=== PATIENT | male | born 1955 | race Caucasian/White ===

== ENCOUNTER 2019-01-04 20:34 | Inpatient (IN) ==
[2019-01-04] MEDS ORDERED: ALBUT/IPRATROP 3MG/0.5MG NEB 3 ML VIAL NEB STA (21:19)
[2019-01-04 21:23] LABS: Basophils # (auto) 0.04 K/uL (0-0.2); Basophils % (auto) 0.3 %; Eosinophils # (auto) 0.26 K/uL (0-0.5); Eosinophils % (auto) 1.9 %; Hematocrit (blood only) 29.7 % (42-52); Hemoglobin 9.8 g/dL (14.0-18.0); Immature Granulocytes # (auto) 0.05 K/uL (0.00-0.02); Immature Granulocytes % (auto) 0.4 %; Lymphocytes # (auto) 1.17 K/uL (1.2-3.4); Lymphocytes % (auto) 8.5 %; Mean Corpuscular Volume 93.1 fL (80-100); Mean Platelet Volume 9.9 fL (7.4-10.4); Monocytes # (auto) 1.04 K/uL (0.11-0.59); Monocytes % (auto) 7.5 %; Neutrophils # (auto) 11.25 K/uL (1.4-6.5); Neutrophils % (auto) 81.4 %; Platelet Count 245 K/uL (130-400); RDW Coefficient of Variation 14.4 % (11.5-14.5); RDW Standard Deviation 49.1 fL (36.4-46.3); Red Blood Count 3.19 M/uL (4.7-6.1); White Blood Count 13.81 K/uL (4.8-10.8)
--- NOTE | 2019-01-04 21:30 | XRay Report ---
SINGLE VIEW CHEST CLINICAL HISTORY: Dyspnea. Wheezing. Lower extremity edema FINDINGS: An AP, portable, upright chest radiograph is compared to study dated 12/22/2018. The examina tion is degraded by portable technique, apical lordotic positioning, and patient rotation. The hear t is enlarged. There is pulmonary vascular congestion. Bibasilar atelectasis is observed. No large pl eural effusion is identified. No pneumothorax is seen. The skeletal structures appear osteopenic. The bony thorax is grossly intact. IMPRESSION: Cardiomegaly with evidence of mild congestive failure. Electronically signed by: Theron Veronica M.D. 01/04/2019 9:29 PM
[2019-01-04 21:37] LABS: INR 1.1 (0.9-1.1); Prothrombin Time 11.4 Seconds (9.0-12.0)
[2019-01-04 21:39] LABS: BUN Creatinine Ratio 16.4 (10-20); Blood Urea Nitrogen 25 mg/dl (7-18); Calcium 9.6 mg/dl (8.5-10.1); Carbon Dioxide 27 mmol/L (21-32); Chloride 107 mmol/L (98-107); Creatinine Clr Calc Pharmacy 89.2 ml/min; Est GFR (African American) 55.6; Glucose 95 mg/dl (70-99); NT Pro B Type Natriuretic Pept 713 pg/ml (0-900); Sodium 143 mmol/L (136-145); Troponin I < 0.015 ng/ml (0-0.045)
[2019-01-04 21:46] LABS: Magnesium 1.5 mg/dl (1.8-2.4)
[2019-01-04] MEDS ORDERED: VANCOMYCIN CONSULT ACTIVE PRN (22:27)
[2019-01-04] MEDS ORDERED: VANCOMYCIN HCL 2,750 MG in SODIUM CHLORIDE 0.9% 500 ML IV ONE (22:27)
--- NOTE | 2019-01-04 22:27 | Ultrasound Report ---
ULTRASOUND BILATERAL LOWER EXTREMITY VENOUS CLINICAL HISTORY: Lower extremity edema. COMPARISON STUDY: No priors. TECHNIQUE: Real-time, grayscale, and color Doppler sonography of the deep veins of the right and left lower extremity was performed from the inguinal crease to the calf. Compression and augmentation wer e utilized. FINDINGS: There is no sonographic evidence of deep venous thrombosis identified in the right or left lower extremity. The common femoral, superficial femoral, and popliteal veins are patent and normally compressible bilaterally. The greater saphenous vein and the profunda femoris vein at the junction w ith the common femoral vein are clear in both legs. The visualized calf veins are patent bilaterally. Soft tissue edema is seen in the calves. IMPRESSION: There is no sonographic evidence of deep venous thrombosis identified in the right or lef t lower extremity. Electronically signed by: Theron Veronica M.D. 01/04/2019 10:26 PM
[2019-01-04] MEDS ORDERED: MAGNESIUM SULFATE / D5W 1 GM/100 ML BAG IV ONE (22:29)
--- NOTE | 2019-01-04 22:58 | Emergency Department Note ---
Entered by Haim Bourgeois acting as a scribe for History of Present Illness General Chief complaint: Edema To Extremity Stated complaint: EDEMA TO LOWER LEGS & FEET Time Seen by Provider: 01/04/19 21:11 Source: patient History of Present Illness Provider complaint: Lower extremity edema Onset (ago): month(s) 1 Location: lower extremity, left and right Pain Consistency: + constant Maximum Pain Intensity: 7 Current Pain Intensity: 7 Relieved By: + none Exacerbated By: + none Associated symptoms: + shortness of breath; no fever/chills The patient is a 63 year old male who presents to the Emergency Room with complaints of constant bilateral lower extremity swelling that started about a month ago. The patient states he also has pain in the area that he rates a 7/10. With his lower extremity symptoms he also has been somewhat short of breath. The patient notes he was seen here in the ED a couple weeks ago where he received antibiotics. He states he has been using them but he has not noticed any improvement of his symptoms. The patient denies any fevers as well as any use of blood thinners. Home Medications Home Medications Medication Instructions Recorded Confirmed Type albuterol sulfate 2 puff INHALATION QID PRN 12/22/18 01/04/19 History allopurinol 300 mg PO DAILY 12/22/18 01/04/19 History atorvastatin 40 mg PO DAILY 12/22/18 01/04/19 History bumetanide See Rx Instructions .ROUTE .COMPLEX 12/22/18 01/04/19 History calcitriol [Rocaltrol] 0.5 mcg PO DAILY 12/22/18 01/04/19 History carvedilol [Coreg] 50 mg PO BID 12/22/18 01/04/19 History cholecalciferol (vitamin D3) 4,000 unit PO DAILY 12/22/18 01/04/19 History [Vitamin D3] clonidine [Ptnodvtx-PHQ-2] 1 patch TOPICAL WK 12/22/18 01/04/19 History duloxetine [Cymbalta] 30 mg PO DAILY 12/22/18 01/04/19 History ferrous sulfate [Iron (ferrous 325 mg PO BID 12/22/18 01/04/19 History sulfate)] glipizide [Glucotrol XL] 2.5 mg PO DAILY 12/22/18 01/04/19 History hydralazine 50 mg PO TID 12/22/18 01/04/19 History minoxidil 2.5 mg PO BID 12/22/18 01/04/19 History montelukast [Singulair] 10 mg PO QPM 12/22/18 01/04/19 History potassium chloride [Klor-Con M20] 20 meq PO BID 12/22/18 01/04/19 History sertraline 100 mg PO DAILY 12/22/18 01/04/19 History tiotropium bromide [Spiriva 2 puff INHALATION DAILY 12/22/18 01/04/19 History Respimat] amoxicillin-pot clavulanate 1 tab PO Q12H 01/04/19 01/04/19 History [Augmentin] Allergies Allergy/AdvReac Type Severity Reaction Status Date / Time No Known Allergies Allergy Verified 01/04/19 21:36 Past Med/Surg History Medical History CHF (congestive heart failure) (Chronic) Diabetes (Chronic) Hyperlipidemia (Chronic) Hypertension (Chronic) Family History Other No pertinent family history in first degree relatives Social History Feels Safe at Home: Yes Smoking Status: Never smoker Review of Systems See HPI for pertinent positives & negatives. and A total of 10 systems reviewed and were otherwise negative Physical Exam Vital Signs Vital Signs - 24 hr 01/04/19 20:39 01/04/19 20:48 01/04/19 20:57 Temperature 36.6 C Temperature Source Oral Sepsis Recent Fever Within 48 Hours No Sepsis Action Taken by Nursing No Action Required Pulse Rate 79 78 83 Pulse Rate [Finger] Pulse Rate from SpO2 Sensor 78 79 Pulse Rhythm Regular Pulse Strength Normal Respiratory Rate 19 22 12 Respiratory Effort / Characteristics Non-Labored Respiratory Depth Normal Blood Pressure 171/69 H 171/69 H Blood Pressure Mean 103 103 Blood Pressure Position Lying Pulse Oximetry 97 97 95 Oxygen Delivery Method Room Air 01/04/19 21:00 01/04/19 21:28 01/04/19 21:30 Temperature Temperature Source Sepsis Recent Fever Within 48 Hours Sepsis Action Taken by Nursing Pulse Rate 81 79 Pulse Rate [Finger] 81 Pulse Rate from SpO2 Sensor 81 79 Pulse Rhythm Pulse Strength Respiratory Rate 16 20 15 Respiratory Effort / Characteristics Non-Labored Spontaneous Respiratory Depth Blood Pressure 155/63 H 163/68 H Blood Pressure Mean 93 99 Blood Pressure Position Pulse Oximetry 97 94 100 Oxygen Delivery Method Room Air 01/04/19 22:32 Temperature Temperature Source Sepsis Recent Fever Within 48 Hours Sepsis Action Taken by Nursing Pulse Rate 79 Pulse Rate [Finger] Pulse Rate from SpO2 Sensor Pulse Rhythm Pulse Strength Respiratory Rate 17 Respiratory Effort / Characteristics Respiratory Depth Blood Pressure 159/86 H Blood Pressure Mean 110 Blood Pressure Position Pulse Oximetry Oxygen Delivery Method HENT: Exam performed. - Head: Normocephalic and atraumatic. - Right Ear: External ear normal. No mastoid tenderness. - Left Ear: External ear normal. No mastoid tenderness. - Mouth/Throat: The oropharynx is clear and moist. No trismus in the jaw. No dental abscesses or uvula swelling. No oropharyngeal exudate or tonsillar abscesses. EYES: Conjunctivae and EOM are normal. Pupils are equal, round, and reactive to light. Right eye exhibits no discharge. Left eye exhibits no discharge. No scleral icterus. NECK: Normal range of motion. Neck supple. No JVD present. No spinous process tenderness present. No carotid bruit present. No rigidity. No tracheal deviation and normal range of motion present. No Brudzinski's sign and no Kernig's sign noted. CV: Normal rate, regular rhythm, normal heart sounds and intact distal pulses. There is no peripheral edema. Palpable radial pulses bue. PULM/CHEST: Effort normal and breath sounds normal. No respiratory distress. No stridor. Bilateral expiratory wheezes. He has no rales. - Chest Wall: He exhibits no tenderness. ABD: Abdomen is obese. The abdomen is soft. Bowel sounds are normal. He has no distension. No mass is present. There is no tenderness. There is no rebound, no guarding, no Horton's sign and no tenderness at McBurney's point. Rovsig negative. MUSC/SKEL: 3+ pitting edema of the bilateral lower extremities with erythema streaking up his RLE. Several scattered bullae that are actively draining on bilateral lower extremities. LYMPH: No cervical adenopathy. NEURO: He is alert and oriented to person, place, and time. He has normal strength. No cranial nerve deficit or sensory deficit. Coordination and gait normal. GCS eye subscore is 4. GCS verbal subscore is 5. GCS motor subscore is 6. Cerebellar tests wnl. PSYCH: He has a normal mood and affect. Behavior is normal. Judgment and thought content normal. Course 2110: Past medical records reviewed. The patient was evaluated in room C06, and a complete history and physical examination were performed.The patient's EMR was review which showed the patient was seen in the ED on December 22 for worsening bilateral lower extremity swelling. His potassium at this time was 2.9. His white count and lactic acid was WNL. The chest x-ray showed patchy air space consolidation at both lung bases. The patient was given a dose of Vancomycin and discharged with Doxycycline. 2231: Vital signs are stable. The patient's labs show a leukocytosis of 13.8, which is up from 10.02 during his last ED visit on December 22. The patient lactic acid is 1.3 and his magnesium is 1.5. The patient's cellulitis appears to be worsening so he will be given a dose of Vancomycin before being accepted by Dr. Chavez for further treatment. His magnesium will also be replaced. I spoke to Dr. Scott Mcelroy Hospitalist about the patient's case and he will be accepting him for further evaluation. Consultations Consultation #1: I spoke to Dr. Scott Kraus about the patient's case and he will be accepting him for further evaluation. Time: 22:26 Administered Medications Discontinued Medications Albuterol (Duoneb) 3 ml NEB NOW STA Stop: 01/04/19 21:20 Last Admin: 01/04/19 21:26 Dose: 3 ml Documented by: [id number] Medical Decision Making Medical Records Attestation: I reviewed the patient's medical records. Home Medications Current Medication List: was personally reviewed by me Laboratory Data Attestation: I reviewed the patient's lab results. Result diagrams: 01/04/19 20:53 01/04/19 20:53 Lab Results 01/04/19 01/04/19 01/04/19 Range/Units 20:53 20:53 20:53 WBC 13.81 H (4.8-10.8) K/uL RBC 3.19 L (4.7-6.1) M/uL Hgb 9.8 L (14.0-18.0) g/dL Hct 29.7 L (42-52) % MCV 93.1 (80-100) fL MCH 30.7 (25-34) pg MCHC 33.0 (32-36) g/dL RDW Std Deviation 49.1 H (36.4-46.3) fL RDW Coeff of Xin 14.4 (11.5-14.5) % Plt Count 245 (130-400) K/uL MPV 9.9 (7.4-10.4) fL Immature Gran % (Auto) 0.4 % Neut % (Auto) 81.4 % Lymph % (Auto) 8.5 % Hughes % (Auto) 7.5 % Eos % (Auto) 1.9 % Baso % (Auto) 0.3 % Immature Gran # (Auto) 0.05 H (0.00-0.02) K/uL Neut # (Auto) 11.25 H (1.4-6.5) K/uL Lymph # (Auto) 1.17 L (1.2-3.4) K/uL Hughes # (Auto) 1.04 H (0.11-0.59) K/uL Eos # (Auto) 0.26 (0-0.5) K/uL Baso # (Auto) 0.04 (0-0.2) K/uL PT (9.0-12.0) Seconds INR (0.9-1.1) APTT (21.0-31.0) Seconds PTT Ratio Sodium 143 (136-145) mmol/L Potassium 4.0 (3.5-5.1) mmol/L Chloride 107 (98-107) mmol/L Carbon Dioxide 27 (21-32) mmol/L Anion Gap 10.0 (3-11) BUN 25 H (7-18) mg/dl Creatinine 1.54 H (0.6-1.4) mg/dl Est Cr Clr Drug Dosing 89.2 ml/min Est GFR ( Amer) 55.6 Est GFR (Non-Af Amer) 48.0 BUN/Creatinine Ratio 16.4 (10-20) Glucose 95 (70-99) mg/dl Lactate 1.3 (0.4-2.0) mmol/L Calcium 9.6 (8.5-10.1) mg/dl Magnesium 1.5 L (1.8-2.4) mg/dl Troponin I < 0.015 (0-0.045) ng/ml NT-Pro-B Natriuret Pep 713 (0-900) pg/ml 01/04/19 01/04/19 Range/Units 20:53 20:53 WBC (4.8-10.8) K/uL RBC (4.7-6.1) M/uL Hgb (14.0-18.0) g/dL Hct (42-52) % MCV (80-100) fL MCH (25-34) pg MCHC (32-36) g/dL RDW Std Deviation (36.4-46.3) fL RDW Coeff of Xin (11.5-14.5) % Plt Count (130-400) K/uL MPV (7.4-10.4) fL Immature Gran % (Auto) % Neut % (Auto) % Lymph % (Auto) % Hughes % (Auto) % Eos % (Auto) % Baso % (Auto) % Immature Gran # (Auto) (0.00-0.02) K/uL Neut # (Auto) (1.4-6.5) K/uL Lymph # (Auto) (1.2-3.4) K/uL Hughes # (Auto) (0.11-0.59) K/uL Eos # (Auto) (0-0.5) K/uL Baso # (Auto) (0-0.2) K/uL PT 11.4 (9.0-12.0) Seconds INR 1.1 (0.9-1.1) APTT 27.0 (21.0-31.0) Seconds PTT Ratio 1.0 Sodium (136-145) mmol/L Potassium (3.5-5.1) mmol/L Chloride (98-107) mmol/L Carbon Dioxide (21-32) mmol/L Anion Gap (3-11) BUN (7-18) mg/dl Creatinine (0.6-1.4) mg/dl Est Cr Clr Drug Dosing ml/min Est GFR ( Amer) Est GFR (Non-Af Amer) BUN/Creatinine Ratio (10-20) Glucose (70-99) mg/dl Lactate (0.4-2.0) mmol/L Calcium (8.5-10.1) mg/dl Magnesium (1.8-2.4) mg/dl Troponin I Cancelled (0-0.045) ng/ml NT-Pro-B Natriuret Pep Cancelled (0-900) pg/ml Imaging Data Radiologist's Impression: Radiology results as stated below per my review and the radiologist's interpretation: SINGLE VIEW CHEST CLINICAL HISTORY: Dyspnea. Wheezing. Lower extremity edema FINDINGS: An AP, portable, upright chest radiograph is compared to study dated 12/22/2018. The examination is degraded by portable technique, apical lordotic positioning, and patient rotation. The heart is enlarged. There is pulmonary vascular congestion. Bibasilar atelectasis is observed. No large pleural effusion is identified. No pneumothorax is seen. The skeletal structures appear osteopenic. The bony thorax is grossly intact. IMPRESSION: Cardiomegaly with evidence of mild congestive failure. Electronically signed by: Theron Veronica M.D. 01/04/2019 9:29 PM ULTRASOUND BILATERAL LOWER EXTREMITY VENOUS CLINICAL HISTORY: Lower extremity edema. COMPARISON STUDY: No priors. TECHNIQUE: Real-time, grayscale, and color Doppler sonography of the deep veins of the right and left lower extremity was performed from the inguinal crease to the calf. Compression and augmentation were utilized. FINDINGS: There is no sonographic evidence of deep venous thrombosis identified in the right or left lower extremity. The common femoral, superficial femoral, and popliteal veins are patent and normally compressible bilaterally. The greater saphenous vein and the profunda femoris vein at the junction with the common femoral vein are clear in both legs. The visualized calf veins are patent bilaterally. Soft tissue edema is seen in the calves. IMPRESSION: There is no sonographic evidence of deep venous thrombosis identified in the right or left lower extremity. Electronically signed by: Theron Veronica M.D. 01/04/2019 10:26 PM ECG Data Attestation: I personally reviewed and interpreted this ECG as follows: Indication: SOB/dyspnea Rate (beats per minute): 79 Rhythm: normal sinus Findings: + other ([place] of 178, QRS of 140, QTC of 488, Bifascicular block present); no ST depression and no ST elevation Blood Pressure Blood Pressure Findings: Elevated blood pressure Blood Pressure Disposition: further management by hospitalist [place] Narrative 2110: Past medical records reviewed. The patient was evaluated in room C06, and a complete history and physical examination were performed.The patient's EMR was review which showed the patient was seen in the ED on December 22 for worsening bilateral lower extremity swelling. His potassium at this time was 2.9. His white count and lactic acid was WNL. The chest x-ray showed patchy air space consolidation at both lung bases. The patient was given a dose of Vancomycin and discharged with Doxycycline. 2232: Vital signs are stable. The patient's labs show a leukocytosis of 13.8, which is up from 10.02 during his last ED visit on December 22. The patient lactic acid is 1.3 and his magnesium is 1.5. The patient's cellulitis appears to be worsening so he will be given a dose of Vancomycin before being accepted by Dr. Chavez for further treatment. His magnesium will also be replaced. I spoke to Dr. Chavez - [facility] Hospitalist about the patient's case and he will be accepting him for further evaluation. Impression & Plan Bilateral cellulitis of lower leg, Failure of outpatient treatment Discharge Plan Visit Data Chief Complaint: Edema To Extremity Stated Complaint: EDEMA TO LOWER LEGS & FEET ED Provider: Severiano Bhakta Discharge Problem: Bilateral cellulitis of lower leg, Failure of outpatient treatment Patient Disposition: Being Evaluated by Hospitalist Forms Stand Alone Forms: My [facility] Prescriptions Prescriptions: No Action atorvastatin 40 mg Tablet 40 mg PO DAILY RF: 0 carvedilol [Coreg] 25 mg tablet 50 mg PO BID RF: 0 sertraline 100 mg Tablet 100 mg PO DAILY RF: 0 hydralazine 25 mg Tablet 50 mg PO TID RF: 0 minoxidil 2.5 mg tablet 2.5 mg PO BID RF: 0 potassium chloride [Klor-Con M20] 20 mEq tablet,ER particles/crystals 20 meq PO BID RF: 0 glipizide [Glucotrol XL] 2.5 mg tablet extended release 24hr 2.5 mg PO DAILY RF: 0 ferrous sulfate [Iron (ferrous sulfate)] 325 mg (65 mg iron) tablet 325 mg PO BID RF: 0 bumetanide 1 mg tablet See Rx Instructions .ROUTE .COMPLEX RF: 0 montelukast [Singulair] 10 mg tablet 10 mg PO QPM RF: 0 allopurinol 300 mg Tablet 300 mg PO DAILY RF: 0 clonidine [Nppsaifv-JEV-7] 0.3 mg/24 hr patch weekly 1 patch topical WK RF: 0 albuterol sulfate 90 mcg/actuation Hfa Aerosol Inhaler 2 puff INHALATION QID PRN (Reason: Shortness Of Breath Or Wheezing) RF: 0 calcitriol [Rocaltrol] 0.25 mcg capsule 0.5 mcg PO DAILY RF: 0 duloxetine [Cymbalta] 30 mg capsule,delayed release(DR/EC) 30 mg PO DAILY RF: 0 cholecalciferol (vitamin D3) [Vitamin D3] 1,000 unit Tablet 4,000 unit PO DAILY RF: 0 Spiriva Respimat 1.25 mcg/actuation mist 2 puff inhalation DAILY RF: 0 amoxicillin-pot clavulanate [Augmentin] 875-125 mg Tablet 1 tab PO Q12H RF: 0 Referrals Referrals: Comfort Almanzar PA-C [Primary Care Provider] - The scribe's documentation has been prepared under my direction and personally reviewed by me in its entirety. I confirm that the note above accurately reflects all work, treatment, procedures, and medical decision making performed by me.
[2019-01-05] MEDS ORDERED: PIPERACILLIN/TAZOBACTAM 4.5 GM in DEXTROSE 5% 100 ML IV ONE (00:42)
[2019-01-05] MEDS ORDERED: ACETAMINOPHEN 325 MG TAB PO PRN (00:42)
[2019-01-05] MEDS ORDERED: VANCOMYCIN CONSULT ACTIVE PRN (00:42)
[2019-01-05] MEDS ORDERED: ALBUTEROL HFA 8 GM INHALER INH PRN (00:42)
[2019-01-05] MEDS ORDERED: VANCOMYCIN HCL 1,000 MG in SODIUM CHLORIDE 0.9% 250 ML IV SCH (00:42)
[2019-01-05] MEDS ORDERED: PIPERACILL/TAZOBAC CONSULT ACTIVE PRN (00:42)
[2019-01-05] MEDS ORDERED: ONDANSETRON INJ 2 MG/ML 2 ML VIAL IV PRN (00:42)
[2019-01-05] MEDS ORDERED: POLYETHYLENE (MIRALAX) 17 GM PACK PO PRN (00:42)
[2019-01-05] MEDS: CHECK CLONIDINE PATCH PLACEMENT SCH ×3 (01:30→16:07)
--- NOTE | 2019-01-05 02:04 | History and Physical Report ---
DATE OF ADMISSION: 01/04/2019 CHIEF COMPLAINT: Lower extremity edema and pain in the heels. HISTORY OF PRESENT ILLNESS: This is a 63-year-old male with past medical history significant for morbid obesity, obstructive sleep apnea, but noncompliant with CPAP, diabetes, hypertension, nonobstructive coronary artery disease, hyperlipidemia, depression, who comes because of ongoing edema and erythema on the lower extremity. The patient says he has always had lower extremity edema, but since last 1 month blisters are forming and they are bursting and getting a lot of pain and also he walks with the help of cane at home, he lives alone, his heels are hurting. He was seen in the ER on 12/22/2018 and he was given a dose of vancomycin and discharged on doxycycline and advised to follow with wound care. He is from [facility]. He says he follows with wound care there, but is not getting better. He came back to the ER today in ER white count is 13,000. His hemodynamics are stable. The patient denies any headache, no blurred vision, no earache, no runny nose, no sore throat, no difficulty swallowing. Appetite is okay. Sleeps in a chair. He says using CPAP causes congestion and not using it. Denies shortness of breath. No cough, no fever, no chills, no nausea, no abdominal pain. Normal bowel and bladder movements. No blood in the stools, no black stools, no hematuria, no burning micturitions. Patient lives alone, but he has nurses who come and help him. ALLERGIES: No known drug allergies. PAST MEDICAL HISTORY: As mentioned above. PAST SURGICAL HISTORY: The patient had arthroscopy of the left knee. MEDICATIONS: The patient is on albuterol 2 puffs inhalation q.i.d. p.r.n., allopurinol 300 mg p.o. daily, Augmentin 1 tablet b.i.d., atorvastatin 40 mg p.o. daily, Bumex as directed, calcitriol 0.5 mcg p.o. daily, Coreg 50 mg p.o. b.i.d., vitamin D 4000 units p.o. daily, clonidine patch topically weekly, Cymbalta 30 mg p.o. daily, ferrous sulfate 325 mg p.o. b.i.d., glipizide 2.5 mg p.o. daily, hydralazine 50 mg p.o. t.i.d., minoxidil 2.5 mg p.o. b.i.d., Singulair 10 mg p.o. daily, potassium chloride 20 mEq p.o. b.i.d., sertraline 100 mg p.o. daily, Spiriva 2 puffs inhalation daily. FAMILY HISTORY: Significant for father of throat cancer, mother had cancer. SOCIAL HISTORY: Denies smoking. Alcohol occasional. Lives alone. REVIEW OF SYMPTOMS: As per HPI. Rest of review of symptoms negative. PHYSICAL EXAMINATION: GENERAL: The patient is morbidly obese, not in acute distress. VITAL SIGNS: Temperature 36.6, pulse 80, respiratory rate 21, blood pressure 140/59, oxygen 100% on room air. HEENT: No pallor, no icterus. Pupils equal, round, reactive to light. NECK: No JVD, no neck masses, no carotid bruits. CARDIOVASCULAR: S1, S2 heard, regular rate and rhythm, no murmur, no gallop. RESPIRATORY SYSTEM: Normal AP diameter. No accessory muscle use. Bilateral occasional wheezing, no crackles. ABDOMEN: Soft, bowel sounds present, nontender. No distention. CENTRAL NERVOUS SYSTEM: Cranial nerves II-XII grossly intact, nonfocal. EXTREMITIES: Bilateral lower extremity edema and erythema seen with blisters and gross edema and some fluid collection in his bilateral heels. LABORATORY DATA: WBC 13.8, hemoglobin 10.8, hematocrit 29.7, platelets 245. PT 11.4, INR 1.1, APTT 27. Sodium 143, potassium 4, chloride 107, carbon dioxide 27, BUN 25, creatinine 1.5, serum glucose 95, lactate 1.3, calcium 9.6, magnesium 1.5. Troponin I less than 0.015. BNP is 713. IMAGING DATA: Venous Doppler, no DVT. Chest x-ray, cardiomegaly with evidence of mild congestive failure. ASSESSMENT AND PLAN: This is a 63-year-old male who presents with lower extremity edema and cellulitis. 1. Bilateral lower extremity cellulitis. The patient has history of diabetes, possible congestive heart failure. Has some blisters and also some fluid collections in bilateral heels. Failed outpatient treatment with doxycycline. We will place him on IV vancomycin, IV Zosyn. Follow the cultures. We will also consult surgery for possible drainage of his fluid collection in the bilateral heels and ID for help with antibiotics and follow the response. Will also consult wound care. The patient may need to go to a custodial or home health on discharge. Social service to help with discharge planning. 2. Morbid obesity, obstructive sleep apnea, noncompliant with CPAP. We will monitor in the hospital, needs counseling. 3. Diabetes. Hold his home p.o. medication. Placed him on sliding scale insulin and Lantus and follow the blood sugars. The patient is currently n.p.o. for possible procedures. 4. History of nonobstructive coronary artery disease. The patient is on statin and Coreg. 5. History of hypertension. Continue his clonidine patch, Coreg, diuretics, hydralazine, and minoxidil. Monitor the blood pressure. 6. Possible history of congestive heart failure. The patient is on Bumex and Coreg. The patient might have right-sided heart failure from his obstructive sleep apnea. We will follow the echocardiogram. I's and O's. 7. Acute kidney injury on chronic kidney stage III. Last in the ER creatinine was 1.3, presently creatinine is 1.5. He is on high dose of Bumex. We will monitor the labs in a.m. and adjust the Bumex. 8. Deep venous thrombosis prophylaxis. Heparin subQ for now. 9. Disposition: Admit to medical floor. Level 1 full code. PT and OT prior to discharge. Social Service to help with discharge planning. HOMERO
[2019-01-05 06:11] LABS: Basophils # (auto) 0.01 K/uL (0-0.2); Basophils % (auto) 0.1 %; Eosinophils # (auto) 0.15 K/uL (0-0.5); Eosinophils % (auto) 1.4 %; Hematocrit (blood only) 29.2 % (42-52); Hemoglobin 9.4 g/dL (14.0-18.0); Immature Granulocytes # (auto) 0.04 K/uL (0.00-0.02); Immature Granulocytes % (auto) 0.4 %; Lymphocytes # (auto) 0.89 K/uL (1.2-3.4); Lymphocytes % (auto) 8.6 %; Mean Corpuscular Hgb Conc 32.2 g/dL (32-36); Mean Platelet Volume 9.6 fL (7.4-10.4); Monocytes # (auto) 0.74 K/uL (0.11-0.59); Monocytes % (auto) 7.1 %; Neutrophils # (auto) 8.55 K/uL (1.4-6.5); Neutrophils % (auto) 82.4 %; Platelet Count 187 K/uL (130-400); RDW Coefficient of Variation 14.6 % (11.5-14.5); RDW Standard Deviation 49.6 fL (36.4-46.3); Red Blood Count 3.14 M/uL (4.7-6.1); White Blood Count 10.38 K/uL (4.8-10.8)
[2019-01-05] MEDS: HEPARIN SOD 5,000 UNIT/0.5 ML VIAL SQ SCH ×3 (06:11→20:52)
[2019-01-05] MEDS: PIPERACILLIN/TAZOBACTAM 4.5 GM in DEXTROSE 5% 100 ML IV SCH ×3 (06:12→22:23)
[2019-01-05 06:51] LABS: BUN Creatinine Ratio 16.5 (10-20); Calcium 8.9 mg/dl (8.5-10.1); Creatinine Clr Calc Pharmacy 100.4 ml/min; Est GFR (African American) 63.5; Est GFR (Non-African American) 54.8; Estimated Average Glucose 146 mg/dl; Hemoglobin A1C 6.7 % (4.5-5.6); Magnesium 1.7 mg/dl (1.8-2.4); Potassium 3.5 mmol/L (3.5-5.1)
[2019-01-05] MEDS ORDERED: MAGNESIUM SULFATE / D5W 1 GM/100 ML BAG IV ONE (07:01)
[2019-01-05] MEDS ORDERED: ALBUTEROL 0.5% NEB SOLN 2.5 MG/0.5 ML VIAL NEB STA (08:00)
--- NOTE | 2019-01-05 08:07 | Surgery Consultation ---
Date of Consultation January 05, 2019 Assessment & Plan (1) Bilateral cellulitis of lower le year-old morbid obese male who presented to emergency department with increasing swelling and pain of bilateral lower extremities for 1 month. Presented to emergency department on December 22 with same symptoms and given prescription for doxycycline at the time. States pain and swelling has been increasing, unable to walk given pain. Multiple blisters that drain. Occasional shortness of breath with activity. CXR showing cardiomegaly with mild congestive failure. On diuretic therapy. Examination today shows extensive bilateral lower extremity swelling, induration, and erythema consistent with cellulitis. Multiple fluid filled blisters and a open blisters with serous drainage. Fluid collections of bilateral ankles and heels likely due to edema. No fluctuance to suggest abscess. Plan: No surgical indication for I&D of bilateral ankles/heels. Fluid likely secondary to edema and cellulitis. Unlikely of abscess. Recommend continue IV antibiotics for cellulitis Management of CHF and fluid balance to help with lower extremity edema Recommend elevating legs if patient can tolerate since unable to apply compression stockings due to pain and blisters Wound care/wound nurse consult Dr. Ivory has seen and examined patient, agrees with above. Supervising Physician Co-Signing Physician Notes I have interviewed this patient and examined him and I agree with the above note. The patient has blisters but they do not appear to have purulent drainage. I do not feel there is any need for surgical intervention at this time and agree with conservative management including intravenous antibiotics. History of Present Illness Reason for Consultation: Bilateral lower extremity edema, cellulitis, fluid collections of bilateral heels Requesting Physician: Dr. Chavez Attending Physician: Ori Zhao MD History of Present Illness Haim is a 63 year-old obese male who presented to emergency department with increasing bilateral lower extremity swelling and pain. Haim states the swelling started to increase and blisters started forming about 1 month ago. States he has had swelling of his legs prior but not this bad. States it was causing burning sensation down his legs into his feet and caused difficulty walking. States he takes Bumex twice a day. Also states he has noticed shortness of breath along with the swelling, more so on activity. Not at rest. Has history of obstructive sleep apnea, but noncompliant with CPAP, diabetes, hypertension, nonobstructive coronary artery disease, hyperlipidemia, depression. Chest xray showing cardiomegaly and mild congestive failure. He was seen in emergency department on December 22 for increasing bilateral lower ext remity pain and swelling. Was placed on doxycycline and sent home. States the pain has not been getting better. Allergies Allergy/AdvReac Type Severity Reaction Status Date / Time No Known Allergies Allergy Verified 01/04/19 21:36 Home Medications Home Medications Medication Instructions Recorded Confirmed Type albuterol sulfate 2 puff INHALATION QID PRN 12/22/18 01/04/19 History allopurinol 300 mg PO DAILY 12/22/18 01/04/19 History atorvastatin 40 mg PO DAILY 12/22/18 01/04/19 History bumetanide See Rx Instructions .ROUTE .COMPLEX 12/22/18 01/04/19 History calcitriol [Rocaltrol] 0.5 mcg PO DAILY 12/22/18 01/04/19 History carvedilol [Coreg] 50 mg PO BID 12/22/18 01/04/19 History cholecalciferol (vitamin D3) 4,000 unit PO DAILY 12/22/18 01/04/19 History [Vitamin D3] clonidine [Cfrmligq-KUR-8] 1 patch TOPICAL WK 12/22/18 01/04/19 History duloxetine [Cymbalta] 30 mg PO DAILY 12/22/18 01/04/19 History ferrous sulfate [Iron (ferrous 325 mg PO BID 12/22/18 01/04/19 History sulfate)] glipizide [Glucotrol XL] 2.5 mg PO DAILY 12/22/18 01/04/19 History hydralazine 50 mg PO TID 12/22/18 01/04/19 History minoxidil 2.5 mg PO BID 12/22/18 01/04/19 History montelukast [Singulair] 10 mg PO QPM 12/22/18 01/04/19 History potassium chloride [Klor-Con M20] 20 meq PO BID 12/22/18 01/04/19 History sertraline 100 mg PO DAILY 12/22/18 01/04/19 History tiotropium bromide [Spiriva 2 puff INHALATION DAILY 12/22/18 01/04/19 History Respimat] amoxicillin-pot clavulanate 1 tab PO Q12H 01/04/19 01/04/19 History [Augmentin] Patient History Medical History Coronary artery disease (Chronic) Depression (Chronic) Morbid obesity (Chronic) Sleep apnea (Chronic) CHF (congestive heart failure) (Chronic) Diabetes (Chronic) Hyperlipidemia (Chronic) Hypertension (Chronic) Family History Other No pertinent family history in first degree relatives Social History Preferred Language: Indonesian Communication Ability: Effective 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 Beliefs That Will Affect Care: None marital status: Single Current Living Situation: Alone Feels Safe at Home: Yes Safety Concerns: Feels Safe At This Time Smoking Status: Never smoker Review of Systems Review of Systems: All systems reviewed & are unremarkable except as noted in HPI & below Physical Exam Constitutional: WD/WN, vitals as above + morbidly obese sleeping upon entering room Respiratory: normal respiratory effort, lungs clear to auscultation no labored breathing, no retractions and does not use accessory muscles Cardiovascular: RRR, no murmur, no edema Musculoskeletal: Bilateral lower extremities: + 2 pitting edema of bilateral extremities with cellulitis up to mid culver and multiple fluid filled blisters. There is induration present. Fluid collections of the bilateral ankles/into heels with induration however no fluctuance. Skin: per musculoskeletal section of the lower extremities Psychiatric: Orientation: alert and oriented x 3 Affect: + flat affect Results & Data Vital Signs (Past 12 Hours) Vital Signs Temp Pulse Pulse Resp BP BP Pulse Ox 01/05/19 07:20 36.8 C 76 20 176/66 H 98 01/05/19 00:31 36.6 C 81 16 151/68 H 98 01/05/19 00:30 36.6 C 81 16 151/68 H 98 01/05/19 00:12 78 19 98 01/04/19 23:00 80 21 140/59 L 01/04/19 22:32 79 17 159/86 H 01/04/19 21:30 79 15 163/68 H 100 01/04/19 21:28 81 20 94 01/04/19 21:00 81 16 155/63 H 97 01/04/19 20:57 36.6 C 83 12 171/69 H 95 01/04/19 20:48 78 22 97 01/04/19 20:39 79 19 171/69 H 97 Laboratory Results 01/05/19 01/05/19 01/05/19 Range/Units 07:52 05:26 05:26 WBC (4.8-10.8) K/uL RBC (4.7-6.1) M/uL Hgb (14.0-18.0) g/dL Hct (42-52) % MCV (80-100) fL MCH (25-34) pg MCHC (32-36) g/dL RDW Std Deviation (36.4-46.3) fL RDW Coeff of Xin (11.5-14.5) % Plt Count (130-400) K/uL MPV (7.4-10.4) fL Immature Gran % (Auto) % Neut % (Auto) % Lymph % (Auto) % Gregory % (Auto) % Eos % (Auto) % Baso % (Auto) % Immature Gran # (Auto) (0.00-0.02) K/uL Neut # (Auto) (1.4-6.5) K/uL Lymph # (Auto) (1.2-3.4) K/uL Gregory # (Auto) (0.11-0.59) K/uL Eos # (Auto) (0-0.5) K/uL Baso # (Auto) (0-0.2) K/uL PT (9.0-12.0) Seconds INR (0.9-1.1) APTT (21.0-31.0) Seconds PTT Ratio Sodium 142 (136-145) mmol/L Potassium 3.5 (3.5-5.1) mmol/L Chloride 106 (98-107) mmol/L Carbon Dioxide 29 (21-32) mmol/L Anion Gap 7.0 (3-11) BUN 23 H (7-18) mg/dl Creatinine 1.38 (0.6-1.4) mg/dl Est Cr Clr Drug Dosing 100.4 ml/min Est GFR ( Amer) 63.5 Est GFR (Non-Af Amer) 54.8 BUN/Creatinine Ratio 16.5 (10-20) Glucose 112 H (70-99) mg/dl POC Glucose 135 H (70-99) Estimat Average Glucose 146 mg/dl Hemoglobin A1c 6.7 H (4.5-5.6) % Lactate (0.4-2.0) mmol/L Calcium 8.9 (8.5-10.1) mg/dl Magnesium 1.7 L (1.8-2.4) mg/dl Troponin I (0-0.045) ng/ml NT-Pro-B Natriuret Pep (0-900) pg/ml 01/05/19 01/04/19 01/04/19 Range/Units 05:26 20:53 20:53 WBC 10.38 (4.8-10.8) K/uL RBC 3.14 L (4.7-6.1) M/uL Hgb 9.4 L (14.0-18.0) g/dL Hct 29.2 L (42-52) % MCV 93.0 (80-100) fL MCH 29.9 (25-34) pg MCHC 32.2 (32-36) g/dL RDW Std Deviation 49.6 H (36.4-46.3) fL RDW Coeff of Xin 14.6 H (11.5-14.5) % Plt Count 187 (130-400) K/uL MPV 9.6 (7.4-10.4) fL Immature Gran % (Auto) 0.4 % Neut % (Auto) 82.4 % Lymph % (Auto) 8.6 % Gregory % (Auto) 7.1 % Eos % (Auto) 1.4 % Baso % (Auto) 0.1 % Immature Gran # (Auto) 0.04 H (0.00-0.02) K/uL Neut # (Auto) 8.55 H (1.4-6.5) K/uL Lymph # (Auto) 0.89 L (1.2-3.4) K/uL Gregory # (Auto) 0.74 H (0.11-0.59) K/uL Eos # (Auto) 0.15 (0-0.5) K/uL Baso # (Auto) 0.01 (0-0.2) K/uL PT 11.4 (9.0-12.0) Seconds INR 1.1 (0.9-1.1) APTT 27.0 (21.0-31.0) Seconds PTT Ratio 1.0 Sodium (136-145) mmol/L Potassium (3.5-5.1) mmol/L Chloride (98-107) mmol/L Carbon Dioxide (21-32) mmol/L Anion Gap (3-11) BUN (7-18) mg/dl Creatinine (0.6-1.4) mg/dl Est Cr Clr Drug Dosing ml/min Est GFR ( Amer) Est GFR (Non-Af Amer) BUN/Creatinine Ratio (10-20) Glucose (70-99) mg/dl POC Glucose (70-99) Estimat Average Glucose mg/dl Hemoglobin A1c (4.5-5.6) % Lactate (0.4-2.0) mmol/L Calcium (8.5-10.1) mg/dl Magnesium (1.8-2.4) mg/dl Troponin I Cancelled (0-0.045) ng/ml NT-Pro-B Natriuret Pep Cancelled (0-900) pg/ml 01/04/19 01/04/19 01/04/19 Range/Units 20:53 20:53 20:53 WBC 13.81 H (4.8-10.8) K/uL RBC 3.19 L (4.7-6.1) M/uL Hgb 9.8 L (14.0-18.0) g/dL Hct 29.7 L (42-52) % MCV 93.1 (80-100) fL MCH 30.7 (25-34) pg MCHC 33.0 (32-36) g/dL RDW Std Deviation 49.1 H (36.4-46.3) fL RDW Coeff of Xin 14.4 (11.5-14.5) % Plt Count 245 (130-400) K/uL MPV 9.9 (7.4-10.4) fL Immature Gran % (Auto) 0.4 % Neut % (Auto) 81.4 % Lymph % (Auto) 8.5 % Gregory % (Auto) 7.5 % Eos % (Auto) 1.9 % Baso % (Auto) 0.3 % Immature Gran # (Auto) 0.05 H (0.00-0.02) K/uL Neut # (Auto) 11.25 H (1.4-6.5) K/uL Lymph # (Auto) 1.17 L (1.2-3.4) K/uL Gregory # (Auto) 1.04 H (0.11-0.59) K/uL Eos # (Auto) 0.26 (0-0.5) K/uL Baso # (Auto) 0.04 (0-0.2) K/uL PT (9.0-12.0) Seconds INR (0.9-1.1) APTT (21.0-31.0) Seconds PTT Ratio Sodium 143 (136-145) mmol/L Potassium 4.0 (3.5-5.1) mmol/L Chloride 107 (98-107) mmol/L Carbon Dioxide 27 (21-32) mmol/L Anion Gap 10.0 (3-11) BUN 25 H (7-18) mg/dl Creatinine 1.54 H (0.6-1.4) mg/dl Est Cr Clr Drug Dosing 89.2 ml/min Est GFR ( Amer) 55.6 Est GFR (Non-Af Amer) 48.0 BUN/Creatinine Ratio 16.4 (10-20) Glucose 95 (70-99) mg/dl POC Glucose (70-99) Estimat Average Glucose mg/dl Hemoglobin A1c (4.5-5.6) % Lactate 1.3 (0.4-2.0) mmol/L Calcium 9.6 (8.5-10.1) mg/dl Magnesium 1.5 L (1.8-2.4) mg/dl Troponin I < 0.015 (0-0.045) ng/ml NT-Pro-B Natriuret Pep 713 (0-900) pg/ml Diagnostic Findings SINGLE VIEW CHEST CLINICAL HISTORY: Dyspnea. Wheezing. Lower extremity edema FINDINGS: An AP, portable, upright chest radiograph is compared to study dated 12/22/2018. The examination is degraded by portable technique, apical lordotic positioning, and patient rotation. The heart is enlarged. There is pulmonary vascular congestion. Bibasilar atelectasis is observed. No large pleural effusion is identified. No pneumothorax is seen. The skeletal structures appear osteopenic. The bony thorax is grossly intact. IMPRESSION: Cardiomegaly with evidence of mild congestive failure.
[2019-01-05] MEDS ORDERED: FUROSEMIDE 40 MG/4 ML VIAL IV STA (08:20)
[2019-01-05] MEDS: FERROUS SULFATE 325 MG TAB PO SCH ×2 (08:24→20:53)
[2019-01-05] MEDS: CHOLECALCIFEROL 1,000 UNITS TAB PO SCH (08:24)
[2019-01-05] MEDS: MAGNESIUM OXIDE 400 MG TAB PO SCH (08:24)
[2019-01-05] MEDS: CARVEDILOL 25 MG TAB PO SCH ×2 (08:25→20:55)
[2019-01-05] MEDS: ATORVASTATIN 40 MG TAB PO SCH (08:25)
[2019-01-05] MEDS: POTASSIUM CHLORIDE 20 MEQ TABCR PO SCH ×2 (08:25→20:53)
[2019-01-05] MEDS: ALLOPURINOL 300 MG TAB PO SCH (08:25)
[2019-01-05] MEDS: CALCITRIOL 0.25 MCG CAPSULE PO SCH (08:25)
[2019-01-05] MEDS: DULOXETINE HCL 30 MG CAP PO SCH (08:26)
[2019-01-05] MEDS: MINOXIDIL 2.5 MG TAB PO SCH ×2 (08:26→20:52)
[2019-01-05] MEDS: SERTRALINE HCL 100 MG TABLET PO SCH (08:26)
[2019-01-05] MEDS: TIOTROPIUM BROMIDE 5 PUFF/90 MCG INH INH SCH (08:27)
[2019-01-05] MEDS ORDERED: FUROSEMIDE 40 MG in SYRINGE 0 ML IV ONE (08:30)
[2019-01-05] MEDS: INSULIN ASPART 100 UNITS/ML 3 ML PEN SC SCH ×4 (08:30→21:00)
--- NOTE | 2019-01-05 08:32 | Pharmacy Report ---
Pharmacy Abx Initial Consult - Date of Service January 05, 2019 - Pharmacy Dosing Scope Date of Consult: 01/05/19 Consultation requested by: Dr. Chavez Pharmacy is consulted to initiate vancomycin and Zosyn IV dosing therapy, order appropriate labs and adjust drug dose/frequency. - Subjective The patient is a 63 year old M admitted on 01/04/19 23:05 with lower extremity cellulitis. - Objective Height: 6 ft 1 in Weight: 195.8 kg Vital Signs (Past 12hrs): Vital Signs Temp Pulse Pulse Resp BP BP Pulse Ox 01/05/19 07:20 36.8 C 76 20 176/66 H 98 01/05/19 00:31 36.6 C 81 16 151/68 H 98 01/05/19 00:30 36.6 C 81 16 151/68 H 98 01/05/19 00:12 78 19 98 01/04/19 23:00 80 21 140/59 L 01/04/19 22:32 79 17 159/86 H 01/04/19 21:30 79 15 163/68 H 100 01/04/19 21:28 81 20 94 01/04/19 21:00 81 16 155/63 H 97 01/04/19 20:57 36.6 C 83 12 171/69 H 95 01/04/19 20:48 78 22 97 01/04/19 20:39 79 19 171/69 H 97 Lab Results (24hrs): Laboratory Tests (24 Hours) 01/05/19 01/05/19 01/04/19 05:26 05:26 20:53 WBC 10.38 Neut # (Auto) 8.55 H Creatinine 1.38 1.54 H Est Cr Clr Drug Dosing 100.4 89.2 01/04/19 20:53 WBC 13.81 H Neut # (Auto) 11.25 H Creatinine Est Cr Clr Drug Dosing Micro Results: 01/04/19 20:53 Aerobic Blood Culture - Pending Blood Anaerobic Blood Culture - Pending 01/04/19 22:59 Aerobic Blood Culture - Pending Blood Anaerobic Blood Culture - Pending - Risk Factors for Resistance * Antimicrobial use within the last 90 days (doxycycline) * follows with wound clinic for legs - Assessment & Plan Assessment 63 year old M admitted with worsening cellulitis. Seen in ED on 12/22/18 with cellulitis and discharged on doxycycline. Plan vancomycin/Zosyn for treatment of outpatient-failed cellulitis Vancomycin IV * Estimated PK Parameters: Vd 0.54 L/kg, Malvin 0.087 hr-1, t1/2 7.9 hr * Loading dose: 2750 mg (14.2 mg/kg) * Maintenance dose: 2500 mg IV (13.5 mg/kg) every 12 hours - will start 9 hours after load since low loading dose given. Patient started on Lasix 40 mg IV q8 hours this morning so concerned for recurrent kidney injury. Utilize wider dosing interval for now. * Goal trough level for cellulitis, failed outpatient therapy : 15 to 20 mcg/mL * Trough ordered for 01/06/19 * A less than traditional dose has been selected due to likelihood of drug accumulation in obese patient. Piperacillin/tazobactam * 4.5 g bolus administered over 30 minutes, then 4.5 g IV extended infusion ever y 8 hours for CrCl greater than 20 mL/min * Aggressive dosing selected due to BMI 35 or more. Verified weight with nursing as patient is up 10 kg since ER visit 2 weeks prior. Pharmacy will continue to follow and will adjust dose/frequency as necessary. Thank you.
[2019-01-05] MEDS ORDERED: INSULIN GLARGINE SOLOSTAR 100 UNITS/ML 3 ML PEN SC SCH (09:00)
[2019-01-05] MEDS ORDERED: TIOTROPIUM BROMIDE 5 PUFF/90 MCG INH INH SCH (09:00)
[2019-01-05] MEDS ORDERED: BUMETANIDE 1 MG TAB PO SCH ×2 (09:00→14:00)
--- NOTE | 2019-01-05 09:24 | Hospitalist Progress Note ---
Date of Service January 05, 2019 Assessment & Plan (1) Bilateral cellulitis of lower leg: -patient with bilateral lower extremity and blisters of the legs with clear fluid drainage -had reportedly failed outpatient treatment of the legs cellulitis with doxycycline -and empirically placed on Vancomycin and Zosyn for empiric coverage of possible underlying infection of the legs, will continue these antibiotics at this time and await blood cultures -however a significant part of symptoms such as the swelling relates to patient's obesity and likely venous insufficiency, Echocardiogram with normal systolic function with right ventricular systolic blood pressure elevated to 40 to 50 mmHg -patient takes bumex at home, will switch to Lasix 40 mg IV q8 hours while inpatient -wound care -There is no sonographic evidence of deep venous thrombosis identified in the right or left lower extremity. -general surgery evaluation requested but at this time, treatment likely non- operative Acute kidney injury on chronic kidney stage III -will expect creatinine to rise as diuretics being increased Morbid Obesity with BMI 57 -low fat, diabetes diet -PT/OT evaluations Obstructive sleep apnea -noncompliant with CPAP reported -will try CPAP at night in the hospital if patient agrees History of nonobstructive coronary artery disease Echocardiogram with normal systolic function elevated right ventricular systolic blood pressure -with right ventricular systolic blood pressure elevated to 40 to 50 mmHg -on statin and Coreg Hypertension -clonidine patch, Coreg, diuretics, hydralazine, and minoxidil Diabetes mellitus controlled without 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 Deep venous thrombosis prophylaxis. Heparin subc Full Code Subjective Obese male patient laying on bed. Has expiratory wheezes which patient reports is rather chronic. reports albuterol use at home for asthma. no acute distress. no chest pain. no palpitations, no abdomen pain. bilateral lower extremity swelling with blistering of the skin and seepage of clear fluids from the legs Physical Exam Constitutional: + obese Eyes: PERRL, conjunctivae normal, anicteric sclerae EOM intact bilaterally ENMT: external ear and nose normal, oropharynx normal Neck: trachea midline, no thyromegaly Respiratory: normal respiratory effort Auscultation: + wheezes Cardiovascular: Rate/Rhythm: regular rate and regular rhythm Extremities: + edema Gastrointestinal (Abdomen): normal bowel sounds, soft, nontender, no hepatosplenomegaly Musculoskeletal: Head/Neck/Chest: normocephalic and head atraumatic Skin: bilateral lower extremity swelling with blistering of the skin and seepage of clear fluids from the legs Neurologic: PERRL, EOMI, accommodation nl, no face palsy, no dysarthria CN's II-XI intact bilaterally Psychiatric: A+Ox3, euthymic affect Results & Data Vital Signs (Past 12 Hours) Vital Signs Temp Pulse Pulse Resp BP BP Pulse Ox 01/05/19 09:12 84 18 93 01/05/19 07:20 36.8 C 76 20 176/66 H 98 01/05/19 00:31 36.6 C 81 16 151/68 H 98 01/05/19 00:30 36.6 C 81 16 151/68 H 98 01/05/19 00:12 78 19 98 01/04/19 23:00 80 21 140/59 L 01/04/19 22:32 79 17 159/86 H 01/04/19 21:30 79 15 163/68 H 100 01/04/19 21:28 81 20 94
[2019-01-05] MEDS: VANCOMYCIN HCL 2,500 MG in SODIUM CHLORIDE 0.9% 500 ML IV SCH ×2 (09:44→20:49)
--- NOTE | 2019-01-05 10:40 | Infectious Disease Consult ---
Date of Consultation January 05, 2019 Assessment & Plan (1) Bilateral cellulitis of lower leg: continue IV abx, follow blood cultures. suggest wound culture. await wound care eval, would benefit from fluid management. will follow. History of Present Illness Attending Physician: Ori Zhao MD pt admitted with worsening swelling, weeping, erythema of b/l le. He recently presented to ER on 12/22 with same and was given a dose of IV vanco and was d/c on po doxy with referral to wound center for ongoing care. He did not follow with wound center. He does not feel that doxy helped. He now complains of increased pain, swellling, drainage from b/l legs. dopplers negative. afebrile since admission. Started on vanco and zosyn in ER, tolerating well. wbc 13 initially, 10 today. creat 1.3 CXR negative, Blood cultures obtained in ER, pending, previous blood cultures from ER visit on 12/22 negative and final. On my exam he states he continues to have pain and swelling, not any significant change since admission, admits to clear weeping at home. wound care eval pending. denies cp, sob, young, no n/v/d/abd pain. Allergies Allergy/AdvReac Type Severity Reaction Status Date / Time No Known Allergies Allergy Verified 01/04/19 21:36 Home Medications Home Medications Medication Instructions Recorded Confirmed Type albuterol sulfate 2 puff INHALATION QID PRN 12/22/18 01/04/19 History allopurinol 300 mg PO DAILY 12/22/18 01/04/19 History atorvastatin 40 mg PO DAILY 12/22/18 01/04/19 History bumetanide See Rx Instructions .ROUTE .COMPLEX 12/22/18 01/04/19 History calcitriol [Rocaltrol] 0.5 mcg PO DAILY 12/22/18 01/04/19 History carvedilol [Coreg] 50 mg PO BID 12/22/18 01/04/19 History cholecalciferol (vitamin D3) 4,000 unit PO DAILY 12/22/18 01/04/19 History [Vitamin D3] clonidine [Lpkdnhsq-LLE-4] 1 patch TOPICAL WK 12/22/18 01/04/19 History duloxetine [Cymbalta] 30 mg PO DAILY 12/22/18 01/04/19 History ferrous sulfate [Iron (ferrous 325 mg PO BID 12/22/18 01/04/19 History sulfate)] glipizide [Glucotrol XL] 2.5 mg PO DAILY 12/22/18 01/04/19 History hydralazine 50 mg PO TID 12/22/18 01/04/19 History minoxidil 2.5 mg PO BID 12/22/18 01/04/19 History montelukast [Singulair] 10 mg PO QPM 12/22/18 01/04/19 History potassium chloride [Klor-Con M20] 20 meq PO BID 12/22/18 01/04/19 History sertraline 100 mg PO DAILY 12/22/18 01/04/19 History tiotropium bromide [Spiriva 2 puff INHALATION DAILY 12/22/18 01/04/19 History Respimat] amoxicillin-pot clavulanate 1 tab PO Q12H 01/04/19 01/04/19 History [Augmentin] Patient History Medical History Coronary artery disease (Chronic) Depression (Chronic) Morbid obesity (Chronic) Sleep apnea (Chronic) CHF (congestive heart failure) (Chronic) Diabetes (Chronic) Hyperlipidemia (Chronic) Hypertension (Chronic) Family History Other No pertinent family history in first degree relatives Social History Preferred Language: Slovenian Communication Ability: Effective Extrusion Manager Required: No Beliefs That Will Affect Care: None Current Living Situation: Alone Feels Safe at Home: Yes Safety Concerns: Feels Safe At This Time Smoking Status: Never smoker Review of Systems Review of Systems: All systems reviewed & are unremarkable except as noted in HPI & below Physical Exam Constitutional: WD/WN, vitals as above Eyes: PERRL, conjunctivae normal, anicteric sclerae ENMT: external ear and nose normal, oropharynx normal Neck: normal visual inspection Respiratory: normal respiratory effort, lungs clear to auscultation Gastrointestinal (Abdomen): normal bowel sounds, soft, nontender, no hepatosplenomegaly Musculoskeletal: no cyanosis or clubbing, extremities motor strength 5/5 Skin: + ulcer and + wound b/l legs with warmth, significant edema, multiple blisters with clear weeping r>l, tender to light palpation, erythema superimposed on chronic skin discoloration Psychiatric: A+Ox3, euthymic affect Results & Data Vital Signs (Past 12 Hours) Vital Signs Temp Pulse Pulse Resp BP BP Pulse Ox 01/05/19 09:12 84 18 93 01/05/19 07:20 36.8 C 76 20 176/66 H 98 01/05/19 00:31 36.6 C 81 16 151/68 H 98 01/05/19 00:30 36.6 C 81 16 151/68 H 98 01/05/19 00:12 78 19 98 01/04/19 23:00 80 21 140/59 L
[2019-01-05] MEDS ORDERED: VANCOMYCIN HCL 2,500 MG in SODIUM CHLORIDE 0.9% 500 ML IV SCH (12:00)
[2019-01-05] MEDS ORDERED: VANCOMYCIN HCL 2,000 MG in SODIUM CHLORIDE 0.9% 500 ML IV SCH (14:00)
[2019-01-05] MEDS: FUROSEMIDE 40 MG in SYRINGE 0 ML IV SCH ×2 (14:31→22:23)
[2019-01-05] MEDS ORDERED: KETOROLAC TROMETHAMINE 15 MG/ML VIAL IV ONE (15:53)
[2019-01-05] MEDS ORDERED: OXYCODONE HCL IR 5 MG TAB (IMMEDIATE RELEASE) PO STA (15:53)
[2019-01-05] MEDS ORDERED: GABAPENTIN 100 MG CAP PO SCH (16:00)
[2019-01-05] MEDS ORDERED: GABAPENTIN 100 MG CAP PO STA (16:07)
[2019-01-05] MEDS: GABAPENTIN 100 MG CAP PO SCH (20:52)
[2019-01-05] MEDS: MONTELUKAST SODIUM 10 MG TABLET PO SCH (20:52)
[2019-01-06] MEDS: CHECK CLONIDINE PATCH PLACEMENT SCH ×3 (00:33→15:45)
[2019-01-06] MEDS: FUROSEMIDE 40 MG in SYRINGE 0 ML IV SCH (05:40)
[2019-01-06] MEDS: HEPARIN SOD 5,000 UNIT/0.5 ML VIAL SQ SCH ×3 (05:40→21:35)
[2019-01-06] MEDS: PIPERACILLIN/TAZOBACTAM 4.5 GM in DEXTROSE 5% 100 ML IV SCH ×3 (05:40→21:54)
[2019-01-06] MEDS: OXYCODONE HCL IR 5 MG TAB (IMMEDIATE RELEASE) PO PRN ×2 (05:45→15:42)
[2019-01-06] MEDS ORDERED: VANCOMYCIN TROUGH ONE ×2 (07:30→11:30)
[2019-01-06 07:38] LABS: Basophils # (auto) 0.02 K/uL (0-0.2); Basophils % (auto) 0.3 %; Eosinophils # (auto) 0.25 K/uL (0-0.5); Eosinophils % (auto) 3.1 %; Hematocrit (blood only) 26.2 % (42-52); Hemoglobin 8.6 g/dL (14.0-18.0); Immature Granulocytes # (auto) 0.03 K/uL (0.00-0.02); Immature Granulocytes % (auto) 0.4 %; Lymphocytes # (auto) 0.98 K/uL (1.2-3.4); Lymphocytes % (auto) 12.3 %; Mean Corpuscular Hgb Conc 32.8 g/dL (32-36); Mean Corpuscular Volume 93.2 fL (80-100); Monocytes # (auto) 0.57 K/uL (0.11-0.59); Monocytes % (auto) 7.1 %; Neutrophils # (auto) 6.15 K/uL (1.4-6.5); Neutrophils % (auto) 76.8 %; Platelet Count 154 K/uL (130-400); RDW Coefficient of Variation 14.7 % (11.5-14.5); RDW Standard Deviation 49.6 fL (36.4-46.3); Red Blood Count 2.81 M/uL (4.7-6.1)
[2019-01-06 08:09] LABS: Albumin Level 2.4 gm/dl (3.4-5.0); BUN Creatinine Ratio 14.1 (10-20); Calcium 8.9 mg/dl (8.5-10.1); Creatinine Clr Calc Pharmacy 95.3 ml/min; Est GFR (African American) 60.8; Est GFR (Non-African American) 52.5; Potassium 3.4 mmol/L (3.5-5.1)
[2019-01-06 08:12] LABS: Albumin Globulin Ratio 0.7 (0.9-2); Bilirubin,Total 0.5 mg/dl (0.2-1); Globulin 3.3 gm/dl (2.5-4.0); Total Protein 5.7 gm/dl (6.4-8.2)
--- NOTE | 2019-01-06 08:37 | Hospitalist Progress Note ---
Date of Service January 06, 2019 Assessment & Plan (1) Bilateral cellulitis of lower leg: Bilateral cellulitis of lower extremities and bilateral lower extremity edema -patient with bilateral lower extremity and blisters of the legs with clear fluid drainage -had reportedly failed outpatient treatment of the legs cellulitis with doxycycline -and empirically placed on Vancomycin and Zosyn for empiric coverage of possible underlying infection of the legs -however a significant part of symptoms such as the swelling relates to patient's obesity and likely venous insufficiency, Echocardiogram with normal systolic function with right ventricular systolic blood pressure elevated to 40 to 50 mmHg -patient takes bumex oral as 2 mg in morning and 1 mg in afternoon and 2 mg at night at home, was switched to Lasix 40 mg IV q8 hours as inpatient on 01/05/19, increase to 60 mg IV q8 hour Lasix starting 01/06/19 -wound care -There is no sonographic evidence of deep venous thrombosis identified in the right or left lower extremity. -general surgery evaluation evaluated but treatment as non-operative -as of 01/06/19 admission blood cultures are no growth to date, will send swab of serosanguinous fluid from leg and likely will have Staph skin speedy, stop vancomycin at this time unless skin culture is MRSA positive in order to preserve kidney function and because patient on IV diuretic, will continue Zosyn for now while waiting blood cultures to finalize results Acute kidney injury on chronic kidney stage III -estimated that creatinine at baseline is 1.3 based on previous December ER visit -will expect creatinine to rise as diuretics being increased Morbid Obesity with BMI 57 -low fat, diabetes diet -discussed with patient that given large body habitus and generally inability to ambulate that he may need placement after the end of hospital stay. -PT/OT evaluations Obstructive sleep apnea -noncompliant with CPAP reported -try CPAP at night in the hospital History of nonobstructive coronary artery disease Echocardiogram with normal systolic function elevated right ventricular systolic blood pressure -with right ventricular systolic blood pressure elevated to 40 to 50 mmHg -on statin and Coreg Hypertension -clonidine patch, Coreg, diuretics, hydralazine, and minoxidil Diabetes mellitus controlled without skilled nursing current use of insulin -hbA1c is 6.7 -hold home dose glipizide -while inpatient on sliding scale insulin, follow the blood sugars. Deep venous thrombosis prophylaxis. Heparin subc Full Code Subjective increase to 60 mg IV q8 hour Lasix starting 01/06/19; as of 01/06/19 admission blood cultures are no growth to date, will send swab of serosanguinous fluid from leg and likely will have Staph skin speedy, stop vancomycin at this time unless skin culture is MRSA positive in order to preserve kidney function and because patient on IV diuretic, will continue Zosyn for now while waiting blood cultures to finalize results discussed with patient that given large body habitus and generally inability to ambulate that he may need placement after the end of hospital stay. patient reports that leg pain is better today. denies chest pain. no shortness of breath. bretahing on room air. no nausea. no vomiting. no abdominal pain. no lightheadedness. no dizziness Physical Exam Constitutional: + obese Eyes: PERRL, conjunctivae normal, anicteric sclerae EOM intact bilaterally ENMT: external ear and nose normal, oropharynx normal Neck: trachea midline, no thyromegaly Respiratory: normal respiratory effort Cardiovascular: Rate/Rhythm: regular rate and regular rhythm Extremities: + edema Gastrointestinal (Abdomen): normal bowel sounds, soft, nontender, no hepatosplenomegaly Musculoskeletal: Head/Neck/Chest: normocephalic and head atraumatic Neurologic: PERRL, EOMI, accommodation nl, no face palsy, no dysarthria CN's II-XI intact bilaterally Psychiatric: A+Ox3, euthymic affect Results & Data Vital Signs (Past 12 Hours) Vital Signs Temp Pulse Resp BP Pulse Ox 01/06/19 07:16 36.4 C L 63 18 127/72 94 01/05/19 23:22 36.8 C 68 20 125/66 93 01/05/19 20:58 67 142/64 H
[2019-01-06] MEDS: DULOXETINE HCL 30 MG CAP PO SCH (08:39)
[2019-01-06] MEDS: ALLOPURINOL 300 MG TAB PO SCH (08:39)
[2019-01-06] MEDS: CARVEDILOL 25 MG TAB PO SCH ×2 (08:39→21:33)
[2019-01-06] MEDS: ATORVASTATIN 40 MG TAB PO SCH (08:39)
[2019-01-06] MEDS: FERROUS SULFATE 325 MG TAB PO SCH ×2 (08:39→21:33)
[2019-01-06] MEDS: MAGNESIUM OXIDE 400 MG TAB PO SCH ×2 (08:40→08:53)
[2019-01-06] MEDS: CALCITRIOL 0.25 MCG CAPSULE PO SCH (08:40)
[2019-01-06] MEDS: CHOLECALCIFEROL 1,000 UNITS TAB PO SCH (08:40)
[2019-01-06] MEDS: GABAPENTIN 100 MG CAP PO SCH ×3 (08:40→21:34)
[2019-01-06] MEDS: POTASSIUM CHLORIDE 20 MEQ TABCR PO SCH ×2 (08:41→21:34)
[2019-01-06] MEDS: SERTRALINE HCL 100 MG TABLET PO SCH (08:42)
[2019-01-06] MEDS: MINOXIDIL 2.5 MG TAB PO SCH ×2 (08:42→21:33)
[2019-01-06] MEDS: TIOTROPIUM BROMIDE 5 PUFF/90 MCG INH INH SCH (08:42)
[2019-01-06] MEDS: INSULIN ASPART 100 UNITS/ML 3 ML PEN SC SCH ×4 (08:44→21:36)
[2019-01-06] MEDS: POTASSIUM CHLORIDE 10 MEQ TABCR PO SCH ×2 (08:54→21:34)
[2019-01-06] MEDS ORDERED: POTASSIUM CHLORIDE 20 MEQ TABCR PO ONE (09:00)
--- NOTE | 2019-01-06 13:28 | Infectious Disease Progress Nt ---
Date of Service January 06, 2019 Assessment & Plan (1) Bilateral cellulitis of lower leg: continue IV abx if wound culture negative would suggest resume po doxy as previously rx. Suspect most symptoms related to fluid overload. follow blood cultures, negative to date. await wound care eval, would benefit from fluid management. Discussed with patient that he would benefit from wound care post d/c. he states he would prefer to follow in [place] as this is closer to home. will follow. Subjective pt seen in followup, states legs sore, somewhat better. less weeping noted, still with edema. on fluid restriction. afebrile. blood culture negative, wound culture pending, gram stain no organisms. remains on zoysn, vanco stopped, level 32. wbc 8. no abd pain, no cp, sob, n/v/d. no f/c. Review of Systems Review of Systems: All systems reviewed & are unremarkable except as noted in HPI & below Physical Exam Constitutional: WD/WN, vitals as above Eyes: PERRL, conjunctivae normal, anicteric sclerae ENMT: external ear and nose normal, oropharynx normal Neck: normal visual inspection Respiratory: normal respiratory effort, lungs clear to auscultation Gastrointestinal (Abdomen): normal bowel sounds, soft, nontender, no hepatosplenomegaly Musculoskeletal: no cyanosis or clubbing, extremities motor strength 5/5 Skin: + ulcer and + wound legs dry, no weeping noted, chronic changes and edema noted Psychiatric: A+Ox3, euthymic affect Results & Data Vital Signs (Past 12 Hours) Vital Signs Temp Pulse Resp BP BP Pulse Ox 01/06/19 10:30 36.5 C 58 L 18 152/68 H 95 01/06/19 07:16 36.4 C L 63 18 127/72 94 Laboratory Results Microbiology 01/06/19 08:10 Leg Gram Stain - Final 01/04/19 22:59 Blood Aerobic Blood Culture - Preliminary No growth in Aerobic bottle after 24 hours. 01/04/19 22:59 Blood Anaerobic Blood Culture - Preliminary No growth in Anaerobic bottle after 24 hours. 01/04/19 20:53 Blood Aerobic Blood Culture - Preliminary No growth in Aerobic bottle after 24 hours. 01/04/19 20:53 Blood Anaerobic Blood Culture - Preliminary No growth in Anaerobic bottle after 24 hours.
[2019-01-06] MEDS: FUROSEMIDE 60 MG in SYRINGE 0 ML IV SCH ×2 (15:33→21:35)
[2019-01-06] MEDS: MONTELUKAST SODIUM 10 MG TABLET PO SCH (21:33)
[2019-01-07] MEDS: OXYCODONE HCL IR 5 MG TAB (IMMEDIATE RELEASE) PO PRN ×3 (01:04→17:46)
[2019-01-07] MEDS: CHECK CLONIDINE PATCH PLACEMENT SCH ×3 (01:05→17:25)
[2019-01-07 05:48] LABS: Basophils # (auto) 0.02 K/uL (0-0.2); Basophils % (auto) 0.2 %; Eosinophils # (auto) 0.25 K/uL (0-0.5); Eosinophils % (auto) 3.1 %; Hemoglobin 8.9 g/dL (14.0-18.0); Immature Granulocytes # (auto) 0.02 K/uL (0.00-0.02); Immature Granulocytes % (auto) 0.2 %; Lymphocytes # (auto) 1.11 K/uL (1.2-3.4); Lymphocytes % (auto) 13.7 %; Mean Corpuscular Volume 91.5 fL (80-100); Mean Platelet Volume 9.3 fL (7.4-10.4); Monocytes # (auto) 0.53 K/uL (0.11-0.59); Monocytes % (auto) 6.5 %; Neutrophils % (auto) 76.3 %; Platelet Count 176 K/uL (130-400); RDW Coefficient of Variation 14.6 % (11.5-14.5); Red Blood Count 2.95 M/uL (4.7-6.1); White Blood Count 8.13 K/uL (4.8-10.8)
[2019-01-07 06:18] LABS: Albumin Level 2.3 gm/dl (3.4-5.0); BUN Creatinine Ratio 12.6 (10-20); Calcium 8.7 mg/dl (8.5-10.1); Creatinine Clr Calc Pharmacy 84.6 ml/min; Est GFR (African American) 52.3; Est GFR (Non-African American) 45.1; Magnesium 2.1 mg/dl (1.8-2.4); Potassium 3.5 mmol/L (3.5-5.1)
[2019-01-07 06:20] LABS: Albumin Globulin Ratio 0.7 (0.9-2); Bilirubin,Total 0.4 mg/dl (0.2-1); Globulin 3.5 gm/dl (2.5-4.0); Total Protein 5.8 gm/dl (6.4-8.2)
[2019-01-07] MEDS: HEPARIN SOD 5,000 UNIT/0.5 ML VIAL SQ SCH ×3 (06:22→21:52)
[2019-01-07] MEDS: FUROSEMIDE 60 MG in SYRINGE 0 ML IV SCH ×3 (06:23→21:52)
[2019-01-07] MEDS: PIPERACILLIN/TAZOBACTAM 4.5 GM in DEXTROSE 5% 100 ML IV SCH ×3 (06:23→21:56)
[2019-01-07] MEDS: CARVEDILOL 25 MG TAB PO SCH ×2 (08:42→21:49)
[2019-01-07] MEDS: FERROUS SULFATE 325 MG TAB PO SCH ×2 (08:46→21:49)
[2019-01-07] MEDS: DULOXETINE HCL 30 MG CAP PO SCH (08:46)
[2019-01-07] MEDS: POTASSIUM CHLORIDE 10 MEQ TABCR PO SCH ×2 (08:48→21:48)
[2019-01-07] MEDS: POTASSIUM CHLORIDE 20 MEQ TABCR PO SCH ×2 (08:48→21:49)
[2019-01-07] MEDS: MINOXIDIL 2.5 MG TAB PO SCH ×2 (08:49→21:50)
[2019-01-07] MEDS: ATORVASTATIN 40 MG TAB PO SCH (08:49)
[2019-01-07] MEDS: GABAPENTIN 100 MG CAP PO SCH ×3 (08:52→21:48)
[2019-01-07] MEDS: MAGNESIUM OXIDE 400 MG TAB PO SCH ×2 (08:52→09:15)
[2019-01-07] MEDS: CALCITRIOL 0.25 MCG CAPSULE PO SCH (08:53)
[2019-01-07] MEDS: TIOTROPIUM BROMIDE 5 PUFF/90 MCG INH INH SCH (08:53)
[2019-01-07] MEDS: SERTRALINE HCL 100 MG TABLET PO SCH (08:54)
[2019-01-07] MEDS: CHOLECALCIFEROL 1,000 UNITS TAB PO SCH (08:54)
[2019-01-07] MEDS: ALLOPURINOL 300 MG TAB PO SCH (08:55)
[2019-01-07] MEDS: INSULIN ASPART 100 UNITS/ML 3 ML PEN SC SCH ×4 (09:04→21:54)
[2019-01-07] MEDS ORDERED: OXYCODONE HCL IR 5 MG TAB (IMMEDIATE RELEASE) PO ONE (12:47)
--- NOTE | 2019-01-07 14:17 | Infectious Disease Progress Nt ---
Date of Service January 07, 2019 Assessment & Plan (1) Bilateral cellulitis of lower leg: continue IV abx for now. wound culture now with rare gpc, last vanco level yesterday was 32, suspect he is still theraputic. will hold additional vanco at this time and await final, may represent skin speedy. Suspect most symptoms related to fluid overload. follow blood cultures, negative to date. would benefit from fluid management. Discussed with patient that he would benefit from wound care post d/c. he states he would prefer to follow in [place] as this is closer to home. will follow. Hopefully can change to po abx in am pending final wound culture. Subjective pt seen in followup, states legs sore, somewhat better. less weeping noted, still with edema. on fluid restriction. afebrile. blood culture negative, wound culture pending, gram stain no organisms. remains on zoysn, vanco stopped, level 32. wbc 8. no abd pain, no cp, sob, n/v/d. no f/c. Review of Systems Review of Systems: All systems reviewed & are unremarkable except as noted in HPI & below Physical Exam Constitutional: WD/WN, vitals as above Eyes: PERRL, conjunctivae normal, anicteric sclerae ENMT: external ear and nose normal, oropharynx normal Neck: normal visual inspection Respiratory: normal respiratory effort, lungs clear to auscultation Gastrointestinal (Abdomen): normal bowel sounds, soft, nontender, no hepatosplenomegaly Musculoskeletal: no cyanosis or clubbing, extremities motor strength 5/5 Skin: + ulcer and + wound wounds dry, no weeping, significantly improved edema, less erythema. Psychiatric: A+Ox3, euthymic affect Results & Data Vital Signs (Past 12 Hours) Vital Signs Temp Pulse Resp BP Pulse Ox 01/07/19 13:42 136/65 01/07/19 07:45 37.0 C 64 17 159/69 H 93 Laboratory Results Microbiology 01/06/19 08:10 Leg Gram Stain - Final 01/06/19 08:10 Leg Wound Culture - Preliminary Gram positive cocci 01/04/19 22:59 Blood Aerobic Blood Culture - Preliminary No growth in Aerobic bottle after 48 hours. 01/04/19 22:59 Blood Anaerobic Blood Culture - Preliminary No growth in Anaerobic bottle after 48 hours. 01/04/19 20:53 Blood Aerobic Blood Culture - Preliminary No growth in Aerobic bottle after 48 hours. 01/04/19 20:53 Blood Anaerobic Blood Culture - Preliminary No growth in Anaerobic bottle after 48 hours.
--- NOTE | 2019-01-07 19:23 | Hospitalist Progress Note ---
Date of Service January 07, 2019 Assessment & Plan (1) Bilateral cellulitis of lower leg: Chronic lower extremity edema probably due to underlying sleep apnea, obesity hypoventilation syndrome, venous insufficiency. Presented with worsening erythema and pain. WBC was 13,000 day of admission. Receiving IV piperacillin / tazobactam. WBC improved. Afebrile. Can be difficulty to differentiate between chronic venous stasis dermatitis and cellulitis. May seen ongoing erythema. Consider transition to PO therapy. Continue IV diuretics for edema. (2) Coronary artery disease: Nonobstructive CAD. Continue carvedilol, statin. (3) Hypertension: Continue carvedilol, clonidine, hydralazine, minoxidil. (4) Sleep apnea: Intolerant of CPAP. May benefit from O2 HS. Check nocturnal pulse oximetry. (5) Diabetes mellitus type 2 with complications: Usually managed with glipizide. Hgb A1C 6.7. FBS = 135. Insulin coverage as needed. (6) Morbid obesity with BMI of 50.0-59.9, adult: Contributing to multiple medical problems (sleep apnea, pulmonary hypertension, hypertension, DM). Heart healthy diet. (7) DVT prophylaxis: SQ heparin. Ambulate. (8) Discharge planning issues: Anticipated discharge to home. Primary Care follow-up with Comfort Almanzar PA-C ([facility]). Subjective Recheck for multiple problems. Patient seen in their room around 19:20. Persistent discomfort bilat legs and feet. No fever. Review of Systems: Constitutional-as noted above. Cardiac- no chest pain. Pulmonary- no cough or SOB. GI- no nausea, vomiting, diarrhea, melena, hematochezia. - no urinary symptoms. Otherwise, as noted above. Physical Exam Constitutional: no acute distress Respiratory: no respiratory distress Auscultation: lungs clear to auscultation bilaterally Cardiovascular: Rate/Rhythm: regular rate and regular rhythm Heart Sounds: no gallop Extremities: + edema (3+ pretibial and pedal); no calf tenderness Gastrointestinal (Abdomen): normal bowel sounds, soft, nontender, no hepatosplenomegaly Skin: + erythema (bilat lower extremities below knee) Psychiatric: Orientation: alert and oriented x 3 Results & Data Vital Signs (Past 12 Hours) Vital Signs Temp Pulse Resp BP Pulse Ox 01/07/19 14:56 36.6 C 65 18 148/70 H 93 01/07/19 13:42 136/65 01/07/19 07:45 37.0 C 64 17 159/69 H 93 Laboratory Results Laboratory Results - last 24 hr 01/07/19 01/07/19 01/07/19 05:29 05:29 08:24 WBC 8.13 RBC 2.95 L Hgb 8.9 L Hct 27.0 L MCV 91.5 MCH 30.2 MCHC 33.0 RDW Std Deviation 48.0 H RDW Coeff of Xin 14.6 H Plt Count 176 MPV 9.3 Immature Gran % (Auto) 0.2 Neut % (Auto) 76.3 Lymph % (Auto) 13.7 [place] % (Auto) 6.5 Eos % (Auto) 3.1 Baso % (Auto) 0.2 Immature Gran # (Auto) 0.02 Neut # (Auto) 6.20 Lymph # (Auto) 1.11 L [place] # (Auto) 0.53 Eos # (Auto) 0.25 Baso # (Auto) 0.02 Sodium 143 Potassium 3.5 Chloride 105 Carbon Dioxide 30 Anion Gap 8.0 BUN 20 H Creatinine 1.62 H Est Cr Clr Drug Dosing 84.6 Est GFR ( Amer) 52.3 Est GFR (Non-Af Amer) 45.1 BUN/Creatinine Ratio 12.6 Glucose 117 H POC Glucose 135 H Calcium 8.7 Magnesium 2.1 Total Bilirubin 0.4 AST 11 L ALT 16 Alkaline Phosphatase 101 Total Protein 5.8 L Albumin 2.3 L Globulin 3.5 Albumin/Globulin Ratio 0.7 L 01/07/19 01/07/19 01/07/19 12:07 17:09 20:13 WBC RBC Hgb Hct MCV MCH MCHC RDW Std Deviation RDW Coeff of Xin Plt Count MPV Immature Gran % (Auto) Neut % (Auto) Lymph % (Auto) [place] % (Auto) Eos % (Auto) Baso % (Auto) Immature Gran # (Auto) Neut # (Auto) Lymph # (Auto) [place] # (Auto) Eos # (Auto) Baso # (Auto) Sodium Potassium Chloride Carbon Dioxide Anion Gap BUN Creatinine Est Cr Clr Drug Dosing Est GFR ( Amer) Est GFR (Non-Af Amer) BUN/Creatinine Ratio Glucose POC Glucose 168 H 143 H 160 H Calcium Magnesium Total Bilirubin AST ALT Alkaline Phosphatase Total Protein Albumin Globulin Albumin/Globulin Ratio
[2019-01-07] MEDS: MONTELUKAST SODIUM 10 MG TABLET PO SCH (21:50)
[2019-01-08] MEDS: CHECK CLONIDINE PATCH PLACEMENT SCH ×3 (00:35→17:04)
[2019-01-08] MEDS: OXYCODONE HCL IR 5 MG TAB (IMMEDIATE RELEASE) PO PRN (04:45)
[2019-01-08] MEDS: PIPERACILLIN/TAZOBACTAM 4.5 GM in DEXTROSE 5% 100 ML IV SCH ×2 (05:32→13:37)
[2019-01-08] MEDS: FUROSEMIDE 60 MG in SYRINGE 0 ML IV SCH ×3 (05:33→22:05)
[2019-01-08] MEDS: HEPARIN SOD 5,000 UNIT/0.5 ML VIAL SQ SCH ×3 (05:33→22:05)
[2019-01-08 07:21] LABS: BUN Creatinine Ratio 12.7 (10-20); Calcium 9.6 mg/dl (8.5-10.1); Creatinine Clr Calc Pharmacy 88.3 ml/min; Est GFR (African American) 55.2; Est GFR (Non-African American) 47.6; Potassium 3.4 mmol/L (3.5-5.1)
[2019-01-08] MEDS: ATORVASTATIN 40 MG TAB PO SCH (07:46)
[2019-01-08] MEDS: ALLOPURINOL 300 MG TAB PO SCH (07:46)
[2019-01-08] MEDS: DULOXETINE HCL 30 MG CAP PO SCH (07:46)
[2019-01-08] MEDS: CHOLECALCIFEROL 1,000 UNITS TAB PO SCH (07:46)
[2019-01-08] MEDS: GABAPENTIN 100 MG CAP PO SCH ×3 (07:47→20:46)
[2019-01-08] MEDS: CARVEDILOL 25 MG TAB PO SCH ×2 (07:47→20:50)
[2019-01-08] MEDS: SERTRALINE HCL 100 MG TABLET PO SCH (07:47)
[2019-01-08] MEDS: FERROUS SULFATE 325 MG TAB PO SCH ×2 (07:47→18:07)
[2019-01-08] MEDS: POTASSIUM CHLORIDE 20 MEQ TABCR PO SCH ×2 (07:47→20:45)
[2019-01-08] MEDS: MINOXIDIL 2.5 MG TAB PO SCH ×2 (07:47→20:47)
[2019-01-08] MEDS: POTASSIUM CHLORIDE 10 MEQ TABCR PO SCH ×2 (07:48→20:55)
[2019-01-08] MEDS: MAGNESIUM OXIDE 400 MG TAB PO SCH (07:48)
[2019-01-08] MEDS: CALCITRIOL 0.25 MCG CAPSULE PO SCH (07:48)
[2019-01-08] MEDS: TIOTROPIUM BROMIDE 5 PUFF/90 MCG INH INH SCH (07:49)
[2019-01-08] MEDS: INSULIN ASPART 100 UNITS/ML 3 ML PEN SC SCH ×4 (08:55→20:58)
--- NOTE | 2019-01-08 14:14 | Infectious Disease Progress Nt ---
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 will stop zosyn, no additional vanco needed. 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 would give 10 more days total. Suspect most symptoms related to fluid overload. follow blood cultures, negative to date. would benefit from fluid management. Discussed with patient that he would benefit from wound care post d/c. he states he would prefer to follow in [place] as this is closer to home. ok for d/c from ID standpoint. Subjective wound culture growing rare solar energy specialist, likely skin speedy. afebrile. wbc normal. afebrile. blood cultures negative. remains on zosyn. tolerating well. Results & Data Vital Signs (Past 12 Hours) Vital Signs Temp Pulse Resp BP BP Pulse Ox 01/08/19 13:15 61 155/73 H 96 01/08/19 07:30 36.6 C 63 18 168/71 H 94 Laboratory Results Microbiology 01/06/19 08:10 Leg Gram Stain - Final 01/06/19 08:10 Leg Wound Culture - Preliminary Coag negative Staphylococcus 01/04/19 22:59 Blood Aerobic Blood Culture - Preliminary No growth in Aerobic bottle after 48 hours. 01/04/19 22:59 Blood Anaerobic Blood Culture - Preliminary No growth in Anaerobic bottle after 48 hours. 01/04/19 20:53 Blood Aerobic Blood Culture - Preliminary No growth in Aerobic bottle after 48 hours. 01/04/19 20:53 Blood Anaerobic Blood Culture - Preliminary No growth in Anaerobic bottle after 48 hours. PG Care Time/CCT Total # of Minutes Spent Total Time Spent with Patient: Total time spent is greater than 50% in coordination of care (as documented) at patient's floor/unit and/or counseling patient:
[2019-01-08] MEDS: DOXYCYCLINE HYCLATE 100 MG CAP PO SCH (20:46)
[2019-01-08] MEDS: MONTELUKAST SODIUM 10 MG TABLET PO SCH (20:47)
--- NOTE | 2019-01-08 23:05 | Hospitalist Progress Note ---
Date of Service January 08, 2019 Assessment & Plan (1) Bilateral cellulitis of lower leg: Chronic lower extremity edema probably due to underlying sleep apnea, obesity hypoventilation syndrome, venous insufficiency. Presented with worsening erythema and pain. WBC was 13,000 day of admission. Receiving IV piperacillin / tazobactam. WBC improved. Afebrile. Can be difficulty to differentiate between chronic venous stasis dermatitis and cellulitis. May seen ongoing erythema. Transition to PO therapy with doxycycline. Continue IV diuretics for edema. (2) Lower extremity edema: Probably secondary to sleep apnea with pulmonary hypertension +/- venous insufficiency. Continue IV diuretics as tolerated. Elevate legs as able. (3) Coronary artery disease: Nonobstructive CAD. Continue carvedilol, statin. (4) Hypertension: Continue carvedilol, clonidine, hydralazine, minoxidil. (5) Sleep apnea: Sleep apnea with associated pulmonary hypertension / edema. Intolerant of CPAP. Nocturnal pulse oximetry demonstrated O2 sats as low as 82%. O2 HS 2 LPM. (6) Diabetes mellitus type 2 with complications: Usually managed with glipizide. Hgb A1C 6.7. FBS = 155. Insulin coverage as needed. (7) Morbid obesity with BMI of 50.0-59.9, adult: Contributing to multiple medical problems (sleep apnea, pulmonary hypertension, hypertension, DM). Heart healthy diet. (8) DVT prophylaxis: SQ heparin. Ambulate. (9) Discharge planning issues: Anticipated discharge to home. Primary Care follow-up with Comfort Almanzar PA-C ([facility]). Subjective Recheck for multiple problems. Patient seen in their room around 12:30. Very thirsty. Persistent discomfort bilat legs and feet. No fever. Review of Systems: Constitutional-as noted above. Cardiac- no chest pain. Pulmonary- occasional mild nonproductive cough or SOB. GI- no nausea, vomiting, diarrhea, melena, hematochezia. - voiding without difficulty. Otherwise, as noted above. Physical Exam Constitutional: no acute distress Respiratory: no respiratory distress Auscultation: lungs clear to auscultation bilaterally Cardiovascular: Rate/Rhythm: regular rate and regular rhythm Heart Sounds: no gallop Extremities: + edema (3+ pretibial and pedal); no calf tenderness Gastrointestinal (Abdomen): normal bowel sounds, soft, nontender, no hepatosplenomegaly Skin: + erythema (bilat lower extremities below knee) Psychiatric: Orientation: alert and oriented x 3 Results & Data Vital Signs (Past 12 Hours) Vital Signs Temp Pulse Resp BP BP Pulse Ox 01/08/19 14:56 36.3 C L 58 L 18 182/80 H 96 01/08/19 13:15 61 155/73 H 96 Laboratory Results Laboratory Results - last 24 hr 01/08/19 01/08/19 01/08/19 06:31 08:18 12:09 Sodium 143 Potassium 3.4 L Chloride 102 Carbon Dioxide 34 H Anion Gap 7.0 BUN 20 H Creatinine 1.55 H Est Cr Clr Drug Dosing 88.3 Est GFR ( Amer) 55.2 Est GFR (Non-Af Amer) 47.6 BUN/Creatinine Ratio 12.7 Glucose 121 H POC Glucose 137 H 173 H Calcium 9.6 01/08/19 01/08/19 17:03 20:36 Sodium Potassium Chloride Carbon Dioxide Anion Gap BUN Creatinine Est Cr Clr Drug Dosing Est GFR ( Amer) Est GFR (Non-Af Amer) BUN/Creatinine Ratio Glucose POC Glucose 135 H 165 H Calcium
[2019-01-09] MEDS: FUROSEMIDE 60 MG in SYRINGE 0 ML IV SCH ×3 (06:03→21:36)
[2019-01-09] MEDS: MAGNESIUM OXIDE 400 MG TAB PO SCH (06:05)
[2019-01-09] MEDS: FERROUS SULFATE 325 MG TAB PO SCH ×2 (06:06→18:33)
[2019-01-09] MEDS: HEPARIN SOD 5,000 UNIT/0.5 ML VIAL SQ SCH ×3 (06:07→21:36)
[2019-01-09 07:01] LABS: Hematocrit (blood only) 30.1 % (42-52); Hemoglobin 9.8 g/dL (14.0-18.0); Mean Corpuscular Hgb Conc 32.6 g/dL (32-36); Mean Corpuscular Volume 90.7 fL (80-100); Mean Platelet Volume 9.3 fL (7.4-10.4); Platelet Count 209 K/uL (130-400); RDW Coefficient of Variation 14.3 % (11.5-14.5); RDW Standard Deviation 47.3 fL (36.4-46.3); Red Blood Count 3.32 M/uL (4.7-6.1); White Blood Count 8.25 K/uL (4.8-10.8)
[2019-01-09 07:39] LABS: BUN Creatinine Ratio 14.3 (10-20); Calcium 9.9 mg/dl (8.5-10.1); Creatinine Clr Calc Pharmacy 88.3 ml/min; Est GFR (African American) 55.2; Est GFR (Non-African American) 47.6; Potassium 3.4 mmol/L (3.5-5.1)
[2019-01-09 07:45] LABS: Folate (Folic Acid) 7.54 ng/ml (>5.38)
[2019-01-09] MEDS: CHECK CLONIDINE PATCH PLACEMENT SCH ×3 (08:22→18:27)
[2019-01-09] MEDS: CARVEDILOL 25 MG TAB PO SCH ×2 (08:36→20:21)
[2019-01-09] MEDS: MINOXIDIL 2.5 MG TAB PO SCH ×2 (08:37→20:20)
[2019-01-09] MEDS: DULOXETINE HCL 30 MG CAP PO SCH (08:37)
[2019-01-09] MEDS: ATORVASTATIN 40 MG TAB PO SCH (08:37)
[2019-01-09] MEDS: GABAPENTIN 100 MG CAP PO SCH ×3 (08:38→20:21)
[2019-01-09] MEDS: CALCITRIOL 0.25 MCG CAPSULE PO SCH (08:38)
[2019-01-09] MEDS: TIOTROPIUM BROMIDE 5 PUFF/90 MCG INH INH SCH (08:39)
[2019-01-09] MEDS: DOXYCYCLINE HYCLATE 100 MG CAP PO SCH ×2 (08:40→21:36)
[2019-01-09] MEDS: CHOLECALCIFEROL 1,000 UNITS TAB PO SCH (08:40)
[2019-01-09] MEDS: SERTRALINE HCL 100 MG TABLET PO SCH (08:41)
[2019-01-09] MEDS: ALLOPURINOL 300 MG TAB PO SCH (08:41)
[2019-01-09] MEDS: INSULIN ASPART 100 UNITS/ML 3 ML PEN SC SCH ×4 (08:55→21:36)
[2019-01-09] MEDS: POTASSIUM CHLORIDE 20 MEQ TABCR PO SCH ×2 (09:07→20:20)
[2019-01-09] MEDS: OXYCODONE HCL IR 5 MG TAB (IMMEDIATE RELEASE) PO PRN (13:49)
--- NOTE | 2019-01-09 18:56 | Hospitalist Progress Note ---
Date of Service January 09, 2019 Assessment & Plan (1) Bilateral cellulitis of lower leg: Chronic lower extremity edema probably due to underlying sleep apnea, obesity hypoventilation syndrome, venous insufficiency. Presented with worsening erythema and pain. WBC was 13,000 day of admission. Received IV piperacillin / tazobactam. WBC improved. Afebrile. Can be difficulty to differentiate between chronic venous stasis dermatitis and cellulitis. May see ongoing erythema. Transitioned to PO therapy with doxycycline. Continue IV diuretics for edema. (2) Lower extremity edema: Probably secondary to sleep apnea with pulmonary hypertension +/- venous insufficiency. Continue IV diuretics as tolerated. Elevate legs as able. (3) Coronary artery disease: Nonobstructive CAD. Continue carvedilol, statin. (4) Hypertension: Continue carvedilol, clonidine, hydralazine, minoxidil. (5) Sleep apnea: Sleep apnea with associated pulmonary hypertension / edema. Intolerant of CPAP. Nocturnal pulse oximetry 01/07 demonstrated O2 sats as low as 82%. O2 HS 2 LPM. (6) Diabetes mellitus type 2 with complications: Usually managed with glipizide. Hgb A1C 6.7. FBS = 134. Insulin coverage as needed. (7) Morbid obesity with BMI of 50.0-59.9, adult: Contributing to multiple medical problems (sleep apnea, pulmonary hypertension, hypertension, DM). Heart healthy diet. (8) Anemia: Hgb 10.0 day of admission, MCV 89. Fe 53, transferrin 155, % sat 24, B12 256, folate 7.5. Stool heme neg. Follow. (9) Hypokalemia: K 3.4. Receiving IV furosemide. Adjust KCl replacement. Follow. (10) DVT prophylaxis: SQ heparin. Ambulate. (11) Discharge planning issues: Anticipated discharge to home. Primary Care follow-up with Comfort Almanzar PA-C ([facility]). Subjective Recheck for multiple problems. Patient seen in their room around 10:20. Persistent discomfort bilat legs and feet. No fever. Review of Systems: Constitutional-as noted above. Cardiac- no chest pain. Pulmonary- occasional mild nonproductive cough or SOB. GI- no nausea, vomiting, diarrhea, melena, hematochezia. - voiding without difficulty. Otherwise, as noted above. Physical Exam Constitutional: no acute distress Respiratory: no respiratory distress Auscultation: lungs clear to auscultation bilaterally Cardiovascular: Rate/Rhythm: regular rate and regular rhythm Heart Sounds: no gallop Extremities: + edema (3+ pretibial and pedal); no calf tenderness Gastrointestinal (Abdomen): normal bowel sounds, soft, nontender, no hepatosplenomegaly Skin: + ulcer (superficial ulceration right anterior leg) and + erythema (bilat lower extremities below knee) Psychiatric: Orientation: alert and oriented x 3 Results & Data Vital Signs (Past 12 Hours) Vital Signs Temp Pulse Pulse Resp BP Pulse Ox 01/09/19 15:27 63 150/73 H 01/09/19 15:20 36.6 C 58 L 22 190/72 H 94 01/09/19 12:03 130/67 01/09/19 07:31 36.5 C 60 17 163/73 H 92 Laboratory Results Laboratory Results - last 24 hr 01/08/19 01/09/19 01/09/19 20:36 06:46 06:46 WBC 8.25 RBC 3.32 L Hgb 9.8 L Hct 30.1 L MCV 90.7 MCH 29.5 MCHC 32.6 RDW Std Deviation 47.3 H RDW Coeff of Xin 14.3 Plt Count 209 MPV 9.3 Sodium 142 Potassium 3.4 L Chloride 100 Carbon Dioxide 35 H Anion Gap 7.0 BUN 22 H Creatinine 1.55 H Est Cr Clr Drug Dosing 88.3 Est GFR ( Amer) 55.2 Est GFR (Non-Af Amer) 47.6 BUN/Creatinine Ratio 14.3 Glucose 115 H POC Glucose 165 H Calcium 9.9 Iron 53 Transferrin 155 L Transferrin % Sat 24 Vitamin B12 Folate Stool Occult Bld Scrn 01/09/19 01/09/19 01/09/19 06:46 08:22 12:04 WBC RBC Hgb Hct MCV MCH MCHC RDW Std Deviation RDW Coeff of Xin Plt Count MPV Sodium Potassium Chloride Carbon Dioxide Anion Gap BUN Creatinine Est Cr Clr Drug Dosing Est GFR ( Amer) Est GFR (Non-Af Amer) BUN/Creatinine Ratio Glucose POC Glucose 134 H 165 H Calcium Iron Transferrin Transferrin % Sat Vitamin B12 256 Folate 7.54 Stool Occult Bld Scrn 01/09/19 01/09/19 17:04 18:06 WBC RBC Hgb Hct MCV MCH MCHC RDW Std Deviation RDW Coeff of Xin Plt Count MPV Sodium Potassium Chloride Carbon Dioxide Anion Gap BUN Creatinine Est Cr Clr Drug Dosing Est GFR ( Amer) Est GFR (Non-Af Amer) BUN/Creatinine Ratio Glucose POC Glucose 169 H Calcium Iron Transferrin Transferrin % Sat Vitamin B12 Folate Stool Occult Bld Scrn Negative
[2019-01-09] MEDS: MONTELUKAST SODIUM 10 MG TABLET PO SCH (20:20)
[2019-01-10] MEDS: CHECK CLONIDINE PATCH PLACEMENT SCH ×3 (00:03→15:43)
[2019-01-10] MEDS: MAGNESIUM OXIDE 400 MG TAB PO SCH (05:43)
[2019-01-10] MEDS: FERROUS SULFATE 325 MG TAB PO SCH ×2 (05:44→18:23)
[2019-01-10] MEDS: HEPARIN SOD 5,000 UNIT/0.5 ML VIAL SQ SCH ×3 (05:45→21:37)
[2019-01-10] MEDS: FUROSEMIDE 60 MG in SYRINGE 0 ML IV SCH ×3 (05:49→21:37)
[2019-01-10 07:46] LABS: BUN Creatinine Ratio 15.2 (10-20); Calcium 9.8 mg/dl (8.5-10.1); Est GFR (African American) 51.9; Est GFR (Non-African American) 44.8; Potassium 3.4 mmol/L (3.5-5.1)
[2019-01-10] MEDS: SERTRALINE HCL 100 MG TABLET PO SCH (08:32)
[2019-01-10] MEDS: CARVEDILOL 25 MG TAB PO SCH ×2 (08:32→20:07)
[2019-01-10] MEDS: ALLOPURINOL 300 MG TAB PO SCH (08:32)
[2019-01-10] MEDS: GABAPENTIN 100 MG CAP PO SCH ×2 (08:33→12:51)
[2019-01-10] MEDS: MINOXIDIL 2.5 MG TAB PO SCH ×2 (08:33→20:05)
[2019-01-10] MEDS: CHOLECALCIFEROL 1,000 UNITS TAB PO SCH (08:33)
[2019-01-10] MEDS: DOXYCYCLINE HYCLATE 100 MG CAP PO SCH ×2 (08:33→20:06)
[2019-01-10] MEDS: ATORVASTATIN 40 MG TAB PO SCH (08:34)
[2019-01-10] MEDS: CALCITRIOL 0.25 MCG CAPSULE PO SCH (08:34)
[2019-01-10] MEDS: POTASSIUM CHLORIDE 20 MEQ TABCR PO SCH ×2 (08:34→20:06)
[2019-01-10] MEDS: DULOXETINE HCL 30 MG CAP PO SCH (08:35)
[2019-01-10] MEDS: INSULIN ASPART 100 UNITS/ML 3 ML PEN SC SCH ×4 (08:40→21:38)
[2019-01-10] MEDS: TIOTROPIUM BROMIDE 5 PUFF/90 MCG INH INH SCH (08:51)
--- NOTE | 2019-01-10 14:53 | Hospitalist Progress Note ---
Date of Service January 10, 2019 Assessment & Plan (1) Bilateral cellulitis of lower leg: Chronic lower extremity edema probably due to underlying sleep apnea, obesity hypoventilation syndrome, venous insufficiency. Presented with worsening erythema and pain. WBC was 13,000 day of admission. Received IV piperacillin / tazobactam. WBC improved. Afebrile. Can be difficulty to differentiate between chronic venous stasis dermatitis and cellulitis. May see ongoing erythema. Transitioned to PO therapy with doxycycline. Continue IV diuretics for edema. (2) Lower extremity edema: Probably secondary to sleep apnea with pulmonary hypertension +/- venous insufficiency. Continue IV diuretics as tolerated. Elevate legs as able. (3) Coronary artery disease: Nonobstructive CAD. Continue carvedilol, statin. (4) Hypertension: Continue carvedilol, clonidine, hydralazine, minoxidil. (5) Sleep apnea: Sleep apnea with associated pulmonary hypertension / edema. Intolerant of CPAP. Nocturnal pulse oximetry 01/07 demonstrated O2 sats as low as 82%. O2 HS 2 LPM. (6) Diabetes mellitus type 2 with complications: Usually managed with glipizide. Hgb A1C 6.7. FBS = 129. Insulin coverage as needed. (7) Morbid obesity with BMI of 50.0-59.9, adult: Contributing to multiple medical problems (sleep apnea, pulmonary hypertension, hypertension, DM). Heart healthy diet. (8) Anemia: Hgb 10.0 day of admission, MCV 89. Fe 53, transferrin 155, % sat 24, B12 256, folate 7.5. Stool heme neg. Follow. (9) Hypokalemia: K 3.4. Receiving IV furosemide. Adjusted KCl replacement. Follow. (10) DVT prophylaxis: SQ heparin. Ambulate. (11) Discharge planning issues: Anticipated discharge to home. Primary Care follow-up with Comfort Almanzar PA-C ([facility]). Subjective Recheck for multiple problems. Patient seen in their room around 10:10. Persistent discomfort bilateral legs and feet. No fever. Review of Systems: Constitutional-as noted above. Cardiac- no chest pain. Pulmonary- mild wheezing, occasional cough, no SOB. GI- no nausea, vomiting, diarrhea, melena, hematochezia. - voiding without difficulty. Otherwise, as noted above. Physical Exam Constitutional: no acute distress Respiratory: no respiratory distress Auscultation: + wheezes Cardiovascular: Rate/Rhythm: regular rate and regular rhythm Heart Sounds: no gallop Extremities: + edema (3+ pretibial and pedal); no calf tenderness Gastrointestinal (Abdomen): normal bowel sounds, soft, nontender, no hepatosplenomegaly Skin: + ulcer (superficial ulceration right anterior leg) and + erythema (bilat lower extremities below knee) Psychiatric: Orientation: alert and oriented x 3 Results & Data Vital Signs (Past 12 Hours) Vital Signs Temp Pulse Resp BP Pulse Ox 01/10/19 07:10 36.7 C 69 16 146/69 H 94 Laboratory Results Laboratory Results - last 24 hr 01/09/19 01/09/19 01/09/19 17:04 18:06 20:39 Sodium Potassium Chloride Carbon Dioxide Anion Gap BUN Creatinine Est Cr Clr Drug Dosing Est GFR ( Amer) Est GFR (Non-Af Amer) BUN/Creatinine Ratio Glucose POC Glucose 169 H 152 H Calcium Stool Occult Bld Scrn Negative 01/10/19 01/10/19 01/10/19 06:48 08:19 11:53 Sodium 142 Potassium 3.4 L Chloride 100 Carbon Dioxide 35 H Anion Gap 7.0 BUN 25 H Creatinine 1.63 H Est Cr Clr Drug Dosing 84.0 Est GFR ( Amer) 51.9 Est GFR (Non-Af Amer) 44.8 BUN/Creatinine Ratio 15.2 Glucose 119 H POC Glucose 129 H 149 H Calcium 9.8 Stool Occult Bld Scrn
[2019-01-10] MEDS ORDERED: POTASSIUM CHLORIDE 20 MEQ TABCR PO ONE (14:57)
--- NOTE | 2019-01-10 18:59 | XRay Report ---
XR chest 1V portable HISTORY: 63 years-old Male wheezing, cough acute cough with wheezing COMPARISON: Chest radiograph 01/04/2019 TECHNIQUE: Portable AP view of the chest FINDINGS: Cardiac silhouette is enlarged. Interval development of pulmonary vascular congestion with right grea ter than left interstitial opacities, small pleural effusions with bibasilar densities. No pneumothor ax. Degenerative changes of the shoulders and spine. IMPRESSION: 1. Cardiomegaly with interval development of pulmonary vascular congestion and right greater than lef t interstitial opacities suspicious for asymmetric pulmonary edema or nonspecific pneumonitis. 2. Small pleural effusions with new bibasilar opacities. The above report was generated using voice recognition software. It may contain grammatical, syntax o r spelling errors. Electronically signed by: Maikol Oswald M.D. 01/10/2019 6:58 PM
[2019-01-10] MEDS: MONTELUKAST SODIUM 10 MG TABLET PO SCH (20:06)
[2019-01-11] MEDS: CHECK CLONIDINE PATCH PLACEMENT SCH ×3 (01:18→16:41)
[2019-01-11] MEDS: FUROSEMIDE 60 MG in SYRINGE 0 ML IV SCH (05:18)
[2019-01-11] MEDS: FERROUS SULFATE 325 MG TAB PO SCH ×2 (05:19→18:44)
[2019-01-11] MEDS: HEPARIN SOD 5,000 UNIT/0.5 ML VIAL SQ SCH ×3 (05:19→21:05)
[2019-01-11] MEDS: MAGNESIUM OXIDE 400 MG TAB PO SCH (05:20)
[2019-01-11] MEDS: OXYCODONE HCL IR 5 MG TAB (IMMEDIATE RELEASE) PO PRN (05:28)
[2019-01-11 06:42] LABS: BUN Creatinine Ratio 15.8 (10-20); Calcium 9.9 mg/dl (8.5-10.1); Creatinine Clr Calc Pharmacy 71.9 ml/min; Est GFR (African American) 45.7; Est GFR (Non-African American) 39.5; Potassium 3.8 mmol/L (3.5-5.1)
[2019-01-11] MEDS ORDERED: cloNIDine HCL 0.3 MG/24 HR TRANSDERM SYS TD SCH (09:00)
[2019-01-11] MEDS: ALLOPURINOL 300 MG TAB PO SCH (09:25)
[2019-01-11] MEDS: CARVEDILOL 25 MG TAB PO SCH ×2 (09:25→20:30)
[2019-01-11] MEDS: DOXYCYCLINE HYCLATE 100 MG CAP PO SCH ×2 (09:25→20:30)
[2019-01-11] MEDS: TIOTROPIUM BROMIDE 5 PUFF/90 MCG INH INH SCH (09:25)
[2019-01-11] MEDS: SERTRALINE HCL 100 MG TABLET PO SCH (09:25)
[2019-01-11] MEDS: CALCITRIOL 0.25 MCG CAPSULE PO SCH (09:26)
[2019-01-11] MEDS: CHOLECALCIFEROL 1,000 UNITS TAB PO SCH (09:26)
[2019-01-11] MEDS: ATORVASTATIN 40 MG TAB PO SCH (09:27)
[2019-01-11] MEDS: DULOXETINE HCL 30 MG CAP PO SCH (09:27)
[2019-01-11] MEDS: MINOXIDIL 2.5 MG TAB PO SCH ×2 (09:27→20:30)
[2019-01-11] MEDS: INSULIN ASPART 100 UNITS/ML 3 ML PEN SC SCH ×4 (09:28→21:04)
--- NOTE | 2019-01-11 18:27 | Hospitalist Progress Note ---
Date of Service January 11, 2019 Assessment & Plan (1) Bilateral cellulitis of lower leg: Chronic lower extremity edema probably due to underlying sleep apnea, obesity hypoventilation syndrome, venous insufficiency. Presented with worsening erythema and pain. WBC was 13,000 day of admission. Received IV piperacillin / tazobactam. WBC improved. Afebrile. Can be difficulty to differentiate between chronic venous stasis dermatitis and cellulitis. May see ongoing erythema. Transitioned to PO therapy with doxycycline (10 days starting 01/08). Titrate diuretics for edema. Skin / wound care per Wound Care Nursing. Titrate analgesics- try to transition from oxycodone to tramadol. (2) Lower extremity edema: Probably secondary to sleep apnea with pulmonary hypertension +/- venous insufficiency. Received IV diuretics with improvement, but now with rising creatinine (1.34 --> --> 1.81). Hold diuretics, resume when creatinine improved. Elevate legs as able. (3) Coronary artery disease: Nonobstructive CAD. Continue carvedilol, statin. (4) Hypertension: Continue carvedilol, clonidine, hydralazine, minoxidil. (5) Sleep apnea: Sleep apnea with associated pulmonary hypertension / edema. Intolerant of CPAP. Nocturnal pulse oximetry 01/07 demonstrated O2 sats as low as 82%. O2 HS 2 LPM. (6) Diabetes mellitus type 2 with complications: Usually managed with glipizide. Hgb A1C 6.7. FBS = 144. Insulin coverage as needed. (7) Morbid obesity with BMI of 50.0-59.9, adult: Contributing to multiple medical problems (sleep apnea, pulmonary hypertension, hypertension, DM). Heart healthy diet. (8) Anemia: Hgb 10.0 day of admission, MCV 89. Fe 53, transferrin 155, % sat 24, B12 256, folate 7.5. Stool heme neg. Follow. (9) Hypokalemia: K as low as 3.4. Was receiving IV furosemide. Received potassium replacement. K today = 3.8. Follow. (10) DVT prophylaxis: SQ heparin. Ambulate. (11) Discharge planning issues: Anticipated discharge to home. Primary Care follow-up with Comfort Almanzar PA-C ([facility]). Subjective Recheck for multiple problems. Patient seen in their room around 09:20. No fever. Persistent pain bilateral legs and feet, sometimes severe. Oxycodone helps. Wearing O2 at night for sleep apnea / nocturnal hypoxia. Review of Systems: Constitutional-as noted above. Cardiac- no chest pain. Pulmonary- no chest pain, cough, no SOB. GI- no nausea, vomiting, diarrhea, melena, hematochezia. - voiding without difficulty. Otherwise, as noted above. Physical Exam Constitutional: no acute distress Respiratory: no respiratory distress Auscultation: + wheezes (diffuse, minimal) Cardiovascular: Rate/Rhythm: regular rate and regular rhythm Heart Sounds: no gallop Extremities: + edema (3+ pretibial and pedal); no calf tenderness Gastrointestinal (Abdomen): normal bowel sounds, soft, nontender, no hepatosplenomegaly Skin: + ulcer (superficial ulceration right anterior leg) and + erythema (bilat lower extremities below knee) Psychiatric: Orientation: alert and oriented x 3 Results & Data Vital Signs (Past 12 Hours) Vital Signs Temp Pulse Resp BP Pulse Ox 01/11/19 15:31 36.4 C L 62 16 126/64 92 01/11/19 07:12 36.2 C L 63 16 143/70 H 90 Laboratory Results Laboratory Results - last 24 hr 01/10/19 01/10/19 01/11/19 18:03 20:50 05:52 Sodium 139 Potassium 3.8 Chloride 99 Carbon Dioxide 33 H Anion Gap 7.0 BUN 29 H Creatinine 1.81 H Est Cr Clr Drug Dosing 71.9 Est GFR ( Amer) 45.7 Est GFR (Non-Af Amer) 39.5 BUN/Creatinine Ratio 15.8 Glucose 138 H POC Glucose 155 H 167 H Calcium 9.9 01/11/19 01/11/19 01/11/19 08:18 12:19 17:23 Sodium Potassium Chloride Carbon Dioxide Anion Gap BUN Creatinine Est Cr Clr Drug Dosing Est GFR ( Amer) Est GFR (Non-Af Amer) BUN/Creatinine Ratio Glucose POC Glucose 144 H 150 H 123 H Calcium
[2019-01-11] MEDS: TRAMADOL HCL 50 MG TABLET PO PRN (19:45)
[2019-01-11] MEDS: MONTELUKAST SODIUM 10 MG TABLET PO SCH (20:30)
[2019-01-12] MEDS: CHECK CLONIDINE PATCH PLACEMENT SCH ×4 (00:43→23:34)
[2019-01-12] MEDS: MAGNESIUM OXIDE 400 MG TAB PO SCH (05:57)
[2019-01-12] MEDS: HEPARIN SOD 5,000 UNIT/0.5 ML VIAL SQ SCH ×3 (05:58→21:10)
[2019-01-12] MEDS: FERROUS SULFATE 325 MG TAB PO SCH ×2 (05:58→17:38)
[2019-01-12 06:34] LABS: BUN Creatinine Ratio 16.8 (10-20); Calcium 10.3 mg/dl (8.5-10.1); Creatinine Clr Calc Pharmacy 71.9 ml/min; Est GFR (African American) 45.7; Est GFR (Non-African American) 39.5; Potassium 3.5 mmol/L (3.5-5.1)
--- NOTE | 2019-01-12 07:41 | XRay Report ---
SINGLE VIEW CHEST CLINICAL HISTORY: Congestive heart failure. FINDINGS: An AP, portable, upright chest radiograph is compared to study dated 01/10/2019. The examinat ion is degraded by portable technique and apical lordotic positioning. The heart is enlarged. There i s pulmonary vascular congestion. Bibasilar atelectasis is observed. Trace pleural effusions are suspe cted. No pneumothorax is seen. The skeletal structures appear osteopenic. The bony thorax is grossly intact. IMPRESSION: Cardiomegaly with evidence of mild congestive failure. This is similar to the 01/10/2019 ex amination. Electronically signed by: Theron Veronica M.D. 01/12/2019 7:40 AM
[2019-01-12] MEDS: CARVEDILOL 25 MG TAB PO SCH ×2 (08:26→21:12)
[2019-01-12] MEDS: DULOXETINE HCL 30 MG CAP PO SCH (08:28)
[2019-01-12] MEDS: ATORVASTATIN 40 MG TAB PO SCH (08:28)
[2019-01-12] MEDS: CALCITRIOL 0.25 MCG CAPSULE PO SCH (08:31)
[2019-01-12] MEDS: TIOTROPIUM BROMIDE 5 PUFF/90 MCG INH INH SCH (08:32)
[2019-01-12] MEDS: DOXYCYCLINE HYCLATE 100 MG CAP PO SCH ×2 (08:33→21:12)
[2019-01-12] MEDS: CHOLECALCIFEROL 1,000 UNITS TAB PO SCH (08:34)
[2019-01-12] MEDS: SERTRALINE HCL 100 MG TABLET PO SCH (08:35)
[2019-01-12] MEDS: ALLOPURINOL 300 MG TAB PO SCH (08:36)
[2019-01-12] MEDS: INSULIN ASPART 100 UNITS/ML 3 ML PEN SC SCH ×4 (08:46→21:10)
[2019-01-12] MEDS: TRAMADOL HCL 50 MG TABLET PO PRN (09:05)
[2019-01-12] MEDS: MINOXIDIL 2.5 MG TAB PO SCH ×2 (10:26→21:12)
--- NOTE | 2019-01-12 10:57 | Hospitalist Progress Note ---
Date of Service January 12, 2019 Assessment & Plan (1) Bilateral cellulitis of lower leg: Bilateral lower extremity cellulitis - Improving Chronic lower extremity edema in setting of Obesity hypoventilation syndrome/ Venous insufficiency. Presented with worsening erythema and pain. -Afebrile, Leucocytosis improved -S/P IV Zosyn --> Transitioned to PO Doxycycline (Day 10/17) -IV lasix on hold -Wound care -Pain mx - Tylenol PRN, Oxycodone 5 mg q 8 hours prn, Tramadol 100 mg q 8 hour PRN Chronic lower extremity edema Probably in setting of venous insufficiency, obesity Received IV diuretics with improvement, but now with rising creatinine, held diuretics. -Continue to hold lasix -CXR- Mild pulmonary congestion similar to prior CXR, Monitor JARROD on CKD III Unclear baseline- Was 1.34 on 12/22 -Now up to 1.81 -Monitor while diuretics are on hold Hypokalemia -Resolved -Monitor Coronary artery disease Nonobstructive CAD Continue with carvedilol, statin Hypertension Stable Continue with carvedilol, clonidine, hydralazine, minoxidil Obstructive sleep apnea Sleep apnea with associated pulmonary hypertension/edema Intolerant of CPAP On oxygen 2 L at nighttime Diabetes mellitus type 2 with complications At home on glipizide Hemoglobin A1c 6.7 Insulin sliding scale, Accu-Cheks Morbid obesity with BMI 5050 9.9 Contributing to multiple problemssleep apnea, pulmonary hypertension, diabetes, hypertension Counseling done about weight loss Anemia Likely anemia of chronic disease Iron testsnegative, folatenegative, FOBTnegative DVT prophylaxis SQ heparin Ambulate DISPOSITION Medical mx in progress Anticipated discharged home. Likely in 1-2 days Primary Care follow-up with Comfort Almanzar PA-C ([facility]). Subjective Patient is feeling better. Complaining of being thirsty and not being given enough to drink. Denies any pain in lower extremities. Swelling has improved. No fever, chills. Next para Physical Exam Physical Exam: GENERAL- AAOX3, No acute distress, Morbidly Obese + LUNGS- Air entry bilaterally equal. No rales, rhonchi, crackles, wheezes heard. HEART- Regular rate and rhythm. No murmurs ABDOMEN- Soft, non tender, non distended, Bowel sounds heard. EXTREMITIES- B/L LE- Chronic lower extremity swelling, Erythema - improved superficial ulceration on right anterior leg NEUROMUSCULAR- AAOX3, Grossly no focal deficits Results & Data Vital Signs (Past 12 Hours) Vital Signs Temp Pulse Pulse Resp BP Pulse Ox 01/12/19 07:45 36.5 C 54 L 16 119/63 93 01/11/19 23:02 36.7 C 56 L 16 121/65 93
[2019-01-12] MEDS: MONTELUKAST SODIUM 10 MG TABLET PO SCH (21:12)
[2019-01-13] MEDS: TRAMADOL HCL 50 MG TABLET PO PRN (01:28)
[2019-01-13] MEDS: MAGNESIUM OXIDE 400 MG TAB PO SCH (06:19)
[2019-01-13] MEDS: FERROUS SULFATE 325 MG TAB PO SCH ×2 (06:19→17:48)
[2019-01-13] MEDS: HEPARIN SOD 5,000 UNIT/0.5 ML VIAL SQ SCH ×3 (06:19→20:58)
[2019-01-13 08:18] LABS: Est GFR (African American) 51.5; Est GFR (Non-African American) 44.5; Potassium 3.5 mmol/L (3.5-5.1)
[2019-01-13] MEDS: ALLOPURINOL 300 MG TAB PO SCH (09:31)
[2019-01-13] MEDS: CHOLECALCIFEROL 1,000 UNITS TAB PO SCH (09:31)
[2019-01-13] MEDS: ATORVASTATIN 40 MG TAB PO SCH (09:31)
[2019-01-13] MEDS: CALCITRIOL 0.25 MCG CAPSULE PO SCH (09:32)
[2019-01-13] MEDS: DULOXETINE HCL 30 MG CAP PO SCH (09:32)
[2019-01-13] MEDS: DOXYCYCLINE HYCLATE 100 MG CAP PO SCH ×2 (09:32→20:59)
[2019-01-13] MEDS: CARVEDILOL 25 MG TAB PO SCH ×2 (09:32→21:03)
[2019-01-13] MEDS: MINOXIDIL 2.5 MG TAB PO SCH ×2 (09:32→20:59)
[2019-01-13] MEDS: SERTRALINE HCL 100 MG TABLET PO SCH (09:32)
[2019-01-13] MEDS: TIOTROPIUM BROMIDE 5 PUFF/90 MCG INH INH SCH (09:33)
[2019-01-13] MEDS: CHECK CLONIDINE PATCH PLACEMENT SCH ×3 (09:34→23:25)
[2019-01-13] MEDS: INSULIN ASPART 100 UNITS/ML 3 ML PEN SC SCH ×4 (09:35→20:57)
[2019-01-13] MEDS ORDERED: BUMETANIDE 1 MG TAB PO STA (13:25)
--- NOTE | 2019-01-13 14:24 | Hospitalist Progress Note ---
Date of Service January 13, 2019 Assessment & Plan (1) Bilateral cellulitis of lower leg: Bilateral lower extremity cellulitis - Clinically Improving Chronic lower extremity edema in setting of Obesity hypoventilation syndrome/ Venous insufficiency. Presented with worsening erythema and pain. -Afebrile, Leucocytosis resolved -S/P IV Zosyn --> Transitioned to PO Doxycycline (Day 11/17) -IV lasix on hold--> Restarted on home bumex -Wound care on board -Pain mx - Tylenol PRN, Oxycodone 5 mg q 8 hours PRN, Tramadol 100 mg q 8 hour PRN Chronic lower extremity edema - Improved Probably in setting of venous insufficiency, obesity Received IV diuretics with improvement, but with rising creatinine, held diuretics. -Restart Home dose of Bumex today 2 mg - 1 mg - 2 mg -CXR on 01/12/19 - Mild pulmonary congestion similar to prior CXR, Monitor JARROD on CKD III Unclear baseline- Was 1.34 on 12/22 -Bumped up to 1.81, now trending down to 1.64 -Restarted Home dose of Bumex - 2 mg - 1 mg - 2 mg -Monitor while on diuretics Hypokalemia -Resolved -Monitor Coronary artery disease Nonobstructive CAD Continue with carvedilol, statin Hypertension Stable Continue with carvedilol, clonidine, hydralazine, minoxidil Anemia Likely anemia of chronic disease Iron testsnegative, folatenegative, FOBTnegative Obstructive sleep apnea Sleep apnea with associated pulmonary hypertension/edema -Intolerant of CPAP -On oxygen 2 L at nighttime Diabetes mellitus type 2 with complications At home on glipizide Hemoglobin A1c 6.7 Insulin sliding scale, Accu-Cheks Morbid obesity with BMI 5050 9.9 Contributing to multiple problemssleep apnea, pulmonary hypertension, diabetes, hypertension Counseling done about weight loss DVT prophylaxis SQ heparin Ambulate DISPOSITION Medical mx in progress Anticipated discharged home. Likely in 1-2 days Primary Care follow-up with Comfort Almanzar PA-C ([facility]). Subjective Patient is feeling better. Out of bed to chair. Denies any worsening of SOB. No chest pain,fever, chills, cough. B/L lower extremity edema has improved. No redness or pain. Physical Exam Physical Exam: GENERAL- AAOX3, No acute distress, Morbidly Obese + LUNGS- Air entry bilaterally equal. No rales, rhonchi, crackles, wheezes heard. HEART- Regular rate and rhythm. No murmurs ABDOMEN- Soft, non tender, non distended, Bowel sounds heard. EXTREMITIES- B/L LE- Chronic lower extremity swelling, Erythema - improved superficial ulceration on right anterior leg NEUROMUSCULAR- AAOX3, Grossly no focal deficits Results & Data Vital Signs (Past 12 Hours) Vital Signs Temp Pulse Pulse Resp BP Pulse Ox 01/13/19 09:29 60 121/60 01/13/19 07:10 36.5 C 51 L 18 126/68 94
[2019-01-13] MEDS: BUMETANIDE 1 MG TAB PO SCH ×2 (15:22→21:00)
[2019-01-13] MEDS: MONTELUKAST SODIUM 10 MG TABLET PO SCH (21:00)
[2019-01-14] MEDS: FERROUS SULFATE 325 MG TAB PO SCH ×2 (06:21→18:06)
[2019-01-14] MEDS: HEPARIN SOD 5,000 UNIT/0.5 ML VIAL SQ SCH ×2 (06:21→13:15)
[2019-01-14] MEDS: MAGNESIUM OXIDE 400 MG TAB PO SCH (06:24)
[2019-01-14 06:44] LABS: Hematocrit (blood only) 29.9 % (42-52); Hemoglobin 9.9 g/dL (14.0-18.0); Mean Corpuscular Hgb Conc 33.1 g/dL (32-36); Mean Corpuscular Volume 92.6 fL (80-100); Mean Platelet Volume 9.7 fL (7.4-10.4); Platelet Count 222 K/uL (130-400); RDW Coefficient of Variation 14.4 % (11.5-14.5); RDW Standard Deviation 48.6 fL (36.4-46.3); Red Blood Count 3.23 M/uL (4.7-6.1); White Blood Count 10.67 K/uL (4.8-10.8)
[2019-01-14 07:22] LABS: BUN Creatinine Ratio 16.8 (10-20); Calcium 9.9 mg/dl (8.5-10.1); Creatinine Clr Calc Pharmacy 80.5 ml/min; Est GFR (African American) 51.2; Est GFR (Non-African American) 44.1; Potassium 3.3 mmol/L (3.5-5.1)
[2019-01-14] MEDS: CHECK CLONIDINE PATCH PLACEMENT SCH ×2 (08:12→16:13)
[2019-01-14] MEDS: BUMETANIDE 1 MG TAB PO SCH ×2 (08:23→13:05)
[2019-01-14] MEDS: CARVEDILOL 25 MG TAB PO SCH (08:24)
[2019-01-14] MEDS: DULOXETINE HCL 30 MG CAP PO SCH (08:25)
[2019-01-14] MEDS: ATORVASTATIN 40 MG TAB PO SCH (08:26)
[2019-01-14] MEDS: MINOXIDIL 2.5 MG TAB PO SCH (08:27)
[2019-01-14] MEDS: CALCITRIOL 0.25 MCG CAPSULE PO SCH (08:27)
[2019-01-14] MEDS: DOXYCYCLINE HYCLATE 100 MG CAP PO SCH (08:29)
[2019-01-14] MEDS: CHOLECALCIFEROL 1,000 UNITS TAB PO SCH (08:30)
[2019-01-14] MEDS: SERTRALINE HCL 100 MG TABLET PO SCH (08:31)
[2019-01-14] MEDS: ALLOPURINOL 300 MG TAB PO SCH (08:32)
[2019-01-14] MEDS: INSULIN ASPART 100 UNITS/ML 3 ML PEN SC SCH ×3 (08:50→18:06)
[2019-01-14] MEDS: TIOTROPIUM BROMIDE 5 PUFF/90 MCG INH INH SCH (09:06)
[2019-01-14] MEDS ORDERED: POTASSIUM CHLORIDE 10 MEQ TABCR PO ONE (09:15)
[2019-01-14] MEDS: TRAMADOL HCL 50 MG TABLET PO PRN (11:22)
[2019-01-14] MEDS: OXYCODONE HCL IR 5 MG TAB (IMMEDIATE RELEASE) PO PRN (12:58)
--- NOTE | 2019-01-14 15:12 | Hospitalist Progress Note ---
Date of Service January 14, 2019 Assessment & Plan (1) Bilateral cellulitis of lower leg: Bilateral lower extremity cellulitis - Resolved Chronic lower extremity edema in setting of Obesity hypoventilation syndrome/ Venous insufficiency. Presented with worsening erythema and pain. -Afebrile, Leucocytosis resolved -S/P IV Zosyn --> Transitioned to PO Doxycycline (Day 12/17) -IV lasix was on hold x 2 days --> Restarted on home bumex on 01/13/19 -Wound care on board -Pain mx - Tylenol PRN, Oxycodone 5 mg q 8 hours PRN, Tramadol 100 mg q 8 hour PRN Chronic lower extremity edema - Improved Probably in setting of venous insufficiency, obesity Received IV diuretics with improvement, but with rising creatinine, held diuretics. -Restarted Home dose of Bumex today 2 mg - 1 mg - 2 mg from 01/13/19 -CXR on 01/12/19 - Mild pulmonary congestion similar to prior CXR, JARROD on CKD III Unclear baseline - Was 1.34 on 12/22 -Bumped up to 1.81, now trending down to 1.64 -Restarted Home dose of Bumex - 2 mg - 1 mg - 2 mg on 01/13/19 after holding IV lasix for 2 days -Monitor while on diuretics Hypokalemia -Resolved Coronary artery disease Nonobstructive CAD Continue with carvedilol, statin Hypertension Stable Continue with carvedilol, clonidine, hydralazine, minoxidil Anemia Likely anemia of chronic disease Iron testsnegative, folatenegative, FOBTnegative Obstructive sleep apnea Sleep apnea with associated pulmonary hypertension/edema -Intolerant of CPAP -On oxygen 2 L at nighttime Diabetes mellitus type 2 with complications At home on glipizide Hemoglobin A1c 6.7 Insulin sliding scale, Accu-Cheks Morbid obesity with BMI 5050 9.9 Contributing to multiple problemssleep apnea, pulmonary hypertension, diabetes, hypertension Counseling done about weight loss DVT prophylaxis SQ heparin Ambulate DISPOSITION Eager to be discharged home PT/OT recommends SNF- refused. Anticipated discharged home. Ok to go home today Primary Care follow-up with Comfort Almanzar PA-C ([facility]). Subjective Patient is feeling better. Out of bed to chair. Denies any worsening of SOB. No chest pain,fever, chills, cough. B/L lower extremity edema has improved. No redness or pain. Physical Exam Physical Exam: GENERAL- AAOX3, No acute distress, Morbidly Obese + LUNGS- Air entry bilaterally equal. No rales, rhonchi, crackles, wheezes heard. HEART- Regular rate and rhythm. No murmurs ABDOMEN- Soft, non tender, non distended, Bowel sounds heard. EXTREMITIES- B/L LE- Chronic lower extremity swelling, Erythema - improved superficial ulceration on right anterior leg NEUROMUSCULAR- AAOX3, Grossly no focal deficits Results & Data Vital Signs (Past 12 Hours) Vital Signs Temp Pulse Pulse Resp BP Pulse Ox 01/14/19 13:03 52 L 119/58 L 01/14/19 07:35 36.4 C L 62 17 130/70 90
--- NOTE | 2019-01-14 15:18 | Discharge Summary ---
Date of Service January 14, 2019 Admission HPI Per Admitting Provider HISTORY OF PRESENT ILLNESS: This is a 63-year-old male with past medical history significant for morbid obesity, obstructive sleep apnea, but noncompliant with CPAP, diabetes, hypertension, nonobstructive coronary artery disease, hyperlipidemia, depression, who comes because of ongoing edema and erythema on the lower extremity. The patient says he has always had lower extremity edema, but since last 1 month blisters are forming and they are bursting and getting a lot of pain and also he walks with the help of cane at home, he lives alone, his heels are hurting. He was seen in the ER on 12/22/2018 and he was given a dose of vancomycin and discharged on doxycycline and advised to follow with wound care. He is from [facility]. He says he follows with wound care there, but is not getting better. He came back to the ER today in ER white count is 13,000. His hemodynamics are stable. The patient denies any headache, no blurred vision, no earache, no runny nose, no sore throat, no difficulty swallowing. Appetite is okay. Sleeps in a chair. He says using CPAP causes congestion and not using it. Denies shortness of breath. No cough, no fever, no chills, no nausea, no abdominal pain. Normal bowel and bladder movements. No blood in the stools, no black stools, no hematuria, no burning micturitions. Patient lives alone, but he has nurses who come and help him. Principal Diagnosis 1. Bilateral lower extremity cellulitis 2. Acute kidney injury on chronic kidney disease stage III 3. Hypokalemia Secondary diagnoses on discharge 1. Chronic lower extremity edema 2. Coronary artery disease 3. Hypertension 4. Anemia 5. Diabetes mellitus type 2 with complications 6. Obstructive sleep apnea 7. Morbid obesity Discharge Exam GENERAL- AAOX3, No acute distress, Morbidly Obese + LUNGS- Air entry bilaterally equal. No rales, rhonchi, crackles, wheezes heard. HEART- Regular rate and rhythm. No murmurs ABDOMEN- Soft, non tender, non distended, Bowel sounds heard. EXTREMITIES- B/L LE- Dry skin, Chronic lower extremity swelling, Erythema - improved superficial ulceration on right anterior leg NEUROMUSCULAR- AAOX3, Grossly no focal deficits Discharge Data Allergies Allergy/AdvReac Type Severity Reaction Status Date / Time No Known Allergies Allergy Verified 01/04/19 21:36 Consultations 01/04/19 22:53 ED Decision to Admit Stat 01/05/19 00:42 Consult Case Management - Discharge Planning Routine 01/05/19 08:00 Consult General Surgery Routine Consult Infectious Diseases Routine 01/05/19 09:49 Consult Case Management - Discharge Planning Routine Ordered Studies 01/04/19 21:14 US venous doppler LE Stat Hospital Course (1) Bilateral cellulitis of lower leg: Bilateral lower extremity cellulitis - Resolved Chronic lower extremity edema in setting of Obesity hypoventilation syndrome/ Venous insufficiency. Presented with worsening erythema and pain. -Afebrile, Leucocytosis resolved -S/P IV Zosyn --> Transitioned to PO Doxycycline (Day 12/17) -IV lasix was on hold x 2 days --> Restarted on home bumex on 01/13/19 -Wound care on board -Pain mx - Tylenol PRN, Oxycodone 5 mg q 8 hours PRN, Tramadol 100 mg q 8 hour PRN Chronic lower extremity edema - Improved Probably in setting of venous insufficiency, obesity Weight is down Received IV diuretics with improvement, but with rising creatinine, held diuretics. -Restarted Home dose of Bumex today 2 mg - 1 mg - 2 mg from 01/13/19 -CXR on 01/12/19 - Mild pulmonary congestion similar to prior CXR, JARROD on CKD III Unclear baseline - Was 1.34 on 12/22 -Bumped up to 1.81, now trending down to 1.64 -Restarted Home dose of Bumex - 2 mg - 1 mg - 2 mg on 01/13/19 after holding IV lasix for 2 days -Repeat BMP for K, Creatinine level during next office appt Hypokalemia -Resolved Coronary artery disease Nonobstructive CAD Continue with carvedilol, statin Hypertension Stable Continue with carvedilol, clonidine, hydralazine, minoxidil Anemia Likely anemia of chronic disease Iron testsnegative, folatenegative, FOBTnegative Obstructive sleep apnea Sleep apnea with associated pulmonary hypertension/edema -Intolerant of CPAP -On oxygen 2 L at nighttime Diabetes mellitus type 2 with complications At home on glipizide Hemoglobin A1c 6.7 Insulin sliding scale, Accu-Cheks Morbid obesity with BMI 5050 9.9 Contributing to multiple problemssleep apnea, pulmonary hypertension, diabetes, hypertension Counseling done about weight loss DVT prophylaxis SQ heparin Ambulate DISPOSITION Eager to be discharged home PT/OT recommends SNF- refused. Anticipated discharged home. Ok to go home today Primary Care follow-up with Comfort Almanzar PA-C ([facility]). Total Time Total Time Spent Total Time Spent (In Minutes): 40 minutes Discharge Plan Discharge Items Patient Disposition: Home - Home Health Services Reason For Visit: CELLULITIS Discharge Diagnosis: 1. Bilateral lower extremity cellulitis 2. Acute kidney injury on chronic kidney disease Discharge Goals: Decrease discomfort and Improve disease control Activity: Resume your previous activity Non-emergency contact: Primary Care Provider Call non-emergency contact if: your symptoms worsen Follow-up/Referrals: Comfort Almanzar PA-C [Primary Care Provider] - (Please call for follow up appt within 7 days) Diet: Carb Consistent or DM2 and Low Sodium (2gm) Addtl Provider Instructions: You were admitted to the hospital for bilateral lower extremity cellulitis. You were treated with IV antibiotics. You were also given IV Lasix. Medication changes 1. [id number] mg p.o. twice a day for 4 more days to complete course of 10 days of antibiotics Monitor Need repeat creatinine/BMP levels during next office appointment Prescriptions: New doxycycline hyclate 100 mg Capsule 100 mg PO BID 4 Days Qty: 8 RF: 0 Continued atorvastatin 40 mg Tablet 40 mg PO DAILY RF: 0 carvedilol [Coreg] 25 mg tablet 50 mg PO BID RF: 0 sertraline 100 mg Tablet 100 mg PO DAILY RF: 0 hydralazine 25 mg Tablet 50 mg PO TID RF: 0 minoxidil 2.5 mg tablet 2.5 mg PO BID RF: 0 potassium chloride [Klor-Con M20] 20 mEq tablet,ER particles/crystals 20 meq PO BID RF: 0 glipizide [Glucotrol XL] 2.5 mg tablet extended release 24hr 2.5 mg PO DAILY RF: 0 ferrous sulfate [Iron (ferrous sulfate)] 325 mg (65 mg iron) tablet 325 mg PO BID RF: 0 bumetanide 1 mg tablet See Rx Instructions .ROUTE .COMPLEX RF: 0 montelukast [Singulair] 10 mg tablet 10 mg PO QPM RF: 0 allopurinol 300 mg Tablet 300 mg PO DAILY RF: 0 clonidine [Fpddrkgi-QQY-2] 0.3 mg/24 hr patch weekly 1 patch topical WK RF: 0 albuterol sulfate 90 mcg/actuation Hfa Aerosol Inhaler 2 puff INHALATION QID PRN (Reason: Shortness Of Breath Or Wheezing) RF: 0 calcitriol [Rocaltrol] 0.25 mcg capsule 0.5 mcg PO DAILY RF: 0 duloxetine [Cymbalta] 30 mg capsule,delayed release(DR/EC) 30 mg PO DAILY RF: 0 cholecalciferol (vitamin D3) [Vitamin D3] 1,000 unit Tablet 4,000 unit PO DAILY RF: 0 Spiriva Respimat 1.25 mcg/actuation mist 2 puff inhalation DAILY RF: 0 Discontinued amoxicillin-pot clavulanate [Augmentin] 875-125 mg Tablet 1 tab PO Q12H RF: 0 Stand-Alone Forms: [facility]/Other Patient Handouts: Hyperglycemia, Diabetes Type 2 Coping, Diabetes Meal Planning Discharge Orders: Discharge Order (Routine); Ordered 01/14/19 Ordered By: Brenda Porter Admission Data Admit Date/Time: 01/04/19 23:05 Attending Provider: Brenda Porter Admit Provider: Marcos Chavez Primary Care Provider: Comfort Almanzar Other Providers: Marcos Chavez ; Michael Ivory ; Jenni Alberto ; Valeriano Gutierrez ; Ernestine Rojo ; Shantanu Kaminski ; Javan Jones ; Yris Post ; Humberto Galicia ; Luiza Loyola ; Haim Garcia Jr ; Frederick Tamayo ; Sanam Vegas ; Shantanu Contreras ; Ori Zhao Service: Medical
== END 2019-01-14 18:32 | disposition home health service (06) | DRG 603 ==
LOC: ED 20:34 → SUATTDRO 23:05 → 4W 23:05 → 3N 01-06 10:32

== ENCOUNTER 2019-01-19 10:18 | Inpatient (IN) ==
[2019-01-19] MEDS ORDERED: MoRPHine SULFATE 4 MG/ML 1 ML CARP\\VIAL IV PRN (10:54)
[2019-01-19] MEDS ORDERED: ALBUT/IPRATROP 3MG/0.5MG NEB 3 ML VIAL NEB STA (10:54)
[2019-01-19] MEDS ORDERED: PIPERACILLIN/TAZOBACTAM 4.5 GM/120 ML BAG IV STA (10:54)
[2019-01-19 11:36] LABS: Basophils # (auto) 0.04 K/uL (0-0.2); Basophils % (auto) 0.4 %; Eosinophils % (auto) 3.1 %; Hemoglobin 10.3 g/dL (14.0-18.0); Immature Granulocytes # (auto) 0.03 K/uL (0.00-0.02); Immature Granulocytes % (auto) 0.3 %; Lymphocytes # (auto) 1.23 K/uL (1.2-3.4); Lymphocytes % (auto) 12.6 %; Mean Corpuscular Hgb Conc 33.2 g/dL (32-36); Mean Corpuscular Volume 91.7 fL (80-100); Mean Platelet Volume 9.4 fL (7.4-10.4); Monocytes # (auto) 0.77 K/uL (0.11-0.59); Monocytes % (auto) 7.9 %; Neutrophils # (auto) 7.42 K/uL (1.4-6.5); Neutrophils % (auto) 75.7 %; Platelet Count 229 K/uL (130-400); RDW Coefficient of Variation 14.9 % (11.5-14.5); RDW Standard Deviation 49.7 fL (36.4-46.3); Red Blood Count 3.38 M/uL (4.7-6.1); White Blood Count 9.79 K/uL (4.8-10.8)
--- NOTE | 2019-01-19 11:37 | XRay Report ---
XR chest 1V portable CLINICAL HISTORY: Shortness of breath COMPARISON STUDY: 01/12/2019 FINDINGS: The heart is enlarged. There is no focal pulmonary consolidation. There are no pleural effu sions. Slight interstitial prominence, likely relates to the patient's body habitus.[There is minor l inear left basilar subsegmental atelectatic change. IMPRESSION: Cardiomegaly. No acute findings. Electronically signed by: Kb Lee M.D. 01/19/2019 11:36 AM
[2019-01-19 11:49] LABS: Alanine Aminotransferase 29 U/L (12-78); Aspartate Aminotransferase 13 U/L (15-37); BUN Creatinine Ratio 14.3 (10-20); Blood Urea Nitrogen 25 mg/dl (7-18); Calcium 9.8 mg/dl (8.5-10.1); Carbon Dioxide 29 mmol/L (21-32); Chloride 103 mmol/L (98-107); Est GFR (African American) 47.7; Est GFR (Non-African American) 41.1; Glucose 137 mg/dl (70-99); INR 1.1 (0.9-1.1); Magnesium 2.4 mg/dl (1.8-2.4); Partial Thromboplastin Time 28.1 Seconds (21.0-31.0); Potassium 3.7 mmol/L (3.5-5.1); Prothrombin Time 11.2 Seconds (9.0-12.0); Sodium 141 mmol/L (136-145)
[2019-01-19 11:56] LABS: Albumin Globulin Ratio 0.8 (0.9-2); Alkaline Phosphatase 148 U/L (45-117); Bilirubin,Total 0.5 mg/dl (0.2-1); Globulin 3.9 gm/dl (2.5-4.0); NT Pro B Type Natriuretic Pept 1822 pg/ml (0-900); Total Protein 6.9 gm/dl (6.4-8.2); Troponin I < 0.015 ng/ml (0-0.045)
[2019-01-19] MEDS ORDERED: FUROSEMIDE 60 MG in SYRINGE 0 ML IV STA (11:59)
[2019-01-19] MEDS ORDERED: FUROSEMIDE 40 MG/4 ML VIAL IV ONE (12:54)
--- NOTE | 2019-01-19 13:55 | History & Physical Report ---
Date of Service January 19, 2019 Assessment & Plan (1) Bilateral cellulitis of lower leg: (2) Venous insufficiency: This is a 63-year-old male with a PMH of venous insufficiency, DM II, CKD III, CAD, HLD, FRANCIS intolerant to CPAP, morbid obesity and other medical problems listed below who presents with bilateral lower extremity wounds and swelling and was found to have bilateral lower extremity cellulitis in the setting of chronic venous insufficiency. -Third admission with wounds since December 2018 in setting of venous insufficiency, chronic BLE edema, morbid obesity -Wound culture from 01/06 grew skin speedy only. Discharged home on doxycycline (completed 10-day course this morning) -Afebrile and hemodynamically stable in the ED. Has bilateral BLE leg pain, edema and blistering wounds -Blood and wound cultures collected today. Started on empiric Zosyn and IV Lasix 60mg in ED -Continue Zosyn, follow blood cultures -Reassess volume status and continue IV diuresis with strict I&Os, daily weights, low sodium diet -Wound care consult placed -Pain control -Morphine PRN for now, plan to transition to PO agent tomorrow (3) Lower extremity edema: In setting of pulmonary hypertension, venous insufficiency. -Echo 01/05/19 with moderate concentric LVH, EF 60-65%, systolic pressure elevated at 40-50 mmhg -Given 60mg IV Lasix. Continue diuresis (4) Diabetes mellitus type 2 with complications: A1c 6.7 in December 2018 -Hold home agents -SSI while in-patient -BSG AC HS (5) Coronary artery disease: Nonobstructive CAD Continue carvedilol, statin (6) Hypertension: Continue carvedilol, clonidine, hydralazine, minoxidil (7) Sleep apnea: Intolerant to CPAP -2 L NC O2 at bedtime (8) Hyperlipidemia: Continue statin (9) Depression: Continue SSRI DVT Ppx: SQ heparin Code status: FULL PCP: LYNSEY Almanzar ([facility]) Dispo: Observation med tele. Discharge planning ordered. Patient seen in collaboration with Dr. Irwin. Please see addendum. History of Present Illness Chief Complaint: Lower extremity wounds Primary Care Provider: Comfort Almanzar This is a 63-year-old male with a PMH of venous insufficiency, DM II, CKD III, CAD, HLD, FRANCIS intolerant to CPAP, morbid obesity and other medical problems listed below who presents with bilateral lower extremity wounds and swelling. This is patient's third admission with wounds since December 2018. Was previously admitted from 01/05-01/14 with bilateral lower extremity cellulitis in the setting of chronic venous stasis and pulmonary hypertension. Underwent IV diuresis and antibiotic treatment with Zosyn. Wound culture from 01/06 grew probable skin speedy. Blood culture negative. Per ID, Vanco and Zosyn were discontinued and patient started on 10-day course of doxycycline, which he was discharged home with on 01/14 and completed this morning. Wounds had significantly improved prior to discharge, per patient, but he noticed new blisters on bilateral lower legs 3 days later similar to previous times. Endorses intermittent aching pain. Also with "shock-like" pain in bilateral feet that is chronic, due to patient's diabetic neuropathy. Was evaluated by home health today and sent in for further evaluation of lower extremity edema and cellulitis. Currently endorsing BLE aching and chronic pain in feet. Has had chills for the past 2 days. Denies fever, headache, lightheadedness, visual changes, cough, chest pain, shortness of breath, abdominal pain, nausea, vomiting, dysuria, constipation or diarrhea. Allergies Allergy/AdvReac Type Severity Reaction Status Date / Time No Known Allergies Allergy Verified 01/04/19 21:36 Home Medications Home Medications Medication Instructions Recorded Confirmed Type Spiriva Respimat 2 puff INHALATION DAILY 12/22/18 01/19/19 History albuterol sulfate 2 puff INHALATION QID PRN 12/22/18 01/19/19 History allopurinol 300 mg PO DAILY 12/22/18 01/19/19 History atorvastatin 40 mg PO DAILY 12/22/18 01/19/19 History bumetanide See Rx Instructions .ROUTE .COMPLEX 12/22/18 01/19/19 History calcitriol [Rocaltrol] 0.5 mcg PO DAILY 12/22/18 01/19/19 History carvedilol [Coreg] 50 mg PO BID 12/22/18 01/19/19 History cholecalciferol (vitamin D3) 4,000 unit PO DAILY 12/22/18 01/19/19 History [Vitamin D3] clonidine [Banatnxl-CPQ-7] 1 patch TOPICAL WK 12/22/18 01/19/19 History duloxetine [Cymbalta] 30 mg PO DAILY 12/22/18 01/19/19 History ferrous sulfate [Iron (ferrous 325 mg PO BID 12/22/18 01/19/19 History sulfate)] glipizide [Glucotrol XL] 2.5 mg PO DAILY 12/22/18 01/19/19 History hydralazine 50 mg PO TID 12/22/18 01/19/19 History minoxidil 2.5 mg PO BID 12/22/18 01/19/19 History montelukast [Singulair] 10 mg PO QPM 12/22/18 01/19/19 History potassium chloride [Klor-Con M20] 20 meq PO BID 12/22/18 01/19/19 History sertraline 100 mg PO DAILY 12/22/18 01/19/19 History doxycycline hyclate 100 mg PO DIRECTED 01/19/19 01/19/19 History Past Med/Surg History Medical History Venous insufficiency (Chronic) Diabetes mellitus, type II (Chronic) CHF (congestive heart failure) (Chronic) Hypertension (Chronic) Hyperlipidemia (Chronic) Morbid obesity (Chronic) Depression (Chronic) Coronary artery disease (Chronic) Surgical History H/O knee surgery (Chronic) Family History Other Throat cancer Social History Preferred Language: Gabonese Communication Ability: Effective Air Filler Required: No Beliefs That Will Affect Care: None marital status: Single Current Living Situation: Alone Feels Safe at Home: Yes Smoking Status: Never smoker Hx Alcohol Use: Yes Alcohol Intake Frequency: Rarely Hx Substance Use: No Review of Systems Review of Systems: At least ten systems reviewed and negative except as noted in the HPI. Physical Exam Physical Exam: General Appearance: WD/WN, in some distress 2/2 leg pain, morbidly obese Head: normocephalic, atraumatic Eyes: normal inspection, PERRL, EOMI ENT: hearing grossly normal, pharynx normal (moist mucous membranes) Neck: supple, no JVD, no adenopathy Respiratory/Chest: Bilateral expiratory wheezes. No rales or rhonci noted. No respiratory distress or accessory muscle use Cardiovascular: regular rate, rhythm, no murmur, normal peripheral pulses, 2+ BLE pitting edema Abdomen/GI: normal bowel sounds, soft, non-tender to palpation Extremities/Musculoskelatal: normal inspection, no calf tenderness, normal capillary refill Neurologic/Psych: alert, normal mood/affect, oriented x 3 Skin: normal color, warm/dry. BLE with hyperpigmentation 2/2 venous stasis with overlying erythema and warmth. Multiple blisters, some ulcerated with weeping, serous drainage. Results & Data Vital Signs (Past 12 Hours) Vital Signs Temp Pulse Pulse Resp BP BP Pulse Ox 01/19/19 12:56 54 L 18 121/42 L 96 01/19/19 11:47 90 20 121/42 L 96 01/19/19 11:24 60 16 93 01/19/19 10:20 36.6 C 61 18 129/60 95 Laboratory Results Short CBC 01/19/19 Range/Units 11:20 WBC 9.79 (4.8-10.8) K/uL Hgb 10.3 L (14.0-18.0) g/dL Hct 31.0 L (42-52) % Plt Count 229 (130-400) K/uL BMP 01/19/19 11:20 Sodium 141 Potassium 3.7 Chloride 103 Carbon Dioxide 29 BUN 25 H Creatinine 1.75 H Glucose 137 H Calcium 9.8 Cardiac Enzymes 01/19/19 Range/Units 11:20 Troponin I < 0.015 (0-0.045) ng/ml Liver Function 01/19/19 Range/Units 11:20 Total Bilirubin 0.5 (0.2-1) mg/dl AST 13 L (15-37) U/L ALT 29 (12-78) U/L Alkaline Phosphatase 148 H (45-117) U/L Albumin 3.0 L (3.4-5.0) gm/dl Diagnostic Findings CXR: IMPRESSION: Cardiomegaly. No acute findings. Supervising Physician Co-Signing Physician Notes Pt was seen and examined and examined. Agreed with Hannah MENON exam, assessment and plan. 63-year-old male with a PMH of venous insufficiency with multiple admission for Lower extremity wound, DM II, CKD III, CAD, HLD, FRANCIS intolerant to CPAP, morbid obesity present to the ER with bilateral lower extremity wounds and swelling. Pt said that he was discharged on doxycycline and completed the course today. In the ER IV zosyn and lasix given. Blood cx and wound cx collected. Will continue IV Zosyn for now. Will monitor BMP closely since received IV lasix. Will re-evaluate tomorrow for additional lasix. Continue daily wound care. Wound care nurse consulted. MD Dc
--- NOTE | 2019-01-19 14:33 | Emergency Department Note ---
Entered by Sonal Rosas acting as a scribe for History of Present Illness General Chief complaint: Swelling/Edema to Extremity Stated complaint: foot pain Time Seen by Provider: 01/19/19 10:49 Source: patient Mode of arrival: EMS Limitations: no limitations History of Present Illness Onset (ago): day(s) 5 Location: lower extremity (bilateral feet) Radiation: extremity Pain Consistency: + constant Maximum Pain Intensity: 10 Current Pain Intensity: 10 Relieved By: + none Exacerbated By: + movement Associated symptoms: no shortness of breath Treatments prior to arrival: none The patient is a 63 year old male who presents to the ED with complaints of worsening bilateral LE pain and swelling. He was brought to the ED via EMS. He was discharged on 01/14/19 from here at [facility] where he was diagnosed with LE cellulitis and JARROD. He was discharged on oral doxycycline. He states his pain has worsened, so he called EMS. He lives alone but states he has home health nurses from [facility] who come in to help. He rates his discomfort as a 10/10 in severity. Any movement worsens his pain. He states he does not have pain medication to take at home. He is able to ambulate with a walker but states ambulation is painful. He does still make urine and is taking a daily diuretic. The patient denies any shortness of breath or worsening breathing issues. Home Medications Home Medications Medication Instructions Recorded Confirmed Type Spiriva Respimat 2 puff INHALATION DAILY 12/22/18 01/19/19 History albuterol sulfate 2 puff INHALATION QID PRN 12/22/18 01/19/19 History allopurinol 300 mg PO DAILY 12/22/18 01/19/19 History atorvastatin 40 mg PO DAILY 12/22/18 01/19/19 History bumetanide See Rx Instructions .ROUTE .COMPLEX 12/22/18 01/19/19 History calcitriol [Rocaltrol] 0.5 mcg PO DAILY 12/22/18 01/19/19 History carvedilol [Coreg] 50 mg PO BID 12/22/18 01/19/19 History cholecalciferol (vitamin D3) 4,000 unit PO DAILY 12/22/18 01/19/19 History [Vitamin D3] clonidine [[id number]-9] 1 patch TOPICAL WK 12/22/18 01/19/19 History duloxetine [Cymbalta] 30 mg PO DAILY 12/22/18 01/19/19 History ferrous sulfate [Iron (ferrous 325 mg PO BID 12/22/18 01/19/19 History sulfate)] glipizide [Glucotrol XL] 2.5 mg PO DAILY 12/22/18 01/19/19 History hydralazine 50 mg PO TID 12/22/18 01/19/19 History minoxidil 2.5 mg PO BID 12/22/18 01/19/19 History montelukast [Singulair] 10 mg PO QPM 12/22/18 01/19/19 History potassium chloride [Klor-Con M20] 20 meq PO BID 12/22/18 01/19/19 History sertraline 100 mg PO DAILY 12/22/18 01/19/19 History doxycycline hyclate 100 mg PO DIRECTED 01/19/19 01/19/19 History Allergies Allergy/AdvReac Type Severity Reaction Status Date / Time No Known Allergies Allergy Verified 01/04/19 21:36 Past Med/Surg History Medical History Venous insufficiency (Chronic) Diabetes mellitus, type II (Chronic) CHF (congestive heart failure) (Chronic) Hypertension (Chronic) Hyperlipidemia (Chronic) Morbid obesity (Chronic) Depression (Chronic) Coronary artery disease (Chronic) Surgical History H/O knee surgery (Chronic) Family History Other Throat cancer Social History Preferred Language: Estonian Communication Ability: Effective Corporate Executive Required: No Beliefs That Will Affect Care: None marital status: Single Current Living Situation: Alone Feels Safe at Home: Yes Smoking Status: Never smoker Hx Alcohol Use: Yes Alcohol Intake Frequency: Rarely Hx Substance Use: No Review of Systems See HPI for pertinent positives & negatives. and A total of 10 systems reviewed and were otherwise negative Physical Exam Vital Signs Vital Signs - 24 hr 01/19/19 10:20 01/19/19 11:24 01/19/19 11:47 Temperature 36.6 C Temperature Source Oral Sepsis Recent Fever Within 48 Hours No Sepsis New/Unexplained Change in Mental Status No Sepsis Action Taken by Nursing No Action Required Pulse Rate 61 Pulse Rate [Apical] 60 90 Respiratory Rate 18 16 20 Respiratory Effort / Characteristics Non-Labored Non-Labored Spontaneous Non-Labored Respiratory Depth Normal Normal Blood Pressure 129/60 Blood Pressure [Right Arm] 121/42 L Blood Pressure Mean 83 Blood Pressure Mean [Right Arm] 68 Pulse Oximetry 95 93 96 Oxygen Delivery Method Room Air Room Air Room Air 01/19/19 12:56 Temperature Temperature Source Sepsis Recent Fever Within 48 Hours Sepsis New/Unexplained Change in Mental Status Sepsis Action Taken by Nursing Pulse Rate Pulse Rate [Apical] 54 L Respiratory Rate 18 Respiratory Effort / Characteristics Respiratory Depth Blood Pressure Blood Pressure [Right Arm] 121/42 L Blood Pressure Mean Blood Pressure Mean [Right Arm] 68 Pulse Oximetry 96 Oxygen Delivery Method GENERAL: Patient is in no acute distress. HEENT: No acute trauma, normocephalic atraumatic, mucous membranes moist, no nasal congestion, no scleral icterus. NECK: No stridor, no adenopathy, no meningismus, trachea is midline. LUNGS: Scattered wheezing, equal breath sounds, no respiratory distress. HEART: Without murmurs gallops or rubs, regular rate and rhythm. ABDOMEN: Soft, nontender, bowel sounds positive, no hernias, no peritonitis. EXTREMITIES: Significant bilateral pedal edema, erythema to both LE noted, increased warmth to LE noted, has blisters, some of which have opened, to both LE and feet, weeping clear fluid. NEUROLOGIC: Oriented x 3, no acute motor or sensory deficits, no focal weakness. SKIN: No rash, no jaundice, no diaphoresis. Course 1052: The patient was evaluated in room A9 and a complete history and physical were performed. 1202: I discussed the patients case with TOÑA Griffiths [facility] Hospitalist. The patient will be further evaluated. 1215: I reevaluated the patient. I discussed my recommendation he remain in the hospital for further evaluation and management and he verbalized complete understanding and agreement. Consultations Consultation #1: I discussed the patients case with TOÑA Griffiths [facility] Hospitalist. The patient will be further evaluated. Time: 12:02 Administered Medications Miscellaneous (Check Clonidine Patch) 1 ea N/A QS ZOHAIB Stop: 02/18/19 15:59 Last Admin: 01/19/19 15:28 Dose: 1 ea Documented by: [id number] Morphine Sulfate (Morphine Sulfate) 4 mg IV Q4H PRN PRN Reason: Pain Stop: 02/02/19 14:47 Last Admin: 01/19/19 15:25 Dose: 4 mg Documented by: [id number] Discontinued Medications Albuterol (Duoneb) 3 ml NEB NOW STA Stop: 01/19/19 10:55 Last Admin: 01/19/19 11:22 Dose: 3 ml Documented by: [id number] Furosemide (Lasix) Confirm Administered Dose 80 mg IV .STK-MED ONE Stop: 01/19/19 12:55 Last Admin: 01/19/19 12:56 Dose: 60 mg Documented by: [id number] Hydralazine HCl (Apresoline) 50 mg PO ONE ONE Stop: 01/19/19 15:01 Last Admin: 01/19/19 15:23 Dose: 50 mg Documented by: [id number] Piperacillin Sod/Tazobactam Sod (Zosyn) 4.5 gm in 120 mls @ 200 mls/hr IV NOW STA Stop: 01/19/19 11:29 Last Infusion: 01/19/19 12:23 Dose: 0 mls/hr Documented by: [id number] Admin: 01/19/19 11:47 Dose: 200 mls/hr Documented by: [id number] Furosemide 60 mg/ Syringe 6 mls @ 4 mls/min IV NOW STA Stop: 01/19/19 12:00 Last Admin: 01/19/19 12:56 Dose: Not Given Documented by: [id number] Morphine Sulfate (Morphine Sulfate) 4 mg IV Q30M PRN PRN Reason: Pain Stop: 02/02/19 10:53 Last Admin: 01/19/19 11:47 Dose: 4 mg Documented by: [id number] Medical Decision Making Differential Diagnosis The differential diagnoses considered include fluid overload, CHF, renal or liver failure, JARROD, cellulitis, medication noncompliance, venous stasis. Medical Records Attestation: I reviewed the patient's medical records. Home Medications Current Medication List: was personally reviewed by me Laboratory Data Attestation: I reviewed the patient's lab results. Result diagrams: 01/19/19 11:20 01/19/19 11:20 Lab Results 01/19/19 01/19/19 01/19/19 Range/Units 11:20 11:20 11:20 WBC (4.8-10.8) K/uL RBC (4.7-6.1) M/uL Hgb (14.0-18.0) g/dL Hct (42-52) % MCV (80-100) fL MCH (25-34) pg MCHC (32-36) g/dL RDW Std Deviation (36.4-46.3) fL RDW Coeff of Xin (11.5-14.5) % Plt Count (130-400) K/uL MPV (7.4-10.4) fL Immature Gran % (Auto) % Neut % (Auto) % Lymph % (Auto) % Wilkinson % (Auto) % Eos % (Auto) % Baso % (Auto) % Immature Gran # (Auto) (0.00-0.02) K/uL Neut # (Auto) (1.4-6.5) K/uL Lymph # (Auto) (1.2-3.4) K/uL Wilkinson # (Auto) (0.11-0.59) K/uL Eos # (Auto) (0-0.5) K/uL Baso # (Auto) (0-0.2) K/uL PT 11.2 (9.0-12.0) Seconds INR 1.1 (0.9-1.1) APTT 28.1 (21.0-31.0) Seconds PTT Ratio 1.0 Sodium 141 (136-145) mmol/L Potassium 3.7 (3.5-5.1) mmol/L Chloride 103 (98-107) mmol/L Carbon Dioxide 29 (21-32) mmol/L Anion Gap 9.0 (3-11) BUN 25 H (7-18) mg/dl Creatinine 1.75 H (0.6-1.4) mg/dl Est Cr Clr Drug Dosing 76.0 ml/min Est GFR ( Amer) 47.7 Est GFR (Non-Af Amer) 41.1 BUN/Creatinine Ratio 14.3 (10-20) Glucose 137 H (70-99) mg/dl Lactate 1.7 (0.4-2.0) mmol/L Calcium 9.8 (8.5-10.1) mg/dl Magnesium 2.4 (1.8-2.4) mg/dl Total Bilirubin 0.5 (0.2-1) mg/dl AST 13 L (15-37) U/L ALT 29 (12-78) U/L Alkaline Phosphatase 148 H (45-117) U/L Troponin I < 0.015 (0-0.045) ng/ml NT-Pro-B Natriuret Pep 1822 H (0-900) pg/ml Total Protein 6.9 (6.4-8.2) gm/dl Albumin 3.0 L (3.4-5.0) gm/dl Globulin 3.9 (2.5-4.0) gm/dl Albumin/Globulin Ratio 0.8 L (0.9-2) 01/19/19 Range/Units 11:20 WBC 9.79 (4.8-10.8) K/uL RBC 3.38 L (4.7-6.1) M/uL Hgb 10.3 L (14.0-18.0) g/dL Hct 31.0 L (42-52) % MCV 91.7 (80-100) fL MCH 30.5 (25-34) pg MCHC 33.2 (32-36) g/dL RDW Std Deviation 49.7 H (36.4-46.3) fL RDW Coeff of Xin 14.9 H (11.5-14.5) % Plt Count 229 (130-400) K/uL MPV 9.4 (7.4-10.4) fL Immature Gran % (Auto) 0.3 % Neut % (Auto) 75.7 % Lymph % (Auto) 12.6 % Wilkinson % (Auto) 7.9 % Eos % (Auto) 3.1 % Baso % (Auto) 0.4 % Immature Gran # (Auto) 0.03 H (0.00-0.02) K/uL Neut # (Auto) 7.42 H (1.4-6.5) K/uL Lymph # (Auto) 1.23 (1.2-3.4) K/uL Wilkinson # (Auto) 0.77 H (0.11-0.59) K/uL Eos # (Auto) 0.30 (0-0.5) K/uL Baso # (Auto) 0.04 (0-0.2) K/uL PT (9.0-12.0) Seconds INR (0.9-1.1) APTT (21.0-31.0) Seconds PTT Ratio Sodium (136-145) mmol/L Potassium (3.5-5.1) mmol/L Chloride (98-107) mmol/L Carbon Dioxide (21-32) mmol/L Anion Gap (3-11) BUN (7-18) mg/dl Creatinine (0.6-1.4) mg/dl Est Cr Clr Drug Dosing ml/min Est GFR ( Amer) Est GFR (Non-Af Amer) BUN/Creatinine Ratio (10-20) Glucose (70-99) mg/dl Lactate (0.4-2.0) mmol/L Calcium (8.5-10.1) mg/dl Magnesium (1.8-2.4) mg/dl Total Bilirubin (0.2-1) mg/dl AST (15-37) U/L ALT (12-78) U/L Alkaline Phosphatase (45-117) U/L Troponin I (0-0.045) ng/ml NT-Pro-B Natriuret Pep (0-900) pg/ml Total Protein (6.4-8.2) gm/dl Albumin (3.4-5.0) gm/dl Globulin (2.5-4.0) gm/dl Albumin/Globulin Ratio (0.9-2) Imaging Data Radiologist's Impression: Radiology results as stated below per my review and the radiologist's interpretation: XR chest 1V portable CLINICAL HISTORY: Shortness of breath COMPARISON STUDY: 01/12/2019 FINDINGS: The heart is enlarged. There is no focal pulmonary consolidation. There are no pleural effusions. Slight interstitial prominence, likely relates to the patient's body habitus.[There is minor linear left basilar subsegmental atelectatic change. IMPRESSION: Cardiomegaly. No acute findings. Electronically signed by: Kb Lee M.D. 01/19/2019 11:36 AM ECG Data Attestation: I personally reviewed and interpreted this ECG as follows: Indication: other (Swelling to bilateral LE) Rate (beats per minute): 57 Rhythm: sinus bradycardia Findings: + RBBB; no PVC and no ST elevation Blood Pressure Blood Pressure Findings: Normal blood pressure MDM Narrative There is no leukocytosis. The patient is anemic but this is baseline looking back at previous testing. No coagulopathy. Renal panel testing does show a sl ight creatinine elevation at 1.75, this is somewhat above his baseline value. Lactic acid level is not elevated making sepsis less likely. Alk phos was somewhat elevated at 148, the bilirubin was normal. BNP was quite elevated at 1822. Chest film shows some chronic parenchymal change, no pneumonia or true CHF. EKG shows sinus bradycardia, no acute ischemia. Cardiac enzyme testing x1 is not consistent with acute cardiac injury. On exam, the patient has significant bilateral pedal edema with blistering. There was erythema and warmth consistent with cellulitis. The patient received a DuoNeb. He was given IV Lasix, IV morphine and IV Zosyn. The patient presents to the ED with leg pain, swelling and redness. He had a similar presentation about a week ago. He is doing poorly at home and things have escalated to the point where his home nurse called the ambulance. Patient does require a hospital stay. He needs diuresis, he needs antibiotic therapy. The wounds/blisters on his legs I suspect will be very slow healing. I did speak with the patient, I talked with the trucking manager. The on-call hospitalist was consulted. Impression & Plan Fluid overload, Pedal edema, Cellulitis Discharge Plan Visit Data *Final* Discharge Date/Time: 01/19/19 14:10 Chief Complaint: Swelling/Edema to Extremity Stated Complaint: foot pain ED Provider: Theron Engel Discharge Problem: Fluid overload, Pedal edema, Cellulitis Patient Disposition: Admitted As Inpatient Discharge Instructions Interventions: ED Discharge Assessment Last Done: 01/19/19 14:10 The youngibsilvia's documentation has been prepared under my direction and personally reviewed by me in its entirety. I confirm that the note above accurately reflects all work, treatment, procedures, and medical decision making performed by me.
[2019-01-19] MEDS ORDERED: ACETAMINOPHEN 325 MG TAB PO PRN (14:48)
[2019-01-19] MEDS ORDERED: GLUCOSE 40% GEL 15 GM TUBE PO PRN (14:48)
[2019-01-19] MEDS ORDERED: ALBUTEROL HFA 8 GM INHALER INH PRN (14:48)
[2019-01-19] MEDS ORDERED: CARBOHYDRATES FOR HYPOGLYCEMIA PO PRN (14:48)
[2019-01-19] MEDS ORDERED: GLUCOSE 10 TABS/TUBE PO PRN (14:48)
[2019-01-19] MEDS ORDERED: GLUCAGON FOR INJ 1 MG VIAL SQ PRN (14:48)
[2019-01-19] MEDS ORDERED: DEXTROSE 50% 50 ML SYRINGE IV PRN (14:48)
[2019-01-19] MEDS ORDERED: PIPERACILL/TAZOBAC CONSULT ACTIVE PRN (14:57)
[2019-01-19] MEDS: MoRPHine SULFATE 4 MG/ML 1 ML CARP\\VIAL IV PRN ×2 (15:25→19:49)
[2019-01-19] MEDS: CHECK CLONIDINE PATCH PLACEMENT SCH (15:28)
[2019-01-19 16:27] LABS: Appearance Urine Clear (Clear); Bilirubin Urine Negative (Negative); Blood Urine Negative (Negative); Color Urine Yellow; Glucose Urine UA Negative (Negative); Ketones Urine Negative (Negative); Leukocyte Esterase Urine Negative (Negative); Nitrite Urine Negative (Negative); Protein Urine Negative (Negative); Specific Gravity Urine 1.013 (1.000-1.030); Urobilinogen Urine Negative (Negative); pH Urine 7.5 (4.5-7.5)
[2019-01-19] MEDS: PIPERACILLIN/TAZOBACTAM 4.5 GM in DEXTROSE 5% 100 ML IV SCH (18:24)
[2019-01-19] MEDS: INSULIN ASPART 100 UNITS/ML 3 ML PEN SC SCH ×2 (18:25→21:10)
[2019-01-19] MEDS: FERROUS SULFATE 325 MG TAB PO SCH (18:26)
[2019-01-19] MEDS: MONTELUKAST SODIUM 10 MG TABLET PO SCH (19:50)
[2019-01-19] MEDS: CARVEDILOL 25 MG TAB PO SCH (19:51)
[2019-01-19] MEDS: HydrALAZINE TAB 50 MG TAB PO SCH (19:51)
[2019-01-19] MEDS: POTASSIUM CHLORIDE 20 MEQ TABCR PO SCH (19:51)
[2019-01-19] MEDS: HEPARIN SOD 5,000 UNIT/0.5 ML VIAL SQ SCH (21:10)
[2019-01-20] MEDS: CHECK CLONIDINE PATCH PLACEMENT SCH ×4 (00:07→23:32)
[2019-01-20] MEDS: MoRPHine SULFATE 4 MG/ML 1 ML CARP\\VIAL IV PRN ×4 (00:07→18:45)
[2019-01-20] MEDS: PIPERACILLIN/TAZOBACTAM 4.5 GM in DEXTROSE 5% 100 ML IV SCH ×3 (02:08→18:42)
[2019-01-20] MEDS: HEPARIN SOD 5,000 UNIT/0.5 ML VIAL SQ SCH ×3 (05:52→21:35)
[2019-01-20 06:48] LABS: Hematocrit (blood only) 28.4 % (42-52); Hemoglobin 9.4 g/dL (14.0-18.0); Mean Corpuscular Hgb Conc 33.1 g/dL (32-36); Mean Corpuscular Volume 91.6 fL (80-100); Platelet Count 193 K/uL (130-400); RDW Coefficient of Variation 14.8 % (11.5-14.5); RDW Standard Deviation 49.7 fL (36.4-46.3); White Blood Count 9.27 K/uL (4.8-10.8)
[2019-01-20 07:16] LABS: BUN Creatinine Ratio 13.6 (10-20); Calcium 9.6 mg/dl (8.5-10.1); Creatinine Clr Calc Pharmacy 68.1 ml/min; Est GFR (African American) 42.8; Potassium 3.7 mmol/L (3.5-5.1)
[2019-01-20] MEDS: INSULIN ASPART 100 UNITS/ML 3 ML PEN SC SCH ×4 (08:32→21:35)
[2019-01-20] MEDS: ALLOPURINOL 300 MG TAB PO SCH (08:33)
[2019-01-20] MEDS: FERROUS SULFATE 325 MG TAB PO SCH ×2 (08:33→18:47)
[2019-01-20] MEDS: POTASSIUM CHLORIDE 20 MEQ TABCR PO SCH ×2 (08:33→21:33)
[2019-01-20] MEDS: HydrALAZINE TAB 50 MG TAB PO SCH ×3 (08:33→21:34)
[2019-01-20] MEDS: SERTRALINE HCL 100 MG TABLET PO SCH (08:34)
[2019-01-20] MEDS: DULOXETINE HCL 30 MG CAP PO SCH (08:34)
[2019-01-20] MEDS: CARVEDILOL 25 MG TAB PO SCH ×2 (08:34→21:34)
[2019-01-20] MEDS: CALCITRIOL 0.25 MCG CAPSULE PO SCH (08:34)
[2019-01-20] MEDS: CHOLECALCIFEROL 1,000 UNITS TAB PO SCH (08:38)
[2019-01-20] MEDS: ATORVASTATIN 40 MG TAB PO SCH (08:39)
[2019-01-20] MEDS: TIOTROPIUM BROMIDE 5 PUFF/90 MCG INH INH SCH (08:40)
[2019-01-20] MEDS ORDERED: cloNIDine HCL 0.3 MG/24 HR TRANSDERM SYS TD SCH (09:00)
--- NOTE | 2019-01-20 19:24 | Hospitalist Progress Note ---
Date of Service January 20, 2019 Assessment & Plan (1) Bilateral cellulitis of lower leg: (2) Venous insufficiency: Presents with bilateral lower extremity wounds and swelling Multiple hospital admission with wounds since December 2018 in setting of venous insufficiency, chronic BLE edema, morbid obesity Wound culture from 01/06 grew skin speedy only. Just completed course of doxycycline Wound cx positive for coag negative staph and gram negative bacilli Continue IV zosyn Continue daily wound care Wound care on board Will consult ID for abx on discharge (3) Lower extremity edema: In setting of pulmonary hypertension, venous insufficiency. Echo 01/05/19 with moderate concentric LVH, EF 60-65%, systolic pressure elevated at 40-50 mmhg Lasix 60mg IV given yesterday Will hold additional lasix today due to elevated creatinine (4) Acute kidney injury: Creatinine increased to 1.9 today Received Lasix 60mg IV on admission Hold any additional lasix for now Monitor BMP (5) Diabetes mellitus type 2 with complications: A1c 6.7 in December 2018 Continue to hold home agents SSI while in-patient BSG AC HS (6) Coronary artery disease: Nonobstructive CAD Continue carvedilol, statin (7) Hypertension: Continue carvedilol, clonidine, hydralazine, minoxidil (8) Sleep apnea: Intolerant to CPAP Continue 2 L NC O2 at bedtime (9) Hyperlipidemia: Continue statin (10) Depression: Continue SSRI DVT Ppx: SQ heparin Code status: FULL Subjective Pt was seen and examined Lying in bed with no distress Pt said that he is having a burning pain in the left LE Denies any chest pain, palpitation, dizziness and SOB Physical Exam Physical Exam: General- No acute distress Head- atraumatic Eyes- PERRL, EOMI, ENT- oropharynx clear Neck- supple, no JVD Lungs- +expiratory wheezing Heart- regular rhythm; no murmur Abdomen- normal bowel sounds, soft, nontender Extremities- + tenderness due to skin ulcers, +edema Neuro- alert, oriented x 3; PERRL, EOMI; no facial palsy; no dysarthria Skin- warm & dry, BLE with hyperpigmentation 2/2 venous stasis with overlying erythema and warmth. Multiple blisters, some ulcerated with weeping, serous drainage. Results & Data Vital Signs (Past 12 Hours) Vital Signs Temp Pulse Pulse Resp BP Pulse Ox 01/20/19 16:00 61 01/20/19 12:19 36.7 C 62 18 154/69 H 97 01/20/19 07:34 36.7 C 56 L 59 L 22 131/66 96
[2019-01-20] MEDS: MONTELUKAST SODIUM 10 MG TABLET PO SCH (21:35)
[2019-01-21] MEDS: PIPERACILLIN/TAZOBACTAM 4.5 GM in DEXTROSE 5% 100 ML IV SCH ×2 (01:27→13:01)
[2019-01-21] MEDS: MoRPHine SULFATE 4 MG/ML 1 ML CARP\\VIAL IV PRN ×4 (01:31→21:24)
[2019-01-21] MEDS: HEPARIN SOD 5,000 UNIT/0.5 ML VIAL SQ SCH ×3 (05:30→21:15)
[2019-01-21 07:52] LABS: Hematocrit (blood only) 27.5 % (42-52); Hemoglobin 8.8 g/dL (14.0-18.0); Mean Corpuscular Volume 92.6 fL (80-100); Mean Platelet Volume 9.7 fL (7.4-10.4); Platelet Count 206 K/uL (130-400); RDW Coefficient of Variation 14.7 % (11.5-14.5); Red Blood Count 2.97 M/uL (4.7-6.1); White Blood Count 8.46 K/uL (4.8-10.8)
[2019-01-21 08:23] LABS: BUN Creatinine Ratio 12.7 (10-20); Calcium 9.7 mg/dl (8.5-10.1); Creatinine Clr Calc Pharmacy 71.1 ml/min; Est GFR (African American) 44.8; Est GFR (Non-African American) 38.7; Potassium 3.8 mmol/L (3.5-5.1)
[2019-01-21] MEDS: ATORVASTATIN 40 MG TAB PO SCH (08:26)
[2019-01-21] MEDS: INSULIN ASPART 100 UNITS/ML 3 ML PEN SC SCH ×4 (08:26→21:14)
[2019-01-21] MEDS: ALLOPURINOL 300 MG TAB PO SCH (08:26)
[2019-01-21] MEDS: CHOLECALCIFEROL 1,000 UNITS TAB PO SCH (08:27)
[2019-01-21] MEDS: CARVEDILOL 25 MG TAB PO SCH ×2 (08:28→21:13)
[2019-01-21] MEDS: FERROUS SULFATE 325 MG TAB PO SCH ×2 (08:28→17:32)
[2019-01-21] MEDS: DULOXETINE HCL 30 MG CAP PO SCH (08:29)
[2019-01-21] MEDS: POTASSIUM CHLORIDE 20 MEQ TABCR PO SCH ×2 (08:29→21:13)
[2019-01-21] MEDS: HydrALAZINE TAB 50 MG TAB PO SCH ×3 (08:29→21:13)
[2019-01-21] MEDS: CALCITRIOL 0.25 MCG CAPSULE PO SCH (08:29)
[2019-01-21] MEDS: TIOTROPIUM BROMIDE 5 PUFF/90 MCG INH INH SCH (08:30)
[2019-01-21] MEDS: CHECK CLONIDINE PATCH PLACEMENT SCH ×3 (08:30→23:11)
[2019-01-21] MEDS: SERTRALINE HCL 100 MG TABLET PO SCH (08:31)
--- NOTE | 2019-01-21 10:53 | Infectious Disease Consult ---
Date of Consultation January 21, 2019 Assessment & Plan (1) Bilateral cellulitis of lower leg: will change zosyn to cipro based on culture results. would give 14 days, no additional doxy. fluid management, ongoing wound care joseph to wound healing. Strongly encourage regular followup with wound center vs lymphedema clinic upon d/c. (2) Venous insufficiency: History of Present Illness Attending Physician: Mikki Irwin MD pt admitted with increased b/l leg pain and swelling. was recently admitted for same and d/c 01/14 on po doxy. 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 afebrile. Re-admitted with ongoing pain and weeping from legs. wound culture obtained b/l legs, both again grew SWEET [employer] MACHINE OPERATOR, no sensitivity done, left leg also growing Enterobacter, sensitive to cipro and ertapenem, I to zosyn. He was placed on emperic zosyn on admission and remains on this, tolerating well. C/O pain, dressing intact with serous weeping, still with edema. no cp, sob, cough, no abd pain, no n/v/d. no gu symptoms. wbc 8.4 UA and CXR negative, creat 1.8. Allergies Allergy/AdvReac Type Severity Reaction Status Date / Time No Known Allergies Allergy Verified 01/04/19 21:36 Home Medications Home Medications Medication Instructions Recorded Confirmed Type Spiriva Respimat 2 puff INHALATION DAILY 12/22/18 01/19/19 History albuterol sulfate 2 puff INHALATION QID PRN 12/22/18 01/19/19 History allopurinol 300 mg PO DAILY 12/22/18 01/19/19 History atorvastatin 40 mg PO DAILY 12/22/18 01/19/19 History bumetanide See Rx Instructions .ROUTE .COMPLEX 12/22/18 01/19/19 History calcitriol [Rocaltrol] 0.5 mcg PO DAILY 12/22/18 01/19/19 History carvedilol [Coreg] 50 mg PO BID 12/22/18 01/19/19 History cholecalciferol (vitamin D3) 4,000 unit PO DAILY 12/22/18 01/19/19 History [Vitamin D3] clonidine [Uckigwme-HDS-1] 1 patch TOPICAL WK 12/22/18 01/19/19 History duloxetine [Cymbalta] 30 mg PO DAILY 12/22/18 01/19/19 History ferrous sulfate [Iron (ferrous 325 mg PO BID 12/22/18 01/19/19 History sulfate)] glipizide [Glucotrol XL] 2.5 mg PO DAILY 12/22/18 01/19/19 History hydralazine 50 mg PO TID 12/22/18 01/19/19 History minoxidil 2.5 mg PO BID 12/22/18 01/19/19 History montelukast [Singulair] 10 mg PO QPM 12/22/18 01/19/19 History potassium chloride [Klor-Con M20] 20 meq PO BID 12/22/18 01/19/19 History sertraline 100 mg PO DAILY 12/22/18 01/19/19 History doxycycline hyclate 100 mg PO DIRECTED 01/19/19 01/19/19 History Patient History Medical History Venous insufficiency (Chronic) Diabetes mellitus, type II (Chronic) CHF (congestive heart failure) (Chronic) Hypertension (Chronic) Hyperlipidemia (Chronic) Morbid obesity (Chronic) Depression (Chronic) Coronary artery disease (Chronic) Surgical History H/O knee surgery (Chronic) Family History Other Throat cancer Social History Preferred Language: Omani Communication Ability: Effective Cytology Manager Required: No Beliefs That Will Affect Care: None marital status: Single Current Living Situation: Alone Other Information That Helps Us Care for You: No Feels Safe at Home: Yes Safety Concerns: Feels Safe At This Time Smoking Status: Never smoker Hx Alcohol Use: Yes Alcohol Intake Frequency: Rarely Hx Substance Use: No Review of Systems Review of Systems: All systems reviewed & are unremarkable except as noted in HPI & below Physical Exam Constitutional: WD/WN, vitals as above Eyes: PERRL, conjunctivae normal, anicteric sclerae ENMT: external ear and nose normal, oropharynx normal Neck: normal visual inspection Respiratory: normal respiratory effort, lungs clear to auscultation Auscultation: + diminished lung sounds Cardiovascular: Rate/Rhythm: regular rate and regular rhythm Extremities: + calf tenderness, + pedal edema and + edema Gastrointestinal (Abdomen): normal bowel sounds, soft, nontender, no hepatosplenomegaly Musculoskeletal: no cyanosis or clubbing, extremities motor strength 5/5 Skin: + ulcer and + wound (b/l leg blistering with weeping of serous fluid, no purulent drainage) Psychiatric: A+Ox3, euthymic affect Results & Data Vital Signs (Past 12 Hours) Vital Signs Temp Pulse Pulse Resp BP Pulse Ox 01/21/19 08:10 36.9 C 56 L 18 159/71 H 93 01/21/19 07:48 54 L 01/21/19 03:17 36.8 C 60 20 130/70 95 01/21/19 00:00 65 01/20/19 23:31 36.8 C 62 20 132/69 94 Laboratory Results Microbiology 01/19/19 15:45 Leg,Right Gram Stain - Final 01/19/19 15:45 Leg,Right Wound Culture - Final Coag negative Staphylococcus 01/19/19 15:45 Leg,Left Gram Stain - Final 01/19/19 15:45 Leg,Left Wound Culture - Preliminary Enterobacter cloacae Coag negative Staphylococcus 01/19/19 11:05 Blood Aerobic Blood Culture - Preliminary No growth in Aerobic bottle after 24 hours. 01/19/19 11:05 Blood Anaerobic Blood Culture - Preliminary No growth in Anaerobic bottle after 24 hours. 01/19/19 11:20 Blood Aerobic Blood Culture - Preliminary No growth in Aerobic bottle after 24 hours. 01/19/19 11:20 Blood Anaerobic Blood Culture - Preliminary No growth in Anaerobic bottle after 24 hours. PG Care Time/CCT Total # of Minutes Spent Total Time Spent with Patient: Total time spent is greater than 50% in coordination of care (as documented) at patient's floor/unit and/or counseling patient:
[2019-01-21] MEDS: CIPROFLOXACIN 500 MG TAB PO SCH ×2 (12:37→21:14)
--- NOTE | 2019-01-21 14:52 | Wound Consultation ---
Date of Consultation January 21, 2019 Assessment & Plan (1) Bilateral cellulitis of lower leg: Patient on antibiotics per infectious disease. No debridement was required. We will Wound will be dressed with Aquacel Ag wrapped in Kerlix. Have been unable to obtain ABIs as inpatient due to pain and swelling. We will set patient up for arterial Doppler with [facility]. Patient encouraged to follow-up with us after discharge. Thank you for allowing to participate in the care of this patient. Please not hesitate to call with any questions. (2) Venous insufficiency: History of Present Illness Reason for Consultation: Bilateral lower extremity cellulitis Attending Physician: Mikki Irwin MD This is a 64-year-old male with a history of type 2 diabetes, hype rtension, dyslipidemia, morbid obesity, CAD and chronic venous insufficiency who was admitted with bilateral lower leg cellulitis. Per records this patient's third admission since December. Patient seen laying in bed receiving IV antibiotics. Allergies Allergy/AdvReac Type Severity Reaction Status Date / Time No Known Allergies Allergy Verified 01/04/19 21:36 Home Medications Home Medications Medication Instructions Recorded Confirmed Type Spiriva Respimat 2 puff INHALATION DAILY 12/22/18 01/19/19 History albuterol sulfate 2 puff INHALATION QID PRN 12/22/18 01/19/19 History allopurinol 300 mg PO DAILY 12/22/18 01/19/19 History atorvastatin 40 mg PO DAILY 12/22/18 01/19/19 History bumetanide See Rx Instructions .ROUTE .COMPLEX 12/22/18 01/19/19 History calcitriol [Rocaltrol] 0.5 mcg PO DAILY 12/22/18 01/19/19 History carvedilol [Coreg] 50 mg PO BID 12/22/18 01/19/19 History cholecalciferol (vitamin D3) 4,000 unit PO DAILY 12/22/18 01/19/19 History [Vitamin D3] clonidine [[id number]] 1 patch TOPICAL WK 12/22/18 01/19/19 History duloxetine [Cymbalta] 30 mg PO DAILY 12/22/18 01/19/19 History ferrous sulfate [Iron (ferrous 325 mg PO BID 12/22/18 01/19/19 History sulfate)] glipizide [Glucotrol XL] 2.5 mg PO DAILY 12/22/18 01/19/19 History hydralazine 50 mg PO TID 12/22/18 01/19/19 History minoxidil 2.5 mg PO BID 12/22/18 01/19/19 History montelukast [Singulair] 10 mg PO QPM 12/22/18 01/19/19 History potassium chloride [Klor-Con M20] 20 meq PO BID 12/22/18 01/19/19 History sertraline 100 mg PO DAILY 12/22/18 01/19/19 History doxycycline hyclate 100 mg PO DIRECTED 01/19/19 01/19/19 History Patient History Medical History Venous insufficiency (Chronic) Diabetes mellitus, type II (Chronic) CHF (congestive heart failure) (Chronic) Hypertension (Chronic) Hyperlipidemia (Chronic) Morbid obesity (Chronic) Depression (Chronic) Coronary artery disease (Chronic) Surgical History H/O knee surgery (Chronic) Family History Other Throat cancer Social History Preferred Language: [place] Communication Ability: Effective Marketing Admin Required: No Beliefs That Will Affect Care: None marital status: Single Current Living Situation: Alone Other Information That Helps Us Care for You: No Feels Safe at Home: Yes Safety Concerns: Feels Safe At This Time Smoking Status: Never smoker Hx Alcohol Use: Yes Alcohol Intake Frequency: Rarely Hx Substance Use: No Review of Systems Review of Systems: All systems reviewed & are unremarkable except as noted in HPI & below Physical Exam Skin: Wounds measuring as recorded in nursing documentation. Wounds are covered with fibrin and slough. Compared to pictures wounds appear less yellowish. There is still large amount of serosanguineous drainage. There is foul odor. Neurologic: awake; not confused Psychiatric: A+Ox3, euthymic affect Results & Data Vital Signs (Past 12 Hours) Vital Signs Temp Pulse Pulse Resp BP Pulse Ox 01/21/19 11:35 36.8 C 57 L 20 172/65 H 94 01/21/19 08:10 36.9 C 56 L 18 159/71 H 93 01/21/19 07:48 54 L 01/21/19 03:17 36.8 C 60 20 130/70 95
--- NOTE | 2019-01-21 15:32 | Ultrasound Report ---
US arterial duplex LE BI CLINICAL HISTORY: Bilateral nonhealing ulcers. Suspected peripheral vascular disease. COMPARISON STUDY: No previous studies for comparison. FINDINGS: The study was limited from a technical standpoint secondary to the patient's large body habitus, and due to open wounds and bandages which were not permitted to be removed. Ankle brachial indices could not BE obtained. On the right, there was triphasic flow within the common femoral artery. There is monophasic flow wit hin the right superficial femoral artery. There is monophasic flow within the right popliteal artery. There is monophasic flow within the proximal anterior tibial, posterior tibial and peroneal arteries . No high velocity jets were visualized. On the left, there is monophasic flow within the left common femoral artery. There is monophasic flow within the left superficial femoral artery popliteal artery, anterior tibial artery posterior tibial artery and peroneal arteries. No high velocity jets were visualized. No flow was visualized within the dorsalis pedis arteries bilaterally IMPRESSION: 1. Limited study from a technical standpoint. 2. No focal stenotic lesions were visualized. The mid and distal calf vessels could not be evaluated due to overlying bandages. 3. Possible small vessel disease as no flow was visualized within the dorsalis pedis arteries bilater ally Electronically signed by: Kb Lee M.D. 01/21/2019 3:31 PM
[2019-01-21] MEDS ORDERED: NYSTATIN POWDER 15GM BTL EXT PRN (15:51)
--- NOTE | 2019-01-21 18:44 | Hospitalist Progress Note ---
Date of Service January 21, 2019 Assessment & Plan (1) Bilateral cellulitis of lower leg: (2) Venous insufficiency: Presents with bilateral lower extremity wounds and swelling Multiple hospital admission with wounds since December 2018 in setting of venous insufficiency, chronic BLE edema, morbid obesity Wound culture from 01/06 grew skin speedy only. Just completed course of doxycycline Wound cx positive for coag negative staph and gram negative bacilli Continue daily wound care Wound care on board Wound provider on board, no debridement was required. ID on board changed IV Zosyn to oral cipro Arterial doppler LE showed possible small vessel disease as no flow was visualized within the dorsalis pedis arteries bilaterally (3) Lower extremity edema: In setting of pulmonary hypertension, venous insufficiency. Echo 01/05/19 with moderate concentric LVH, EF 60-65%, systolic pressure elevated at 40-50 mmhg Lasix 60mg IV given yesterday Continue holding lasix due to elevated creatinine Will resume lasix in am (4) Acute kidney injury: Creatinine improved to 1.8 today Received Lasix 60mg IV on admission Hold any additional lasix for now Monitor BMP (5) Diabetes mellitus type 2 with complications: A1c 6.7 in December 2018 Continue to hold home agents SSI while in-patient BSG AC HS (6) Coronary artery disease: Nonobstructive CAD Continue carvedilol, statin (7) Hypertension: Continue carvedilol, clonidine, hydralazine, minoxidil (8) Sleep apnea: Intolerant to CPAP Continue 2 L NC O2 at bedtime (9) Hyperlipidemia: Continue statin (10) Depression: Continue SSRI DVT Ppx: SQ heparin Code status: FULL Subjective Pt was seen and examined Lying in bed with no distress Denies any chest pain, palpitation, dizziness and SOB Physical Exam Physical Exam: General- No acute distress Head- atraumatic Eyes- PERRL, EOMI, ENT- oropharynx clear Neck- supple, no JVD Lungs- +expiratory wheezing Heart- regular rhythm; no murmur Abdomen- normal bowel sounds, soft, nontender Extremities- + tenderness due to skin ulcers, +edema Neuro- alert, oriented x 3; PERRL, EOMI; no facial palsy; no dysarthria Skin- warm & dry, BLE with hyperpigmentation 2/2 venous stasis with overlying erythema and warmth. Multiple blisters, some ulcerated with weeping, serous drainage. Results & Data Vital Signs (Past 12 Hours) Vital Signs Temp Pulse Pulse Resp BP Pulse Ox 01/21/19 16:21 36.6 C 61 18 147/66 H 90 01/21/19 15:50 57 L 01/21/19 11:35 36.8 C 57 L 20 172/65 H 94 01/21/19 08:10 36.9 C 56 L 18 159/71 H 93 01/21/19 07:48 54 L
[2019-01-21] MEDS: MONTELUKAST SODIUM 10 MG TABLET PO SCH (21:14)
[2019-01-22] MEDS: HEPARIN SOD 5,000 UNIT/0.5 ML VIAL SQ SCH ×3 (05:13→21:15)
[2019-01-22 07:53] LABS: BUN Creatinine Ratio 12.3 (10-20); Calcium 10.1 mg/dl (8.5-10.1); Creatinine Clr Calc Pharmacy 75.7 ml/min; Est GFR (African American) 48.3; Est GFR (Non-African American) 41.7; Potassium 4.1 mmol/L (3.5-5.1)
[2019-01-22] MEDS: TIOTROPIUM BROMIDE 5 PUFF/90 MCG INH INH SCH (08:08)
[2019-01-22] MEDS: CALCITRIOL 0.25 MCG CAPSULE PO SCH (08:09)
[2019-01-22] MEDS: FERROUS SULFATE 325 MG TAB PO SCH ×2 (08:09→18:33)
[2019-01-22] MEDS: HydrALAZINE TAB 50 MG TAB PO SCH ×3 (08:09→21:13)
[2019-01-22] MEDS: SERTRALINE HCL 100 MG TABLET PO SCH (08:10)
[2019-01-22] MEDS: CIPROFLOXACIN 500 MG TAB PO SCH ×2 (08:10→21:13)
[2019-01-22] MEDS: ATORVASTATIN 40 MG TAB PO SCH (08:10)
[2019-01-22] MEDS: ALLOPURINOL 300 MG TAB PO SCH (08:10)
[2019-01-22] MEDS: DULOXETINE HCL 30 MG CAP PO SCH (08:10)
[2019-01-22] MEDS: CHOLECALCIFEROL 1,000 UNITS TAB PO SCH (08:10)
[2019-01-22] MEDS: CHECK CLONIDINE PATCH PLACEMENT SCH ×2 (08:11→18:34)
[2019-01-22] MEDS: POTASSIUM CHLORIDE 20 MEQ TABCR PO SCH ×2 (08:11→21:14)
[2019-01-22] MEDS: CARVEDILOL 25 MG TAB PO SCH ×2 (08:11→21:13)
[2019-01-22] MEDS: INSULIN ASPART 100 UNITS/ML 3 ML PEN SC SCH ×4 (08:12→21:15)
[2019-01-22] MEDS ORDERED: FUROSEMIDE 40 MG/4 ML VIAL IV ONE (08:15)
[2019-01-22] MEDS ORDERED: FUROSEMIDE 40 MG in SYRINGE 0 ML IV ONE (08:15)
--- NOTE | 2019-01-22 19:51 | Hospitalist Progress Note ---
Date of Service January 22, 2019 Assessment & Plan (1) Bilateral cellulitis of lower leg: (2) Venous insufficiency: Presents with bilateral lower extremity wounds and swelling Multiple hospital admission with wounds since December 2018 in setting of venous insufficiency, chronic BLE edema, morbid obesity Wound culture from 01/06 grew skin speedy only. Just completed course of doxycycline Wound cx positive for coag negative staph and gram negative bacilli Continue daily wound care Wound care on board Wound provider on board, no debridement was required. ID on board changed IV Zosyn to oral cipro Arterial doppler LE showed possible small vessel disease as no flow was visualized within the dorsalis pedis arteries bilaterally (3) Lower extremity edema: In setting of pulmonary hypertension, venous insufficiency. Echo 01/05/19 with moderate concentric LVH, EF 60-65%, systolic pressure elevated at 40-50 mmhg Lasix 60mg IV given yesterday Continue holding lasix due to elevated creatinine Lasix given this morning (4) Acute kidney injury: Creatinine improved to 1.8 today Received Lasix 60mg IV on admission lasix 40mg IV given today Monitor BMP (5) Diabetes mellitus type 2 with complications: A1c 6.7 in December 2018 Continue to hold home agents SSI while in-patient BSG AC HS (6) Coronary artery disease: Nonobstructive CAD Continue carvedilol, statin (7) Hypertension: Continue carvedilol, clonidine, hydralazine, minoxidil (8) Sleep apnea: Intolerant to CPAP Continue 2 L NC O2 at bedtime (9) Hyperlipidemia: Continue statin (10) Depression: Continue SSRI DVT Ppx: SQ heparin Code status: FULL Subjective Pt was seen and examined Lying in bed with no distress Continue to have a sharp pain in the Left leg Pt has not been participate in the therapy he said that his left leg usually buckle up on him He said that he is afraid to fall Denies any chest pain, palpitation and SOB Physical Exam Physical Exam: eneral- No acute distress Head- atraumatic Eyes- PERRL, EOMI, ENT- oropharynx clear Neck- supple, no JVD Lungs- +expiratory wheezing Heart- regular rhythm; no murmur Abdomen- normal bowel sounds, soft, nontender Extremities- + tenderness due to skin ulcers, +edema Neuro- alert, oriented x 3; PERRL, EOMI; no facial palsy; no dysarthria Skin- warm & dry, BLE with hyperpigmentation 2/2 venous stasis with overlying erythema and warmth. Multiple blisters, some ulcerated with weeping, serous drainage. Results & Data Vital Signs (Past 12 Hours) Vital Signs Temp Pulse Pulse Resp BP BP Pulse Ox 01/22/19 19:10 36.8 C 67 20 155/71 H 92 01/22/19 16:00 36.5 C 59 L 18 139/61 98 01/22/19 11:33 36.7 C 55 L 22 189/73 H 92
[2019-01-22] MEDS: MONTELUKAST SODIUM 10 MG TABLET PO SCH (21:14)
[2019-01-23] MEDS: CHECK CLONIDINE PATCH PLACEMENT SCH ×3 (00:26→16:06)
[2019-01-23 03:32] LABS: Appearance Urine Clear (Clear); Bilirubin Urine Negative (Negative); Blood Urine Negative (Negative); Color Urine Yellow; Glucose Urine UA Negative (Negative); Ketones Urine Negative (Negative); Leukocyte Esterase Urine Negative (Negative); Nitrite Urine Negative (Negative); Protein Urine Negative (Negative); Specific Gravity Urine 1.017 (1.000-1.030); Urobilinogen Urine Negative (Negative); pH Urine 6.5 (4.5-7.5)
[2019-01-23] MEDS: HEPARIN SOD 5,000 UNIT/0.5 ML VIAL SQ SCH ×3 (05:39→21:33)
[2019-01-23] MEDS: TRAMADOL HCL 50 MG TABLET PO PRN (06:25)
[2019-01-23 07:23] LABS: Hematocrit (blood only) 27.4 % (42-52); Hemoglobin 8.8 g/dL (14.0-18.0); Mean Corpuscular Hgb Conc 32.1 g/dL (32-36); Mean Corpuscular Volume 91.6 fL (80-100); Mean Platelet Volume 9.3 fL (7.4-10.4); Platelet Count 182 K/uL (130-400); RDW Coefficient of Variation 14.7 % (11.5-14.5); RDW Standard Deviation 49.1 fL (36.4-46.3); Red Blood Count 2.99 M/uL (4.7-6.1); White Blood Count 7.72 K/uL (4.8-10.8)
[2019-01-23] MEDS: FERROUS SULFATE 325 MG TAB PO SCH ×2 (07:50→18:01)
[2019-01-23] MEDS: DULOXETINE HCL 30 MG CAP PO SCH (07:50)
[2019-01-23] MEDS: CALCITRIOL 0.25 MCG CAPSULE PO SCH (07:50)
[2019-01-23] MEDS: CIPROFLOXACIN 500 MG TAB PO SCH ×2 (07:50→21:33)
[2019-01-23] MEDS: HydrALAZINE TAB 50 MG TAB PO SCH ×3 (07:50→21:32)
[2019-01-23] MEDS: ATORVASTATIN 40 MG TAB PO SCH (07:51)
[2019-01-23] MEDS: CARVEDILOL 25 MG TAB PO SCH ×2 (07:51→21:33)
[2019-01-23] MEDS: ALLOPURINOL 300 MG TAB PO SCH (07:51)
[2019-01-23] MEDS: POTASSIUM CHLORIDE 20 MEQ TABCR PO SCH ×2 (07:51→21:33)
[2019-01-23] MEDS: SERTRALINE HCL 100 MG TABLET PO SCH (07:51)
[2019-01-23] MEDS: CHOLECALCIFEROL 1,000 UNITS TAB PO SCH (07:51)
[2019-01-23] MEDS: TIOTROPIUM BROMIDE 5 PUFF/90 MCG INH INH SCH (07:52)
[2019-01-23] MEDS: INSULIN ASPART 100 UNITS/ML 3 ML PEN SC SCH ×4 (07:55→21:31)
[2019-01-23 08:04] LABS: BUN Creatinine Ratio 14.1 (10-20); Calcium 9.6 mg/dl (8.5-10.1); Creatinine Clr Calc Pharmacy 83.5 ml/min; Est GFR (African American) 54.8; Est GFR (Non-African American) 47.3; Potassium 3.8 mmol/L (3.5-5.1)
[2019-01-23] MEDS ORDERED: FUROSEMIDE 40 MG in SYRINGE 0 ML IV ONE (09:15)
--- NOTE | 2019-01-23 17:49 | Hospitalist Progress Note ---
Date of Service January 23, 2019 Assessment & Plan (1) Bilateral cellulitis of lower leg: (2) Venous insufficiency: Presents with bilateral lower extremity wounds and swelling Multiple hospital admission with wounds since December 2018 in setting of venous insufficiency, chronic BLE edema, morbid obesity Wound culture from 01/06 grew skin speedy only. Just completed course of doxycycline Wound cx positive for coag negative staph and gram negative bacilli Continue daily wound care Wound care on board Wound provider on board, no debridement was required. ID on board changed IV Zosyn to oral cipro Arterial doppler LE showed possible small vessel disease as no flow was visualized within the dorsalis pedis arteries bilaterally Follow up with wound care clinic (3) Lower extremity edema: In setting of pulmonary hypertension, venous insufficiency. Echo 01/05/19 with moderate concentric LVH, EF 60-65%, systolic pressure elevated at 40-50 mmhg Lasix given this morning Will resume his bumex (4) Acute kidney injury: Creatinine improved to 1.5 today Received Lasix 60mg IV on admission lasix 40mg IV given today Monitor BMP (5) Diabetes mellitus type 2 with complications: A1c 6.7 in December 2018 Continue to hold home agents SSI while in-patient BSG AC HS (6) Coronary artery disease: Nonobstructive CAD Continue carvedilol, statin (7) Hypertension: Elevated BP Continue carvedilol, clonidine, hydralazine, minoxidil Will resume his bumex Continue monitor BP (8) Sleep apnea: Intolerant to CPAP Does not use his CPAP machine at home Need to follow with pulmonology to try to adjust his pressure Continue 2 L NC O2 at bedtime (9) Hyperlipidemia: Continue statin (10) Depression: Continue SSRI DVT Ppx: SQ heparin Code status: FULL Disposition Possible discharge tomorrow Subjective Pt was seen and examined Lying in bed with no distress Denies any new complaint Refused inpatient rehab He does not want to walk with therapist because he is afraid to fall Orthotic came today and got measurement for the Left knee brace His brace will be delivered on Saturday in the hospital, but if pt discharges over the weekend, he can contact the orthotic place and they will make appt for him as an outpatient to try to fit the brace Denies any chest pain, palpitation, dizziness and SOB Physical Exam Physical Exam: General- No acute distress Head- atraumatic Eyes- PERRL, EOMI, ENT- oropharynx clear Neck- supple, no JVD Lungs- +expiratory wheezing Heart- regular rhythm; no murmur Abdomen- normal bowel sounds, soft, nontender Extremities- + tenderness due to skin ulcers, +edema Neuro- alert, oriented x 3; PERRL, EOMI; no facial palsy; no dysarthria Skin- warm & dry, BLE with hyperpigmentation 2/2 venous stasis with overlying erythema and warmth. Multiple ulcerated patchy area with no drainage Results & Data Vital Signs (Past 12 Hours) Vital Signs Temp Pulse Pulse Resp BP BP Pulse Ox 01/23/19 16:07 16 97 01/23/19 15:00 36.5 C 50 L 20 182/80 H 171/74 H 96 01/23/19 12:00 36.4 C L 55 L 20 159/79 H 95 01/23/19 07:03 36.8 C 60 20 174/75 H 93
[2019-01-23] MEDS ORDERED: FUROSEMIDE 20 MG in SYRINGE 0 ML IV ONE (21:00)
[2019-01-23] MEDS: MONTELUKAST SODIUM 10 MG TABLET PO SCH (21:33)
[2019-01-24] MEDS: CHECK CLONIDINE PATCH PLACEMENT SCH ×3 (00:03→15:10)
[2019-01-24] MEDS: HEPARIN SOD 5,000 UNIT/0.5 ML VIAL SQ SCH ×3 (06:01→21:17)
[2019-01-24 06:47] LABS: Hematocrit (blood only) 30.9 % (42-52); Hemoglobin 10.2 g/dL (14.0-18.0); Mean Corpuscular Volume 90.1 fL (80-100); Mean Platelet Volume 9.2 fL (7.4-10.4); Platelet Count 209 K/uL (130-400); RDW Coefficient of Variation 14.6 % (11.5-14.5); RDW Standard Deviation 48.1 fL (36.4-46.3); Red Blood Count 3.43 M/uL (4.7-6.1); White Blood Count 7.99 K/uL (4.8-10.8)
[2019-01-24 07:17] LABS: BUN Creatinine Ratio 15.5 (10-20); Calcium 9.8 mg/dl (8.5-10.1); Creatinine Clr Calc Pharmacy 86.3 ml/min; Est GFR (Non-African American) 49.2; Potassium 3.7 mmol/L (3.5-5.1)
--- NOTE | 2019-01-24 08:16 | Hospitalist Progress Note ---
Date of Service January 24, 2019 Assessment & Plan (1) Bilateral cellulitis of lower leg: (2) Venous insufficiency: Presented with bilateral lower extremity wounds and swelling Multiple hospital admissions with wounds since December 2018 in setting of venous insufficiency, chronic BLE edema, morbid obesity. Was just discharged on 01/14/19 On doxycycline which he discharged. Patient's bilateral lower extremity cellulitis had significantly improved prior to discharge. Was sent by home health as developed few blisters -Wound cx -Right leg- Coag neg strep, Left leg- Coag neg strep, Enterobacter cloacae -IV Zosyn changed to Ciprofloxacin by ID on 01/23/19 -Wound care to be continued. Wound physician recommends no debridement -ID inputs appreciated -Arterial doppler LE showed possible small vessel disease as no flow was visualized within the dorsalis pedis arteries bilaterally -Follow up with wound care clinic (3) Lower extremity edema: In setting of pulmonary hypertension, venous insufficiency. -Echo 01/05/19 with moderate concentric LVH, EF 60-65%, systolic pressure elevated at 40-50 mm hg -Received IV Lasix, changed to bumex 2 mg BID (4) CKD (chronic kidney disease) stage 3, GFR 30-59 ml/min: Unclear baseline. Creatinine was in the range of 1.6-1.8 last admission. -Received Lasix 60 mg IV on admission; lasix 40 mg IV given. -Monitor BMP (5) Diabetes mellitus type 2 with complications: A1c 6.7 in December 2018 -Continue to hold home agents -SSI while in-patient -BSG AC HS (6) Coronary artery disease: -Nonobstructive CAD -Continue carvedilol, statin (7) Hypertension: -Continue carvedilol, clonidine, hydralazine, minoxidil -Resumed Bumex -Continue monitor BP (8) Sleep apnea: Intolerant to CPAP -Does not use his CPAP machine at home -Need to follow with pulmonology to try to adjust his pressure -Continue 2 L NC O2 at bedtime (9) Hyperlipidemia: -Continue statin (10) Depression: -Continue SSRI DVT Ppx: SQ heparin Code status: FULL Disposition Likely discharge tomorrow Subjective Pt denies any new complaints. Refused inpatient rehab. He does not want to walk with therapist because he is afraid to fall. Orthotic came and got measurement for the Left knee brace. His brace will be delivered on Saturday in the hospital. but if pt discharges over the weekend, he can contact the orthotic place and they will make appt for him as an outpatient to try to fit the brace Denies any chest pain, palpitation, dizziness and SOB. Physical Exam Physical Exam: General- No acute distress, Morbidly obese + Neck- supple, no JVD Lungs-AEBE, no wheezing Heart- regular rhythm; no murmur Abdomen- normal bowel sounds, soft, nontender Extremities- + tenderness due to skin ulcers, +edema Skin- Warm & dry, BLE with hyperpigmentation 2/2 venous stasis with overlying erythema and warmth. Results & Data Vital Signs (Past 12 Hours) Vital Signs Temp Pulse Resp BP BP Pulse Ox 01/24/19 07:57 36.6 C 55 L 20 139/78 92 01/23/19 23:00 36.5 C 51 L 18 151/75 H 94
[2019-01-24] MEDS: CHOLECALCIFEROL 1,000 UNITS TAB PO SCH (08:50)
[2019-01-24] MEDS: ALLOPURINOL 300 MG TAB PO SCH (08:50)
[2019-01-24] MEDS: ATORVASTATIN 40 MG TAB PO SCH (08:50)
[2019-01-24] MEDS: SERTRALINE HCL 100 MG TABLET PO SCH (08:51)
[2019-01-24] MEDS: DULOXETINE HCL 30 MG CAP PO SCH (08:51)
[2019-01-24] MEDS: CALCITRIOL 0.25 MCG CAPSULE PO SCH (08:51)
[2019-01-24] MEDS: FERROUS SULFATE 325 MG TAB PO SCH ×2 (08:52→17:31)
[2019-01-24] MEDS: CIPROFLOXACIN 500 MG TAB PO SCH ×2 (08:53→21:12)
[2019-01-24] MEDS: BUMETANIDE 1 MG TAB PO SCH ×2 (08:53→17:31)
[2019-01-24] MEDS: HydrALAZINE TAB 50 MG TAB PO SCH ×3 (08:53→21:12)
[2019-01-24] MEDS: POTASSIUM CHLORIDE 20 MEQ TABCR PO SCH ×2 (08:57→21:17)
[2019-01-24] MEDS: INSULIN ASPART 100 UNITS/ML 3 ML PEN SC SCH ×4 (09:25→21:17)
[2019-01-24] MEDS: CARVEDILOL 25 MG TAB PO SCH ×2 (10:09→21:13)
[2019-01-24] MEDS: TIOTROPIUM BROMIDE 5 PUFF/90 MCG INH INH SCH (10:09)
[2019-01-24] MEDS: TRAMADOL HCL 50 MG TABLET PO PRN (18:06)
[2019-01-24] MEDS: MONTELUKAST SODIUM 10 MG TABLET PO SCH (21:17)
[2019-01-25] MEDS: MINOXIDIL 2.5 MG TAB PO SCH ×2 (01:44→09:12)
[2019-01-25] MEDS: TRAMADOL HCL 50 MG TABLET PO PRN (01:44)
[2019-01-25] MEDS: CHECK CLONIDINE PATCH PLACEMENT SCH ×2 (01:45→09:14)
[2019-01-25] MEDS: HEPARIN SOD 5,000 UNIT/0.5 ML VIAL SQ SCH (05:35)
[2019-01-25] MEDS: INSULIN ASPART 100 UNITS/ML 3 ML PEN SC SCH (09:03)
[2019-01-25] MEDS: SERTRALINE HCL 100 MG TABLET PO SCH (09:12)
[2019-01-25] MEDS: CALCITRIOL 0.25 MCG CAPSULE PO SCH (09:12)
[2019-01-25] MEDS: ALLOPURINOL 300 MG TAB PO SCH (09:12)
[2019-01-25] MEDS: CHOLECALCIFEROL 1,000 UNITS TAB PO SCH (09:12)
[2019-01-25] MEDS: DULOXETINE HCL 30 MG CAP PO SCH (09:13)
[2019-01-25] MEDS: ATORVASTATIN 40 MG TAB PO SCH (09:13)
[2019-01-25] MEDS: POTASSIUM CHLORIDE 20 MEQ TABCR PO SCH (09:13)
[2019-01-25] MEDS: BUMETANIDE 1 MG TAB PO SCH (09:13)
[2019-01-25] MEDS: CARVEDILOL 25 MG TAB PO SCH (09:13)
[2019-01-25] MEDS: TIOTROPIUM BROMIDE 5 PUFF/90 MCG INH INH SCH (09:13)
[2019-01-25] MEDS: CIPROFLOXACIN 500 MG TAB PO SCH (09:13)
[2019-01-25] MEDS: FERROUS SULFATE 325 MG TAB PO SCH (09:13)
[2019-01-25] MEDS: HydrALAZINE TAB 50 MG TAB PO SCH ×2 (09:13→13:36)
--- NOTE | 2019-01-25 09:56 | Hospitalist Progress Note ---
Date of Service January 25, 2019 Assessment & Plan (1) Bilateral cellulitis of lower leg: (2) Venous insufficiency: Presented with bilateral lower extremity wounds and swelling Multiple hospital admissions with wounds since December 2018 in setting of venous insufficiency, chronic BLE edema, morbid obesity. Was just discharged on 01/14/19 On doxycycline which he discharged. Patient's bilateral lower extremity cellulitis had significantly improved prior to discharge. Was sent by home health as developed few blisters -Wound cx -Right leg- Coag neg strep, Left leg- Coag neg strep, Enterobacter cloacae -IV Zosyn changed to Ciprofloxacin by ID on 01/23/19 for 14 days. -Wound care to be continued. Wound physician recommends no debridement -Arterial doppler LE showed possible small vessel disease as no flow was visualized within the dorsalis pedis arteries bilaterally -Follow up with wound care clinic -ID inputs appreciated (3) Lower extremity edema: In setting of pulmonary hypertension, venous insufficiency. -Echo 01/05/19 with moderate concentric LVH, EF 60-65%, systolic pressure elevated at 40-50 mm hg -Received IV Lasix, changed to Bumex 2 mg BID (4) CKD (chronic kidney disease) stage 3, GFR 30-59 ml/min: Unclear baseline. Creatinine was in the range of 1.6-1.8 last admission. -Received Lasix 60 mg IV on admission; lasix 40 mg IV given -Now on bumex (5) Diabetes mellitus type 2 with complications: A1c 6.7 in December 2018 -Continue to hold home agents -SSI while in-patient -BSG AC HS (6) Coronary artery disease: -Nonobstructive CAD -Continue carvedilol, statin (7) Hypertension: -Continue carvedilol, clonidine, hydralazine, minoxidil -Resumed Bumex -Continue monitor BP (8) Sleep apnea: Intolerant to CPAP -Does not use his CPAP machine at home -Need to follow with pulmonology to try to adjust his pressure -Continue 2 L NC O2 at bedtime (9) Hyperlipidemia: -Continue statin (10) Depression: -Continue SSRI DVT Ppx: SQ heparin Code status: FULL Disposition Ok to discharge today PT/OT- recommended rehab, but patient refused as last time. Orthotics consulted for left knee brace . They were to deliver it on saturday, but no indication to stay in hospital tonight. Ok to discharge and patient can collect the orthotics from dept after discharge. Subjective Pt is feeling better today. Denies any new complaints. Does not want rehab. Denies any chest pain, palpitation, dizziness and SOB. No fever, chills Physical Exam Physical Exam: General- No acute distress, Morbidly obese + Neck- supple, no JVD Lungs-AEBE, no wheezing Heart- regular rhythm; no murmur Abdomen- normal bowel sounds, soft, nontender Extremities- + tenderness due to skin ulcers, +edema Skin- Warm & dry, BLE with hyperpigmentation 2/2 venous stasis with overlying erythema and warmth. Results & Data Vital Signs (Past 12 Hours) Vital Signs Temp Pulse Resp BP Pulse Ox 01/25/19 06:41 36.8 C 55 L 19 158/72 H 92 01/25/19 00:28 36.9 C 55 L 19 186/93 H 92
--- NOTE | 2019-01-25 10:15 | Discharge Summary ---
Date of Service January 25, 2019 Admission HPI Per Admitting Provider This is a 63-year-old male with a PMH of venous insufficiency, DM II, CKD III, CAD, HLD, FRANCIS intolerant to CPAP, morbid obesity and other medical problems listed below who presents with bilateral lower extremity wounds and swelling. This is patient's third admission with wounds since December 2018. Was previously admitted from 01/05-01/14 with bilateral lower extremity cellulitis in the setting of chronic venous stasis and pulmonary hypertension. Underwent IV diuresis and antibiotic treatment with Zosyn. Wound culture from 01/06 grew probable skin speedy. Blood culture negative. Per ID, Vanco and Zosyn were discontinued and patient started on 10-day course of doxycycline, which he was discharged home with on 01/14 and completed this morning. Wounds had significantly improved prior to discharge, per patient, but he noticed new blisters on bilateral lower legs 3 days later similar to previous times. Endorses intermittent aching pain. Also with "shock-like" pain in bilateral feet that is chronic, due to patient's diabetic neuropathy. Was evaluated by home health today and sent in for further evaluation of lower extremity edema and cellulitis. Currently endorsing BLE aching and chronic pain in feet. Has had chills for the past 2 days. Denies fever, headache, lightheadedness, visual changes, cough, chest pain, shortness of breath, abdominal pain, nausea, vomiting, dysuria, constipation or diarrhea. Principal Diagnosis 1. Bilateral lower extremity cellulitis 2. Chronic venous stasis Secondary diagnoses on discharge 1. CKD stage III 2. Diabetes mellitus type 2 3. CAD 4. Hypertension 5. Obstructive sleep apnea 6. Hyperlipidemia 7. Depression Discharge Exam General- No acute distress, Morbidly obese + Neck- supple, no JVD Lungs-AEBE, no wheezing Heart- regular rhythm; no murmur Abdomen- normal bowel sounds, soft, nontender Extremities- + tenderness due to skin ulcers, +edema Skin- Warm & dry, BLE with hyperpigmentation 2/2 venous stasis with overlying erythema and warmth. Discharge Data Allergies Allergy/AdvReac Type Severity Reaction Status Date / Time No Known Allergies Allergy Verified 01/04/19 21:36 Consultations 01/19/19 12:06 ED Decision to Admit Stat 01/19/19 14:48 Consult Case Management - Discharge Planning Routine 01/20/19 19:35 Consult Infectious Diseases Routine 01/21/19 08:25 Consult Wound Care Provider Routine Ordered Studies 01/21/19 12:39 US arterial duplex LE BI Routine Hospital Course (1) Bilateral cellulitis of lower leg: (2) Venous insufficiency: Presented with bilateral lower extremity wounds and swelling Multiple hospital admissions with wounds since December 2018 in setting of venous insufficiency, chronic BLE edema, morbid obesity. Was just discharged on 01/14/19 On doxycycline which he discharged. Patient's bilateral lower extremity cellu litis had significantly improved prior to discharge. Was sent by home health as developed few blisters -Wound cx -Right leg- Coag neg strep, Left leg- Coag neg strep, Enterobacter cloacae -IV Zosyn changed to Ciprofloxacin by ID on 01/23/19 for 13 more days to complete course of 14 days of antibiotics. (QTC : 518 ). D/w ID, if not for cipro, would have to do IV. So will continue with ciprofloxacin and monitor QTC outpatient -Wound care to be continued. Wound physician recommends no debridement -Arterial doppler LE showed possible small vessel disease as no flow was visu alized within the dorsalis pedis arteries bilaterally -Follow up with wound care clinic -ID inputs appreciated (3) Lower extremity edema: In setting of pulmonary hypertension, venous insufficiency. -Echo 01/05/19 with moderate concentric LVH, EF 60-65%, systolic pressure elevated at 40-50 mm hg -Received IV Lasix, changed to Bumex 2 mg BID (4) CKD (chronic kidney disease) stage 3, GFR 30-59 ml/min: Unclear baseline. Creatinine was in the range of 1.6-1.8 last admission. -Received Lasix 60 mg IV on admission; lasix 40 mg IV given -Now on bumex (5) Diabetes mellitus type 2 with complications: A1c 6.7 in December 2018 -Continue to hold home agents -SSI while in-patient -BSG AC HS (6) Coronary artery disease: -Nonobstructive CAD -Continue carvedilol, statin (7) Hypertension: -Continue carvedilol, clonidine, hydralazine, minoxidil -Resumed Bumex -Continue monitor BP (8) Sleep apnea: Intolerant to CPAP -Does not use his CPAP machine at home -Need to follow with pulmonology to try to adjust his pressure -Continue 2 L NC O2 at bedtime (9) Hyperlipidemia: -Continue statin (10) Depression: -Continue SSRI DVT Ppx: SQ heparin Code status: FULL Disposition Ok to discharge today PT/OT- recommended rehab, but patient refused as last time. Orthotics consulted for left knee brace . They were to deliver it on saturday, but no indication to stay in hospital tonight. Ok to discharge and patient can collect the orthotics from dept after discharge. Total Time Total Time Spent Total Time Spent (In Minutes): 40 minutes Discharge Plan Discharge Items Patient Disposition: Home - Home Health Services Reason For Visit: BLE WOUND,CELLUTIIS Discharge Diagnosis: 1. Bilateral lower extremity cellulitis 2. Chronic venous insufficiency Discharge Goals: Decrease discomfort Activity: Resume your previous activity Activity Comment: PT/OT recommended Non-emergency contact: Primary Care Provider Call non-emergency contact if: your symptoms worsen Follow-up/Referrals: Comfort Almanzar PA-C [Primary Care Provider] - (You will receive a call from us about appointment date and time for hospital follow-up within 7 days) Dhruv Arauz DO [Physician] - (Follow-up with wound care clinic. Please call for appointment upon discharge Phone number ) Diet: Low Fat and Low Sodium (2gm) Addtl Provider Instructions: You were admitted to the hospital for bilateral lower extremity cellulitis. Medication changes : 1. New medicationciprofloxacin 500 mg p.o. twice a day for 13 more days to complete course of 14 days of antibiotics Wound Care instructions : Apply Aquacel AG 4 x 4, Kerlix, Change every other day and as needed Need to follow up with wound clinic. Please call [phone] for follow up appt date and time PT/OT recommended For Left knee brace= Please call [phone] to collect it after discharge. Prescriptions: New ciprofloxacin HCl 500 mg Tablet 500 mg PO BID 13 Days Qty: 26 RF: 0 Continued atorvastatin 40 mg Tablet 40 mg PO DAILY RF: 0 carvedilol [Coreg] 25 mg tablet 50 mg PO BID RF: 0 sertraline 100 mg Tablet 100 mg PO DAILY RF: 0 hydralazine 25 mg Tablet 50 mg PO TID RF: 0 minoxidil 2.5 mg tablet 2.5 mg PO BID RF: 0 potassium chloride [Klor-Con M20] 20 mEq tablet,ER particles/crystals 20 meq PO BID RF: 0 glipizide [Glucotrol XL] 2.5 mg tablet extended release 24hr 2.5 mg PO DAILY RF: 0 ferrous sulfate [Iron (ferrous sulfate)] 325 mg (65 mg iron) tablet 325 mg PO BID RF: 0 bumetanide 1 mg tablet See Rx Instructions .ROUTE .COMPLEX RF: 0 montelukast [Singulair] 10 mg tablet 10 mg PO QPM RF: 0 allopurinol 300 mg Tablet 300 mg PO DAILY RF: 0 clonidine [Qgogahvy-WLS-3] 0.3 mg/24 hr patch weekly 1 patch topical WK RF: 0 albuterol sulfate 90 mcg/actuation Hfa Aerosol Inhaler 2 puff INHALATION QID PRN (Reason: Shortness Of Breath Or Wheezing) RF: 0 calcitriol [Rocaltrol] 0.25 mcg capsule 0.5 mcg PO DAILY RF: 0 duloxetine [Cymbalta] 30 mg capsule,delayed release(DR/EC) 30 mg PO DAILY RF: 0 cholecalciferol (vitamin D3) [Vitamin D3] 1,000 unit Tablet 4,000 unit PO DAILY RF: 0 Spiriva Respimat 1.25 mcg/actuation mist 2 puff inhalation DAILY RF: 0 Discontinued doxycycline hyclate 100 mg capsule 100 mg PO DIRECTED RF: 0 Stand-Alone Forms: [facility] Admission Data Admit Date/Time: 01/20/19 19:30 Attending Provider: Brenda Porter Admit Provider: Mikki Irwin Primary Care Provider: Comfort Almanzar Other Providers: Mikki Irwin ; Brenda Porter ; Shantanu Contreras ; Dhruv Arauz Service: Telemetry Medical
== END 2019-01-25 13:45 | disposition home health service (06) | DRG 603 ==
LOC: ED 10:18 → 2W 10:18 → SUATTDRO 13:37 → 2W 14:10 → SUATTDRO 01-20 19:30 → 2W 01-23 08:36
DX: Z68.43 Body mass index [BMI] 50.0-59.9, adult; I27.20 Pulmonary hypertension, unspecified; E11.22 Type 2 diabetes mellitus with diabetic chronic kidney disease; I25.10 Atherosclerotic heart disease of native coronary artery without angina pectoris; I87.2 Venous insufficiency (chronic) (peripheral); E78.5 Hyperlipidemia, unspecified; E66.01 Morbid (severe) obesity due to excess calories; B96.89 Other specified bacterial agents as the cause of diseases classified elsewhere; L03.116 Cellulitis of left lower limb; B95.8 Unspecified staphylococcus as the cause of diseases classified elsewhere; N18.3 Chronic kidney disease, stage 3 (moderate); Z79.84 Long term (current) use of oral hypoglycemic drugs; F32.9 Major depressive disorder, single episode, unspecified; Z79.899 Other long term (current) drug therapy; G47.33 Obstructive sleep apnea (adult) (pediatric); L03.115 Cellulitis of right lower limb; N17.9 Acute kidney failure, unspecified

== ENCOUNTER 2020-11-29 13:14 | Inpatient (IN) ==
--- NOTE | 2020-11-29 14:07 | Emergency Department Note ---
Impression & Plan Acute hypoxemic respiratory failure, CHF (congestive heart failure), Multifocal pneumonia ED Provider Note NAME: WILVER THAO AGE: 65 SEX: M : 1955 ARRIVES VIA: Ambulance INFORMANT: Patient, ED PROVIDER(S): Montrell Villegas MD Chief Complaint: Syncope HPI: Patient reportedly had an episode of unresponsiveness prior to arrival at the [facility] rehab. The patient was there after [place] Covid but it tested negative. The patient is only able to state that he feels short of breath. The patient denies any chest pains. The patient does not have any nausea vomiting headache. The patient does have a right upper extremity PICC line and catheter in place. The patient was started on 15 L nonrebreather which did improve his sats. I did review the patient's H&P from [facility] show that the patient did have a recent hospitalization for CHF was discharged home but he did not obtain his recommended medications. Patient had been treated with Bumex and Decadron with improved diuresis with Lasix. Patient apparently had quite positive stool and was post have a colonoscopy but refused to participate in prep. Patient did undergo an EGD. H&H apparently had been stable. Patient does have a note written by Dr. Elizalde so that is patient is status post EGD and colonoscopy x2 and had a polypectomy. Patient did have blood loss anemia. ROS: See HPI for pertinent positives and negatives. A total of 10 systems were reviewed and otherwise negative. Past medical history: See below Surgical history: See below Social history: See below Physical Exam: GENERAL: Ill in appearance, nonrebreather in place. EYE EXAM: Normal conjunctiva. PERRL, no anisocoria and EOM's grossly intact w/o pain. NECK: Supple, no nuchal rigidity, no adenopathy, non-tender. No signs of meningismus. LUNGS: Crackles throughout. HEART: NSR, no MRG. ABDOMEN: Abdomen soft, non-tender, normo-active bowel sounds, no masses, no rebound or guarding. BACK: No CVA TTP. SKIN: No rashes and no bruising. UPPER EXTREMITIES: Upper extremities are grossly normal. Right upper extremity PICC line in place. LOWER EXTREMITIES: Grossly normal, no edema. NEURO EXAM: A&O x3, cranial nerves II-XII grossly intact, normal speech, moves all 4 extremities on command w/o issue. Differential diagnoses: Vasovagal event, dehydration, infection, hypoglycemia, electrolyte abnormalities, cardiac sources, intracerebral event, pulmonary embolism, seizure, toxicologic, neurologic, as well as other pathologies. Course: Patient was seen and evaluated the bedside. Full history physical exam was performed. EKG interpreted by me Normal sinus rhythm, rate of 72, wide QRS, right bundle branch block pattern, left axis deviation. Grossly unchanged from a prior EKG completed January 25, 2018 Imaging Studies: See below Cardiac monitoring: An order was placed for continuous cardiac monitoring. The monitor shows a rate of 68 with sinus rhythm. MDM: Patient did present with concern for syncope and hypoxia. Patient reportedly does not use any CPAP even though he has a history of sleep apnea and obesity. Blood work is obtained along with an EKG troponin chest x-ray VBG CT head. Patient was placed on BiPAP which he tolerated well. Patient blood work showed a normal white count chronic and stable anemia. I was notified the patient did have some darker stools which were heme positive. The patient did have a recent polypectomy and has had colonoscopy and EGD. The EGD does not show gross hypercarbia as the patient's VBG pH 7.4. Patient was given a dose of Bumex. Urinalysis possibly contaminated the patient does have an indwelling Gamez. Patient is Covid positive. Chest x-ray did show multifocal pneumonia. Blood cultures were ordered along with broad-spectrum antibiotics. I did speak the on-call hospitalist Renetta Coleman PA-C and the patient was admitted by Dr. Sanchez with [facility] Critical Care: I have personally spent 125 minutes of critical care time in direct management of this patient. This includes bedside care, interpretation of diagnostic studies, and testing, discussion with consultants, patient, and family members, and other require inpatient management activities. This 125 minutes is in excess of all separately billable procedures. 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 Beliefs That Will Affect Care: None marital status: Single Current Living Situation: Rehab How many Children do You have: 0 Other Information That Helps Us Care for You: No Feels Safe at Home: Yes Safety Concerns: Feels Safe At This Time Assistive Devices: None Allergies Allergies Allergy/AdvReac Type Severity Reaction Status Date / Time No Known Allergies Allergy Verified 11/29/20 14:51 Home Meds Home Medications Medication Instructions Recorded Confirmed acetaminophen [Tylenol] 650 mg PO Q4 PRN 11/29/20 11/29/20 amlodipine 10 mg PO DAILY 11/29/20 11/29/20 atorvastatin 40 mg PO HS 11/29/20 11/29/20 bumetanide [Bumex] 2 mg PO DAILY 11/29/20 11/29/20 carvedilol 12.5 mg PO BIDM 11/29/20 11/29/20 cholecalciferol (vitamin D3) 50 mcg PO DAILY 11/29/20 11/29/20 [Vitamin D3] docusate sodium 100 mg PO BID PRN 11/29/20 11/29/20 duloxetine 60 mg PO DAILY 11/29/20 11/29/20 ferrous sulfate 325 mg PO BID 11/29/20 11/29/20 gabapentin 300 mg PO HS 11/29/20 11/29/20 insulin aspart U-100 [Novolog 5 unit SUBCUT TIDM 11/29/20 11/29/20 U-100 Insulin aspart] insulin glargine [Lantus U-100 20 unit SUBCUT BID 11/29/20 11/29/20 Insulin] ipratropium-albuterol 1 puff INHALATION QID 11/29/20 11/29/20 magnesium hydroxide [Milk of 30 ml PO DAILY PRN 11/29/20 11/29/20 Magnesia] montelukast [Singulair] 10 mg PO HS 11/29/20 11/29/20 pantoprazole [Protonix] 40 mg PO DAILY 11/29/20 11/29/20 polyethylene glycol 3350 [Miralax] 17 g PO DAILY PRN 11/29/20 11/29/20 potassium chloride 20 meq PO DAILY 11/29/20 11/29/20 prednisone 30 mg PO DAILY 11/29/20 11/29/20 sennosides-docusate sodium 1 tab-cap PO .QLUNCH PRN 11/29/20 11/29/20 [Senokot-S] sertraline 100 mg PO DAILY 11/29/20 11/29/20 tamsulosin 0.8 mg PO DAILY 11/29/20 11/29/20 umeclidinium-vilanterol [Anoro 1 inh INHALATION DAILY 11/29/20 11/29/20 Ellipta] Results & Data (ED) Vital Signs Vital Signs - 24 hr 11/29/20 13:51 11/29/20 14:00 11/29/20 14:04 Temperature 36.5 C Temperature Source Oral Pulse Rate 67 68 Pulse Rate from SpO2 Sensor 68 Pulse Rhythm Regular Pulse Strength Normal Respiratory Rate 21 16 Respiratory Effort / Characteristics Non-Labored Respiratory Depth Normal Respiratory Pattern Blood Pressure 151/85 H 150/73 H Blood Pressure Mean 107 98 Blood Pressure Position Sitting Pulse Oximetry 98 91 Oxygen Delivery Method Nasal Cannula Non-rebreather Oxygen Flow Rate 15 10 15 Fraction of Inspired Oxygen Sepsis Recent Fever Within 48 Hours No Sepsis New/Unexplained Change in Mental Status N/A Sepsis Action Taken by Nursing No Action Required 11/29/20 14:22 11/29/20 14:23 11/29/20 14:30 Temperature Temperature Source Pulse Rate 69 68 69 Pulse Rate from SpO2 Sensor 69 Pulse Rhythm Regular Pulse Strength Respiratory Rate 18 10 L 20 Respiratory Effort / Characteristics Non-Labored Spontaneous Respiratory Depth Normal Respiratory Pattern Regular Blood Pressure 143/70 H Blood Pressure Mean 94 Blood Pressure Position Pulse Oximetry 93 92 92 Oxygen Delivery Method Non-rebreather Non-rebreather Oxygen Flow Rate 15 10 Fraction of Inspired Oxygen 45 Sepsis Recent Fever Within 48 Hours Sepsis New/Unexplained Change in Mental Status Sepsis Action Taken by Nursing 11/29/20 15:27 11/29/20 15:30 11/29/20 16:00 Temperature Temperature Source Pulse Rate 68 69 69 Pulse Rate from SpO2 Sensor 68 68 70 Pulse Rhythm Pulse Strength Respiratory Rate 18 18 18 Respiratory Effort / Characteristics Respiratory Depth Respiratory Pattern Blood Pressure 154/82 H 165/77 H 157/83 H Blood Pressure Mean 106 106 107 Blood Pressure Position Pulse Oximetry 96 96 97 Oxygen Delivery Method BiPAP BiPAP BiPAP Oxygen Flow Rate Fraction of Inspired Oxygen 45 45 45 Sepsis Recent Fever Within 48 Hours Sepsis New/Unexplained Change in Mental Status Sepsis Action Taken by Nursing 11/29/20 16:30 11/29/20 17:00 Temperature Temperature Source Pulse Rate 70 70 Pulse Rate from SpO2 Sensor 70 70 Pulse Rhythm Pulse Strength Respiratory Rate 16 18 Respiratory Effort / Characteristics Respiratory Depth Respiratory Pattern Blood Pressure 164/83 H 129/77 Blood Pressure Mean 110 94 Blood Pressure Position Pulse Oximetry 98 100 Oxygen Delivery Method BiPAP BiPAP Oxygen Flow Rate Fraction of Inspired Oxygen 45 45 Sepsis Recent Fever Within 48 Hours Sepsis New/Unexplained Change in Mental Status Sepsis Action Taken by [facility] Medications Current Medication List: was personally reviewed by me Laboratory Data Attestation: I reviewed the patient's lab results. Result diagrams: 11/29/20 16:15 11/29/20 16:15 Lab Results 11/29/20 11/29/20 11/29/20 Range/Units 15:14 15:18 15:23 WBC (4.8-10.8) K/uL RBC (4.7-6.1) M/uL Hgb (14.0-18.0) g/dL Hct (42-52) % MCV (80-100) fL MCH (25-34) pg MCHC (32-36) g/dL RDW Std Deviation (36.4-46.3) fL RDW Coeff of Xin (11.5-14.5) % Plt Count (130-400) K/uL MPV (7.4-10.4) fL Immature Gran % (Auto) % Neut % (Auto) % Lymph % (Auto) % Catron % (Auto) % Eos % (Auto) % Baso % (Auto) % Neut # (Auto) (1.4-6.5) K/uL Lymph # (Auto) (1.2-3.4) K/uL Catron # (Auto) (0.11-0.59) K/uL Eos # (Auto) (0-0.5) K/uL Baso # (Auto) (0-0.2) K/uL Immature Gran # (Auto) (0.00-0.02) K/uL VBG pH 7.44 H (7.36-7.41) VBG pCO2 55 H (38-50) mmHg VBG pO2 32 mmHg VBG HCO3 36 mmol/L VBG O2 Saturation 62.6 % VBG Base Excess 9.7 mEq/L Barometric Pressure 729.0 mm/Hg Sodium (136-145) mmol/L Potassium (3.5-5.1) mmol/L Chloride (98-107) mmol/L Carbon Dioxide (21-32) mmol/L Anion Gap (3-11) BUN (7-18) mg/dl Creatinine (0.6-1.4) mg/dl Est Cr Clr Drug Dosing ml/min Est GFR ( Amer) ml/min Est GFR (Non-Af Amer) ml/min BUN/Creatinine Ratio (10-20) Glucose (70-99) mg/dl Calcium (8.5-10.1) mg/dl Magnesium (1.8-2.4) mg/dl Total Bilirubin (0.2-1) mg/dl AST (15-37) U/L ALT (12-78) U/L Alkaline Phosphatase (45-117) U/L Troponin I (0-0.045) ng/ml Total Protein (6.4-8.2) gm/dl Albumin (3.4-5.0) gm/dl Globulin (2.5-4.0) gm/dl Albumin/Globulin Ratio (0.9-2) TSH (0.300-4.500) uIu/ml Urine Color Yellow Urine Appearance Clear (Clear) Urine pH 5.5 (4.5-7.5) Ur Specific [place] 1.015 (1.000-1.030) Urine Protein 1+ H (Negative) Urine Glucose (UA) Negative (Negative) Urine Ketones Negative (Negative) Urine Blood 2+ H (Negative) Urine Nitrite Positive A (Negative) Urine Bilirubin Negative (Negative) Urine Urobilinogen Negative (Negative) Ur Leukocyte Esterase 1+ H (Negative) Urine RBC 5-10 H (0-4) /hpf Urine WBC >30 H (0-5) /hpf Ur Epithelial Cells >30 H (0-5) /lpf Amorphous Sediment Present A (None Prsent) Urine Bacteria 1+ H (Negative) POC Stool Occult Blood (Negative) COVID-19 Eval Order Covid19 at [facility] SARS-CoV-2 (PCR) (Negative) 11/29/20 11/29/20 11/29/20 Range/Units 15:23 16:00 16:15 WBC 9.50 (4.8-10.8) K/uL RBC 3.70 L (4.7-6.1) M/uL Hgb 10.6 L (14.0-18.0) g/dL Hct 33.2 L (42-52) % MCV 89.7 (80-100) fL MCH 28.6 (25-34) pg MCHC 31.9 L (32-36) g/dL RDW Std Deviation 49.3 H (36.4-46.3) fL RDW Coeff of Xin 15.3 H (11.5-14.5) % Plt Count 190 (130-400) K/uL MPV 8.9 (7.4-10.4) fL Immature Gran % (Auto) 0.8 % Neut % (Auto) 83.3 % Lymph % (Auto) 7.6 % Catron % (Auto) 8.0 % Eos % (Auto) 0.2 % Baso % (Auto) 0.1 % Neut # (Auto) 7.91 H (1.4-6.5) K/uL Lymph # (Auto) 0.72 L (1.2-3.4) K/uL Catron # (Auto) 0.76 H (0.11-0.59) K/uL Eos # (Auto) 0.02 (0-0.5) K/uL Baso # (Auto) 0.01 (0-0.2) K/uL Immature Gran # (Auto) 0.08 H (0.00-0.02) K/uL VBG pH (7.36-7.41) VBG pCO2 (38-50) mmHg VBG pO2 mmHg VBG HCO3 mmol/L VBG O2 Saturation % VBG Base Excess mEq/L Barometric Pressure mm/Hg Sodium (136-145) mmol/L Potassium (3.5-5.1) mmol/L Chloride (98-107) mmol/L Carbon Dioxide (21-32) mmol/L Anion Gap (3-11) BUN (7-18) mg/dl Creatinine (0.6-1.4) mg/dl Est Cr Clr Drug Dosing ml/min Est GFR ( Amer) ml/min Est GFR (Non-Af Amer) ml/min BUN/Creatinine Ratio (10-20) Glucose (70-99) mg/dl Calcium (8.5-10.1) mg/dl Magnesium (1.8-2.4) mg/dl Total Bilirubin (0.2-1) mg/dl AST (15-37) U/L ALT (12-78) U/L Alkaline Phosphatase (45-117) U/L Troponin I (0-0.045) ng/ml Total Protein (6.4-8.2) gm/dl Albumin (3.4-5.0) gm/dl Globulin (2.5-4.0) gm/dl Albumin/Globulin Ratio (0.9-2) TSH (0.300-4.500) uIu/ml Urine Color Urine Appearance (Clear) Urine pH (4.5-7.5) Ur Specific [place] (1.000-1.030) Urine Protein (Negative) Urine Glucose (UA) (Negative) Urine Ketones (Negative) Urine Blood (Negative) Urine Nitrite (Negative) Urine Bilirubin (Negative) Urine Urobilinogen (Negative) Ur Leukocyte Esterase (Negative) Urine RBC (0-4) /hpf Urine WBC (0-5) /hpf Ur Epithelial Cells (0-5) /lpf Amorphous Sediment (None Prsent) Urine Bacteria (Negative) POC Stool Occult Blood Positive A (Negative) COVID-19 Eval Order SARS-CoV-2 (PCR) POSITIVE A* (Negative) 11/29/20 Range/Units 16:15 WBC (4.8-10.8) K/uL RBC (4.7-6.1) M/uL Hgb (14.0-18.0) g/dL Hct (42-52) % MCV (80-100) fL MCH (25-34) pg MCHC (32-36) g/dL RDW Std Deviation (36.4-46.3) fL RDW Coeff of Xin (11.5-14.5) % Plt Count (130-400) K/uL MPV (7.4-10.4) fL Immature Gran % (Auto) % Neut % (Auto) % Lymph % (Auto) % Catron % (Auto) % Eos % (Auto) % Baso % (Auto) % Neut # (Auto) (1.4-6.5) K/uL Lymph # (Auto) (1.2-3.4) K/uL Catron # (Auto) (0.11-0.59) K/uL Eos # (Auto) (0-0.5) K/uL Baso # (Auto) (0-0.2) K/uL Immature Gran # (Auto) (0.00-0.02) K/uL VBG pH (7.36-7.41) VBG pCO2 (38-50) mmHg VBG pO2 mmHg VBG HCO3 mmol/L VBG O2 Saturation % VBG Base Excess mEq/L Barometric Pressure mm/Hg Sodium 138 (136-145) mmol/L Potassium 3.5 (3.5-5.1) mmol/L Chloride 99 (98-107) mmol/L Carbon Dioxide 35 H (21-32) mmol/L Anion Gap 4.0 (3-11) BUN 26 H (7-18) mg/dl Creatinine 1.01 (0.6-1.4) mg/dl Est Cr Clr Drug Dosing 114.7 ml/min Est GFR ( Amer) 91.3 ml/min Est GFR (Non-Af Amer) 78.8 ml/min BUN/Creatinine Ratio 25.5 H (10-20) Glucose 126 H (70-99) mg/dl Calcium 9.1 (8.5-10.1) mg/dl Magnesium 2.2 (1.8-2.4) mg/dl Total Bilirubin 0.6 (0.2-1) mg/dl AST 19 (15-37) U/L ALT 40 (12-78) U/L Alkaline Phosphatase 139 H (45-117) U/L Troponin I 0.021 (0-0.045) ng/ml Total Protein 6.1 L (6.4-8.2) gm/dl Albumin 3.0 L (3.4-5.0) gm/dl Globulin 3.1 (2.5-4.0) gm/dl Albumin/Globulin Ratio 1.0 (0.9-2) TSH 1.950 (0.300-4.500) uIu/ml Urine Color Urine Appearance (Clear) Urine pH (4.5-7.5) Ur Specific [place] (1.000-1.030) Urine Protein (Negative) Urine Glucose (UA) (Negative) Urine Ketones (Negative) Urine Blood (Negative) Urine Nitrite (Negative) Urine Bilirubin (Negative) Urine Urobilinogen (Negative) Ur Leukocyte Esterase (Negative) Urine RBC (0-4) /hpf Urine WBC (0-5) /hpf Ur Epithelial Cells (0-5) /lpf Amorphous Sediment (None Prsent) Urine Bacteria (Negative) POC Stool Occult Blood (Negative) COVID-19 Eval Order SARS-CoV-2 (PCR) (Negative) Administered Medications Discontinued Medications Dexamethasone Sodium Phosphate (DexamethasonePf 10 Mg/Ml Vial) 10 mg IV NOW ONE Stop: 11/29/20 16:36 Last Admin: 11/29/20 16:45 Dose: 10 mg Documented by: [id number] Bumetanide 1 mg/ Syringe 4 mls @ 4 mls/min IV ONE ONE Stop: 11/29/20 14:47 Last Admin: 11/29/20 15:16 Dose: 4 mls/min Documented by: [id number] Piperacillin Sod/Tazobactam Sod (Zosyn) 4.5 gm in 120 mls @ 240 mls/hr IV NOW ONE Stop: 11/29/20 17:16 Last Infusion: 11/29/20 18:33 Dose: 0 mls/hr Documented by: [id number] Admin: 11/29/20 17:43 Dose: 240 mls/hr Documented by: [id number] Vancomycin HCl 2,750 mg/ (Sodium Chloride) 555 mls @ 200 mls/hr IV NOW ONE Stop: 11/29/20 19:33 Last Admin: 11/29/20 18:33 Dose: 200 mls/hr Documented by: [id number] Imaging Data Radiologist's Impression: Chest X-Ray 11/29/20 14:18 XR chest 1V portable HISTORY: 65 years-old Male weakness acute weakness COMPARISON: Chest radiograph 01/19/2019 TECHNIQUE: Portable AP view the chest FINDINGS: Cardiac silhouette is enlarged. Patchy right greater than left mixed inter stitial and alveolar opacities. Pulmonary vascular congestion. Blunting of the lateral costophrenic angles. No pneumothorax or large pleural effusion. Right- sided PICC is noted with distal tip terminating in the expected location of the superior cavoatrial junction. The patient is mildly rotated. Degenerative changes of the shoulders and spine. IMPRESSION: 1. Right greater than left bilateral pulmonary opacities suggestive of multifocal pneumonia. 2. Cardiomegaly with pulmonary vascular congestion. 3. Right-sided PICC distal tip noted within the region of the superior cavoatrial junction. ACT 112: Negative or not required by law. The above report was generated using voice recognition software. It may contain grammatical, syntax or spelling errors. Electronically signed by: Jonathon Oswald M.D. 11/29/2020 2:[address] 11/29/20 14:18 CT head/brain wo con CLINICAL HISTORY: confusion COMPARISON STUDY: No previous studies for comparison. TECHNIQUE: Axial CT of the brain is performed from the vertex to the skull base. IV contrast was not administered for this examination. A dose lowering technique was utilized adhering to the principles of ALARA. CT DOSE: 743.26 mGy.cm FINDINGS: No intra or extra-axial mass lesions are visualized. There is no CT evidence of acute cortical infarction. There is no evidence of midline shift. There is no acute hemorrhage. No calvarial fractures are visualized. There are minor white matter hypodensities likely on a small vessel basis. There is no evidence of pathologic ventricular dilatation. There is no evidence of acute sinusitis IMPRESSION: No acute intracranial findings ACT 112: Negative or not required by law. Electronically signed by: Kb Lee M.D. 11/29/2020 3:05 PM Discharge Plan Visit Data Chief Complaint: Syncope Stated Complaint: SYNCOPE, ED Provider: Montrell Villegas Discharge Problem: Acute hypoxemic respiratory failure, CHF (congestive heart failure), Multifocal pneumonia Patient Disposition: Admitted As Inpatient Discharge Instructions Interventions: ED Discharge Assessment Last Done: 11/29/20 19:05 Discharge Problem: CHF (congestive heart failure) Qualifiers: Heart failure type: unspecified Heart failure chronicity: acute on chronic Qualified Code(s): I50.9 - Heart failure, unspecified
--- NOTE | 2020-11-29 14:33 | XRay Report ---
XR chest 1V portable HISTORY: 65 years-old Male weakness acute weakness COMPARISON: Chest radiograph 01/19/2019 TECHNIQUE: Portable AP view the chest FINDINGS: Cardiac silhouette is enlarged. Patchy right greater than left mixed interstitial and alveolar opacit ies. Pulmonary vascular congestion. Blunting of the lateral costophrenic angles. No pneumothorax or l arge pleural effusion. Right-sided PICC is noted with distal tip terminating in the expected location of the superior cavoatrial junction. The patient is mildly rotated. Degenerative changes of the shou lders and spine. IMPRESSION: 1. Right greater than left bilateral pulmonary opacities suggestive of multifocal pneumonia. 2. Cardiomegaly with pulmonary vascular congestion. 3. Right-sided PICC distal tip noted within the region of the superior cavoatrial junction. ACT 112: Negative or not required by law. The above report was generated using voice recognition software. It may contain grammatical, syntax o r spelling errors. Electronically signed by: Jonathon Oswald M.D. 11/29/2020 2:32 PM
[2020-11-29] MEDS ORDERED: BUMETANIDE 1 MG in SYRINGE 0 ML IV ONE (14:46)
--- NOTE | 2020-11-29 15:06 | CT Scan Report ---
CT head/brain wo con CLINICAL HISTORY: confusion COMPARISON STUDY: No previous studies for comparison. TECHNIQUE: Axial CT of the brain is performed from the vertex to the skull base. IV contrast was not administered for this examination. A dose lowering technique was utilized adhering to the principles of ALARA. CT DOSE: 743.26 mGy.cm FINDINGS: No intra or extra-axial mass lesions are visualized. There is no CT evidence of acute cortical infarc tion. There is no evidence of midline shift. There is no acute hemorrhage. No calvarial fractures ar e visualized. There are minor white matter hypodensities likely on a small vessel basis. There is no evidence of pathologic ventricular dilatation. There is no evidence of acute sinusitis IMPRESSION: No acute intracranial findings ACT 112: Negative or not required by law. Electronically signed by: Kb Lee M.D. 11/29/2020 3:05 PM
--- NOTE | 2020-11-29 15:31 | Electrocardiogram Report ---
Test Reason : Blood Pressure : / mmHG Vent. Rate : 072 BPM Atrial Rate : 072 BPM P-R Int : 156 ms QRS Dur : 148 ms QT Int : 440 ms P-R-T Axes : 012 -37 -18 degrees QTc Int : 481 ms Normal sinus rhythm Left axis deviation Right bundle branch block Moderate voltage criteria for LVH, may be normal variant Abnormal ECG When compared with ECG of 25-JAN-2019 12:17, T wave inversion now evident in Anterior leads Confirmed by Pastor Haddad ([id number]) on 11/29/2020 3:31:37 PM Referred By: [facility] Confirmed By:Pastor Haddad
[2020-11-29 15:41] LABS: Base Excess VBG 9.7 mEq/L; Oxygen Saturation VBG 62.6 %; pH VBG 7.44 (7.36-7.41)
[2020-11-29 15:44] LABS: Appearance Urine Clear (Clear); Bilirubin Urine Negative (Negative); Blood Urine 2+ (Negative); Color Urine Yellow; Glucose Urine UA Negative (Negative); Ketones Urine Negative (Negative); Leukocyte Esterase Urine 1+ (Negative); Nitrite Urine Positive (Negative); Protein Urine 1+ (Negative); Specific Gravity Urine 1.015 (1.000-1.030); Urobilinogen Urine Negative (Negative); pH Urine 5.5 (4.5-7.5)
[2020-11-29 16:26] LABS: Amorphous Sediment Urine Present (None Prsent); Bacteria Urine 1+ (Negative); Epithelial Cell Urine >30 /lpf (0-5); WBC Urine >30 /hpf (0-5)
[2020-11-29 16:26] LABS: Basophils # (auto) 0.01 K/uL (0-0.2); Basophils % (auto) 0.1 %; Eosinophils # (auto) 0.02 K/uL (0-0.5); Eosinophils % (auto) 0.2 %; Hematocrit (blood only) 33.2 % (42-52); Hemoglobin 10.6 g/dL (14.0-18.0); Immature Granulocytes # (auto) 0.08 K/uL (0.00-0.02); Immature Granulocytes % (auto) 0.8 %; Lymphocytes # (auto) 0.72 K/uL (1.2-3.4); Lymphocytes % (auto) 7.6 %; Mean Corpuscular Hemoglobin 28.6 pg (25-34); Mean Corpuscular Hgb Conc 31.9 g/dL (32-36); Mean Corpuscular Volume 89.7 fL (80-100); Mean Platelet Volume 8.9 fL (7.4-10.4); Monocytes # (auto) 0.76 K/uL (0.11-0.59); Neutrophils # (auto) 7.91 K/uL (1.4-6.5); Neutrophils % (auto) 83.3 %; Platelet Count 190 K/uL (130-400); RDW Coefficient of Variation 15.3 % (11.5-14.5); RDW Standard Deviation 49.3 fL (36.4-46.3)
[2020-11-29] MEDS ORDERED: dexAMETHasone**PF** 10 MG/ML VIAL IV ONE (16:35)
[2020-11-29] MEDS ORDERED: PIPERACILL/TAZOBAC CONSULT ACTIVE PRN (16:47)
[2020-11-29] MEDS ORDERED: VANCOMYCIN HCL 2,750 MG in SODIUM CHLORIDE 0.9% 500 ML IV ONE (16:47)
[2020-11-29] MEDS ORDERED: PIPERACILLIN/TAZOBACTAM 4.5 GM/120 ML BAG IV ONE (16:47)
[2020-11-29] MEDS ORDERED: VANCOMYCIN CONSULT ACTIVE PRN (16:47)
[2020-11-29 16:51] LABS: BUN Creatinine Ratio 25.5 (10-20); Bilirubin,Total 0.6 mg/dl (0.2-1); Calcium 9.1 mg/dl (8.5-10.1); Creatinine Clr Calc Pharmacy 114.7 ml/min; Est GFR (African American) 91.3 ml/min; Est GFR (Non-African American) 78.8 ml/min; Globulin 3.1 gm/dl (2.5-4.0); Magnesium 2.2 mg/dl (1.8-2.4); Potassium 3.5 mmol/L (3.5-5.1); Total Protein 6.1 gm/dl (6.4-8.2); Troponin I 0.021 ng/ml (0-0.045)
[2020-11-29 17:00] LABS: Thyroid Stimulating Hormone 1.95 uIu/ml (0.300-4.500)
--- NOTE | 2020-11-29 17:03 | History & Physical Report ---
Date of Service November 29, 2020 Assessment & Plan (1) Acute hypoxemic respiratory failure: - Admit to PCU - Continue on bipap currently on 15 L with sats in upper 90s - ABG pH 7.44, CO2 55, po2 32, HCO3 36 - Prednisone 40 mg daily was tapering down, currently on 30 mg daily has been ongoing since he arrived at [facility]. - Pt had COVID swab on October 20, and reswab upon admission to [facility] cannot be found at this time. Nursing to call our team back regarding if find results. - COVID positive on admission, continue isolation precautions (2) Multifocal pneumonia: - Afebrile currently, WBC 9.5 -CXR reviewed -1. Right greater than left bilateral pulmonary opacities suggestive of multifocal pneumonia. 2. Cardiomegaly with pulmonary vascular congestion. 3. Right-sided PICC distal tip noted within the region of the superior cavoatrial junction. - Continue on vanc and zosyn - Pt has a PICC line in place however has not recently been on antibiotic. Possibel that he required abx from October hospitalization until while he was in [facility]ACH. Was not on abx while in [facility]. - Follow blood cultures - Sputum culture is able to produce - Checking procalcition, ferritin, ESR, CRP, lactate now - Continue respiratory support as above (3) COVID-19: - Originally tested positive on October 20 at [place] - No record of testing negative in between these two hospitalizations, however the facility reports that they do not accept COVID + patients from outside facilities, but nursing is "unable to comment". (4) CHF (congestive heart failure): - Takes Bumex 2 mg daily, received dose of 1 mg IV in the ER - Chronic mccormack in place, follow strict I/Os, daily weights - EF preserved per last ECHO on outpatient note review, recheck 2D echo. - Cardiology consulted - Check BNP now, has been elevated at 34,000 during previous hospitalization with acute hypoxic respiratory failure. (5) Hypertension: - Continue antihypertensives, BP elevated at 162/86 (6) Hyperlipidemia: -Continue statin therapy (7) Morbid obesity: - morbidly obese with BMI of 43.9 (8) Depression: -Continue antidepressant medication (9) Coronary artery disease: -History of such, continue statin, ARB, beta-iglesia (10) Anemia: -Patient was previously scoped during his hospital stay at [facility] due to significant anemia with hemoglobin of 7.7, he required a transfusion at that point in time. His hemoglobin today is 10.6 on admission. Has been testing positive with occult blood at [facility] however no obvious bright red blood per rectum, hematemesis, black tarry stools. (11) CKD (chronic kidney disease) stage 3, GFR 30-59 ml/min: -History of such, creatinine baseline of 1. 2, currently 1.01 (12) Diabetes mellitus, type II: -Continue Lantus 20 units twice daily, NovoLog 5 units TID with meals. Will order sliding scale insulin. Lantus was recently increased because of his prednisone dosing at [facility]. -Glycemic pharmacy consulted for assistance Continue PPI for GI prophylaxis DVT ppx: - teds, scds CODE: Full code Dispo: From home, likely to remain in the hospital x 1-2 days History of Present Illness Primary Care Provider: [facility] Discussed with nursing at [facility] as pt was unable to give history while on Bipap. Please refer to attending documentation as I did not see the patient in person due to being COVID-19 positive on admission. This is a 65 yo M with PMHx of venous insufficiency, DM II, CKD III, CAD, HLD, COPD, FRANCIS intolerant to CPAP, morbid obesity with BMI of 43.9, CHF with preserve d EF who presents from [facility] for syncopal episode and hypoxia. Pt was getting up with Raudel lift from bed to participate with therapy, pt reported feeling like he needed to have a BM and was gotten on the bedside commode. He hand had a moment of syncope, galvan color, no response to sternal rub, but never lost a pulse. He did come back to verbal stimuli within a few minutes. Glucose was 143. VSS aside from O2 sats at 82% on 4L. Placed on nonrebreather and came up to 87%. Pt was clammy and was sent via EMS to [facility]. Recently, the patient has been hospitalized primarily at [facility] for acute respiratory failure due to COVID+ and CHF. Pt was admitted at [place] from 10/12 -10/19 for decompensated CHF. Discharged on Bumex. Pt returned to the [place] ER on 10/22 at [facility] and tested postive for COVID. BNP was 34,000 at that time. He was again treated with bumex. Pt was treated with remdesivir, decadron, actemara for COVID. R> L infiltrates, vapotherm and bipap HS. He also suffered acute renal failure. At that time he had upper GI/lower GI scopes due to significant anemia with hgb 7.7, baseline hgb of 9.6, and but scopes were negative. He required transfusion. Pt was stable and discharged to [facility] for placement. Pt was admitted to [facility] on 11/22 from [facility]. He was admitted there on on prednisone taper, currently on 30 mg daily. Per nursing, the facilty does not accept COVID positive patients, however they are unable to find formal documentation of negative status upon leaving [facility] and coming to their facility. They will look for this and call back our team if results are found. Pt has been placed on bipap in the ER at 15 L with sats of 98%. Allergies Allergy/AdvReac Type Severity Reaction Status Date / Time No Known Allergies Allergy Verified 11/29/20 14:51 Home Medications Medication Instructions Recorded Confirmed Type acetaminophen [Tylenol] 650 mg PO Q4 PRN 11/29/20 11/29/20 History amlodipine 10 mg PO DAILY 11/29/20 11/29/20 History atorvastatin 40 mg PO HS 11/29/20 11/29/20 History bumetanide [Bumex] 2 mg PO DAILY 11/29/20 11/29/20 History carvedilol 12.5 mg PO BIDM 11/29/20 11/29/20 History cholecalciferol (vitamin D3) 50 mcg PO DAILY 11/29/20 11/29/20 History [Vitamin D3] docusate sodium 100 mg PO BID PRN 11/29/20 11/29/20 History duloxetine 60 mg PO DAILY 11/29/20 11/29/20 History ferrous sulfate 325 mg PO BID 11/29/20 11/29/20 History gabapentin 300 mg PO HS 11/29/20 11/29/20 History insulin aspart U-100 [Novolog 5 unit SUBCUT TIDM 11/29/20 11/29/20 History U-100 Insulin aspart] insulin glargine [Lantus U-100 20 unit SUBCUT BID 11/29/20 11/29/20 History Insulin] ipratropium-albuterol 1 puff INHALATION QID 11/29/20 11/29/20 History magnesium hydroxide [Milk of 30 ml PO DAILY PRN 11/29/20 11/29/20 History Magnesia] montelukast [Singulair] 10 mg PO HS 11/29/20 11/29/20 History pantoprazole [Protonix] 40 mg PO DAILY 11/29/20 11/29/20 History polyethylene glycol 3350 [Miralax] 17 g PO DAILY PRN 11/29/20 11/29/20 History potassium chloride 20 meq PO DAILY 11/29/20 11/29/20 History prednisone 30 mg PO DAILY 11/29/20 11/29/20 History sennosides-docusate sodium 1 tab-cap PO .QLUNCH PRN 11/29/20 11/29/20 History [Senokot-S] sertraline 100 mg PO DAILY 11/29/20 11/29/20 History tamsulosin 0.8 mg PO DAILY 11/29/20 11/29/20 History umeclidinium-vilanterol [Anoro 1 inh INHALATION DAILY 11/29/20 11/29/20 History Ellipta] Past Med/Surg History Medical History (Updated 11/29/20 @ 17:40 by Jill Coleman PA-C) CHF (congestive heart failure) Coronary artery disease Depression Diabetes mellitus, type II Hyperlipidemia Hypertension Morbid obesity Venous insufficiency Surgical History H/O knee surgery Family History Other Throat cancer Social History Smoking Status: Never smoker Hx Alcohol Use: Yes Alcohol type: beer Hx Substance Use: No Preferred Language: Swiss Communication Ability: Effective Finnish Rubber Required: No Beliefs That Will Affect Care: None marital status: Single Current Living Situation: Rehab How many Children do You have: 0 Other Information That Helps Us Care for You: No Feels Safe at Home: Yes Safety Concerns: Feels Safe At This Time Assistive Devices: None Review of Systems Review of Systems: Please refer to attending addendum. Physical Exam Physical Exam: Please refer to attending addendum. Results & Data Results & Data ([facility]) Vital Signs (Past 12 Hours) Vital Signs Temp Pulse Resp BP Pulse Ox 11/29/20 14:23 68 10 L 92 11/29/20 14:22 69 18 93 11/29/20 13:51 36.5 C 67 21 151/85 H 98 Diagnostic Findings Chest X-Ray 11/29/20 14:18 XR chest 1V portable HISTORY: 65 years-old Male weakness acute weakness COMPARISON: Chest radiograph 01/19/2019 TECHNIQUE: Portable AP view the chest FINDINGS: Cardiac silhouette is enlarged. Patchy right greater than left mixed interstitial and alveolar opacities. Pulmonary vascular congestion. Blunting of the lateral costophrenic angles. No pneumothorax or large pleural effusion. Right-sided PICC is noted with distal tip terminating in the expected location of the superior cavoatrial junction. The patient is mildly rotated. Degenerative changes of the shoulders and spine. IMPRESSION: 1. Right greater than left bilateral pulmonary opacities suggestive of multifocal pneumonia. 2. Cardiomegaly with pulmonary vascular congestion. 3. Right-sided PICC distal tip noted within the region of the superior cavoatrial junction. ACT 112: Negative or not required by law. The above report was generated using voice recognition software. It may contain grammatical, syntax or spelling errors. Electronically signed by: Jonathon Oswald M.D. 11/29/2020 2:[address] 11/29/20 14:18 CT head/brain wo con CLINICAL HISTORY: confusion COMPARISON STUDY: No previous studies for comparison. TECHNIQUE: Axial CT of the brain is performed from the vertex to the skull base. IV contrast was not administered for this examination. A dose lowering technique was utilized adhering to the principles of ALARA. CT DOSE: 743.26 mGy.cm FINDINGS: No intra or extra-axial mass lesions are visualized. There is no CT evidence of acute cortical infarction. There is no evidence of midline shift. There is no acute hemorrhage. No calvarial fractures are visualized. There are minor white matter hypodensities likely on a small vessel basis. There is no evidence of pathologic ventricular dilatation. There is no evidence of acute sinusitis IMPRESSION: No acute intracranial findings ACT 112: Negative or not required by law. Electronically signed by: Kb Lee M.D. 11/29/2020 3:05 PM ECG Additional Comments: Test Reason : Blood Pressure : / mmHG Vent. Rate : 072 BPM Atrial Rate : 072 BPM P-R Int : 156 ms QRS Dur : 148 ms QT Int : 440 ms P-R-T Axes : 012 -37 -18 degrees QTc Int : 481 ms Normal sinus rhythm Left axis deviation Right bundle branch block Moderate voltage criteria for LVH, may be normal variant Abnormal ECG When compared with ECG of 25-JAN-2019 12:17, T wave inversion now evident in Anterior leads Confirmed by Pastor Haddad ([id number]) on 11/29/2020 3:31:37 PM Code Status & VTE Plan Code Status Full code Supervising Physician Co-Signing Physician Notes Patient was seen and examined. Agree with Jill history assessment and plan. History obtained from [facility] chart and staff, ER physician since patient is a poor historian. 65 yo M with PMHx of venous insufficiency, DM II, CKD III, CAD, HLD, COPD, FRANCIS intolerant to CPAP, morbid obesity with BMI of 43.9, CHF with preserved EF who presents from [facility] for syncopal episode and hypoxia. Patient was recently discharged from [facility] about 1 month ago for respiratory failure due to CHF exacerbation and Covid 19. Received remdesivir, decadron, actemara for COVID. R> L infiltrates, vapotherm and bipap HS. he was discharged to LTAC and from LTAC transferred to [facility]. Baseline seems to be on 4 to 5 L oxygen. This morning while patient was trying to get up from bed to participate to therapy, he had a syncopal episode and was found to be hypoxia with oxygen saturation 87%. Syncopal episode lasted for few minutes. Patient said his breathing worsening with exertion. currently in the ER patient is on BiPAP. Currently he denies any symptoms of shortness of breath, chest pain, palpitation and cough. On exam, Pt is obese with no acute distress, no wheezing but diminished breath sounds, regular heart rate, was able to follow commands. He had a PICC line on but no document of any IV antibiotic. chest x- ray on admission showed right greater than left bilateral pulmonary opacities suggestive of multifocal pneumonia and cardiomegaly with pulmonary vascular congestion. CT head showed no acute intracranial abnormality. Labs show elevated proBNP 2167, VBG with PCO2 55, lactic acid and procalcitonin within normal limits. UA positive for nitrite, bacteria and leukocytes. received Bumex IV in the ER. Acute respiratory failure mostly due to CHF exacerbation versus p neumonia. Not sure if chest x-ray finding might be related due to Covid 19 one months ago. Due to her recent hospitalization and LTAC will treat for healthcare associated pneumonia. Will start on Zosyn and Vanco for now. If MRSA swab negative, will DC Vanco. follow-up blood culture. Continue BiPAP at bedtime and will get an ABG in a.m. Consider pulmonary consult. He seems to be diuresis well after IV Bumex given in the ER. Will reassess in a.m. for additional IV diuresis. Will consult cardiology. Will monitor I/O. will try to get document about his last hospitalization in [place] tomorrow. Continue monitor closely telemetry. Please refer to [facility] documentation for other problems. MD Dc (1) CHF (congestive heart failure) Heart failure chronicity: acute on chronic Heart failure type: unspecified Qualified Code(s): I50.9 - Heart failure, unspecified
[2020-11-29 17:57] LABS: C Reactive Protein 0.3 mg/dl (0-0.29); Ferritin 72.2 ng/ml (8-388)
[2020-11-29] MEDS ORDERED: ACETAMINOPHEN 325 MG TAB PO PRN ×2 (18:20→19:02)
[2020-11-29] MEDS ORDERED: MAGNESIUM HYDROXIDE SUSP 30 ML UDC PO PRN (18:20)
[2020-11-29] MEDS ORDERED: DOCUSATE SODIUM 100 MG CAP PO PRN (18:20)
[2020-11-29] MEDS ORDERED: POLYETHYLENE (MIRALAX) 17 GM PACK PO PRN (18:20)
[2020-11-29] MEDS ORDERED: DEXTROSE 50% 50 ML SYRINGE IV PRN (19:02)
[2020-11-29] MEDS ORDERED: GLUCOSE 10 TABS/TUBE PO PRN (19:02)
[2020-11-29] MEDS ORDERED: GLUCOSE 40% GEL 15 GM TUBE PO PRN (19:02)
[2020-11-29] MEDS ORDERED: ONDANSETRON INJ 2 MG/ML 2 ML VIAL IV PRN (19:02)
[2020-11-29] MEDS ORDERED: CARBOHYDRATES FOR HYPOGLYCEMIA PO PRN (19:02)
[2020-11-29] MEDS ORDERED: GLUCAGON FOR INJ 1 MG VIAL SQ PRN (19:02)
[2020-11-29] MEDS ORDERED: PHARMACY GLYCEMIC MGMT CONSULT PRN (19:09)
[2020-11-29] MEDS: GABAPENTIN 300 MG CAP PO SCH (20:29)
[2020-11-29] MEDS: ATORVASTATIN 40 MG TAB PO SCH (20:29)
[2020-11-29] MEDS: FERROUS SULFATE 325 MG TAB PO SCH (20:29)
[2020-11-29] MEDS: MONTELUKAST SODIUM 10 MG TABLET PO SCH (20:30)
[2020-11-29] MEDS: INSULIN ASPART 100 UNITS/ML 3 ML PEN SC SCH (20:39)
[2020-11-29] MEDS ORDERED: INSULIN GLARGINE SOLOSTAR 100 UNITS/ML 3 ML PEN SC SCH (21:00)
[2020-11-29] MEDS ORDERED: IPRATROPIUM BROMIDE/ALBUTEROL respimat INH INH SCH (21:00)
[2020-11-29] MEDS: PIPERACILLIN/TAZOBACTAM 4.5 GM in DEXTROSE 5% 100 ML IV SCH (22:15)
[2020-11-30] MEDS: INSULIN ASPART 100 UNITS/ML 3 ML PEN SC SCH ×6 (00:10→20:28)
[2020-11-30] MEDS ORDERED: VANCOMYCIN HCL 1,750 MG in SODIUM CHLORIDE 0.9% 500 ML IV SCH (03:00)
[2020-11-30] MEDS: PIPERACILLIN/TAZOBACTAM 4.5 GM in DEXTROSE 5% 100 ML IV SCH ×3 (06:06→21:16)
[2020-11-30 07:48] LABS: Hematocrit (blood only) 30.6 % (42-52); Mean Corpuscular Hemoglobin 29.9 pg (25-34); Mean Corpuscular Hgb Conc 32.7 g/dL (32-36); Mean Corpuscular Volume 91.3 fL (80-100); Mean Platelet Volume 8.6 fL (7.4-10.4); Platelet Count 201 K/uL (130-400); RDW Coefficient of Variation 15.1 % (11.5-14.5); RDW Standard Deviation 49.5 fL (36.4-46.3); Red Blood Count 3.35 M/uL (4.7-6.1); White Blood Count 7.94 K/uL (4.8-10.8)
[2020-11-30 07:51] LABS: Base Excess ABG 7.8 mEq/L (-9-1.8); HCO3 ABG 32 mmol/L (19-24); Oxygen Saturation ABG 97.3 % (90-95); PCO2 ABG 45 mmHg (35-46); PO2 ABG 94 mmHg (80-95); pH ABG 7.47 (7.35-7.45)
[2020-11-30 07:52] LABS: Allen Test Pos (Pos)
[2020-11-30] MEDS ORDERED: INSULIN ASPART PER UNIT SQ SCH (08:00)
--- NOTE | 2020-11-30 08:05 | Pulmonary Consultation ---
Date of Consultation November 30, 2020 Assessment & Plan (1) Acute on chronic respiratory failure with hypoxemia: Chest x-ray 11/27/2020 personally reviewed: Portable film, poor inspiratory effort, diffuse alveolar opacities appreciated bilaterally, there is volume loss on the right side. AB.47/45/94 on 4 L --Acute on chronic hypoxic respiratory failure Multifactorial Patient has HFpEF with presentation being 2167 Patient recently had COVID-19 pneumonia and the chest x-ray shows multifocal opacities COVID-19 positive 10/22/20. Retested on admission and positive 11/29/20, CRP 0.3, procalcitonin less than 0.05 Nasal MRSA negative Patient had completed course of dexamethasone, remdesivir and he got tocilizumab approximately a month ago --COPD Continue with Anoro Duo nebs as needed shortness of breath --FRANCIS Recommend BiPAP nightly and as needed for shortness of breath Plan: Recommend continuing with diuretics to keep the patient negative balance Currently patient is on Bumex 2 mg on a daily basis. If the patient does not have good output from it would recommend changing to twice a day Continue with incentive spirometry and flutter valve along with mucolytic BiPAP nightly and as needed shortness of breath O2 supplementation to keep oxygen saturation between 88-92% Please note the above document was generated using voice recognition software. It may contain grammatical, syntax or spelling errors.Any formal questions or concerns about the content, text or information contained within the body of this dictation should be directly addressed to the provider for clarification. (2) Multifocal pneumonia: (3) FRANCIS (obstructive sleep apnea): (4) COVID-19: (5) COPD (chronic obstructive pulmonary disease): History of Present Illness Attending Physician: Ori Teague DO History of Present Illness 65-year-old male past medical history of CKD stage III, dyslipidemia, COPD, FRANCIS not using CPAP, HFpEF was admitted to the hospital because of syncopal episode and hypoxia. Patient was recently admitted to [facility] 10/22 for COVID-19 pneumonia. He was treated with remdesivir, dexamethasone as well as Tocilizumab. He was ultimately discharged to LTAC and then to . In the ED patient was found to be Covid 19 PCR positive. Pulmonary were consulted for his respiratory status. At the time of examination patient stated he is feeling much better compared to coming to the hospital. Patient is very difficult to get history from. He denies any chest pain right now Denies any shortness of breath. He does state that he has cough and he is able to bring up phlegm is usually green in color. Denies any nausea or vomiting. Denies any dizziness, no palpitation. Urinating well. Social history: Never smoked Pets: Denies Allergies: Denies Asthma: Denies Lung cancer: None Allergies Allergy/AdvReac Type Severity Reaction Status Date / Time No Known Allergies Allergy Verified 11/29/20 14:51 Home Medications Medication Instructions Recorded Confirmed Type acetaminophen [Tylenol] 650 mg PO Q4 PRN 11/29/20 11/29/20 History amlodipine 10 mg PO DAILY 11/29/20 11/29/20 History atorvastatin 40 mg PO HS 11/29/20 11/29/20 History bumetanide [Bumex] 2 mg PO DAILY 11/29/20 11/29/20 History carvedilol 12.5 mg PO BIDM 11/29/20 11/29/20 History cholecalciferol (vitamin D3) 50 mcg PO DAILY 11/29/20 11/29/20 History [Vitamin D3] docusate sodium 100 mg PO BID PRN 11/29/20 11/29/20 History duloxetine 60 mg PO DAILY 11/29/20 11/29/20 History ferrous sulfate 325 mg PO BID 11/29/20 11/29/20 History gabapentin 300 mg PO HS 11/29/20 11/29/20 History insulin aspart U-100 [Novolog 5 unit SUBCUT TIDM 11/29/20 11/29/20 History U-100 Insulin aspart] insulin glargine [Lantus U-100 20 unit SUBCUT BID 11/29/20 11/29/20 History Insulin] ipratropium-albuterol 1 puff INHALATION QID 11/29/20 11/29/20 History magnesium hydroxide [Milk of 30 ml PO DAILY PRN 11/29/20 11/29/20 History Magnesia] montelukast [Singulair] 10 mg PO HS 11/29/20 11/29/20 History pantoprazole [Protonix] 40 mg PO DAILY 11/29/20 11/29/20 History polyethylene glycol 3350 [Miralax] 17 g PO DAILY PRN 11/29/20 11/29/20 History potassium chloride 20 meq PO DAILY 11/29/20 11/29/20 History prednisone 30 mg PO DAILY 11/29/20 11/29/20 History sennosides-docusate sodium 1 tab-cap PO .QLUNCH PRN 11/29/20 11/29/20 History [Senokot-S] sertraline 100 mg PO DAILY 11/29/20 11/29/20 History tamsulosin 0.8 mg PO DAILY 11/29/20 11/29/20 History umeclidinium-vilanterol [Anoro 1 inh INHALATION DAILY 11/29/20 11/29/20 History Ellipta] Patient History Medical History CHF (congestive heart failure) Coronary artery disease Depression Diabetes mellitus, type II Hyperlipidemia Hypertension Morbid obesity FRANCIS (obstructive sleep apnea) Venous insufficiency Surgical History H/O knee surgery Family History Other Throat cancer Social History Smoking Status: Never smoker Hx Alcohol Use: Yes Alcohol type: beer Hx Substance Use: No Preferred Language: Croatian Communication Ability: Effective 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 Beliefs That Will Affect Care: None marital status: Single Current Living Situation: Rehab How many Children do You have: 0 Other Information That Helps Us Care for You: No Feels Safe at Home: Yes Safety Concerns: Feels Safe At This Time Assistive Devices: Oxygen - Continuous Review of Systems Review of Systems: All systems reviewed & are unremarkable except as noted in HPI & below Physical Exam Physical Exam: Constitutional: No acute distress HEENT: EOMI, PERRLA Respiratory system: Decreased air entry bilaterally, more decreased on the right side, no wheeze, no lower, positive crackles bilateral lower lobes CVS: S1-S2 positive, no murmurs or gallops, distant heart sounds Abdomen: Soft, nontender, nondistended, positive bowel sounds x4, obese Extremities: +2 pulses bilaterally radialis/ dorsalis pedis, no cyanosis, no edema, chronic stasis dermatitis appreciated bilaterally Neuro: Awake alert oriented x3 Psych: Normal mood and affect G/U: Positive Gamez Skin: no rashes, warm and dry Lymphatic: no cervical or axillary lymphadenopathy Results & Data Results & Data ([facility]) Vital Signs (Past 12 Hours) Vital Signs Temp Pulse Pulse Resp BP Pulse Ox 11/30/20 07:47 36.6 C 84 22 165/82 H 94 11/30/20 03:16 36.9 C 63 20 168/89 H 99 11/30/20 01:34 63 11/29/20 23:14 36.6 C 71 20 145/77 H 99 11/29/20 22:30 65 19 95 11/30/20 07:26 PG Care Time/CCT Total # of Minutes Spent Total Time Spent with Patient: Total time spent is greater than 50% in coordi nation of care (as documented) at patient's floor/unit and/or counseling patient: Coding Level of Care Code 46491 Inpt Consult Level 4 Diagnoses Acute on chronic respiratory failure with hypoxemia J96.21 Multifocal pneumonia J18.9 FRANCIS (obstructive sleep apnea) G47.33 COVID-19 U07.1 COPD (chronic obstructive pulmonary disease) J44.9
[2020-11-30 08:24] LABS: Albumin Level 2.7 gm/dl (3.4-5.0); BUN Creatinine Ratio 26.1 (10-20); Calcium 8.7 mg/dl (8.5-10.1); Creatinine Clr Calc Pharmacy 113.8 ml/min; Est GFR (African American) 91.3 ml/min; Est GFR (Non-African American) 78.8 ml/min; Magnesium 2.1 mg/dl (1.8-2.4); Potassium 3.4 mmol/L (3.5-5.1)
[2020-11-30 08:27] LABS: Albumin Globulin Ratio 0.8 (0.9-2); Bilirubin,Total 0.6 mg/dl (0.2-1); Globulin 3.2 gm/dl (2.5-4.0); Phosphorus 3.4 mg/dl (2.5-4.9); Total Protein 5.9 gm/dl (6.4-8.2)
[2020-11-30 08:59] LABS: Estimated Average Glucose 157 mg/dl; Hemoglobin A1C 7.1 % (4.5-5.6)
[2020-11-30] MEDS: POTASSIUM CHLORIDE CRTAB 20 MEQ TABCR PO SCH (09:05)
[2020-11-30] MEDS: UMECLIDINIUM/VILANTEROL 62.5/25MCG 7 PUFFS/INHALER INH SCH (09:05)
[2020-11-30] MEDS: SERTRALINE HCL 100 MG TABLET PO SCH (09:05)
[2020-11-30] MEDS: PANTOprazole 40 MG TAB PO SCH (09:06)
[2020-11-30] MEDS: FERROUS SULFATE 325 MG TAB PO SCH ×2 (09:06→20:28)
[2020-11-30] MEDS: amLODIPine BESYLATE 5 MG TAB PO SCH (09:06)
[2020-11-30] MEDS: CHOLECALCIFEROL 1,000 UNITS 25 MCG TAB PO SCH (09:06)
[2020-11-30] MEDS: DULoxetine HCL 60 MG CAP PO SCH (09:06)
[2020-11-30] MEDS: BUMETANIDE 1 MG TAB PO SCH (09:06)
[2020-11-30] MEDS: carvediloL 12.5 MG TAB PO SCH ×2 (09:06→17:07)
[2020-11-30] MEDS: TAMSULOSIN HCL 0.4 MG CAP PO SCH (09:07)
[2020-11-30] MEDS ORDERED: INSULIN GLARGINE SOLOSTAR 100 UNITS/ML 3 ML PEN SC SCH ×2 (09:15→21:00)
--- NOTE | 2020-11-30 09:58 | XRay Report ---
XR chest 1V portable CLINICAL HISTORY: Abnormal chest x-ray. Shortness of breath COMPARISON STUDY: 11/29/2000 FINDINGS: The heart remains enlarged. There are persistent asymmetric bilateral pulmonary airspace op acities consistent with a multifocal pneumonia. There is no change in position of a right-sided PICC catheter. No large pleural effusions are visualized.[ IMPRESSION: Persistent asymmetric bilateral pulmonary airspace opacities right greater than left cons istent with a multifocal pneumonia ACT 112: Negative or not required by law. Electronically signed by: Kb Lee M.D. 11/30/2020 9:56 AM
--- NOTE | 2020-11-30 10:28 | Cardiology Consultation ---
Date of Consultation November 30, 2020 Assessment & Plan (1) Acute on chronic respiratory failure with hypoxemia: Patient is a complex 65-year-old male with a history and medical issues as outlined. Recent hospitalization with multifocal pneumonia and diastolic heart failure Covid related. Echocardiogram today demonstrates preserved LV systolic function chest x-rays confirm multifocal pneumonia component of diastolic heart failure not completely excluded would keep I's and O's negative but overwhelming heart failure not present Predominant respiratory issues appear pulmonary in etiology We will continue to follow as clinical course progresses Would continue prehospital antihypertensives and cardiac medications. Cardiac catheterization done 2018 without obstructive disease, LV systolic function preserved on echocardiogram today (2) Multifocal pneumonia: (3) Chronic diastolic heart failure: (4) Morbid obesity: (5) COVID-19: History of Present Illness Reason for Consultation: Hypoxic respiratory failure Requesting Physician: Ori Teague DO Attending Physician: Ori Teague DO History of Present Illness Patient is a 65-year-old male with complex recent and past history. He is an extremely poor historian but records were reviewed from recent hospitalizations as well as prior outpatient records. His underlying medical history is notable for 1. Morbid obesity 2. Longstanding hypertension with associated chronic diastolic congestive heart failure with preserved ejection fraction 3. Obstructive sleep apnea/hypoventilation 4. Right bundle branch block 5. Cardiac catheterization October 2018 with mild coronary atherosclerosis, 3040 % mid LAD 6. Recent hospitalization with acute respiratory failure/Covid pneumonia [facility], diastolic heart failure 7. Anemia requiring transfusion Patient is referred due to complaints of respiratory failure. Chest x-ray on presentation demonstrated multifocal infiltrates right substantially greater than left, possible component of underlying vascular congestion Patient has responded to IV diuretics overnight oxygen demands have improved, patient no longer requiring BiPAP No chest pains or discomfort EKGs without acute change with underlying conduction abnormalities present Echocardiogram on preliminary review demonstrates normal to hyperdynamic LV systolic function and no gross valvular disease Allergies Allergy/AdvReac Type Severity Reaction Status Date / Time No Known Allergies Allergy Verified 11/29/20 14:51 Home Medications Medication Instructions Recorded Confirmed Type acetaminophen [Tylenol] 650 mg PO Q4 PRN 11/29/20 11/29/20 History amlodipine 10 mg PO DAILY 11/29/20 11/29/20 History atorvastatin 40 mg PO HS 11/29/20 11/29/20 History bumetanide [Bumex] 2 mg PO DAILY 11/29/20 11/29/20 History carvedilol 12.5 mg PO BIDM 11/29/20 11/29/20 History cholecalciferol (vitamin D3) 50 mcg PO DAILY 11/29/20 11/29/20 History [Vitamin D3] docusate sodium 100 mg PO BID PRN 11/29/20 11/29/20 History duloxetine 60 mg PO DAILY 11/29/20 11/29/20 History ferrous sulfate 325 mg PO BID 11/29/20 11/29/20 History gabapentin 300 mg PO HS 11/29/20 11/29/20 History insulin aspart U-100 [Novolog 5 unit SUBCUT TIDM 11/29/20 11/29/20 History U-100 Insulin aspart] insulin glargine [Lantus U-100 20 unit SUBCUT BID 11/29/20 11/29/20 History Insulin] ipratropium-albuterol 1 puff INHALATION QID 11/29/20 11/29/20 History magnesium hydroxide [Milk of 30 ml PO DAILY PRN 11/29/20 11/29/20 History Magnesia] montelukast [Singulair] 10 mg PO HS 11/29/20 11/29/20 History pantoprazole [Protonix] 40 mg PO DAILY 11/29/20 11/29/20 History polyethylene glycol 3350 [Miralax] 17 g PO DAILY PRN 11/29/20 11/29/20 History potassium chloride 20 meq PO DAILY 11/29/20 11/29/20 History prednisone 30 mg PO DAILY 11/29/20 11/29/20 History sennosides-docusate sodium 1 tab-cap PO .QLUNCH PRN 11/29/20 11/29/20 History [Senokot-S] sertraline 100 mg PO DAILY 11/29/20 11/29/20 History tamsulosin 0.8 mg PO DAILY 11/29/20 11/29/20 History umeclidinium-vilanterol [Anoro 1 inh INHALATION DAILY 11/29/20 11/29/20 History Ellipta] Patient History Medical History CHF (congestive heart failure) Coronary artery disease Depression Diabetes mellitus, type II Hyperlipidemia Hypertension Morbid obesity FRANCIS (obstructive sleep apnea) Venous insufficiency Surgical History H/O knee surgery Family History Other Throat cancer Social History Smoking Status: Never smoker Hx Alcohol Use: Yes Alcohol type: beer Hx Substance Use: No Preferred Language: [place] Communication Ability: Effective Cook Chill Technician Required: No Beliefs That Will Affect Care: None marital status: Single Current Living Situation: Rehab How many Children do You have: 0 Other Information That Helps Us Care for You: No Feels Safe at Home: Yes Safety Concerns: Feels Safe At This Time Assistive Devices: Oxygen - Continuous Review of Systems Review of Systems: Unobtainable due to cognitive status Physical Exam Constitutional: + morbidly obese Eyes: PERRL, conjunctivae normal, anicteric sclerae ENMT: external ear and nose normal, oropharynx normal Neck: + thick neck Respiratory: Auscultation: + rhonchi (Coarse rhonchi are present right greater than left with poor air movement a) and + wheezes Cardiovascular: Rate/Rhythm: regular rate and regular rhythm Heart Sounds: no murmur Extremities: + edema (1+) Gastrointestinal (Abdomen): Percussion/Palpation: abdomen soft; abdomen nontender Skin: Ruborous changes of both lower extremities consistent with chronic stasis edema Neurologic: PERRL, EOMI, accommodation nl, no face palsy, no dysarthria Psychiatric: Affect: + flat affect Results & Data ([facility]) Vital Signs (Past 12 Hours) Vital Signs Temp Pulse Pulse Resp BP Pulse Ox 11/30/20 07:47 36.6 C 84 22 165/82 H 94 11/30/20 03:16 36.9 C 63 20 168/89 H 99 11/30/20 01:34 63 11/29/20 23:14 36.6 C 71 20 145/77 H 99 11/29/20 22:30 65 19 95 Laboratory Results Laboratory Results - last 24 hr 11/29/20 11/29/20 11/29/20 15:14 15:18 15:23 WBC RBC Hgb Hct MCV MCH MCHC RDW Std Deviation RDW Coeff of Xin Plt Count MPV Immature Gran % (Auto) Neut % (Auto) Lymph % (Auto) [place] % (Auto) Eos % (Auto) Baso % (Auto) Neut # (Auto) Lymph # (Auto) [place] # (Auto) Eos # (Auto) Baso # (Auto) Immature Gran # (Auto) ABG pH ABG pCO2 ABG pO2 ABG HCO3 ABG O2 Saturation ABG Base Excess Mg Test VBG pH 7.44 H VBG pCO2 55 H VBG pO2 32 VBG HCO3 36 VBG O2 Saturation 62.6 VBG Base Excess 9.7 Barometric Pressure 729.0 Oxygen Given Sodium Potassium Chloride Carbon Dioxide Anion Gap BUN Creatinine Est Cr Clr Drug Dosing Est GFR ( Amer) Est GFR (Non-Af Amer) BUN/Creatinine Ratio Glucose POC Glucose Estimat Average Glucose Hemoglobin A1c Lactate Calcium Phosphorus Magnesium Ferritin Total Bilirubin AST ALT Alkaline Phosphatase Troponin I C-Reactive Protein NT-Pro-B Natriuret Pep Total Protein Albumin Globulin Albumin/Globulin Ratio Procalcitonin TSH Urine Color Yellow Urine Appearance Clear Urine pH 5.5 Ur Specific [place] 1.015 Urine Protein 1+ H Urine Glucose (UA) Negative Urine Ketones Negative Urine Blood 2+ H Urine Nitrite Positive A Urine Bilirubin Negative Urine Urobilinogen Negative Ur Leukocyte Esterase 1+ H Urine RBC 5-10 H Urine WBC >30 H Ur Epithelial Cells >30 H Amorphous Sediment Present A Urine Bacteria 1+ H Nasal Screen MRSA (PCR) POC Stool Occult Blood COVID-19 Eval Order Covid19 at [facility] SARS-CoV-2 (PCR) 11/29/20 11/29/20 11/29/20 15:23 16:00 16:15 WBC 9.50 RBC 3.70 L Hgb 10.6 L Hct 33.2 L MCV 89.7 MCH 28.6 MCHC 31.9 L RDW Std Deviation 49.3 H RDW Coeff of Xin 15.3 H Plt Count 190 MPV 8.9 Immature Gran % (Auto) 0.8 Neut % (Auto) 83.3 Lymph % (Auto) 7.6 [place] % (Auto) 8.0 Eos % (Auto) 0.2 Baso % (Auto) 0.1 Neut # (Auto) 7.91 H Lymph # (Auto) 0.72 L [place] # (Auto) 0.76 H Eos # (Auto) 0.02 Baso # (Auto) 0.01 Immature Gran # (Auto) 0.08 H ABG pH ABG pCO2 ABG pO2 ABG HCO3 ABG O2 Saturation ABG Base Excess Mg Test VBG pH VBG pCO2 VBG pO2 VBG HCO3 VBG O2 Saturation VBG Base Excess Barometric Pressure Oxygen Given Sodium Potassium Chloride Carbon Dioxide Anion Gap BUN Creatinine Est Cr Clr Drug Dosing Est GFR ( Amer) Est GFR (Non-Af Amer) BUN/Creatinine Ratio Glucose POC Glucose Estimat Average Glucose Hemoglobin A1c Lactate Calcium Phosphorus Magnesium Ferritin Total Bilirubin AST ALT Alkaline Phosphatase Troponin I C-Reactive Protein NT-Pro-B Natriuret Pep Total Protein Albumin Globulin Albumin/Globulin Ratio Procalcitonin TSH Urine Color Urine Appearance Urine pH Ur Specific [place] Urine Protein Urine Glucose (UA) Urine Ketones Urine Blood Urine Nitrite Urine Bilirubin Urine Urobilinogen Ur Leukocyte Esterase Urine RBC Urine WBC Ur Epithelial Cells Amorphous Sediment Urine Bacteria Nasal Screen MRSA (PCR) POC Stool Occult Blood Positive A COVID-19 Eval Order SARS-CoV-2 (PCR) POSITIVE A* 11/29/20 11/29/20 11/29/20 16:15 17:29 17:29 WBC RBC Hgb Hct MCV MCH MCHC RDW Std Deviation RDW Coeff of Xin Plt Count MPV Immature Gran % (Auto) Neut % (Auto) Lymph % (Auto) [place] % (Auto) Eos % (Auto) Baso % (Auto) Neut # (Auto) Lymph # (Auto) [place] # (Auto) Eos # (Auto) Baso # (Auto) Immature Gran # (Auto) ABG pH ABG pCO2 ABG pO2 ABG HCO3 ABG O2 Saturation ABG Base Excess Mg Test VBG pH VBG pCO2 VBG pO2 VBG HCO3 VBG O2 Saturation VBG Base Excess Barometric Pressure Oxygen Given Sodium 138 Potassium 3.5 Chloride 99 Carbon Dioxide 35 H Anion Gap 4.0 BUN 26 H Creatinine 1.01 Est Cr Clr Drug Dosing 114.7 Est GFR ( Amer) 91.3 Est GFR (Non-Af Amer) 78.8 BUN/Creatinine Ratio 25.5 H Glucose 126 H POC Glucose Estimat Average Glucose Hemoglobin A1c Lactate 1.0 Calcium 9.1 Phosphorus Magnesium 2.2 Ferritin 72.2 Total Bilirubin 0.6 AST 19 ALT 40 Alkaline Phosphatase 139 H Troponin I 0.021 C-Reactive Protein 0.30 H NT-Pro-B Natriuret Pep Total Protein 6.1 L Albumin 3.0 L Globulin 3.1 Albumin/Globulin Ratio 1.0 Procalcitonin TSH 1.950 Urine Color Urine Appearance Urine pH Ur Specific [place] Urine Protein Urine Glucose (UA) Urine Ketones Urine Blood Urine Nitrite Urine Bilirubin Urine Urobilinogen Ur Leukocyte Esterase Urine RBC Urine WBC Ur Epithelial Cells Amorphous Sediment Urine Bacteria Nasal Screen MRSA (PCR) POC Stool Occult Blood COVID-19 Eval Order SARS-CoV-2 (PCR) 11/29/20 11/29/20 11/29/20 17:29 17:29 19:25 WBC RBC Hgb Hct MCV MCH MCHC RDW Std Deviation RDW Coeff of Xin Plt Count MPV Immature Gran % (Auto) Neut % (Auto) Lymph % (Auto) [place] % (Auto) Eos % (Auto) Baso % (Auto) Neut # (Auto) Lymph # (Auto) [place] # (Auto) Eos # (Auto) Baso # (Auto) Immature Gran # (Auto) ABG pH ABG pCO2 ABG pO2 ABG HCO3 ABG O2 Saturation ABG Base Excess Mg Test VBG pH VBG pCO2 VBG pO2 VBG HCO3 VBG O2 Saturation VBG Base Excess Barometric Pressure Oxygen Given Sodium Potassium Chloride Carbon Dioxide Anion Gap BUN Creatinine Est Cr Clr Drug Dosing Est GFR ( Amer) Est GFR (Non-Af Amer) BUN/Creatinine Ratio Glucose POC Glucose Estimat Average Glucose Hemoglobin A1c Lactate Calcium Phosphorus Magnesium Ferritin Total Bilirubin AST ALT Alkaline Phosphatase Troponin I C-Reactive Protein NT-Pro-B Natriuret Pep 2167 H Total Protein Albumin Globulin Albumin/Globulin Ratio Procalcitonin < 0.05 TSH Urine Color Urine Appearance Urine pH Ur Specific [place] Urine Protein Urine Glucose (UA) Urine Ketones Urine Blood Urine Nitrite Urine Bilirubin Urine Urobilinogen Ur Leukocyte Esterase Urine RBC Urine WBC Ur Epithelial Cells Amorphous Sediment Urine Bacteria Nasal Screen MRSA (PCR) Negative POC Stool Occult Blood COVID-19 Eval Order SARS-CoV-2 (PCR) 11/29/20 11/30/20 11/30/20 20:24 00:09 03:18 WBC RBC Hgb Hct MCV MCH MCHC RDW Std Deviation RDW Coeff of Xin Plt Count MPV Immature Gran % (Auto) Neut % (Auto) Lymph % (Auto) [place] % (Auto) Eos % (Auto) Baso % (Auto) Neut # (Auto) Lymph # (Auto) [place] # (Auto) Eos # (Auto) Baso # (Auto) Immature Gran # (Auto) ABG pH ABG pCO2 ABG pO2 ABG HCO3 ABG O2 Saturation ABG Base Excess Mg Test VBG pH VBG pCO2 VBG pO2 VBG HCO3 VBG O2 Saturation VBG Base Excess Barometric Pressure Oxygen Given Sodium Potassium Chloride Carbon Dioxide Anion Gap BUN Creatinine Est Cr Clr Drug Dosing Est GFR ( Amer) Est GFR (Non-Af Amer) BUN/Creatinine Ratio Glucose POC Glucose 156 H 180 H 211 H Estimat Average Glucose Hemoglobin A1c Lactate Calcium Phosphorus Magnesium Ferritin Total Bilirubin AST ALT Alkaline Phosphatase Troponin I C-Reactive Protein NT-Pro-B Natriuret Pep Total Protein Albumin Globulin Albumin/Globulin Ratio Procalcitonin TSH Urine Color Urine Appearance Urine pH Ur Specific [place] Urine Protein Urine Glucose (UA) Urine Ketones Urine Blood Urine Nitrite Urine Bilirubin Urine Urobilinogen Ur Leukocyte Esterase Urine RBC Urine WBC Ur Epithelial Cells Amorphous Sediment Urine Bacteria Nasal Screen MRSA (PCR) POC Stool Occult Blood COVID-19 Eval Order SARS-CoV-2 (PCR) 11/30/20 11/30/20 11/30/20 07:26 07:26 07:26 WBC 7.94 RBC 3.35 L Hgb 10.0 L Hct 30.6 L MCV 91.3 MCH 29.9 MCHC 32.7 RDW Std Deviation 49.5 H RDW Coeff of Xin 15.1 H Plt Count 201 MPV 8.6 Immature Gran % (Auto) Neut % (Auto) Lymph % (Auto) [place] % (Auto) Eos % (Auto) Baso % (Auto) Neut # (Auto) Lymph # (Auto) [place] # (Auto) Eos # (Auto) Baso # (Auto) Immature Gran # (Auto) ABG pH ABG pCO2 ABG pO2 ABG HCO3 ABG O2 Saturation ABG Base Excess Mg Test VBG pH VBG pCO2 VBG pO2 VBG HCO3 VBG O2 Saturation VBG Base Excess Barometric Pressure Oxygen Given Sodium 138 Potassium 3.4 L Chloride 99 Carbon Dioxide 32 Anion Gap 6.0 BUN 26 H Creatinine 1.01 Est Cr Clr Drug Dosing 113.8 Est GFR ( Amer) 91.3 Est GFR (Non-Af Amer) 78.8 BUN/Creatinine Ratio 26.1 H Glucose 178 H POC Glucose Estimat Average Glucose 157 Hemoglobin A1c 7.1 H Lactate Calcium 8.7 Phosphorus 3.4 Magnesium 2.1 Ferritin Total Bilirubin 0.6 AST 12 L ALT 33 Alkaline Phosphatase 134 H Troponin I C-Reactive Protein NT-Pro-B Natriuret Pep Total Protein 5.9 L Albumin 2.7 L Globulin 3.2 Albumin/Globulin Ratio 0.8 L Procalcitonin TSH Urine Color Urine Appearance Urine pH Ur Specific [place] Urine Protein Urine Glucose (UA) Urine Ketones Urine Blood Urine Nitrite Urine Bilirubin Urine Urobilinogen Ur Leukocyte Esterase Urine RBC Urine WBC Ur Epithelial Cells Amorphous Sediment Urine Bacteria Nasal Screen MRSA (PCR) POC Stool Occult Blood COVID-19 Eval Order SARS-CoV-2 (PCR) 11/30/20 11/30/20 11/30/20 07:26 07:36 07:42 WBC RBC Hgb Hct MCV MCH MCHC RDW Std Deviation RDW Coeff of Xin Plt Count MPV Immature Gran % (Auto) Neut % (Auto) Lymph % (Auto) [place] % (Auto) Eos % (Auto) Baso % (Auto) Neut # (Auto) Lymph # (Auto) [place] # (Auto) Eos # (Auto) Baso # (Auto) Immature Gran # (Auto) ABG pH 7.47 H ABG pCO2 45 ABG pO2 94 ABG HCO3 32 H ABG O2 Saturation 97.3 H ABG Base Excess 7.8 H Mg Test Pos VBG pH VBG pCO2 VBG pO2 VBG HCO3 VBG O2 Saturation VBG Base Excess Barometric Pressure 737.0 Oxygen Given 4 L Sodium Potassium Chloride Carbon Dioxide Anion Gap BUN Creatinine Est Cr Clr Drug Dosing Est GFR ( Amer) Est GFR (Non-Af Amer) BUN/Creatinine Ratio Glucose POC Glucose 185 H Estimat Average Glucose Hemoglobin A1c Lactate Calcium Phosphorus Magnesium Ferritin Total Bilirubin AST ALT Alkaline Phosphatase Troponin I C-Reactive Protein NT-Pro-B Natriuret Pep Total Protein Albumin Globulin Albumin/Globulin Ratio Procalcitonin < 0.05 TSH Urine Color Urine Appearance Urine pH Ur Specific [place] Urine Protein Urine Glucose (UA) Urine Ketones Urine Blood Urine Nitrite Urine Bilirubin Urine Urobilinogen Ur Leukocyte Esterase Urine RBC Urine WBC Ur Epithelial Cells Amorphous Sediment Urine Bacteria Nasal Screen MRSA (PCR) POC Stool Occult Blood COVID-19 Eval Order SARS-CoV-2 (PCR) Medications Administered Current Medications Acetaminophen (Acetaminophen 325 Mg Tab) 650 mg PO Q4 PRN PRN Reason: PAIN , SCALE 1-3 Stop: 12/29/20 18:19 Albuterol (Albuterol Hfa 8 Gm Inhaler (Combivent Respimat P&T Subs)) 1 puffs INH QIDR [facility] Stop: 12/29/20 19:59 Last Admin: 11/30/20 10:49 Dose: Not Given Documented by: Amlodipine Besylate (Amlodipine Besylate 5 Mg Tab) 10 mg PO DAILY ZOHAIB Stop: 12/30/20 08:59 Last Admin: 11/30/20 09:06 Dose: 10 mg Documented by: Atorvastatin Calcium (Atorvastatin 40 Mg Tab) 40 mg PO HS [facility] Stop: 12/29/20 20:59 Last Admin: 11/29/20 20:29 Dose: 40 mg Documented by: Bumetanide (Bumetanide 1 Mg Tab) 2 mg PO DAILY [facility] Stop: 12/30/20 08:59 Last Admin: 11/30/20 09:06 Dose: 2 mg Documented by: Carvedilol (Carvedilol 12.5 Mg Tab) 12.5 mg PO BIDM [facility] Stop: 12/30/20 07:59 Last Admin: 11/30/20 09:06 Dose: 12.5 mg Documented by: Dextrose (Dextrose 50% 50 Ml Syringe) 25 - 50 ml IV UD PRN; Protocol PRN Reason: Hypoglycemia Protocol Stop: 12/29/20 19:01 Docusate Sodium (Docusate Sodium 100 Mg Cap) 100 mg PO BID PRN PRN Reason: Constipation Stop: 12/29/20 18:19 Duloxetine HCl (Duloxetine Hcl 60 Mg Cap) 60 mg PO DAILY ZOHAIB Stop: 12/30/20 08:59 Last Admin: 11/30/20 09:06 Dose: 60 mg Documented by: Ferrous Sulfate (Ferrous Sulfate 325 Mg Tab) 325 mg PO BID ZOHAIB Stop: 12/29/20 20:59 Last Admin: 11/30/20 09:06 Dose: 325 mg Documented by: Gabapentin (Gabapentin 300 Mg Cap) 300 mg PO HS [facility] Stop: 12/29/20 20:59 Last Admin: 11/29/20 20:29 Dose: 300 mg Documented by: Glucagon (Glucagon For Inj 1 Mg Vial) 1 mg SQ UD PRN; Protocol PRN Reason: Hypoglycemia Protocol Stop: 12/29/20 19:01 Glucose (Glucose 40% Gel 15 Gm Tube) 15 - 30 gm PO UD PRN; Protocol PRN Reason: Hypoglycemia Protocol Stop: 12/29/20 19:01 Glucose (Glucose 10 Tabs/Tube) 4 - 8 tabs PO UD PRN; Protocol PRN Reason: Hypoglycemia Protocol Stop: 12/29/20 19:01 Heparin Sodium (Beef Lung) (Heparin 10 Unit/Ml 5 Ml Flush) 5 ml FLUSH PRN PRN PRN Reason: Flush Stop: 12/30/20 00:52 Piperacillin Sod/Tazobactam (Sod 4.5 gm/ Dextrose) 120 mls @ 30 mls/hr IV Q8H ZOHAIB; Protocol Stop: 12/06/20 21:59 Last Infusion: 11/30/20 10:21 Dose: Infused Documented by: Insulin Aspart (Insulin Aspart 100 Units/Ml 3 Ml Pen) 0 units SC ACHS ZOHAIB Stop: 12/29/20 20:59 Last Admin: 11/30/20 09:18 Dose: 12 units Documented by: Insulin Glargine (Insulin Glargine Solostar 100 Units/Ml 3 Ml Pen) 25 units SC BID ZOHAIB Stop: 12/30/20 09:14 Last Admin: 11/30/20 09:18 Dose: 25 units Documented by: Ipratropium [place] (Ipratropium Hfa Inhaler (Combivent Respimat P&T Subs)) 1 puffs INH QIDR ZOHAIB Stop: 12/29/20 19:59 Last Admin: 11/30/20 10:49 Dose: Not Given Documented by: Magnesium Hydroxide (Magnesium Hydroxide Susp 30 Ml Udc) 30 ml PO DAILY PRN PRN Reason: Constipation Stop: 12/29/20 18:19 Miscellaneous (Carbohydrates For Hypoglycemia ) 15 - 30 gm PO UD PRN PRN Reason: Hypoglycemia Protocol Stop: 12/29/20 19:01 Miscellaneous Information (Piperacill/Tazobac Consult Active) 1 ea N/A UD PRN PRN Reason: Consult Stop: 12/29/20 16:46 Miscellaneous Information (Pharmacy Glycemic Mgmt Consult) 1 ea N/A UD PRN; Protocol PRN Reason: Consult Stop: 12/29/20 19:08 Montelukast Sodium (Montelukast Sodium 10 Mg Tablet) 10 mg PO HS ZOHAIB Stop: 12/29/20 20:59 Last Admin: 11/29/20 20:30 Dose: 10 mg Documented by: Ondansetron HCl (Ondansetron Inj 2 Mg/Ml 2 Ml Vial) 4 mg IV Q4H PRN PRN Reason: Nausea And Vomiting Stop: 12/29/20 19:01 Pantoprazole Sodium (Pantoprazole 40 Mg Tab) 40 mg PO DAILY ZOHAIB Stop: 12/30/20 08:59 Last Admin: 11/30/20 09:06 Dose: 40 mg Documented by: Polyethylene Glycol (Polyethylene (Miralax) 17 Gm Pack) 17 gm PO DAILY PRN PRN Reason: Constipation Stop: 12/29/20 18:19 Potassium Chloride (Potassium Chloride Crtab 20 Meq Tabcr) 20 meq PO DAILY ZOHAIB Stop: 12/30/20 08:59 Last Admin: 11/30/20 09:05 Dose: 20 meq Documented by: Senna/Docusate Sodium (Docusate Sodium/Senna 50/8.6mg Tab) 1 tab PO QDL PRN PRN Reason: CONSTIPATION Stop: 12/30/20 11:29 Sertraline HCl (Sertraline Hcl 100 Mg Tablet) 100 mg PO DAILY ZOHAIB Stop: 12/30/20 08:59 Last Admin: 11/30/20 09:05 Dose: 100 mg Documented by: Tamsulosin HCl (Tamsulosin Hcl 0.4 Mg Cap) 0.8 mg PO DAILY ZOHAIB Stop: 12/30/20 08:59 Last Admin: 11/30/20 09:07 Dose: 0.8 mg Documented by: Umeclidinium/Vilanterol (Umeclidinium/Vilanterol 62.5/25mcg 7 Puffs/Inhaler) 1 puffs INH DAILY ZOHAIB Stop: 12/30/20 08:59 Last Admin: 11/30/20 09:05 Dose: 1 puffs Documented by: Vitamin D (Cholecalciferol 1,000 Units 25 Mcg Tab) 2,000 units PO DAILY ZOHAIB Stop: 12/30/20 08:59 Last Admin: 11/30/20 09:06 Dose: 2,000 units Documented by:
[2020-11-30] MEDS: Ipratropium HFA Inhaler (Combivent Respimat P&T Subs) INH SCH ×5 (10:48→19:26)
[2020-11-30] MEDS: Albuterol HFA 8 GM Inhaler (Combivent Respimat P&T Subs) INH SCH ×5 (10:48→19:26)
[2020-11-30] MEDS ORDERED: DOCUSATE SODIUM/SENNA 50/8.6MG TAB PO PRN (11:30)
--- NOTE | 2020-11-30 12:26 | Pharmacy Report ---
Pharmacy Glycemic Short Note 2 - Date of Service November 30, 2020 - Glycemic Short BSG Results (Last 24 hours): 11/29/20 11/29/20 11/30/20 16:15 20:24 00:09 Glucose 126 H POC Glucose 156 H 180 H 11/30/20 11/30/20 11/30/20 03:18 07:26 07:42 Glucose 178 H POC Glucose 211 H 185 H 11/30/20 11:39 Glucose POC Glucose 182 H OUTPATIENT ANTIDIABETIC REGIMEN: * LANTUS 20 UNITS BID * NOVOLOG 5 UNITS TIDM * A1C: 7.1% 11/30/20 ASSESSMENT: * Patients' BSGs today thus far [phone] * He did receive one dose of dexamethasone 10mg IV last evening likely contributing to this. Patient appears to be heavily basally controlled at home. While he received a slightly higher Lantus dose last evening and this morning at 25 units, his novolog scale is much tighter than home regimen. Will continue through today, but this will likely need to be loosened tomorrow as steroid effects wear off. * Patient is tolerating a diet PLAN FOR INPATIENT GLYCEMIC CONTROL: * Hold outpatient oral diabetes medications * Basal insulin * Lantus 25 units SQ last night and this morning * 18 or 25 units BID per scale this evening (see MAR for details) * Bolus insulin * NovoLog per scale ACHS or Q6hrs while NPO * Goal Range: Low 110 mg/dL - High 140 mg/dL * Correction Factor: 15 mg/dL/unit * Nutritional / Prandial insulin per carb ratio of 1 unit per 5 grams CHO consumed
--- NOTE | 2020-11-30 12:45 | Hospitalist Progress Note ---
Date of Service November 30, 2020 Assessment & Plan (1) Acute hypoxemic respiratory failure: - Was on bipap currently on 4 L which is his baseline - ABG pH 7.44, CO2 55, po2 32, HCO3 36 - Prednisone 40 mg daily was tapering down, currently on 30 mg daily has been ongoing since he arrived at [facility]. - Pt had COVID swab on October 20, and reswab upon admission to [facility] cannot be found at this time. Nursing to call our team back regarding if find results. - COVID positive on admission, continue isolation precautions (2) Multifocal pneumonia: -Afebrile currently, WBC 9.5 -CXR reviewed 1. Right greater than left bilateral pulmonary opacities suggestive of multifocal pneumonia. 2. Cardiomegaly with pulmonary vascular congestion. 3. Right-sided PICC distal tip noted within the region of the superior cavoatrial junction. - Continue Zosyn, Off Vanco sec to neg MRSA swab - Pt has a PICC line in place however has not recently been on antibiotic. Possibility that he required abx from October hospitalization until while he was in [facility]. Was not on abx while in [facility]. - Continue respiratory support as above (3) COVID-19: - Originally tested positive on October 20 at [facility] - No record of testing negative in between these two hospitalizations, however the facility reports that they do not accept COVID + patients from outside facilities, but nursing is "unable to comment". (4) CHF (congestive heart failure): - Takes Bumex 2 mg daily, received dose of 1 mg IV in the ER - Chronic mccormack in place, follow strict I/Os, daily weights - EF preserved per last ECHO on outpatient note review, recheck 2D echo. - Cardiology on case (5) Hypertension: - Continue antihypertensives, BP elevated at 162/86 (6) Hyperlipidemia: -Continue statin therapy (7) Morbid obesity: - morbidly obese with BMI of 43.9 (8) Depression: -Continue antidepressant medication (9) Coronary artery disease: -History of such, continue statin, ARB, beta-iglesia (10) Anemia: -Patient was previously scoped during his hospital stay at [facility] due to significant anemia with hemoglobin of 7.7, he required a transfusion at that point in time. His hemoglobin today is 10.6 on admission. Has been testing positive with occult blood at [facility] however no obvious bright red blood per rectum, hematemesis, black tarry stools. (11) CKD (chronic kidney disease) stage 3, GFR 30-59 ml/min: -History of such, creatinine baseline of 1. 2, currently 1.01 (12) Diabetes mellitus, type II: -Continue Lantus 20 units twice daily, NovoLog 5 units TID with meals. Will order sliding scale insulin. Lantus was recently increased because of his prednisone dosing at [facility]. -Glycemic pharmacy consulted for assistance Continue PPI for GI prophylaxis DVT ppx: - teds, scds CODE: Full code Dispo: From home, likely to remain in the hospital x 1-2 days Labs Checked ROS-No Headache, No Visual Changes, No Nausea, No Vomiting, No Fever, No Chills, No Neck Pain or Stiffness, No Chest Pain, No Palpitations, + SOB, + BARR, No Cough, No Sputum, No Wheezing, No Abdominal Pain, No Diarrhea, No Hematemesis, No Hemoptysis, No Unexpected Weight Loss, No Flank pain, No Melena, No Hematochezia, No Frequency, No Urgency, No Burning, No Hematuria, No Rashes, No Diaphoresis. Appetite is Normal Physical Exam Gen-AAO x 3, NAD,, On 4 L O2 Afebrile, Obese Head-NCAT, EOMI, PERRLA, Anicteric Sclera, No Posterior Pharyngeal Erythema Neck-Supple, No JVD, No Thyromegaly, No Masses, No LAD, No Bruits Lungs-Clear to Auscultation Bilaterally, No Rales, No Rhonchi, No Wheezing, No Crepitus Chest-No S4, +S1, +S2, No S3, No Murmurs, No Rubs, No Gallops, No Ectopy Abdomen-Soft, Bowel Sounds Present, Non Tender, Non Distended, No Hepatomegaly, No Splenomegaly, No Palpable Masses, No Rebound, No Rigidity, No Guarding Musculoskeletal-Full Range of Motion Bilaterally, No CVAT Extremities-No Cyanosis, No Clubbing, No Edema Nuero-Cranial Nerves II-XII grossly intact, Motor WNL, DTRs WNL, Strength WNL, Non Focal Psych-Normal Mood Admission and Anticipated Discharge Date Admission Date: November 29, 2020 Results & Data Results & Data ([facility]) Vital Signs (Past 12 Hours) Vital Signs Temp Pulse Pulse Resp BP Pulse Ox 11/30/20 11:44 36.4 C L 84 22 159/81 H 93 11/30/20 10:52 74 22 92 11/30/20 08:00 61 11/30/20 07:47 36.6 C 84 22 165/82 H 94 11/30/20 03:16 36.9 C 63 20 168/89 H 99 11/30/20 01:34 63 (1) CHF (congestive heart failure) Heart failure chronicity: acute on chronic Heart failure type: unspecified Qualified Code(s): I50.9 - Heart failure, unspecified
[2020-11-30] MEDS ORDERED: VANCOMYCIN TROUGH ONE (18:30)
[2020-11-30] MEDS: ATORVASTATIN 40 MG TAB PO SCH (20:28)
[2020-11-30] MEDS: MONTELUKAST SODIUM 10 MG TABLET PO SCH (20:28)
[2020-11-30] MEDS: GABAPENTIN 300 MG CAP PO SCH (20:28)
--- NOTE | 2020-11-30 21:35 | CT Scan Report ---
CT chest diagnostic wo con CLINICAL HISTORY: abnormal CXR COMPARISON STUDY: No previous studies for comparison. CT DOSE: 1047.28 mGy.cm TECHNIQUE: CT of the thorax was performed from the thoracic inlet to the lung bases. Images are revi ewed in the axial, sagittal, and coronal planes. IV contrast was not administered for this examinatio n. A dose lowering technique was utilized adhering to the principles of ALARA. FINDINGS: Limited evaluation due to beam hardening artifact from patient's body habitus. There is no axillary, supra clavicle or internal mammary lymphadenopathy. Mediastinal lymph nodes are not enlarged. Thyroid: Imaged portions of the thyroid gland are normal in appearance. Small fat-containing hiatal h ernia is seen. Thoracic aorta: The thoracic aorta is normal in course and caliber, noting standard 3 vessel arch melvin chitra. Main pulmonary artery is slightly dilated which might be seen in pulmonary hypertension. Aortic wall calcifications are seen. Heart: Four-chamber cardiomegaly seen without evidence of the pericardial effusion. Moderate coronary calcifications are seen. Lungs and pleural spaces: Tracheobronchial tree is patent. Patchy areas of groundglass attenuation associated with septal thickening is seen bilaterally predomi nantly in peribronchovascular and peripheral distribution. Associated peribronchovascular consolidati on is seen throughout bilateral lungs, right lung affected more severely than left and associated wit h volume loss. Evaluation of pulmonary parenchyma is slightly limited due to motion artifact. Small p leural effusion is seen on the right. Upper abdomen: Limited evaluation of upper abdominal viscera shows no evidence of acute abnormalitie s. Skeletal structures: Multilevel degenerative changes of the spine. IMPRESSION: 1. Multifocal opacities involving bilateral lungs and associated with volume loss on the right might represent infectious/inflammatory process. Please correlate above-mentioned findings with clinical p resentation of pneumonia. Short-term follow-up in 4-6 weeks is recommended to document improvement/re solution. 2. Trace right pleural effusion. 3. Four-chamber cardiomegaly. Mildly dilated pulmonary artery which could be seen in pulmonary hyper tension. 4. Small fat-containing hiatal hernia. 5. Atherosclerosis. ACT 112: Positive. There are findings on this exam that require communication between the performing entity and the patient following Patient Test Result Information Act ([place] Act 112) guidelines. The above report was generated using voice recognition software. It may contain grammatical, syntax o r spelling errors. Electronically signed by: Siomara Ford DO 11/30/2020 9:34 PM
[2020-12-01] MEDS: PIPERACILLIN/TAZOBACTAM 4.5 GM in DEXTROSE 5% 100 ML IV SCH ×2 (05:39→14:33)
[2020-12-01 06:49] LABS: Hematocrit (blood only) 30.4 % (42-52); Hemoglobin 9.7 g/dL (14.0-18.0); Mean Corpuscular Hemoglobin 28.9 pg (25-34); Mean Corpuscular Hgb Conc 31.9 g/dL (32-36); Mean Corpuscular Volume 90.5 fL (80-100); Mean Platelet Volume 8.4 fL (7.4-10.4); Platelet Count 182 K/uL (130-400); RDW Coefficient of Variation 15.7 % (11.5-14.5); RDW Standard Deviation 51.1 fL (36.4-46.3); Red Blood Count 3.36 M/uL (4.7-6.1); White Blood Count 9.12 K/uL (4.8-10.8)
[2020-12-01 07:19] LABS: Albumin Level 2.6 gm/dl (3.4-5.0); BUN Creatinine Ratio 22.1 (10-20); Calcium 9.1 mg/dl (8.5-10.1); Creatinine Clr Calc Pharmacy 88.5 ml/min; Est GFR (African American) 67.3 ml/min; Est GFR (Non-African American) 58.1 ml/min
[2020-12-01 07:22] LABS: Albumin Globulin Ratio 0.9 (0.9-2); Bilirubin,Total 0.5 mg/dl (0.2-1); Globulin 2.8 gm/dl (2.5-4.0); Total Protein 5.4 gm/dl (6.4-8.2)
[2020-12-01] MEDS: Albuterol HFA 8 GM Inhaler (Combivent Respimat P&T Subs) INH SCH ×3 (07:41→15:10)
[2020-12-01] MEDS: Ipratropium HFA Inhaler (Combivent Respimat P&T Subs) INH SCH ×3 (07:42→15:11)
[2020-12-01] MEDS: POTASSIUM CHLORIDE CRTAB 20 MEQ TABCR PO SCH (08:01)
[2020-12-01] MEDS: PANTOprazole 40 MG TAB PO SCH (08:01)
[2020-12-01] MEDS: FERROUS SULFATE 325 MG TAB PO SCH (08:01)
[2020-12-01] MEDS: TAMSULOSIN HCL 0.4 MG CAP PO SCH (08:01)
[2020-12-01] MEDS: carvediloL 12.5 MG TAB PO SCH (08:01)
[2020-12-01] MEDS: amLODIPine BESYLATE 5 MG TAB PO SCH (08:01)
[2020-12-01] MEDS: SERTRALINE HCL 100 MG TABLET PO SCH (08:01)
[2020-12-01] MEDS: CHOLECALCIFEROL 1,000 UNITS 25 MCG TAB PO SCH (08:01)
[2020-12-01] MEDS: BUMETANIDE 1 MG TAB PO SCH (08:01)
[2020-12-01] MEDS: DULoxetine HCL 60 MG CAP PO SCH (08:01)
[2020-12-01] MEDS: UMECLIDINIUM/VILANTEROL 62.5/25MCG 7 PUFFS/INHALER INH SCH (08:02)
[2020-12-01] MEDS: INSULIN ASPART 100 UNITS/ML 3 ML PEN SC SCH ×2 (08:05→12:25)
[2020-12-01] MEDS ORDERED: INSULIN GLARGINE SOLOSTAR 100 UNITS/ML 3 ML PEN SC SCH (09:00)
--- NOTE | 2020-12-01 09:06 | Discharge Summary ---
Date of Service December 01, 2020 Admission HPI Per Admitting Provider Discussed with nursing at [facility] as pt was unable to give history while on Bipap. Please refer to attending documentation as I did not see the patient in person due to being COVID-19 positive on admission. This is a 65 yo M with PMHx of venous insufficiency, DM II, CKD III, CAD, HLD, COPD, FRANCIS intolerant to CPAP, morbid obesity with BMI of 43.9, CHF with preserved EF who presents from [facility] for syncopal episode and hypoxia. Pt was getting up with Raudel lift from bed to participate with therapy, pt reported feeling like he needed to have a BM and was gotten on the bedside commode. He hand had a moment of syncope, galvan color, no response to sternal rub, but never lost a pulse. He did come back to verbal stimuli within a few minutes. Glucose was 143. VSS aside from O2 sats at 82% on 4L. Placed on nonrebreather and came up to 87%. Pt was clammy and was sent via EMS to [facility]. Recently, the patient has been hospitalized primarily at [facility] for acute respiratory failure due to COVID+ and CHF. Pt was admitted at [place] from 10/12 -10/19 for decompensated CHF. Discharged on Bumex. Pt returned to the [place] ER on 10/22 at [facility] and tested postive for COVID. BNP was 34,000 at that time. He was again treated with bumex. Pt was treated with remdesivir, decadron, actemara for COVID. R> L infiltrates, vapotherm and bipap HS. He also suffered acute renal failure. At that time he had upper GI/lower GI scopes due to significant anemia with hgb 7.7, baseline hgb of 9.6, and but scopes were negative. He required transfusion. Pt was stable and discharged to [facility] for placement. Pt was admitted to [facility] on 11/22 from [facility]. He was admitted there on on prednisone taper, currently on 30 mg daily. Per nursing, the facilty does not accept COVID positive patients, however they are unable to find formal documentation of negative status upon leaving [facility] and coming to their facility. They will look for this and call back our team if results are found. Pt has been placed on bipap in the ER at 15 L with sats of 98%. Admission Exam Per Admitting Provider Physical Exam: GENERAL: Ill in appearance, nonrebreather in place. EYE EXAM: Normal conjunctiva. PERRL, no anisocoria and EOM's grossly intact w/o pain. NECK: Supple, no nuchal rigidity, no adenopathy, non-tender. No signs of meningismus. LUNGS: Crackles throughout. HEART: NSR, no MRG. ABDOMEN: Abdomen soft, non-tender, normo-active bowel sounds, no masses, no rebound or guarding. BACK: No CVA TTP. SKIN: No rashes and no bruising. UPPER EXTREMITIES: Upper extremities are grossly normal. Right upper extremity PICC line in place. LOWER EXTREMITIES: Grossly normal, no edema. NEURO EXAM: A&O x3, cranial nerves II-XII grossly intact, normal speech, moves all 4 extremities on command w/o issue. Principal Diagnosis (1) Acute hypoxemic respiratory failure: (2) Multifocal pneumonia: (3) COVID-19: (4) CHF (congestive heart failure): (5) Hypertension: (6) Hyperlipidemia: (7) Morbid obesity: (8) Depression: (9) Coronary artery disease: (10) Anemia: (11) CKD (chronic kidney disease) stage 3, GFR 30-59 ml/min: (12) Diabetes mellitus, type II: Discharge Data Allergies Allergy/AdvReac Type Severity Reaction Status Date / Time No Known Allergies Allergy Verified 11/29/20 14:51 Consultations 11/29/20 16:48 ED Decision to Admit Stat 11/29/20 19:02 Consult Cardiology Routine 11/30/20 03:01 Consult Pulmonology Routine Ordered Studies 11/29/20 14:18 CT head/brain wo con Stat 11/30/20 17:57 CT chest diagnostic wo con Routine Current Diagnoses Anemia, unspecified (11/29/20) Type 2 diabetes mellitus without complications (11/29/20) Morbid (severe) obesity due to excess calories (11/29/20) Hyperlipidemia, unspecified (11/29/20) Major depressive disorder, single episode, unspecified (11/29/20) Obstructive sleep apnea (adult) (pediatric) (11/29/20) Essential (primary) hypertension (11/29/20) Atherosclerotic heart disease of [place] coronary artery without angina pectoris (11/29/20) Chronic diastolic (congestive) heart failure (11/29/20) Heart failure, unspecified (11/29/20) Pneumonia, unspecified organism (11/29/20) Chronic obstructive pulmonary disease, unspecified (11/29/20) Acute respiratory failure with hypoxia (11/29/20) Acute and chronic respiratory failure with hypoxia (11/29/20) Chronic kidney disease, stage 3 (moderate) (11/29/20) COVID-19 (11/29/20) Allergies No Known Allergies Allergy (Verified 11/29/20 14:51) Height/Weight/Isolation Height 6 ft 1 in Weight 149 kg Chemistry 11/29/20 11/30/20 12/01/20 16:15 07:26 06:32 Sodium 138 138 140 Potassium 3.5 3.4 L 3.0 L Chloride 99 99 102 Carbon Dioxide 35 H 32 35 H Anion Gap 4.0 6.0 3.0 BUN 26 H 26 H 29 H Creatinine 1.01 1.01 1.30 Glucose 126 H 178 H 76 Urinalysis 11/29/20 15:14 Urine Color Yellow Urine Appearance Clear Urine pH 5.5 Ur Specific [place] 1.015 Urine Protein 1+ H Urine Glucose (UA) Negative Urine Ketones Negative Urine Blood 2+ H Urine Nitrite Positive A Urine Bilirubin Negative Microbiology 11/29/20 17:22 Blood Aerobic Blood Culture - Preliminary No growth in Aerobic bottle after 24 hours. 11/29/20 17:22 Blood Anaerobic Blood Culture - Final 11/29/20 17:21 Blood Aerobic Blood Culture - Preliminary No growth in Aerobic bottle after 24 hours. 11/29/20 17:21 Blood Anaerobic Blood Culture - Preliminary No growth in Anaerobic bottle after 24 hours. 11/29/20 15:14 Urine,Clean Catch Urine Culture - Preliminary Pin-point growth present, reincubating. Hospital Course (1) Acute hypoxemic respiratory failure: - Was on bipap currently on 4 L which is his baseline - ABG pH 7.44, CO2 55, po2 32, HCO3 36 - Prednisone 40 mg daily was tapering down, currently on 30 mg daily has been ongoing since he arrived at [facility]. - Pt had COVID swab on October 20, and reswab upon admission to [facility] cannot be found at this time. Nursing to call our team back regarding if find results. - COVID positive on admission, out of isolation precautions (2) Multifocal pneumonia: -Afebrile currently, WBC 9.5 -CXR reviewed 1. Right greater than left bilateral pulmonary opacities suggestive of multifocal pneumonia. 2. Cardiomegaly with pulmonary vascular congestion. 3. Right-sided PICC distal tip noted within the region of the superior cavoatrial junction. - DC Zosyn, Off Vanco sec to neg MRSA swab - Pt has a PICC line in place will dc Was not on abx while in [facility]. - Continue respiratory support as above (3) COVID-19: - Originally tested positive on October 20 at [facility] (4) CHF (congestive heart failure): - Takes Bumex 2 mg daily - Chronic mccormack in place, follow strict I/Os, daily weights - EF preserved per last ECHO on outpatient note review, recheck 2D echo. - Cardiology on case (5) Hypertension: - Continue antihypertensives, BP elevated at 162/86 (6) Hyperlipidemia: -Continue statin therapy (7) Morbid obesity: - morbidly obese with BMI of 43.9 (8) Depression: -Continue antidepressant medication (9) Coronary artery disease: -History of such, continue statin, ARB, beta-iglesia (10) Anemia: -Patient was previously scoped during his hospital stay at [facility] due to significant anemia with hemoglobin of 7.7, he required a transfusion at that point in time. His hemoglobin today is 10.6 on admission. Has been testing positive with occult blood at [facility] however no obvious bright red blood per rectum, hematemesis, black tarry stools. (11) CKD (chronic kidney disease) stage 3, GFR 30-59 ml/min: -History of such, creatinine baseline of 1. 2, currently 1.01 (12) Diabetes mellitus, type II: -Continue Lantus 20 units twice daily, NovoLog 5 units TID with meals. Will order sliding scale insulin. Lantus was recently increased because of his prednisone dosing at [facility]. -Glycemic pharmacy consulted for assistance Continue PPI for GI prophylaxis DVT ppx: - teds, scds CODE: Full code Dispo: Transfer to [facility] Labs Checked ROS-No Headache, No Visual Changes, No Nausea, No Vomiting, No Fever, No Chills, No Neck Pain or Stiffness, No Chest Pain, No Palpitations, No SOB, No BARR, No Cough, No Sputum, No Wheezing, No Abdominal Pain, No Diarrhea, No Hematemesis, No Hemoptysis, No Unexpected Weight Loss, No Flank pain, No Melena, No Hematochezia, No Frequency, No Urgency, No Burning, No Hematuria, No Rashes, No Diaphoresis. Appetite is Normal Physical Exam Gen-AAO x 3, NAD, On 4 L O2 Afebrile, Obese Head-NCAT, EOMI, PERRLA, Anicteric Sclera, No Posterior Pharyngeal Erythema Neck-Supple, No JVD, No Thyromegaly, No Masses, No LAD, No Bruits Lungs-Clear to Auscultation Bilaterally, No Rales, No Rhonchi, No Wheezing, No Crepitus Chest-No S4, +S1, +S2, No S3, No Murmurs, No Rubs, No Gallops, No Ectopy Abdomen-Soft, Bowel Sounds Present, Non Tender, Non Distended, No Hepatomegaly, No Splenomegaly, No Palpable Masses, No Rebound, No Rigidity, No Guarding Musculoskeletal-Full Range of Motion Bilaterally, No CVAT Extremities-No Cyanosis, No Clubbing, No Edema Nuero-Cranial Nerves II-XII grossly intact, Motor WNL, DTRs WNL, Strength WNL, Non Focal Psych-Normal Mood Total Time Total Time Spent Total Time Spent (In Minutes): 45 min Total Time Includes: Examination of the Patient, Discharge Planning, Medication Reconciliation and Communication With Other Providers Discharge Plan Discharge Items Patient Disposition: Transfer Inpatient Rehab Fac Reason For Visit: SYNCOPAL EPISODE, HYPOXIA, +COVID Discharge Diagnosis: (1) Acute hypoxemic respiratory failure: (2) Multifocal pneumonia: (3) COVID-19: (4) CHF (congestive heart failure): (5) Hypertension: (6) Hyperlipidemia: (7) Morbid obesity: (8) Depression: (9) Coronary artery disease: (10) Anemia: (11) CKD (chronic kidney disease) stage 3, GFR 30-59 ml/min: (12) Diabetes mellitus, type II: Condition on Discharge: Fair Activity: Resume your previous activity Lifting: Gradually increase as tolerated Bathing: No limitations Exercise/Sports: Gradually increase as tolerated Driving/Machine Use: No limitations Weightbearing: Full weightbearing Non-emergency contact: Primary Care Provider Call non-emergency contact if: you have any medication questions Follow-up/Referrals: [facility] [Primary Care Provider] - Diet: Carb Consistent or DM2 and Heart Healthy Fluids: 1500ml (6 cups) Addtl Attending Provider Instructions: None Pending Studies at Discharge: No Stand-Alone Forms: My [facility] Skilled Items Patient informed of condition?: Yes DNR: No Discharge Level of Care: Acute rehab Communicable Disease: No Discharge Prognosis: Improving Lines: None Urinary Catheter: No Medications and DC Order Prescriptions: Continued atorvastatin 40 mg Tablet 40 mg PO HS RF: 0 carvedilol 12.5 mg Tablet 12.5 mg PO BIDM RF: 0 sertraline 100 mg Tablet 100 mg PO DAILY RF: 0 tamsulosin 0.4 mg Capsule 0.8 mg PO DAILY RF: 0 pantoprazole [Protonix] 40 mg Tablet,Delayed Release (Dr/Ec) 40 mg PO DAILY RF: 0 ferrous sulfate 325 mg (65 mg iron) Tablet 325 mg PO BID RF: 0 montelukast [Singulair] 10 mg Tablet 10 mg PO HS RF: 0 duloxetine 30 mg Capsule,Delayed Release(Dr/Ec) 60 mg PO DAILY RF: 0 cholecalciferol (vitamin D3) [Vitamin D3] 50 mcg (2,000 unit) Capsule 50 mcg PO DAILY RF: 0 acetaminophen [Tylenol] 325 mg Tablet 650 mg PO Q4 PRN (Reason: PAIN , SCALE 1-3) RF: 0 polyethylene glycol 3350 [Miralax] 17 gram Powder In Packet 17 g PO DAILY PRN (Reason: Constipation) RF: 0 sennosides-docusate sodium [Senokot-S] 8.6-50 mg Tablet 1 tab-cap PO .QLUNCH PRN RF: 0 magnesium hydroxide [Milk of Magnesia] 400 mg/5 mL Suspension 30 ml PO DAILY PRN (Reason: Constipation) RF: 0 docusate sodium 100 mg Capsule 100 mg PO BID PRN (Reason: Constipation) RF: 0 ipratropium-albuterol 20-100 mcg/actuation Mist 1 puff INHALATION QID RF: 0 bumetanide [Bumex] 2 mg Tablet 2 mg PO DAILY RF: 0 insulin aspart U-100 [Novolog U-100 Insulin aspart] 100 unit/mL Solution 5 unit SUBCUT TIDM RF: 0 prednisone 10 mg Tablet 30 mg PO DAILY RF: 0 Lantus U-100 Insulin 100 unit/mL Cartridge 20 unit SUBCUT BID RF: 0 amlodipine 10 mg Tablet 10 mg PO DAILY RF: 0 potassium chloride 20 mEq Tablet Extended Release 20 meq PO DAILY RF: 0 gabapentin 300 mg Capsule 300 mg PO HS RF: 0 Anoro Ellipta 62.5-25 mcg/actuation Blister With Device 1 inh INHALATION DAILY RF: 0 Discharge Orders: Discharge Order (Routine); Ordered 12/01/20 Ordered By: Ori Jang/Other Patient Handouts: Managing Type 2 Diabetes, A1C Admission Data Admit Date/Time: 11/29/20 17:11 Attending Provider: Ori Teague Admit Provider: Jill Coleman Primary Care Provider: [facility] Other Providers: Mikki Irwin ; Anne Abraham ; Valeriano Adler
--- NOTE | 2020-12-01 10:28 | Cardiology Progress Note ---
Date of Service December 01, 2020 Assessment & Plan (1) Acute on chronic respiratory failure with hypoxemia: Patient is a complex 65-year-old male with a history and medical issues as outlined. Recent hospitalization with multifocal pneumonia and diastolic heart failure Covid related. 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 Patient high risk for further deterioration Encouraged aggressive pulmonary toilet Would recommend addition of spironolactone 12.5 mg p.o. daily to regimen. Low threshold for adding losartan for hypertension (2) Multifocal pneumonia: (3) Chronic diastolic heart failure: (4) Morbid obesity: (5) COVID-19: Admission and Anticipated Discharge Date Admission Date: November 29, 2020 Subjective Patient was seen and examined, chart, medications, telemetry reviewed. Slowly improving since admission. Less oxygen demands. No chest pains or discomfort still with loose rhonchorous cough. Physical Exam Constitutional: + morbidly obese Eyes: PERRL, conjunctivae normal, anicteric sclerae ENMT: external ear and nose normal, oropharynx normal Neck: + thick neck Respiratory: Auscultation: + rhonchi (Coarse rhonchi are present right greater than left with poor air movement a) and + wheezes Cardiovascular: Rate/Rhythm: regular rate and regular rhythm Heart Sounds: no murmur Extremities: + edema (1+) Gastrointestinal (Abdomen): Percussion/Palpation: abdomen soft; abdomen nontender Neurologic: PERRL, EOMI, accommodation nl, no face palsy, no dysarthria Psychiatric: Affect: + flat affect Results & Data ([facility]) Vital Signs (Past 12 Hours) Vital Signs Temp Pulse Pulse Resp BP Pulse Ox 12/01/20 07:43 36.4 C L 63 18 169/89 H 92 12/01/20 07:42 71 20 93 12/01/20 03:49 36.6 C 66 18 154/70 H 94 12/01/20 00:20 58 L 11/30/20 23:32 36.6 C 62 18 142/75 H 92 Laboratory Results Laboratory Results - last 24 hr 11/30/20 11/30/20 11/30/20 11:39 16:39 20:21 WBC RBC Hgb Hct MCV MCH MCHC RDW Std Deviation RDW Coeff of Xin Plt Count MPV Sodium Potassium Chloride Carbon Dioxide Anion Gap BUN Creatinine Est Cr Clr Drug Dosing Est GFR ( Amer) Est GFR (Non-Af Amer) BUN/Creatinine Ratio Glucose POC Glucose 182 H 82 81 Calcium Total Bilirubin AST ALT Alkaline Phosphatase Total Protein Albumin Globulin Albumin/Globulin Ratio 12/01/20 12/01/20 12/01/20 06:30 06:32 08:03 WBC 9.12 RBC 3.36 L Hgb 9.7 L Hct 30.4 L MCV 90.5 MCH 28.9 MCHC 31.9 L RDW Std Deviation 51.1 H RDW Coeff of Xin 15.7 H Plt Count 182 MPV 8.4 Sodium 140 Potassium 3.0 L Chloride 102 Carbon Dioxide 35 H Anion Gap 3.0 BUN 29 H Creatinine 1.30 Est Cr Clr Drug Dosing 88.5 Est GFR ( Amer) 67.3 Est GFR (Non-Af Amer) 58.1 BUN/Creatinine Ratio 22.1 H Glucose 76 POC Glucose 87 Calcium 9.1 Total Bilirubin 0.5 AST 10 L ALT 31 Alkaline Phosphatase 115 Total Protein 5.4 L Albumin 2.6 L Globulin 2.8 Albumin/Globulin Ratio 0.9
[2020-12-01] MEDS ORDERED: POTASSIUM CHLORIDE CRTAB 20 MEQ TABCR PO STA (10:43)
--- NOTE | 2020-12-01 13:17 | Pulmonology Progress Note ---
Date of Service December 01, 2020 Assessment & Plan (1) Acute on chronic respiratory failure with hypoxemia: CT chest 11/30/2020 personally reviewed: Volume loss on the right side. Diffuse infiltrate appreciated bilaterally. More consolidative/fibrotic changes on the right side. Groundglass opacities in the left upper lobe No mediastinal adenopathy Chest x-ray 11/27/2020 personally reviewed: Portable film, poor inspiratory effort, diffuse alveolar opacities appreciated bilaterally, there is volume loss on the right side. AB.47/45/94 on 4 L --Acute on chronic hypoxic respiratory failure Multifactorial Patient has HFpEF with presentation being 2167 Patient recently had COVID-19 pneumonia and the chest x-ray shows multifocal opacities COVID-19 positive 10/22/20. Retested on admission and positive 11/29/20, CRP 0.3, procalcitonin less than 0.05 Nasal MRSA negative Patient had completed course of dexamethasone, remdesivir and he got tocilizumab approximately a month ago --COPD Continue with Anoro Duo nebs as needed shortness of breath --FRANCIS Recommend BiPAP nightly and as needed for shortness of breath Plan: Patient will benefit from outpatient pulmonary consultation. Pulmonary rehab will also be beneficial Recommend repeating CT chest in approximately 3 months. Continue with aggressive incentive spirometry and flutter valve along with mucolytic BiPAP nightly and as needed shortness of breath O2 supplementation to keep oxygen saturation between 88-92% Patient was saturating 94-95% on 2 L nasal cannula. Recommend to go down in the lower 1 L as it is better for the patient to be around 88-92% The infiltrative changes on the CAT scan are likely respond to COVID-19 pneumonia. I doubt there is bacterial infection given the procalcitonin was negative. Can de-escalate antibiotic. No further recommendation from pulmonary perspective. Please call directly with any questions. Please note the above document was generated using voice recognition software. It may contain grammatical, syntax or spelling errors.Any formal questions or concerns about the content, text or information contained within the body of this dictation should be directly addressed to the provider for clarification. (2) Multifocal pneumonia: (3) FRANCIS (obstructive sleep apnea): (4) COVID-19: (5) COPD (chronic obstructive pulmonary disease): Admission and Anticipated Discharge Date Admission Date: November 29, 2020 Subjective Patient seen and examined at bedside. No acute distress, normal symptoms overnight. Patient said he is feeling better compared to the time of presentation. Denies any chest pain, no headache, no nausea, no vomiting. Fair appetite. Patient saturating 93-94% on 2 L nasal cannula. Review of Systems Review of Systems: All systems reviewed & are unremarkable except as noted in Subjective Physical Exam Physical Exam: Constitutional: No acute distress HEENT: EOMI, PERRLA Respiratory system: Decreased air entry bilaterally, more decreased on the right side, no wheeze, no lower, positive crackles bilateral lower lobes CVS: S1-S2 positive, no murmurs or gallops, distant heart sounds Abdomen: Soft, nontender, nondistended, positive bowel sounds x4, obese Extremities: +2 pulses bilaterally radialis/ dorsalis pedis, no cyanosis, no edema, chronic stasis dermatitis appreciated bilaterally Neuro: Awake alert oriented x3 Psych: Normal mood and affect G/U: Positive Gamez Skin: no rashes, warm and dry Lymphatic: no cervical or axillary lymphadenopathy Results & Data Results & Data ([facility]) Vital Signs (Past 12 Hours) Vital Signs Temp Pulse Resp BP Pulse Ox 12/01/20 11:33 36.5 C 62 20 123/67 96 12/01/20 11:22 62 18 96 12/01/20 07:43 36.4 C L 63 18 169/89 H 92 12/01/20 07:42 71 20 93 12/01/20 03:49 36.6 C 66 18 154/70 H 94 12/01/20 06:30 12/01/20 06:32 PG Care Time/CCT Total # of Minutes Spent Total Time Spent with Patient: Total time spent is greater than 50% in coordination of care (as documented) at patient's floor/unit and/or counseling patient: Coding Level of Care Code 31228 Subseq Hosp Care Lvl 3 Diagnoses Acute on chronic respiratory failure with hypoxemia J96.21 Multifocal pneumonia J18.9 FRANCIS (obstructive sleep apnea) G47.33 COVID-19 U07.1 COPD (chronic obstructive pulmonary disease) J44.9
--- NOTE | 2020-12-01 15:07 | Pharmacy Report ---
Pharmacy Glycemic Short Note 2 - Date of Service December 01, 2020 - Glycemic Short BSG Results (Last 24 hours): 11/30/20 11/30/20 12/01/20 16:39 20:21 06:32 Glucose 76 POC Glucose 82 81 12/01/20 12/01/20 08:03 11:07 Glucose POC Glucose 87 122 H OUTPATIENT ANTIDIABETIC REGIMEN: * LANTUS 20 UNITS BID * NOVOLOG 5 UNITS TIDM * A1C: 7.1% 11/30/20 ASSESSMENT: 12/01: * Patient received total of 69 units of insulin yesterday: 43 units of basal and 26 units bolus. * Fasting BSG today was 76 mg/dl. The Decadron IV dose from 2 days ago would have worn off by now, so basal insulin dose reduced today. * Post-prandial BSGs were in the 80s yesterday. Novolog parameters were loosened today. 11/30: * Patients' BSGs today thus far [phone] * He did receive one dose of dexamethasone 10mg IV last evening likely contributing to this. Patient appears to be heavily basally controlled at home. While he received a slightly higher Lantus dose last evening and this morning at 25 units, his novolog scale is much tighter than home regimen. Will continue through today, but this will likely need to be loosened tomorrow as steroid effects wear off. * Patient is tolerating a diet PLAN FOR INPATIENT GLYCEMIC CONTROL: * Basal insulin: decreased * Lantus 15 units BID * Bolus insulin: loosened CF/CR * NovoLog per scale ACHS or Q6hrs while NPO * Goal Range: Low 110 mg/dL - High 140 mg/dL * Correction Factor: 20 mg/dL/unit * Nutritional / Prandial insulin per carb ratio of 1 unit per 10 grams CHO consumed
== END 2020-12-01 17:40 | DRG 189 ==
LOC: ED 13:14 → SUATTDRO 17:11 → 2S 17:11

== ENCOUNTER 2020-12-08 11:11 | Inpatient (IN) ==
--- NOTE | 2020-12-08 12:04 | XRay Report ---
XR chest 1V portable CLINICAL HISTORY: Shortness of breath COMPARISON STUDY: 11/30/2020 FINDINGS: The heart remains enlarged. There is mild right lung volume loss. There are persistent bila teral pulmonary airspace opacities right greater than left. There is suspected mild improvement hussain red the prior study. There is no change in the position of the right-sided PICC catheter. There is mi ld blunting of the lateral costophrenic angles. No large effusions are visualized.[ IMPRESSION: Persistent bilateral pulmonary airspace opacities right greater than left with suspected mild improvement when compared the prior study ACT 112: Negative or not required by law. Electronically signed by: Kb Lee M.D. 12/08/2020 12:03 PM
[2020-12-08 12:05] LABS: Basophils # (auto) 0.01 K/uL (0-0.2); Basophils % (auto) 0.1 %; Eosinophils # (auto) 0.08 K/uL (0-0.5); Eosinophils % (auto) 1.1 %; Hemoglobin 8.8 g/dL (14.0-18.0); Immature Granulocytes # (auto) 0.02 K/uL (0.00-0.02); Immature Granulocytes % (auto) 0.3 %; Lymphocytes # (auto) 0.81 K/uL (1.2-3.4); Lymphocytes % (auto) 11.1 %; Mean Corpuscular Hemoglobin 29.3 pg (25-34); Mean Corpuscular Hgb Conc 32.6 g/dL (32-36); Mean Platelet Volume 9.7 fL (7.4-10.4); Monocytes # (auto) 0.77 K/uL (0.11-0.59); Monocytes % (auto) 10.5 %; Neutrophils # (auto) 5.64 K/uL (1.4-6.5); Neutrophils % (auto) 76.9 %; Platelet Count 146 K/uL (130-400); RDW Coefficient of Variation 15.5 % (11.5-14.5); RDW Standard Deviation 51.2 fL (36.4-46.3); White Blood Count 7.33 K/uL (4.8-10.8)
[2020-12-08 12:15] LABS: INR 1.1 (0.9-1.1); Partial Thromboplastin Ratio 1.1; Partial Thromboplastin Time 28.8 Seconds (21.0-31.0); Prothrombin Time 11.4 Seconds (9.0-12.0)
[2020-12-08 12:27] LABS: Appearance Urine Clear (Clear); Bacteria Urine Automated Negative (Negative); Bilirubin Urine Negative (Negative); Blood Urine Trace (Negative); Color Urine Yellow; Epithelial Cell Urine Auto 0-5 /lpf (0-5); Glucose Urine UA Negative (Negative); Ketones Urine Negative (Negative); Leukocyte Esterase Urine Negative (Negative); Nitrite Urine Negative (Negative); Protein Urine Negative (Negative); RBC Urine Automated 0-4 /hpf (0-4); Specific Gravity Urine 1.012 (1.000-1.030); Urobilinogen Urine Negative (Negative)
[2020-12-08 12:31] LABS: Albumin Level 2.2 gm/dl (3.4-5.0); BUN Creatinine Ratio 22.4 (10-20); Blood Urea Nitrogen 24 mg/dl (7-18); Calcium 9.4 mg/dl (8.5-10.1); Carbon Dioxide 31 mmol/L (21-32); Chloride 100 mmol/L (98-107); Creatinine Clr Calc Pharmacy 109.7 ml/min; Est GFR (African American) 85.2 ml/min; Est GFR (Non-African American) 73.5 ml/min; Glucose 169 mg/dl (70-99); Magnesium 1.6 mg/dl (1.8-2.4); Potassium 3.6 mmol/L (3.5-5.1); Sodium 137 mmol/L (136-145)
[2020-12-08 12:36] LABS: Alanine Aminotransferase 19 U/L (12-78); Albumin Globulin Ratio 0.6 (0.9-2); Alkaline Phosphatase 112 U/L (45-117); Aspartate Aminotransferase 14 U/L (15-37); Bilirubin,Total 0.4 mg/dl (0.2-1); Total Protein 6.2 gm/dl (6.4-8.2); Troponin I < 0.015 ng/ml (0-0.045)
--- NOTE | 2020-12-08 13:56 | Emergency Department Note ---
Impression & Plan Bilateral pneumonia, Obstructive sleep apnea, Hypomagnesemia, Anemia, COVID-19 virus infection ED Provider Note NAME: WILVER THAO AGE: 65 SEX: M : 1955 ARRIVES VIA: Ambulance INFORMANT: Patient, prehospital personnel and patient's prison documentation ED PROVIDER(S): Pastor Zimmer DO CHIEF COMPLAINT: Shortness of breath HPI: The patient is a 65-year-old male who presented to the emergency department with shortness of breath symptoms. The patient has a history of CHF as well as COPD. He does wear oxygen chronically. He had a CT of the chest without contrast at the end of November. This showed bilateral infiltrates. The patient is at [facility] for inpatient rehab. His symptoms were worsening and he was having worsening shortness of breath. He was sent back to the emergency department specifically for a CT of the chest to rule out pulmonary embolism as well as further evaluate his breathing issues. The patient himself states that he feels better when his oxygen is turned up. He states he has lower extremity swelling but this is not new for him. He does not complain of cough. He has had no repo rted fever. The patient denies having any abdominal pain or vomiting. He states his symptoms are moderate to severe. The patient was wearing his oxygen upon arrival. ROS: See above HPI for pertinent positives & negatives. A total of 10 systems reviewed and were otherwise negative. PAST MEDICAL HISTORY: See Below PAST SURGICAL HISTORY: See Below FAMILY HISTORY: See Below SOCIAL HISTORY: See Below HOME MEDICATIONS: See Below ALLERGIES: See Below VITALS: See Below PHYSICAL EXAMINATION: GENERAL: The patient is listless and slow to respond to questions. He does not appear to be uncomfortable. He answers questions appropriately. EYES: The conjunctivae are clear. The pupils are round and reactive. EARS, NOSE, MOUTH AND THROAT: The nose is without any evidence of any deformity. NECK: The neck is nontender and supple. RESPIRATORY: Shallow respirations were noted. Diminished breath sounds are noted throughout. There was no conversational dyspnea. CARDIOVASCULAR: Regular rate and rhythm noted there no murmurs rubs or gallops normal S1 normal S2. GASTROINTESTINAL: The abdomen is soft. Abdomen is nontender. MUSCULOSKELETAL/EXTREMITIES: There is no evidence of gross deformity full range of motion is noted in the hips and shoulders. SKIN: Skin is warm and dry. Pedal edema was noted bilaterally. NEUROLOGIC: Patient is oriented to person place and situation. Strength was symmetric. MEDICAL DECISION MAKING: The patient is a 65-year-old male who has a history of obstructive sleep apnea. He was recently discharged in our facility with COVID-19 infection. He had a significant oxygen requirement. [facility] He had a CTA of the chest prior to discharge. It showed bilateral infiltrate. The patient was [facility]. Apparently he was not doing well and was sent back to the emergency department for the possibility of pulmonary embolism. I discussed the patient's laboratory and radiographic studies with him. He was treated with IV antibiotics in the emergency department. He was also treated with IV magnesium. He was reevaluated multiple times. I did discuss his case with the on-call [facility]. They have agreed to evaluate the patient in the emergency department for further management and disposition. Patient was falling asleep easily in the emergency department. I do feel this could be consistent with his obstructive sleep apnea. He was not retaining CO2. The patient was resting comfortably on final reevaluation. Triage Nursing notes reviewed. Prior medical records reviewed Vital Signs: reviewed and remarkable for elevated blood pressure. Differential diagnosis: Reactive airway disease, pneumonia, pneumothorax, COPD, CHF, infections, cardiac ischemia, pulmonary embolism, musculoskeletal, gastrointestinal, as well as other pathologies. ER treatment provided: See below Diagnostics interpreted by me: ECG: EKG was obtained in the emergency department. My interpretation is normal sinus rhythm at 74 bpm. Right bundle branch block pattern was favored. Diffuse ST segment depressions were noted. This was compared to a tracing from November 29, 2020. No significant changes were noted. Cardiac Monitoring: An order was placed for continuous cardiac monitoring. The monitor shows a rate of 68 beats per minute with sinus rhythm. Laboratory studies: As stated above and show below. Imaging studies: See below Consultation(s): [id number]: I discussed this case with Dr. Mittal who is on-call for the [facility] group. Past Med/Surg History Medical History CHF (congestive heart failure) Coronary artery disease Depression Diabetes mellitus, type II Hyperlipidemia Hypertension Morbid obesity FRANCIS (obstructive sleep apnea) Venous insufficiency Surgical History H/O knee surgery Family History Other Throat cancer Social History Smoking Status: Never smoker Hx Alcohol Use: Yes Alcohol type: beer Hx Substance Use: No Preferred Language: Macedonian Communication Ability: Effective Physical Trainer Required: No Beliefs That Will Affect Care: None marital status: Single Current Living Situation: Rehab How many Children do You have: 0 Feels Safe at Home: Yes Assistive Devices: Oxygen - Continuous Allergies Allergies Allergy/AdvReac Type Severity Reaction Status Date / Time No Known Allergies Allergy Verified 12/08/20 11:29 Home Meds Home Medications Medication Instructions Recorded Confirmed Anoro Ellipta 1 inh INHALATION DAILY 11/29/20 12/08/20 acetaminophen [Tylenol] 650 mg PO Q4 PRN 11/29/20 12/08/20 amlodipine 10 mg PO DAILY 11/29/20 12/08/20 atorvastatin 40 mg PO HS 11/29/20 12/08/20 bumetanide 2 mg PO DAILY 11/29/20 12/08/20 carvedilol 12.5 mg PO BIDM 11/29/20 12/08/20 cholecalciferol (vitamin D3) 50 mcg PO DAILY 11/29/20 12/08/20 [Vitamin D3] docusate sodium 100 mg PO BID PRN 11/29/20 12/08/20 duloxetine 60 mg PO DAILY 11/29/20 12/08/20 ferrous sulfate 325 mg PO BID 11/29/20 12/08/20 gabapentin 300 mg PO HS 11/29/20 12/08/20 insulin aspart U-100 [Novolog 5 unit SUBCUT TIDM 11/29/20 12/08/20 U-100 Insulin aspart] insulin glargine 20 unit SUBCUT BID 11/29/20 12/08/20 ipratropium-albuterol 1 puff INHALATION QID 11/29/20 12/08/20 magnesium hydroxide [Milk of 30 ml PO DAILY PRN 11/29/20 12/08/20 Magnesia] montelukast [Singulair] 10 mg PO HS 11/29/20 12/08/20 pantoprazole [Protonix] 40 mg PO DAILY 11/29/20 12/08/20 polyethylene glycol 3350 [Miralax] 17 g PO DAILY PRN 11/29/20 12/08/20 potassium chloride 20 meq PO DAILY 11/29/20 12/08/20 prednisone 30 mg PO DAILY 11/29/20 12/08/20 sennosides-docusate sodium 1 tab-cap PO .QLUNCH PRN 11/29/20 12/08/20 [Senokot-S] sertraline 100 mg PO DAILY 11/29/20 12/08/20 tamsulosin 0.8 mg PO DAILY 11/29/20 12/08/20 Results & Data (ED) Vital Signs Vital Signs - 24 hr 12/08/20 11:18 12/08/20 11:30 12/08/20 11:57 Temperature 36.4 C L Temperature Source Oral Pulse Rate 72 73 Pulse Rate from SpO2 Sensor 73 Pulse Rhythm Regular Pulse Strength Normal Respiratory Rate 16 19 Respiratory Effort / Characteristics Non-Labored Spontaneous Spontaneous Respiratory Depth Normal Respiratory Pattern Regular Regular Blood Pressure 160/76 H 140/68 Blood Pressure Mean 104 92 Pulse Oximetry 100 100 Oxygen Delivery Method Nasal Cannula Nasal Cannula Oxygen Flow Rate 6 3 Sepsis Recent Fever Within 48 Hours No Sepsis New/Unexplained Change in Mental Status N/A Sepsis Action Taken by Nursing No Action Required 12/08/20 11:58 12/08/20 12:07 12/08/20 12:30 Temperature Temperature Source Pulse Rate 75 71 Pulse Rate from SpO2 Sensor 75 71 Pulse Rhythm Pulse Strength Respiratory Rate 18 19 Respiratory Effort / Characteristics Respiratory Depth Respiratory Pattern Blood Pressure 165/78 H 153/80 H Blood Pressure Mean 107 104 Pulse Oximetry 96 98 100 Oxygen Delivery Method Nasal Cannula Oxygen Flow Rate 3 Sepsis Recent Fever Within 48 Hours Sepsis New/Unexplained Change in Mental Status Sepsis Action Taken by Nursing 12/08/20 13:00 12/08/20 13:30 12/08/20 14:00 Temperature Temperature Source Pulse Rate 68 62 64 Pulse Rate from SpO2 Sensor 68 63 63 Pulse Rhythm Pulse Strength Respiratory Rate 17 17 20 Respiratory Effort / Characteristics Respiratory Depth Respiratory Pattern Blood Pressure 169/85 H 162/79 H 187/104 H Blood Pressure Mean 113 106 131 Pulse Oximetry 97 90 97 Oxygen Delivery Method Oxygen Flow Rate Sepsis Recent Fever Within 48 Hours Sepsis New/Unexplained Change in Mental Status Sepsis Action Taken by Nursing 12/08/20 14:30 12/08/20 15:00 12/08/20 15:01 Temperature Temperature Source Pulse Rate 61 63 64 Pulse Rate from SpO2 Sensor 61 63 63 Pulse Rhythm Pulse Strength Respiratory Rate 18 18 17 Respiratory Effort / Characteristics Respiratory Depth Respiratory Pattern Blood Pressure 124/83 146/85 H Blood Pressure Mean 96 105 Pulse Oximetry 98 98 99 Oxygen Delivery Method Oxygen Flow Rate Sepsis Recent Fever Within 48 Hours Sepsis New/Unexplained Change in Mental Status Sepsis Action Taken by Nursing 12/08/20 15:30 12/08/20 15:31 12/08/20 15:32 Temperature Temperature Source Pulse Rate 63 62 63 Pulse Rate from SpO2 Sensor 65 61 63 Pulse Rhythm Pulse Strength Respiratory Rate 21 16 16 Respiratory Effort / Characteristics Respiratory Depth Respiratory Pattern Blood Pressure 165/92 H Blood Pressure Mean 116 Pulse Oximetry 97 99 99 Oxygen Delivery Method Nasal Cannula Oxygen Flow Rate 2 Sepsis Recent Fever Within 48 Hours Sepsis New/Unexplained Change in Mental Status Sepsis Action Taken by Nursing 12/08/20 16:00 12/08/20 16:30 Temperature Temperature Source Pulse Rate 69 68 Pulse Rate from SpO2 Sensor 71 70 Pulse Rhythm Pulse Strength Respiratory Rate 12 13 Respiratory Effort / Characteristics Respiratory Depth Respiratory Pattern Blood Pressure 165/90 H Blood Pressure Mean 115 Pulse Oximetry 95 97 Oxygen Delivery Method Nasal Cannula Nasal Cannula Oxygen Flow Rate 2 2 Sepsis Recent Fever Within 48 Hours Sepsis New/Unexplained Change in Mental Status Sepsis Action Taken by Care Home Medications Current Medication List: was personally reviewed by me Laboratory Data Attestation: I reviewed the patient's lab results. Result diagrams: 12/08/20 11:52 12/08/20 11:52 Lab Results 12/08/20 12/08/20 12/08/20 Range/Units 11:52 11:52 11:52 WBC 7.33 (4.8-10.8) K/uL RBC 3.00 L (4.7-6.1) M/uL Hgb 8.8 L (14.0-18.0) g/dL Hct 27.0 L (42-52) % MCV 90.0 (80-100) fL MCH 29.3 (25-34) pg MCHC 32.6 (32-36) g/dL RDW Std Deviation 51.2 H (36.4-46.3) fL RDW Coeff of Xin 15.5 H (11.5-14.5) % Plt Count 146 (130-400) K/uL MPV 9.7 (7.4-10.4) fL Immature Gran % (Auto) 0.3 % Neut % (Auto) 76.9 % Lymph % (Auto) 11.1 % [place] % (Auto) 10.5 % Eos % (Auto) 1.1 % Baso % (Auto) 0.1 % Neut # (Auto) 5.64 (1.4-6.5) K/uL Lymph # (Auto) 0.81 L (1.2-3.4) K/uL [place] # (Auto) 0.77 H (0.11-0.59) K/uL Eos # (Auto) 0.08 (0-0.5) K/uL Baso # (Auto) 0.01 (0-0.2) K/uL Immature Gran # (Auto) 0.02 (0.00-0.02) K/uL PT 11.4 (9.0-12.0) Seconds INR 1.1 (0.9-1.1) APTT 28.8 (21.0-31.0) Seconds PTT Ratio 1.1 VBG pH (7.36-7.41) VBG pCO2 (38-50) mmHg VBG pO2 mmHg VBG HCO3 mmol/L VBG O2 Saturation % VBG Base Excess mEq/L Barometric Pressure mm/Hg Sodium 137 (136-145) mmol/L Potassium 3.6 (3.5-5.1) mmol/L Chloride 100 (98-107) mmol/L Carbon Dioxide 31 (21-32) mmol/L Anion Gap 6.0 (3-11) BUN 24 H (7-18) mg/dl Creatinine 1.07 (0.6-1.4) mg/dl Est Cr Clr Drug Dosing 109.7 ml/min Est GFR ( Amer) 85.2 ml/min Est GFR (Non-Af Amer) 73.5 ml/min BUN/Creatinine Ratio 22.4 H (10-20) Glucose 169 H (70-99) mg/dl Lactate (0.4-2.0) mmol/L Calcium 9.4 (8.5-10.1) mg/dl Magnesium 1.6 L (1.8-2.4) mg/dl Total Bilirubin 0.4 (0.2-1) mg/dl AST 14 L (15-37) U/L ALT 19 (12-78) U/L Alkaline Phosphatase 112 (45-117) U/L Troponin I < 0.015 (0-0.045) ng/ml NT-Pro-B Natriuret Pep (0-900) pg/ml Total Protein 6.2 L (6.4-8.2) gm/dl Albumin 2.2 L (3.4-5.0) gm/dl Globulin 4.0 (2.5-4.0) gm/dl Albumin/Globulin Ratio 0.6 L (0.9-2) Urine Color Urine Appearance (Clear) Urine pH (4.5-7.5) Ur Specific [place] (1.000-1.030) Urine Protein (Negative) Urine Glucose (UA) (Negative) Urine Ketones (Negative) Urine Blood (Negative) Urine Nitrite (Negative) Urine Bilirubin (Negative) Urine Urobilinogen (Negative) Ur Leukocyte Esterase (Negative) Urine WBC (Auto) (0-5) /hpf Urine RBC (Auto) (0-4) /hpf U Hyaline Cast (Auto) (0-5) /lpf U Epithel Cells (Auto) (0-5) /lpf Urine Bacteria (Auto) (Negative) COVID-19 Eval Order SARS-CoV-2 (PCR) (Negative) 12/08/20 12/08/20 12/08/20 Range/Units 11:52 12:05 13:53 WBC (4.8-10.8) K/uL RBC (4.7-6.1) M/uL Hgb (14.0-18.0) g/dL Hct (42-52) % MCV (80-100) fL MCH (25-34) pg MCHC (32-36) g/dL RDW Std Deviation (36.4-46.3) fL RDW Coeff of Xin (11.5-14.5) % Plt Count (130-400) K/uL MPV (7.4-10.4) fL Immature Gran % (Auto) % Neut % (Auto) % Lymph % (Auto) % [place] % (Auto) % Eos % (Auto) % Baso % (Auto) % Neut # (Auto) (1.4-6.5) K/uL Lymph # (Auto) (1.2-3.4) K/uL [place] # (Auto) (0.11-0.59) K/uL Eos # (Auto) (0-0.5) K/uL Baso # (Auto) (0-0.2) K/uL Immature Gran # (Auto) (0.00-0.02) K/uL PT (9.0-12.0) Seconds INR (0.9-1.1) APTT (21.0-31.0) Seconds PTT Ratio VBG pH (7.36-7.41) VBG pCO2 (38-50) mmHg VBG pO2 mmHg VBG HCO3 mmol/L VBG O2 Saturation % VBG Base Excess mEq/L Barometric Pressure mm/Hg Sodium (136-145) mmol/L Potassium (3.5-5.1) mmol/L Chloride (98-107) mmol/L Carbon Dioxide (21-32) mmol/L Anion Gap (3-11) BUN (7-18) mg/dl Creatinine (0.6-1.4) mg/dl Est Cr Clr Drug Dosing ml/min Est GFR ( Amer) ml/min Est GFR (Non-Af Amer) ml/min BUN/Creatinine Ratio (10-20) Glucose (70-99) mg/dl Lactate 1.3 (0.4-2.0) mmol/L Calcium (8.5-10.1) mg/dl Magnesium (1.8-2.4) mg/dl Total Bilirubin (0.2-1) mg/dl AST (15-37) U/L ALT (12-78) U/L Alkaline Phosphatase (45-117) U/L Troponin I (0-0.045) ng/ml NT-Pro-B Natriuret Pep 1266 H (0-900) pg/ml Total Protein (6.4-8.2) gm/dl Albumin (3.4-5.0) gm/dl Globulin (2.5-4.0) gm/dl Albumin/Globulin Ratio (0.9-2) Urine Color Yellow Urine Appearance Clear (Clear) Urine pH 5.0 (4.5-7.5) Ur Specific [place] 1.012 (1.000-1.030) Urine Protein Negative (Negative) Urine Glucose (UA) Negative (Negative) Urine Ketones Negative (Negative) Urine Blood Trace H (Negative) Urine Nitrite Negative (Negative) Urine Bilirubin Negative (Negative) Urine Urobilinogen Negative (Negative) Ur Leukocyte Esterase Negative (Negative) Urine WBC (Auto) 1-5 (0-5) /hpf Urine RBC (Auto) 0-4 (0-4) /hpf U Hyaline Cast (Auto) 1-5 (0-5) /lpf U Epithel Cells (Auto) 0-5 (0-5) /lpf Urine Bacteria (Auto) Negative (Negative) COVID-19 Eval Order SARS-CoV-2 (PCR) (Negative) 12/08/20 12/08/20 12/08/20 Range/Units 13:53 14:37 14:37 WBC (4.8-10.8) K/uL RBC (4.7-6.1) M/uL Hgb (14.0-18.0) g/dL Hct (42-52) % MCV (80-100) fL MCH (25-34) pg MCHC (32-36) g/dL RDW Std Deviation (36.4-46.3) fL RDW Coeff of Xin (11.5-14.5) % Plt Count (130-400) K/uL MPV (7.4-10.4) fL Immature Gran % (Auto) % Neut % (Auto) % Lymph % (Auto) % [place] % (Auto) % Eos % (Auto) % Baso % (Auto) % Neut # (Auto) (1.4-6.5) K/uL Lymph # (Auto) (1.2-3.4) K/uL [place] # (Auto) (0.11-0.59) K/uL Eos # (Auto) (0-0.5) K/uL Baso # (Auto) (0-0.2) K/uL Immature Gran # (Auto) (0.00-0.02) K/uL PT (9.0-12.0) Seconds INR (0.9-1.1) APTT (21.0-31.0) Seconds PTT Ratio VBG pH 7.43 H (7.36-7.41) VBG pCO2 49 (38-50) mmHg VBG pO2 34 mmHg VBG HCO3 31 mmol/L VBG O2 Saturation 66.0 % VBG Base Excess 6.3 mEq/L Barometric Pressure 729.2 mm/Hg Sodium (136-145) mmol/L Potassium (3.5-5.1) mmol/L Chloride (98-107) mmol/L Carbon Dioxide (21-32) mmol/L Anion Gap (3-11) BUN (7-18) mg/dl Creatinine (0.6-1.4) mg/dl Est Cr Clr Drug Dosing ml/min Est GFR ( Amer) ml/min Est GFR (Non-Af Amer) ml/min BUN/Creatinine Ratio (10-20) Glucose (70-99) mg/dl Lactate (0.4-2.0) mmol/L Calcium (8.5-10.1) mg/dl Magnesium (1.8-2.4) mg/dl Total Bilirubin (0.2-1) mg/dl AST (15-37) U/L ALT (12-78) U/L Alkaline Phosphatase (45-117) U/L Troponin I (0-0.045) ng/ml NT-Pro-B Natriuret Pep (0-900) pg/ml Total Protein (6.4-8.2) gm/dl Albumin (3.4-5.0) gm/dl Globulin (2.5-4.0) gm/dl Albumin/Globulin Ratio (0.9-2) Urine Color Urine Appearance (Clear) Urine pH (4.5-7.5) Ur Specific [place] (1.000-1.030) Urine Protein (Negative) Urine Glucose (UA) (Negative) Urine Ketones (Negative) Urine Blood (Negative) Urine Nitrite (Negative) Urine Bilirubin (Negative) Urine Urobilinogen (Negative) Ur Leukocyte Esterase (Negative) Urine WBC (Auto) (0-5) /hpf Urine RBC (Auto) (0-4) /hpf U Hyaline Cast (Auto) (0-5) /lpf U Epithel Cells (Auto) (0-5) /lpf Urine Bacteria (Auto) (Negative) COVID-19 Eval Order Covid19 at [facility] SARS-CoV-2 (PCR) POSITIVE A* (Negative) Administered Medications Discontinued Medications Cefepime HCl (Maxipime) 2,000 mg in 20 mls @ 5 mls/min IV NOW STA; Protocol Stop: 12/08/20 17:27 Last Admin: 12/08/20 17:39 Dose: 5 mls/min Documented by: [id number] Ioversol (Optiray 320 125ml) 118 ml IV ONCE ONE Stop: 12/08/20 17:06 Last Admin: 12/08/20 17:06 Dose: 118 ml Documented by: [id number] Imaging Data Radiologist's Impression: Chest X-Ray 12/08/20 11:27 XR chest 1V portable CLINICAL HISTORY: Shortness of breath COMPARISON STUDY: 11/30/2020 FINDINGS: The heart remains enlarged. There is mild right lung volume loss. There are persistent bilateral pulmonary airspace opacities right greater than left. There is suspected mild improvement compared the prior study. There is no change in the position of the right-sided PICC catheter. There is mild blunting of the lateral costophrenic angles. No large effusions are visualized.[ IMPRESSION: Persistent bilateral pulmonary airspace opacities right greater than left with suspected mild improvement when compared the prior study ACT 112: Negative or not required by law. Electronically signed by: Kb Lee M.D. 12/08/2020 12:03 PM Chest CTA 12/08/20 13:30 CT ANGIOGRAPHY OF THE CHEST, PULMONARY EMBOLUS PROTOCOL CLINICAL HISTORY: Shortness of breath, [facility] PE rule COMPARISON STUDY: Chest CT November 30, 2020. Chest radiograph performed earlier today. TECHNIQUE: Following IV administration of 118 mL of Optiray, helical axial images of the chest were obtained utilizing the pulmonary embolus protocol. Maximal intensity projections and sagittal and coronal reformats were viewed on an independent 3D workstation. IV contrast was administered without complication. Automated exposure control was utilized for the study. A dose lowering technique was utilized adhering to the principles of ALARA. CT DOSE: 667.91 mGycm FINDINGS: A right PICC is in place. No pulmonary emboli are identified although the segmental and subsegmental pulmonary arteries are suboptimally assessed due to respiratory motion. Moderate to marked cardiomegaly is again noted. There is no pericardial effusion. There is no pneumothorax. Trace bilateral pleural effusions are noted. No enlarged thoracic lymph nodes are present. Extensive bilateral airspace opacities have mildly progressed since CT of November 30, 2020. Mild splenomegaly is partially imaged on this exam. IMPRESSION: 1. No pulmonary emboli identified although segmental and subsegmental pulmonary arteries suboptimally assessed due to respiratory motion. 2. Extensive bilateral airspace opacities which have mildly progressed since chest CT of November 30, 2020. These favor multifocal pneumonia.. 3. Moderate to marked cardiomegaly. 4. Trace bilateral pleural effusions. ACT 112: Negative or not required by law. Electronically signed by: Norberto Oliver M.D. 12/08/2020 5:21 PM Discharge Plan Visit Data Chief Complaint: Shortness of Breath/Dyspnea Stated Complaint: SOB ED Provider: Pastor Zimmer Discharge Problem: Bilateral pneumonia, Obstructive sleep apnea, Hypomagnesemia, Anemia, COVID-19 virus infection Patient Disposition: Being Evaluated by Hospitalist Condition: Good Forms Stand Alone Forms: [facility] [employer] Prescriptions Prescriptions: No Action atorvastatin 40 mg Tablet 40 mg PO HS RF: 0 carvedilol 12.5 mg Tablet 12.5 mg PO BIDM RF: 0 sertraline 100 mg Tablet 100 mg PO DAILY RF: 0 tamsulosin 0.4 mg Capsule 0.8 mg PO DAILY RF: 0 pantoprazole [Protonix] 40 mg Tablet,Delayed Release (Dr/Ec) 40 mg PO DAILY RF: 0 ferrous sulfate 325 mg (65 mg iron) Tablet 325 mg PO BID RF: 0 montelukast [Singulair] 10 mg Tablet 10 mg PO HS RF: 0 duloxetine 30 mg Capsule,Delayed Release(Dr/Ec) 60 mg PO DAILY RF: 0 cholecalciferol (vitamin D3) [Vitamin D3] 50 mcg (2,000 unit) Capsule 50 mcg PO DAILY RF: 0 acetaminophen [Tylenol] 325 mg Tablet 650 mg PO Q4 PRN (Reason: PAIN , SCALE 1-3) RF: 0 polyethylene glycol 3350 [Miralax] 17 gram Powder In Packet 17 g PO DAILY PRN (Reason: Constipation) RF: 0 sennosides-docusate sodium [Senokot-S] 8.6-50 mg Tablet 1 tab-cap PO .QLUNCH PRN RF: 0 magnesium hydroxide [Milk of Magnesia] 400 mg/5 mL Suspension 30 ml PO DAILY PRN (Reason: Constipation) RF: 0 docusate sodium 100 mg Capsule 100 mg PO BID PRN (Reason: Constipation) RF: 0 ipratropium-albuterol 20-100 mcg/actuation Mist 1 puff INHALATION QID RF: 0 bumetanide 2 mg Tablet 2 mg PO DAILY RF: 0 insulin aspart U-100 [Novolog U-100 Insulin aspart] 100 unit/mL Solution 5 unit SUBCUT TIDM RF: 0 prednisone 10 mg Tablet 30 mg PO DAILY RF: 0 insulin glargine 100 unit/mL Cartridge 20 unit SUBCUT BID RF: 0 amlodipine 10 mg Tablet 10 mg PO DAILY RF: 0 potassium chloride 20 mEq Tablet Extended Release 20 meq PO DAILY RF: 0 gabapentin 300 mg Capsule 300 mg PO HS RF: 0 Anoro Ellipta 62.5-25 mcg/actuation Blister With Device 1 inh INHALATION DAILY RF: 0 Referrals Referrals: [facility] [Primary Care Provider] - Discharge Problem: Bilateral pneumonia Qualifiers: Pneumonia type: due to unspecified organism Lung location: lower lobe of lung Qualified Code(s): J18.9 - Pneumonia, unspecified organism Anemia Qualifiers: Anemia type: unspecified type Qualified Code(s): D64.9 - Anemia, unspecified
[2020-12-08 14:04] LABS: Base Excess VBG 6.3 mEq/L; pH VBG 7.43 (7.36-7.41)
--- NOTE | 2020-12-08 15:31 | Electrocardiogram Report ---
Test Reason : Blood Pressure : / mmHG Vent. Rate : 074 BPM Atrial Rate : 074 BPM P-R Int : 170 ms QRS Dur : 150 ms QT Int : 442 ms P-R-T Axes : 012 -43 -24 degrees QTc Int : 490 ms Normal sinus rhythm Left axis deviation Right bundle branch block Abnormal ECG When compared with ECG of 29-NOV-2020 13:25, No significant change was found Confirmed by Tio Chua ([id number]) on 12/08/2020 3:31:23 PM Referred By: Confirmed By:Tio Chua
[2020-12-08] MEDS ORDERED: OPTIRAY 320 125ml IV ONE (17:05)
--- NOTE | 2020-12-08 17:22 | CT Scan Report ---
CT ANGIOGRAPHY OF THE CHEST, PULMONARY EMBOLUS PROTOCOL CLINICAL HISTORY: Shortness of breath, sent by [facility] for PE rule COMPARISON STUDY: Chest CT November 30, 2020. Chest radiograph performed earlier today. TECHNIQUE: Following IV administration of 118 mL of Optiray, helical axial images of the chest were o btained utilizing the pulmonary embolus protocol. Maximal intensity projections and sagittal and cor onal reformats were viewed on an independent 3D workstation. IV contrast was administered without co mplication. Automated exposure control was utilized for the study. A dose lowering technique was ut ilized adhering to the principles of ALARA. CT DOSE: 667.91 mGycm FINDINGS: A right PICC is in place. No pulmonary emboli are identified although the segmental and العلي bsegmental pulmonary arteries are suboptimally assessed due to respiratory motion. Moderate to marked cardiomegaly is again noted. There is no pericardial effusion. There is no pneumothorax. Trace bilat eral pleural effusions are noted. No enlarged thoracic lymph nodes are present. Extensive bilateral a irspace opacities have mildly progressed since CT of November 30, 2020. Mild splenomegaly is partially im aged on this exam. IMPRESSION: 1. No pulmonary emboli identified although segmental and subsegmental pulmonary arteries suboptimally assessed due to respiratory motion. 2. Extensive bilateral airspace opacities which have mildly progressed since chest CT of November 30 1. These favor multifocal pneumonia.. 3. Moderate to marked cardiomegaly. 4. Trace bilateral pleural effusions. ACT 112: Negative or not required by law. Electronically signed by: Norberto Oliver M.D. 12/08/2020 5:21 PM
[2020-12-08] MEDS ORDERED: CEFEPIME 2,000 MG/20 ML VIAL IV STA (17:24)
[2020-12-08] MEDS ORDERED: VANCOMYCIN CONSULT ACTIVE PRN (17:24)
[2020-12-08] MEDS ORDERED: VANCOMYCIN HCL 2,750 MG in SODIUM CHLORIDE 0.9% 500 ML IV ONE (17:24)
[2020-12-08] MEDS: MAGNESIUM SULFATE / D5W 1 GM/100 ML BAG IV SCH ×2 (18:25→20:00)
--- NOTE | 2020-12-08 19:07 | History & Physical Report ---
Date of Service December 08, 2020 Assessment & Plan (1) Respiratory failure: Acute on chronic respiratory failure in setting of COVID-19 virus infection with recent post Covid pneumonitis. Now with worsening shortness of breath and worsening infiltrates. We will give trial of Lasix, holding p.o. Bumex. Consult pulmonology for additional recommendations. Procalcitonin is negative, therefore, antibiotics not likely needed. However, will try them empirically to see if he improves. (2) Bilateral pneumonia: Plan as above. (3) COVID-19 virus infection: Received 1 dose of Tocilizumab upon initial diagnosis in mid October followed by a course of remdesivir and dexamethasone. (4) CHF (congestive heart failure): He does not necessarily describe a worsening heart failure picture. May have worsening dyspnea secondary to inflammatory pneumonitis. Switching from Bumex to intravenous Lasix to see if this does help. Continue to monitor daily weights, strict I's and O's and low-salt diet (5) Anemia: Multifactorial in setting of multiple comorbidities and multiple recent hospitalizations. No paige bleeding or acute blood loss. Trend CBC and transfuse if needed. (6) Diabetes mellitus, type II: Currently holding outpatient regimen of insulin and utilizing weight-based multi daily dose insulin schedule in the hospital.Most recent A1c is 7.1 on 11/30/2020 (7) Depression: Patient noted to be on Cymbalta and sertraline. Kept Cymbalta in place and drop sertraline to avoid any serotonin syndrome. Will need to discuss this and optimize him prior to discharge. (8) Hypomagnesemia: Replace and repeat in a.m. (9) DVT prophylaxis: Lovenox Full code Disposition-back to [facility] for additional inpatient rehab once medically stable. DO [facility] History of Present Illness Chief Complaint: Shortness of breath Primary Care Provider: [facility] The patient is a 65-year-old man with a history of CHF and COPD who wears oxygen. He was recently admitted with Covid pneumonia and is currently at [facility] for inpatient rehab. He has had COVID-19 since middle of October and received Tocilizumab, remdesivir and a full course of steroids. Although the patient himself has no reports of concerns, he was sent over by staff for worsening shortness of breath. It is noted the patient is very physically deconditioned, obese and is a poor historian. For example, he did not realize he had an indwelling urinary catheter in place. He denies any current chest pain, fevers, chills, abdominal pain, stool changes, urinary symptoms. From a functional standpoint he is very sedentary. During his last visit he was seen by pulmonary and cardiology subspecialists; the medical team was treating him for acute on chronic respiratory failure with hypoxemia secondary to a post Covid pneumonitis with multifocal infiltrates. No new medications were started at discharge. While at [facility] the patient was on cefepime and Levaquin with some improvement. CT of the chest with contrast today reveals no acute pulmonary embolus and infiltrates that are slightly worse than recent CT. BNP mildly elevated and patient was given intravenous Lasix in the ER. Allergies Allergy/AdvReac Type Severity Reaction Status Date / Time No Known Allergies Allergy Verified 12/08/20 11:29 Home Medications Medication Instructions Recorded Confirmed Type Anoro Ellipta 1 inh INHALATION DAILY 11/29/20 12/08/20 History acetaminophen [Tylenol] 650 mg PO Q4 PRN 11/29/20 12/08/20 History amlodipine 10 mg PO DAILY 11/29/20 12/08/20 History atorvastatin 40 mg PO HS 11/29/20 12/08/20 History bumetanide 2 mg PO DAILY 11/29/20 12/08/20 History carvedilol 12.5 mg PO BIDM 11/29/20 12/08/20 History cholecalciferol (vitamin D3) 50 mcg PO DAILY 11/29/20 12/08/20 History [Vitamin D3] docusate sodium 100 mg PO BID PRN 11/29/20 12/08/20 History duloxetine 60 mg PO DAILY 11/29/20 12/08/20 History ferrous sulfate 325 mg PO BID 11/29/20 12/08/20 History gabapentin 300 mg PO HS 11/29/20 12/08/20 History insulin aspart U-100 [Novolog 5 unit SUBCUT TIDM 11/29/20 12/08/20 History U-100 Insulin aspart] insulin glargine 15 unit SUBCUT BID 11/29/20 12/08/20 History ipratropium-albuterol 1 puff INHALATION QID 11/29/20 12/08/20 History magnesium hydroxide [Milk of 30 ml PO DAILY PRN 11/29/20 12/08/20 History Magnesia] montelukast [Singulair] 10 mg PO HS 11/29/20 12/08/20 History pantoprazole [Protonix] 40 mg PO DAILY 11/29/20 12/08/20 History polyethylene glycol 3350 [Miralax] 17 g PO DAILY PRN 11/29/20 12/08/20 History potassium chloride 20 meq PO DAILY 11/29/20 12/08/20 History sennosides-docusate sodium 1 tab-cap PO .QLUNCH PRN 11/29/20 12/08/20 History [Senokot-S] sertraline 100 mg PO DAILY 11/29/20 12/08/20 History tamsulosin 0.8 mg PO DAILY 11/29/20 12/08/20 History Past Med/Surg History Medical History (Updated 12/09/20 @ 00:25 by Neha Mittal DO) CHF (congestive heart failure) Coronary artery disease Depression Diabetes mellitus, type II Hyperlipidemia Hypertension Morbid obesity FRANCIS (obstructive sleep apnea) Pneumonia due to COVID-19 virus Venous insufficiency Surgical History H/O knee surgery Family History Other Throat cancer Social History Smoking Status: Never smoker Hx Alcohol Use: Yes Alcohol type: beer Hx Substance Use: No Preferred Language: Slovak Communication Ability: Effective Baker Doughnut Required: No Beliefs That Will Affect Care: None marital status: Single Current Living Situation: Rehab How many Children do You have: 0 Other Information That Helps Us Care for You: No Feels Safe at Home: Yes Safety Concerns: Feels Safe At This Time Assistive Devices: None Review of Systems Review of Systems: All systems reviewed & are unremarkable except as noted in Subjective Physical Exam Physical Exam: CONSTITUTIONAL: obese, unkempt, vitals as above, generally NAD EYES: normal conjunctivae, no scleral icterus ENT: external ear and nose normal, MMM RESPIRATORY: clear to auscultation bilaterally, no crackles, rales or wheezes, normal respiratory effort CARDIOVASCULAR: regular rate and rhythm, S1 and 2 heard without murmurs, gallops or rubs, no JVD, no peripheral edema GASTROINTESTINAL: soft, nontender, nondistended MUSCULOSKELETAL: generalized weakness, cannot sit up on his own SKIN: warm and dry NEUROLOGIC: CN 2-12 grossly intact, normal cognition, normal speech, no gross focal deficits. PSYCHIATRIC: alert cooperative and oriented to person, place and time. Results & Data Results & Data ([facility]) Vital Signs (Past 12 Hours) Vital Signs Temp Pulse Resp BP Pulse Ox 12/08/20 16:30 68 13 97 12/08/20 16:00 69 12 165/90 H 95 12/08/20 15:32 63 16 99 12/08/20 15:31 62 16 165/92 H 99 12/08/20 15:30 63 21 97 12/08/20 15:01 64 17 146/85 H 99 12/08/20 15:00 63 18 98 12/08/20 14:30 61 18 124/83 98 12/08/20 14:00 64 20 187/104 H 97 12/08/20 13:30 62 17 162/79 H 90 12/08/20 13:00 68 17 169/85 H 97 12/08/20 12:30 71 19 153/80 H 100 12/08/20 12:07 75 18 165/78 H 98 12/08/20 11:58 96 12/08/20 11:30 73 19 140/68 100 12/08/20 11:18 36.4 C L 72 16 160/76 H 100 Laboratory Results Short CBC 12/08/20 Range/Units 11:52 WBC 7.33 (4.8-10.8) K/uL Hgb 8.8 L (14.0-18.0) g/dL Hct 27.0 L (42-52) % Plt Count 146 (130-400) K/uL BMP 12/08/20 11:52 Sodium 137 Potassium 3.6 Chloride 100 Carbon Dioxide 31 BUN 24 H Creatinine 1.07 Glucose 169 H Calcium 9.4 Cardiac Enzymes 12/08/20 Range/Units 11:52 Troponin I < 0.015 (0-0.045) ng/ml Liver Function 12/08/20 Range/Units 11:52 Total Bilirubin 0.4 (0.2-1) mg/dl AST 14 L (15-37) U/L ALT 19 (12-78) U/L Alkaline Phosphatase 112 (45-117) U/L Albumin 2.2 L (3.4-5.0) gm/dl Urine 12/08/20 Range/Units 12:05 Urine Color Yellow Urine Appearance Clear (Clear) Urine pH 5.0 (4.5-7.5) Ur Specific [place] 1.012 (1.000-1.030) Urine Protein Negative (Negative) Urine Glucose (UA) Negative (Negative) Diagnostic Findings CHEST CTA: FINDINGS: A right PICC is in place. No pulmonary emboli are identified although the segmental and subsegmental pulmonary arteries are suboptimally assessed due to respiratory motion. Moderate to marked cardiomegaly is again noted. There is no pericardial effusion. There is no pneumothorax. Trace bilateral pleural effusions are noted. No enlarged thoracic lymph nodes are present. Extensive bilateral airspace opacities have mildly progressed since CT of November 30, 2020. Mild splenomegaly is partially imaged on this exam. IMPRESSION: 1. No pulmonary emboli identified although segmental and subsegmental pulmonary arteries suboptimally assessed due to respiratory motion. 2. Extensive bilateral airspace opacities which have mildly progressed since chest CT of November 30, 2020. These favor multifocal pneumonia.. 3. Moderate to marked cardiomegaly. 4. Trace bilateral pleural effusions. (1) CHF (congestive heart failure) Heart failure chronicity: acute on chronic Heart failure type: unspecified Qualified Code(s): I50.9 - Heart failure, unspecified (2) Bilateral pneumonia Lung location: lower lobe of lung Pneumonia type: due to unspecified organism Qualified Code(s): J18.9 - Pneumonia, unspecified organism
[2020-12-08] MEDS ORDERED: FUROSEMIDE 40 MG/4 ML VIAL IV STA (20:38)
[2020-12-08] MEDS ORDERED: CEFEPIME CONSULT ACTIVE PRN (20:47)
[2020-12-08] MEDS ORDERED: ONDANSETRON INJ 2 MG/ML 2 ML VIAL IV PRN (21:43)
[2020-12-08] MEDS ORDERED: GLUCOSE 10 TABS/TUBE PO PRN (21:43)
[2020-12-08] MEDS ORDERED: DEXTROSE 50% 50 ML SYRINGE IV PRN (21:43)
[2020-12-08] MEDS ORDERED: GLUCAGON FOR INJ 1 MG VIAL SQ PRN (21:43)
[2020-12-08] MEDS ORDERED: DOCUSATE SODIUM 100 MG CAP PO PRN (21:43)
[2020-12-08] MEDS ORDERED: CARBOHYDRATES FOR HYPOGLYCEMIA PO PRN (21:43)
[2020-12-08] MEDS ORDERED: POLYETHYLENE (MIRALAX) 17 GM PACK PO PRN (21:43)
[2020-12-08] MEDS ORDERED: MAGNESIUM HYDROXIDE SUSP 30 ML UDC PO PRN (21:43)
[2020-12-08] MEDS: ATORVASTATIN 40 MG TAB PO SCH (22:48)
[2020-12-08] MEDS: GABAPENTIN 300 MG CAP PO SCH (22:48)
[2020-12-08] MEDS: MONTELUKAST SODIUM 10 MG TABLET PO SCH (22:48)
[2020-12-08] MEDS: ENOXAPARIN INJ 40 MG/0.4 ML SYR SQ SCH (22:49)
[2020-12-08] MEDS: INSULIN GLARGINE SOLOSTAR 100 UNITS/ML 3 ML PEN SC SCH (22:50)
[2020-12-08] MEDS: INSULIN ASPART 100 UNITS/ML 3 ML PEN SC SCH (22:50)
[2020-12-09] MEDS: CEFEPIME 2,000 MG in SYRINGE 0 ML IV SCH ×3 (03:24→17:54)
[2020-12-09] MEDS ORDERED: VANCOMYCIN HCL 2,000 MG in SODIUM CHLORIDE 0.9% 500 ML IV SCH (06:00)
[2020-12-09 06:32] LABS: Hematocrit (blood only) 28.6 % (42-52); Hemoglobin 9.3 g/dL (14.0-18.0); Mean Corpuscular Hemoglobin 29.4 pg (25-34); Mean Corpuscular Hgb Conc 32.5 g/dL (32-36); Mean Corpuscular Volume 90.5 fL (80-100); Platelet Count 147 K/uL (130-400); RDW Coefficient of Variation 15.6 % (11.5-14.5); RDW Standard Deviation 51.2 fL (36.4-46.3); Red Blood Count 3.16 M/uL (4.7-6.1); White Blood Count 6.28 K/uL (4.8-10.8)
--- NOTE | 2020-12-09 06:58 | Pharmacy Report ---
Pharmacy Abx Initial Consult - Date of Service December 09, 2020 - Pharmacy Dosing Scope Date of Consult: 12/09/20 Consultation requested by: Dr. Mittal Pharmacy is consulted to initiate Vancomycin and Cefepime dosing therapy, order appropriate labs and adjust drug dose/frequency. - Subjective The patient is a 65 year old M admitted on 12/08/20 18:49 with Bilateral Pnx. Patient has hx of both DM and COPD. He is oxygen dependent at home. He was admitted in October with a Covid PNX. He received both steroids and full course of Remdesivir along with monoclonal antibody dose x 1. He presents today positive for bilateral PNX and Dr. Mittal consulted pharmacy for broad spectrum agents Cefepime and Vancomycin with pending MRSA swab. - Objective Height: 6 ft 1 in Weight: 150.9 kg Vital Signs (Past 12hrs): Vital Signs Temp Pulse Pulse Pulse Resp BP BP 12/09/20 03:15 36.4 C 77 20 137/74 12/08/20 23:07 36.4 C 61 21 151/63 H 12/08/20 21:32 36.4 C 67 22 142/93 H 12/08/20 20:30 71 150/90 H 12/08/20 20:01 71 136/85 12/08/20 20:00 12/08/20 19:30 71 160/82 H 12/08/20 19:02 98 H 12/08/20 19:01 76 18 135/79 12/08/20 19:00 70 Pulse Ox 12/09/20 03:15 92 12/08/20 23:07 98 12/08/20 21:32 90 12/08/20 20:30 96 12/08/20 20:01 95 12/08/20 20:00 93 12/08/20 19:30 96 12/08/20 19:02 95 12/08/20 19:01 95 12/08/20 19:00 95 Lab Results (24hrs): Laboratory Tests (24 Hours) 12/09/20 12/08/20 12/08/20 05:54 11:52 11:52 WBC 6.28 Neut # (Auto) Creatinine 1.07 Est Cr Clr Drug Dosing 109.7 Procalcitonin 0.06 12/08/20 11:52 WBC 7.33 Neut # (Auto) 5.64 Creatinine Est Cr Clr Drug Dosing Procalcitonin Micro Results: 12/08/20 11:52 Aerobic Blood Culture - Pending Blood Anaerobic Blood Culture - Pending 12/08/20 11:44 Aerobic Blood Culture - Pending Blood Anaerobic Blood Culture - Pending - Risk Factors for Resistance * Hospitalization for 48 hours or more within the past 90 days * Antimicrobial use within the last 90 days [include specific drugs, if known] - Assessment & Plan Assessment 65 year old M with PNX Plan Vancomycin IV * Estimated PK Parameters: Vd 0.54 L/kg, Malvin 0.095hr-1, t1/2 7.3 hr * Loading dose: 2750 mg (~18 mg/kg) * Maintenance dose: 2000 mg IV (~13 mg/kg) every 8 hours * Goal trough level : 15-20 mcg/mL * Trough/Random level ordered prior to 0600 dose on 12/11/19 * A less than traditional dose has been selected due to likelihood of drug accumulation in obese patient Pharmacy will continue to follow and will adjust dose/frequency as necessary. Thank you.
[2020-12-09 07:15] LABS: C Reactive Protein 11.4 mg/dl (0-0.29); Calcium 9.9 mg/dl (8.5-10.1); Creatinine Clr Calc Pharmacy 127.3 ml/min; Est GFR (African American) 103.6 ml/min; Est GFR (Non-African American) 89.4 ml/min; Magnesium 2.2 mg/dl (1.8-2.4); Potassium 3.6 mmol/L (3.5-5.1)
[2020-12-09] MEDS: CHOLECALCIFEROL 1,000 UNITS 25 MCG TAB PO SCH (08:17)
[2020-12-09] MEDS: DULoxetine HCL 60 MG CAP PO SCH (08:17)
[2020-12-09] MEDS: amLODIPine BESYLATE 5 MG TAB PO SCH (08:17)
[2020-12-09] MEDS: FUROSEMIDE 40 MG in SYRINGE 0 ML IV SCH ×2 (08:17→17:52)
[2020-12-09] MEDS: TAMSULOSIN HCL 0.4 MG CAP PO SCH (08:17)
[2020-12-09] MEDS: PANTOprazole 40 MG TAB PO SCH (08:17)
[2020-12-09] MEDS: carvediloL 12.5 MG TAB PO SCH ×2 (08:18→17:52)
[2020-12-09] MEDS: POTASSIUM CHLORIDE CRTAB 20 MEQ TABCR PO SCH (08:18)
[2020-12-09] MEDS: ENOXAPARIN INJ 40 MG/0.4 ML SYR SQ SCH ×2 (08:18→20:57)
[2020-12-09] MEDS: UMECLIDINIUM/VILANTEROL 62.5/25MCG 7 PUFFS/INHALER INH SCH (08:18)
[2020-12-09] MEDS: INSULIN ASPART 100 UNITS/ML 3 ML PEN SC SCH ×4 (08:34→21:08)
[2020-12-09] MEDS: INSULIN GLARGINE SOLOSTAR 100 UNITS/ML 3 ML PEN SC SCH ×2 (08:35→20:58)
[2020-12-09] MEDS ORDERED: FUROSEMIDE 40 MG/4 ML VIAL IV SCH (09:00)
--- NOTE | 2020-12-09 13:15 | Pulmonary Consultation ---
Date of Consultation December 09, 2020 Assessment & Plan (1) Abnormal CT scan of lung: (2) Respiratory failure: (3) Dyspnea: (4) Hypoxemia: Impression: 65-year-old male diagnosed with Covid back in October and aggressively treated. He has some fibrotic lung disease but return to the emergency room due to what is described as shortness of breath and increased work of breathing. CT scan showed multifocal groundglass opacities. The differential would include atypical pulmonary edema, pulmonary hemorrhage, hypoventilatory/atelectatic changes. His procalcitonin has been negative. Recommendations: 1. Dyspnea: Multifactorial due to combinations of anemia, obesity, deconditioning, potential restrictive lung disease due to body habitus, and fibrotic changes from Covid. 2. The patient does have some mild groundglass opacities. I suspect these represent atypical pulmonary edema in the setting of normal procalcitonin, elevated BNP, and afebrile status. Do not think the patient requires antibiotics and these can be discontinued from a pulmonary standpoint. Would recommend aggressive control of blood pressure with targets being less than 125/75 as well as aggressive diuresis with a target net -1 to 2 L every 24 hours with attention to kidney function and electrolytes. 3. Patient definitely needs to improve his functional status. Recommend that he be out of bed to chair as tolerated and start to ambulate. Unclear if PT and OT may be an option for this patient. 4. I am unclear why he has a chronic indwelling Gamez catheter. Would recommend this be removed if possible. 5. The significance of an elevated CRP is unclear in this patient. Do not think I would recommend steroids this far out unless the patient has failed diuretics. 6. Do not believe the patient requires isolation at this point in time. His Covid test was positive but I do not ever see that he was documented negative. Would defer to infection control but again I think respiratory isolation protoc ol can likely be discontinued in this patient. We will reassess as the patient is diuresed. Feel free to contact us with questions History of Present Illness Attending Physician: Neha Mittal, DO History of Present Illness Asked by hospitalist to evaluate this patient with an abnormal CT scan and hypoxemia in the setting of post Covid. History is obtained from discussion with the patient and reviewed electronic medical record. This 65-year-old morbidly obese male was diagnosed with novel coronavirus and pneumonia back in October. He was hospitalized in [place] at [facility]. We do not have records to review but reportedly the patient was treated with remdes ivir, dexamethasone, and Tocilizumab. Eventually improved and was dismissed to rehab. He was hospitalized in our facility 11/30 through 12/01 with syncope and hypoxemia. He was seen by the pulmonary architecture consultant service at that point time and they recommended diuretics incentive spirometry and BiPAP. The patient had been convalescing at [facility]. He was sent back to the emergency room yesterday by the rehab center due to staff feeling that he was more short of breath. The patient was without complaints and continues to not offer any significant new complaints. History from the patient is difficult to obtain as he is very tangential and does not answer questions overtly. The patient does not report any significant cough sputum production chest pain palpitations fevers chills night sweats or difficulty chewing or swallowing although on my exam he does cough frequently while he is eating melon. He has not had significant increase in his oxygen requirement. He did have a CT scan performed in the emergency room which demonstrated some progressive multifocal groundglass opacities in the setting of the previous fibrotic disease. His procalcitonin was negative. Allergies Allergy/AdvReac Type Severity Reaction Status Date / Time No Known Allergies Allergy Verified 12/08/20 11:29 Home Medications Medication Instructions Recorded Confirmed Type Anoro Ellipta 1 inh INHALATION DAILY 11/29/20 12/08/20 History acetaminophen [Tylenol] 650 mg PO Q4 PRN 11/29/20 12/08/20 History amlodipine 10 mg PO DAILY 11/29/20 12/08/20 History atorvastatin 40 mg PO HS 11/29/20 12/08/20 History bumetanide 2 mg PO DAILY 11/29/20 12/08/20 History carvedilol 12.5 mg PO BIDM 11/29/20 12/08/20 History cholecalciferol (vitamin D3) 50 mcg PO DAILY 11/29/20 12/08/20 History [Vitamin D3] docusate sodium 100 mg PO BID PRN 11/29/20 12/08/20 History duloxetine 60 mg PO DAILY 11/29/20 12/08/20 History ferrous sulfate 325 mg PO BID 11/29/20 12/08/20 History gabapentin 300 mg PO HS 11/29/20 12/08/20 History insulin aspart U-100 [Novolog 5 unit SUBCUT TIDM 11/29/20 12/08/20 History U-100 Insulin aspart] insulin glargine 15 unit SUBCUT BID 11/29/20 12/08/20 History ipratropium-albuterol 1 puff INHALATION QID 11/29/20 12/08/20 History magnesium hydroxide [Milk of 30 ml PO DAILY PRN 11/29/20 12/08/20 History Magnesia] montelukast [Singulair] 10 mg PO HS 11/29/20 12/08/20 History pantoprazole [Protonix] 40 mg PO DAILY 11/29/20 12/08/20 History polyethylene glycol 3350 [Miralax] 17 g PO DAILY PRN 11/29/20 12/08/20 History potassium chloride 20 meq PO DAILY 11/29/20 12/08/20 History sennosides-docusate sodium 1 tab-cap PO .QLUNCH PRN 11/29/20 12/08/20 History [Senokot-S] sertraline 100 mg PO DAILY 11/29/20 12/08/20 History tamsulosin 0.8 mg PO DAILY 11/29/20 12/08/20 History Patient History Medical History (Updated 12/09/20 @ 13:14 by Damian Robison MD) CHF (congestive heart failure) Coronary artery disease Depression Diabetes mellitus, type II Hyperlipidemia Hypertension Morbid obesity FRANCIS (obstructive sleep apnea) Pneumonia due to COVID-19 virus Venous insufficiency Surgical History H/O knee surgery Family History Other Throat cancer Social History Smoking Status: Never smoker Hx Alcohol Use: Yes Alcohol type: beer Hx Substance Use: No Preferred Language: Icelandic Communication Ability: Effective 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 I have no additions or deletions Physical Exam Constitutional: + morbidly obese Exam limited due to morbid obesity Neck: trachea midline, no thyromegaly Respiratory: normal respiratory effort; no respiratory distress and no labored breathing Auscultation: + rales; no wheezes Cardiovascular: RRR, no murmur, no edema Gastrointestinal (Abdomen): normal bowel sounds, soft, nontender, no hepatosplenomegaly Musculoskeletal: Extremities: extremities normal to inspection Skin: no rashes, warm and dry Neurologic: Nonfocal exam Lymphatic: no cervical lymphadenopathy Results & Data Results & Data ([facility]) Vital Signs (Past 12 Hours) Vital Signs Temp Pulse Pulse Resp BP Pulse Ox 12/09/20 11:34 36.4 C L 77 20 145/73 H 90 12/09/20 11:04 69 12/09/20 08:38 36.5 C 80 20 161/112 H 12/09/20 03:15 36.4 C 77 20 137/74 92 Laboratory Results 12/09/20 05:54 12/09/20 05:54 Venous blood gas performed yesterday showed pH 7.43 and CO2 of 49 CRP 11.4 BNP 1079, 1266 on presentation Procalcitonin negative on 2 occasions Diagnostic Findings Echocardiogram from 11/30/2020 was reviewed. EF is 60 to 65% with concentric LVH and grade 1 diastolic dysfunction. Mild aortic insufficiency is noted. Right ventricular systolic function is normal with a normal size. Technically difficult study. Grade 1 diastolic dysfunction was noted. Imaging studies were independently reviewed. CT angiogram from 12/08/2020 showed no evidence of PE. Bilateral airspace opacities were noted with marked cardiomegaly and bilateral pleural effusions PG Care Time/CCT Total # of Minutes Spent Total Time Spent with Patient: Total time spent is greater than 50% in coordination of care (as documented) at patient's floor/unit and/or counseling patient: Coding Level of Care Code 41033 Inpt Consult Level [address] scan of lung R91.8 Respiratory failure J96.90 Dyspnea R06.00 Hypoxemia R09.02 Time Spent (min) 55
--- NOTE | 2020-12-09 18:13 | Hospitalist Progress Note ---
Date of Service December 09, 2020 Assessment & Plan (1) Respiratory failure: Acute on chronic respiratory failure in setting of COVID-19 virus infection with recent post Covid pneumonitis. Now with worsening shortness of breath and worsening infiltrates. We will give trial of Lasix, holding p.o. Bumex. Feeling better with this. DC'd abx per pulm recs. Improved overall. (2) Bilateral pneumonia: Plan as above. (3) COVID-19 virus infection: Received 1 dose of Tocilizumab upon initial diagnosis in mid October followed by a course of remdesivir and dexamethasone. Cont supportive care measures. (4) CHF (congestive heart failure): compensated, cont Lasix IV BID, hold Bumex. Continue to monitor daily weights, strict I's and O's and low-salt diet (5) Anemia: Multifactorial in setting of multiple comorbidities and multiple recent hospitalizations. No paige bleeding or acute blood loss. Trend CBC and transfuse if needed. (6) Diabetes mellitus, type II: Currently holding outpatient regimen of insulin and utilizing weight-based multi daily dose insulin schedule in the hospital.Most recent A1c is 7.1 on 11/30/2020 (7) Depression: Patient noted to be on Cymbalta and sertraline. Kept Cymbalta in place and drop sertraline to avoid any serotonin syndrome. Will need to discuss this and optimize him prior to discharge. (8) Hypomagnesemia: Replace and repeat in a.m. (9) DVT prophylaxis: Lovenox Full code Disposition-back to [facility] for additional inpatient rehab once medically stable. Neha Mittal DO [facility] Hospitalist Admission and Anticipated Discharge Date Admission Date: December 08, 2020 Subjective 65 yo COVID pneumonitis patient admitted with worsening SOB and worsening pulmonary infiltrates. afebrile, no cough, chills or other issues reports his breathing is improved. Review of Systems Review of Systems: All systems reviewed & are unremarkable except as noted in Subjective Physical Exam Physical Exam: CONSTITUTIONAL: obese, vitals as above, generally NAD EYES: normal conjunctivae, no scleral icterus ENT: external ear and nose normal, MMM RESPIRATORY: clear to auscultation bilaterally, no crackles, rales or wheezes, normal respiratory effort CARDIOVASCULAR: regular rate and rhythm, S1 and 2 heard without murmurs, gallop s or rubs, no JVD, no peripheral edema GASTROINTESTINAL: soft, nontender, nondistended MUSCULOSKELETAL: generalized weakness, cannot sit up on his own SKIN: warm and dry NEUROLOGIC: CN 2-12 grossly intact, normal cognition, normal speech, no gross focal deficits. PSYCHIATRIC: alert cooperative and oriented to person, place and time. Results & Data Results & Data ([facility]) Vital Signs (Past 12 Hours) Vital Signs Temp Pulse Pulse Resp BP Pulse Ox 12/09/20 16:13 20 146/67 H 94 12/09/20 15:22 36.4 C L 70 20 129/74 96 12/09/20 11:34 36.4 C L 77 20 145/73 H 90 12/09/20 11:04 69 12/09/20 08:38 36.5 C 80 20 161/112 H Laboratory Results Short CBC 12/09/20 Range/Units 05:54 WBC 6.28 (4.8-10.8) K/uL Hgb 9.3 L (14.0-18.0) g/dL Hct 28.6 L (42-52) % Plt Count 147 (130-400) K/uL BMP 12/09/20 05:54 Sodium 138 Potassium 3.6 Chloride 102 Carbon Dioxide 31 BUN 20 H Creatinine 0.91 Glucose 113 H Calcium 9.9 Medications Administered Current Inpatient Medications Acetaminophen (Acetaminophen 325 Mg Tab) 650 mg PO Q4H PRN PRN Reason: Pain or Fever Stop: 01/07/21 21:42 Amlodipine Besylate (Amlodipine Besylate 5 Mg Tab) 10 mg PO DAILY ZOHAIB Stop: 01/08/21 08:59 Last Admin: 12/09/20 08:17 Dose: 10 mg Documented by: Atorvastatin Calcium (Atorvastatin 40 Mg Tab) 40 mg PO HS ZOHAIB Stop: 01/07/21 21:42 Last Admin: 12/08/20 22:48 Dose: 40 mg Documented by: Carvedilol (Carvedilol 12.5 Mg Tab) 12.5 mg PO BIDM ZOHAIB Stop: 01/08/21 07:59 Last Admin: 12/09/20 17:52 Dose: 12.5 mg Documented by: Dextrose (Dextrose 50% 50 Ml Syringe) 25 - 50 ml IV UD PRN; Protocol PRN Reason: Hypoglycemia Protocol Stop: 01/07/21 21:42 Docusate Sodium (Docusate Sodium 100 Mg Cap) 100 mg PO BID PRN PRN Reason: Constipation Stop: 01/07/21 21:42 Duloxetine HCl (Duloxetine Hcl 60 Mg Cap) 60 mg PO DAILY [facility] Stop: 01/08/21 08:59 Last Admin: 12/09/20 08:17 Dose: 60 mg Documented by: Enoxaparin Sodium (Enoxaparin Inj 40 Mg/0.4 Ml Syr) 40 mg SQ Q12H ZOHAIB Stop: 01/07/21 21:59 Last Admin: 12/09/20 08:18 Dose: 40 mg Documented by: Gabapentin (Gabapentin 300 Mg Cap) 300 mg PO HS ZOHAIB Stop: 01/07/21 21:42 Last Admin: 12/08/20 22:48 Dose: 300 mg Documented by: Glucagon (Glucagon For Inj 1 Mg Vial) 1 mg SQ UD PRN; Protocol PRN Reason: Hypoglycemia Protocol Stop: 01/07/21 21:42 Glucose (Glucose 10 Tabs/Tube) 4 - 8 tabs PO UD PRN; Protocol PRN Reason: Hypoglycemia Protocol Stop: 01/07/21 21:42 Glucose (Glucose 40% Gel 15 Gm Tube) 15 - 30 gm PO UD PRN; Protocol PRN Reason: Hypoglycemia Protocol Stop: 01/07/21 21:42 Heparin Sodium (Beef Lung) (Heparin 10 Unit/Ml 5 Ml Flush) 5 ml FLUSH PRN PRN PRN Reason: Flush Stop: 01/08/21 15:47 Furosemide 40 mg/ Syringe 4 mls @ 4 mls/min IV BIDM [facility] Stop: 01/08/21 07:59 Last Admin: 12/09/20 17:52 Dose: 4 mls/min Documented by: Cefepime HCl 2,000 mg/ Syringe 20 mls @ 5 mls/min IV Q8H [facility]; Protocol Stop: 12/16/20 01:59 Last Admin: 12/09/20 17:54 Dose: 5 mls/min Documented by: Insulin Aspart (Insulin Aspart 100 Units/Ml 3 Ml Pen) 0 units SC ACHS [facility] Stop: 01/07/21 21:59 Last Admin: 12/09/20 17:40 Dose: 8 units Documented by: Insulin Glargine (Insulin Glargine Solostar 100 Units/Ml 3 Ml Pen) 25 units SC BID [facility] Stop: 01/07/21 21:59 Last Admin: 12/09/20 08:35 Dose: 25 units Documented by: Magnesium Hydroxide (Magnesium Hydroxide Susp 30 Ml Udc) 30 ml PO DAILY PRN PRN Reason: Constipation Stop: 01/07/21 21:42 Miscellaneous (Carbohydrates For Hypoglycemia ) 15 - 30 gm PO UD PRN PRN Reason: Hypoglycemia Protocol Stop: 01/07/21 21:42 Miscellaneous Information (Cefepime Consult Active) 1 ea N/A UD PRN PRN Reason: Consult Stop: 01/07/21 20:46 Montelukast Sodium (Montelukast Sodium 10 Mg Tablet) 10 mg PO HS ZOHAIB Stop: 01/07/21 21:42 Last Admin: 12/08/20 22:48 Dose: 10 mg Documented by: Ondansetron HCl (Ondansetron Inj 2 Mg/Ml 2 Ml Vial) 4 mg IV Q6H PRN PRN Reason: Nausea Stop: 01/07/21 21:42 Pantoprazole Sodium (Pantoprazole 40 Mg Tab) 40 mg PO DAILY ZOHAIB Stop: 01/08/21 08:59 Last Admin: 12/09/20 08:17 Dose: 40 mg Documented by: Polyethylene Glycol (Polyethylene (Miralax) 17 Gm Pack) 17 gm PO DAILY PRN PRN Reason: Constipation Stop: 01/07/21 21:42 Potassium Chloride (Potassium Chloride Crtab 20 Meq Tabcr) 20 meq PO DAILY ZOHAIB Stop: 01/08/21 08:59 Last Admin: 12/09/20 08:18 Dose: 20 meq Documented by: Tamsulosin HCl (Tamsulosin Hcl 0.4 Mg Cap) 0.8 mg PO DAILY ZOHAIB Stop: 01/08/21 08:59 Last Admin: 12/09/20 08:17 Dose: 0.8 mg Documented by: Umeclidinium/Vilanterol (Umeclidinium/Vilanterol 62.5/25mcg 7 Puffs/Inhaler) 1 puffs INH DAILY ZOHAIB Stop: 01/08/21 08:59 Last Admin: 12/09/20 08:18 Dose: 1 puffs Documented by: Vitamin D (Cholecalciferol 1,000 Units 25 Mcg Tab) 2,000 units PO DAILY ZOHAIB Stop: 01/08/21 08:59 Last Admin: 12/09/20 08:17 Dose: 2,000 units Documented by: (1) CHF (congestive heart failure) Heart failure chronicity: acute on chronic Heart failure type: unspecified Qualified Code(s): I50.9 - Heart failure, unspecified (2) Bilateral pneumonia Lung location: lower lobe of lung Pneumonia type: due to unspecified organism Qualified Code(s): J18.9 - Pneumonia, unspecified organism
[2020-12-09] MEDS: ATORVASTATIN 40 MG TAB PO SCH (20:58)
[2020-12-09] MEDS: GABAPENTIN 300 MG CAP PO SCH (20:58)
[2020-12-09] MEDS: MONTELUKAST SODIUM 10 MG TABLET PO SCH (20:58)
[2020-12-10] MEDS ORDERED: VANCOMYCIN TROUGH ONE (05:30)
[2020-12-10 07:31] LABS: BUN Creatinine Ratio 18.3 (10-20); Calcium 9.3 mg/dl (8.5-10.1); Creatinine Clr Calc Pharmacy 96.3 ml/min; Est GFR (African American) 73.4 ml/min; Est GFR (Non-African American) 63.3 ml/min; Magnesium 1.9 mg/dl (1.8-2.4); Potassium 3.1 mmol/L (3.5-5.1)
[2020-12-10] MEDS: INSULIN ASPART 100 UNITS/ML 3 ML PEN SC SCH ×4 (08:34→21:10)
[2020-12-10] MEDS: amLODIPine BESYLATE 5 MG TAB PO SCH (08:35)
[2020-12-10] MEDS: carvediloL 12.5 MG TAB PO SCH (08:35)
[2020-12-10] MEDS: CHOLECALCIFEROL 1,000 UNITS 25 MCG TAB PO SCH (08:35)
[2020-12-10] MEDS: FUROSEMIDE 40 MG in SYRINGE 0 ML IV SCH ×2 (08:35→17:16)
[2020-12-10] MEDS: INSULIN GLARGINE SOLOSTAR 100 UNITS/ML 3 ML PEN SC SCH ×2 (08:36→21:13)
[2020-12-10] MEDS: DULoxetine HCL 60 MG CAP PO SCH (08:36)
[2020-12-10] MEDS: TAMSULOSIN HCL 0.4 MG CAP PO SCH (08:38)
[2020-12-10] MEDS: POTASSIUM CHLORIDE CRTAB 20 MEQ TABCR PO SCH ×3 (08:38→15:50)
[2020-12-10] MEDS: PANTOprazole 40 MG TAB PO SCH (08:38)
[2020-12-10] MEDS: ENOXAPARIN INJ 40 MG/0.4 ML SYR SQ SCH ×2 (08:39→19:56)
[2020-12-10] MEDS: UMECLIDINIUM/VILANTEROL 62.5/25MCG 7 PUFFS/INHALER INH SCH (08:39)
--- NOTE | 2020-12-10 09:06 | Pulmonology Progress Note ---
Date of Service December 10, 2020 Assessment & Plan (1) Abnormal CT scan of lung: (2) Respiratory failure: (3) Dyspnea: (4) Hypoxemia: Impression: 65-year-old male diagnosed with Covid back in October and aggressively treated. He has some fibrotic lung disease but return to the emergency room due to what is described as shortness of breath and increased work of breathing. CT scan showed multifocal groundglass opacities. The differential would include atypical pulmonary edema, pulmonary hemorrhage, hypoventilatory/atelectatic changes. His procalcitonin has been negative. Recommendations: 1. Dyspnea: Multifactorial due to combinations of anemia, obesity, deconditioning, potential restrictive lung disease due to body habitus, and fibrotic changes from Covid. 2. The patient does have some mild groundglass opacities. I suspect these represent atypical pulmonary edema in the setting of normal procalcitonin, elevated BNP, and afebrile status. He was diuresed about 700 cc yesterday with slight increase in his serum creatinine. Follow-up imaging in 4 to 6 weeks recommended 3. Patient needs to improve his functional status. Recommend that he be out of bed to chair as tolerated and start to ambulate. Unclear if PT and OT may be an option for this patient. 4. Probable sleep disordered breathing: This may be the etiology of increasing his oxygen requirement overnight. He is amenable to a trial of auto CPAP so we will pursue that tonight and see how he does. Outpatient polysomnography recommended. 5. The significance of an elevated CRP is unclear in this patient. Would follow clinically at this point in time. 6. He continues to demonstrate significant hypertension. Increased carvedilol We will continue to follow with you. Feel free to contact us with questions. Admission and Anticipated Discharge Date Admission Date: December 08, 2020 Subjective Patient seen and examined. Discussed with patient and nurse at bedside. He is doing reasonably well clinically. According to nursing, they did have to increase his oxygen at night. Patient reports that he was advised that he may need CPAP previously. He cannot recall having undergone polysomnography previously. He is amenable to a trial of nocturnal noninvasive positive pressure ventilation. He is unclear if he can tolerate the mask. Review of Systems Review of Systems: All systems reviewed & are unremarkable except as noted in HPI & below Physical Exam Constitutional: + morbidly obese Neck: trachea midline, no thyromegaly Respiratory: normal respiratory effort; no respiratory distress and no labored breathing Auscultation: + rales; no wheezes Cardiovascular: RRR, no murmur, no edema Gastrointestinal (Abdomen): normal bowel sounds, soft, nontender, no hepatosplenomegaly Musculoskeletal: Extremities: extremities normal to inspection Skin: no rashes, warm and dry Lymphatic: no cervical lymphadenopathy Results & Data Results & Data ([facility]) Vital Signs (Past 12 Hours) Vital Signs Temp Pulse Pulse Resp BP Pulse Ox 12/10/20 07:00 36.8 C 75 20 148/78 H 96 12/10/20 06:32 91 12/10/20 05:06 87 L 12/10/20 03:11 37.0 C 75 20 142/72 H 92 12/10/20 00:57 72 12/09/20 23:07 37.0 C 73 20 148/78 H 92 Laboratory Results 12/09/20 05:54 12/10/20 05:48 Diagnostic Findings No new imaging PG Care Time/CCT Total # of Minutes Spent Total Time Spent with Patient: Total time spent is greater than 50% in coordination of care (as documented) at patient's floor/unit and/or counseling patient: Coding Level of Care Code 17344 Subseq Hosp Care Lvl [address] scan of lung R91.8 Respiratory failure J96.90 Dyspnea R06.00 Hypoxemia R09.02
[2020-12-10] MEDS: traMADol HCL 50 MG TABLET PO PRN (14:24)
--- NOTE | 2020-12-10 14:37 | Hospitalist Progress Note ---
Date of Service December 10, 2020 Assessment & Plan (1) Respiratory failure: Acute on chronic respiratory failure in setting of COVID-19 virus infection with recent post Covid pneumonitis. Now with worsening shortness of breath and worsening infiltrates. Cont with Lasix trial, holding p.o. Bumex. Appears to be doing better overall. Cont to monitor renal function and lytes closely. Motivate to move out of bed as much as able. PT/OT daily. No abx or steroids indicated at this time. (2) Bilateral pneumonia: Resolving, he has already received full course of antibiotics and steroids with no further indication for that now. Plan as above. (3) COVID-19 virus infection: Received 1 dose of Tocilizumab upon initial diagnosis in mid October followed by a course of remdesivir and dexamethasone. Cont supportive care measures. (4) CHF (congestive heart failure): compensated, cont Lasix IV BID, hold Bumex. Continue to monitor daily weights, strict I's and O's and low-salt diet (5) Anemia: Multifactorial in setting of multiple comorbidities and multiple recent hospitalizations. No paige bleeding or acute blood loss. Trend CBC and transfuse if needed. (6) Diabetes mellitus, type II: Currently holding outpatient regimen of insulin and utilizing weight-based multi daily dose insulin schedule in the hospital.Most recent A1c is 7.1 on 11/30/2020 (7) Depression: Patient noted to be on Cymbalta and sertraline. Kept Cymbalta in place and drop sertraline to avoid any serotonin syndrome. Will need to discuss this and optimize him prior to discharge. (8) Hypomagnesemia: Replace and repeat in a.m. (9) DVT prophylaxis: Lovenox Full code [facility] once medically stable. Neha Mittal DO [facility] Hospitalist Admission and Anticipated Discharge Date Admission Date: December 08, 2020 Subjective 65 yo COVID pneumonitis patient admitted with worsening SOB and worsening pulmonary infiltrates. afebrile, no cough, chills or other issues reports his breathing is improved appears very unmotivated in his responses-uses alot of sarcasm. Appears as if he is doing better, but sarcasm makes this less clear. Review of Systems Review of Systems: All systems reviewed & are unremarkable except as noted in Subjective Physical Exam Physical Exam: CONSTITUTIONAL: obese, vitals as above, generally NAD EYES: normal conjunctivae, no scleral icterus ENT: external ear and nose normal, MMM RESPIRATORY: clear to auscultation bilaterally, no crackles, rales or wheezes, normal respiratory effort CARDIOVASCULAR: regular rate and rhythm, S1 and 2 heard without murmurs, gallops or rubs, no JVD, no peripheral edema GASTROINTESTINAL: soft, nontender, nondistended MUSCULOSKELETAL: generalized weakness, cannot sit up on his own SKIN: warm and dry NEUROLOGIC: CN 2-12 grossly intact, normal cognition, normal speech, no gross focal deficits. PSYCHIATRIC: alert cooperative and oriented to person, place and time. Results & Data Results & Data ([facility]) Vital Signs (Past 12 Hours) Vital Signs Temp Pulse Resp BP Pulse Ox 12/10/20 11:52 36.6 C 87 18 135/82 95 12/10/20 07:00 36.8 C 75 20 148/78 H 96 12/10/20 06:32 91 12/10/20 05:06 87 L 12/10/20 03:11 37.0 C 75 20 142/72 H 92 Laboratory Results [facility] 12/10/20 05:48 Sodium 137 Potassium 3.1 L Chloride 102 Carbon Dioxide 29 BUN 22 H Creatinine 1.21 D Glucose 95 Calcium 9.3 Medications Administered Current Inpatient Medications Acetaminophen (Acetaminophen 325 Mg Tab) 650 mg PO Q4H PRN PRN Reason: Pain or Fever Stop: 01/07/21 21:42 Amlodipine Besylate (Amlodipine Besylate 5 Mg Tab) 10 mg PO DAILY ZOHAIB Stop: 01/08/21 08:59 Last Admin: 12/10/20 08:35 Dose: 10 mg Documented by: Atorvastatin Calcium (Atorvastatin 40 Mg Tab) 40 mg PO HS ZOHAIB Stop: 01/07/21 21:42 Last Admin: 12/09/20 20:58 Dose: 40 mg Documented by: Carvedilol (Carvedilol 25 Mg Tab) 25 mg PO BIDM ZOHAIB Stop: 01/09/21 16:59 Dextrose (Dextrose 50% 50 Ml Syringe) 25 - 50 ml IV UD PRN; Protocol PRN Reason: Hypoglycemia Protocol Stop: 01/07/21 21:42 Docusate Sodium (Docusate Sodium 100 Mg Cap) 100 mg PO BID PRN PRN Reason: Constipation Stop: 01/07/21 21:42 Duloxetine HCl (Duloxetine Hcl 60 Mg Cap) 60 mg PO DAILY ZOHAIB Stop: 01/08/21 08:59 Last Admin: 12/10/20 08:36 Dose: 60 mg Documented by: Enoxaparin Sodium (Enoxaparin Inj 40 Mg/0.4 Ml Syr) 40 mg SQ Q12H ZOHAIB Stop: 01/07/21 21:59 Last Admin: 12/10/20 08:39 Dose: 40 mg Documented by: Gabapentin (Gabapentin 300 Mg Cap) 300 mg PO HS ZOHAIB Stop: 01/07/21 21:42 Last Admin: 12/09/20 20:58 Dose: 300 mg Documented by: Glucagon (Glucagon For Inj 1 Mg Vial) 1 mg SQ UD PRN; Protocol PRN Reason: Hypoglycemia Protocol Stop: 01/07/21 21:42 Glucose (Glucose 10 Tabs/Tube) 4 - 8 tabs PO UD PRN; Protocol PRN Reason: Hypoglycemia Protocol Stop: 01/07/21 21:42 Glucose (Glucose 40% Gel 15 Gm Tube) 15 - 30 gm PO UD PRN; Protocol PRN Reason: Hypoglycemia Protocol Stop: 01/07/21 21:42 Heparin Sodium (Beef Lung) (Heparin 10 Unit/Ml 5 Ml Flush) 5 ml FLUSH PRN PRN PRN Reason: Flush Stop: 01/08/21 15:47 Furosemide 40 mg/ Syringe 4 mls @ 4 mls/min IV BIDM ZOHAIB Stop: 01/08/21 07:59 Last Admin: 12/10/20 08:35 Dose: 4 mls/min Documented by: Insulin Aspart (Insulin Aspart 100 Units/Ml 3 Ml Pen) 0 units SC ACHS ZOHAIB Stop: 01/07/21 21:59 Last Admin: 12/10/20 11:58 Dose: 5 units Documented by: Insulin Glargine (Insulin Glargine Solostar 100 Units/Ml 3 Ml Pen) 25 units SC BID ZOHAIB Stop: 01/07/21 21:59 Last Admin: 12/10/20 08:36 Dose: 25 units Documented by: Magnesium Hydroxide (Magnesium Hydroxide Susp 30 Ml Udc) 30 ml PO DAILY PRN PRN Reason: Constipation Stop: 01/07/21 21:42 Miscellaneous (Carbohydrates For Hypoglycemia ) 15 - 30 gm PO UD PRN PRN Reason: Hypoglycemia Protocol Stop: 01/07/21 21:42 Montelukast Sodium (Montelukast Sodium 10 Mg Tablet) 10 mg PO HS ZOHAIB Stop: 01/07/21 21:42 Last Admin: 12/09/20 20:58 Dose: 10 mg Documented by: Ondansetron HCl (Ondansetron Inj 2 Mg/Ml 2 Ml Vial) 4 mg IV Q6H PRN PRN Reason: Nausea Stop: 01/07/21 21:42 Pantoprazole Sodium (Pantoprazole 40 Mg Tab) 40 mg PO DAILY ZOHAIB Stop: 01/08/21 08:59 Last Admin: 12/10/20 08:38 Dose: 40 mg Documented by: Polyethylene Glycol (Polyethylene (Miralax) 17 Gm Pack) 17 gm PO DAILY PRN PRN Reason: Constipation Stop: 01/07/21 21:42 Potassium Chloride (Potassium Chloride Crtab 20 Meq Tabcr) 20 meq PO DAILY ZOHAIB Stop: 01/08/21 08:59 Last Admin: 12/10/20 08:38 Dose: 20 meq Documented by: Potassium Chloride (Potassium Chloride Crtab 20 Meq Tabcr) 40 meq PO Q6H ZOHAIB Stop: 12/10/20 15:31 Last Admin: 12/10/20 09:46 Dose: 40 meq Documented by: Tamsulosin HCl (Tamsulosin Hcl 0.4 Mg Cap) 0.8 mg PO DAILY ZOHAIB Stop: 01/08/21 08:59 Last Admin: 12/10/20 08:38 Dose: 0.8 mg Documented by: Tramadol HCl (Tramadol Hcl 50 Mg Tablet) 50 mg PO Q4H PRN PRN Reason: Pain Stop: 01/09/21 14:08 Last Admin: 12/10/20 14:24 Dose: 50 mg Documented by: Umeclidinium/Vilanterol (Umeclidinium/Vilanterol 62.5/25mcg 7 Puffs/Inhaler) 1 puffs INH DAILY ZOHAIB Stop: 01/08/21 08:59 Last Admin: 12/10/20 08:39 Dose: 1 puffs Documented by: Vitamin D (Cholecalciferol 1,000 Units 25 Mcg Tab) 2,000 units PO DAILY ZOHAIB Stop: 01/08/21 08:59 Last Admin: 12/10/20 08:35 Dose: 2,000 units Documented by: (1) CHF (congestive heart failure) Heart failure chronicity: acute on chronic Heart failure type: unspecified Qualified Code(s): I50.9 - Heart failure, unspecified (2) Bilateral pneumonia Lung location: lower lobe of lung Pneumonia type: due to unspecified organism Qualified Code(s): J18.9 - Pneumonia, unspecified organism
[2020-12-10] MEDS: ACETAMINOPHEN 325 MG TAB PO PRN (15:53)
[2020-12-10] MEDS: carvediloL 25 MG TAB PO SCH (17:16)
[2020-12-10] MEDS: MONTELUKAST SODIUM 10 MG TABLET PO SCH (19:57)
[2020-12-10] MEDS: ATORVASTATIN 40 MG TAB PO SCH (19:57)
[2020-12-10] MEDS: GABAPENTIN 300 MG CAP PO SCH (19:57)
[2020-12-11] MEDS: INSULIN ASPART 100 UNITS/ML 3 ML PEN SC SCH ×4 (08:16→21:07)
[2020-12-11] MEDS: FUROSEMIDE 40 MG in SYRINGE 0 ML IV SCH (08:17)
[2020-12-11] MEDS: carvediloL 25 MG TAB PO SCH ×2 (08:18→16:54)
[2020-12-11] MEDS: CHOLECALCIFEROL 1,000 UNITS 25 MCG TAB PO SCH (08:18)
[2020-12-11] MEDS: amLODIPine BESYLATE 5 MG TAB PO SCH (08:18)
[2020-12-11] MEDS: INSULIN GLARGINE SOLOSTAR 100 UNITS/ML 3 ML PEN SC SCH ×2 (08:19→21:11)
[2020-12-11] MEDS: DULoxetine HCL 60 MG CAP PO SCH (08:19)
[2020-12-11] MEDS: PANTOprazole 40 MG TAB PO SCH (08:20)
[2020-12-11] MEDS: UMECLIDINIUM/VILANTEROL 62.5/25MCG 7 PUFFS/INHALER INH SCH (08:20)
[2020-12-11] MEDS: TAMSULOSIN HCL 0.4 MG CAP PO SCH (08:20)
[2020-12-11] MEDS: POTASSIUM CHLORIDE CRTAB 20 MEQ TABCR PO SCH (08:28)
--- NOTE | 2020-12-11 09:28 | Pulmonology Progress Note ---
Date of Service December 11, 2020 Assessment & Plan (1) Abnormal CT scan of lung: (2) Respiratory failure: (3) Dyspnea: (4) Hypoxemia: Impression: 65-year-old male diagnosed with Covid back in October and aggressively treated. He has some fibrotic lung disease but return to the emergency room due to what is described as shortness of breath and increased work of breathing. CT scan showed multifocal groundglass opacities. The differential would include atypical pulmonary edema, pulmonary hemorrhage, hypoventilatory/atelectatic changes. His procalcitonin has been negative. Recommendations: 1. Dyspnea: Multifactorial due to combinations of anemia, obesity, deconditioning, potential restrictive lung disease due to body habitus, and fibrotic changes from Covid. Patient does not appear particularly motivated to try and improve. He needs to get up out of bed and start to mobilize. 2. The patient does have some mild groundglass opacities. I suspect these represent atypical pulmonary edema in the setting of normal procalcitonin, elevated BNP, and afebrile status. Continue diuretics as tolerated. Follow-up imaging in 4 to 6 weeks recommended 3. Patient needs to improve his functional status. Recommend that he be out of bed to chair as tolerated and start to ambulate. Unclear if PT and OT may be an option for this patient. 4. Probable sleep disordered breathing: Patient declined CPAP/BiPAP last night. Outpatient polysomnography may be appropriate. 5. Wean oxygen as tolerated. 6. He continues to demonstrate significant hypertension. Target blood pressures for diastolic dysfunction would be less than 125/75. Per primary provider. Not much else to add for this patient unfortunately at this point in time as he is declined the majority of interventions that we have recommended. Please feel free to contact us if we can be of additional assistance Admission and Anticipated Discharge Date Admission Date: December 08, 2020 Subjective Patient seen and examined. EMR reviewed. The patient declined BiPAP or CPAP last night. He states his breathing is about the same. When I asked him if he wants to get out of bed he says not now. He is complaining of some pain issues. Review of Systems Review of Systems: All systems reviewed & are unremarkable except as noted in HPI & below Physical Exam Constitutional: + morbidly obese Neck: trachea midline, no thyromegaly Respiratory: normal respiratory effort; no respiratory distress and no labored breathing Auscultation: + rales; no wheezes Cardiovascular: RRR, no murmur, no edema Gastrointestinal (Abdomen): normal bowel sounds, soft, nontender, no hepatosplenomegaly Musculoskeletal: Extremities: extremities normal to inspection Skin: no rashes, warm and dry Lymphatic: no cervical lymphadenopathy Results & Data Results & Data ([facility]) Vital Signs (Past 12 Hours) Vital Signs Temp Pulse Pulse Resp BP Pulse Ox 12/11/20 07:01 36.7 C 70 19 153/85 H 96 12/11/20 03:34 36.7 C 63 20 166/82 H 97 12/10/20 23:16 71 12/10/20 23:14 37.0 C 68 24 157/90 H 93 Laboratory Results 12/09/20 05:54 12/10/20 05:48 Diagnostic Findings No new imaging PG Care Time/CCT Total # of Minutes Spent Total Time Spent with Patient: Total time spent is greater than 50% in coordination of care (as documented) at patient's floor/unit and/or counseling patient: Coding Level of Care Code 11245 Subseq Hosp Care Lvl [address] scan of lung R91.8 Respiratory failure J96.90 Dyspnea R06.00 Hypoxemia R09.02
[2020-12-11 10:09] LABS: Hematocrit (blood only) 26.3 % (42-52); Hemoglobin 8.4 g/dL (14.0-18.0); Mean Corpuscular Hgb Conc 31.9 g/dL (32-36); Mean Corpuscular Volume 90.7 fL (80-100); Mean Platelet Volume 9.2 fL (7.4-10.4); Platelet Count 164 K/uL (130-400); RDW Coefficient of Variation 15.5 % (11.5-14.5); RDW Standard Deviation 51.5 fL (36.4-46.3); White Blood Count 6.04 K/uL (4.8-10.8)
[2020-12-11 10:25] LABS: BUN Creatinine Ratio 24.3 (10-20); Calcium 9.5 mg/dl (8.5-10.1); Creatinine Clr Calc Pharmacy 117.1 ml/min; Est GFR (African American) 92.4 ml/min; Est GFR (Non-African American) 79.7 ml/min; Magnesium 1.8 mg/dl (1.8-2.4); Potassium 3.5 mmol/L (3.5-5.1)
[2020-12-11] MEDS: ENOXAPARIN INJ 40 MG/0.4 ML SYR SQ SCH ×2 (11:13→21:13)
[2020-12-11] MEDS: traMADol HCL 50 MG TABLET PO PRN (15:21)
[2020-12-11] MEDS ORDERED: IBUPROFEN 800 MG TAB PO STA (15:42)
--- NOTE | 2020-12-11 15:47 | Hospitalist Progress Note ---
Date of Service December 11, 2020 Assessment & Plan (1) Respiratory failure: Acute on chronic respiratory failure in setting of COVID-19 virus infection with recent post Covid pneumonitis. Now with worsening shortness of breath and worsening infiltrates. Cont with Lasix trial, holding p.o. Bumex. Appears to be doing better overall. Cont to monitor renal function and lytes closely. Motivate to move out of bed as much as able. PT/OT daily. No abx or steroids indicated at this time. (2) Bilateral pneumonia: Resolving, he has already received full course of antibiotics and steroids with no further indication for that now. Plan as above. (3) COVID-19 virus infection: Received 1 dose of Tocilizumab upon initial diagnosis in mid October followed by a course of remdesivir and dexamethasone. Cont supportive care measures. (4) Flexor tenosynovitis of finger: Ibuprofen PRN, if pain becomes significant may consider contacting ortho for a splint/injection therapy. (5) CHF (congestive heart failure): compensated, cont Lasix, hold Bumex. Continue to monitor daily weights, strict I's and O's and low-salt diet (6) Anemia: Multifactorial in setting of multiple comorbidities and multiple recent hospitalizations. No paige bleeding or acute blood loss. Trend CBC and transf use if needed. (7) Diabetes mellitus, type II: Currently holding outpatient regimen of insulin and utilizing weight-based multi daily dose insulin schedule in the hospital.Most recent A1c is 7.1 on 11/30/2020 (8) Depression: Patient noted to be on Cymbalta and sertraline. Kept Cymbalta in place and drop sertraline to avoid any serotonin syndrome. Will need to discuss this and optimize him prior to discharge. (9) Hypomagnesemia: improved. (10) DVT prophylaxis: Lovenox Full code Disposition-back to [facility] for additional inpatient rehab once medically stable. Neha Mittal DO [facility] Hospitalist Admission and Anticipated Discharge Date Admission Date: December 08, 2020 Subjective 65 yo COVID pneumonitis patient admitted with worsening SOB and worsening pulmonary infiltrates. afebrile, no cough, chills or other issues reports his breathing is improved flexed right hand -cannot open it and tenderness associated with this tolerating PO Getting OOB to chair Review of Systems Review of Systems: All systems reviewed & are unremarkable except as noted in Subjective Physical Exam Physical Exam: CONSTITUTIONAL: obese, vitals as above, generally NAD EYES: normal conjunctivae, no scleral icterus ENT: external ear and nose normal, MMM RESPIRATORY: clear to auscultation bilaterally, no crackles, rales or wheezes, normal respiratory effort CARDIOVASCULAR: regular rate and rhythm, S1 and 2 heard without murmurs, gallops or rubs, no JVD, no peripheral edema GASTROINTESTINAL: soft, nontender, nondistended MUSCULOSKELETAL: generalized weakness, cannot sit up on his own. Flexed fingers, cannot spread out fingers or open hand fully. SKIN: warm and dry NEUROLOGIC: CN 2-12 grossly intact, normal cognition, normal speech, no gross focal deficits. PSYCHIATRIC: alert cooperative and oriented to person, place and time. Results & Data Results & Data ([facility]) Vital Signs (Past 12 Hours) Vital Signs Temp Pulse Resp BP Pulse Ox 12/11/20 11:55 36.8 C 68 18 166/82 H 96 12/11/20 07:01 36.7 C 70 19 153/85 H 96 Laboratory Results Short CBC 12/11/20 Range/Units 09:55 WBC 6.04 (4.8-10.8) K/uL Hgb 8.4 L (14.0-18.0) g/dL Hct 26.3 L (42-52) % Plt Count 164 (130-400) K/uL BMP 12/11/20 09:55 Sodium 138 Potassium 3.5 Chloride 102 Carbon Dioxide 30 BUN 24 H Creatinine 1.00 Glucose 152 H Calcium 9.5 Medications Administered Current Inpatient Medications Acetaminophen (Acetaminophen 325 Mg Tab) 650 mg PO Q4H PRN PRN Reason: Pain or Fever Stop: 01/07/21 21:42 Last Admin: 12/10/20 15:53 Dose: 650 mg Documented by: Amlodipine Besylate (Amlodipine Besylate 5 Mg Tab) 10 mg PO DAILY ZOHAIB Stop: 01/08/21 08:59 Last Admin: 12/11/20 08:18 Dose: 10 mg Documented by: Atorvastatin Calcium (Atorvastatin 40 Mg Tab) 40 mg PO HS [facility] Stop: 01/07/21 21:42 Last Admin: 12/10/20 19:57 Dose: 40 mg Documented by: Carvedilol (Carvedilol 25 Mg Tab) 25 mg PO BIDM ZOHAIB Stop: 01/09/21 16:59 Last Admin: 12/11/20 08:18 Dose: 25 mg Documented by: Dextrose (Dextrose 50% 50 Ml Syringe) 25 - 50 ml IV UD PRN; Protocol PRN Reason: Hypoglycemia Protocol Stop: 01/07/21 21:42 Docusate Sodium (Docusate Sodium 100 Mg Cap) 100 mg PO BID PRN PRN Reason: Constipation Stop: 01/07/21 21:42 Duloxetine HCl (Duloxetine Hcl 60 Mg Cap) 60 mg PO DAILY ZOHAIB Stop: 01/08/21 08:59 Last Admin: 12/11/20 08:19 Dose: 60 mg Documented by: Enoxaparin Sodium (Enoxaparin Inj 40 Mg/0.4 Ml Syr) 40 mg SQ Q12H ZOHAIB Stop: 01/07/21 21:59 Last Admin: 12/11/20 11:13 Dose: 40 mg Documented by: Gabapentin (Gabapentin 300 Mg Cap) 300 mg PO HS ZOHAIB Stop: 01/07/21 21:42 Last Admin: 12/10/20 19:57 Dose: 300 mg Documented by: Glucagon (Glucagon For Inj 1 Mg Vial) 1 mg SQ UD PRN; Protocol PRN Reason: Hypoglycemia Protocol Stop: 01/07/21 21:42 Glucose (Glucose 10 Tabs/Tube) 4 - 8 tabs PO UD PRN; Protocol PRN Reason: Hypoglycemia Protocol Stop: 01/07/21 21:42 Glucose (Glucose 40% Gel 15 Gm Tube) 15 - 30 gm PO UD PRN; Protocol PRN Reason: Hypoglycemia Protocol Stop: 01/07/21 21:42 Heparin Sodium (Beef Lung) (Heparin 10 Unit/Ml 5 Ml Flush) 5 ml FLUSH PRN PRN PRN Reason: Flush Stop: 01/08/21 15:47 Furosemide 40 mg/ Syringe 4 mls @ 4 mls/min IV DAILY ZOHAIB Stop: 01/11/21 08:59 Ibuprofen (Ibuprofen 800 Mg Tab) 800 mg PO NOW STA Stop: 12/11/20 15:43 Insulin Aspart (Insulin Aspart 100 Units/Ml 3 Ml Pen) 0 units SC ACHS ZOHAIB Stop: 01/07/21 21:59 Last Admin: 12/11/20 12:01 Dose: 14 units Documented by: Insulin Glargine (Insulin Glargine Solostar 100 Units/Ml 3 Ml Pen) 25 units SC BID ZOHAIB Stop: 01/07/21 21:59 Last Admin: 12/11/20 08:19 Dose: 25 units Documented by: Magnesium Hydroxide (Magnesium Hydroxide Susp 30 Ml Udc) 30 ml PO DAILY PRN PRN Reason: Constipation Stop: 01/07/21 21:42 Miscellaneous (Carbohydrates For Hypoglycemia ) 15 - 30 gm PO UD PRN PRN Reason: Hypoglycemia Protocol Stop: 01/07/21 21:42 Montelukast Sodium (Montelukast Sodium 10 Mg Tablet) 10 mg PO HS ZOHAIB Stop: 01/07/21 21:42 Last Admin: 12/10/20 19:57 Dose: 10 mg Documented by: Ondansetron HCl (Ondansetron Inj 2 Mg/Ml 2 Ml Vial) 4 mg IV Q6H PRN PRN Reason: Nausea Stop: 01/07/21 21:42 Pantoprazole Sodium (Pantoprazole 40 Mg Tab) 40 mg PO DAILY ZOHAIB Stop: 01/08/21 08:59 Last Admin: 12/11/20 08:20 Dose: 40 mg Documented by: Polyethylene Glycol (Polyethylene (Miralax) 17 Gm Pack) 17 gm PO DAILY PRN PRN Reason: Constipation Stop: 01/07/21 21:42 Potassium Chloride (Potassium Chloride Crtab 20 Meq Tabcr) 20 meq PO DAILY ZOHAIB Stop: 01/08/21 08:59 Last Admin: 12/11/20 08:28 Dose: 20 meq Documented by: Tamsulosin HCl (Tamsulosin Hcl 0.4 Mg Cap) 0.8 mg PO DAILY ZOHAIB Stop: 01/08/21 08:59 Last Admin: 12/11/20 08:20 Dose: 0.8 mg Documented by: Tramadol HCl (Tramadol Hcl 50 Mg Tablet) 50 mg PO Q4H PRN PRN Reason: Pain Stop: 01/09/21 14:08 Last Admin: 12/11/20 15:21 Dose: 50 mg Documented by: Umeclidinium/Vilanterol (Umeclidinium/Vilanterol 62.5/25mcg 7 Puffs/Inhaler) 1 puffs INH DAILY ZOHAIB Stop: 01/08/21 08:59 Last Admin: 12/11/20 08:20 Dose: 1 puffs Documented by: Vitamin D (Cholecalciferol 1,000 Units 25 Mcg Tab) 2,000 units PO DAILY ZOHAIB Stop: 01/08/21 08:59 Last Admin: 12/11/20 08:18 Dose: 2,000 units Documented by: (1) CHF (congestive heart failure) Heart failure chronicity: acute on chronic Heart failure type: unspecified Qualified Code(s): I50.9 - Heart failure, unspecified (2) Bilateral pneumonia Lung location: lower lobe of lung Pneumonia type: due to unspecified organism Qualified Code(s): J18.9 - Pneumonia, unspecified organism
[2020-12-11] MEDS: ATORVASTATIN 40 MG TAB PO SCH (21:05)
[2020-12-11] MEDS: GABAPENTIN 300 MG CAP PO SCH (21:06)
[2020-12-11] MEDS: MONTELUKAST SODIUM 10 MG TABLET PO SCH (21:07)
[2020-12-12] MEDS ORDERED: IBUPROFEN 600 MG TAB PO PRN (00:11)
[2020-12-12 05:53] LABS: Hematocrit (blood only) 25.1 % (42-52); Hemoglobin 8.2 g/dL (14.0-18.0); Mean Corpuscular Hemoglobin 29.1 pg (25-34); Mean Corpuscular Hgb Conc 32.7 g/dL (32-36); Mean Platelet Volume 9.5 fL (7.4-10.4); Platelet Count 185 K/uL (130-400); RDW Coefficient of Variation 15.6 % (11.5-14.5); RDW Standard Deviation 50.7 fL (36.4-46.3); Red Blood Count 2.82 M/uL (4.7-6.1); White Blood Count 6.77 K/uL (4.8-10.8)
[2020-12-12 06:16] LABS: BUN Creatinine Ratio 25.8 (10-20); Calcium 9.7 mg/dl (8.5-10.1); Creatinine Clr Calc Pharmacy 115.8 ml/min; Est GFR (African American) 91.3 ml/min; Est GFR (Non-African American) 78.8 ml/min; Magnesium 1.8 mg/dl (1.8-2.4); Potassium 3.9 mmol/L (3.5-5.1)
[2020-12-12] MEDS: INSULIN ASPART 100 UNITS/ML 3 ML PEN SC SCH ×4 (07:58→20:26)
[2020-12-12] MEDS: FUROSEMIDE 40 MG in SYRINGE 0 ML IV SCH (07:59)
[2020-12-12] MEDS: amLODIPine BESYLATE 5 MG TAB PO SCH (07:59)
[2020-12-12] MEDS: INSULIN GLARGINE SOLOSTAR 100 UNITS/ML 3 ML PEN SC SCH ×2 (07:59→20:28)
[2020-12-12] MEDS: carvediloL 25 MG TAB PO SCH ×2 (08:00→16:34)
[2020-12-12] MEDS: CHOLECALCIFEROL 1,000 UNITS 25 MCG TAB PO SCH (08:00)
[2020-12-12] MEDS: DULoxetine HCL 60 MG CAP PO SCH (08:00)
[2020-12-12] MEDS: UMECLIDINIUM/VILANTEROL 62.5/25MCG 7 PUFFS/INHALER INH SCH (08:00)
[2020-12-12] MEDS: PANTOprazole 40 MG TAB PO SCH (08:00)
[2020-12-12] MEDS: TAMSULOSIN HCL 0.4 MG CAP PO SCH (08:00)
[2020-12-12] MEDS: POTASSIUM CHLORIDE CRTAB 20 MEQ TABCR PO SCH (08:04)
[2020-12-12] MEDS: ENOXAPARIN INJ 40 MG/0.4 ML SYR SQ SCH ×2 (10:10→20:29)
--- NOTE | 2020-12-12 17:53 | Hospitalist Progress Note ---
Date of Service December 12, 2020 Assessment & Plan (1) Respiratory failure: Acute on chronic respiratory failure in setting of COVID-19 virus infection with recent post Covid pneumonitis. Now with worsening shortness of breath and worsening infiltrates. Has been on diuretics since admission and appears improved since that time. Work of breathing has improved. No indication for steroids or antibiotics at this time. Pulm has been following. Cont daily Lasix. (2) Bilateral pneumonia: Resolving, he has already received full course of antibiotics and steroids with no further indication for that now. Initial worsening dyspnea may have been related to atypical pulmonary edema in setting of covid pneumonitis which is improved after diuretics. (3) COVID-19 virus infection: Received 1 dose of Tocilizumab upon initial diagnosis in mid October followed by a course of remdesivir and dexamethasone. Cont supportive care measures. (4) Flexor tenosynovitis of finger: Ibuprofen PRN, if pain becomes significant may consider contacting ortho for a splint/injection therapy. (5) CHF (congestive heart failure): compensated, cont daily IV Lasix, hold Bumex. Continue to monitor daily weights, strict I's and O's and low-salt diet (6) Anemia: Multifactorial in setting of multiple comorbidities and multiple recent hospitalizations. No paige bleeding or acute blood loss. Trend CBC and transfuse if needed. (7) Diabetes mellitus, type II: Currently holding outpatient regimen of insulin and utilizing weight-based multi daily dose insulin schedule in the hospital. Most recent A1c is 7.1 on 11/30/2020 (8) Depression: Patient noted to be on Cymbalta and sertraline. Kept Cymbalta in place and drop sertraline to avoid any serotonin syndrome. Will need to discuss this and optimize him prior to discharge. (9) Hypomagnesemia: improved. (10) DVT prophylaxis: Lovenox Full code [facility]position-[facility] additional inpatient rehab once medically stable. Neha Mittal DO [facility] Hospitalist Admission and Anticipated Discharge Date Admission Date: December 08, 2020 Subjective 65 yo COVID pneumonitis patient admitted with worsening SOB and worsening pulmonary infiltrates. afebrile very difficult to get a history today as patient is agitated repeats every question states he has pain all over when asked any further questions he became more agitated and told examiner "If you suggest Tylneol Ill throw you out that window" Review of Systems Review of Systems: Other limited ROS as patient was very agitated and combative today Physical Exam Physical Exam: CONSTITUTIONAL: obese, vitals as above, generally agitated/aggressive EYES: normal conjunctivae, no scleral icterus ENT: external ear and nose normal, MMM RESPIRATORY: clear to auscultation bilaterally, no crackles, rales or wheezes, normal respiratory effort CARDIOVASCULAR: regular rate and rhythm, S1 and 2 heard without murmurs, gallops or rubs, no JVD, no peripheral edema GASTROINTESTINAL: not examined 2/2 agitation MUSCULOSKELETAL: generalized weakness, cannot sit up on his own. Flexed fingers, cannot spread out fingers or open hand fully. SKIN: warm and dry NEUROLOGIC: CN 2-12 grossly intact, normal cognition, normal speech, no gross focal deficits. PSYCHIATRIC: alert Results & Data Results & Data ([facility]) Vital Signs (Past 12 Hours) Vital Signs Temp Pulse Pulse Resp BP Pulse Ox Pulse Ox 12/12/20 16:00 60 12/12/20 15:18 36.5 C 65 20 150/78 H 97 12/12/20 11:45 12/12/20 11:25 36.5 C 68 19 120/74 100 12/12/20 08:50 56 L 97 12/12/20 07:30 36.5 C 68 21 161/80 H 96 Pulse Ox Pulse Ox 12/12/20 16:00 12/12/20 15:18 12/12/20 11:45 88 L 75 L 12/12/20 11:25 12/12/20 08:50 12/12/20 07:30 Laboratory Results Short CBC 12/12/20 Range/Units 05:31 WBC 6.77 (4.8-10.8) K/uL Hgb 8.2 L (14.0-18.0) g/dL Hct 25.1 L (42-52) % Plt Count 185 (130-400) K/uL BMP 12/12/20 05:31 Sodium 139 Potassium 3.9 Chloride 105 Carbon Dioxide 30 BUN 26 H Creatinine 1.01 Glucose 102 H Calcium 9.7 Medications Administered Current Inpatient Medications Acetaminophen (Acetaminophen 325 Mg Tab) 650 mg PO Q4H PRN PRN Reason: Pain or Fever Stop: 01/07/21 21:42 Last Admin: 12/10/20 15:53 Dose: 650 mg Documented by: Amlodipine Besylate (Amlodipine Besylate 5 Mg Tab) 10 mg PO DAILY ZOHAIB Stop: 01/08/21 08:59 Last Admin: 12/12/20 07:59 Dose: 10 mg Documented by: Atorvastatin Calcium (Atorvastatin 40 Mg Tab) 40 mg PO HS ZOHAIB Stop: 01/07/21 21:42 Last Admin: 12/11/20 21:05 Dose: 40 mg Documented by: Carvedilol (Carvedilol 25 Mg Tab) 25 mg PO BIDM ZOHAIB Stop: 01/09/21 16:59 Last Admin: 12/12/20 16:34 Dose: 25 mg Documented by: Dextrose (Dextrose 50% 50 Ml Syringe) 25 - 50 ml IV UD PRN; Protocol PRN Reason: Hypoglycemia Protocol Stop: 01/07/21 21:42 Docusate Sodium (Docusate Sodium 100 Mg Cap) 100 mg PO BID PRN PRN Reason: Constipation Stop: 01/07/21 21:42 Duloxetine HCl (Duloxetine Hcl 60 Mg Cap) 60 mg PO DAILY ZOHAIB Stop: 01/08/21 08:59 Last Admin: 12/12/20 08:00 Dose: 60 mg Documented by: Enoxaparin Sodium (Enoxaparin Inj 40 Mg/0.4 Ml Syr) 40 mg SQ Q12H ZOHAIB Stop: 01/07/21 21:59 Last Admin: 12/12/20 10:10 Dose: 40 mg Documented by: Gabapentin (Gabapentin 300 Mg Cap) 300 mg PO HS ZOHAIB Stop: 01/07/21 21:42 Last Admin: 12/11/20 21:06 Dose: 300 mg Documented by: Glucagon (Glucagon For Inj 1 Mg Vial) 1 mg SQ UD PRN; Protocol PRN Reason: Hypoglycemia Protocol Stop: 01/07/21 21:42 Glucose (Glucose 10 Tabs/Tube) 4 - 8 tabs PO UD PRN; Protocol PRN Reason: Hypoglycemia Protocol Stop: 01/07/21 21:42 Glucose (Glucose 40% Gel 15 Gm Tube) 15 - 30 gm PO UD PRN; Protocol PRN Reason: Hypoglycemia Protocol Stop: 01/07/21 21:42 Heparin Sodium (Beef Lung) (Heparin 10 Unit/Ml 5 Ml Flush) 5 ml FLUSH PRN PRN PRN Reason: Flush Stop: 01/08/21 15:47 Furosemide 40 mg/ Syringe 4 mls @ 4 mls/min IV DAILY ZOHAIB Stop: 01/11/21 08:59 Last Admin: 12/12/20 07:59 Dose: 4 mls/min Documented by: Ibuprofen (Ibuprofen 600 Mg Tab) 600 mg PO Q8H PRN PRN Reason: right hand pain Stop: 01/11/21 00:10 Insulin Aspart (Insulin Aspart 100 Units/Ml 3 Ml Pen) 0 units SC ACHS ZOHAIB Stop: 01/07/21 21:59 Last Admin: 12/12/20 16:35 Dose: 10 units Documented by: Insulin Glargine (Insulin Glargine Solostar 100 Units/Ml 3 Ml Pen) 25 units SC BID ZOHAIB Stop: 01/07/21 21:59 Last Admin: 12/12/20 07:59 Dose: 25 units Documented by: Magnesium Hydroxide (Magnesium Hydroxide Susp 30 Ml Udc) 30 ml PO DAILY PRN PRN Reason: Constipation Stop: 01/07/21 21:42 Miscellaneous (Carbohydrates For Hypoglycemia ) 15 - 30 gm PO UD PRN PRN Reason: Hypoglycemia Protocol Stop: 01/07/21 21:42 Montelukast Sodium (Montelukast Sodium 10 Mg Tablet) 10 mg PO HS ZOHAIB Stop: 01/07/21 21:42 Last Admin: 12/11/20 21:07 Dose: 10 mg Documented by: Ondansetron HCl (Ondansetron Inj 2 Mg/Ml 2 Ml Vial) 4 mg IV Q6H PRN PRN Reason: Nausea Stop: 01/07/21 21:42 Pantoprazole Sodium (Pantoprazole 40 Mg Tab) 40 mg PO DAILY ZOHAIB Stop: 01/08/21 08:59 Last Admin: 12/12/20 08:00 Dose: 40 mg Documented by: Polyethylene Glycol (Polyethylene (Miralax) 17 Gm Pack) 17 gm PO DAILY PRN PRN Reason: Constipation Stop: 01/07/21 21:42 Potassium Chloride (Potassium Chloride Crtab 20 Meq Tabcr) 20 meq PO DAILY ZOHAIB Stop: 01/08/21 08:59 Last Admin: 12/12/20 08:04 Dose: 20 meq Documented by: Tamsulosin HCl (Tamsulosin Hcl 0.4 Mg Cap) 0.8 mg PO DAILY ZOHAIB Stop: 01/08/21 08:59 Last Admin: 12/12/20 08:00 Dose: 0.8 mg Documented by: Tramadol HCl (Tramadol Hcl 50 Mg Tablet) 50 mg PO Q4H PRN PRN Reason: Pain Stop: 01/09/21 14:08 Last Admin: 12/11/20 15:21 Dose: 50 mg Documented by: Umeclidinium/Vilanterol (Umeclidinium/Vilanterol 62.5/25mcg 7 Puffs/Inhaler) 1 puffs INH DAILY ZOHAIB Stop: 01/08/21 08:59 Last Admin: 12/12/20 08:00 Dose: 1 puffs Documented by: Vitamin D (Cholecalciferol 1,000 Units 25 Mcg Tab) 2,000 units PO DAILY ZOHAIB Stop: 01/08/21 08:59 Last Admin: 12/12/20 08:00 Dose: 2,000 units Documented by: (1) CHF (congestive heart failure) Heart failure chronicity: acute on chronic Heart failure type: unspecified Qualified Code(s): I50.9 - Heart failure, unspecified (2) Bilateral pneumonia Lung location: lower lobe of lung Pneumonia type: due to unspecified organism Qualified Code(s): J18.9 - Pneumonia, unspecified organism
[2020-12-12] MEDS: GABAPENTIN 300 MG CAP PO SCH (20:25)
[2020-12-12] MEDS: ATORVASTATIN 40 MG TAB PO SCH (20:25)
[2020-12-12] MEDS: MONTELUKAST SODIUM 10 MG TABLET PO SCH (20:28)
[2020-12-13 06:24] LABS: BUN Creatinine Ratio 24.1 (10-20); C Reactive Protein 1.9 mg/dl (0-0.29); Calcium 9.7 mg/dl (8.5-10.1); Creatinine Clr Calc Pharmacy 127.1 ml/min; Est GFR (African American) 102.2 ml/min; Est GFR (Non-African American) 88.2 ml/min; Magnesium 1.8 mg/dl (1.8-2.4); Potassium 3.7 mmol/L (3.5-5.1)
[2020-12-13] MEDS: INSULIN ASPART 100 UNITS/ML 3 ML PEN SC SCH ×4 (08:38→21:54)
[2020-12-13] MEDS: INSULIN GLARGINE SOLOSTAR 100 UNITS/ML 3 ML PEN SC SCH ×2 (08:41→22:18)
[2020-12-13] MEDS: UMECLIDINIUM/VILANTEROL 62.5/25MCG 7 PUFFS/INHALER INH SCH (08:41)
[2020-12-13] MEDS: CHOLECALCIFEROL 1,000 UNITS 25 MCG TAB PO SCH (08:42)
[2020-12-13] MEDS: FUROSEMIDE 40 MG in SYRINGE 0 ML IV SCH (08:42)
[2020-12-13] MEDS: PANTOprazole 40 MG TAB PO SCH (08:42)
[2020-12-13] MEDS: ENOXAPARIN INJ 40 MG/0.4 ML SYR SQ SCH ×2 (08:43→22:17)
[2020-12-13] MEDS: TAMSULOSIN HCL 0.4 MG CAP PO SCH (08:43)
[2020-12-13] MEDS: carvediloL 25 MG TAB PO SCH ×2 (08:43→16:56)
[2020-12-13] MEDS: amLODIPine BESYLATE 5 MG TAB PO SCH (08:43)
[2020-12-13] MEDS: DULoxetine HCL 60 MG CAP PO SCH (08:43)
[2020-12-13] MEDS: POTASSIUM CHLORIDE CRTAB 20 MEQ TABCR PO SCH (08:46)
--- NOTE | 2020-12-13 11:22 | XRay Report ---
XR chest 1V portable CLINICAL HISTORY: Pneumonia COMPARISON STUDY: December 08, 2020 FINDINGS: No definite pneumothorax seen however evaluation is limited because bilateral lung apices are acute b y patient's chin.. No pleural effusion. Interval worsening of bilateral patchy airspace opacities since recent prior study, right more than l eft and associated with stable volume loss over right hemithorax. Evaluation is limited due to patient's body habitus. Cardiomediastinal silhouette is unchanged since prior study. Pulmonary vasculature is indistinct.. Osseous structures: unremarkable vertebral body are not well seen. Stable position of right-sided PICC line. IMPRESSION: 1. Interval worsening of bilateral patchy airspace opacities likely representing multifocal pneumoni a. Limited exam due to patient body habitus. 2. The rest of findings as detailed above. ACT 112: Positive. There are findings on this exam that require communication between the performing entity and the patient following Patient Test Result Information Act ([place] Act 112) guidelines. The above report was generated using voice recognition software. It may contain grammatical, syntax o r spelling errors. Electronically signed by: Siomara Ford DO 12/13/2020 11:21 AM
[2020-12-13] MEDS ORDERED: guaiFENesin 600 MG TABCR PO SCH (11:39)
[2020-12-13] MEDS ORDERED: guaiFENesin 600 MG TABCR PO STA (11:40)
--- NOTE | 2020-12-13 13:21 | Hospitalist Progress Note ---
Date of Service December 13, 2020 Assessment & Plan (1) Respiratory failure: Acute on chronic respiratory failure in setting of COVID-19 virus infection with recent post Covid pneumonitis. Now with worsening shortness of breath and worsening infiltrates. Has been on diuretics since admission and appears improved since then No indication for steroids or antibiotics at this time. Appreciate pulmonary input and recommendation Remains stable and seems to be improving a little bit Still requiring 3 L of oxygen via nasal cannula to maintain saturation Mucinex has been added to suppress cough (2) Bilateral pneumonia: Resolving, he has already received full course of antibiotics and steroids with no further indication for that now. Initial worsening dyspnea may have been related to atypical pulmonary edema in setting of covid pneumonitis which is improved after diuretics. Repeat chest x-ray did not show any improvement of the infiltration We will continue minimal doses of diuretics and supportive care Doubt any superinfection at this time (3) COVID-19 virus infection: Received 1 dose of Tocilizumab upon initial diagnosis in mid October followed by a course of remdesivir and dexamethasone. Cont supportive care measures. We will continue PT and OT evaluation [facility] (4) Flexor tenosynovitis of finger: Ibuprofen PRN, if pain becomes significant may consider contacting ortho for a splint/injection therapy. (5) CHF (congestive heart failure): compensated, cont daily IV Lasix, hold Bumex. Continue to monitor daily weights, strict I's and O's and low-salt diet Clinically no signs of fluid overload (6) Anemia: Multifactorial in setting of multiple comorbidities and multiple recent hospitalizations. No paige bleeding or acute blood loss. Trend CBC and transfuse if needed. (7) Diabetes mellitus, type II: Currently holding outpatient regimen of insulin and utilizing weight-based multi daily dose insulin schedule in the hospital. Most recent A1c is 7.1 on 11/30/2020 Blood sugar remains stable (8) Depression: Patient noted to be on Cymbalta and sertraline. Kept Cymbalta in place and drop sertraline to avoid any serotonin syndrome. Will need to discuss this and optimize him prior to discharge. (9) Hypomagnesemia: improved. (10) DVT prophylaxis: Lovenox Full code Disposition-back to [facility] for additional inpatient rehab once medically stable. We will get PT and OT evaluation [facility] a day or 2 Admission and Anticipated Discharge Date Admission Date: December 08, 2020 Subjective 12/13/2020 The patient was seen and examined in telemetry unit He has been complaining of generalized weakness and ongoing cough Denies any increasing shortness of breath, fever and/or chills, any nausea and/ or vomiting Review of Systems Review of Systems: All systems reviewed and are unremarkable except as noted below Respiratory: + cough and + dyspnea on exertion Musculoskeletal: + muscle weakness Physical Exam Physical Exam: Lying in bed comfortably Constitutional: well developed, well nourished and + obese; no acute distress Eyes: PERRL, conjunctivae normal, anicteric sclerae ENMT: external ear and nose normal, oropharynx normal Neck: trachea midline, no thyromegaly Respiratory: + respiratory distress (Minimal respiratory distress at rest) Auscultation: + diminished lung sounds and + crackles (Bibasilar crackles more on the right than the left) Cardiovascular: Rate/Rhythm: regular rate and regular rhythm Heart Sounds: no murmur Extremities: + edema Gastrointestinal (Abdomen): Inspection/Auscultation: normal bowel sounds; abdomen not distended Percussion/Palpation: abdomen soft; abdomen nontender Musculoskeletal: No acute arthritis in any joint Neurologic: Alert, awake and oriented x3. No focal sensory and motor deficit appreciated Psychiatric: A+Ox3, euthymic affect Lymphatic: no cervical or axillary lymphadenopathy Results & Data Results & Data ([facility]) Vital Signs (Past 12 Hours) Vital Signs Temp Pulse Pulse Resp BP Pulse Ox 12/13/20 11:01 36.8 C 71 18 145/79 H 97 12/13/20 07:35 75 12/13/20 06:54 36.8 C 79 18 161/76 H 93 12/13/20 03:44 36.6 C 74 20 164/67 H 94 Laboratory Results [facility] 12/13/20 05:18 Sodium 140 Potassium 3.7 Chloride 105 Carbon Dioxide 33 H BUN 22 H Creatinine 0.92 Glucose 101 H Calcium 9.7 Medications Administered Current Inpatient Medications Acetaminophen (Acetaminophen 325 Mg Tab) 650 mg PO Q4H PRN PRN Reason: Pain or Fever Stop: 01/07/21 21:42 Last Admin: 12/10/20 15:53 Dose: 650 mg Documented by: Amlodipine Besylate (Amlodipine Besylate 5 Mg Tab) 10 mg PO DAILY [facility] Stop: 01/08/21 08:59 Last Admin: 12/13/20 08:43 Dose: 10 mg Documented by: Atorvastatin Calcium (Atorvastatin 40 Mg Tab) 40 mg PO HS [facility] Stop: 01/07/21 21:42 Last Admin: 12/12/20 20:25 Dose: 40 mg Documented by: Carvedilol (Carvedilol 25 Mg Tab) 25 mg PO BIDM [facility] Stop: 01/09/21 16:59 Last Admin: 12/13/20 08:43 Dose: 25 mg Documented by: Dextrose (Dextrose 50% 50 Ml Syringe) 25 - 50 ml IV UD PRN; Protocol PRN Reason: Hypoglycemia Protocol Stop: 01/07/21 21:42 Docusate Sodium (Docusate Sodium 100 Mg Cap) 100 mg PO BID PRN PRN Reason: Constipation Stop: 01/07/21 21:42 Duloxetine HCl (Duloxetine Hcl 60 Mg Cap) 60 mg PO DAILY [facility] Stop: 01/08/21 08:59 Last Admin: 12/13/20 08:43 Dose: 60 mg Documented by: Enoxaparin Sodium (Enoxaparin Inj 40 Mg/0.4 Ml Syr) 40 mg SQ Q12H [facility] Stop: 01/07/21 21:59 Last Admin: 12/13/20 08:43 Dose: 40 mg Documented by: Gabapentin (Gabapentin 300 Mg Cap) 300 mg PO HS [facility] Stop: 01/07/21 21:42 Last Admin: 12/12/20 20:25 Dose: 300 mg Documented by: Glucagon (Glucagon For Inj 1 Mg Vial) 1 mg SQ UD PRN; Protocol PRN Reason: Hypoglycemia Protocol Stop: 01/07/21 21:42 Glucose (Glucose 10 Tabs/Tube) 4 - 8 tabs PO UD PRN; Protocol PRN Reason: Hypoglycemia Protocol Stop: 01/07/21 21:42 Glucose (Glucose 40% Gel 15 Gm Tube) 15 - 30 gm PO UD PRN; Protocol PRN Reason: Hypoglycemia Protocol Stop: 01/07/21 21:42 Guaifenesin (Guaifenesin 600 Mg Tabcr) 1,200 mg PO Q12 [facility] Stop: 01/12/21 20:59 Heparin Sodium (Beef Lung) (Heparin 10 Unit/Ml 5 Ml Flush) 5 ml FLUSH PRN PRN PRN Reason: Flush Stop: 01/08/21 15:47 Furosemide 40 mg/ Syringe 4 mls @ 4 mls/min IV DAILY [facility] Stop: 01/11/21 08:59 Last Admin: 12/13/20 08:42 Dose: 4 mls/min Documented by: Ibuprofen (Ibuprofen 600 Mg Tab) 600 mg PO Q8H PRN PRN Reason: right hand pain Stop: 01/11/21 00:10 Insulin Aspart (Insulin Aspart 100 Units/Ml 3 Ml Pen) 0 units SC ACHS [facility] Stop: 01/07/21 21:59 Last Admin: 12/13/20 12:08 Dose: 8 units Documented by: Insulin Glargine (Insulin Glargine Solostar 100 Units/Ml 3 Ml Pen) 25 units SC BID [facility] Stop: 01/07/21 21:59 Last Admin: 12/13/20 08:41 Dose: 25 units Documented by: Magnesium Hydroxide (Magnesium Hydroxide Susp 30 Ml Udc) 30 ml PO DAILY PRN PRN Reason: Constipation Stop: 01/07/21 21:42 Miscellaneous (Carbohydrates For Hypoglycemia ) 15 - 30 gm PO UD PRN PRN Reason: Hypoglycemia Protocol Stop: 01/07/21 21:42 Montelukast Sodium (Montelukast Sodium 10 Mg Tablet) 10 mg PO HS [facility] Stop: 01/07/21 21:42 Last Admin: 12/12/20 20:28 Dose: 10 mg Documented by: Ondansetron HCl (Ondansetron Inj 2 Mg/Ml 2 Ml Vial) 4 mg IV Q6H PRN PRN Reason: Nausea Stop: 01/07/21 21:42 Pantoprazole Sodium (Pantoprazole 40 Mg Tab) 40 mg PO DAILY [facility] Stop: 01/08/21 08:59 Last Admin: 12/13/20 08:42 Dose: 40 mg Documented by: Polyethylene Glycol (Polyethylene (Miralax) 17 Gm Pack) 17 gm PO DAILY PRN PRN Reason: Constipation Stop: 01/07/21 21:42 Potassium Chloride (Potassium Chloride Crtab 20 Meq Tabcr) 20 meq PO DAILY [facility] Stop: 01/08/21 08:59 Last Admin: 12/13/20 08:46 Dose: 20 meq Documented by: Tamsulosin HCl (Tamsulosin Hcl 0.4 Mg Cap) 0.8 mg PO DAILY [facility] Stop: 01/08/21 08:59 Last Admin: 12/13/20 08:43 Dose: 0.8 mg Documented by: Tramadol HCl (Tramadol Hcl 50 Mg Tablet) 50 mg PO Q4H PRN PRN Reason: Pain Stop: 01/09/21 14:08 Last Admin: 12/11/20 15:21 Dose: 50 mg Documented by: Umeclidinium/Vilanterol (Umeclidinium/Vilanterol 62.5/25mcg 7 Puffs/Inhaler) 1 puffs INH DAILY [facility] Stop: 01/08/21 08:59 Last Admin: 12/13/20 08:41 Dose: 1 puffs Documented by: Vitamin D (Cholecalciferol 1,000 Units 25 Mcg Tab) 2,000 units PO DAILY [facility] Stop: 01/08/21 08:59 Last Admin: 12/13/20 08:42 Dose: 2,000 units Documented by: (1) Bilateral pneumonia Lung location: lower lobe of lung Pneumonia type: due to unspecified organism Qualified Code(s): J18.9 - Pneumonia, unspecified organism (2) CHF (congestive heart failure) Heart failure chronicity: acute on chronic Heart failure type: unspecified Qualified Code(s): I50.9 - Heart failure, unspecified
[2020-12-13] MEDS: ATORVASTATIN 40 MG TAB PO SCH (20:03)
[2020-12-13] MEDS: GABAPENTIN 300 MG CAP PO SCH (20:03)
[2020-12-13] MEDS: guaiFENesin 600 MG TABCR PO SCH (20:03)
[2020-12-13] MEDS: MONTELUKAST SODIUM 10 MG TABLET PO SCH (20:03)
[2020-12-14 07:45] LABS: Basophils # (auto) 0.01 K/uL (0-0.2); Basophils % (auto) 0.1 %; Eosinophils % (auto) 1.4 %; Hematocrit (blood only) 26.3 % (42-52); Hemoglobin 8.4 g/dL (14.0-18.0); Immature Granulocytes # (auto) 0.07 K/uL (0.00-0.02); Lymphocytes # (auto) 1.28 K/uL (1.2-3.4); Lymphocytes % (auto) 17.6 %; Mean Corpuscular Hemoglobin 28.5 pg (25-34); Mean Corpuscular Hgb Conc 31.9 g/dL (32-36); Mean Corpuscular Volume 89.2 fL (80-100); Mean Platelet Volume 9.1 fL (7.4-10.4); Monocytes % (auto) 6.9 %; Neutrophils # (auto) 5.33 K/uL (1.4-6.5); Platelet Count 207 K/uL (130-400); RDW Coefficient of Variation 15.6 % (11.5-14.5); RDW Standard Deviation 50.8 fL (36.4-46.3); Red Blood Count 2.95 M/uL (4.7-6.1); White Blood Count 7.29 K/uL (4.8-10.8)
[2020-12-14 08:11] LABS: BUN Creatinine Ratio 25.8 (10-20); Calcium 9.5 mg/dl (8.5-10.1); Creatinine Clr Calc Pharmacy 157.3 ml/min; Est GFR (African American) 113.2 ml/min; Est GFR (Non-African American) 97.6 ml/min; Magnesium 1.7 mg/dl (1.8-2.4); Phosphorus 3.3 mg/dl (2.5-4.9); Potassium 3.6 mmol/L (3.5-5.1)
[2020-12-14] MEDS: traMADol HCL 50 MG TABLET PO PRN ×2 (08:44→23:43)
[2020-12-14] MEDS: FUROSEMIDE 40 MG in SYRINGE 0 ML IV SCH (08:45)
[2020-12-14] MEDS: TAMSULOSIN HCL 0.4 MG CAP PO SCH (08:45)
[2020-12-14] MEDS: carvediloL 25 MG TAB PO SCH ×2 (08:45→17:56)
[2020-12-14] MEDS: DULoxetine HCL 60 MG CAP PO SCH (08:45)
[2020-12-14] MEDS: amLODIPine BESYLATE 5 MG TAB PO SCH (08:45)
[2020-12-14] MEDS: UMECLIDINIUM/VILANTEROL 62.5/25MCG 7 PUFFS/INHALER INH SCH (08:45)
[2020-12-14] MEDS: PANTOprazole 40 MG TAB PO SCH (08:45)
[2020-12-14] MEDS: guaiFENesin 600 MG TABCR PO SCH ×2 (08:46→20:30)
[2020-12-14] MEDS: CHOLECALCIFEROL 1,000 UNITS 25 MCG TAB PO SCH (08:46)
[2020-12-14] MEDS: INSULIN ASPART 100 UNITS/ML 3 ML PEN SC SCH ×4 (08:47→20:31)
[2020-12-14] MEDS: ENOXAPARIN INJ 40 MG/0.4 ML SYR SQ SCH ×2 (08:48→20:30)
[2020-12-14] MEDS: INSULIN GLARGINE SOLOSTAR 100 UNITS/ML 3 ML PEN SC SCH ×2 (09:34→20:30)
[2020-12-14] MEDS: POTASSIUM CHLORIDE CRTAB 20 MEQ TABCR PO SCH (09:34)
[2020-12-14] MEDS: lisinopril 5 MG TAB PO SCH (12:13)
--- NOTE | 2020-12-14 16:34 | Hospitalist Progress Note ---
Date of Service December 14, 2020 Assessment & Plan (1) Respiratory failure: Acute on chronic respiratory failure in setting of COVID-19 virus infection with recent post Covid pneumonitis. Now with worsening shortness of breath and worsening infiltrates. Has been on diuretics since admission and appears improved since then No indication for steroids or antibiotics at this time. Appreciate pulmonary input and recommendation Remains stable and seems to be improving a little bit Still requiring 3 L of oxygen via nasal cannula to maintain saturation Mucinex has been added to suppress cough Remains stable and has been 1 his baseline requirements of oxygen to maintain saturation Likely be transferred tomorrow to [facility] Hypertension Blood pressures remains on the upper side We will add lisinopril at a smaller doses We will monitor (2) Bilateral pneumonia: Resolving, he has already received full course of antibiotics and steroids with no further indication for that now. Initial worsening dyspnea may have been related to atypical pulmonary edema in setting of covid pneumonitis which is improved after diuretics. Repeat chest x-ray did not show any improvement of the infiltration We will continue minimal doses of diuretics and supportive care Doubt any superinfection at this time Viral pneumonia and doubt any bacterial superinfection (3) COVID-19 virus infection: Received 1 dose of Tocilizumab upon initial diagnosis in mid October followed by a course of remdesivir and dexamethasone. Cont supportive care measures. We will continue PT and OT evaluation before sending back to [facility] (4) Flexor tenosynovitis of finger: Ibuprofen PRN, if pain becomes significant may consider contacting ortho for a splint/injection therapy. (5) CHF (congestive heart failure): compensated, cont daily IV Lasix, hold Bumex. Continue to monitor daily weights, strict I's and O's and low-salt diet Clinically no signs of fluid overload Has been on intravenous Lasix (6) Anemia: Multifactorial in setting of multiple comorbidities and multiple recent hospitalizations. No paige bleeding or acute blood loss. Trend CBC and transfuse if needed. (7) Diabetes mellitus, type II: Currently holding outpatient regimen of insulin and utilizing weight-based multi daily dose insulin schedule in the hospital. Most recent A1c is 7.1 on 11/30/2020 Blood sugar remains stable (8) Depression: Patient noted to be on Cymbalta and sertraline. Kept Cymbalta in place and drop sertraline to avoid any serotonin syndrome. Will need to discuss this and optimize him prior to discharge. (9) Hypomagnesemia: improved. (10) DVT prophylaxis: Lovenox Full code Disposition-back to [facility] for additional inpatient rehab once medically stable. We will get PT and OT evaluation Possible discharge to [facility] in a day or 2 Admission and Anticipated Discharge Date Admission Date: December 08, 2020 Subjective 12/13/2020 The patient was seen and examined in telemetry unit He has been complaining of generalized weakness and ongoing cough Denies any increasing shortness of breath, fever and/or chills, any nausea and/or vomiting 12/14/2020 The patient was seen and examined in telemetry unit He still has the cough but feeling otherwise okay Has significant weakness and tiredness Has been saturating well with 2 L of nasal cannula oxygen Review of Systems Review of Systems: All systems reviewed and are unremarkable except as noted below Respiratory: + cough and + dyspnea on exertion Musculoskeletal: + muscle weakness Physical Exam Physical Exam: Lying in bed comfortably Constitutional: well developed, well nourished and + obese; no acute distress Eyes: PERRL, conjunctivae normal, anicteric sclerae ENMT: external ear and nose normal, oropharynx normal Neck: trachea midline, no thyromegaly Respiratory: no respiratory distress Auscultation: + diminished lung sounds and + crackles (Bibasilar crackles more on the right than the left) Cardiovascular: Rate/Rhythm: regular rate and regular rhythm Heart Sounds: no murmur Extremities: + edema Gastrointestinal (Abdomen): Inspection/Auscultation: normal bowel sounds; abdomen not distended Percussion/Palpation: abdomen soft; abdomen nontender Musculoskeletal: No acute arthritis in any joint Neurologic: Alert, awake and oriented x3. Generally weak but no focal neuro deficit Psychiatric: A+Ox3, euthymic affect Lymphatic: no cervical or axillary lymphadenopathy Results & Data Results & Data ([facility]) Vital Signs (Past 12 Hours) Vital Signs Temp Pulse Pulse Resp BP BP Pulse Ox 12/14/20 14:52 36.5 C 71 18 166/86 H 95 12/14/20 11:12 36.5 C 68 18 170/81 H 96 12/14/20 07:47 66 12/14/20 07:40 36.7 C 77 18 187/85 H 94 Laboratory Results Short CBC 12/14/20 Range/Units 07:29 WBC 7.29 (4.8-10.8) K/uL Hgb 8.4 L (14.0-18.0) g/dL Hct 26.3 L (42-52) % Plt Count 207 (130-400) K/uL [facility] 12/14/20 07:29 Sodium 141 Potassium 3.6 Chloride 105 Carbon Dioxide 30 BUN 19 H Creatinine 0.75 Glucose 91 Calcium 9.5 Medications Administered Current Inpatient Medications Acetaminophen (Acetaminophen 325 Mg Tab) 650 mg PO Q4H PRN PRN Reason: Pain or Fever Stop: 01/07/21 21:42 Last Admin: 12/10/20 15:53 Dose: 650 mg Documented by: Amlodipine Besylate (Amlodipine Besylate 5 Mg Tab) 10 mg PO DAILY [facility] Stop: 01/08/21 08:59 Last Admin: 12/14/20 08:45 Dose: 10 mg Documented by: Atorvastatin Calcium (Atorvastatin 40 Mg Tab) 40 mg PO HS [facility] Stop: 01/07/21 21:42 Last Admin: 12/13/20 20:03 Dose: 40 mg Documented by: Carvedilol (Carvedilol 25 Mg Tab) 25 mg PO BIDM [facility] Stop: 01/09/21 16:59 Last Admin: 12/14/20 08:45 Dose: 25 mg Documented by: Dextrose (Dextrose 50% 50 Ml Syringe) 25 - 50 ml IV UD PRN; Protocol PRN Reason: Hypoglycemia Protocol Stop: 01/07/21 21:42 Docusate Sodium (Docusate Sodium 100 Mg Cap) 100 mg PO BID PRN PRN Reason: Constipation Stop: 01/07/21 21:42 Duloxetine HCl (Duloxetine Hcl 60 Mg Cap) 60 mg PO DAILY [facility] Stop: 01/08/21 08:59 Last Admin: 12/14/20 08:45 Dose: 60 mg Documented by: Enoxaparin Sodium (Enoxaparin Inj 40 Mg/0.4 Ml Syr) 40 mg SQ Q12H [facility] Stop: 01/07/21 21:59 Last Admin: 12/14/20 08:48 Dose: 40 mg Documented by: Gabapentin (Gabapentin 300 Mg Cap) 300 mg PO HS [facility] Stop: 01/07/21 21:42 Last Admin: 12/13/20 20:03 Dose: 300 mg Documented by: Glucagon (Glucagon For Inj 1 Mg Vial) 1 mg SQ UD PRN; Protocol PRN Reason: Hypoglycemia Protocol Stop: 01/07/21 21:42 Glucose (Glucose 10 Tabs/Tube) 4 - 8 tabs PO UD PRN; Protocol PRN Reason: Hypoglycemia Protocol Stop: 01/07/21 21:42 Glucose (Glucose 40% Gel 15 Gm Tube) 15 - 30 gm PO UD PRN; Protocol PRN Reason: Hypoglycemia Protocol Stop: 01/07/21 21:42 Guaifenesin (Guaifenesin 600 Mg Tabcr) 1,200 mg PO Q12 [facility] Stop: 01/12/21 20:59 Last Admin: 12/14/20 08:46 Dose: 1,200 mg Documented by: Heparin Sodium (Beef Lung) (Heparin 10 Unit/Ml 5 Ml Flush) 5 ml FLUSH PRN PRN PRN Reason: Flush Stop: 01/08/21 15:47 Furosemide 40 mg/ Syringe 4 mls @ 4 mls/min IV DAILY [facility] Stop: 01/11/21 08:59 Last Admin: 12/14/20 08:45 Dose: 4 mls/min Documented by: Ibuprofen (Ibuprofen 600 Mg Tab) 600 mg PO Q8H PRN PRN Reason: right hand pain Stop: 01/11/21 00:10 Insulin Aspart (Insulin Aspart 100 Units/Ml 3 Ml Pen) 0 units SC ACHS [facility] Stop: 01/07/21 21:59 Last Admin: 12/14/20 12:09 Dose: 12 units Documented by: Insulin Glargine (Insulin Glargine Solostar 100 Units/Ml 3 Ml Pen) 25 units SC BID [facility] Stop: 01/07/21 21:59 Last Admin: 12/14/20 09:34 Dose: 25 units Documented by: Lisinopril (Lisinopril 5 Mg Tab) 5 mg PO QAM [facility] Stop: 01/13/21 11:44 Last Admin: 12/14/20 12:13 Dose: 5 mg Documented by: Magnesium Hydroxide (Magnesium Hydroxide Susp 30 Ml Udc) 30 ml PO DAILY PRN PRN Reason: Constipation Stop: 01/07/21 21:42 Miscellaneous (Carbohydrates For Hypoglycemia ) 15 - 30 gm PO UD PRN PRN Reason: Hypoglycemia Protocol Stop: 01/07/21 21:42 Montelukast Sodium (Montelukast Sodium 10 Mg Tablet) 10 mg PO HS [facility] Stop: 01/07/21 21:42 Last Admin: 12/13/20 20:03 Dose: 10 mg Documented by: Ondansetron HCl (Ondansetron Inj 2 Mg/Ml 2 Ml Vial) 4 mg IV Q6H PRN PRN Reason: Nausea Stop: 01/07/21 21:42 Pantoprazole Sodium (Pantoprazole 40 Mg Tab) 40 mg PO DAILY [facility] Stop: 01/08/21 08:59 Last Admin: 12/14/20 08:45 Dose: 40 mg Documented by: Polyethylene Glycol (Polyethylene (Miralax) 17 Gm Pack) 17 gm PO DAILY PRN PRN Reason: Constipation Stop: 01/07/21 21:42 Potassium Chloride (Potassium Chloride Crtab 20 Meq Tabcr) 20 meq PO DAILY [facility] Stop: 01/08/21 08:59 Last Admin: 12/14/20 09:34 Dose: 20 meq Documented by: Tamsulosin HCl (Tamsulosin Hcl 0.4 Mg Cap) 0.8 mg PO DAILY [facility] Stop: 01/08/21 08:59 Last Admin: 12/14/20 08:45 Dose: 0.8 mg Documented by: Tramadol HCl (Tramadol Hcl 50 Mg Tablet) 50 mg PO Q4H PRN PRN Reason: Pain Stop: 01/09/21 14:08 Last Admin: 12/14/20 08:44 Dose: 50 mg Documented by: Umeclidinium/Vilanterol (Umeclidinium/Vilanterol 62.5/25mcg 7 Puffs/Inhaler) 1 puffs INH DAILY [facility] Stop: 01/08/21 08:59 Last Admin: 12/14/20 08:45 Dose: 1 puffs Documented by: Vitamin D (Cholecalciferol 1,000 Units 25 Mcg Tab) 2,000 units PO DAILY [facility] Stop: 01/08/21 08:59 Last Admin: 12/14/20 08:46 Dose: 2,000 units Documented by: (1) Bilateral pneumonia Lung location: lower lobe of lung Pneumonia type: due to unspecified organism Qualified Code(s): J18.9 - Pneumonia, unspecified organism (2) CHF (congestive heart failure) Heart failure chronicity: acute on chronic Heart failure type: unspecified Qualified Code(s): I50.9 - Heart failure, unspecified
[2020-12-14] MEDS: ACETAMINOPHEN 325 MG TAB PO PRN (20:29)
[2020-12-14] MEDS: MONTELUKAST SODIUM 10 MG TABLET PO SCH (20:29)
[2020-12-14] MEDS: GABAPENTIN 300 MG CAP PO SCH (20:30)
[2020-12-14] MEDS: ATORVASTATIN 40 MG TAB PO SCH (20:30)
[2020-12-15 06:20] LABS: Basophils # (auto) 0.02 K/uL (0-0.2); Basophils % (auto) 0.3 %; Eosinophils # (auto) 0.09 K/uL (0-0.5); Eosinophils % (auto) 1.3 %; Hematocrit (blood only) 25.5 % (42-52); Hemoglobin 7.9 g/dL (14.0-18.0); Immature Granulocytes # (auto) 0.07 K/uL (0.00-0.02); Lymphocytes # (auto) 1.43 K/uL (1.2-3.4); Lymphocytes % (auto) 21.4 %; Mean Corpuscular Hemoglobin 28.1 pg (25-34); Mean Corpuscular Volume 90.7 fL (80-100); Monocytes # (auto) 0.55 K/uL (0.11-0.59); Monocytes % (auto) 8.2 %; Neutrophils # (auto) 4.53 K/uL (1.4-6.5); Neutrophils % (auto) 67.8 %; Platelet Count 205 K/uL (130-400); RDW Coefficient of Variation 15.7 % (11.5-14.5); RDW Standard Deviation 52.6 fL (36.4-46.3); Red Blood Count 2.81 M/uL (4.7-6.1); White Blood Count 6.69 K/uL (4.8-10.8)
[2020-12-15 06:34] LABS: BUN Creatinine Ratio 21.7 (10-20); Calcium 9.3 mg/dl (8.5-10.1); Creatinine Clr Calc Pharmacy 145.6 ml/min; Est GFR (African American) 109.6 ml/min; Est GFR (Non-African American) 94.6 ml/min; Potassium 3.4 mmol/L (3.5-5.1)
[2020-12-15 06:40] LABS: RBC Morphology Unremarkable
[2020-12-15] MEDS ORDERED: POTASSIUM CHLORIDE CRTAB 20 MEQ TABCR PO STA (08:09)
[2020-12-15] MEDS: amLODIPine BESYLATE 5 MG TAB PO SCH (08:22)
[2020-12-15] MEDS: carvediloL 25 MG TAB PO SCH ×2 (08:22→17:25)
[2020-12-15] MEDS: INSULIN ASPART 100 UNITS/ML 3 ML PEN SC SCH ×4 (08:23→20:25)
[2020-12-15] MEDS: TAMSULOSIN HCL 0.4 MG CAP PO SCH (08:23)
[2020-12-15] MEDS: DULoxetine HCL 60 MG CAP PO SCH (08:23)
[2020-12-15] MEDS: CHOLECALCIFEROL 1,000 UNITS 25 MCG TAB PO SCH (08:23)
[2020-12-15] MEDS: lisinopril 5 MG TAB PO SCH (08:23)
[2020-12-15] MEDS: guaiFENesin 600 MG TABCR PO SCH ×2 (08:23→20:27)
[2020-12-15] MEDS: PANTOprazole 40 MG TAB PO SCH (08:23)
[2020-12-15] MEDS: INSULIN GLARGINE SOLOSTAR 100 UNITS/ML 3 ML PEN SC SCH ×2 (08:25→20:27)
[2020-12-15] MEDS: POTASSIUM CHLORIDE CRTAB 20 MEQ TABCR PO SCH (08:29)
[2020-12-15] MEDS: UMECLIDINIUM/VILANTEROL 62.5/25MCG 7 PUFFS/INHALER INH SCH (09:51)
[2020-12-15] MEDS: FUROSEMIDE 40 MG in SYRINGE 0 ML IV SCH (10:04)
[2020-12-15] MEDS: ENOXAPARIN INJ 40 MG/0.4 ML SYR SQ SCH ×2 (10:10→20:27)
--- NOTE | 2020-12-15 11:04 | Hospitalist Progress Note ---
Date of Service December 15, 2020 Assessment & Plan (1) Respiratory failure: Acute on chronic respiratory failure in setting of COVID-19 virus infection with recent post Covid pneumonitis. Now with worsening shortness of breath and worsening infiltrates. Has been on diuretics since admission and appears improved since then No indication for steroids or antibiotics at this time. Appreciate pulmonary input and recommendation Remains stable and seems to be improving a little bit Still requiring 3 L of oxygen via nasal cannula to maintain saturation Mucinex has been added to suppress cough Remains stable and has been 1 his baseline requirements of oxygen to maintain saturation Likely be transferred tomorrow to [facility] Hypertension Blood pressures remains on the upper side We will add lisinopril at a smaller dose Blood pressure remains in the upper side but seems to be stable (2) Bilateral pneumonia: Resolving, he has already received full course of antibiotics and steroids with no further indication for that now. Initial worsening dyspnea may have been related to atypical pulmonary edema in setting of covid pneumonitis which is improved after diuretics. Repeat chest x-ray did not show any improvement of the infiltration We will continue minimal doses of diuretics and supportive care Doubt any superinfection at this time Viral pneumonia and doubt any bacterial superinfection (3) COVID-19 virus infection: Received 1 dose of Tocilizumab upon initial diagnosis in mid October followed by a course of remdesivir and dexamethasone. Cont supportive care measures. We will continue PT and OT evaluation before sending back to [facility] He will be transferred to [facility] this afternoon (4) Flexor tenosynovitis of finger: Ibuprofen PRN, if pain becomes significant may consider contacting ortho for a splint/injection therapy. (5) CHF (congestive heart failure): compensated, cont daily IV Lasix, hold Bumex. Continue to monitor daily weights, strict I's and O's and low-salt diet Clinically no signs of fluid overload Has been on intravenous Lasix Will change oral furosemide at discharge (6) Anemia: Multifactorial in setting of multiple comorbidities and multiple recent hospitalizations. No paige bleeding or acute blood loss. Trend CBC and transfuse if needed. (7) Diabetes mellitus, type II: Currently holding outpatient regimen of insulin and utilizing weight-based multi daily dose insulin schedule in the hospital. Most recent A1c is 7.1 on 11/30/2020 Blood sugar remains stable (8) Depression: Patient noted to be on Cymbalta and sertraline. Kept Cymbalta in place and drop sertraline to avoid any serotonin syndrome. Will need to discuss this and optimize him prior to discharge. (9) Hypomagnesemia: improved. (10) DVT prophylaxis: Lovenox Full code [facility]position[facility] inpatient [facility]hab once medically stable. We will get PT and OT evaluation Transfer to [facility] this afternoon Admission and Anticipated Discharge Date Admission Date: December 08, 2020 Subjective 12/13/2020 The patient was seen and examined in telemetry unit He has been complaining of generalized weakness and ongoing cough Denies any increasing shortness of breath, fever and/or chills, any nausea and/or vomiting 12/14/2020 The patient was seen and examined in telemetry unit He still has the cough but feeling otherwise okay Has significant weakness and tiredness Has been saturating well with 2 L of nasal cannula oxygen 12/15/2020 The patient was seen and examined in medical telemetry unit He has been drowsy and weak but denies any other symptoms He has been saturating well with 2 L of nasal cannula oxygen His blood pressure seems to be reasonably controlled though remains on the higher side Review of Systems Review of Systems: All systems reviewed and are unremarkable except as noted below Respiratory: + cough and + dyspnea on exertion Musculoskeletal: + muscle weakness Physical Exam Physical Exam: Lying in bed comfortably Constitutional: well developed, well nourished and + obese; no acute distress Eyes: PERRL, conjunctivae normal, anicteric sclerae ENMT: external ear and nose normal, oropharynx normal Neck: trachea midline, no thyromegaly Respiratory: no respiratory distress Auscultation: + diminished lung sounds and + crackles (Bibasilar crackles more on the right than the left) Cardiovascular: Rate/Rhythm: regular rate and regular rhythm Heart Sounds: no murmur Extremities: + edema Gastrointestinal (Abdomen): Inspection/Auscultation: normal bowel sounds; abdomen not distended Percussion/Palpation: abdomen soft; abdomen nontender Musculoskeletal: No acute arthritis in any joint Neurologic: Alert, awake and oriented x3. Generally weak and lethargic. No focal sensory and motor deficit appreciated Psychiatric: A+Ox3, euthymic affect Lymphatic: no cervical or axillary lymphadenopathy Results & Data Results & Data ([facility]) Vital Signs (Past 12 Hours) Vital Signs Temp Pulse Pulse Resp BP Pulse Ox 12/15/20 08:15 36.5 C 101 H 22 160/69 H 97 12/15/20 08:08 57 L 12/15/20 03:53 36.3 C L 58 L 20 165/76 H 93 12/14/20 23:49 36.6 C 67 20 145/78 H 94 Laboratory Results Short CBC 12/15/20 Range/Units 06:01 WBC 6.69 (4.8-10.8) K/uL Hgb 7.9 L (14.0-18.0) g/dL Hct 25.5 L (42-52) % Plt Count 205 (130-400) K/uL BMP 12/15/20 06:01 Sodium 143 Potassium 3.4 L Chloride 107 Carbon Dioxide 31 BUN 17 Creatinine 0.81 Glucose 73 Calcium 9.3 Medications Administered Current Inpatient Medications Acetaminophen (Acetaminophen 325 Mg Tab) 650 mg PO Q4H PRN PRN Reason: Pain or Fever Stop: 01/07/21 21:42 Last Admin: 12/14/20 20:29 Dose: 650 mg Documented by: Amlodipine Besylate (Amlodipine Besylate 5 Mg Tab) 10 mg PO DAILY ZOHAIB Stop: 01/08/21 08:59 Last Admin: 12/15/20 08:22 Dose: 10 mg Documented by: Atorvastatin Calcium (Atorvastatin 40 Mg Tab) 40 mg PO HS ZOHAIB Stop: 01/07/21 21:42 Last Admin: 12/14/20 20:30 Dose: 40 mg Documented by: Carvedilol (Carvedilol 25 Mg Tab) 25 mg PO BIDM ZOHAIB Stop: 01/09/21 16:59 Last Admin: 12/15/20 08:22 Dose: 25 mg Documented by: Dextrose (Dextrose 50% 50 Ml Syringe) 25 - 50 ml IV UD PRN; Protocol PRN Reason: Hypoglycemia Protocol Stop: 01/07/21 21:42 Docusate Sodium (Docusate Sodium 100 Mg Cap) 100 mg PO BID PRN PRN Reason: Constipation Stop: 01/07/21 21:42 Duloxetine HCl (Duloxetine Hcl 60 Mg Cap) 60 mg PO DAILY ZOHAIB Stop: 01/08/21 08:59 Last Admin: 12/15/20 08:23 Dose: 60 mg Documented by: Enoxaparin Sodium (Enoxaparin Inj 40 Mg/0.4 Ml Syr) 40 mg SQ Q12H ZOHAIB Stop: 01/07/21 21:59 Last Admin: 12/15/20 10:10 Dose: 40 mg Documented by: Gabapentin (Gabapentin 300 Mg Cap) 300 mg PO HS ZOHAIB Stop: 01/07/21 21:42 Last Admin: 12/14/20 20:30 Dose: 300 mg Documented by: Glucagon (Glucagon For Inj 1 Mg Vial) 1 mg SQ UD PRN; Protocol PRN Reason: Hypoglycemia Protocol Stop: 01/07/21 21:42 Glucose (Glucose 10 Tabs/Tube) 4 - 8 tabs PO UD PRN; Protocol PRN Reason: Hypoglycemia Protocol Stop: 01/07/21 21:42 Glucose (Glucose 40% Gel 15 Gm Tube) 15 - 30 gm PO UD PRN; Protocol PRN Reason: Hypoglycemia Protocol Stop: 01/07/21 21:42 Guaifenesin (Guaifenesin 600 Mg Tabcr) 1,200 mg PO Q12 ZOHAIB Stop: 01/12/21 20:59 Last Admin: 12/15/20 08:23 Dose: 1,200 mg Documented by: Heparin Sodium (Beef Lung) (Heparin 10 Unit/Ml 5 Ml Flush) 5 ml FLUSH PRN PRN PRN Reason: Flush Stop: 01/08/21 15:47 Last Admin: 12/15/20 10:06 Dose: 5 ml Documented by: Furosemide 40 mg/ Syringe 4 mls @ 4 mls/min IV DAILY ZOHAIB Stop: 01/11/21 08:59 Last Admin: 12/15/20 10:04 Dose: 4 mls/min Documented by: Ibuprofen (Ibuprofen 600 Mg Tab) 600 mg PO Q8H PRN PRN Reason: right hand pain Stop: 01/11/21 00:10 Insulin Aspart (Insulin Aspart 100 Units/Ml 3 Ml Pen) 0 units SC ACHS ZOHAIB Stop: 01/07/21 21:59 Last Admin: 12/15/20 08:23 Dose: 6 units Documented by: Insulin Glargine (Insulin Glargine Solostar 100 Units/Ml 3 Ml Pen) 25 units SC BID ZOHAIB Stop: 01/07/21 21:59 Last Admin: 12/15/20 08:25 Dose: 25 units Documented by: Lisinopril (Lisinopril 5 Mg Tab) 5 mg PO QAM [facility] Stop: 01/13/21 11:44 Last Admin: 12/15/20 08:23 Dose: 5 mg Documented by: Magnesium Hydroxide (Magnesium Hydroxide Susp 30 Ml Udc) 30 ml PO DAILY PRN PRN Reason: Constipation Stop: 01/07/21 21:42 Miscellaneous (Carbohydrates For Hypoglycemia ) 15 - 30 gm PO UD PRN PRN Reason: Hypoglycemia Protocol Stop: 01/07/21 21:42 Montelukast Sodium (Montelukast Sodium 10 Mg Tablet) 10 mg PO HS ZOHAIB Stop: 01/07/21 21:42 Last Admin: 12/14/20 20:29 Dose: 10 mg Documented by: Ondansetron HCl (Ondansetron Inj 2 Mg/Ml 2 Ml Vial) 4 mg IV Q6H PRN PRN Reason: Nausea Stop: 01/07/21 21:42 Pantoprazole Sodium (Pantoprazole 40 Mg Tab) 40 mg PO DAILY ZOHAIB Stop: 01/08/21 08:59 Last Admin: 12/15/20 08:23 Dose: 40 mg Documented by: Polyethylene Glycol (Polyethylene (Miralax) 17 Gm Pack) 17 gm PO DAILY PRN PRN Reason: Constipation Stop: 01/07/21 21:42 Potassium Chloride (Potassium Chloride Crtab 20 Meq Tabcr) 20 meq PO DAILY ZOHAIB Stop: 01/08/21 08:59 Last Admin: 12/15/20 08:29 Dose: 20 meq Documented by: Tamsulosin HCl (Tamsulosin Hcl 0.4 Mg Cap) 0.8 mg PO DAILY ZOHAIB Stop: 01/08/21 08:59 Last Admin: 12/15/20 08:23 Dose: 0.8 mg Documented by: Tramadol HCl (Tramadol Hcl 50 Mg Tablet) 50 mg PO Q4H PRN PRN Reason: Pain Stop: 01/09/21 14:08 Last Admin: 12/14/20 23:43 Dose: 50 mg Documented by: Umeclidinium/Vilanterol (Umeclidinium/Vilanterol 62.5/25mcg 7 Puffs/Inhaler) 1 puffs INH DAILY ZOHAIB Stop: 01/08/21 08:59 Last Admin: 12/15/20 09:51 Dose: 1 puffs Documented by: Vitamin D (Cholecalciferol 1,000 Units 25 Mcg Tab) 2,000 units PO DAILY ZOHAIB Stop: 01/08/21 08:59 Last Admin: 12/15/20 08:23 Dose: 2,000 units Documented by: (1) Bilateral pneumonia Lung location: lower lobe of lung Pneumonia type: due to unspecified organism Qualified Code(s): J18.9 - Pneumonia, unspecified organism (2) CHF (congestive heart failure) Heart failure chronicity: acute on chronic Heart failure type: unspecified Qualified Code(s): I50.9 - Heart failure, unspecified
[2020-12-15] MEDS: MONTELUKAST SODIUM 10 MG TABLET PO SCH (20:26)
[2020-12-15] MEDS: GABAPENTIN 300 MG CAP PO SCH (20:27)
[2020-12-15] MEDS: ATORVASTATIN 40 MG TAB PO SCH (20:27)
[2020-12-15 23:30] LABS: Hematocrit (blood only) 27.1 % (42-52); Hemoglobin 8.6 g/dL (14.0-18.0)
--- NOTE | 2020-12-16 00:48 | Hospitalist Progress Note ---
Date of Service December 16, 2020 Assessment & Plan Admission and Anticipated Discharge Date Admission Date: December 08, 2020 Subjective Stool joanne color and some blood smear on wipe as per Nursing staff. stool hemeocult positive. Hb 7.9 earlier. repeat hb 8.6. Holding lovenox. Npo, gentle fluids. Iv protonix 40mg bid. Gi consult in am. Will notify am providers. thanks Results & Data Results & Data ([facility]) Vital Signs (Past 12 Hours) Vital Signs Temp Pulse Pulse Resp BP Pulse Ox 12/15/20 23:15 36.6 C 74 20 189/93 H 92 12/15/20 19:37 36.5 C 73 20 145/78 H 93 12/15/20 15:57 67 12/15/20 15:39 36.5 C 64 20 142/68 H 100
--- NOTE | 2020-12-16 00:52 | Hospitalist Progress Note ---
Date of Service December 16, 2020 Assessment & Plan Admission and Anticipated Discharge Date Admission Date: December 08, 2020 Subjective Monitor fluid status as currently npo and on iv lasix. thanks Results & Data Results & Data ([facility]) Vital Signs (Past 12 Hours) Vital Signs Temp Pulse Pulse Resp BP Pulse Ox 12/15/20 23:15 36.6 C 74 20 189/93 H 92 12/15/20 19:37 36.5 C 73 20 145/78 H 93 12/15/20 15:57 67 12/15/20 15:39 36.5 C 64 20 142/68 H 100
[2020-12-16] MEDS: PANTOprazole 40 MG in SYRINGE 0 ML IV SCH ×3 (02:27→21:32)
[2020-12-16] MEDS: traMADol HCL 50 MG TABLET PO PRN ×2 (06:30→10:38)
[2020-12-16] MEDS: guaiFENesin 600 MG TABCR PO SCH ×2 (07:25→21:26)
[2020-12-16] MEDS: CHOLECALCIFEROL 1,000 UNITS 25 MCG TAB PO SCH (07:25)
[2020-12-16] MEDS: amLODIPine BESYLATE 5 MG TAB PO SCH (07:25)
[2020-12-16] MEDS: DULoxetine HCL 60 MG CAP PO SCH (07:25)
[2020-12-16] MEDS: lisinopril 5 MG TAB PO SCH (07:25)
[2020-12-16] MEDS: carvediloL 25 MG TAB PO SCH ×2 (07:25→17:28)
[2020-12-16] MEDS: TAMSULOSIN HCL 0.4 MG CAP PO SCH (07:25)
[2020-12-16] MEDS: ACETAMINOPHEN 325 MG TAB PO PRN (07:25)
[2020-12-16] MEDS: UMECLIDINIUM/VILANTEROL 62.5/25MCG 7 PUFFS/INHALER INH SCH (07:29)
[2020-12-16] MEDS: INSULIN ASPART 100 UNITS/ML 3 ML PEN SC SCH ×4 (08:09→21:27)
[2020-12-16] MEDS: INSULIN GLARGINE SOLOSTAR 100 UNITS/ML 3 ML PEN SC SCH ×2 (08:50→21:25)
[2020-12-16] MEDS: HYDROmorphone INJ 0.5 MG/0.5 ML SYR IV PRN (08:55)
[2020-12-16] MEDS: POTASSIUM CHLORIDE CRTAB 20 MEQ TABCR PO SCH (08:56)
--- NOTE | 2020-12-16 09:22 | Gastrointestinal Consultation ---
Date of Consultation December 16, 2020 Assessment & Plan (1) Rectal bleeding: Rectal bleeding consisting of brown stool with joanne blood - suspect a hemorrhoidal bleed though UGI bleed and diverticular bleeding are also considered. He is at risk for bleeding on Lovenox, agree with holding for now. Please observe/document outputs. Will plan for OP EGD/Colonoscopy but will re-evaluate if any further gross GI bleeding or if any drop in Hb/Hct, or increase in BUN. Present on Admission?: No Supervising Physician Co-Signing Physician Notes I performed a history and physical examination of the patient today, including specifically on physical exam - soft abdomen. I have discussed the patient's management with the advanced practitioner. Please refer to the nurse prac titioner's note for the documented findings and plan of care. No active bleeding today, H/h stable. EGD/colonoscopy as OP. Recall Gi if needed. History of Present Illness Reason for Consultation: anemia. gi bleed Requesting Physician: Dr. Chavez Attending Physician: Norm Bae MD History of Present Illness Mr. Haim Cheung is a 65yr old male pt with a hx of DM-2, CKD, obesity, FRANCIS, depression, CHF, who experienced COVID then pneumonia in October/November 2020 and has been hospitalized or in rehab since then. He is on Lovenox which was held this morning. He was transferred here from [facility] for worsening respiratory status on 12/08/20. GI is consulted for GI bleed. He passed on brown and joanne BM at 6:30- AM today, no BMs since that time. He is anemic, Hb 8.6 (down from 10.6 in Jul but stable compared to admission Hb of 8.8 on 12/08/20) , BUN is normal. Occult stool positive. He denies any abdominal pain, nausea or vomiting. He is hemodynamically stable though mildly tachycardic. No CP or SOB on O2 at 2L/min. Allergies Allergy/AdvReac Type Severity Reaction Status Date / Time No Known Allergies Allergy Verified 12/08/20 11:29 Home Medications Medication Instructions Recorded Confirmed Type Anoro Ellipta 1 inh INHALATION DAILY 11/29/20 12/08/20 History acetaminophen [Tylenol] 650 mg PO Q4 PRN 11/29/20 12/08/20 History amlodipine 10 mg PO DAILY 11/29/20 12/08/20 History atorvastatin 40 mg PO HS 11/29/20 12/08/20 History bumetanide 2 mg PO DAILY 11/29/20 12/08/20 History carvedilol 12.5 mg PO BIDM 11/29/20 12/08/20 History cholecalciferol (vitamin D3) 50 mcg PO DAILY 11/29/20 12/08/20 History [Vitamin D3] docusate sodium 100 mg PO BID PRN 11/29/20 12/08/20 History duloxetine 60 mg PO DAILY 11/29/20 12/08/20 History ferrous sulfate 325 mg PO BID 11/29/20 12/08/20 History gabapentin 300 mg PO HS 11/29/20 12/08/20 History insulin aspart U-100 [Novolog 5 unit SUBCUT TIDM 11/29/20 12/08/20 History U-100 Insulin aspart] insulin glargine 15 unit SUBCUT BID 11/29/20 12/08/20 History ipratropium-albuterol 1 puff INHALATION QID 11/29/20 12/08/20 History magnesium hydroxide [Milk of 30 ml PO DAILY PRN 11/29/20 12/08/20 History Magnesia] montelukast [Singulair] 10 mg PO HS 11/29/20 12/08/20 History pantoprazole [Protonix] 40 mg PO DAILY 11/29/20 12/08/20 History polyethylene glycol 3350 [Miralax] 17 g PO DAILY PRN 11/29/20 12/08/20 History potassium chloride 20 meq PO DAILY 11/29/20 12/08/20 History sennosides-docusate sodium 1 tab-cap PO .QLUNCH PRN 11/29/20 12/08/20 History [Senokot-S] sertraline 100 mg PO DAILY 11/29/20 12/08/20 History tamsulosin 0.8 mg PO DAILY 11/29/20 12/08/20 History Patient History Medical History (Updated 12/16/20 @ 10:36 by TÑOA Borrego) CHF (congestive heart failure) Coronary artery disease Depression Diabetes mellitus, type II Hyperlipidemia Hypertension Morbid obesity FRANCIS (obstructive sleep apnea) Pneumonia due to COVID-19 virus Venous insufficiency Surgical History H/O knee surgery Family History Other Throat cancer Social History Smoking Status: Never smoker Hx Alcohol Use: Yes Alcohol type: beer Hx Substance Use: No Preferred Language: Cymraes Communication Ability: Effective 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 Beliefs That Will Affect Care: None marital status: Single Current Living Situation: Rehab How many Children do You have: 0 Other Information That Helps Us Care for You: No Feels Safe at Home: Yes Safety Concerns: Feels Safe At This Time Assistive Devices: None Review of Systems Review of Systems: ROS: Gen: + general weakness No fevers or weight loss Eyes: No eye redness, or pain, no recent vision changes Resp: No SOB, no cough Cardio: No palpitations/irregular beats, no chest pain GI: As per HPI, otherwise (-) : Denies pain on urination Skin: No jaundice, itching or new rashes Physical Exam Constitutional: WD/WN, vitals as above + ill appearing (chronically), + obese and comfortable Eyes: PERRL, conjunctivae normal, anicteric sclerae ENMT: external ear and nose normal, oropharynx normal Neck: trachea midline, no thyromegaly Respiratory: normal respiratory effort, lungs clear to auscultation Diminished sounds at the bases Cardiovascular: Rate/Rhythm: regular rate and regular rhythm Extremities: + edema (mild bilat lower legs) Gastrointestinal (Abdomen): normal bowel sounds, soft, nontender, no hepatosplenomegaly Musculoskeletal: no cyanosis or clubbing, extremities motor strength 5/5 Skin: Both lower legs with mild redness and dry skin, chronic appearing. Results & Data ([facility]) Vital Signs (Past 12 Hours) Vital Signs Temp Pulse Pulse Resp BP Pulse Ox 12/16/20 07:16 65 12/16/20 07:12 36.7 C 68 18 160/81 H 93 12/16/20 03:43 71 12/16/20 03:37 36.6 C 66 20 172/75 H 96 12/15/20 23:15 36.6 C 74 20 189/93 H 92 Laboratory Results WBC 6, Hb 8.6, Hct 27, Plts 205, INR 1.1, Na 143, K 3.4, Cl 107, CO2 31, BUN 17, Cr0.8, glucose 165. Stool occult (+) Diagnostic Findings CXR 12/13/20: 1. Interval worsening of bilateral patchy airspace opacities likely representing multifocal pneumonia. Limited exam due to patient body habitus. 2. The rest of findings as detailed above.
[2020-12-16] MEDS: FUROSEMIDE 40 MG in SYRINGE 0 ML IV SCH (09:44)
--- NOTE | 2020-12-16 13:58 | Hospitalist Progress Note ---
Date of Service December 16, 2020 Assessment & Plan (1) Respiratory failure: Acute on chronic respiratory failure in setting of COVID-19 virus infection with recent post Covid pneumonitis. Now with worsening shortness of breath and worsening infiltrates. Has been on diuretics since admission and appears improved since then No indication for steroids or antibiotics at this time. Appreciate pulmonary input and recommendation Remains stable and seems to be improving a little bit Still requiring 3 L of oxygen via nasal cannula to maintain saturation Mucinex has been added to suppress cough Remains stable and has been on his baseline requirements of oxygen to maintain saturation Denies any increasing shortness of breath Hypertension Blood pressures remains on the upper side We will add lisinopril at a smaller dose Blood pressure remains in the upper side but seems to be stable Bright red rectal bleed Appreciate GI input and recommendation Hemoglobin dropped to 7.9 from 8.4 and back to 8.6 on repeat test Will discontinue any NSAID's, Lovenox is on hold We will monitor H&H (2) Bilateral pneumonia: Resolving, he has already received full course of antibiotics and steroids with no further indication for that now. Initial worsening dyspnea may have been related to atypical pulmonary edema in setting of covid pneumonitis which is improved after diuretics. Repeat chest x-ray did not show any improvement of the infiltration We will continue minimal doses of diuretics and supportive care Doubt any superinfection at this time Viral pneumonia and doubt any bacterial superinfection (3) COVID-19 virus infection: Received 1 dose of Tocilizumab upon initial diagnosis in mid October followed by a course of remdesivir and dexamethasone. Cont supportive care measures. We will continue PT and OT evaluation before sending back to [facility] He will be transferred to [facility] this afternoon (4) Flexor tenosynovitis of finger: Ibuprofen PRN, if pain becomes significant may consider contacting ortho for a splint/injection therapy. (5) CHF (congestive heart failure): compensated, cont daily IV Lasix, hold Bumex. Continue to monitor daily weights, strict I's and O's and low-salt diet Clinically no signs of fluid overload Has been on intravenous Lasix Will change oral furosemide at discharge (6) Anemia: Multifactorial in setting of multiple comorbidities and multiple recent hospitalizations. Noted to have bleeding per rectum last night Hemoglobin remained stable and GI evaluation is done Trend CBC and transfuse if needed. (7) Diabetes mellitus, type II: Currently holding outpatient regimen of insulin and utilizing weight-based multi daily dose insulin schedule in the hospital. Most recent A1c is 7.1 on 11/30/2020 Blood sugar remains stable (8) Depression: Patient noted to be on Cymbalta and sertraline. Kept Cymbalta in place and drop sertraline to avoid any serotonin syndrome. Will need to discuss this and optimize him prior to discharge. (9) Hypomagnesemia: improved. (10) DVT prophylaxis: Lovenox Full code Disposition-back to [facility] for additional inpatient rehab once medically stable. We will get PT and OT evaluation Transfer to [facility] after approval Admission and Anticipated Discharge Date Admission Date: December 08, 2020 Subjective 12/13/2020 The patient was seen and examined in telemetry unit He has been complaining of generalized weakness and ongoing cough Denies any increasing shortness of breath, fever and/or chills, any nausea and/or vomiting 12/14/2020 The patient was seen and examined in telemetry unit He still has the cough but feeling otherwise okay Has significant weakness and tiredness Has been saturating well with 2 L of nasal cannula oxygen 12/15/2020 The patient was seen and examined in medical telemetry unit He has been drowsy and weak but denies any other symptoms He has been saturating well with 2 L of nasal cannula oxygen His blood pressure seems to be reasonably controlled though remains on the higher side 12/16/2020 Patient was seen and examined in medical telemetry unit Has had joanne colored stool last night and none since this morning Denies any abdominal pain, nausea and/or vomiting Complains to have some pain in the right foot Review of Systems Review of Systems: All systems reviewed and are unremarkable except as noted below Respiratory: + cough and + dyspnea on exertion Musculoskeletal: + muscle weakness Right foot pain Physical Exam Physical Exam: Lying in bed comfortably Constitutional: well developed, well nourished and + obese; no acute distress Eyes: PERRL, conjunctivae normal, anicteric sclerae ENMT: external ear and nose normal, oropharynx normal Neck: trachea midline, no thyromegaly Respiratory: no respiratory distress Auscultation: + diminished lung sounds and + crackles (Bibasilar crackles more on the right than the left) Cardiovascular: Rate/Rhythm: regular rate and regular rhythm Heart Sounds: no murmur Extremities: + edema Gastrointestinal (Abdomen): Inspection/Auscultation: normal bowel sounds; abdomen not distended Percussion/Palpation: abdomen soft; abdomen nontender Musculoskeletal: Ankle: + deformity (Minimal swelling of the right ankle without any acute arthritis) Neurologic: Alert, awake and oriented x3. Generally weak Psychiatric: A+Ox3, euthymic affect Lymphatic: no cervical or axillary lymphadenopathy Results & Data Results & Data ([facility]) Vital Signs (Past 12 Hours) Vital Signs Temp Pulse Pulse Resp BP Pulse Ox 12/16/20 11:59 36.3 C L 54 L 16 127/74 95 12/16/20 07:16 65 12/16/20 07:12 36.7 C 68 18 160/81 H 93 12/16/20 03:43 71 12/16/20 03:37 36.6 C 66 20 172/75 H 96 Laboratory Results Short CBC 12/15/20 Range/Units 23:19 Hgb 8.6 L (14.0-18.0) g/dL Hct 27.1 L (42-52) % Medications Administered Current Inpatient Medications Acetaminophen (Acetaminophen 325 Mg Tab) 650 mg PO Q4H PRN PRN Reason: Pain or Fever Stop: 01/07/21 21:42 Last Admin: 12/16/20 07:25 Dose: 650 mg Documented by: Amlodipine Besylate (Amlodipine Besylate 5 Mg Tab) 10 mg PO DAILY [facility] Stop: 01/08/21 08:59 Last Admin: 12/16/20 07:25 Dose: 10 mg Documented by: Atorvastatin Calcium (Atorvastatin 40 Mg Tab) 40 mg PO HS [facility] Stop: 01/07/21 21:42 Last Admin: 12/15/20 20:27 Dose: 40 mg Documented by: Carvedilol (Carvedilol 25 Mg Tab) 25 mg PO BIDM [facility] Stop: 01/09/21 16:59 Last Admin: 12/16/20 07:25 Dose: 25 mg Documented by: Dextrose (Dextrose 50% 50 Ml Syringe) 25 - 50 ml IV UD PRN; Protocol PRN Reason: Hypoglycemia Protocol Stop: 01/07/21 21:42 Docusate Sodium (Docusate Sodium 100 Mg Cap) 100 mg PO BID PRN PRN Reason: Constipation Stop: 01/07/21 21:42 Duloxetine HCl (Duloxetine Hcl 60 Mg Cap) 60 mg PO DAILY [facility] Stop: 01/08/21 08:59 Last Admin: 12/16/20 07:25 Dose: 60 mg Documented by: Enoxaparin Sodium (Enoxaparin Inj 40 Mg/0.4 Ml Syr) 40 mg SQ Q12H [facility] Stop: 01/07/21 21:59 Last Admin: 12/15/20 20:27 Dose: 40 mg Documented by: Gabapentin (Gabapentin 300 Mg Cap) 300 mg PO HS [facility] Stop: 01/07/21 21:42 Last Admin: 12/15/20 20:27 Dose: 300 mg Documented by: Glucagon (Glucagon For Inj 1 Mg Vial) 1 mg SQ UD PRN; Protocol PRN Reason: Hypoglycemia Protocol Stop: 01/07/21 21:42 Glucose (Glucose 10 Tabs/Tube) 4 - 8 tabs PO UD PRN; Protocol PRN Reason: Hypoglycemia Protocol Stop: 01/07/21 21:42 Glucose (Glucose 40% Gel 15 Gm Tube) 15 - 30 gm PO UD PRN; Protocol PRN Reason: Hypoglycemia Protocol Stop: 01/07/21 21:42 Guaifenesin (Guaifenesin 600 Mg Tabcr) 1,200 mg PO Q12 [facility] Stop: 01/12/21 20:59 Last Admin: 12/16/20 07:25 Dose: 1,200 mg Documented by: Heparin Sodium (Beef Lung) (Heparin 10 Unit/Ml 5 Ml Flush) 5 ml FLUSH PRN PRN PRN Reason: Flush Stop: 01/08/21 15:47 Last Admin: 12/16/20 11:43 Dose: 5 ml Documented by: Hydromorphone HCl (Hydromorphone Inj 0.5 Mg/0.5 Ml Syr) 0.5 mg IV Q8H PRN PRN Reason: Pain Stop: 12/30/20 08:37 Last Admin: 12/16/20 08:55 Dose: 0.5 mg Documented by: Furosemide 40 mg/ Syringe 4 mls @ 4 mls/min IV DAILY [facility] Stop: 01/11/21 08:59 Last Admin: 12/16/20 09:44 Dose: 4 mls/min Documented by: Pantoprazole Sodium 40 mg/ (Syringe) 10 mls @ 5 mls/min IV BID [facility] Stop: 01/15/21 00:59 Last Admin: 12/16/20 09:44 Dose: 5 mls/min Documented by: Insulin Aspart (Insulin Aspart 100 Units/Ml 3 Ml Pen) 0 units SC ACHS [facility] Stop: 01/07/21 21:59 Last Admin: 12/16/20 12:07 Dose: 3 units Documented by: Insulin Glargine (Insulin Glargine Solostar 100 Units/Ml 3 Ml Pen) 25 units SC BID [facility] Stop: 01/07/21 21:59 Last Admin: 12/16/20 08:50 Dose: Not Given Documented by: Lisinopril (Lisinopril 5 Mg Tab) 5 mg PO QAM [facility] Stop: 01/13/21 11:44 Last Admin: 12/16/20 07:25 Dose: 5 mg Documented by: Magnesium Hydroxide (Magnesium Hydroxide Susp 30 Ml Udc) 30 ml PO DAILY PRN PRN Reason: Constipation Stop: 01/07/21 21:42 Miscellaneous (Carbohydrates For Hypoglycemia ) 15 - 30 gm PO UD PRN PRN Reason: Hypoglycemia Protocol Stop: 01/07/21 21:42 Montelukast Sodium (Montelukast Sodium 10 Mg Tablet) 10 mg PO HS [facility] Stop: 01/07/21 21:42 Last Admin: 12/15/20 20:26 Dose: 10 mg Documented by: Ondansetron HCl (Ondansetron Inj 2 Mg/Ml 2 Ml Vial) 4 mg IV Q6H PRN PRN Reason: Nausea Stop: 01/07/21 21:42 Pantoprazole Sodium (Pantoprazole 40 Mg Tab) 40 mg PO DAILY [facility] Stop: 01/08/21 08:59 Last Admin: 12/15/20 08:23 Dose: 40 mg Documented by: Polyethylene Glycol (Polyethylene (Miralax) 17 Gm Pack) 17 gm PO DAILY PRN PRN Reason: Constipation Stop: 01/07/21 21:42 Potassium Chloride (Potassium Chloride Crtab 20 Meq Tabcr) 20 meq PO DAILY [facility] Stop: 01/08/21 08:59 Last Admin: 12/16/20 08:56 Dose: 20 meq Documented by: Tamsulosin HCl (Tamsulosin Hcl 0.4 Mg Cap) 0.8 mg PO DAILY [facility] Stop: 01/08/21 08:59 Last Admin: 12/16/20 07:25 Dose: 0.8 mg Documented by: Tramadol HCl (Tramadol Hcl 50 Mg Tablet) 50 mg PO Q4H PRN PRN Reason: Pain Stop: 01/09/21 14:08 Last Admin: 12/16/20 10:38 Dose: 50 mg Documented by: Umeclidinium/Vilanterol (Umeclidinium/Vilanterol 62.5/25mcg 7 Puffs/Inhaler) 1 puffs INH DAILY [facility] Stop: 01/08/21 08:59 Last Admin: 12/16/20 07:29 Dose: 1 puffs Documented by: Vitamin D (Cholecalciferol 1,000 Units 25 Mcg Tab) 2,000 units PO DAILY [facility] Stop: 01/08/21 08:59 Last Admin: 12/16/20 07:25 Dose: 2,000 units Documented by: (1) Bilateral pneumonia Lung location: lower lobe of lung Pneumonia type: due to unspecified organism Qualified Code(s): J18.9 - Pneumonia, unspecified organism (2) CHF (congestive heart failure) Heart failure chronicity: acute on chronic Heart failure type: unspecified Qualified Code(s): I50.9 - Heart failure, unspecified
[2020-12-16] MEDS: ATORVASTATIN 40 MG TAB PO SCH (21:26)
[2020-12-16] MEDS: GABAPENTIN 300 MG CAP PO SCH (21:28)
[2020-12-16] MEDS: MONTELUKAST SODIUM 10 MG TABLET PO SCH (21:28)
[2020-12-17] MEDS: HYDROmorphone INJ 0.5 MG/0.5 ML SYR IV PRN (01:06)
[2020-12-17] MEDS: traMADol HCL 50 MG TABLET PO PRN (04:26)
[2020-12-17 08:43] LABS: Hematocrit (blood only) 29.3 % (42-52); Hemoglobin 9.3 g/dL (14.0-18.0); Mean Corpuscular Hemoglobin 29.2 pg (25-34); Mean Corpuscular Hgb Conc 31.7 g/dL (32-36); Mean Corpuscular Volume 91.8 fL (80-100); Mean Platelet Volume 9.2 fL (7.4-10.4); Platelet Count 321 K/uL (130-400); RDW Coefficient of Variation 15.8 % (11.5-14.5); RDW Standard Deviation 53.1 fL (36.4-46.3); Red Blood Count 3.19 M/uL (4.7-6.1); White Blood Count 9.74 K/uL (4.8-10.8)
[2020-12-17] MEDS: CHOLECALCIFEROL 1,000 UNITS 25 MCG TAB PO SCH (08:52)
[2020-12-17] MEDS: carvediloL 25 MG TAB PO SCH ×2 (08:53→17:29)
[2020-12-17] MEDS: lisinopril 5 MG TAB PO SCH (08:53)
[2020-12-17] MEDS: DULoxetine HCL 60 MG CAP PO SCH (08:53)
[2020-12-17] MEDS: amLODIPine BESYLATE 5 MG TAB PO SCH (08:53)
[2020-12-17] MEDS: guaiFENesin 600 MG TABCR PO SCH ×2 (08:54→21:09)
[2020-12-17] MEDS: TAMSULOSIN HCL 0.4 MG CAP PO SCH (08:54)
[2020-12-17] MEDS: FUROSEMIDE 40 MG in SYRINGE 0 ML IV SCH (08:54)
[2020-12-17] MEDS: PANTOprazole 40 MG in SYRINGE 0 ML IV SCH ×2 (08:54→21:11)
[2020-12-17] MEDS: UMECLIDINIUM/VILANTEROL 62.5/25MCG 7 PUFFS/INHALER INH SCH (08:55)
[2020-12-17] MEDS: INSULIN ASPART 100 UNITS/ML 3 ML PEN SC SCH ×4 (08:59→20:36)
[2020-12-17 09:00] LABS: Basophils # (auto) 0.03 K/uL (0-0.2); Basophils % (auto) 0.3 %; Eosinophils # (auto) 0.24 K/uL (0-0.5); Eosinophils % (auto) 2.5 %; Immature Granulocytes # (auto) 0.09 K/uL (0.00-0.02); Immature Granulocytes % (auto) 0.9 %; Lymphocytes # (auto) 1.66 K/uL (1.2-3.4); Monocytes # (auto) 0.73 K/uL (0.11-0.59); Monocytes % (auto) 7.5 %; Neutrophils # (auto) 6.99 K/uL (1.4-6.5); Neutrophils % (auto) 71.8 %
[2020-12-17 09:17] LABS: BUN Creatinine Ratio 20.2 (10-20); Calcium 10.2 mg/dl (8.5-10.1); Creatinine Clr Calc Pharmacy 127.1 ml/min; Est GFR (African American) 102.2 ml/min; Est GFR (Non-African American) 88.2 ml/min; Potassium 4.5 mmol/L (3.5-5.1)
[2020-12-17] MEDS: POTASSIUM CHLORIDE CRTAB 20 MEQ TABCR PO SCH (09:43)
[2020-12-17] MEDS: INSULIN GLARGINE SOLOSTAR 100 UNITS/ML 3 ML PEN SC SCH ×2 (09:43→21:11)
--- NOTE | 2020-12-17 12:13 | Hospitalist Progress Note ---
Date of Service December 17, 2020 Assessment & Plan (1) Respiratory failure: Acute on chronic respiratory failure in setting of COVID-19 virus infection with recent post Covid pneumonitis. Now with worsening shortness of breath and worsening infiltrates. Has been on diuretics since admission and appears improved since then No indication for steroids or antibiotics at this time. Appreciate pulmonary input and recommendation Remains stable and seems to be improving a little bit Still requiring 3 L of oxygen via nasal cannula to maintain saturation Mucinex has been added to suppress cough Remains stable and has been on his baseline requirements of oxygen to maintain saturation Denies any increasing shortness of breath and maintaining normal saturation with 2 L of nasal cannula oxygen Hypertension Blood pressures remains on the upper side We will add lisinopril at a smaller dose Blood pressure remains in the upper side but seems to be stable Blood pressure is controlled with addition of lisinopril Bright red rectal bleed Appreciate GI input and recommendation Hemoglobin dropped to 7.9 from 8.4 and back to 8.6 on repeat test Will discontinue any NSAID's, Lovenox is on hold We will monitor H&H Hemoglobin remains more than 9 (2) Bilateral pneumonia: Resolving, he has already received full course of antibiotics and steroids with no further indication for that now. Initial worsening dyspnea may have been related to atypical pulmonary edema in setting of covid pneumonitis which is improved after diuretics. Repeat chest x-ray did not show any improvement of the infiltration We will continue minimal doses of diuretics and supportive care Doubt any superinfection at this time Viral pneumonia and doubt any bacterial superinfection (3) COVID-19 virus infection: Received 1 dose of Tocilizumab upon initial diagnosis in mid October followed by a course of remdesivir and dexamethasone. Cont supportive care measures. We will continue PT and OT evaluation before sending back to [facility] He will be transferred to [facility] this afternoon (4) Flexor tenosynovitis of finger: Ibuprofen PRN, if pain becomes significant may consider contacting ortho for a splint/injection therapy. (5) CHF (congestive heart failure): compensated, cont daily IV Lasix, hold Bumex. Continue to monitor daily weights, strict I's and O's and low-salt diet Clinically no signs of fluid overload Has been on intravenous Lasix Will change oral furosemide at discharge No signs and/or symptoms of fluid overload (6) Anemia: Multifactorial in setting of multiple comorbidities and multiple recent hospitalizations. Noted to have bleeding per rectum last night Hemoglobin remained stable and GI evaluation is done Trend CBC and transfuse if needed-hemoglobin more than 9. (7) Diabetes mellitus, type II: Currently holding outpatient regimen of insulin and utilizing weight-based multi daily dose insulin schedule in the hospital. Most recent A1c is 7.1 on 11/30/2020 Blood sugar remains stable (8) Depression: Patient noted to be on Cymbalta and sertraline. Kept Cymbalta in place and drop sertraline to avoid any serotonin syndrome. Will need to discuss this and optimize him prior to discharge. (9) Hypomagnesemia: improved. (10) DVT prophylaxis: Lovenox Full code Disposition-back to [facility] for additional inpatient rehab once medically stable. We will get PT and OT evaluation Transfer to [facility] after approval Admission and Anticipated Discharge Date Admission Date: December 08, 2020 Subjective 12/13/2020 The patient was seen and examined in telemetry unit He has been complaining of generalized weakness and ongoing cough Denies any increasing shortness of breath, fever and/or chills, any nausea and/or vomiting 12/14/2020 The patient was seen and examined in telemetry unit He still has the cough but feeling otherwise okay Has significant weakness and tiredness Has been saturating well with 2 L of nasal cannula oxygen 12/15/2020 The patient was seen and examined in medical telemetry unit He has been drowsy and weak but denies any other symptoms He has been saturating well with 2 L of nasal cannula oxygen His blood pressure seems to be reasonably controlled though remains on the higher side 12/16/2020 Patient was seen and examined in medical telemetry unit Has had joanne colored stool last night and none since this morning Denies any abdominal pain, nausea and/or vomiting Complains to have some pain in the right foot 12/17/2020 The patient was seen and examined in medical telemetry unit He has been much better today and sitting at the edge of the bed Minimal shortness of breath with cough No more bleeding per rectum Review of Systems Review of Systems: All systems reviewed and are unremarkable except as noted below Respiratory: + cough and + dyspnea on exertion Musculoskeletal: + muscle weakness Right foot pain Physical Exam Physical Exam: Sitting at the edge of the bed without any acute distress Constitutional: well developed, well nourished and + obese; no acute distress Eyes: PERRL, conjunctivae normal, anicteric sclerae ENMT: external ear and nose normal, oropharynx normal Neck: trachea midline, no thyromegaly Respiratory: no respiratory distress Auscultation: + diminished lung sounds and + crackles (Bibasilar crackles more on the right than the left) Cardiovascular: Rate/Rhythm: regular rate and regular rhythm Heart Sounds: no murmur Extremities: + edema Gastrointestinal (Abdomen): Inspection/Auscultation: normal bowel sounds; abdomen not distended Percussion/Palpation: abdomen soft; abdomen nontender Musculoskeletal: Ankle: + deformity (Minimal swelling of the right ankle without any acute arthritis) Neurologic: Alert, awake and oriented x3. Generally weak Psychiatric: A+Ox3, euthymic affect Lymphatic: no cervical or axillary lymphadenopathy Results & Data Results & Data ([facility]) Vital Signs (Past 12 Hours) Vital Signs Temp Pulse Pulse Resp BP BP Pulse Ox 12/17/20 11:21 36.4 C L 59 L 20 132/76 100 12/17/20 07:42 55 L 12/17/20 07:20 36.3 C L 62 18 175/78 H 90 12/17/20 05:02 54 L 12/17/20 04:39 36.4 C L 61 18 146/83 H 96 Laboratory Results Short CBC 12/17/20 Range/Units 08:14 WBC 9.74 (4.8-10.8) K/uL Hgb 9.3 L (14.0-18.0) g/dL Hct 29.3 L (42-52) % Plt Count 321 (130-400) K/uL BMP 12/17/20 08:14 Sodium 139 Potassium 4.5 Chloride 105 Carbon Dioxide 28 BUN 19 H Creatinine 0.92 Glucose 79 Calcium 10.2 H Medications Administered Current Inpatient Medications Acetaminophen (Acetaminophen 325 Mg Tab) 650 mg PO Q4H PRN PRN Reason: Pain or Fever Stop: 01/07/21 21:42 Last Admin: 12/16/20 07:25 Dose: 650 mg Documented by: Amlodipine Besylate (Amlodipine Besylate 5 Mg Tab) 10 mg PO DAILY [facility] Stop: 01/08/21 08:59 Last Admin: 12/17/20 08:53 Dose: 10 mg Documented by: Atorvastatin Calcium (Atorvastatin 40 Mg Tab) 40 mg PO HS [facility] Stop: 01/07/21 21:42 Last Admin: 12/16/20 21:26 Dose: 40 mg Documented by: Carvedilol (Carvedilol 25 Mg Tab) 25 mg PO BIDM [facility] Stop: 01/09/21 16:59 Last Admin: 12/17/20 08:53 Dose: 25 mg Documented by: Dextrose (Dextrose 50% 50 Ml Syringe) 25 - 50 ml IV UD PRN; Protocol PRN Reason: Hypoglycemia Protocol Stop: 01/07/21 21:42 Docusate Sodium (Docusate Sodium 100 Mg Cap) 100 mg PO BID PRN PRN Reason: Constipation Stop: 01/07/21 21:42 Duloxetine HCl (Duloxetine Hcl 60 Mg Cap) 60 mg PO DAILY [facility] Stop: 01/08/21 08:59 Last Admin: 12/17/20 08:53 Dose: 60 mg Documented by: Enoxaparin Sodium (Enoxaparin Inj 40 Mg/0.4 Ml Syr) 40 mg SQ Q12H [facility] Stop: 01/07/21 21:59 Last Admin: 12/15/20 20:27 Dose: 40 mg Documented by: Gabapentin (Gabapentin 300 Mg Cap) 300 mg PO HS [facility] Stop: 01/07/21 21:42 Last Admin: 12/16/20 21:28 Dose: 300 mg Documented by: Glucagon (Glucagon For Inj 1 Mg Vial) 1 mg SQ UD PRN; Protocol PRN Reason: Hypoglycemia Protocol Stop: 01/07/21 21:42 Glucose (Glucose 10 Tabs/Tube) 4 - 8 tabs PO UD PRN; Protocol PRN Reason: Hypoglycemia Protocol Stop: 01/07/21 21:42 Glucose (Glucose 40% Gel 15 Gm Tube) 15 - 30 gm PO UD PRN; Protocol PRN Reason: Hypoglycemia Protocol Stop: 01/07/21 21:42 Guaifenesin (Guaifenesin 600 Mg Tabcr) 1,200 mg PO Q12 [facility] Stop: 01/12/21 20:59 Last Admin: 12/17/20 08:54 Dose: 1,200 mg Documented by: Heparin Sodium (Beef Lung) (Heparin 10 Unit/Ml 5 Ml Flush) 5 ml FLUSH PRN PRN PRN Reason: Flush Stop: 01/08/21 15:47 Last Admin: 12/17/20 09:00 Dose: 5 ml Documented by: Hydromorphone HCl (Hydromorphone Inj 0.5 Mg/0.5 Ml Syr) 0.5 mg IV Q8H PRN PRN Reason: Pain Stop: 12/30/20 08:37 Last Admin: 12/17/20 01:06 Dose: 0.5 mg Documented by: Furosemide 40 mg/ Syringe 4 mls @ 4 mls/min IV DAILY [facility] Stop: 01/11/21 08:59 Last Admin: 12/17/20 08:54 Dose: 4 mls/min Documented by: Pantoprazole Sodium 40 mg/ (Syringe) 10 mls @ 5 mls/min IV BID [facility] Stop: 01/15/21 00:59 Last Admin: 12/17/20 08:54 Dose: 5 mls/min Documented by: Insulin Aspart (Insulin Aspart 100 Units/Ml 3 Ml Pen) 0 units SC ACHS [facility] Stop: 01/07/21 21:59 Last Admin: 12/17/20 12:05 Dose: 3 units Documented by: Insulin Glargine (Insulin Glargine Solostar 100 Units/Ml 3 Ml Pen) 25 units SC BID [facility] Stop: 01/07/21 21:59 Last Admin: 12/17/20 09:43 Dose: Not Given Documented by: Lisinopril (Lisinopril 5 Mg Tab) 5 mg PO QAM [facility] Stop: 01/13/21 11:44 Last Admin: 12/17/20 08:53 Dose: 5 mg Documented by: Magnesium Hydroxide (Magnesium Hydroxide Susp 30 Ml Udc) 30 ml PO DAILY PRN PRN Reason: Constipation Stop: 01/07/21 21:42 Miscellaneous (Carbohydrates For Hypoglycemia ) 15 - 30 gm PO UD PRN PRN Reason: Hypoglycemia Protocol Stop: 01/07/21 21:42 Montelukast Sodium (Montelukast Sodium 10 Mg Tablet) 10 mg PO HS [facility] Stop: 01/07/21 21:42 Last Admin: 12/16/20 21:28 Dose: 10 mg Documented by: Ondansetron HCl (Ondansetron Inj 2 Mg/Ml 2 Ml Vial) 4 mg IV Q6H PRN PRN Reason: Nausea Stop: 01/07/21 21:42 Pantoprazole Sodium (Pantoprazole 40 Mg Tab) 40 mg PO DAILY [facility] Stop: 01/08/21 08:59 Last Admin: 12/15/20 08:23 Dose: 40 mg Documented by: Polyethylene Glycol (Polyethylene (Miralax) 17 Gm Pack) 17 gm PO DAILY PRN PRN Reason: Constipation Stop: 01/07/21 21:42 Potassium Chloride (Potassium Chloride Crtab 20 Meq Tabcr) 20 meq PO DAILY [facility] Stop: 01/08/21 08:59 Last Admin: 12/17/20 09:43 Dose: 20 meq Documented by: Tamsulosin HCl (Tamsulosin Hcl 0.4 Mg Cap) 0.8 mg PO DAILY [facility] Stop: 01/08/21 08:59 Last Admin: 12/17/20 08:54 Dose: 0.8 mg Documented by: Tramadol HCl (Tramadol Hcl 50 Mg Tablet) 50 mg PO Q4H PRN PRN Reason: Pain Stop: 01/09/21 14:08 Last Admin: 12/17/20 04:26 Dose: 50 mg Documented by: Umeclidinium/Vilanterol (Umeclidinium/Vilanterol 62.5/25mcg 7 Puffs/Inhaler) 1 puffs INH DAILY [facility] Stop: 01/08/21 08:59 Last Admin: 12/17/20 08:55 Dose: 1 puffs Documented by: Vitamin D (Cholecalciferol 1,000 Units 25 Mcg Tab) 2,000 units PO DAILY [facility] Stop: 01/08/21 08:59 Last Admin: 12/17/20 08:52 Dose: 2,000 units Documented by: (1) Bilateral pneumonia Lung location: lower lobe of lung Pneumonia type: due to unspecified organism Qualified Code(s): J18.9 - Pneumonia, unspecified organism (2) CHF (congestive heart failure) Heart failure chronicity: acute on chronic Heart failure type: unspecified Qualified Code(s): I50.9 - Heart failure, unspecified
[2020-12-17] MEDS: MONTELUKAST SODIUM 10 MG TABLET PO SCH (21:09)
[2020-12-17] MEDS: ATORVASTATIN 40 MG TAB PO SCH (21:10)
[2020-12-17] MEDS: GABAPENTIN 300 MG CAP PO SCH (21:10)
[2020-12-18] MEDS: UMECLIDINIUM/VILANTEROL 62.5/25MCG 7 PUFFS/INHALER INH SCH (09:17)
[2020-12-18] MEDS: amLODIPine BESYLATE 5 MG TAB PO SCH (09:17)
[2020-12-18] MEDS: guaiFENesin 600 MG TABCR PO SCH ×2 (09:17→20:06)
[2020-12-18] MEDS: DULoxetine HCL 60 MG CAP PO SCH (09:17)
[2020-12-18] MEDS: TAMSULOSIN HCL 0.4 MG CAP PO SCH (09:17)
[2020-12-18] MEDS: INSULIN GLARGINE SOLOSTAR 100 UNITS/ML 3 ML PEN SC SCH ×2 (09:17→21:26)
[2020-12-18] MEDS: FUROSEMIDE 40 MG in SYRINGE 0 ML IV SCH (09:17)
[2020-12-18] MEDS: CHOLECALCIFEROL 1,000 UNITS 25 MCG TAB PO SCH (09:17)
[2020-12-18] MEDS: carvediloL 25 MG TAB PO SCH ×2 (09:17→17:25)
[2020-12-18] MEDS: PANTOprazole 40 MG in SYRINGE 0 ML IV SCH ×2 (09:17→20:07)
[2020-12-18] MEDS: lisinopril 5 MG TAB PO SCH (09:17)
[2020-12-18] MEDS: INSULIN ASPART 100 UNITS/ML 3 ML PEN SC SCH ×4 (09:19→21:25)
[2020-12-18] MEDS: POTASSIUM CHLORIDE CRTAB 20 MEQ TABCR PO SCH (09:24)
--- NOTE | 2020-12-18 12:36 | Hospitalist Progress Note ---
Date of Service December 18, 2020 Assessment & Plan (1) Respiratory failure: Acute on chronic respiratory failure in setting of COVID-19 virus infection with recent post Covid pneumonitis. Now with worsening shortness of breath and worsening infiltrates. Has been on diuretics since admission and appears improved since then No indication for steroids or antibiotics at this time. Appreciate pulmonary input and recommendation Remains stable and seems to be improving a little bit Still requiring 3 L of oxygen via nasal cannula to maintain saturation Mucinex has been added to suppress cough Remains stable and has been on his baseline requirements of oxygen to maintain saturation Denies any increasing shortness of breath and maintaining normal saturation with 2 L of nasal cannula oxygen Remains stable Hypertension Blood pressures remains on the upper side We will add lisinopril at a smaller dose Blood pressure remains in the upper side but seems to be stable Blood pressure is controlled with addition of lisinopril BP is well controlled Bright red rectal bleed Appreciate GI input and recommendation Hemoglobin dropped to 7.9 from 8.4 and back to 8.6 on repeat test Will discontinue any NSAID's, Lovenox is on hold We will monitor H&H Hemoglobin remains more than 9 We will check CBC tomorrow (2) Bilateral pneumonia: Resolving, he has already received full course of antibiotics and steroids with no further indication for that now. Initial worsening dyspnea may have been related to atypical pulmonary edema in setting of covid pneumonitis which is improved after diuretics. Repeat chest x-ray did not show any improvement of the infiltration We will continue minimal doses of diuretics and supportive care Doubt any superinfection at this time Viral pneumonia and doubt any bacterial superinfection (3) COVID-19 virus infection: Received 1 dose of Tocilizumab upon initial diagnosis in mid October followed by a course of remdesivir and dexamethasone. Cont supportive care measures. We will continue PT and OT evaluation before sending back to [facility] He will be transferred to [facility] this afternoon (4) Flexor tenosynovitis of finger: Ibuprofen PRN, if pain becomes significant may consider contacting ortho for a splint/injection therapy. (5) CHF (congestive heart failure): compensated, cont daily IV Lasix, hold Bumex. Continue to monitor daily weights, strict I's and O's and low-salt diet Clinically no signs of fluid overload Has been on intravenous Lasix Will change oral furosemide at discharge No signs and/or symptoms of fluid overload (6) Anemia: Multifactorial in setting of multiple comorbidities and multiple recent hospitalizations. Noted to have bleeding per rectum last night Hemoglobin remained stable and GI evaluation is done Trend CBC and transfuse if needed-hemoglobin more than 9. (7) Diabetes mellitus, type II: Currently holding outpatient regimen of insulin and utilizing weight-based multi daily dose insulin schedule in the hospital. Most recent A1c is 7.1 on Blood sugar remains stable (8) Depression: Patient noted to be on Cymbalta and sertraline. Kept Cymbalta in place and drop sertraline to avoid any serotonin syndrome. Will need to discuss this and optimize him prior to discharge. No acute issues (9) Hypomagnesemia: improved. (10) DVT prophylaxis: Lovenox Full code Disposition-back to [facility] for additional inpatient rehab once medically stable. We will get PT and OT evaluation Transfer to [facility] after approval Admission and Anticipated Discharge Date Admission Date: December 08, 2020 Subjective 12/13/2020 The patient was seen and examined in telemetry unit He has been complaining of generalized weakness and ongoing cough Denies any increasing shortness of breath, fever and/or chills, any nausea and/or vomiting 12/14/2020 The patient was seen and examined in telemetry unit He still has the cough but feeling otherwise okay Has significant weakness and tiredness Has been saturating well with 2 L of nasal cannula oxygen 12/15/2020 The patient was seen and examined in medical telemetry unit He has been drowsy and weak but denies any other symptoms He has been saturating well with 2 L of nasal cannula oxygen His blood pressure seems to be reasonably controlled though remains on the higher side 12/16/2020 Patient was seen and examined in medical telemetry unit Has had joanne colored stool last night and none since this morning Denies any abdominal pain, nausea and/or vomiting Complains to have some pain in the right foot 12/17/2020 The patient was seen and examined in medical telemetry unit He has been much better today and sitting at the edge of the bed Minimal shortness of breath with cough No more bleeding per rectum 12/18/2020 The patient was seen and examined in medical telemetry unit He has been stable and feels a lot better Denies any shortness of breath at rest but has minimal cough Denies any other symptoms Review of Systems Review of Systems: All systems reviewed and are unremarkable except as noted below Respiratory: + cough and + dyspnea on exertion Musculoskeletal: + muscle weakness Right foot pain Physical Exam Physical Exam: Sitting at the edge of the bed without any acute distress Constitutional: well developed, well nourished and + obese; no acute distress Eyes: PERRL, conjunctivae normal, anicteric sclerae ENMT: external ear and nose normal, oropharynx normal Neck: trachea midline, no thyromegaly Respiratory: no respiratory distress Auscultation: + diminished lung sounds and + crackles (Bibasilar crackles more on the right than the left) Cardiovascular: Rate/Rhythm: regular rate and regular rhythm Heart Sounds: no murmur Extremities: + edema Gastrointestinal (Abdomen): Inspection/Auscultation: normal bowel sounds; abdomen not distended Percussion/Palpation: abdomen soft; abdomen nontender Musculoskeletal: Ankle: + deformity (Minimal swelling of the right ankle without any acute arthritis) Neurologic: Alert, awake and oriented x3. Generally weak without any focal neuro deficit Psychiatric: A+Ox3, euthymic affect Lymphatic: no cervical or axillary lymphadenopathy Results & Data Results & Data ([facility]) Vital Signs (Past 12 Hours) Vital Signs Temp Pulse Pulse Resp BP Pulse Ox 12/18/20 08:01 36.7 C 98 H 20 118/76 98 12/18/20 07:17 59 L 12/18/20 04:01 36.4 C L 57 L 18 137/60 96 Medications Administered Current Inpatient Medications Acetaminophen (Acetaminophen 325 Mg Tab) 650 mg PO Q4H PRN PRN Reason: Pain or Fever Stop: 01/07/21 21:42 Last Admin: 12/16/20 07:25 Dose: 650 mg Documented by: Amlodipine Besylate (Amlodipine Besylate 5 Mg Tab) 10 mg PO DAILY [facility] Stop: 01/08/21 08:59 Last Admin: 12/18/20 09:17 Dose: 10 mg Documented by: Atorvastatin Calcium (Atorvastatin 40 Mg Tab) 40 mg PO HS [facility] Stop: 01/07/21 21:42 Last Admin: 12/17/20 21:10 Dose: 40 mg Documented by: Carvedilol (Carvedilol 25 Mg Tab) 25 mg PO BIDM [facility] Stop: 01/09/21 16:59 Last Admin: 12/18/20 09:17 Dose: 25 mg Documented by: Dextrose (Dextrose 50% 50 Ml Syringe) 25 - 50 ml IV UD PRN; Protocol PRN Reason: Hypoglycemia Protocol Stop: 01/07/21 21:42 Docusate Sodium (Docusate Sodium 100 Mg Cap) 100 mg PO BID PRN PRN Reason: Constipation Stop: 01/07/21 21:42 Duloxetine HCl (Duloxetine Hcl 60 Mg Cap) 60 mg PO DAILY [facility] Stop: 01/08/21 08:59 Last Admin: 12/18/20 09:17 Dose: 60 mg Documented by: Enoxaparin Sodium (Enoxaparin Inj 40 Mg/0.4 Ml Syr) 40 mg SQ Q12H [facility] Stop: 01/07/21 21:59 Last Admin: 12/15/20 20:27 Dose: 40 mg Documented by: Gabapentin (Gabapentin 300 Mg Cap) 300 mg PO HS [facility] Stop: 01/07/21 21:42 Last Admin: 12/17/20 21:10 Dose: 300 mg Documented by: Glucagon (Glucagon For Inj 1 Mg Vial) 1 mg SQ UD PRN; Protocol PRN Reason: Hypoglycemia Protocol Stop: 01/07/21 21:42 Glucose (Glucose 10 Tabs/Tube) 4 - 8 tabs PO UD PRN; Protocol PRN Reason: Hypoglycemia Protocol Stop: 01/07/21 21:42 Glucose (Glucose 40% Gel 15 Gm Tube) 15 - 30 gm PO UD PRN; Protocol PRN Reason: Hypoglycemia Protocol Stop: 01/07/21 21:42 Guaifenesin (Guaifenesin 600 Mg Tabcr) 1,200 mg PO Q12 [facility] Stop: 01/12/21 20:59 Last Admin: 12/18/20 09:17 Dose: 1,200 mg Documented by: Heparin Sodium (Beef Lung) (Heparin 10 Unit/Ml 5 Ml Flush) 5 ml FLUSH PRN PRN PRN Reason: Flush Stop: 01/08/21 15:47 Last Admin: 12/17/20 21:15 Dose: 5 ml Documented by: Hydromorphone HCl (Hydromorphone Inj 0.5 Mg/0.5 Ml Syr) 0.5 mg IV Q8H PRN PRN Reason: Pain Stop: 12/30/20 08:37 Last Admin: 12/17/20 01:06 Dose: 0.5 mg Documented by: Furosemide 40 mg/ Syringe 4 mls @ 4 mls/min IV DAILY [facility] Stop: 01/11/21 08:59 Last Admin: 12/18/20 09:17 Dose: 4 mls/min Documented by: Pantoprazole Sodium 40 mg/ (Syringe) 10 mls @ 5 mls/min IV BID [facility] Stop: 01/15/21 00:59 Last Admin: 12/18/20 09:17 Dose: 5 mls/min Documented by: Insulin Aspart (Insulin Aspart 100 Units/Ml 3 Ml Pen) 0 units SC ACHS [facility] Stop: 01/07/21 21:59 Last Admin: 12/18/20 12:24 Dose: Not Given Documented by: Insulin Glargine (Insulin Glargine Solostar 100 Units/Ml 3 Ml Pen) 25 units SC BID [facility] Stop: 01/07/21 21:59 Last Admin: 12/18/20 09:17 Dose: 25 units Documented by: Lisinopril (Lisinopril 5 Mg Tab) 5 mg PO QAM [facility] Stop: 01/13/21 11:44 Last Admin: 12/18/20 09:17 Dose: 5 mg Documented by: Magnesium Hydroxide (Magnesium Hydroxide Susp 30 Ml Udc) 30 ml PO DAILY PRN PRN Reason: Constipation Stop: 01/07/21 21:42 Miscellaneous (Carbohydrates For Hypoglycemia ) 15 - 30 gm PO UD PRN PRN Reason: Hypoglycemia Protocol Stop: 01/07/21 21:42 Last Admin: 12/18/20 12:23 Dose: 15 gm Documented by: Montelukast Sodium (Montelukast Sodium 10 Mg Tablet) 10 mg PO HS [facility] Stop: 01/07/21 21:42 Last Admin: 12/17/20 21:09 Dose: 10 mg Documented by: Ondansetron HCl (Ondansetron Inj 2 Mg/Ml 2 Ml Vial) 4 mg IV Q6H PRN PRN Reason: Nausea Stop: 01/07/21 21:42 Pantoprazole Sodium (Pantoprazole 40 Mg Tab) 40 mg PO DAILY [facility] Stop: 01/08/21 08:59 Last Admin: 12/15/20 08:23 Dose: 40 mg Documented by: Polyethylene Glycol (Polyethylene (Miralax) 17 Gm Pack) 17 gm PO DAILY PRN PRN Reason: Constipation Stop: 01/07/21 21:42 Potassium Chloride (Potassium Chloride Crtab 20 Meq Tabcr) 20 meq PO DAILY [facility] Stop: 01/08/21 08:59 Last Admin: 12/18/20 09:24 Dose: 20 meq Documented by: Tamsulosin HCl (Tamsulosin Hcl 0.4 Mg Cap) 0.8 mg PO DAILY [facility] Stop: 01/08/21 08:59 Last Admin: 12/18/20 09:17 Dose: 0.8 mg Documented by: Tramadol HCl (Tramadol Hcl 50 Mg Tablet) 50 mg PO Q4H PRN PRN Reason: Pain Stop: 01/09/21 14:08 Last Admin: 12/17/20 04:26 Dose: 50 mg Documented by: Umeclidinium/Vilanterol (Umeclidinium/Vilanterol 62.5/25mcg 7 Puffs/Inhaler) 1 puffs INH DAILY [facility] Stop: 01/08/21 08:59 Last Admin: 12/18/20 09:17 Dose: 1 puffs Documented by: Vitamin D (Cholecalciferol 1,000 Units 25 Mcg Tab) 2,000 units PO DAILY [facility] Stop: 01/08/21 08:59 Last Admin: 12/18/20 09:17 Dose: 2,000 units Documented by: (1) Bilateral pneumonia Lung location: lower lobe of lung Pneumonia type: due to unspecified organism Qualified Code(s): J18.9 - Pneumonia, unspecified organism (2) CHF (congestive heart failure) Heart failure chronicity: acute on chronic Heart failure type: unspecified Qualified Code(s): I50.9 - Heart failure, unspecified
[2020-12-18] MEDS: GLUCOSE 40% GEL 15 GM TUBE PO PRN ×2 (12:40→13:09)
[2020-12-18] MEDS: ATORVASTATIN 40 MG TAB PO SCH (20:04)
[2020-12-18] MEDS: GABAPENTIN 300 MG CAP PO SCH (20:06)
[2020-12-18] MEDS: MONTELUKAST SODIUM 10 MG TABLET PO SCH (20:06)
[2020-12-19 06:21] LABS: Basophils # (auto) 0.04 K/uL (0-0.2); Basophils % (auto) 0.5 %; Eosinophils # (auto) 0.15 K/uL (0-0.5); Eosinophils % (auto) 1.9 %; Hematocrit (blood only) 25.8 % (42-52); Hemoglobin 8.2 g/dL (14.0-18.0); Immature Granulocytes # (auto) 0.07 K/uL (0.00-0.02); Immature Granulocytes % (auto) 0.9 %; Lymphocytes # (auto) 1.63 K/uL (1.2-3.4); Lymphocytes % (auto) 20.8 %; Mean Corpuscular Hemoglobin 28.6 pg (25-34); Mean Corpuscular Hgb Conc 31.8 g/dL (32-36); Mean Corpuscular Volume 89.9 fL (80-100); Mean Platelet Volume 8.9 fL (7.4-10.4); Monocytes # (auto) 0.67 K/uL (0.11-0.59); Monocytes % (auto) 8.6 %; Neutrophils # (auto) 5.27 K/uL (1.4-6.5); Neutrophils % (auto) 67.3 %; Platelet Count 309 K/uL (130-400); RDW Coefficient of Variation 15.5 % (11.5-14.5); RDW Standard Deviation 51.1 fL (36.4-46.3); Red Blood Count 2.87 M/uL (4.7-6.1); White Blood Count 7.83 K/uL (4.8-10.8)
[2020-12-19 07:03] LABS: BUN Creatinine Ratio 18.9 (10-20); Calcium 9.4 mg/dl (8.5-10.1); Creatinine Clr Calc Pharmacy 101.9 ml/min; Est GFR (African American) 78.9 ml/min; Est GFR (Non-African American) 68.1 ml/min; Magnesium 1.8 mg/dl (1.8-2.4); Phosphorus 4.6 mg/dl (2.5-4.9); Potassium 3.8 mmol/L (3.5-5.1)
[2020-12-19] MEDS: INSULIN GLARGINE SOLOSTAR 100 UNITS/ML 3 ML PEN SC SCH ×2 (08:55→20:22)
[2020-12-19] MEDS: CHOLECALCIFEROL 1,000 UNITS 25 MCG TAB PO SCH (08:55)
[2020-12-19] MEDS: lisinopril 5 MG TAB PO SCH (08:55)
[2020-12-19] MEDS: TAMSULOSIN HCL 0.4 MG CAP PO SCH (08:55)
[2020-12-19] MEDS: DULoxetine HCL 60 MG CAP PO SCH (08:55)
[2020-12-19] MEDS: FUROSEMIDE 40 MG in SYRINGE 0 ML IV SCH (08:55)
[2020-12-19] MEDS: UMECLIDINIUM/VILANTEROL 62.5/25MCG 7 PUFFS/INHALER INH SCH (08:55)
[2020-12-19] MEDS: carvediloL 25 MG TAB PO SCH ×2 (08:55→17:41)
[2020-12-19] MEDS: amLODIPine BESYLATE 5 MG TAB PO SCH (08:55)
[2020-12-19] MEDS: PANTOprazole 40 MG in SYRINGE 0 ML IV SCH ×2 (08:55→20:14)
[2020-12-19] MEDS: guaiFENesin 600 MG TABCR PO SCH ×2 (08:55→20:13)
[2020-12-19] MEDS: INSULIN ASPART 100 UNITS/ML 3 ML PEN SC SCH ×4 (08:56→20:21)
[2020-12-19] MEDS: POTASSIUM CHLORIDE CRTAB 20 MEQ TABCR PO SCH (09:00)
--- NOTE | 2020-12-19 13:57 | Hospitalist Progress Note ---
Date of Service December 19, 2020 Assessment & Plan (1) Respiratory failure: Acute on chronic respiratory failure in setting of COVID-19 virus infection with recent post Covid pneumonitis. Now with worsening shortness of breath and worsening infiltrates. Has been on diuretics since admission and appears improved since then No indication for steroids or antibiotics at this time. Appreciate pulmonary input and recommendation Remains stable and seems to be improving a little bit Still requiring 3 L of oxygen via nasal cannula to maintain saturation Mucinex has been added to suppress cough Remains stable and has been on his baseline requirements of oxygen to maintain saturation Denies any increasing shortness of breath and maintaining normal saturation with 2 L of nasal cannula oxygen Denies any more shortness of breath but he still has minimal cough Hypertension Blood pressures remains on the upper side We will add lisinopril at a smaller dose Blood pressure remains in the upper side but seems to be stable Blood pressure is controlled with addition of lisinopril BP is well controlled Bright red rectal bleed Appreciate GI input and recommendation Hemoglobin dropped to 7.9 from 8.4 and back to 8.6 on repeat test Will discontinue any NSAID's, Lovenox is on hold We will monitor H&H Hemoglobin remains more than 9 8.2 as of 12/19/2020 (2) Bilateral pneumonia: Resolving, he has already received full course of antibiotics and steroids with no further indication for that now. Initial worsening dyspnea may have been related to atypical pulmonary edema in setting of covid pneumonitis which is improved after diuretics. Repeat chest x-ray did not show any improvement of the infiltration We will continue minimal doses of diuretics and supportive care Doubt any superinfection at this time Viral pneumonia and doubt any bacterial superinfection (3) COVID-19 virus infection: Received 1 dose of Tocilizumab upon initial diagnosis in mid October followed by a course of remdesivir and dexamethasone. Cont supportive care measures. We will continue PT and OT evaluation before sending back to [facility] He will be transferred to [facility] this afternoon (4) Flexor tenosynovitis of finger: Ibuprofen PRN, if pain becomes significant may consider contacting ortho for a splint/injection therapy. (5) CHF (congestive heart failure): compensated, cont daily IV Lasix, hold Bumex. Continue to monitor daily weights, strict I's and O's and low-salt diet Clinically no signs of fluid overload Has been on intravenous Lasix Will change oral furosemide at discharge No signs and/or symptoms of fluid overload We will continue current intravenous Lasix (6) Anemia: Multifactorial in setting of multiple comorbidities and multiple recent hospitalizations. Noted to have bleeding per rectum last night Hemoglobin remained stable and GI evaluation is done Trend CBC and transfuse if needed-hemoglobin more than 9. (7) Diabetes mellitus, type II: Currently holding outpatient regimen of insulin and utilizing weight-based multi daily dose insulin schedule in the hospital. Most recent A1c is 7.1 on 11/30/2020 Blood sugar remains stable (8) Depression: Patient noted to be on Cymbalta and sertraline. Kept Cymbalta in place and drop sertraline to avoid any serotonin syndrome. Will need to discuss this and optimize him prior to discharge. No acute issues (9) Hypomagnesemia: improved. (10) DVT prophylaxis: Lovenox Full code Disposition-back to [facility] for additional inpatient rehab once medically stable. We will get PT and OT evaluation Transfer to [facility] after approval Admission and Anticipated Discharge Date Admission Date: December 08, 2020 Subjective 12/13/2020 The patient was seen and examined in telemetry unit He has been complaining of generalized weakness and ongoing cough Denies any increasing shortness of breath, fever and/or chills, any nausea and/or vomiting 12/14/2020 The patient was seen and examined in telemetry unit He still has the cough but feeling otherwise okay Has significant weakness and tiredness Has been saturating well with 2 L of nasal cannula oxygen 12/15/2020 The patient was seen and examined in medical telemetry unit He has been drowsy and weak but denies any other symptoms He has been saturating well with 2 L of nasal cannula oxygen His blood pressure seems to be reasonably controlled though remains on the higher side 12/16/2020 Patient was seen and examined in medical telemetry unit Has had joanne colored stool last night and none since this morning Denies any abdominal pain, nausea and/or vomiting Complains to have some pain in the right foot 12/17/2020 The patient was seen and examined in medical telemetry unit He has been much better today and sitting at the edge of the bed Minimal shortness of breath with cough No more bleeding per rectum 12/18/2020 The patient was seen and examined in medical telemetry unit He has been stable and feels a lot better Denies any shortness of breath at rest but has minimal cough Denies any other symptoms 12/19/2020 The patient was seen and examined in medical telemetry unit He remains generally weak but denies any other symptoms His blood sugar was noted to be low this morning and insulin doses will be decreased His diet was advanced to regular diabetic Review of Systems Review of Systems: All systems reviewed and are unremarkable except as noted below Respiratory: + cough and + dyspnea on exertion Musculoskeletal: + muscle weakness Right foot pain Physical Exam Physical Exam: Sitting at the edge of the bed without any acute distress Constitutional: well developed, well nourished and + obese; no acute distress Eyes: PERRL, conjunctivae normal, anicteric sclerae ENMT: external ear and nose normal, oropharynx normal Neck: trachea midline, no thyromegaly Respiratory: no respiratory distress Auscultation: + diminished lung sounds and + crackles (Much improved bibasilar crackles); no wheezes Cardiovascular: Rate/Rhythm: regular rate and regular rhythm Heart Sounds: no murmur Extremities: + edema Gastrointestinal (Abdomen): Inspection/Auscultation: normal bowel sounds; abdomen not distended Percussion/Palpation: abdomen soft; abdomen nontender Musculoskeletal: Ankle: + deformity (Minimal swelling of the right ankle without any acute arthritis) Neurologic: Alert, awake and oriented x3. Generally weak and lethargic Psychiatric: A+Ox3, euthymic affect Lymphatic: no cervical or axillary lymphadenopathy Results & Data Results & Data ([facility]) Vital Signs (Past 12 Hours) Vital Signs Temp Pulse Pulse Resp BP Pulse Ox 12/19/20 11:22 36.4 C L 70 18 128/74 95 12/19/20 07:33 36.5 C 66 16 130/70 99 12/19/20 07:15 73 12/19/20 03:25 36.4 C L 75 17 115/65 95 Laboratory Results Short CBC 12/19/20 Range/Units 05:55 WBC 7.83 (4.8-10.8) K/uL Hgb 8.2 L (14.0-18.0) g/dL Hct 25.8 L (42-52) % Plt Count 309 (130-400) K/uL BMP 12/19/20 05:55 Sodium 136 Potassium 3.8 D Chloride 103 Carbon Dioxide 28 BUN 22 H Creatinine 1.14 Glucose 59 L Calcium 9.4 Medications Administered Current Inpatient Medications Acetaminophen (Acetaminophen 325 Mg Tab) 650 mg PO Q4H PRN PRN Reason: Pain or Fever Stop: 01/07/21 21:42 Last Admin: 12/16/20 07:25 Dose: 650 mg Documented by: Amlodipine Besylate (Amlodipine Besylate 5 Mg Tab) 10 mg PO DAILY [facility] Stop: 01/08/21 08:59 Last Admin: 12/19/20 08:55 Dose: 10 mg Documented by: Atorvastatin Calcium (Atorvastatin 40 Mg Tab) 40 mg PO HS [facility] Stop: 01/07/21 21:42 Last Admin: 12/18/20 20:04 Dose: 40 mg Documented by: Carvedilol (Carvedilol 25 Mg Tab) 25 mg PO BIDM [facility] Stop: 01/09/21 16:59 Last Admin: 12/19/20 08:55 Dose: 25 mg Documented by: Dextrose (Dextrose 50% 50 Ml Syringe) 25 - 50 ml IV UD PRN; Protocol PRN Reason: Hypoglycemia Protocol Stop: 01/07/21 21:42 Docusate Sodium (Docusate Sodium 100 Mg Cap) 100 mg PO BID PRN PRN Reason: Constipation Stop: 01/07/21 21:42 Duloxetine HCl (Duloxetine Hcl 60 Mg Cap) 60 mg PO DAILY [facility] Stop: 01/08/21 08:59 Last Admin: 12/19/20 08:55 Dose: 60 mg Documented by: Enoxaparin Sodium (Enoxaparin Inj 40 Mg/0.4 Ml Syr) 40 mg SQ Q12H [facility] Stop: 01/07/21 21:59 Last Admin: 12/15/20 20:27 Dose: 40 mg Documented by: Gabapentin (Gabapentin 300 Mg Cap) 300 mg PO HS [facility] Stop: 01/07/21 21:42 Last Admin: 12/18/20 20:06 Dose: 300 mg Documented by: Glucagon (Glucagon For Inj 1 Mg Vial) 1 mg SQ UD PRN; Protocol PRN Reason: Hypoglycemia Protocol Stop: 01/07/21 21:42 Glucose (Glucose 10 Tabs/Tube) 4 - 8 tabs PO UD PRN; Protocol PRN Reason: Hypoglycemia Protocol Stop: 01/07/21 21:42 Glucose (Glucose 40% Gel 15 Gm Tube) 15 - 30 gm PO UD PRN; Protocol PRN Reason: Hypoglycemia Protocol Stop: 01/07/21 21:42 Last Admin: 12/18/20 13:09 Dose: 15 gm Documented by: Guaifenesin (Guaifenesin 600 Mg Tabcr) 1,200 mg PO Q12 [facility] Stop: 01/12/21 20:59 Last Admin: 12/19/20 08:55 Dose: 1,200 mg Documented by: Heparin Sodium (Beef Lung) (Heparin 10 Unit/Ml 5 Ml Flush) 5 ml FLUSH PRN PRN PRN Reason: Flush Stop: 01/08/21 15:47 Last Admin: 12/18/20 20:07 Dose: 5 ml Documented by: Hydromorphone HCl (Hydromorphone Inj 0.5 Mg/0.5 Ml Syr) 0.5 mg IV Q8H PRN PRN Reason: Pain Stop: 12/30/20 08:37 Last Admin: 12/17/20 01:06 Dose: 0.5 mg Documented by: Furosemide 40 mg/ Syringe 4 mls @ 4 mls/min IV DAILY [facility] Stop: 01/11/21 08:59 Last Admin: 12/19/20 08:55 Dose: 4 mls/min Documented by: Pantoprazole Sodium 40 mg/ (Syringe) 10 mls @ 5 mls/min IV BID [facility] Stop: 01/15/21 00:59 Last Admin: 12/19/20 08:55 Dose: 5 mls/min Documented by: Insulin Aspart (Insulin Aspart 100 Units/Ml 3 Ml Pen) 0 units SC ACHS [facility] Stop: 01/07/21 21:59 Last Admin: 12/19/20 12:23 Dose: 1 units Documented by: Insulin Glargine (Insulin Glargine Solostar 100 Units/Ml 3 Ml Pen) 20 units SC BID [facility] Stop: 01/18/21 20:59 Lisinopril (Lisinopril 5 Mg Tab) 5 mg PO QAM [facility] Stop: 01/13/21 11:44 Last Admin: 12/19/20 08:55 Dose: 5 mg Documented by: Magnesium Hydroxide (Magnesium Hydroxide Susp 30 Ml Udc) 30 ml PO DAILY PRN PRN Reason: Constipation Stop: 01/07/21 21:42 Miscellaneous (Carbohydrates For Hypoglycemia ) 15 - 30 gm PO UD PRN PRN Reason: Hypoglycemia Protocol Stop: 01/07/21 21:42 Last Admin: 12/18/20 12:23 Dose: 15 gm Documented by: Montelukast Sodium (Montelukast Sodium 10 Mg Tablet) 10 mg PO HS [facility] Stop: 01/07/21 21:42 Last Admin: 12/18/20 20:06 Dose: 10 mg Documented by: Ondansetron HCl (Ondansetron Inj 2 Mg/Ml 2 Ml Vial) 4 mg IV Q6H PRN PRN Reason: Nausea Stop: 01/07/21 21:42 Pantoprazole Sodium (Pantoprazole 40 Mg Tab) 40 mg PO DAILY [facility] Stop: 01/08/21 08:59 Last Admin: 12/15/20 08:23 Dose: 40 mg Documented by: Polyethylene Glycol (Polyethylene (Miralax) 17 Gm Pack) 17 gm PO DAILY PRN PRN Reason: Constipation Stop: 01/07/21 21:42 Potassium Chloride (Potassium Chloride Crtab 20 Meq Tabcr) 20 meq PO DAILY [facility] Stop: 01/08/21 08:59 Last Admin: 12/19/20 09:00 Dose: 20 meq Documented by: Tamsulosin HCl (Tamsulosin Hcl 0.4 Mg Cap) 0.8 mg PO DAILY [facility] Stop: 01/08/21 08:59 Last Admin: 12/19/20 08:55 Dose: 0.8 mg Documented by: Tramadol HCl (Tramadol Hcl 50 Mg Tablet) 50 mg PO Q4H PRN PRN Reason: Pain Stop: 01/09/21 14:08 Last Admin: 12/17/20 04:26 Dose: 50 mg Documented by: Umeclidinium/Vilanterol (Umeclidinium/Vilanterol 62.5/25mcg 7 Puffs/Inhaler) 1 puffs INH DAILY [facility] Stop: 01/08/21 08:59 Last Admin: 12/19/20 08:55 Dose: 1 puffs Documented by: Vitamin D (Cholecalciferol 1,000 Units 25 Mcg Tab) 2,000 units PO DAILY [facility] Stop: 01/08/21 08:59 Last Admin: 12/19/20 08:55 Dose: 2,000 units Documented by: (1) Bilateral pneumonia Lung location: lower lobe of lung Pneumonia type: due to unspecified organism Qualified Code(s): J18.9 - Pneumonia, unspecified organism (2) CHF (congestive heart failure) Heart failure chronicity: acute on chronic Heart failure type: unspecified Qualified Code(s): I50.9 - Heart failure, unspecified
[2020-12-19] MEDS ORDERED: MICONAZOLE NITRATE POWDER 43 GM EXT PRN (15:40)
[2020-12-19] MEDS: GABAPENTIN 300 MG CAP PO SCH (20:13)
[2020-12-19] MEDS: MONTELUKAST SODIUM 10 MG TABLET PO SCH (20:13)
[2020-12-19] MEDS: ATORVASTATIN 40 MG TAB PO SCH (20:14)
[2020-12-20] MEDS: INSULIN ASPART 100 UNITS/ML 3 ML PEN SC SCH ×4 (09:55→21:53)
[2020-12-20] MEDS: INSULIN GLARGINE SOLOSTAR 100 UNITS/ML 3 ML PEN SC SCH ×2 (09:56→21:53)
[2020-12-20] MEDS: TAMSULOSIN HCL 0.4 MG CAP PO SCH (09:59)
[2020-12-20] MEDS: lisinopril 5 MG TAB PO SCH (10:00)
[2020-12-20] MEDS: DULoxetine HCL 60 MG CAP PO SCH (10:00)
[2020-12-20] MEDS: FUROSEMIDE 40 MG in SYRINGE 0 ML IV SCH (10:00)
[2020-12-20] MEDS: amLODIPine BESYLATE 5 MG TAB PO SCH (10:00)
[2020-12-20] MEDS: PANTOprazole 40 MG in SYRINGE 0 ML IV SCH ×2 (10:00→22:01)
[2020-12-20] MEDS: carvediloL 25 MG TAB PO SCH (10:00)
[2020-12-20] MEDS: guaiFENesin 600 MG TABCR PO SCH ×2 (10:00→21:54)
[2020-12-20] MEDS: UMECLIDINIUM/VILANTEROL 62.5/25MCG 7 PUFFS/INHALER INH SCH (10:01)
[2020-12-20] MEDS: CHOLECALCIFEROL 1,000 UNITS 25 MCG TAB PO SCH (10:01)
[2020-12-20] MEDS: POTASSIUM CHLORIDE CRTAB 20 MEQ TABCR PO SCH (10:06)
[2020-12-20] MEDS: traMADol HCL 50 MG TABLET PO PRN (10:06)
[2020-12-20 15:47] LABS: Calcium 9.5 mg/dl (8.5-10.1); Creatinine Clr Calc Pharmacy 87.2 ml/min; Est GFR (African American) 64.9 ml/min; Magnesium 1.8 mg/dl (1.8-2.4); Phosphorus 3.8 mg/dl (2.5-4.9); Potassium 4.5 mmol/L (3.5-5.1)
--- NOTE | 2020-12-20 16:36 | Hospitalist Progress Note ---
Date of Service December 20, 2020 Assessment & Plan (1) Respiratory failure: Acute on chronic respiratory failure in setting of COVID-19 virus infection with recent post Covid pneumonitis. Now with worsening shortness of breath and worsening infiltrates. Has been on diuretics since admission and appears improved since then No indication for steroids or antibiotics at this time. Appreciate pulmonary input and recommendation Remains stable and seems to be improving a little bit Still requiring 3 L of oxygen via nasal cannula to maintain saturation Mucinex has been added to suppress cough Remains stable and has been on his baseline requirements of oxygen to maintain saturation Denies any increasing shortness of breath and maintaining normal saturation with 2 L of nasal cannula oxygen Denies any more shortness of breath but he still has minimal cough Respiratory status is stable and has been requiring 2 L of oxygen via nasal cannula to maintain saturation Bradyarrhythmia Heart rate went down to 30s without any symptoms Noted to have Mobitz type I block in monitor I held Coreg Electrolytes were unremarkable We will increase lisinopril for blood pressure control Hypertension Blood pressures remains on the upper side We will add lisinopril at a smaller dose Blood pressure remains in the upper side but seems to be stable Blood pressure is controlled with addition of lisinopril Coreg has been on hold due to bradycardia Will increase lisinopril for control of blood pressure Bright red rectal bleed Appreciate GI input and recommendation Hemoglobin dropped to 7.9 from 8.4 and back to 8.6 on repeat test Will discontinue any NSAID's, Lovenox is on hold We will monitor H&H Hemoglobin remains more than 9 8.2 as of 12/19/2020 (2) Bilateral pneumonia: Resolving, he has already received full course of antibiotics and steroids with no further indication for that now. Initial worsening dyspnea may have been related to atypical pulmonary edema in setting of covid pneumonitis which is improved after diuretics. Repeat chest x-ray did not show any improvement of the infiltration We will continue minimal doses of diuretics and supportive care Doubt any superinfection at this time Viral pneumonia and doubt any bacterial superinfection (3) COVID-19 virus infection: Received 1 dose of Tocilizumab upon initial diagnosis in mid October followed by a course of remdesivir and dexamethasone. Cont supportive care measures. We will continue PT and OT evaluation before sending back to [facility] He has been accepted to [facility] and will be going to [facility] tomorrow if remains stable (4) Flexor tenosynovitis of finger: Ibuprofen PRN, if pain becomes significant may consider contacting ortho for a splint/injection therapy. (5) CHF (congestive heart failure): compensated, cont daily IV Lasix, hold Bumex. Continue to monitor daily weights, strict I's and O's and low-salt diet Clinically no signs of fluid overload Has been on intravenous Lasix Will change oral furosemide at discharge No signs and/or symptoms of fluid overload We will continue current intravenous Lasix We will change Lasix to oral (6) Anemia: Multifactorial in setting of multiple comorbidities and multiple recent hospitalizations. Noted to have bleeding per rectum last night Hemoglobin remained stable and GI evaluation is done Trend CBC and transfuse if needed-hemoglobin more than 9. (7) Diabetes mellitus, type II: Currently holding outpatient regimen of insulin and utilizing weight-based multi daily dose insulin schedule in the hospital. Most recent A1c is 7.1 on 11/30/2020 Blood sugar remains stable (8) Depression: Patient noted to be on Cymbalta and sertraline. Kept Cymbalta in place and drop sertraline to avoid any serotonin syndrome. Will need to discuss this and optimize him prior to discharge. No acute issues (9) Hypomagnesemia: improved. (10) DVT prophylaxis: Lovenox Full code Disposition-back to [facility] for additional inpatient rehab once medically stable. We will get PT and OT evaluation Likely be transferred to [facility] tomorrow if remains stable Admission and Anticipated Discharge Date Admission Date: December 08, 2020 Subjective 12/13/2020 The patient was seen and examined in telemetry unit He has been complaining of generalized weakness and ongoing cough Denies any increasing shortness of breath, fever and/or chills, any nausea and/or vomiting 12/14/2020 The patient was seen and examined in telemetry unit He still has the cough but feeling otherwise okay Has significant weakness and tiredness Has been saturating well with 2 L of nasal cannula oxygen 12/15/2020 The patient was seen and examined in medical telemetry unit He has been drowsy and weak but denies any other symptoms He has been saturating well with 2 L of nasal cannula oxygen His blood pressure seems to be reasonably controlled though remains on the higher side 12/16/2020 Patient was seen and examined in medical telemetry unit Has had joanne colored stool last night and none since this morning Denies any abdominal pain, nausea and/or vomiting Complains to have some pain in the right foot 12/17/2020 The patient was seen and examined in medical telemetry unit He has been much better today and sitting at the edge of the bed Minimal shortness of breath with cough No more bleeding per rectum 12/18/2020 The patient was seen and examined in medical telemetry unit He has been stable and feels a lot better Denies any shortness of breath at rest but has minimal cough Denies any other symptoms 12/19/2020 The patient was seen and examined in medical telemetry unit He remains generally weak but denies any other symptoms His blood sugar was noted to be low this morning and insulin doses will be decreased His diet was advanced to regular diabetic 12/20/2020 The patient was seen and examined in telemetry unit He has been feeling much better and remained medically stable stable to be transferred Unfortunately he was noted to have Mobitz type I heart block this morning without any symptoms He is accepted to [facility] and will be going [facility] tomorrow Review of Systems Review of Systems: All systems reviewed and are unremarkable except as noted below Respiratory: + cough and + dyspnea on exertion Musculoskeletal: + muscle weakness Right foot pain Physical Exam Physical Exam: Sitting at the edge of the bed without any acute distress Constitutional: well developed, well nourished and + obese; no acute distress Eyes: PERRL, conjunctivae normal, anicteric sclerae ENMT: external ear and nose normal, oropharynx normal Neck: trachea midline, no thyromegaly Respiratory: no respiratory distress Auscultation: + diminished lung sounds and + crackles (Much improved bibasilar crackles); no wheezes Cardiovascular: Rate/Rhythm: regular rate and regular rhythm Heart Sounds: no murmur Extremities: + edema Gastrointestinal (Abdomen): Inspection/Auscultation: normal bowel sounds; abdomen not distended Percussion/Palpation: abdomen soft; abdomen nontender Musculoskeletal: Ankle: + deformity (Minimal swelling of the right ankle without any acute arthritis) Neurologic: Alert, awake and oriented x3. Generally weak but no focal sensory and motor deficit appreciated Psychiatric: A+Ox3, euthymic affect Lymphatic: no cervical or axillary lymphadenopathy Results & Data Results & Data ([facility]) Vital Signs (Past 12 Hours) Vital Signs Temp Pulse Pulse Resp BP Pulse Ox 12/20/20 15:25 36.4 C L 62 18 144/71 H 97 12/20/20 14:18 36.4 C L 66 16 161/67 H 94 12/20/20 11:52 36.6 C 71 18 125/71 93 12/20/20 09:59 75 129/77 12/20/20 07:37 36.6 C 63 16 145/75 H 95 12/20/20 07:00 76 Laboratory Results [facility] 12/20/20 14:50 Sodium 139 Potassium 4.5 D Chloride 107 Carbon Dioxide 29 BUN 21 H Creatinine 1.34 Glucose 134 H Calcium 9.5 Medications Administered Current Inpatient Medications Acetaminophen (Acetaminophen 325 Mg Tab) 650 mg PO Q4H PRN PRN Reason: Pain or Fever Stop: 01/07/21 21:42 Last Admin: 12/16/20 07:25 Dose: 650 mg Documented by: Amlodipine Besylate (Amlodipine Besylate 5 Mg Tab) 10 mg PO DAILY ZOHAIB Stop: 01/08/21 08:59 Last Admin: 12/20/20 10:00 Dose: 10 mg Documented by: Atorvastatin Calcium (Atorvastatin 40 Mg Tab) 40 mg PO HS ZOHAIB Stop: 01/07/21 21:42 Last Admin: 12/19/20 20:14 Dose: 40 mg Documented by: Carvedilol (Carvedilol 25 Mg Tab) 25 mg PO BIDM [facility] Stop: 01/09/21 16:59 Last Admin: 12/20/20 10:00 Dose: 25 mg Documented by: Dextrose (Dextrose 50% 50 Ml Syringe) 25 - 50 ml IV UD PRN; Protocol PRN Reason: Hypoglycemia Protocol Stop: 01/07/21 21:42 Docusate Sodium (Docusate Sodium 100 Mg Cap) 100 mg PO BID PRN PRN Reason: Constipation Stop: 01/07/21 21:42 Duloxetine HCl (Duloxetine Hcl 60 Mg Cap) 60 mg PO DAILY ZOHAIB Stop: 01/08/21 08:59 Last Admin: 12/20/20 10:00 Dose: 60 mg Documented by: Enoxaparin Sodium (Enoxaparin Inj 40 Mg/0.4 Ml Syr) 40 mg SQ Q12H ZOHAIB Stop: 01/07/21 21:59 Last Admin: 12/15/20 20:27 Dose: 40 mg Documented by: Gabapentin (Gabapentin 300 Mg Cap) 300 mg PO HS ZOHAIB Stop: 01/07/21 21:42 Last Admin: 12/19/20 20:13 Dose: 300 mg Documented by: Glucagon (Glucagon For Inj 1 Mg Vial) 1 mg SQ UD PRN; Protocol PRN Reason: Hypoglycemia Protocol Stop: 01/07/21 21:42 Glucose (Glucose 10 Tabs/Tube) 4 - 8 tabs PO UD PRN; Protocol PRN Reason: Hypoglycemia Protocol Stop: 01/07/21 21:42 Glucose (Glucose 40% Gel 15 Gm Tube) 15 - 30 gm PO UD PRN; Protocol PRN Reason: Hypoglycemia Protocol Stop: 01/07/21 21:42 Last Admin: 12/18/20 13:09 Dose: 15 gm Documented by: Guaifenesin (Guaifenesin 600 Mg Tabcr) 1,200 mg PO Q12 ZOHAIB Stop: 01/12/21 20:59 Last Admin: 12/20/20 10:00 Dose: 1,200 mg Documented by: Heparin Sodium (Beef Lung) (Heparin 10 Unit/Ml 5 Ml Flush) 5 ml FLUSH PRN PRN PRN Reason: Flush Stop: 01/08/21 15:47 Last Admin: 12/18/20 20:07 Dose: 5 ml Documented by: Hydromorphone HCl (Hydromorphone Inj 0.5 Mg/0.5 Ml Syr) 0.5 mg IV Q8H PRN PRN Reason: Pain Stop: 12/30/20 08:37 Last Admin: 12/17/20 01:06 Dose: 0.5 mg Documented by: Furosemide 40 mg/ Syringe 4 mls @ 4 mls/min IV DAILY ZOHAIB Stop: 01/11/21 08:59 Last Admin: 12/20/20 10:00 Dose: 4 mls/min Documented by: Pantoprazole Sodium 40 mg/ (Syringe) 10 mls @ 5 mls/min IV BID ZOHAIB Stop: 01/15/21 00:59 Last Admin: 12/20/20 10:00 Dose: 5 mls/min Documented by: Insulin Aspart (Insulin Aspart 100 Units/Ml 3 Ml Pen) 0 units SC ACHS ZOHAIB Stop: 01/07/21 21:59 Last Admin: 12/20/20 12:27 Dose: 9 units Documented by: Insulin Glargine (Insulin Glargine Solostar 100 Units/Ml 3 Ml Pen) 20 units SC BID ZOHAIB Stop: 01/18/21 20:59 Last Admin: 12/20/20 09:56 Dose: 20 units Documented by: Lisinopril (Lisinopril 5 Mg Tab) 5 mg PO QAM ZOHAIB Stop: 01/13/21 11:44 Last Admin: 12/20/20 10:00 Dose: 5 mg Documented by: Magnesium Hydroxide (Magnesium Hydroxide Susp 30 Ml Udc) 30 ml PO DAILY PRN PRN Reason: Constipation Stop: 01/07/21 21:42 Miconazole Nitrate (Miconazole Nitrate Powder 43 Gm) 1 appln EXT PRN PRN PRN Reason: Affected Skin Folds Stop: 01/18/21 15:39 Miscellaneous (Carbohydrates For Hypoglycemia ) 15 - 30 gm PO UD PRN PRN Reason: Hypoglycemia Protocol Stop: 01/07/21 21:42 Last Admin: 12/18/20 12:23 Dose: 15 gm Documented by: Montelukast Sodium (Montelukast Sodium 10 Mg Tablet) 10 mg PO HS [facility] Stop: 01/07/21 21:42 Last Admin: 12/19/20 20:13 Dose: 10 mg Documented by: Ondansetron HCl (Ondansetron Inj 2 Mg/Ml 2 Ml Vial) 4 mg IV Q6H PRN PRN Reason: Nausea Stop: 01/07/21 21:42 Pantoprazole Sodium (Pantoprazole 40 Mg Tab) 40 mg PO DAILY ZOHAIB Stop: 01/08/21 08:59 Last Admin: 12/15/20 08:23 Dose: 40 mg Documented by: Polyethylene Glycol (Polyethylene (Miralax) 17 Gm Pack) 17 gm PO DAILY PRN PRN Reason: Constipation Stop: 01/07/21 21:42 Potassium Chloride (Potassium Chloride Crtab 20 Meq Tabcr) 20 meq PO DAILY ZOHAIB Stop: 01/08/21 08:59 Last Admin: 12/20/20 10:06 Dose: 20 meq Documented by: Tamsulosin HCl (Tamsulosin Hcl 0.4 Mg Cap) 0.8 mg PO DAILY ZOHAIB Stop: 01/08/21 08:59 Last Admin: 12/20/20 09:59 Dose: 0.8 mg Documented by: Tramadol HCl (Tramadol Hcl 50 Mg Tablet) 50 mg PO Q4H PRN PRN Reason: Pain Stop: 01/09/21 14:08 Last Admin: 12/20/20 10:06 Dose: 50 mg Documented by: Umeclidinium/Vilanterol (Umeclidinium/Vilanterol 62.5/25mcg 7 Puffs/Inhaler) 1 puffs INH DAILY ZOHAIB Stop: 01/08/21 08:59 Last Admin: 12/20/20 10:01 Dose: 1 puffs Documented by: Vitamin D (Cholecalciferol 1,000 Units 25 Mcg Tab) 2,000 units PO DAILY ZOHAIB Stop: 01/08/21 08:59 Last Admin: 12/20/20 10:01 Dose: 2,000 units Documented by: (1) Bilateral pneumonia Lung location: lower lobe of lung Pneumonia type: due to unspecified organism Qualified Code(s): J18.9 - Pneumonia, unspecified organism (2) CHF (congestive heart failure) Heart failure chronicity: acute on chronic Heart failure type: unspecified Qualified Code(s): I50.9 - Heart failure, unspecified
--- NOTE | 2020-12-20 18:34 | Electrocardiogram Report ---
Test Reason : Blood Pressure : / mmHG Vent. Rate : 064 BPM Atrial Rate : 064 BPM P-R Int : 200 ms QRS Dur : 156 ms QT Int : 458 ms P-R-T Axes : 033 -52 -12 degrees QTc Int : 472 ms Normal sinus rhythm Right bundle branch block Left anterior fascicular block Bifascicular block Abnormal ECG When compared with ECG of 08-DEC-2020 11:25, No significant change was found Confirmed by Mitch Haynes [id number]) on 12/20/2020 6:33:45 PM Referred By: [facility] Confirmed By:Terrell Haynes
[2020-12-20] MEDS: MONTELUKAST SODIUM 10 MG TABLET PO SCH (21:55)
[2020-12-20] MEDS: GABAPENTIN 300 MG CAP PO SCH (21:55)
[2020-12-20] MEDS: ATORVASTATIN 40 MG TAB PO SCH (21:55)
[2020-12-21] MEDS ORDERED: lisinopril 10 MG TAB PO SCH (09:00)
[2020-12-21] MEDS: PANTOprazole 40 MG in SYRINGE 0 ML IV SCH (09:08)
[2020-12-21] MEDS: FUROSEMIDE 40 MG in SYRINGE 0 ML IV SCH (09:08)
[2020-12-21] MEDS: amLODIPine BESYLATE 5 MG TAB PO SCH (09:09)
[2020-12-21] MEDS: DULoxetine HCL 60 MG CAP PO SCH (09:09)
[2020-12-21] MEDS: CHOLECALCIFEROL 1,000 UNITS 25 MCG TAB PO SCH (09:09)
[2020-12-21] MEDS: guaiFENesin 600 MG TABCR PO SCH (09:09)
[2020-12-21] MEDS: TAMSULOSIN HCL 0.4 MG CAP PO SCH (09:09)
[2020-12-21] MEDS: UMECLIDINIUM/VILANTEROL 62.5/25MCG 7 PUFFS/INHALER INH SCH (09:10)
[2020-12-21] MEDS: INSULIN GLARGINE SOLOSTAR 100 UNITS/ML 3 ML PEN SC SCH (09:10)
[2020-12-21] MEDS: INSULIN ASPART 100 UNITS/ML 3 ML PEN SC SCH ×2 (09:11→12:39)
[2020-12-21] MEDS: POTASSIUM CHLORIDE CRTAB 20 MEQ TABCR PO SCH (09:32)
--- NOTE | 2020-12-21 12:27 | Discharge Summary ---
Date of Service December 21, 2020 Admission HPI Per Admitting Provider The patient is a 65-year-old man with a history of CHF and COPD who wears oxygen. He was recently admitted with Covid pneumonia and is currently at [facility] for inpatient rehab. He has had COVID-19 since middle of October and received Tocilizumab, remdesivir and a full course of steroids. Although the patient himself has no reports of concerns, he was sent over by staff for worsening shortness of breath. It is noted the patient is very physically deconditioned, obese and is a poor historian. For example, he did not realize he had an indwelling urinary catheter in place. He denies any current chest pain, fevers, chills, abdominal pain, stool changes, urinary symptoms. From a functional standpoint he is very sedentary. During his last visit he was seen by pulmonary and cardiology subspecialists; the medical team was treating him for acute on chronic respiratory failure with hypoxemia secondary to a post Covid pneumonitis with multifocal infiltrates. No new medications were started at discharge. While at [facility] the patient was on cefepime and Levaquin with some improvement. CT of the chest with contrast today reveals no acute pulmonary embolus and infiltrates that are slightly worse than recent CT. BNP mildly elevated and patient was given intravenous Lasix in the ER. Admission Exam Per Admitting Provider CONSTITUTIONAL: obese, unkempt, vitals as above, generally NAD EYES: normal conjunctivae, no scleral icterus ENT: external ear and nose normal, MMM RESPIRATORY: clear to auscultation bilaterally, no crackles, rales or wheezes, normal respiratory effort CARDIOVASCULAR: regular rate and rhythm, S1 and 2 heard without murmurs, gallops or rubs, no JVD, no peripheral edema GASTROINTESTINAL: soft, nontender, nondistended MUSCULOSKELETAL: generalized weakness, cannot sit up on his own SKIN: warm and dry NEUROLOGIC: CN 2-12 grossly intact, normal cognition, normal speech, no gross focal deficits. PSYCHIATRIC: alert cooperative and oriented to person, place and time. Principal Diagnosis Acute on chronic respiratory failure in setting of COVID-19 virus Bradyarrhythmia Hypertension Bright red rectal bleed Bilateral Viral pneumonia: COVID-19 virus infection: Flexor tenosynovitis of finger: CHF (congestive heart failure): Anemia: Diabetes mellitus, type II: Depression: Hypomagnesemia: Discharge Exam ROS-No Headache, No Visual Changes, No Nausea, No Vomiting, No Fever, No Chills, No Neck Pain or Stiffness, No Chest Pain, No Palpitations, No SOB, No BARR, No Cough, No Sputum, No Wheezing, No Abdominal Pain, No Diarrhea, No Hematemesis, No Hemoptysis, No Unexpected Weight Loss, No Flank pain, No Melena, No Hematochezia, No Frequency, No Urgency, No Burning, No Hematuria, No Rashes, No Diaphoresis. Appetite is Normal Physical Exam Gen-AAO x 3, NAD, Afebrile Head-NCAT, EOMI, PERRLA, Anicteric Sclera, No Posterior Pharyngeal Erythema Neck-Supple, No JVD, No Thyromegaly, No Masses, No LAD, No Bruits Lungs-Clear to Auscultation Bilaterally, No Rales, No Rhonchi, No Wheezing, No Crepitus Chest-No S4, +S1, +S2, No S3, No Murmurs, No Rubs, No Gallops, No Ectopy Abdomen-Soft, Bowel Sounds Present, Non Tender, Non Distended, No Hepatomegaly, No Splenomegaly, No Palpable Masses, No Rebound, No Rigidity, No Guarding Musculoskeletal-Full Range of Motion Bilaterally, No CVAT Extremities-No Cyanosis, No Clubbing, No Edema Nuero-Cranial Nerves II-XII grossly intact, Motor WNL, DTRs WNL, Strength WNL, Non Focal Psych-Normal Mood Discharge Data Allergies Allergy/AdvReac Type Severity Reaction Status Date / Time No Known Allergies Allergy Verified 12/08/20 11:29 Consultations 12/08/20 17:38 ED Decision to Admit Stat 12/09/20 00:30 Consult Pulmonology Routine 12/16/20 08:00 Consult Gastroenterology Routine Ordered Studies 12/08/20 13:30 CT angio chest PE protocol Stat Current Diagnoses Anemia, unspecified (12/08/20) Type 2 diabetes mellitus without complications (12/08/20) Hypomagnesemia (12/08/20) Major depressive disorder, single episode, unspecified (12/08/20) Heart failure, unspecified (12/08/20) Pneumonia, unspecified organism (12/08/20) Respiratory failure, unspecified, unspecified whether with hypoxia or hypercapnia (12/08/20) Hemorrhage of anus and rectum (12/08/20) Synovitis and tenosynovitis, unspecified (12/08/20) Dyspnea, unspecified (12/08/20) Hypoxemia (12/08/20) Other nonspecific abnormal finding of lung field (12/08/20) COVID-19 (12/08/20) Encounter for prophylactic measures, unspecified (12/08/20) Allergies No Known Allergies Allergy (Verified 12/08/20 11:29) Height/Weight/Isolation Height 6 ft 1 in Weight 153 kg Isolation Type Removed Precautions Chemistry 12/20/20 14:50 Sodium 139 Potassium 4.5 D Chloride 107 Carbon Dioxide 29 Anion Gap 3.0 BUN 21 H Creatinine 1.34 Glucose 134 H Hospital Course (1) Respiratory failure: Acute on chronic respiratory failure in setting of COVID-19 virus infection with recent post Covid pneumonitis. Now with worsening shortness of breath and worsening infiltrates. Has been on diuretics since admission and appears improved since then No indication for steroids or antibiotics at this time. Appreciate pulmonary input and recommendation Remains stable and seems to be improving a little bit Still requiring 3 L of oxygen via nasal cannula to maintain saturation Mucinex has been added to suppress cough Remains stable and has been on his baseline requirements of oxygen to maintain saturation Denies any increasing shortness of breath and maintaining normal saturation with 2 L of nasal cannula oxygen Denies any more shortness of breath but he still has minimal cough Respiratory status is stable and has been requiring 2 L of oxygen via nasal cannula to maintain saturation Bradyarrhythmia Heart rate went down to 30s without any symptoms Noted to have Mobitz type I block in monitor I held Coreg Electrolytes were unremarkable We will increase lisinopril for blood pressure control Hypertension Blood pressures remains on the upper side We will add lisinopril at a smaller dose Blood pressure remains in the upper side but seems to be stable Blood pressure is controlled with addition of lisinopril Coreg has been on hold due to bradycardia Will increase lisinopril for control of blood pressure Bright red rectal bleed Appreciate GI input and recommendation Hemoglobin dropped to 7.9 from 8.4 and back to 8.6 on repeat test Will discontinue any NSAID's, Lovenox is on hold We will monitor H&H Hemoglobin remains more than 9 8.2 as of 12/19/2020 (2) Bilateral pneumonia: Resolving, he has already received full course of antibiotics and steroids with no further indication for that now. Initial worsening dyspnea may have been related to atypical pulmonary edema in setting of covid pneumonitis which is improved after diuretics. Repeat chest x-ray did not show any improvement of the infiltration We will continue minimal doses of diuretics and supportive care Doubt any superinfection at this time Viral pneumonia and doubt any bacterial superinfection (3) COVID-19 virus infection: Received 1 dose of Tocilizumab upon initial diagnosis in mid October followed by a course of remdesivir and dexamethasone. Cont supportive care measures. We will continue PT and OT evaluation before sending back to [facility] He has been accepted to [facility] and will be going to [facility] tomorrow if remains stable (4) Flexor tenosynovitis of finger: Ibuprofen PRN, if pain becomes significant may consider contacting ortho for a splint/injection therapy. (5) CHF (congestive heart failure): compensated, cont daily IV Lasix, hold Bumex. Continue to monitor daily weights, strict I's and O's and low-salt diet Clinically no signs of fluid overload Has been on intravenous Lasix Will change oral furosemide at discharge No signs and/or symptoms of fluid overload We will continue current intravenous Lasix We will change Lasix to oral (6) Anemia: Multifactorial in setting of multiple comorbidities and multiple recent hospitalizations. Noted to have bleeding per rectum last night Hemoglobin remained stable and GI evaluation is done Trend CBC and transfuse if needed-hemoglobin more than 9. (7) Diabetes mellitus, type II: Currently holding outpatient regimen of insulin and utilizing weight-based multi daily dose insulin schedule in the hospital. Most recent A1c is 7.1 on 11/30/2020 Blood sugar remains stable (8) Depression: Patient noted to be on Cymbalta and sertraline. Kept Cymbalta in place and drop sertraline to avoid any serotonin syndrome. Will need to discuss this and optimize him prior to discharge. No acute issues (9) Hypomagnesemia: improved. (10) DVT prophylaxis: Lovenox Full code Disposition-back to [facility] today Total Time Total Time Spent Total Time Spent (In Minutes): 45 mins Discharge Plan Discharge Items Patient Disposition: Transfer Inpatient Rehab Fac Reason For Visit: Acute Respiratory Failure Discharge Diagnosis: Acute on chronic respiratory failure in setting of COVID-19 virus Bradyarrhythmia Hypertension Bright red rectal bleed Bilateral Viral pneumonia: COVID-19 virus infection: Flexor tenosynovitis of finger: CHF (congestive heart failure): Anemia: Diabetes mellitus, type II: Depression: Hypomagnesemia: Condition on Discharge: Good Health Concerns: None Activity: Resume your previous activity Bathing: No limitations Sexual Activity: Wait until after follow-up appointment Exercise/Sports: Gradually increase as tolerated Driving/Machine Use: No limitations Weightbearing: Full weightbearing Non-emergency contact: Primary Care Provider Call non-emergency contact if: you have any medication questions Follow-up/Referrals: [facility] [Primary Care Provider] - Diet: Carb Consistent or DM2 and Heart Healthy Addtl Attending Provider Instructions: None Pending Studies at Discharge: No Stand-Alone Forms: [facility] Patient informed of condition?: Yes DNR: No Discharge Level of Care: Acute rehab Communicable Disease: No Discharge Prognosis: Improving Lines: None Urinary Catheter: No Medications and DC Order Prescriptions: New lisinopril 10 mg Tablet 10 mg PO QAM Qty: 30 RF: 0 Continued atorvastatin 40 mg Tablet 40 mg PO HS RF: 0 carvedilol 12.5 mg Tablet 12.5 mg PO BIDM RF: 0 sertraline 100 mg Tablet 100 mg PO DAILY RF: 0 tamsulosin 0.4 mg Capsule 0.8 mg PO DAILY RF: 0 pantoprazole [Protonix] 40 mg Tablet,Delayed Release (Dr/Ec) 40 mg PO DAILY RF: 0 ferrous sulfate 325 mg (65 mg iron) Tablet 325 mg PO BID RF: 0 montelukast [Singulair] 10 mg Tablet 10 mg PO HS RF: 0 duloxetine 30 mg Capsule,Delayed Release(Dr/Ec) 60 mg PO DAILY RF: 0 cholecalciferol (vitamin D3) [Vitamin D3] 50 mcg (2,000 unit) Capsule 50 mcg PO DAILY RF: 0 acetaminophen [Tylenol] 325 mg Tablet 650 mg PO Q4 PRN (Reason: PAIN , SCALE 1-3) RF: 0 polyethylene glycol 3350 [Miralax] 17 gram Powder In Packet 17 g PO DAILY PRN (Reason: Constipation) RF: 0 sennosides-docusate sodium [Senokot-S] 8.6-50 mg Tablet 1 tab-cap PO .QLUNCH PRN RF: 0 magnesium hydroxide [Milk of Magnesia] 400 mg/5 mL Suspension 30 ml PO DAILY PRN (Reason: Constipation) RF: 0 docusate sodium 100 mg Capsule 100 mg PO BID PRN (Reason: Constipation) RF: 0 ipratropium-albuterol 20-100 mcg/actuation Mist 1 puff INHALATION QID RF: 0 bumetanide 2 mg Tablet 2 mg PO DAILY RF: 0 insulin aspart U-100 [Novolog U-100 Insulin aspart] 100 unit/mL Solution 5 unit SUBCUT TIDM RF: 0 insulin glargine 100 unit/mL Cartridge 15 unit SUBCUT BID RF: 0 amlodipine 10 mg Tablet 10 mg PO DAILY RF: 0 potassium chloride 20 mEq Tablet Extended Release 20 meq PO DAILY RF: 0 gabapentin 300 mg Capsule 300 mg PO HS RF: 0 Anoro Ellipta 62.5-25 mcg/actuation Blister With Device 1 inh INHALATION DAILY RF: 0 Discharge Orders: Discharge Order (Routine); Ordered 12/21/20 Ordered By: Ori Teague Admission Data Admit Date/Time: 12/08/20 18:49 Attending Provider: Ori Teague Admit Provider: Neha Mittal Primary Care Provider: [facility]
== END 2020-12-21 14:39 | DRG 177 ==
LOC: ED 11:11 → SUATTDRO 18:49 → 2E 18:49 → 2N 12-14 13:16

== ENCOUNTER 2020-12-30 09:10 | Inpatient (IN) ==
--- NOTE | 2020-12-30 09:58 | Emergency Department Note ---
Impression & Plan Cellulitis of hand, right, Tenosynovitis of right hand ED Provider Note CHIEF COMPLAINT: Right hand pain, swelling, redness HISTORY OF PRESENTING ILLNESS: This is a 65-year-old male who presents to the emergency department from [facility] with concerns for right hand swelling and pain for the past few days that has been getting progressively worse. The patient was started on Keflex yesterday. He denies any fevers or chills, but states that the pain has been getting worse and worse. He has constant pain that he describes as pressure and aching and has increased pain with any mo vement of the hand or fingers, he currently rates the pain 9/10. He notes that he has been getting morphine at [facility] for his pain which has been helping. He is right-hand dominant. He denies any known injury to the right hand prior to this starting. He does note that he has arthritis in his hands and that the hand started hurting a few weeks ago, but did not start getting swollen or red until a few days ago. He denies any chest pain, chest tightness, shortness of breath, or dizziness. The patient was recently admitted due to complications of COVID-19, and Has Been at [facility] since his discharge. He feels that he is improving overall with regards to his COVID-19 symptoms and has been stable on 3 L of nasal cannula oxygen. REVIEW OF SYSTEMS: A complete 10 point review of systems was reviewed with the patient with pertinent positives and negatives as per history of present illness. All else were negative. PAST MEDICAL HISTORY: Hypertension, hyperlipidemia, type 2 diabetes, congestive heart failure, morbid obesity, coronary artery disease, chronic kidney disease, obstructive sleep apnea, SOCIAL HISTORY: Lives at home, denies tobacco use ALLERGIES: No known drug allergies PHYSICAL EXAM: CONSTITUTIONAL: Pleasant and cooperative. Nontoxic-appearing and in no acute distress. Well appearing and well nourished. HEENT: Normocephalic, atraumatic. NECK: Supple, full active range of motion without discomfort. RESPIRATORY: Clear to auscultation bilaterally with no wheezing, crackles, rhonchi or stridor. Equal expansion bilaterally. CARDIOVASCULAR: Regular rate and rhythm with no murmurs, rubs or gallops. Normal peripheral perfusion. No edema. GASTROINTESTINAL: Soft, nontender, nondistended. No palpable masses or HSM. Bowel sounds present in all quadrants. MUSCULOSKELETAL: Diffuse pitting edema of the right hand, most prominent over the dorsum and involving the second and third fingers. Erythema and warmth. Exquisitely tender to palpation and increased pain with passive flexion and extension of the fingers, most painful of the second and third fingers. There is an area of fluctuance over the dorsal aspect of the hand just proximal to the third MCP joint. No open wound or drainage noted. Erythema and swelling extends through the wrist to the first third of the forearm on the dorsal side. There is pain with range of motion of the right wrist as well. No pain in the right elbow or shoulder. INTEGUMENTARY: No rash or other significant dermatologic conditions noted. NEUROLOGIC: Alert and oriented X 4 with normal affect. Normal strength and sensation in all 4 extremities. Normal speech. ED COURSE AND MEDICAL DECISION MAKING: CC: Patient presenting with complaint of right hand infection DIFFERENTIAL DIAGNOSIS: Includes, but not limited to cellulitis, abscess, osteomyelitis, septic joint, tenosynovitis, MRSA infection, osteoarthritis, fracture, bacteremia/sepsis, among others. INTERPRETATION OF LABS: Leukocytosis, mild anemia (consistent with baseline), normal platelets, no significant electrolyte abnormalities, elevated BUN with a normal creatinine, normal liver enzymes. Lactate within normal limits. Procalcitonin is not significantly elevated. Inflammatory markers elevated. EKG: Shows normal sinus rhythm with a rate of 75 bpm, right bundle branch block, left anterior fascicular block, no ectopy and no significant changes when compared to previous EKG from 12/20/2020 by my interpretation. MEDICATION RECONCILIATION: I attest that I have personally reviewed the patient's current medication list. INITIAL VITAL SIGNS REVIEW: I reviewed the patient's initial vital signs and interpret them as follows: T: Afebrile; BP: Hypertensive; HR: Within normal limits; RR: Within normal limits; Pulse Ox: Within normal limits on 3 L nasal cannula. MDM SUMMARY: Patient was evaluated at bedside, history and physical exam performed. Patient is alert and oriented, in no acute distress, resting calmly in stretcher . He is afebrile and nontoxic-appearing. The right hand appears diffusely edematous, erythematous, and warm to the touch. Extremely tender to palpation and pain with passive flexion and extension of the second and third fingers, which is clinically concerning for infectious tenosynovitis. Cardiac monitoring: An order was placed for continuous cardiac monitoring. The monitor shows a rate of 72 bpm with sinus rhythm. Review of the patient's chart noting a recent admission to the hospital for co mplications secondary to COVID-19 infection. The patient was apparently treated empirically with cefepime and vancomycin for 2 days, at which time these were stopped. He does not appear to have been on any additional antibiotics until being placed on Keflex yesterday. Orders were placed for labs including lactic acid, procalcitonin, CRP and ESR, blood cultures x2, UA, EKG, x-ray of the right hand to evaluate for hand cellulitis. IV morphine was ordered for pain. Patient discussed with Dr. Berg, who agrees with my assessment, plan, and disposition. Labs and imaging reviewed, labs are notable for leukocytosis and elevated inflammatory markers. Lactate and procalcitonin were not elevated. Anemia and renal function appear to be within baseline. X-ray of the hand shows diffuse soft tissue edema without any evidence of osteomyelitis, as well as chronic degenerative changes. I spoke on the phone with Dr. Stephens, orthopedic surgery, who agrees to consult and recommended the patient be admitted the hospitalist service for management. He was agreeable with IV antibiotic treatment prior to any I&D procedure being performed to the hand. Orders were placed for vancomycin and cefepime for broad coverage at this point. Patient reassessed multiple times throughout ED stay, he has remained hemodynamically stable and afebrile and notes his pain is improved with the morphine. The patient was updated on all results and plan for admission, all questions were answered to the best of my ability and the patient was agreeable to this plan. Admission request was made to the hospitalist, Dr. Lorenzo, who did evaluate the patient and perform the admission. The patient was stable at the time of admission. The chart was completed utilizing [employer] Speech voice recognition software. Grammatical errors, random word insertions, pronoun errors, and incomplete sentences are an occasional consequence of this system due to software limitations, ambient noise, and hardware issues. Any formal questions or concerns about the content, text, or information contained within the body of this dictation should be directly addressed to the nurse practitioner for clarification. 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 Beliefs That Will Affect Care: None marital status: Single Current Living Situation: Rehab How many Children do You have: 0 Feels Safe at Home: Yes Assistive Devices: Oxygen - Continuous Allergies Allergies Allergy/AdvReac Type Severity Reaction Status Date / Time No Known Allergies Allergy Verified 12/08/20 11:29 Home Meds Home Medications Medication Instructions Recorded Confirmed acetaminophen 325 mg tablet 650 mg PO Q4 PRN 11/29/20 12/30/20 (Tylenol) amlodipine 10 mg tablet 10 mg PO DAILY 11/29/20 12/30/20 atorvastatin 40 mg tablet 40 mg PO HS 11/29/20 12/30/20 bumetanide 2 mg tablet 2 mg PO DAILY 11/29/20 12/30/20 carvedilol 12.5 mg tablet 12.5 mg PO BIDM 11/29/20 12/30/20 cholecalciferol (vitamin D3) 50 50 mcg PO DAILY 11/29/20 12/30/20 mcg (2,000 unit) capsule (Vitamin D3) docusate sodium 100 mg capsule 100 mg PO BID PRN 11/29/20 12/30/20 duloxetine 30 mg capsule,delayed 60 mg PO DAILY 11/29/20 12/30/20 release ferrous sulfate 325 mg (65 mg 325 mg PO BID 11/29/20 12/30/20 iron) tablet gabapentin 300 mg capsule 300 mg PO HS 11/29/20 12/30/20 insulin aspart U-100 100 unit/mL 5 unit SUBCUT TIDM 11/29/20 12/30/20 subcutaneous solution (Novolog U-100 Insulin aspart) insulin glargine 100 unit/mL 15 unit SUBCUT BID 11/29/20 12/30/20 subcutaneous cartridge ipratropium 20 mcg-albuterol 100 1 puff INHALATION QID 11/29/20 12/30/20 mcg/actuation mist for inhalation magnesium hydroxide 400 mg/5 mL 30 ml PO DAILY PRN 11/29/20 12/30/20 oral suspension (Milk of Magnesia) montelukast 10 mg tablet 10 mg PO HS 11/29/20 12/30/20 (Singulair) pantoprazole 40 mg tablet,delayed 40 mg PO DAILY 11/29/20 12/30/20 release (Protonix) polyethylene glycol 3350 17 gram 17 g PO DAILY PRN 11/29/20 12/30/20 oral powder packet (Miralax) potassium chloride 20 mEq 20 meq PO DAILY 11/29/20 12/30/20 tablet,extended release sennosides 8.6 mg-docusate sodium 1 tab-cap PO .QLUNCH PRN 11/29/20 12/30/20 50 mg tablet (Senokot-S) sertraline 100 mg tablet 100 mg PO DAILY 11/29/20 12/30/20 tamsulosin 0.4 mg capsule 0.8 mg PO DAILY 11/29/20 12/30/20 umeclidinium 62.5 mcg-vilanterol 1 inh INHALATION DAILY 11/29/20 12/30/20 25 mcg/actuation powdr for inhalation (Anoro Ellipta) Previous Rx's Medication Instructions Recorded lisinopril 10 mg tablet 10 mg PO QAM #30 tab 12/21/20 Results & Data (ED) Vital Signs Vital Signs - 24 hr 12/30/20 09:17 12/30/20 11:31 12/30/20 12:02 Temperature 36.8 C Temperature Source Temporal Artery Scan Pulse Rate 80 76 66 Pulse Rate [Apical] Pulse Rate from SpO2 Sensor 73 66 Respiratory Rate 18 20 20 Respiratory Depth Normal Blood Pressure 145/71 H 124/92 165/93 H Blood Pressure [Left Arm] Blood Pressure Mean 95 102 117 Blood Pressure Mean [Left Arm] Pulse Oximetry 98 97 98 Oxygen Delivery Method Nasal Cannula Oxygen Flow Rate 3 Sepsis Recent Fever Within 48 Hours No Sepsis New/Unexplained Change in Mental Status No Sepsis Action Taken by Nursing No Action Required 12/30/20 12:03 Temperature Temperature Source Pulse Rate Pulse Rate [Apical] 66 Pulse Rate from SpO2 Sensor Respiratory Rate 20 Respiratory Depth Blood Pressure Blood Pressure [Left Arm] 165/93 H Blood Pressure Mean Blood Pressure Mean [Left Arm] 117 Pulse Oximetry 100 Oxygen Delivery Method Room Air Oxygen Flow Rate Sepsis Recent Fever Within 48 Hours Sepsis New/Unexplained Change in Mental Status Sepsis Action Taken by Nursing Laboratory Data Result diagrams: 12/30/20 10:00 12/30/20 10:00 Lab Results 12/30/20 12/30/20 12/30/20 Range/Units 10:00 10:00 10:00 WBC 13.64 H (4.8-10.8) K/uL RBC 3.16 L (4.7-6.1) M/uL Hgb 9.3 L (14.0-18.0) g/dL Hct 27.7 L (42-52) % MCV 87.7 (80-100) fL MCH 29.4 (25-34) pg MCHC 33.6 (32-36) g/dL RDW Std Deviation 48.5 H (36.4-46.3) fL RDW Coeff of Xin 15.1 H (11.5-14.5) % Plt Count 235 (130-400) K/uL MPV 9.5 (7.4-10.4) fL Immature Gran % (Auto) 0.6 % Neut % (Auto) 76.5 % Lymph % (Auto) 11.8 % [place] % (Auto) 10.6 % Eos % (Auto) 0.4 % Baso % (Auto) 0.1 % Neut # (Auto) 10.43 H (1.4-6.5) K/uL Lymph # (Auto) 1.61 (1.2-3.4) K/uL [place] # (Auto) 1.44 H (0.11-0.59) K/uL Eos # (Auto) 0.06 (0-0.5) K/uL Baso # (Auto) 0.02 (0-0.2) K/uL Immature Gran # (Auto) 0.08 H (0.00-0.02) K/uL ESR (0-20) mm/hr Sodium 135 L (136-145) mmol/L Potassium 4.0 (3.5-5.1) mmol/L Chloride 102 (98-107) mmol/L Carbon Dioxide 30 (21-32) mmol/L Anion Gap 3.0 (3-11) BUN 41 H (7-18) mg/dl Creatinine 1.18 (0.6-1.4) mg/dl Est Cr Clr Drug Dosing Not Reportable Est GFR ( Amer) 75.7 ml/min Est GFR (Non-Af Amer) 65.3 ml/min BUN/Creatinine Ratio 34.5 H (10-20) Glucose 117 H (70-99) mg/dl POC Glucose (70-99) mg/dl Lactate (0.4-2.0) mmol/L Calcium 9.6 (8.5-10.1) mg/dl Total Bilirubin 0.3 (0.2-1) mg/dl AST 13 L (15-37) U/L ALT 27 (12-78) U/L Alkaline Phosphatase 109 (45-117) U/L C-Reactive Protein 11.20 H (0-0.29) mg/dl Total Protein 7.0 (6.4-8.2) gm/dl Albumin 2.6 L (3.4-5.0) gm/dl Globulin 4.4 H (2.5-4.0) gm/dl Albumin/Globulin Ratio 0.6 L (0.9-2) Procalcitonin 0.09 (0-0.5) ng/ml Urine Color Urine Appearance (Clear) Urine pH (4.5-7.5) Ur Specific [place] (1.000-1.030) Urine Protein (Negative) Urine Glucose (UA) (Negative) Urine Ketones (Negative) Urine Blood (Negative) Urine Nitrite (Negative) Urine Bilirubin (Negative) Urine Urobilinogen (Negative) Ur Leukocyte Esterase (Negative) COVID-19 Eval Order SARS-CoV-2 (PCR) (Negative) 12/30/20 12/30/20 12/30/20 Range/Units 10:00 10:00 10:42 WBC (4.8-10.8) K/uL RBC (4.7-6.1) M/uL Hgb (14.0-18.0) g/dL Hct (42-52) % MCV (80-100) fL MCH (25-34) pg MCHC (32-36) g/dL RDW Std Deviation (36.4-46.3) fL RDW Coeff of Xin (11.5-14.5) % Plt Count (130-400) K/uL MPV (7.4-10.4) fL Immature Gran % (Auto) % Neut % (Auto) % Lymph % (Auto) % [place] % (Auto) % Eos % (Auto) % Baso % (Auto) % Neut # (Auto) (1.4-6.5) K/uL Lymph # (Auto) (1.2-3.4) K/uL [place] # (Auto) (0.11-0.59) K/uL Eos # (Auto) (0-0.5) K/uL Baso # (Auto) (0-0.2) K/uL Immature Gran # (Auto) (0.00-0.02) K/uL ESR 72 H (0-20) mm/hr Sodium (136-145) mmol/L Potassium (3.5-5.1) mmol/L Chloride (98-107) mmol/L Carbon Dioxide (21-32) mmol/L Anion Gap (3-11) BUN (7-18) mg/dl Creatinine (0.6-1.4) mg/dl Est Cr Clr Drug Dosing Est GFR ( Amer) ml/min Est GFR (Non-Af Amer) ml/min BUN/Creatinine Ratio (10-20) Glucose (70-99) mg/dl POC Glucose 107 H (70-99) mg/dl Lactate 1.3 (0.4-2.0) mmol/L Calcium (8.5-10.1) mg/dl Total Bilirubin (0.2-1) mg/dl AST (15-37) U/L ALT (12-78) U/L Alkaline Phosphatase (45-117) U/L C-Reactive Protein (0-0.29) mg/dl Total Protein (6.4-8.2) gm/dl Albumin (3.4-5.0) gm/dl Globulin (2.5-4.0) gm/dl Albumin/Globulin Ratio (0.9-2) Procalcitonin (0-0.5) ng/ml Urine Color Urine Appearance (Clear) Urine pH (4.5-7.5) Ur Specific [place] (1.000-1.030) Urine Protein (Negative) Urine Glucose (UA) (Negative) Urine Ketones (Negative) Urine Blood (Negative) Urine Nitrite (Negative) Urine Bilirubin (Negative) Urine Urobilinogen (Negative) Ur Leukocyte Esterase (Negative) COVID-19 Eval Order SARS-CoV-2 (PCR) (Negative) 12/30/20 12/30/20 12/30/20 Range/Units 10:43 10:43 11:35 WBC (4.8-10.8) K/uL RBC (4.7-6.1) M/uL Hgb (14.0-18.0) g/dL Hct (42-52) % MCV (80-100) fL MCH (25-34) pg MCHC (32-36) g/dL RDW Std Deviation (36.4-46.3) fL RDW Coeff of Xin (11.5-14.5) % Plt Count (130-400) K/uL MPV (7.4-10.4) fL Immature Gran % (Auto) % Neut % (Auto) % Lymph % (Auto) % [place] % (Auto) % Eos % (Auto) % Baso % (Auto) % Neut # (Auto) (1.4-6.5) K/uL Lymph # (Auto) (1.2-3.4) K/uL [place] # (Auto) (0.11-0.59) K/uL Eos # (Auto) (0-0.5) K/uL Baso # (Auto) (0-0.2) K/uL Immature Gran # (Auto) (0.00-0.02) K/uL ESR (0-20) mm/hr Sodium (136-145) mmol/L Potassium (3.5-5.1) mmol/L Chloride (98-107) mmol/L Carbon Dioxide (21-32) mmol/L Anion Gap (3-11) BUN (7-18) mg/dl Creatinine (0.6-1.4) mg/dl Est Cr Clr Drug Dosing Est GFR ( Amer) ml/min Est GFR (Non-Af Amer) ml/min BUN/Creatinine Ratio (10-20) Glucose (70-99) mg/dl POC Glucose (70-99) mg/dl Lactate (0.4-2.0) mmol/L Calcium (8.5-10.1) mg/dl Total Bilirubin (0.2-1) mg/dl AST (15-37) U/L ALT (12-78) U/L Alkaline Phosphatase (45-117) U/L C-Reactive Protein (0-0.29) mg/dl Total Protein (6.4-8.2) gm/dl Albumin (3.4-5.0) gm/dl Globulin (2.5-4.0) gm/dl Albumin/Globulin Ratio (0.9-2) Procalcitonin (0-0.5) ng/ml Urine Color Yellow Urine Appearance Clear (Clear) Urine pH 5.0 (4.5-7.5) Ur Specific [place] 1.009 (1.000-1.030) Urine Protein Negative (Negative) Urine Glucose (UA) Negative (Negative) Urine Ketones Negative (Negative) Urine Blood Negative (Negative) Urine Nitrite Negative (Negative) Urine Bilirubin Negative (Negative) Urine Urobilinogen Negative (Negative) Ur Leukocyte Esterase Negative (Negative) COVID-[address] Eval [address] Cov[address] at [facility] SARS-CoV-2 (PCR) POSITIVE A* (Negative) Administered Medications Vancomycin HCl 1,000 mg/ (Sodium Chloride) 270 mls @ 200 mls/hr IV Q12H ZOHAIB; Protocol Stop: 01/06/21 13:14 Last Admin: 12/30/20 15:29 Dose: Not Given Documented by: Clindamycin Phosphate 600 mg/ (Dextrose) 54 mls @ 100 mls/hr IV Q8H ZOHAIB Stop: 01/01/21 13:14 Last Admin: 12/30/20 15:29 Dose: Not Given Documented by: Discontinued Medications Cefepime HCl (Maxipime) 2,000 mg in 20 mls @ 5 mls/min IV NOW STA; Protocol Stop: 12/30/20 11:26 Last Admin: 12/30/20 11:40 Dose: 5 mls/min Documented by: [id number] Vancomycin HCl 2,750 mg/ (Sodium Chloride) 555 mls @ 200 mls/hr IV NOW ONE Stop: 12/30/20 14:09 Last Admin: 12/30/20 11:45 Dose: 200 mls/hr Documented by: [id number] Morphine Sulfate (Morphine Sulfate 4 Mg/Ml 1 Ml Carp\Vial) 4 mg IV NOW STA Stop: 12/30/20 11:26 Last Admin: 12/30/20 11:40 Dose: 4 mg Documented by: [id number] Imaging Data Radiologist's Impression: Hand X-Ray 12/30/20 09:38 RIGHT HAND 3 VIEWS CLINICAL HISTORY: Cellulitis. FINDINGS: 3 views of the right hand are obtained. No prior studies are available for comparison at the time of dictation. The skeletal structures are heterogeneo usly osteopenic. No acute fracture is identified. There is chronic posttraumatic deformity of the fourth and fifth metacarpals. No bony erosion or periostitis is identified. Advanced degenerative narrowing is seen at the radiocarpal articulation with near complete loss of the joint space. There is mild widening between the scaphoid and the lunate suggestive of ligamentous injury. Mild to moderate osteoarthritic change is seen at the first carpometacarpal joint. Osteoarthritic change is noted in the interphalangeal joints, distal greater than proximal. Diffuse soft tissue edema is present throughout the wrist and hand. No radiodense foreign body or subcutaneous gas is identified. IMPRESSION: 1. Diffuse soft tissue edema with no acute bony abnormality identified. 2. Osteopenia with chronic and degenerative changes as above. Electronically signed by: Theron Veronica M.D. 12/30/2020 10:30 AM Discharge Plan Visit Data Chief Complaint: Hand Injury/Pain Stated Complaint: RFERRED BY DOCTOR, R HAND PAIN SWELLING ED Provider: Anil Berg ED Midlevel Provider: Mee Lewis Discharge Problem: Cellulitis of hand, right, Tenosynovitis of right hand Patient Disposition: Admitted As Inpatient Condition: Good Discharge Instructions Interventions: ED Discharge Assessment Last Done: 12/30/20 14:21
[2020-12-30 10:26] LABS: Basophils # (auto) 0.02 K/uL (0-0.2); Basophils % (auto) 0.1 %; Eosinophils # (auto) 0.06 K/uL (0-0.5); Eosinophils % (auto) 0.4 %; Hematocrit (blood only) 27.7 % (42-52); Hemoglobin 9.3 g/dL (14.0-18.0); Immature Granulocytes # (auto) 0.08 K/uL (0.00-0.02); Immature Granulocytes % (auto) 0.6 %; Lymphocytes # (auto) 1.61 K/uL (1.2-3.4); Lymphocytes % (auto) 11.8 %; Mean Corpuscular Hemoglobin 29.4 pg (25-34); Mean Corpuscular Hgb Conc 33.6 g/dL (32-36); Mean Corpuscular Volume 87.7 fL (80-100); Mean Platelet Volume 9.5 fL (7.4-10.4); Monocytes # (auto) 1.44 K/uL (0.11-0.59); Monocytes % (auto) 10.6 %; Neutrophils # (auto) 10.43 K/uL (1.4-6.5); Neutrophils % (auto) 76.5 %; Platelet Count 235 K/uL (130-400); RDW Coefficient of Variation 15.1 % (11.5-14.5); RDW Standard Deviation 48.5 fL (36.4-46.3); Red Blood Count 3.16 M/uL (4.7-6.1); White Blood Count 13.64 K/uL (4.8-10.8)
--- NOTE | 2020-12-30 10:31 | XRay Report ---
RIGHT HAND 3 VIEWS CLINICAL HISTORY: Cellulitis. FINDINGS: 3 views of the right hand are obtained. No prior studies are available for comparison at th e time of dictation. The skeletal structures are heterogeneously osteopenic. No acute fracture is rashel ntified. There is chronic posttraumatic deformity of the fourth and fifth metacarpals. No bony erosio n or periostitis is identified. Advanced degenerative narrowing is seen at the radiocarpal articulati on with near complete loss of the joint space. There is mild widening between the scaphoid and the shawn [place]og[place] suggestive of ligamentous injury. Mild to moderate osteoarthritic change is seen at the first ca rpometacarpal joint. Osteoarthritic change is noted in the interphalangeal joints, distal greater robert n proximal. Diffuse soft tissue edema is present throughout the wrist and hand. No radiodense foreign body or subcutaneous gas is identified. IMPRESSION: 1. Diffuse soft tissue edema with no acute bony abnormality identified. 2. Osteopenia with chronic and degenerative changes as above. Electronically signed by: Theron Veronica M.D. 12/30/2020 10:30 AM
[2020-12-30 10:42] LABS: Alanine Aminotransferase 27 U/L (12-78); Albumin Level 2.6 gm/dl (3.4-5.0); Aspartate Aminotransferase 13 U/L (15-37); BUN Creatinine Ratio 34.5 (10-20); Blood Urea Nitrogen 41 mg/dl (7-18); Calcium 9.6 mg/dl (8.5-10.1); Carbon Dioxide 30 mmol/L (21-32); Chloride 102 mmol/L (98-107); Est GFR (African American) 75.7 ml/min; Est GFR (Non-African American) 65.3 ml/min; Glucose 117 mg/dl (70-99); Sodium 135 mmol/L (136-145)
[2020-12-30 10:45] LABS: Albumin Globulin Ratio 0.6 (0.9-2); Alkaline Phosphatase 109 U/L (45-117); Bilirubin,Total 0.3 mg/dl (0.2-1); Globulin 4.4 gm/dl (2.5-4.0)
[2020-12-30] MEDS ORDERED: VANCOMYCIN HCL 2,750 MG in SODIUM CHLORIDE 0.9% 500 ML IV ONE (11:23)
[2020-12-30] MEDS ORDERED: VANCOMYCIN CONSULT ACTIVE PRN ×2 (11:23→13:14)
[2020-12-30] MEDS ORDERED: CEFEPIME 2,000 MG/20 ML VIAL IV STA (11:23)
[2020-12-30] MEDS ORDERED: MoRPHine SULFATE 4 MG/ML 1 ML CARP\\VIAL IV STA (11:25)
[2020-12-30 11:55] LABS: Appearance Urine Clear (Clear); Bilirubin Urine Negative (Negative); Blood Urine Negative (Negative); Color Urine Yellow; Glucose Urine UA Negative (Negative); Ketones Urine Negative (Negative); Leukocyte Esterase Urine Negative (Negative); Nitrite Urine Negative (Negative); Protein Urine Negative (Negative); Specific Gravity Urine 1.009 (1.000-1.030); Urobilinogen Urine Negative (Negative)
[2020-12-30] MEDS ORDERED: VANCOMYCIN HCL 1,000 MG in SODIUM CHLORIDE 0.9% 250 ML IV SCH (13:15)
[2020-12-30] MEDS ORDERED: CLINDAMYCIN 600 MG in DEXTROSE 5% 50 ML IV SCH (13:15)
--- NOTE | 2020-12-30 13:22 | History & Physical Report ---
Date of Service December 30, 2020 Assessment & Plan (1) Flexor tenosynovitis of finger: Plan: 65 y/o M Hx HTN, HLD, DM II, anemia, morbidly obese, FRANCIS, COPD, diastolic CHF, critical COVID PNM 10/2020. Presents with R hand swelling/pain/erythema. The pt denies fevers. Initial labs are notable for leukocytosis and are otherwise at baseline. An XR of the hand demonstrated diffuse soft tissue edema with no acute bony abnormalities. The pt continues to test + for COVID. 1) Cellulitis of R hand - will need ortho evaluation - CT or MRI pending. Placed on Vanc/Clinda in interim. The cellulitis is impressive and the pt may need surgery. In this case, he is high risk and should be evaluated by cardiology prior. 2) CHF - assessing his volume status clinically is not possible - I/O, daily weights - cont Bumex, Carvedilol 3) CAD - no evidence of ACS - cont statin, beta iglesia 4) COPD - COVID - chronic resp failure - 02 protocol, prescribed inhalers 5) DM - sliding scale 6) Anemia - is at baseline 7) HTN, HLD - Lipitor, lisinopril, metoprolol Full code - Heparin prophylaxis Total time for this admit including review of labs, meds, imaging, records - discussion with pt and ER attending - 55 min (2) Dyspnea: (3) Obstructive sleep apnea: (4) COPD (chronic obstructive pulmonary disease): (5) Diabetes mellitus, type II: (6) CHF (congestive heart failure): (7) Hypertension: (8) Hyperlipidemia: (9) Coronary artery disease: (10) Anemia: History of Present Illness Chief Complaint: Cellulitis of R hand Primary Care Provider: [facility] 65 y/o M Hx HTN, HLD, DM II, anemia, morbidly obese, FRANCIS, COPD, diastolic CHF, critical COVID PNM 10/2020. Presents with R hand swelling/pain/erythema. The pt denies fevers. Initial labs are notable for leukocytosis and are otherwise at baseline. An XR of the hand demonstrated diffuse soft tissue edema with no acute bony abnormalities. The pt continues to test + for COVID. PMH: 1) HTN 2) HLD 3) DM II 4) Anemia - baseline Hb 8-10 5) Diastolic CHF 6) Morbidly obese 7) FRANCIS - noncompliant with CPAP 8) COPD - chronic respiratory failure - 2-3L 02 conrtinuos 9) COVID PNM 10) Chronic lower extremity edema and cellulitis 11) Depression 12) CAD Surgical: Limited to L knee arthroscopy Social: Formerly chewed tobacco. Rare ETOH Family: CAD, DM Allergies Allergy/AdvReac Type Severity Reaction Status Date / Time No Known Allergies Allergy Verified 12/08/20 11:29 Home Medications Medication Instructions Recorded Confirmed Type acetaminophen 325 mg tablet 650 mg PO Q4 PRN 11/29/20 12/30/20 History (Tylenol) amlodipine 10 mg tablet 10 mg PO DAILY 11/29/20 12/30/20 History atorvastatin 40 mg tablet 40 mg PO HS 11/29/20 12/30/20 History bumetanide 2 mg tablet 2 mg PO DAILY 11/29/20 12/30/20 History carvedilol 12.5 mg tablet 12.5 mg PO BIDM 11/29/20 12/30/20 History cholecalciferol (vitamin D3) 50 50 mcg PO DAILY 11/29/20 12/30/20 History mcg (2,000 unit) capsule (Vitamin D3) docusate sodium 100 mg capsule 100 mg PO BID PRN 11/29/20 12/30/20 History duloxetine 30 mg capsule,delayed 60 mg PO DAILY 11/29/20 12/30/20 History release ferrous sulfate 325 mg (65 mg 325 mg PO BID 11/29/20 12/30/20 History iron) tablet gabapentin 300 mg capsule 300 mg PO HS 11/29/20 12/30/20 History insulin aspart U-100 100 unit/mL 5 unit SUBCUT TIDM 11/29/20 12/30/20 History subcutaneous solution (Novolog U-100 Insulin aspart) insulin glargine 100 unit/mL 15 unit SUBCUT BID 11/29/20 12/30/20 History subcutaneous cartridge ipratropium 20 mcg-albuterol 100 1 puff INHALATION QID 11/29/20 12/30/20 History mcg/actuation mist for inhalation magnesium hydroxide 400 mg/5 mL 30 ml PO DAILY PRN 11/29/20 12/30/20 History oral suspension (Milk of Magnesia) montelukast 10 mg tablet 10 mg PO HS 11/29/20 12/30/20 History (Singulair) pantoprazole 40 mg tablet,delayed 40 mg PO DAILY 11/29/20 12/30/20 History release (Protonix) polyethylene glycol 3350 17 gram 17 g PO DAILY PRN 11/29/20 12/30/20 History oral powder packet (Miralax) potassium chloride 20 mEq 20 meq PO DAILY 11/29/20 12/30/20 History tablet,extended release sennosides 8.6 mg-docusate sodium 1 tab-cap PO .QLUNCH PRN 11/29/20 12/30/20 History 50 mg tablet (Senokot-S) sertraline 100 mg tablet 100 mg PO DAILY 11/29/20 12/30/20 History tamsulosin 0.4 mg capsule 0.8 mg PO DAILY 11/29/20 12/30/20 History umeclidinium 62.5 mcg-vilanterol 1 inh INHALATION DAILY 11/29/20 12/30/20 History 25 mcg/actuation powdr for inhalation (Anoro Ellipta) lisinopril 10 mg tablet 10 mg PO QAM #30 tab 12/21/20 12/30/20 Rx Past Med/Surg History Medical History (Updated 12/22/20 @ 00:10 by London Meredith) CHF (congestive heart failure) Coronary artery disease Depression Diabetes mellitus, type II Hyperlipidemia Hypertension Morbid obesity FRANCIS (obstructive sleep apnea) Pneumonia due to COVID-19 virus Venous insufficiency Surgical History H/O knee surgery Family History Other Throat cancer Social History Smoking Status: Never smoker Hx Alcohol Use: Yes Alcohol type: beer Hx Substance Use: No Preferred Language: Iraqi Communication Ability: Effective Family Advocate Required: No Beliefs That Will Affect Care: None marital status: Single Current Living Situation: Rehab How many Children do You have: 0 Feels Safe at Home: Yes Assistive Devices: Oxygen - Continuous Review of Systems Review of Systems: Gen: Denies fevers, night sweats, rigors, fatigue, malaise, weight loss/gain ENT: Denies congestion, throat pain, hearing loss Eyes: Denies acute visual changes CV: Denies CP, palpitations Pulmonary: SOB is chronic and at baseline GI: Denies N/V, diarrhea, constipation Neuro: Denies acute or unilateral weakness, acute gait impairment, headache or acute visual changes Musculoskeletal: Pain, inflammation and lack of mobility of R hand Endocrine: Denies polydipsia, polyuria Skin: Erythema of R hand - shallow ulcer L culver Physical Exam Physical Exam: General: Overweight, middle-aged M, AAO x 3, no distress ENT: No erythema or exudates, no thrush Eyes: ARVIN, EOMI Head and neck: Normocephalic, atraumatic - cannot assess JVD Chest/heart: Nontender, S1,2, RRR, no murmurs, no gallops Lungs: CTAB, no wheezing or crackles Abdomen: Nontender, nondistended, BS+ Neuro: AAO x 3, speech is clear, no unilateral weakness or loss of sensation, coordination intact Musculoskeletal: Impressive swelling of R hand - mobility of fingers is limited by severe pain with any movement Skin: + Erythema of R hand and shallow ulcer of R leg Extremities: + edema - per hand exam Results & Data Results & Data ([facility]) Vital Signs (Past 12 Hours) Vital Signs Temp Pulse Pulse Resp BP BP Pulse Ox 12/30/20 12:03 66 20 165/93 H 100 12/30/20 09:17 98.2 F 80 18 145/71 H 98 Code Status & VTE Plan VTE Prophylaxis Plan VTE Prophylaxis will be ordered: Yes PG Care Time/CCT Total # of Minutes Spent Total Time Spent with Patient: Total time spent is greater than 50% in coordination of care (as documented) at patient's floor/unit and/or counseling patient: Coding Level of Care Code 77864 Initial Inpt Care Lvl 3 Diagnoses Flexor tenosynovitis of finger M65.9 Dyspnea R06.00 Obstructive sleep apnea G47.33 COPD (chronic obstructive pulmonary disease) J44.9 Diabetes mellitus, type II E11.9 CHF (congestive heart failure) I50.9 Heart failure chronicity: acute on chronic Heart failure type: unspecified Hypertension I10 Hyperlipidemia E78.5 Coronary artery disease I25.10 Anemia D64.9 (1) CHF (congestive heart failure) Heart failure chronicity: acute on chronic Heart failure type: unspecified Qualified Code(s): I50.9 - Heart failure, unspecified
[2020-12-30] MEDS ORDERED: ACETAMINOPHEN 325 MG TAB PO PRN (15:03)
[2020-12-30] MEDS ORDERED: GLUCOSE 10 TABS/TUBE PO PRN (15:03)
[2020-12-30] MEDS ORDERED: MAGNESIUM HYDROXIDE SUSP 30 ML UDC PO PRN (15:03)
[2020-12-30] MEDS ORDERED: CARBOHYDRATES FOR HYPOGLYCEMIA PO PRN (15:03)
[2020-12-30] MEDS ORDERED: DOCUSATE SODIUM 100 MG CAP PO PRN (15:03)
[2020-12-30] MEDS ORDERED: DOCUSATE SODIUM/SENNA 50/8.6MG TAB PO PRN (15:03)
[2020-12-30] MEDS ORDERED: POLYETHYLENE (MIRALAX) 17 GM PACK PO PRN (15:03)
[2020-12-30] MEDS ORDERED: GLUCOSE 40% GEL 15 GM TUBE PO PRN (15:03)
[2020-12-30] MEDS ORDERED: IPRATROPIUM BROMIDE/ALBUTEROL respimat INH INH SCH (15:03)
[2020-12-30] MEDS ORDERED: GLUCAGON FOR INJ 1 MG VIAL SQ PRN (15:03)
[2020-12-30] MEDS ORDERED: DEXTROSE 50% 50 ML SYRINGE IV PRN (15:03)
--- NOTE | 2020-12-30 16:02 | Orthopedic Consultation ---
Date of Service December 30, 2020 Assessment & Plan (1) Cellulitis of hand, right: 1. Ordered urgent MRI of right hand without contrast 2. NPO after midnight 3. Will be followed up by Dr. Stephens in AM. 4. After review of MRI and consultation, determination to proceed with I&D of right hand will be made. Possible surgury tomorrow AM. 5. Dr. Patten was present at bedside for history and physical examination and agree on the plan for treatment of mr. dominguez. (2) Abscess of hand, right: History of Present Illness Reason for Consultation: Right Hand Swelling and Pain Requesting Physician: . Attending Physician: Yovani Lorenzo MD Haim is a 65 y/o male who has had increasing swelling and pain in his right hand. He states that he has had swelling/pain in his right hand in the past however it has always resolved on its own. He states that this time it is more painful and persistent, lasting for more than a week. Describes no injury or trauma to the hand. Patient has a positive hx for CKD and diabetes. Allergies Allergy/AdvReac Type Severity Reaction Status Date / Time No Known Allergies Allergy Verified 12/08/20 11:29 Home Medications Medication Instructions Recorded Confirmed Type acetaminophen 325 mg tablet 650 mg PO Q4 PRN 11/29/20 12/30/20 History (Tylenol) amlodipine 10 mg tablet 10 mg PO DAILY 11/29/20 12/30/20 History atorvastatin 40 mg tablet 40 mg PO HS 11/29/20 12/30/20 History bumetanide 2 mg tablet 2 mg PO DAILY 11/29/20 12/30/20 History carvedilol 12.5 mg tablet 12.5 mg PO BIDM 11/29/20 12/30/20 History cholecalciferol (vitamin D3) 50 50 mcg PO DAILY 11/29/20 12/30/20 History mcg (2,000 unit) capsule (Vitamin D3) docusate sodium 100 mg capsule 100 mg PO BID PRN 11/29/20 12/30/20 History duloxetine 30 mg capsule,delayed 60 mg PO DAILY 11/29/20 12/30/20 History release ferrous sulfate 325 mg (65 mg 325 mg PO BID 11/29/20 12/30/20 History iron) tablet gabapentin 300 mg capsule 300 mg PO HS 11/29/20 12/30/20 History insulin aspart U-100 100 unit/mL 5 unit SUBCUT TIDM 11/29/20 12/30/20 History subcutaneous solution (Novolog U-100 Insulin aspart) insulin glargine 100 unit/mL 15 unit SUBCUT BID 11/29/20 12/30/20 History subcutaneous cartridge ipratropium 20 mcg-albuterol 100 1 puff INHALATION QID 11/29/20 12/30/20 History mcg/actuation mist for inhalation magnesium hydroxide 400 mg/5 mL 30 ml PO DAILY PRN 11/29/20 12/30/20 History oral suspension (Milk of Magnesia) montelukast 10 mg tablet 10 mg PO HS 11/29/20 12/30/20 History (Singulair) pantoprazole 40 mg tablet,delayed 40 mg PO DAILY 11/29/20 12/30/20 History release (Protonix) polyethylene glycol 3350 17 gram 17 g PO DAILY PRN 11/29/20 12/30/20 History oral powder packet (Miralax) potassium chloride 20 mEq 20 meq PO DAILY 11/29/20 12/30/20 History tablet,extended release sennosides 8.6 mg-docusate sodium 1 tab-cap PO .QLUNCH PRN 11/29/20 12/30/20 H istory 50 mg tablet (Senokot-S) sertraline 100 mg tablet 100 mg PO DAILY 11/29/20 12/30/20 History tamsulosin 0.4 mg capsule 0.8 mg PO DAILY 11/29/20 12/30/20 History umeclidinium 62.5 mcg-vilanterol 1 inh INHALATION DAILY 11/29/20 12/30/20 History 25 mcg/actuation powdr for inhalation (Anoro Ellipta) lisinopril 10 mg tablet 10 mg PO QAM #30 tab 12/21/20 12/30/20 Rx Past Med/Surg History Medical History CHF (congestive heart failure) Coronary artery disease Depression Diabetes mellitus, type II Hyperlipidemia Hypertension Morbid obesity FRANCIS (obstructive sleep apnea) Pneumonia due to COVID-19 virus Venous insufficiency Surgical History H/O knee surgery Family History Other Throat cancer Social History Smoking Status: Never smoker Hx Alcohol Use: Yes Alcohol type: beer Hx Substance Use: No Preferred Language: [place]ibian Communication Ability: Effective Hot Box Operator Required: No Beliefs That Will Affect Care: None marital status: Single Current Living Situation: Rehab How many Children do You have: 0 Feels Safe at Home: Yes Assistive Devices: Oxygen - Continuous Review of Systems All systems reviewed & are unremarkable except as noted in HPI & below. Physical Exam Swelling and erythema on dorsal aspect of right hand. There is a an area with an ulceration indicative of a possible abscess. He is able to flex and extend his fingers, however minimal ROM with significant pain. He has good capillary refill. Pain localized with palpation over the dorsal aspect of hand. Mild pain to palpation over the palmar side. Constitutional WD/WN, vitals as above Eyes PERRL, conjunctivae normal, anicteric sclerae ENMT external ear and nose normal, oropharynx normal Neck trachea midline, no thyromegaly Respiratory normal respiratory effort Cardiovascular RRR, no murmur, no edema Gastrointestinal (Abdomen) normal bowel sounds, soft, nontender, no hepatosplenomegaly Psychiatric A+Ox3, euthymic affect Results & Data Results & Data Laboratory Results . Diagnostic Findings Xrays show some soft tissue swelling, but are otherwise negative . PG Care Time/CCT Total # of Minutes Spent Total Time Spent with Patient: Total time spent is greater than 50% in coordination of care (as documented) at patient's floor/unit and/or counseling patient: Coding Level of Care Code 03570 Inpt Consult Level 4 Diagnoses Cellulitis of hand, right L03.113 Abscess of hand, right L02.511
--- NOTE | 2020-12-30 16:27 | Electrocardiogram Report ---
Test Reason : Blood Pressure : / mmHG Vent. Rate : 075 BPM Atrial Rate : 075 BPM P-R Int : 168 ms QRS Dur : 150 ms QT Int : 416 ms P-R-T Axes : 027 -46 009 degrees QTc Int : 464 ms Normal sinus rhythm Right bundle branch block Left anterior fascicular block Bifascicular block Abnormal ECG When compared with ECG of 20-DEC-2020 14:21, No significant change was found Confirmed by Pastor Haddad ([id number]) on 12/30/2020 4:27:41 PM Referred By: [facility] Confirmed By:Pastor Haddad
[2020-12-30] MEDS ORDERED: INSULIN ASPART PER UNIT SQ SCH (17:00)
[2020-12-30] MEDS: FERROUS SULFATE 325 MG TAB PO SCH (17:04)
[2020-12-30] MEDS: carvediloL 12.5 MG TAB PO SCH (17:05)
[2020-12-30] MEDS: HEPARIN SOD 5,000 UNIT/0.5 ML VIAL SQ SCH ×2 (17:05→22:25)
[2020-12-30] MEDS: CLINDAMYCIN 600 MG in DEXTROSE 5% 50 ML IV SCH (17:05)
[2020-12-30] MEDS: INSULIN ASPART 100 UNITS/ML 3 ML PEN SC SCH ×2 (18:14→22:27)
--- NOTE | 2020-12-30 18:42 | Progress Notes ---
DATE OF SERVICE: 12/30/2020 CHIEF COMPLAINT: Right hand infection. HISTORY OF PRESENT ILLNESS: A 65-year-old right hand dominant gentleman who presented and admitted w ith right hand infection, cellulitis and abscess. This has been going on for the past week. He is a dmitted by the medicine service. OBJECTIVE: VITAL SIGNS: Temperature 36.6. Vital signs are stable. PHYSICAL EXAMINATION: Physical exam of the right hand reveals diffuse swelling of his entire hand. He has obviously got some fluctuance over the dorsal side of his hand with a little bit of a pimple-a ppearing area over the dorsum. He has got diffuse swelling. There is no real tenderness on the flex or side, mostly on the dorsal side. He has got limited motion. He is neurologically intact. X-RAYS: X-rays of the wrist and hand were reviewed. It shows diffuse soft tissue swelling. He has got advanced degenerative changes of his wrist, which are chronic. LABORATORIES: Labs were reviewed. His white cell count is elevated at 13.64. Sed rate is elevated at 72 and CRP is elevated at 11.20. ASSESSMENT: A 65-year-old gentleman with multiple medical comorbidities with right hand infection. It does look like he has likely got an abscess on the back of his hand. PLAN: I aspirated this today. We got a little bit of pus out of there. We sent it off for stat Gra m stain, aerobic and anaerobic culture. This is something that is likely going to require a formal i rrigation and debridement. We will keep him n.p.o. after midnight and plan on washing this out tomor row. Continue IV antibiotics. He will probably need a 2-4 week period of IV antibiotics. Informed consent was obtained. Job ID: [id number]
--- NOTE | 2020-12-30 19:29 | Pharmacy Report ---
Pharmacy Abx Dose Short Note - Date of Service December 30, 2020 - Assessment & Plan Assessment 65 year old M receiving IV Vancomycin and Clindamycin (not a consult) for treatment of R hand cellulitis Day # 1 of antimicrobial therapy. * Patient received Vancomycin 2750mg (~18mg/kg) IV x 1 as a loading dose in the ED * Renal function appears at baseline. Estimated pharmacokinetic parameters: * Ke ~0.086/hr, T1/2 ~8 hrs Plan Vancomycin * Initiate Vancomycin 2000mg (~13mg/kg) IV q10 as maintenance regimen * Goal trough level for cellulitis : ~15 mcg/mL * Trough level ordered for: 01/01/21 @ 0130 * Patient is morbidly obese and is at risk for Vancomycin drug accumulation, therefore need to dose Vancomycin conservatively and monitor closely. Daptomycin may be better option in this patient. Pharmacy will continue to follow and will adjust dose/frequency as necessary. Thank you.
[2020-12-30] MEDS: ATORVASTATIN 40 MG TAB PO SCH (19:57)
[2020-12-30] MEDS: MONTELUKAST SODIUM 10 MG TABLET PO SCH (19:57)
[2020-12-30] MEDS: Albuterol HFA 8 GM Inhaler (Combivent Respimat P&T Subs) INH SCH (20:13)
[2020-12-30] MEDS: Ipratropium HFA Inhaler (Combivent Respimat P&T Subs) INH SCH (20:13)
[2020-12-30] MEDS ORDERED: GABAPENTIN 300 MG CAP PO SCH (21:00)
[2020-12-30] MEDS: VANCOMYCIN HCL 2,000 MG in SODIUM CHLORIDE 0.9% 500 ML IV SCH (22:22)
[2020-12-30] MEDS: INSULIN GLARGINE SOLOSTAR 100 UNITS/ML 3 ML PEN SC SCH (22:28)
[2020-12-31] MEDS: CLINDAMYCIN 600 MG in DEXTROSE 5% 50 ML IV SCH ×4 (00:07→23:46)
[2020-12-31] MEDS ORDERED: Nursing to Pharmacy Communication SCH ×2 (00:30→11:15)
[2020-12-31] MEDS: HEPARIN SOD 5,000 UNIT/0.5 ML VIAL SQ SCH ×3 (01:20→22:49)
[2020-12-31] MEDS ORDERED: INSULIN ASPART 100 UNITS/ML 3 ML PEN SC SCH (06:00)
[2020-12-31 06:30] LABS: Creatinine Clr Calc Pharmacy 101.6 ml/min; Est GFR (African American) 78.9 ml/min; Est GFR (Non-African American) 68.1 ml/min
[2020-12-31] MEDS: VANCOMYCIN HCL 2,000 MG in SODIUM CHLORIDE 0.9% 500 ML IV SCH (06:37)
[2020-12-31] MEDS ORDERED: MIDAZOLAM HCL 1 MG/ML 2ML VIAL IV ONE (07:37)
[2020-12-31] MEDS ORDERED: DEXAMETHASONE SOD INJ 4 MG/ML VIAL IV ONE (07:37)
[2020-12-31] MEDS ORDERED: PROPOFOL IV EMULSION 10 MG/ML 20 ML VIAL IV ONE (07:37)
[2020-12-31] MEDS ORDERED: LIDOCAINE 2% 2 ML VIAL/AMP(20MG/ML) INFIL ONE (07:37)
[2020-12-31] MEDS ORDERED: ONDANSETRON 2 MG/ML IV ONE (07:37)
[2020-12-31] MEDS: Albuterol HFA 8 GM Inhaler (Combivent Respimat P&T Subs) INH SCH ×4 (08:01→19:13)
[2020-12-31] MEDS: Ipratropium HFA Inhaler (Combivent Respimat P&T Subs) INH SCH ×4 (08:02→19:14)
--- NOTE | 2020-12-31 08:03 | History & Physical Bridge Note ---
Date of Service December 31, 2020 History & Physical Bridge Note I have examined the patient, reviewed the History & Physical and in the interval since the performance of the History & Physical I have noted the following changes of clinical significance: no changes noted
--- NOTE | 2020-12-31 08:35 | Anesthesiology Consultation ---
Date of Service December 31, 2020 Assessment & Plan Chart Review Chart Review: Acceptable Risk for Surgery Consults Requested none History Surgery Operation Date: 12/31/20 09:15 Proposed Procedures p Incision and Drainage of Right Hand - Jarod Stephens MD Height/Weight Height: 6 ft 1 in Weight: 152.3 kg Allergies Allergy/AdvReac Type Severity Reaction Status Date / Time No Known Allergies Allergy Verified 12/08/20 11:29 Medications Home Medications Medication Instructions Recorded Confirmed Last Taken acetaminophen 325 mg tablet 650 mg PO Q4 PRN 11/29/20 12/30/20 Unknown (Tylenol) amlodipine 10 mg tablet 10 mg PO DAILY 11/29/20 12/30/20 Unknown atorvastatin 40 mg tablet 40 mg PO HS 11/29/20 12/30/20 Unknown bumetanide 2 mg tablet 2 mg PO DAILY 11/29/20 12/30/20 Unknown carvedilol 12.5 mg tablet 12.5 mg PO BIDM 11/29/20 12/30/20 Unknown cholecalciferol (vitamin D3) 50 50 mcg PO DAILY 11/29/20 12/30/20 Unknown mcg (2,000 unit) capsule (Vitamin D3) docusate sodium 100 mg capsule 100 mg PO BID PRN 11/29/20 12/30/20 Unknown duloxetine 30 mg capsule,delayed 60 mg PO DAILY 11/29/20 12/30/20 Unknown release ferrous sulfate 325 mg (65 mg 325 mg PO BID 11/29/20 12/30/20 Unknown iron) tablet gabapentin 300 mg capsule 300 mg PO HS 11/29/20 12/30/20 Unknown insulin aspart U-100 100 unit/mL 5 unit SUBCUT TIDM 11/29/20 12/30/20 Unknown subcutaneous solution (Novolog U-100 Insulin aspart) insulin glargine 100 unit/mL 15 unit SUBCUT BID 11/29/20 12/30/20 Unknown subcutaneous cartridge ipratropium 20 mcg-albuterol 100 1 puff INHALATION QID 11/29/20 12/30/20 Unknown mcg/actuation mist for inhalation magnesium hydroxide 400 mg/5 mL 30 ml PO DAILY PRN 11/29/20 12/30/20 Unknown oral suspension (Milk of Magnesia) montelukast 10 mg tablet 10 mg PO HS 11/29/20 12/30/20 Unknown (Singulair) pantoprazole 40 mg tablet,delayed 40 mg PO DAILY 11/29/20 12/30/20 Unknown release (Protonix) polyethylene glycol 3350 17 gram 17 g PO DAILY PRN 11/29/20 12/30/20 Unknown oral powder packet (Miralax) potassium chloride 20 mEq 20 meq PO DAILY 11/29/20 12/30/20 Unknown tablet,extended release sennosides 8.6 mg-docusate sodium 1 tab-cap PO .QLUNCH PRN 11/29/20 12/30/20 Unknown 50 mg tablet (Senokot-S) sertraline 100 mg tablet 100 mg PO DAILY 11/29/20 12/30/20 Unknown tamsulosin 0.4 mg capsule 0.8 mg PO DAILY 11/29/20 12/30/20 Unknown umeclidinium 62.5 mcg-vilanterol 1 inh INHALATION DAILY 11/29/20 12/30/20 Unknown 25 mcg/actuation powdr for inhalation (Anoro Ellipta) lisinopril 10 mg tablet 10 mg PO QAM #30 tab 12/21/20 12/30/20 Unknown Active Medications Generic Name Dose Route Start Last Admin Trade Name Freq PRN Reason Stop Dose Admin Acetaminophen 650 mg 12/30/20 15:03 12/30/20 22:24 Acetaminophen 325 Mg Tab PO 01/29/21 15:02 650 mg Q4 PRN Administration PAIN , SCALE 1-3 Albuterol 1 puffs 12/30/20 19:00 12/31/20 08:01 Albuterol Hfa 8 Gm Inhaler (Combivent Respimat P&T Subs) INH 01/29/21 18:59 Not Given QIDR ZOHAIB Atorvastatin Calcium 40 mg 12/30/20 21:00 12/30/20 19:57 Atorvastatin 40 Mg Tab PO 01/29/21 20:59 40 mg HS ZOHAIB Administration Carvedilol 12.5 mg 12/30/20 17:00 12/30/20 17:05 Carvedilol 12.5 Mg Tab PO 01/29/21 16:59 12.5 mg BIDM ZOHAIB Administration Ferrous Sulfate 325 mg 12/30/20 17:00 12/30/20 17:04 Ferrous Sulfate 325 Mg Tab PO 01/29/21 16:59 325 mg BIDM ZOHAIB Administration Gabapentin 300 mg 12/30/20 21:00 12/30/20 19:57 Gabapentin 300 Mg Cap PO 01/29/21 20:59 300 mg HS ZOHAIB Administration Heparin Sodium (Porcine) 7,500 units 12/30/20 15:03 12/31/20 01:20 Heparin Sod 5,000 Unit/0.5 Ml Vial SQ 01/29/21 15:02 Not Given Q8 ZOHAIB Clindamycin Phosphate 600 mg/ 54 mls @ 100 mls/hr 12/30/20 16:15 12/31/20 01:21 Dextrose IV 01/01/21 16:14 Infused Q8H ZOHAIB Infusion Protocol Vancomycin HCl 2,000 mg/ 540 mls @ 200 mls/hr 12/30/20 20:00 12/31/20 06:37 Sodium Chloride IV 01/06/21 19:59 200 mls/hr Q10H ZOHAIB Administration Insulin Aspart 0 units 12/31/20 06:00 12/31/20 06:38 Insulin Aspart 100 Units/Ml 3 Ml Pen SC 01/29/21 16:29 Not Given Q6 ZOHAIB Insulin Glargine 15 units 12/30/20 21:00 12/30/20 22:28 Insulin Glargine Solostar 100 Units/Ml 3 Ml Pen SC 01/29/21 20:59 15 units BID ZOHAIB Administration Ipratropium [place] 1 puffs 12/30/20 19:00 12/31/20 08:02 Ipratropium Hfa Inhaler (Combivent Respimat P&T Subs) INH 01/29/21 18:59 Not Given QIDR ZOHAIB Montelukast Sodium 10 mg 12/30/20 21:00 12/30/20 19:57 Montelukast Sodium 10 Mg Tablet PO 01/29/21 20:59 10 mg HS ZOHAIB Administration NPO Date Last Intake of Fluids: 12/30/20 Time Last Intake of Fluids: 22:00 Date Last Intake of Solids: 12/30/20 Time Last Intake of Solids: 22:00 Past Medical History Medical History CHF (congestive heart failure) Coronary artery disease Depression Diabetes mellitus, type II Hyperlipidemia Hypertension Morbid obesity FRANCIS (obstructive sleep apnea) Pneumonia due to COVID-19 virus Venous insufficiency Past Family History Family History Other Throat cancer Past Surgical History Surgical History H/O knee surgery Social History Smoking Status: Never smoker Hx Alcohol Use: Yes Alcohol type: beer alcohol intake frequency: a few times a month Hx Substance Use: No substance use type: does not use Physical Exam Vital Signs Last Vital Signs Temp 36.6 C 12/31/20 07:24 Pulse 68 12/31/20 07:24 Resp 18 12/31/20 07:24 BP 137/69 12/31/20 07:24 Pulse Ox 92 12/31/20 07:24 Testing Laboratory Results 12/30/20 10:00 12/31/20 05:57 Urine Color Yellow 12/30/20 11:35 Urine Appearance Clear (Clear) 12/30/20 11:35 Urine pH 5.0 (4.5-7.5) 12/30/20 11:35 Ur Specific [place] 1.009 (1.000-1.030) 12/30/20 11:35 Urine Protein Negative (Negative) 12/30/20 11:35 Urine Glucose (UA) Negative (Negative) 12/30/20 11:35 Urine Ketones Negative (Negative) 12/30/20 11:35 Urine Nitrite Negative (Negative) 12/30/20 11:35 Ur Leukocyte Esterase Negative (Negative) 12/30/20 11:35 12/30/20 18:05 Gram Stain - Final Hand,Right 12/31/20 12/30/20 06:28 21:04 POC Glucose 81 207 H
[2020-12-31] MEDS ORDERED: ONDANSETRON INJ 2 MG/ML 2 ML VIAL IV PRN ×2 (08:38→10:15)
[2020-12-31] MEDS ORDERED: ATROPINE SULFATE 0.1 MG/ML 10ML SYR IV PRN (08:38)
[2020-12-31] MEDS ORDERED: ePHEDrine sulfate 50 MG/ML AMP IV PRN (08:38)
[2020-12-31] MEDS ORDERED: HYDROmorphone INJ 2 MG/ML SYR/VIAL IV PRN (08:38)
--- NOTE | 2020-12-31 09:02 | Magnetic Resonance Report ---
MRI OF THE RIGHT HAND WITHOUT CONTRAST CLINICAL HISTORY: Hand Abscess. COMPARISON STUDY: Right hand radiographs December 30, 2020. TECHNIQUE: Utilizing a 1.5 Onelia magnet and dedicated coil, multiplanar, multiecho imaging of the rig ht hand was performed without intravenous contrast. FINDINGS: Note is made of severe degenerative changes within the right wrist with marked radiocarpal joint space narrowing. Marked scaphoid edema is noted. Although indeterminate, this is probably degen erative. There is increased fluid within the radiocarpal joint. The right wrist is suboptimally asses sed on this right hand MRI. There is diffuse soft tissue swelling of the right hand. Made of a 5.6 x 1.2 cm subcutaneous fluid collection of the dorsal aspect of the right hand overlying the right third metacarpophalangeal joint. This immediately overlies the extensor tendon. A portion of this collecti on extends toward the right fourth digit extensor tendon with increased fluid within the tendon sheat h. These findings suggest tenosynovitis. In addition, there is trace narrowing of the right third met acarpophalangeal joint. There is increased fluid within this joint which may communicate with the lar ita dorsal suspected abscess. There is abnormal marrow signal within the mid to distal aspect of the right third metacarpal as well as within the right third proximal phalanx. IMPRESSION: 1. 5.6 x 1.2 cm subcutaneous fluid collection of the dorsal aspect of the right hand overlying the ri ght third metacarpophalangeal joint. This is suggestive of an abscess. This may communicate with a nydia int effusion of the right third metacarpophalangeal joint which suggests septic arthritis with possib le associated osteomyelitis of the right third metacarpal and third proximal phalanx. Suspected assoc iated infectious tenosynovitis of the right third and fourth extensor tendon sheaths. Findings discus sed with Dr. Stephens at time of dictation. 2. Severe degenerative changes within the right wrist, as described above. ACT 112: Negative or not required by law. Electronically signed by: Norberto Oliver M.D. 12/31/2020 9:00 AM
[2020-12-31] MEDS ORDERED: PHENYLEPHRINE 100MCG/ML 5ML SYR IV ONE (09:03)
--- NOTE | 2020-12-31 09:21 | Operative Report ---
Post Operative Report Pre & Post Diagnosis Operation Date: 12/31/20 09:15 Pre-Op Diagnosis: Right dorsal hand abscess with third MCP joint septic arthritis. Post-Op Diagnosis: Right dorsal hand abscess with third MCP joint septic arthritis. I identified the patient and participated in the time-out.: Yes Procedure Operation Date: 12/31/20 09:15 Actual Procedures p Incision and Drainage of Right Dorsal HandAbscess with I&D of third MCP joint septic arthritis(Right) - Jarod Stephens MD Surgeon Jarod Stephens MD Mud Boss LYNSEY Clark Estimated Blood Loss 25 Findings Consistent with Post-Op Diagnosis Operative findings revealedExtensive abscess in the dorsal aspect of his hand. There did appear to be involvement of the third MCP joint. Fluids 600 cc Specimens Fluid sent for culture along with tissue sent for tissue culture. Anesthesia Type General Complications none Disposition Accompanied Patient To Recovery: No Indications Patient is a [id number] with multiple medical comorbidities who has had about a week and a half history of increasing right hand pain discomfort and swelling. She was mated for hand infection by the medicine service yesterday and we are consulted for evaluation. Clinical exam was consistent with a dorsal hand abscess. This is confirmed by MRI and also appeared to involve the third MCP joint with septic arthritis may be some osteomyelitis. Patient decayed for formal irrigation debridement. Description of Procedure The patient was taken to the operating, identified, and placed on the operating table supine position. All contractors were properly padded.General anesthetic was employed by anesthesia team. A right upper extremity tourniquet was placed. The right hand was then prepped and draped in usual sterile fashion. The right arm was elevated but not exsanguinated. A tourniquet was placed at 250 mmHg. A dorsal approach to the hand was then performed through aLongitudinal incision of the dorsal hand and extending in a 45 degree angle over the MP joint area.Sharp dissection was got through subcutaneous tissues directly down to the abscess. There was a large abscess with gross pus. I extended the entire length of the hand in order to include the whole abscess. Fluid was sent off for culture along with some tissue was sent off for tissue culture.This was dorsal to the extensor tendons. I did then did enter the MP joint of the third digit which looked to have a hole in the capsule as it was. We were very careful not to disrupt the sagittal bands. I then used a curette to curette out the all the necrotic tissue out. Irrigated the wound extensively.Once complete with the debridement the tourniquet was let down for turn time 60 minutes. Hemostasis assured use electrocautery. The wounds once again irrigated and the skin was then closed with 3-0 nylon suture in a simple fashion. The hand was then cleaned and dried a sterile dressing both Xeroform, 4 x 4's, sterile cast padding, Mario bandage were applied. Patient was then brought out of general incision transferred to the recovery room in stable condition. Patient tolerated procedure well and there were no complications. Vitaliy Clark, my physician assistant technician, was present for the entire procedure. His assistance was required for proper patient positioning, prepping and draping, surgical exposure, retraction, closure of the wound and placement of the sterile bandage. I attest to the content of the Intraoperative Record and any orders documented therein. Any exceptions are noted below.
[2020-12-31] MEDS ORDERED: fentaNYL citrate 100 MCG/2 ML VIAL ONE (09:35)
[2020-12-31] MEDS: fentaNYL citrate 100 MCG/2 ML VIAL IV PRN ×2 (09:35→09:40)
[2020-12-31] MEDS ORDERED: bisacodyL 10 MG SUPP PR PRN (10:15)
[2020-12-31] MEDS ORDERED: METOCLOPRAMIDE HCL INJ 5 MG/ML 2 ML VIAL IV PRN (10:15)
[2020-12-31] MEDS ORDERED: MAGNESIUM HYDROXIDE SUSP 30 ML UDC PO PRN (10:15)
[2020-12-31] MEDS ORDERED: NALOXONE HCL 0.4 MG/1 ML VIAL/CARP IV PRN (10:15)
[2020-12-31] MEDS: lisinopril 10 MG TAB PO SCH (10:20)
[2020-12-31] MEDS: CHOLECALCIFEROL 1,000 UNITS 25 MCG TAB PO SCH (10:20)
[2020-12-31] MEDS: BUMETANIDE 1 MG TAB PO SCH (10:20)
[2020-12-31] MEDS: PANTOprazole 40 MG TAB PO SCH (10:21)
[2020-12-31] MEDS: SODIUM CHLORIDE 0.9% 1000ML 1,000 ML IV SCH ×2 (10:21→20:45)
[2020-12-31] MEDS: SERTRALINE HCL 100 MG TABLET PO SCH (10:21)
[2020-12-31] MEDS: amLODIPine BESYLATE 5 MG TAB PO SCH (10:21)
[2020-12-31] MEDS: TAMSULOSIN HCL 0.4 MG CAP PO SCH (10:21)
[2020-12-31] MEDS: FERROUS SULFATE 325 MG TAB PO SCH ×2 (10:21→17:36)
[2020-12-31] MEDS: DULoxetine HCL 60 MG CAP PO SCH (10:21)
[2020-12-31] MEDS: POTASSIUM CHLORIDE CRTAB 20 MEQ TABCR PO SCH (10:21)
[2020-12-31] MEDS: carvediloL 12.5 MG TAB PO SCH ×2 (10:21→17:36)
[2020-12-31] MEDS: INSULIN GLARGINE SOLOSTAR 100 UNITS/ML 3 ML PEN SC SCH ×2 (10:22→22:56)
[2020-12-31] MEDS: UMECLIDINIUM/VILANTEROL 62.5/25MCG 7 PUFFS/INHALER INH SCH (10:23)
--- NOTE | 2020-12-31 10:48 | Anesthesiology Progress Note ---
Date of Service December 31, 2020 Anesthesia Post Procedure Vital Signs Vital Signs: Temp Pulse Pulse Pulse Resp BP BP 12/31/20 10:44 78 18 12/31/20 09:55 36.5 C 65 14 141/76 H 12/31/20 09:45 66 15 148/68 H 12/31/20 09:35 69 15 136/68 12/31/20 09:25 57 L 14 97/71 L 12/31/20 09:18 36.6 C 54 L 16 103/59 L 12/31/20 07:24 36.6 C 68 18 137/69 12/30/20 22:19 36.4 C L 68 18 164/73 H 12/30/20 20:13 71 16 12/30/20 14:45 36.6 C 69 20 151/76 H 12/30/20 14:01 61 20 180/89 H 12/30/20 12:03 66 20 165/93 H 12/30/20 12:02 66 20 165/93 H 12/30/20 11:31 76 20 124/92 Pulse Ox 12/31/20 10:44 90 12/31/20 09:55 97 12/31/20 09:45 100 12/31/20 09:35 95 12/31/20 09:25 94 12/31/20 09:18 94 12/31/20 07:24 92 12/30/20 22:19 90 12/30/20 20:13 91 12/30/20 14:45 94 12/30/20 14:01 12/30/20 12:03 100 12/30/20 12:02 98 12/30/20 11:31 97 Pain Intensity Right Hand: Pain Intensity: 6 Transfer of Care Handoff Completed per policy Notes Mental Status: alert / awake / arousable and participated in evaluation Patient Amnestic to Procedure: Yes Nausea / Vomiting: adequately controlled Pain: adequately controlled Airway Patency, RR, SpO2: stable & adequate BP & HR: stable & adequate Hydration State: stable & adequate Anesthetic Complications: no major complications apparent
[2020-12-31] MEDS: MoRPHine SULFATE 4 MG/ML 1 ML CARP\\VIAL IV PRN ×2 (11:25→15:12)
--- NOTE | 2020-12-31 11:32 | Hospitalist Progress Note ---
Date of Service December 31, 2020 Assessment & Plan (1) Abscess of hand, right: (2) Septic arthritis of hand, right: Plan: -POD#0 I&D right dorsal hand abscess and third MCP joint septic arthritis by Dr. Stephens -currently on IV Vanco and IV Clinda (day #2), de-escalate pending culture results (3) Chronic respiratory failure with hypoxia: (4) COPD (chronic obstructive pulmonary disease): Plan: -saturating well on chronic 2L oxygen -conitnue home inhalers (5) History of COVID-19: Plan: -received aggressive treatment in October 2020 -continues to test positive, no acute issues (6) Chronic diastolic CHF (congestive heart failure): Plan: -appears euvolemic, continue home diuretics (7) Anemia: Plan: -chronic, hgb 9.3 12/30 (at baseline) (8) Diabetes mellitus, type II: Plan: -hgb a1c 7.1 11/2020 -blood sugars controlled -Lantus and Novolog (9) Hypertension: Plan: -BP controlled, continue Lisinopril (10) DVT prophylaxis: Plan: -SQ Heparin (11) Discharge planning issues: Plan: -return to [facility] once medically stable Admission and Anticipated Discharge Date Admission Date: December 30, 2020 Supervising Physician Co-Signing Physician Notes I have seen and examined the patient and have discussed the case with the provider above. I agree with the assessment and plan as stated. 65 yo M presented with R hand cellulitis and is s/p I&D by Dr. Stephens this morning. He is having severe pain in his hand to the point that he is shaking and reporting feeling cold. He received morphine 3 mg IV a couple of hours ago but this isn't helping-will give dilaudid one dose now and change to dilaudid PRN with scheduled tylenol in the background. Physical exam as above. Right hand is casted and RUE NVI. Pain is limiting patient cooperation with exam and questi oning. Cont supportive care and plan as above. DO Kyrie Subjective 65 year old male with PMH COPD, DM type II, chronic hypoxic resp failure on 2L O2, HTN, COVID 19 infection 10/2020. Recently admitted to [facility] 11/29 - 12/21 for acute hypoxic resp failure due to CHF in the setting of prior COVID 19 infection. Discharged to [facility]. Presented to ED 12/30 with red hand pain and swelling. Right hand MRI showed 5.6 x 1.2 cm subcutaneous fluid collection of the dorsal aspect of the right hand overlying the right third metacarpophalangeal joint. This is suggestive of an abscess. This may communicate with a joint effusion of the right third metacarpophalangeal joint which suggests septic arthritis with possible associated osteomyelitis of the right third metacarpal and third proximal phalanx. Suspected associated infectious tenosynovitis of the right third and fourth extensor tendon sheaths. Patient seen and examined. Just returned from OR for I&D of right dorsal hand abscess and third MCP joint septic arthritis by Dr. Stephens. Reporting right hand pain post operatively. VSS. No chest pain or shortness of breath. Denies abdominal pain and nausea. Review of Systems Review of Systems: All systems were reviewed and negative except as indicated in HPI above. Physical Exam Constitutional: WD/WN, vitals as above + obese Respiratory: normal respiratory effort; no respiratory distress Auscultation: + diminished lung sounds Cardiovascular: Rate/Rhythm: regular rate and regular rhythm Vessels: normal peripheral pulses Extremities: no edema Gastrointestinal (Abdomen): Inspection/Auscultation: normal bowel sounds Percussion/Palpation: abdomen soft; abdomen nontender Skin: s/p right hand surgery, surgical dressing dry and intact, + swelling of right fingers, CSM checks intact to right hand Psychiatric: Orientation: alert, oriented to person and oriented to place; + not oriented to time (re-orients easily) Insight: + limited insight Results & Data Results & Data ([facility]) Vital Signs (Past 12 Hours) Vital Signs Temp Pulse Pulse Resp BP Pulse Ox 12/31/20 10:44 78 18 90 12/31/20 10:40 36.4 C L 71 16 145/84 H 94 12/31/20 09:55 36.5 C 65 14 141/76 H 97 12/31/20 09:45 66 15 148/68 H 100 12/31/20 09:35 69 15 136/68 95 12/31/20 09:25 57 L 14 97/71 L 94 12/31/20 09:18 36.6 C 54 L 16 103/59 L 94 12/31/20 07:24 36.6 C 68 18 137/69 92 Laboratory Results Short CBC 12/31/20 Range/Units 06:02 WBC 13.16 H (4.8-10.8) K/uL Hgb 8.2 L (14.0-18.0) g/dL Hct 26.1 L (42-52) % Plt Count 237 (130-400) K/uL BMP 12/31/20 12/31/20 05:57 06:02 Sodium 139 Potassium 3.9 Chloride 106 Carbon Dioxide 30 BUN 38 H Creatinine 1.14 1.16 Glucose 76 Calcium 9.6 Medications Administered Current Inpatient Medications Acetaminophen (Acetaminophen 500 Mg Tab) 1,000 mg PO Q8H ZOHAIB Stop: 01/30/21 21:59 Albuterol (Albuterol Hfa 8 Gm Inhaler (Combivent Respimat P&T Subs)) 1 puffs INH QIDR ZOHAIB Stop: 01/29/21 18:59 Last Admin: 12/31/20 19:13 Dose: 1 puffs Documented by: Amlodipine Besylate (Amlodipine Besylate 5 Mg Tab) 10 mg PO DAILY ZOHAIB Stop: 01/30/21 08:59 Last Admin: 12/31/20 10:21 Dose: 10 mg Documented by: Atorvastatin Calcium (Atorvastatin 40 Mg Tab) 40 mg PO HS ZOHAIB Stop: 01/29/21 20:59 Last Admin: 12/30/20 19:57 Dose: 40 mg Documented by: Bisacodyl (Bisacodyl 10 Mg Supp) 10 mg ND DAILY PRN PRN Reason: Constipation Stop: 01/30/21 10:14 Bumetanide (Bumetanide 1 Mg Tab) 2 mg PO DAILY ZOHAIB Stop: 01/30/21 08:59 Last Admin: 12/31/20 10:20 Dose: 2 mg Documented by: Carvedilol (Carvedilol 12.5 Mg Tab) 12.5 mg PO BIDM ZOHAIB Stop: 01/29/21 16:59 Last Admin: 12/31/20 17:36 Dose: 12.5 mg Documented by: Dextrose (Dextrose 50% 50 Ml Syringe) 25 - 50 ml IV UD PRN; Protocol PRN Reason: Hypoglycemia Protocol Stop: 01/29/21 15:02 Docusate Sodium (Docusate Sodium 100 Mg Cap) 100 mg PO BID PRN PRN Reason: Constipation Stop: 01/29/21 15:02 Docusate Sodium (Docusate Sodium 100 Mg Cap) 100 mg PO BID ZOHAIB Stop: 01/30/21 20:59 Duloxetine HCl (Duloxetine Hcl 60 Mg Cap) 60 mg PO DAILY ZOHAIB Stop: 01/30/21 08:59 Last Admin: 12/31/20 10:21 Dose: 60 mg Documented by: Ferrous Sulfate (Ferrous Sulfate 325 Mg Tab) 325 mg PO BIDM ZOHAIB Stop: 01/29/21 16:59 Last Admin: 12/31/20 17:36 Dose: 325 mg Documented by: Gabapentin (Gabapentin 300 Mg Cap) 300 mg PO TID ZOHAIB Stop: 01/30/21 13:59 Last Admin: 12/31/20 15:06 Dose: 300 mg Documented by: Glucagon (Glucagon For Inj 1 Mg Vial) 1 mg SQ UD PRN; Protocol PRN Reason: Hypoglycemia Protocol Stop: 01/29/21 15:02 Glucose (Glucose 10 Tabs/Tube) 4 - 8 tabs PO UD PRN; Protocol PRN Reason: Hypoglycemia Protocol Stop: 01/29/21 15:02 Glucose (Glucose 40% Gel 15 Gm Tube) 15 - 30 gm PO UD PRN; Protocol PRN Reason: Hypoglycemia Protocol Stop: 01/29/21 15:02 Heparin Sodium (Porcine) (Heparin Sod 5,000 Unit/0.5 Ml Vial) 7,500 units SQ Q8 ZOHAIB Stop: 01/29/21 15:02 Last Admin: 12/31/20 15:05 Dose: 7,500 units Documented by: Hydromorphone HCl (Hydromorphone Inj 0.5 Mg/0.5 Ml Syr) 0.5 mg IV Q2H PRN PRN Reason: Pain Stop: 01/14/21 17:59 Clindamycin Phosphate 600 mg/ (Dextrose) 54 mls @ 100 mls/hr IV Q8H ZOHAIB; Protocol Stop: 01/01/21 16:14 Last Infusion: 12/31/20 15:46 Dose: Infused Documented by: Sodium Chloride (Nss 1000ml) 1,000 mls @ 100 mls/hr IV .Q10H ZOHAIB Stop: 01/01/21 06:00 Last Admin: 12/31/20 10:21 Dose: 100 mls/hr Documented by: Daptomycin 425 mg/ Syringe 8.5 mls @ 5 mls/min IV Q24H ZOHAIB; Protocol Stop: 01/07/21 15:59 Last Admin: 12/31/20 15:14 Dose: 5 mls/min Documented by: Insulin Aspart (Insulin Aspart 100 Units/Ml 3 Ml Pen) 0 units SC ACHS [facility] Stop: 01/30/21 05:59 Last Admin: 12/31/20 17:34 Dose: Not Given Documented by: Insulin Glargine (Insulin Glargine Solostar 100 Units/Ml 3 Ml Pen) 15 units SC BID [facility] Stop: 01/29/21 20:59 Last Admin: 12/31/20 10:22 Dose: 15 units Documented by: Ipratropium [place] (Ipratropium Hfa Inhaler (Combivent Respimat P&T Subs)) 1 puffs INH QIDR [facility] Stop: 01/29/21 18:59 Last Admin: 12/31/20 19:14 Dose: 1 puffs Documented by: Lisinopril (Lisinopril 10 Mg Tab) 10 mg PO QAM [facility] Stop: 01/30/21 08:59 Last Admin: 12/31/20 10:20 Dose: 10 mg Documented by: Magnesium Hydroxide (Magnesium Hydroxide Susp 30 Ml Udc) 30 ml PO DAILY PRN PRN Reason: Constipation Stop: 01/29/21 15:02 Magnesium Hydroxide (Magnesium Hydroxide Susp 30 Ml Udc) 30 ml PO Q6H PRN PRN Reason: Constipation Stop: 01/30/21 10:14 Metoclopramide HCl (Metoclopramide Hcl Inj 5 Mg/Ml 2 Ml Vial) 10 mg IV Q6H PRN PRN Reason: Nausea And Vomiting Stop: 01/30/21 10:14 Miscellaneous (Carbohydrates For Hypoglycemia ) 15 - 30 gm PO UD PRN PRN Reason: Hypoglycemia Protocol Stop: 01/29/21 15:02 Miscellaneous Information (Daptomycin Consult Active) 1 ea N/A UD PRN PRN Reason: Consult Stop: 01/30/21 12:14 Montelukast Sodium (Montelukast Sodium 10 Mg Tablet) 10 mg PO HS [facility] Stop: 01/29/21 20:59 Last Admin: 12/30/20 19:57 Dose: 10 mg Documented by: Multivitamins (Multivitamin Tab) 1 tab PO QAM [facility] Stop: 01/31/21 08:59 Naloxone HCl (Naloxone Hcl 0.4 Mg/1 Ml Vial/Carp) 0.1 mg IV Q5M PRN PRN Reason: Oversedation/Resp Depression Stop: 01/30/21 10:14 Ondansetron HCl (Ondansetron Inj 2 Mg/Ml 2 Ml Vial) 4 mg IV Q6H PRN PRN Reason: Nausea And Vomiting Stop: 01/30/21 10:14 Oxycodone HCl (Oxycodone Hcl Ir 5 Mg Tab (Immediate Release)) 5 mg PO Q6H PRN PRN Reason: Pain Stop: 01/14/21 11:07 Last Admin: 12/31/20 12:19 Dose: 5 mg Documented by: Pantoprazole Sodium (Pantoprazole 40 Mg Tab) 40 mg PO DAILY ZOHAIB Stop: 01/30/21 08:59 Last Admin: 12/31/20 10:21 Dose: 40 mg Documented by: Polyethylene Glycol (Polyethylene (Miralax) 17 Gm Pack) 17 gm PO DAILY PRN PRN Reason: Constipation Stop: 01/29/21 15:02 Potassium Chloride (Potassium Chloride Crtab 20 Meq Tabcr) 20 meq PO DAILY ZOHAIB Stop: 01/30/21 08:59 Last Admin: 12/31/20 10:21 Dose: 20 meq Documented by: Senna/Docusate Sodium (Docusate Sodium/Senna 50/8.6mg Tab) 1 tab PO QDL PRN PRN Reason: Constipation Stop: 01/29/21 15:02 Sennosides (Senna 8.6 Mg Tab) 17.2 mg PO HS ZOHAIB Stop: 01/30/21 20:59 Sertraline HCl (Sertraline Hcl 100 Mg Tablet) 100 mg PO DAILY ZOHAIB Stop: 01/30/21 08:59 Last Admin: 12/31/20 10:21 Dose: 100 mg Documented by: Tamsulosin HCl (Tamsulosin Hcl 0.4 Mg Cap) 0.8 mg PO DAILY ZOHAIB Stop: 01/30/21 08:59 Last Admin: 12/31/20 10:21 Dose: 0.8 mg Documented by: Umeclidinium/Vilanterol (Umeclidinium/Vilanterol 62.5/25mcg 7 Puffs/Inhaler) 1 puffs INH DAILY ZOHAIB Stop: 01/30/21 08:59 Last Admin: 12/31/20 10:23 Dose: Not Given Documented by: Vitamin D (Cholecalciferol 1,000 Units 25 Mcg Tab) 2,000 units PO DAILY ZOHAIB Stop: 01/30/21 08:59 Last Admin: 12/31/20 10:20 Dose: 2,000 units Documented by:
[2020-12-31 11:36] LABS: BUN Creatinine Ratio 33.1 (10-20); Calcium 9.6 mg/dl (8.5-10.1); Creatinine Clr Calc Pharmacy 100.4 ml/min; Est GFR (African American) 77.2 ml/min; Est GFR (Non-African American) 66.7 ml/min; Potassium 3.9 mmol/L (3.5-5.1)
[2020-12-31 11:40] LABS: Hematocrit (blood only) 26.1 % (42-52); Hemoglobin 8.2 g/dL (14.0-18.0); Mean Corpuscular Hemoglobin 27.8 pg (25-34); Mean Corpuscular Hgb Conc 31.4 g/dL (32-36); Mean Corpuscular Volume 88.5 fL (80-100); Mean Platelet Volume 9.6 fL (7.4-10.4); Platelet Count 237 K/uL (130-400); RDW Coefficient of Variation 15.4 % (11.5-14.5); RDW Standard Deviation 50.2 fL (36.4-46.3); Red Blood Count 2.95 M/uL (4.7-6.1); White Blood Count 13.16 K/uL (4.8-10.8)
[2020-12-31] MEDS: oxyCODONE HCL IR 5 MG TAB (IMMEDIATE RELEASE) PO PRN (12:19)
[2020-12-31] MEDS: INSULIN ASPART 100 UNITS/ML 3 ML PEN SC SCH ×3 (12:28→20:46)
[2020-12-31] MEDS: GABAPENTIN 300 MG CAP PO SCH ×2 (15:06→19:47)
[2020-12-31] MEDS ORDERED: DAPTOmycin 425 MG in SYRINGE 0 ML IV SCH (16:00)
[2020-12-31] MEDS ORDERED: HYDROmorphone INJ 1 MG/ML SYRINGE IV STA (18:00)
[2020-12-31] MEDS: HYDROmorphone INJ 0.5 MG/0.5 ML SYR IV PRN (18:27)
[2020-12-31] MEDS: MONTELUKAST SODIUM 10 MG TABLET PO SCH (19:47)
[2020-12-31] MEDS: DOCUSATE SODIUM 100 MG CAP PO SCH (19:47)
[2020-12-31] MEDS: SENNA 8.6 MG TAB PO SCH (19:47)
[2020-12-31] MEDS: ACETAMINOPHEN 500 MG TAB PO SCH (22:48)
[2021-01-01] MEDS ORDERED: VANCOMYCIN TROUGH ONE (01:30)
[2021-01-01] MEDS: HYDROmorphone INJ 0.5 MG/0.5 ML SYR IV PRN ×4 (04:11→14:01)
[2021-01-01] MEDS: HEPARIN SOD 5,000 UNIT/0.5 ML VIAL SQ SCH (06:00)
[2021-01-01] MEDS: ACETAMINOPHEN 500 MG TAB PO SCH ×3 (06:00→21:04)
[2021-01-01 06:28] LABS: Hematocrit (blood only) 22.5 % (42-52); Hemoglobin 6.9 g/dL (14.0-18.0); Mean Corpuscular Hemoglobin 27.2 pg (25-34); Mean Corpuscular Hgb Conc 30.7 g/dL (32-36); Mean Corpuscular Volume 88.6 fL (80-100); Mean Platelet Volume 9.3 fL (7.4-10.4); Platelet Count 208 K/uL (130-400); RDW Coefficient of Variation 15.7 % (11.5-14.5); RDW Standard Deviation 51.1 fL (36.4-46.3); Red Blood Count 2.54 M/uL (4.7-6.1); White Blood Count 12.61 K/uL (4.8-10.8)
[2021-01-01 06:31] LABS: BUN Creatinine Ratio 28.4 (10-20); Calcium 8.7 mg/dl (8.5-10.1); Creatinine Clr Calc Pharmacy 88.9 ml/min; Est GFR (African American) 66.7 ml/min; Est GFR (Non-African American) 57.5 ml/min; Potassium 4.3 mmol/L (3.5-5.1)
[2021-01-01] MEDS: Ipratropium HFA Inhaler (Combivent Respimat P&T Subs) INH SCH ×4 (07:30→19:07)
[2021-01-01] MEDS: Albuterol HFA 8 GM Inhaler (Combivent Respimat P&T Subs) INH SCH ×4 (07:31→19:07)
[2021-01-01 07:57] LABS: Hemoglobin 6.9 g/dL (14.0-18.0)
[2021-01-01] MEDS: TAMSULOSIN HCL 0.4 MG CAP PO SCH (08:14)
[2021-01-01] MEDS: POTASSIUM CHLORIDE CRTAB 20 MEQ TABCR PO SCH (08:15)
[2021-01-01] MEDS: SERTRALINE HCL 100 MG TABLET PO SCH (08:15)
[2021-01-01] MEDS: lisinopril 10 MG TAB PO SCH (08:16)
[2021-01-01] MEDS: PANTOprazole 40 MG TAB PO SCH (08:16)
[2021-01-01] MEDS: GABAPENTIN 300 MG CAP PO SCH ×3 (08:17→20:28)
[2021-01-01] MEDS: DULoxetine HCL 60 MG CAP PO SCH (08:17)
[2021-01-01] MEDS: BUMETANIDE 1 MG TAB PO SCH (08:18)
[2021-01-01] MEDS: DOCUSATE SODIUM 100 MG CAP PO SCH ×2 (08:18→20:27)
[2021-01-01] MEDS: amLODIPine BESYLATE 5 MG TAB PO SCH (08:18)
[2021-01-01] MEDS: CHOLECALCIFEROL 1,000 UNITS 25 MCG TAB PO SCH (08:18)
[2021-01-01] MEDS: FERROUS SULFATE 325 MG TAB PO SCH ×2 (08:19→17:06)
[2021-01-01] MEDS: carvediloL 12.5 MG TAB PO SCH ×2 (08:19→17:01)
[2021-01-01] MEDS: CLINDAMYCIN 600 MG in DEXTROSE 5% 50 ML IV SCH (08:20)
[2021-01-01] MEDS: INSULIN ASPART 100 UNITS/ML 3 ML PEN SC SCH ×4 (09:32→21:01)
[2021-01-01] MEDS: UMECLIDINIUM/VILANTEROL 62.5/25MCG 7 PUFFS/INHALER INH SCH (09:33)
[2021-01-01] MEDS: MULTIVITAMIN TAB PO SCH (09:35)
[2021-01-01] MEDS: INSULIN GLARGINE SOLOSTAR 100 UNITS/ML 3 ML PEN SC SCH ×2 (10:10→21:02)
[2021-01-01] MEDS ORDERED: SODIUM CHLORIDE 0.9% 250 ML IV PRN (10:16)
--- NOTE | 2021-01-01 10:34 | Hospitalist Progress Note ---
Date of Service January 01, 2021 Assessment & Plan (1) Abscess of hand, right: (2) Septic arthritis of hand, right: Plan: -POD#1 I&D right dorsal hand abscess and third MCP joint septic arthritis by Dr. Stephens -currently on IV Dapto and IV Clinda, de-escalate pending culture results (3) Postoperative anemia: Plan: Patient reporting shortness of breath and lightheadedness, uncertain chronicity of this. Transfuse 1 unit pRBCs and recheck H/H after transfusion. (4) Chronic respiratory failure with hypoxia: Plan: chronically on oxygen supplementation and at his baseline. (5) COPD (chronic obstructive pulmonary disease): Plan: -saturating well on chronic 2L oxygen -continue home inhalers (6) History of COVID-19: Plan: -received aggressive treatment in October 2020 -continues to test positive, no acute issues (7) Chronic diastolic CHF (congestive heart failure): Plan: -appears euvolemic, continue home diuretics (8) Anemia: Plan: -chronic, hgb 9.3 12/30 (at baseline) (9) Diabetes mellitus, type II: Plan: -hgb a1c 7.1 11/2020 -blood sugars controlled -Lantus and Novolog (10) Hypertension: Plan: -BP controlled, continue Lisinopril (11) DVT prophylaxis: Plan: -SQ Heparin Admission and Anticipated Discharge Date Admission Date: December 30, 2020 Results & Data Results & Data ([facility]) Vital Signs (Past 12 Hours) Vital Signs Temp Pulse Pulse Resp BP Pulse Ox 01/01/21 07:33 70 18 94 01/01/21 07:30 36.7 C 68 18 120/68 96 01/01/21 04:25 36.7 C 77 18 136/70 94 12/31/20 22:58 37.4 C 73 20 136/74 93 Laboratory Results Short CBC 12/31/20 01/01/21 01/01/21 Range/Units 06:02 05:32 07:22 WBC 13.16 H 12.61 H (4.8-10.8) K/uL Hgb 8.2 L 6.9 L* 6.9 L* (14.0-18.0) g/dL Hct 26.1 L 22.5 L 22.0 L (42-52) % Plt Count 237 208 (130-400) K/uL BMP 07/24/21 07/25/21 06:02 05:32 Sodium 139 138 Potassium 3.9 4.3 Chloride 106 106 Carbon Dioxide 30 27 BUN 38 H 37 H Creatinine 1.16 1.31 Glucose 76 100 H Calcium 9.6 8.7 Medications Administered Current Inpatient Medications Acetaminophen (Acetaminophen 500 Mg Tab) 1,000 mg PO Q8H [facility] Stop: 01/30/21 21:59 Last Admin: 01/01/21 06:00 Dose: 1,000 mg Documented by: Albuterol (Albuterol Hfa 8 Gm Inhaler (Combivent Respimat P&T Subs)) 1 puffs INH QIDR [facility] Stop: 01/29/21 18:59 Last Admin: 01/01/21 07:31 Dose: 1 puffs Documented by: Amlodipine Besylate (Amlodipine Besylate 5 Mg Tab) 10 mg PO DAILY [facility] Stop: 01/30/21 08:59 Last Admin: 01/01/21 08:18 Dose: 10 mg Documented by: Atorvastatin Calcium (Atorvastatin 40 Mg Tab) 40 mg PO HS [facility] Stop: 01/29/21 20:59 Last Admin: 12/30/20 19:57 Dose: 40 mg Documented by: Bisacodyl (Bisacodyl 10 Mg Supp) 10 mg OR DAILY PRN PRN Reason: Constipation Stop: 01/30/21 10:14 Bumetanide (Bumetanide 1 Mg Tab) 2 mg PO DAILY [facility] Stop: 01/30/21 08:59 Last Admin: 01/01/21 08:18 Dose: 2 mg Documented by: Carvedilol (Carvedilol 12.5 Mg Tab) 12.5 mg PO BIDM [facility] Stop: 01/29/21 16:59 Last Admin: 01/01/21 08:19 Dose: 12.5 mg Documented by: Dextrose (Dextrose 50% 50 Ml Syringe) 25 - 50 ml IV UD PRN; Protocol PRN Reason: Hypoglycemia Protocol Stop: 01/29/21 15:02 Docusate Sodium (Docusate Sodium 100 Mg Cap) 100 mg PO BID PRN PRN Reason: Constipation Stop: 01/29/21 15:02 Docusate Sodium (Docusate Sodium 100 Mg Cap) 100 mg PO BID [facility] Stop: 01/30/21 20:59 Last Admin: 01/01/21 08:18 Dose: 100 mg Documented by: Duloxetine HCl (Duloxetine Hcl 60 Mg Cap) 60 mg PO DAILY [facility] Stop: 01/30/21 08:59 Last Admin: 01/01/21 08:17 Dose: 60 mg Documented by: Ferrous Sulfate (Ferrous Sulfate 325 Mg Tab) 325 mg PO BIDM [facility] Stop: 01/29/21 16:59 Last Admin: 01/01/21 08:19 Dose: 325 mg Documented by: Gabapentin (Gabapentin 300 Mg Cap) 300 mg PO TID [facility] Stop: 01/30/21 13:59 Last Admin: 01/01/21 08:17 Dose: 300 mg Documented by: Glucagon (Glucagon For Inj 1 Mg Vial) 1 mg SQ UD PRN; Protocol PRN Reason: Hypoglycemia Protocol Stop: 01/29/21 15:02 Glucose (Glucose 10 Tabs/Tube) 4 - 8 tabs PO UD PRN; Protocol PRN Reason: Hypoglycemia Protocol Stop: 01/29/21 15:02 Glucose (Glucose 40% Gel 15 Gm Tube) 15 - 30 gm PO UD PRN; Protocol PRN Reason: Hypoglycemia Protocol Stop: 01/29/21 15:02 Heparin Sodium (Porcine) (Heparin Sod 5,000 Unit/0.5 Ml Vial) 7,500 units SQ Q8 [facility] Stop: 01/29/21 15:02 Last Admin: 01/01/21 06:00 Dose: 7,500 units Documented by: Hydromorphone HCl (Hydromorphone Inj 0.5 Mg/0.5 Ml Syr) 0.5 mg IV Q2H PRN PRN Reason: Pain Stop: 01/14/21 17:59 Last Admin: 01/01/21 09:10 Dose: 0.5 mg Documented by: Clindamycin Phosphate 600 mg/ (Dextrose) 54 mls @ 100 mls/hr IV Q8H [facility]OHAIB; Protocol Stop: 01/01/21 16:14 Last Infusion: 01/01/21 08:53 Dose: Infused Documented by: Daptomycin 425 mg/ Syringe 8.5 mls @ 5 mls/min IV Q24H [facility]OHAIB; Protocol Stop: 01/07/21 15:59 Last Admin: 12/31/20 15:14 Dose: 5 mls/min Documented by: Sodium Chloride (Nss) 250 mls @ 15 mls/hr IV .[id number] PRN PRN Reason: For Transfusion Stop: 01/01/21 20:16 Insulin Aspart (Insulin Aspart 100 Units/Ml 3 Ml Pen) 0 units SC ACHS [facility] Stop: 01/30/21 05:59 Last Admin: 01/01/21 09:32 Dose: Not Given Documented by: Insulin Glargine (Insulin Glargine Solostar 100 Units/Ml 3 Ml Pen) 15 units SC BID [facility] Stop: 01/29/21 20:59 Last Admin: 01/01/21 10:10 Dose: Not Given Documented by: Ipratropium [place] (Ipratropium Hfa Inhaler (Combivent Respimat P&T Subs)) 1 puffs INH QIDR [facility] Stop: 01/29/21 18:59 Last Admin: 01/01/21 07:30 Dose: 1 puffs Documented by: Lisinopril (Lisinopril 10 Mg Tab) 10 mg PO QAM [facility] Stop: 01/30/21 08:59 Last Admin: 01/01/21 08:16 Dose: 10 mg Documented by: Magnesium Hydroxide (Magnesium Hydroxide Susp 30 Ml Udc) 30 ml PO DAILY PRN PRN Reason: Constipation Stop: 01/29/21 15:02 Magnesium Hydroxide (Magnesium Hydroxide Susp 30 Ml Udc) 30 ml PO Q6H PRN PRN Reason: Constipation Stop: 01/30/21 10:14 Metoclopramide HCl (Metoclopramide Hcl Inj 5 Mg/Ml 2 Ml Vial) 10 mg IV Q6H PRN PRN Reason: Nausea And Vomiting Stop: 01/30/21 10:14 Miscellaneous (Carbohydrates For Hypoglycemia ) 15 - 30 gm PO UD PRN PRN Reason: Hypoglycemia Protocol Stop: 01/29/21 15:02 Miscellaneous Information (Daptomycin Consult Active) 1 ea N/A UD PRN PRN Reason: Consult Stop: 01/30/21 12:14 Montelukast Sodium (Montelukast Sodium 10 Mg Tablet) 10 mg PO HS [facility] Stop: 01/29/21 20:59 Last Admin: 12/31/20 19:47 Dose: 10 mg Documented by: Multivitamins (Multivitamin Tab) 1 tab PO QAM [facility] Stop: 01/31/21 08:59 Last Admin: 01/01/21 09:35 Dose: Not Given Documented by: Naloxone HCl (Naloxone Hcl 0.4 Mg/1 Ml Vial/Carp) 0.1 mg IV Q5M PRN PRN Reason: Oversedation/Resp Depression Stop: 01/30/21 10:14 Ondansetron HCl (Ondansetron Inj 2 Mg/Ml 2 Ml Vial) 4 mg IV Q6H PRN PRN Reason: Nausea And Vomiting Stop: 01/30/21 10:14 Oxycodone HCl (Oxycodone Hcl Ir 5 Mg Tab (Immediate Release)) 5 mg PO Q6H PRN PRN Reason: Pain Stop: 01/14/21 11:07 Last Admin: 12/31/20 12:19 Dose: 5 mg Documented by: Pantoprazole Sodium (Pantoprazole 40 Mg Tab) 40 mg PO DAILY [facility] Stop: 01/30/21 08:59 Last Admin: 01/01/21 08:16 Dose: 40 mg Documented by: Polyethylene Glycol (Polyethylene (Miralax) 17 Gm Pack) 17 gm PO DAILY PRN PRN Reason: Constipation Stop: 01/29/21 15:02 Potassium Chloride (Potassium Chloride Crtab 20 Meq Tabcr) 20 meq PO DAILY [facility] Stop: 01/30/21 08:59 Last Admin: 01/01/21 08:15 Dose: 20 meq Documented by: Senna/Docusate Sodium (Docusate Sodium/Senna 50/8.6mg Tab) 1 tab PO QDL PRN PRN Reason: Constipation Stop: 01/29/21 15:02 Sennosides (Senna 8.6 Mg Tab) 17.2 mg PO HS [facility] Stop: 01/30/21 20:59 Last Admin: 12/31/20 19:47 Dose: 17.2 mg Documented by: Sertraline HCl (Sertraline Hcl 100 Mg Tablet) 100 mg PO DAILY [facility] Stop: 01/30/21 08:59 Last Admin: 01/01/21 08:15 Dose: 100 mg Documented by: Tamsulosin HCl (Tamsulosin Hcl 0.4 Mg Cap) 0.8 mg PO DAILY [facility] Stop: 01/30/21 08:59 Last Admin: 01/01/21 08:14 Dose: 0.8 mg Documented by: Umeclidinium/Vilanterol (Umeclidinium/Vilanterol 62.5/25mcg 7 Puffs/Inhaler) 1 puffs INH DAILY [facility] Stop: 01/30/21 08:59 Last Admin: 01/01/21 09:33 Dose: 1 puffs Documented by: Vitamin D (Cholecalciferol 1,000 Units 25 Mcg Tab) 2,000 units PO DAILY [facility] Stop: 01/30/21 08:59 Last Admin: 01/01/21 08:18 Dose: 2,000 units Documented by:
--- NOTE | 2021-01-01 11:10 | Progress Notes ---
DATE OF SERVICE: 01/01/2021 SUBJECTIVE: A 65-year-old gentleman with multiple medical comorbidities, now postop day 1 from I and D of a pretty significant right hand infection with underlying septic arthritis and question of oste omyelitis. He is doing okay. His hand is sore. No new complaints. OBJECTIVE: VITAL SIGNS: Temperature 36.7. Vital signs are stable. PHYSICAL EXAMINATION: GENERAL: He is a pleasant, poorly conditioned male. He is sitting up in bed, looks reasonably comfo rtable. EXTREMITIES: Examination of the right hand reveals the dressing to be in place. His fingers show so me moderate swelling, but certainly no worse. He can slightly flex and extend his fingers, but it is painful. He is neurologically intact. LABORATORY DATA: White cell count 12.61. Hemoglobin 6.9. Electrolytes are stable. Culture results; cultures are also growing out gram-positive cocci. It looks like it is methicillin- resistant staph. ASSESSMENT: A 65-year-old gentleman with multiple medical comorbidities postoperative day 1 from inc ision and drainage of a pretty severe right hand abscess with underlying septic arthritis and questio n of osteomyelitis. Cultures are all show gram-positive cocci and it looks like based on the sensiti vities, it is methicillin-resistant Staphylococcus aureus. PLAN: At this point, he is going to need probably 4 weeks of IV antibiotics followed by some oral an tibiotics after that. I think he is going to need a PICC line for these antibiotics. He can probabl y be switched to MRSA coverage. I am going to leave his bandage on for today and change it tomorrow. No further surgery is expected. Any orthopedic questions can be directed to me at [phone]. Job ID: [id number]
[2021-01-01 15:20] LABS: Hemoglobin 7.9 g/dL (14.0-18.0)
[2021-01-01] MEDS: DAPTOmycin 650 MG in SYRINGE 0 ML IV SCH (17:05)
[2021-01-01] MEDS: SENNA 8.6 MG TAB PO SCH (20:29)
[2021-01-01] MEDS: MONTELUKAST SODIUM 10 MG TABLET PO SCH (20:29)
[2021-01-02] MEDS: oxyCODONE HCL IR 5 MG TAB (IMMEDIATE RELEASE) PO PRN ×4 (00:54→20:54)
[2021-01-02] MEDS: HYDROmorphone INJ 0.5 MG/0.5 ML SYR IV PRN (03:35)
[2021-01-02 05:30] LABS: Hematocrit (blood only) 26.4 % (42-52); Hemoglobin 8.2 g/dL (14.0-18.0); Mean Corpuscular Hemoglobin 27.6 pg (25-34); Mean Corpuscular Hgb Conc 31.1 g/dL (32-36); Mean Corpuscular Volume 88.9 fL (80-100); Mean Platelet Volume 9.2 fL (7.4-10.4); Platelet Count 226 K/uL (130-400); RDW Coefficient of Variation 15.4 % (11.5-14.5); RDW Standard Deviation 50.2 fL (36.4-46.3); Red Blood Count 2.97 M/uL (4.7-6.1)
[2021-01-02] MEDS: ACETAMINOPHEN 500 MG TAB PO SCH ×3 (06:03→20:54)
[2021-01-02 06:04] LABS: BUN Creatinine Ratio 28.7 (10-20); Calcium 9.3 mg/dl (8.5-10.1); Creatinine Clr Calc Pharmacy 100.4 ml/min; Est GFR (African American) 77.2 ml/min; Est GFR (Non-African American) 66.7 ml/min
[2021-01-02] MEDS: Ipratropium HFA Inhaler (Combivent Respimat P&T Subs) INH SCH ×4 (07:11→19:21)
[2021-01-02] MEDS: Albuterol HFA 8 GM Inhaler (Combivent Respimat P&T Subs) INH SCH ×4 (07:12→19:21)
[2021-01-02] MEDS: carvediloL 12.5 MG TAB PO SCH ×2 (09:24→18:02)
[2021-01-02] MEDS: MULTIVITAMIN TAB PO SCH (09:24)
[2021-01-02] MEDS: SERTRALINE HCL 100 MG TABLET PO SCH (09:24)
[2021-01-02] MEDS: DULoxetine HCL 60 MG CAP PO SCH (09:25)
[2021-01-02] MEDS: PANTOprazole 40 MG TAB PO SCH (09:25)
[2021-01-02] MEDS: FERROUS SULFATE 325 MG TAB PO SCH ×2 (09:25→18:15)
[2021-01-02] MEDS: GABAPENTIN 300 MG CAP PO SCH ×3 (09:25→20:55)
[2021-01-02] MEDS: POTASSIUM CHLORIDE CRTAB 20 MEQ TABCR PO SCH (09:25)
[2021-01-02] MEDS: amLODIPine BESYLATE 5 MG TAB PO SCH (09:26)
[2021-01-02] MEDS: BUMETANIDE 1 MG TAB PO SCH (09:26)
[2021-01-02] MEDS: TAMSULOSIN HCL 0.4 MG CAP PO SCH (09:26)
[2021-01-02] MEDS: CHOLECALCIFEROL 1,000 UNITS 25 MCG TAB PO SCH (09:26)
[2021-01-02] MEDS: DOCUSATE SODIUM 100 MG CAP PO SCH ×2 (09:26→20:56)
[2021-01-02] MEDS: lisinopril 10 MG TAB PO SCH (09:27)
[2021-01-02] MEDS: UMECLIDINIUM/VILANTEROL 62.5/25MCG 7 PUFFS/INHALER INH SCH (09:27)
[2021-01-02] MEDS: INSULIN ASPART 100 UNITS/ML 3 ML PEN SC SCH ×4 (09:29→21:01)
[2021-01-02] MEDS: INSULIN GLARGINE SOLOSTAR 100 UNITS/ML 3 ML PEN SC SCH ×2 (09:30→20:53)
--- NOTE | 2021-01-02 14:30 | Hospitalist Progress Note ---
Date of Service January 02, 2021 Assessment & Plan (1) Abscess of hand, right: (2) Septic arthritis of hand, right: Plan: I&D right hand 12/31 dorsal hand abscess and third MCP joint septic arthritis by Dr. Angelo hastings with IV Dapto-cultures growing MRSA, consult ID (3) Postoperative anemia: Plan: Patient reporting shortness of breath and lightheadedness, uncertain chronicity of this. Transfuse 1 unit pRBCs and recheck H/H after transfusion. (4) Chronic respiratory failure with hypoxia: Plan: chronically on oxygen supplementation and at his baseline. (5) COPD (chronic obstructive pulmonary disease): Plan: -saturating well on chronic 2L oxygen -continue home inhalers (6) History of COVID-19: Plan: -received aggressive treatment in October 2020 -continues to test positive, no acute issues (7) Chronic diastolic CHF (congestive heart failure): Plan: -appears euvolemic, continue home diuretics (8) Diabetes mellitus, type II: Plan: -hgb a1c 7.1 11/2020 -blood sugars controlled -Lantus and Novolog (9) Hypertension: Plan: -BP controlled, continue Lisinopril (10) DVT prophylaxis: Plan: -SQ Heparin Full Code Dispo-to [facility] at discharge. Neha Mittal DO [facility] Hospitalist Admission and Anticipated Discharge Date Admission Date: December 30, 2020 Subjective 65 year old male with PMH COPD, DM type II, chronic hypoxic resp failure on 2L O2, HTN, COVID 19 infection 10/2020. Recently admitted to [facility] 11/29 - 12/21 for acute hypoxic resp failure due to CHF in the setting of prior COVID 19 infection. Discharged to [facility]. Presented to ED 12/30 with red hand pain and swelling. Right hand MRI showed 5.6 x 1.2 cm subcutaneous fluid collection of the dorsal aspect of the right hand overlying the right third metacarpophalangeal joint. This is suggestive of an abscess. This may communicate with a joint effusion of the right third metacarpophalangeal joint which suggests septic arthritis with possible associated osteomyelitis of the right third metacarpal and third proximal phalanx. Suspected associated infectious tenosynovitis of the right third and fourth extensor tendon sheaths. Patient reporting severe pain in right hand Not motivated to move around Tolerating PO Review of Systems Review of Systems: All systems were reviewed and negative except as indicated in HPI above. Physical Exam Physical Exam: CONSTITUTIONAL: obese, vitals as above, generally ill- appearing EYES: normal conjunctivae, no scleral icterus ENT: external ear and nose normal, MMM RESPIRATORY: clear to auscultation bilaterally, no crackles, rales or wheezes, normal respiratory effort CARDIOVASCULAR: regular rate and rhythm, S1 and 2 heard without murmurs, gallops or rubs, no JVD, no peripheral edema CHEST: inspection of chest was normal GASTROINTESTINAL: soft, nontender, nondistended, protuberant abdomen. MUSCULOSKELETAL: generalized weakness, head is normocephalic and atraumatic SKIN: warm and dry NEUROLOGIC: CN 2-12 grossly intact, no sensory deficit, normal cognition, normal speech, no tremor. PSYCHIATRIC: alert cooperative and oriented to person, place and time. Results & Data Results & Data ([facility]) Vital Signs (Past 12 Hours) Vital Signs Temp Pulse Pulse Resp BP BP Pulse Ox 01/02/21 11:30 88 20 95 01/02/21 07:55 36.5 C 68 16 133/72 100 01/02/21 07:21 90 18 94 01/02/21 03:52 36.4 C L 59 L 16 132/67 97 Laboratory Results Short CBC 01/01/21 01/02/21 Range/Units 14:59 05:11 WBC 9.70 (4.8-10.8) K/uL Hgb 7.9 L 8.2 L (14.0-18.0) g/dL Hct 25.0 L 26.4 L (42-52) % Plt Count 226 (130-400) K/uL BMP 01/02/21 05:11 Sodium 139 Potassium 4.0 Chloride 107 Carbon Dioxide 28 BUN 33 H Creatinine 1.16 Glucose 140 H Calcium 9.3 Medications Administered Current Inpatient Medications Acetaminophen (Acetaminophen 500 Mg Tab) 1,000 mg PO Q8H [facility] Stop: 01/30/21 21:59 Last Admin: 01/02/21 14:10 Dose: 1,000 mg Documented by: Albuterol (Albuterol Hfa 8 Gm Inhaler (Combivent Respimat P&T Subs)) 1 puffs INH QIDR [facility] Stop: 01/29/21 18:59 Last Admin: 01/02/21 11:29 Dose: 1 puffs Documented by: Amlodipine Besylate (Amlodipine Besylate 5 Mg Tab) 10 mg PO DAILY [facility] Stop: 01/30/21 08:59 Last Admin: 01/02/21 09:26 Dose: 10 mg Documented by: Atorvastatin Calcium (Atorvastatin 40 Mg Tab) 40 mg PO HS [facility] Stop: 01/29/21 20:59 Last Admin: 12/30/20 19:57 Dose: 40 mg Documented by: Bisacodyl (Bisacodyl 10 Mg Supp) 10 mg MO DAILY PRN PRN Reason: Constipation Stop: 01/30/21 10:14 Bumetanide (Bumetanide 1 Mg Tab) 2 mg PO DAILY [facility] Stop: 01/30/21 08:59 Last Admin: 01/02/21 09:26 Dose: 2 mg Documented by: Carvedilol (Carvedilol 12.5 Mg Tab) 12.5 mg PO BIDM [facility] Stop: 01/29/21 16:59 Last Admin: 01/02/21 09:24 Dose: 12.5 mg Documented by: Dextrose (Dextrose 50% 50 Ml Syringe) 25 - 50 ml IV UD PRN; Protocol PRN Reason: Hypoglycemia Protocol Stop: 01/29/21 15:02 Docusate Sodium (Docusate Sodium 100 Mg Cap) 100 mg PO BID PRN PRN Reason: Constipation Stop: 01/29/21 15:02 Docusate Sodium (Docusate Sodium 100 Mg Cap) 100 mg PO BID [facility] Stop: 01/30/21 20:59 Last Admin: 01/02/21 09:26 Dose: 100 mg Documented by: Duloxetine HCl (Duloxetine Hcl 60 Mg Cap) 60 mg PO DAILY [facility] Stop: 01/30/21 08:59 Last Admin: 01/02/21 09:25 Dose: 60 mg Documented by: Ferrous Sulfate (Ferrous Sulfate 325 Mg Tab) 325 mg PO BIDM [facility] Stop: 01/29/21 16:59 Last Admin: 01/02/21 09:25 Dose: 325 mg Documented by: Gabapentin (Gabapentin 300 Mg Cap) 300 mg PO TID [facility] Stop: 01/30/21 13:59 Last Admin: 01/02/21 14:11 Dose: 300 mg Documented by: Glucagon (Glucagon For Inj 1 Mg Vial) 1 mg SQ UD PRN; Protocol PRN Reason: Hypoglycemia Protocol Stop: 01/29/21 15:02 Glucose (Glucose 10 Tabs/Tube) 4 - 8 tabs PO UD PRN; Protocol PRN Reason: Hypoglycemia Protocol Stop: 01/29/21 15:02 Glucose (Glucose 40% Gel 15 Gm Tube) 15 - 30 gm PO UD PRN; Protocol PRN Reason: Hypoglycemia Protocol Stop: 01/29/21 15:02 Heparin Sodium (Porcine) (Heparin Sod 5,000 Unit/0.5 Ml Vial) 7,500 units SQ Q8 [facility] Stop: 01/29/21 15:02 Last Admin: 01/01/21 06:00 Dose: 7,500 units Documented by: Hydromorphone HCl (Hydromorphone Inj 0.5 Mg/0.5 Ml Syr) 0.5 mg IV Q6H PRN PRN Reason: Severe Pain Stop: 01/14/21 17:59 Daptomycin 650 mg/ Syringe 13 mls @ 5 mls/min IV Q24H [facility]; Protocol Stop: 01/08/21 15:59 Last Admin: 01/01/21 17:05 Dose: 5 mls/min Documented by: Insulin Aspart (Insulin Aspart 100 Units/Ml 3 Ml Pen) 0 units SC ACHS [facility] Stop: 01/30/21 05:59 Last Admin: 01/02/21 12:50 Dose: 6 units Documented by: Insulin Glargine (Insulin Glargine Solostar 100 Units/Ml 3 Ml Pen) 15 units SC BID [facility] Stop: 01/29/21 20:59 Last Admin: 01/02/21 09:30 Dose: 15 units Documented by: Ipratropium [place] (Ipratropium Hfa Inhaler (Combivent Respimat P&T Subs)) 1 puffs INH QIDR [facility] Stop: 01/29/21 18:59 Last Admin: 01/02/21 11:28 Dose: 1 puffs Documented by: Lisinopril (Lisinopril 10 Mg Tab) 10 mg PO QAM [facility] Stop: 01/30/21 08:59 Last Admin: 01/02/21 09:27 Dose: 10 mg Documented by: Magnesium Hydroxide (Magnesium Hydroxide Susp 30 Ml Udc) 30 ml PO DAILY PRN PRN Reason: Constipation Stop: 01/29/21 15:02 Magnesium Hydroxide (Magnesium Hydroxide Susp 30 Ml Udc) 30 ml PO Q6H PRN PRN Reason: Constipation Stop: 01/30/21 10:14 Metoclopramide HCl (Metoclopramide Hcl Inj 5 Mg/Ml 2 Ml Vial) 10 mg IV Q6H PRN PRN Reason: Nausea And Vomiting Stop: 01/30/21 10:14 Miscellaneous (Carbohydrates For Hypoglycemia ) 15 - 30 gm PO UD PRN PRN Reason: Hypoglycemia Protocol Stop: 01/29/21 15:02 Miscellaneous Information (Daptomycin Consult Active) 1 ea N/A UD PRN PRN Reason: Consult Stop: 01/30/21 12:14 Montelukast Sodium (Montelukast Sodium 10 Mg Tablet) 10 mg PO HS [facility] Stop: 01/29/21 20:59 Last Admin: 01/01/21 20:29 Dose: 10 mg Documented by: Multivitamins (Multivitamin Tab) 1 tab PO QAM [facility] Stop: 01/31/21 08:59 Last Admin: 01/02/21 09:24 Dose: 1 tab Documented by: Naloxone HCl (Naloxone Hcl 0.4 Mg/1 Ml Vial/Carp) 0.1 mg IV Q5M PRN PRN Reason: Oversedation/Resp Depression Stop: 01/30/21 10:14 Ondansetron HCl (Ondansetron Inj 2 Mg/Ml 2 Ml Vial) 4 mg IV Q6H PRN PRN Reason: Nausea And Vomiting Stop: 01/30/21 10:14 Oxycodone HCl (Oxycodone Hcl Ir 5 Mg Tab (Immediate Release)) 5 mg PO Q6H PRN PRN Reason: Pain Stop: 01/14/21 11:07 Last Admin: 01/02/21 14:11 Dose: 5 mg Documented by: Pantoprazole Sodium (Pantoprazole 40 Mg Tab) 40 mg PO DAILY [facility] Stop: 01/30/21 08:59 Last Admin: 01/02/21 09:25 Dose: 40 mg Documented by: Polyethylene Glycol (Polyethylene (Miralax) 17 Gm Pack) 17 gm PO DAILY PRN PRN Reason: Constipation Stop: 01/29/21 15:02 Potassium Chloride (Potassium Chloride Crtab 20 Meq Tabcr) 20 meq PO DAILY [facility] Stop: 01/30/21 08:59 Last Admin: 01/02/21 09:25 Dose: 20 meq Documented by: Senna/Docusate Sodium (Docusate Sodium/Senna 50/8.6mg Tab) 1 tab PO QDL PRN PRN Reason: Constipation Stop: 01/29/21 15:02 Sennosides (Senna 8.6 Mg Tab) 17.2 mg PO HS [facility] Stop: 01/30/21 20:59 Last Admin: 01/01/21 20:29 Dose: 17.2 mg Documented by: Sertraline HCl (Sertraline Hcl 100 Mg Tablet) 100 mg PO DAILY [facility] Stop: 01/30/21 08:59 Last Admin: 01/02/21 09:24 Dose: 100 mg Documented by: Tamsulosin HCl (Tamsulosin Hcl 0.4 Mg Cap) 0.8 mg PO DAILY [facility] Stop: 01/30/21 08:59 Last Admin: 01/02/21 09:26 Dose: 0.8 mg Documented by: Umeclidinium/Vilanterol (Umeclidinium/Vilanterol 62.5/25mcg 7 Puffs/Inhaler) 1 puffs INH DAILY [facility] Stop: 01/30/21 08:59 Last Admin: 01/02/21 09:27 Dose: 1 puffs Documented by: Vitamin D (Cholecalciferol 1,000 Units 25 Mcg Tab) 2,000 units PO DAILY [facility] Stop: 01/30/21 08:59 Last Admin: 01/02/21 09:26 Dose: 2,000 units Documented by:
[2021-01-02] MEDS: DAPTOmycin 650 MG in SYRINGE 0 ML IV SCH (16:32)
--- NOTE | 2021-01-02 18:24 | Progress Notes ---
DATE OF NOTE: 01/02/2021. SUBJECTIVE: A 65-year-old gentleman with multiple medical comorbidities, now postop day 2 from an I and D of a dorsal hand abscess along with a MCP joint infection. His hand is still pretty sore. Fee ls a little bit better pain edwards, but still pretty sore. No new complaints. OBJECTIVE: VITAL SIGNS: Temperature 36.4. Vital signs are stable. PHYSICAL EXAMINATION: GENERAL: A pleasant obese, poorly kempt male. EXTREMITIES: Examination of the right hand reveals residual swelling of all digits. He seems to hav e increasing swelling of his 3rd digit. The incisions are well approximated with a little bit of nec rosis appearance to the incision site. There is certainly quite a bit less swelling. With pressure on his dorsal hand, there is still pus extruding from the wound. His sensory exam is intact to light touch. LABORATORY DATA: Hemoglobin 8.2. Hematocrit 26.4. White cell count now normal. Culture results. Cultures also growing MRSA. ASSESSMENT: A 65-year-old gentleman with multiple medical comorbidities postop day 2 from an I and D of a right hand abscess growing out MRSA. Even after this pretty extensive I and D, he still got pu s coming out of his hand. It does look like he likely has developed a flexor tenosynovitis of the lo ng finger. PLAN: We are going to take him to the operating room tomorrow and wash his hand out again. It is po ssible we may leave it open. This is undesirable considering his extensor tendons, but I am afraid t hat if we keep closing this back up, it is just going to continue with purulence. We will likely try a wound VAC management. We are going to expose the 3rd finger and do an I and D of his flexor tendo n as well. The risks and benefits of this procedure were explained to the patient and informed conse nt was obtained. From the antibiotic standpoint, will be at the medicine service but he can probably be changed to adj ust MRSA specific antibiotics. The function and outcome of this hand is questionable considering thi s severe infection and its multiple medical comorbidities. We will continue to work hard to try and get this cleared of infection. Job ID: [id number]
[2021-01-02] MEDS: MONTELUKAST SODIUM 10 MG TABLET PO SCH (20:55)
[2021-01-02] MEDS: SENNA 8.6 MG TAB PO SCH (20:56)
[2021-01-03] MEDS ORDERED: Nursing to Pharmacy Communication SCH ×2 (00:15→16:30)
[2021-01-03] MEDS: oxyCODONE HCL IR 5 MG TAB (IMMEDIATE RELEASE) PO PRN ×2 (03:33→18:09)
[2021-01-03] MEDS: ACETAMINOPHEN 500 MG TAB PO SCH ×3 (05:54→22:18)
[2021-01-03] MEDS: INSULIN ASPART 100 UNITS/ML 3 ML PEN SC SCH ×4 (06:08→21:55)
[2021-01-03] MEDS: Albuterol HFA 8 GM Inhaler (Combivent Respimat P&T Subs) INH SCH ×4 (07:58→19:18)
[2021-01-03] MEDS: Ipratropium HFA Inhaler (Combivent Respimat P&T Subs) INH SCH ×4 (07:58→19:18)
[2021-01-03] MEDS: INSULIN GLARGINE SOLOSTAR 100 UNITS/ML 3 ML PEN SC SCH ×2 (09:23→22:22)
[2021-01-03] MEDS: SERTRALINE HCL 100 MG TABLET PO SCH (10:23)
[2021-01-03] MEDS: POTASSIUM CHLORIDE CRTAB 20 MEQ TABCR PO SCH (10:24)
[2021-01-03] MEDS: PANTOprazole 40 MG TAB PO SCH (10:24)
[2021-01-03] MEDS: TAMSULOSIN HCL 0.4 MG CAP PO SCH (10:24)
[2021-01-03] MEDS: MULTIVITAMIN TAB PO SCH (10:24)
[2021-01-03] MEDS: DULoxetine HCL 60 MG CAP PO SCH (10:25)
[2021-01-03] MEDS: CHOLECALCIFEROL 1,000 UNITS 25 MCG TAB PO SCH (10:25)
[2021-01-03] MEDS: DOCUSATE SODIUM 100 MG CAP PO SCH ×2 (10:26→22:23)
[2021-01-03] MEDS: GABAPENTIN 300 MG CAP PO SCH ×3 (10:26→21:55)
[2021-01-03] MEDS: FERROUS SULFATE 325 MG TAB PO SCH ×2 (10:28→18:36)
[2021-01-03] MEDS: amLODIPine BESYLATE 5 MG TAB PO SCH (10:29)
[2021-01-03] MEDS: lisinopril 10 MG TAB PO SCH (10:29)
[2021-01-03] MEDS: carvediloL 12.5 MG TAB PO SCH ×2 (10:30→18:09)
[2021-01-03] MEDS: BUMETANIDE 1 MG TAB PO SCH (10:30)
[2021-01-03] MEDS: UMECLIDINIUM/VILANTEROL 62.5/25MCG 7 PUFFS/INHALER INH SCH (10:31)
[2021-01-03] MEDS ORDERED: ONDANSETRON INJ 2 MG/ML 2 ML VIAL IV PRN ×2 (11:31→15:42)
[2021-01-03] MEDS ORDERED: ATROPINE SULFATE 0.1 MG/ML 10ML SYR IV PRN (11:31)
[2021-01-03] MEDS ORDERED: ePHEDrine sulfate 50 MG/ML AMP IV PRN (11:31)
[2021-01-03] MEDS ORDERED: HYDROmorphone INJ 1 MG/ML SYRINGE IV PRN (11:31)
--- NOTE | 2021-01-03 11:35 | Anesthesiology Consultation ---
Date of Service January 03, 2021 Assessment & Plan (1) Encounter for pre-operative examination: Chart Review Chart Review: Acceptable Risk for Surgery and Patient NOT seen in Pre Admission Testing geta with elective glidescope. Consults Requested none History Surgery Operation Date: 12/31/20 09:15 Proposed Procedures p Incision and Drainage of Right Hand - Jarod Stephens MD Operation Date: 01/03/21 11:30 Proposed Procedures p Incision and Drainage Right Hand - Jarod Stephens MD Height/Weight Height: 6 ft 1 in Weight: 152.3 kg Allergies Allergy/AdvReac Type Severity Reaction Status Date / Time No Known Allergies Allergy Verified 12/08/20 11:29 Medications Home Medications Medication Instructions Recorded Confirmed Last Taken acetaminophen 325 mg tablet 650 mg PO Q4 PRN 11/29/20 12/31/20 Unknown (Tylenol) amlodipine 10 mg tablet 10 mg PO DAILY 11/29/20 12/31/20 Unknown atorvastatin 40 mg tablet 40 mg PO HS 11/29/20 12/31/20 Unknown bumetanide 2 mg tablet 2 mg PO DAILY 11/29/20 12/31/20 Unknown carvedilol 12.5 mg tablet 12.5 mg PO BIDM 11/29/20 12/31/20 Unknown cholecalciferol (vitamin D3) 50 50 mcg PO DAILY 11/29/20 12/31/20 Unknown mcg (2,000 unit) capsule (Vitamin D3) docusate sodium 100 mg capsule 100 mg PO BID PRN 11/29/20 12/31/20 Unknown duloxetine 30 mg capsule,delayed 60 mg PO DAILY 11/29/20 12/31/20 Unknown release ferrous sulfate 325 mg (65 mg 325 mg PO BID 11/29/20 12/31/20 Unknown iron) tablet gabapentin 300 mg capsule 300 mg PO TID 11/29/20 12/31/20 Unknown insulin aspart U-100 100 unit/mL 5 unit SUBCUT TIDM 11/29/20 12/31/20 Unknown subcutaneous solution (Novolog U-100 Insulin aspart) insulin glargine 100 unit/mL 15 unit SUBCUT BID 11/29/20 12/31/20 Unknown subcutaneous cartridge ipratropium 20 mcg-albuterol 100 1 puff INHALATION QID 11/29/20 12/31/20 Unknown mcg/actuation mist for inhalation magnesium hydroxide 400 mg/5 mL 30 ml PO DAILY PRN 11/29/20 12/31/20 Unknown oral suspension (Milk of Magnesia) montelukast 10 mg tablet 10 mg PO HS 11/29/20 12/31/20 Unknown (Singulair) pantoprazole 40 mg tablet,delayed 40 mg PO DAILY 11/29/20 12/31/20 Unknown release (Protonix) polyethylene glycol 3350 17 gram 17 g PO DAILY PRN 11/29/20 12/31/20 Unknown oral powder packet (Miralax) potassium chloride 20 mEq 20 meq PO DAILY 11/29/20 12/31/20 Unknown tablet,extended release sennosides 8.6 mg-docusate sodium 1 tab-cap PO .QLUNCH PRN 11/29/20 12/31/20 Unknown 50 mg tablet (Senokot-S) sertraline 100 mg tablet 100 mg PO DAILY 11/29/20 12/31/20 Unknown tamsulosin 0.4 mg capsule 0.8 mg PO DAILY 11/29/20 12/31/20 Unknown umeclidinium 62.5 mcg-vilanterol 1 inh INHALATION DAILY 11/29/20 12/31/20 Unknown 25 mcg/actuation powdr for inhalation (Anoro Ellipta) lisinopril 10 mg tablet 10 mg PO QAM #30 tab 12/21/20 12/31/20 Unknown cephalexin 500 mg capsule 500 mg PO QID 12/31/20 12/31/20 Unknown cyclobenzaprine 5 mg tablet 5 mg PO TID PRN 12/31/20 12/31/20 Unknown enoxaparin 40 mg/0.4 mL 40 mg SUBCUT BID 12/31/20 12/31/20 Unknown subcutaneous syringe (Lovenox) insulin regular human 100 unit/mL 1 sliding scale dose SUBCUT 12/31/20 12/31/20 Unknown injection solution cartridge USEASDIRECTD oxycodone 5 mg tablet 10 mg PO Q4H PRN 12/31/20 12/31/20 Unknown Active Medications Generic Name Dose Route Start Last Admin Trade Name Freq PRN Reason Stop Dose Admin Acetaminophen 1,000 mg 12/31/20 22:00 01/03/21 05:54 Acetaminophen 500 Mg Tab PO 01/30/21 21:59 1,000 mg Q8H ZOHAIB Administration Albuterol 1 puffs 12/30/20 19:00 01/03/21 11:20 Albuterol Hfa 8 Gm Inhaler (Combivent Respimat P&T Subs) INH 01/29/21 18:59 Not Given QIDR ZOHAIB Amlodipine Besylate 10 mg 12/31/20 09:00 01/03/21 10:29 Amlodipine Besylate 5 Mg Tab PO 01/30/21 08:59 10 mg DAILY ZOHAIB Administration Atorvastatin Calcium 40 mg 12/30/20 21:00 12/30/20 19:57 Atorvastatin 40 Mg Tab PO 01/29/21 20:59 40 mg HS ZOHAIB Administration Bumetanide 2 mg 12/31/20 09:00 01/03/21 10:30 Bumetanide 1 Mg Tab PO 01/30/21 08:59 2 mg DAILY ZOHAIB Administration Carvedilol 12.5 mg 12/30/20 17:00 01/03/21 10:30 Carvedilol 12.5 Mg Tab PO 01/29/21 16:59 12.5 mg BIDM ZOHAIB Administration Docusate Sodium 100 mg 12/31/20 21:00 01/03/21 10:26 Docusate Sodium 100 Mg Cap PO 01/30/21 20:59 Not Given BID ZOHAIB Duloxetine HCl 60 mg 12/31/20 09:00 01/03/21 10:25 Duloxetine Hcl 60 Mg Cap PO 01/30/21 08:59 60 mg DAILY ZOHAIB Administration Ferrous Sulfate 325 mg 12/30/20 17:00 01/03/21 10:28 Ferrous Sulfate 325 Mg Tab PO 01/29/21 16:59 325 mg BIDM ZOHAIB Administration Gabapentin 300 mg 12/31/20 14:00 01/03/21 10:26 Gabapentin 300 Mg Cap PO 01/30/21 13:59 300 mg TID ZOHAIB Administration Heparin Sodium (Porcine) 7,500 units 12/30/20 15:03 01/01/21 06:00 Heparin Sod 5,000 Unit/0.5 Ml Vial SQ 01/29/21 15:02 7,500 units Q8 ZOHAIB Administration Daptomycin 650 mg/ Syringe 13 mls @ 5 mls/min 01/01/21 16:00 01/02/21 16:32 IV 01/08/21 15:59 5 mls/min Q24H ZOHAIB Administration Protocol Insulin Aspart 0 units 01/03/21 06:00 01/03/21 06:08 Insulin Aspart 100 Units/Ml 3 Ml Pen SC 02/02/21 05:59 Not Given Q6 ZOHAIB Insulin Glargine 15 units 12/30/20 21:00 01/03/21 09:23 Insulin Glargine Solostar 100 Units/Ml 3 Ml Pen SC 01/29/21 20:59 Not Given BID ZOHAIB Ipratropium Mallie 1 puffs 12/30/20 19:00 01/03/21 11:20 Ipratropium Hfa Inhaler (Combivent Respimat P&T Subs) INH 01/29/21 18:59 Not Given QIDR ZOHAIB Lisinopril 10 mg 12/31/20 09:00 01/03/21 10:29 Lisinopril 10 Mg Tab PO 01/30/21 08:59 10 mg QAM ZOHAIB Administration Montelukast Sodium 10 mg 12/30/20 21:00 01/02/21 20:55 Montelukast Sodium 10 Mg Tablet PO 01/29/21 20:59 10 mg HS ZOHAIB Administration Multivitamins 1 tab 01/01/21 09:00 01/03/21 10:24 Multivitamin Tab PO 01/31/21 08:59 1 tab QAM ZOHAIB Administration Oxycodone HCl 5 mg 12/31/20 11:08 01/03/21 03:33 Oxycodone Hcl Ir 5 Mg Tab (Immediate Release) PO 01/14/21 11:07 5 mg Q6H PRN Administration Pain Pantoprazole Sodium 40 mg 12/31/20 09:00 01/03/21 10:24 Pantoprazole 40 Mg Tab PO 01/30/21 08:59 40 mg DAILY ZOHAIB Administration Potassium Chloride 20 meq 12/31/20 09:00 01/03/21 10:24 Potassium Chloride Crtab 20 Meq Tabcr PO 01/30/21 08:59 20 meq DAILY ZOHAIB Administration Sennosides 17.2 mg 12/31/20 21:00 01/02/21 20:56 Senna 8.6 Mg Tab PO 01/30/21 20:59 Not Given HS ZOHAIB Sertraline HCl 100 mg 12/31/20 09:00 01/03/21 10:23 Sertraline Hcl 100 Mg Tablet PO 01/30/21 08:59 100 mg DAILY ZOHAIB Administration Tamsulosin HCl 0.8 mg 12/31/20 09:00 01/03/21 10:24 Tamsulosin Hcl 0.4 Mg Cap PO 01/30/21 08:59 0.8 mg DAILY ZOHAIB Administration Umeclidinium/Vilanterol 1 puffs 12/31/20 09:00 01/03/21 10:31 Umeclidinium/Vilanterol 62.5/25mcg 7 Puffs/Inhaler INH 01/30/21 08:59 1 puffs DAILY ZOHAIB Administration Vitamin D 2,000 units 12/31/20 09:00 01/03/21 10:25 Cholecalciferol 1,000 Units 25 Mcg Tab PO 01/30/21 08:59 2,000 units DAILY ZOHAIB Administration NPO Date Last Intake of Fluids: 01/02/21 Time Last Intake of Fluids: 23:00 Date Last Intake of Solids: 01/02/21 Time Last Intake of Solids: 23:00 Past Medical History Medical History Chronic diastolic CHF (congestive heart failure) Chronic respiratory failure with hypoxia CKD (chronic kidney disease) stage 3, GFR 30-59 ml/min Coronary artery disease Depression Diabetes mellitus, type II History of COVID-19 Hyperlipidemia Hypertension Morbid obesity FRANCIS (obstructive sleep apnea) Exercise / Class Metabolic Activity III < 4 Walking/Shop/Light housework Past Family History Family History Other Throat cancer Past Surgical History Surgical History H/O knee surgery right hand I and D 12/31/20. GETA with elective glidescope. Past Anesthesia History No Hx of Anesthesia Complications and No Family Hx of Anesthesia Complications History of PONV No Hx of PONV and No Hx of Motion Sickness Social History Smoking Status: Never smoker Do You Dip or Chew Tobacco: No Hx Alcohol Use: Yes Alcohol type: beer alcohol intake frequency: a few times a month Hx Substance Use: No substance use type: does not use Physical Exam Vital Signs Last Vital Signs Temp 36.8 C 01/03/21 11:21 Pulse 69 01/03/21 11:21 Resp 18 01/03/21 11:21 BP 132/69 01/03/21 11:21 Pulse Ox 100 01/03/21 11:21 Testing Laboratory Results 01/02/21 05:11 01/02/21 05:11 Urine Color Yellow 12/30/20 11:35 Urine Appearance Clear (Clear) 12/30/20 11:35 Urine pH 5.0 (4.5-7.5) 12/30/20 11:35 Ur Specific [place] 1.009 (1.000-1.030) 12/30/20 11:35 Urine Protein Negative (Negative) 12/30/20 11:35 Urine Glucose (UA) Negative (Negative) 12/30/20 11:35 Urine Ketones Negative (Negative) 12/30/20 11:35 Urine Nitrite Negative (Negative) 12/30/20 11:35 Ur Leukocyte Esterase Negative (Negative) 12/30/20 11:35 Blood Type A Positive 01/01/21 10:33 Antibody Screen NEGATIVE 01/01/21 10:33 12/31/20 08:35 Gram Stain - Final Tissue,Undefined Aerobic and Anaerobic Culture - Preliminary Staph aureus MRSA 12/31/20 08:34 Gram Stain - Final Hand,Right Aerobic and Anaerobic Culture - Preliminary Staph aureus MRSA 12/30/20 18:05 Gram Stain - Final Hand,Right Deep Wound Culture - Final Staph aureus MRSA 12/30/20 10:00 Aerobic Blood Culture - Preliminary Blood No growth in Aerobic bottle after 48 hours. Anaerobic Blood Culture - Preliminary No growth in Anaerobic bottle after 48 hours. 12/30/20 09:58 Aerobic Blood Culture - Preliminary Blood No growth in Aerobic bottle after 48 hours. Anaerobic Blood Culture - Preliminary No growth in Anaerobic bottle after 48 hours. 01/03/21 01/03/21 11:19 05:52 POC Glucose 116 H 109 H Electrocardiogram Date: 12/30/20 DICTATED BY: Pastor Haddad MD Test Reason : Blood Pressure : / mmHG Vent. Rate : 075 BPM Atrial Rate : 075 BPM P-R Int : 168 ms QRS Dur : 150 ms QT Int : 416 ms P-R-T Axes : 027 -46 009 degrees QTc Int : 464 ms Normal sinus rhythm Right bundle branch block Left anterior fascicular block Bifascicular block Abnormal ECG When compared with ECG of 20-DEC-2020 14:21, No significant change was found Confirmed by Pastor Haddad ([id number]) on 12/30/2020 4:27:41 PM
[2021-01-03] MEDS ORDERED: fentaNYL citrate 100 MCG/2 ML VIAL ONE ×2 (11:43→13:22)
[2021-01-03] MEDS ORDERED: PROPOFOL IV EMULSION 10 MG/ML 20 ML VIAL IV ONE (12:05)
[2021-01-03] MEDS ORDERED: SUCCINYLCHOLINE CHLORIDE 20 MG/ML 10 ML VIAL IV ONE (12:05)
[2021-01-03] MEDS ORDERED: ONDANSETRON INJ 2 MG/ML 2 ML VIAL ONE (12:05)
[2021-01-03] MEDS ORDERED: PHENYLEPHRINE HCL 10 MG/ML VIAL ONE (12:05)
[2021-01-03] MEDS ORDERED: LIDOCAINE 2% 2 ML VIAL/AMP(20MG/ML) INFIL ONE (12:05)
--- NOTE | 2021-01-03 12:27 | History & Physical Bridge Note ---
Date of Service January 03, 2021 History & Physical Bridge Note I have examined the patient, reviewed the History & Physical and in the interval since the performance of the History & Physical I have noted the following changes of clinical significance: no changes noted
[2021-01-03] MEDS ORDERED: MIDAZOLAM HCL 1 MG/ML 2ML VIAL ONE (12:30)
[2021-01-03] MEDS: fentaNYL citrate 100 MCG/2 ML VIAL IV PRN ×2 (14:50→15:00)
--- NOTE | 2021-01-03 14:52 | Operative Report ---
Post Operative Report Pre & Post Diagnosis Operation Date: 12/31/20 09:15 Pre-Op Diagnosis: CELLULITIS Post-Op Diagnosis: CELLULITIS Operation Date: 01/03/21 11:30 Pre-Op Diagnosis: Severe right hand infection with septic arthritis of the third MCP joint and infected tenosynovitis of the long finger. Post-Op Diagnosis: Severe right hand infection with septic arthritis of the third MCP joint infecte d tenosynovitis of the long finger. I identified the patient and participated in the time-out.: Yes Procedure Operation Date: 12/31/20 09:15 Actual Procedures p Incision and Drainage of Right Hand(Right) - Jarod Stephens MD Operation Date: 01/03/21 11:30 Actual Procedures p Incision and Drainage Right Hand(Right) - Jarod Stephens MD Surgeon Jarod Stephens MD Resident Inspector LYNSEY Clark Estimated Blood Loss 10 Findings Consistent with Post-Op Diagnosis Operative findings revealed recurrent purulence on the dorsal aspect of his hand but much improved. He continues to have extensive pus within the soft tissues throughout the hand particular on the dorsal side and extending up to the dorsal aspect of the third finger. There was also a pus on the volar side of the hand. The there was not a lot of pus inside the flexor tendon sheath itself but extensive pus outside the sheath between the sheath and the subcutaneous tissues. Specimens None Drains None Anesthesia Type General Complications none Disposition Accompanied Patient To Recovery: No Indications Patient is 65-year-old gentleman with multiple medical comorbidities who was admitted with a severe right hand infection. He underwent an I&D of a dorsal hand abscess 3 days ago. He has developed recurrent pus in the back of his hand as well as progressive swelling of the long finger consistent with septic tenosynovitis of the flexor tendon sheath. Patient indicated for repeat I&D. Description of Procedure Patient was taken to the operating, identified, placed on the operating table supine position but all contractors were properly padded. Patient has received IV antibiotics on the floor. A general anesthetic was implemented. The suture was removed from the back of the hand and the right hand was then prepped and draped in usual sterile fashion. The right arm was elevated. The tourniquet was placed at 250 mmHg. I opened the dorsal incision up initially. We irrigated this extensively with pulsatile lavage. I used a curette to get rid of any debris. I did open up the MCP joint capsule further and exposed the joint and washed this out extensively with bulb irrigation. We then irrigated the wound again. I debrided the wound again. We then cecilia our attention to the volar side. Jason incision was made over the distal palm at the base of the long finger. Blunt dissection got through subcutaneous tissues. There was no gross pus in the subcutaneous tissues. I did open the flexor tendon sheath. There was not a lot of purulent liquid in the sheath itself. I then made a distal incision on the ulnar side of the long finger at the DIP joint and elevated the soft tissues off the flexor tendon sheath. I opened the sheath distal to the A4 eula. I then irrigated this area out. I then developed a path on the volar side of the flexor tendon sheath through the distance communicating the 2 wounds as there was pus in this area. I then placed 2 feeding tubes of 1 5 Bahamian and the flexor tendon sheath and a 8 [place]amian in the subcutaneous tissue. We irrigated both these areas out extensively. Once all the fluid appeared fairly clear we elected to proceed with closure. The 5 Bahamian feeding tube was left in the flexor tendon sheath and the 8 [place]amian feeding tube was left in the subcutaneous tissues over the flexor tendon sheath. I placed a Cheryl drain distally out the DIP joint wound. I then closed the volar wounds with 4-0 nylon suture in a simple fashion and then sewed the drains to the palm as well to avoid them from getting removed. Attention drawn dorsally. I then once again irrigated the hand dorsally. We then clipped did close the distal and proximal portion of the wound but left the central portion open. I packed this with a Hibiclens soaked gauze. We place a sterile bandage composed of Xeroform, 4 x 4's, Kerlix wrap, Mario bandage. Patient was then placed in a sling. He was brought out of general incision transferred to the recovery room in stable condition. Patient tolerated procedure well and there were no complications. Vitaliy Clark, my physician senior underwriting assistant, was present for the entire procedure. His assistance was required for proper patient positioning, prepping and draping, surgical exposure, retraction, perform the technical details the operation, closure of the wound, placement of the bandage along with a sling. I attest to the content of the Intraoperative Record and any orders documented therein. Any exceptions are noted below.
--- NOTE | 2021-01-03 15:38 | Anesthesiology Progress Note ---
Date of Service January 03, 2021 Anesthesia Post Procedure Vital Signs Vital Signs: Temp Pulse Pulse Pulse Resp BP BP 01/03/21 15:15 36.2 C L 66 17 162/69 H 01/03/21 15:05 66 20 150/73 H 01/03/21 14:55 66 15 148/71 H 01/03/21 14:45 64 12 142/64 H 01/03/21 14:39 36.2 C L 68 16 159/90 H 01/03/21 11:21 36.8 C 69 18 132/69 01/03/21 10:28 69 135/77 01/03/21 08:00 71 19 01/03/21 07:09 36.5 C 73 18 136/75 01/02/21 22:06 37 C 63 18 129/72 01/02/21 19:23 74 16 01/02/21 18:05 64 113/72 01/02/21 17:11 36.4 C L 66 18 135/76 Pulse Ox 01/03/21 15:15 97 01/03/21 15:05 92 01/03/21 14:55 100 01/03/21 14:45 100 01/03/21 14:39 100 01/03/21 11:21 100 01/03/21 10:28 01/03/21 08:00 95 01/03/21 07:09 96 01/02/21 22:06 97 01/02/21 19:23 85 L 01/02/21 18:05 94 01/02/21 17:11 100 Pain Intensity Right Hand: Pain Intensity: 9 Transfer of Care Handoff Completed per policy Notes Mental Status: alert / awake / arousable Patient Amnestic to Procedure: Yes Nausea / Vomiting: adequately controlled Pain: adequately controlled Airway Patency, RR, SpO2: stable & adequate BP & HR: stable & adequate Hydration State: stable & adequate Anesthetic Complications: no major complications apparent and Pt Satisfied with anesthetic care Notes: The patient is awake and comfortable. His vital signs are stable.
[2021-01-03] MEDS ORDERED: NALOXONE HCL 0.4 MG/1 ML VIAL/CARP IV PRN (15:42)
[2021-01-03] MEDS ORDERED: bisacodyL 10 MG SUPP PR PRN (15:42)
[2021-01-03] MEDS ORDERED: MAGNESIUM HYDROXIDE SUSP 30 ML UDC PO PRN (15:42)
[2021-01-03] MEDS ORDERED: METOCLOPRAMIDE HCL INJ 5 MG/ML 2 ML VIAL IV PRN (15:42)
[2021-01-03] MEDS: DAPTOmycin 650 MG in SYRINGE 0 ML IV SCH (16:19)
[2021-01-03] MEDS: SODIUM CHLORIDE 0.9% 1000ML 1,000 ML IV SCH ×2 (16:19→22:25)
--- NOTE | 2021-01-03 19:16 | Hospitalist Progress Note ---
Date of Service January 03, 2021 Assessment & Plan (1) Osteomyelitis of right hand: (2) Abscess of hand, right: (3) Septic arthritis of hand, right: Plan: -s/p I&D right dorsal hand abscess and third MCP joint septic arthritis by Dr. Stephens on 12/31 and again re-washout today. -MRSA growing, cont daptomycin for 6 weeks per ID recs. Weekly CK for monitoring. -Cont scheduled Tylenol and PRN narcotics for pain management. (4) Postoperative anemia: Plan: Improved H/H post transfusion 1 Unit on 01/01. Cont to trend H/H in am. (5) Chronic respiratory failure with hypoxia: Plan: chronically on oxygen supplementation and at his baseline. (6) COPD (chronic obstructive pulmonary disease): Plan: -saturating well on chronic 2L oxygen -continue home inhalers (7) History of COVID-19: Plan: -received aggressive treatment in October 2020 -continues to test positive, no acute issues, not on isolation (8) Chronic diastolic CHF (congestive heart failure): Plan: -appears euvolemic, continue Bumex per home regimen. (9) Diabetes mellitus, type II: Plan: -hgb a1c 7.1 11/2020 -blood sugars controlled -Lantus and Novolog (10) Hypertension: Plan: -BP controlled, continue Lisinopril, Coreg, Bumex per home regimen. (11) Morbid obesity: (12) DVT prophylaxis: Plan: -SQ Heparin Admission and Anticipated Discharge Date Admission Date: December 30, 2020 Subjective 65 year old man with infection of right hand s/p I&D second washout performed today seen preoperatively and pain in right wrist reported no other issues reported on ROS Not motivated to move around. Review of Systems Review of Systems: All systems were reviewed and negative except as indicated in HPI above. Physical Exam Physical Exam: CONSTITUTIONAL: obese, vitals as above, generally ill- appearing EYES: normal conjunctivae, no scleral icterus ENT: external ear and nose normal, MMM RESPIRATORY: clear to auscultation bilaterally, no crackles, rales or wheezes, normal respiratory effort CARDIOVASCULAR: regular rate and rhythm, S1 and 2 heard without murmurs, gallops or rubs, no JVD, no peripheral edema CHEST: inspection of chest was normal GASTROINTESTINAL: soft, nontender, nondistended, protuberant abdomen. MUSCULOSKELETAL: generalized weakness, head is normocephalic and atraumatic, R wrist bandaging. SKIN: warm and dry NEUROLOGIC: CN 2-12 grossly intact, no sensory deficit, normal cognition, normal speech, no tremor. PSYCHIATRIC: alert cooperative and oriented to person, place and time. Results & Data Results & Data ([facility]) Vital Signs (Past 12 Hours) Vital Signs Temp Pulse Pulse Pulse Resp BP BP 01/03/21 17:40 73 18 124/71 01/03/21 16:40 36.4 C L 69 18 139/76 01/03/21 16:10 36.4 C L 69 18 131/75 01/03/21 15:40 36.4 C L 69 20 151/82 H 01/03/21 15:30 67 12 129/65 01/03/21 15:15 36.2 C L 66 17 162/69 H 01/03/21 15:05 66 20 150/73 H 01/03/21 14:55 66 15 148/71 H 01/03/21 14:45 64 12 142/64 H 01/03/21 14:39 36.2 C L 68 16 159/90 H 01/03/21 11:21 36.8 C 69 18 132/69 01/03/21 10:28 69 135/77 01/03/21 08:00 71 19 01/03/21 07:09 36.5 C 73 18 136/75 Pulse Ox 01/03/21 17:40 97 01/03/21 16:40 100 01/03/21 16:10 100 01/03/21 15:40 97 01/03/21 15:30 99 01/03/21 15:15 97 01/03/21 15:05 92 01/03/21 14:55 100 01/03/21 14:45 100 01/03/21 14:39 100 01/03/21 11:21 100 01/03/21 10:28 01/03/21 08:00 95 01/03/21 07:09 96 Medications Administered Current Inpatient Medications Acetaminophen (Acetaminophen 500 Mg Tab) 1,000 mg PO Q8H ZOHAIB Stop: 01/30/21 21:59 Last Admin: 01/03/21 15:48 Dose: 1,000 mg Documented by: Albuterol (Albuterol Hfa 8 Gm Inhaler (Combivent Respimat P&T Subs)) 1 puffs INH QIDR ZOHAIB Stop: 01/29/21 18:59 Last Admin: 01/03/21 15:20 Dose: Not Given Documented by: Amlodipine Besylate (Amlodipine Besylate 5 Mg Tab) 10 mg PO DAILY ZOHAIB Stop: 01/30/21 08:59 Last Admin: 01/03/21 10:29 Dose: 10 mg Documented by: Atorvastatin Calcium (Atorvastatin 40 Mg Tab) 40 mg PO HS ZOHAIB Stop: 01/29/21 20:59 Last Admin: 12/30/20 19:57 Dose: 40 mg Documented by: Atropine Sulfate (Atropine Sulfate 0.1 Mg/Ml 10ml Syr) 0.5 mg IV Q1M PRN PRN Reason: PACU Use-HR<40 &/or Bradycardi Stop: 01/03/21 19:31 Bisacodyl (Bisacodyl 10 Mg Supp) 10 mg AL DAILY PRN PRN Reason: Constipation Stop: 01/30/21 10:14 Bumetanide (Bumetanide 1 Mg Tab) 2 mg PO DAILY ZOHAIB Stop: 01/30/21 08:59 Last Admin: 01/03/21 10:30 Dose: 2 mg Documented by: Carvedilol (Carvedilol 12.5 Mg Tab) 12.5 mg PO BIDM ZOHAIB Stop: 01/29/21 16:59 Last Admin: 01/03/21 18:09 Dose: 12.5 mg Documented by: Dextrose (Dextrose 50% 50 Ml Syringe) 25 - 50 ml IV UD PRN; Protocol PRN Reason: Hypoglycemia Protocol Stop: 01/29/21 15:02 Docusate Sodium (Docusate Sodium 100 Mg Cap) 100 mg PO BID PRN PRN Reason: Constipation Stop: 01/29/21 15:02 Docusate Sodium (Docusate Sodium 100 Mg Cap) 100 mg PO BID ZOHAIB Stop: 01/30/21 20:59 Last Admin: 01/03/21 10:26 Dose: Not Given Documented by: Duloxetine HCl (Duloxetine Hcl 60 Mg Cap) 60 mg PO DAILY ZOHAIB Stop: 01/30/21 08:59 Last Admin: 01/03/21 10:25 Dose: 60 mg Documented by: Ephedrine Sulfate (Ephedrine Sulfate 50 Mg/Ml Amp) 5 mg IV Q5M PRN PRN Reason: PACU Use Only-SBP<90 mmHg Stop: 01/03/21 19:31 Fentanyl Citrate (Fentanyl Citrate 100 Mcg/2 Ml Vial) 25 mcg IV Q5M PRN PRN Reason: PACU Use Only-Pain Stop: 01/03/21 19:32 Last Admin: 01/03/21 15:00 Dose: 25 mcg Documented by: Ferrous Sulfate (Ferrous Sulfate 325 Mg Tab) 325 mg PO BIDM ZOHAIB Stop: 01/29/21 16:59 Last Admin: 01/03/21 18:36 Dose: 325 mg Documented by: Gabapentin (Gabapentin 300 Mg Cap) 300 mg PO TID ZOHAIB Stop: 01/30/21 13:59 Last Admin: 01/03/21 15:48 Dose: 300 mg Documented by: Glucagon (Glucagon For Inj 1 Mg Vial) 1 mg SQ UD PRN; Protocol PRN Reason: Hypoglycemia Protocol Stop: 01/29/21 15:02 Glucose (Glucose 10 Tabs/Tube) 4 - 8 tabs PO UD PRN; Protocol PRN Reason: Hypoglycemia Protocol Stop: 01/29/21 15:02 Glucose (Glucose 40% Gel 15 Gm Tube) 15 - 30 gm PO UD PRN; Protocol PRN Reason: Hypoglycemia Protocol Stop: 01/29/21 15:02 Heparin Sodium (Porcine) (Heparin Sod 5,000 Unit/0.5 Ml Vial) 7,500 units SQ Q8 ZOHAIB Stop: 01/29/21 15:02 Last Admin: 01/01/21 06:00 Dose: 7,500 units Documented by: Hydromorphone HCl (Hydromorphone Inj 0.5 Mg/0.5 Ml Syr) 0.5 mg IV Q6H PRN PRN Reason: Severe Pain Stop: 01/14/21 17:59 Hydromorphone HCl (Hydromorphone Inj 1 Mg/Ml Syringe) 0.25 mg IV Q5M PRN PRN Reason: PACU Use Only-Pain Stop: 01/03/21 19:32 Daptomycin 650 mg/ Syringe 13 mls @ 5 mls/min IV Q24H ZOHAIB; Protocol Stop: 01/08/21 15:59 Last Admin: 01/03/21 16:19 Dose: 5 mls/min Documented by: Sodium Chloride (Nss 1000ml) 1,000 mls @ 100 mls/hr IV .Q10H [facility] Stop: 01/04/21 06:00 Last Admin: 01/03/21 16:19 Dose: 100 mls/hr Documented by: Insulin Aspart (Insulin Aspart 100 Units/Ml 3 Ml Pen) 0 units SC ACHS [facility] Stop: 02/02/21 16:29 Last Admin: 01/03/21 18:12 Dose: 6 units Documented by: Insulin Glargine (Insulin Glargine Solostar 100 Units/Ml 3 Ml Pen) 15 units SC BID [facility] Stop: 01/29/21 20:59 Last Admin: 01/03/21 09:23 Dose: Not Given Documented by: Ipratropium [place] (Ipratropium Hfa Inhaler (Combivent Respimat P&T Subs)) 1 puffs INH QIDR [facility] Stop: 01/29/21 18:59 Last Admin: 01/03/21 15:20 Dose: Not Given Documented by: Lisinopril (Lisinopril 10 Mg Tab) 10 mg PO QAM [facility] Stop: 01/30/21 08:59 Last Admin: 01/03/21 10:29 Dose: 10 mg Documented by: Magnesium Hydroxide (Magnesium Hydroxide Susp 30 Ml Udc) 30 ml PO Q6H PRN PRN Reason: Constipation Stop: 01/30/21 10:14 Metoclopramide HCl (Metoclopramide Hcl Inj 5 Mg/Ml 2 Ml Vial) 10 mg IV Q6H PRN PRN Reason: Nausea And Vomiting Stop: 01/30/21 10:14 Miscellaneous (Carbohydrates For Hypoglycemia ) 15 - 30 gm PO UD PRN PRN Reason: Hypoglycemia Protocol Stop: 01/29/21 15:02 Miscellaneous Information (Daptomycin Consult Active) 1 ea N/A UD PRN PRN Reason: Consult Stop: 01/30/21 12:14 Montelukast Sodium (Montelukast Sodium 10 Mg Tablet) 10 mg PO HS [facility] Stop: 01/29/21 20:59 Last Admin: 01/02/21 20:55 Dose: 10 mg Documented by: Multivitamins (Multivitamin Tab) 1 tab PO QAM [facility] Stop: 01/31/21 08:59 Last Admin: 01/03/21 10:24 Dose: 1 tab Documented by: Naloxone HCl (Naloxone Hcl 0.4 Mg/1 Ml Vial/Carp) 0.1 mg IV Q5M PRN PRN Reason: Oversedation/Resp Depression Stop: 01/30/21 10:14 Ondansetron HCl (Ondansetron Inj 2 Mg/Ml 2 Ml Vial) 4 mg IV Q6H PRN PRN Reason: Nausea And Vomiting Stop: 01/30/21 10:14 Ondansetron HCl (Ondansetron Inj 2 Mg/Ml 2 Ml Vial) 4 mg IV ONCE PRN PRN Reason: PACU Use Only-Nausea/Vomiting Stop: 01/03/21 19:32 Last Admin: 01/03/21 14:45 Dose: 4 mg Documented by: Oxycodone HCl (Oxycodone Hcl Ir 5 Mg Tab (Immediate Release)) 5 mg PO Q6H PRN PRN Reason: Pain Stop: 01/14/21 11:07 Last Admin: 01/03/21 18:09 Dose: 5 mg Documented by: Pantoprazole Sodium (Pantoprazole 40 Mg Tab) 40 mg PO DAILY ZOHAIB Stop: 01/30/21 08:59 Last Admin: 01/03/21 10:24 Dose: 40 mg Documented by: Polyethylene Glycol (Polyethylene (Miralax) 17 Gm Pack) 17 gm PO DAILY PRN PRN Reason: Constipation Stop: 01/29/21 15:02 Potassium Chloride (Potassium Chloride Crtab 20 Meq Tabcr) 20 meq PO DAILY ZOHAIB Stop: 01/30/21 08:59 Last Admin: 01/03/21 10:24 Dose: 20 meq Documented by: Senna/Docusate Sodium (Docusate Sodium/Senna 50/8.6mg Tab) 1 tab PO QDL PRN PRN Reason: Constipation Stop: 01/29/21 15:02 Sennosides (Senna 8.6 Mg Tab) 17.2 mg PO HS ZOHAIB Stop: 01/30/21 20:59 Last Admin: 01/02/21 20:56 Dose: Not Given Documented by: Sertraline HCl (Sertraline Hcl 100 Mg Tablet) 100 mg PO DAILY ZOHAIB Stop: 01/30/21 08:59 Last Admin: 01/03/21 10:23 Dose: 100 mg Documented by: Tamsulosin HCl (Tamsulosin Hcl 0.4 Mg Cap) 0.8 mg PO DAILY ZOHAIB Stop: 01/30/21 08:59 Last Admin: 01/03/21 10:24 Dose: 0.8 mg Documented by: Umeclidinium/Vilanterol (Umeclidinium/Vilanterol 62.5/25mcg 7 Puffs/Inhaler) 1 puffs INH DAILY ZOHAIB Stop: 01/30/21 08:59 Last Admin: 01/03/21 10:31 Dose: 1 puffs Documented by: Vitamin D (Cholecalciferol 1,000 Units 25 Mcg Tab) 2,000 units PO DAILY ZOHAIB Stop: 01/30/21 08:59 Last Admin: 01/03/21 10:25 Dose: 2,000 units Documented by:
[2021-01-03] MEDS: HYDROmorphone INJ 0.5 MG/0.5 ML SYR IV PRN (19:34)
[2021-01-03] MEDS ORDERED: DOCUSATE SODIUM 100 MG CAP PO SCH (21:00)
[2021-01-03] MEDS ORDERED: SENNA 8.6 MG TAB PO SCH (21:00)
[2021-01-03] MEDS: ATORVASTATIN 40 MG TAB PO SCH (21:55)
[2021-01-03] MEDS: MONTELUKAST SODIUM 10 MG TABLET PO SCH (21:55)
[2021-01-03] MEDS: SENNA 8.6 MG TAB PO SCH (21:55)
[2021-01-03] MEDS ORDERED: HYDROmorphone INJ 0.5 MG/0.5 ML SYR IV STA (22:44)
[2021-01-04] MEDS: oxyCODONE HCL IR 5 MG TAB (IMMEDIATE RELEASE) PO PRN ×4 (01:40→22:53)
[2021-01-04] MEDS: HYDROmorphone INJ 0.5 MG/0.5 ML SYR IV PRN (06:20)
[2021-01-04] MEDS: ACETAMINOPHEN 500 MG TAB PO SCH ×3 (06:20→22:40)
[2021-01-04] MEDS: Albuterol HFA 8 GM Inhaler (Combivent Respimat P&T Subs) INH SCH ×2 (07:15→11:38)
[2021-01-04] MEDS: Ipratropium HFA Inhaler (Combivent Respimat P&T Subs) INH SCH ×2 (07:15→11:39)
[2021-01-04 08:30] LABS: Hematocrit (blood only) 26.4 % (42-52); Hemoglobin 8.2 g/dL (14.0-18.0); Mean Corpuscular Hemoglobin 27.8 pg (25-34); Mean Corpuscular Hgb Conc 31.1 g/dL (32-36); Mean Corpuscular Volume 89.5 fL (80-100); Platelet Count 288 K/uL (130-400); RDW Coefficient of Variation 15.2 % (11.5-14.5); RDW Standard Deviation 50.2 fL (36.4-46.3); Red Blood Count 2.95 M/uL (4.7-6.1); White Blood Count 9.76 K/uL (4.8-10.8)
[2021-01-04] MEDS: GABAPENTIN 300 MG CAP PO SCH ×3 (08:31→22:39)
[2021-01-04] MEDS: FERROUS SULFATE 325 MG TAB PO SCH ×2 (08:31→17:34)
[2021-01-04] MEDS: DOCUSATE SODIUM 100 MG CAP PO SCH ×2 (08:31→22:37)
[2021-01-04] MEDS: lisinopril 10 MG TAB PO SCH (08:32)
[2021-01-04] MEDS: MULTIVITAMIN TAB PO SCH (08:32)
[2021-01-04] MEDS: SERTRALINE HCL 100 MG TABLET PO SCH (08:32)
[2021-01-04] MEDS: amLODIPine BESYLATE 5 MG TAB PO SCH (08:33)
[2021-01-04] MEDS: POTASSIUM CHLORIDE CRTAB 20 MEQ TABCR PO SCH (08:33)
[2021-01-04] MEDS: CHOLECALCIFEROL 1,000 UNITS 25 MCG TAB PO SCH (08:33)
[2021-01-04] MEDS: TAMSULOSIN HCL 0.4 MG CAP PO SCH (08:33)
[2021-01-04] MEDS: DULoxetine HCL 60 MG CAP PO SCH (08:33)
[2021-01-04] MEDS: carvediloL 12.5 MG TAB PO SCH ×2 (08:34→17:34)
[2021-01-04] MEDS: PANTOprazole 40 MG TAB PO SCH (08:34)
[2021-01-04] MEDS: BUMETANIDE 1 MG TAB PO SCH (08:34)
[2021-01-04] MEDS: INSULIN ASPART 100 UNITS/ML 3 ML PEN SC SCH ×4 (08:35→22:42)
[2021-01-04] MEDS: UMECLIDINIUM/VILANTEROL 62.5/25MCG 7 PUFFS/INHALER INH SCH (08:37)
[2021-01-04] MEDS: INSULIN GLARGINE SOLOSTAR 100 UNITS/ML 3 ML PEN SC SCH ×2 (08:37→22:42)
--- NOTE | 2021-01-04 08:50 | Progress Notes ---
DATE OF SERVICE: 01/04/2021. SUBJECTIVE: A 65-year-old diabetic with multiple medical comorbidities, now postop day 1 from a repe at I and D of right hand infection as well as I and D of an infected tenosynovitis of the long finger . He is doing okay. He states that his hand is still pretty painful, particularly the long finger. Certainly not any worse, maybe just a little bit better. PHYSICAL EXAMINATION: GENERAL: Shows a pleasant middle-aged male. He looks to be at his baseline. EXTREMITIES: Examination of the right hand reveals the dressing clean, dry and intact. A little bit of dry bloody drainage. He can flex and extend his fingers slightly. Sensory exam is intact to lig ht touch. ASSESSMENT: A 65-year-old gentleman with multiple medical comorbidities, now postop day 1 from an I and D of dorsal hand abscess, I and D of septic arthritis, I and D of infected flexor tenosynovitis. He has got a pretty bad hand infection with a poor host. PLAN: 1. We are going to continue the irrigation on the volar side of his hand. We need the wound special ist to see him about placing a wound VAC dorsally, as I think closing this wound is going to just sea l an infection and require further surgical treatment. Hopefully, we can use a wound VAC to suck any further infection now. 2. PT/OT. He is certainly better for some therapy eventually, but not yet from the hand standpoint. 3. Medical management as per the medicine service. 4. Antibiotic management. He is going to get 6 weeks of IV antibiotics and then possibly a course o f oral depending on how his hand responds. Any orthopedic questions can be directed to me at [phone]. He will likely need a PICC line for long-term antibiotics. Job ID: [id number]
[2021-01-04] MEDS ORDERED: MULTIVITAMIN TAB PO SCH (09:00)
[2021-01-04 09:50] LABS: BUN Creatinine Ratio 18.9 (10-20); Calcium 9.2 mg/dl (8.5-10.1); Creatinine Clr Calc Pharmacy 110.2 ml/min; Est GFR (African American) 86.1 ml/min; Est GFR (Non-African American) 74.3 ml/min; Potassium 3.8 mmol/L (3.5-5.1)
[2021-01-04 09:59] LABS: C Reactive Protein 12.3 mg/dl (0-0.29)
[2021-01-04] MEDS ORDERED: ALBUTEROL HFA 8 GM INHALER INH PRN (12:01)
--- NOTE | 2021-01-04 14:03 | Hospitalist Progress Note ---
Date of Service January 04, 2021 Assessment & Plan (1) Osteomyelitis of right hand: (2) Abscess of hand, right: (3) Septic arthritis of hand, right: Plan: -s/p I&D right dorsal hand abscess and third MCP joint septic arthritis by Dr. Stephens on 12/31 - s/p washout on 01/03 Appreciate infectious disease input. Cultures growing MRSA continue daptomycin for a total of 6 weeks. CK monitoring weekly. Will need PICC line prior to discharge Cont scheduled Tylenol and PRN narcotics for pain management. Patient complained of tightening of the right hand today. Ortho plans to do irrigation of his hand today. Likely need wound VAC. Continue to work with PT/OT. (4) Postoperative anemia: Plan: S/P 1 Unit on 01/01. Hemoglobin today at 8.2 Continue to trend daily (5) Chronic respiratory failure with hypoxia: Plan: chronically on oxygen supplementation and at his baseline. (6) COPD (chronic obstructive pulmonary disease): Plan: Currently on roughly 1 L of nasal cannula oxygen. Respiratory during protocol. Continue with as needed bronchodilators (7) History of COVID-19: Plan: -received aggressive treatment in October 2020 -continues to test positive, no acute issues, not on isolation (8) Chronic diastolic CHF (congestive heart failure): Plan: -appears euvolemic, continue Bumex per home regimen. (9) Diabetes mellitus, type II: Plan: -hgb a1c 7.1 11/2020 -blood sugars controlled -Lantus and Novolog (10) Hypertension: Plan: -BP controlled, continue Lisinopril, Coreg, Bumex per home regimen. (11) Morbid obesity: (12) DVT prophylaxis: Plan: -SQ Heparin Admission and Anticipated Discharge Date Admission Date: December 30, 2020 Subjective Patient was awake and alert. He was oriented to place and person but not the time. Does report his right hand feeling numb. Denies any chest pain, shortness of breath, palpitations or any dizziness. Denies any nausea or any vomiting. Denies any abdominal pain Review of Systems Review of Systems: All systems reviewed & are unremarkable except as noted in HPI & below Physical Exam Physical Exam: General: A&Ox2 HENT: NCAT, MMM, EOMI Eyes: PERRLA Neck: Supple, normal range of motion CVS: normal rate and rhythm Resp: b/l crackles appreciated Abdomen: Soft, ND/NT Extremities: R hand dressing intact Neuro: face symmetric,no focal deficit Skin: warm and dry, no rashes/lesions/errythema MSK: normal ROM, no joint swelling/erythema Gamez catheter in place. Results & Data Results & Data ([facility]) Vital Signs (Past 12 Hours) Vital Signs Temp Pulse Resp BP Pulse Ox 01/04/21 08:05 36.7 C 69 18 148/68 H 92 01/04/21 07:16 72 18 98 01/04/21 04:00 36.7 C 70 16 154/76 H 100 Laboratory Results Laboratory Results - last 24 hr 01/03/21 01/03/21 01/03/21 14:42 16:58 20:57 WBC RBC Hgb Hct MCV MCH MCHC RDW Std Deviation RDW Coeff of Xin Plt Count MPV ESR Sodium Potassium Chloride Carbon Dioxide Anion Gap BUN Creatinine Est Cr Clr Drug Dosing Est GFR ( Amer) Est GFR (Non-Af Amer) BUN/Creatinine Ratio Glucose POC Glucose 137 H 132 H 143 H Calcium Total Creatine Kinase C-Reactive Protein 01/04/21 01/04/21 01/04/21 07:31 07:31 07:31 WBC 9.76 RBC 2.95 L Hgb 8.2 L Hct 26.4 L MCV 89.5 MCH 27.8 MCHC 31.1 L RDW Std Deviation 50.2 H RDW Coeff of Xin 15.2 H Plt Count 288 MPV 9.0 ESR 72 H Sodium 138 Potassium 3.8 Chloride 103 Carbon Dioxide 32 Anion Gap 3.0 BUN 20 H Creatinine 1.06 Est Cr Clr Drug Dosing 110.2 Est GFR ( Amer) 86.1 Est GFR (Non-Af Amer) 74.3 BUN/Creatinine Ratio 18.9 Glucose 103 H POC Glucose Calcium 9.2 Total Creatine Kinase 14 L C-Reactive Protein 12.30 H 01/04/21 01/04/21 08:03 12:20 WBC RBC Hgb Hct MCV MCH MCHC RDW Std Deviation RDW Coeff of Xin Plt Count MPV ESR Sodium Potassium Chloride Carbon Dioxide Anion Gap BUN Creatinine Est Cr Clr Drug Dosing Est GFR ( Amer) Est GFR (Non-Af Amer) BUN/Creatinine Ratio Glucose POC Glucose 116 H 128 H Calcium Total Creatine Kinase C-Reactive Protein
[2021-01-04] MEDS: DAPTOmycin 650 MG in SYRINGE 0 ML IV SCH (17:30)
[2021-01-04] MEDS: MONTELUKAST SODIUM 10 MG TABLET PO SCH (22:39)
[2021-01-04] MEDS: SENNA 8.6 MG TAB PO SCH (22:40)
[2021-01-04] MEDS: ATORVASTATIN 40 MG TAB PO SCH (23:00)
[2021-01-05] MEDS: ACETAMINOPHEN 500 MG TAB PO SCH ×3 (05:53→21:33)
[2021-01-05 06:24] LABS: Basophils # (auto) 0.02 K/uL (0-0.2); Basophils % (auto) 0.2 %; Eosinophils # (auto) 0.42 K/uL (0-0.5); Eosinophils % (auto) 4.3 %; Hematocrit (blood only) 25.4 % (42-52); Hemoglobin 7.8 g/dL (14.0-18.0); Immature Granulocytes # (auto) 0.15 K/uL (0.00-0.02); Immature Granulocytes % (auto) 1.5 %; Lymphocytes # (auto) 1.48 K/uL (1.2-3.4); Mean Corpuscular Hemoglobin 27.2 pg (25-34); Mean Corpuscular Hgb Conc 30.7 g/dL (32-36); Mean Corpuscular Volume 88.5 fL (80-100); Mean Platelet Volume 8.9 fL (7.4-10.4); Monocytes # (auto) 0.88 K/uL (0.11-0.59); Monocytes % (auto) 8.9 %; Neutrophils # (auto) 6.92 K/uL (1.4-6.5); Neutrophils % (auto) 70.1 %; Platelet Count 272 K/uL (130-400); RDW Coefficient of Variation 15.3 % (11.5-14.5); RDW Standard Deviation 49.6 fL (36.4-46.3); Red Blood Count 2.87 M/uL (4.7-6.1); White Blood Count 9.87 K/uL (4.8-10.8)
[2021-01-05 06:47] LABS: RBC Morphology Unremarkable
[2021-01-05 06:54] LABS: BUN Creatinine Ratio 16.2 (10-20); Calcium 9.5 mg/dl (8.5-10.1); Creatinine Clr Calc Pharmacy 95.7 ml/min; Est GFR (African American) 72.7 ml/min; Est GFR (Non-African American) 62.7 ml/min; Potassium 4.1 mmol/L (3.5-5.1)
--- NOTE | 2021-01-05 08:57 | Progress Notes ---
DATE OF SERVICE: 01/05/2021. SUBJECTIVE: A 65-year-old gentleman, now 2 days out from a repeat I and D of a right dorsal hand inf ection, septic arthritis, infected tenosynovitis. He seems to be making significant improvements ove r the past 48 hours since last I and D. Pain is improved. Hand is looking better. OBJECTIVE: VITAL SIGNS: Temperature 36.5. Vital signs are stable. PHYSICAL EXAMINATION: GENERAL: Shows a pleasant middle-aged male. I had to wake him this morning. EXTREMITIES: Examination of the right hand reveals the swelling to be slightly decreased. There is certainly less redness. NEUROLOGIC: He is neurologically stable. LABORATORY DATA: Hemoglobin is 7.8. Hematocrit 25.4. White cell count 9.7. Electrolytes are stabl e. ASSESSMENT: A 65-year-old gentleman admitted with a pretty severe right hand infection involving villasenor d abscess, osteomyelitis, septic arthritis, infected tenosynovitis. He is doing better. Hand seems to be turning the corner. PLAN: He had a wound VAC placed in the dorsal aspect of his hand yesterday and he will be followed b y wound clinic. I am going to remove his irrigation catheter today and his Cheyrl drain from his fi nger. We will just do routine dressing changes. We will likely start some therapy in the next day o r two for range of motion exercises. He will need 6 weeks of IV antibiotics. Any orthopedic questio ns can be directed to me at [phone]. I am not anticipating any further surgical need at this ti me. Job ID: [id number]
[2021-01-05] MEDS: oxyCODONE HCL IR 5 MG TAB (IMMEDIATE RELEASE) PO PRN ×2 (09:07→22:05)
[2021-01-05] MEDS: TAMSULOSIN HCL 0.4 MG CAP PO SCH (09:08)
[2021-01-05] MEDS: GABAPENTIN 300 MG CAP PO SCH ×3 (09:08→21:31)
[2021-01-05] MEDS: DULoxetine HCL 60 MG CAP PO SCH (09:09)
[2021-01-05] MEDS: carvediloL 12.5 MG TAB PO SCH ×2 (09:09→17:50)
[2021-01-05] MEDS: FERROUS SULFATE 325 MG TAB PO SCH ×2 (09:10→17:50)
[2021-01-05] MEDS: SERTRALINE HCL 100 MG TABLET PO SCH (09:10)
[2021-01-05] MEDS: PANTOprazole 40 MG TAB PO SCH (09:11)
[2021-01-05] MEDS: DOCUSATE SODIUM 100 MG CAP PO SCH ×2 (09:11→21:31)
[2021-01-05] MEDS: CHOLECALCIFEROL 1,000 UNITS 25 MCG TAB PO SCH (09:11)
[2021-01-05] MEDS: MULTIVITAMIN TAB PO SCH (09:12)
[2021-01-05] MEDS: lisinopril 10 MG TAB PO SCH (09:12)
[2021-01-05] MEDS: BUMETANIDE 1 MG TAB PO SCH (09:12)
[2021-01-05] MEDS: amLODIPine BESYLATE 5 MG TAB PO SCH (09:12)
[2021-01-05] MEDS: POTASSIUM CHLORIDE CRTAB 20 MEQ TABCR PO SCH (09:13)
[2021-01-05] MEDS: INSULIN GLARGINE SOLOSTAR 100 UNITS/ML 3 ML PEN SC SCH ×2 (09:13→22:07)
[2021-01-05] MEDS: UMECLIDINIUM/VILANTEROL 62.5/25MCG 7 PUFFS/INHALER INH SCH (09:13)
[2021-01-05] MEDS: INSULIN ASPART 100 UNITS/ML 3 ML PEN SC SCH ×4 (09:14→22:06)
--- NOTE | 2021-01-05 14:10 | Hospitalist Progress Note ---
Date of Service January 05, 2021 Assessment & Plan (1) Osteomyelitis of right hand: (2) Abscess of hand, right: (3) Septic arthritis of hand, right: Plan: -s/p I&D right dorsal hand abscess and third MCP joint septic arthritis by Dr. Stephens on 12/31 - s/p washout on 01/03 - s/p right hand wound vac in place Appreciate infectious disease input. Cultures growing MRSA continue daptomycin for a total of 6 weeks. CK monitoring weekly. Will need PICC line prior to discharge Cont scheduled Tylenol and PRN narcotics for pain management. Appreciate orthopedics input. Plan to remove the irrigation catheter/Cheryl drain today. Plan to start work with therapy for range of motion exercises in the next day or 2. (4) Postoperative anemia: Plan: S/P 1 Unit on 01/01. Hemoglobin today at 7.8. Continue to trend daily (5) Chronic respiratory failure with hypoxia: Plan: chronically on oxygen supplementation and at his baseline. (6) COPD (chronic obstructive pulmonary disease): Plan: Currently on roughly 2 L of nasal cannula oxygen. Respiratory during protocol. Continue with as needed bronchodilators (7) History of COVID-19: Plan: -received aggressive treatment in October 2020 -continues to test positive, no acute issues, not on isolation (8) Chronic diastolic CHF (congestive heart failure): Plan: -appears euvolemic, continue Bumex per home regimen. (9) Diabetes mellitus, type II: Plan: -hgb a1c 7.1 11/2020 -blood sugars controlled -Lantus and Novolog (10) Hypertension: Plan: -BP controlled, continue Lisinopril, Coreg, Bumex per home regimen. (11) Morbid obesity: (12) DVT prophylaxis: Plan: Restarted heparin today. Admission and Anticipated Discharge Date Admission Date: December 30, 2020 Subjective Patient is doing okay this morning. Reports his right hand discomfort is improved. He was oriented x3 today. Was on 2 L of oxygen earlier in the morning. Denies any chest pain, abdominal pain, diarrhea, nausea or any vomiting. Review of Systems Review of Systems: All systems reviewed & are unremarkable except as noted in HPI & below Physical Exam Physical Exam: General: A&Ox2 HENT: NCAT, MMM, EOMI Eyes: PERRLA Neck: Supple, normal range of motion CVS: normal rate and rhythm Resp: b/l crackles appreciated Abdomen: Soft, ND/NT Extremities: R hand dressing intact, wound VAC in place Neuro: face symmetric,no focal deficit Skin: warm and dry, no rashes/lesions/errythema MSK: normal ROM, no joint swelling/erythema Gamez catheter in place. Results & Data Results & Data ([facility]) Vital Signs (Past 12 Hours) Vital Signs Temp Pulse Resp BP Pulse Ox 01/05/21 08:07 36.5 C 72 18 120/68 97
[2021-01-05] MEDS: DAPTOmycin 650 MG in SYRINGE 0 ML IV SCH (17:48)
[2021-01-05] MEDS: MONTELUKAST SODIUM 10 MG TABLET PO SCH (21:32)
[2021-01-05] MEDS: HEPARIN SOD 5,000 UNIT/0.5 ML VIAL SQ SCH (21:34)
[2021-01-05] MEDS: SENNA 8.6 MG TAB PO SCH (21:36)
[2021-01-05] MEDS: ATORVASTATIN 40 MG TAB PO SCH (22:23)
[2021-01-06] MEDS: HEPARIN SOD 5,000 UNIT/0.5 ML VIAL SQ SCH ×3 (05:47→20:09)
[2021-01-06] MEDS: ACETAMINOPHEN 500 MG TAB PO SCH ×3 (05:48→20:07)
[2021-01-06] MEDS: oxyCODONE HCL IR 5 MG TAB (IMMEDIATE RELEASE) PO PRN ×2 (05:51→17:54)
[2021-01-06] MEDS: INSULIN GLARGINE SOLOSTAR 100 UNITS/ML 3 ML PEN SC SCH ×2 (08:36→20:41)
[2021-01-06] MEDS: INSULIN ASPART 100 UNITS/ML 3 ML PEN SC SCH ×4 (08:36→20:40)
[2021-01-06] MEDS: PANTOprazole 40 MG TAB PO SCH (08:38)
[2021-01-06] MEDS: FERROUS SULFATE 325 MG TAB PO SCH ×2 (08:39→17:42)
[2021-01-06] MEDS: POTASSIUM CHLORIDE CRTAB 20 MEQ TABCR PO SCH (08:39)
[2021-01-06] MEDS: GABAPENTIN 300 MG CAP PO SCH ×3 (08:39→20:06)
[2021-01-06] MEDS: DOCUSATE SODIUM 100 MG CAP PO SCH ×2 (08:39→20:01)
[2021-01-06] MEDS: MULTIVITAMIN TAB PO SCH (08:40)
[2021-01-06] MEDS: lisinopril 10 MG TAB PO SCH (08:40)
[2021-01-06] MEDS: carvediloL 12.5 MG TAB PO SCH ×2 (08:40→17:41)
[2021-01-06] MEDS: SERTRALINE HCL 100 MG TABLET PO SCH (08:41)
[2021-01-06] MEDS: DULoxetine HCL 60 MG CAP PO SCH (08:41)
[2021-01-06] MEDS: BUMETANIDE 1 MG TAB PO SCH (08:41)
[2021-01-06] MEDS: CHOLECALCIFEROL 1,000 UNITS 25 MCG TAB PO SCH (08:41)
[2021-01-06] MEDS: TAMSULOSIN HCL 0.4 MG CAP PO SCH (08:41)
[2021-01-06] MEDS: UMECLIDINIUM/VILANTEROL 62.5/25MCG 7 PUFFS/INHALER INH SCH (08:42)
[2021-01-06] MEDS: amLODIPine BESYLATE 5 MG TAB PO SCH (08:42)
--- NOTE | 2021-01-06 08:51 | Progress Notes ---
DATE OF SERVICE: 01/06/2021. SUBJECTIVE: A 65-year-old gentleman postop day 4 from a repeat I and D of a right infected hand incl uding osteomyelitis, septic arthritis, and infected tenosynovitis. He is making gradual improvements . Less pain. Less swelling. OBJECTIVE: VITAL SIGNS: Temperature 36.6. Vital signs are stable. GENERAL: Pleasant middle-aged male. Just looks more comfortable. EXTREMITIES: Examination of the right hand reveals the swelling to be improved. Still has some redn ess and swelling of his long finger particularly, but improving. He can slightly flex and extend his fingers. He is neurologically intact. LABORATORY DATA: No labs today. ASSESSMENT: A 65-year-old gentleman now status post I and D of a hand infection x2 with septic arthr itis, osteomyelitis, infected tenosynovitis. He is making significant improvements over the past cou ple of days. Hand is looking better. Pain is improved. PLAN: At this point, we would recommend to continue antibiotics. I think ID has recommended 6 weeks of IV antibiotics and that seems appropriate. He may need some oral antibiotics after that. He is going to need routine wound care by the wound care center for the wound VAC management of the dorsal hand wound. He will need a PICC line or some type of IV access. From the Orthopedics standpoint, he can be discharged anytime. I am not sure what his home environment is like and I am not sure it is s afe to send him back into a home environment considering his situation. We will have health care social worker work on that. I need to see him back in about 2 weeks. Any orthopedic questions can be directed to me at [phone]. I am going to order some therapy for some finger range of motion. Job ID: [id number]
[2021-01-06 09:36] LABS: Hemoglobin 7.5 g/dL (14.0-18.0); Mean Corpuscular Hemoglobin 27.9 pg (25-34); Mean Corpuscular Hgb Conc 31.3 g/dL (32-36); Mean Corpuscular Volume 89.2 fL (80-100); Platelet Count 316 K/uL (130-400); RDW Coefficient of Variation 15.3 % (11.5-14.5); RDW Standard Deviation 50.1 fL (36.4-46.3); Red Blood Count 2.69 M/uL (4.7-6.1); White Blood Count 9.18 K/uL (4.8-10.8)
[2021-01-06 10:04] LABS: BUN Creatinine Ratio 15.2 (10-20); Calcium 9.7 mg/dl (8.5-10.1); Creatinine Clr Calc Pharmacy 92.7 ml/min; Est GFR (African American) 69.9 ml/min; Est GFR (Non-African American) 60.3 ml/min
[2021-01-06] MEDS: DAPTOmycin 650 MG in SYRINGE 0 ML IV SCH (16:13)
[2021-01-06] MEDS: HYDROmorphone INJ 0.5 MG/0.5 ML SYR IV PRN (19:59)
[2021-01-06] MEDS: MONTELUKAST SODIUM 10 MG TABLET PO SCH (20:07)
[2021-01-06] MEDS: SENNA 8.6 MG TAB PO SCH (20:10)
--- NOTE | 2021-01-06 20:26 | Hospitalist Progress Note ---
Date of Service January 06, 2021 Assessment & Plan (1) Osteomyelitis of right hand: (2) Abscess of hand, right: (3) Septic arthritis of hand, right: Plan: -s/p I&D right dorsal hand abscess and third MCP joint septic arthritis by Dr. Stephens on 12/31 - s/p washout on 01/03 - s/p right hand wound vac in place Although infectious disease saw the patient and recommended daptomycin for total of 6 weeks for MRSA, there has been an issue with cost associated with daptomyci n and placement of this patient into a rehab facility. Therefore, we will switch to vancomycin in an effort to discharge him sooner and decrease unnecessary hospital days.Will need PICC prior to discharge. Otherwise continue postoperative management per Ortho. (4) Postoperative anemia: Plan: S/P 1 Unit on 01/01. Remains anemic, continue to monitor closely for need of additional blood products. (5) Chronic respiratory failure with hypoxia: Plan: chronically on oxygen supplementation and at his baseline. (6) COPD (chronic obstructive pulmonary disease): Plan: Currently on roughly 2 L of nasal cannula oxygen. Chronic, stable, not in exacerbation. (7) History of COVID-19: Plan: -received aggressive treatment in October 2020 -continues to test positive, no acute issues, not on isolation (8) Chronic diastolic CHF (congestive heart failure): Plan: -appears euvolemic, continue Bumex per home regimen. (9) Diabetes mellitus, type II: Plan: -hgb a1c 7.1 11/2020 -blood sugars controlled -Lantus and Novolog (10) Hypertension: Plan: -BP controlled, continue Lisinopril, Coreg, Bumex per home regimen. (11) Morbid obesity: (12) DVT prophylaxis: Plan: Heparin Full Code Dispo-to rehab once there is a facility that accepts his IV antibiotic. [facility] won't take him back because of poor motivation. Other facilities thought the daptomycin was too expensive. Switching to vancomycin as [facility] reportedly is able to manage vanc levels over the desired amount of time. Neha Mittal DO [facility] Hospitalist Admission and Anticipated Discharge Date Admission Date: December 30, 2020 Subjective Patient continues to report pain in his right hand but states this is improved with decreased swelling and increased range of motion of the fingers. He denies any other symptoms at this time including no chest pain, abdominal pain. He is tolerating p.o. Denies shortness of breath, fevers, chills. We discussed his disposition to a rehab center and that the antibiotic was posing an issue from a cost standpoint. This will be switched. Review of Systems Review of Systems: All systems were reviewed and negative except as indicated in HPI above. Physical Exam Physical Exam: CONSTITUTIONAL: obese, vitals as above, generally ill- appearing EYES: normal conjunctivae, no scleral icterus ENT: external ear and nose normal, MMM RESPIRATORY: clear to auscultation bilaterally, no crackles, rales or wheezes, normal respiratory effort CARDIOVASCULAR: regular rate and rhythm, S1 and 2 heard without murmurs, gallops or rubs, no JVD, no peripheral edema CHEST: inspection of chest was normal GASTROINTESTINAL: soft, nontender, nondistended, protuberant abdomen. MUSCULOSKELETAL: generalized weakness, head is normocephalic and atraumatic, R wrist bandaging. Fingers appears less swollen and there is some range of motion of the digits. SKIN: warm and dry NEUROLOGIC: CN 2-12 grossly intact, no sensory deficit, normal cognition, nor mal speech, no tremor. PSYCHIATRIC: alert cooperative and oriented to person, place and time. Results & Data Results & Data ([facility]) Vital Signs (Past 12 Hours) Vital Signs Temp Pulse Resp BP Pulse Ox 01/06/21 14:42 36.5 C 71 16 135/79 100 Laboratory Results Short CBC 01/06/21 Range/Units 09:20 WBC 9.18 (4.8-10.8) K/uL Hgb 7.5 L (14.0-18.0) g/dL Hct 24.0 L (42-52) % Plt Count 316 (130-400) K/uL BMP 01/06/21 09:20 Sodium 139 Potassium 4.0 Chloride 103 Carbon Dioxide 30 BUN 19 H Creatinine 1.26 Glucose 143 H Calcium 9.7 Medications Administered Current Inpatient Medications Acetaminophen (Acetaminophen 500 Mg Tab) 1,000 mg PO Q8H [facility] Stop: 01/30/21 21:59 Last Admin: 01/06/21 20:07 Dose: 1,000 mg Documented by: Albuterol (Albuterol Hfa 8 Gm Inhaler) 1 puffs INH Q4R PRN PRN Reason: Wheezing Stop: 02/03/21 14:59 Amlodipine Besylate (Amlodipine Besylate 5 Mg Tab) 10 mg PO DAILY [facility] Stop: 01/30/21 08:59 Last Admin: 01/06/21 08:42 Dose: 10 mg Documented by: Atorvastatin Calcium (Atorvastatin 40 Mg Tab) 40 mg PO HS [facility] Stop: 01/29/21 20:59 Last Admin: 01/05/21 22:23 Dose: 40 mg Documented by: Bisacodyl (Bisacodyl 10 Mg Supp) 10 mg MA DAILY PRN PRN Reason: Constipation Stop: 01/30/21 10:14 Bumetanide (Bumetanide 1 Mg Tab) 2 mg PO DAILY [facility] Stop: 01/30/21 08:59 Last Admin: 01/06/21 08:41 Dose: 2 mg Documented by: Carvedilol (Carvedilol 12.5 Mg Tab) 12.5 mg PO BIDM [facility] Stop: 01/29/21 16:59 Last Admin: 01/06/21 17:41 Dose: 12.5 mg Documented by: Dextrose (Dextrose 50% 50 Ml Syringe) 25 - 50 ml IV UD PRN; Protocol PRN Reason: Hypoglycemia Protocol Stop: 01/29/21 15:02 Docusate Sodium (Docusate Sodium 100 Mg Cap) 100 mg PO BID PRN PRN Reason: Constipation Stop: 01/29/21 15:02 Docusate Sodium (Docusate Sodium 100 Mg Cap) 100 mg PO BID [facility] Stop: 01/30/21 20:59 Last Admin: 01/06/21 20:01 Dose: 100 mg Documented by: Duloxetine HCl (Duloxetine Hcl 60 Mg Cap) 60 mg PO DAILY [facility] Stop: 01/30/21 08:59 Last Admin: 01/06/21 08:41 Dose: 60 mg Documented by: Ferrous Sulfate (Ferrous Sulfate 325 Mg Tab) 325 mg PO BIDM [facility] Stop: 01/29/21 16:59 Last Admin: 01/06/21 17:42 Dose: 325 mg Documented by: Gabapentin (Gabapentin 300 Mg Cap) 300 mg PO TID [facility] Stop: 01/30/21 13:59 Last Admin: 01/06/21 20:06 Dose: 300 mg Documented by: Glucagon (Glucagon For Inj 1 Mg Vial) 1 mg SQ UD PRN; Protocol PRN Reason: Hypoglycemia Protocol Stop: 01/29/21 15:02 Glucose (Glucose 10 Tabs/Tube) 4 - 8 tabs PO UD PRN; Protocol PRN Reason: Hypoglycemia Protocol Stop: 01/29/21 15:02 Glucose (Glucose 40% Gel 15 Gm Tube) 15 - 30 gm PO UD PRN; Protocol PRN Reason: Hypoglycemia Protocol Stop: 01/29/21 15:02 Heparin Sodium (Porcine) (Heparin Sod 5,000 Unit/0.5 Ml Vial) 7,500 units SQ Q8 [facility] Stop: 01/29/21 15:02 Last Admin: 01/06/21 20:09 Dose: 7,500 units Documented by: Hydromorphone HCl (Hydromorphone Inj 0.5 Mg/0.5 Ml Syr) 0.5 mg IV Q6H PRN PRN Reason: Severe Pain Stop: 01/14/21 17:59 Last Admin: 01/06/21 19:59 Dose: 0.5 mg Documented by: Daptomycin 650 mg/ Syringe 13 mls @ 5 mls/min IV Q24H [facility]; Protocol Stop: 01/08/21 15:59 Last Admin: 01/06/21 16:13 Dose: 5 mls/min Documented by: Insulin Aspart (Insulin Aspart 100 Units/Ml 3 Ml Pen) 0 units SC ACHS [facility] Stop: 02/02/21 16:29 Last Admin: 01/06/21 17:38 Dose: 9 units Documented by: Insulin Glargine (Insulin Glargine Solostar 100 Units/Ml 3 Ml Pen) 15 units SC BID [facility] Stop: 01/29/21 20:59 Last Admin: 01/06/21 08:36 Dose: 15 units Documented by: Lisinopril (Lisinopril 10 Mg Tab) 10 mg PO QAM [facility] Stop: 01/30/21 08:59 Last Admin: 01/06/21 08:40 Dose: 10 mg Documented by: Magnesium Hydroxide (Magnesium Hydroxide Susp 30 Ml Udc) 30 ml PO Q6H PRN PRN Reason: Constipation Stop: 01/30/21 10:14 Metoclopramide HCl (Metoclopramide Hcl Inj 5 Mg/Ml 2 Ml Vial) 10 mg IV Q6H PRN PRN Reason: Nausea And Vomiting Stop: 01/30/21 10:14 Miscellaneous (Carbohydrates For Hypoglycemia ) 15 - 30 gm PO UD PRN PRN Reason: Hypoglycemia Protocol Stop: 01/29/21 15:02 Miscellaneous Information (Daptomycin Consult Active) 1 ea N/A UD PRN PRN Reason: Consult Stop: 01/30/21 12:14 Montelukast Sodium (Montelukast Sodium 10 Mg Tablet) 10 mg PO HS [facility] Stop: 01/29/21 20:59 Last Admin: 01/06/21 20:07 Dose: 10 mg Documented by: Multivitamins (Multivitamin Tab) 1 tab PO QAM [facility] Stop: 01/31/21 08:59 Last Admin: 01/06/21 08:40 Dose: 1 tab Documented by: Naloxone HCl (Naloxone Hcl 0.4 Mg/1 Ml Vial/Carp) 0.1 mg IV Q5M PRN PRN Reason: Oversedation/Resp Depression Stop: 01/30/21 10:14 Ondansetron HCl (Ondansetron Inj 2 Mg/Ml 2 Ml Vial) 4 mg IV Q6H PRN PRN Reason: Nausea And Vomiting Stop: 01/30/21 10:14 Oxycodone HCl (Oxycodone Hcl Ir 5 Mg Tab (Immediate Release)) 5 mg PO Q6H PRN PRN Reason: Pain Stop: 01/14/21 11:07 Last Admin: 01/06/21 17:54 Dose: 5 mg Documented by: Pantoprazole Sodium (Pantoprazole 40 Mg Tab) 40 mg PO DAILY [facility] Stop: 01/30/21 08:59 Last Admin: 01/06/21 08:38 Dose: 40 mg Documented by: Polyethylene Glycol (Polyethylene (Miralax) 17 Gm Pack) 17 gm PO DAILY PRN PRN Reason: Constipation Stop: 01/29/21 15:02 Potassium Chloride (Potassium Chloride Crtab 20 Meq Tabcr) 20 meq PO DAILY [facility] Stop: 01/30/21 08:59 Last Admin: 01/06/21 08:39 Dose: 20 meq Documented by: Senna/Docusate Sodium (Docusate Sodium/Senna 50/8.6mg Tab) 1 tab PO QDL PRN PRN Reason: Constipation Stop: 01/29/21 15:02 Sennosides (Senna 8.6 Mg Tab) 17.2 mg PO HS [facility] Stop: 01/30/21 20:59 Last Admin: 01/06/21 20:10 Dose: 17.2 mg Documented by: Sertraline HCl (Sertraline Hcl 100 Mg Tablet) 100 mg PO DAILY [facility] Stop: 01/30/21 08:59 Last Admin: 01/06/21 08:41 Dose: 100 mg Documented by: Tamsulosin HCl (Tamsulosin Hcl 0.4 Mg Cap) 0.8 mg PO DAILY [facility] Stop: 01/30/21 08:59 Last Admin: 01/06/21 08:41 Dose: 0.8 mg Documented by: Umeclidinium/Vilanterol (Umeclidinium/Vilanterol 62.5/25mcg 7 Puffs/Inhaler) 1 puffs INH DAILY [facility] Stop: 01/30/21 08:59 Last Admin: 01/06/21 08:42 Dose: 1 puffs Documented by: Vitamin D (Cholecalciferol 1,000 Units 25 Mcg Tab) 2,000 units PO DAILY [facility] Stop: 01/30/21 08:59 Last Admin: 01/06/21 08:41 Dose: 2,000 units Documented by:
[2021-01-06] MEDS ORDERED: CONSULT PHARMACY STA (23:09)
[2021-01-07] MEDS: oxyCODONE HCL IR 5 MG TAB (IMMEDIATE RELEASE) PO PRN ×2 (00:45→20:17)
[2021-01-07] MEDS: ACETAMINOPHEN 500 MG TAB PO SCH ×3 (05:43→21:13)
[2021-01-07] MEDS: HEPARIN SOD 5,000 UNIT/0.5 ML VIAL SQ SCH ×3 (05:44→21:13)
--- NOTE | 2021-01-07 07:48 | Orthopedic Progress Note ---
Date of Service January 07, 2021 Assessment & Plan (1) Septic arthritis of hand, right: Haim is now postop day #5 from an open I&D of the right hand and an I&D of a flexor tenosynovitis. There is a wound VAC on the dorsal side and soft dressing on the palmar side. He is currently on IV antibiotics. Infectious disease is recommending 6 weeks of IV antibiotics and then likely an oral course of antibiotics. He is started physical therapy for range of motion of his hand. He can have daily dry dressing changes to the right hand and wound care can handle wound VAC management. He is orthopedically stable for discharge when medically ready. He can follow-up with Dr. Stephens in the office in 2 weeks. Subjective Haim was seen and examined at bedside this morning. He says he is having a little bit more pain in his hand today. He is having some pain in the palm. He was sleeping when I initially entered the room. Overall he says not much different than it was yesterday. He is getting the IV antibiotics.. Review of Systems All systems reviewed & are unremarkable except as noted in HPI & below. Physical Exam On physical examination of the right hand, there is a wound VAC on the dorsal aspect of the soft dressing on the palmar side. I looked beneath the dressing and the incisions look good. He has some swelling of his long finger and he can make about 30% of the full fist. He has some pain in the palm of his hand.. Results & Data Results & Data Laboratory Results . Diagnostic Findings . PG Care Time/CCT Total # of Minutes Spent Total Time Spent with Patient: Total time spent is greater than 50% in coordination of care (as documented) at patient's floor/unit and/or counseling patient: Coding Level of Care Code 48837 Post Operative Follow-Up Diagnoses Septic arthritis of hand, right M00.9
[2021-01-07] MEDS: UMECLIDINIUM/VILANTEROL 62.5/25MCG 7 PUFFS/INHALER INH SCH (09:05)
[2021-01-07] MEDS: FERROUS SULFATE 325 MG TAB PO SCH ×2 (09:05→17:53)
[2021-01-07] MEDS: TAMSULOSIN HCL 0.4 MG CAP PO SCH (09:05)
[2021-01-07] MEDS: POTASSIUM CHLORIDE CRTAB 20 MEQ TABCR PO SCH (09:06)
[2021-01-07] MEDS: CHOLECALCIFEROL 1,000 UNITS 25 MCG TAB PO SCH (09:06)
[2021-01-07] MEDS: PANTOprazole 40 MG TAB PO SCH (09:06)
[2021-01-07] MEDS: DULoxetine HCL 60 MG CAP PO SCH (09:06)
[2021-01-07] MEDS: GABAPENTIN 300 MG CAP PO SCH ×3 (09:07→20:10)
[2021-01-07] MEDS: MULTIVITAMIN TAB PO SCH (09:07)
[2021-01-07] MEDS: SERTRALINE HCL 100 MG TABLET PO SCH (09:07)
[2021-01-07] MEDS: DOCUSATE SODIUM 100 MG CAP PO SCH ×2 (09:08→20:10)
[2021-01-07] MEDS: carvediloL 12.5 MG TAB PO SCH ×2 (09:08→17:53)
[2021-01-07] MEDS: amLODIPine BESYLATE 5 MG TAB PO SCH (09:09)
[2021-01-07] MEDS: BUMETANIDE 1 MG TAB PO SCH (09:09)
[2021-01-07] MEDS: INSULIN GLARGINE SOLOSTAR 100 UNITS/ML 3 ML PEN SC SCH ×2 (09:10→21:15)
[2021-01-07] MEDS: INSULIN ASPART 100 UNITS/ML 3 ML PEN SC SCH ×4 (09:11→21:14)
[2021-01-07] MEDS: lisinopril 10 MG TAB PO SCH (09:12)
[2021-01-07] MEDS: DAPTOmycin 650 MG in SYRINGE 0 ML IV SCH (16:14)
--- NOTE | 2021-01-07 17:24 | Hospitalist Progress Note ---
Date of Service January 07, 2021 Assessment & Plan (1) Osteomyelitis of right hand: (2) Abscess of hand, right: (3) Septic arthritis of hand, right: Plan: -s/p I&D right dorsal hand abscess and third MCP joint septic arthritis by Dr. Stephens on 12/31 - s/p washout on 01/03 - s/p right hand wound vac in place Although infectious disease saw the patient and recommended daptomycin for total of 6 weeks for MRSA, there has been an issue with cost associated with daptomyci n and placement of this patient into a rehab facility. Initially felt that switch to vancomycin would be reasonable given the lower cost. However, after discussing this with the pharmacists at [facility], following levels in a facility in someone this size would be potentially frought with areas and large opportunities for him to become subtherapeutic. (4) Postoperative anemia: Plan: S/P 1 Unit on 01/01. Remains anemic, continue to monitor closely for need of additional blood products. (5) Chronic respiratory failure with hypoxia: Plan: chronically on oxygen supplementation and at his baseline. (6) COPD (chronic obstructive pulmonary disease): Plan: Currently on roughly 2 L of nasal cannula oxygen. Chronic, stable, not in exacerbation. (7) History of COVID-19: Plan: -received aggressive treatment in October 2020 -continues to test positive, no acute issues, not on isolation (8) Chronic diastolic CHF (congestive heart failure): Plan: -appears euvolemic, continue Bumex per home regimen. (9) Diabetes mellitus, type II: Plan: -hgb a1c 7.1 11/2020 -blood sugars controlled -Lantus and Novolog (10) Hypertension: Plan: -BP controlled, continue Lisinopril, Coreg, Bumex per home regimen. (11) Morbid obesity: (12) DVT prophylaxis: Plan: Heparin Full Code Dispo-to rehab once there is a facility that accepts his IV antibiotic. Neha Mittal DO [facility] Hospitalist Admission and Anticipated Discharge Date Admission Date: December 30, 2020 Subjective 65 yo M s/p washout x 2 of right hand MRSA septic arthritis with suspected osteomyelitis. reports pain denies issues with food and heartily eating dinner. denies issues with breathing. denies chest pain Review of Systems Review of Systems: All systems were reviewed and negative except as indicated in HPI above. Physical Exam Physical Exam: CONSTITUTIONAL: obese, vitals as above, generally ill- appearing EYES: normal conjunctivae, no scleral icterus ENT: external ear and nose normal, MMM RESPIRATORY: clear to auscultation bilaterally, no crackles, rales or wheezes, normal respiratory effort CARDIOVASCULAR: regular rate and rhythm, S1 and 2 heard without murmurs, gallops or rubs, no JVD, no peripheral edema CHEST: inspection of chest was normal GASTROINTESTINAL: soft, nontender, nondistended, protuberant abdomen. MUSCULOSKELETAL: generalized weakness, head is normocephalic and atraumatic, R wrist bandaging. Fingers appears less swollen and there is some range of motion of the digits. SKIN: warm and dry NEUROLOGIC: CN 2-12 grossly intact, no sensory deficit, normal cognition, normal speech, no tremor. PSYCHIATRIC: alert cooperative and oriented to person, place and time. Results & Data Results & Data ([facility]) Vital Signs (Past 12 Hours) Vital Signs Temp Pulse Resp BP BP Pulse Ox 01/07/21 16:07 36.5 C 75 16 124/71 98 01/07/21 08:21 36.9 C 68 16 157/85 H 98 Medications Administered Current Inpatient Medications Acetaminophen (Acetaminophen 500 Mg Tab) 1,000 mg PO Q8H [facility] Stop: 01/30/21 21:59 Last Admin: 01/07/21 13:55 Dose: 1,000 mg Documented by: Albuterol (Albuterol Hfa 8 Gm Inhaler) 1 puffs INH Q4R PRN PRN Reason: Wheezing Stop: 02/03/21 14:59 Amlodipine Besylate (Amlodipine Besylate 5 Mg Tab) 10 mg PO DAILY [facility] Stop: 01/30/21 08:59 Last Admin: 01/07/21 09:09 Dose: 10 mg Documented by: Atorvastatin Calcium (Atorvastatin 40 Mg Tab) 40 mg PO HS [facility] Stop: 01/29/21 20:59 Last Admin: 01/05/21 22:23 Dose: 40 mg Documented by: Bisacodyl (Bisacodyl 10 Mg Supp) 10 mg SD DAILY PRN PRN Reason: Constipation Stop: 01/30/21 10:14 Bumetanide (Bumetanide 1 Mg Tab) 2 mg PO DAILY [facility] Stop: 01/30/21 08:59 Last Admin: 01/07/21 09:09 Dose: 2 mg Documented by: Carvedilol (Carvedilol 12.5 Mg Tab) 12.5 mg PO BIDM [facility] Stop: 01/29/21 16:59 Last Admin: 01/07/21 09:08 Dose: 12.5 mg Documented by: Dextrose (Dextrose 50% 50 Ml Syringe) 25 - 50 ml IV UD PRN; Protocol PRN Reason: Hypoglycemia Protocol Stop: 01/29/21 15:02 Docusate Sodium (Docusate Sodium 100 Mg Cap) 100 mg PO BID PRN PRN Reason: Constipation Stop: 01/29/21 15:02 Docusate Sodium (Docusate Sodium 100 Mg Cap) 100 mg PO BID [facility] Stop: 01/30/21 20:59 Last Admin: 01/07/21 09:08 Dose: 100 mg Documented by: Duloxetine HCl (Duloxetine Hcl 60 Mg Cap) 60 mg PO DAILY [facility] Stop: 01/30/21 08:59 Last Admin: 01/07/21 09:06 Dose: 60 mg Documented by: Ferrous Sulfate (Ferrous Sulfate 325 Mg Tab) 325 mg PO BIDM [facility] Stop: 01/29/21 16:59 Last Admin: 01/07/21 09:05 Dose: 325 mg Documented by: Gabapentin (Gabapentin 300 Mg Cap) 300 mg PO TID [facility] Stop: 01/30/21 13:59 Last Admin: 01/07/21 13:55 Dose: 300 mg Documented by: Glucagon (Glucagon For Inj 1 Mg Vial) 1 mg SQ UD PRN; Protocol PRN Reason: Hypoglycemia Protocol Stop: 01/29/21 15:02 Glucose (Glucose 10 Tabs/Tube) 4 - 8 tabs PO UD PRN; Protocol PRN Reason: Hypoglycemia Protocol Stop: 01/29/21 15:02 Glucose (Glucose 40% Gel 15 Gm Tube) 15 - 30 gm PO UD PRN; Protocol PRN Reason: Hypoglycemia Protocol Stop: 01/29/21 15:02 Heparin Sodium (Porcine) (Heparin Sod 5,000 Unit/0.5 Ml Vial) 7,500 units SQ Q8 [facility] Stop: 01/29/21 15:02 Last Admin: 01/07/21 13:54 Dose: 7,500 units Documented by: Hydromorphone HCl (Hydromorphone Inj 0.5 Mg/0.5 Ml Syr) 0.5 mg IV Q6H PRN PRN Reason: Severe Pain Stop: 01/14/21 17:59 Last Admin: 01/06/21 19:59 Dose: 0.5 mg Documented by: Daptomycin 650 mg/ Syringe 13 mls @ 5 mls/min IV Q24H [facility]; Protocol Stop: 01/08/21 15:59 Last Admin: 01/07/21 16:14 Dose: 5 mls/min Documented by: Insulin Aspart (Insulin Aspart 100 Units/Ml 3 Ml Pen) 0 units SC ACHS [facility] Stop: 02/02/21 16:29 Last Admin: 01/07/21 12:55 Dose: 8 units Documented by: Insulin Glargine (Insulin Glargine Solostar 100 Units/Ml 3 Ml Pen) 15 units SC BID [facility] Stop: 01/29/21 20:59 Last Admin: 01/07/21 09:10 Dose: 15 units Documented by: Lisinopril (Lisinopril 10 Mg Tab) 10 mg PO QAM [facility] Stop: 01/30/21 08:59 Last Admin: 01/07/21 09:12 Dose: 10 mg Documented by: Magnesium Hydroxide (Magnesium Hydroxide Susp 30 Ml Udc) 30 ml PO Q6H PRN PRN Reason: Constipation Stop: 01/30/21 10:14 Metoclopramide HCl (Metoclopramide Hcl Inj 5 Mg/Ml 2 Ml Vial) 10 mg IV Q6H PRN PRN Reason: Nausea And Vomiting Stop: 01/30/21 10:14 Miscellaneous (Carbohydrates For Hypoglycemia ) 15 - 30 gm PO UD PRN PRN Reason: Hypoglycemia Protocol Stop: 01/29/21 15:02 Miscellaneous Information (Daptomycin Consult Active) 1 ea N/A UD PRN PRN Reason: Consult Stop: 01/30/21 12:14 Montelukast Sodium (Montelukast Sodium 10 Mg Tablet) 10 mg PO HS [facility] Stop: 01/29/21 20:59 Last Admin: 01/06/21 20:07 Dose: 10 mg Documented by: Multivitamins (Multivitamin Tab) 1 tab PO QAM [facility] Stop: 01/31/21 08:59 Last Admin: 01/07/21 09:07 Dose: 1 tab Documented by: Naloxone HCl (Naloxone Hcl 0.4 Mg/1 Ml Vial/Carp) 0.1 mg IV Q5M PRN PRN Reason: Oversedation/Resp Depression Stop: 01/30/21 10:14 Ondansetron HCl (Ondansetron Inj 2 Mg/Ml 2 Ml Vial) 4 mg IV Q6H PRN PRN Reason: Nausea And Vomiting Stop: 01/30/21 10:14 Oxycodone HCl (Oxycodone Hcl Ir 5 Mg Tab (Immediate Release)) 5 mg PO Q6H PRN PRN Reason: Pain Stop: 01/14/21 11:07 Last Admin: 01/07/21 00:45 Dose: 5 mg Documented by: Pantoprazole Sodium (Pantoprazole 40 Mg Tab) 40 mg PO DAILY [facility] Stop: 01/30/21 08:59 Last Admin: 01/07/21 09:06 Dose: 40 mg Documented by: Polyethylene Glycol (Polyethylene (Miralax) 17 Gm Pack) 17 gm PO DAILY PRN PRN Reason: Constipation Stop: 01/29/21 15:02 Potassium Chloride (Potassium Chloride Crtab 20 Meq Tabcr) 20 meq PO DAILY [facility] Stop: 01/30/21 08:59 Last Admin: 01/07/21 09:06 Dose: 20 meq Documented by: Senna/Docusate Sodium (Docusate Sodium/Senna 50/8.6mg Tab) 1 tab PO QDL PRN PRN Reason: Constipation Stop: 01/29/21 15:02 Sennosides (Senna 8.6 Mg Tab) 17.2 mg PO HS [facility] Stop: 01/30/21 20:59 Last Admin: 01/06/21 20:10 Dose: 17.2 mg Documented by: Sertraline HCl (Sertraline Hcl 100 Mg Tablet) 100 mg PO DAILY [facility] Stop: 01/30/21 08:59 Last Admin: 01/07/21 09:07 Dose: 100 mg Documented by: Tamsulosin HCl (Tamsulosin Hcl 0.4 Mg Cap) 0.8 mg PO DAILY [facility] Stop: 01/30/21 08:59 Last Admin: 01/07/21 09:05 Dose: 0.8 mg Documented by: Umeclidinium/Vilanterol (Umeclidinium/Vilanterol 62.5/25mcg 7 Puffs/Inhaler) 1 puffs INH DAILY [facility] Stop: 01/30/21 08:59 Last Admin: 01/07/21 09:05 Dose: 1 puffs Documented by: Vitamin D (Cholecalciferol 1,000 Units 25 Mcg Tab) 2,000 units PO DAILY [facility] Stop: 01/30/21 08:59 Last Admin: 01/07/21 09:06 Dose: 2,000 units Documented by:
[2021-01-07] MEDS: MONTELUKAST SODIUM 10 MG TABLET PO SCH (20:11)
[2021-01-07] MEDS: SENNA 8.6 MG TAB PO SCH (20:12)
[2021-01-08] MEDS: ACETAMINOPHEN 500 MG TAB PO SCH ×3 (05:57→21:10)
[2021-01-08] MEDS: HEPARIN SOD 5,000 UNIT/0.5 ML VIAL SQ SCH ×3 (05:58→21:11)
[2021-01-08 06:12] LABS: Hematocrit (blood only) 25.3 % (42-52); Hemoglobin 7.9 g/dL (14.0-18.0); Mean Corpuscular Hemoglobin 27.3 pg (25-34); Mean Corpuscular Hgb Conc 31.2 g/dL (32-36); Mean Corpuscular Volume 87.5 fL (80-100); Mean Platelet Volume 8.7 fL (7.4-10.4); Platelet Count 311 K/uL (130-400); RDW Coefficient of Variation 15.3 % (11.5-14.5); RDW Standard Deviation 49.8 fL (36.4-46.3); Red Blood Count 2.89 M/uL (4.7-6.1)
[2021-01-08 06:48] LABS: BUN Creatinine Ratio 16.7 (10-20); Calcium 9.7 mg/dl (8.5-10.1); Est GFR (African American) 62.1 ml/min; Est GFR (Non-African American) 53.6 ml/min; Potassium 3.8 mmol/L (3.5-5.1)
[2021-01-08] MEDS: INSULIN ASPART 100 UNITS/ML 3 ML PEN SC SCH ×4 (09:57→21:08)
[2021-01-08] MEDS: GABAPENTIN 300 MG CAP PO SCH ×3 (09:58→21:08)
[2021-01-08] MEDS: DOCUSATE SODIUM 100 MG CAP PO SCH ×2 (09:58→21:07)
[2021-01-08] MEDS: TAMSULOSIN HCL 0.4 MG CAP PO SCH (09:58)
[2021-01-08] MEDS: lisinopril 10 MG TAB PO SCH (09:58)
[2021-01-08] MEDS: POTASSIUM CHLORIDE CRTAB 20 MEQ TABCR PO SCH (09:58)
[2021-01-08] MEDS: MULTIVITAMIN TAB PO SCH (09:58)
[2021-01-08] MEDS: amLODIPine BESYLATE 5 MG TAB PO SCH (09:59)
[2021-01-08] MEDS: DULoxetine HCL 60 MG CAP PO SCH (09:59)
[2021-01-08] MEDS: BUMETANIDE 1 MG TAB PO SCH (09:59)
[2021-01-08] MEDS: CHOLECALCIFEROL 1,000 UNITS 25 MCG TAB PO SCH (09:59)
[2021-01-08] MEDS: carvediloL 12.5 MG TAB PO SCH ×2 (09:59→17:59)
[2021-01-08] MEDS: FERROUS SULFATE 325 MG TAB PO SCH ×2 (10:00→17:59)
[2021-01-08] MEDS: INSULIN GLARGINE SOLOSTAR 100 UNITS/ML 3 ML PEN SC SCH ×2 (10:00→21:09)
[2021-01-08] MEDS: SERTRALINE HCL 100 MG TABLET PO SCH (10:00)
[2021-01-08] MEDS: UMECLIDINIUM/VILANTEROL 62.5/25MCG 7 PUFFS/INHALER INH SCH (10:00)
[2021-01-08] MEDS: PANTOprazole 40 MG TAB PO SCH (10:00)
[2021-01-08] MEDS: MONTELUKAST SODIUM 10 MG TABLET PO SCH (21:09)
[2021-01-08] MEDS: SENNA 8.6 MG TAB PO SCH (21:10)
[2021-01-08] MEDS: oxyCODONE HCL IR 5 MG TAB (IMMEDIATE RELEASE) PO PRN (21:15)
--- NOTE | 2021-01-08 21:52 | Hospitalist Progress Note ---
Date of Service January 08, 2021 Assessment & Plan (1) Osteomyelitis of right hand: (2) Abscess of hand, right: (3) Septic arthritis of hand, right: Plan: -s/p I&D right dorsal hand abscess and third MCP joint septic arthritis by Dr. Stephens on 12/31 - s/p washout on 01/03 - s/p right hand wound vac in place Although infectious disease saw the patient and recommended daptomycin for total of 6 weeks for MRSA, there has been an issue with cost associated with daptomyc in and placement of this patient into a rehab facility. Initially felt that switch to vancomycin would be reasonable given the lower cost. However, after discussing this with the pharmacists at [facility], following levels in a facility in someone this size would be potentially frought with areas and large opportunities for him to become subtherapeutic. Cont daptomycin. (4) Postoperative anemia: Plan: S/P 1 Unit on 01/01. Remains anemic, continue to monitor closely for need of additional blood products. (5) Chronic respiratory failure with hypoxia: Plan: chronically on oxygen supplementation and at his baseline. (6) COPD (chronic obstructive pulmonary disease): Plan: Currently on roughly 2 L of nasal cannula oxygen. Chronic, stable, not in exacerbation. (7) History of COVID-19: Plan: -received aggressive treatment in October 2020 -continues to test positive, no acute issues, not on isolation (8) Chronic diastolic CHF (congestive heart failure): Plan: -appears euvolemic, continue Bumex per home regimen. (9) Diabetes mellitus, type II: Plan: -hgb a1c 7.1 11/2020 -blood sugars controlled -Lantus and Novolog (10) Hypertension: Plan: -BP controlled, continue Lisinopril, Coreg, Bumex per home regimen. (11) Morbid obesity: (12) DVT prophylaxis: Plan: Heparin Full Code Dispo-to rehab once there is a facility that accepts his IV antibiotic. [facility] Admission and Anticipated Discharge Date Admission Date: December 30, 2020 Subjective 65 yo M s/p washout x 2 of right hand MRSA septic arthritis with suspected osteomyelitis. reports pain and swelling in right hand doesn't appears overly concerned, however, isn't interested in answering questions denies issues with breathing. denies chest pain Review of Systems Review of Systems: All systems were reviewed and negative except as indicated in HPI above. Physical Exam Physical Exam: CONSTITUTIONAL: obese, vitals as above, NAD EYES: normal conjunctivae, no scleral icterus ENT: external ear and nose normal, MMM RESPIRATORY: clear to auscultation bilaterally, no crackles, rales or wheezes, normal respiratory effort CARDIOVASCULAR: regular rate and rhythm, S1 and 2 heard without murmurs, gallops or rubs, no JVD, no peripheral edema CHEST: inspection of chest was normal GASTROINTESTINAL: soft, nontender, nondistended, protuberant abdomen. MUSCULOSKELETAL: generalized weakness, head is normocephalic and atraumatic, R wrist bandaging. Fingers appears less swollen and there is some range of motion of the digits. Wound vac to top of right hand. SKIN: warm and dry NEUROLOGIC: CN 2-12 grossly intact, no sensory deficit, normal cognition, normal speech, no tremor. PSYCHIATRIC: alert cooperative and oriented to person, place and time. Results & Data Results & Data ([facility]) Vital Signs (Past 12 Hours) Vital Signs Temp Pulse Resp BP Pulse Ox 01/08/21 15:53 36.5 C 72 18 103/68 95 Laboratory Results Short CBC 01/08/21 Range/Units 05:44 WBC 9.60 (4.8-10.8) K/uL Hgb 7.9 L (14.0-18.0) g/dL Hct 25.3 L (42-52) % Plt Count 311 (130-400) K/uL BMP 01/08/21 05:44 Sodium 139 Potassium 3.8 Chloride 100 Carbon Dioxide 34 H BUN 23 H Creatinine 1.39 Glucose 124 H Calcium 9.7 Cardiac Enzymes 01/08/21 Range/Units 05:44 Total Creatine Kinase 13 L (39-308) U/L Medications Administered Current Inpatient Medications Acetaminophen (Acetaminophen 500 Mg Tab) 1,000 mg PO Q8H ZOHAIB Stop: 01/30/21 21:59 Last Admin: 01/08/21 21:10 Dose: 1,000 mg Documented by: Albuterol (Albuterol Hfa 8 Gm Inhaler) 1 puffs INH Q4R PRN PRN Reason: Wheezing Stop: 02/03/21 14:59 Amlodipine Besylate (Amlodipine Besylate 5 Mg Tab) 10 mg PO DAILY ZOHAIB Stop: 01/30/21 08:59 Last Admin: 01/08/21 09:59 Dose: 10 mg Documented by: Atorvastatin Calcium (Atorvastatin 40 Mg Tab) 40 mg PO HS [facility] Stop: 01/29/21 20:59 Last Admin: 01/05/21 22:23 Dose: 40 mg Documented by: Bisacodyl (Bisacodyl 10 Mg Supp) 10 mg NH DAILY PRN PRN Reason: Constipation Stop: 01/30/21 10:14 Bumetanide (Bumetanide 1 Mg Tab) 2 mg PO DAILY ZOHAIB Stop: 01/30/21 08:59 Last Admin: 01/08/21 09:59 Dose: 2 mg Documented by: Carvedilol (Carvedilol 12.5 Mg Tab) 12.5 mg PO BIDM [facility] Stop: 01/29/21 16:59 Last Admin: 01/08/21 17:59 Dose: 12.5 mg Documented by: Dextrose (Dextrose 50% 50 Ml Syringe) 25 - 50 ml IV UD PRN; Protocol PRN Reason: Hypoglycemia Protocol Stop: 01/29/21 15:02 Docusate Sodium (Docusate Sodium 100 Mg Cap) 100 mg PO BID PRN PRN Reason: Constipation Stop: 01/29/21 15:02 Docusate Sodium (Docusate Sodium 100 Mg Cap) 100 mg PO BID [facility] Stop: 01/30/21 20:59 Last Admin: 01/08/21 21:07 Dose: 100 mg Documented by: Duloxetine HCl (Duloxetine Hcl 60 Mg Cap) 60 mg PO DAILY [facility]OHA[facility] Stop: 01/30/21 08:59 Last Admin: 01/08/21 09:59 Dose: 60 mg Documented by: Ferrous Sulfate (Ferrous Sulfate 325 Mg Tab) 325 mg PO BIDM [facility] Stop: 01/29/21 16:59 Last Admin: 01/08/21 17:59 Dose: 325 mg Documented by: Gabapentin (Gabapentin 300 Mg Cap) 300 mg PO TID [facility] Stop: 01/30/21 13:59 Last Admin: 01/08/21 21:08 Dose: 300 mg Documented by: Glucagon (Glucagon For Inj 1 Mg Vial) 1 mg SQ UD PRN; Protocol PRN Reason: Hypoglycemia Protocol Stop: 01/29/21 15:02 Glucose (Glucose 10 Tabs/Tube) 4 - 8 tabs PO UD PRN; Protocol PRN Reason: Hypoglycemia Protocol Stop: 01/29/21 15:02 Glucose (Glucose 40% Gel 15 Gm Tube) 15 - 30 gm PO UD PRN; Protocol PRN Reason: Hypoglycemia Protocol Stop: 01/29/21 15:02 Heparin Sodium (Porcine) (Heparin Sod 5,000 Unit/0.5 Ml Vial) 7,500 units SQ Q8 [facility]OH[facility] Stop: 01/29/21 15:02 Last Admin: 01/08/21 21:11 Dose: 7,500 units Documented by: Hydromorphone HCl (Hydromorphone Inj 0.5 Mg/0.5 Ml Syr) 0.5 mg IV Q6H PRN PRN Reason: Severe Pain Stop: 01/14/21 17:59 Last Admin: 01/06/21 19:59 Dose: 0.5 mg Documented by: Insulin Aspart (Insulin Aspart 100 Units/Ml 3 Ml Pen) 0 units SC ACHS [facility] Stop: 02/02/21 16:29 Last Admin: 01/08/21 21:08 Dose: Not Given Documented by: Insulin Glargine (Insulin Glargine Solostar 100 Units/Ml 3 Ml Pen) 15 units SC BID [facility] Stop: 01/29/21 20:59 Last Admin: 01/08/21 21:09 Dose: 15 units Documented by: Lisinopril (Lisinopril 10 Mg Tab) 10 mg PO QAM [facility] Stop: 01/30/21 08:59 Last Admin: 01/08/21 09:58 Dose: 10 mg Documented by: Magnesium Hydroxide (Magnesium Hydroxide Susp 30 Ml Udc) 30 ml PO Q6H PRN PRN Reason: Constipation Stop: 01/30/21 10:14 Metoclopramide HCl (Metoclopramide Hcl Inj 5 Mg/Ml 2 Ml Vial) 10 mg IV Q6H PRN PRN Reason: Nausea And Vomiting Stop: 01/30/21 10:14 Miscellaneous (Carbohydrates For Hypoglycemia ) 15 - 30 gm PO UD PRN PRN Reason: Hypoglycemia Protocol Stop: 01/29/21 15:02 Miscellaneous Information (Daptomycin Consult Active) 1 ea N/A UD PRN PRN Reason: Consult Stop: 01/30/21 12:14 Montelukast Sodium (Montelukast Sodium 10 Mg Tablet) 10 mg PO HS [facility] Stop: 01/29/21 20:59 Last Admin: 01/08/21 21:09 Dose: 10 mg Documented by: Multivitamins (Multivitamin Tab) 1 tab PO QAM [facility] Stop: 01/31/21 08:59 Last Admin: 01/08/21 09:58 Dose: 1 tab Documented by: Naloxone HCl (Naloxone Hcl 0.4 Mg/1 Ml Vial/Carp) 0.1 mg IV Q5M PRN PRN Reason: Oversedation/Resp Depression Stop: 01/30/21 10:14 Ondansetron HCl (Ondansetron Inj 2 Mg/Ml 2 Ml Vial) 4 mg IV Q6H PRN PRN Reason: Nausea And Vomiting Stop: 01/30/21 10:14 Oxycodone HCl (Oxycodone Hcl Ir 5 Mg Tab (Immediate Release)) 5 mg PO Q6H PRN PRN Reason: Pain Stop: 01/14/21 11:07 Last Admin: 01/08/21 21:15 Dose: 5 mg Documented by: Pantoprazole Sodium (Pantoprazole 40 Mg Tab) 40 mg PO DAILY [facility] Stop: 01/30/21 08:59 Last Admin: 01/08/21 10:00 Dose: 40 mg Documented by: Polyethylene Glycol (Polyethylene (Miralax) 17 Gm Pack) 17 gm PO DAILY PRN PRN Reason: Constipation Stop: 01/29/21 15:02 Potassium Chloride (Potassium Chloride Crtab 20 Meq Tabcr) 20 meq PO DAILY [facility]OHAIB Stop: 01/30/21 08:59 Last Admin: 01/08/21 09:58 Dose: 20 meq Documented by: Senna/Docusate Sodium (Docusate Sodium/Senna 50/8.6mg Tab) 1 tab PO QDL PRN PRN Reason: Constipation Stop: 01/29/21 15:02 Sennosides (Senna 8.6 Mg Tab) 17.2 mg PO HS [facility] Stop: 01/30/21 20:59 Last Admin: 01/08/21 21:10 Dose: 17.2 mg Documented by: Sertraline HCl (Sertraline Hcl 100 Mg Tablet) 100 mg PO DAILY [facility]OHAIB Stop: 01/30/21 08:59 Last Admin: 01/08/21 10:00 Dose: 100 mg Documented by: Tamsulosin HCl (Tamsulosin Hcl 0.4 Mg Cap) 0.8 mg PO DAILY [facility]OHAIB Stop: 01/30/21 08:59 Last Admin: 01/08/21 09:58 Dose: 0.8 mg Documented by: Umeclidinium/Vilanterol (Umeclidinium/Vilanterol 62.5/25mcg 7 Puffs/Inhaler) 1 puffs INH DAILY [facility] Stop: 01/30/21 08:59 Last Admin: 01/08/21 10:00 Dose: 1 puffs Documented by: Vitamin D (Cholecalciferol 1,000 Units 25 Mcg Tab) 2,000 units PO DAILY [facility]OHAIB Stop: 01/30/21 08:59 Last Admin: 01/08/21 09:59 Dose: 2,000 units Documented by:
[2021-01-09] MEDS: ACETAMINOPHEN 500 MG TAB PO SCH ×3 (05:27→20:03)
[2021-01-09] MEDS: HEPARIN SOD 5,000 UNIT/0.5 ML VIAL SQ SCH ×3 (05:28→20:02)
[2021-01-09] MEDS: UMECLIDINIUM/VILANTEROL 62.5/25MCG 7 PUFFS/INHALER INH SCH (09:42)
[2021-01-09] MEDS: SERTRALINE HCL 100 MG TABLET PO SCH (09:42)
[2021-01-09] MEDS: INSULIN ASPART 100 UNITS/ML 3 ML PEN SC SCH ×4 (09:42→22:17)
[2021-01-09] MEDS: DOCUSATE SODIUM 100 MG CAP PO SCH ×2 (09:42→20:01)
[2021-01-09] MEDS: INSULIN GLARGINE SOLOSTAR 100 UNITS/ML 3 ML PEN SC SCH ×2 (09:42→22:17)
[2021-01-09] MEDS: TAMSULOSIN HCL 0.4 MG CAP PO SCH (09:42)
[2021-01-09] MEDS: MULTIVITAMIN TAB PO SCH (09:43)
[2021-01-09] MEDS: CHOLECALCIFEROL 1,000 UNITS 25 MCG TAB PO SCH (09:43)
[2021-01-09] MEDS: PANTOprazole 40 MG TAB PO SCH (09:43)
[2021-01-09] MEDS: BUMETANIDE 1 MG TAB PO SCH (09:43)
[2021-01-09] MEDS: GABAPENTIN 300 MG CAP PO SCH ×3 (09:43→20:00)
[2021-01-09] MEDS: amLODIPine BESYLATE 5 MG TAB PO SCH (09:43)
[2021-01-09] MEDS: DULoxetine HCL 60 MG CAP PO SCH (09:43)
[2021-01-09] MEDS: FERROUS SULFATE 325 MG TAB PO SCH ×2 (09:43→18:05)
[2021-01-09] MEDS: lisinopril 10 MG TAB PO SCH (09:43)
[2021-01-09] MEDS: carvediloL 12.5 MG TAB PO SCH ×2 (09:43→18:05)
[2021-01-09] MEDS: POTASSIUM CHLORIDE CRTAB 20 MEQ TABCR PO SCH (09:43)
[2021-01-09] MEDS ORDERED: VANCOMYCIN CONSULT ACTIVE PRN (11:53)
[2021-01-09] MEDS ORDERED: VANCOMYCIN HCL 2,750 MG in SODIUM CHLORIDE 0.9% 500 ML IV ONE (12:00)
[2021-01-09] MEDS ORDERED: DAPTOmycin 650 MG in SYRINGE 0 ML IV ONE (12:00)
[2021-01-09 12:32] LABS: Basophils # (auto) 0.01 K/uL (0-0.2); Basophils % (auto) 0.1 %; Eosinophils # (auto) 0.26 K/uL (0-0.5); Eosinophils % (auto) 2.6 %; Hematocrit (blood only) 26.6 % (42-52); Hemoglobin 8.3 g/dL (14.0-18.0); Immature Granulocytes # (auto) 0.07 K/uL (0.00-0.02); Immature Granulocytes % (auto) 0.7 %; Lymphocytes # (auto) 1.63 K/uL (1.2-3.4); Lymphocytes % (auto) 16.3 %; Mean Corpuscular Hemoglobin 27.7 pg (25-34); Mean Corpuscular Hgb Conc 31.2 g/dL (32-36); Mean Corpuscular Volume 88.7 fL (80-100); Mean Platelet Volume 8.6 fL (7.4-10.4); Monocytes # (auto) 0.62 K/uL (0.11-0.59); Monocytes % (auto) 6.2 %; Neutrophils % (auto) 74.1 %; Platelet Count 342 K/uL (130-400); RDW Coefficient of Variation 15.5 % (11.5-14.5); RDW Standard Deviation 50.3 fL (36.4-46.3); White Blood Count 9.99 K/uL (4.8-10.8)
[2021-01-09 12:56] LABS: Albumin Level 2.5 gm/dl (3.4-5.0); BUN Creatinine Ratio 20.9 (10-20); Calcium 10.3 mg/dl (8.5-10.1); Creatinine Clr Calc Pharmacy 86.9 ml/min; Est GFR (African American) 66.1 ml/min; Potassium 3.9 mmol/L (3.5-5.1)
[2021-01-09 12:59] LABS: Albumin Globulin Ratio 0.6 (0.9-2); Bilirubin,Total 0.3 mg/dl (0.2-1); Globulin 4.5 gm/dl (2.5-4.0)
--- NOTE | 2021-01-09 14:35 | Pharmacy Report ---
Pharmacy Abx Dose Short Note - Date of Service January 09, 2021 - Assessment & Plan Assessment 65 year old M receiving vancomycin for treatment of osteo. Day # 1 of antimicrobial therapy. Plan Vancomycin * switch to vancomycin from daptomycin due to insurance coverage * vancomycin 2750 mg IV x 1 (18.5 mg/kg) * Vancomycin 1750 mg IV q12 hours * will order vancomycin peak and trough to establish the patient's own pharmacokinetics. Due to body habitus unable to determine patient's Ke from population kinetics * Peak at 1630 (1 hour after infusion finishes) * Trough prior to 0100 dose Pharmacy will continue to follow and will adjust dose/frequency as necessary. Thank you.
--- NOTE | 2021-01-09 16:12 | Hospitalist Progress Note ---
Date of Service January 09, 2021 Assessment & Plan (1) Osteomyelitis of right hand: (2) Abscess of hand, right: (3) Septic arthritis of hand, right: Plan: -s/p I&D right dorsal hand abscess and third MCP joint septic arthritis by Dr. Stephens on 12/31 - s/p washout on 01/03 - s/p right hand wound vac in place After discussing this with the pharmacists at [facility], it was decided to proceed with vancomycin and monitor him for the next few days to see if effective levels can be achieved. Patient was started on vancomycin today. (4) Postoperative anemia: Plan: S/P 1 Unit on 01/01. Remains anemic, continue to monitor closely for need of additional blood products. (5) Chronic respiratory failure with hypoxia: Plan: chronically on oxygen supplementation and at his baseline. (6) COPD (chronic obstructive pulmonary disease): Plan: Currently on roughly 2 L of nasal cannula oxygen. Chronic, stable, not in exacerbation. (7) History of COVID-19: Plan: -received aggressive treatment in October 2020 -continues to test positive, no acute issues, not on isolation (8) Chronic diastolic CHF (congestive heart failure): Plan: -appears euvolemic, continue Bumex per home regimen. (9) Diabetes mellitus, type II: Plan: -hgb a1c 7.1 11/2020 -blood sugars controlled -Lantus and Novolog (10) Hypertension: Plan: -BP controlled, continue Lisinopril, Coreg, Bumex per home regimen. (11) Morbid obesity: (12) DVT prophylaxis: Plan: Heparin Full Code Dispo-to rehab once there is a facility that accepts his IV antibiotic. Admission and Anticipated Discharge Date Admission Date: December 30, 2020 Subjective Patient doing okay this morning. Early this morning per RN patient had an episode of confusion however during my encounter patient was awake, alert and oriented x3. Patient did not have any active complaints at the moment. Review of system was negative. Review of Systems Review of Systems: All systems reviewed & are unremarkable except as noted in HPI & below Physical Exam Physical Exam: General: A&Ox2 HENT: NCAT, MMM, EOMI Eyes: PERRLA Neck: Supple, normal range of motion CVS: normal rate and rhythm Resp: b/l crackles appreciated Abdomen: Soft, ND/NT Extremities: R hand dressing intact, wound VAC in place Neuro: face symmetric,no focal deficit Skin: warm and dry, no rashes/lesions/errythema MSK: normal ROM, no joint swelling/erythema Gamez catheter in place. Results & Data Results & Data ([facility]) Vital Signs (Past 12 Hours) Vital Signs Temp Pulse Resp BP BP Pulse Ox 01/09/21 15:42 36.7 C 75 18 128/65 92 01/09/21 10:33 63 18 149/73 H 92 01/09/21 07:27 36.5 C 61 18 107/53 L 99 Laboratory Results Laboratory Results - last 24 hr 01/08/21 01/08/21 01/09/21 17:12 20:56 08:07 WBC RBC Hgb Hct MCV MCH MCHC RDW Std Deviation RDW Coeff of Xin Plt Count MPV Immature Gran % (Auto) Neut % (Auto) Lymph % (Auto) Republic % (Auto) Eos % (Auto) Baso % (Auto) Neut # (Auto) Lymph # (Auto) Republic # (Auto) Eos # (Auto) Baso # (Auto) Immature Gran # (Auto) Sodium Potassium Chloride Carbon Dioxide Anion Gap BUN Creatinine Est Cr Clr Drug Dosing Est GFR ( Amer) Est GFR (Non-Af Amer) BUN/Creatinine Ratio Glucose POC Glucose 113 H 120 H 148 H Calcium Total Bilirubin AST ALT Alkaline Phosphatase Total Creatine Kinase Total Protein Albumin Globulin Albumin/Globulin Ratio 01/09/21 01/09/21 01/09/21 12:03 12:16 12:16 WBC 9.99 RBC 3.00 L Hgb 8.3 L Hct 26.6 L MCV 88.7 MCH 27.7 MCHC 31.2 L RDW Std Deviation 50.3 H RDW Coeff of Xin 15.5 H Plt Count 342 MPV 8.6 Immature Gran % (Auto) 0.7 Neut % (Auto) 74.1 Lymph % (Auto) 16.3 Republic % (Auto) 6.2 Eos % (Auto) 2.6 Baso % (Auto) 0.1 Neut # (Auto) 7.40 H Lymph # (Auto) 1.63 Republic # (Auto) 0.62 H Eos # (Auto) 0.26 Baso # (Auto) 0.01 Immature Gran # (Auto) 0.07 H Sodium 138 Potassium 3.9 Chloride 100 Carbon Dioxide 34 H Anion Gap 4.0 BUN 28 H Creatinine 1.32 Est Cr Clr Drug Dosing 86.9 Est GFR ( Amer) 66.1 Est GFR (Non-Af Amer) 57.0 BUN/Creatinine Ratio 20.9 H Glucose 118 H POC Glucose 130 H Calcium 10.3 H Total Bilirubin 0.3 AST 16 ALT 19 Alkaline Phosphatase 121 H Total Creatine Kinase 13 L Total Protein 7.0 Albumin 2.5 L Globulin 4.5 H Albumin/Globulin Ratio 0.6 L
[2021-01-09] MEDS: SENNA 8.6 MG TAB PO SCH (20:01)
[2021-01-09] MEDS: MONTELUKAST SODIUM 10 MG TABLET PO SCH (20:01)
[2021-01-09] MEDS: oxyCODONE HCL IR 5 MG TAB (IMMEDIATE RELEASE) PO PRN (20:09)
[2021-01-10] MEDS ORDERED: VANCOMYCIN TROUGH ONE (00:30)
[2021-01-10] MEDS ORDERED: VANCOMYCIN HCL 1,750 MG in SODIUM CHLORIDE 0.9% 500 ML IV SCH (01:00)
[2021-01-10] MEDS: oxyCODONE HCL IR 5 MG TAB (IMMEDIATE RELEASE) PO PRN ×3 (02:09→21:13)
[2021-01-10] MEDS: ACETAMINOPHEN 500 MG TAB PO SCH ×3 (05:21→21:11)
[2021-01-10] MEDS: HEPARIN SOD 5,000 UNIT/0.5 ML VIAL SQ SCH ×3 (05:23→21:12)
[2021-01-10] MEDS: GABAPENTIN 300 MG CAP PO SCH ×3 (08:47→21:08)
[2021-01-10] MEDS: PANTOprazole 40 MG TAB PO SCH (08:47)
[2021-01-10] MEDS: BUMETANIDE 1 MG TAB PO SCH (08:47)
[2021-01-10] MEDS: DULoxetine HCL 60 MG CAP PO SCH (08:47)
[2021-01-10] MEDS: DOCUSATE SODIUM 100 MG CAP PO SCH ×2 (08:48→21:08)
[2021-01-10] MEDS: FERROUS SULFATE 325 MG TAB PO SCH ×2 (08:48→18:55)
[2021-01-10] MEDS: amLODIPine BESYLATE 5 MG TAB PO SCH (08:48)
[2021-01-10] MEDS: lisinopril 10 MG TAB PO SCH (08:49)
[2021-01-10] MEDS: MULTIVITAMIN TAB PO SCH (08:50)
[2021-01-10] MEDS: carvediloL 12.5 MG TAB PO SCH ×2 (08:50→18:55)
[2021-01-10] MEDS: TAMSULOSIN HCL 0.4 MG CAP PO SCH (08:50)
[2021-01-10] MEDS: SERTRALINE HCL 100 MG TABLET PO SCH (08:50)
[2021-01-10] MEDS: CHOLECALCIFEROL 1,000 UNITS 25 MCG TAB PO SCH (08:50)
[2021-01-10] MEDS: UMECLIDINIUM/VILANTEROL 62.5/25MCG 7 PUFFS/INHALER INH SCH (08:51)
[2021-01-10] MEDS: POTASSIUM CHLORIDE CRTAB 20 MEQ TABCR PO SCH (08:51)
[2021-01-10] MEDS: INSULIN ASPART 100 UNITS/ML 3 ML PEN SC SCH ×4 (08:52→21:14)
[2021-01-10] MEDS: INSULIN GLARGINE SOLOSTAR 100 UNITS/ML 3 ML PEN SC SCH ×2 (08:52→21:14)
--- NOTE | 2021-01-10 10:05 | Pharmacy Report ---
Pharmacy Abx Dose Short Note - Date of Service January 10, 2021 - Assessment & Plan Assessment 65 year old M admitted on 12/30/20 secondary to right hand osteomyelitis * Cultures grew MRSA sensitive to Vancomycin and Daptomycin * Patient had been on Daptomycin since admission. Recommendation is 6 weeks of treatment per [facility] (12/30/20-02/10/21) * However, insurance will require a switch to Vancomycin in order for patient to be discharged * Patient was switched to Vancomycin yesterday. Given elevated BMI, a peak and trough level were ordered yesterday to determined patient specific pharmacokinetics. * Peak level (drawn ~ 1.5 hours after loading dose stopped infusing) = 27.4 mcg/mL * Trough level (drawn ~ 20 minutes prior to start of next dose) = 19.6 mcg/mL * Ke determined to be 0.043 hr-1 * t1/2 determined to be ~ 16 hours Plan Vancomycin * Given trough following loading dose, believe patient will require a lower dose if continuing every 12 hour dosing * Using pharmacokinetic calculators and Cosential programming, believe patient's total daily dose should be near 2000 mg/day * Change to 1000 mg IV every 12 hours * Goal trough level: 15 to 20 mcg/mL * Trough level ordered for 01/11/21 prior to the 1400 dose DISCHARGE RECOMMENDATIONS: * Vancomycin 1000 mg IV every 12 hours OR Vancomycin 2000 mg IV every 24 hours. * Serum creatinine should be monitored every 1-3 days until trough levels are therapeutic then can monitor every 5-7 days. * Trough level will need assessed every 2-3 days until levels are therapeutic at steady state then can monitor troughs weekly. Pharmacy will continue to follow and will adjust dose/frequency as necessary. Thank you.
[2021-01-10] MEDS: VANCOMYCIN HCL 1,000 MG in SODIUM CHLORIDE 0.9% 250 ML IV SCH (13:28)
--- NOTE | 2021-01-10 13:54 | Hospitalist Progress Note ---
Date of Service January 10, 2021 Assessment & Plan (1) Osteomyelitis of right hand: (2) Abscess of hand, right: (3) Septic arthritis of hand, right: Plan: -s/p I&D right dorsal hand abscess and third MCP joint septic arthritis by Dr. Stephens on 12/31 - s/p washout on 01/03 - s/p right hand wound vac in place After discussing this with the pharmacists at [facility], it was decided to proceed with vancomycin and monitor him to see if effective levels can be achieved. Continue with vancomycin; as per infectious disease for a total of 6 weeks. PICC line has been ordered. She is currently waiting for authorization, once approved can be discharged tomorrow. (4) Postoperative anemia: Plan: S/P 1 Unit on 01/01. Stable. (5) Chronic respiratory failure with hypoxia: Plan: chronically on oxygen supplementation and at his baseline. Currently on 2 L of nasal cannula. (6) COPD (chronic obstructive pulmonary disease): Plan: Currently on roughly 2 L of nasal cannula oxygen. Chronic, stable, not in exacerbation. (7) History of COVID-19: Plan: -received aggressive treatment in October 2020 -continues to test positive, no acute issues, not on isolation (8) Chronic diastolic CHF (congestive heart failure): Plan: -appears euvolemic, continue Bumex per home regimen. Gamez catheter in place. Patient preferred not to have the catheter removed because he would have difficulty getting up. (9) Diabetes mellitus, type II: Plan: -hgb a1c 7.1 11/2020 -blood sugars controlled -Lantus and Novolog (10) Hypertension: Plan: -BP controlled, continue Lisinopril, Coreg, Bumex per home regimen. (11) Morbid obesity: (12) DVT prophylaxis: Plan: Heparin Full Code Dispo-awaiting insurance authorization Admission and Anticipated Discharge Date Admission Date: December 30, 2020 Subjective Doing okay this morning. No new concerns. Review of system is negative. Right hand pain is somewhat better. Review of Systems Review of Systems: All systems reviewed & are unremarkable except as noted in HPI & below Physical Exam Physical Exam: General: A&Ox2 HENT: NCAT, MMM, EOMI Eyes: PERRLA Neck: Supple, normal range of motion CVS: normal rate and rhythm Resp: b/l crackles appreciated Abdomen: Soft, ND/NT Extremities: R hand dressing intact, wound VAC in place Neuro: face symmetric,no focal deficit Skin: warm and dry, no rashes/lesions/errythema MSK: normal ROM, no joint swelling/erythema Gamez catheter in place. Results & Data Results & Data ([facility]) Vital Signs (Past 12 Hours) Vital Signs Temp Pulse Resp BP Pulse Ox 01/10/21 06:53 36.4 C L 70 18 132/73 91
[2021-01-10] MEDS: MONTELUKAST SODIUM 10 MG TABLET PO SCH (21:11)
[2021-01-10] MEDS: SENNA 8.6 MG TAB PO SCH (21:11)
--- NOTE | 2021-01-10 23:25 | Progress Notes ---
SUBJECTIVE: A 65-year-old gentleman now about a week out from a repeat I and D of a right hand infec tion and septic arthritis, osteomyelitis, suppurative tenosynovitis. He is doing quite a bit better. He still has some soreness in his hand, but significantly better. He has wound VAC treatments to t he dorsum of his hand. No new complaints. OBJECTIVE: VITAL SIGNS: Temperature is 36.4. Vital signs are stable. GENERAL: Physical examination shows a pleasant middle-aged male. He is lying in bed. EXTREMITIES: Examination of the right hand reveals the wound VAC to be in place dorsally. Swelling of the hand is markedly improved. He still has a ____ to the long finger, but much improved. The wo unds are healing. There is no drainage. He can flex and extend his fingers with fairly mild pain. They are still fairly stiff. ASSESSMENT: A 65-year-old gentleman status post I and D of an extensive right hand infection includi ng septic arthritis, osteomyelitis, and infected tenosynovitis. He is making significant improvement s. PLAN: At this point, he is doing well with further medical management. There is no need for surgica l intervention at this point. Continue physical therapy for range of motion and mobilization. Plan is 6 weeks of IV antibiotics and may need some p.o. antibiotics after that. That will be based on cl inical examination. He is okay for discharge any time medically stable. The stitches need to come ou t in about 2 weeks from surgery date. Any orthopedic questions can be directed to me at [phone]. Job ID: [id number]
[2021-01-11] MEDS: VANCOMYCIN HCL 1,000 MG in SODIUM CHLORIDE 0.9% 250 ML IV SCH ×2 (02:57→14:04)
[2021-01-11] MEDS: oxyCODONE HCL IR 5 MG TAB (IMMEDIATE RELEASE) PO PRN ×3 (03:01→22:00)
[2021-01-11] MEDS: ACETAMINOPHEN 500 MG TAB PO SCH ×3 (05:42→22:05)
[2021-01-11] MEDS: HEPARIN SOD 5,000 UNIT/0.5 ML VIAL SQ SCH ×3 (05:44→22:05)
[2021-01-11 07:12] LABS: Creatinine Clr Calc Pharmacy 86.9 ml/min; Est GFR (African American) 66.1 ml/min
[2021-01-11] MEDS: INSULIN ASPART 100 UNITS/ML 3 ML PEN SC SCH ×4 (10:12→22:03)
[2021-01-11] MEDS: INSULIN GLARGINE SOLOSTAR 100 UNITS/ML 3 ML PEN SC SCH ×2 (10:12→22:03)
[2021-01-11] MEDS: UMECLIDINIUM/VILANTEROL 62.5/25MCG 7 PUFFS/INHALER INH SCH (10:13)
[2021-01-11] MEDS: POTASSIUM CHLORIDE CRTAB 20 MEQ TABCR PO SCH (10:14)
[2021-01-11] MEDS: carvediloL 12.5 MG TAB PO SCH ×2 (10:14→18:25)
[2021-01-11] MEDS: BUMETANIDE 1 MG TAB PO SCH (10:14)
[2021-01-11] MEDS: GABAPENTIN 300 MG CAP PO SCH ×3 (10:14→22:02)
[2021-01-11] MEDS: lisinopril 10 MG TAB PO SCH (10:14)
[2021-01-11] MEDS: amLODIPine BESYLATE 5 MG TAB PO SCH (10:15)
[2021-01-11] MEDS: CHOLECALCIFEROL 1,000 UNITS 25 MCG TAB PO SCH (10:15)
[2021-01-11] MEDS: TAMSULOSIN HCL 0.4 MG CAP PO SCH (10:15)
[2021-01-11] MEDS: FERROUS SULFATE 325 MG TAB PO SCH ×2 (10:15→18:24)
[2021-01-11] MEDS: DOCUSATE SODIUM 100 MG CAP PO SCH ×2 (10:15→22:01)
[2021-01-11] MEDS: MULTIVITAMIN TAB PO SCH (10:15)
[2021-01-11] MEDS: DULoxetine HCL 60 MG CAP PO SCH (10:15)
[2021-01-11] MEDS: SERTRALINE HCL 100 MG TABLET PO SCH (10:15)
[2021-01-11] MEDS: PANTOprazole 40 MG TAB PO SCH (10:15)
--- NOTE | 2021-01-11 13:06 | Hospitalist Progress Note ---
Date of Service January 11, 2021 Assessment & Plan (1) Osteomyelitis of right hand: (2) Abscess of hand, right: (3) Septic arthritis of hand, right: Plan: -s/p I&D right dorsal hand abscess and third MCP joint septic arthritis by Dr. Stephens on 12/31 -s/p washout on 01/03 -s/p right hand wound vac in place Patient currently on IV vancomycin. Pain does better vancomycin trough. Discussed with pharmacist today. Based on vancomycin trough today. Change to daily dosing. We will confirm with wrapper caser about monitoring at the facility where patient will be discharged . Will need at least every 3 days monitoring of vancomycin level and creatinine to adjust doses as needed. Discussed with surgery team via [place] text about wound care recommendation to reevaluate wound Surgery recommend wound care to continue wound vac (4) Postoperative anemia: Plan: S/P 1 Unit on 01/01. Stable. (5) Chronic respiratory failure with hypoxia: Plan: Chronically on oxygen supplementation and at his baseline. Currently on 2 L of nasal cannula. (6) COPD (chronic obstructive pulmonary disease): Plan: Currently on roughly 2 L of nasal cannula oxygen. Chronic, stable, not in exacerbation. (7) History of COVID-19: Plan: -received aggressive treatment in October 2020 -continues to test positive, no acute issues, not on isolation (8) Chronic diastolic CHF (congestive heart failure): Plan: -appears euvolemic, continue Bumex per home regimen. MEGAN mccormack (9) Diabetes mellitus, type II: Plan: -hgb a1c 7.1 11/2020 -blood sugars controlled -Lantus and Novolog (10) Hypertension: Plan: -BP controlled, continue Lisinopril, Coreg, Bumex per home regimen. (11) Morbid obesity: (12) DVT prophylaxis: Plan: Heparin Full Code Dispo-awaiting insurance authorization Admission and Anticipated Discharge Date Admission Date: December 30, 2020 Subjective 62-year-old man with COPD, DM type II, hypertension, obesity Who presented with right hand pain and swelling. Being managed for right hand abscess, septic arthritis of right hand and osteomyelitis of right hand status post I&D left dorsal hand abscess and third MCP joint septic arthritis on 12/31/2020 and washout on 01/03/2021 Patient seen and examined today. Reports only pain and swelling of the right hand. Review of Systems Constitutional: no fever and no chills Eyes: no problem reported Ear, Nose, Mouth, Throat: no hearing loss and no sore throat Respiratory: no cough and no dyspnea Cardiovascular: no chest pain, no dyspnea, no orthopnea, no palpitations and no lightheadedness Gastrointestinal: no abdominal pain, no nausea, no vomiting and no diarrhea/loose stools Genitourinary: no dysuria, no urinary frequency or no urinary incontinence Musculoskeletal: Right hand pain Neurologic: no generalized weakness Psychiatric: no problem reported Physical Exam Constitutional: + well hydrated and + obese; no acute distress Eyes: PERRL, conjunctivae normal, anicteric sclerae ENMT: external ear and nose normal, oropharynx normal Respiratory: normal respiratory effort, lungs clear to auscultation Cardiovascular: Rate/Rhythm: regular rate and regular rhythm S1 S2. No pedal edema Gastrointestinal (Abdomen): normal bowel sounds, soft, nontender, no hepatosplenomegaly Musculoskeletal: Dressing over right hand with swelling Neurologic: PERRL, EOMI, accommodation nl, no face palsy, no dysarthria Psychiatric: A+Ox3, euthymic affect Genitourinary: no CVA tenderness Results & Data Results & Data ([facility]) Vital Signs (Past 12 Hours) Vital Signs Temp Pulse Resp BP Pulse Ox 01/11/21 07:50 36.4 C L 66 18 142/67 H 93 Laboratory Results Abnormal lab results 01/10/21 01/10/21 01/11/21 Range/Units 17:01 20:43 07:52 POC Glucose 125 H 123 H 132 H (70-99) mg/dl 01/11/21 Range/Units 11:54 POC Glucose 153 H (70-99) mg/dl
[2021-01-11] MEDS ORDERED: VANCOMYCIN TROUGH SCH (13:30)
--- NOTE | 2021-01-11 15:26 | Pharmacy Report ---
Pharmacy Abx Dose Short Note - Date of Service January 11, 2021 - Assessment & Plan Assessment 65 year old M admitted on 12/30/20 secondary to right hand osteomyelitis * Cultures grew MRSA sensitive to Vancomycin and Daptomycin * Patient had been on Daptomycin since admission. Recommendation is 6 weeks of treatment per [facility] (12/30/20-02/10/21) * However, insurance will require a switch to Vancomycin in order for patient to be discharged * Patient was switched to Vancomycin on 01/09 Plan Vancomycin * Trough level of 26.3 mcg/mL is supratherapeutic * instructed RN to stop vancomycin infusion (1400 dose) - dose infused for about 1 hour (~740 mg) * Change to vancomycin 1500 mg IV q24h * predicted AUC 552 * Goal AUC 400- 600 * Repeat drug level will be ordered if patient remains in house beyond 01/12 Pharmacy will continue to follow and will adjust dose/frequency as necessary. Thank you. DISCHARGE RECOMMENDATIONS: * Vancomycin 1500 mg IV every 24 hours * Serum creatinine should be monitored every 1-3 days until trough levels are therapeutic then can monitor every 5-7 days. * Trough level will need assessed every 2-3 days until levels are therapeutic at steady state then can monitor troughs weekly. * Patient is at high risk for drug accumulation
--- NOTE | 2021-01-11 18:18 | Progress Notes ---
DATE OF SERVICE: 01/11/2021 SUBJECTIVE: A 65-year-old gentleman now about 8 days out from a repeat I and D of right hand infecti on including abscess, septic arthritis, osteomyelitis and infected tenosynovitis. He has continued t o make gradual improvements. He has had a wound VAC dorsally. No new complaints. OBJECTIVE: VITAL SIGNS: Temperature 36.8. Vital signs stable. PHYSICAL EXAMINATION: GENERAL: Shows a pleasant poorly kempt middle-aged male. EXTREMITIES: Examination of the right hand reveals dorsal wound to be approximated distally and prox imally. There is an open wound with some eschar in the central aspect. He can flex and extend his f ingers slightly. On the volar side, the wounds appear to be healing in nicely. Some moderate residu al swelling of his long digit with a little bit of red hue to it. No obvious pus. ASSESSMENT: A 65-year-old gentleman with multiple medical comorbidities with severe right hand infec tion including an abscess, osteomyelitis, septic arthritis, and infected tenosynovitis. He is making gradual improvements. PLAN: From the orthopedic standpoint, I would just continue wound care as per the wound clinic. He has got an eschar forming and my tendency would be to leave that alone, but I will leave that up to t wound clinic on how they would recommend managing that. I would not do aggressive debridement as we do not want to expose the tendons. If a wound VAC is appropriate, I would recommend continuing th at; if not, just wound care is reasonable. In my opinion, wet-to-dry dressings may assist him, but I would leave that up to the wound care specialists. I do not think any further orthopedic interventi on is needed. He should continue therapy for finger range of motion. Any orthopedic questions can b e directed to me at [phone]. Job ID: [id number]
[2021-01-11] MEDS: MONTELUKAST SODIUM 10 MG TABLET PO SCH (22:04)
[2021-01-11] MEDS: SENNA 8.6 MG TAB PO SCH (22:04)
[2021-01-12] MEDS: ACETAMINOPHEN 500 MG TAB PO SCH ×2 (05:33→15:13)
[2021-01-12] MEDS: oxyCODONE HCL IR 5 MG TAB (IMMEDIATE RELEASE) PO PRN (05:33)
[2021-01-12] MEDS: HEPARIN SOD 5,000 UNIT/0.5 ML VIAL SQ SCH ×2 (05:36→15:13)
[2021-01-12] MEDS ORDERED: VANCOMYCIN HCL 1,500 MG in SODIUM CHLORIDE 0.9% 500 ML IV SCH (06:00)
[2021-01-12 06:14] LABS: Hematocrit (blood only) 24.2 % (42-52); Hemoglobin 7.5 g/dL (14.0-18.0); Mean Corpuscular Hemoglobin 27.1 pg (25-34); Mean Corpuscular Volume 87.4 fL (80-100); Mean Platelet Volume 8.5 fL (7.4-10.4); Platelet Count 274 K/uL (130-400); RDW Coefficient of Variation 15.8 % (11.5-14.5); RDW Standard Deviation 50.6 fL (36.4-46.3); Red Blood Count 2.77 M/uL (4.7-6.1); White Blood Count 9.38 K/uL (4.8-10.8)
[2021-01-12 06:45] LABS: BUN Creatinine Ratio 22.6 (10-20); Calcium 9.8 mg/dl (8.5-10.1); Creatinine Clr Calc Pharmacy 83.8 ml/min; Est GFR (African American) 63.2 ml/min; Est GFR (Non-African American) 54.5 ml/min; Potassium 3.9 mmol/L (3.5-5.1)
[2021-01-12] MEDS: carvediloL 12.5 MG TAB PO SCH (08:35)
[2021-01-12] MEDS: FERROUS SULFATE 325 MG TAB PO SCH (08:35)
[2021-01-12] MEDS: BUMETANIDE 1 MG TAB PO SCH (08:35)
[2021-01-12] MEDS: MULTIVITAMIN TAB PO SCH (08:36)
[2021-01-12] MEDS: GABAPENTIN 300 MG CAP PO SCH ×2 (08:36→15:13)
[2021-01-12] MEDS: DULoxetine HCL 60 MG CAP PO SCH (08:36)
[2021-01-12] MEDS: PANTOprazole 40 MG TAB PO SCH (08:37)
[2021-01-12] MEDS: POTASSIUM CHLORIDE CRTAB 20 MEQ TABCR PO SCH (08:37)
[2021-01-12] MEDS: TAMSULOSIN HCL 0.4 MG CAP PO SCH (08:37)
[2021-01-12] MEDS: SERTRALINE HCL 100 MG TABLET PO SCH (08:37)
[2021-01-12] MEDS: amLODIPine BESYLATE 5 MG TAB PO SCH (08:38)
[2021-01-12] MEDS: lisinopril 10 MG TAB PO SCH (08:38)
[2021-01-12] MEDS: DOCUSATE SODIUM 100 MG CAP PO SCH (08:40)
[2021-01-12] MEDS: CHOLECALCIFEROL 1,000 UNITS 25 MCG TAB PO SCH (08:40)
[2021-01-12] MEDS: INSULIN ASPART 100 UNITS/ML 3 ML PEN SC SCH ×2 (08:41→12:34)
[2021-01-12] MEDS: INSULIN GLARGINE SOLOSTAR 100 UNITS/ML 3 ML PEN SC SCH (08:42)
[2021-01-12] MEDS: UMECLIDINIUM/VILANTEROL 62.5/25MCG 7 PUFFS/INHALER INH SCH (08:43)
[2021-01-12] MEDS ORDERED: COLLAGENASE OINT 30 GM TUBE EXT SCH (09:30)
--- NOTE | 2021-01-12 09:36 | Hospitalist Progress Note ---
Date of Service January 12, 2021 Assessment & Plan (1) Osteomyelitis of right hand: (2) Abscess of hand, right: (3) Septic arthritis of hand, right: Plan: -s/p I&D right dorsal hand abscess and third MCP joint septic arthritis by Dr. Stephens on 12/31 -s/p washout on 01/03 -s/p right hand wound vac in place Patient currently on IV vancomycin. Pain does better vancomycin trough. Continue vancomycin dosing per level Still waiting of auth for SNF Will confirm with caseworker protective services about monitoring at the facility where patient will be discharged . Will need at least every 3 days monitoring of vancomycin level and creatinine to adjust doses as needed. Continue wound care (4) Postoperative anemia: Plan: S/P 1 Unit on 01/01. Hb has been stable in 7s (5) Chronic respiratory failure with hypoxia: Plan: Chronically on oxygen supplementation and at his baseline. Currently on 2 L of nasal cannula. Patient claims he is not on oxygen at home unlike previous chart has mentioned Will monitor this (6) COPD (chronic obstructive pulmonary disease): Plan: Currently on roughly 2 L of nasal cannula oxygen. Chronic, stable, not in exacerbation. (7) History of COVID-19: Plan: -received aggressive treatment in October 2020 -continues to test positive, no acute issues, not on isolation (8) Chronic diastolic CHF (congestive heart failure): Plan: -appears euvolemic, continue Bumex per home regimen. (9) Diabetes mellitus, type II: Plan: -hgb a1c 7.1 11/2020 -blood sugars controlled -Lantus and Novolog (10) Hypertension: Plan: -BP controlled, continue Lisinopril, Coreg, Bumex per home regimen. (11) Morbid obesity: (12) DVT prophylaxis: Plan: Heparin Full Code Dispo-awaiting insurance authorization Admission and Anticipated Discharge Date Admission Date: December 30, 2020 Subjective 62-year-old man with COPD, DM type II, hypertension, obesity Who presented with right hand pain and swelling. Being managed for right hand abscess, septic arthritis of right hand and osteomyelitis of right hand status post I&D left dorsal hand abscess and third MCP joint septic arthritis on 12/31/2020 and washout on 01/03/2021 Patient seen and examined today. Reports pain in right hand is controlled Review of Systems Review of Systems: All systems were reviewed and negative except as indicated in HPI above. Constitutional: no fever and no chills Eyes: no problem reported Ear, Nose, Mouth, Throat: no hearing loss and no sore throat Respiratory: no cough and no dyspnea Cardiovascular: no chest pain, no dyspnea, no orthopnea, no palpitations and no lightheadedness Gastrointestinal: no abdominal pain, no nausea, no vomiting and no diarrhea/loose stools Genitourinary: no dysuria, no urinary frequency or no urinary incontinence Musculoskeletal: Right hand pain Neurologic: no generalized weakness Psychiatric: no problem reported Physical Exam Constitutional: + well hydrated and + obese; no acute distress Eyes: PERRL, conjunctivae normal, anicteric sclerae ENMT: external ear and nose normal, oropharynx normal Respiratory: normal respiratory effort, lungs clear to auscultation Cardiovascular: Rate/Rhythm: regular rate and regular rhythm Gastrointestinal (Abdomen): normal bowel sounds, soft, nontender, no hepatosplenomegaly Neurologic: PERRL, EOMI, accommodation nl, no face palsy, no dysarthria Psychiatric: A+Ox3, euthymic affect Genitourinary: no CVA tenderness Results & Data Results & Data ([facility]) Vital Signs (Past 12 Hours) Vital Signs Temp Pulse Resp BP BP Pulse Ox Pulse Ox 01/12/21 08:02 36.3 C L 64 16 132/72 94 01/11/21 22:45 36.4 C L 64 17 127/70 96 01/11/21 22:05 98 Laboratory Results Abnormal lab results 01/11/21 01/11/21 01/12/21 Range/Units 11:54 20:56 05:38 RBC (4.7-6.1) M/uL Hgb (14.0-18.0) g/dL Hct (42-52) % MCHC (32-36) g/dL RDW Std Deviation (36.4-46.3) fL RDW Coeff of Xin (11.5-14.5) % Carbon Dioxide 33 H (21-32) mmol/L BUN 31 H (7-18) mg/dl BUN/Creatinine Ratio 22.6 H (10-20) Glucose 104 H (70-99) mg/dl POC Glucose 153 H 115 H (70-99) mg/dl 01/12/21 01/12/21 Range/Units 05:38 08:04 RBC 2.77 L (4.7-6.1) M/uL Hgb 7.5 L (14.0-18.0) g/dL Hct 24.2 L (42-52) % MCHC 31.0 L (32-36) g/dL RDW Std Deviation 50.6 H (36.4-46.3) fL RDW Coeff of Xin 15.8 H (11.5-14.5) % Carbon Dioxide (21-32) mmol/L BUN (7-18) mg/dl BUN/Creatinine Ratio (10-20) Glucose (70-99) mg/dl POC Glucose 114 H (70-99) mg/dl
--- NOTE | 2021-01-12 10:27 | Discharge Summary ---
Date of Service January 12, 2021 Admission HPI Per Admitting Provider 65 y/o M Hx HTN, HLD, DM II, anemia, morbidly obese, FRANCIS, COPD, diastolic CHF, critical COVID PNM 10/2020. Presents with R hand swelling/pain/erythema. The pt denies fevers. Initial labs are notable for leukocytosis and are otherwise at baseline. An XR of the hand demonstrated diffuse soft tissue edema with no acute bony abnormalities. The pt continues to test + for COVID. PMH: 1) HTN 2) HLD 3) DM II 4) Anemia - baseline Hb 8-10 5) Diastolic CHF 6) Morbidly obese 7) FRANCIS - noncompliant with CPAP 8) COPD - chronic respiratory failure - 2-3L 02 conrtinuos 9) COVID PNM 10) Chronic lower extremity edema and cellulitis 11) Depression 12) CAD Surgical: Limited to L knee arthroscopy Social: Formerly chewed tobacco. Rare ETOH Family: CAD, DM Admission Exam Per Admitting Provider General: Overweight, middle-aged M, AAO x 3, no distress ENT: No erythema or exudates, no thrush Eyes: ARVIN, EOMI Head and neck: Normocephalic, atraumatic - cannot assess JVD Chest/heart: Nontender, S1,2, RRR, no murmurs, no gallops Lungs: CTAB, no wheezing or crackles Abdomen: Nontender, nondistended, BS+ Neuro: AAO x 3, speech is clear, no unilateral weakness or loss of sensation, coordination intact Musculoskeletal: Impressive swelling of R hand - mobility of fingers is limited by severe pain with any movement Skin: + Erythema of R hand and shallow ulcer of R leg Extremities: + edema - per hand exam Principal Diagnosis Osteomyelitis of right hand Abscess of hand, right Septic arthritis of hand, right Discharge Exam Constitutional + well hydrated and + obese; no acute distress Eyes PERRL, conjunctivae normal, anicteric sclerae ENMT external ear and nose normal, oropharynx normal Respiratory normal respiratory effort, lungs clear to auscultation Cardiovascular Rate/Rhythm: regular rate and regular rhythm S1 S2 Gastrointestinal (Abdomen) normal bowel sounds, soft, nontender, no hepatosplenomegaly Musculoskeletal Clean dressing over right hand Neurologic PERRL, EOMI, accommodation nl, no face palsy, no dysarthria Psychiatric A+Ox3, euthymic affect Genitourinary no CVA tenderness Discharge Data Allergies Allergy/AdvReac Type Severity Reaction Status Date / Time No Known Allergies Allergy Verified 12/08/20 11:29 Consultations 12/30/20 11:25 Consult Orthopedic Surgery Stat 12/30/20 11:48 ED Decision to Admit Stat 01/01/21 11:16 Consult Infectious Diseases Routine 01/03/21 22:06 Consult Wound Care Provider Routine 01/11/21 11:46 Consult Orthopedic Surgery Routine Procedures Performed Operation Date: 12/31/20 09:15 Actual Procedures p Incision and Drainage of Right Hand(Right) - Jarod Stephens MD Operation Date: 01/03/21 11:30 Actual Procedures p Incision and Drainage Right Hand(Right) - Jarod Stephens MD Ordered Studies 12/30/20 15:50 MR hand RT wo con Urgent Note is made of severe degenerative changes within the right wrist with marked radiocarpal joint space narrowing. Marked scaphoid edema is noted. Although indeterminate, this is probably degenerative. There is increased fluid within the radiocarpal joint. The right wrist is suboptimally assessed on this right hand MRI. There is diffuse soft tissue swelling of the right hand. Made of a 5.6 x 1.2 cm subcutaneous fluid collection of the dorsal aspect of the right hand overlying the right third metacarpophalangeal joint. This immediately overlies the extensor tendon. A portion of this collection extends toward the right fourth digit extensor tendon with increased fluid within the tendon sheath. These findings suggest tenosynovitis. In addition, there is trace narrowing of the right third metacarpophalangeal joint. There is increased fluid within this joint which may communicate with the larger dorsal suspected abscess. There is abnormal marrow signal within the mid to distal aspect of the right third metacarpal as well as within the right third proximal phalanx. IMPRESSION: 1. 5.6 x 1.2 cm subcutaneous fluid collection of the dorsal aspect of the right hand overlying the right third metacarpophalangeal joint. This is suggestive of an abscess. This may communicate with a joint effusion of the right third metacarpophalangeal joint which suggests septic arthritis with possible associated osteomyelitis of the right third metacarpal and third proximal phalanx. Suspected associated infectious tenosynovitis of the right third and fourth extensor tendon sheaths. Findings discussed with Dr. Stephens at time of dictation. 2. Severe degenerative changes within the right wrist, as described above. Hospital Course (1) Osteomyelitis of right hand: (2) Abscess of hand, right: (3) Septic arthritis of hand, right: -s/p I&D right dorsal hand abscess and third MCP joint septic arthritis by Dr. Stephens on 12/31 -s/p washout on 01/03 Patient currently on IV vancomycin. Currently on vancomycin 1.5 g every 24 hours for the next 5 weeks to complete 6 weeks of treatment since last surgery Patient discharged to nursing facility. Will continue wound dressing at nursing facility. (4) Postoperative anemia: Hemoglobin was 9.3 on admission. Dropped to 6.9. S/P 1 Unit on 01/01. Hb has been stable in 7s (5) Chronic respiratory failure with hypoxia: Chronically on oxygen supplementation and at his baseline. Currently on 2 L of nasal cannula. (6) COPD (chronic obstructive pulmonary disease): Currently on roughly 2 L of nasal cannula oxygen. Chronic, stable, not in exacerbation. (7) History of COVID-19: -received aggressive treatment in October 2020 -continues to test positive, no acute issues, not on isolation (8) Chronic diastolic CHF (congestive heart failure): -appears euvolemic, continue Bumex per home regimen. (9) Diabetes mellitus, type II: -hgb a1c 7.1 11/2020 Continue home insulin regimen (10) Hypertension: -BP controlled, continue Lisinopril, Coreg, Bumex per home regimen. (11) Morbid obesity: Total Time Total Time Spent Total Time Spent (In Minutes): 50 Total Time Includes: Examination of the Patient, Discharge Planning and Medication Reconciliation Discharge Plan Discharge Items Patient Disposition: Transfer Residential Fac Reason For Visit: CELLULITIS Discharge Diagnosis: Osteomyelitis of right hand Abscess of hand, right Septic arthritis of hand, right Condition on Discharge: Good Activity: As commented below Non-emergency contact: Primary Care Provider Call non-emergency contact if: you have any medication questions Follow-up/Referrals: [facility] [Primary Care Provider] - Diet: Carb Consistent or DM2 and Heart Healthy Addtl Attending Provider Instructions: Mr. Cheung You came to the hospital complaining of right hand swelling and pain and redness. You were evaluated and managed for right hand abscess, septic arthritis and tenosynovitis. You required 2 surgeries for incision and drainage with washout by the surgeon. You are currently on vancomycin 1.5g q24h to complete a total of 6 weeks. You still have 5 weeks to complete treatment. Vancomycin level and creatinine level need to be monitored at least every 3 days at the rehab facility for appropriate dosing and management of antibiotics. Please continue wound care and dressing. Patient can follow-up with the surgeon if needed. Please ensure follow-up with your primary care doctor. It was a pleasure taking care of you Pending Studies at Discharge: No Stand-Alone Forms: My [facility] Skilled Items Patient informed of condition?: Yes DNR: No Discharge Level of Care: Skilled Communicable Disease: No Discharge Prognosis: Stable Lines: PICC Urinary Catheter: No Medications and DC Order Prescriptions: Continued atorvastatin 40 mg Tablet 40 mg PO HS RF: 0 carvedilol 12.5 mg Tablet 12.5 mg PO BIDM RF: 0 sertraline 100 mg Tablet 100 mg PO DAILY RF: 0 tamsulosin 0.4 mg Capsule 0.8 mg PO DAILY RF: 0 pantoprazole [Protonix] 40 mg Tablet,Delayed Release (Dr/Ec) 40 mg PO DAILY RF: 0 ferrous sulfate 325 mg (65 mg iron) Tablet 325 mg PO BID RF: 0 montelukast [Singulair] 10 mg Tablet 10 mg PO HS RF: 0 duloxetine 30 mg Capsule,Delayed Release(Dr/Ec) 60 mg PO DAILY RF: 0 cholecalciferol (vitamin D3) [Vitamin D3] 50 mcg (2,000 unit) Capsule 50 mcg PO DAILY RF: 0 acetaminophen [Tylenol] 325 mg Tablet 650 mg PO Q4 PRN (Reason: PAIN , SCALE 1-3) RF: 0 polyethylene glycol 3350 [Miralax] 17 gram Powder In Packet 17 g PO DAILY PRN (Reason: Constipation) RF: 0 sennosides-docusate sodium [Senokot-S] 8.6-50 mg Tablet 1 tab-cap PO .QLUNCH PRN RF: 0 magnesium hydroxide [Milk of Magnesia] 400 mg/5 mL Suspension 30 ml PO DAILY PRN (Reason: Constipation) RF: 0 docusate sodium 100 mg Capsule 100 mg PO BID PRN (Reason: Constipation) RF: 0 ipratropium-albuterol 20-100 mcg/actuation Mist 1 puff INHALATION QID RF: 0 bumetanide 2 mg Tablet 2 mg PO DAILY RF: 0 insulin aspart U-100 [Novolog U-100 Insulin aspart] 100 unit/mL Solution 5 unit SUBCUT TIDM RF: 0 insulin glargine 100 unit/mL Cartridge 15 unit SUBCUT BID RF: 0 amlodipine 10 mg Tablet 10 mg PO DAILY RF: 0 potassium chloride 20 mEq Tablet Extended Release 20 meq PO DAILY RF: 0 gabapentin 300 mg Capsule 300 mg PO TID RF: 0 Anoro Ellipta 62.5-25 mcg/actuation Blister With Device 1 inh INHALATION DAILY RF: 0 lisinopril 10 mg Tablet 10 mg PO QAM Qty: 30 RF: 0 insulin regular human 100 unit/mL Cartridge 1 sliding scale dose SUBCUT USEASDIRECTD RF: 0 Changed oxycodone 5 mg Tablet 10 mg PO Q6H PRN (Reason: pain, severe) Qty: 15 RF: 0 Discontinued cephalexin [Keflex] 500 mg Capsule 500 mg PO QID RF: 0 enoxaparin [Lovenox] 40 mg/0.4 mL Syringe 40 mg SUBCUT BID RF: 0 cyclobenzaprine 5 mg Tablet 5 mg PO TID PRN (Reason: Muscle Spasm) RF: 0 Discharge Orders: Discharge Order (Routine); Ordered 01/12/21 Ordered By: Aaliyah Jang/Other Patient Handouts: High Blood Sugar (Hyperglycemia), Hypoglycemia (Low Blood Sugar), Managing Type 2 Diabetes, Preventing Deep Vein Thrombosis Admission Data Admit Date/Time: 12/30/20 13:13 Attending Provider: Aaliyah Gonzalez I. Admit Provider: Jarod Stephens Primary Care Provider: [facility] Other Providers: [facility] ; [facility], ; Jarod Stephens ; Yovani Lorenzo ; Maurilio Butler ; Leonardo Polanco ; Isacc Stephens I. ; Matt Espinoza II ; Leena Lamas ; Michael Slade ; Ute Arroyo ; Perla Martinez ; Abner Patten Other Interventions: Discharge Summary Assessment (RN) Last Done: 01/12/21 15:22
--- NOTE | 2021-01-21 08:46 | Coding Query ---
ANEMIA To promote full compliance with coding requirements relating to patient care, physician participation is requested in all cases of die storage clerk uncertainty. Please assist us with the question(s) below: Coding Question(s): The record reflects the following clinical findings: Postoperative Blood transfusion given ..H/H monitored . If these findings are indicative of anemia, please specify the known or suspected type by placing an "X" within the parenthesis (x). If other, please document type. Examples are: ( ) Acute blood loss anemia ( ) Acute Postoperative blood loss anemia ( ) Acute postoperative anemia due to dilutional fluids ( ) Chronic blood loss anemia ( ) Anemia of chronic disease ( ) Aplastic anemia ( ) Anemia due to renal disease ( ) Anemia in neoplastic disease ( ) Iron deficient anemia ( ) Anemia, unspecified or other ( x ) Other: (please specify) Acute Postoperative anemia likely due to dilutional fluids and possibly blood loss ( ) Unable to determine Thank you SIRISHA Don [facility]PITALJabier
== END 2021-01-12 17:53 | DRG 513 ==
LOC: ED 09:10 → 3E 13:13 → SUATTDRO 13:13 → 3E 14:21

== ENCOUNTER 2021-02-17 09:03 | Inpatient (IN) ==
--- NOTE | 2021-02-17 09:50 | XRay Report ---
XR chest 1V portable HISTORY: 66 years-old Male weakness acute weakness COMPARISON: Chest radiograph 12/13/2020, CTA chest 12/08/2020. TECHNIQUE: AP view of the chest. FINDINGS: Volume loss of the right lung is redemonstrated. Trace pleural effusions with right greater than left bilateral airspace opacities. These have mildly improved from the 12/13/2020 exam. Cardiac silhouette is enlarged. No pneumothorax. Degenerative changes of the shoulders and spine. Interval removal of th e right-sided PICC. IMPRESSION: 1. Right greater than left bilateral airspace opacities have mildly improved from comparison. 2. Trace pleural effusions. 3. Interval removal of the right-sided PICC. ACT 112: Negative or not required by law. The above report was generated using voice recognition software. It may contain grammatical, syntax o r spelling errors. Electronically signed by: Jonathon Oswald M.D. 02/17/2021 9:49 AM
--- NOTE | 2021-02-17 10:23 | CT Scan Report ---
CT head/brain wo con CLINICAL HISTORY: 66 years-old Male with weakness, fatigue, headache. Acute weakness with fatigue an d headache TECHNIQUE: Multiple axial CT images of the head were obtained without contrast. A dose lowering tech nique was utilized adhering to the principles of ALARA. CT DOSE: 537.48 mGy.cm COMPARISON: Head CT 11/29/2020 FINDINGS: No acute intracranial hemorrhage, midline shift, intracranial mass, hydrocephalus, territorial ischem ia or abnormal extra-axial collection. Mild involutional changes. Cerebral vascular calcifications. The calvarium is intact. Prior bilateral lens repair. The paranasal sinuses, mastoid air cells, and m iddle ear cavities are clear. IMPRESSION: No acute intracranial abnormality. ACT 112: Negative or not required by law. The above report was generated using voice recognition software. It may contain grammatical, syntax o r spelling errors. Electronically signed by: Jonathon Oswald M.D. 02/17/2021 10:21 AM
[2021-02-17 11:23] LABS: Basophils # (auto) 0.02 K/uL (0-0.2); Basophils % (auto) 0.3 %; Eosinophils # (auto) 0.26 K/uL (0-0.5); Eosinophils % (auto) 3.6 %; Hematocrit (blood only) 26.1 % (42-52); Hemoglobin 8.2 g/dL (14.0-18.0); Immature Granulocytes # (auto) 0.02 K/uL (0.00-0.02); Immature Granulocytes % (auto) 0.3 %; Lymphocytes # (auto) 1.31 K/uL (1.2-3.4); Mean Corpuscular Hemoglobin 27.2 pg (25-34); Mean Corpuscular Hgb Conc 31.4 g/dL (32-36); Mean Corpuscular Volume 86.7 fL (80-100); Mean Platelet Volume 8.9 fL (7.4-10.4); Monocytes # (auto) 0.58 K/uL (0.11-0.59); Neutrophils # (auto) 5.08 K/uL (1.4-6.5); Neutrophils % (auto) 69.8 %; Platelet Count 235 K/uL (130-400); RDW Coefficient of Variation 16.1 % (11.5-14.5); Red Blood Count 3.01 M/uL (4.7-6.1); White Blood Count 7.27 K/uL (4.8-10.8)
[2021-02-17 11:39] LABS: Alanine Aminotransferase 16 U/L (12-78); Albumin Level 2.9 gm/dl (3.4-5.0); Aspartate Aminotransferase 11 U/L (15-37); BUN Creatinine Ratio 11.8 (10-20); Blood Urea Nitrogen 41 mg/dl (7-18); Calcium 9.7 mg/dl (8.5-10.1); Carbon Dioxide 28 mmol/L (21-32); Chloride 102 mmol/L (98-107); Creatinine Clr Calc Pharmacy 33.9 ml/min; Est GFR (African American) 20.1 ml/min; Est GFR (Non-African American) 17.4 ml/min; Glucose 123 mg/dl (70-99); Magnesium 3.2 mg/dl (1.8-2.4); Potassium 4.6 mmol/L (3.5-5.1); Sodium 137 mmol/L (136-145)
[2021-02-17 11:42] LABS: INR 1.1 (0.9-1.1); Prothrombin Time 10.9 Seconds (9.0-12.0)
[2021-02-17 11:43] LABS: Base Excess VBG 3.7 mEq/L; Oxygen Saturation VBG 65.8 %; pH VBG 7.36 (7.36-7.41)
[2021-02-17 11:49] LABS: Albumin Globulin Ratio 0.8 (0.9-2); Alkaline Phosphatase 143 U/L (45-117); Bilirubin,Total 0.2 mg/dl (0.2-1); Creatine Kinase 56 U/L (39-308); Globulin 3.9 gm/dl (2.5-4.0); Total Protein 6.8 gm/dl (6.4-8.2); Troponin I < 0.015 ng/ml (0-0.045)
[2021-02-17 12:05] LABS: Appearance Urine Clear (Clear); Bilirubin Urine Negative (Negative); Blood Urine Negative (Negative); Color Urine Yellow; Glucose Urine UA Negative (Negative); Ketones Urine Negative (Negative); Leukocyte Esterase Urine Negative (Negative); Nitrite Urine Negative (Negative); Protein Urine Negative (Negative); Specific Gravity Urine 1.012 (1.000-1.030); Urobilinogen Urine Negative (Negative)
[2021-02-17] MEDS ORDERED: SODIUM CHLORIDE 0.9% 500 ML IV ONE (13:07)
--- NOTE | 2021-02-17 13:26 | Emergency Department Note ---
Impression & Plan Acute kidney injury superimposed on CKD, Weakness, Confusion ED Provider Note Provider: Leobardo Mayorga MD DATE OF SERVICE: 02/17/2021 CHIEF COMPLAINT: Confusion, renal dysfunction HISTORY OF PRESENT ILLNESS: Patient is a 66-year-old gentleman with significant past medical history of CKD, chronic respiratory failure with home oxygen uses, CHF, COPD, diabetes, CAD, and recent hand infection presenting via ambulance from facility reporting that patient was more confused today and was hypoxic. Patient also had blood work from 2 days ago showing evidence of some renal dysfunction. Upon arrival here the patient states that he does not feel short of breath. Patient reports he feels fatigued and a little bit foggy. He denies any falls. Denies any nausea vomiting or diarrhea. Denies significant change in chronic cough. Patient is reportedly on 2 to 3 L at baseline is on this here. Patient states he has been urinating frequently and has been on diuretics. Patient has been on Bactrim for his hand infection. No fevers are reported. Patient does seem somewhat slow to answer at times but does not appear acutely altered. REVIEW OF SYSTEMS: A total of 10 review of systems was obtained and negative except as stated above in the HPI. PAST MEDICAL HISTORY: As noted above MEDICATIONS: Reviewed medication list from facility SOCIAL HISTORY: Currently resides at residential facility PHYSICAL EXAM: GENERAL: alert and oriented in no acute distress on stretcher but does appear somewhat fatigued Head: normocephalic and atraumatic EYES: No injection, discharge or icterus. PERRL NECK: Trachea midline. ENT: Mucous membranes pink and moist. LUNGS: Airway patent. No retractions. Breath sounds diminished in the bases with some fine crackles. HEART: Regular rate and rhythm. No chest wall tenderness ABDOMEN: Soft and non-tender, without guarding or rebound. SKIN: Acyanotic, warm, dry, without rashes EXTREMITIES: Patient with an approximately 4 cm area of granulated wound of the right dorsal hand with some trace serous discharge here and a small amount of granulation tissue. Minimal surrounding erythema. Patient has some bilateral 1+ edema of the lower extremities. NEUROLOGICAL: No focal deficits. No aphasia. No facial droop or slurred speech. EK bpm sinus bradycardia. No PVC or PAC. Left axis and right bundle branch block are noted. 2 inversions in lead III as well as across the precordium are noted. In comparison to previous on December 30 of this year similar CONTINUOUS CARDIAC MONITORING: was ordered and showed a heart rate of 50s to 60s bpm in normal sinus rhythm to sinus bradycardia Patient's laboratory studies and imaging reviewed. Differential includes Infection, dehydration, metabolic abnormality, hypo/hyperglycemia, electrolyte disturbance, anemia, hypoxia, cardiac sources, intracerebral event, toxicologic, neurologic, as well as other pathologies. IMPRESSION/MEDICAL DECISION MAKING: Patient significant focal neurological deficit. No clear last known well and lower suspicion for CVA. Patient does not appear meningeal. CT head complete without acute intracranial bleed or abnormality noted. Chest x-ray per radiology with right greater than left airspace opacities that have improved some compared to previous with trace effusions. Some difficulty obtaining IV access but blood work eventually obtained. Patient has been on what seems to be his baseline oxygen without significant hypoxia here. Given this I do not b elieve we need to pursue a PE study at this time. VBG not indicative of hypercarbia at this point. Patient without significant leukocytosis and stable mild anemia. Renal function is abnormal from his baseline just below 2 but slightly improved from 2 days ago with a BUN of 41 and a creatinine of 3.5. No lactate elevation. No elevated ammonia. TSH within normal limits. Troponin is undetectable. Urine does not appear infected. Blood cultures were obtained however and a wound culture from his posterior right hand was obtained. Do not feel we need to broaden antibiotics at this time as he has been on Bactrim. Question if this Bactrim however is causing some of his renal dysfunction. Patient has been urinating well here and lower suspicion for obstructive pathology. Patient is also been on good doses of Bumex likely stressing his kidneys some. No clear explanation for his mentation change at this point. Patient's slight uremia is not significantly elevated that I would expect him to be fatigued and encephalopathic from. Patient persistently Covid positive today and has been positive since the end of November. Given these findings however feel that further observation here at the hospital and care is warranted and the patient was in agreement. The hospitalist was contacted. Given a very small IV fluid bolus. DIAGNOSIS: JARROD on CKD, confusion, weakness DISPOSITION: Hospitalist will evaluate Patient was agreeable with this plan. Past Med/Surg History Medical History Chronic diastolic CHF (congestive heart failure) Chronic respiratory failure with hypoxia CKD (chronic kidney disease) stage 3, GFR 30-59 ml/min Coronary artery disease Depression Diabetes mellitus, type II History of COVID-19 Hyperlipidemia Hypertension Morbid obesity FRANCIS (obstructive sleep apnea) Surgical History H/O knee surgery Family History Other Throat cancer Social History Smoking Status: Never smoker Second Hand Exposure: No; Hx Alcohol Use: Yes Alcohol type: beer Hx Substance Use: No Preferred Language: [place]ian Communication Ability: Effective Pulp Cooker Required: No Beliefs That Will Affect Care: None marital status: Single Current Living Situation: Rehab Current Living Situation Comment: [facility]. How many Children do You have: 0 Feels Safe at Home: Yes Assistive Devices: Glasses Allergies Allergies Allergy/AdvReac Type Severity Reaction Status Date / Time No Known Allergies Allergy Verified 02/17/21 11:50 Home Meds Home Medications Medication Instructions Recorded Confirmed acetaminophen 325 mg tablet 650 mg PO Q4 PRN 11/29/20 02/17/21 (Tylenol) amlodipine 10 mg tablet (Norvasc) 10 mg PO QAM 11/29/20 02/17/21 atorvastatin 40 mg tablet 40 mg PO HS 11/29/20 02/17/21 bumetanide 2 mg tablet 2 mg PO QAM 11/29/20 02/17/21 carvedilol 12.5 mg tablet (Coreg) 12.5 mg PO BIDM 11/29/20 02/17/21 cholecalciferol (vitamin D3) 50 50 mcg PO DAILY 11/29/20 02/17/21 mcg (2,000 unit) capsule (Vitamin D3) docusate sodium 100 mg capsule 100 mg PO BID PRN 11/29/20 02/17/21 (Stool Softener) duloxetine 30 mg capsule,delayed 60 mg PO DAILY 11/29/20 02/17/21 release ferrous sulfate 325 mg (65 mg 325 mg PO BID 11/29/20 02/17/21 iron) tablet (Iron (ferrous sulfate)) gabapentin 300 mg capsule 300 mg PO TID 11/29/20 02/17/21 (Neurontin) montelukast 10 mg tablet 10 mg PO HS 11/29/20 02/17/21 (Singulair) pantoprazole 40 mg tablet,delayed 40 mg PO DAILY 11/29/20 02/17/21 release (Protonix) polyethylene glycol 3350 17 gram 17 g PO DAILY PRN 11/29/20 02/17/21 oral powder packet (Miralax) potassium chloride 20 mEq 20 meq PO DAILY 11/29/20 02/17/21 tablet,extended release (K-Tab) sertraline 100 mg tablet (Zoloft) 100 mg PO DAILY 11/29/20 02/17/21 tamsulosin 0.4 mg capsule (Flomax) 0.8 mg PO DAILY 11/29/20 02/17/21 umeclidinium 62.5 mcg-vilanterol 1 inh INHALATION DAILY 11/29/20 02/17/21 25 mcg/actuation powdr for inhalation (Anoro Ellipta) albuterol sulfate 90 mcg/actuation 1 inh INHALATION QID 02/17/21 02/17/21 aerosol inhaler (Proventil HFA) insulin aspart U-100 100 unit/mL 1 sliding scale dose SUBCUT 02/17/21 02/17/21 subcutaneous solution (Novolog USEASDIRECTD U-100 Insulin aspart) insulin glargine 100 unit/mL 15 unit SUBCUT BID 02/17/21 02/17/21 subcutaneous solution (Lantus U-100 Insulin) lisinopril 10 mg tablet (Zestril) 10 mg PO QAM 02/17/21 02/17/21 oxycodone 5 mg tablet (Roxicodone) 5 mg PO Q12 02/17/21 02/17/21 oxycodone 5 mg tablet (Roxicodone) 10 mg PO Q6H PRN 02/17/21 02/17/21 sennosides 8.6 mg capsule (senna) 8.6 mg PO DAILY PRN 02/17/21 02/17/21 sulfamethoxazole 800 1 tab PO BID 02/17/21 02/17/21 mg-trimethoprim 160 mg tablet (Bactrim DS) Results & Data (ED) Vital Signs Vital Signs - 24 hr 02/17/21 08:55 02/17/21 09:23 02/17/21 11:53 Temperature 36.6 C Temperature Source Oral Pulse Rate 55 L 59 L Pulse Rate [Right Finger] 58 L Pulse Rhythm Regular Regular Pulse Strength Normal Respiratory Rate 18 18 20 Respiratory Effort / Characteristics Accessory Muscle Use Respiratory Depth Normal Respiratory Pattern Regular Blood Pressure 110/55 L Blood Pressure [Right Arm] 110/55 L Blood Pressure Mean 73 Blood Pressure Mean [Right Arm] 73 Blood Pressure Position Lying Pulse Oximetry 100 100 99 Oxygen Delivery Method Nasal Cannula Nasal Cannula Nasal Cannula Oxygen Flow Rate 3 3 2 Sepsis Recent Fever Within 48 Hours No Sepsis New/Unexplained Change in Mental Status Yes Sepsis Action Taken by Nursing No Action Required Laboratory Data Result diagrams: 02/17/21 11:13 02/17/21 11:13 Lab Results 02/17/21 02/17/21 02/17/21 Range/Units 11:13 11:13 11:13 WBC 7.27 (4.8-10.8) K/uL RBC 3.01 L (4.7-6.1) M/uL Hgb 8.2 L (14.0-18.0) g/dL Hct 26.1 L (42-52) % MCV 86.7 (80-100) fL MCH 27.2 (25-34) pg MCHC 31.4 L (32-36) g/dL RDW Std Deviation 51.0 H (36.4-46.3) fL RDW Coeff of Xin 16.1 H (11.5-14.5) % Plt Count 235 (130-400) K/uL MPV 8.9 (7.4-10.4) fL Immature Gran % (Auto) 0.3 % Neut % (Auto) 69.8 % Lymph % (Auto) 18.0 % Glenn % (Auto) 8.0 % Eos % (Auto) 3.6 % Baso % (Auto) 0.3 % Neut # (Auto) 5.08 (1.4-6.5) K/uL Lymph # (Auto) 1.31 (1.2-3.4) K/uL Glenn # (Auto) 0.58 (0.11-0.59) K/uL Eos # (Auto) 0.26 (0-0.5) K/uL Baso # (Auto) 0.02 (0-0.2) K/uL Immature Gran # (Auto) 0.02 (0.00-0.02) K/uL PT 10.9 (9.0-12.0) Seconds INR 1.1 (0.9-1.1) VBG pH (7.36-7.41) VBG pCO2 (38-50) mmHg VBG pO2 mmHg VBG HCO3 mmol/L VBG O2 Saturation % VBG Base Excess mEq/L Barometric Pressure mm/Hg Sodium 137 (136-145) mmol/L Potassium 4.6 (3.5-5.1) mmol/L Chloride 102 (98-107) mmol/L Carbon Dioxide 28 (21-32) mmol/L Anion Gap 7.0 (3-11) BUN 41 H (7-18) mg/dl Creatinine 3.51 H (0.6-1.4) mg/dl Est Cr Clr Drug Dosing 33.9 ml/min Est GFR ( Amer) 20.1 ml/min Est GFR (Non-Af Amer) 17.4 ml/min BUN/Creatinine Ratio 11.8 (10-20) Glucose 123 H (70-99) mg/dl Lactate (0.4-2.0) mmol/L Calcium 9.7 (8.5-10.1) mg/dl Magnesium 3.2 H (1.8-2.4) mg/dl Total Bilirubin 0.2 (0.2-1) mg/dl AST 11 L (15-37) U/L ALT 16 (12-78) U/L Alkaline Phosphatase 143 H (45-117) U/L Ammonia (11-32) umol/L Total Creatine Kinase 56 (39-308) U/L Troponin I < 0.015 (0-0.045) ng/ml Total Protein 6.8 (6.4-8.2) gm/dl Albumin 2.9 L (3.4-5.0) gm/dl Globulin 3.9 (2.5-4.0) gm/dl Albumin/Globulin Ratio 0.8 L (0.9-2) TSH 2.130 (0.300-4.500) uIu/ml Urine Color Urine Appearance (Clear) Urine pH (4.5-7.5) Ur Specific [place] (1.000-1.030) Urine Protein (Negative) Urine Glucose (UA) (Negative) Urine Ketones (Negative) Urine Blood (Negative) Urine Nitrite (Negative) Urine Bilirubin (Negative) Urine Urobilinogen (Negative) Ur Leukocyte Esterase (Negative) COVID-19 Eval Order SARS-CoV-2 (PCR) (Negative) 02/17/21 02/17/21 02/17/21 Range/Units 11:14 11:14 11:25 WBC (4.8-10.8) K/uL RBC (4.7-6.1) M/uL Hgb (14.0-18.0) g/dL Hct (42-52) % MCV (80-100) fL MCH (25-34) pg MCHC (32-36) g/dL RDW Std Deviation (36.4-46.3) fL RDW Coeff of Xin (11.5-14.5) % Plt Count (130-400) K/uL MPV (7.4-10.4) fL Immature Gran % (Auto) % Neut % (Auto) % Lymph % (Auto) % Glenn % (Auto) % Eos % (Auto) % Baso % (Auto) % Neut # (Auto) (1.4-6.5) K/uL Lymph # (Auto) (1.2-3.4) K/uL Glenn # (Auto) (0.11-0.59) K/uL Eos # (Auto) (0-0.5) K/uL Baso # (Auto) (0-0.2) K/uL Immature Gran # (Auto) (0.00-0.02) K/uL PT (9.0-12.0) Seconds INR (0.9-1.1) VBG pH (7.36-7.41) VBG pCO2 (38-50) mmHg VBG pO2 mmHg VBG HCO3 mmol/L VBG O2 Saturation % VBG Base Excess mEq/L Barometric Pressure mm/Hg Sodium (136-145) mmol/L Potassium (3.5-5.1) mmol/L Chloride (98-107) mmol/L Carbon Dioxide (21-32) mmol/L Anion Gap (3-11) BUN (7-18) mg/dl Creatinine (0.6-1.4) mg/dl Est Cr Clr Drug Dosing ml/min Est GFR ( Amer) ml/min Est GFR (Non-Af Amer) ml/min BUN/Creatinine Ratio (10-20) Glucose (70-99) mg/dl Lactate 1.1 (0.4-2.0) mmol/L Calcium (8.5-10.1) mg/dl Magnesium (1.8-2.4) mg/dl Total Bilirubin (0.2-1) mg/dl AST (15-37) U/L ALT (12-78) U/L Alkaline Phosphatase (45-117) U/L Ammonia (11-32) umol/L Total Creatine Kinase (39-308) U/L Troponin I (0-0.045) ng/ml Total Protein (6.4-8.2) gm/dl Albumin (3.4-5.0) gm/dl Globulin (2.5-4.0) gm/dl Albumin/Globulin Ratio (0.9-2) TSH (0.300-4.500) uIu/ml Urine Color Urine Appearance (Clear) Urine pH (4.5-7.5) Ur Specific [place] (1.000-1.030) Urine Protein (Negative) Urine Glucose (UA) (Negative) Urine Ketones (Negative) Urine Blood (Negative) Urine Nitrite (Negative) Urine Bilirubin (Negative) Urine Urobilinogen (Negative) Ur Leukocyte Esterase (Negative) COVID-19 Eval Order Covid19 at [facility] SARS-CoV-2 (PCR) POSITIVE A* (Negative) 02/17/21 02/17/21 02/17/21 Range/Units 11:25 11:25 12:00 WBC (4.8-10.8) K/uL RBC (4.7-6.1) M/uL Hgb (14.0-18.0) g/dL Hct (42-52) % MCV (80-100) fL MCH (25-34) pg MCHC (32-36) g/dL RDW Std Deviation (36.4-46.3) fL RDW Coeff of Xin (11.5-14.5) % Plt Count (130-400) K/uL MPV (7.4-10.4) fL Immature Gran % (Auto) % Neut % (Auto) % Lymph % (Auto) % Glenn % (Auto) % Eos % (Auto) % Baso % (Auto) % Neut # (Auto) (1.4-6.5) K/uL Lymph # (Auto) (1.2-3.4) K/uL Glenn # (Auto) (0.11-0.59) K/uL Eos # (Auto) (0-0.5) K/uL Baso # (Auto) (0-0.2) K/uL Immature Gran # (Auto) (0.00-0.02) K/uL PT (9.0-12.0) Seconds INR (0.9-1.1) VBG pH 7.36 (7.36-7.41) VBG pCO2 54 H (38-50) mmHg VBG pO2 38 mmHg VBG HCO3 30 mmol/L VBG O2 Saturation 65.8 % VBG Base Excess 3.7 mEq/L Barometric Pressure 733.2 mm/Hg Sodium (136-145) mmol/L Potassium (3.5-5.1) mmol/L Chloride (98-107) mmol/L Carbon Dioxide (21-32) mmol/L Anion Gap (3-11) BUN (7-18) mg/dl Creatinine (0.6-1.4) mg/dl Est Cr Clr Drug Dosing ml/min Est GFR ( Amer) ml/min Est GFR (Non-Af Amer) ml/min BUN/Creatinine Ratio (10-20) Glucose (70-99) mg/dl Lactate (0.4-2.0) mmol/L Calcium (8.5-10.1) mg/dl Magnesium (1.8-2.4) mg/dl Total Bilirubin (0.2-1) mg/dl AST (15-37) U/L ALT (12-78) U/L Alkaline Phosphatase (45-117) U/L Ammonia < 10.0 L (11-32) umol/L Total Creatine Kinase (39-308) U/L Troponin I (0-0.045) ng/ml Total Protein (6.4-8.2) gm/dl Albumin (3.4-5.0) gm/dl Globulin (2.5-4.0) gm/dl Albumin/Globulin Ratio (0.9-2) TSH (0.300-4.500) uIu/ml Urine Color Yellow Urine Appearance Clear (Clear) Urine pH 7.0 (4.5-7.5) Ur Specific [place] 1.012 (1.000-1.030) Urine Protein Negative (Negative) Urine Glucose (UA) Negative (Negative) Urine Ketones Negative (Negative) Urine Blood Negative (Negative) Urine Nitrite Negative (Negative) Urine Bilirubin Negative (Negative) Urine Urobilinogen Negative (Negative) Ur Leukocyte Esterase Negative (Negative) COVID-19 Eval Order SARS-CoV-2 (PCR) (Negative) Imaging Data Radiologist's Impression: Chest X-Ray 02/17/21 09:23 XR chest 1V portable HISTORY: 66 years-old Male weakness acute weakness COMPARISON: Chest radiograph 12/13/2020, CTA chest 12/08/2020. TECHNIQUE: AP view of the chest. FINDINGS: Volume loss of the right lung is redemonstrated. Trace pleural effusions with right greater than left bilateral airspace opacities. These have mildly improved from the 12/13/2020 exam. Cardiac silhouette is enlarged. No pneumothorax. Degenerative changes of the shoulders and spine. Interval removal of the right- sided PICC. IMPRESSION: 1. Right greater than left bilateral airspace opacities have mildly improved from comparison. 2. Trace pleural effusions. 3. Interval removal of the right-sided PICC. ACT 112: Negative or not required by law. The above report was generated using voice recognition software. It may contain grammatical, syntax or spelling errors. Electronically signed by: Jonathon Oswald M.D. 02/17/2021 9:[address] 02/17/21 09:23 CT head/brain wo con CLINICAL HISTORY: 66 years-old Male with weakness, fatigue, headache. Acute weakness with fatigue and headache TECHNIQUE: Multiple axial CT images of the head were obtained without contrast. A dose lowering technique was utilized adhering to the principles of ALARA. CT DOSE: 537.48 mGy.cm COMPARISON: Head CT 11/29/2020 FINDINGS: No acute intracranial hemorrhage, midline shift, intracranial mass, hydrocephalus, territorial ischemia or abnormal extra-axial collection. Mild in volutional changes. Cerebral vascular calcifications. The calvarium is intact. Prior bilateral lens repair. The paranasal sinuses, mastoid air cells, and middle ear cavities are clear. IMPRESSION: No acute intracranial abnormality. ACT 112: Negative or not required by law. The above report was generated using voice recognition software. It may contain grammatical, syntax or spelling errors. Electronically signed by: Jonathon Oswald M.D. 02/17/2021 10:21 AM Discharge Plan Visit Data Chief Complaint: Illness Stated Complaint: ABNORMAL LABS, AMS ED Provider: Leobardo Mayorga Discharge Problem: Acute kidney injury superimposed on CKD, Weakness, Confusion Patient Disposition: Being Evaluated by Hospitalist Forms Stand Alone Forms: My [facility] Prescriptions Prescriptions: No Action atorvastatin 40 mg Tablet 40 mg PO HS RF: 0 carvedilol [Coreg] 12.5 mg Tablet 12.5 mg PO BIDM RF: 0 sertraline [Zoloft] 100 mg Tablet 100 mg PO DAILY RF: 0 tamsulosin [Flomax] 0.4 mg Capsule 0.8 mg PO DAILY RF: 0 pantoprazole [Protonix] 40 mg Tablet,Delayed Release (Dr/Ec) 40 mg PO DAILY RF: 0 ferrous sulfate [Iron (ferrous sulfate)] 325 mg (65 mg iron) Tablet 325 mg PO BID RF: 0 montelukast [Singulair] 10 mg Tablet 10 mg PO HS RF: 0 duloxetine 30 mg Capsule,Delayed Release(Dr/Ec) 60 mg PO DAILY RF: 0 cholecalciferol (vitamin D3) [Vitamin D3] 50 mcg (2,000 unit) Capsule 50 mcg PO DAILY RF: 0 acetaminophen [Tylenol] 325 mg Tablet 650 mg PO Q4 PRN (Reason: PAIN , SCALE 1-3) RF: 0 polyethylene glycol 3350 [Miralax] 17 gram Powder In Packet 17 g PO DAILY PRN (Reason: Constipation) RF: 0 docusate sodium [Stool Softener] 100 mg Capsule 100 mg PO BID PRN (Reason: Constipation) RF: 0 bumetanide 2 mg Tablet 2 mg PO QAM RF: 0 amlodipine [Norvasc] 10 mg Tablet 10 mg PO QAM RF: 0 potassium chloride [K-Tab] 20 mEq Tablet Extended Release 20 meq PO DAILY RF: 0 gabapentin [Neurontin] 300 mg Capsule 300 mg PO TID RF: 0 Anoro Ellipta 62.5-25 mcg/actuation Blister With Device 1 inh INHALATION DAILY RF: 0 Lantus U-100 Insulin 100 unit/mL Solution 15 unit SUBCUT BID RF: 0 sulfamethoxazole-trimethoprim [Bactrim DS] 800-160 mg Tablet 1 tab PO BID RF: 0 insulin aspart U-100 [Novolog U-100 Insulin aspart] 100 unit/mL Solution 1 sliding scale dose SUBCUT USEASDIRECTD RF: 0 albuterol sulfate [Proventil HFA] 90 mcg/actuation Hfa Aerosol Inhaler 1 inh INHALATION QID RF: 0 oxycodone [Roxicodone] 5 mg Tablet 5 mg PO Q12 RF: 0 senna 8.6 mg Capsule 8.6 mg PO DAILY PRN (Reason: Constipation) RF: 0 lisinopril [Zestril] 10 mg tablet 10 mg PO QAM RF: 0 oxycodone [Roxicodone] 5 mg tablet 10 mg PO Q6H PRN (Reason: Breakthrough Pain) RF: 0 Referrals Referrals: Esteban Wang [Primary Care Provider] -
--- NOTE | 2021-02-17 13:39 | History & Physical Report ---
Date of Service February 17, 2021 Assessment & Plan (1) Metabolic encephalopathy: Plan: Patient is 66-year-old male with PMH COVID-19 in 10/2020 and has continued to test positive, DM II, CKD III, chronic respiratory failure on 2L O2, COPD, CHF with preserved EF, HTN, HLD, FRANCIS intolerant to CPAP, morbid obesity, anemia presented to ER from [facility] for altered mental status. In ER vitals stable, no leukocytosis, Hgb: 8.2, K: 4.6, Cr: 3.5 CT head: No acute intracranial findings Possible secondary to JARROD Monitor (2) Acute kidney injury superimposed on CKD: Plan: H/O CKD III BUN: 41, Cr: 3.5. Cr was 1.9 on 02/03/2021. K: 4.6 Possible causes vancomycin, Bactrim. Patient also on lisinopril and Bumex In ER given 500ml NSS Hold vancomycin, Bactrim, lisinopril and Bumex at this time Monitor renal functions, avoid nephrotoxic agents when possible Consult nephrology. Discussed with Dr. Mccrary, does not anticipate patient will need dialysis over the weekend (3) Septic arthritis of hand, right: Plan: History hospitalization 12/30-01/12/21 at [facility] for right dorsal hand abscess and third MCP septic arthritis. S/P I&D on 12/31/2020. S/P washout 01/03/2021. + MRSA on wound culture. Was treated with vancomycin and discharged to [facility] on vancomycin for 5 additional weeks Bactrim started 02/06/21 Blood cultures pending Wound culture from ER pending Vitals stable, No leukocytosis. Will hold on additional antibiotics at this time (4) Chronic diastolic CHF (congestive heart failure): Plan: CHF with preserved EF Appears to be euvolemic at this time Hold Bumex and monitor volume status (5) History of COVID-19: Plan: H/O positive COVID 19 test 10/20/2020. Was hospitalized at [facility] for acute respiratory failure secondary to Covid pneumonia and decompensated CHF. He was treated with tocilizumab, remdesivir, dexamethasone. Continues to test positive COVID 19 PCR CXR: Right greater than left bilateral airspace opacities have mildly improved from comparison Will place on isolation (6) COPD (chronic obstructive pulmonary disease): Plan: Chronic respiratory failure. On 2L oxygen No signs exacerbation Continue supplemental oxygen Continue home inhalers (7) Diabetes mellitus, type II: Plan: A1c: 7.1 on 11/30 Continue home Lantus NovoLog sliding scale per protocol (8) Coronary artery disease: Plan: Denies any shortness of breath, chest pain Continue carvedilol, atorvastatin (9) Anemia: Plan: Hgb: 8.2 (Hgb 8-10 during last couple of months) Last admission hemoglobin dropped to 6.9 post op. s/p 1 unit PRBCs on 01/01/2021 No signs of active bleeding. Denies melena, hematochezia Monitor H&H Transfuse as needed Continue iron supplement (10) Hypertension: Plan: BP 110/55 Hold lisinopril with JARROD Continue carvedilol, amlodipine with holding parameters (11) Hyperlipidemia: Plan: Continue atorvastatin (12) Depression: Plan: Continue duloxetine, sertraline (13) FRANCIS (obstructive sleep apnea): Plan: Noncompliant with CPAP DVT Prophylaxis -SCDs Full Code as per discussion with pt Currently at [facility] Pt was seen and care coordinated with Dr Irwin. See addendum History of Present Illness Chief Complaint: Altered mental status Primary Care Provider: Esteban [facility] Patient is 66-year-old male with PMH COVID-19 in 10/2020 and has continued to test positive, DM II, CKD III, chronic respiratory failure on 2L O2, COPD, CHF with preserved EF, HTN, HLD, FRANCIS intolerant to CPAP, morbid obesity, anemia presented to ER from [facility] for altered mental status. Patient with history hospitalization 12/30-01/12/21 at [facility] for right dorsal hand abscess and third MCP septic arthritis. S/P I&D on 12/31/2020. S/P washout 01/03/2021. + MRSA on wound culture. Was treated with vancomycin and discharged to [facility] on vancomycin for 5 additional weeks. During that admission also had anemia after surgery with drop in hemoglobin to 6.9 s/p 1 unit PRBCs on 01/01/2021. Patient was started on Bactrim on 02/06/2021. Patient with some current confusion, however denies chest pain, shortness of breath, cough, rhinorrhea, fever, chills. He states he is thirsty and throat feels dry but denies sore throat. Denies any increased pain, swelling or redness to right hand. He does not think there has been discharged from right hand. Patient unsure about lower extremity edema as he reports he cannot see his legs. Denies N/V/D/C, HAMILTON, dizziness, syncope, vision changes, neck pain, palpitations, choking, otalgia, abdominal pain, paresthesias, other rashes, urinary symptoms. Patient with history positive COVID 19 test 10/20/2020. He was hospitalized at [facility] for acute respiratory failure secondary to Covid pneumonia and decompensated CHF. He was treated with tocililumab, remdesivir, dexamethasone. Hospitalization 11/29/2020-12/01/2020 at [facility] for Covid pneumonia, acute respiratory failure Hospitalization 12/08-12/21/20 at [facility] for acute respiratory failure Today in ER vitals stable, no leukocytosis. Was found to have JARROD on CKD. BUN: 41, Cr: 3.5 (was 1.9 on 02/03/2021). CT head no acute changes Patient being admitted for further evaluation and treatment Allergies Allergy/AdvReac Type Severity Reaction Status Date / Time No Known Allergies Allergy Verified 02/17/21 11:50 Home Medications Medication Instructions Recorded Confirmed Type acetaminophen 325 mg tablet 650 mg PO Q4 PRN 11/29/20 02/17/21 History (Tylenol) atorvastatin 40 mg tablet 40 mg PO HS 11/29/20 02/17/21 History carvedilol 12.5 mg tablet (Coreg) 12.5 mg PO BIDM 11/29/20 02/17/21 History cholecalciferol (vitamin D3) 50 50 mcg PO DAILY 11/29/20 02/17/21 History mcg (2,000 unit) capsule (Vitamin D3) docusate sodium 100 mg capsule 100 mg PO BID PRN 11/29/20 02/17/21 History (Stool Softener) duloxetine 30 mg capsule,delayed 60 mg PO DAILY 11/29/20 02/17/21 History release ferrous sulfate 325 mg (65 mg 325 mg PO BID 11/29/20 02/17/21 History iron) tablet (Iron (ferrous sulfate)) montelukast 10 mg tablet 10 mg PO HS 11/29/20 02/17/21 History (Singulair) pantoprazole 40 mg tablet,delayed 40 mg PO DAILY 11/29/20 02/17/21 History release (Protonix) polyethylene glycol 3350 17 gram 17 g PO DAILY PRN 11/29/20 02/17/21 History oral powder packet (Miralax) potassium chloride 20 mEq 20 meq PO DAILY 11/29/20 02/17/21 History tablet,extended release (K-Tab) sertraline 100 mg tablet (Zoloft) 100 mg PO DAILY 11/29/20 02/17/21 History tamsulosin 0.4 mg capsule (Flomax) 0.8 mg PO DAILY 11/29/20 02/17/21 History umeclidinium 62.5 mcg-vilanterol 1 inh INHALATION DAILY 11/29/20 02/17/21 History 25 mcg/actuation powdr for inhalation (Anoro Ellipta) albuterol sulfate 90 mcg/actuation 1 inh INHALATION QID 02/17/21 02/17/21 History aerosol inhaler (Proventil HFA) insulin aspart U-100 100 unit/mL 1 sliding scale dose SUBCUT 02/17/21 02/17/21 History subcutaneous solution (Novolog USEASDIRECTD U-100 Insulin aspart) insulin glargine 100 unit/mL 15 unit SUBCUT BID 02/17/21 02/17/21 History subcutaneous solution (Lantus U-100 Insulin) sennosides 8.6 mg capsule (senna) 8.6 mg PO DAILY PRN 02/17/21 02/17/21 History daptomycin 500 mg intravenous 850 mg IV DAILY 12 Days ea 02/22/21 Rx solution (Cubicin) Lactobacillus acidoph-L.bulgaricus 1 tab PO TID #60 tab 02/23/21 Rx 1 million cell chewable tablet (Lactinex) amlodipine 5 mg tablet (Norvasc) 5 mg PO QAM 30 Days #30 tab 02/23/21 Rx bumetanide 1 mg tablet 1 mg PO QAM 30 Days #30 tab 02/23/21 Rx gabapentin 100 mg capsule 200 mg PO TID 30 Days #180 cap 02/23/21 Rx metronidazole 500 mg tablet 500 mg PO Q8H 14 Days #42 tab 02/23/21 Rx (Flagyl) oxycodone 5 mg tablet (Roxicodone) 5 mg PO Q12H PRN 5 Days #10 tab 02/23/21 Rx quetiapine 25 mg tablet 25 mg PO HS 30 Days #30 tab 02/23/21 Rx Past Med/Surg History Medical History Chronic diastolic CHF (congestive heart failure) Chronic respiratory failure with hypoxia Coronary artery disease Depression Diabetes mellitus, type II History of COVID-19 Hyperlipidemia Hypertension Morbid obesity FRANCIS (obstructive sleep apnea) Surgical History H/O knee surgery Family History Other Throat cancer Social History Smoking Status: Never smoker Second Hand Exposure: No; Hx Alcohol Use: No Hx Substance Use: Yes Last Used Substance: Unknown Preferred Language: Upper Sorbian Communication Ability: Effective 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: No Beliefs That Will Affect Care: None marital status: Single Current Living Situation: Rehab Current Living Situation Comment: [facility] How many Children do You have: 0 Feels Safe at Home: Yes Assistive Devices: Walker Review of Systems Review of Systems: All systems reviewed & are unremarkable except as noted in HPI & below Physical Exam Physical Exam: General: no acute distress, obese Head: normocephalic, atraumatic Eyes: PERRL, EOM's intact, conjunctiva non-injected, anicteric ENT: normal inspection external ears, nose, mucous membranes moist Neck: supple, trachea midline Lungs: clear, no respiratory distress, no wheezing/rhonchi/rales CV: regular rhythm, bradycardia, 58, no murmur, trace pretibial edema Abd: normal BS, soft, non-tender Ext: no cyanosis, no calf tenderness; R Hand: dorsal hand with +wound, slight granulation tissue, no active drainage, hand with mild edema, no significant warmth Neuro: Alert, oriented to person, month, year. Initially unsure of location, then states is in hospital, unsure what hospital. no focal deficits noted, normal affect Skin: warm, dry Results & Data Results & Data ([facility]) Vital Signs (Past 12 Hours) Vital Signs Temp Pulse Pulse Resp BP BP Pulse Ox 02/17/21 11:53 58 L 20 110/55 L 99 02/17/21 09:23 59 L 18 100 02/17/21 08:55 36.6 C 55 L 18 110/55 L 100 Laboratory Results Short CBC 02/17/21 Range/Units 11:13 WBC 7.27 (4.8-10.8) K/uL Hgb 8.2 L (14.0-18.0) g/dL Hct 26.1 L (42-52) % Plt Count 235 (130-400) K/uL BMP 02/17/21 11:13 Sodium 137 Potassium 4.6 Chloride 102 Carbon Dioxide 28 BUN 41 H Creatinine 3.51 H Glucose 123 H Calcium 9.7 Cardiac Enzymes 02/17/21 Range/Units 11:13 Total Creatine Kinase 56 (39-308) U/L Troponin I < 0.015 (0-0.045) ng/ml Liver Function 02/17/21 Range/Units 11:13 Total Bilirubin 0.2 (0.2-1) mg/dl AST 11 L (15-37) U/L ALT 16 (12-78) U/L Alkaline Phosphatase 143 H (45-117) U/L Albumin 2.9 L (3.4-5.0) gm/dl Urine 02/17/21 Range/Units 12:00 Urine Color Yellow Urine Appearance Clear (Clear) Urine pH 7.0 (4.5-7.5) Ur Specific [place] 1.012 (1.000-1.030) Urine Protein Negative (Negative) Urine Glucose (UA) Negative (Negative) Diagnostic Findings Chest X-Ray 02/17/21 09:23 XR chest 1V portable HISTORY: 66 years-old Male weakness acute weakness COMPARISON: Chest radiograph 12/13/2020, CTA chest 12/08/2020. TECHNIQUE: AP view of the chest. FINDINGS: Volume loss of the right lung is redemonstrated. Trace pleural effusions with right greater than left bilateral airspace opacities. These have mildly improved from the 12/13/2020 exam. Cardiac silhouette is enlarged. No pneumothorax. Degenerative changes of the shoulders and spine. Interval removal of the right- sided PICC. IMPRESSION: 1. Right greater than left bilateral airspace opacities have mildly improved from comparison. 2. Trace pleural effusions. 3. Interval removal of the right-sided PICC. ACT 112: Negative or not required by law. The above report was generated using voice recognition software. It may contain grammatical, syntax or spelling errors. Electronically signed by: Jonathon Oswald M.D. 02/17/2021 9:[address] 02/17/21 09:23 CT head/brain wo con CLINICAL HISTORY: 66 years-old Male with weakness, fatigue, headache. Acute weakness with fatigue and headache TECHNIQUE: Multiple axial CT images of the head were obtained without contrast. A dose lowering technique was utilized adhering to the principles of ALARA. CT DOSE: 537.48 mGy.cm COMPARISON: Head CT 11/29/2020 FINDINGS: No acute intracranial hemorrhage, midline shift, intracranial mass, hydrocephalus, territorial ischemia or abnormal extra-axial collection. Mild involutional changes. Cerebral vascular calcifications. The calvarium is intact. Prior bilateral lens repair. The paranasal sinuses, mastoid air cells, and middle ear cavities are clear. IMPRESSION: No acute intracranial abnormality. ACT 112: Negative or not required by law. The above report was generated using voice recognition software. It may contain grammatical, syntax or spelling errors. Electronically signed by: Jonathon Oswald M.D. 02/17/2021 10:21 AM Supervising Physician Co-Signing Physician Notes Pt was seen and examined. Agreed with Kayla MENON exam, assessment and plan. 66-year-old male with PMH COVID-19 in 10/2020 and has continued to test positive, DM II, CKD III, chronic respiratory failure on 2L O2, COPD, CHF with preserved EF, HTN, HLD, FRANCIS intolerant to CPAP, morbid obesity, anemia presented to ER from [facility] for altered mental status. Pt had multiple admission with the most recent one last monthfor for right dorsal hand abscess and third MCP septic arthritis. He was discharged to [facility] on IV Vanco for 5 weeks. At [facility] he was started on Bactrium Denies chest pain, shortness of breath, cough, rhinorrhea, fever, chills, palpitations, choking, otalgia, abdominal pain, paresthesias. Today in ER vitals stable, no leukocytosis, COVID 19 Positive, BUN: 41, Cr: 3.5 (was 1.9 on 02/03/2021). CT head no acute intracranial abnormality. In ER received 500ml NSS. Will hold vancomycin, Bactrim, lisinopril and Bumex at this time. Nephrology consult. avoid nephrotoxic agents when possible. Continue monitor BMP closely. Will hold on abx for now. will follow blood cx and wound cx for now. Continue monitor closely. MD Dc
--- NOTE | 2021-02-17 18:01 | Electrocardiogram Report ---
Test Reason : Blood Pressure : / mmHG Vent. Rate : 059 BPM Atrial Rate : 059 BPM P-R Int : 208 ms QRS Dur : 158 ms QT Int : 470 ms P-R-T Axes : 059 -43 -23 degrees QTc Int : 465 ms Sinus bradycardia Left axis deviation Right bundle branch block Abnormal ECG When compared with ECG of 30-DEC-2020 10:38, No significant change was found Confirmed by Mitch Haynes ([id number]) on 02/17/2021 6:01:02 PM Referred By: REFERRED SELF Confirmed By:Terrell Haynes
[2021-02-17] MEDS ORDERED: POLYETHYLENE (MIRALAX) 17 GM PACK PO PRN (18:38)
[2021-02-17] MEDS ORDERED: ONDANSETRON INJ 2 MG/ML 2 ML VIAL IV PRN (18:38)
[2021-02-17] MEDS ORDERED: DOCUSATE SODIUM 100 MG CAP PO PRN (18:38)
[2021-02-17] MEDS ORDERED: ACETAMINOPHEN 325 MG TAB PO PRN (18:38)
[2021-02-17] MEDS ORDERED: DEXTROSE 50% 50 ML SYRINGE IV PRN (18:38)
[2021-02-17] MEDS ORDERED: SODIUM CHLORIDE 0.9% 250 ML IV PRN (18:38)
[2021-02-17] MEDS ORDERED: GLUCOSE 40% GEL 15 GM TUBE PO PRN (18:38)
[2021-02-17] MEDS ORDERED: CARBOHYDRATES FOR HYPOGLYCEMIA PO PRN (18:38)
[2021-02-17] MEDS ORDERED: GLUCOSE 10 TABS/TUBE PO PRN (18:38)
[2021-02-17] MEDS ORDERED: GLUCAGON FOR INJ 1 MG VIAL SQ PRN (18:38)
[2021-02-17] MEDS ORDERED: LANTUS PER UNIT CHARGE SQ SCH (21:00)
[2021-02-17] MEDS: carvediloL 12.5 MG TAB PO SCH (21:30)
[2021-02-17] MEDS: oxyCODONE HCL IR 5 MG TAB (IMMEDIATE RELEASE) PO SCH (21:31)
[2021-02-17] MEDS: GABAPENTIN 300 MG CAP PO SCH (21:31)
[2021-02-17] MEDS: FERROUS SULFATE 325 MG TAB PO SCH (21:31)
[2021-02-17] MEDS: ATORVASTATIN 40 MG TAB PO SCH (21:31)
[2021-02-17] MEDS: MONTELUKAST SODIUM 10 MG TABLET PO SCH (21:31)
[2021-02-17] MEDS: ALBUTEROL 0.083% NEBU SOLN 3 ML VIAL NEB SCH (21:35)
[2021-02-17] MEDS: INSULIN ASPART 100 UNITS/ML 3 ML PEN SC SCH (23:56)
[2021-02-17] MEDS: INSULIN GLARGINE SOLOSTAR 100 UNITS/ML 3 ML PEN SC SCH (23:57)
[2021-02-18] MEDS: ALBUTEROL 0.083% NEBU SOLN 3 ML VIAL NEB SCH ×4 (01:41→20:01)
[2021-02-18] MEDS ORDERED: amLODIPine BESYLATE 5 MG TAB PO SCH (09:00)
[2021-02-18] MEDS: carvediloL 12.5 MG TAB PO SCH ×2 (09:16→16:57)
[2021-02-18] MEDS: GABAPENTIN 300 MG CAP PO SCH ×2 (09:16→13:29)
[2021-02-18] MEDS: CHOLECALCIFEROL 1,000 UNITS 25 MCG TAB PO SCH (09:16)
[2021-02-18] MEDS: SERTRALINE HCL 100 MG TABLET PO SCH (09:16)
[2021-02-18] MEDS: UMECLIDINIUM/VILANTEROL 62.5/25MCG 7 PUFFS/INHALER INH SCH (09:16)
[2021-02-18] MEDS: DULoxetine HCL 60 MG CAP PO SCH (09:16)
[2021-02-18] MEDS: TAMSULOSIN HCL 0.4 MG CAP PO SCH (09:17)
[2021-02-18] MEDS: oxyCODONE HCL IR 5 MG TAB (IMMEDIATE RELEASE) PO SCH ×2 (09:17→22:41)
[2021-02-18] MEDS: PANTOprazole 40 MG TAB PO SCH (09:17)
[2021-02-18] MEDS: INSULIN ASPART 100 UNITS/ML 3 ML PEN SC SCH ×4 (09:29→22:40)
[2021-02-18] MEDS: INSULIN GLARGINE SOLOSTAR 100 UNITS/ML 3 ML PEN SC SCH ×2 (09:30→22:41)
[2021-02-18 09:44] LABS: Hemoglobin 8.4 g/dL (14.0-18.0); Mean Corpuscular Hemoglobin 27.4 pg (25-34); Mean Corpuscular Hgb Conc 31.1 g/dL (32-36); Mean Corpuscular Volume 87.9 fL (80-100); Platelet Count 233 K/uL (130-400); RDW Coefficient of Variation 16.1 % (11.5-14.5); Red Blood Count 3.07 M/uL (4.7-6.1); White Blood Count 6.82 K/uL (4.8-10.8)
[2021-02-18 10:06] LABS: BUN Creatinine Ratio 11.7 (10-20); Calcium 9.7 mg/dl (8.5-10.1); Creatinine Clr Calc Pharmacy 36.6 ml/min; Est GFR (African American) 23.4 ml/min; Est GFR (Non-African American) 20.2 ml/min
[2021-02-18 10:20] LABS: Phosphorus 4.2 mg/dl (2.5-4.9)
[2021-02-18] MEDS: FERROUS SULFATE 325 MG TAB PO SCH ×2 (13:29→21:21)
--- NOTE | 2021-02-18 16:37 | Nephrology Consultation ---
Date of Consultation February 18, 2021 Assessment & Plan (1) Acute renal failure: Stage 3 nonoliguric JARROD, likely ATN from medications. baseline creatinine 1.1-1.2 in December 2020 and months prior. vanco levels over the past month were generally <20; intermittent high values were not persistent. presented [facility] creatinine 3.5 on 02/17 after creat 3.9 on 02/15 prior to admission. likely multi factorial including bactrim, vanco, lisininopril, diuretics. chemistries ok but he is volume overloaded. -hold bactrim and vancomycin for now -daily bmp; no indication for urgent dialysis -lower jamar as below -hold ACEI -ok to use diuretics prn; may need to resume soon -continue dialysis /renal diet (2) Metabolic encephalopathy: -could be d/t ongoing high gabapentin dose with renal failure : recommend lower dose as tolerated, ideally about 300 mg DAILY for now -continue other work up (3) Fluid overload: multifactorial attributable to HFpEF, chronic respiratory failure and potentially to medications like full dose CCB and high dose gabapentin -halved amlodipine to 5 mg daily starting tomorrow -lower jamar dose as tolerated -diuretics prn -no FR for now but may need to consider History of Present Illness Reason for Consultation: JARROD on CKD Requesting Physician: Dr Irwin Attending Physician: Mikki Irwin MD History of Present Illness 66 y/o M whom I'm asked to see for JARROD on CKD was admitted yesterday from [facility] for evaluation of altered mental status. PMH includes HFpEF, Covid 19 in October 2020 w/ ongoing positive tests, DM, chronic respiratory failure on 2L 02, class 3 obesity, FRANICS intolerant of cpap, HTN, HL, chronic anemia w/ hgb running 8-10 past few months. his baseline creatinine is 1.1-1.2 as recently as December 2020 and for months prior: notably this nearly but does not quite meet CKD 3 criteria; his proteinuria status is unknown. He was admitted here in late December/early January for mgt of R hand abscess and osteomyelitis. He was d/c on 5 wks of vancomycin. Hs creatinine was in the mid to high ones already for the first half of January. His creatinine was 3.5 on presentation yesterday > in addition to vanco, he was also on lisinopril, bactrim (started 02/06/21), and bumex as well as gabapentin 300 mg tid prior to admission. Creat has improved to 3.4 this am. He had 1/2L ns at admission; antibiotics were held on presentation. his MS was still altered when I evaluated him at about 1300 today > he was interactive but not clear how reliable a historian. he denied sob, edema, uncontrolled pain, nausea/vomiting to me. Has not had pRBC so far this admission though it was contemplated. Allergies Allergy/AdvReac Type Severity Reaction Status Date / Time No Known Allergies Allergy Verified 02/17/21 11:50 Home Medications Medication Instructions Recorded Confirmed Type acetaminophen 325 mg tablet 650 mg PO Q4 PRN 11/29/20 02/17/21 History (Tylenol) amlodipine 10 mg tablet (Norvasc) 10 mg PO QAM 11/29/20 02/17/21 History atorvastatin 40 mg tablet 40 mg PO HS 11/29/20 02/17/21 History bumetanide 2 mg tablet 2 mg PO QAM 11/29/20 02/17/21 History carvedilol 12.5 mg tablet (Coreg) 12.5 mg PO BIDM 11/29/20 02/17/21 History cholecalciferol (vitamin D3) 50 50 mcg PO DAILY 11/29/20 02/17/21 History mcg (2,000 unit) capsule (Vitamin D3) docusate sodium 100 mg capsule 100 mg PO BID PRN 11/29/20 02/17/21 History (Stool Softener) duloxetine 30 mg capsule,delayed 60 mg PO DAILY 11/29/20 02/17/21 History release ferrous sulfate 325 mg (65 mg 325 mg PO BID 11/29/20 02/17/21 History iron) tablet (Iron (ferrous sulfate)) gabapentin 300 mg capsule 300 mg PO TID 11/29/20 02/17/21 History (Neurontin) montelukast 10 mg tablet 10 mg PO HS 11/29/20 02/17/21 History (Singulair) pantoprazole 40 mg tablet,delayed 40 mg PO DAILY 11/29/20 02/17/21 History release (Protonix) polyethylene glycol 3350 17 gram 17 g PO DAILY PRN 11/29/20 02/17/21 History oral powder packet (Miralax) potassium chloride 20 mEq 20 meq PO DAILY 11/29/20 02/17/21 History tablet,extended release (K-Tab) sertraline 100 mg tablet (Zoloft) 100 mg PO DAILY 11/29/20 02/17/21 History tamsulosin 0.4 mg capsule (Flomax) 0.8 mg PO DAILY 11/29/20 02/17/21 History umeclidinium 62.5 mcg-vilanterol 1 inh INHALATION DAILY 11/29/20 02/17/21 History 25 mcg/actuation powdr for inhalation (Anoro Ellipta) albuterol sulfate 90 mcg/actuation 1 inh INHALATION QID 02/17/21 02/17/21 History aerosol inhaler (Proventil HFA) insulin aspart U-100 100 unit/mL 1 sliding scale dose SUBCUT 02/17/21 02/17/21 History subcutaneous solution (Novolog USEASDIRECTD U-100 Insulin aspart) insulin glargine 100 unit/mL 15 unit SUBCUT BID 02/17/21 02/17/21 History subcutaneous solution (Lantus U-100 Insulin) lisinopril 10 mg tablet (Zestril) 10 mg PO QAM 02/17/21 02/17/21 History oxycodone 5 mg tablet (Roxicodone) 5 mg PO Q12 02/17/21 02/17/21 History oxycodone 5 mg tablet (Roxicodone) 5 mg PO Q12H PRN 02/17/21 02/17/21 History sennosides 8.6 mg capsule (senna) 8.6 mg PO DAILY PRN 02/17/21 02/17/21 History sulfamethoxazole 800 1 tab PO BID 02/17/21 02/17/21 History mg-trimethoprim 160 mg tablet (Bactrim DS) Patient History Medical History Chronic diastolic CHF (congestive heart failure) Chronic respiratory failure with hypoxia Coronary artery disease Depression Diabetes mellitus, type II History of COVID-19 Hyperlipidemia Hypertension Morbid obesity FRANCIS (obstructive sleep apnea) Surgical History H/O knee surgery Family History Other Throat cancer Social History Smoking Status: Never smoker Second Hand Exposure: No; Hx Alcohol Use: No Hx Substance Use: Yes Last Used Substance: Unknown Preferred Language: Pashto Communication Ability: Effective Ship Liner Required: No Beliefs That Will Affect Care: None marital status: Single Current Living Situation: Rehab Current Living Situation Comment: [facility] How many Children do You have: 0 Other Information That Helps Us Care for You: No Feels Safe at Home: Yes Safety Concerns: Feels Safe At This Time Assistive Devices: Oxygen - Continuous and Walker Review of Systems Review of Systems: All systems reviewed & are unremarkable except as noted in HPI & below Physical Exam Constitutional: well developed, well nourished, + morbidly obese, + altered mental status (talking to people not in room prior to my entrance) and comfortable; no acute distress Eyes: EOM intact bilaterally ENMT: Ears: no external ear abnormality Nose: no external nose abnormality Mouth: + dry oral mucous membranes Neck: no nuchal rigidity Respiratory: normal respiratory effort Auscultation: + diminished lung sounds and + crackles (fine, end inspiratory, BL bases) Cardiovascular: Rate/Rhythm: regular rate and regular rhythm Heart Sounds: normal S1 (distant) and normal S2 Gastrointestinal (Abdomen): Inspection/Auscultation: normal bowel sounds Percussion/Palpation: abdomen soft; abdomen nontender Musculoskeletal: Extremities: + abnormal strength (generalized weakness) Skin: no rashes, warm and dry Trauma: + evidence of skin trauma (dorsum R hand 4 x 2 cm; L pretibial ulcers; all trauma remote and healing) Neurologic: harmon, fluent speech, no tremor Genitourinary: mccormack w/ ample light urine Results & Data ([facility]) Vital Signs (Past 12 Hours) Vital Signs Temp Pulse Pulse Resp BP Pulse Ox 02/18/21 16:24 62 02/18/21 13:40 81 18 94 02/18/21 11:00 36.6 C 64 20 121/65 90 02/18/21 10:22 61 02/18/21 07:58 82 20 98 02/18/21 07:00 36.8 C 59 L 22 123/68 98 Laboratory Results 02/18/21 08:59 02/18/21 08:59 Diagnostic Findings cxr 1. Right greater than left bilateral airspace opacities have mildly improved from comparison. 2. Trace pleural effusions. 3. Interval removal of the right-sided PICC.
--- NOTE | 2021-02-18 17:58 | Hospitalist Progress Note ---
Date of Service February 18, 2021 Assessment & Plan (1) Metabolic encephalopathy: Plan: Patient is 66-year-old male with PMH COVID-19 in 10/2020 and has continued to test positive, DM II, CKD III, chronic respiratory failure on 2L O2, COPD, CHF with preserved EF, HTN, HLD, FRANCIS intolerant to CPAP, morbid obesity, anemia presented to ER from [facility] for altered mental status. Possible related to JARROD with creatinine 3.[address] head showed no acute intracranial findings Will decrease gabapentin dose due to derease in renal function Continue monitor closely (2) Acute kidney injury superimposed on CKD: Plan: H/O CKD III BUN: 41, Cr: 3.5. Cr was 1.9 on 02/03/2021. K: 4.6 Possible related to vancomycin, Bactrim lisinopril, diuretics. Received IVF 500ml in the ER Continue to hold vancomycin, Bactrim, lisinopril and Bumex at this time Nephrology on board Creatinine 3.1 today Avoid nephrotoxic agents when possible Continue monitor BMP (3) Septic arthritis of hand, right: Plan: History hospitalization 12/30-01/12/[address] [facility] for right dorsal hand abscess and third MCP septic arthritis. S/P I&D on 12/31/2020. S/P washout 01/03/2021. + MRSA on wound culture. Was treated with vancomycin and discharged to [facility] on vancomycin for 5 additional weeks Bactrim started 02/06/21 Blood cultures negative Wound does not look infected - Will hold on additional abx Will follow wound cx Wound care consult (4) Chronic diastolic CHF (congestive heart failure): Plan: CHF with preserved EF Appears to be euvolemic at this time Will monitor closely for volume overload Continue monitor closely (5) History of COVID-19: Plan: H/O positive COVID 19 test 10/20/2020. Was hospitalized at [facility] for acute respiratory failure secondary to Covid pneumonia and decompensated CHF. He was treated with tocilizumab, remdesivir, dexamethasone. Continues to test positive COVID 19 PCR CXR: Right greater than left bilateral airspace opacities have mildly improved from comparison Continue isolation Asymptomatic (6) COPD (chronic obstructive pulmonary disease): Plan: Chronic respiratory failure. On 2L oxygen No signs exacerbation Continue supplemental oxygen Continue home inhalers (7) Diabetes mellitus, type II: Plan: A1c: 7.1 on 11/30 Continue home Lantus NovoLog sliding scale per protocol (8) Coronary artery disease: Plan: Denies any shortness of breath, chest pain Continue carvedilol, atorvastatin (9) Anemia: Plan: Hgb: 8.2 (Hgb 8-10 during last couple of months) Last admission hemoglobin dropped to 6.9 post op. s/p 1 unit PRBCs on 01/01/2021 No signs of active bleeding. Denies melena, hematochezia Monitor H&H Transfuse as needed Continue iron supplement (10) Hypertension: Plan: BP stable Continue to hol lisinopril with JARROD Continue carvedilol, amlodipine with holding parameters (11) Hyperlipidemia: Plan: Continue atorvastatin (12) Depression: Plan: Continue duloxetine, sertraline (13) FRANCIS (obstructive sleep apnea): Plan: Noncompliant with CPAP DVT Prophylaxis -SCDs Full Code as per discussion with pt Currently at [facility] Admission and Anticipated Discharge Date Admission Date: February 17, 2021 Subjective Pt was seen and examined for follow up of altered mental status Lying in bed with no distress with no acute distress Pt seems to be in and out of confusion He said that he feels fine Denies any chest pain, palpitation, dizziness and SOB Review of Systems Review of Systems: All systems reviewed & are unremarkable except as noted in Subjective Physical Exam Physical Exam: General- No acute distress Head- atraumatic Eyes- PERRL, EOMI, ENT- oropharynx clear Neck- supple, no JVD Lungs- no wheezing Heart- regular rhythm; no murmur Abdomen- normal bowel sounds, soft, nontender Extremities- no calf tenderness Neuro- alert, oriented x 3; PERRL, EOMI; no facial palsy; no dysarthria Skin- warm & dry Results & Data Results & Data ([facility]) Vital Signs (Past 12 Hours) Vital Signs Temp Pulse Pulse Resp BP Pulse Ox 02/18/21 17:00 36.6 C 63 20 120/57 L 93 02/18/21 16:24 62 02/18/21 13:40 81 18 94 02/18/21 11:00 36.6 C 64 20 121/65 90 02/18/21 10:22 61 02/18/21 07:58 82 20 98 02/18/21 07:00 36.8 C 59 L 22 123/68 98
[2021-02-18] MEDS: MONTELUKAST SODIUM 10 MG TABLET PO SCH (21:21)
[2021-02-18] MEDS: ATORVASTATIN 40 MG TAB PO SCH (21:21)
[2021-02-19] MEDS: ALBUTEROL 0.083% NEBU SOLN 3 ML VIAL NEB SCH ×2 (01:53→08:07)
[2021-02-19] MEDS: INSULIN ASPART 100 UNITS/ML 3 ML PEN SC SCH ×4 (09:02→20:49)
[2021-02-19] MEDS: FERROUS SULFATE 325 MG TAB PO SCH ×2 (09:04→20:50)
[2021-02-19] MEDS: INSULIN GLARGINE SOLOSTAR 100 UNITS/ML 3 ML PEN SC SCH ×2 (09:04→21:45)
[2021-02-19] MEDS: SERTRALINE HCL 100 MG TABLET PO SCH (09:05)
[2021-02-19] MEDS: PANTOprazole 40 MG TAB PO SCH (09:05)
[2021-02-19] MEDS: CHOLECALCIFEROL 1,000 UNITS 25 MCG TAB PO SCH (09:05)
[2021-02-19] MEDS: amLODIPine BESYLATE 5 MG TAB PO SCH (09:05)
[2021-02-19] MEDS: carvediloL 12.5 MG TAB PO SCH ×2 (09:05→16:59)
[2021-02-19] MEDS: DULoxetine HCL 60 MG CAP PO SCH (09:06)
[2021-02-19] MEDS: TAMSULOSIN HCL 0.4 MG CAP PO SCH (09:06)
[2021-02-19] MEDS: GABAPENTIN 100 MG CAP PO SCH ×3 (09:06→20:50)
[2021-02-19] MEDS: oxyCODONE HCL IR 5 MG TAB (IMMEDIATE RELEASE) PO SCH (09:07)
[2021-02-19] MEDS: UMECLIDINIUM/VILANTEROL 62.5/25MCG 7 PUFFS/INHALER INH SCH (09:07)
[2021-02-19 09:17] LABS: BUN Creatinine Ratio 12.9 (10-20); Calcium 9.9 mg/dl (8.5-10.1); Creatinine Clr Calc Pharmacy 41.3 ml/min; Est GFR (African American) 26.9 ml/min; Est GFR (Non-African American) 23.2 ml/min; Potassium 3.9 mmol/L (3.5-5.1)
[2021-02-19] MEDS ORDERED: ALBUTEROL 0.083% NEBU SOLN 3 ML VIAL NEB PRN (09:43)
--- NOTE | 2021-02-19 12:34 | Nephrology Progress Note ---
Date of Service February 19, 2021 Assessment & Plan (1) Acute renal failure: Plan: improving Stage 3 nonoliguric JARROD, likely ATN from medications. baseline creatinine 1.1-1.2 in December 2020 and months prior. vanco levels over the past month were generally <20; intermittent high values were not persistent. presented [facility] creatinine 3.5 on 02/17 after creat 3.9 on 02/15 prior to admission. likely multifactorial including bactrim, vanco, lisininopril, diuretics. ch emistries ok but he is volume overloaded. -hold bactrim and vancomycin for now -daily bmp; no indication for urgent dialysis -on lowered gabapentin dose now; low threshold to lower further if renal fu nction plateaus -hold ACEI -diuretics as below plus one time K 20 mEq po -continue dialysis /renal diet for now; may be able to be less diet-rstrictive soon Care coordinated w/ Dr Irwin (2) Metabolic encephalopathy: Plan: -could be in part d/t ongoing high gabapentin dose with renal failure : consider lower dose as tolerated, ideally about 300 mg DAILY for now -continue other work up (3) Fluid overload: Plan: multifactorial attributable to HFpEF, chronic respiratory failure and potentially to medications like full dose CCB and high dose gabapentin -halved amlodipine to 5 mg daily starting this am >> sbp late AM mlow today; was lower yesterday afternoon as well > -lower jamar dose as tolerated -will give bumex 2 mg po daily; one time K as above -no FR for now but may need to consider Admission and Anticipated Discharge Date Admission Date: February 17, 2021 Subjective no uncontrolled pain, no worsening dyspnea, notes no change in edema; tolerating po; overall argumentative about his care/restrictions on care Review of Systems Review of Systems: All systems reviewed & are unremarkable except as noted in Subjective Physical Exam Constitutional: well developed, well nourished, + morbidly obese, + altered mental status (improved; still argues about whether mccormack presetn or not) and comfortable; no acute distress Eyes: EOM intact bilaterally ENMT: Ears: no external ear abnormality Nose: no external nose abnormality Mouth: + dry oral mucous membranes Neck: no nuchal rigidity Respiratory: normal respiratory effort Auscultation: + diminished lung sounds (BL bases) and + wheezes (occasional insp); no crackles Cardiovascular: Rate/Rhythm: regular rate and regular rhythm Heart Sounds: normal S1 (distant) and normal S2 Extremities: + edema (1+ pretibial/pedal) Gastrointestinal (Abdomen): Inspection/Auscultation: normal bowel sounds Percussion/Palpation: abdomen soft; abdomen nontender Musculoskeletal: Extremities: + abnormal strength (generalized weakness) Skin: no rashes, warm and dry Trauma: + evidence of skin trauma (dorsum R hand 4 x 2 cm; L pretibial ulcers; all trauma remote and healing) Genitourinary: mccormack w/ ample yellow urine Results & Data ([facility]) Vital Signs (Past 12 Hours) Vital Signs Temp Pulse Pulse Resp BP Pulse Ox 02/19/21 11:00 36.8 C 71 20 104/65 90 02/19/21 09:44 61 02/19/21 08:09 69 18 97 02/19/21 07:00 36.7 C 79 22 135/72 96 02/19/21 03:29 36.7 C 66 18 148/71 H 93 02/19/21 00:41 58 L Laboratory Results 02/18/21 08:59 02/19/21 08:28
[2021-02-19] MEDS: DAPTOmycin 650 MG in SYRINGE 0 ML IV SCH (15:43)
[2021-02-19] MEDS: metroNIDAZOLE 500 MG/100 ML BAG IV SCH ×2 (15:43→22:58)
[2021-02-19] MEDS ORDERED: BUMETANIDE 1 MG TAB PO ONE (17:00)
[2021-02-19] MEDS ORDERED: POTASSIUM CHLORIDE CRTAB 20 MEQ TABCR PO ONE (17:00)
[2021-02-19] MEDS: ATORVASTATIN 40 MG TAB PO SCH (20:50)
[2021-02-19] MEDS: MONTELUKAST SODIUM 10 MG TABLET PO SCH (20:50)
--- NOTE | 2021-02-19 21:58 | Hospitalist Progress Note ---
Date of Service February 19, 2021 Assessment & Plan (1) Metabolic encephalopathy: Plan: Patient is 66-year-old male with PMH COVID-19 in 10/2020 and has continued to test positive, DM II, CKD III, chronic respiratory failure on 2L O2, COPD, CHF with preserved EF, HTN, HLD, FRANCIS intolerant to CPAP, morbid obesity, anemia presented to ER from [facility] for altered mental status. Possible related to JARROD with creatinine 3.5 on admission vs infection CT head showed no acute intracranial findings Continue gabapentin 100mg for now due to decrease in renal function Continue monitor closely (2) Acute kidney injury superimposed on CKD: Plan: H/O CKD III BUN: 41, Cr: 3.5. Cr was 1.9 on 02/03/2021. K: 4.6 Possible related to vancomycin, Bactrim lisinopril, diuretics. Received IVF 500ml in the ER Continue to hold vancomycin, Bactrim, lisinopril and Bumex at this time Nephrology on board Creatinine 2.76 today Nephrology plan to start on Bumex today, will monitor BMP Avoid nephrotoxic agents when possible Continue monitor BMP (3) Septic arthritis of hand, right: Plan: History hospitalization 12/30-01/12/21 at [facility] for right dorsal hand abscess and third MCP septic arthritis. S/P I&D on 12/31/2020. S/P washout 01/03/2021. + MRSA on wound culture. Was treated with vancomycin and discharged to [facility] on vancomycin for 5 additional weeks Bactrim started 02/06/21 Blood cultures grew strep species Wound culture grew MRSA and Clostridium clostridiiforme We will start on antibiotic with Dapto and metronidazole We will consult infectious disease [facility] We will consult orthopedic Will follow wound sensitivity Wound care consult (4) Chronic diastolic CHF (congestive heart failure): Plan: CHF with preserved EF Appears to be euvolemic at this time Will start on Bumex 2mg daily Will monitor closely for volume overload Continue monitor closely (5) History of COVID-19: Plan: H/O positive COVID 19 test 10/20/2020. Was hospitalized at [facility] for acute respiratory failure secondary to Covid pneumonia and decompensated CHF. He was treated with tocilizumab, remdesivir, dexamethasone. Continues to test positive COVID 19 PCR CXR: Right greater than left bilateral airspace opacities have mildly improved from comparison Continue isolation Asymptomatic (6) COPD (chronic obstructive pulmonary disease): Plan: Chronic respiratory failure. On 2L oxygen No signs exacerbation Continue supplemental oxygen Continue home inhalers (7) Diabetes mellitus, type II: Plan: A1c: 7.1 on 11/30 Continue home Lantus NovoLog sliding scale per protocol (8) Coronary artery disease: Plan: Denies any shortness of breath, chest pain Continue carvedilol, atorvastatin (9) Anemia: Plan: Hgb: 8.2 (Hgb 8-10 during last couple of months) Last admission hemoglobin dropped to 6.9 post op. s/p 1 unit PRBCs on 01/01/2021 No signs of active bleeding. Denies melena, hematochezia Monitor H&H Transfuse as needed Continue iron supplement (10) Hypertension: Plan: BP stable Continue to hol lisinopril with JARROD Continue carvedilol, amlodipine with holding parameters (11) Hyperlipidemia: Plan: Will hold atorvastatin while starting on Dapto (12) Depression: Plan: Continue duloxetine, sertraline (13) FRANCIS (obstructive sleep apnea): Plan: Noncompliant with CPAP DVT Prophylaxis -SCDs Full Code as per discussion with pt Currently at [facility] Admission and Anticipated Discharge Date Admission Date: February 17, 2021 Subjective Pt was seen and examined for follow up of altered mental status Lying in bed with no distress with no acute distress Staff said patient was awake all night Denies any chest pain, palpitation, dizziness and SOB Review of Systems Review of Systems: All systems reviewed & are unremarkable except as noted in Subjective Physical Exam Physical Exam: General- No acute distress Head- atraumatic Eyes- PERRL, EOMI, ENT- oropharynx clear Neck- supple, no JVD Lungs- no wheezing Heart- regular rhythm; no murmur Abdomen- normal bowel sounds, soft, nontender Extremities- no calf tenderness, wound in R dorsal hand area with granulation formation, no drainage, no redness Neuro- alert, oriented x 3; PERRL, EOMI; no facial palsy; no dysarthria Skin- warm & dry Results & Data Results & Data ([facility]) Vital Signs (Past 12 Hours) Vital Signs Temp Pulse Pulse Resp BP Pulse Ox 02/19/21 19:46 36.5 C 60 19 126/62 90 02/19/21 16:00 59 L 02/19/21 11:00 36.8 C 71 20 104/65 90
[2021-02-20] MEDS: metroNIDAZOLE 500 MG/100 ML BAG IV SCH ×3 (06:06→22:24)
[2021-02-20 07:21] LABS: Hematocrit (blood only) 28.7 % (42-52); Hemoglobin 9.1 g/dL (14.0-18.0); Mean Corpuscular Hemoglobin 27.4 pg (25-34); Mean Corpuscular Hgb Conc 31.7 g/dL (32-36); Mean Corpuscular Volume 86.4 fL (80-100); Mean Platelet Volume 8.7 fL (7.4-10.4); Platelet Count 220 K/uL (130-400); RDW Coefficient of Variation 15.8 % (11.5-14.5); RDW Standard Deviation 50.1 fL (36.4-46.3); Red Blood Count 3.32 M/uL (4.7-6.1); White Blood Count 7.28 K/uL (4.8-10.8)
[2021-02-20 07:52] LABS: BUN Creatinine Ratio 14.1 (10-20); Calcium 10.3 mg/dl (8.5-10.1); Creatinine Clr Calc Pharmacy 47.1 ml/min; Est GFR (Non-African American) 27.6 ml/min; Potassium 3.7 mmol/L (3.5-5.1)
[2021-02-20] MEDS: INSULIN ASPART 100 UNITS/ML 3 ML PEN SC SCH ×4 (09:09→19:36)
[2021-02-20] MEDS: FERROUS SULFATE 325 MG TAB PO SCH ×2 (09:10→19:35)
[2021-02-20] MEDS: INSULIN GLARGINE SOLOSTAR 100 UNITS/ML 3 ML PEN SC SCH ×2 (09:10→19:41)
[2021-02-20] MEDS: DULoxetine HCL 60 MG CAP PO SCH (09:11)
[2021-02-20] MEDS: GABAPENTIN 100 MG CAP PO SCH ×3 (09:11→19:34)
[2021-02-20] MEDS: TAMSULOSIN HCL 0.4 MG CAP PO SCH (09:11)
[2021-02-20] MEDS: carvediloL 12.5 MG TAB PO SCH ×3 (09:11→17:52)
[2021-02-20] MEDS: PANTOprazole 40 MG TAB PO SCH (09:11)
[2021-02-20] MEDS: CHOLECALCIFEROL 1,000 UNITS 25 MCG TAB PO SCH (09:11)
[2021-02-20] MEDS: BUMETANIDE 1 MG TAB PO SCH (09:11)
[2021-02-20] MEDS: SERTRALINE HCL 100 MG TABLET PO SCH (09:11)
[2021-02-20] MEDS: amLODIPine BESYLATE 5 MG TAB PO SCH (09:13)
[2021-02-20] MEDS: UMECLIDINIUM/VILANTEROL 62.5/25MCG 7 PUFFS/INHALER INH SCH (09:13)
[2021-02-20] MEDS ORDERED: GABAPENTIN 100 MG CAP PO ONE (11:00)
[2021-02-20] MEDS ORDERED: HALOPERIDOL LACTATE 5 MG/ML 1 ML VIAL IM STA (11:38)
[2021-02-20] MEDS ORDERED: OLANZapine 10 MG/2.1 ML SDV IM STA (11:45)
[2021-02-20] MEDS: DAPTOmycin 650 MG in SYRINGE 0 ML IV SCH (15:13)
--- NOTE | 2021-02-20 18:53 | Nephrology Progress Note ---
Date of Service February 20, 2021 Assessment & Plan (1) Acute renal failure: Plan: improving Stage 3 nonoliguric JARROD, likely ATN from medications. baseline creatinine 1.1-1.2 in December 2020 and months prior. vanco levels over the past month were generally <20; intermittent high values were not persistent. presented [facility] creatinine 3.5 on 02/17 after creat 3.9 on 02/15 prior to admission. likely multifactorial including bactrim, vanco, lisininopril, diuretics. ch emistries ok but he is volume overloaded. -hold bactrim and vancomycin for now -daily bmp; no indication for urgent dialysis -on lowered gabapentin dose now -hold ACEI -diuretics as below; start standing daily K 20 mEq po -continue dialysis /renal diet for now; may be able to be less diet-rstrictive soon (2) Metabolic encephalopathy: Plan: -could be in part d/t ongoing high gabapentin dose with renal failure : consider lower dose as tolerated, ideally about 300 mg DAILY for now -continue other work up (3) Fluid overload: Plan: multifactorial attributable to HFpEF, chronic respiratory failure and potentially to medications like full dose CCB and high dose gabapentin -halved amlodipine to 5 mg daily 02/19 -lower jamar dose as tolerated -contbumex 2 mg po daily -no FR for now but may need to consider Admission and Anticipated Discharge Date Admission Date: February 17, 2021 Subjective refuses ROS w/ me today by staring straight ahead, not answering; RN was literally exiting room as I went in this AM at 1040; no interval events; RN reports pt oriented x 3 but still some confusion at times Review of Systems Review of Systems: Other (d/t pt preference) Physical Exam Constitutional: well developed, well nourished, + morbidly obese and comfortable; no acute distress Eyes: EOM intact bilaterally ENMT: Ears: no external ear abnormality Nose: no external nose abnormality Mouth: + dry oral mucous membranes Neck: no nuchal rigidity Respiratory: normal respiratory effort Auscultation: + diminished lung sounds Cardiovascular: Rate/Rhythm: regular rate and regular rhythm Heart Sounds: normal S1 (distant) and normal S2 Extremities: + edema (1+ pretibial/pedal) Gastrointestinal (Abdomen): Inspection/Auscultation: normal bowel sounds Percussion/Palpation: abdomen soft; abdomen nontender Musculoskeletal: Extremities: + abnormal strength (generalized weakness) Skin: no rashes, warm and dry Trauma: + evidence of skin trauma (dorsum R hand 4 x 2 cm; L pretibial ulcers; all trauma remote and healing) Genitourinary: mccormack w/ ample urine yellow Results & Data ([facility]) Vital Signs (Past 12 Hours) Vital Signs Temp Pulse Pulse Resp BP Pulse Ox 02/20/21 15:07 62 02/20/21 11:00 36.8 C 73 18 143/84 H 95 02/20/21 10:24 73 02/20/21 08:02 36.8 C 72 18 135/73 98 Laboratory Results 02/20/21 07:01 02/20/21 07:01
[2021-02-20] MEDS: QUEtiapine FUMARATE 25 MG TABLET PO SCH (19:34)
[2021-02-20] MEDS: MONTELUKAST SODIUM 10 MG TABLET PO SCH (19:35)
[2021-02-20] MEDS: POTASSIUM CHLORIDE CRTAB 20 MEQ TABCR PO SCH (19:42)
--- NOTE | 2021-02-20 23:19 | Hospitalist Progress Note ---
Date of Service February 20, 2021 Assessment & Plan (1) Metabolic encephalopathy: Plan: Patient is 66-year-old male with PMH COVID-19 in 10/2020 and has continued to test positive, DM II, CKD III, chronic respiratory failure on 2L O2, COPD, CHF with preserved EF, HTN, HLD, FRANCIS intolerant to CPAP, morbid obesity, anemia presented to ER from [facility] for altered mental status. Possible related to JARROD with creatinine 3.5 on admission vs infection CT head showed no acute intracranial findings Continue gabapentin 100mg for now due to decrease in renal function Will consider to increase gabapentin to 200mg due to his neuropathy Continue monitor closely (2) Acute kidney injury superimposed on CKD: Plan: H/O CKD III BUN: 41, Cr: 3.5. Cr was 1.9 on 02/03/2021. K: 4.6 Possible related to vancomycin, Bactrim lisinopril, diuretics. Received IVF 500ml in the ER Continue to hold vancomycin, Bactrim, lisinopril and Bumex at this time Nephrology on board Creatinine 2.39 today Nephrology plan to start on Bumex today, will monitor BMP Avoid nephrotoxic agents when possible Continue monitor BMP (3) Septic arthritis of hand, right: Plan: History hospitalization 12/30-01/12/21 at [facility] for right dorsal hand abscess and third MCP septic arthritis. S/P I&D on 12/31/2020. S/P washout 01/03/2021. + MRSA on wound culture. Was treated with vancomycin and discharged to [facility] on vancomycin for 5 additional weeks Bactrim started 02/06/21 Blood cultures grew strep species Wound culture grew MRSA and Clostridium clostridiiforme We will start on antibiotic with Dapto and metronidazole Waiting for infectious disease [facility] [place] consult orthopedic=- Pending Will follow wound sensitivity Wound care consult (4) Chronic diastolic CHF (congestive heart failure): Plan: CHF with preserved EF Appears to be euvolemic at this time Will start on Bumex 2mg daily Will monitor closely for volume overload Continue monitor closely (5) History of COVID-19: Plan: H/O positive COVID 19 test 10/20/2020. Was hospitalized at [facility] for acute respiratory failure secondary to Covid pneumonia and decompensated CHF. He was treated with tocilizumab, remdesivir, dexamethasone. Continues to test positive COVID 19 PCR CXR: Right greater than left bilateral airspace opacities have mildly improved from comparison Continue isolation Asymptomatic (6) COPD (chronic obstructive pulmonary disease): Plan: Chronic respiratory failure. On 2L oxygen No signs exacerbation Continue supplemental oxygen Continue home inhalers (7) Diabetes mellitus, type II: Plan: A1c: 7.1 on 11/30 Continue home Lantus NovoLog sliding scale per protocol (8) Coronary artery disease: Plan: Denies any shortness of breath, chest pain Continue carvedilol, atorvastatin (9) Anemia: Plan: Hgb: 8.2 (Hgb 8-10 during last couple of months) Last admission hemoglobin dropped to 6.9 post op. s/p 1 unit PRBCs on 01/01/2021 No signs of active bleeding. Denies melena, hematochezia Monitor H&H Transfuse as needed Continue iron supplement (10) Hypertension: Plan: BP stable Continue to hol lisinopril with JARROD Continue carvedilol, amlodipine with holding parameters (11) Hyperlipidemia: Plan: Will hold atorvastatin while starting on Dapto (12) Depression: Plan: Continue duloxetine, sertraline (13) FRANCIS (obstructive sleep apnea): Plan: Noncompliant with CPAP DVT Prophylaxis -SCDs Full Code as per discussion with pt Currently at [facility] Admission and Anticipated Discharge Date Admission Date: February 17, 2021 Subjective Pt was seen and examined for follow up of altered mental status Lying in bed with no distress with no acute distress Staff said patient was awake all night He has been very restlessness and started to get agitated Denies any chest pain, palpitation, dizziness and SOB Review of Systems Review of Systems: All systems reviewed & are unremarkable except as noted in Subjective Physical Exam Physical Exam: General- No acute distress Head- atraumatic Eyes- PERRL, EOMI, ENT- oropharynx clear Neck- supple, no JVD Lungs- no wheezing Heart- regular rhythm; no murmur Abdomen- normal bowel sounds, soft, nontender Extremities- no calf tenderness, wound in R dorsal hand area with granulation formation, no drainage, no redness Neuro- alert, oriented x 3; PERRL, EOMI; no facial palsy; no dysarthria Skin- warm & dry Results & Data Results & Data ([facility]) Vital Signs (Past 12 Hours) Vital Signs Temp Pulse Pulse Resp BP Pulse Ox 02/20/21 22:28 36.6 C 69 16 106/67 100 02/20/21 19:33 37.1 C 74 18 138/78 96 02/20/21 15:07 62
[2021-02-21] MEDS: metroNIDAZOLE 500 MG/100 ML BAG IV SCH ×3 (06:06→22:33)
[2021-02-21] MEDS: POTASSIUM CHLORIDE CRTAB 20 MEQ TABCR PO SCH (08:01)
[2021-02-21] MEDS: PANTOprazole 40 MG TAB PO SCH (08:01)
[2021-02-21] MEDS: carvediloL 12.5 MG TAB PO SCH ×2 (08:01→17:22)
[2021-02-21] MEDS: BUMETANIDE 1 MG TAB PO SCH (08:01)
[2021-02-21] MEDS: amLODIPine BESYLATE 5 MG TAB PO SCH (08:01)
[2021-02-21] MEDS: GABAPENTIN 100 MG CAP PO SCH ×3 (08:01→20:12)
[2021-02-21] MEDS: CHOLECALCIFEROL 1,000 UNITS 25 MCG TAB PO SCH (08:02)
[2021-02-21] MEDS: UMECLIDINIUM/VILANTEROL 62.5/25MCG 7 PUFFS/INHALER INH SCH (08:02)
[2021-02-21] MEDS: DULoxetine HCL 60 MG CAP PO SCH (08:02)
[2021-02-21] MEDS: SERTRALINE HCL 100 MG TABLET PO SCH (08:02)
[2021-02-21] MEDS: FERROUS SULFATE 325 MG TAB PO SCH ×2 (08:02→20:13)
[2021-02-21] MEDS: TAMSULOSIN HCL 0.4 MG CAP PO SCH (08:02)
[2021-02-21] MEDS: INSULIN GLARGINE SOLOSTAR 100 UNITS/ML 3 ML PEN SC SCH ×2 (08:03→20:14)
[2021-02-21] MEDS: INSULIN ASPART 100 UNITS/ML 3 ML PEN SC SCH ×4 (08:03→20:15)
[2021-02-21 09:10] LABS: BUN Creatinine Ratio 14.3 (10-20); Calcium 10.4 mg/dl (8.5-10.1); Creatinine Clr Calc Pharmacy 43.6 ml/min; Est GFR (African American) 29.5 ml/min; Est GFR (Non-African American) 25.4 ml/min; Potassium 3.8 mmol/L (3.5-5.1)
--- NOTE | 2021-02-21 13:46 | Consultation Report ---
DATE OF SERVICE: 02/21/2021 CHIEF COMPLAINT: Follow up of his right hand infection. HISTORY OF PRESENT ILLNESS: The patient is a 66-year-old gentleman with multiple medical comorbiditi es who is now about 6 weeks out from I and D of extensive right hand infection including MCP joint os teomyelitis, septic arthritis, and infected tenosynovitis of the flexor tendon. I saw him 2 weeks ag o in clinic. He went to a care facility, was kept on IV antibiotics and then taken off. We put him back on some Bactrim. He was recently readmitted with metabolic encephalopathy. We were consulted f or repeat evaluation. He notes his hand is moderately painful and just stiff. No other real complai nts. PHYSICAL EXAMINATION: Reveals a dorsal hand wound, which is markedly improved from 2 weeks ago. Loo ks to be healing in. There is no real redness. He can made about a 50% fist. He is neurologically intact. There are no signs of active infection. ASSESSMENT: A 66-year-old gentleman now 6 weeks out from incision and drainage of an extensive hand infection, admitted with metabolic encephalopathy. His hand wound actually looks quite good consider ing everything. There is no need for surgical intervention. This looks like it should heal by secon marc intent. PLAN: At this point, we just recommend routine wound care. I would recommend consulting the wound reyes gautam and their recommendations as far as wound care. This hand dressing can be removed and he can w kd his hand. We will write him for some therapy for some finger range of motion as his fingers are a bit stiff, but really not too bad considering everything. I would recommend probably at least 2 mo re weeks of antibiotics for him. We will check a sed rate and C-reactive protein to see where that i s. Any orthopedic questions can be directed to me at [phone]. Job ID: [id number]
[2021-02-21] MEDS: DAPTOmycin 850 MG in SYRINGE 0 ML IV SCH (15:50)
[2021-02-21] MEDS: oxyCODONE HCL IR 5 MG TAB (IMMEDIATE RELEASE) PO PRN (15:53)
--- NOTE | 2021-02-21 18:09 | Nephrology Progress Note ---
Date of Service February 21, 2021 Assessment & Plan (1) Acute renal failure: Plan: improving Stage 3 nonoliguric JARROD, likely ATN from medications. baseline creatinine 1.1-1.2 in December 2020 and months prior. vanco levels over the past month were generally <20; intermittent high values were not persistent. presented [facility] creatinine 3.5 on 02/17 after creat 3.9 on 02/15 prior to admission. likely multifactorial including bactrim, vanco, lisininopril, diuretics. ch emistries ok but he is volume overloaded. -hold bactrim and vancomycin for now -daily bmp; no indication for urgent dialysis -on lowered gabapentin dose now -hold ACEI -diuretics as below; start standing daily K 20 mEq po which should continue -continue dialysis /renal diet for now; may be able to be less diet-restrictive soon (2) Metabolic encephalopathy: Plan: -could be in part d/t ongoing high gabapentin dose with renal failure : consider lower dose as tolerated, ideally about 300 mg DAILY for now -continue other work up (3) Fluid overload: Plan: improveing; multifactorial attributable to HFpEF, chronic respiratory failure and potentially to medications like full dose CCB and high dose gabapentin -halved amlodipine to 5 mg daily 02/19 -lower jamar dose as tolerated -has been on bumex 2 mg po daily > given plateau in improvement in renal function will lower bumex to 1 mg daily starting tomorrow -no FR for now but may need to consider Admission and Anticipated Discharge Date Admission Date: February 17, 2021 Subjective he is more confused today > asking me about why police officers are in the room. denies pain or dyspnea; declines to participate in rest of ROS Review of Systems Review of Systems: All systems reviewed & are unremarkable except as noted in Subjective Physical Exam Constitutional: well developed, well nourished, + morbidly obese and comfortable; no acute distress Eyes: EOM intact bilaterally ENMT: Ears: no external ear abnormality Nose: no external nose abnormality Mouth: + dry oral mucous membranes Neck: no nuchal rigidity Respiratory: normal respiratory effort Auscultation: + diminished lung sounds Cardiovascular: Rate/Rhythm: regular rate and regular rhythm Heart Sounds: normal S1 (distant) and normal S2 Extremities: + edema (1+ pretibial/pedal) Gastrointestinal (Abdomen): Inspection/Auscultation: normal bowel sounds Percussion/Palpation: abdomen soft; abdomen nontender Musculoskeletal: Extremities: + abnormal strength (generalized weakness) Skin: no rashes, warm and dry Trauma: + evidence of skin trauma (dorsum R hand 4 x 2 cm; L pretibial ulcers; all trauma remote and healing) Neurologic: awake and + confused Results & Data ([facility]) Vital Signs (Past 12 Hours) Vital Signs Pulse 02/21/21 09:47 66 Laboratory Results 02/20/21 07:01 02/21/21 08:26
--- NOTE | 2021-02-21 19:13 | Hospitalist Progress Note ---
Date of Service February 21, 2021 Assessment & Plan (1) Metabolic encephalopathy: Plan: Patient is 66-year-old male with PMH COVID-19 in 10/2020 and has continued to test positive, DM II, CKD III, chronic respiratory failure on 2L O2, COPD, CHF with preserved EF, HTN, HLD, FRANCIS intolerant to CPAP, morbid obesity, anemia presented to ER from [facility] for altered mental status. Possible related to JARROD with creatinine 3.5 on admission vs infection CT head showed no acute intracranial findings Continue gabapentin 100mg for now due to decrease in renal function Will consider to increase gabapentin to 200mg due to his neuropathy Continue monitor closely (2) Acute kidney injury superimposed on CKD: Plan: H/O CKD III BUN: 41, Cr: 3.5. Cr was 1.9 on 02/03/2021. K: 4.6 Possible related to vancomycin, Bactrim lisinopril, diuretics. Received IVF 500ml in the ER Continue to hold vancomycin, Bactrim, lisinopril and Bumex at this time Nephrology on board Creatinine 2.39 today Nephrology plan to start on Bumex today, will monitor BMP Avoid nephrotoxic agents when possible Continue monitor BMP (3) Septic arthritis of hand, right: Plan: History hospitalization 12/30-01/12/21 at [facility] for right dorsal hand abscess and third MCP septic arthritis. S/P I&D on 12/31/2020. S/P washout 01/03/2021. + MRSA on wound culture. Was treated with vancomycin and discharged to [facility] on vancomycin for 5 additional weeks Bactrim started 02/06/21 Blood cultures grew strep species Wound culture grew MRSA and Clostridium clostridiiforme We will start on antibiotic with Dapto and metronidazole Orthopedic on board recommend conservative management No surgical intervention as per Ortho ID on board recommend to continue daptomycin for 2 weeks and metronidazole 500mg TID PO Wound care consult (4) Chronic diastolic CHF (congestive heart failure): Plan: CHF with preserved EF Appears to be euvolemic at this time Will start on Bumex 2mg daily Will monitor closely for volume overload Continue monitor closely (5) History of COVID-19: Plan: H/O positive COVID 19 test 10/20/2020. Was hospitalized at [facility] for acute respiratory failure secondary to Covid pneumonia and decompensated CHF. He was treated with tocilizumab, remdesivir, dexamethasone. Continues to test positive COVID 19 PCR CXR: Right greater than left bilateral airspace opacities have mildly improved from comparison Continue isolation Asymptomatic (6) COPD (chronic obstructive pulmonary disease): Plan: Chronic respiratory failure. On 2L oxygen No signs exacerbation Continue supplemental oxygen Continue home inhalers (7) Diabetes mellitus, type II: Plan: A1c: 7.1 on 11/30 Continue home Lantus NovoLog sliding scale per protocol (8) Coronary artery disease: Plan: Denies any shortness of breath, chest pain Continue carvedilol, atorvastatin (9) Anemia: Plan: Hgb: 8.2 (Hgb 8-10 during last couple of months) Last admission hemoglobin dropped to 6.9 post op. s/p 1 unit PRBCs on 01/01/2021 No signs of active bleeding. Denies melena, hematochezia Monitor H&H Transfuse as needed Continue iron supplement (10) Hypertension: Plan: BP stable Continue to hol lisinopril with JARROD Continue carvedilol, amlodipine with holding parameters (11) Hyperlipidemia: Plan: Will hold atorvastatin while starting on Dapto (12) Depression: Plan: Continue duloxetine, sertraline (13) FRANCIS (obstructive sleep apnea): Plan: Noncompliant with CPAP DVT Prophylaxis -SCDs Full Code as per discussion with pt Currently at [facility] Admission and Anticipated Discharge Date Admission Date: February 17, 2021 Subjective Pt was seen and examined for follow up of altered mental status Lying in bed with no distress with no acute distress Patient slept well last night with the low-dose Seroquel Denies any chest pain, palpitation, dizziness and SOB Review of Systems Review of Systems: All systems reviewed & are unremarkable except as noted in Subjective Physical Exam Physical Exam: General- No acute distress Head- atraumatic Eyes- PERRL, EOMI, ENT- oropharynx clear Neck- supple, no JVD Lungs- no wheezing Heart- regular rhythm; no murmur Abdomen- normal bowel sounds, soft, nontender Extremities- no calf tenderness, wound in R dorsal hand area with granulation formation, no drainage, no redness Neuro- alert, oriented x 3; PERRL, EOMI; no facial palsy; no dysarthria Skin- warm & dry Results & Data Results & Data ([facility]) Vital Signs (Past 12 Hours) Vital Signs Pulse 02/21/21 09:47 66
[2021-02-21] MEDS: QUEtiapine FUMARATE 25 MG TABLET PO SCH (20:13)
[2021-02-21] MEDS: MONTELUKAST SODIUM 10 MG TABLET PO SCH (20:14)
[2021-02-22] MEDS: metroNIDAZOLE 500 MG/100 ML BAG IV SCH ×3 (06:13→20:30)
[2021-02-22] MEDS: BUMETANIDE 1 MG TAB PO SCH (08:03)
[2021-02-22] MEDS: carvediloL 12.5 MG TAB PO SCH ×2 (08:03→17:22)
[2021-02-22] MEDS: amLODIPine BESYLATE 5 MG TAB PO SCH (08:03)
[2021-02-22] MEDS: PANTOprazole 40 MG TAB PO SCH (08:03)
[2021-02-22] MEDS: CHOLECALCIFEROL 1,000 UNITS 25 MCG TAB PO SCH (08:04)
[2021-02-22] MEDS: SERTRALINE HCL 100 MG TABLET PO SCH (08:04)
[2021-02-22] MEDS: POTASSIUM CHLORIDE CRTAB 20 MEQ TABCR PO SCH (08:04)
[2021-02-22] MEDS: TAMSULOSIN HCL 0.4 MG CAP PO SCH (08:04)
[2021-02-22] MEDS: FERROUS SULFATE 325 MG TAB PO SCH ×2 (08:04→20:28)
[2021-02-22] MEDS: GABAPENTIN 100 MG CAP PO SCH ×3 (08:04→19:55)
[2021-02-22] MEDS: INSULIN GLARGINE SOLOSTAR 100 UNITS/ML 3 ML PEN SC SCH ×2 (08:05→20:37)
[2021-02-22] MEDS: UMECLIDINIUM/VILANTEROL 62.5/25MCG 7 PUFFS/INHALER INH SCH (08:05)
[2021-02-22] MEDS: DULoxetine HCL 60 MG CAP PO SCH (08:06)
[2021-02-22] MEDS: INSULIN ASPART 100 UNITS/ML 3 ML PEN SC SCH ×4 (08:06→20:29)
[2021-02-22 08:09] LABS: Creatinine Clr Calc Pharmacy 50.2 ml/min; Est GFR (Non-African American) 30.2 ml/min
[2021-02-22] MEDS: DAPTOmycin 850 MG in SYRINGE 0 ML IV SCH (14:42)
--- NOTE | 2021-02-22 16:43 | Hospitalist Progress Note ---
Date of Service February 22, 2021 Assessment & Plan (1) Metabolic encephalopathy: Plan: Patient is 66-year-old male with PMH COVID-19 in 10/2020 and has continued to test positive, DM II, CKD III, chronic respiratory failure on 2L O2, COPD, CHF with preserved EF, HTN, HLD, FRANCIS intolerant to CPAP, morbid obesity, anemia presented to ER from [facility] for altered mental status. Possible related to JARROD with creatinine 3.5 on admission vs infection CT head showed no acute intracranial findings Continue gabapentin 100mg for now due to decrease in renal function Gabapentin increased to 200mg due to his neuropathy Continue monitor closely (2) Acute kidney injury superimposed on CKD: Plan: H/O CKD III BUN: 41, Cr: 3.5. Cr was 1.9 on 02/03/2021. K: 4.6 Possible related to vancomycin, Bactrim lisinopril, diuretics. Received IVF 500ml in the ER Continue to hold vancomycin, Bactrim, lisinopril and Bumex at this time Nephrology on board Creatinine 2.22 today Nephrology on board Continue Bumex 1 mg daily Avoid nephrotoxic agents when possible Continue monitor BMP (3) Septic arthritis of hand, right: Plan: History hospitalization 12/30-01/12/21 at [facility] for right dorsal hand abscess and third MCP septic arthritis. S/P I&D on 12/31/2020. S/P washout 01/03/2021. + MRSA on wound culture. Was treated with vancomycin and discharged to [facility] on vancomycin for 5 additional weeks Bactrim started 02/06/21 Blood cultures grew strep species Wound culture grew MRSA and Clostridium clostridiiforme We will start on antibiotic with Dapto and metronidazole Orthopedic on board recommend conservative management No surgical intervention as per Ortho ID on board recommend to continue daptomycin for 2 weeks and metronidazole 500mg TID PO Will place a midline or ultrasound peripheral guided access tomorrow if blood culture remain negative Prescription for daptomycin IV already given to case management Will continue metronidazole 500 mg 3 times daily for 2 weeks as well Follow-up with the wound care clinic (4) Chronic diastolic CHF (congestive heart failure): Plan: CHF with preserved EF Appears to be euvolemic at this time Continue Bumex 1mg daily Will monitor closely for volume overload Continue monitor closely (5) History of COVID-19: Plan: H/O positive COVID 19 test 10/20/2020. Was hospitalized at [facility] for acute respiratory failure secondary to Covid pneumonia and decompensated CHF. He was treated with tocilizumab, remdesivir, dexamethasone. Continues to test positive COVID 19 PCR CXR: Right greater than left bilateral airspace opacities have mildly improved from comparison Continue isolation Asymptomatic (6) COPD (chronic obstructive pulmonary disease): Plan: Chronic respiratory failure. Patient said that the only use 2L oxygen at night No signs exacerbation Continue supplemental oxygen, plan to wean off on oxygen Continue home inhalers (7) Diabetes mellitus, type II: Plan: A1c: 7.1 on 11/30 Continue home Lantus NovoLog sliding scale per protocol (8) Coronary artery disease: Plan: Denies any shortness of breath, chest pain Continue carvedilol, atorvastatin (9) Anemia: Plan: Hgb: 8.2 (Hgb 8-10 during last couple of months) Last admission hemoglobin dropped to 6.9 post op. s/p 1 unit PRBCs on 01/01/2021 No signs of active bleeding. Denies melena, hematochezia Monitor H&H Transfuse as needed Continue iron supplement (10) Hypertension: Plan: BP stable Continue to hol lisinopril with JARROD Continue carvedilol, amlodipine with holding parameters (11) Hyperlipidemia: Plan: Will hold atorvastatin while starting on Dapto (12) Depression: Plan: Continue duloxetine, sertraline (13) FRANCIS (obstructive sleep apnea): Plan: Noncompliant with CPAP DVT Prophylaxis -SCDs Full Code as per discussion with pt Currently at [facility] Admission and Anticipated Discharge Date Admission Date: February 17, 2021 Subjective Pt was seen and examined for follow up of altered mental status Sitting at the edge of the bed with no distress with no acute distress working with Occupational Therapy Denies any chest pain, palpitation, dizziness and SOB Review of Systems Review of Systems: All systems reviewed & are unremarkable except as noted in Subjective Physical Exam Physical Exam: General- No acute distress Head- atraumatic Eyes- PERRL, EOMI, ENT- oropharynx clear Neck- supple, no JVD Lungs- no wheezing Heart- regular rhythm; no murmur Abdomen- normal bowel sounds, soft, nontender Extremities- no calf tenderness, wound in R dorsal hand area with granulation formation, no drainage, no redness Neuro- alert, oriented x 3; PERRL, EOMI; no facial palsy; no dysarthria Skin- warm & dry Results & Data Results & Data ([facility]) Vital Signs (Past 12 Hours) Vital Signs Temp Pulse Pulse Resp BP Pulse Ox Pulse Ox 02/22/21 14:35 96 02/22/21 14:21 96 02/22/21 12:25 36.8 C 76 18 112/61 99 02/22/21 10:45 66 02/22/21 07:36 37.1 C 65 20 129/65 100
[2021-02-22] MEDS: MONTELUKAST SODIUM 10 MG TABLET PO SCH (20:29)
[2021-02-22] MEDS: QUEtiapine FUMARATE 25 MG TABLET PO SCH (20:30)
[2021-02-22] MEDS ORDERED: LORazepam 0.5 MG/1 ML VIAL IV STA (23:21)
[2021-02-23 05:51] LABS: Hematocrit (blood only) 29.1 % (42-52); Hemoglobin 9.1 g/dL (14.0-18.0); Mean Corpuscular Hemoglobin 26.7 pg (25-34); Mean Corpuscular Hgb Conc 31.3 g/dL (32-36); Mean Corpuscular Volume 85.3 fL (80-100); Platelet Count 245 K/uL (130-400); RDW Coefficient of Variation 16.1 % (11.5-14.5); RDW Standard Deviation 50.2 fL (36.4-46.3); Red Blood Count 3.41 M/uL (4.7-6.1); White Blood Count 10.61 K/uL (4.8-10.8)
[2021-02-23 06:14] LABS: BUN Creatinine Ratio 21.1 (10-20); Calcium 10.1 mg/dl (8.5-10.1); Creatinine Clr Calc Pharmacy 48.5 ml/min; Est GFR (African American) 33.5 ml/min; Est GFR (Non-African American) 28.9 ml/min; Potassium 3.6 mmol/L (3.5-5.1)
[2021-02-23] MEDS: TAMSULOSIN HCL 0.4 MG CAP PO SCH (08:19)
[2021-02-23] MEDS: CHOLECALCIFEROL 1,000 UNITS 25 MCG TAB PO SCH (08:19)
[2021-02-23] MEDS: PANTOprazole 40 MG TAB PO SCH (08:19)
[2021-02-23] MEDS: DULoxetine HCL 60 MG CAP PO SCH (08:19)
[2021-02-23] MEDS: BUMETANIDE 1 MG TAB PO SCH (08:19)
[2021-02-23] MEDS: SERTRALINE HCL 100 MG TABLET PO SCH (08:19)
[2021-02-23] MEDS: amLODIPine BESYLATE 5 MG TAB PO SCH (08:19)
[2021-02-23] MEDS: POTASSIUM CHLORIDE CRTAB 20 MEQ TABCR PO SCH (08:19)
[2021-02-23] MEDS: GABAPENTIN 100 MG CAP PO SCH ×2 (08:19→13:30)
[2021-02-23] MEDS: FERROUS SULFATE 325 MG TAB PO SCH (08:20)
[2021-02-23] MEDS: carvediloL 12.5 MG TAB PO SCH (08:20)
[2021-02-23] MEDS: metroNIDAZOLE 500 MG/100 ML BAG IV SCH (08:20)
[2021-02-23] MEDS: UMECLIDINIUM/VILANTEROL 62.5/25MCG 7 PUFFS/INHALER INH SCH (08:20)
[2021-02-23] MEDS: INSULIN ASPART 100 UNITS/ML 3 ML PEN SC SCH ×2 (09:38→12:11)
[2021-02-23] MEDS: INSULIN GLARGINE SOLOSTAR 100 UNITS/ML 3 ML PEN SC SCH (09:39)
--- NOTE | 2021-02-23 09:39 | Nephrology Progress Note ---
Date of Service February 23, 2021 Assessment & Plan (1) Acute renal failure: Plan: improving Stage 3 nonoliguric JARROD, likely ATN from medications. baseline creatinine 1.1-1.2 in December 2020 and months prior. vanco levels over the past month were generally <20; intermittent high values were not persistent. presented [facility] creatinine 3.5 on 02/17 after creat 3.9 on 02/15 prior to admission. likely multifactorial including bactrim, vanco, lisininopril, diuretics. ch emistries ok but he was volume overloaded earlier this admission. -hold bactrim and vancomycin -on lowered gabapentin dose now -hold ACEI now and at d/c -diuretics as below; start standing daily K 20 mEq po which should continue -continue dialysis /renal diet for now; may be able to be less diet-restrictive soon NEPHROLOGY DISCHARGE RECS: -continue current blood pressure medications, current lower than admission diuretic and gabapentin doses, and current K supplements -check bmp in one week < nephro to order -pls arrange hospital discharge/follow up appt in CKD clinic any provider in 1-2 wks; may need to go to [facility] coordinated w/ DR Bae. (2) Metabolic encephalopathy: Plan: -could be in part d/t ongoing high gabapentin dose with renal failure : consider lower dose as tolerated, ideally about 300 mg DAILY for now -further per primary service (3) Fluid overload: Plan: improved; multifactorial attributable to HFpEF, chronic respiratory failure and potentially to medications like full dose CCB and high dose gabapentin -halved amlodipine to 5 mg daily 02/19 -lower jamar dose as tolerated -had been on bumex 2 mg po daily > given plateau in improvement in renal function lowered bumex to 1 mg daily and tolerating -no FR for now but may need to consider Admission and Anticipated Discharge Date Admission Date: February 17, 2021 Subjective for possible d/c today; no c/o of pain or dypsnea or edema; confusion better but still challenging for him to interact at times Review of Systems Review of Systems: Other (limited by pt MS) Physical Exam Constitutional: well developed, well nourished, + morbidly obese and comfortable; no acute distress Eyes: EOM intact bilaterally ENMT: Ears: no external ear abnormality Nose: no external nose abnormality Mouth: + dry oral mucous membranes Neck: no nuchal rigidity Respiratory: normal respiratory effort Auscultation: + diminished lung sounds Cardiovascular: Rate/Rhythm: regular rate and regular rhythm Heart Sounds: normal S1 (distant) and normal S2 Extremities: + edema (1+ pretibial/pedal) Gastrointestinal (Abdomen): Inspection/Auscultation: normal bowel sounds Percussion/Palpation: abdomen soft; abdomen nontender Musculoskeletal: Extremities: + abnormal strength (generalized weakness) Skin: no rashes, warm and dry Trauma: + evidence of skin trauma (dorsum R hand 4 x 2 cm; L pretibial ulcers; all trauma remote and healing) Neurologic: awake and + confused Results & Data ([facility]) Vital Signs (Past 12 Hours) Vital Signs Temp Pulse Pulse Resp BP Pulse Ox 02/23/21 07:46 36.8 C 93 H 18 133/73 95 02/22/21 23:37 36.9 C 80 20 98/54 L 90 02/22/21 23:25 85 Laboratory Results 02/23/21 05:32 02/23/21 05:32
[2021-02-23] MEDS: oxyCODONE HCL IR 5 MG TAB (IMMEDIATE RELEASE) PO PRN (10:30)
[2021-02-23] MEDS: DAPTOmycin 850 MG in SYRINGE 0 ML IV SCH (12:02)
--- NOTE | 2021-02-23 12:52 | Hospitalist Progress Note ---
Date of Service February 23, 2021 Assessment & Plan (1) Metabolic encephalopathy: Plan: Patient is 66-year-old male with PMH COVID-19 in 10/2020 and has continued to test positive, DM II, CKD III, chronic respiratory failure on 2L O2, COPD, CHF with preserved EF, HTN, HLD, FRANCIS intolerant to CPAP, morbid obesity, anemia presented to ER from [facility] for altered mental status. Possible related to JARROD with creatinine 3.5 on admission vs infection CT head showed no acute intracranial findings Continue gabapentin 100mg for now due to decrease in renal function Gabapentin increased to 200mg due to his neuropathy Seems to be at his baseline No more acute confusion (2) Acute kidney injury superimposed on CKD: Plan: H/O CKD III BUN: 41, Cr: 3.5. Cr was 1.9 on 02/03/2021. K: 4.6 Possible related to vancomycin, Bactrim lisinopril, diuretics. Continue to hold vancomycin, Bactrim, lisinopril and Bumex at this time Appreciate nephrology input and recommendation Creatinine is 2.30 as of 02/23/2021 Avoid nephrotoxic agents when possible We will continue current dose of diuretics on discharge and hold other medications are as advised by the postal delivery officer We will have outpatient appointment with postal delivery officer within 1 to 2 weeks (3) Septic arthritis of hand, right: Plan: History hospitalization 12/30-01/12/21 at [facility] for right dorsal hand abscess and third MCP septic arthritis. S/P I&D on 12/31/2020. S/P washout 01/03/2021. + MRSA on wound culture. Was treated with vancomycin and discharged to [facility] on vancomycin for 5 additional weeks Bactrim started 02/06/21 Blood cultures grew strep species Wound culture grew MRSA and Clostridium clostridiiforme Orthopedic on board recommend conservative management ID on board recommend to continue daptomycin for 2 weeks and metronidazole 500mg TID PO Will place a midline or ultrasound peripheral guided access tomorrow if blood culture remain negative Prescription for daptomycin IV already given to case management Will continue metronidazole 500 mg 3 times daily for 2 weeks as well Follow-up with the wound care clinic Clinically much better and ready to be discharged (4) Chronic diastolic CHF (congestive heart failure): Plan: CHF with preserved EF Appears to be euvolemic at this time Continue Bumex 1mg daily Will monitor closely for volume overload Chest remains clear on auscultation No symptoms of fluid overload (5) History of COVID-19: Plan: H/O positive COVID 19 test 10/20/2020. Was hospitalized at [facility] for acute respiratory failure secondary to Covid pneumonia and decompensated CHF. He was treated with tocilizumab, remdesivir, dexamethasone. Continues to test positive COVID 19 PCR CXR: Right greater than left bilateral airspace opacities have mildly improved from comparison Continue isolation Asymptomatic Will need to be isolated until 02/27/2021 (6) COPD (chronic obstructive pulmonary disease): Plan: Chronic respiratory failure. Patient said that the only use 2L oxygen at night No signs exacerbation Continue supplemental oxygen, plan to wean off on oxygen Continue home inhalers (7) Diabetes mellitus, type II: Plan: A1c: 7.1 on 11/30 Continue home Lantus NovoLog sliding scale per protocol (8) Coronary artery disease: Plan: Denies any shortness of breath, chest pain Continue carvedilol, atorvastatin (9) Anemia: Plan: Hgb: 8.2 (Hgb 8-10 during last couple of months) Last admission hemoglobin dropped to 6.9 post op. s/p 1 unit PRBCs on 01/01/2021 No signs of active bleeding. Denies melena, hematochezia Monitor H&H Transfuse as needed Continue iron supplement-hemoglobin remains stable at 9.1 on 02/23/2021 (10) Hypertension: Plan: BP stable Continue to hol lisinopril with JARROD Continue carvedilol, amlodipine with holding parameters (11) Hyperlipidemia: Plan: Will hold atorvastatin while starting on Dapto (12) Depression: Plan: Continue duloxetine, sertraline (13) FRANCIS (obstructive sleep apnea): Plan: Noncompliant with CPAP DVT Prophylaxis -SCDs Full Code as per discussion with pt Currently at [facility] Plan: Will be transferred to [facility] this afternoon Admission and Anticipated Discharge Date Admission Date: February 17, 2021 Subjective 02/23/2021 The patient was seen and examined in medical telemetry unit He has been feeling much better and complains to have minimal cough and shortness of breath Denies any significant pain Review of Systems Review of Systems: All systems reviewed and are unremarkable except as noted below Respiratory: Cough and minimal shortness of breath at rest Physical Exam Physical Exam: Lying in bed comfortably Constitutional: well developed, well nourished, + ill appearing and + obese Eyes: PERRL, conjunctivae normal, anicteric sclerae ENMT: external ear and nose normal, oropharynx normal Neck: trachea midline, no thyromegaly Respiratory: + respiratory distress (Minimal to no distress at rest) Auscultation: lungs clear to auscultation bilaterally Cardiovascular: Rate/Rhythm: regular rate and regular rhythm Heart Sounds: normal S1 and normal S2; no murmur Extremities: + edema (Trace edema bilaterally) Gastrointestinal (Abdomen): Inspection/Auscultation: abdomen normal to inspection; abdomen not distended Percussion/Palpation: abdomen soft; abdomen nontender Musculoskeletal: No acute arthritis in any joint Neurologic: Alert, awake and oriented x3. Generally weak but no focal sensory or motor deficit appreciated Results & Data Results & Data ([facility]) Vital Signs (Past 12 Hours) Vital Signs Temp Pulse Resp BP BP Pulse Ox 02/23/21 10:37 36.8 C 93 H 18 133/73 113/68 95 02/23/21 07:46 36.8 C 93 H 18 133/73 95 Laboratory Results Short CBC 02/23/21 Range/Units 05:32 WBC 10.61 (4.8-10.8) K/uL Hgb 9.1 L (14.0-18.0) g/dL Hct 29.1 L (42-52) % Plt Count 245 (130-400) K/uL BMP 02/23/21 05:32 Sodium 137 Potassium 3.6 Chloride 106 Carbon Dioxide 25 BUN 49 H Creatinine 2.30 H Glucose 157 H Calcium 10.1 Medications Administered Current Inpatient Medications Acetaminophen (Acetaminophen 325 Mg Tab) 650 mg PO Q4H PRN PRN Reason: Pain or Fever Stop: 03/19/21 18:37 Albuterol (Albuterol 0.083% Nebu Soln 3 Ml Vial) 2.5 mg NEB Q6R PRN PRN Reason: Shortness Of Breath Or Wheezing Stop: 03/19/21 18:59 Amlodipine Besylate (Amlodipine Besylate 5 Mg Tab) 5 mg PO QAM ZOHAIB Stop: 03/21/21 08:59 Last Admin: 02/23/21 08:19 Dose: 5 mg Documented by: Atorvastatin Calcium (Atorvastatin 40 Mg Tab) 40 mg PO HS ZOHAIB Stop: 03/19/21 20:59 Last Admin: 02/19/21 20:50 Dose: 40 mg Documented by: Bumetanide (Bumetanide 1 Mg Tab) 1 mg PO QAM ZOHAIB Stop: 03/24/21 08:59 Last Admin: 02/23/21 08:19 Dose: 1 mg Documented by: Carvedilol (Carvedilol 12.5 Mg Tab) 12.5 mg PO BIDM ZOHAIB Stop: 03/19/21 18:37 Last Admin: 02/23/21 08:20 Dose: 12.5 mg Documented by: Dextrose (Dextrose 50% 50 Ml Syringe) 25 - 50 ml IV UD PRN; Protocol PRN Reason: Hypoglycemia Protocol Stop: 03/19/21 18:37 Docusate Sodium (Docusate Sodium 100 Mg Cap) 100 mg PO BID PRN PRN Reason: Constipation Stop: 03/19/21 18:37 Duloxetine HCl (Duloxetine Hcl 60 Mg Cap) 60 mg PO DAILY ZOHAIB Stop: 03/20/21 08:59 Last Admin: 02/23/21 08:19 Dose: 60 mg Documented by: Ferrous Sulfate (Ferrous Sulfate 325 Mg Tab) 325 mg PO BID ZOHAIB Stop: 03/19/21 20:59 Last Admin: 02/23/21 08:20 Dose: 325 mg Documented by: Gabapentin (Gabapentin 100 Mg Cap) 200 mg PO TID ZOHAIB Stop: 03/22/21 13:59 Last Admin: 02/23/21 08:19 Dose: 200 mg Documented by: Glucagon (Glucagon For Inj 1 Mg Vial) 1 mg SQ UD PRN; Protocol PRN Reason: Hypoglycemia Protocol Stop: 03/19/21 18:37 Glucose (Glucose 10 Tabs/Tube) 4 - 8 tabs PO UD PRN; Protocol PRN Reason: Hypoglycemia Protocol Stop: 03/19/21 18:37 Glucose (Glucose 40% Gel 15 Gm Tube) 15 - 30 gm PO UD PRN; Protocol PRN Reason: Hypoglycemia Protocol Stop: 03/19/21 18:37 Sodium Chloride (Nss) 250 mls @ 15 mls/hr IV .[id number] PRN PRN Reason: For Transfusion Stop: 03/19/21 18:37 Metronidazole (Flagyl) 500 mg in 100 mls @ 100 mls/hr IV Q8H ZOHAIB Stop: 03/05/21 14:59 Last Infusion: 02/23/21 09:21 Dose: Infused Documented by: Daptomycin 850 mg/ Syringe 17 mls @ 8.5 mls/min IV Q24H [facility]; Protocol Stop: 03/05/21 14:59 Last Admin: 02/23/21 12:02 Dose: 8.5 mls/min Documented by: Insulin Aspart (Insulin Aspart 100 Units/Ml 3 Ml Pen) 0 units SC ACHS [facility] Stop: 03/19/21 18:37 Last Admin: 02/23/21 12:11 Dose: 4 units Documented by: Insulin Glargine (Insulin Glargine Solostar 100 Units/Ml 3 Ml Pen) 15 units SC BID [facility] Stop: 03/19/21 20:59 Last Admin: 02/23/21 09:39 Dose: 15 units Documented by: Miscellaneous (Carbohydrates For Hypoglycemia ) 15 - 30 gm PO UD PRN PRN Reason: Hypoglycemia Protocol Stop: 03/19/21 18:37 Miscellaneous Information (Daptomycin Consult Active) 1 ea N/A UD PRN PRN Reason: Consult Stop: 03/21/21 14:43 Montelukast Sodium (Montelukast Sodium 10 Mg Tablet) 10 mg PO HS [facility] Stop: 03/19/21 20:59 Last Admin: 02/22/21 20:29 Dose: 10 mg Documented by: Ondansetron HCl (Ondansetron Inj 2 Mg/Ml 2 Ml Vial) 4 mg IV Q6H PRN PRN Reason: Nausea Stop: 03/19/21 18:37 Oxycodone HCl (Oxycodone Hcl Ir 5 Mg Tab (Immediate Release)) 5 mg PO Q12H PRN PRN Reason: Breakthrough Pain Stop: 03/03/21 18:37 Last Admin: 02/23/21 10:30 Dose: 5 mg Documented by: Pantoprazole Sodium (Pantoprazole 40 Mg Tab) 40 mg PO DAILY [facility] Stop: 03/20/21 08:59 Last Admin: 02/23/21 08:19 Dose: 40 mg Documented by: Polyethylene Glycol (Polyethylene (Miralax) 17 Gm Pack) 17 gm PO DAILY PRN PRN Reason: Constipation Stop: 03/19/21 18:37 Potassium Chloride (Potassium Chloride Crtab 20 Meq Tabcr) 20 meq PO QAM [facility] Stop: 03/22/21 18:59 Last Admin: 02/23/21 08:19 Dose: 20 meq Documented by: Quetiapine Fumarate (Quetiapine Fumarate 25 Mg Tablet) 25 mg PO HS ZOHAIB Stop: 03/22/21 20:59 Last Admin: 02/22/21 20:30 Dose: 25 mg Documented by: Sertraline HCl (Sertraline Hcl 100 Mg Tablet) 100 mg PO DAILY ZOHAIB Stop: 03/20/21 08:59 Last Admin: 02/23/21 08:19 Dose: 100 mg Documented by: Tamsulosin HCl (Tamsulosin Hcl 0.4 Mg Cap) 0.8 mg PO DAILY ZOHAIB Stop: 03/20/21 08:59 Last Admin: 02/23/21 08:19 Dose: 0.8 mg Documented by: Umeclidinium/Vilanterol (Umeclidinium/Vilanterol 62.5/25mcg 7 Puffs/Inhaler) 1 puffs INH DAILY ZOHAIB Stop: 03/20/21 08:59 Last Admin: 02/23/21 08:20 Dose: 1 puffs Documented by: Vitamin D (Cholecalciferol 1,000 Units 25 Mcg Tab) 2,000 units PO DAILY ZOHAIB Stop: 03/20/21 08:59 Last Admin: 02/23/21 08:19 Dose: 2,000 units Documented by:
--- NOTE | 2021-02-23 17:39 | Discharge Summary ---
Date of Service February 23, 2021 Admission HPI Per Admitting Provider Patient is 66-year-old male with PMH COVID-19 in 10/2020 and has continued to test positive, DM II, CKD III, chronic respiratory failure on 2L O2, COPD, CHF with preserved EF, HTN, HLD, FRANCIS intolerant to CPAP, morbid obesity, anemia presented to ER from [facility] for altered mental status. Patient with history hospitalization 12/30-01/12/21 at [facility] for right dorsal hand abscess and third MCP septic arthritis. S/P I&D on 12/31/2020. S/P washout 01/03/2021. + MRSA on wound culture. Was treated with vancomycin and discharged to [facility] on vancomycin for 5 additional weeks. During that admission also had anemia after surgery with drop in hemoglobin to 6.9 s/p 1 unit PRBCs on 01/01/2021. Patient was started on Bactrim on 02/06/2021. Patient with some current confusion, however denies chest pain, shortness of breath, cough, rhinorrhea, fever, chills. He states he is thirsty and throat feels dry but denies sore throat. Denies any increased pain, swelling or redness to right hand. He does not think there has been discharged from [facility]. Patient unsure about lower extremity edema as he reports he cannot see his legs. Denies N/V/D/C, HAMILTON, dizziness, syncope, vision changes, neck pain, palpitations, choking, otalgia, abdominal pain, paresthesias, other rashes, urinary symptoms. Patient with history positive COVID 19 test 10/20/2020. He was hospitalized at [facility] for acute respiratory failure secondary to Covid pneumonia and decompensated CHF. He was treated with tocililumab, remdesivir, dexamethasone. Hospitalization 11/29/2020-12/01/2020 at [facility] for Covid pneumonia, acute resp iratory failure Hospitalization 12/08-12/21/20 at [facility] for acute respiratory failure Today in ER vitals stable, no leukocytosis. Was found to have JARROD on CKD. BUN: 41, Cr: 3.5 (was 1.9 on 02/03/2021). CT head no acute changes Patient being admitted for further evaluation and treatment Admission Exam Per Admitting Provider Physical Exam: General: no acute distress, obese Head: normocephalic, atraumatic Eyes: PERRL, EOM's intact, conjunctiva non-injected, anicteric ENT: normal inspection external ears, nose, mucous membranes moist Neck: supple, trachea midline Lungs: clear, no respiratory distress, no wheezing/rhonchi/rales CV: regular rhythm, bradycardia, 58, no murmur, trace pretibial edema Abd: normal BS, soft, non-tender Ext: no cyanosis, no calf tenderness; R Hand: dorsal hand with +wound, slight granulation tissue, no active drainage, hand with mild edema, no significant warmth Neuro: Alert, oriented to person, month, year. Initially unsure of location, then states is in hospital, unsure what hospital. no focal deficits noted, normal affect Skin: warm, dry Principal Diagnosis Acute metabolic encephalopathy, JARROD on CKD stage III, septic arthritis right hand, type 2 diabetes, sleep apnea, COPD, COVID-19 positive Discharge Exam Constitutional well developed, well nourished, + ill appearing and + obese Eyes PERRL, conjunctivae normal, anicteric sclerae ENMT external ear and nose normal, oropharynx normal Neck trachea midline, no thyromegaly Respiratory + respiratory distress (Minimal to no distress at rest) Auscultation: lungs clear to auscultation bilaterally Cardiovascular Rate/Rhythm: regular rate and regular rhythm Heart Sounds: normal S1 and normal S2; no murmur Extremities: + edema (Trace edema bilaterally) Gastrointestinal (Abdomen) Inspection/Auscultation: abdomen normal to inspection; abdomen not distended Percussion/Palpation: abdomen soft; abdomen nontender Discharge Data Allergies Allergy/AdvReac Type Severity Reaction Status Date / Time No Known Allergies Allergy Verified 02/17/21 11:50 Consultations 02/17/21 13:08 ED Decision to Admit Stat 02/17/21 16:08 Consult Nephrology Routine 02/19/21 14:41 Consult Infectious Diseases Routine 02/19/21 22:26 Consult Orthopedic Surgery Routine Ordered Studies 02/17/21 09:23 CT head/brain wo con Stat Hospital Course (1) Metabolic encephalopathy: Patient is 66-year-old male with PMH COVID-19 in 10/2020 and has continued to test positive, DM II, CKD III, chronic respiratory failure on 2L O2, COPD, CHF with preserved EF, HTN, HLD, FRANCIS intolerant to CPAP, morbid obesity, anemia presented to ER from [facility] for altered mental status. Possible related to JARROD with creatinine 3.5 on admission vs infection CT head showed no acute intracranial findings Continue gabapentin 100mg for now due to decrease in renal function Gabapentin increased to 200mg due to his neuropathy Seems to be at his baseline No more acute confusion (2) Acute kidney injury superimposed on CKD: H/O CKD III BUN: 41, Cr: 3.5. Cr was 1.9 on 02/03/2021. K: 4.6 Possible related to vancomycin, Bactrim lisinopril, diuretics. Continue to hold vancomycin, Bactrim, lisinopril and Bumex at this time Appreciate nephrology input and recommendation Creatinine is 2.30 as of 02/23/2021 Avoid nephrotoxic agents when possible We will continue current dose of diuretics on discharge and hold other medications are as advised by the raspberry checker We will have outpatient appointment with raspberry checker within 1 to 2 weeks (3) Septic arthritis of hand, right: History hospitalization 12/30-01/12/21 at [facility] for right dorsal hand abscess and third MCP septic arthritis. S/P I&D on 12/31/2020. S/P washout 01/03/2021. + MRSA on wound culture. Was treated with vancomycin and discharged to [facility] on vancomycin for 5 additional weeks Bactrim started 02/06/21 Blood cultures grew strep species Wound culture grew MRSA and Clostridium clostridiiforme Orthopedic on board recommend conservative management ID on board recommend to continue daptomycin for 2 weeks and metronidazole 500mg TID PO Will place a midline or ultrasound peripheral guided access tomorrow if blood culture remain negative Prescription for daptomycin IV already given to case management Will continue metronidazole 500 mg 3 times daily for 2 weeks as well Follow-up with the wound care clinic Clinically much better and ready to be discharged (4) Chronic diastolic CHF (congestive heart failure): CHF with preserved EF Appears to be euvolemic at this time Continue Bumex 1mg daily Will monitor closely for volume overload Chest remains clear on auscultation No symptoms of fluid overload (5) History of COVID-19: H/O positive COVID 19 test 10/20/2020. Was hospitalized at [facility] for acute respiratory failure secondary to Covid pneumonia and decompensated CHF. He was treated with tocilizumab, remdesivir, dexamethasone. Continues to test positive COVID 19 PCR CXR: Right greater than left bilateral airspace opacities have mildly improved from comparison Continue isolation Asymptomatic Will need to be isolated until 02/27/2021 (6) COPD (chronic obstructive pulmonary disease): Chronic respiratory failure. Patient said that the only use 2L oxygen at night No signs exacerbation Continue supplemental oxygen, plan to wean off on oxygen Continue home inhalers (7) Diabetes mellitus, type II: A1c: 7.1 on 11/30 Continue home Lantus NovoLog sliding scale per protocol (8) Coronary artery disease: Denies any shortness of breath, chest pain Continue carvedilol, atorvastatin (9) Anemia: Hgb: 8.2 (Hgb 8-10 during last couple of months) Last admission hemoglobin dropped to 6.9 post op. s/p 1 unit PRBCs on 01/01/2021 No signs of active bleeding. Denies melena, hematochezia Monitor H&H Transfuse as needed Continue iron supplement-hemoglobin remains stable at 9.1 on 02/23/2021 (10) Hypertension: BP stable Continue to hol lisinopril with JARROD Continue carvedilol, amlodipine with holding parameters (11) Hyperlipidemia: Will hold atorvastatin while starting on Dapto (12) Depression: Continue duloxetine, sertraline (13) FRANCIS (obstructive sleep apnea): Noncompliant with CPAP DVT Prophylaxis -SCDs Full Code as per discussion with pt Currently at [facility] Will be transferred to [facility] this afternoon Total Time Total Time Spent Total Time Spent (In Minutes): 40 minutes Discharge Plan Discharge Items Patient Disposition: Transfer Care Home Fac Reason For Visit: AMS Discharge Diagnosis: Acute metabolic encephalopathy, JARROD on CKD stage III, septic arthritis right hand, type 2 diabetes, sleep apnea, COPD, COVID-19 positive Condition on Discharge: Fair Activity: Resume your previous activity Non-emergency contact: Primary Care Provider Call non-emergency contact if: you have any medication questions and your symptoms worsen Follow-up/Referrals: Cal Mccrary MD [Surgeon] - (Date & Time 03/02/2021 11:00 AM Cal Mccrary MD [address] [place] [address] Nephrology, [facility] ) [place] [Primary Care Provider] - Diet: Carb Consistent or DM2 and Heart Healthy Addtl Attending Provider Instructions: Please take extreme precautions to avoid fall Finish the course of antibiotics Keep appointments with your providers Pending Studies at Discharge: No Stand-Alone Forms: My [facility] Skilled Items Patient informed of condition?: Yes DNR: No Discharge Level of Care: Skilled Communicable Disease: No Discharge Prognosis: Stable Lines: US Guided Peripheral IV Urinary Catheter: No Medications and DC Order Prescriptions: New daptomycin [Cubicin] 500 mg recon soln 850 mg IV DAILY 12 Days RF: 0 quetiapine 25 mg Tablet 25 mg PO HS 30 Days Qty: 30 RF: 0 bumetanide 1 mg Tablet 1 mg PO QAM 30 Days Qty: 30 RF: 0 gabapentin 100 mg Capsule 200 mg PO TID 30 Days Qty: 180 RF: 0 amlodipine [Norvasc] 5 mg Tablet 5 mg PO QAM 30 Days Qty: 30 RF: 0 metronidazole [Flagyl] 500 mg tablet 500 mg PO Q8H 14 Days Qty: 42 RF: 0 Lactinex 1 million cell tablet,chewable 1 tab PO TID Qty: 60 RF: 0 Continued atorvastatin 40 mg Tablet 40 mg PO HS RF: 0 carvedilol [Coreg] 12.5 mg Tablet 12.5 mg PO BIDM RF: 0 sertraline [Zoloft] 100 mg Tablet 100 mg PO DAILY RF: 0 tamsulosin [Flomax] 0.4 mg Capsule 0.8 mg PO DAILY RF: 0 pantoprazole [Protonix] 40 mg Tablet,Delayed Release (Dr/Ec) 40 mg PO DAILY RF: 0 ferrous sulfate [Iron (ferrous sulfate)] 325 mg (65 mg iron) Tablet 325 mg PO BID RF: 0 montelukast [Singulair] 10 mg Tablet 10 mg PO HS RF: 0 duloxetine 30 mg Capsule,Delayed Release(Dr/Ec) 60 mg PO DAILY RF: 0 cholecalciferol (vitamin D3) [Vitamin D3] 50 mcg (2,000 unit) Capsule 50 mcg PO DAILY RF: 0 acetaminophen [Tylenol] 325 mg Tablet 650 mg PO Q4 PRN (Reason: PAIN , SCALE 1-3) RF: 0 polyethylene glycol 3350 [Miralax] 17 gram Powder In Packet 17 g PO DAILY PRN (Reason: Constipation) RF: 0 docusate sodium [Stool Softener] 100 mg Capsule 100 mg PO BID PRN (Reason: Constipation) RF: 0 potassium chloride [K-Tab] 20 mEq Tablet Extended Release 20 meq PO DAILY RF: 0 Anoro Ellipta 62.5-25 mcg/actuation Blister With Device 1 inh INHALATION DAILY RF: 0 Lantus U-100 Insulin 100 unit/mL Solution 15 unit SUBCUT BID RF: 0 insulin aspart U-100 [Novolog U-100 Insulin aspart] 100 unit/mL Solution 1 sliding scale dose SUBCUT USEASDIRECTD RF: 0 albuterol sulfate [Proventil HFA] 90 mcg/actuation Hfa Aerosol Inhaler 1 inh INHALATION QID RF: 0 senna 8.6 mg Capsule 8.6 mg PO DAILY PRN (Reason: Constipation) RF: 0 Changed oxycodone [Roxicodone] 5 mg tablet 5 mg PO Q12H PRN (Reason: Breakthrough Pain) 5 Days Qty: 10 RF: 0 Discontinued bumetanide 2 mg Tablet 2 mg PO QAM RF: 0 amlodipine [Norvasc] 10 mg Tablet 10 mg PO QAM RF: 0 gabapentin [Neurontin] 300 mg Capsule 300 mg PO TID RF: 0 sulfamethoxazole-trimethoprim [Bactrim DS] 800-160 mg Tablet 1 tab PO BID RF: 0 oxycodone [Roxicodone] 5 mg Tablet 5 mg PO Q12 RF: 0 lisinopril [Zestril] 10 mg tablet 10 mg PO QAM RF: 0 Discharge Orders: Discharge Order (Routine); Ordered 02/23/21 Ordered By: Norm Bae Admission Data Admit Date/Time: 02/17/21 13:47 Attending Provider: Norm Bae Admit Provider: Mikki Irwin Primary Care Provider: Esteban Wang Other Providers: Mikki Irwin ; Cal Mccrary ; Maurilio Butler ; Leonardo Polanco ; Isacc Stephens I. ; Matt Espinoza II ; Leena Lamas ; Michael Slade ; Jarod Stephens Other Interventions: Discharge Summary Assessment (RN) Last Done: 02/23/21 10:37
== END 2021-02-23 15:43 | DRG 682 ==
LOC: ED 09:03 → 2W 13:47 → SUATTDRO 13:47 → 2W 17:37

== ENCOUNTER 2021-04-28 18:19 | Inpatient (IN) ==
[2021-04-28] MEDS ORDERED: ALBUT/IPRATROP 3MG/0.5MG NEB 3 ML VIAL NEB ONE (18:29)
[2021-04-28] MEDS ORDERED: methylPREDNISolone 125 MG/2 ML VIAL IV STA (18:29)
--- NOTE | 2021-04-28 18:35 | Emergency Department Note ---
History of Present Illness General Chief complaint: Illness Stated complaint: Dizzy Time Seen by Provider: 04/28/21 18:22 Source: patient Mode of arrival: EMS History of Present Illness Provider complaint: Dizziness Onset (ago): week(s) Location: head Pain Consistency: + intermittent Quality: + other (Lightheadedness without vertigo) Relieved By: + none Associated symptoms: + fever/chills, + headaches, + malaise and + shortness of breath; no chest pain, no cough or no nausea/vomiting This is a 66-year-old male brought in by ambulance for evaluation of dizziness for the past 5 to 7 days. He states that he feels lightheaded. He denies any vertigo. He states his symptoms are intermittent. He cannot characterize them further. He has no modifying factors. He states he gets short of breath occasionally. He does not know if he has emphysema. He was reported to have fever by the ambulance but he denies a fever. He is not vaccinated for COVID-19 but has been infected with COVID-19 earlier this year. He denies any abdominal pain, cough, chest pain, diarrhea or urinary symptoms. He is a rather poor historian and seems somewhat confused and often contradicting himself or giving vague answers. Home Medications Medication Instructions Recorded Confirmed Type acetaminophen 325 mg tablet 650 mg PO Q4 PRN 11/29/20 04/28/21 History (Tylenol) atorvastatin 40 mg tablet 40 mg PO HS 11/29/20 04/29/21 History docusate sodium 100 mg capsule 100 mg PO BID PRN 11/29/20 04/28/21 History (Stool Softener) ferrous sulfate 325 mg (65 mg 325 mg PO BID 11/29/20 04/29/21 History iron) tablet (Iron (ferrous sulfate)) montelukast 10 mg tablet 10 mg PO HS 11/29/20 04/29/21 History (Singulair) polyethylene glycol 3350 17 gram 17 g PO DAILY PRN 11/29/20 04/28/21 History oral powder packet (Miralax) sertraline 100 mg tablet (Zoloft) 100 mg PO DAILY 11/29/20 04/29/21 History tamsulosin 0.4 mg capsule (Flomax) 0.8 mg PO DAILY 11/29/20 04/29/21 History umeclidinium 62.5 mcg-vilanterol 1 inh INHALATION DAILY 11/29/20 04/29/21 History 25 mcg/actuation powdr for inhalation (Anoro Ellipta) insulin aspart U-100 100 unit/mL 1 sliding scale dose SUBCUT 02/17/21 04/28/21 History subcutaneous solution (Novolog USEASDIRECTD U-100 Insulin aspart) sennosides 8.6 mg capsule (senna) 8.6 mg PO DAILY PRN 02/17/21 04/28/21 History oxycodone 5 mg tablet (Roxicodone) 5 mg PO Q12H PRN 5 Days #10 tab 02/23/21 04/28/21 Rx bumetanide 1 mg tablet 2 mg PO TID 04/28/21 04/29/21 History albuterol sulfate 90 mcg/actuation 2 puff INHALATION QID PRN 04/29/21 04/29/21 History aerosol inhaler (Ventolin HFA) calcifediol 30 mcg capsule,24 60 mcg PO DAILY 04/29/21 04/29/21 History hr,extended release (Rayaldee) carvedilol 25 mg tablet 50 mg PO BID 04/29/21 04/29/21 History clonidine 0.3 mg/24 hr weekly 0.3 mg TOPICAL WK 04/29/21 04/29/21 History transdermal patch duloxetine 60 mg capsule,delayed 60 mg PO DAILY 04/29/21 04/29/21 History release tiotropium bromide 18 mcg capsule 1 cap INHALATION DAILY 04/29/21 04/29/21 History with inhalation device (Spiriva with HandiHaler) valsartan 320 mg tablet 320 mg PO DAILY 04/29/21 04/29/21 History Allergies Allergy/AdvReac Type Severity Reaction Status Date / Time No Known Allergies Allergy Verified 04/28/21 19:50 Past Med/Surg History Medical History Abnormal posture Ambulatory dysfunction Chronic diastolic CHF (congestive heart failure) Chronic respiratory failure with hypoxia Coronary artery disease Depression Diabetes mellitus, type II Gout History of blood transfusion History of COVID-19 Hyperlipidemia Hypertension Mood disorder Morbid obesity FRANCIS (obstructive sleep apnea) Septic arthritis Ventricular tachycardia Surgical History Cataract extraction status, unspecified eye H/O knee surgery History of incision and drainage Family History Other Throat cancer Social History Smoking Status: Former smoker Tobacco Type: Cigarettes Second Hand Exposure: No; Hx Alcohol Use: No Hx Substance Use: Yes Last Used Substance: Unknown Preferred Language: Mauritian Communication Ability: Effective Meat Inspector Required: No Beliefs That Will Affect Care: None marital status: Single Current Living Situation: Rehab Current Living Situation Comment: [facility] How many Children do You have: 0 Feels Safe at Home: Yes Assistive Devices: Walker Review of Systems See HPI for pertinent positives & negatives. and A total of 10 systems reviewed and were otherwise negative Physical Exam Vital Signs Vital Signs - 24 hr 04/28/21 18:45 04/28/21 19:11 04/28/21 19:29 Temperature 36.4 C L Temperature Source Oral Pulse Rate 82 Pulse Rate [Right Apical] 81 82 Pulse Rate from SpO2 Sensor Pulse Rhythm [Right Apical] Regular Respiratory Rate 16 20 22 Respiratory Effort / Characteristics Non-Labored Spontaneous Short of Breath Non-Labored Respiratory Depth Normal Normal Blood Pressure 199/94 H Blood Pressure [Right Arm] 159/100 H Blood Pressure Mean 129 Blood Pressure Mean [Right Arm] 119 Pulse Oximetry 100 96 100 Oxygen Delivery Method Room Air Room Air Aerosol Mask Sepsis Recent Fever Within 48 Hours No Sepsis New/Unexplained Change in Mental Status No Sepsis Action Taken by Nursing No Action Required 04/28/21 19:45 04/28/21 20:00 04/28/21 21:00 Temperature Temperature Source Pulse Rate Pulse Rate [Right Apical] 88 86 Pulse Rate from SpO2 Sensor Pulse Rhythm [Right Apical] Regular Respiratory Rate 20 16 Respiratory Effort / Characteristics Non-Labored Non-Labored Non-Labored Respiratory Depth Normal Normal Blood Pressure Blood Pressure [Right Arm] 158/88 H 138/102 H Blood Pressure Mean Blood Pressure Mean [Right Arm] 111 114 Pulse Oximetry 100 99 Oxygen Delivery Method Aerosol Mask Room Air Sepsis Recent Fever Within 48 Hours Sepsis New/Unexplained Change in Mental Status Sepsis Action Taken by Nursing 04/28/21 22:00 Temperature Temperature Source Pulse Rate Pulse Rate [Right Apical] Pulse Rate from SpO2 Sensor 97 H Pulse Rhythm [Right Apical] Respiratory Rate Respiratory Effort / Characteristics Non-Labored Respiratory Depth Blood Pressure Blood Pressure [Right Arm] Blood Pressure Mean Blood Pressure Mean [Right Arm] Pulse Oximetry 93 Oxygen Delivery Method Room Air Sepsis Recent Fever Within 48 Hours Sepsis New/Unexplained Change in Mental Status Sepsis Action Taken by Nursing Constitutional: Vital signs reviewed. Eyes: Pupils are equal round reactive to light. Conjunctiva are noninjected. ENT: Pharynx is clear without erythema or exudate. Mucous membranes are moist. Neck supple without meningeal signs. Respiratory: Diffuse expiratory wheezing. Retractions. Breath sounds are equal bilaterally. Cardiovascular: Regular rate and rhythm. No rubs or gallops. GI: Soft, nondistended and nontender. Bowel sounds are present. Musculoskeletal: No lower extremity tenderness. Integumentary: No cyanosis. or jaundice. Neurological: The patient is awake and alert. Seems somewhat confused. No focal deficits. Psychiatric: Normal affect. Not anxious appearing. Course Administered Medications Ipratropium Munden (Ipratropium Munden Neb Soln 0.02% 2.5 Ml Vial) 0.5 mg INH Q4H PRN PRN Reason: sob/wheezing Stop: 05/28/21 22:29 Last Admin: 04/29/21 00:10 Dose: 0.5 mg Documented by: [id number] Levalbuterol HCl (Levalbuterol 1.25mg/0.5ml Neb) 1.25 mg INH Q4H PRN PRN Reason: sob/wheezing Stop: 05/28/21 22:29 Last Admin: 04/29/21 00:10 Dose: 1.25 mg Documented by: [id number] Discontinued Medications Albuterol (Albut/Ipratrop 3mg/0.5mg Neb 3 Ml Vial) 12 ml NEB ONE ONE Stop: 04/28/21 18:30 Last Admin: 04/28/21 19:10 Dose: 12 ml Documented by: [id number] Lactated Ringer's (Lr) 1,000 mls @ 50 mls/hr IV .Q20H STA Stop: 04/29/21 19:15 Last Admin: 04/28/21 23:35 Dose: 50 mls/hr Documented by: [id number] Insulin Glargine (Insulin Glargine Solostar 100 Units/Ml 3 Ml Pen) 20 units SC NOW STA Stop: 04/28/21 22:29 Last Admin: 04/28/21 23:36 Dose: 20 units Documented by: [id number] Cosigned by: [id number] Ioversol (Optiray 320 125ml) 120 ml IV ONCE ONE Stop: 04/29/21 00:48 Last Admin: 04/29/21 00:47 Dose: 120 ml Documented by: [id number] Methylprednisolone (Methylprednisolone 125 Mg/2 Ml Vial) 125 mg IV NOW STA Stop: 04/28/21 18:30 Last Admin: 04/28/21 20:40 Dose: Not Given Documented by: [id number] Methylprednisolone (Methylprednisolone 125 Mg/2 Ml Vial) Confirm Administered Dose 125 mg .ROUTE .STK-MED ONE Stop: 04/28/21 20:35 Last Admin: 04/28/21 20:40 Dose: 125 mg Documented by: [id number] Medical Decision Making Differential Diagnosis Sepsis, COPD exacerbation, hypercapnia, metabolic encephalopathy, pneumonia, COVID-19 Medical Records Attestation: I reviewed the patient's medical records. I did perform a limited focused review of portions of the patient's old chart on the electronic medical record. The patient was admitted to the hospital in February for metabolic encephalopathy and septic arthritis. He also had JARROD and COPD exacerbation. He was noted to be Covid positive at that time but also noted to have had been admitted to the hospital October for COVID-19 infection. Home Medications Current Medication List: was personally reviewed by me Laboratory Data Attestation: I reviewed the patient's lab results. Result diagrams: 04/28/21 19:38 04/28/21 19:38 Lab Results 04/28/21 04/28/21 04/28/21 Range/Units 19:38 19:38 19:38 WBC 11.10 H (4.8-10.8) K/uL RBC 3.60 L (4.7-6.1) M/uL Hgb 9.4 L (14.0-18.0) g/dL Hct 30.4 L (42-52) % MCV 84.4 (80-100) fL MCH 26.1 (25-34) pg MCHC 30.9 L (32-36) g/dL RDW Std Deviation 49.7 H (36.4-46.3) fL RDW Coeff of Xin 16.1 H (11.5-14.5) % Plt Count 324 (130-400) K/uL MPV 9.3 (7.4-10.4) fL Immature Gran % (Auto) 0.4 % Neut % (Auto) 68.6 % Lymph % (Auto) 21.3 % [place] % (Auto) 7.2 % Eos % (Auto) 2.2 % Baso % (Auto) 0.3 % Neut # (Auto) 7.63 H (1.4-6.5) K/uL Lymph # (Auto) 2.36 (1.2-3.4) K/uL [place] # (Auto) 0.80 H (0.11-0.59) K/uL Eos # (Auto) 0.24 (0-0.5) K/uL Baso # (Auto) 0.03 (0-0.2) K/uL Immature Gran # (Auto) 0.04 H (0.00-0.02) K/uL PT 10.3 (9.0-12.0) Seconds INR 1.0 (0.9-1.1) APTT 24.8 (21.0-31.0) Seconds PTT Ratio 0.9 ABG pH 7.45 (7.35-7.45) ABG pCO2 33 L (35-46) mmHg ABG pO2 78 L (80-95) mmHg ABG HCO3 22 (19-24) mmol/L ABG O2 Saturation 96.2 H (90-95) % ABG Base Excess -1.3 (-9-1.8) mEq/L Mg Test Pos (Pos) Barometric Pressure 743.7 mm/Hg Oxygen Given ROOM AIR Sodium (136-145) mmol/L Potassium (3.5-5.1) mmol/L Chloride (98-107) mmol/L Carbon Dioxide (21-32) mmol/L Anion Gap (3-11) BUN (7-18) mg/dl Creatinine (0.6-1.4) mg/dl Est Cr Clr Drug Dosing ml/min Est GFR ( Amer) ml/min Est GFR (Non-Af Amer) ml/min BUN/Creatinine Ratio (10-20) Glucose (70-99) mg/dl Lactate (0.4-2.0) mmol/L Calcium (8.5-10.1) mg/dl Magnesium (1.8-2.4) mg/dl Total Bilirubin (0.2-1) mg/dl AST (15-37) U/L ALT (12-78) U/L Alkaline Phosphatase (45-117) U/L Troponin I (0-0.045) ng/ml Total Protein (6.4-8.2) gm/dl Albumin (3.4-5.0) gm/dl Globulin (2.5-4.0) gm/dl Albumin/Globulin Ratio (0.9-2) SARS-CoV-2 (PCR) (Negative) Influ A Molecular Assay (Negative) Influ B Molecular Assay (Negative) 04/28/21 04/28/21 04/28/21 Range/Units 19:38 19:38 19:56 WBC (4.8-10.8) K/uL RBC (4.7-6.1) M/uL Hgb (14.0-18.0) g/dL Hct (42-52) % MCV (80-100) fL MCH (25-34) pg MCHC (32-36) g/dL RDW Std Deviation (36.4-46.3) fL RDW Coeff of Xin (11.5-14.5) % Plt Count (130-400) K/uL MPV (7.4-10.4) fL Immature Gran % (Auto) % Neut % (Auto) % Lymph % (Auto) % [place] % (Auto) % Eos % (Auto) % Baso % (Auto) % Neut # (Auto) (1.4-6.5) K/uL Lymph # (Auto) (1.2-3.4) K/uL [place] # (Auto) (0.11-0.59) K/uL Eos # (Auto) (0-0.5) K/uL Baso # (Auto) (0-0.2) K/uL Immature Gran # (Auto) (0.00-0.02) K/uL PT (9.0-12.0) Seconds INR (0.9-1.1) APTT (21.0-31.0) Seconds PTT Ratio ABG pH (7.35-7.45) ABG pCO2 (35-46) mmHg ABG pO2 (80-95) mmHg ABG HCO3 (19-24) mmol/L ABG O2 Saturation (90-95) % ABG Base Excess (-9-1.8) mEq/L Mg Test (Pos) Barometric Pressure mm/Hg Oxygen Given Sodium 141 (136-145) mmol/L Potassium 3.5 (3.5-5.1) mmol/L Chloride 109 H (98-107) mmol/L Carbon Dioxide 24 (21-32) mmol/L Anion Gap 9.0 (3-11) BUN 20 H (7-18) mg/dl Creatinine 1.06 (0.6-1.4) mg/dl Est Cr Clr Drug Dosing 109.5 ml/min Est GFR ( Amer) 85.5 ml/min Est GFR (Non-Af Amer) 73.8 ml/min BUN/Creatinine Ratio 19.2 (10-20) Glucose 133 H (70-99) mg/dl Lactate 1.3 (0.4-2.0) mmol/L Calcium 8.9 (8.5-10.1) mg/dl Magnesium 1.9 (1.8-2.4) mg/dl Total Bilirubin 0.2 (0.2-1) mg/dl AST 12 L (15-37) U/L ALT 18 (12-78) U/L Alkaline Phosphatase 158 H (45-117) U/L Troponin I 0.054 H* (0-0.045) ng/ml Total Protein 6.5 (6.4-8.2) gm/dl Albumin 2.5 L (3.4-5.0) gm/dl Globulin 4.0 (2.5-4.0) gm/dl Albumin/Globulin Ratio 0.6 L (0.9-2) SARS-CoV-2 (PCR) (Negative) Influ A Molecular Assay Negative (Negative) Influ B Molecular Assay Negative (Negative) 04/28/21 Range/Units 19:56 WBC (4.8-10.8) K/uL RBC (4.7-6.1) M/uL Hgb (14.0-18.0) g/dL Hct (42-52) % MCV (80-100) fL MCH (25-34) pg MCHC (32-36) g/dL RDW Std Deviation (36.4-46.3) fL RDW Coeff of Xin (11.5-14.5) % Plt Count (130-400) K/uL MPV (7.4-10.4) fL Immature Gran % (Auto) % Neut % (Auto) % Lymph % (Auto) % [place] % (Auto) % Eos % (Auto) % Baso % (Auto) % Neut # (Auto) (1.4-6.5) K/uL Lymph # (Auto) (1.2-3.4) K/uL [place] # (Auto) (0.11-0.59) K/uL Eos # (Auto) (0-0.5) K/uL Baso # (Auto) (0-0.2) K/uL Immature Gran # (Auto) (0.00-0.02) K/uL PT (9.0-12.0) Seconds INR (0.9-1.1) APTT (21.0-31.0) Seconds PTT Ratio ABG pH (7.35-7.45) ABG pCO2 (35-46) mmHg ABG pO2 (80-95) mmHg ABG HCO3 (19-24) mmol/L ABG O2 Saturation (90-95) % ABG Base Excess (-9-1.8) mEq/L Mg Test (Pos) Barometric Pressure mm/Hg Oxygen Given Sodium (136-145) mmol/L Potassium (3.5-5.1) mmol/L Chloride (98-107) mmol/L Carbon Dioxide (21-32) mmol/L Anion Gap (3-11) BUN (7-18) mg/dl Creatinine (0.6-1.4) mg/dl Est Cr Clr Drug Dosing ml/min Est GFR ( Amer) ml/min Est GFR (Non-Af Amer) ml/min BUN/Creatinine Ratio (10-20) Glucose (70-99) mg/dl Lactate (0.4-2.0) mmol/L Calcium (8.5-10.1) mg/dl Magnesium (1.8-2.4) mg/dl Total Bilirubin (0.2-1) mg/dl AST (15-37) U/L ALT (12-78) U/L Alkaline Phosphatase (45-117) U/L Troponin I (0-0.045) ng/ml Total Protein (6.4-8.2) gm/dl Albumin (3.4-5.0) gm/dl Globulin (2.5-4.0) gm/dl Albumin/Globulin Ratio (0.9-2) SARS-CoV-2 (PCR) NEGATIVE (Negative) Influ A Molecular Assay (Negative) Influ B Molecular Assay (Negative) Imaging Data Radiologist's Impression: Chest X-Ray 04/28/21 18:29 XR chest 1V portable HISTORY: 66 years-old Male SEPSIS acute sepsis COMPARISON: Chest radiograph 02/17/2021 TECHNIQUE: Portable AP view of the chest FINDINGS: Cardiac silhouette is enlarged. Right greater than left bilateral airspace opacities with interstitial coarsening appears appears generally stable. Probable trace pleural effusions. No pneumothorax. No acute fracture. IMPRESSION: 1. Right greater than left bilateral mixed interstitial and alveolar opacities appear generally stable from the 02/17/2021 exam. 2. Cardiomegaly. ACT 112: Negative or not required by law. The above report was generated using voice recognition software. It may contain grammatical, syntax or spelling errors. Electronically signed by: Jonathon Oswald M.D. 04/28/2021 7:[address] 04/28/21 22:19 CT head/brain wo con CLINICAL HISTORY: 66 years-old Male with ams. Acutely altered mental status TECHNIQUE: Multiple axial CT images of the head were obtained without contrast. A dose lowering technique was utilized adhering to the principles of ALARA. CT DOSE: 1386.75 mGy.cm COMPARISON: Head CT 02/17/2021 FINDINGS: Mildly motion degraded exam. No acute intracranial hemorrhage, midline shift, intracranial mass, hydrocephalus, territorial ischemia or abnormal extra-axial collection. Mild involutional changes. Cerebral vascular calcifications. The calvarium is intact. Prior bilateral lens repair. The paranasal sinuses, mastoid air cells, and middle ear cavities are clear. IMPRESSION: Motion degraded exam. No acute intracranial abnormality. ACT 112: Negative or not required by law. The above report was generated using voice recognition software. It may contain grammatical, syntax or spelling errors. Electronically signed by: Jonathon Oswald M.D. 04/28/2021 10:59 PM ECG Data Attestation: I personally reviewed and interpreted this ECG as follows: Indication: + SOB/dyspnea Rate (beats per minute): 80 ECG Intervals/blocks: + Left anterior fascicular block and + Right Bundle branch block ECG ST segments: + T-wave inversions ECG Findings: no PVCs Comparison ECG Date: from (February 17, 2021) Change: no significant change MDM Narrative I did evaluate the patient as noted above. The patient was brought in by EMS. He is a rather poor historian but he does complain of intermittent fever, malaise and shortness of breath. He does have wheezing on examination and has a history of COPD. I did treat the patient with an hour-long DuoNeb. He does have a prior history of COVID-19 infection. IV access was established. He was given Solu-Medrol IV. I did place an order for continuous cardiac monitoring. The monitor showed normal sinus rhythm at a rate of 80 bpm. I did order and personally review the patient's 12-lead EKG as described above. He has no acute ischemic changes. He does have a bifascicular block which is old. I did order and personally reviewed the images of the patient's chest x-ray as described above. He has bilateral infiltrates which are stable from his last chest x-ray from February. I did order and review the patient's blood work as noted in the electronic medical record. His white count is 11. Hemoglobin is 9.4. Platelet count is 324. He does have a left shift. Electrolytes are unremarkable other than a chloride of 109. ABG shows a PaO2 of 78 on room air. pH is 7.45. PaCO2 is 33. Troponin is slightly elevated at 0.05. Flu and Covid testing are both negative. The patient was reevaluated. He still has wheezing on exam. He denies any chest pain. He will be hospitalized for further care and evaluation. I did discuss case with the hospitalist and piano case and bench assembler. Impression & Plan Acute exacerbation of chronic obstructive pulmonary disease, Elevated troponin, Chronic anemia, Abnormal chest x-ray Discharge Plan Visit Data Chief Complaint: Illness Stated Complaint: Dizzy ED Provider: Valeriano Hassan Discharge Problem: Acute exacerbation of chronic obstructive pulmonary disease, Elevated troponin, Chronic anemia, Abnormal chest x-ray Patient Disposition: Admitted As Inpatient Discharge Instructions Interventions: ED Discharge Assessment Last Done: 04/28/21 23:43
--- NOTE | 2021-04-28 19:21 | XRay Report ---
XR chest 1V portable HISTORY: 66 years-old Male SEPSIS acute sepsis COMPARISON: Chest radiograph 02/17/2021 TECHNIQUE: Portable AP view of the chest FINDINGS: Cardiac silhouette is enlarged. Right greater than left bilateral airspace opacities with interstitia l coarsening appears appears generally stable. Probable trace pleural effusions. No pneumothorax. No acute fracture. IMPRESSION: 1. Right greater than left bilateral mixed interstitial and alveolar opacities appear generally stabl e from the 02/17/2021 exam. 2. Cardiomegaly. ACT 112: Negative or not required by law. The above report was generated using voice recognition software. It may contain grammatical, syntax o r spelling errors. Electronically signed by: Jonathon Oswald M.D. 04/28/2021 7:20 PM
[2021-04-28 20:02] LABS: Basophils # (auto) 0.03 K/uL (0-0.2); Basophils % (auto) 0.3 %; Eosinophils # (auto) 0.24 K/uL (0-0.5); Eosinophils % (auto) 2.2 %; Hematocrit (blood only) 30.4 % (42-52); Hemoglobin 9.4 g/dL (14.0-18.0); Immature Granulocytes # (auto) 0.04 K/uL (0.00-0.02); Immature Granulocytes % (auto) 0.4 %; Lymphocytes # (auto) 2.36 K/uL (1.2-3.4); Lymphocytes % (auto) 21.3 %; Mean Corpuscular Hemoglobin 26.1 pg (25-34); Mean Corpuscular Hgb Conc 30.9 g/dL (32-36); Mean Corpuscular Volume 84.4 fL (80-100); Mean Platelet Volume 9.3 fL (7.4-10.4); Monocytes % (auto) 7.2 %; Neutrophils # (auto) 7.63 K/uL (1.4-6.5); Neutrophils % (auto) 68.6 %; Platelet Count 324 K/uL (130-400); RDW Coefficient of Variation 16.1 % (11.5-14.5); RDW Standard Deviation 49.7 fL (36.4-46.3)
[2021-04-28 20:19] LABS: Albumin Level 2.5 gm/dl (3.4-5.0); BUN Creatinine Ratio 19.2 (10-20); Calcium 8.9 mg/dl (8.5-10.1); Creatinine Clr Calc Pharmacy 109.5 ml/min; Est GFR (African American) 85.5 ml/min; Est GFR (Non-African American) 73.8 ml/min; Magnesium 1.9 mg/dl (1.8-2.4); Potassium 3.5 mmol/L (3.5-5.1)
[2021-04-28 20:22] LABS: Partial Thromboplastin Ratio 0.9; Partial Thromboplastin Time 24.8 Seconds (21.0-31.0); Prothrombin Time 10.3 Seconds (9.0-12.0)
[2021-04-28 20:25] LABS: Albumin Globulin Ratio 0.6 (0.9-2); Bilirubin,Total 0.2 mg/dl (0.2-1); Total Protein 6.5 gm/dl (6.4-8.2); Troponin I 0.054 ng/ml (0-0.045)
[2021-04-28] MEDS ORDERED: methylPREDNISolone 125 MG/2 ML VIAL ONE (20:34)
[2021-04-28 20:38] LABS: Influenza A virus by PCR Negative (Negative); Influenza B virus by PCR Negative (Negative)
[2021-04-28 21:02] LABS: Base Excess ABG -1.3 mEq/L (-9-1.8); HCO3 ABG 22 mmol/L (19-24); Oxygen Saturation ABG 96.2 % (90-95); PCO2 ABG 33 mmHg (35-46); PO2 ABG 78 mmHg (80-95); pH ABG 7.45 (7.35-7.45)
[2021-04-28 21:07] LABS: Allen Test Pos (Pos)
--- NOTE | 2021-04-28 21:28 | History & Physical Report ---
Date of Service April 28, 2021 Assessment & Plan (1) Dizziness: (2) Elevated troponin: (3) CKD (chronic kidney disease) stage 3, GFR 30-59 ml/min: (4) Diabetes mellitus, type II: (5) COPD (chronic obstructive pulmonary disease): (6) FRANCIS (obstructive sleep apnea): (7) Hypertension: (8) Hyperlipidemia: (9) Morbid obesity: Plan: HPI, PMH, PE completed by Kayla Huertas PA-C. Assessment and plan per Dr. Melissa History of Present Illness Chief Complaint: Dizziness Primary Care Provider: Comfort Almanzar PA-C Patient is 66-year-old male with PMH COVID-19 in 10/2020, DM II, CKD III, chronic respiratory failure on 2L O2, COPD, CHF with preserved EF, HTN, HLD, FRANCIS intolerant to CPAP, morbid obesity, anemia presented to ER with c/odizziness x 1 week. Very difficult to obtain history from patient. When asked questions patient is very vague or answers inappropriately and then laughs. Difficult to discern if patient is confused or patient is at his baseline or patient is trying to crack jokes. He is unwilling to answer majority of history questions. To this provider he denies known fever or chills. He reports he has been feeling intermittently dizzy which he describes as feeling "not right". He reports he thinks he might be feeling lightheaded. Patient denies any cough, chest pain, shortness of breath to this provider. He reports legs seem a little more swollen. Denies N/V/D/C, syncope, falls, vision changes, orthopnea, palpitations, sore throat, choking, otalgia, rhinorrhea, abdominal pain, extremity weakness, urinary symptoms. In ER pt afebrile, P: 82, BP: 199/94, 97% on room air. WBC: 11, Hgb: 9.4, Cr: 1.0, lactate WNL, troponin: 0.05, negative COVID-19 PCR. EKG: Sinus rhythm, RBBB, left anterior fascicular block. CXR: Right greater than left bilateral airspace opacities with interstitial coarsening appears stable from prior imaging. Allergies Allergy/AdvReac Type Severity Reaction Status Date / Time No Known Allergies Allergy Verified 04/28/21 19:50 Home Medications Medication Instructions Recorded Confirmed Type acetaminophen 325 mg tablet 650 mg PO Q4 PRN 11/29/20 04/28/21 History (Tylenol) atorvastatin 40 mg tablet 40 mg PO HS 11/29/20 04/29/21 History docusate sodium 100 mg capsule 100 mg PO BID PRN 11/29/20 04/28/21 History (Stool Softener) montelukast 10 mg tablet 10 mg PO HS 11/29/20 04/29/21 History (Singulair) polyethylene glycol 3350 17 gram 17 g PO DAILY PRN 11/29/20 04/28/21 History oral powder packet (Miralax) sertraline 100 mg tablet (Zoloft) 100 mg PO DAILY 11/29/20 04/29/21 History tamsulosin 0.4 mg capsule (Flomax) 0.8 mg PO DAILY 11/29/20 04/29/21 History umeclidinium 62.5 mcg-vilanterol 1 inh INHALATION DAILY 11/29/20 04/29/21 History 25 mcg/actuation powdr for inhalation (Anoro Ellipta) sennosides 8.6 mg capsule (senna) 8.6 mg PO DAILY PRN 02/17/21 04/28/21 History oxycodone 5 mg tablet (Roxicodone) 5 mg PO Q12H PRN 5 Days #10 tab 02/23/21 04/28/21 Rx bumetanide 1 mg tablet 1 mg PO DAILY 04/28/21 04/29/21 History albuterol sulfate 90 mcg/actuation 2 puff INHALATION QID PRN 04/29/21 04/29/21 History aerosol inhaler (Ventolin HFA) amlodipine 5 mg tablet 5 mg PO DAILY 04/29/21 04/29/21 History carvedilol 12.5 mg tablet 12.5 mg PO BID 04/29/21 04/29/21 History duloxetine 60 mg capsule,delayed 60 mg PO DAILY 04/29/21 04/29/21 History release gabapentin 100 mg capsule 200 mg PO TID 04/29/21 04/29/21 History pantoprazole 40 mg tablet,delayed 40 mg PO DAILY 04/29/21 04/29/21 History release potassium chloride 20 mEq 20 meq PO DAILY 04/29/21 04/29/21 History tablet,extended release(part/cryst) Past Med/Surg History Medical History Abnormal posture Ambulatory dysfunction Chronic diastolic CHF (congestive heart failure) Chronic respiratory failure with hypoxia Coronary artery disease Depression Diabetes mellitus, type II Gout History of blood transfusion History of COVID-19 Hyperlipidemia Hypertension Mood disorder Morbid obesity FRANCIS (obstructive sleep apnea) Septic arthritis Ventricular tachycardia Surgical History Cataract extraction status, unspecified eye H/O knee surgery History of incision and drainage Family History Other Throat cancer Social History Smoking Status: Former smoker Tobacco Type: Cigarettes Second Hand Exposure: No; Hx Alcohol Use: No Hx Substance Use: Yes Last Used Substance: Unknown Preferred Language: Taiwanese Communication Ability: Effective Phone Manager Required: No Beliefs That Will Affect Care: None marital status: Single Current Living Situation: Rehab Current Living Situation Comment: [facility] How many Children do You have: 0 Feels Safe at Home: Yes Assistive Devices: Walker Review of Systems Review of Systems: All systems reviewed & are unremarkable except as noted in HPI & below Physical Exam Physical Exam: General: no distress, WDWN Head: normocephalic, atraumatic Eyes: PERRL, EOM's intact, conjunctiva non-injected, anicteric ENT: normal inspection external ears, nose, mucous membranes moist Neck: supple, trachea midline Lungs: clear, no respiratory distress, no wheezing/rhonchi/rales CV: RRR, no murmur, 1-2+ pretibial edema Abd: +obese, normal BS, soft, non-tender Ext: no cyanosis, no calf tenderness, left dorsal aspect toes with eschar Neuro: Alert. Oriented to year. When asked month pt responds "no". He initially will not state hospital and then reports [place]. Frequently laughs after not answering or answering questions incorrectly. Hard to assess if patient is confused or purposely answering incorrectly, no focal deficits noted Skin: warm, dry Results & Data Results & Data ([facility]) Vital Signs (Past 12 Hours) Vital Signs Temp Pulse Pulse Resp BP BP Pulse Ox 04/28/21 19:45 88 20 158/88 H 100 04/28/21 19:29 82 22 159/100 H 100 04/28/21 19:11 81 20 96 04/28/21 18:45 36.4 C L 82 16 199/94 H 100 Laboratory Results Short CBC 04/28/21 Range/Units 19:38 WBC 11.10 H (4.8-10.8) K/uL Hgb 9.4 L (14.0-18.0) g/dL Hct 30.4 L (42-52) % Plt Count 324 (130-400) K/uL BMP 04/28/21 19:38 Sodium 141 Potassium 3.5 Chloride 109 H Carbon Dioxide 24 BUN 20 H Creatinine 1.06 Glucose 133 H Calcium 8.9 Cardiac Enzymes 04/28/21 Range/Units 19:38 Troponin I 0.054 H* (0-0.045) ng/ml Liver Function 04/28/21 Range/Units 19:38 Total Bilirubin 0.2 (0.2-1) mg/dl AST 12 L (15-37) U/L ALT 18 (12-78) U/L Alkaline Phosphatase 158 H (45-117) U/L Albumin 2.5 L (3.4-5.0) gm/dl Diagnostic Findings Chest X-Ray 04/28/21 18:29 XR chest 1V portable HISTORY: 66 years-old Male SEPSIS acute sepsis COMPARISON: Chest radiograph 02/17/2021 TECHNIQUE: Portable AP view of the chest FINDINGS: Cardiac silhouette is enlarged. Right greater than left bilateral airspace opacities with interstitial coarsening appears appears generally stable. Probable trace pleural effusions. No pneumothorax. No acute fracture. IMPRESSION: 1. Right greater than left bilateral mixed interstitial and alveolar opacities appear generally stable from the 02/17/2021 exam. 2. Cardiomegaly. ACT 112: Negative or not required by law. The above report was generated using voice recognition software. It may contain grammatical, syntax or spelling errors. Electronically signed by: Jonathon Oswald M.D. 04/28/2021 7:20 PM Supervising Physician Co-Signing Physician Notes IM ATTENDING : Patient seen and examined. History obtained from patient, family, and records. Preceding documentation by Ms. Kayla Huertas PA-C reviewed. In addition, patient discharged home last week of March 2021 as per sister after prolonged confinements at various healthcare facilities for COVID-19 pneumonia, CHF, and rehabilitation. Patient has not had follow-up visit with PCP since discharge home. Wounds on toes of the left foot from stumbling at home as per patient. CT head initial read: Motion degraded exam. No acute intracranial abnormality. CT chest initial read: Normal CTAchest examination, without a demonstrated pulmonaryembolismor arterial dissection. Calcified coronaryarteries. Bilateral airspace disease FINAL ASSESSMENT AND PLAN as follows : Dizziness possibly from uncontrolled hypertension ? Medication compliance, possible functional disability Troponin elevation secondary to above Chronic diastolic heart failure (EF 60 to 65%, TTE 2020), equivocal volume status Baseline congestion on CXR with some wheezing patient however seems intravascularly dry COPD, not in acute exacerbation Patient given Solu-Medrol and neb treatment upon arrival at the ER. Cellulitis of multiple toes on left foot, potential wound infection, secondary to trauma Rule out bony injury possible sepsis DM2, insulin requiring, reasonable control as of recent hemoglobin A1c of 7.08 November 2020 No home insulin on patient home med list. No follow-up with PCP since discharge from [facility] 3 weeks ago. Chronic anemia hemoglobin at baseline Past tobacco abuse Med telemetry Facilitate home BP meds Follow troponin, TTE if with progression Lasix albumin 1 dose Nebs as needed for wheezing Plain x-ray of the left foot, Doxycycline for cellulitis of the toes of the left foot Basal insulin, ISS BG goal 1 10-1 40, carb count coverage, update hemoglobin A1c PT OT eval Social service RE discharge planning DVT prophylaxis per Lovenox subcu Full code Patient sister requesting updates from providers. Bernice Jodilouis, contact #[phone]. Text document was generated using [employer] voice recognition software. It may contain grammatical or spelling errors. Kindly contact undersigned for clarification of any documentation item in question.
[2021-04-28] MEDS ORDERED: INSULIN GLARGINE SOLOSTAR 100 UNITS/ML 3 ML PEN SC STA (22:28)
[2021-04-28] MEDS ORDERED: XOPENEX/ATROVENT 1.25mg/0.5MG NEB COMBO NEB PRN (22:30)
--- NOTE | 2021-04-28 23:00 | CT Scan Report ---
CT head/brain wo con CLINICAL HISTORY: 66 years-old Male with ams. Acutely altered mental status TECHNIQUE: Multiple axial CT images of the head were obtained without contrast. A dose lowering tech nique was utilized adhering to the principles of ALARA. CT DOSE: 1386.75 mGy.cm COMPARISON: Head CT 02/17/2021 FINDINGS: Mildly motion degraded exam. No acute intracranial hemorrhage, midline shift, intracranial mass, hydr ocephalus, territorial ischemia or abnormal extra-axial collection. Mild involutional changes. Cerebr al vascular calcifications. The calvarium is intact. Prior bilateral lens repair. The paranasal sinus es, mastoid air cells, and middle ear cavities are clear. IMPRESSION: Motion degraded exam. No acute intracranial abnormality. ACT 112: Negative or not required by law. The above report was generated using voice recognition software. It may contain grammatical, syntax o r spelling errors. Electronically signed by: Jonathon Oswald M.D. 04/28/2021 10:59 PM
[2021-04-28] MEDS ORDERED: LACTATED RINGER'S 1,000 ML IV STA (23:16)
[2021-04-28 23:43] LABS: Troponin I 0.05 ng/ml (0-0.045)
[2021-04-28] MEDS ORDERED: ACETAMINOPHEN 325 MG TAB PO PRN (23:45)
[2021-04-28] MEDS ORDERED: CARBOHYDRATES FOR HYPOGLYCEMIA PO PRN (23:45)
[2021-04-28] MEDS ORDERED: DOCUSATE SODIUM/SENNA 50/8.6MG TAB PO PRN (23:45)
[2021-04-28] MEDS ORDERED: carvediloL 12.5 MG TAB PO SCH (23:45)
[2021-04-28] MEDS ORDERED: GLUCOSE 10 TABS/TUBE PO PRN (23:45)
[2021-04-28] MEDS ORDERED: GLUCAGON FOR INJ 1 MG VIAL SQ PRN (23:45)
[2021-04-28] MEDS ORDERED: DEXTROSE 50% 50 ML SYRINGE IV PRN (23:45)
[2021-04-28] MEDS ORDERED: GLUCOSE 40% GEL 15 GM TUBE PO PRN (23:45)
[2021-04-28] MEDS ORDERED: INSULIN ASPART 100 UNITS/ML 3 ML PEN SC SCH (23:45)
[2021-04-28] MEDS ORDERED: DOCUSATE SODIUM 100 MG CAP PO PRN (23:45)
[2021-04-28] MEDS ORDERED: POLYETHYLENE (MIRALAX) 17 GM PACK PO PRN (23:45)
[2021-04-29] MEDS ORDERED: OLANZapine 10 MG/2.1 ML SDV IM PRN ×2 (00:06→02:27)
[2021-04-29] MEDS: LEVALBUTEROL 1.25MG/0.5ML NEB INH PRN ×2 (00:10→18:19)
[2021-04-29] MEDS: IPRATROPIUM BROMIDE NEB SOLN 0.02% 2.5 ML VIAL INH PRN ×2 (00:10→18:19)
[2021-04-29 00:15] LABS: Lyme Ab IgG w/WB Rflx Negative (Negative); Lyme Ab IgM w/WB Rflx Negative (Negative)
[2021-04-29] MEDS ORDERED: OPTIRAY 320 125ml IV ONE (00:47)
[2021-04-29] MEDS ORDERED: FUROSEMIDE 40 MG/4 ML VIAL IV STA (01:41)
[2021-04-29] MEDS ORDERED: ALBUMIN 25% 12.5 GM/50 ML VIAL IV STA (01:42)
[2021-04-29] MEDS: MAGNESIUM SULFATE / D5W 1 GM/100 ML BAG IV SCH ×2 (01:59→03:51)
[2021-04-29 02:16] LABS: Appearance Urine Clear (Clear); Bacteria Urine Automated Negative (Negative); Bilirubin Urine Negative (Negative); Blood Urine Negative (Negative); Color Urine Yellow; Glucose Urine UA Negative (Negative); Ketones Urine Negative (Negative); Leukocyte Esterase Urine Negative (Negative); Nitrite Urine Negative (Negative); Protein Urine 3+ (Negative); RBC Urine Automated 0-4 /hpf (0-4); Specific Gravity Urine 1.019 (1.000-1.030); Urobilinogen Urine Negative (Negative)
[2021-04-29] MEDS ORDERED: OLANZapine 10 MG/2.1 ML SDV IM STA (02:25)
[2021-04-29 02:28] LABS: Calcium Oxalate Crystals Urine Present (None Prsent)
[2021-04-29 02:36] LABS: Amphetamines+Metham, Urine Neg (Neg); Barbiturates, Urine Neg (Neg); Benzodiazepine, Urine Neg (Neg); Cocaine, Urine Neg (Neg); MDMA (Ecstacy), Urine Neg (Neg); Methadone, Urine Neg (Neg); Opiate, Urine Neg (Neg); Phencyclidine, Urine Neg (Neg)
[2021-04-29] MEDS ORDERED: METOPROLOL TARTRATE 1 MG/ML VIAL IV STA (02:56)
[2021-04-29] MEDS: DOXYCYCLINE HYCLATE 100 MG CAP PO SCH ×2 (04:48→20:55)
[2021-04-29] MEDS ORDERED: amLODIPine BESYLATE 5 MG TAB PO SCH ×2 (05:50→09:00)
[2021-04-29] MEDS: INSULIN GLARGINE SOLOSTAR 100 UNITS/ML 3 ML PEN SQ SCH ×2 (06:17→22:01)
[2021-04-29] MEDS: carvediloL 12.5 MG TAB PO SCH ×2 (06:17→18:10)
[2021-04-29 06:19] LABS: Basophils # (auto) 0.01 K/uL (0-0.2); Basophils % (auto) 0.1 %; Eosinophils # (auto) 0.01 K/uL (0-0.5); Eosinophils % (auto) 0.1 %; Hematocrit (blood only) 31.9 % (42-52); Immature Granulocytes # (auto) 0.11 K/uL (0.00-0.02); Immature Granulocytes % (auto) 0.9 %; Lymphocytes # (auto) 0.61 K/uL (1.2-3.4); Lymphocytes % (auto) 5.1 %; Mean Corpuscular Hemoglobin 26.3 pg (25-34); Mean Corpuscular Hgb Conc 31.3 g/dL (32-36); Mean Corpuscular Volume 83.9 fL (80-100); Mean Platelet Volume 9.6 fL (7.4-10.4); Monocytes % (auto) 0.8 %; Neutrophils # (auto) 11.13 K/uL (1.4-6.5); Platelet Count 346 K/uL (130-400); RDW Coefficient of Variation 16.3 % (11.5-14.5); RDW Standard Deviation 49.8 fL (36.4-46.3); White Blood Count 11.97 K/uL (4.8-10.8)
[2021-04-29] MEDS: INSULIN ASPART 100 UNITS/ML 3 ML PEN SC SCH ×5 (06:21→22:00)
[2021-04-29 07:13] LABS: BUN Creatinine Ratio 16.7 (10-20); Calcium 9.2 mg/dl (8.5-10.1); Creatinine Clr Calc Pharmacy 86.6 ml/min; Est GFR (African American) 64.4 ml/min; Est GFR (Non-African American) 55.6 ml/min; Potassium 4.3 mmol/L (3.5-5.1)
[2021-04-29 07:28] LABS: Beta-Hydroxybutyrate 1.15 mg/dl (0.2-2.81)
[2021-04-29 07:49] LABS: Estimated Average Glucose 151 mg/dl; Hemoglobin A1C 6.9 % (4.5-5.6)
--- NOTE | 2021-04-29 08:40 | XRay Report ---
XR foot LT 2V CLINICAL HISTORY: toe wounds TECHNIQUE: 2 views of the left foot were obtained. Comparison: None available at the time of this dictation. FINDINGS: Limited evaluation due to patient positioning, the distal digits are not well seen on the lateral deondre ge.. Diffuse osteopenia is seen. Within these limits, no definite evidence of bony erosion is seen th ere is a questionable region of lucency in the great toe which may be chronic. IMPRESSION: No definite evidence of bony erosion to suggest osteomyelitis. There is a region of focal osteopenia in the distal great toe. If there is concern for osteomyelitis at the first digit, dedicated first di git radiographs with multiple views can be obtained. MRI is also a more sensitive modality. ACT 112: Negative or not required by law. Electronically signed by: Kavon Mcdaniel M.D. 04/29/2021 8:39 AM
[2021-04-29] MEDS ORDERED: INSULIN GLARGINE SOLOSTAR 100 UNITS/ML 3 ML PEN SQ SCH (09:00)
--- NOTE | 2021-04-29 09:07 | CT Scan Report ---
CT angio chest PE protocol CLINICAL HISTORY: sob TECHNIQUE: Multidetector row helical CT of the chest was performed. Coronal and sagittal reformations were obtained. Automated dose lowering techniques and/or adjustment according to patient size were u tilized for this exam. Comparison: Comparison is made to CT chest 12/08/2020 FINDINGS: Exam is limited by patient motion. Lungs and pleura: Bilateral groundglass and reticular opacities are seen Heart and pericardium: There is cardiomegaly without evidence of pericardial effusion. Vessels: No evidence of pulmonary embolism. Mediastinum and destiny: Unremarkable. Chest wall and lower neck: Unremarkable. Abdomen: A hiatal hernia is seen. Bones: Unremarkable. IMPRESSION: 1. No evidence of pulmonary embolism. 2. Multifocal groundglass and reticular opacities are seen which may reflect chronic changes with العلي perimposed infectious/inflammatory process. ACT 112: Negative or not required by law. Electronically signed by: Kavon Mcdaniel M.D. 04/29/2021 9:06 AM
[2021-04-29] MEDS: FERROUS SULFATE 325 MG TAB PO SCH ×2 (09:36→18:09)
[2021-04-29] MEDS: ENOXAPARIN INJ 40 MG/0.4 ML SYR SQ SCH (09:36)
[2021-04-29] MEDS: DULoxetine HCL 60 MG CAP PO SCH (09:36)
[2021-04-29] MEDS: TAMSULOSIN HCL 0.4 MG CAP PO SCH (09:37)
[2021-04-29] MEDS: PANTOprazole 40 MG TAB PO SCH (09:37)
[2021-04-29] MEDS: UMECLIDINIUM/VILANTEROL 62.5/25MCG 7 PUFFS/INHALER INH SCH (09:37)
[2021-04-29] MEDS: SERTRALINE HCL 100 MG TABLET PO SCH (09:37)
[2021-04-29] MEDS: ADVANCED PROBIOTIC 1250 MG CAPSULE PO SCH (09:37)
[2021-04-29] MEDS: oxyCODONE HCL IR 5 MG TAB (IMMEDIATE RELEASE) PO PRN (18:12)
--- NOTE | 2021-04-29 19:45 | Hospitalist Progress Note ---
Date of Service April 29, 2021 Assessment & Plan (1) Dizziness: Plan: Present on admission which complained of dizziness Possible related to medication versus elevated BP CT had showed no acute intracranial abnormality. PT OT eval Fall precaution Clinically improved Possible Cellulitis Xray of left foot showed no definite evidence of bony erosion to suggest osteomyelitis. There is a region of focal osteopenia in the distal great toe. Continue doxycycline twice daily Shortness of breath CTA chest showed no evidence of PE. Multifocal groundglass and reticular opacities COVID-19 negative proBNP elevated abobe 12K WBC mildly elevated We will continue doxycycline that was started for possible cellulitis Continue Bumex daily Saturating well on room air Continue monitor closely Elevated troponin Possible related to hypoxia Troponin 0.054 on admission Elevated BNP on admission Denies any chest pain Continue statin and carvedilol Chronic diastolic CHF (congestive heart failure): CHF with preserved EF Continue Bumex home dose We will monitor closely for sign of volume overload COPD (chronic obstructive pulmonary disease): Chronic respiratory failure. On 2L oxygen (patient was seen in the ER on room air) No signs exacerbation Continue home inhalers Diabetes mellitus, type II: Most recent hemoglobin A1c 6.9 on 04/29/21 Continue home Lantus NovoLog sliding scale per protocol Coronary artery disease: Continue carvedilol, atorvastatin Anemia: Hgb 9.4 Last admission hemoglobin back in December dropped received 1 unit PRBCs on 01/01/2021 No signs of active bleeding. Denies melena, hematochezia Continue iron supplement Hypertension: BP elevated Not sure if patient compliant with his medication Continue carvedilol, amlodipine with holding parameters Hyperlipidemia: Continue atorvastatin Depression: Continue duloxetine, sertraline FRANCIS (obstructive sleep apnea): Noncompliant with CPAP DVT Prophylaxis SCDs CODE STATUS Full code Admission and Anticipated Discharge Date Admission Date: April 28, 2021 Subjective Patient was seen and evaluated for follow-up of dizziness lying in bed with no acute distress Patient answering question by being sarcastic not sure if he is confused or trying to be funny He said that he feels okay Denies any chest pain palpitation, dizziness, shortness of breath. Review of Systems Review of Systems: All systems reviewed & are unremarkable except as noted in Subjective Physical Exam Physical Exam: General- No acute distress Head- atraumatic Eyes- PERRL, EOMI, ENT- oropharynx clear Neck- supple, no JVD Lungs- clear to auscultation Heart- regular rhythm; no murmur Abdomen- normal bowel sounds, soft, nontender Extremities- no calf tenderness, +edema Neuro- alert, oriented; PERRL, EOMI; no facial palsy; no dysarthria Skin- warm & dry Results & Data Results & Data ([facility]) Vital Signs (Past 12 Hours) Vital Signs Temp Pulse Resp BP Pulse Ox Pulse Ox 04/29/21 18:18 80 20 92 04/29/21 14:00 85 20 165/80 H 95 04/29/21 11:20 95 04/29/21 09:09 36.7 C 89 22 172/63 H 98
[2021-04-29] MEDS: MONTELUKAST SODIUM 10 MG TABLET PO SCH (20:55)
[2021-04-29] MEDS: ATORVASTATIN 40 MG TAB PO SCH (20:55)
[2021-04-29] MEDS ORDERED: INSULIN GLARGINE SOLOSTAR 100 UNITS/ML 3 ML PEN SC STA (23:09)
[2021-04-29] MEDS ORDERED: amLODIPine BESYLATE 5 MG TAB PO STA (23:15)
[2021-04-30] MEDS: INSULIN ASPART 100 UNITS/ML 3 ML PEN SC SCH ×4 (08:58→20:59)
[2021-04-30] MEDS: amLODIPine BESYLATE 5 MG TAB PO SCH (09:23)
[2021-04-30] MEDS: ADVANCED PROBIOTIC 1250 MG CAPSULE PO SCH (09:23)
[2021-04-30] MEDS: carvediloL 12.5 MG TAB PO SCH ×2 (09:23→18:11)
[2021-04-30] MEDS: SERTRALINE HCL 100 MG TABLET PO SCH (09:23)
[2021-04-30] MEDS: PANTOprazole 40 MG TAB PO SCH (09:24)
[2021-04-30] MEDS: TAMSULOSIN HCL 0.4 MG CAP PO SCH (09:24)
[2021-04-30] MEDS: FERROUS SULFATE 325 MG TAB PO SCH ×2 (09:24→21:04)
[2021-04-30] MEDS: DOXYCYCLINE HYCLATE 100 MG CAP PO SCH ×2 (09:25→21:03)
[2021-04-30] MEDS: ENOXAPARIN INJ 40 MG/0.4 ML SYR SQ SCH (09:30)
[2021-04-30] MEDS: INSULIN GLARGINE SOLOSTAR 100 UNITS/ML 3 ML PEN SQ SCH ×2 (09:31→21:04)
[2021-04-30] MEDS: UMECLIDINIUM/VILANTEROL 62.5/25MCG 7 PUFFS/INHALER INH SCH (09:38)
[2021-04-30] MEDS: DULoxetine HCL 60 MG CAP PO SCH (09:39)
--- NOTE | 2021-04-30 09:42 | Electrocardiogram Report ---
Test Reason : Blood Pressure : / mmHG Vent. Rate : 080 BPM Atrial Rate : 080 BPM P-R Int : 160 ms QRS Dur : 142 ms QT Int : 452 ms P-R-T Axes : 044 -58 031 degrees QTc Int : 521 ms Sinus rhythm with Premature atrial complexes Right bundle branch block Left anterior fascicular block Bifascicular block Abnormal ECG When compared with ECG of 17-FEB-2021 10:41, Premature atrial complexes are now Present Nonspecific T wave abnormality has replaced inverted T waves in Inferior leads Confirmed by Tio Chua ([id number]) on 04/30/2021 9:42:01 AM Referred By: REFERRED SELF Confirmed By:Tio Chua
[2021-04-30] MEDS: MONTELUKAST SODIUM 10 MG TABLET PO SCH (21:03)
[2021-04-30] MEDS: ATORVASTATIN 40 MG TAB PO SCH (21:03)
[2021-04-30] MEDS ORDERED: ALBUT/IPRATROP 3MG/0.5MG NEB 3 ML VIAL NEB STA (21:05)
[2021-04-30] MEDS ORDERED: CHLORASEPTIC 1.4% SOLN 180 ML BTL MT PRN (21:17)
[2021-04-30] MEDS ORDERED: FUROSEMIDE 40 MG/4 ML VIAL IV ONE (21:30)
[2021-04-30] MEDS ORDERED: ALBUMIN 25% 12.5 GM/50 ML VIAL IV ONE (21:30)
--- NOTE | 2021-04-30 23:57 | Hospitalist Progress Note ---
Date of Service April 30, 2021 Assessment & Plan (1) Dizziness: Plan: Present on admission which complained of dizziness Possible related to medication versus elevated BP CT had showed no acute intracranial abnormality. PT OT eval Fall precaution Clinically improved Possible Cellulitis Xray of left foot showed no definite evidence of bony erosion to suggest osteomyelitis. There is a region of focal osteopenia in the distal great toe. Continue doxycycline twice daily Shortness of breath CTA chest showed no evidence of PE. Multifocal groundglass and reticular opacities COVID-19 negative proBNP elevated abobe 12K WBC mildly elevated We will continue doxycycline that was started for possible cellulitis Continue Bumex daily Saturating well on room air Continue monitor closely Elevated troponin Possible related to hypoxia Troponin 0.054 on admission Elevated BNP on admission Denies any chest pain Continue statin and carvedilol Chronic diastolic CHF (congestive heart failure): CHF with preserved EF Continue Bumex home dose We will monitor closely for sign of volume overload COPD (chronic obstructive pulmonary disease): Chronic respiratory failure. On 2L oxygen (patient was seen in the ER on room air) No signs exacerbation Continue home inhalers Diabetes mellitus, type II: Most recent hemoglobin A1c 6.9 on 04/29/21 Continue home Lantus NovoLog sliding scale per protocol Coronary artery disease: Continue carvedilol, atorvastatin Anemia: Hgb 9.4 Last admission hemoglobin back in December dropped received 1 unit PRBCs on 01/01/2021 No signs of active bleeding. Denies melena, hematochezia Continue iron supplement Hypertension: BP elevated Not sure if patient compliant with his medication Continue carvedilol, amlodipine with holding parameters Hyperlipidemia: Continue atorvastatin Depression: Continue duloxetine, sertraline FRANCIS (obstructive sleep apnea): Noncompliant with CPAP DVT Prophylaxis SCDs CODE STATUS Full code Admission and Anticipated Discharge Date Admission Date: April 28, 2021 Subjective Patient was seen and evaluated for follow-up. lying in bed with no acute distress Continue to be sarcastic. Case management said she spoke to his sister that said that is his normal behavior He said that he feels okay and watching football game on the TV Denies any chest pain palpitation, dizziness, shortness of breath. Review of Systems Review of Systems: All systems reviewed & are unremarkable except as noted in Subjective Physical Exam Physical Exam: General- No acute distress Head- atraumatic Eyes- PERRL, EOMI, ENT- oropharynx clear Neck- supple, no JVD Lungs- clear to auscultation Heart- regular rhythm; no murmur Abdomen- normal bowel sounds, soft, nontender Extremities- no calf tenderness, +edema Neuro- alert, oriented; PERRL, EOMI; no facial palsy; no dysarthria Skin- warm & dry Results & Data Results & Data ([facility]) Vital Signs (Past 12 Hours) Vital Signs Temp Pulse Pulse Resp BP BP Pulse Ox 04/30/21 23:32 36.5 C 59 L 18 161/75 H 95 04/30/21 21:30 80 16 97 04/30/21 19:04 36.4 C L 65 18 144/74 H 96 04/30/21 15:54 36.4 C L 64 18 190/67 H 96
--- NOTE | 2021-05-01 08:08 | XRay Report ---
XR chest 1V portable CLINICAL HISTORY: wheeze COMPARISON STUDY: Chest radiograph April 28, 2021. Chest CT April 29, 2021. FINDINGS: Exam is mildly compromised by motion artifact. Cardiomegaly is unchanged. There is no pneum othorax or pleural effusion. Bilateral airspace opacities and interstitial thickening, greater within the right lung. IMPRESSION: 1. No significant change in bilateral airspace opacities and interstitial thickening, greater within the right lung. 2. Stable cardiomegaly. ACT 112: Negative or not required by law. Electronically signed by: Norberto Oliver M.D. 05/01/2021 8:07 AM
[2021-05-01] MEDS: INSULIN ASPART 100 UNITS/ML 3 ML PEN SC SCH ×4 (08:34→20:13)
[2021-05-01] MEDS: DULoxetine HCL 60 MG CAP PO SCH (08:37)
[2021-05-01] MEDS: TAMSULOSIN HCL 0.4 MG CAP PO SCH (08:37)
[2021-05-01] MEDS: SERTRALINE HCL 100 MG TABLET PO SCH (08:37)
[2021-05-01] MEDS: carvediloL 12.5 MG TAB PO SCH ×2 (08:38→17:18)
[2021-05-01] MEDS: PANTOprazole 40 MG TAB PO SCH (08:38)
[2021-05-01] MEDS: amLODIPine BESYLATE 5 MG TAB PO SCH (08:38)
[2021-05-01] MEDS: ADVANCED PROBIOTIC 1250 MG CAPSULE PO SCH (08:38)
[2021-05-01] MEDS: UMECLIDINIUM/VILANTEROL 62.5/25MCG 7 PUFFS/INHALER INH SCH (08:39)
[2021-05-01] MEDS: ENOXAPARIN INJ 40 MG/0.4 ML SYR SQ SCH (08:39)
[2021-05-01] MEDS: INSULIN GLARGINE SOLOSTAR 100 UNITS/ML 3 ML PEN SQ SCH ×2 (08:40→20:12)
[2021-05-01] MEDS: DOXYCYCLINE HYCLATE 100 MG CAP PO SCH ×2 (08:40→20:05)
[2021-05-01] MEDS: FERROUS SULFATE 325 MG TAB PO SCH ×2 (08:40→17:18)
[2021-05-01] MEDS: BUMETANIDE 1 MG TAB PO SCH (08:40)
[2021-05-01] MEDS: ATORVASTATIN 40 MG TAB PO SCH (20:06)
[2021-05-01] MEDS: MONTELUKAST SODIUM 10 MG TABLET PO SCH (20:06)
--- NOTE | 2021-05-01 23:58 | Hospitalist Progress Note ---
Date of Service May 01, 2021 Assessment & Plan (1) Dizziness: Plan: Present on admission which complained of dizziness Possible related to medication versus elevated BP CT had showed no acute intracranial abnormality. PT OT eval Fall precaution Clinically improved Possible Cellulitis Xray of left foot showed no definite evidence of bony erosion to suggest osteomyelitis. There is a region of focal osteopenia in the distal great toe. Continue doxycycline twice daily Shortness of breath CTA chest showed no evidence of PE. Multifocal groundglass and reticular opacities COVID-19 negative and proBNP elevated abobe 12K on admission WBC mildly elevated Continue doxycycline that was started for possible cellulitis Continue Bumex daily Saturating well on room air Continue monitor closely Elevated troponin Possible related to hypoxia Troponin 0.054 on admission Elevated BNP on admission Denies any chest pain Continue statin and carvedilol Chronic diastolic CHF (congestive heart failure): CHF with preserved EF Continue Bumex home dose Continue monitor closely for sign of volume overload COPD (chronic obstructive pulmonary disease): Chronic respiratory failure. On 2L oxygen (patient was seen in the ER on room air) No signs exacerbation Continue home inhalers Diabetes mellitus, type II: Most recent hemoglobin A1c 6.9 on 04/29/21 Continue home Lantus NovoLog sliding scale per protocol Coronary artery disease: Continue carvedilol, atorvastatin Anemia: Hgb 9.4 Last admission hemoglobin back in December dropped received 1 unit PRBCs on 01/01/2021 No signs of active bleeding. Denies melena, hematochezia Continue iron supplement Hypertension: BP elevated Not sure if patient compliant with his medication Continue carvedilol, amlodipine with holding parameters Hyperlipidemia: Continue atorvastatin Depression: Continue duloxetine, sertraline FRANCIS (obstructive sleep apnea): Noncompliant with CPAP DVT Prophylaxis SCDs CODE STATUS Full code Admission and Anticipated Discharge Date Admission Date: May 01, 2021 Subjective Patient was seen and evaluated for follow-up. lying in bed with no acute distress watching the [email or web address] movie Denies any chest pain palpitation, dizziness, shortness of breath. Review of Systems Review of Systems: All systems reviewed & are unremarkable except as noted in Subjective Physical Exam Physical Exam: General- No acute distress Head- atraumatic Eyes- PERRL, EOMI, ENT- oropharynx clear Neck- supple, no JVD Lungs- clear to auscultation Heart- regular rhythm; no murmur Abdomen- normal bowel sounds, soft, nontender Extremities- no calf tenderness, +edema Neuro- alert, oriented; PERRL, EOMI; no facial palsy; no dysarthria Skin- warm & dry Results & Data Results & Data ([facility]) Vital Signs (Past 12 Hours) Vital Signs Temp Pulse Resp BP Pulse Ox 05/01/21 23:27 36.4 C L 62 18 180/93 H 92 05/01/21 19:20 36.6 C 69 20 163/82 H 95 05/01/21 15:11 36.4 C L 64 16 171/75 H 91
[2021-05-02] MEDS: oxyCODONE HCL IR 5 MG TAB (IMMEDIATE RELEASE) PO PRN ×3 (05:40→19:36)
[2021-05-02] MEDS: INSULIN GLARGINE SOLOSTAR 100 UNITS/ML 3 ML PEN SQ SCH ×2 (08:48→20:52)
[2021-05-02] MEDS: INSULIN ASPART 100 UNITS/ML 3 ML PEN SC SCH ×4 (08:49→20:52)
[2021-05-02] MEDS: carvediloL 12.5 MG TAB PO SCH ×2 (08:49→17:43)
[2021-05-02] MEDS: ENOXAPARIN INJ 40 MG/0.4 ML SYR SQ SCH (08:51)
[2021-05-02] MEDS: UMECLIDINIUM/VILANTEROL 62.5/25MCG 7 PUFFS/INHALER INH SCH (08:53)
[2021-05-02] MEDS: SENNA 8.6 MG TAB PO PRN (08:54)
[2021-05-02] MEDS: SERTRALINE HCL 100 MG TABLET PO SCH (08:56)
[2021-05-02] MEDS: ADVANCED PROBIOTIC 1250 MG CAPSULE PO SCH (08:56)
[2021-05-02] MEDS: BUMETANIDE 1 MG TAB PO SCH (08:57)
[2021-05-02] MEDS: PANTOprazole 40 MG TAB PO SCH (08:57)
[2021-05-02] MEDS: FERROUS SULFATE 325 MG TAB PO SCH ×2 (08:57→17:46)
[2021-05-02] MEDS: DOXYCYCLINE HYCLATE 100 MG CAP PO SCH ×2 (08:58→20:53)
[2021-05-02] MEDS: TAMSULOSIN HCL 0.4 MG CAP PO SCH (08:58)
[2021-05-02] MEDS: amLODIPine BESYLATE 5 MG TAB PO SCH (09:00)
[2021-05-02] MEDS: DULoxetine HCL 60 MG CAP PO SCH (09:01)
--- NOTE | 2021-05-02 13:57 | Psychiatric Consultation ---
Date of Consultation May 02, 2021 Impression / Recommendations Impression 66 yo male with hx of compliance issues with multiple chronic conditions, recent extended stay for COVID, relies on sister for transportation/other assistance. Exam is currently limited by cooperation. (1) Adjustment disorder: The patient is frustrated with his overall health and care. There is not much information re: past psychiatric history and he is refusing further assessment or for our team to communicate with sister. Per primary team/CM interactions with sister, he has been circumstantial in answering questions his whole life. He reports he is agreeable to in home services. In limited interaction there does not appear to be active psychosis or suicidal ideation interfering with his medical decision making. There is no immediate indication for a 302 petition or warrant. His mental status did not appear altered and he conversed appropriately on the phone with a family member after he asked me to leave. Risk Factors Assessment Do You Have Access To A Gun?: Yes (owns weapons ) Psych History Identifying Data 66 yo male with multiple medical conditions (COPD, anemia, diabetes, CHF) admit for dizziness. Consult is by Dr. Irwin for capacity. Chief Complaint "there's nothing wrong with my head". History of Present Illness Patient is focussed on leg pain at this time. States that he doesn't want a psychiatric evaluation. He previously declined to answer mood questions when liaison attempted history. Reviewed [facility] of Aging concerns about him refusing services, like return to rehab if indicated and patient states "why would I want to go back there? they just let you lay in bed". He states that he would accept in home services but is also irritable stating that anyone who can't help him (referring to his pain) should get out. He denied depression and psychosis. His reports of his transportation/etc. seem consistent with CM discussions with sister. On review of chart no psychiatric history on file here at [facility]. He is unable to state why he takes Cymbalta or Zoloft. Per CM he does have an open case with adult protective services and they were going to close until he started refusing placement. Past Psychiatric History Previous Psych History: denies Previous Psych Admissions: denied Do You Have Access To A Gun?: Yes (owns weapons ) History of Previous Suicide Attempt: No Allergies Allergy/AdvReac Type Severity Reaction Status Date / Time No Known Allergies Allergy Verified 04/28/21 19:50 Home Medications Medication Instructions Recorded Confirmed Type acetaminophen 325 mg tablet 650 mg PO Q4 PRN 11/29/20 04/28/21 History (Tylenol) atorvastatin 40 mg tablet 40 mg PO HS 11/29/20 04/29/21 History docusate sodium 100 mg capsule 100 mg PO BID PRN 11/29/20 04/28/21 History (Stool Softener) montelukast 10 mg tablet 10 mg PO HS 11/29/20 04/29/21 History (Singulair) polyethylene glycol 3350 17 gram 17 g PO DAILY PRN 11/29/20 04/28/21 History oral powder packet (Miralax) sertraline 100 mg tablet (Zoloft) 100 mg PO DAILY 11/29/20 04/29/21 History tamsulosin 0.4 mg capsule (Flomax) 0.8 mg PO DAILY 11/29/20 04/29/21 History umeclidinium 62.5 mcg-vilanterol 1 inh INHALATION DAILY 11/29/20 04/29/21 History 25 mcg/actuation powdr for inhalation (Anoro Ellipta) sennosides 8.6 mg capsule (senna) 8.6 mg PO DAILY PRN 02/17/21 04/28/21 History oxycodone 5 mg tablet (Roxicodone) 5 mg PO Q12H PRN 5 Days #10 tab 02/23/21 04/28/21 Rx bumetanide 1 mg tablet 1 mg PO DAILY 04/28/21 04/29/21 History albuterol sulfate 90 mcg/actuation 2 puff INHALATION QID PRN 04/29/21 04/29/21 History aerosol inhaler (Ventolin HFA) amlodipine 5 mg tablet 5 mg PO DAILY 04/29/21 04/29/21 History carvedilol 12.5 mg tablet 12.5 mg PO BID 04/29/21 04/29/21 History duloxetine 60 mg capsule,delayed 60 mg PO DAILY 04/29/21 04/29/21 History release gabapentin 100 mg capsule 200 mg PO TID 04/29/21 04/29/21 History pantoprazole 40 mg tablet,delayed 40 mg PO DAILY 04/29/21 04/29/21 History release potassium chloride 20 mEq 20 meq PO DAILY 04/29/21 04/29/21 History tablet,extended release(part/cryst) Family History denies Substance Abuse History social drinker Personal History 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) Beliefs That Will Affect Care: None History of Legal Problems: no Additional Comments: denied Patient History Medical History Abnormal posture Ambulatory dysfunction Chronic diastolic CHF (congestive heart failure) Chronic respiratory failure with hypoxia Coronary artery disease Depression Diabetes mellitus, type II Gout History of blood transfusion History of COVID-19 Hyperlipidemia Hypertension Mood disorder Morbid obesity FRANCIS (obstructive sleep apnea) Septic arthritis Ventricular tachycardia Surgical History Cataract extraction status, unspecified eye H/O knee surgery History of incision and drainage Family History Other Throat cancer Social History Smoking Status: Never smoker Tobacco Type: Cigarettes Second Hand Exposure: Yes (Pts father); Do You Dip or Chew Tobacco: No; Hx Alcohol Use: Yes Alcohol type: beer Hx Substance Use: Yes Last Used Substance: Days (ago) Preferred Language: Icelandic Communication Ability: Effective 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 Beliefs That Will Affect Care: None marital status: Single Current Living Situation: Alone Current Living Situation Comment: [facility] How many Children do You have: 0 Other Information That Helps Us Care for You: No Feels Safe at Home: Yes Safety Concerns: Feels Safe At This Time Assistive Devices: Glasses Assistive Devices Comment: pt states he uses a walking stick and he has a walker at home Physical Exam Psychiatric: Orientation: alert, oriented to person and oriented to place Apperance: + disheveled Eye Contact: + poor eye contact Speech: + loud speech; no pressured speech Affect: + irritable affect Mood: + irritable mood Thought Process: + concrete thought process Thought Content: reality based without delusions Suicidal Thoughts: denies suicidal thoughts Homicidal Thoughts: denies homicidal thoughts Hallucinations: no auditory hallucinations and no visual hallucinations Cognition: language grossly intact; + attention not intact Estimated Intelligence: consistent with education level Insight: + limited insight Judgement: + limited judgement Vital Signs (Past 24 Hours): Last Vital Signs Temp 36.5 C 11/23/21 11:00 Pulse 80 05/02/21 11:00 Resp 20 05/02/21 11:00 BP 146/71 H 05/02/21 11:00 Pulse Ox 96 05/02/21 11:00 Review of Systems Other (refused) Results & Data (PSY) Medications Administered Amlodipine Besylate (Amlodipine Besylate 5 Mg Tab) 10 mg PO DAILY ZOHAIB Stop: 05/30/21 08:59 Last Admin: 05/02/21 09:00 Dose: 10 mg Documented by: [id number] Admin: 05/01/21 08:38 Dose: 10 mg Documented by: [id number] Admin: 04/30/21 09:23 Dose: 10 mg Documented by: [id number] Atorvastatin Calcium (Atorvastatin 40 Mg Tab) 40 mg PO HS ZOHAIB Stop: 05/29/21 20:59 Last Admin: 05/01/21 20:06 Dose: 40 mg Documented by: [id number] Admin: 04/30/21 21:03 Dose: 40 mg Documented by: [id number] Admin: 04/29/21 20:55 Dose: 40 mg Documented by: [id number] Bumetanide (Bumetanide 1 Mg Tab) 1 mg PO DAILY ZOHAIB Stop: 05/31/21 08:59 Last Admin: 05/02/21 08:57 Dose: 1 mg Documented by: [id number] Admin: 05/01/21 08:40 Dose: 1 mg Documented by: [id number] Carvedilol (Carvedilol 12.5 Mg Tab) 12.5 mg PO BIDM ZOHAIB Stop: 05/29/21 05:44 Last Admin: 05/02/21 08:49 Dose: 12.5 mg Documented by: [id number] Admin: 05/01/21 17:18 Dose: 12.5 mg Documented by: [id number] Admin: 05/01/21 08:38 Dose: 12.5 mg Documented by: [id number] Admin: 04/30/21 18:11 Dose: 12.5 mg Documented by: [id number] Admin: 04/30/21 09:23 Dose: 12.5 mg Documented by: [id number] Admin: 04/29/21 18:10 Dose: 12.5 mg Documented by: [id number] Admin: 04/29/21 06:17 Dose: 12.5 mg Documented by: [id number] Doxycycline Hyclate (Doxycycline Hyclate 100 Mg Cap) 100 mg PO BID ZOHAIB Stop: 05/06/21 03:59 Last Admin: 05/02/21 08:58 Dose: 100 mg Documented by: [id number] Admin: 05/01/21 20:05 Dose: 100 mg Documented by: [id number] Admin: 05/01/21 08:40 Dose: 100 mg Documented by: [id number] Admin: 04/30/21 21:03 Dose: 100 mg Documented by: [id number] Admin: 04/30/21 09:25 Dose: 100 mg Documented by: [id number] Admin: 04/29/21 20:55 Dose: 100 mg Documented by: [id number] Admin: 04/29/21 04:48 Dose: 100 mg Documented by: [id number] Duloxetine HCl (Duloxetine Hcl 60 Mg Cap) 60 mg PO DAILY ZOHAIB Stop: 05/29/21 08:59 Last Admin: 05/02/21 09:01 Dose: 60 mg Documented by: [id number] Admin: 05/01/21 08:37 Dose: 60 mg Documented by: [id number] Admin: 04/30/21 09:39 Dose: 60 mg Documented by: [id number] Admin: 04/29/21 09:36 Dose: 60 mg Documented by: [id number] Enoxaparin Sodium (Enoxaparin Inj 40 Mg/0.4 Ml Syr) 40 mg SQ QAM [facility] Stop: 05/29/21 08:59 Last Admin: 05/02/21 08:51 Dose: 40 mg Documented by: [id number] Admin: 05/01/21 08:39 Dose: 40 mg Documented by: [id number] Admin: 04/30/21 09:30 Dose: 40 mg Documented by: [id number] Admin: 04/29/21 09:36 Dose: 40 mg Documented by: [id number] Ferrous Sulfate (Ferrous Sulfate 325 Mg Tab) 325 mg PO BIDM ZOHAIB Stop: 05/29/21 07:59 Last Admin: 05/02/21 08:57 Dose: 325 mg Documented by: [id number] Admin: 05/01/21 17:18 Dose: 325 mg Documented by: [id number] Admin: 05/01/21 08:40 Dose: 325 mg Documented by: [id number] Admin: 04/30/21 21:04 Dose: 325 mg Documented by: [id number] Admin: 04/30/21 09:24 Dose: 325 mg Documented by: [id number] Admin: 04/29/21 18:09 Dose: 325 mg Documented by: [id number] Admin: 04/29/21 09:36 Dose: 325 mg Documented by: [id number] Insulin Aspart (Insulin Aspart 100 Units/Ml 3 Ml Pen) 0 units SC ACHS ZOHAIB Stop: 05/29/21 05:09 Last Admin: 05/02/21 13:10 Dose: 3 units Documented by: [id number] Cosigned by: [id number] Admin: 05/02/21 08:49 Dose: 3 units Documented by: [id number] Cosigned by: [id number] Admin: 05/01/21 20:13 Dose: Not Given Documented by: [id number] Cosigned by: [id number] Admin: 05/01/21 17:08 Dose: Not Given Documented by: [id number] Cosigned by: [id number] Admin: 05/01/21 12:26 Dose: Not Given Documented by: [id number] Cosigned by: [id number] Admin: 05/01/21 08:34 Dose: Not Given Documented by: [id number] Cosigned by: [id number] Admin: 04/30/21 20:59 Dose: Not Given Documented by: [id number] Admin: 04/30/21 18:11 Dose: 2 units Documented by: [id number] Cosigned by: [id number] Admin: 04/30/21 12:31 Dose: 4 units Documented by: [id number] Cosigned by: [id number] Admin: 04/30/21 08:58 Dose: 6 units Documented by: [id number] Cosigned by: [id number] Admin: 04/29/21 22:00 Dose: 6 units Documented by: [id number] Cosigned by: [id number] Admin: 04/29/21 17:58 Dose: Not Given Documented by: [id number] Admin: 04/29/21 13:34 Dose: 10 units Documented by: [id number] Cosigned by: [id number] Admin: 04/29/21 08:21 Dose: 11 units Documented by: [id number] Cosigned by: [id number] Admin: 04/29/21 06:21 Dose: 7 units Documented by: [id number] Cosigned by: [id number] Insulin Glargine (Insulin Glargine Solostar 100 Units/Ml 3 Ml Pen) 30 units SQ BID ZOHAIB Stop: 05/30/21 08:59 Last Admin: 05/02/21 08:48 Dose: 30 units Documented by: [id number] Cosigned by: [id number] Admin: 05/01/21 20:12 Dose: 30 units Documented by: [id number] Cosigned by: [id number] Admin: 05/01/21 08:40 Dose: 30 units Documented by: [id number] Cosigned by: [id number] Admin: 04/30/21 21:04 Dose: 30 units Documented by: [id number] Cosigned by: [id number] Admin: 04/30/21 09:31 Dose: 30 units Documented by: [id number] Cosigned by: [id number] Ipratropium Hensley (Ipratropium Hensley Neb Soln 0.02% 2.5 Ml Vial) 0.5 mg INH Q4H PRN PRN Reason: sob/wheezing Stop: 05/28/21 22:29 Last Admin: 04/29/21 18:19 Dose: 0.5 mg Documented by: [id number] Admin: 04/29/21 00:10 Dose: 0.5 mg Documented by: [id number] Lactobacillus Acidoph/Casei/Rhamnos (Advanced Probiotic 1250 Mg Capsule) 2 cap PO DAILY ZOHAIB Stop: 05/29/21 08:59 Last Admin: 05/02/21 08:56 Dose: 2 cap Documented by: [id number] Admin: 05/01/21 08:38 Dose: 2 cap Documented by: [id number] Admin: 04/30/21 09:23 Dose: 2 cap Documented by: [id number] Admin: 04/29/21 09:37 Dose: 2 cap Documented by: [id number] Levalbuterol HCl (Levalbuterol 1.25mg/0.5ml Neb) 1.25 mg INH Q4H PRN PRN Reason: sob/wheezing Stop: 05/28/21 22:29 Last Admin: 04/29/21 18:19 Dose: 1.25 mg Documented by: [id number] Admin: 04/29/21 00:10 Dose: 1.25 mg Documented by: [id number] Montelukast Sodium (Montelukast Sodium 10 Mg Tablet) 10 mg PO HS ZOHAIB Stop: 05/29/21 20:59 Last Admin: 05/01/21 20:06 Dose: 10 mg Documented by: [id number] Admin: 04/30/21 21:03 Dose: 10 mg Documented by: [id number] Admin: 04/29/21 20:55 Dose: 10 mg Documented by: [id number] Oxycodone HCl (Oxycodone Hcl Ir 5 Mg Tab (Immediate Release)) 5 mg PO Q6H PRN PRN Reason: Pain Stop: 05/12/21 23:44 Last Admin: 05/02/21 13:11 Dose: 5 mg Documented by: [id number] Admin: 05/02/21 05:40 Dose: 5 mg Documented by: [id number] Admin: 04/29/21 18:12 Dose: 5 mg Documented by: [id number] Pantoprazole Sodium (Pantoprazole 40 Mg Tab) 40 mg PO DAILY ZOHAIB Stop: 05/29/21 08:59 Last Admin: 05/02/21 08:57 Dose: 40 mg Documented by: [id number] Admin: 05/01/21 08:38 Dose: 40 mg Documented by: [id number] Admin: 04/30/21 09:24 Dose: 40 mg Documented by: [id number] Admin: 04/29/21 09:37 Dose: 40 mg Documented by: [id number] Phenol (Chloraseptic 1.4% Soln 180 Ml Btl) 1 sprays MT Q2H PRN PRN Reason: tongue pain Stop: 05/30/21 21:16 Last Admin: 04/30/21 22:10 Dose: 1 sprays Documented by: [id number] Sennosides (Senna 8.6 Mg Tab) 8.6 mg PO DAILY PRN PRN Reason: Constipation Stop: 05/28/21 23:58 Last Admin: 05/02/21 08:54 Dose: 8.6 mg Documented by: [id number] Sertraline HCl (Sertraline Hcl 100 Mg Tablet) 100 mg PO DAILY ZOHAIB Stop: 05/29/21 08:59 Last Admin: 05/02/21 08:56 Dose: 100 mg Documented by: [id number] Admin: 05/01/21 08:37 Dose: 100 mg Documented by: [id number] Admin: 04/30/21 09:23 Dose: 100 mg Documented by: [id number] Admin: 04/29/21 09:37 Dose: 100 mg Documented by: [id number] Tamsulosin HCl (Tamsulosin Hcl 0.4 Mg Cap) 0.8 mg PO DAILY ZOHAIB Stop: 05/29/21 08:59 Last Admin: 05/02/21 08:58 Dose: 0.8 mg Documented by: [id number] Admin: 05/01/21 08:37 Dose: 0.8 mg Documented by: [id number] Admin: 04/30/21 09:24 Dose: 0.8 mg Documented by: [id number] Admin: 04/29/21 09:37 Dose: 0.8 mg Documented by: [id number] Umeclidinium/Vilanterol (Umeclidinium/Vilanterol 62.5/25mcg 7 Puffs/Inhaler) 1 puffs INH DAILY ZOHAIB Stop: 05/29/21 08:59 Last Admin: 05/02/21 08:53 Dose: 1 puffs Documented by: [id number] Admin: 05/01/21 08:39 Dose: 1 puffs Documented by: [id number] Admin: 04/30/21 09:38 Dose: 1 puffs Documented by: [id number] Admin: 04/29/21 09:37 Dose: 1 puffs Documented by: [id number] Coding Level of Care Code 82001 Inpt Consult Level 3 Diagnoses Adjustment disorder F43.20
[2021-05-02] MEDS: MONTELUKAST SODIUM 10 MG TABLET PO SCH (20:53)
[2021-05-02] MEDS: ATORVASTATIN 40 MG TAB PO SCH (20:54)
[2021-05-02] MEDS: GABAPENTIN 100 MG CAP PO SCH (21:54)
--- NOTE | 2021-05-02 22:47 | Hospitalist Progress Note ---
Date of Service May 02, 2021 Assessment & Plan (1) Dizziness: Plan: Present on admission which complained of dizziness Possible related to medication versus high BP CT head showed no acute intracranial abnormality. Continue PT /OT eval Fall precaution Clinically improved Possible Cellulitis Xray of left foot showed no definite evidence of bony erosion to suggest osteomyelitis. There is a region of focal osteopenia in the distal great toe. Continue doxycycline twice daily Shortness of breath CTA chest showed no evidence of PE. Multifocal groundglass and reticular opacities COVID-19 negative and proBNP elevated above 12K on admission WBC mildly elevated Continue doxycycline that was started for possible cellulitis Continue Bumex daily Saturating well on room air Continue monitor closely Elevated troponin Possible related to hypoxia Troponin 0.054 on admission Elevated BNP on admission Denies any chest pain Continue statin and carvedilol Adjustment disorder Psych was consulted As per psych patient does not appear to be active psychosis or suicidal ideation interfering with his medical decision making. Stable Chronic diastolic CHF (congestive heart failure): CHF with preserved EF Continue Bumex home dose Continue monitor closely for sign of volume overload COPD (chronic obstructive pulmonary disease): Chronic respiratory failure. On 2L oxygen (patient was seen in the ER on room air) No signs exacerbation Continue home inhalers Diabetes mellitus, type II: Most recent hemoglobin A1c 6.9 on 04/29/21 Continue home Lantus NovoLog sliding scale per protocol Bilateral lower extremity pain Mostly due neuropathy Will resume gabapentin at 100 mg 3 times daily Monitor mental status while on gabapentin Coronary artery disease: Continue carvedilol, atorvastatin Anemia: Hgb 9.4 Last admission hemoglobin back in December dropped received 1 unit PRBCs on 01/01/2021 No signs of active bleeding. Denies melena, hematochezia Continue iron supplement Hypertension: BP elevated Not sure if patient compliant with his medication Continue carvedilol, amlodipine with holding parameters Hyperlipidemia: Continue atorvastatin Depression: Continue duloxetine, sertraline FRANCIS (obstructive sleep apnea): Noncompliant with CPAP DVT Prophylaxis SCDs CODE STATUS Full code Disposition Plan to discharge home with home health Admission and Anticipated Discharge Date Admission Date: May 01, 2021 Subjective Patient was seen and evaluated for follow-up. lying in bed with no acute distress watching TV He is complaining of burning pain in both lower extremities Denies any chest pain palpitation, dizziness, shortness of breath. Review of Systems Review of Systems: All systems reviewed & are unremarkable except as noted in Subjective Physical Exam Physical Exam: General- No acute distress Head- atraumatic Eyes- PERRL, EOMI, ENT- oropharynx clear Neck- supple, no JVD Lungs- clear to auscultation Heart- regular rhythm; no murmur Abdomen- normal bowel sounds, soft, nontender Extremities- no calf tenderness, +edema, +bilateral lower extremity tenderness Neuro- alert, oriented; PERRL, EOMI; no facial palsy; no dysarthria Skin- warm & dry Results & Data Results & Data ([facility]) Vital Signs (Past 12 Hours) Vital Signs Temp Pulse Resp BP Pulse Ox 05/02/21 22:24 36.6 C 63 20 157/79 H 94 05/02/21 19:26 36.5 C 65 20 152/77 H 94 05/02/21 16:00 36.6 C 63 20 159/85 H 94 05/02/21 11:00 36.5 C 80 20 146/71 H 96
[2021-05-03] MEDS: oxyCODONE HCL IR 5 MG TAB (IMMEDIATE RELEASE) PO PRN (01:28)
[2021-05-03 06:42] LABS: Hematocrit (blood only) 29.6 % (42-52); Hemoglobin 9.2 g/dL (14.0-18.0); Mean Corpuscular Hemoglobin 26.4 pg (25-34); Mean Corpuscular Hgb Conc 31.1 g/dL (32-36); Mean Corpuscular Volume 84.8 fL (80-100); Mean Platelet Volume 9.7 fL (7.4-10.4); Platelet Count 288 K/uL (130-400); RDW Coefficient of Variation 16.5 % (11.5-14.5); RDW Standard Deviation 50.7 fL (36.4-46.3); Red Blood Count 3.49 M/uL (4.7-6.1); White Blood Count 9.88 K/uL (4.8-10.8)
[2021-05-03 07:18] LABS: BUN Creatinine Ratio 24.2 (10-20); Calcium 9.2 mg/dl (8.5-10.1); Creatinine Clr Calc Pharmacy 86.3 ml/min; Est GFR (African American) 65.6 ml/min; Est GFR (Non-African American) 56.6 ml/min; Potassium 3.3 mmol/L (3.5-5.1)
[2021-05-03] MEDS: UMECLIDINIUM/VILANTEROL 62.5/25MCG 7 PUFFS/INHALER INH SCH (08:40)
[2021-05-03] MEDS: GABAPENTIN 100 MG CAP PO SCH ×3 (08:40→20:57)
[2021-05-03] MEDS: ADVANCED PROBIOTIC 1250 MG CAPSULE PO SCH (08:41)
[2021-05-03] MEDS: carvediloL 12.5 MG TAB PO SCH ×2 (08:41→17:52)
[2021-05-03] MEDS: DOXYCYCLINE HYCLATE 100 MG CAP PO SCH ×2 (08:41→20:57)
[2021-05-03] MEDS: DULoxetine HCL 60 MG CAP PO SCH (08:41)
[2021-05-03] MEDS: BUMETANIDE 1 MG TAB PO SCH (08:42)
[2021-05-03] MEDS: SERTRALINE HCL 100 MG TABLET PO SCH (08:42)
[2021-05-03] MEDS: FERROUS SULFATE 325 MG TAB PO SCH ×2 (08:42→17:53)
[2021-05-03] MEDS: amLODIPine BESYLATE 5 MG TAB PO SCH (08:42)
[2021-05-03] MEDS: PANTOprazole 40 MG TAB PO SCH (08:42)
[2021-05-03] MEDS: ENOXAPARIN INJ 40 MG/0.4 ML SYR SQ SCH (08:44)
[2021-05-03] MEDS: INSULIN GLARGINE SOLOSTAR 100 UNITS/ML 3 ML PEN SQ SCH ×2 (08:44→20:55)
[2021-05-03] MEDS: INSULIN ASPART 100 UNITS/ML 3 ML PEN SC SCH ×4 (08:44→20:55)
[2021-05-03] MEDS: TAMSULOSIN HCL 0.4 MG CAP PO SCH (10:33)
--- NOTE | 2021-05-03 19:44 | Hospitalist Progress Note ---
Date of Service May 03, 2021 Assessment & Plan (1) Dizziness: Plan: per Dr. Montalvo's notes with addendum: Present on admission which complained of dizziness Possible related to medication versus high BP CT head showed no acute intracranial abnormality. Continue PT /OT eval Fall precaution -- dizziness resolved Possible Cellulitis Xray of left foot showed no definite evidence of bony erosion to suggest osteomyelitis. There is a region of focal osteopenia in the distal great toe. -- Continue doxycycline twice daily Shortness of breath CTA chest showed no evidence of PE. Multifocal groundglass and reticular opacities COVID-19 negative and proBNP elevated above 12K on admission WBC mildly elevated Continue doxycycline that was started for possible cellulitis Continue Bumex daily -- respiratory status stable Elevated troponin Possible related to hypoxia Troponin 0.054 on admission Elevated BNP on admission Denies any chest pain Continue statin and carvedilol Adjustment disorder Psych was consulted As per psych patient does not appear to be active psychosis or suicidal ideation interfering with his medical decision making. Stable Chronic diastolic CHF (congestive heart failure): CHF with preserved EF Continue Bumex home dose -- euvolemic COPD (chronic obstructive pulmonary disease): Chronic respiratory failure. On 2L oxygen (patient was seen in the ER on room air) No signs exacerbation Continue home inhalers Diabetes mellitus, type II: Most recent hemoglobin A1c 6.9 on 04/29/21 Continue home Lantus NovoLog sliding scale per protocol Bilateral lower extremity pain Mostly due neuropathy -- gabapentin at 100 mg 3 times daily Coronary artery disease: Continue carvedilol, atorvastatin Anemia: Hgb 9.4 Last admission hemoglobin back in December received 1 unit PRBCs on 01/01/2021 No signs of active bleeding. Denies melena, hematochezia Continue iron supplement -- Hg 9.2 Hypertension: BP elevated Not sure if patient compliant with his medication Continue carvedilol, amlodipine with holding parameters -- BP stable Hyperlipidemia: Continue atorvastatin Depression: Continue duloxetine, sertraline FRANCIS (obstructive sleep apnea): Noncompliant with CPAP DVT Prophylaxis SCDs CODE STATUS Full code Disposition Plan to discharge home with home health Admission and Anticipated Discharge Date Admission Date: May 01, 2021 Subjective ff up for dizziness, HTN, etc seen resting in bed, sleeping but easily awakened comfortable states he feels fine overall no chest pain, dyspnea, palpitations, dizziness answers questions appropriately, oriented x 3 jokes a lot no other symptoms Review of Systems Review of Systems: all noted and negative except for above Physical Exam Physical Exam: General- oriented x 3, not in distress, speaks in sentences with no effort or accessory muscle use Eyes- anicteric Neck- no JVD Lungs- clear breath sounds bilaterally, no rales/wheezes Heart- normal rate, regular rhythm; no murmurs Abdomen- normal bowel sounds, nondistended, soft, nontender Extremities- no pretibial edema, no calf tenderness Neuro- alert, oriented x 3; no gross focal neurologic deficits Skin- warm & dry Results & Data Results & Data ([facility]) Vital Signs (Past 12 Hours) Vital Signs Temp Pulse Resp BP BP Pulse Ox 05/03/21 15:31 36.4 C L 56 L 18 163/52 H 97 05/03/21 11:55 36.4 C L 66 18 140/70 93 05/03/21 08:02 36.4 C L 60 18 135/71 92 all noted and reviewed including below
[2021-05-03] MEDS: MONTELUKAST SODIUM 10 MG TABLET PO SCH (20:57)
[2021-05-03] MEDS: ATORVASTATIN 40 MG TAB PO SCH (20:58)
[2021-05-04] MEDS: INSULIN ASPART 100 UNITS/ML 3 ML PEN SC SCH ×4 (08:33→20:27)
[2021-05-04] MEDS: INSULIN GLARGINE SOLOSTAR 100 UNITS/ML 3 ML PEN SQ SCH ×2 (08:35→20:27)
[2021-05-04] MEDS: SERTRALINE HCL 100 MG TABLET PO SCH (08:36)
[2021-05-04] MEDS: UMECLIDINIUM/VILANTEROL 62.5/25MCG 7 PUFFS/INHALER INH SCH (08:36)
[2021-05-04] MEDS: GABAPENTIN 100 MG CAP PO SCH ×3 (08:36→20:26)
[2021-05-04] MEDS: BUMETANIDE 1 MG TAB PO SCH (08:37)
[2021-05-04] MEDS: ADVANCED PROBIOTIC 1250 MG CAPSULE PO SCH (08:37)
[2021-05-04] MEDS: DULoxetine HCL 60 MG CAP PO SCH (08:37)
[2021-05-04] MEDS: PANTOprazole 40 MG TAB PO SCH (08:37)
[2021-05-04] MEDS: TAMSULOSIN HCL 0.4 MG CAP PO SCH (08:37)
[2021-05-04] MEDS: FERROUS SULFATE 325 MG TAB PO SCH ×2 (08:37→17:47)
[2021-05-04] MEDS: amLODIPine BESYLATE 5 MG TAB PO SCH (08:37)
[2021-05-04] MEDS: SENNA 8.6 MG TAB PO PRN (08:37)
[2021-05-04] MEDS: carvediloL 12.5 MG TAB PO SCH ×2 (08:38→17:47)
[2021-05-04] MEDS: ENOXAPARIN INJ 40 MG/0.4 ML SYR SQ SCH (08:39)
[2021-05-04] MEDS: DOXYCYCLINE HYCLATE 100 MG CAP PO SCH ×2 (12:33→20:26)
--- NOTE | 2021-05-04 13:47 | Hospitalist Progress Note ---
Date of Service May 04, 2021 Assessment & Plan (1) Dizziness: Plan: per Dr. Montalvo's notes with addendum: Present on admission which complained of dizziness Possible related to medication versus high BP CT head showed no acute intracranial abnormality. Continue PT /OT eval Fall precaution -- dizziness resolved -- management of HTN per below Hypertension: BP elevated Not sure if patient compliant with his medication Continue carvedilol, amlodipine with holding parameters -- BP not at goal add lisinopril 20mg po daily Possible Cellulitis Xray of left foot showed no definite evidence of bony erosion to suggest osteomyelitis. There is a region of focal osteopenia in the distal great toe. -- Continue doxycycline twice daily day 6 Shortness of breath CTA chest showed no evidence of PE. Multifocal groundglass and reticular opacities COVID-19 negative and proBNP elevated above 12K on admission WBC mildly elevated Continue doxycycline that was started for possible cellulitis Continue Bumex daily -- respiratory status stable Elevated troponin Possible related to hypoxia Troponin 0.054 on admission Elevated BNP on admission Denies any chest pain Continue statin and carvedilol Adjustment disorder Psych was consulted As per psych patient does not appear to be active psychosis or suicidal ideation interfering with his medical decision making. Stable Chronic diastolic CHF (congestive heart failure): CHF with preserved EF Continue Bumex home dose -- euvolemic COPD (chronic obstructive pulmonary disease): Chronic respiratory failure. On 2L oxygen (patient was seen in the ER on room air) No signs exacerbation Continue home inhalers Diabetes mellitus, type II: Most recent hemoglobin A1c 6.9 on 04/29/21 Continue home Lantus NovoLog sliding scale per protocol Bilateral lower extremity pain Mostly due neuropathy -- gabapentin at 100 mg 3 times daily Coronary artery disease: Continue carvedilol, atorvastatin Anemia: Hgb 9.4 Last admission hemoglobin back in December dropped received 1 unit PRBCs on 01/01/2021 No signs of active bleeding. Denies melena, hematochezia Continue iron supplement -- Hg 9.2 Hyperlipidemia: Continue atorvastatin Depression: Continue duloxetine, sertraline FRANCIS (obstructive sleep apnea): Noncompliant with CPAP DVT Prophylaxis SCDs CODE STATUS Full code Disposition Plan to discharge home with home health Admission and Anticipated Discharge Date Admission Date: May 01, 2021 Subjective ff up for dizziness, HTN seen resting in bed, sleeping but easily awakened oriented x 3, answers all questions appropriately states he feels fine overall no chest pain, dyspnea, palpitations, dizziness no headache no other symptoms Review of Systems Review of Systems: all noted and negative except for above Physical Exam Physical Exam: General- oriented x 3, not in distress, speaks in sentences with no effort or accessory muscle use Eyes- anicteric Neck- no JVD Lungs- clear breath sounds bilaterally, no rales/wheezes Heart- normal rate, regular rhythm; no murmurs Abdomen- normal bowel sounds, nondistended, soft, nontender Extremities- no pretibial edema, no calf tenderness LLE: wound on the anterior culver, distal aspect healing well, mild erythema wound on the toes also drying, no signs of infection Neuro- alert, oriented x 3; no gross focal neurologic deficits Skin- warm & dry Results & Data Results & Data ([facility]) Vital Signs (Past 12 Hours) Vital Signs Temp Pulse Resp BP Pulse Ox 05/04/21 12:00 36.9 C 57 L 20 171/76 H 96 05/04/21 07:00 36.2 C L 63 20 160/81 H 95 05/04/21 04:35 36.3 C L 55 L 18 126/74 93 all noted and reviewed including below
[2021-05-04] MEDS: lisinopril 10 MG TAB PO SCH (16:03)
[2021-05-04] MEDS: ATORVASTATIN 40 MG TAB PO SCH (20:26)
[2021-05-04] MEDS: MONTELUKAST SODIUM 10 MG TABLET PO SCH (20:26)
[2021-05-05] MEDS: INSULIN ASPART 100 UNITS/ML 3 ML PEN SC SCH ×4 (08:47→21:19)
[2021-05-05] MEDS: INSULIN GLARGINE SOLOSTAR 100 UNITS/ML 3 ML PEN SQ SCH ×2 (08:47→21:20)
[2021-05-05] MEDS: GABAPENTIN 100 MG CAP PO SCH ×3 (08:51→21:23)
[2021-05-05] MEDS: DOXYCYCLINE HYCLATE 100 MG CAP PO SCH ×2 (08:51→21:24)
[2021-05-05] MEDS: ADVANCED PROBIOTIC 1250 MG CAPSULE PO SCH (08:52)
[2021-05-05] MEDS: lisinopril 10 MG TAB PO SCH (08:52)
[2021-05-05] MEDS: FERROUS SULFATE 325 MG TAB PO SCH ×2 (08:52→16:56)
[2021-05-05] MEDS: UMECLIDINIUM/VILANTEROL 62.5/25MCG 7 PUFFS/INHALER INH SCH (08:52)
[2021-05-05] MEDS: TAMSULOSIN HCL 0.4 MG CAP PO SCH (08:53)
[2021-05-05] MEDS: carvediloL 12.5 MG TAB PO SCH ×2 (08:53→16:56)
[2021-05-05] MEDS: PANTOprazole 40 MG TAB PO SCH (08:53)
[2021-05-05] MEDS: BUMETANIDE 1 MG TAB PO SCH (08:53)
[2021-05-05] MEDS: SERTRALINE HCL 100 MG TABLET PO SCH (08:54)
[2021-05-05] MEDS: amLODIPine BESYLATE 5 MG TAB PO SCH (08:54)
[2021-05-05] MEDS: DULoxetine HCL 60 MG CAP PO SCH (08:54)
[2021-05-05] MEDS: SENNA 8.6 MG TAB PO PRN (08:54)
[2021-05-05] MEDS: ENOXAPARIN INJ 40 MG/0.4 ML SYR SQ SCH (08:55)
[2021-05-05 11:05] LABS: BUN Creatinine Ratio 28.1 (10-20); Calcium 9.2 mg/dl (8.5-10.1); Creatinine Clr Calc Pharmacy 93.5 ml/min; Est GFR (African American) 71.5 ml/min; Est GFR (Non-African American) 61.7 ml/min; Potassium 3.5 mmol/L (3.5-5.1)
[2021-05-05] MEDS ORDERED: PROMETHAZINE HCL 12.5 MG in SODIUM CHLORIDE 0.9% 50 ML IV PRN (13:55)
[2021-05-05 14:42] LABS: Basophils # (auto) 0.03 K/uL (0-0.2); Basophils % (auto) 0.3 %; Eosinophils # (auto) 0.21 K/uL (0-0.5); Hematocrit (blood only) 30.4 % (42-52); Hemoglobin 9.2 g/dL (14.0-18.0); Immature Granulocytes # (auto) 0.05 K/uL (0.00-0.02); Immature Granulocytes % (auto) 0.5 %; Lymphocytes # (auto) 1.42 K/uL (1.2-3.4); Lymphocytes % (auto) 13.6 %; Mean Corpuscular Hemoglobin 26.2 pg (25-34); Mean Corpuscular Hgb Conc 30.3 g/dL (32-36); Mean Corpuscular Volume 86.6 fL (80-100); Mean Platelet Volume 9.6 fL (7.4-10.4); Monocytes # (auto) 0.68 K/uL (0.11-0.59); Monocytes % (auto) 6.5 %; Neutrophils # (auto) 8.06 K/uL (1.4-6.5); Neutrophils % (auto) 77.1 %; Platelet Count 236 K/uL (130-400); RDW Standard Deviation 53.1 fL (36.4-46.3); Red Blood Count 3.51 M/uL (4.7-6.1); White Blood Count 10.45 K/uL (4.8-10.8)
--- NOTE | 2021-05-05 14:52 | Hospitalist Progress Note ---
Date of Service May 05, 2021 Assessment & Plan (1) Dizziness: Plan: per Dr. Montalvo's notes with addendum: Present on admission which complained of dizziness Possible related to medication versus high BP CT head showed no acute intracranial abnormality. Continue PT /OT eval Fall precaution -- dizziness resolved -- management of HTN per below Hypertension BP elevated Not sure if patient compliant with his medication Continue carvedilol, amlodipine with holding parameters -- BP not at goal added lisinopril 10mg po daily -- monitor BP Possible Cellulitis Xray of left foot showed no definite evidence of bony erosion to suggest osteomyelitis. There is a region of focal osteopenia in the distal great toe. -- Continue doxycycline twice daily day 12/14 Shortness of breath CTA chest showed no evidence of PE. Multifocal groundglass and reticular opacities COVID-19 negative and proBNP elevated above 12K on admission WBC mildly elevated Continue doxycycline that was started for possible cellulitis Continue Bumex daily -- respiratory status stable Elevated troponin Possible related to hypoxia Troponin 0.054 on admission Elevated BNP on admission Denies any chest pain Continue statin and carvedilol Adjustment disorder Psych was consulted As per psych patient does not appear to be active psychosis or suicidal ideation interfering with his medical decision making. Stable Chronic diastolic CHF (congestive heart failure): CHF with preserved EF Continue Bumex home dose -- euvolemic COPD (chronic obstructive pulmonary disease): Chronic respiratory failure. On 2L oxygen (patient was seen in the ER on room air) No signs exacerbation Continue home inhalers Diabetes mellitus, type II: Most recent hemoglobin A1c 6.9 on 04/29/21 Continue home Lantus NovoLog sliding scale per protocol Bilateral lower extremity pain Mostly due neuropathy -- gabapentin at 100 mg 3 times daily Coronary artery disease: Continue carvedilol, atorvastatin Anemia: Hgb 9.4 Last admission hemoglobin back in December dropped received 1 unit PRBCs on 01/01/2021 No signs of active bleeding. Denies melena, hematochezia Continue iron supplement -- Hg 9.2 Hyperlipidemia: Continue atorvastatin Depression: Continue duloxetine, sertraline FRANCIS (obstructive sleep apnea): Noncompliant with CPAP DVT Prophylaxis Lovenox CODE STATUS Full code Disposition Plan to discharge home with home health Admission and Anticipated Discharge Date Admission Date: May 01, 2021 Subjective ff up for dizziness, HTN etc seen resting in bed, comfortable states he feels weak today, also reports nausea no chest pain, dyspnea, palpitations, dizziness no cough, headache, abdominal pain, problems with urination or BM no other symptoms Review of Systems Review of Systems: all noted and negative except for above Physical Exam Physical Exam: General- oriented x 3, not in distress, speaks in sentences with no effort or accessory muscle use Eyes- anicteric Neck- no JVD Lungs- clear BS BL Heart- normal rate, regular rhythm; no murmurs Abdomen- normal bowel sounds, nondistended, soft, nontender Extremities- no pretibial edema, no calf tenderness BL feet: no changes no signs of infection Neuro- alert, oriented x 3; no gross focal neurologic deficits Skin- warm & dry Results & Data Results & Data ([facility]) Vital Signs (Past 12 Hours) Vital Signs Temp Pulse Resp BP Pulse Ox Pulse Ox 05/05/21 11:00 92 05/05/21 08:00 36.8 C 71 18 160/62 H 92 all noted and reviewed including below
[2021-05-05] MEDS: HYDROmorphone INJ 0.5 MG/0.5 ML SYR IV PRN (21:21)
[2021-05-05] MEDS: ATORVASTATIN 40 MG TAB PO SCH (21:24)
[2021-05-05] MEDS: MONTELUKAST SODIUM 10 MG TABLET PO SCH (21:24)
[2021-05-06] MEDS: INSULIN GLARGINE SOLOSTAR 100 UNITS/ML 3 ML PEN SQ SCH ×2 (08:13→20:50)
[2021-05-06] MEDS: INSULIN ASPART 100 UNITS/ML 3 ML PEN SC SCH ×4 (08:13→20:42)
[2021-05-06] MEDS: ENOXAPARIN INJ 40 MG/0.4 ML SYR SQ SCH (08:16)
[2021-05-06] MEDS: TAMSULOSIN HCL 0.4 MG CAP PO SCH (08:16)
[2021-05-06] MEDS: PANTOprazole 40 MG TAB PO SCH (08:16)
[2021-05-06] MEDS: lisinopril 10 MG TAB PO SCH (08:16)
[2021-05-06] MEDS: SERTRALINE HCL 100 MG TABLET PO SCH (08:16)
[2021-05-06] MEDS: DULoxetine HCL 60 MG CAP PO SCH (08:16)
[2021-05-06] MEDS: ADVANCED PROBIOTIC 1250 MG CAPSULE PO SCH (08:17)
[2021-05-06] MEDS: carvediloL 12.5 MG TAB PO SCH ×2 (08:17→18:02)
[2021-05-06] MEDS: FERROUS SULFATE 325 MG TAB PO SCH ×2 (08:17→18:02)
[2021-05-06] MEDS: GABAPENTIN 100 MG CAP PO SCH ×3 (08:17→20:50)
[2021-05-06] MEDS: BUMETANIDE 1 MG TAB PO SCH (08:18)
[2021-05-06] MEDS: amLODIPine BESYLATE 5 MG TAB PO SCH (08:18)
[2021-05-06] MEDS: UMECLIDINIUM/VILANTEROL 62.5/25MCG 7 PUFFS/INHALER INH SCH (09:21)
--- NOTE | 2021-05-06 18:28 | Hospitalist Progress Note ---
Date of Service May 06, 2021 Assessment & Plan (1) Dizziness: Plan: per Dr. Montalvo's notes with addendum: Present on admission which complained of dizziness Possible related to medication versus high BP CT head showed no acute intracranial abnormality. Continue PT /OT eval Fall precaution -- dizziness resolved -- management of HTN per below Hypertension BP elevated Not sure if patient compliant with his medication Continue carvedilol, amlodipine with holding parameters -- BP not at goal added lisinopril 10mg po daily -- BP improving Weakness --likely from deconditioning -- PT/OT Possible Cellulitis Xray of left foot showed no definite evidence of bony erosion to suggest osteomyelitis. There is a region of focal osteopenia in the distal great toe. -- completed doxycycline twice daily day 12/14 Shortness of breath CTA chest showed no evidence of PE. Multifocal groundglass and reticular opacit ies COVID-19 negative and proBNP elevated above 12K on admission WBC mildly elevated Continue Bumex daily -- respiratory status stable Elevated troponin Possible related to hypoxia Troponin 0.054 on admission Elevated BNP on admission Denies any chest pain Continue statin and carvedilol Adjustment disorder Psych was consulted As per psych patient does not appear to be active psychosis or suicidal ideation interfering with his medical decision making. Stable Chronic diastolic CHF (congestive heart failure): CHF with preserved EF Continue Bumex home dose -- euvolemic COPD (chronic obstructive pulmonary disease): Chronic respiratory failure. On 2L oxygen (patient was seen in the ER on room air) No signs exacerbation Continue home inhalers Diabetes mellitus, type II: Most recent hemoglobin A1c 6.9 on 04/29/21 Continue home Lantus NovoLog sliding scale per protocol Bilateral lower extremity pain Mostly due neuropathy -- gabapentin at 100 mg 3 times daily Coronary artery disease: Continue carvedilol, atorvastatin Anemia: Hgb 9.4 Last admission hemoglobin back in December dropped received 1 unit PRBCs on 01/01/2021 No signs of active bleeding. Denies melena, hematochezia Continue iron supplement -- Hg 9.2 Hyperlipidemia: Continue atorvastatin Depression: Continue duloxetine, sertraline FRANCIS (obstructive sleep apnea): Noncompliant with CPAP DVT Prophylaxis Lovenox CODE STATUS Full code Disposition Plan to discharge home with home health Admission and Anticipated Discharge Date Admission Date: May 01, 2021 Subjective ff up for dizziness, HTN, etc seen resting in bed, sitting up states he feels weak today no fever/chills, changes with breathing, abdominal pain, problems with urination/bm reports pain on the r wrist, worse with movement no other symptoms Review of Systems Review of Systems: all noted and negative except for above Physical Exam Physical Exam: General- oriented x 3, not in distress, speaks in sentences with no effort or accessory muscle use Eyes- anicteric Neck- no JVD Lungs- clear BS BL no rales/wheezing Heart- normal rate, regular rhythm; no murmurs Abdomen- normal bowel sounds, nondistended, soft, nontender Extremities- no pretibial edema, no calf tenderness r wrist: (+) tinel's sign Neuro- alert, oriented x 3; no gross focal neurologic deficits Skin- warm & dry Results & Data Results & Data ([facility]) Vital Signs (Past 12 Hours) Vital Signs Temp Pulse Resp BP BP Pulse Ox Pulse Ox 05/06/21 16:41 68 162/78 H 05/06/21 15:13 36.5 C 58 L 20 175/82 H 95 05/06/21 11:00 92 05/06/21 07:47 36.6 C 54 L 18 132/68 91 all noted and reviewed including below
[2021-05-06] MEDS: MONTELUKAST SODIUM 10 MG TABLET PO SCH (20:50)
[2021-05-06] MEDS: ATORVASTATIN 40 MG TAB PO SCH (20:50)
[2021-05-07] MEDS: oxyCODONE HCL IR 5 MG TAB (IMMEDIATE RELEASE) PO PRN ×3 (02:19→15:50)
[2021-05-07] MEDS: IPRATROPIUM BROMIDE NEB SOLN 0.02% 2.5 ML VIAL INH PRN (03:08)
[2021-05-07] MEDS: LEVALBUTEROL 1.25MG/0.5ML NEB INH PRN (03:08)
[2021-05-07] MEDS: amLODIPine BESYLATE 5 MG TAB PO SCH (08:09)
[2021-05-07] MEDS: GABAPENTIN 100 MG CAP PO SCH ×3 (08:09→20:26)
[2021-05-07] MEDS: BUMETANIDE 1 MG TAB PO SCH (08:29)
[2021-05-07] MEDS: carvediloL 12.5 MG TAB PO SCH ×2 (08:29→17:54)
[2021-05-07] MEDS: DULoxetine HCL 60 MG CAP PO SCH (08:29)
[2021-05-07] MEDS: SERTRALINE HCL 100 MG TABLET PO SCH (08:30)
[2021-05-07] MEDS: lisinopril 10 MG TAB PO SCH (08:30)
[2021-05-07] MEDS: PANTOprazole 40 MG TAB PO SCH (08:30)
[2021-05-07] MEDS: TAMSULOSIN HCL 0.4 MG CAP PO SCH (08:30)
[2021-05-07] MEDS: FERROUS SULFATE 325 MG TAB PO SCH ×2 (08:30→17:54)
[2021-05-07] MEDS: ADVANCED PROBIOTIC 1250 MG CAPSULE PO SCH (08:30)
[2021-05-07] MEDS: ENOXAPARIN INJ 40 MG/0.4 ML SYR SQ SCH (08:34)
[2021-05-07] MEDS: INSULIN GLARGINE SOLOSTAR 100 UNITS/ML 3 ML PEN SQ SCH ×2 (08:35→20:28)
[2021-05-07] MEDS: INSULIN ASPART 100 UNITS/ML 3 ML PEN SC SCH ×4 (08:41→20:31)
[2021-05-07] MEDS: UMECLIDINIUM/VILANTEROL 62.5/25MCG 7 PUFFS/INHALER INH SCH (08:42)
[2021-05-07 10:23] LABS: Basophils # (auto) 0.03 K/uL (0-0.2); Basophils % (auto) 0.3 %; Eosinophils # (auto) 0.17 K/uL (0-0.5); Eosinophils % (auto) 1.7 %; Hematocrit (blood only) 31.7 % (42-52); Hemoglobin 9.8 g/dL (14.0-18.0); Immature Granulocytes # (auto) 0.02 K/uL (0.00-0.02); Immature Granulocytes % (auto) 0.2 %; Lymphocytes # (auto) 1.42 K/uL (1.2-3.4); Lymphocytes % (auto) 14.4 %; Mean Corpuscular Hemoglobin 26.6 pg (25-34); Mean Corpuscular Hgb Conc 30.9 g/dL (32-36); Mean Corpuscular Volume 85.9 fL (80-100); Mean Platelet Volume 9.5 fL (7.4-10.4); Monocytes # (auto) 0.67 K/uL (0.11-0.59); Monocytes % (auto) 6.8 %; Neutrophils # (auto) 7.54 K/uL (1.4-6.5); Neutrophils % (auto) 76.6 %; Platelet Count 232 K/uL (130-400); RDW Coefficient of Variation 16.7 % (11.5-14.5); RDW Standard Deviation 51.5 fL (36.4-46.3); Red Blood Count 3.69 M/uL (4.7-6.1); White Blood Count 9.85 K/uL (4.8-10.8)
[2021-05-07 10:41] LABS: BUN Creatinine Ratio 23.8 (10-20); Calcium 9.2 mg/dl (8.5-10.1); Creatinine Clr Calc Pharmacy 113.9 ml/min; Est GFR (African American) 90.7 ml/min; Est GFR (Non-African American) 78.2 ml/min; Potassium 3.5 mmol/L (3.5-5.1)
[2021-05-07] MEDS: LIDOCAINE 5% 1 PATCH TD SCH (12:06)
[2021-05-07] MEDS ORDERED: predniSONE 20 MG TAB PO STA (12:15)
[2021-05-07] MEDS ORDERED: KETOROLAC 30 MG/ML VIAL IV ONE (12:15)
--- NOTE | 2021-05-07 12:17 | Hospitalist Progress Note ---
Date of Service May 07, 2021 Assessment & Plan (1) Dizziness: Plan: per Dr. Montalvo's notes with addendum: Present on admission which complained of dizziness Possible related to medication versus high BP CT head showed no acute intracranial abnormality. Continue PT /OT eval Fall precaution -- dizziness resolved -- management of HTN per below Hypertension BP elevated Not sure if patient compliant with his medication Continue carvedilol, amlodipine with holding parameters -- BP not at goal added lisinopril 10mg po daily -- BP elevated likely secondary to pain Continue to monitor Add as needed hydralazine Weakness --likely from deconditioning -- PT/OT Possible Cellulitis of the left foot Xray of left foot showed no definite evidence of bony erosion to suggest osteomyelitis. There is a region of focal osteopenia in the distal great toe. -- completed doxycycline twice daily day 12/14 Right elbow pain, possible gout --Above ultrasound and x-ray ordered --Cannot take colchicine as patient taking carvedilol-contraindicated --Start prednisone 40 mg daily Toradol IV given Lidoderm patch, ice pack --We will consult Ortho Shortness of breath CTA chest showed no evidence of PE. Multifocal groundglass and reticular opacities COVID-19 negative and proBNP elevated above 12K on admission WBC mildly elevated Continue Bumex daily -- respiratory status stable Elevated troponin Possible related to hypoxia Troponin 0.054 on admission Elevated BNP on admission Denies any chest pain Continue statin and carvedilol Adjustment disorder Psych was consulted As per psych patient does not appear to be active psychosis or suicidal ideation interfering with his medical decision making. Stable Chronic diastolic CHF (congestive heart failure): CHF with preserved EF Continue Bumex home dose -- euvolemic COPD (chronic obstructive pulmonary disease): Chronic respiratory failure. On 2L oxygen (patient was seen in the ER on room air) No signs exacerbation Continue home inhalers Diabetes mellitus, type II: Most recent hemoglobin A1c 6.9 on 04/29/21 Continue home Lantus NovoLog sliding scale per protocol Bilateral lower extremity pain Mostly due neuropathy -- gabapentin at 100 mg 3 times daily Coronary artery disease: Continue carvedilol, atorvastatin Anemia: Hgb 9.4 Last admission hemoglobin back in December dropped received 1 unit PRBCs on 01/01/2021 No signs of active bleeding. Denies melena, hematochezia Continue iron supplement -- Hg 9.2 Hyperlipidemia: Continue atorvastatin Depression: Continue duloxetine, sertraline FRANCIS (obstructive sleep apnea): Noncompliant with CPAP DVT Prophylaxis Lovenox CODE STATUS Full code Disposition Plan to discharge home with home health Admission and Anticipated Discharge Date Admission Date: May 01, 2021 Subjective Follow-up for dizziness, hypertension, etc. Resting in bed, sitting up, not in distress Patient still feels on the weak side Reports severe right elbow pain which started last night Poor range of motion due to pain No fevers or chills no chest pain, dyspnea, palpitations, dizziness No abdominal pain, nausea vomiting No other symptoms Review of Systems Review of Systems: all noted and negative except for above Physical Exam Physical Exam: General- oriented x 3, not in distress, speaks in sentences with no effort or accessory muscle use Eyes- anicteric Neck- no JVD Lungs- clear BS, no crackles or wheezing bilaterally Heart- normal rate, regular rhythm; no murmurs Abdomen- normal bowel sounds, nondistended, soft, nontender Extremities- no pretibial edema, no calf tenderness Right elbow-positive moderate edema, severe tenderness, no erythema, moderate warmth, full range of motion due to pain Neuro- alert, oriented x 3; no gross focal neurologic deficits Skin- warm & dry Results & Data Results & Data ([facility]) Vital Signs (Past 12 Hours) Vital Signs Temp Pulse Resp BP Pulse Ox 05/07/21 06:10 36.5 C 58 L 16 165/79 H 93 05/07/21 03:08 60 20 98 05/07/21 01:48 36.9 C 58 L 18 163/75 H 98 all noted and reviewed including below
--- NOTE | 2021-05-07 12:54 | XRay Report ---
XR elbow RT min 3V routine CLINICAL HISTORY: Right elbow pain. COMPARISON STUDY: No previous studies for comparison. TECHNIQUE: 3 right elbow views FINDINGS: Bones: There is no evidence for an acute fracture or dislocation. There is no lytic or blastic lesion . Joints: The joint spaces are maintained. There is no evidence for an intra-articular effusion or elev ation of the fat pads. The bones are in anatomic alignment. Soft tissues: There is mild soft tissue swelling surrounding the elbow. There is no radiopaque foreig n body. IMPRESSION: No acute osseous pathology. Surrounding soft tissue swelling. ACT 112: Negative or not required by law. Electronically signed by: Mateo Ovalle M.D. 05/07/2021 12:52 PM
--- NOTE | 2021-05-07 15:38 | Ultrasound Report ---
US extremity nonvascular comp right elbow CLINICAL HISTORY: right elbow pain and edema, evaluate for gout TECHNIQUE: Real-time grayscale sonographic images of the right elbow were obtained. Comparison: Standard elbow radiographs from 04/29/2021 FINDINGS: There is a well-defined fluid collection present along the anterolateral aspect of the elbo w measuring approximately 3.8 cm in greatest diameter. This corresponds to the swelling seen radiogra phically. No soft tissue calcifications are seen radiographically or by ultrasound. IMPRESSION: Focal subcutaneous fluid collection corresponding to the soft tissue swelling seen radiog raphically. The presence or absence of gout cannot be determined by this study. ACT 112: Negative or not required by law. Electronically signed by: Mateo Ovalle M.D. 05/07/2021 3:37 PM
[2021-05-07] MEDS: DICLOFENAC SOD 1% GEL 100 GM TUBE EXT SCH (20:26)
[2021-05-07] MEDS: MONTELUKAST SODIUM 10 MG TABLET PO SCH (20:27)
[2021-05-07] MEDS: ATORVASTATIN 40 MG TAB PO SCH (20:27)
[2021-05-07] MEDS: HYDROmorphone INJ 0.5 MG/0.5 ML SYR IV PRN (20:31)
[2021-05-08] MEDS: DICLOFENAC SOD 1% GEL 100 GM TUBE EXT SCH ×2 (07:54→21:45)
[2021-05-08] MEDS: UMECLIDINIUM/VILANTEROL 62.5/25MCG 7 PUFFS/INHALER INH SCH (08:51)
[2021-05-08] MEDS: SERTRALINE HCL 100 MG TABLET PO SCH (08:52)
[2021-05-08] MEDS: ENOXAPARIN INJ 40 MG/0.4 ML SYR SQ SCH (08:52)
[2021-05-08] MEDS: PANTOprazole 40 MG TAB PO SCH (08:52)
[2021-05-08] MEDS: ADVANCED PROBIOTIC 1250 MG CAPSULE PO SCH (08:52)
[2021-05-08] MEDS: DULoxetine HCL 60 MG CAP PO SCH (08:52)
[2021-05-08] MEDS: carvediloL 12.5 MG TAB PO SCH ×2 (08:52→16:23)
[2021-05-08] MEDS: BUMETANIDE 1 MG TAB PO SCH (08:53)
[2021-05-08] MEDS: GABAPENTIN 100 MG CAP PO SCH ×3 (08:53→21:55)
[2021-05-08] MEDS: FERROUS SULFATE 325 MG TAB PO SCH ×2 (08:53→16:22)
[2021-05-08] MEDS: lisinopril 10 MG TAB PO SCH (08:53)
[2021-05-08] MEDS: TAMSULOSIN HCL 0.4 MG CAP PO SCH (08:53)
[2021-05-08] MEDS: amLODIPine BESYLATE 5 MG TAB PO SCH (08:53)
[2021-05-08] MEDS: INSULIN GLARGINE SOLOSTAR 100 UNITS/ML 3 ML PEN SQ SCH ×2 (08:54→21:49)
[2021-05-08] MEDS: LIDOCAINE 5% 1 PATCH TD SCH (08:54)
[2021-05-08] MEDS: INSULIN ASPART 100 UNITS/ML 3 ML PEN SC SCH ×4 (08:55→21:51)
--- NOTE | 2021-05-08 10:29 | Hospitalist Progress Note ---
Date of Service May 08, 2021 Assessment & Plan (1) Dizziness: Plan: -Patient initially presented with complaints of dizziness, felt to be due to uncontrolled hypertension vs. medications -Dizziness resolved -CT head negative for acute intracranial findings -Fall precautions, PT/OT Hypertension -Presented with uncontrolled blood pressure -Home carvedilol and amlodipine continued, lisinopril 10 mg daily added on 05/04 -BP remains elevated, will increase lisinopril to 20 mg Generalized Weakness -Likely due to deconditioning -PT/OT Possible Cellulitis of the left foot Xray of left foot showed no definite evidence of bony erosion to suggest osteomyelitis. There is a region of focal osteopenia in the distal great toe. -Completed 7-day course of doxycycline Right elbow pain -X-ray negative for acute osseous findings, US - Focal subcutaneous fluid collection -Prednisone 40 mg x 1 dose on 05/07 for concern of gout; cannot take colchicine since it is contraindicated with carvedilol -Ortho consult, input appreciated Shortness of breath CTA chest showed no evidence of PE. Multifocal groundglass and reticular opacities COVID-19 negative and proBNP elevated above 12K on admission Received Lasix 40 mg IV w/ albumin x 1 dose on admission Respiratory status stable Elevated troponin Possible related to acute CHF, demand ischemia Troponin 0.054 -> 0.050 Elevated BNP on admission No chest pain, EKG nonischemic Adjustment disorder Psych was consulted As per psych patient does not appear to be active psychosis or suicidal ideation interfering with his medical decision making. Stable Chronic diastolic CHF (congestive heart failure): CHF with preserved EF Received IV Lasix on admission as above Continue Bumex home dose Appears euvolemic COPD (chronic obstructive pulmonary disease): Chronic respiratory failure on 2L oxygen, however patient has been saturating well on room air No signs exacerbation Continue home inhalers Diabetes mellitus, type II: Most recent hemoglobin A1c 6.9 on 04/29/21 Lantus and NovoLog per protocol Bilateral lower extremity pain Mostly due neuropathy -- gabapentin at 100 mg 3 times daily Coronary artery disease: Continue carvedilol, atorvastatin Anemia: -Chronic, Hgb has remained at recent baseline -Hgb 9.8 on 05/07 -Continue iron supplement Hyperlipidemia: Continue atorvastatin Depression: Continue duloxetine, sertraline FRANCIS (obstructive sleep apnea): Noncompliant with CPAP DVT Prophylaxis Lovenox CODE STATUS Full code Disposition Pending, plan on repeat PT/OT eval's today. DC home with home health vs. placement. Admission and Anticipated Discharge Date Admission Date: May 01, 2021 Supervising Physician Co-Signing Physician Notes Attending Addendum: delayed entry date of service noted above care coordinated with [facility] Pily Bishop please refer to her notes for full details, I agree with her notes patient seen and examined, records reviewed by myself as well on exam, patient seen resting in bed, comfortable states R elbow pain is improving no dizziness, weakness improving no other symptoms VS noted and reviewed oriented x 3, not in distress, speaks in sentences with no effort nor accessory muscle use normal rate, regular rhythm, no murmurs clear BS BL non distended, soft, nontender no bipedal edema, erythema, warmth R elbow- mild edema, no warmth/erythema, better ROM no neuro deficits all labs noted and reviewed ASSESSMENT AND PLAN> GOUT ATTACK R ELBOW -resolving continue Prednisone taper HTN - continue to monitor other diagnoses and plan of care as per TOÑA Bishop's notes Juarez Pryor MD Subjective Patient seen and examined. Follow-up for dizziness, elevated blood pressure. Difficult to obtain history due to irritability and sarcasm. Does not seem to have any complaints. Right elbow pain improved. Physical Exam Constitutional: WD/WN, vitals as above + obese Respiratory: normal respiratory effort, lungs clear to auscultation Cardiovascular: Rate/Rhythm: regular rate and regular rhythm Vessels: normal peripheral pulses Extremities: + edema (+1-2 edema BLE) Gastrointestinal (Abdomen): Percussion/Palpation: abdomen soft; abdomen nontender Musculoskeletal: Right wrist in splint; full ROM to right elbow, mild edema, no erythema or warmth appreciated Skin: no rashes, warm and dry Neurologic: no focal motor deficits Psychiatric: Orientation: alert and oriented x 3 Affect: + irritable affect (Sarcastic) Results & Data Results & Data ([facility]) Vital Signs (Past 12 Hours) Vital Signs Temp Pulse Resp BP Pulse Ox 05/08/21 06:08 36.4 C L 61 16 177/81 H 94
[2021-05-08] MEDS ORDERED: lisinopril 10 MG TAB PO ONE (10:30)
--- NOTE | 2021-05-08 14:13 | Orthopedic Consultation ---
Date of Service May 08, 2021 Assessment & Plan (1) Right elbow pain: He was seen and examined by Dr. Stephens. He could possibly have some early gout. No signs of infection. No significant swelling at this time though. He has been using the lidoderm patch, as well as toradol and prednisone. No further orthopedic intervention or recommendations at this time. History of Present Illness Reason for Consultation: . Requesting Physician: . Attending Physician: Juarez Pryor MD . 66 year old patient now approx 4 months s/p I and D of right hand for septic arthritis, flexor tenosynovitis, who we are now consulted for regarding right elbow pain. He states his elbow began hurting yesterday. No injury or trauma. Describes generalized elbow pain. Xrays were taken. He was given some IV toradol, prednisone, and lidoderm patch. Allergies Allergy/AdvReac Type Severity Reaction Status Date / Time No Known Allergies Allergy Verified 04/28/21 19:50 Home Medications Medication Instructions Recorded Confirmed Type acetaminophen 325 mg tablet 650 mg PO Q4 PRN 11/29/20 04/28/21 History (Tylenol) atorvastatin 40 mg tablet 40 mg PO HS 11/29/20 04/29/21 History docusate sodium 100 mg capsule 100 mg PO BID PRN 11/29/20 04/28/21 History (Stool Softener) montelukast 10 mg tablet 10 mg PO HS 11/29/20 04/29/21 History (Singulair) polyethylene glycol 3350 17 gram 17 g PO DAILY PRN 11/29/20 04/28/21 History oral powder packet (Miralax) sertraline 100 mg tablet (Zoloft) 100 mg PO DAILY 11/29/20 04/29/21 History tamsulosin 0.4 mg capsule (Flomax) 0.8 mg PO DAILY 11/29/20 04/29/21 History umeclidinium 62.5 mcg-vilanterol 1 inh INHALATION DAILY 11/29/20 04/29/21 History 25 mcg/actuation powdr for inhalation (Anoro Ellipta) sennosides 8.6 mg capsule (senna) 8.6 mg PO DAILY PRN 02/17/21 04/28/21 History oxycodone 5 mg tablet (Roxicodone) 5 mg PO Q12H PRN 5 Days #10 tab 02/23/21 04/28/21 Rx bumetanide 1 mg tablet 1 mg PO DAILY 04/28/21 04/29/21 History albuterol sulfate 90 mcg/actuation 2 puff INHALATION QID PRN 04/29/21 04/29/21 History aerosol inhaler (Ventolin HFA) amlodipine 5 mg tablet 5 mg PO DAILY 04/29/21 04/29/21 History carvedilol 12.5 mg tablet 12.5 mg PO BID 04/29/21 04/29/21 History duloxetine 60 mg capsule,delayed 60 mg PO DAILY 04/29/21 04/29/21 History release gabapentin 100 mg capsule 200 mg PO TID 04/29/21 04/29/21 History pantoprazole 40 mg tablet,delayed 40 mg PO DAILY 04/29/21 04/29/21 History release potassium chloride 20 mEq 20 meq PO DAILY 04/29/21 04/29/21 History tablet,extended release(part/cryst) Past Med/Surg History Medical History Abnormal posture Ambulatory dysfunction Chronic diastolic CHF (congestive heart failure) Chronic respiratory failure with hypoxia Coronary artery disease Depression Diabetes mellitus, type II Gout History of blood transfusion History of COVID-19 Hyperlipidemia Hypertension Mood disorder Morbid obesity FRANCIS (obstructive sleep apnea) Septic arthritis Ventricular tachycardia Surgical History Cataract extraction status, unspecified eye H/O knee surgery History of incision and drainage Family History Other Throat cancer Social History Smoking Status: Never smoker Tobacco Type: Cigarettes Second Hand Exposure: Yes (Pts father); Hx Alcohol Use: Yes Alcohol type: beer Hx Substance Use: Yes Last Used Substance: Days (ago) Preferred Language: Lao Communication Ability: Effective Hat Copyist Required: No Beliefs That Will Affect Care: None marital status: Single Current Living Situation: Alone Current Living Situation Comment: [facility] How many Children do You have: 0 Feels Safe at Home: Yes Assistive Devices: Walker Review of Systems All systems reviewed & are unremarkable except as noted in HPI & below. Physical Exam . He's alert. NAD. Right upper extremity: Lidoderm patch removed from elbow. Skin intact. No swelling in the olecranon bursa. No joint effusion. Full elbow ROM. No redness or other discoloration. He has scars on his right hand from prior surgery. Able to flex and extend his fingers, with some stiffness particularly with flexion. Results & Data Results & Data Laboratory Results . Diagnostic Findings . xrays of right elbow show no fracture or dislocation. No significant arthritis. PG Care Time/CCT Total # of Minutes Spent Total Time Spent with Patient: Total time spent is greater than 50% in coordination of care (as documented) at patient's floor/unit and/or counseling patient: Coding Level of Care Code 06391 Inpt Consult Level 3 Diagnoses Right elbow pain M25.521
[2021-05-08] MEDS ORDERED: predniSONE 10 MG TABLET PO SCH (15:15)
[2021-05-08] MEDS: oxyCODONE HCL IR 5 MG TAB (IMMEDIATE RELEASE) PO PRN (19:33)
[2021-05-08] MEDS: MONTELUKAST SODIUM 10 MG TABLET PO SCH (21:54)
[2021-05-08] MEDS: ATORVASTATIN 40 MG TAB PO SCH (21:54)
[2021-05-09] MEDS ORDERED: FLUARIX QUADRIVALENT 0.5 ML SYR IM ONE (08:00)
[2021-05-09] MEDS: DICLOFENAC SOD 1% GEL 100 GM TUBE EXT SCH ×2 (08:34→20:41)
[2021-05-09] MEDS: PANTOprazole 40 MG TAB PO SCH (08:35)
[2021-05-09] MEDS: LIDOCAINE 5% 1 PATCH TD SCH (08:35)
[2021-05-09] MEDS: BUMETANIDE 1 MG TAB PO SCH (08:35)
[2021-05-09] MEDS: ENOXAPARIN INJ 40 MG/0.4 ML SYR SQ SCH (08:36)
[2021-05-09] MEDS: SERTRALINE HCL 100 MG TABLET PO SCH (08:36)
[2021-05-09] MEDS: ADVANCED PROBIOTIC 1250 MG CAPSULE PO SCH (08:36)
[2021-05-09] MEDS: TAMSULOSIN HCL 0.4 MG CAP PO SCH (08:37)
[2021-05-09] MEDS: lisinopril 20 MG TAB PO SCH (08:37)
[2021-05-09] MEDS: DULoxetine HCL 60 MG CAP PO SCH (08:37)
[2021-05-09] MEDS: amLODIPine BESYLATE 5 MG TAB PO SCH (08:37)
[2021-05-09] MEDS: carvediloL 12.5 MG TAB PO SCH ×2 (08:37→17:38)
[2021-05-09] MEDS: FERROUS SULFATE 325 MG TAB PO SCH ×2 (08:39→17:38)
[2021-05-09] MEDS: GABAPENTIN 100 MG CAP PO SCH ×3 (08:39→20:52)
[2021-05-09] MEDS: UMECLIDINIUM/VILANTEROL 62.5/25MCG 7 PUFFS/INHALER INH SCH (08:41)
[2021-05-09] MEDS: INSULIN GLARGINE SOLOSTAR 100 UNITS/ML 3 ML PEN SQ SCH ×2 (08:41→20:48)
[2021-05-09] MEDS: INSULIN ASPART 100 UNITS/ML 3 ML PEN SC SCH ×4 (08:43→20:50)
[2021-05-09] MEDS ORDERED: predniSONE 20 MG TAB PO SCH (09:00)
[2021-05-09] MEDS ORDERED: hydrALAZINE HCL 20 MG/ML VIAL IV ONE (11:01)
[2021-05-09] MEDS ORDERED: lisinopril 10 MG TAB PO STA (11:07)
--- NOTE | 2021-05-09 16:51 | Hospitalist Progress Note ---
Date of Service May 09, 2021 Assessment & Plan (1) Dizziness: Plan: -Patient initially presented with complaints of dizziness, felt to be due to uncontrolled hypertension vs. medications -Dizziness resolved -CT head negative for acute intracranial findings -Fall precautions, PT/OT Hypertension -Presented with uncontrolled blood pressure -Home carvedilol and amlodipine continued, lisinopril 10 mg daily added on 05/04 and increased to 20 mg daily on 05/08 -BP remains elevated today, increasing lisinopril to 30 mg daily Generalized Weakness -Likely due to deconditioning -PT/OT Possible Cellulitis of the left foot -Xray of left foot showed no definite evidence of bony erosion to suggest osteomyelitis. There is a region of focal osteopenia in the distal great toe. -Completed 7-day course of doxycycline Right elbow pain -X-ray negative for acute osseous findings, US - Focal subcutaneous fluid collection -Prednisone 40 mg x 1 dose on 05/07 for concern of gout; cannot take colchicine since it is contraindicated with carvedilol -Ortho consult, input appreciated -no intervention recommended -Continue short prednisone taper, Lidoderm patch Shortness of breath CTA chest showed no evidence of PE. Multifocal groundglass and reticular opacities COVID-19 negative and proBNP elevated above 12K on admission Received Lasix 40 mg IV w/ albumin x 1 dose on admission Respiratory status stable Elevated troponin Possible related to acute CHF, demand ischemia Troponin 0.054 -> 0.050 Elevated BNP on admission No chest pain, EKG nonischemic Adjustment disorder Psych was consulted As per psych patient does not appear to be active psychosis or suicidal i deation interfering with his medical decision making. Stable Chronic diastolic CHF (congestive heart failure): CHF with preserved EF Received IV Lasix on admission as above Continue Bumex home dose Appears euvolemic COPD (chronic obstructive pulmonary disease): Chronic respiratory failure on 2L oxygen, however patient has been saturating well on room air No signs exacerbation Continue home inhalers Diabetes mellitus, type II: Most recent hemoglobin A1c 6.9 on 04/29/21 Lantus and NovoLog per protocol Patient denies prior history of diabetes and taking prior diabetic medications. At discharge, will place patient on Metformin 500 mg twice daily family educator consulted who instructed the patient on home glucose monitoring. Will encourage patient to keep a log to provide PCP. Bilateral lower extremity pain Mostly due neuropathy Continue home dose of gabapentin 200 mg 3 times daily Coronary artery disease: Continue carvedilol, atorvastatin Anemia: -Chronic, Hgb has remained at recent baseline -Hgb 9.8 on 05/07 -Started on iron supplement this admission Hyperlipidemia: Continue atorvastatin Depression: Continue duloxetine, sertraline FRANCIS (obstructive sleep apnea): Noncompliant with CPAP DVT Prophylaxis Lovenox CODE STATUS Full code Disposition Stable for discharge home. Patient declining rehab. Agreeable to home health which has been arranged. Patient unsure if he had his routine home medications at home, meds to beds provided home medications and new medications. Patient also provided with home glucose monitor, test strips, lancets. Patient reports he does not have anybody to pick him up from the hospital today, agreeable to pay for transport home however reports he does not have a joseph and cannot get into his home this evening. Plan for discharge tomorrow. Admission and Anticipated Discharge Date Admission Date: May 01, 2021 Supervising Physician Co-Signing Physician Notes Attending Addendum: delayed entry date of service noted above care coordinated with CNRELL Bishop please refer to her notes for full details, I agree with her notes patient seen and examined, records reviewed by myself as well on exam, patient seen resting in bed, comfortable states R elbow pain is much better no chest pain, dyspnea, palpitations, dizziness no other symptoms VS noted and reviewed oriented x 3, not in distress, speaks in sentences with no effort nor accessory muscle use normal rate, regular rhythm, no murmurs clear breath sounds bilaterally non distended, soft, nontender no bipedal edema, erythema, warmth R elbow- no edema/warmth/erythema no neuro deficits all labs noted and reviewed ASSESSMENT AND PLAN> GOUT ATTACK R ELBOW -resolving continue Prednisone taper HTN - Lisinopril increased to 30mg daily other diagnoses and plan of care as per TOÑA Bishop's notes Juarez Pryor MD Subjective Patient seen and examined. Follow-up for dizziness, elevated blood pressure. Offers no complaints. Discussed discharge. Patient declining rehab however agreeable to home health. Dizziness resolved. Denies chest pain or shortness of breath. Right elbow pain resolved as well. No abdominal pain or nausea. Physical Exam Constitutional: WD/WN, vitals as above + obese Respiratory: normal respiratory effort; no respiratory distress Auscultation: + diminished lung sounds Cardiovascular: Rate/Rhythm: regular rate and regular rhythm Vessels: normal peripheral pulses Extremities: + edema (+1-2 edema BLE) Gastrointestinal (Abdomen): Percussion/Palpation: abdomen soft; abdomen nontender Skin: no rashes, warm and dry Some scattered abrasions noted over toes and BLE Neurologic: no focal motor deficits Psychiatric: Orientation: alert and oriented x 3 Affect: + irritable affect (Sarcastic at times) Results & Data Results & Data ([facility]) Vital Signs (Past 12 Hours) Vital Signs Temp Pulse Resp BP Pulse Ox 05/09/21 16:06 36.9 C 72 16 137/79 95 05/09/21 13:15 106/66 05/09/21 10:56 177/68 H 05/09/21 08:45 61 05/09/21 07:54 36.3 C L 52 L 16 196/79 H 96
[2021-05-09] MEDS: oxyCODONE HCL IR 5 MG TAB (IMMEDIATE RELEASE) PO PRN (19:43)
[2021-05-09] MEDS: MONTELUKAST SODIUM 10 MG TABLET PO SCH (20:52)
[2021-05-09] MEDS: ATORVASTATIN 40 MG TAB PO SCH (20:52)
[2021-05-10] MEDS ORDERED: predniSONE 10 MG TABLET PO SCH (09:00)
[2021-05-10] MEDS: GABAPENTIN 100 MG CAP PO SCH ×2 (09:19→14:00)
[2021-05-10] MEDS: carvediloL 12.5 MG TAB PO SCH (09:29)
[2021-05-10] MEDS: FERROUS SULFATE 325 MG TAB PO SCH (09:29)
[2021-05-10] MEDS: amLODIPine BESYLATE 5 MG TAB PO SCH (09:30)
[2021-05-10] MEDS: BUMETANIDE 1 MG TAB PO SCH (09:30)
[2021-05-10] MEDS: DICLOFENAC SOD 1% GEL 100 GM TUBE EXT SCH (09:31)
[2021-05-10] MEDS: DULoxetine HCL 60 MG CAP PO SCH (09:31)
[2021-05-10] MEDS: ENOXAPARIN INJ 40 MG/0.4 ML SYR SQ SCH (09:32)
[2021-05-10] MEDS: INSULIN GLARGINE SOLOSTAR 100 UNITS/ML 3 ML PEN SQ SCH (09:34)
[2021-05-10] MEDS: INSULIN ASPART 100 UNITS/ML 3 ML PEN SC SCH ×2 (09:37→13:58)
[2021-05-10] MEDS: LIDOCAINE 5% 1 PATCH TD SCH (09:38)
[2021-05-10] MEDS: ADVANCED PROBIOTIC 1250 MG CAPSULE PO SCH (09:38)
[2021-05-10] MEDS: lisinopril 20 MG TAB PO SCH (09:40)
[2021-05-10] MEDS: SERTRALINE HCL 100 MG TABLET PO SCH (09:40)
[2021-05-10] MEDS: PANTOprazole 40 MG TAB PO SCH (09:40)
[2021-05-10] MEDS: TAMSULOSIN HCL 0.4 MG CAP PO SCH (09:41)
[2021-05-10] MEDS: UMECLIDINIUM/VILANTEROL 62.5/25MCG 7 PUFFS/INHALER INH SCH (09:41)
[2021-05-10] MEDS: oxyCODONE HCL IR 5 MG TAB (IMMEDIATE RELEASE) PO PRN (09:45)
--- NOTE | 2021-05-10 17:32 | Discharge Summary ---
Date of Service May 10, 2021 Admission HPI Per Admitting Provider Patient is 66-year-old male with PMH COVID-19 in 10/2020, DM II, CKD III, chronic respiratory failure on 2L O2, COPD, CHF with preserved EF, HTN, HLD, FRANCIS intolerant to CPAP, morbid obesity, anemia presented to ER with c/odizziness x 1 week. Very difficult to obtain history from patient. When asked questions patient is very vague or answers inappropriately and then laughs. Difficult to discern if patient is confused or patient is at his baseline or patient is trying to crack jokes. He is unwilling to answer majority of history questions. To this provider he denies known fever or chills. He reports he has been feeling intermittently dizzy which he describes as feeling "not right". He reports he thinks he might be feeling lightheaded. Patient denies any cough, chest pain, shortness of breath to this provider. He reports legs seem a little more swollen. Denies N/V/D/C, syncope, falls, vision changes, orthopnea, palpitations, sore throat, choking, otalgia, rhinorrhea, abdominal pain, extremity weakness, urinary symptoms. In ER pt afebrile, P: 82, BP: 199/94, 97% on room air. WBC: 11, Hgb: 9.4, Cr: 1.0, lactate WNL, troponin: 0.05, negative COVID-19 PCR. EKG: Sinus rhythm, RBBB, left anterior fascicular block. CXR: Right greater than left bilateral airspace opacities with interstitial coarsening appears stable from prior imaging. Admission Exam Per Admitting Provider General: no distress, WDWN Head: normocephalic, atraumatic Eyes: PERRL, EOM's intact, conjunctiva non-injected, anicteric ENT: normal inspection external ears, nose, mucous membranes moist Neck: supple, trachea midline Lungs: clear, no respiratory distress, no wheezing/rhonchi/rales CV: RRR, no murmur, 1-2+ pretibial edema Abd: +obese, normal BS, soft, non-tender Ext: no cyanosis, no calf tenderness, left dorsal aspect toes with eschar Neuro: Alert. Oriented to year. When asked month pt responds "no". He initially will not state hospital and then reports [facility]. Frequently laughs after not answering or answering questions incorrectly. Hard to assess if patient is confused or purposely answering incorrectly, no focal deficits noted Skin: warm, dry Principal Diagnosis Uncontrolled hypertension Discharge Exam Constitutional WD/WN, vitals as above + obese; no acute distress Respiratory normal respiratory effort, lungs clear to auscultation Cardiovascular Rate/Rhythm: regular rate and regular rhythm Vessels: normal peripheral pulses Extremities: + edema (+1 edema BLE) Gastrointestinal (Abdomen) Percussion/Palpation: abdomen soft; abdomen nontender Skin no rashes, warm and dry Scattered abrasions noted over toes and BLE Neurologic no focal motor deficits Psychiatric Orientation: alert and oriented x 3 Affect: + irritable affect (Sarcastic at times) Discharge Data Allergies Allergy/AdvReac Type Severity Reaction Status Date / Time No Known Allergies Allergy Verified 04/28/21 19:50 Consultations Psychiatry Orthopedics Procedures Performed None Ordered Studies 04/28/[address] IMPRESSION: Motion degraded exam. No acute intracranial abnormality. 04/29/2021 CTA chest IMPRESSION: 1. No evidence of pulmonary embolism. 2. Multifocal groundglass and reticular opacities are seen which may reflect chronic changes with superimposed infectious/inflammatory process. 04/29/2021 left foot x-ray IMPRESSION: No definite evidence of bony erosion to suggest osteomyelitis. There is a region of focal osteopenia in the distal great toe. If there is concern for osteomye litis at the first digit, dedicated first digit radiographs with multiple views can be obtained. MRI is also a more sensitive modality. 05/07/2021 right elbow x-ray IMPRESSION: No acute osseous pathology. Surrounding soft tissue swelling. 05/07/2021 right elbow ultrasound IMPRESSION: Focal subcutaneous fluid collection corresponding to the soft tissue swelling seen radiographically. The presence or absence of gout cannot be determined by this study. Diabetes Follow up Diabetes Follow-up Needed for Newly Diagnosed Diabetes Hospital Course (1) Dizziness: -Patient initially presented with complaints of dizziness, felt to be due to uncontrolled hypertension vs. medications -Dizziness resolved -CT head negative for acute intracranial findings -Fall precautions, PT/OT Hypertension -Presented with uncontrolled blood pressure -Home carvedilol and amlodipine continued, lisinopril 10 mg daily added on 05/04 and increased to 20 mg daily on 05/08 and 30 mg daily on 05/09 -BP with better control Generalized Weakness -Likely due to deconditioning -PT/OT Possible Cellulitis of the left foot -Xray of left foot showed no definite evidence of bony erosion to suggest o steomyelitis. There is a region of focal osteopenia in the distal great toe. -Completed 7-day course of doxycycline Right elbow pain -X-ray negative for acute osseous findings, US - Focal subcutaneous fluid collection -Prednisone 40 mg x 1 dose on 05/07 for concern of gout; cannot take colchicine since it is contraindicated with carvedilol -Ortho consult, input appreciated -no intervention recommended -Completed a short prednisone taper while admitted Shortness of breath CTA chest showed no evidence of PE. Multifocal groundglass and reticular opacities COVID-19 negative and proBNP elevated above 12K on admission Received Lasix 40 mg IV w/ albumin x 1 dose on admission Respiratory status stable Elevated troponin Possible related to acute CHF, demand ischemia Troponin 0.054 -> 0.050 Elevated BNP on admission No chest pain, EKG nonischemic Adjustment disorder Psych was consulted As per psych patient does not appear to be active psychosis or suicidal ideation interfering with his medical decision making. Stable Chronic diastolic CHF (congestive heart failure): CHF with preserved EF Received IV Lasix on admission as above Continue Bumex home dose Appears euvolemic COPD (chronic obstructive pulmonary disease): Chronic respiratory failure on 2L oxygen, however patient has been saturating well on room air No signs exacerbation Continue home inhalers Diabetes mellitus, type II: Most recent hemoglobin A1c 6.9 on 04/29/21 Lantus and NovoLog per protocol Patient denies prior history of diabetes and taking prior diabetic medications. At discharge, will place patient on Metformin 500 mg twice daily rn private duty consulted who instructed the patient on home glucose monitoring. Will encourage patient to keep a log to provide PCP. Bilateral lower extremity pain Mostly due neuropathy Continue home dose of gabapentin 200 mg 3 times daily Coronary artery disease: Continue carvedilol, atorvastatin Anemia: -Chronic, Hgb has remained at recent baseline -Hgb 9.8 on 05/07 -Started on iron supplement this admission Hyperlipidemia: Continue atorvastatin Depression: Continue duloxetine, sertraline FRANCIS (obstructive sleep apnea): Noncompliant with CPAP Disposition Stable for discharge home. Patient educated regarding risks of returning home despite recommendations for rehab. Patient accepts risk. Patient adamantly refusing rehab. Agreeable to home health which has been arranged. Patient unsure if he has his routine home medications at home, meds to beds provided home medications and new medications. Patient also provided with home glucose monitor, test strips, lancets. Total Time Total Time Spent Total Time Spent (In Minutes): 60 Discharge Plan Discharge Items Patient Disposition: Home - Home Health Services Reason For Visit: Dizziness Discharge Diagnosis: Dizziness Uncontrolled BP Activity: Resume your previous activity Non-emergency contact: Primary Care Provider Call non-emergency contact if: you have any medication questions, your symptoms worsen, your pain is not controlled and you have a fever Follow-up/Referrals: Torsten Bond PA-C [Outside Practitioners] - 05/16/21 9:30 am ([address] [place] [id number] ) Diet: Carb Consistent or DM2 and Heart Healthy Addtl Attending Provider Instructions: You were admitted to the hospital for dizziness and found to have uncontrolled blood pressure. You were started on Lisinopril 30mg daily and amlodipine was increased to 10mg daily. Continue to take other blood pressure medicines as previously prescribed. You were diagnosed with diabetes while in the hospital. You are to take metformin 500mg twice daily at discharge. The senior business development manager met with you and showed you how to use the glucose monitor. Check your blood sugar daily and provide a log at your follow up appointment. You completed a course of antibiotics for a skin infection of your left foot. You completed a course of steroids for possible gout of your right elbow. Continue to take all other medications as prescribed and keep your follow up appointment. Home Health has also been arranged for you. Call your Primary Care doctor if any of the following symptoms or problems start or get worse: * Shortness of breath or difficulty breathing * Wake up at night short of breath * Chest pain * Cough * Swelling of your hands, feet, or legs * More fatigued or tired with your normal activity * Palpitations - sudden fast heart beats WEIGHT * Weigh yourself every morning after using the bathroom. * Use the same scale. * Wear the same amount of clothing. * Write your weight down on a chart. * Call your Primary Care doctor if you gain more than 2-3 pounds in 1-2 days. MEDICATIONS * Use this discharge instruction sheet for medication instructions. * Take your medications at the time your doctor ordered. * Do not skip a dose of your medicines. * If you miss a dose of medicine, take it as soon as possible, but DO NOT DOUBLE A DOSE. * Read your medicine information when you get home. * Know all of the side effects of your medicine. If in doubt, ask your pharmacist * Call your Primary Care doctor's office if you have any side effects. * Be sure all of your doctors know what medicine and herbs you take (including cold, flu, and herbal medicine). Take the following with you to your follow-up doctor appointments: * Weight Chart * Medication List * List of questions Do not drink excessive alcohol, beer or wine. Pending Studies at Discharge: No Stand-Alone Forms: My [facility] [employer], Smoking Cessation Medications and DC Order Prescriptions: New amlodipine [Norvasc] 5 mg Tablet 10 mg PO DAILY Qty: 14 RF: 0 ferrous sulfate 325 mg (65 mg iron) Tablet,Delayed Release (Dr/Ec) 325 mg PO BIDM Qty: 14 RF: 0 lisinopril 30 mg tablet 30 mg PO DAILY Qty: 7 RF: 0 metformin 500 mg tablet 500 mg PO BIDWMEAL Qty: 14 RF: 0 (DME) blood-glucose meter [Gluco Navii Glucose Monitor] Kit See Rx Instructions .Route Qty: 1 RF: 0 (DME) Gluco Navii Test Strip Strip See Rx Instructions .Route Qty: 50 RF: 0 (DME) lancets Misc See Rx Instructions .Route Qty: 100 RF: 0 Continued acetaminophen [Tylenol] 325 mg Tablet 650 mg PO Q4 PRN (Reason: PAIN , SCALE 1-3) RF: 0 polyethylene glycol 3350 [Miralax] 17 gram Powder In Packet 17 g PO DAILY PRN (Reason: Constipation) RF: 0 docusate sodium [Stool Softener] 100 mg Capsule 100 mg PO BID PRN (Reason: Constipation) RF: 0 senna 8.6 mg Capsule 8.6 mg PO DAILY PRN (Reason: Constipation) RF: 0 oxycodone [Roxicodone] 5 mg tablet 5 mg PO Q12H PRN (Reason: Breakthrough Pain) 5 Days Qty: 10 RF: 0 albuterol sulfate [Ventolin HFA] 90 mcg/actuation Hfa Aerosol Inhaler 2 puff INHALATION QID PRN (Reason: Shortness Of Breath) RF: 0 potassium chloride 20 mEq tablet,ER particles/crystals 20 meq PO DAILY RF: 0 tamsulosin [Flomax] 0.4 mg Capsule 0.8 mg PO DAILY Qty: 14 RF: 0 Anoro Ellipta 62.5-25 mcg/actuation Blister With Device 1 inh INHALATION DAILY Qty: 14 RF: 0 atorvastatin 40 mg Tablet 40 mg PO HS Qty: 7 RF: 0 carvedilol 12.5 mg tablet 12.5 mg PO BID Qty: 14 RF: 0 sertraline [Zoloft] 100 mg Tablet 100 mg PO DAILY Qty: 7 RF: 0 pantoprazole 40 mg tablet,delayed release (DR/EC) 40 mg PO DAILY Qty: 7 RF: 0 bumetanide 1 mg tablet 1 mg PO DAILY Qty: 7 RF: 0 montelukast [Singulair] 10 mg Tablet 10 mg PO HS Qty: 7 RF: 0 gabapentin 100 mg capsule 200 mg PO TID Qty: 20 RF: 0 duloxetine 60 mg Capsule,Delayed Release(Dr/Ec) 60 mg PO DAILY Qty: 7 RF: 0 Discontinued amlodipine 5 mg tablet 5 mg PO DAILY RF: 0 Discharge Orders: Discharge Order (Routine); Ordered 05/10/21 Ordered By: Pily Bishop Admission Data Admit Date/Time: 05/01/21 08:50 Attending Provider: Vikram Montalvo Admit Provider: Olu Melissa Primary Care Provider: Comfort Almanzar Other Providers: Mikki Irwin ; Olu Melissa ; Diane Pierre ; Vira Melchor ; Maddison Childs ; Fawad Mcfadden ; [facility] ; Anil Lord ; Geraldo Henley ; Melissa Castelan ; Pily Sánchez ; Chris Byrne ; oJ Dodd ; Dhruv Eddy ; Gretchen Zhong ; Jarod Stephens ; Roshan Clark ; Abner Griffiths Brian A Other Interventions: Discharge Summary Assessment (RN) Last Done: 05/10/21 14:51 Supervising Physician Co-Signing Physician Notes Patient is seen and examined on day of discharge. Patient adamantly refuses rehab placement. He denies any dizziness, chest pain, shortness of breath, nausea, vomiting, abdominal pain. Patient agrees with home with home health. On exam patient is morbidly obese, no apparent distress, normocephalic atraumatic, lungs are clear to auscultation, S1-S2, low lower extremity edema present, no murmur, abdomen soft, nontender, alert, awake, oriented, grossly no focal deficits. Patient is managed for dizziness, hypotension, generalized weakness deconditioning, possible left foot cellulitis and right elbow pain thought to be secondary to gout. I personally reviewed the record. Patient is interviewed and examined at bedside. Patient's care is coordinated with Pily Bishop WOOD GETTER. Please refer to the documentation above for details of patient's presentation and for discussion of other issues.
--- NOTE | 2021-05-10 19:49 | Discharge Summary ---
Date of Service May 10, 2021 Admission HPI Per Admitting Provider Patient is 66-year-old male with PMH COVID-19 in 10/2020, DM II, CKD III, chronic respiratory failure on 2L O2, COPD, CHF with preserved EF, HTN, HLD, FRANCIS intolerant to CPAP, morbid obesity, anemia presented to ER with c/odizziness x 1 week. Very difficult to obtain history from patient. When asked questions patient is very vague or answers inappropriately and then laughs. Difficult to discern if patient is confused or patient is at his baseline or patient is trying to crack jokes. He is unwilling to answer majority of history questions. To this provider he denies known fever or chills. He reports he has been feeling intermittently dizzy which he describes as feeling "not right". He reports he thinks he might be feeling lightheaded. Patient denies any cough, chest pain, shortness of breath to this provider. He reports legs seem a little more swollen. Denies N/V/D/C, syncope, falls, vision changes, orthopnea, palpitations, sore throat, choking, otalgia, rhinorrhea, abdominal pain, extremity weakness, urinary symptoms. In ER pt afebrile, P: 82, BP: 199/94, 97% on room air. WBC: 11, Hgb: 9.4, Cr: 1.0, lactate WNL, troponin: 0.05, negative COVID-19 PCR. EKG: Sinus rhythm, RBBB, left anterior fascicular block. CXR: Right greater than left bilateral airspace opacities with interstitial coarsening appears stable from prior imaging. Discharge Data Allergies Allergy/AdvReac Type Severity Reaction Status Date / Time No Known Allergies Allergy Verified 04/28/21 19:50 Consultations 04/28/21 20:49 ED Decision to Admit Stat 05/02/21 11:28 Consult Psychiatry Routine 05/07/21 18:45 Consult Orthopedic Surgery Routine Ordered Studies 04/28/21 22:19 CT head/brain wo con Urgent 04/29/21 00:07 CT angio chest PE protocol Urgent 05/07/21 12:15 US extremity nonvascular comp Routine Diabetes Follow up Diabetes Follow-up Needed for Newly Diagnosed Diabetes Discharge Plan Discharge Items Patient Disposition: Home - Home Health Services Reason For Visit: Dizziness Discharge Diagnosis: Dizziness Uncontrolled BP Activity: Resume your previous activity Non-emergency contact: Primary Care Provider Call non-emergency contact if: you have any medication questions, your symptoms worsen, your pain is not controlled and you have a fever Follow-up/Referrals: Torsten Bond PA-C [Outside Practitioners] - 05/16/21 9:30 am ([address] [place] [id number] ) Diet: Carb Consistent or DM2 and Heart Healthy Addtl Attending Provider Instructions: You were admitted to the hospital for dizziness and found to have uncontrolled blood pressure. You were started on Lisinopril 30mg daily and amlodipine was increased to 10mg daily. Continue to take other blood pressure medicines as previously prescribed. You were diagnosed with diabetes while in the hospital. You are to take metformin 500mg twice daily at discharge. The agricultural extension educator met with you and showed you how to use the glucose monitor. Check your blood sugar daily and provide a log at your follow up appointment. You completed a course of antibiotics for a skin infection of your left foot. You completed a course of steroids for possible gout of your right elbow. Continue to take all other medications as prescribed and keep your follow up appointment. Home Health has also been arranged for you. Call your Primary Care doctor if any of the following symptoms or problems start or get worse: * Shortness of breath or difficulty breathing * Wake up at night short of breath * Chest pain * Cough * Swelling of your hands, feet, or legs * More fatigued or tired with your normal activity * Palpitations - sudden fast heart beats WEIGHT * Weigh yourself every morning after using the bathroom. * Use the same scale. * Wear the same amount of clothing. * Write your weight down on a chart. * Call your Primary Care doctor if you gain more than 2-3 pounds in 1-2 days. MEDICATIONS * Use this discharge instruction sheet for medication instructions. * Take your medications at the time your doctor ordered. * Do not skip a dose of your medicines. * If you miss a dose of medicine, take it as soon as possible, but DO NOT DOUBLE A DOSE. * Read your medicine information when you get home. * Know all of the side effects of your medicine. If in doubt, ask your pharmacist * Call your Primary Care doctor's office if you have any side effects. * Be sure all of your doctors know what medicine and herbs you take (including cold, flu, and herbal medicine). Take the following with you to your follow-up doctor appointments: * Weight Chart * Medication List * List of questions Do not drink excessive alcohol, beer or wine. Pending Studies at Discharge: No Stand-Alone Forms: My [facility] [employer], Smoking Cessation Medications and DC Order Prescriptions: New amlodipine [Norvasc] 5 mg Tablet 10 mg PO DAILY Qty: 14 RF: 0 ferrous sulfate 325 mg (65 mg iron) Tablet,Delayed Release (Dr/Ec) 325 mg PO BIDM Qty: 14 RF: 0 lisinopril 30 mg tablet 30 mg PO DAILY Qty: 7 RF: 0 metformin 500 mg tablet 500 mg PO BIDWMEAL Qty: 14 RF: 0 (DME) blood-glucose meter [Gluco Navii Glucose Monitor] Kit See Rx Instructions .Route Qty: 1 RF: 0 (DME) Gluco Navii Test Strip Strip See Rx Instructions .Route Qty: 50 RF: 0 (DME) lancets Misc See Rx Instructions .Route Qty: 100 RF: 0 Continued acetaminophen [Tylenol] 325 mg Tablet 650 mg PO Q4 PRN (Reason: PAIN , SCALE 1-3) RF: 0 polyethylene glycol 3350 [Miralax] 17 gram Powder In Packet 17 g PO DAILY PRN (Reason: Constipation) RF: 0 docusate sodium [Stool Softener] 100 mg Capsule 100 mg PO BID PRN (Reason: Constipation) RF: 0 senna 8.6 mg Capsule 8.6 mg PO DAILY PRN (Reason: Constipation) RF: 0 oxycodone [Roxicodone] 5 mg tablet 5 mg PO Q12H PRN (Reason: Breakthrough Pain) 5 Days Qty: 10 RF: 0 albuterol sulfate [Ventolin HFA] 90 mcg/actuation Hfa Aerosol Inhaler 2 puff INHALATION QID PRN (Reason: Shortness Of Breath) RF: 0 potassium chloride 20 mEq tablet,ER particles/crystals 20 meq PO DAILY RF: 0 tamsulosin [Flomax] 0.4 mg Capsule 0.8 mg PO DAILY Qty: 14 RF: 0 Anoro Ellipta 62.5-25 mcg/actuation Blister With Device 1 inh INHALATION DAILY Qty: 14 RF: 0 atorvastatin 40 mg Tablet 40 mg PO HS Qty: 7 RF: 0 carvedilol 12.5 mg tablet 12.5 mg PO BID Qty: 14 RF: 0 sertraline [Zoloft] 100 mg Tablet 100 mg PO DAILY Qty: 7 RF: 0 pantoprazole 40 mg tablet,delayed release (DR/EC) 40 mg PO DAILY Qty: 7 RF: 0 bumetanide 1 mg tablet 1 mg PO DAILY Qty: 7 RF: 0 montelukast [Singulair] 10 mg Tablet 10 mg PO HS Qty: 7 RF: 0 gabapentin 100 mg capsule 200 mg PO TID Qty: 20 RF: 0 duloxetine 60 mg Capsule,Delayed Release(Dr/Ec) 60 mg PO DAILY Qty: 7 RF: 0 Discontinued amlodipine 5 mg tablet 5 mg PO DAILY RF: 0 Discharge Orders: Discharge Order (Routine); Ordered 05/10/21 Ordered By: Pily Bishop Admission Data Admit Date/Time: 05/01/21 08:50 Attending Provider: Vikram Montalvo Admit Provider: Olu Melissa Primary Care Provider: Comfort Almanzar Other Providers: Mikki Irwin ; Olu Melissa ; Diane Pierre ; Vira Ceja od ; Maddison Childs ; Fawad Mcfadden ; [facility],Home Healthcare ; Anil Lord ; Geraldo Henley ; Melissa Castelan ; Pily Sánchez ; Chris Byrne ; Jo Dodd ; Dhruv Eddy ; Gretchen Zhong ; Jarod Stephens ; Roshan Clark ; Abner Griffiths Brian A Other Interventions: Discharge Summary Assessment (RN) Last Done: 05/10/21 14:51 Home Health Attestation I certify that this patient is under my care and that I, or a physicians licensed nursing assistant working with me, had a face to-face encounter that meets the home health [id number] encounter requirements with this patient. The encounter with the patient was in whole, or in part, for the following medical condition, which is the primary reason for home health care (list medical condition): dizziness I certify that, based on my findings, the following services are medically necessary home health services: My clinical findings support the need for the above services because: OT Assess ADL Status and Restore Function w ADLs PT Assessment for Endurance / Balance / Strength PT Eval for Safety and Mobility PT Eval for Safety, Gait Training, Assistive Devices PT Gait and Balance Training, Strengthening and Safety Skilled Nsg Assessment S/S to Report to Provider Further, I certify that my clinical findings support that this patient is homebound (i.e. absences from home require considerable and taxing effort and are for medical reasons or bahai services or infrequently or of short duration when for other reasons) because: Supportive Aid - Walker Certification for Home Health Services: Based on the above findings, I certify that this patient is confined to the home and needs intermittent fci care, physical therapy and/or speech therapy or continues to need occupational therapy. The patient is under my care, and I have initiated the establishment of the plan of care. This patient will be followed by a physician who will periodically review the plan of care.
== END 2021-05-10 15:37 | disposition home health service (06) | DRG 149 ==
LOC: ED 18:19 → EDINP 18:19 → SUPCPDRO 22:25 → 2W 23:43 → SUATTDRO 05-01 08:50 → 3E 05-07 01:57
DX: E78.5 Hyperlipidemia, unspecified; Z79.4 Long term (current) use of insulin; I11.0 Hypertensive heart disease with heart failure; G47.33 Obstructive sleep apnea (adult) (pediatric); F43.20 Adjustment disorder, unspecified; Z68.41 Body mass index [BMI] 40.0-44.9, adult; J96.11 Chronic respiratory failure with hypoxia; Z86.16 Personal history of COVID-19; I25.10 Atherosclerotic heart disease of native coronary artery without angina pectoris; J44.9 Chronic obstructive pulmonary disease, unspecified; N18.30 Chronic kidney disease, stage 3 unspecified; Z87.891 Personal history of nicotine dependence; E11.9 Type 2 diabetes mellitus without complications; I50.32 Chronic diastolic (congestive) heart failure; E66.01 Morbid (severe) obesity due to excess calories; L03.90 Cellulitis, unspecified; R42 Dizziness and giddiness; F32.A Depression, unspecified

== ENCOUNTER 2021-05-12 17:06 | Observation (INO) ==
[2021-05-12 18:06] LABS: Basophils # (auto) 0.03 K/uL (0-0.2); Basophils % (auto) 0.2 %; Eosinophils # (auto) 0.16 K/uL (0-0.5); Eosinophils % (auto) 1.2 %; Hematocrit (blood only) 35.1 % (42-52); Hemoglobin 11.1 g/dL (14.0-18.0); Immature Granulocytes # (auto) 0.04 K/uL (0.00-0.02); Immature Granulocytes % (auto) 0.3 %; Lymphocytes # (auto) 1.46 K/uL (1.2-3.4); Lymphocytes % (auto) 10.9 %; Mean Corpuscular Hemoglobin 26.6 pg (25-34); Mean Corpuscular Hgb Conc 31.6 g/dL (32-36); Mean Corpuscular Volume 84.2 fL (80-100); Mean Platelet Volume 9.8 fL (7.4-10.4); Monocytes # (auto) 0.83 K/uL (0.11-0.59); Monocytes % (auto) 6.2 %; Neutrophils # (auto) 10.87 K/uL (1.4-6.5); Neutrophils % (auto) 81.2 %; Platelet Count 234 K/uL (130-400); RDW Coefficient of Variation 17.2 % (11.5-14.5); RDW Standard Deviation 52.6 fL (36.4-46.3); Red Blood Count 4.17 M/uL (4.7-6.1); White Blood Count 13.39 K/uL (4.8-10.8)
[2021-05-12 18:26] LABS: Alanine Aminotransferase 19 (12-78); Albumin Level 2.9 gm/dl (3.4-5.0); Aspartate Aminotransferase 7 U/L (15-37); BUN Creatinine Ratio 17.6 (10-20); Blood Urea Nitrogen 17 mg/dl (7-18); Calcium 9.5 mg/dl (8.5-10.1); Carbon Dioxide 27 mmol/L (21-32); Chloride 106 mmol/L (98-107); Est GFR (African American) 97.7 ml/min; Est GFR (Non-African American) 84.3 ml/min; Glucose 156 mg/dl (70-99); Potassium 3.6 mmol/L (3.5-5.1); Sodium 138 mmol/L (136-145)
[2021-05-12 18:37] LABS: Albumin Globulin Ratio 0.7 (0.9-2); Alkaline Phosphatase 216 U/L (45-117); Bilirubin,Total 0.5 mg/dl (0.2-1); Total Protein 6.9 gm/dl (6.4-8.2); Troponin I < 0.015 ng/ml (0-0.045)
--- NOTE | 2021-05-12 19:57 | XRay Report ---
SINGLE VIEW CHEST CLINICAL HISTORY: Generalized weakness. FINDINGS: 2 AP, portable, upright chest radiographs are compared to study dated 04/30/2021 and correl ated with chest CT dated 04/29/2021 The examination is degraded by portable technique and apical [place] dotic positioning. The heart is enlarged. The pulmonary vasculature is noncongested. Chronic volume l oss in the right lung is unchanged from previous. Bilateral airspace opacities, right lung greater th an left are similar in appearance to recent prior studies. No large pleural effusion or pneumothorax is seen. The skeletal structures appear osteopenic. The bony thorax is grossly intact. IMPRESSION: 1. Cardiomegaly with no radiographic evidence of congestive failure. 2. Bilateral airspace opacities are similar to recent prior studies and may represent post infectious /inflammatory change. Correlate clinically for evidence of an acute infectious process. Electronically signed by: Theron Veronica M.D. 05/12/2021 7:56 PM
[2021-05-12 20:14] LABS: Lipase 104 U/L (73-393)
--- NOTE | 2021-05-12 20:14 | Emergency Department Note ---
History of Present Illness General Chief complaint: Weakness Stated complaint: WEAKNESS Time Seen by Provider: 05/12/21 19:58 History of Present Illness Provider complaint: Headache shortness of breath weakness Onset (ago): day(s) 2 Location: head Associated symptoms: + headaches, + shortness of breath and + weakness; no chest pain, no cough, no fever/chills or no nausea/vomiting 66-year-old male presents emergency department for headache shortness of breath and weakness. Patient reports his symptoms began 2 days ago after he was discharged from the hospital back to his home. He denies any falls. Had a ches t pain. He does report cough. He denies any fevers. Home Medications Medication Instructions Recorded Confirmed Type acetaminophen 325 mg tablet 650 mg PO Q4 PRN 11/29/20 04/28/21 History (Tylenol) docusate sodium 100 mg capsule 100 mg PO BID PRN 11/29/20 04/28/21 History (Stool Softener) polyethylene glycol 3350 17 gram 17 g PO DAILY PRN 11/29/20 04/28/21 History oral powder packet (Miralax) sennosides 8.6 mg capsule (senna) 8.6 mg PO DAILY PRN 02/17/21 04/28/21 History oxycodone 5 mg tablet (Roxicodone) 5 mg PO Q12H PRN 5 Days #10 tab 02/23/21 04/28/21 Rx albuterol sulfate 90 mcg/actuation 2 puff INHALATION QID PRN 04/29/21 04/29/21 History aerosol inhaler (Ventolin HFA) potassium chloride 20 mEq 20 meq PO DAILY 04/29/21 04/29/21 History tablet,extended release(part/cryst) amlodipine 5 mg tablet (Norvasc) 10 mg PO DAILY #14 tab 05/09/21 Rx atorvastatin 40 mg tablet 40 mg PO HS #7 tab 05/09/21 Rx blood sugar diagnostic (Gluco #50 ea 05/09/21 Rx Navii Test Strip) blood-glucose meter (Gluco Navii #1 ea 05/09/21 Rx Glucose Monitor) bumetanide 1 mg tablet 1 mg PO DAILY #7 tab 05/09/21 Rx carvedilol 12.5 mg tablet 12.5 mg PO BID #14 tab 05/09/21 Rx duloxetine 60 mg capsule,delayed 60 mg PO DAILY #7 cap 05/09/21 Rx release ferrous sulfate 325 mg (65 mg 325 mg PO BIDM #14 tab 05/09/21 Rx iron) tablet,delayed release gabapentin 100 mg capsule 200 mg PO TID #20 cap 05/09/21 Rx lancets #100 ea 05/09/21 Rx lisinopril 30 mg tablet 30 mg PO DAILY #7 tab 05/09/21 Rx metformin 500 mg tablet 500 mg PO BIDWMEAL #14 tab 05/09/21 Rx montelukast 10 mg tablet 10 mg PO HS #7 tab 05/09/21 Rx (Singulair) pantoprazole 40 mg tablet,delayed 40 mg PO DAILY #7 tab 05/09/21 Rx release sertraline 100 mg tablet (Zoloft) 100 mg PO DAILY #7 tab 05/09/21 Rx tamsulosin 0.4 mg capsule (Flomax) 0.8 mg PO DAILY #14 cap 05/09/21 Rx umeclidinium 62.5 mcg-vilanterol 1 inh INHALATION DAILY #14 ea 05/09/21 Rx 25 mcg/actuation powdr for inhalation (Anoro Ellipta) Allergies Allergy/AdvReac Type Severity Reaction Status Date / Time No Known Allergies Allergy Verified 04/28/21 19:50 Past Med/Surg History Medical History Abnormal posture Ambulatory dysfunction Chronic diastolic CHF (congestive heart failure) Chronic respiratory failure with hypoxia Coronary artery disease Depression Diabetes mellitus, type II Gout History of blood transfusion History of COVID-19 Hyperlipidemia Hypertension Mood disorder Morbid obesity FRANCIS (obstructive sleep apnea) Septic arthritis Ventricular tachycardia Surgical History Cataract extraction status, unspecified eye H/O knee surgery History of incision and drainage Family History Other Throat cancer Social History Smoking Status: Never smoker Tobacco Type: Cigarettes Second Hand Exposure: Yes (Pts father); Hx Alcohol Use: Yes Alcohol type: beer Hx Substance Use: Yes Last Used Substance: Days (ago) Preferred Language: [place] Communication Ability: Effective Stone Sawyer Required: No Beliefs That Will Affect Care: None marital status: Single Current Living Situation: Alone Current Living Situation Comment: [facility] How many Children do You have: 0 Feels Safe at Home: Yes Assistive Devices: Walker Review of Systems A total of 10 systems reviewed and were otherwise negative Physical Exam Vital Signs Vital Signs - 24 hr 05/12/21 17:10 05/12/21 20:07 05/12/21 20:30 Temperature 36.7 C Temperature Source Temporal Artery Scan Pulse Rate 66 88 55 L Pulse Rate from SpO2 Sensor Pulse Rhythm Regular Pulse Strength Normal Respiratory Rate 20 22 16 Respiratory Effort / Characteristics Non-Labored Spontaneous Respiratory Depth Normal Respiratory Pattern Regular Blood Pressure 180/83 H 168/88 H 158/87 H Blood Pressure Mean 115 114 110 Blood Pressure Position Sitting Pulse Oximetry 97 95 94 Oxygen Delivery Method Room Air Room Air Room Air Sepsis Recent Fever Within 48 Hours No Sepsis New/Unexplained Change in Mental Status No Sepsis Action Taken by Nursing No Action Required 05/12/21 21:00 05/12/21 21:30 05/12/21 22:00 Temperature Temperature Source Pulse Rate 55 L 64 63 Pulse Rate from SpO2 Sensor 63 63 Pulse Rhythm Pulse Strength Respiratory Rate 17 20 Respiratory Effort / Characteristics Respiratory Depth Respiratory Pattern Blood Pressure 152/82 H 171/117 H Blood Pressure Mean 105 135 Blood Pressure Position Pulse Oximetry 95 94 96 Oxygen Delivery Method Room Air Room Air Room Air Sepsis Recent Fever Within 48 Hours Sepsis New/Unexplained Change in Mental Status Sepsis Action Taken by Nursing Physical Exam GENERAL: He is oriented to person, place, and time. He appears well-developed and well-nourished. He does not appear distressed. HENT: Exam performed. - Head: Normocephalic and atraumatic. - Right Ear: External ear normal. No mastoid tenderness. - Left Ear: External ear normal. No mastoid tenderness. - Mouth/Throat: The oropharynx is clear and moist. No trismus in the jaw. No dental abscesses or uvula swelling. No oropharyngeal exudate or tonsillar abscesses. EYES: Conjunctivae and EOM are normal. Pupils are equal, round, and reactive to light. Right eye exhibits no discharge. Left eye exhibits no discharge. No scleral icterus. NECK: Normal range of motion. Neck supple. No JVD present. No spinous process tenderness present. No carotid bruit present. No rigidity. No tracheal deviation and normal range of motion present. No Brudzinski's sign and no Kernig's sign noted. CV: Normal rate, regular rhythm, normal heart sounds and intact distal pulses. Palpable radial pulses bue. PULM/CHEST: Effort normal and breath sounds normal. No respiratory distress. No stridor. He has no wheezes. He has no rales. - Chest Wall: He exhibits no tenderness. ABD: The abdomen is soft and morbidly obese Bowel sounds are normal. He has no distension. No mass is present. There is no tenderness. There is no rebound, no guarding, no Horton's sign and no tenderness at McBurney's point. Rovsig negative. MUSC/SKEL: 3+ pitting edema of the bilateral lower extremities. NEURO: He is alert and oriented to person, place, and time. He has normal stren gth. No cranial nerve deficit or sensory deficit. Coordination and gait normal. GCS eye subscore is 4. GCS verbal subscore is 5. GCS motor subscore is 6. Cerebellar tests wnl. SKIN: Skin is warm and dry. He is not diaphoretic. PSYCH: He has a normal mood and affect. Behavior is normal. Judgment and thought content normal. Course Course 1957: The patient was evaluated in room B10. A complete history and physical exam was performed Cardiac monitoring: An order was placed for continuous cardiac monitoring. The monitor shows a rate of 90 with sinus rhythm EMR reviewed. Patient was admitted to the hospital from April 28, 2021 to May 10, 2021, 2 days ago. Patient has any well-documented bifascicular block. Patient was admitted for uncontrolled blood pressure weakness and dizziness. Patient adamantly refused to rehab at the time of discharge and was thus discharged to home Patient now requesting evaluation by social work because he states he cannot take care of himself at home. 2157: Vital signs stable. Imaging stable. Labs show mild leukocytosis of 13. Otherwise within normal limits. Patient states he does not feel like he can take care of himself and is agreeable to go to rehab now. Patient [facility] be [facility] to [facility] Hospitalist team Dr. Simons for rehab placement. 2213: Discussed case with Dr. Simons who agreed to evaluate the patient. Medical Decision Making Laboratory Data Result diagrams: 05/12/21 17:43 05/12/21 17:43 Lab Results 05/12/21 05/12/21 05/12/21 Range/Units 17:43 17:43 20:06 WBC 13.39 H (4.8-10.8) K/uL RBC 4.17 L (4.7-6.1) M/uL Hgb 11.1 L (14.0-18.0) g/dL Hct 35.1 L (42-52) % MCV 84.2 (80-100) fL MCH 26.6 (25-34) pg MCHC 31.6 L (32-36) g/dL RDW Std Deviation 52.6 H (36.4-46.3) fL RDW Coeff of Xin 17.2 H (11.5-14.5) % Plt Count 234 (130-400) K/uL MPV 9.8 (7.4-10.4) fL Immature Gran % (Auto) 0.3 % Neut % (Auto) 81.2 % Lymph % (Auto) 10.9 % [place] % (Auto) 6.2 % Eos % (Auto) 1.2 % Baso % (Auto) 0.2 % Neut # (Auto) 10.87 H (1.4-6.5) K/uL Lymph # (Auto) 1.46 (1.2-3.4) K/uL [place] # (Auto) 0.83 H (0.11-0.59) K/uL Eos # (Auto) 0.16 (0-0.5) K/uL Baso # (Auto) 0.03 (0-0.2) K/uL Immature Gran # (Auto) 0.04 H (0.00-0.02) K/uL Sodium 138 (136-145) mmol/L Potassium 3.6 (3.5-5.1) mmol/L Chloride 106 (98-107) mmol/L Carbon Dioxide 27 (21-32) mmol/L Anion Gap 5.0 (3-11) BUN 17 (7-18) mg/dl Creatinine 0.95 (0.6-1.4) mg/dl Est Cr Clr Drug Dosing Not Reportable Est GFR ( Amer) 97.7 ml/min Est GFR (Non-Af Amer) 84.3 ml/min BUN/Creatinine Ratio 17.6 (10-20) Glucose 156 H (70-99) mg/dl Calcium 9.5 (8.5-10.1) mg/dl Magnesium 2.0 (1.8-2.4) mg/dl Total Bilirubin 0.5 (0.2-1) mg/dl AST 7 L (15-37) U/L ALT 19 (12-78) Alkaline Phosphatase 216 H D (45-117) U/L Troponin I < 0.015 (0-0.045) ng/ml Total Protein 6.9 (6.4-8.2) gm/dl Albumin 2.9 L (3.4-5.0) gm/dl Globulin 4.0 (2.5-4.0) gm/dl Albumin/Globulin Ratio 0.7 L (0.9-2) Lipase 104 (73-393) U/L TSH 2.980 (0.300-4.500) uIu/ml Urine Color Yellow Urine Appearance Clear (Clear) Urine pH 7.0 (4.5-7.5) Ur Specific [place] 1.018 (1.000-1.030) Urine Protein 3+ H (Negative) Urine Glucose (UA) Negative (Negative) Urine Ketones Negative (Negative) Urine Blood Negative (Negative) Urine Nitrite Negative (Negative) Urine Bilirubin Negative (Negative) Urine Urobilinogen Negative (Negative) Ur Leukocyte Esterase Negative (Negative) Urine WBC (Auto) 1-5 (0-5) /hpf Urine RBC (Auto) 0-4 (0-4) /hpf U Hyaline Cast (Auto) 0 (0-5) /lpf U Epithel Cells (Auto) 5-10 H (0-5) /lpf Urine Bacteria (Auto) Negative (Negative) SARS-CoV-2 (PCR) (Negative) Influenza Type A (PCR) (Neg) Influenza Type B (PCR) (Neg) RSV (RT-PCR) (Neg) 05/12/21 Range/Units 20:12 WBC (4.8-10.8) K/uL RBC (4.7-6.1) M/uL Hgb (14.0-18.0) g/dL Hct (42-52) % MCV (80-100) fL MCH (25-34) pg MCHC (32-36) g/dL RDW Std Deviation (36.4-46.3) fL RDW Coeff of Xin (11.5-14.5) % Plt Count (130-400) K/uL MPV (7.4-10.4) fL Immature Gran % (Auto) % Neut % (Auto) % Lymph % (Auto) % [place] % (Auto) % Eos % (Auto) % Baso % (Auto) % Neut # (Auto) (1.4-6.5) K/uL Lymph # (Auto) (1.2-3.4) K/uL [place] # (Auto) (0.11-0.59) K/uL Eos # (Auto) (0-0.5) K/uL Baso # (Auto) (0-0.2) K/uL Immature Gran # (Auto) (0.00-0.02) K/uL Sodium (136-145) mmol/L Potassium (3.5-5.1) mmol/L Chloride (98-107) mmol/L Carbon Dioxide (21-32) mmol/L Anion Gap (3-11) BUN (7-18) mg/dl Creatinine (0.6-1.4) mg/dl Est Cr Clr Drug Dosing Est GFR ( Amer) ml/min Est GFR (Non-Af Amer) ml/min BUN/Creatinine Ratio (10-20) Glucose (70-99) mg/dl Calcium (8.5-10.1) mg/dl Magnesium (1.8-2.4) mg/dl Total Bilirubin (0.2-1) mg/dl AST (15-37) U/L ALT (12-78) Alkaline Phosphatase (45-117) U/L Troponin I (0-0.045) ng/ml Total Protein (6.4-8.2) gm/dl Albumin (3.4-5.0) gm/dl Globulin (2.5-4.0) gm/dl Albumin/Globulin Ratio (0.9-2) Lipase (73-393) U/L TSH (0.300-4.500) uIu/ml Urine Color Urine Appearance (Clear) Urine pH (4.5-7.5) Ur Specific [place] (1.000-1.030) Urine Protein (Negative) Urine Glucose (UA) (Negative) Urine Ketones (Negative) Urine Blood (Negative) Urine Nitrite (Negative) Urine Bilirubin (Negative) Urine Urobilinogen (Negative) Ur Leukocyte Esterase (Negative) Urine WBC (Auto) (0-5) /hpf Urine RBC (Auto) (0-4) /hpf U Hyaline Cast (Auto) (0-5) /lpf U Epithel Cells (Auto) (0-5) /lpf Urine Bacteria (Auto) (Negative) SARS-CoV-2 (PCR) NEGATIVE (Negative) Influenza Type A (PCR) Negative (Neg) Influenza Type B (PCR) Negative (Neg) RSV (RT-PCR) Negative (Neg) Imaging Data Radiologist's Impression: Chest X-Ray 05/12/21 17:14 SINGLE VIEW CHEST CLINICAL HISTORY: Generalized weakness. FINDINGS: 2 AP, portable, upright chest radiographs are compared to study dated 04/30/2021 and correlated with chest CT dated 04/29/2021 The examination is degraded by portable technique and apical lordotic positioning. The heart is enlarged. The pulmonary vasculature is noncongested. Chronic volume loss in the right lung is unchanged from previous. Bilateral airspace opacities, right lung greater than left are similar in appearance to recent prior studies. No large pleural effusion or pneumothorax is seen. The skeletal structures appear osteopenic. The bony thorax is grossly intact. IMPRESSION: 1. Cardiomegaly with no radiographic evidence of congestive failure. 2. Bilateral airspace opacities are similar to recent prior studies and may represent post infectious/inflammatory change. Correlate clinically for evidence of an acute infectious process. Electronically signed by: Theron Veronica M.D. 05/12/2021 7:56 PM PreliminaryFindingsOnly See Final Report For Complete Findings CT HEAD: No acute intracranial hemorrhage, edema or mass. Mild atrophyand rosalva-ventricular white matter chronic microvascular changes. No extra-axial fluid collection. Intracranial atherosclerosis. No calvarial fracture. Visualized orbits, paranasal sinuses and mastoids are unremarkable. Bilateral lens replacements. Radiologist: Franklyn Kirkpatrick M.D. Study ready at 21:47 and initial results transmitted at 21:49 ECG Data Indication: + weakness Rate (beats per minute): 70 Rhythm: + normal sinus ECG Intervals/blocks: + Normal AK and + Normal QT-c ECG ST segments: + Normal ST segments Additional Comments: QRS 148 bifascicular block present. [facility] Narrative 1957: The patient was evaluated in room B10. A complete history and physical exam was performed Cardiac monitoring: An order was placed for continuous cardiac monitoring. The monitor shows a rate of 90 with sinus rhythm EMR reviewed. Patient was admitted to the hospital from April 28, 2021 to May 10, 2021, 2 days ago. Patient has any well-documented bifascicular block. Patient was admitted for uncontrolled blood pressure weakness and dizziness. Patient adamantly refused to rehab at the time of discharge and was thus discharged to home Patient now requesting evaluation by social work because he states he cannot take care of himself at home. 2157: Vital signs stable. Imaging stable. Labs show mild leukocytosis of 13. Otherwise within normal limits. Patient states he does not feel like he can take care of himself and is agreeable to go to rehab now. Patient will be admitted to the [facility] hospitalist team Dr. Simons for rehab placement. 2213: Discussed case with Dr. Simons who agreed to evaluate the patient. Impression & Plan Weakness Discharge Plan Visit Data Chief Complaint: Weakness Stated Complaint: WEAKNESS ED Provider: Severiano Bhakta Discharge Problem: Weakness Patient Disposition: Being Evaluated by Hospitalist Forms Stand Alone Forms: [facility] Prescriptions Prescriptions: No Action acetaminophen [Tylenol] 325 mg Tablet 650 mg PO Q4 PRN (Reason: PAIN , SCALE 1-3) RF: 0 polyethylene glycol 3350 [Miralax] 17 gram Powder In Packet 17 g PO DAILY PRN (Reason: Constipation) RF: 0 docusate sodium [Stool Softener] 100 mg Capsule 100 mg PO BID PRN (Reason: Constipation) RF: 0 senna 8.6 mg Capsule 8.6 mg PO DAILY PRN (Reason: Constipation) RF: 0 oxycodone [Roxicodone] 5 mg tablet 5 mg PO Q12H PRN (Reason: Breakthrough Pain) 5 Days Qty: 10 RF: 0 albuterol sulfate [Ventolin HFA] 90 mcg/actuation Hfa Aerosol Inhaler 2 puff INHALATION QID PRN (Reason: Shortness Of Breath) RF: 0 potassium chloride 20 mEq tablet,ER particles/crystals 20 meq PO DAILY RF: 0 amlodipine [Norvasc] 5 mg Tablet 10 mg PO DAILY Qty: 14 RF: 0 ferrous sulfate 325 mg (65 mg iron) Tablet,Delayed Release (Dr/Ec) 325 mg PO BIDM Qty: 14 RF: 0 lisinopril 30 mg tablet 30 mg PO DAILY Qty: 7 RF: 0 metformin 500 mg tablet 500 mg PO BIDWMEAL Qty: 14 RF: 0 (DME) blood-glucose meter [Gluco Navii Glucose Monitor] Kit See Rx Instructions .Route Qty: 1 RF: 0 (DME) Gluco Navii Test Strip Strip See Rx Instructions .Route Qty: 50 RF: 0 (DME) lancets Misc See Rx Instructions .Route Qty: 100 RF: 0 tamsulosin [Flomax] 0.4 mg Capsule 0.8 mg PO DAILY Qty: 14 RF: 0 Anoro Ellipta 62.5-25 mcg/actuation Blister With Device 1 inh INHALATION DAILY Qty: 14 RF: 0 atorvastatin 40 mg Tablet 40 mg PO HS Qty: 7 RF: 0 carvedilol 12.5 mg tablet 12.5 mg PO BID Qty: 14 RF: 0 sertraline [Zoloft] 100 mg Tablet 100 mg PO DAILY Qty: 7 RF: 0 pantoprazole 40 mg tablet,delayed release (DR/EC) 40 mg PO DAILY Qty: 7 RF: 0 bumetanide 1 mg tablet 1 mg PO DAILY Qty: 7 RF: 0 montelukast [Singulair] 10 mg Tablet 10 mg PO HS Qty: 7 RF: 0 gabapentin 100 mg capsule 200 mg PO TID Qty: 20 RF: 0 duloxetine 60 mg Capsule,Delayed Release(Dr/Ec) 60 mg PO DAILY Qty: 7 RF: 0 Referrals Referrals: Comfort Almanzar PA-C [Primary Care Provider] -
[2021-05-12 20:32] LABS: Appearance Urine Clear (Clear); Bacteria Urine Automated Negative (Negative); Bilirubin Urine Negative (Negative); Blood Urine Negative (Negative); Cast Urine Automated 0 /lpf (0-5); Color Urine Yellow; Glucose Urine UA Negative (Negative); Ketones Urine Negative (Negative); Leukocyte Esterase Urine Negative (Negative); Nitrite Urine Negative (Negative); Protein Urine 3+ (Negative); RBC Urine Automated 0-4 /hpf (0-4); Specific Gravity Urine 1.018 (1.000-1.030); Urobilinogen Urine Negative (Negative)
[2021-05-12 21:19] LABS: Influenza A virus by PCR Negative (Neg); Influenza B virus by PCR Negative (Neg); RSV by PCR Negative (Neg)
[2021-05-12] MEDS ORDERED: carvediloL 12.5 MG TAB PO ONE (22:40)
--- NOTE | 2021-05-12 23:47 | History & Physical Report ---
Date of Service May 12, 2021 Assessment & Plan (1) Asymptomatic hypertensive urgency: Plan: Secondary to medication compliance, likely functional disability given recurrent admissions in the last 6 months and family account Chronic diastolic heart failure (EF 60 to 65%, TTE 2020), equivocal volume status CAD as per records COPD, not in acute exacerbation FRANCIS, CPAP intolerance DM2, on oral medications, well-controlled as of recent hemoglobin A1c of 6.18 April 2021 Chronic anemia, hemoglobin at baseline Past tobacco abuse OBS Med telemetry Facilitate home BP meds Basal insulin, ISS BG goal 1 10-1 40, carb count coverage PT OT eval Social service RE discharge planning; patient family need to be involved with patient disposition as patient does not seem to have insight on his chronic medical conditions. Patient seems incapable of comprehending explanations/making sound decisions regarding his healthcare as evidenced by recurrent admissions in the last year. DVT prophylaxis per Lovenox subcu Full code Patient family requesting updates from providers. Mr. Hamlet Cheung, contact # [phone]. Angelica Mathias, contact #[phone]. Text document was generated using Vine voice recognition software. It may contain grammatical or spelling errors. Kindly contact undersigned for clarification of any documentation item in question. History of Present Illness Chief Complaint: Weakness, cannot take care of myself Primary Care Provider: Torsten Bond PA-C History obtained from patient, family, and records. Patient is a fair historian. Medical history significant for chronic diastolic heart failure (EF 60 to 65%, TTE 2020), CAD as per records, hypertension, hyperlipidemia, COPD, FRANCIS/CPAP intolerance, DM2 on oral medications, mood disorder, chronic anemia (baseline hemoglobin of 10), medication noncompliance as per family, past tobacco abuse. Recurrent monthly admissions since November 2020. Last confinement May 01 to May 10, 2021 for uncontrolled hypertension attributed to medication compliance. Rehab recommended on discharge but patient adamantly refused as per documentation. Patient did not feel well the last 2 days. Headache, nausea, usual abdominal discomfort with poor appetite. Patient not sure about home medications he needs to take. Patient has not always been compliant with medication regimen/PCP visits even before hospital confinements in the last year starting with COVID-19 illness. As per patient sister, patient likely incapable of knowing what medications to take and why he needs to do it. Patient has not been in touch with family since discharge from the hospital. No PCP visits. Patient brought to the ER for evaluation. Patient to consider rehab placement as per patient conversation with ER provider. Medical History as above Surgical History : Cataract, knee surgery Family History : Heart disease Personal/Social history : Past tobacco abuse, no EtOH intake, lives alone Allergies Allergy/AdvReac Type Severity Reaction Status Date / Time No Known Allergies Allergy Verified 05/12/21 22:22 Home Medications Medication Instructions Recorded Confirmed Type acetaminophen 325 mg tablet 650 mg PO Q4 PRN 11/29/20 04/28/21 History (Tylenol) docusate sodium 100 mg capsule 100 mg PO BID PRN 11/29/20 04/28/21 History (Stool Softener) polyethylene glycol 3350 17 gram 17 g PO DAILY PRN 11/29/20 04/28/21 History oral powder packet (Miralax) sennosides 8.6 mg capsule (senna) 8.6 mg PO DAILY PRN 02/17/21 04/28/21 History oxycodone 5 mg tablet (Roxicodone) 5 mg PO Q12H PRN 5 Days #10 tab 02/23/21 04/28/21 Rx albuterol sulfate 90 mcg/actuation 2 puff INHALATION QID PRN 04/29/21 04/29/21 History aerosol inhaler (Ventolin HFA) potassium chloride 20 mEq 20 meq PO DAILY 04/29/21 04/29/21 History tablet,extended release(part/cryst) amlodipine 5 mg tablet (Norvasc) 10 mg PO DAILY #14 tab 05/09/21 Rx atorvastatin 40 mg tablet 40 mg PO HS #7 tab 05/09/21 Rx blood sugar diagnostic (Gluco #50 ea 05/09/21 Rx Navii Test Strip) blood-glucose meter (Gluco Navii #1 ea 05/09/21 Rx Glucose Monitor) bumetanide 1 mg tablet 1 mg PO DAILY #7 tab 05/09/21 Rx carvedilol 12.5 mg tablet 12.5 mg PO BID #14 tab 05/09/21 Rx duloxetine 60 mg capsule,delayed 60 mg PO DAILY #7 cap 05/09/21 Rx release ferrous sulfate 325 mg (65 mg 325 mg PO BIDM #14 tab 05/09/21 Rx iron) tablet,delayed release gabapentin 100 mg capsule 200 mg PO TID #20 cap 05/09/21 Rx lancets #100 ea 05/09/21 Rx lisinopril 30 mg tablet 30 mg PO DAILY #7 tab 05/09/21 Rx metformin 500 mg tablet 500 mg PO BIDWMEAL #14 tab 05/09/21 Rx montelukast 10 mg tablet 10 mg PO HS #7 tab 05/09/21 Rx (Singulair) pantoprazole 40 mg tablet,delayed 40 mg PO DAILY #7 tab 05/09/21 Rx release sertraline 100 mg tablet (Zoloft) 100 mg PO DAILY #7 tab 05/09/21 Rx tamsulosin 0.4 mg capsule (Flomax) 0.8 mg PO DAILY #14 cap 05/09/21 Rx umeclidinium 62.5 mcg-vilanterol 1 inh INHALATION DAILY #14 ea 05/09/21 Rx 25 mcg/actuation powdr for inhalation (Anoro Ellipta) Past Med/Surg History Medical History Abnormal posture Ambulatory dysfunction Chronic diastolic CHF (congestive heart failure) Chronic respiratory failure with hypoxia Coronary artery disease Depression Diabetes mellitus, type II Gout History of blood transfusion History of COVID-19 Hyperlipidemia Hypertension Mood disorder Morbid obesity FRANCIS (obstructive sleep apnea) Septic arthritis Ventricular tachycardia Surgical History Cataract extraction status, unspecified eye H/O knee surgery History of incision and drainage Family History Other Throat cancer Social History Smoking Status: Never smoker Tobacco Type: Cigarettes Second Hand Exposure: Yes (Pts father); Hx Alcohol Use: Yes Alcohol type: beer Hx Substance Use: Yes Last Used Substance: Days (ago) Preferred Language: Citizen Of [place] Communication Ability: Effective 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: No Beliefs That Will Affect Care: None marital status: Single Current Living Situation: Alone Current Living Situation Comment: [facility] How many Children do You have: 0 Feels Safe at Home: Yes Assistive Devices: Walker Review of Systems Review of Systems: As per HPI, all 10 systems reviewed, all other ROS negative Physical Exam Physical Exam: GENERAL: Comfortable, morbidly obese, oriented to month, no respiratory distress SKIN: Pallor , warm HEENT: Pale palpebral conjunctivae, no ptosis, dry buccal mucosa NECK : Supple, short neck, no tenderness CHEST : Decreased breath sounds , no tenderness HEART : RRR, no obvious murmurs ABDOMEN: Some distention, nontender EXTREMITIES : Minimal LE swelling, no LE tenderness, no other conspicuous deformities noted NEUROLOGIC : Coherent, intermittent lethargy during encounter, no facial asymmetry, gait and stance not assessed Results & Data Results & Data ([facility]) Vital Signs (Past 12 Hours) Vital Signs Temp Pulse Resp BP Pulse Ox 05/12/21 22:00 63 171/117 H 96 05/12/21 21:30 64 20 152/82 H 94 05/12/21 21:00 55 L 17 95 05/12/21 20:30 55 L 16 158/87 H 94 05/12/21 20:07 88 22 168/88 H 95 05/12/21 17:10 36.7 C 66 20 180/83 H 97 Laboratory Results Laboratory Results WBC 13.39 K/uL (4.8-10.8) H 05/12/21 17:43 RBC 4.17 M/uL (4.7-6.1) L 05/12/21 17:43 Hgb 11.1 g/dL (14.0-18.0) L 05/12/21 17:43 Hct 35.1 % (42-52) L 05/12/21 17:43 MCV 84.2 fL (80-100) 05/12/21 17:43 MCH 26.6 pg (25-34) 05/12/21 17:43 MCHC 31.6 g/dL (32-36) L 05/12/21 17:43 RDW Std Deviation 52.6 fL (36.4-46.3) H 05/12/21 17:43 RDW Coeff of Xin 17.2 % (11.5-14.5) H 05/12/21 17:43 Plt Count 234 K/uL (130-400) 05/12/21 17:43 MPV 9.8 fL (7.4-10.4) 05/12/21 17:43 Immature Gran % (Auto) 0.3 % 05/12/21 17:43 Neut % (Auto) 81.2 % 05/12/21 17:43 Lymph % (Auto) 10.9 % 05/12/21 17:43 [place] % (Auto) 6.2 % 05/12/21 17:43 Eos % (Auto) 1.2 % 05/12/21 17:43 Baso % (Auto) 0.2 % 05/12/21 17:43 Neut # (Auto) 10.87 K/uL (1.4-6.5) H 05/12/21 17:43 Lymph # (Auto) 1.46 K/uL (1.2-3.4) 05/12/21 17:43 [place] # (Auto) 0.83 K/uL (0.11-0.59) H 05/12/21 17:43 Eos # (Auto) 0.16 K/uL (0-0.5) 05/12/21 17:43 Baso # (Auto) 0.03 K/uL (0-0.2) 05/12/21 17:43 Immature Gran # (Auto) 0.04 K/uL (0.00-0.02) H 05/12/21 17:43 Sodium 138 mmol/L (136-145) 05/12/21 17:43 Potassium 3.6 mmol/L (3.5-5.1) 05/12/21 17:43 Chloride 106 mmol/L (98-107) 05/12/21 17:43 Carbon Dioxide 27 mmol/L (21-32) 05/12/21 17:43 Anion Gap 5.0 (3-11) 05/12/21 17:43 BUN 17 mg/dl (7-18) 05/12/21 17:43 Creatinine 0.95 mg/dl (0.6-1.4) 05/12/21 17:43 Est Cr Clr Drug Dosing Not Reportable 05/12/21 17:43 Est GFR ( Amer) 97.7 ml/min 05/12/21 17:43 Est GFR (Non-Af Amer) 84.3 ml/min 05/12/21 17:43 BUN/Creatinine Ratio 17.6 (10-20) 05/12/21 17:43 Glucose 156 mg/dl (70-99) H 05/12/21 17:43 Calcium 9.5 mg/dl (8.5-10.1) 05/12/21 17:43 Magnesium 2.0 mg/dl (1.8-2.4) 05/12/21 17:43 Total Bilirubin 0.5 mg/dl (0.2-1) 05/12/21 17:43 AST 7 U/L (15-37) L 05/12/21 17:43 ALT 19 (12-78) 05/12/21 17:43 Alkaline Phosphatase 216 U/L (45-117) H D 05/12/21 17:43 Troponin I < 0.015 ng/ml (0-0.045) 05/12/21 17:43 Total Protein 6.9 gm/dl (6.4-8.2) 05/12/21 17:43 Albumin 2.9 gm/dl (3.4-5.0) L 05/12/21 17:43 Globulin 4.0 gm/dl (2.5-4.0) 05/12/21 17:43 Albumin/Globulin Ratio 0.7 (0.9-2) L 05/12/21 17:43 Lipase 104 U/L (73-393) 05/12/21 17:43 TSH 2.980 uIu/ml (0.300-4.500) 05/12/21 17:43 Urine Color Yellow 05/12/21 20:06 Urine Appearance Clear (Clear) 05/12/21 20:06 Urine pH 7.0 (4.5-7.5) 05/12/21 20:06 Ur Specific [place] 1.018 (1.000-1.030) 05/12/21 20:06 Urine Protein 3+ (Negative) H 05/12/21 20:06 Urine Glucose (UA) Negative (Negative) 05/12/21 20:06 Urine Ketones Negative (Negative) 05/12/21 20:06 Urine Blood Negative (Negative) 05/12/21 20:06 Urine Nitrite Negative (Negative) 05/12/21 20:06 Urine Bilirubin Negative (Negative) 05/12/21 20:06 Urine Urobilinogen Negative (Negative) 05/12/21 20:06 Ur Leukocyte Esterase Negative (Negative) 05/12/21 20:06 Urine WBC (Auto) 1-5 /hpf (0-5) 05/12/21 20:06 Urine RBC (Auto) 0-4 /hpf (0-4) 05/12/21 20:06 U Hyaline Cast (Auto) 0 /lpf (0-5) 05/12/21 20:06 U Epithel Cells (Auto) 5-10 /lpf (0-5) H 05/12/21 20:06 Urine Bacteria (Auto) Negative (Negative) 05/12/21 20:06 SARS-CoV-2 (PCR) NEGATIVE (Negative) 05/12/21 20:12 Influenza Type A (PCR) Negative (Neg) 05/12/21 20:12 Influenza Type B (PCR) Negative (Neg) 05/12/21 20:12 RSV (RT-PCR) Negative (Neg) 05/12/21 20:12 Impressions Chest X-Ray 05/12/21 17:14 SINGLE VIEW CHEST CLINICAL HISTORY: Generalized weakness. FINDINGS: 2 AP, portable, upright chest radiographs are compared to study dated 04/30/2021 and correlated with chest CT dated 04/29/2021 The examination is degraded by portable technique and apical lordotic positioning. The heart is enlarged. The pulmonary vasculature is noncongested. Chronic volume loss in the right lung is unchanged from previous. Bilateral airspace opacities, right lung greater than left are similar in appearance to recent prior studies. No large pleural effusion or pneumothorax is seen. The skeletal structures appear osteopenic. The bony thorax is grossly intact. IMPRESSION: 1. Cardiomegaly with no radiographic evidence of congestive failure. 2. Bilateral airspace opacities are similar to recent prior studies and may represent post infectious/inflammatory change. Correlate clinically for evidence of an acute infectious process. Electronically signed by: Theron Veronica M.D. 05/12/2021 7:[address] head initial read: No acute intracranial hemorrhage, edema or mass. Mild atrophyand rosalva- ventricular white matter chronic microvascular changes. No extra-axial fluid collection. Intracranial atherosclerosis. No calvarial fracture. Visualized orbits, paranasal sinuses and mastoids are unremarkable. Bilateral lens replacements EKG as per my interpretation rate 70, NSR, LAD, LAFB, RBBB, T wave abnormalities inferior leads
[2021-05-13 02:04] LABS: Amphetamines+Metham, Urine Neg (Neg); Barbiturates, Urine Neg (Neg); Benzodiazepine, Urine Neg (Neg); Cocaine, Urine Neg (Neg); MDMA (Ecstacy), Urine Neg (Neg); Methadone, Urine Neg (Neg); Opiate, Urine Neg (Neg); Phencyclidine, Urine Neg (Neg)
[2021-05-13] MEDS ORDERED: OLANZapine 10 MG/2.1 ML SDV IM PRN (02:12)
[2021-05-13] MEDS ORDERED: DOCUSATE SODIUM 100 MG CAP PO PRN (03:10)
[2021-05-13] MEDS ORDERED: GLUCAGON FOR INJ 1 MG VIAL SQ PRN (03:10)
[2021-05-13] MEDS ORDERED: GLUCOSE 40% GEL 15 GM TUBE PO PRN (03:10)
[2021-05-13] MEDS ORDERED: DEXTROSE 50% 50 ML SYRINGE IV PRN (03:10)
[2021-05-13] MEDS ORDERED: GLUCOSE 10 TABS/TUBE PO PRN (03:10)
[2021-05-13] MEDS ORDERED: CARBOHYDRATES FOR HYPOGLYCEMIA PO PRN (03:10)
[2021-05-13] MEDS ORDERED: POLYETHYLENE (MIRALAX) 17 GM PACK PO PRN (03:10)
[2021-05-13] MEDS: INSULIN ASPART 100 UNITS/ML 3 ML PEN SC SCH ×5 (03:35→20:54)
[2021-05-13] MEDS ORDERED: PROMETHAZINE 12.5 MG/50.5 ML NSS IV ONE (03:38)
[2021-05-13] MEDS: PROMETHAZINE HCL 12.5 MG in SODIUM CHLORIDE 0.9% 50 ML IV PRN (03:53)
[2021-05-13 06:40] LABS: Basophils # (auto) 0.03 K/uL (0-0.2); Basophils % (auto) 0.2 %; Eosinophils # (auto) 0.21 K/uL (0-0.5); Eosinophils % (auto) 1.7 %; Hematocrit (blood only) 33.2 % (42-52); Hemoglobin 10.3 g/dL (14.0-18.0); Immature Granulocytes # (auto) 0.05 K/uL (0.00-0.02); Immature Granulocytes % (auto) 0.4 %; Lymphocytes # (auto) 2.01 K/uL (1.2-3.4); Lymphocytes % (auto) 16.6 %; Mean Corpuscular Hemoglobin 26.5 pg (25-34); Mean Corpuscular Volume 85.6 fL (80-100); Monocytes # (auto) 0.91 K/uL (0.11-0.59); Monocytes % (auto) 7.5 %; Neutrophils # (auto) 8.93 K/uL (1.4-6.5); Neutrophils % (auto) 73.6 %; Platelet Count 230 K/uL (130-400); RDW Coefficient of Variation 17.5 % (11.5-14.5); RDW Standard Deviation 53.7 fL (36.4-46.3); Red Blood Count 3.88 M/uL (4.7-6.1); White Blood Count 12.14 K/uL (4.8-10.8)
[2021-05-13 07:05] LABS: BUN Creatinine Ratio 19.2 (10-20); Calcium 9.2 mg/dl (8.5-10.1); Creatinine Clr Calc Pharmacy 121.7 ml/min; Est GFR (African American) 97.7 ml/min; Est GFR (Non-African American) 84.3 ml/min; Potassium 3.5 mmol/L (3.5-5.1)
[2021-05-13] MEDS: DULoxetine HCL 60 MG CAP PO SCH (10:15)
[2021-05-13] MEDS: SERTRALINE HCL 100 MG TABLET PO SCH (10:15)
[2021-05-13] MEDS: lisinopril 10 MG TAB PO SCH (10:15)
[2021-05-13] MEDS: PANTOprazole 40 MG TAB PO SCH (10:15)
[2021-05-13] MEDS: TAMSULOSIN HCL 0.4 MG CAP PO SCH (10:15)
[2021-05-13] MEDS: amLODIPine BESYLATE 5 MG TAB PO SCH (10:16)
[2021-05-13] MEDS: FERROUS SULFATE 325 MG TAB PO SCH ×2 (10:16→18:05)
[2021-05-13] MEDS: carvediloL 12.5 MG TAB PO SCH ×2 (10:16→20:53)
--- NOTE | 2021-05-13 10:25 | CT Scan Report ---
CT OF THE HEAD WITHOUT CONTRAST CLINICAL HISTORY: Headache. COMPARISON STUDY: Head CT T April 28, 2021. CT DOSE: 823.12 mGy.cm TECHNIQUE: Helical axial images of the head were obtained without IV contrast. Automated exposure con trol was utilized for the study. A dose lowering technique was utilized adhering to the principles o f ALARA. FINDINGS: No acute intracranial hemorrhage, midline shift or mass effect is present. The ventricular system is unremarkable. The basal cisterns are patent. No extra-axial collections are present. There are no findings to suggest acute dural sinus thrombosis or acute territorial infarct. No significant calvarial abnormalities are present. Left sphenoid sinus mucosal thickening is similar to prior exam. IMPRESSION: No acute intracranial findings. ACT 112: Negative or not required by law. Electronically signed by: Norberto Oliver M.D. 05/13/2021 10:24 AM
[2021-05-13] MEDS: INSULIN GLARGINE SOLOSTAR 100 UNITS/ML 3 ML PEN SC SCH (10:28)
[2021-05-13] MEDS: ENOXAPARIN INJ 40 MG/0.4 ML SYR SQ SCH (10:28)
[2021-05-13] MEDS: UMECLIDINIUM/VILANTEROL 62.5/25MCG 7 PUFFS/INHALER INH SCH (10:29)
[2021-05-13] MEDS: ACETAMINOPHEN 325 MG TAB PO PRN (11:58)
--- NOTE | 2021-05-13 12:19 | Electrocardiogram Report ---
Test Reason : Blood Pressure : / mmHG Vent. Rate : 070 BPM Atrial Rate : 070 BPM P-R Int : 168 ms QRS Dur : 148 ms QT Int : 444 ms P-R-T Axes : 048 -62 003 degrees QTc Int : 479 ms Sinus rhythm with Premature atrial complexes Right bundle branch block Left anterior fascicular block Bifascicular block Abnormal ECG When compared with ECG of 28-APR-2021 19:36, No significant change was found Confirmed by Pastor Haddad ([id number]) on 05/13/2021 12:18:42 PM Referred By: REFERRED SELF Confirmed By:Pastor Haddad
--- NOTE | 2021-05-13 18:25 | Hospitalist Progress Note ---
Date of Service May 13, 2021 Assessment & Plan (1) Asymptomatic hypertensive urgency: Plan: Hypertensive Urgency Non compliant -CT head:No acute intracranial findings. -Continue amlodipine, carvedilol, lisinopril Also on tamsulosin Monitor Functional disability Refused Rehab placement last admission PT/OT eval Case management to help with discharge planning Family updated: Patient's brother states that he refuses family support adamantly Considers to discuss again Nausea, diarrhea Resolved as per patient Will consider further investigations if needed, reoccur Chronic diastolic heart failure EF 60 to 65%, TTE 2020 Monitor volume status Resume home diuretics as able CAD Continue home medication COPD FRANCIS, CPAP intolerance Past tobacco use No signs of acute exacerbation Continue home inhalers DM II on oral medications Last HbA1c 6.18 April 2021 Continue insulin therapy while hospitalized Chronic anemia Hb at baseline DVT Px: Lovenox SQ CODE STATUS Full code Disposition To be determined Mr. Hamlet Cheung, contact # [phone]. Ms. Bernice Mathias, contact #[phone]. Admission and Anticipated Discharge Date Admission Date: May 12, 2021 Subjective Patient is seen and examined at bedside States having generalized mild headache Nausea, and diarrhea resolved Denies any chest pain, shortness of breath, dizziness, abdominal pain Offers no other complaints Updated patient's brother over the phone Review of Systems Review of Systems: All systems reviewed & are unremarkable except as noted in Subjective Physical Exam Physical Exam: Physical Exam: Vitals signs as noted above General Appearance: Morbidly obese, no apparent distress Head: normocephalic, Atraumatic Eyes: normal inspection, EOMI Neck: supple, Trachea midline Respiratory/Chest: Normal breath sounds, CTA Cardiovascular: S1, S2, No murmur Abdomen/GI:Soft, Non tender, Bowel sounds present Extremities/Musculoskeletal:normal inspection, trace pedal edema Neurologic/Psych:AAOX3, grossly no focal neurological deficits Skin: normal color, warm Results & Data Results & Data ([facility]) Vital Signs (Past 12 Hours) Vital Signs Pulse Resp BP Pulse Ox 05/13/21 10:21 68 20 174/94 H 96 05/13/21 09:14 92 Laboratory Results Short CBC 05/13/21 Range/Units 06:04 WBC 12.14 H (4.8-10.8) K/uL Hgb 10.3 L (14.0-18.0) g/dL Hct 33.2 L (42-52) % Plt Count 230 (130-400) K/uL BMP 05/12/21 05/13/21 17:43 06:04 Sodium 138 142 Potassium 3.6 3.5 Chloride 106 109 H Carbon Dioxide 27 26 BUN 17 18 Creatinine 0.95 0.95 Glucose 156 H 127 H Calcium 9.5 9.2 Cardiac Enzymes 05/12/21 Range/Units 17:43 Troponin I < 0.015 (0-0.045) ng/ml Liver Function 05/12/21 Range/Units 17:43 Total Bilirubin 0.5 (0.2-1) mg/dl AST 7 L (15-37) U/L ALT 19 (12-78) Alkaline Phosphatase 216 H D (45-117) U/L Albumin 2.9 L (3.4-5.0) gm/dl Urine 05/12/21 Range/Units 20:06 Urine Color Yellow Urine Appearance Clear (Clear) Urine pH 7.0 (4.5-7.5) Ur Specific [place] 1.018 (1.000-1.030) Urine Protein 3+ H (Negative) Urine Glucose (UA) Negative (Negative)
[2021-05-13] MEDS: ATORVASTATIN 40 MG TAB PO SCH (20:53)
[2021-05-13] MEDS: MONTELUKAST SODIUM 10 MG TABLET PO SCH (20:53)
[2021-05-14 07:04] LABS: Hematocrit (blood only) 31.4 % (42-52); Hemoglobin 9.7 g/dL (14.0-18.0); Mean Corpuscular Hemoglobin 26.3 pg (25-34); Mean Corpuscular Hgb Conc 30.9 g/dL (32-36); Mean Corpuscular Volume 85.1 fL (80-100); Mean Platelet Volume 8.9 fL (7.4-10.4); Platelet Count 197 K/uL (130-400); RDW Coefficient of Variation 17.2 % (11.5-14.5); RDW Standard Deviation 53.5 fL (36.4-46.3); Red Blood Count 3.69 M/uL (4.7-6.1); White Blood Count 11.99 K/uL (4.8-10.8)
[2021-05-14 07:32] LABS: BUN Creatinine Ratio 21.9 (10-20); Calcium 9.4 mg/dl (8.5-10.1); Creatinine Clr Calc Pharmacy 120.7 ml/min; Est GFR (African American) 97.7 ml/min; Est GFR (Non-African American) 84.3 ml/min; Magnesium 2.2 mg/dl (1.8-2.4); Potassium 3.6 mmol/L (3.5-5.1)
[2021-05-14] MEDS: INSULIN ASPART 100 UNITS/ML 3 ML PEN SC SCH ×4 (07:54→21:23)
[2021-05-14] MEDS: DULoxetine HCL 60 MG CAP PO SCH (07:56)
[2021-05-14] MEDS: TAMSULOSIN HCL 0.4 MG CAP PO SCH (07:57)
[2021-05-14] MEDS: FERROUS SULFATE 325 MG TAB PO SCH ×2 (07:58→18:30)
[2021-05-14] MEDS: PANTOprazole 40 MG TAB PO SCH (07:58)
[2021-05-14] MEDS: SERTRALINE HCL 100 MG TABLET PO SCH (07:59)
[2021-05-14] MEDS: lisinopril 10 MG TAB PO SCH (08:00)
[2021-05-14] MEDS: amLODIPine BESYLATE 5 MG TAB PO SCH (08:01)
[2021-05-14] MEDS: carvediloL 12.5 MG TAB PO SCH ×2 (08:02→21:01)
[2021-05-14] MEDS: ENOXAPARIN INJ 40 MG/0.4 ML SYR SQ SCH (08:03)
[2021-05-14] MEDS: INSULIN GLARGINE SOLOSTAR 100 UNITS/ML 3 ML PEN SC SCH (08:06)
[2021-05-14] MEDS: traMADol HCL 50 MG TABLET PO PRN (08:12)
[2021-05-14] MEDS: ACETAMINOPHEN 325 MG TAB PO PRN (08:12)
[2021-05-14] MEDS: UMECLIDINIUM/VILANTEROL 62.5/25MCG 7 PUFFS/INHALER INH SCH (08:17)
--- NOTE | 2021-05-14 16:01 | Hospitalist Progress Note ---
Date of Service May 14, 2021 Assessment & Plan (1) Asymptomatic hypertensive urgency: Plan: Hypertensive Urgency Non compliant -CT head:No acute intracranial findings. -Continue amlodipine, carvedilol, lisinopril Also on tamsulosin Blood pressure better Functional disability Refused Rehab placement last admission PT/OT eval Case management to help with discharge planning Family updated: Patient's brother states that he refuses family support adamantly Considers to discuss again Needs rehab placement Nausea, diarrhea Resolved as per patient Will consider further investigations if needed Chronic diastolic heart failure EF 60 to 65%, TTE 2020 Monitor volume status Resume home diuretics CAD Continue home medication COPD FRANCIS, CPAP intolerance Past tobacco use No signs of acute exacerbation Continue home inhalers DM II on oral medications Last HbA1c 6.18 April 2021 Continue insulin therapy while hospitalized Chronic anemia Hb at baseline DVT Px: Lovenox SQ CODE STATUS Full code Disposition Rehab as able Family: Mr. Hamlet Cheung, contact # [phone]. Ms. Bernice Mathias, contact #[phone]. Admission and Anticipated Discharge Date Admission Date: May 14, 2021 Subjective Patient is seen and examined at bedside States feeling tired and has generalized weakness Headache slowly improving Denies any chest pain, shortness of breath, dizziness, abdominal pain Offers no other complaints PT recommends rehab placement Review of Systems Review of Systems: All systems reviewed & are unremarkable except as noted in Subjective Physical Exam Physical Exam: Physical Exam: Vitals signs as noted above General Appearance: Morbidly obese, no apparent distress Head: normocephalic, Atraumatic Eyes: normal inspection, EOMI Neck: supple, Trachea midline Respiratory/Chest: Normal breath sounds, CTA Cardiovascular: S1, S2, No murmur Abdomen/GI:Soft, Non tender, Bowel sounds present Extremities/Musculoskeletal:normal inspection, 1+ pedal edema Neurologic/Psych:AAOX3, grossly no focal neurological deficits Skin: normal color, warm Results & Data Results & Data ([facility]) Vital Signs (Past 12 Hours) Vital Signs Temp Pulse Resp BP Pulse Ox 05/14/21 15:19 50 L 20 145/89 H 95 05/14/21 07:46 36.8 C 79 20 152/96 H 91 Laboratory Results Short CBC 05/14/21 Range/Units 06:52 WBC 11.99 H (4.8-10.8) K/uL Hgb 9.7 L (14.0-18.0) g/dL Hct 31.4 L (42-52) % Plt Count 197 (130-400) K/uL BMP 05/14/21 06:52 Sodium 139 Potassium 3.6 Chloride 108 H Carbon Dioxide 27 BUN 21 H Creatinine 0.95 Glucose 131 H Calcium 9.4
[2021-05-14] MEDS: oxyCODONE HCL IR 5 MG TAB (IMMEDIATE RELEASE) PO PRN (20:13)
[2021-05-14] MEDS: MONTELUKAST SODIUM 10 MG TABLET PO SCH (20:13)
[2021-05-14] MEDS: GABAPENTIN 100 MG CAP PO SCH (20:14)
[2021-05-14] MEDS: ATORVASTATIN 40 MG TAB PO SCH (20:15)
[2021-05-15 05:12] LABS: Hematocrit (blood only) 30.8 % (42-52); Hemoglobin 9.7 g/dL (14.0-18.0); Mean Corpuscular Hemoglobin 26.7 pg (25-34); Mean Corpuscular Hgb Conc 31.5 g/dL (32-36); Mean Corpuscular Volume 84.8 fL (80-100); Mean Platelet Volume 10.1 fL (7.4-10.4); Platelet Count 184 K/uL (130-400); RDW Coefficient of Variation 16.9 % (11.5-14.5); RDW Standard Deviation 52.4 fL (36.4-46.3); Red Blood Count 3.63 M/uL (4.7-6.1); White Blood Count 8.67 K/uL (4.8-10.8)
[2021-05-15 05:41] LABS: Calcium 9.3 mg/dl (8.5-10.1); Creatinine Clr Calc Pharmacy 102.2 ml/min; Potassium 3.4 mmol/L (3.5-5.1)
[2021-05-15] MEDS: FERROUS SULFATE 325 MG TAB PO SCH ×2 (07:58→17:29)
[2021-05-15] MEDS: PANTOprazole 40 MG TAB PO SCH (08:01)
[2021-05-15] MEDS: TAMSULOSIN HCL 0.4 MG CAP PO SCH (08:01)
[2021-05-15] MEDS: DULoxetine HCL 60 MG CAP PO SCH (08:02)
[2021-05-15] MEDS: GABAPENTIN 100 MG CAP PO SCH ×3 (08:02→20:59)
[2021-05-15] MEDS: amLODIPine BESYLATE 5 MG TAB PO SCH (08:03)
[2021-05-15] MEDS: BUMETANIDE 1 MG TAB PO SCH (08:03)
[2021-05-15] MEDS: lisinopril 10 MG TAB PO SCH (08:04)
[2021-05-15] MEDS: POTASSIUM CHLORIDE CRTAB 20 MEQ TABCR PO SCH (08:06)
[2021-05-15] MEDS: SERTRALINE HCL 100 MG TABLET PO SCH (08:06)
[2021-05-15] MEDS: carvediloL 12.5 MG TAB PO SCH ×2 (08:06→21:00)
[2021-05-15] MEDS: INSULIN ASPART 100 UNITS/ML 3 ML PEN SC SCH ×4 (08:12→20:58)
[2021-05-15] MEDS: INSULIN GLARGINE SOLOSTAR 100 UNITS/ML 3 ML PEN SC SCH (08:13)
[2021-05-15] MEDS: ENOXAPARIN INJ 40 MG/0.4 ML SYR SQ SCH (10:11)
[2021-05-15] MEDS: UMECLIDINIUM/VILANTEROL 62.5/25MCG 7 PUFFS/INHALER INH SCH (10:15)
[2021-05-15] MEDS: ACETAMINOPHEN 325 MG TAB PO PRN (11:09)
[2021-05-15 18:09] LABS: SARS CoV2 RNA(COVID-19) InHosp NEGATIVE (Negative)
--- NOTE | 2021-05-15 19:37 | Hospitalist Progress Note ---
Date of Service May 15, 2021 Assessment & Plan (1) Asymptomatic hypertensive urgency: Plan: Hypertensive Urgency Non compliant -CT head:No acute intracranial findings. -Continue amlodipine, carvedilol, lisinopril Also on tamsulosin Continue current medications Functional disability Refused Rehab placement last admission PT/OT eval Case management to help with discharge planning Family updated: Patient's brother states that he refuses family support adamantly Considers to discuss again Plan to discharge to rehab facility once arranged Nausea, diarrhea Resolved as per patient Will consider further investigations if needed Chronic diastolic heart failure EF 60 to 65%, TTE 2020 Monitor volume status Continue home diuretics CAD Continue home medication COPD FRANCIS, CPAP intolerance Past tobacco use No signs of acute exacerbation Continue home inhalers DM II on oral medications Last HbA1c 6.18 April 2021 Continue insulin therapy while hospitalized Chronic anemia Hb at baseline DVT Px: Lovenox SQ CODE STATUS Full code Disposition Rehab as able Family: Mr. Hamlet Cheung, contact # [phone]. Ms. Bernice Mathias, contact #[phone]. Admission and Anticipated Discharge Date Admission Date: May 14, 2021 Subjective Patient is seen and examined at bedside No new complaints Continues to feel tired Waiting for rehab placement Denies any chest pain, shortness of breath, dizziness, abdominal pain Review of Systems Review of Systems: All systems reviewed & are unremarkable except as noted in Subjective Physical Exam Physical Exam: Physical Exam: Vitals signs as noted above General Appearance: Morbidly obese, no apparent distress Head: normocephalic, Atraumatic Eyes: normal inspection, EOMI Neck: supple, Trachea midline Respiratory/Chest: Normal breath sounds, CTA Cardiovascular: S1, S2, No murmur Abdomen/GI:Soft, Non tender, Bowel sounds present Extremities/Musculoskeletal:normal inspection, 1+ pedal edema Neurologic/Psych:AAOX3, grossly no focal neurological deficits Skin: normal color, warm Results & Data Results & Data ([facility]) Vital Signs (Past 12 Hours) Vital Signs Pulse Resp BP Pulse Ox 05/15/21 14:31 70 18 155/93 H 96 05/15/21 14:27 64 20 155/93 H 96 05/15/21 12:19 76 18 164/98 H 96 05/15/21 08:00 70 18 93 Laboratory Results Short CBC 05/15/21 Range/Units 04:27 WBC 8.67 (4.8-10.8) K/uL Hgb 9.7 L (14.0-18.0) g/dL Hct 30.8 L (42-52) % Plt Count 184 (130-400) K/uL [facility] 05/15/21 04:27 Sodium 137 Potassium 3.4 L Chloride 106 Carbon Dioxide 26 BUN 22 H Creatinine 1.12 Glucose 119 H Calcium 9.3
[2021-05-15] MEDS: ATORVASTATIN 40 MG TAB PO SCH (20:59)
[2021-05-15] MEDS: MONTELUKAST SODIUM 10 MG TABLET PO SCH (21:00)
[2021-05-15] MEDS ORDERED: lisinopril 10 MG TAB PO ONE (21:51)
[2021-05-16] MEDS: ACETAMINOPHEN 325 MG TAB PO PRN (03:23)
[2021-05-16] MEDS: INSULIN ASPART 100 UNITS/ML 3 ML PEN SC SCH ×4 (08:48→21:00)
[2021-05-16] MEDS: FERROUS SULFATE 325 MG TAB PO SCH ×2 (09:09→17:41)
[2021-05-16] MEDS: carvediloL 12.5 MG TAB PO SCH ×2 (09:09→19:49)
[2021-05-16] MEDS: BUMETANIDE 1 MG TAB PO SCH (09:09)
[2021-05-16] MEDS: amLODIPine BESYLATE 5 MG TAB PO SCH (09:09)
[2021-05-16] MEDS: DULoxetine HCL 60 MG CAP PO SCH (09:10)
[2021-05-16] MEDS: ENOXAPARIN INJ 40 MG/0.4 ML SYR SQ SCH (09:11)
[2021-05-16] MEDS: GABAPENTIN 100 MG CAP PO SCH ×3 (09:12→19:51)
[2021-05-16] MEDS: PANTOprazole 40 MG TAB PO SCH (09:13)
[2021-05-16] MEDS: SERTRALINE HCL 100 MG TABLET PO SCH (09:14)
[2021-05-16] MEDS: POTASSIUM CHLORIDE CRTAB 20 MEQ TABCR PO SCH (09:14)
[2021-05-16] MEDS: TAMSULOSIN HCL 0.4 MG CAP PO SCH (09:15)
[2021-05-16] MEDS: lisinopril 40 MG TAB PO SCH (09:17)
[2021-05-16] MEDS: INSULIN GLARGINE SOLOSTAR 100 UNITS/ML 3 ML PEN SC SCH (09:19)
[2021-05-16] MEDS: UMECLIDINIUM/VILANTEROL 62.5/25MCG 7 PUFFS/INHALER INH SCH (10:56)
[2021-05-16] MEDS ORDERED: POTASSIUM CHLORIDE CRTAB 20 MEQ TABCR PO ONE ×2 (11:18)
[2021-05-16] MEDS ORDERED: COVID-19 VAC,AD26(JANSSEN)/PF 0.5 ML SYR IM ONE (13:24)
--- NOTE | 2021-05-16 18:23 | Hospitalist Progress Note ---
Date of Service May 16, 2021 Assessment & Plan (1) Asymptomatic hypertensive urgency: Plan: Hypertensive Urgency Non compliant -CT head:No acute intracranial findings. -Continue amlodipine, carvedilol, lisinopril Also on tamsulosin Continue current medications Monitor BP Unvaccinated for COVID 19 Patient agrees to have J & J vaccine We will administer today Functional disability Refused Rehab placement last admission PT/OT eval Case management to help with discharge planning Family updated: Patient's brother states that he refuses family support adamantly Considers to discuss again Plan to discharge to rehab facility once arranged Nausea, diarrhea Resolved as per patient Will consider further investigations if needed Chronic diastolic heart failure EF 60 to 65%, TTE 2020 Monitor volume status Continue home diuretics CAD Continue home medication COPD FRANCIS, CPAP intolerance Past tobacco use No signs of acute exacerbation Continue home inhalers DM II on oral medications Last HbA1c 6.18 April 2021 Continue insulin therapy while hospitalized Chronic anemia Hb at baseline DVT Px: Lovenox SQ CODE STATUS Full code Disposition Rehab when arranged Family: Mr. Hamlet Cheung, contact # [phone]. Ms. Bernice Mathias, contact #[phone]. Admission and Anticipated Discharge Date Admission Date: May 14, 2021 Subjective Patient is seen and examined at bedside Waiting for rehab placement Had PT eval earlier today Denies any chest pain, shortness of breath, dizziness, abdominal pain Review of Systems Review of Systems: All systems reviewed & are unremarkable except as noted in Subjective Physical Exam Physical Exam: Physical Exam: Vitals signs as noted above General Appearance: Morbidly obese, no apparent distress Head: normocephalic, Atraumatic Eyes: normal inspection, EOMI Neck: supple, Trachea midline Respiratory/Chest: Normal breath sounds, CTA Cardiovascular: S1, S2, No murmur Abdomen/GI:Soft, Non tender, Bowel sounds present Extremities/Musculoskeletal:normal inspection, 1+ pedal edema Neurologic/Psych:AAOX3, grossly no focal neurological deficits Skin: normal color, warm Results & Data Results & Data ([facility]) Vital Signs (Past 12 Hours) Vital Signs Pulse Resp BP Pulse Ox 05/16/21 16:06 16 05/16/21 08:00 64 20 165/75 H 96
[2021-05-16] MEDS: ATORVASTATIN 40 MG TAB PO SCH (19:50)
[2021-05-16] MEDS: traMADol HCL 50 MG TABLET PO PRN (19:50)
[2021-05-16] MEDS: MONTELUKAST SODIUM 10 MG TABLET PO SCH (19:51)
[2021-05-16] MEDS: hydrALAZINE 10 MG TAB PO PRN (21:21)
[2021-05-16] MEDS: oxyCODONE HCL IR 5 MG TAB (IMMEDIATE RELEASE) PO PRN (21:25)
[2021-05-16] MEDS ORDERED: LABETALOL HCL 100 MG TAB PO ONE (23:57)
--- NOTE | 2021-05-16 23:58 | Communication Note ---
Date of Service: May 16, 2021 Made aware by RN of uncontrolled blood pressure. SBP 140 to 190s since admission last week. Cardiac rate 60s Patient irate as per RN. AP Hypertensive urgency History medication noncompliance hx FRANCIS, CPAP intolerance Change Coreg to Labetalol Will relay to AM provider.
[2021-05-17 00:49] LABS: BUN Creatinine Ratio 18.4 (10-20); Calcium 9.4 mg/dl (8.5-10.1); Est GFR (Non-African American) 56.1 ml/min; Potassium 3.6 mmol/L (3.5-5.1)
[2021-05-17 05:59] LABS: Hematocrit (blood only) 30.1 % (42-52); Hemoglobin 9.5 g/dL (14.0-18.0); Mean Corpuscular Hemoglobin 26.7 pg (25-34); Mean Corpuscular Hgb Conc 31.6 g/dL (32-36); Mean Corpuscular Volume 84.6 fL (80-100); Mean Platelet Volume 10.1 fL (7.4-10.4); Platelet Count 200 K/uL (130-400); RDW Coefficient of Variation 16.9 % (11.5-14.5); RDW Standard Deviation 52.1 fL (36.4-46.3); Red Blood Count 3.56 M/uL (4.7-6.1); White Blood Count 8.73 K/uL (4.8-10.8)
[2021-05-17 06:33] LABS: BUN Creatinine Ratio 18.8 (10-20); Calcium 9.2 mg/dl (8.5-10.1); Creatinine Clr Calc Pharmacy 90.1 ml/min; Est GFR (African American) 68.7 ml/min; Est GFR (Non-African American) 59.3 ml/min; Phosphorus 3.2 mg/dl (2.5-4.9); Potassium 3.8 mmol/L (3.5-5.1)
[2021-05-17] MEDS: INSULIN ASPART 100 UNITS/ML 3 ML PEN SC SCH ×4 (08:40→20:22)
[2021-05-17] MEDS: SERTRALINE HCL 100 MG TABLET PO SCH (08:42)
[2021-05-17] MEDS: lisinopril 40 MG TAB PO SCH (08:42)
[2021-05-17] MEDS: DULoxetine HCL 60 MG CAP PO SCH (08:42)
[2021-05-17] MEDS: TAMSULOSIN HCL 0.4 MG CAP PO SCH (08:42)
[2021-05-17] MEDS: POTASSIUM CHLORIDE CRTAB 20 MEQ TABCR PO SCH (08:42)
[2021-05-17] MEDS: FERROUS SULFATE 325 MG TAB PO SCH ×2 (08:43→17:29)
[2021-05-17] MEDS: amLODIPine BESYLATE 5 MG TAB PO SCH (08:43)
[2021-05-17] MEDS: BUMETANIDE 1 MG TAB PO SCH (08:43)
[2021-05-17] MEDS: GABAPENTIN 100 MG CAP PO SCH ×3 (08:43→20:38)
[2021-05-17] MEDS: PANTOprazole 40 MG TAB PO SCH (08:43)
[2021-05-17] MEDS: ENOXAPARIN INJ 40 MG/0.4 ML SYR SQ SCH (08:44)
[2021-05-17] MEDS: LABETALOL HCL 100 MG TAB PO SCH ×2 (08:46→20:35)
[2021-05-17] MEDS: INSULIN GLARGINE SOLOSTAR 100 UNITS/ML 3 ML PEN SC SCH (08:46)
[2021-05-17] MEDS: UMECLIDINIUM/VILANTEROL 62.5/25MCG 7 PUFFS/INHALER INH SCH (08:47)
--- NOTE | 2021-05-17 13:00 | Hospitalist Progress Note ---
Date of Service May 17, 2021 Assessment & Plan (1) Asymptomatic hypertensive urgency: Plan: Hypertensive Urgency Non compliant -CT head:No acute intracranial findings. -Continued amlodipine, carvedilol, lisinopril - switched coreg to labetalol to improve BP Also on tamsulosin Continue current medications Monitor BP Unvaccinated for COVID 19 Patient received J & J vaccine on 05/16 Functional disability Refused Rehab placement last admission PT/OT eval Case management to help with discharge planning Family updated: Patient's brother states that he refuses family support adamantly Considers to discuss again Plan to discharge to rehab facility once arranged Nausea, diarrhea Resolved as per patient Will consider further investigations if needed Chronic diastolic heart failure EF 60 to 65%, TTE 2020 Monitor volume status Continue home diuretics CAD Continue home medication COPD FRANCIS, CPAP intolerance Past tobacco use No signs of acute exacerbation Continue home inhalers DM II on oral medications Last HbA1c 6.18 April 2021 Continue insulin therapy while hospitalized Chronic anemia Hb at baseline DVT Px: Lovenox SQ CODE STATUS: Full code Disposition: Rehab when arranged Family: Mr. Hamlet Cheung, contact # [phone]. Ms. Bernice Mathias, contact #[phone]. Admission and Anticipated Discharge Date Admission Date: May 14, 2021 Subjective Patient is seen and examined at bedside Denies any chest pain, shortness of breath, dizziness, abdominal pain Reports chronic arthritis pain in joints BP elevated overnight, pt started on labetolol Waiting for rehab placement Review of Systems Review of Systems: All systems reviewed & are unremarkable except as noted in Subjective Physical Exam Physical Exam: General Appearance: Morbidly obese M in NAD Head: normocephalic, Atraumatic Eyes: normal inspection, EOMI Neck: supple, Trachea midline Respiratory/Chest: Normal breath sounds, CTA Cardiovascular: S1, S2, No murmur Abdomen/GI:Soft, Non tender, Bowel sounds present Extremities/Musculoskeletal:normal inspection, 1+ pedal edema Neurologic/Psych:AAOX3, speech fluent, moves extremities Skin: normal color, warm Results & Data Results & Data ([facility]) Vital Signs (Past 12 Hours) Vital Signs Temp Pulse Resp BP Pulse Ox 05/17/21 11:15 36.6 C 61 18 155/71 H 96 05/17/21 07:21 36.9 C 57 L 18 162/73 H 94 05/17/21 03:23 36.3 C L 63 18 165/80 H 93 Laboratory Results 05/17/21 05/17/21 05/17/21 Range/Units 11:22 07:28 05:21 WBC (4.8-10.8) K/uL RBC (4.7-6.1) M/uL Hgb (14.0-18.0) g/dL Hct (42-52) % MCV (80-100) fL MCH (25-34) pg MCHC (32-36) g/dL RDW Std Deviation (36.4-46.3) fL RDW Coeff of Xin (11.5-14.5) % Plt Count (130-400) K/uL MPV (7.4-10.4) fL Sodium 136 (136-145) mmol/L Potassium 3.8 (3.5-5.1) mmol/L Chloride 105 (98-107) mmol/L Carbon Dioxide 25 (21-32) mmol/L Anion Gap 6.0 (3-11) BUN 24 H (7-18) mg/dl Creatinine 1.27 (0.6-1.4) mg/dl Est Cr Clr Drug Dosing 90.1 ml/min Est GFR ( Amer) 68.7 ml/min Est GFR (Non-Af Amer) 59.3 ml/min BUN/Creatinine Ratio 18.8 (10-20) Glucose 119 H (70-99) mg/dl POC Glucose 130 H 122 H (70-99) mg/dl Calcium 9.2 (8.5-10.1) mg/dl Phosphorus 3.2 (2.5-4.9) mg/dl Magnesium 2.0 (1.8-2.4) mg/dl 05/17/21 05/16/21 05/16/21 Range/Units 05:21 23:51 20:39 WBC 8.73 (4.8-10.8) K/uL RBC 3.56 L (4.7-6.1) M/uL Hgb 9.5 L (14.0-18.0) g/dL Hct 30.1 L (42-52) % MCV 84.6 (80-100) fL MCH 26.7 (25-34) pg MCHC 31.6 L (32-36) g/dL RDW Std Deviation 52.1 H (36.4-46.3) fL RDW Coeff of Xin 16.9 H (11.5-14.5) % Plt Count 200 (130-400) K/uL MPV 10.1 (7.4-10.4) fL Sodium 137 (136-145) mmol/L Potassium 3.6 (3.5-5.1) mmol/L Chloride 106 (98-107) mmol/L Carbon Dioxide 24 (21-32) mmol/L Anion Gap 7.0 (3-11) BUN 25 H (7-18) mg/dl Creatinine 1.33 (0.6-1.4) mg/dl Est Cr Clr Drug Dosing 86.0 ml/min Est GFR ( Amer) 65.0 ml/min Est GFR (Non-Af Amer) 56.1 ml/min BUN/Creatinine Ratio 18.4 (10-20) Glucose 116 H (70-99) mg/dl POC Glucose 124 H (70-99) mg/dl Calcium 9.4 (8.5-10.1) mg/dl Phosphorus (2.5-4.9) mg/dl Magnesium 2.0 (1.8-2.4) mg/dl 05/16/21 Range/Units 16:45 WBC (4.8-10.8) K/uL RBC (4.7-6.1) M/uL Hgb (14.0-18.0) g/dL Hct (42-52) % MCV (80-100) fL MCH (25-34) pg MCHC (32-36) g/dL RDW Std Deviation (36.4-46.3) fL RDW Coeff of Xin (11.5-14.5) % Plt Count (130-400) K/uL MPV (7.4-10.4) fL Sodium (136-145) mmol/L Potassium (3.5-5.1) mmol/L Chloride (98-107) mmol/L Carbon Dioxide (21-32) mmol/L Anion Gap (3-11) BUN (7-18) mg/dl Creatinine (0.6-1.4) mg/dl Est Cr Clr Drug Dosing ml/min Est GFR ( Amer) ml/min Est GFR (Non-Af Amer) ml/min BUN/Creatinine Ratio (10-20) Glucose (70-99) mg/dl POC Glucose 106 H (70-99) mg/dl Calcium (8.5-10.1) mg/dl Phosphorus (2.5-4.9) mg/dl Magnesium (1.8-2.4) mg/dl Medications Administered Current Inpatient Medications Acetaminophen (Acetaminophen 325 Mg Tab) 650 mg PO Q4H PRN PRN Reason: Pain or Fever Stop: 06/12/21 03:09 Last Admin: 05/16/21 03:23 Dose: 650 mg Documented by: Amlodipine Besylate (Amlodipine Besylate 5 Mg Tab) 10 mg PO DAILY [facility] Stop: 06/12/21 08:59 Last Admin: 05/17/21 08:43 Dose: 10 mg Documented by: Atorvastatin Calcium (Atorvastatin 40 Mg Tab) 40 mg PO HS [facility] Stop: 06/12/21 20:59 Last Admin: 05/16/21 19:50 Dose: 40 mg Documented by: Bumetanide (Bumetanide 1 Mg Tab) 1 mg PO DAILY [facility] Stop: 06/14/21 08:59 Last Admin: 05/17/21 08:43 Dose: 1 mg Documented by: Dextrose (Dextrose 50% 50 Ml Syringe) 25 - 50 ml IV UD PRN; Protocol PRN Reason: Hypoglycemia Protocol Stop: 06/12/21 03:09 Docusate Sodium (Docusate Sodium 100 Mg Cap) 100 mg PO BID PRN PRN Reason: Constipation Stop: 06/12/21 03:09 Duloxetine HCl (Duloxetine Hcl 60 Mg Cap) 60 mg PO DAILY [facility] Stop: 06/12/21 08:59 Last Admin: 05/17/21 08:42 Dose: 60 mg Documented by: Enoxaparin Sodium (Enoxaparin Inj 40 Mg/0.4 Ml Syr) 40 mg SQ QAM [facility] Stop: 06/12/21 08:59 Last Admin: 05/17/21 08:44 Dose: 40 mg Documented by: Ferrous Sulfate (Ferrous Sulfate 325 Mg Tab) 325 mg PO BIDM [facility] Stop: 06/12/21 07:59 Last Admin: 05/17/21 08:43 Dose: 325 mg Documented by: Gabapentin (Gabapentin 100 Mg Cap) 200 mg PO TID [facility] Stop: 06/13/21 20:59 Last Admin: 05/17/21 08:43 Dose: 200 mg Documented by: Glucagon (Glucagon For Inj 1 Mg Vial) 1 mg SQ UD PRN; Protocol PRN Reason: Hypoglycemia Protocol Stop: 06/12/21 03:09 Glucose (Glucose 10 Tabs/Tube) 4 - 8 tabs PO UD PRN; Protocol PRN Reason: Hypoglycemia Protocol Stop: 06/12/21 03:09 Glucose (Glucose 40% Gel 15 Gm Tube) 15 - 30 gm PO UD PRN; Protocol PRN Reason: Hypoglycemia Protocol Stop: 06/12/21 03:09 Hydralazine HCl (Hydralazine 10 Mg Tab) 10 mg PO BID PRN PRN Reason: Hypertension Stop: 06/15/21 20:59 Last Admin: 05/16/21 21:21 Dose: 10 mg Documented by: Promethazine HCl 12.5 mg/ (Sodium Chloride) 50.5 mls @ 202 mls/hr IV Q6H PRN PRN Reason: Nausea And Vomiting Stop: 06/12/21 03:28 Last Infusion: 05/13/21 04:10 Dose: Infused Documented by: Insulin Aspart (Insulin Aspart 100 Units/Ml 3 Ml Pen) 0 units SC ACHS [facility] Stop: 06/12/21 03:29 Last Admin: 05/17/21 08:40 Dose: 2 units Documented by: Insulin Glargine (Insulin Glargine Solostar 100 Units/Ml 3 Ml Pen) 5 units SC DAILY [facility] Stop: 06/12/21 08:59 Last Admin: 05/17/21 08:46 Dose: 5 units Documented by: Labetalol HCl (Labetalol Hcl 100 Mg Tab) 100 mg PO BID [facility] Stop: 06/16/21 08:59 Last Admin: 05/17/21 08:46 Dose: 100 mg Documented by: Lisinopril (Lisinopril 40 Mg Tab) 40 mg PO DAILY [facility] Stop: 06/15/21 08:59 Last Admin: 05/17/21 08:42 Dose: 40 mg Documented by: Miscellaneous (Carbohydrates For Hypoglycemia ) 15 - 30 gm PO UD PRN PRN Reason: Hypoglycemia Protocol Stop: 06/12/21 03:09 Montelukast Sodium (Montelukast Sodium 10 Mg Tablet) 10 mg PO HS [facility] Stop: 06/12/21 20:59 Last Admin: 05/16/21 19:51 Dose: 10 mg Documented by: Olanzapine (Olanzapine 10 Mg/2.1 Ml Sdv) 5 mg IM Q6H PRN PRN Reason: Anxiety/Agitation Stop: 06/12/21 02:11 Oxycodone HCl (Oxycodone Hcl Ir 5 Mg Tab (Immediate Release)) 5 mg PO Q12H PRN PRN Reason: Breakthrough Pain Stop: 05/27/21 03:09 Last Admin: 05/16/21 21:25 Dose: 5 mg Documented by: Pantoprazole Sodium (Pantoprazole 40 Mg Tab) 40 mg PO DAILY [facility] Stop: 06/12/21 08:59 Last Admin: 05/17/21 08:43 Dose: 40 mg Documented by: Polyethylene Glycol (Polyethylene (Miralax) 17 Gm Pack) 17 gm PO DAILY PRN PRN Reason: Constipation Stop: 06/12/21 03:09 Potassium Chloride (Potassium Chloride Crtab 20 Meq Tabcr) 20 meq PO DAILY [facility] Stop: 06/14/21 08:59 Last Admin: 05/17/21 08:42 Dose: 20 meq Documented by: Sertraline HCl (Sertraline Hcl 100 Mg Tablet) 100 mg PO DAILY [facility] Stop: 06/12/21 08:59 Last Admin: 05/17/21 08:42 Dose: 100 mg Documented by: Tamsulosin HCl (Tamsulosin Hcl 0.4 Mg Cap) 0.8 mg PO DAILY [facility] Stop: 06/12/21 08:59 Last Admin: 05/17/21 08:42 Dose: 0.8 mg Documented by: Tramadol HCl (Tramadol Hcl 50 Mg Tablet) 25 - 50 mg PO Q4H PRN PRN Reason: Pain Stop: 06/13/21 06:53 Last Admin: 05/16/21 19:50 Dose: 50 mg Documented by: Umeclidinium/Vilanterol (Umeclidinium/Vilanterol 62.5/25mcg 7 Puffs/Inhaler) 1 puffs INH DAILY [facility] Stop: 06/12/21 08:59 Last Admin: 05/17/21 08:47 Dose: 1 puffs Documented by:
[2021-05-17] MEDS: MONTELUKAST SODIUM 10 MG TABLET PO SCH (20:35)
[2021-05-17] MEDS: ATORVASTATIN 40 MG TAB PO SCH (20:35)
[2021-05-17] MEDS: oxyCODONE HCL IR 5 MG TAB (IMMEDIATE RELEASE) PO PRN (23:11)
[2021-05-18] MEDS: traMADol HCL 50 MG TABLET PO PRN ×3 (03:29→20:37)
[2021-05-18 05:53] LABS: Hematocrit (blood only) 30.5 % (42-52); Hemoglobin 9.2 g/dL (14.0-18.0)
[2021-05-18 06:32] LABS: BUN Creatinine Ratio 21.4 (10-20); Calcium 9.3 mg/dl (8.5-10.1); Creatinine Clr Calc Pharmacy 88.2 ml/min; Est GFR (African American) 66.2 ml/min; Est GFR (Non-African American) 57.1 ml/min; Magnesium 2.2 mg/dl (1.8-2.4); Phosphorus 3.6 mg/dl (2.5-4.9)
[2021-05-18] MEDS: lisinopril 40 MG TAB PO SCH (07:54)
[2021-05-18] MEDS: FERROUS SULFATE 325 MG TAB PO SCH ×2 (07:54→17:48)
[2021-05-18] MEDS: BUMETANIDE 1 MG TAB PO SCH (07:54)
[2021-05-18] MEDS: DULoxetine HCL 60 MG CAP PO SCH (07:55)
[2021-05-18] MEDS: TAMSULOSIN HCL 0.4 MG CAP PO SCH (07:55)
[2021-05-18] MEDS: PANTOprazole 40 MG TAB PO SCH (07:55)
[2021-05-18] MEDS: amLODIPine BESYLATE 5 MG TAB PO SCH (07:55)
[2021-05-18] MEDS: SERTRALINE HCL 100 MG TABLET PO SCH (07:55)
[2021-05-18] MEDS: ENOXAPARIN INJ 40 MG/0.4 ML SYR SQ SCH (07:57)
[2021-05-18] MEDS: GABAPENTIN 100 MG CAP PO SCH ×3 (07:57→20:41)
[2021-05-18] MEDS: INSULIN GLARGINE SOLOSTAR 100 UNITS/ML 3 ML PEN SC SCH (07:58)
[2021-05-18] MEDS: INSULIN ASPART 100 UNITS/ML 3 ML PEN SC SCH ×4 (07:59→20:43)
[2021-05-18] MEDS: LABETALOL HCL 100 MG TAB PO SCH ×2 (08:00→20:40)
[2021-05-18] MEDS: UMECLIDINIUM/VILANTEROL 62.5/25MCG 7 PUFFS/INHALER INH SCH (08:01)
[2021-05-18] MEDS: POTASSIUM CHLORIDE CRTAB 20 MEQ TABCR PO SCH (08:01)
--- NOTE | 2021-05-18 09:23 | Hospitalist Progress Note ---
Date of Service May 18, 2021 Assessment & Plan (1) Asymptomatic hypertensive urgency: Plan: Hypertensive Urgency Non compliant -CT head:No acute intracranial findings. -Continued amlodipine, carvedilol, lisinopril - switched coreg to labetalol to improve BP Also on tamsulosin Continue current medications Monitor BP Unvaccinated for COVID 19 Patient received J & J vaccine on 05/16 Functional disability Refused Rehab placement last admission PT/OT eval Case management to help with discharge planning Family updated: Patient's brother states that he refuses family support adamantly Considers to discuss again Plan to discharge to rehab facility once arranged R wrist pain - hx of osteo, abscess and s/p surg. debridement in December w/ Dr. Stephens - seems to be well healed, no WBC elevation - wrist does not appear to be swollen or erythematous, as a matter of fact seems like both of his wrists are painful when patient moves fingers - will obtain R wrist XR and will discuss further w/ orthop. surg. Nausea, diarrhea Resolved as per patient Will consider further investigations if needed Chronic diastolic heart failure EF 60 to 65%, TTE 2020 Monitor volume status Continue home diuretics CAD Continue home medication COPD FRANCIS, CPAP intolerance Past tobacco use No signs of acute exacerbation Continue home inhalers DM II on oral medications Last HbA1c 6.18 April 2021 Continue insulin therapy while hospitalized Chronic anemia Hb at baseline DVT Px: Lovenox SQ CODE STATUS: Full code Disposition: Rehab when arranged Family: Mr. Hamlet Cheung, contact # [phone]. Ms. Bernice Mathias, contact #[phone]. Admission and Anticipated Discharge Date Admission Date: May 14, 2021 Subjective Patient is seen and examined at bedside Denies any chest pain, shortness of breath, dizziness, abdominal pain Reports chronic arthritis pain in joints Also reports pain in his right wrist, history of surgery in December BP elevated, pt started on labetolol instead of Coreg, blood pressure now better controlled Waiting for rehab placement Review of Systems Review of Systems: All systems reviewed & are unremarkable except as noted in Subjective Physical Exam Physical Exam: General Appearance: Morbidly obese M in NAD Head: normocephalic, Atraumatic Eyes: normal inspection, EOMI Neck: supple, Trachea midline Respiratory/Chest: Normal breath sounds, CTA Cardiovascular: S1, S2, No murmur Abdomen/GI:Soft, Non tender, Bowel sounds present Extremities/Musculoskeletal:normal inspection, 1+ pedal edema Neurologic/Psych:AAOX3, speech fluent, moves extremities Skin: normal color, warm Results & Data Results & Data ([facility]) Vital Signs (Past 12 Hours) Vital Signs Temp Pulse Resp BP Pulse Ox 05/18/21 08:09 36.6 C 69 20 148/81 H 90 05/18/21 04:00 36.6 C 62 18 144/77 H 90 05/17/21 22:51 36.9 C 69 17 168/74 H 94 Laboratory Results 05/18/21 05/18/21 05/18/21 Range/Units 07:34 05:31 05:31 Hgb 9.2 L (14.0-18.0) g/dL Hct 30.5 L (42-52) % Sodium 137 (136-145) mmol/L Potassium 4.0 (3.5-5.1) mmol/L Chloride 107 (98-107) mmol/L Carbon Dioxide 26 (21-32) mmol/L Anion Gap 4.0 (3-11) BUN 28 H (7-18) mg/dl Creatinine 1.31 (0.6-1.4) mg/dl Est Cr Clr Drug Dosing 88.2 ml/min Est GFR ( Amer) 66.2 ml/min Est GFR (Non-Af Amer) 57.1 ml/min BUN/Creatinine Ratio 21.4 H (10-20) Glucose 122 H (70-99) mg/dl POC Glucose 124 H (70-99) mg/dl Calcium 9.3 (8.5-10.1) mg/dl Phosphorus 3.6 (2.5-4.9) mg/dl Magnesium 2.2 (1.8-2.4) mg/dl 05/17/21 05/17/21 05/17/21 Range/Units 20:15 16:28 11:22 Hgb (14.0-18.0) g/dL Hct (42-52) % Sodium (136-145) mmol/L Potassium (3.5-5.1) mmol/L Chloride (98-107) mmol/L Carbon Dioxide (21-32) mmol/L Anion Gap (3-11) BUN (7-18) mg/dl Creatinine (0.6-1.4) mg/dl Est Cr Clr Drug Dosing ml/min Est GFR ( Amer) ml/min Est GFR (Non-Af Amer) ml/min BUN/Creatinine Ratio (10-20) Glucose (70-99) mg/dl POC Glucose 168 H 144 H 130 H (70-99) mg/dl Calcium (8.5-10.1) mg/dl Phosphorus (2.5-4.9) mg/dl Magnesium (1.8-2.4) mg/dl Medications Administered Current Inpatient Medications Acetaminophen (Acetaminophen 325 Mg Tab) 650 mg PO Q4H PRN PRN Reason: Pain or Fever Stop: 06/12/21 03:09 Last Admin: 05/16/21 03:23 Dose: 650 mg Documented by: Amlodipine Besylate (Amlodipine Besylate 5 Mg Tab) 10 mg PO DAILY [facility] Stop: 06/12/21 08:59 Last Admin: 05/18/21 07:55 Dose: 10 mg Documented by: Atorvastatin Calcium (Atorvastatin 40 Mg Tab) 40 mg PO HS [facility] Stop: 06/12/21 20:59 Last Admin: 05/17/21 20:35 Dose: 40 mg Documented by: Bumetanide (Bumetanide 1 Mg Tab) 1 mg PO DAILY [facility] Stop: 06/14/21 08:59 Last Admin: 05/18/21 07:54 Dose: 1 mg Documented by: Dextrose (Dextrose 50% 50 Ml Syringe) 25 - 50 ml IV UD PRN; Protocol PRN Reason: Hypoglycemia Protocol Stop: 06/12/21 03:09 Docusate Sodium (Docusate Sodium 100 Mg Cap) 100 mg PO BID PRN PRN Reason: Constipation Stop: 06/12/21 03:09 Duloxetine HCl (Duloxetine Hcl 60 Mg Cap) 60 mg PO DAILY [facility] Stop: 06/12/21 08:59 Last Admin: 05/18/21 07:55 Dose: 60 mg Documented by: Enoxaparin Sodium (Enoxaparin Inj 40 Mg/0.4 Ml Syr) 40 mg SQ QAM [facility] Stop: 06/12/21 08:59 Last Admin: 05/18/21 07:57 Dose: 40 mg Documented by: Ferrous Sulfate (Ferrous Sulfate 325 Mg Tab) 325 mg PO BIDM [facility] Stop: 06/12/21 07:59 Last Admin: 05/18/21 07:54 Dose: 325 mg Documented by: Gabapentin (Gabapentin 100 Mg Cap) 200 mg PO TID [facility] Stop: 06/13/21 20:59 Last Admin: 05/18/21 07:57 Dose: 200 mg Documented by: Glucagon (Glucagon For Inj 1 Mg Vial) 1 mg SQ UD PRN; Protocol PRN Reason: Hypoglycemia Protocol Stop: 06/12/21 03:09 Glucose (Glucose 10 Tabs/Tube) 4 - 8 tabs PO UD PRN; Protocol PRN Reason: Hypoglycemia Protocol Stop: 06/12/21 03:09 Glucose (Glucose 40% Gel 15 Gm Tube) 15 - 30 gm PO UD PRN; Protocol PRN Reason: Hypoglycemia Protocol Stop: 06/12/21 03:09 Hydralazine HCl (Hydralazine 10 Mg Tab) 10 mg PO BID PRN PRN Reason: Hypertension Stop: 06/15/21 20:59 Last Admin: 05/16/21 21:21 Dose: 10 mg Documented by: Promethazine HCl 12.5 mg/ (Sodium Chloride) 50.5 mls @ 202 mls/hr IV Q6H PRN PRN Reason: Nausea And Vomiting Stop: 06/12/21 03:28 Last Infusion: 05/13/21 04:10 Dose: Infused Documented by: Insulin Aspart (Insulin Aspart 100 Units/Ml 3 Ml Pen) 0 units SC ACHS [facility] Stop: 06/12/21 03:29 Last Admin: 05/18/21 07:59 Dose: 5 units Documented by: Insulin Glargine (Insulin Glargine Solostar 100 Units/Ml 3 Ml Pen) 5 units SC DAILY [facility] Stop: 06/12/21 08:59 Last Admin: 05/18/21 07:58 Dose: 5 units Documented by: Labetalol HCl (Labetalol Hcl 100 Mg Tab) 100 mg PO BID [facility] Stop: 06/16/21 08:59 Last Admin: 05/18/21 08:00 Dose: 100 mg Documented by: Lidocaine (Lidocaine 5% 1 Patch) 1 patch TD QAM [facility] Stop: 06/17/21 09:29 Lisinopril (Lisinopril 40 Mg Tab) 40 mg PO DAILY [facility] Stop: 06/15/21 08:59 Last Admin: 05/18/21 07:54 Dose: 40 mg Documented by: Miscellaneous (Carbohydrates For Hypoglycemia ) 15 - 30 gm PO UD PRN PRN Reason: Hypoglycemia Protocol Stop: 06/12/21 03:09 Miscellaneous (Remove Lidoderm Patch) 1 ea N/A DAILY@2100 [facility] Stop: 06/17/21 20:59 Montelukast Sodium (Montelukast Sodium 10 Mg Tablet) 10 mg PO HS [facility] Stop: 06/12/21 20:59 Last Admin: 05/17/21 20:35 Dose: 10 mg Documented by: Olanzapine (Olanzapine 10 Mg/2.1 Ml Sdv) 5 mg IM Q6H PRN PRN Reason: Anxiety/Agitation Stop: 06/12/21 02:11 Oxycodone HCl (Oxycodone Hcl Ir 5 Mg Tab (Immediate Release)) 5 mg PO Q12H PRN PRN Reason: Breakthrough Pain Stop: 05/27/21 03:09 Last Admin: 05/17/21 23:11 Dose: 5 mg Documented by: Pantoprazole Sodium (Pantoprazole 40 Mg Tab) 40 mg PO DAILY [facility] Stop: 06/12/21 08:59 Last Admin: 05/18/21 07:55 Dose: 40 mg Documented by: Polyethylene Glycol (Polyethylene (Miralax) 17 Gm Pack) 17 gm PO DAILY PRN PRN Reason: Constipation Stop: 06/12/21 03:09 Potassium Chloride (Potassium Chloride Crtab 20 Meq Tabcr) 20 meq PO DAILY [facility] Stop: 06/14/21 08:59 Last Admin: 05/18/21 08:01 Dose: 20 meq Documented by: Sertraline HCl (Sertraline Hcl 100 Mg Tablet) 100 mg PO DAILY [facility] Stop: 06/12/21 08:59 Last Admin: 05/18/21 07:55 Dose: 100 mg Documented by: Tamsulosin HCl (Tamsulosin Hcl 0.4 Mg Cap) 0.8 mg PO DAILY [facility] Stop: 06/12/21 08:59 Last Admin: 05/18/21 07:55 Dose: 0.8 mg Documented by: Tramadol HCl (Tramadol Hcl 50 Mg Tablet) 25 - 50 mg PO Q4H PRN PRN Reason: Pain Stop: 06/13/21 06:53 Last Admin: 05/18/21 03:29 Dose: 50 mg Documented by: Umeclidinium/Vilanterol (Umeclidinium/Vilanterol 62.5/25mcg 7 Puffs/Inhaler) 1 puffs INH DAILY [facility] Stop: 06/12/21 08:59 Last Admin: 05/18/21 08:01 Dose: 1 puffs Documented by:
[2021-05-18] MEDS: LIDOCAINE 5% 1 PATCH TD SCH (10:23)
--- NOTE | 2021-05-18 10:53 | XRay Report ---
RIGHT WRIST 2 VIEWS CLINICAL HISTORY: Right wrist pain. FINDINGS: AP and lateral views of the right wrist are correlated with radiographs of the right hand d ated 12/30/2020. The skeletal structures are osteopenic. No acute fracture is identified. There is chr onic posttraumatic deformity of the fourth and fifth metacarpals. Advanced osteoarthritic change is s een at the radiocarpal articulation where there is bony sclerosis, subchondral cyst formation, and ne ar complete loss of the joint space. There is anterior subluxation of the carpal bones at the radioca rpal joint. Degenerative change is also seen in the distal radioulnar joint. Moderate osteoarthritic change is seen throughout the wrist, greatest at the first carpometacarpal joint. Osteoarthritic fowler ge is also seen at the metacarpophalangeal joints. Erosive change is noted of the third metacarpophal angeal joint, and this has progressed as compared to 12/30/2020. Question proximal migration of the ca pitate. A SLAC wrist is not excluded. IMPRESSION: 1. Diffuse soft tissue edema with no fracture identified. 2. Osteopenia and advanced arthritic change as above. 3. Erosive change at the third metacarpophalangeal joint is new from previous and likely on a degener ative basis. Clinical correlation will be essential. Electronically signed by: Theron Veronica M.D. 05/18/2021 10:51 AM
[2021-05-18] MEDS: oxyCODONE HCL IR 5 MG TAB (IMMEDIATE RELEASE) PO PRN (14:12)
[2021-05-18] MEDS: MONTELUKAST SODIUM 10 MG TABLET PO SCH (20:40)
[2021-05-18] MEDS: DICLOFENAC SOD 1% GEL 100 GM TUBE EXT SCH (20:41)
[2021-05-18] MEDS: ATORVASTATIN 40 MG TAB PO SCH (20:41)
[2021-05-18] MEDS ORDERED: oxyCODONE HCL IR 5 MG TAB (IMMEDIATE RELEASE) PO PRN (23:35)
[2021-05-19] MEDS ORDERED: methylPREDNISolone 40 MG in SYRINGE 0 ML IV STA (04:10)
--- NOTE | 2021-05-19 08:07 | Orthopedic Consultation ---
Date of Service May 19, 2021 Assessment & Plan (1) Wrist arthritis: DIscussed treatement with patient. Can use tyleno and/or NSAIDS if OK from medical standpoint. We will get him a wrist splint for right wrist to see if it helps. My sense is that he will not wear it much. If he likes it, we can get one for left wrist as well. No signs of Infection. Not a good candidate for steroid injection considering relatively recent hand infection. F/up prn. History of Present Illness Reason for Consultation: . Bilateral wrist pain...right greater than left Requesting Physician: . Attending Physician: Moi Mejia MD . 66 year old gentleman with multiple medical co-morbidities with long-standing bilateral wrist pain. He is status-post extensive right hand I & D for infection back in December of this year. Allergies Allergy/AdvReac Type Severity Reaction Status Date / Time No Known Allergies Allergy Verified 05/12/21 22:22 Home Medications Medication Instructions Recorded Confirmed Type acetaminophen 325 mg tablet 650 mg PO Q4 PRN 11/29/20 04/28/21 History (Tylenol) docusate sodium 100 mg capsule 100 mg PO BID PRN 11/29/20 04/28/21 History (Stool Softener) polyethylene glycol 3350 17 gram 17 g PO DAILY PRN 11/29/20 04/28/21 History oral powder packet (Miralax) sennosides 8.6 mg capsule (senna) 8.6 mg PO DAILY PRN 02/17/21 04/28/21 History oxycodone 5 mg tablet (Roxicodone) 5 mg PO Q12H PRN 5 Days #10 tab 02/23/21 04/28/21 Rx albuterol sulfate 90 mcg/actuation 2 puff INHALATION QID PRN 04/29/21 04/29/21 History aerosol inhaler (Ventolin HFA) potassium chloride 20 mEq 20 meq PO DAILY 04/29/21 04/29/21 History tablet,extended release(part/cryst) amlodipine 5 mg tablet (Norvasc) 10 mg PO DAILY #14 tab 05/09/21 Rx atorvastatin 40 mg tablet 40 mg PO HS #7 tab 05/09/21 Rx blood sugar diagnostic (Gluco #50 ea 05/09/21 Rx Navii Test Strip) blood-glucose meter (Gluco Navii #1 ea 05/09/21 Rx Glucose Monitor) bumetanide 1 mg tablet 1 mg PO DAILY #7 tab 05/09/21 Rx carvedilol 12.5 mg tablet 12.5 mg PO BID #14 tab 05/09/21 Rx duloxetine 60 mg capsule,delayed 60 mg PO DAILY #7 cap 05/09/21 Rx release ferrous sulfate 325 mg (65 mg 325 mg PO BIDM #14 tab 05/09/21 Rx iron) tablet,delayed release gabapentin 100 mg capsule 200 mg PO TID #20 cap 05/09/21 Rx lancets #100 ea 05/09/21 Rx lisinopril 30 mg tablet 30 mg PO DAILY #7 tab 05/09/21 Rx metformin 500 mg tablet 500 mg PO BIDWMEAL #14 tab 05/09/21 Rx montelukast 10 mg tablet 10 mg PO HS #7 tab 05/09/21 Rx (Singulair) pantoprazole 40 mg tablet,delayed 40 mg PO DAILY #7 tab 05/09/21 Rx release sertraline 100 mg tablet (Zoloft) 100 mg PO DAILY #7 tab 05/09/21 Rx tamsulosin 0.4 mg capsule (Flomax) 0.8 mg PO DAILY #14 cap 05/09/21 Rx umeclidinium 62.5 mcg-vilanterol 1 inh INHALATION DAILY #14 ea 05/09/21 Rx 25 mcg/actuation powdr for inhalation (Anoro Ellipta) Past Med/Surg History Medical History (Updated 05/19/21 @ 08:06 by Jarod Stephens MD) Abnormal posture Ambulatory dysfunction Chronic diastolic CHF (congestive heart failure) Chronic respiratory failure with hypoxia Coronary artery disease Depression Diabetes mellitus, type II Gout History of blood transfusion History of COVID-19 Hyperlipidemia Hypertension Mood disorder Morbid obesity FRANCIS (obstructive sleep apnea) Septic arthritis Ventricular tachycardia Wrist arthritis Wrist arthritis Surgical History Cataract extraction status, unspecified eye H/O knee surgery History of incision and drainage Family History Other Throat cancer Social History Smoking Status: Never smoker Tobacco Type: Cigarettes Second Hand Exposure: Yes (Pts father); Hx Alcohol Use: No Hx Substance Use: No Preferred Language: Bengali Communication Ability: Effective Optometry Assistant Required: No Beliefs That Will Affect Care: None marital status: Single Current Living Situation: Alone Current Living Situation Comment: [facility] How many Children do You have: 0 Feels Safe at Home: Yes Safety Concerns: Feels Safe At This Time Assistive Devices: Walker Assistive Devices Comment: only PRN Review of Systems All systems reviewed & are unremarkable except as noted in HPI & below. Physical Exam . Physical exam of both wrists reveal slightly limited ROM in all directions. No redness or warmth. Pain with extremes of ROM. N/V intact Results & Data Results & Data Laboratory Results . Diagnostic Findings . 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
[2021-05-19 08:58] LABS: Hemoglobin 9.7 g/dL (14.0-18.0); Mean Corpuscular Hemoglobin 26.5 pg (25-34); Mean Corpuscular Hgb Conc 30.3 g/dL (32-36); Mean Corpuscular Volume 87.4 fL (80-100); Mean Platelet Volume 9.9 fL (7.4-10.4); Platelet Count 187 K/uL (130-400); RDW Coefficient of Variation 17.3 % (11.5-14.5); RDW Standard Deviation 55.7 fL (36.4-46.3); Red Blood Count 3.66 M/uL (4.7-6.1); White Blood Count 6.94 K/uL (4.8-10.8)
[2021-05-19 09:15] LABS: BUN Creatinine Ratio 19.8 (10-20); Calcium 9.1 mg/dl (8.5-10.1); Creatinine Clr Calc Pharmacy 85.6 ml/min; Est GFR (African American) 64.4 ml/min; Est GFR (Non-African American) 55.6 ml/min; Magnesium 1.9 mg/dl (1.8-2.4); Potassium 4.1 mmol/L (3.5-5.1)
[2021-05-19 09:24] LABS: Phosphorus 2.5 mg/dl (2.5-4.9)
[2021-05-19] MEDS: ENOXAPARIN INJ 40 MG/0.4 ML SYR SQ SCH (09:43)
[2021-05-19] MEDS: INSULIN GLARGINE SOLOSTAR 100 UNITS/ML 3 ML PEN SC SCH (09:51)
[2021-05-19] MEDS: INSULIN ASPART 100 UNITS/ML 3 ML PEN SC SCH ×4 (09:52→21:16)
[2021-05-19] MEDS: FERROUS SULFATE 325 MG TAB PO SCH ×2 (09:53→16:04)
[2021-05-19] MEDS: SERTRALINE HCL 100 MG TABLET PO SCH (09:54)
[2021-05-19] MEDS: DULoxetine HCL 60 MG CAP PO SCH (09:55)
[2021-05-19] MEDS: LABETALOL HCL 100 MG TAB PO SCH ×2 (09:55→21:11)
[2021-05-19] MEDS: GABAPENTIN 100 MG CAP PO SCH ×3 (09:55→21:12)
[2021-05-19] MEDS: lisinopril 40 MG TAB PO SCH (09:55)
[2021-05-19] MEDS: PANTOprazole 40 MG TAB PO SCH (09:56)
[2021-05-19] MEDS: amLODIPine BESYLATE 5 MG TAB PO SCH (09:56)
[2021-05-19] MEDS: BUMETANIDE 1 MG TAB PO SCH (09:57)
[2021-05-19] MEDS: DICLOFENAC SOD 1% GEL 100 GM TUBE EXT SCH ×2 (09:57→21:13)
[2021-05-19] MEDS: LIDOCAINE 5% 1 PATCH TD SCH (09:58)
[2021-05-19] MEDS: TAMSULOSIN HCL 0.4 MG CAP PO SCH (09:58)
[2021-05-19] MEDS: UMECLIDINIUM/VILANTEROL 62.5/25MCG 7 PUFFS/INHALER INH SCH (09:58)
[2021-05-19] MEDS: POTASSIUM CHLORIDE CRTAB 20 MEQ TABCR PO SCH (10:11)
--- NOTE | 2021-05-19 19:55 | Hospitalist Progress Note ---
Date of Service May 19, 2021 Assessment & Plan (1) Asymptomatic hypertensive urgency: Plan: Hypertensive Urgency Non compliant -CT head:No acute intracranial findings. -Continued amlodipine, carvedilol, lisinopril - switched coreg to labetalol to improve BP Also on tamsulosin Continue current medications Monitor BP Unvaccinated for COVID 19 Patient received J & J vaccine on 05/16 Functional disability Refused Rehab placement last admission PT/OT eval Case management to help with discharge planning Family updated: Patient's brother states that he refuses family support adamantly Considers to discuss again Plan to discharge to rehab facility once arranged R wrist pain - hx of osteo, abscess and s/p surg. debridement in December w/ Dr. Stephens - seems to be well healed, no WBC elevation - wrist does not appear to be swollen or erythematous, as a matter of fact seems like both of his wrists are painful when patient moves fingers - R wrist XR shows significant arthritis - orthop. surg. consulted, don't believe any infectious process, also don't recommend steroid at this time d/t hx of significant infection and s/p surgery Nausea, diarrhea Resolved as per patient Will consider further investigations if needed Chronic diastolic heart failure EF 60 to 65%, TTE 2020 Monitor volume status Continue home diuretics CAD Continue home medication COPD FRANCIS, CPAP intolerance Past tobacco use No signs of acute exacerbation Continue home inhalers DM II on oral medications Last HbA1c 6.18 April 2021 Continue insulin therapy while hospitalized Chronic anemia Hb at baseline DVT Px: Lovenox SQ CODE STATUS: Full code Disposition: Rehab when arranged Family: Mr. Hamlet Cheung, contact # [phone]. Ms. Bernice Mathias, contact #[phone]. Admission and Anticipated Discharge Date Admission Date: May 14, 2021 Subjective Patient is seen and examined at bedside Denies any chest pain, shortness of breath, dizziness, abdominal pain Reports chronic arthritis pain in joints Also reports pain in his right wrist, history of surgery in December BP elevated, pt started on labetolol instead of Coreg, blood pressure now better controlled Waiting for rehab placement Review of Systems Review of Systems: All systems reviewed & are unremarkable except as noted in Subjective Physical Exam Physical Exam: General Appearance: Morbidly obese M in NAD Head: normocephalic, Atraumatic Eyes: normal inspection, EOMI Neck: supple, Trachea midline Respiratory/Chest: Normal breath sounds, CTA Cardiovascular: S1, S2, No murmur Abdomen/GI:Soft, Non tender, Bowel sounds present Extremities/Musculoskeletal:normal inspection, 1+ pedal edema Neurologic/Psych:AAOX3, speech fluent, moves extremities Skin: normal color, warm Results & Data Results & Data ([facility]) Vital Signs (Past 12 Hours) Vital Signs Temp Pulse Resp BP Pulse Ox 05/19/21 16:10 36.3 C L 68 20 166/76 H 94 05/19/21 11:28 36.5 C 62 20 166/77 H 93 Laboratory Results 05/19/21 05/19/21 05/19/21 Range/Units 16:49 11:25 08:40 WBC (4.8-10.8) K/uL RBC (4.7-6.1) M/uL Hgb (14.0-18.0) g/dL Hct (42-52) % MCV (80-100) fL MCH (25-34) pg MCHC (32-36) g/dL RDW Std Deviation (36.4-46.3) fL RDW Coeff of Xin (11.5-14.5) % Plt Count (130-400) K/uL MPV (7.4-10.4) fL ESR 77 H (0-20) mm/hr Sodium (136-145) mmol/L Potassium (3.5-5.1) mmol/L Chloride (98-107) mmol/L Carbon Dioxide (21-32) mmol/L Anion Gap (3-11) BUN (7-18) mg/dl Creatinine (0.6-1.4) mg/dl Est Cr Clr Drug Dosing ml/min Est GFR ( Amer) ml/min Est GFR (Non-Af Amer) ml/min BUN/Creatinine Ratio (10-20) Glucose (70-99) mg/dl POC Glucose 237 H 270 H (70-99) mg/dl Uric Acid (2.6-7.2) mg/dl Calcium (8.5-10.1) mg/dl Phosphorus (2.5-4.9) mg/dl Magnesium (1.8-2.4) mg/dl 05/19/21 05/19/21 05/19/21 Range/Units 08:40 08:40 07:41 WBC 6.94 (4.8-10.8) K/uL RBC 3.66 L (4.7-6.1) M/uL Hgb 9.7 L (14.0-18.0) g/dL Hct 32.0 L (42-52) % MCV 87.4 (80-100) fL MCH 26.5 (25-34) pg MCHC 30.3 L (32-36) g/dL RDW Std Deviation 55.7 H (36.4-46.3) fL RDW Coeff of Xin 17.3 H (11.5-14.5) % Plt Count 187 (130-400) K/uL MPV 9.9 (7.4-10.4) fL ESR (0-20) mm/hr Sodium 138 (136-145) mmol/L Potassium 4.1 (3.5-5.1) mmol/L Chloride 107 (98-107) mmol/L Carbon Dioxide 23 (21-32) mmol/L Anion Gap 8.0 (3-11) BUN 27 H (7-18) mg/dl Creatinine 1.34 (0.6-1.4) mg/dl Est Cr Clr Drug Dosing 85.6 ml/min Est GFR ( Amer) 64.4 ml/min Est GFR (Non-Af Amer) 55.6 ml/min BUN/Creatinine Ratio 19.8 (10-20) Glucose 223 H (70-99) mg/dl POC Glucose 223 H (70-99) mg/dl Uric Acid 10.0 H (2.6-7.2) mg/dl Calcium 9.1 (8.5-10.1) mg/dl Phosphorus 2.5 D (2.5-4.9) mg/dl Magnesium 1.9 (1.8-2.4) mg/dl 05/18/21 Range/Units 20:09 WBC (4.8-10.8) K/uL RBC (4.7-6.1) M/uL Hgb (14.0-18.0) g/dL Hct (42-52) % MCV (80-100) fL MCH (25-34) pg MCHC (32-36) g/dL RDW Std Deviation (36.4-46.3) fL RDW Coeff of Xin (11.5-14.5) % Plt Count (130-400) K/uL MPV (7.4-10.4) fL ESR (0-20) mm/hr Sodium (136-145) mmol/L Potassium (3.5-5.1) mmol/L Chloride (98-107) mmol/L Carbon Dioxide (21-32) mmol/L Anion Gap (3-11) BUN (7-18) mg/dl Creatinine (0.6-1.4) mg/dl Est Cr Clr Drug Dosing ml/min Est GFR ( Amer) ml/min Est GFR (Non-Af Amer) ml/min BUN/Creatinine Ratio (10-20) Glucose (70-99) mg/dl POC Glucose 134 H (70-99) mg/dl Uric Acid (2.6-7.2) mg/dl Calcium (8.5-10.1) mg/dl Phosphorus (2.5-4.9) mg/dl Magnesium (1.8-2.4) mg/dl Medications Administered Current Inpatient Medications Acetaminophen (Acetaminophen 325 Mg Tab) 650 mg PO Q4H PRN PRN Reason: Pain or Fever Stop: 06/12/21 03:09 Last Admin: 05/16/21 03:23 Dose: 650 mg Documented by: Amlodipine Besylate (Amlodipine Besylate 5 Mg Tab) 10 mg PO DAILY [facility] Stop: 06/12/21 08:59 Last Admin: 05/19/21 09:56 Dose: 10 mg Documented by: Atorvastatin Calcium (Atorvastatin 40 Mg Tab) 40 mg PO HS [facility] Stop: 06/12/21 20:59 Last Admin: 05/18/21 20:41 Dose: 40 mg Documented by: Bumetanide (Bumetanide 1 Mg Tab) 1 mg PO DAILY [facility] Stop: 06/14/21 08:59 Last Admin: 05/19/21 09:57 Dose: 1 mg Documented by: Dextrose (Dextrose 50% 50 Ml Syringe) 25 - 50 ml IV UD PRN; Protocol PRN Reason: Hypoglycemia Protocol Stop: 06/12/21 03:09 Diclofenac Sodium (Diclofenac Sod 1% Gel 100 Gm Tube) 4 gm EXT BID [facility] Stop: 06/17/21 20:59 Last Admin: 05/19/21 09:57 Dose: 4 gm Documented by: Docusate Sodium (Docusate Sodium 100 Mg Cap) 100 mg PO BID PRN PRN Reason: Constipation Stop: 06/12/21 03:09 Duloxetine HCl (Duloxetine Hcl 60 Mg Cap) 60 mg PO DAILY [facility] Stop: 06/12/21 08:59 Last Admin: 05/19/21 09:55 Dose: 60 mg Documented by: Enoxaparin Sodium (Enoxaparin Inj 40 Mg/0.4 Ml Syr) 40 mg SQ QAM [facility] Stop: 06/12/21 08:59 Last Admin: 05/19/21 09:43 Dose: 40 mg Documented by: Ferrous Sulfate (Ferrous Sulfate 325 Mg Tab) 325 mg PO BIDM [facility] Stop: 06/12/21 07:59 Last Admin: 05/19/21 16:04 Dose: 325 mg Documented by: Gabapentin (Gabapentin 100 Mg Cap) 200 mg PO TID [facility] Stop: 06/13/21 20:59 Last Admin: 05/19/21 13:52 Dose: 200 mg Documented by: Glucagon (Glucagon For Inj 1 Mg Vial) 1 mg SQ UD PRN; Protocol PRN Reason: Hypoglycemia Protocol Stop: 06/12/21 03:09 Glucose (Glucose 10 Tabs/Tube) 4 - 8 tabs PO UD PRN; Protocol PRN Reason: Hypoglycemia Protocol Stop: 06/12/21 03:09 Glucose (Glucose 40% Gel 15 Gm Tube) 15 - 30 gm PO UD PRN; Protocol PRN Reason: Hypoglycemia Protocol Stop: 06/12/21 03:09 Hydralazine HCl (Hydralazine 10 Mg Tab) 10 mg PO BID PRN PRN Reason: Hypertension Stop: 06/15/21 20:59 Last Admin: 05/16/21 21:21 Dose: 10 mg Documented by: Promethazine HCl 12.5 mg/ (Sodium Chloride) 50.5 mls @ 202 mls/hr IV Q6H PRN PRN Reason: Nausea And Vomiting Stop: 06/12/21 03:28 Last Infusion: 05/13/21 04:10 Dose: Infused Documented by: Insulin Aspart (Insulin Aspart 100 Units/Ml 3 Ml Pen) 0 units SC ACHS [facility] Stop: 06/12/21 03:29 Last Admin: 05/19/21 17:47 Dose: 8 units Documented by: Insulin Glargine (Insulin Glargine Solostar 100 Units/Ml 3 Ml Pen) 5 units SC DAILY [facility] Stop: 06/12/21 08:59 Last Admin: 05/19/21 09:51 Dose: 5 units Documented by: Labetalol HCl (Labetalol Hcl 100 Mg Tab) 100 mg PO BID [facility] Stop: 06/16/21 08:59 Last Admin: 05/19/21 09:55 Dose: 100 mg Documented by: Lidocaine (Lidocaine 5% 1 Patch) 1 patch TD QAM [facility] Stop: 06/17/21 09:29 Last Admin: 05/19/21 09:58 Dose: Not Given Documented by: Lisinopril (Lisinopril 40 Mg Tab) 40 mg PO DAILY [facility] Stop: 06/15/21 08:59 Last Admin: 05/19/21 09:55 Dose: 40 mg Documented by: Miscellaneous (Carbohydrates For Hypoglycemia ) 15 - 30 gm PO UD PRN PRN Reason: Hypoglycemia Protocol Stop: 06/12/21 03:09 Miscellaneous (Remove Lidoderm Patch) 1 ea N/A DAILY@2100 [facility] Stop: 06/17/21 20:59 Last Admin: 05/18/21 20:42 Dose: 1 ea Documented by: Montelukast Sodium (Montelukast Sodium 10 Mg Tablet) 10 mg PO HS [facility] Stop: 06/12/21 20:59 Last Admin: 05/18/21 20:40 Dose: 10 mg Documented by: Olanzapine (Olanzapine 10 Mg/2.1 Ml Sdv) 5 mg IM Q6H PRN PRN Reason: Anxiety/Agitation Stop: 06/12/21 02:11 Oxycodone HCl (Oxycodone Hcl Ir 5 Mg Tab (Immediate Release)) 5 mg PO Q6H PRN PRN Reason: Breakthrough Pain Stop: 05/27/21 03:09 Pantoprazole Sodium (Pantoprazole 40 Mg Tab) 40 mg PO DAILY [facility] Stop: 06/12/21 08:59 Last Admin: 05/19/21 09:56 Dose: 40 mg Documented by: Polyethylene Glycol (Polyethylene (Miralax) 17 Gm Pack) 17 gm PO DAILY PRN PRN Reason: Constipation Stop: 06/12/21 03:09 Potassium Chloride (Potassium Chloride Crtab 20 Meq Tabcr) 20 meq PO DAILY [facility] Stop: 06/14/21 08:59 Last Admin: 05/19/21 10:11 Dose: 20 meq Documented by: Sertraline HCl (Sertraline Hcl 100 Mg Tablet) 100 mg PO DAILY [facility] Stop: 06/12/21 08:59 Last Admin: 05/19/21 09:54 Dose: 100 mg Documented by: Tamsulosin HCl (Tamsulosin Hcl 0.4 Mg Cap) 0.8 mg PO DAILY [facility] Stop: 06/12/21 08:59 Last Admin: 05/19/21 09:58 Dose: 0.8 mg Documented by: Tramadol HCl (Tramadol Hcl 50 Mg Tablet) 25 - 50 mg PO Q4H PRN PRN Reason: Pain Stop: 06/13/21 06:53 Last Admin: 05/18/21 20:37 Dose: 50 mg Documented by: Umeclidinium/Vilanterol (Umeclidinium/Vilanterol 62.5/25mcg 7 Puffs/Inhaler) 1 puffs INH DAILY [facility] Stop: 06/12/21 08:59 Last Admin: 05/19/21 09:58 Dose: 1 puffs Documented by:
[2021-05-19] MEDS: MONTELUKAST SODIUM 10 MG TABLET PO SCH (21:11)
[2021-05-19] MEDS: ATORVASTATIN 40 MG TAB PO SCH (21:13)
--- NOTE | 2021-05-20 07:21 | Hospitalist Progress Note ---
Date of Service May 20, 2021 Assessment & Plan (1) Asymptomatic hypertensive urgency: Plan: Hypertensive Urgency Non compliant -CT head:No acute intracranial findings. -Continued amlodipine, carvedilol, lisinopril - switched coreg to labetalol to improve BP Also on tamsulosin Continue current medications Monitor BP Currently blood pressure seems to be well controlled Unvaccinated for COVID 19 Patient received J & J vaccine on 05/16 Functional disability Refused Rehab placement last admission PT/OT eval Case management to help with discharge planning Family updated: Patient's brother states that he refuses family support adamantly Considers to discuss again Plan to discharge to rehab facility once arranged R wrist pain - hx of osteo, abscess and s/p surg. debridement in December w/ Dr. Stephens - seems to be well healed, no WBC elevation - wrist does not appear to be swollen or erythematous, as a matter of fact seems like both of his wrists are painful when patient moves fingers - R wrist XR shows significant arthritis - orthop. surg. consulted, don't believe any infectious process, also don't recommend steroid at this time d/t hx of significant infection and s/p surgery Chronic joint pain -Patient has history of arthritis -ESR however elevated as well as uric acid level -Patient reports that he was told in the past that he had gout -We will try colchicine Nausea, diarrhea Resolved as per patient Will consider further investigations if needed Chronic diastolic heart failure EF 60 to 65%, TTE 2020 Monitor volume status Continue home diuretics CAD Continue home medication COPD FRANCIS, CPAP intolerance Past tobacco use No signs of acute exacerbation Continue home inhalers DM II on oral medications Last HbA1c 6.18 April 2021 Continue insulin therapy while hospitalized Chronic anemia Hb at baseline DVT Px: Lovenox SQ CODE STATUS: Full code Disposition: Rehab when arranged Family: Mr. Hamlet Cheung, contact # [phone]. Ms. Bernice Mathias, contact #[phone]. Admission and Anticipated Discharge Date Admission Date: May 14, 2021 Subjective Patient is seen and examined at bedside Denies any chest pain, shortness of breath, dizziness, abdominal pain Reports chronic arthritis pain in joints Waiting for rehab placement Review of Systems Review of Systems: All systems reviewed & are unremarkable except as noted in Subjective Physical Exam Physical Exam: General Appearance: Morbidly obese M in NAD Head: normocephalic, Atraumatic Eyes: normal inspection, EOMI Neck: supple, Trachea midline Respiratory/Chest: Normal breath sounds, CTA Cardiovascular: S1, S2, No murmur Abdomen/GI:Soft, Non tender, Bowel sounds present Extremities/Musculoskeletal:normal inspection, 1+ pedal edema Neurologic/Psych:AAOX3, speech fluent, moves extremities Skin: normal color, warm Results & Data Results & Data ([facility]) Vital Signs (Past 12 Hours) Vital Signs Temp Pulse Resp BP Pulse Ox 05/20/21 01:21 36.5 C 59 L 18 159/75 H 94 Medications Administered Current Inpatient Medications Acetaminophen (Acetaminophen 325 Mg Tab) 650 mg PO Q4H PRN PRN Reason: Pain or Fever Stop: 06/12/21 03:09 Last Admin: 05/16/21 03:23 Dose: 650 mg Documented by: Amlodipine Besylate (Amlodipine Besylate 5 Mg Tab) 10 mg PO DAILY [facility] Stop: 06/12/21 08:59 Last Admin: 05/19/21 09:56 Dose: 10 mg Documented by: Atorvastatin Calcium (Atorvastatin 40 Mg Tab) 40 mg PO HS [facility] Stop: 06/12/21 20:59 Last Admin: 05/19/21 21:13 Dose: 40 mg Documented by: Bumetanide (Bumetanide 1 Mg Tab) 1 mg PO DAILY [facility] Stop: 06/14/21 08:59 Last Admin: 05/19/21 09:57 Dose: 1 mg Documented by: Dextrose (Dextrose 50% 50 Ml Syringe) 25 - 50 ml IV UD PRN; Protocol PRN Reason: Hypoglycemia Protocol Stop: 06/12/21 03:09 Diclofenac Sodium (Diclofenac Sod 1% Gel 100 Gm Tube) 4 gm EXT BID [facility] Stop: 06/17/21 20:59 Last Admin: 05/19/21 21:13 Dose: 4 gm Documented by: Docusate Sodium (Docusate Sodium 100 Mg Cap) 100 mg PO BID PRN PRN Reason: Constipation Stop: 06/12/21 03:09 Duloxetine HCl (Duloxetine Hcl 60 Mg Cap) 60 mg PO DAILY [facility] Stop: 06/12/21 08:59 Last Admin: 05/19/21 09:55 Dose: 60 mg Documented by: Enoxaparin Sodium (Enoxaparin Inj 40 Mg/0.4 Ml Syr) 40 mg SQ QAM [facility] Stop: 06/12/21 08:59 Last Admin: 12/10/21 09:43 Dose: 40 mg Documented by: Ferrous Sulfate (Ferrous Sulfate 325 Mg Tab) 325 mg PO BIDM [facility] Stop: 06/12/21 07:59 Last Admin: 05/19/21 16:04 Dose: 325 mg Documented by: Gabapentin (Gabapentin 100 Mg Cap) 200 mg PO TID [facility] Stop: 06/13/21 20:59 Last Admin: 05/19/21 21:12 Dose: 200 mg Documented by: Glucagon (Glucagon For Inj 1 Mg Vial) 1 mg SQ UD PRN; Protocol PRN Reason: Hypoglycemia Protocol Stop: 06/12/21 03:09 Glucose (Glucose 10 Tabs/Tube) 4 - 8 tabs PO UD PRN; Protocol PRN Reason: Hypoglycemia Protocol Stop: 06/12/21 03:09 Glucose (Glucose 40% Gel 15 Gm Tube) 15 - 30 gm PO UD PRN; Protocol PRN Reason: Hypoglycemia Protocol Stop: 06/12/21 03:09 Hydralazine HCl (Hydralazine 10 Mg Tab) 10 mg PO BID PRN PRN Reason: Hypertension Stop: 06/15/21 20:59 Last Admin: 05/16/21 21:21 Dose: 10 mg Documented by: Promethazine HCl 12.5 mg/ (Sodium Chloride) 50.5 mls @ 202 mls/hr IV Q6H PRN PRN Reason: Nausea And Vomiting Stop: 06/12/21 03:28 Last Infusion: 05/13/21 04:10 Dose: Infused Documented by: Insulin Aspart (Insulin Aspart 100 Units/Ml 3 Ml Pen) 0 units SC ACHS [facility] Stop: 06/12/21 03:29 Last Admin: 05/19/21 21:16 Dose: 6 units Documented by: Insulin Glargine (Insulin Glargine Solostar 100 Units/Ml 3 Ml Pen) 5 units SC DAILY [facility] Stop: 06/12/21 08:59 Last Admin: 05/19/21 09:51 Dose: 5 units Documented by: Labetalol HCl (Labetalol Hcl 100 Mg Tab) 100 mg PO BID [facility] Stop: 06/16/21 08:59 Last Admin: 05/19/21 21:11 Dose: 100 mg Documented by: Lidocaine (Lidocaine 5% 1 Patch) 1 patch TD QAM [facility] Stop: 06/17/21 09:29 Last Admin: 05/19/21 09:58 Dose: Not Given Documented by: Lisinopril (Lisinopril 40 Mg Tab) 40 mg PO DAILY [facility] Stop: 06/15/21 08:59 Last Admin: 05/19/21 09:55 Dose: 40 mg Documented by: Miscellaneous (Carbohydrates For Hypoglycemia ) 15 - 30 gm PO UD PRN PRN Reason: Hypoglycemia Protocol Stop: 06/12/21 03:09 Miscellaneous (Remove Lidoderm Patch) 1 ea N/A DAILY@2100 [facility] Stop: 06/17/21 20:59 Last Admin: 05/19/21 21:14 Dose: 1 ea Documented by: Montelukast Sodium (Montelukast Sodium 10 Mg Tablet) 10 mg PO HS [facility] Stop: 06/12/21 20:59 Last Admin: 05/19/21 21:11 Dose: 10 mg Documented by: Olanzapine (Olanzapine 10 Mg/2.1 Ml Sdv) 5 mg IM Q6H PRN PRN Reason: Anxiety/Agitation Stop: 06/12/21 02:11 Oxycodone HCl (Oxycodone Hcl Ir 5 Mg Tab (Immediate Release)) 5 mg PO Q6H PRN PRN Reason: Breakthrough Pain Stop: 05/27/21 03:09 Pantoprazole Sodium (Pantoprazole 40 Mg Tab) 40 mg PO DAILY [facility] Stop: 06/12/21 08:59 Last Admin: 05/19/21 09:56 Dose: 40 mg Documented by: Polyethylene Glycol (Polyethylene (Miralax) 17 Gm Pack) 17 gm PO DAILY PRN PRN Reason: Constipation Stop: 06/12/21 03:09 Potassium Chloride (Potassium Chloride Crtab 20 Meq Tabcr) 20 meq PO DAILY [facility] Stop: 06/14/21 08:59 Last Admin: 05/19/21 10:11 Dose: 20 meq Documented by: Sertraline HCl (Sertraline Hcl 100 Mg Tablet) 100 mg PO DAILY [facility] Stop: 06/12/21 08:59 Last Admin: 05/19/21 09:54 Dose: 100 mg Documented by: Tamsulosin HCl (Tamsulosin Hcl 0.4 Mg Cap) 0.8 mg PO DAILY [facility] Stop: 06/12/21 08:59 Last Admin: 05/19/21 09:58 Dose: 0.8 mg Documented by: Tramadol HCl (Tramadol Hcl 50 Mg Tablet) 25 - 50 mg PO Q4H PRN PRN Reason: Pain Stop: 06/13/21 06:53 Last Admin: 05/18/21 20:37 Dose: 50 mg Documented by: Umeclidinium/Vilanterol (Umeclidinium/Vilanterol 62.5/25mcg 7 Puffs/Inhaler) 1 puffs INH DAILY [facility] Stop: 06/12/21 08:59 Last Admin: 05/19/21 09:58 Dose: 1 puffs Documented by:
[2021-05-20] MEDS: GABAPENTIN 100 MG CAP PO SCH ×3 (08:53→20:46)
[2021-05-20] MEDS: lisinopril 40 MG TAB PO SCH (08:54)
[2021-05-20] MEDS: BUMETANIDE 1 MG TAB PO SCH (08:54)
[2021-05-20] MEDS: DULoxetine HCL 60 MG CAP PO SCH (08:54)
[2021-05-20] MEDS: LABETALOL HCL 100 MG TAB PO SCH ×3 (08:54→20:51)
[2021-05-20] MEDS: PANTOprazole 40 MG TAB PO SCH (08:54)
[2021-05-20] MEDS: SERTRALINE HCL 100 MG TABLET PO SCH (08:55)
[2021-05-20] MEDS: amLODIPine BESYLATE 5 MG TAB PO SCH (08:55)
[2021-05-20] MEDS: UMECLIDINIUM/VILANTEROL 62.5/25MCG 7 PUFFS/INHALER INH SCH (08:56)
[2021-05-20] MEDS: TAMSULOSIN HCL 0.4 MG CAP PO SCH (08:56)
[2021-05-20] MEDS: DICLOFENAC SOD 1% GEL 100 GM TUBE EXT SCH ×3 (08:57→20:47)
[2021-05-20] MEDS: ENOXAPARIN INJ 40 MG/0.4 ML SYR SQ SCH (08:57)
[2021-05-20] MEDS: INSULIN ASPART 100 UNITS/ML 3 ML PEN SC SCH ×4 (09:00→20:47)
[2021-05-20] MEDS: INSULIN GLARGINE SOLOSTAR 100 UNITS/ML 3 ML PEN SC SCH (09:01)
[2021-05-20] MEDS: POTASSIUM CHLORIDE CRTAB 20 MEQ TABCR PO SCH (09:06)
[2021-05-20] MEDS: FERROUS SULFATE 325 MG TAB PO SCH ×2 (09:47→17:11)
[2021-05-20] MEDS: LIDOCAINE 5% 1 PATCH TD SCH (09:48)
[2021-05-20] MEDS: MONTELUKAST SODIUM 10 MG TABLET PO SCH (20:41)
[2021-05-20] MEDS: COLCHICINE 0.6 MG TAB PO SCH (20:45)
[2021-05-20] MEDS: ATORVASTATIN 40 MG TAB PO SCH (20:46)
--- NOTE | 2021-05-21 08:15 | Hospitalist Progress Note ---
Date of Service May 21, 2021 Assessment & Plan (1) Asymptomatic hypertensive urgency: Plan: Hypertensive Urgency Non compliant -CT head:No acute intracranial findings. -Continued amlodipine, carvedilol, lisinopril - switched coreg to labetalol to improve BP Also on tamsulosin Continue current medications Monitor BP Currently blood pressure seems to be well controlled Unvaccinated for COVID 19 Patient received J & J vaccine on 05/16 Functional disability Refused Rehab placement last admission PT/OT eval Case management to help with discharge planning Family updated: Patient's brother states that he refuses family support adamantly Considers to discuss again Plan to discharge to rehab facility once arranged R wrist pain - hx of osteo, abscess and s/p surg. debridement in December w/ Dr. Stephens - seems to be well healed, no WBC elevation - wrist does not appear to be swollen or erythematous, as a matter of fact seems like both of his wrists are painful when patient moves fingers - R wrist XR shows significant arthritis - orthop. surg. consulted, don't believe any infectious process, also don't recommend steroid at this time d/t hx of significant infection and s/p surgery - currently pt has no complaints any more about wrist pain Chronic joint pain -Patient has history of arthritis -ESR however elevated as well as uric acid level -Patient reports that he was told in the past that he had gout -We will try colchicine Nausea, diarrhea Resolved as per patient Will consider further investigations if needed Chronic diastolic heart failure EF 60 to 65%, TTE 2020 Monitor volume status Continue home diuretics CAD Continue home medication COPD FRANCIS, CPAP intolerance Past tobacco use No signs of acute exacerbation Continue home inhalers DM II on oral medications Last HbA1c 6.18 April 2021 Continue insulin therapy while hospitalized Chronic anemia Hb at baseline DVT Px: Lovenox SQ CODE STATUS: Full code Disposition: Rehab when arranged Family: Mr. Hamlet Cheung, contact # [phone]. Ms. Bernice Mathias, contact #[phone]. Admission and Anticipated Discharge Date Admission Date: May 14, 2021 Subjective Patient is seen and examined at bedside Denies any chest pain, shortness of breath, dizziness, abdominal pain Reports chronic arthritis pain in joints, currently R foot/toe pain radiating up is bothering him the most Waiting for rehab placement Review of Systems Review of Systems: All systems reviewed & are unremarkable except as noted in Subjective Physical Exam Physical Exam: General Appearance: Morbidly obese M in NAD Head: normocephalic, Atraumatic Eyes: normal inspection, EOMI Neck: supple, Trachea midline Respiratory/Chest: Normal breath sounds, CTA Cardiovascular: S1, S2, No murmur Abdomen/GI:Soft, Non tender, Bowel sounds present Extremities/Musculoskeletal:normal inspection, 1+ pedal edema Neurologic/Psych:AAOX3, speech fluent, moves extremities Skin: normal color, warm Results & Data Results & Data ([facility] [place]) Vital Signs (Past 12 Hours) Vital Signs Temp Pulse Pulse Resp BP Pulse Ox 05/21/21 07:43 36.6 C 60 16 148/71 H 94 05/20/21 22:27 36.5 C 56 L 16 160/74 H 92 05/20/21 20:49 58 L 130/70 Medications Administered Current Inpatient Medications Acetaminophen (Acetaminophen 325 Mg Tab) 650 mg PO Q4H PRN PRN Reason: Pain or Fever Stop: 06/12/21 03:09 Last Admin: 05/16/21 03:23 Dose: 650 mg Documented by: Amlodipine Besylate (Amlodipine Besylate 5 Mg Tab) 10 mg PO DAILY [facility] Stop: 06/12/21 08:59 Last Admin: 05/20/21 08:55 Dose: 10 mg Documented by: Atorvastatin Calcium (Atorvastatin 40 Mg Tab) 40 mg PO HS [facility] Stop: 06/12/21 20:59 Last Admin: 05/20/21 20:46 Dose: 40 mg Documented by: Bumetanide (Bumetanide 1 Mg Tab) 1 mg PO DAILY [facility] Stop: 06/14/21 08:59 Last Admin: 05/20/21 08:54 Dose: 1 mg Documented by: Colchicine (Colchicine 0.6 Mg Tab) 0.6 mg PO QAM [facility] Stop: 06/19/21 18:14 Last Admin: 05/20/21 20:45 Dose: 0.6 mg Documented by: Dextrose (Dextrose 50% 50 Ml Syringe) 25 - 50 ml IV UD PRN; Protocol PRN Reason: Hypoglycemia Protocol Stop: 06/12/21 03:09 Diclofenac Sodium (Diclofenac Sod 1% Gel 100 Gm Tube) 4 gm EXT BID [facility] Stop: 06/17/21 20:59 Last Admin: 05/20/21 20:46 Dose: 4 gm Documented by: Diclofenac Sodium (Diclofenac Sod 1% Gel 100 Gm Tube) 4 gm EXT BID [facility] Stop: 06/19/21 20:59 Last Admin: 05/20/21 20:47 Dose: Not Given Documented by: Docusate Sodium (Docusate Sodium 100 Mg Cap) 100 mg PO BID PRN PRN Reason: Constipation Stop: 06/12/21 03:09 Duloxetine HCl (Duloxetine Hcl 60 Mg Cap) 60 mg PO DAILY [facility] Stop: 06/12/21 08:59 Last Admin: 05/20/21 08:54 Dose: 60 mg Documented by: Enoxaparin Sodium (Enoxaparin Inj 40 Mg/0.4 Ml Syr) 40 mg SQ QAM [facility] Stop: 06/12/21 08:59 Last Admin: 05/20/21 08:57 Dose: 40 mg Documented by: Ferrous Sulfate (Ferrous Sulfate 325 Mg Tab) 325 mg PO BIDM [facility] Stop: 06/12/21 07:59 Last Admin: 05/20/21 17:11 Dose: 325 mg Documented by: Gabapentin (Gabapentin 100 Mg Cap) 200 mg PO TID [facility] Stop: 06/13/21 20:59 Last Admin: 05/20/21 20:46 Dose: 200 mg Documented by: Glucagon (Glucagon For Inj 1 Mg Vial) 1 mg SQ UD PRN; Protocol PRN Reason: Hypoglycemia Protocol Stop: 06/12/21 03:09 Glucose (Glucose 10 Tabs/Tube) 4 - 8 tabs PO UD PRN; Protocol PRN Reason: Hypoglycemia Protocol Stop: 06/12/21 03:09 Glucose (Glucose 40% Gel 15 Gm Tube) 15 - 30 gm PO UD PRN; Protocol PRN Reason: Hypoglycemia Protocol Stop: 06/12/21 03:09 Hydralazine HCl (Hydralazine 10 Mg Tab) 10 mg PO BID PRN PRN Reason: Hypertension Stop: 06/15/21 20:59 Last Admin: 05/16/21 21:21 Dose: 10 mg Documented by: Promethazine HCl 12.5 mg/ (Sodium Chloride) 50.5 mls @ 202 mls/hr IV Q6H PRN PRN Reason: Nausea And Vomiting Stop: 06/12/21 03:28 Last Infusion: 05/13/21 04:10 Dose: Infused Documented by: Insulin Aspart (Insulin Aspart 100 Units/Ml 3 Ml Pen) 0 units SC [facility] Stop: 06/12/21 03:29 Last Admin: 05/20/21 20:47 Dose: Not Given Documented by: Insulin Glargine (Insulin Glargine Solostar 100 Units/Ml 3 Ml Pen) 5 units SC DAILY [facility] Stop: 06/12/21 08:59 Last Admin: 05/20/21 09:01 Dose: 5 units Documented by: Labetalol HCl (Labetalol Hcl 100 Mg Tab) 100 mg PO BID [facility] Stop: 06/16/21 08:59 Last Admin: 05/20/21 20:51 Dose: Not Given Documented by: Lidocaine (Lidocaine 5% 1 Patch) 1 patch TD QAM [facility] Stop: 06/17/21 09:29 Last Admin: 05/20/21 09:48 Dose: Not Given Documented by: Lisinopril (Lisinopril 40 Mg Tab) 40 mg PO DAILY [facility] Stop: 06/15/21 08:59 Last Admin: 05/20/21 08:54 Dose: 40 mg Documented by: Miscellaneous (Carbohydrates For Hypoglycemia ) 15 - 30 gm PO UD PRN PRN Reason: Hypoglycemia Protocol Stop: 06/12/21 03:09 Miscellaneous (Remove Lidoderm Patch) 1 ea N/A DAILY@2100 [facility] Stop: 06/17/21 20:59 Last Admin: 05/20/21 20:45 Dose: 1 ea Documented by: Montelukast Sodium (Montelukast Sodium 10 Mg Tablet) 10 mg PO HS [facility] Stop: 06/12/21 20:59 Last Admin: 05/20/21 20:41 Dose: 10 mg Documented by: Olanzapine (Olanzapine 10 Mg/2.1 Ml Sdv) 5 mg IM Q6H PRN PRN Reason: Anxiety/Agitation Stop: 06/12/21 02:11 Oxycodone HCl (Oxycodone Hcl Ir 5 Mg Tab (Immediate Release)) 5 mg PO Q6H PRN PRN Reason: Breakthrough Pain Stop: 05/27/21 03:09 Pantoprazole Sodium (Pantoprazole 40 Mg Tab) 40 mg PO DAILY [facility] Stop: 06/12/21 08:59 Last Admin: 05/20/21 08:54 Dose: 40 mg Documented by: Polyethylene Glycol (Polyethylene (Miralax) 17 Gm Pack) 17 gm PO DAILY PRN PRN Reason: Constipation Stop: 06/12/21 03:09 Potassium Chloride (Potassium Chloride Crtab 20 Meq Tabcr) 20 meq PO DAILY [facility] Stop: 06/14/21 08:59 Last Admin: 05/20/21 09:06 Dose: 20 meq Documented by: Sertraline HCl (Sertraline Hcl 100 Mg Tablet) 100 mg PO DAILY [facility] Stop: 06/12/21 08:59 Last Admin: 05/20/21 08:55 Dose: 100 mg Documented by: Tamsulosin HCl (Tamsulosin Hcl 0.4 Mg Cap) 0.8 mg PO DAILY [facility] Stop: 06/12/21 08:59 Last Admin: 05/20/21 08:56 Dose: 0.8 mg Documented by: Tramadol HCl (Tramadol Hcl 50 Mg Tablet) 25 - 50 mg PO Q4H PRN PRN Reason: Pain Stop: 06/13/21 06:53 Last Admin: 05/18/21 20:37 Dose: 50 mg Documented by: Umeclidinium/Vilanterol (Umeclidinium/Vilanterol 62.5/25mcg 7 Puffs/Inhaler) 1 puffs INH DAILY [facility] Stop: 06/12/21 08:59 Last Admin: 05/20/21 08:56 Dose: 1 puffs Documented by:
[2021-05-21] MEDS: amLODIPine BESYLATE 5 MG TAB PO SCH (08:48)
[2021-05-21] MEDS: LABETALOL HCL 100 MG TAB PO SCH ×2 (08:49→22:35)
[2021-05-21] MEDS: lisinopril 40 MG TAB PO SCH (08:49)
[2021-05-21] MEDS: SERTRALINE HCL 100 MG TABLET PO SCH (08:49)
[2021-05-21] MEDS: BUMETANIDE 1 MG TAB PO SCH (08:49)
[2021-05-21] MEDS: PANTOprazole 40 MG TAB PO SCH (08:49)
[2021-05-21] MEDS: GABAPENTIN 100 MG CAP PO SCH ×3 (08:50→22:35)
[2021-05-21] MEDS: ENOXAPARIN INJ 40 MG/0.4 ML SYR SQ SCH (08:50)
[2021-05-21] MEDS: DULoxetine HCL 60 MG CAP PO SCH (08:50)
[2021-05-21] MEDS: DICLOFENAC SOD 1% GEL 100 GM TUBE EXT SCH ×4 (08:51→22:35)
[2021-05-21] MEDS: FERROUS SULFATE 325 MG TAB PO SCH ×2 (08:52→16:41)
[2021-05-21] MEDS: COLCHICINE 0.6 MG TAB PO SCH (08:52)
[2021-05-21] MEDS: TAMSULOSIN HCL 0.4 MG CAP PO SCH (08:53)
[2021-05-21] MEDS: UMECLIDINIUM/VILANTEROL 62.5/25MCG 7 PUFFS/INHALER INH SCH (08:53)
[2021-05-21] MEDS: LIDOCAINE 5% 1 PATCH TD SCH (08:54)
[2021-05-21] MEDS: INSULIN ASPART 100 UNITS/ML 3 ML PEN SC SCH ×4 (09:01→22:07)
[2021-05-21] MEDS: INSULIN GLARGINE SOLOSTAR 100 UNITS/ML 3 ML PEN SC SCH (09:02)
[2021-05-21] MEDS: POTASSIUM CHLORIDE CRTAB 20 MEQ TABCR PO SCH (09:06)
[2021-05-21] MEDS ORDERED: KETOROLAC TROMETHAMINE 15 MG/ML VIAL IV ONE (12:32)
[2021-05-21] MEDS: ATORVASTATIN 40 MG TAB PO SCH (22:34)
[2021-05-21] MEDS: MONTELUKAST SODIUM 10 MG TABLET PO SCH (22:35)
[2021-05-22] MEDS: LABETALOL HCL 100 MG TAB PO SCH ×2 (07:52→20:57)
[2021-05-22] MEDS: FERROUS SULFATE 325 MG TAB PO SCH ×2 (07:52→17:25)
[2021-05-22] MEDS: lisinopril 40 MG TAB PO SCH (07:53)
[2021-05-22] MEDS: SERTRALINE HCL 100 MG TABLET PO SCH (07:53)
[2021-05-22] MEDS: amLODIPine BESYLATE 5 MG TAB PO SCH (07:53)
[2021-05-22] MEDS: TAMSULOSIN HCL 0.4 MG CAP PO SCH (07:54)
[2021-05-22] MEDS: BUMETANIDE 1 MG TAB PO SCH (07:54)
[2021-05-22] MEDS: DULoxetine HCL 60 MG CAP PO SCH (07:54)
[2021-05-22] MEDS: DICLOFENAC SOD 1% GEL 100 GM TUBE EXT SCH ×4 (08:34→20:57)
[2021-05-22] MEDS: ENOXAPARIN INJ 40 MG/0.4 ML SYR SQ SCH (08:35)
[2021-05-22] MEDS: PANTOprazole 40 MG TAB PO SCH (08:36)
[2021-05-22] MEDS: GABAPENTIN 100 MG CAP PO SCH ×3 (08:36→20:57)
[2021-05-22] MEDS: LIDOCAINE 5% 1 PATCH TD SCH (08:36)
[2021-05-22] MEDS: UMECLIDINIUM/VILANTEROL 62.5/25MCG 7 PUFFS/INHALER INH SCH (08:37)
[2021-05-22] MEDS: INSULIN GLARGINE SOLOSTAR 100 UNITS/ML 3 ML PEN SC SCH (08:38)
[2021-05-22] MEDS: INSULIN ASPART 100 UNITS/ML 3 ML PEN SC SCH ×4 (08:40→21:00)
[2021-05-22] MEDS: POTASSIUM CHLORIDE CRTAB 20 MEQ TABCR PO SCH (08:52)
[2021-05-22] MEDS: predniSONE 20 MG TAB PO SCH (11:29)
--- NOTE | 2021-05-22 13:33 | Hospitalist Progress Note ---
Date of Service May 22, 2021 Assessment & Plan (1) Asymptomatic hypertensive urgency: Plan: Hypertensive Urgency Presented with hypertensive urgency in the setting of noncompliance with antihypertensive medications. Head CT-no acute intracranial findings Home dose amlodipine 10 mg daily continued, lisinopril increased from 30 mg to 40 mg daily, Coreg switched to labetalol 100 mg twice daily BP remains variable however generally under control Unvaccinated for COVID 19 Patient received J & J vaccine on 05/16 Functional disability Refused Rehab placement last admission PT/OT Case management to help with discharge planning, placement pending R wrist pain hx of osteo, abscess and s/p surg. debridement in December w/ Dr. Stephens seems to be well healed, no WBC elevation, patient afebrile R wrist XR shows significant arthritis Ortho consulted - don't believe any infectious process, also don't recommend steroid at this time d/t hx of significant infection and s/p surgery Chronic joint pain History of arthritis ESR and uric acid elevated Was started on colchicine however will change to prednisone due to possible interaction with beta-iglesia May need outpatient rheumatology evaluation Chronic diastolic heart failure EF 60 to 65%, TTE 2020 Appears euvolemic Continue home diuretics CAD Appears stable, continue home medications COPD FRANCIS, CPAP intolerance Past tobacco use No signs of acute exacerbation Continue home inhalers DM II on oral medications Last HbA1c 6.18 April 2021 Continue insulin therapy while hospitalized Chronic anemia Hb at baseline Continue iron replacement DVT Px: Lovenox SQ CODE STATUS: Full code Disposition: Case management following, placement pending Family: Mr. Hamlet Cheung, contact # [phone]. Ms. Bernice Mathias, contact #[phone]. Admission and Anticipated Discharge Date Admission Date: May 14, 2021 Supervising Physician Co-Signing Physician Notes Pt seen and examined by me, care coordinated w/ Buddy DING, pls refer to her note above for further detail. Pt currently laying in bed, in NAD, watching TV. Reports no new issues, chronic joint pain, reports at home he was using marijuana for pain/ to be calm. Lung sounds clear to auscultation bilaterally without any wheezing rhonchi or crackles. Heart sounds regular. Abdomen soft obese nontender nondistended. Patient moves extremities without difficulty. No skin lesions noted. Cont. current management as above. Pt awaiting rehab. Vladimir Mejia MD Subjective Patient seen and examined. Follow-up for hypertensive urgency. Reports ongoing joint pain. Otherwise offers no complaints. Denies chest pain and shortness of breath. No lightheadedness or dizziness. Denies abdominal pain or nausea. Review of Systems Review of Systems: ROS per HPI, all other systems reviewed and negative Physical Exam Constitutional: WD/WN, vitals as above + obese; no acute distress Respiratory: normal respiratory effort, lungs clear to auscultation Cardiovascular: Rate/Rhythm: regular rate and regular rhythm Vessels: normal peripheral pulses Extremities: + edema (Trace edema BLE) Gastrointestinal (Abdomen): Percussion/Palpation: abdomen soft; abdomen nontender Skin: no rashes, warm and dry Neurologic: no focal motor deficits Psychiatric: Orientation: alert and oriented x 3 Affect: + irritable affect Results & Data Results & Data ([facility]) Vital Signs (Past 12 Hours) Vital Signs Temp Pulse Resp BP Pulse Ox 05/22/21 07:27 36.1 C L 72 20 181/83 H 92 Laboratory Results 05/22/21 05/22/21 05/22/21 Range/Units 17:12 11:41 08:01 POC Glucose 223 H 139 H 106 H (70-99) mg/dl 05/21/21 Range/Units 20:49 POC Glucose 135 H (70-99) mg/dl Medications Administered Current Inpatient Medications Acetaminophen (Acetaminophen 325 Mg Tab) 650 mg PO Q4H PRN PRN Reason: Pain or Fever Stop: 06/12/21 03:09 Last Admin: 05/16/21 03:23 Dose: 650 mg Documented by: Amlodipine Besylate (Amlodipine Besylate 5 Mg Tab) 10 mg PO DAILY [facility] Stop: 06/12/21 08:59 Last Admin: 05/22/21 07:53 Dose: 10 mg Documented by: Atorvastatin Calcium (Atorvastatin 40 Mg Tab) 40 mg PO HS [facility] Stop: 06/12/21 20:59 Last Admin: 05/21/21 22:34 Dose: Not Given Documented by: Bumetanide (Bumetanide 1 Mg Tab) 1 mg PO DAILY [facility] Stop: 06/14/21 08:59 Last Admin: 05/22/21 07:54 Dose: 1 mg Documented by: Dextrose (Dextrose 50% 50 Ml Syringe) 25 - 50 ml IV UD PRN; Protocol PRN Reason: Hypoglycemia Protocol Stop: 06/12/21 03:09 Diclofenac Sodium (Diclofenac Sod 1% Gel 100 Gm Tube) 4 gm EXT BID [facility] Stop: 06/17/21 20:59 Last Admin: 05/22/21 08:34 Dose: 4 gm Documented by: Diclofenac Sodium (Diclofenac Sod 1% Gel 100 Gm Tube) 4 gm EXT BID [facility] Stop: 06/19/21 20:59 Last Admin: 05/22/21 08:35 Dose: 4 gm Documented by: Docusate Sodium (Docusate Sodium 100 Mg Cap) 100 mg PO BID PRN PRN Reason: Constipation Stop: 06/12/21 03:09 Duloxetine HCl (Duloxetine Hcl 60 Mg Cap) 60 mg PO DAILY [facility] Stop: 06/12/21 08:59 Last Admin: 05/22/21 07:54 Dose: 60 mg Documented by: Enoxaparin Sodium (Enoxaparin Inj 40 Mg/0.4 Ml Syr) 40 mg SQ QAM [facility] Stop: 06/12/21 08:59 Last Admin: 05/22/21 08:35 Dose: 40 mg Documented by: Ferrous Sulfate (Ferrous Sulfate 325 Mg Tab) 325 mg PO BIDM [facility] Stop: 06/12/21 07:59 Last Admin: 05/22/21 17:25 Dose: 325 mg Documented by: Gabapentin (Gabapentin 100 Mg Cap) 200 mg PO TID [facility] Stop: 06/13/21 20:59 Last Admin: 05/22/21 14:58 Dose: 200 mg Documented by: Glucagon (Glucagon For Inj 1 Mg Vial) 1 mg SQ UD PRN; Protocol PRN Reason: Hypoglycemia Protocol Stop: 06/12/21 03:09 Glucose (Glucose 10 Tabs/Tube) 4 - 8 tabs PO UD PRN; Protocol PRN Reason: Hypoglycemia Protocol Stop: 06/12/21 03:09 Glucose (Glucose 40% Gel 15 Gm Tube) 15 - 30 gm PO UD PRN; Protocol PRN Reason: Hypoglycemia Protocol Stop: 06/12/21 03:09 Hydralazine HCl (Hydralazine 10 Mg Tab) 10 mg PO BID PRN PRN Reason: Hypertension Stop: 06/15/21 20:59 Last Admin: 05/16/21 21:21 Dose: 10 mg Documented by: Promethazine HCl 12.5 mg/ (Sodium Chloride) 50.5 mls @ 202 mls/hr IV Q6H PRN PRN Reason: Nausea And Vomiting Stop: 06/12/21 03:28 Last Infusion: 05/13/21 04:10 Dose: Infused Documented by: Insulin Aspart (Insulin Aspart 100 Units/Ml 3 Ml Pen) 0 units SC [facility] Stop: 06/12/21 03:29 Last Admin: 05/22/21 12:22 Dose: 2 units Documented by: Insulin Glargine (Insulin Glargine Solostar 100 Units/Ml 3 Ml Pen) 5 units SC DAILY [facility] Stop: 06/12/21 08:59 Last Admin: 05/22/21 08:38 Dose: 5 units Documented by: Labetalol HCl (Labetalol Hcl 100 Mg Tab) 100 mg PO BID [facility] Stop: 06/16/21 08:59 Last Admin: 05/22/21 07:52 Dose: 100 mg Documented by: Lidocaine (Lidocaine 5% 1 Patch) 1 patch TD QAM [facility] Stop: 06/17/21 09:29 Last Admin: 05/22/21 08:36 Dose: 1 patch Documented by: Lisinopril (Lisinopril 40 Mg Tab) 40 mg PO DAILY [facility] Stop: 06/15/21 08:59 Last Admin: 05/22/21 07:53 Dose: 40 mg Documented by: Miscellaneous (Carbohydrates For Hypoglycemia ) 15 - 30 gm PO UD PRN PRN Reason: Hypoglycemia Protocol Stop: 06/12/21 03:09 Miscellaneous (Remove Lidoderm Patch) 1 ea N/A DAILY@2100 [facility] Stop: 06/17/21 20:59 Last Admin: 05/21/21 22:35 Dose: Not Given Documented by: Montelukast Sodium (Montelukast Sodium 10 Mg Tablet) 10 mg PO HS [facility] Stop: 06/12/21 20:59 Last Admin: 05/21/21 22:35 Dose: Not Given Documented by: Olanzapine (Olanzapine 10 Mg/2.1 Ml Sdv) 5 mg IM Q6H PRN PRN Reason: Anxiety/Agitation Stop: 06/12/21 02:11 Oxycodone HCl (Oxycodone Hcl Ir 5 Mg Tab (Immediate Release)) 5 mg PO Q6H PRN PRN Reason: Breakthrough Pain Stop: 05/27/21 03:09 Last Admin: 05/21/21 11:15 Dose: 5 mg Documented by: Pantoprazole Sodium (Pantoprazole 40 Mg Tab) 40 mg PO DAILY [facility] Stop: 06/12/21 08:59 Last Admin: 05/22/21 08:36 Dose: 40 mg Documented by: Polyethylene Glycol (Polyethylene (Miralax) 17 Gm Pack) 17 gm PO DAILY PRN PRN Reason: Constipation Stop: 06/12/21 03:09 Potassium Chloride (Potassium Chloride Crtab 20 Meq Tabcr) 20 meq PO DAILY [facility] Stop: 06/14/21 08:59 Last Admin: 05/22/21 08:52 Dose: 20 meq Documented by: Prednisone (Prednisone 20 Mg Tab) 40 mg PO DAILY [facility] Stop: 05/27/21 11:14 Last Admin: 05/22/21 11:29 Dose: 40 mg Documented by: Sertraline HCl (Sertraline Hcl 100 Mg Tablet) 100 mg PO DAILY [facility] Stop: 06/12/21 08:59 Last Admin: 05/22/21 07:53 Dose: 100 mg Documented by: Tamsulosin HCl (Tamsulosin Hcl 0.4 Mg Cap) 0.8 mg PO DAILY [facility] Stop: 06/12/21 08:59 Last Admin: 05/22/21 07:54 Dose: 0.8 mg Documented by: Tramadol HCl (Tramadol Hcl 50 Mg Tablet) 25 - 50 mg PO Q4H PRN PRN Reason: Pain Stop: 06/13/21 06:53 Last Admin: 05/18/21 20:37 Dose: 50 mg Documented by: Umeclidinium/Vilanterol (Umeclidinium/Vilanterol 62.5/25mcg 7 Puffs/Inhaler) 1 puffs INH DAILY [facility] Stop: 06/12/21 08:59 Last Admin: 05/22/21 08:37 Dose: 1 puffs Documented by:
[2021-05-22] MEDS: ATORVASTATIN 40 MG TAB PO SCH (20:57)
[2021-05-22] MEDS: MONTELUKAST SODIUM 10 MG TABLET PO SCH (20:57)
[2021-05-23] MEDS: hydrALAZINE 10 MG TAB PO PRN (00:11)
[2021-05-23] MEDS: LABETALOL HCL 100 MG TAB PO SCH ×2 (08:35→20:46)
[2021-05-23] MEDS: POTASSIUM CHLORIDE CRTAB 20 MEQ TABCR PO SCH (08:35)
[2021-05-23] MEDS: amLODIPine BESYLATE 5 MG TAB PO SCH (08:35)
[2021-05-23] MEDS: DULoxetine HCL 60 MG CAP PO SCH (08:36)
[2021-05-23] MEDS: PANTOprazole 40 MG TAB PO SCH (08:36)
[2021-05-23] MEDS: TAMSULOSIN HCL 0.4 MG CAP PO SCH (08:36)
[2021-05-23] MEDS: FERROUS SULFATE 325 MG TAB PO SCH ×2 (08:36→17:50)
[2021-05-23] MEDS: GABAPENTIN 100 MG CAP PO SCH ×3 (08:36→20:47)
[2021-05-23] MEDS: BUMETANIDE 1 MG TAB PO SCH (08:37)
[2021-05-23] MEDS: lisinopril 40 MG TAB PO SCH (08:37)
[2021-05-23] MEDS: SERTRALINE HCL 100 MG TABLET PO SCH (08:37)
[2021-05-23] MEDS: predniSONE 20 MG TAB PO SCH (08:37)
[2021-05-23] MEDS: UMECLIDINIUM/VILANTEROL 62.5/25MCG 7 PUFFS/INHALER INH SCH (08:38)
[2021-05-23] MEDS: DICLOFENAC SOD 1% GEL 100 GM TUBE EXT SCH ×4 (08:38→20:47)
[2021-05-23] MEDS: LIDOCAINE 5% 1 PATCH TD SCH (08:38)
[2021-05-23] MEDS: ENOXAPARIN INJ 40 MG/0.4 ML SYR SQ SCH (08:39)
[2021-05-23] MEDS: INSULIN GLARGINE SOLOSTAR 100 UNITS/ML 3 ML PEN SC SCH (08:41)
[2021-05-23] MEDS: INSULIN ASPART 100 UNITS/ML 3 ML PEN SC SCH ×4 (08:43→20:53)
--- NOTE | 2021-05-23 16:09 | Hospitalist Progress Note ---
Date of Service May 23, 2021 Assessment & Plan (1) Asymptomatic hypertensive urgency: Plan: Hypertensive Urgency Presented with hypertensive urgency in the setting of noncompliance with antihypertensive medications. Head CT-no acute intracranial findings Home dose amlodipine 10 mg daily continued, lisinopril increased from 30 mg to 40 mg daily, Coreg switched to labetalol 100 mg twice daily BP remains variable however generally under control Unvaccinated for COVID 19 Patient received J & J vaccine on 05/16 Functional disability Refused Rehab placement last admission PT/OT Case management to help with discharge planning, placement pending R wrist pain hx of osteo, abscess and s/p surg. debridement in December w/ Dr. Stephens seems to be well healed, no WBC elevation, patient afebrile R wrist XR shows significant arthritis Ortho consulted - don't believe any infectious process, also don't recommend steroid at this time d/t hx of significant infection and s/p surgery Chronic joint pain History of arthritis ESR and uric acid elevated Was started on colchicine however will change to prednisone due to possible interaction with beta-iglesia On prednisone 40 mg daily, day 2. Was on a very short prednisone taper during previous admission. May need prolonged taper this time. May need outpatient rheumatology evaluation Chronic diastolic heart failure EF 60 to 65%, TTE 2020 Appears euvolemic Continue home diuretics CAD Appears stable, continue home medications COPD FRANCIS, CPAP intolerance Past tobacco use No signs of acute exacerbation Continue home inhalers DM II on oral medications Last HbA1c 6.18 April 2021 Continue insulin therapy while hospitalized Chronic anemia Hb at baseline Continue iron replacement DVT Px: Lovenox SQ CODE STATUS: Full code Disposition: Case management following, placement pending Family: Mr. Hamlet Cheung, contact # [phone]. Ms. Bernice Mathias, contact #[phone]. Admission and Anticipated Discharge Date Admission Date: May 14, 2021 Supervising Physician Co-Signing Physician Notes Pt seen and examined by me, care coordinated w/ LAngelica DING, pls refer to her note above for further detail. Pt currently laying in bed, in NAD, watching TV. Reports no new issues, chronic joint pain (seems more comfortable today), reports at home he was using marijuana for pain/ to be calm. Says he has currently no complaints , only feeling hungry and asking for extra food. Lung sounds clear to auscultation bilaterally without any wheezing rhonchi or crackles. Heart sounds regular. Abdomen soft obese nontender nondistended. Patient moves extremities without difficulty. No skin lesions noted. Cont. current management as above. Pt awaiting rehab. Vladimir Mejia MD Subjective Patient seen and examined. Follow-up for hypertensive urgency. Resting in bed. Reports pain mildly improved from yesterday. Offers no other complaints. Review of Systems Review of Systems: ROS per HPI, all other systems reviewed and negative Physical Exam Constitutional: + obese; no acute distress Respiratory: normal respiratory effort, lungs clear to auscultation Cardiovascular: Rate/Rhythm: regular rate and regular rhythm Extremities: no edema Skin: no rashes, warm and dry Neurologic: no focal motor deficits Psychiatric: Orientation: alert and oriented x 3 Affect: + irritable affect Results & Data Results & Data ([facility]) Vital Signs (Past 12 Hours) Vital Signs Temp Pulse Resp BP Pulse Ox 05/23/21 15:31 36.5 C 61 16 148/73 H 95 05/23/21 08:22 36.4 C L 56 L 16 178/77 H 94
[2021-05-23] MEDS: MONTELUKAST SODIUM 10 MG TABLET PO SCH (20:47)
[2021-05-23] MEDS: ATORVASTATIN 40 MG TAB PO SCH (20:47)
[2021-05-24] MEDS: UMECLIDINIUM/VILANTEROL 62.5/25MCG 7 PUFFS/INHALER INH SCH (08:48)
[2021-05-24] MEDS: GABAPENTIN 100 MG CAP PO SCH ×3 (08:48→21:42)
[2021-05-24] MEDS: POTASSIUM CHLORIDE CRTAB 20 MEQ TABCR PO SCH (08:48)
[2021-05-24] MEDS: amLODIPine BESYLATE 5 MG TAB PO SCH (08:49)
[2021-05-24] MEDS: LABETALOL HCL 100 MG TAB PO SCH ×3 (08:49→21:52)
[2021-05-24] MEDS: TAMSULOSIN HCL 0.4 MG CAP PO SCH (08:49)
[2021-05-24] MEDS: SERTRALINE HCL 100 MG TABLET PO SCH (08:49)
[2021-05-24] MEDS: DULoxetine HCL 60 MG CAP PO SCH (08:50)
[2021-05-24] MEDS: BUMETANIDE 1 MG TAB PO SCH (08:50)
[2021-05-24] MEDS: PANTOprazole 40 MG TAB PO SCH (08:50)
[2021-05-24] MEDS: predniSONE 20 MG TAB PO SCH (08:50)
[2021-05-24] MEDS: lisinopril 40 MG TAB PO SCH (08:51)
[2021-05-24] MEDS: ENOXAPARIN INJ 40 MG/0.4 ML SYR SQ SCH (08:51)
[2021-05-24] MEDS: LIDOCAINE 5% 1 PATCH TD SCH (08:51)
[2021-05-24] MEDS: FERROUS SULFATE 325 MG TAB PO SCH ×2 (08:51→17:19)
[2021-05-24] MEDS: DICLOFENAC SOD 1% GEL 100 GM TUBE EXT SCH ×4 (08:52→21:40)
[2021-05-24] MEDS: INSULIN GLARGINE SOLOSTAR 100 UNITS/ML 3 ML PEN SC SCH (08:53)
[2021-05-24] MEDS: INSULIN ASPART 100 UNITS/ML 3 ML PEN SC SCH ×4 (08:54→21:42)
--- NOTE | 2021-05-24 16:17 | Hospitalist Progress Note ---
Date of Service May 24, 2021 Assessment & Plan (1) Asymptomatic hypertensive urgency: Plan: Hypertensive Urgency Presented with hypertensive urgency in the setting of noncompliance with antihypertensive medications. Head CT-no acute intracranial findings Home dose amlodipine 10 mg daily continued, lisinopril increased from 30 mg to 40 mg daily, Coreg switched to labetalol 100 mg twice daily BP remains variable however generally under control Unvaccinated for COVID 19 Patient received J & J vaccine on 05/16 Functional disability Refused Rehab placement last admission PT/OT Case management to help with discharge planning, placement pending R wrist pain hx of osteo, abscess and s/p surg. debridement in December w/ Dr. Stephens seems to be well healed, no WBC elevation, patient afebrile R wrist XR shows significant arthritis Ortho consulted - don't believe any infectious process, also don't recommend steroid at this time d/t hx of significant infection and s/p surgery Chronic joint pain History of arthritis ESR and uric acid elevated Was started on colchicine however was changed to prednisone due to possible interaction with beta-iglesia On prednisone 40 mg daily, day 3. Was on a very short prednisone taper during previous admission. May need prolonged taper this time. Will decrease to prednisone 20 mg daily starting tomorrow. May need outpatient rheumatology evaluation Chronic diastolic heart failure EF 60 to 65%, TTE 2020 Appears euvolemic Continue home diuretics CAD Appears stable, continue home medications COPD FRANCIS, CPAP intolerance Past tobacco use No signs of acute exacerbation Continue home inhalers DM II on oral medications Last HbA1c 6.18 April 2021 Continue insulin therapy while hospitalized Chronic anemia Hb at baseline Continue iron replacement DVT Px: Lovenox SQ CODE STATUS: Full code Disposition: Case management following, placement pending Family: Mr. Hamlet Cheung, contact # [phone]. Ms. Bernice Mathias, contact #[phone]. Admission and Anticipated Discharge Date Admission Date: May 14, 2021 Supervising Physician Co-Signing Physician Notes Patient is seen and examined at bedside. Patient states having generalized joint pain. Denies any chest pain, shortness of breath, dizziness. On exam patient is obese, no apparent distress, normocephalic atraumatic, lungs are clear to auscultation, normal breath sounds, S1-S2, no murmur, abdomen soft, nontender, normal bowel sounds, alert, awake, oriented, grossly no focal deficits. Hypertensive urgency, noncompliance, osteoarthritis, possible gout. Agree with allopurinol, prednisone taper. Needs follow-up with rheumatology as outpatient. Needs rehab placement. I personally reviewed the record. Patient is interviewed and examined at bedside. Patient's care is coordinated with Pily Bishop NP. Please refer to the documentation above for details of patient's presentation and for discussion of other issues. Subjective Patient seen and examined. Follow-up for hypertensive urgency. Resting in bed, sleeping. No acute distress. Patient somewhat irritable. Reports generalized joint pain continues, not much change from yesterday. Denies chest pain shortness of breath. No abdominal pain or nausea. Review of Systems Review of Systems: ROS per HPI, all other systems reviewed and negative Physical Exam Constitutional: WD/WN, vitals as above + obese; no acute distress Respiratory: normal respiratory effort, lungs clear to auscultation Cardiovascular: Rate/Rhythm: regular rate and regular rhythm Gastrointestinal (Abdomen): Percussion/Palpation: abdomen soft; abdomen nontender Skin: no rashes, warm and dry Psychiatric: Orientation: alert and oriented x 3 Affect: + irritable affect Results & Data Results & Data ([facility]) Vital Signs (Past 12 Hours) Vital Signs Temp Pulse Resp BP Pulse Ox 05/24/21 08:11 36.5 C 57 L 16 137/68 95
[2021-05-24] MEDS: allopurinoL 100 MG TAB PO SCH (17:19)
[2021-05-24] MEDS ORDERED: INSULIN GLARGINE SOLOSTAR 100 UNITS/ML 3 ML PEN SC STA (21:09)
[2021-05-24] MEDS: ATORVASTATIN 40 MG TAB PO SCH (21:39)
[2021-05-24] MEDS: MONTELUKAST SODIUM 10 MG TABLET PO SCH (21:40)
[2021-05-25] MEDS: INSULIN ASPART 100 UNITS/ML 3 ML PEN SC SCH ×4 (08:39→21:32)
[2021-05-25] MEDS: INSULIN GLARGINE SOLOSTAR 100 UNITS/ML 3 ML PEN SC SCH (08:41)
[2021-05-25] MEDS: POTASSIUM CHLORIDE CRTAB 20 MEQ TABCR PO SCH (08:50)
[2021-05-25] MEDS: lisinopril 40 MG TAB PO SCH (08:51)
[2021-05-25] MEDS: TAMSULOSIN HCL 0.4 MG CAP PO SCH (08:51)
[2021-05-25] MEDS: PANTOprazole 40 MG TAB PO SCH (08:51)
[2021-05-25] MEDS: GABAPENTIN 100 MG CAP PO SCH ×3 (08:52→21:28)
[2021-05-25] MEDS: DULoxetine HCL 60 MG CAP PO SCH (08:53)
[2021-05-25] MEDS: amLODIPine BESYLATE 5 MG TAB PO SCH (08:53)
[2021-05-25] MEDS: BUMETANIDE 1 MG TAB PO SCH (08:53)
[2021-05-25] MEDS: allopurinoL 100 MG TAB PO SCH (08:54)
[2021-05-25] MEDS: FERROUS SULFATE 325 MG TAB PO SCH ×2 (08:55→17:33)
[2021-05-25] MEDS: ENOXAPARIN INJ 40 MG/0.4 ML SYR SQ SCH (08:57)
[2021-05-25] MEDS: SERTRALINE HCL 100 MG TABLET PO SCH (08:57)
[2021-05-25] MEDS: LABETALOL HCL 100 MG TAB PO SCH ×2 (08:58→21:26)
[2021-05-25] MEDS: DICLOFENAC SOD 1% GEL 100 GM TUBE EXT SCH ×4 (08:59→21:32)
[2021-05-25] MEDS ORDERED: predniSONE 20 MG TAB PO SCH (09:00)
[2021-05-25] MEDS: UMECLIDINIUM/VILANTEROL 62.5/25MCG 7 PUFFS/INHALER INH SCH (09:00)
[2021-05-25] MEDS ORDERED: predniSONE 5 MG TAB PO SCH (09:00)
[2021-05-25] MEDS: LIDOCAINE 5% 1 PATCH TD SCH (09:01)
--- NOTE | 2021-05-25 10:19 | Hospitalist Progress Note ---
Date of Service May 25, 2021 Assessment & Plan (1) Asymptomatic hypertensive urgency: Plan: Hypertensive Urgency Presented with hypertensive urgency in the setting of noncompliance with antihypertensive medications. Head CT-no acute intracranial findings Home dose amlodipine 10 mg daily continued, lisinopril increased from 30 mg to 40 mg daily, Coreg switched to labetalol 100 mg twice daily Bp is labile, 179/80 prior to meds this a.m. Unvaccinated for COVID 19 Patient received J & J vaccine on 05/16 Functional disability Refused Rehab placement last admission PT/OT Case management to help with discharge planning, placement pending R wrist pain hx of osteo, abscess and s/p surg. debridement in December w/ Dr. Stephens seems to be well healed, no WBC elevation, patient afebrile R wrist XR shows significant arthritis Ortho consulted - don't believe any infectious process, also don't recommend steroid at this time d/t hx of significant infection and s/p surgery Chronic joint pain History of arthritis ESR and uric acid elevated Was started on colchicine however was changed to prednisone due to possible interaction with beta-iglesia On prednisone 40 mg daily, day 3. Was on a very short prednisone taper during previous admission. May need prolonged taper this time. Will decrease to prednisone 20 mg daily starting tomorrow. Case discussed with OP Rheum who recommends tapering prednisone down to 5mg. Will need OP rheum eval. Taper pred 10mg daily x 2 days; 5mg daily x 2 days and then stop. F/U with Rheum. Chronic diastolic heart failure EF 60 to 65%, TTE 2020 Appears euvolemic Continue home diuretics CAD Appears stable, continue home medications COPD FRANCIS, CPAP intolerance Past tobacco use No signs of acute exacerbation Continue home inhalers DM II on oral medications Last HbA1c 6.18 April 2021 Continue insulin therapy while hospitalized BSG labile, 102 this morning but 300s last evening, monitor Chronic anemia Hb at baseline Continue iron replacement DVT Px: Lovenox SQ CODE STATUS: Full code Disposition: Case management following, placement pending, medically stable Family: Mr. Hamlet Cheung, contact # [phone]. Ms. Bernice Mathias, contact #[phone]. Admission and Anticipated Discharge Date Admission Date: May 14, 2021 Supervising Physician Co-Signing Physician Notes Patient is seen and examined at bedside. No new complaints. Continues to complain of Jt pain. Denies any chest pain, shortness of breath, dizziness. On exam patient is obese, no apparent distress, normocephalic atraumatic, lungs are clear to auscultation, normal breath sounds, S1-S2, no murmur, abdomen soft, nontender, normal bowel sounds, alert, awake, oriented, grossly no focal deficits. Hypertensive urgency, noncompliance, osteoarthritis, possible gout, Osteoarthritis. Taper down Steroids. Started on Allopurinol. Patient doesnt seem to be interested in following with Rheumatology. Waiting for placement. I personally reviewed the record. Patient is interviewed and examined at bedside. Patient's care is coordinated with Sarah Beth Villafana PA-C. Please refer to the documentation above for details of patient's presentation and for discussion of other issues. Subjective Patient seen and examined in room 307. Follow-up hypertensive urgency. He is currently sitting in bed. Offers no complaints. Continues to have joint pain diffusely. Denies f/c/s, chest pain, sob, n/v/d. He has been ambulating to and from the bathroom. +BM yesterday. Review of Systems Review of Systems: All systems reviewed & are unremarkable except as noted in HPI & below Physical Exam Physical Exam: Gen: WD/WN, obese male, NAD, A&O x3 HEENT: Normocephalic, atraumatic, conjunctivae moist, sclerae anicteric, mucous membranes moist. Lung: Clear to Auscultation bilaterally, no wheezes/rales/rhonchi Heart: Regular rate, regular rhythm, no murmurs, rubs, or gallops Abdomen: Soft, NT, ND +BS x 4 Extremities: No edema Skin: Warm, no rash, negative turgor. Results & Data Results & Data ([facility]) Vital Signs (Past 12 Hours) Vital Signs Temp Pulse Pulse Resp BP Pulse Ox 05/25/21 08:35 55 L 179/80 H 05/25/21 07:28 36.2 C L 58 L 16 176/69 H 93 Medications Administered Current Inpatient Medications Acetaminophen (Acetaminophen 325 Mg Tab) 650 mg PO Q4H PRN PRN Reason: Pain or Fever Stop: 06/12/21 03:09 Last Admin: 05/16/21 03:23 Dose: 650 mg Documented by: Allopurinol (Allopurinol 100 Mg Tab) 100 mg PO DAILY [facility]; Taper Stop: 07/07/21 08:59 Last Admin: 05/25/21 08:54 Dose: 100 mg Documented by: Amlodipine Besylate (Amlodipine Besylate 5 Mg Tab) 10 mg PO DAILY [facility] Stop: 06/12/21 08:59 Last Admin: 05/25/21 08:53 Dose: 10 mg Documented by: Atorvastatin Calcium (Atorvastatin 40 Mg Tab) 40 mg PO HS [facility] Stop: 06/12/21 20:59 Last Admin: 05/24/21 21:39 Dose: 40 mg Documented by: Bumetanide (Bumetanide 1 Mg Tab) 1 mg PO DAILY [facility] Stop: 06/14/21 08:59 Last Admin: 05/25/21 08:53 Dose: 1 mg Documented by: Dextrose (Dextrose 50% 50 Ml Syringe) 25 - 50 ml IV UD PRN; Protocol PRN Reason: Hypoglycemia Protocol Stop: 06/12/21 03:09 Diclofenac Sodium (Diclofenac Sod 1% Gel 100 Gm Tube) 4 gm EXT BID [facility] Stop: 06/17/21 20:59 Last Admin: 05/25/21 08:59 Dose: 4 gm Documented by: Diclofenac Sodium (Diclofenac Sod 1% Gel 100 Gm Tube) 4 gm EXT BID [facility] Stop: 06/19/21 20:59 Last Admin: 05/25/21 08:59 Dose: 4 gm Documented by: Docusate Sodium (Docusate Sodium 100 Mg Cap) 100 mg PO BID PRN PRN Reason: Constipation Stop: 06/12/21 03:09 Duloxetine HCl (Duloxetine Hcl 60 Mg Cap) 60 mg PO DAILY [facility] Stop: 06/12/21 08:59 Last Admin: 05/25/21 08:53 Dose: 60 mg Documented by: Enoxaparin Sodium (Enoxaparin Inj 40 Mg/0.4 Ml Syr) 40 mg SQ QAM [facility] Stop: 06/12/21 08:59 Last Admin: 05/25/21 08:57 Dose: 40 mg Documented by: Ferrous Sulfate (Ferrous Sulfate 325 Mg Tab) 325 mg PO BIDM [facility] Stop: 06/12/21 07:59 Last Admin: 05/25/21 08:55 Dose: 325 mg Documented by: Gabapentin (Gabapentin 100 Mg Cap) 200 mg PO TID [facility] Stop: 06/13/21 20:59 Last Admin: 05/25/21 08:52 Dose: 200 mg Documented by: Glucagon (Glucagon For Inj 1 Mg Vial) 1 mg SQ UD PRN; Protocol PRN Reason: Hypoglycemia Protocol Stop: 06/12/21 03:09 Glucose (Glucose 10 Tabs/Tube) 4 - 8 tabs PO UD PRN; Protocol PRN Reason: Hypoglycemia Protocol Stop: 06/12/21 03:09 Glucose (Glucose 40% Gel 15 Gm Tube) 15 - 30 gm PO UD PRN; Protocol PRN Reason: Hypoglycemia Protocol Stop: 06/12/21 03:09 Hydralazine HCl (Hydralazine 10 Mg Tab) 10 mg PO BID PRN PRN Reason: Hypertension Stop: 06/15/21 20:59 Last Admin: 05/23/21 00:11 Dose: 10 mg Documented by: Promethazine HCl 12.5 mg/ (Sodium Chloride) 50.5 mls @ 202 mls/hr IV Q6H PRN PRN Reason: Nausea And Vomiting Stop: 06/12/21 03:28 Last Infusion: 05/13/21 04:10 Dose: Infused Documented by: Insulin Aspart (Insulin Aspart 100 Units/Ml 3 Ml Pen) 0 units SC ACHS [facility] Stop: 06/12/21 03:29 Last Admin: 05/25/21 08:39 Dose: 3 units Documented by: Insulin Glargine (Insulin Glargine Solostar 100 Units/Ml 3 Ml Pen) 15 units SC DAILY [facility] Stop: 06/24/21 08:59 Last Admin: 05/25/21 08:41 Dose: 15 units Documented by: Labetalol HCl (Labetalol Hcl 100 Mg Tab) 100 mg PO BID [facility] Stop: 06/16/21 08:59 Last Admin: 05/25/21 08:58 Dose: Not Given Documented by: Lidocaine (Lidocaine 5% 1 Patch) 1 patch TD QAM [facility] Stop: 06/17/21 09:29 Last Admin: 05/25/21 09:01 Dose: 1 patch Documented by: Lisinopril (Lisinopril 40 Mg Tab) 40 mg PO DAILY [facility] Stop: 06/15/21 08:59 Last Admin: 05/25/21 08:51 Dose: 40 mg Documented by: Miscellaneous (Carbohydrates For Hypoglycemia ) 15 - 30 gm PO UD PRN PRN Reason: Hypoglycemia Protocol Stop: 06/12/21 03:09 Miscellaneous (Remove Lidoderm Patch) 1 ea N/A DAILY@2100 [facility] Stop: 06/17/21 20:59 Last Admin: 05/24/21 21:41 Dose: 1 ea Documented by: Montelukast Sodium (Montelukast Sodium 10 Mg Tablet) 10 mg PO HS [facility] Stop: 06/12/21 20:59 Last Admin: 05/24/21 21:40 Dose: 10 mg Documented by: Olanzapine (Olanzapine 10 Mg/2.1 Ml Sdv) 5 mg IM Q6H PRN PRN Reason: Anxiety/Agitation Stop: 06/12/21 02:11 Oxycodone HCl (Oxycodone Hcl Ir 5 Mg Tab (Immediate Release)) 5 mg PO Q6H PRN PRN Reason: Breakthrough Pain Stop: 05/27/21 03:09 Last Admin: 05/21/21 11:15 Dose: 5 mg Documented by: Pantoprazole Sodium (Pantoprazole 40 Mg Tab) 40 mg PO DAILY [facility] Stop: 06/12/21 08:59 Last Admin: 05/25/21 08:51 Dose: 40 mg Documented by: Polyethylene Glycol (Polyethylene (Miralax) 17 Gm Pack) 17 gm PO DAILY PRN PRN Reason: Constipation Stop: 06/12/21 03:09 Potassium Chloride (Potassium Chloride Crtab 20 Meq Tabcr) 20 meq PO DAILY [facility] Stop: 06/14/21 08:59 Last Admin: 05/25/21 08:50 Dose: 20 meq Documented by: Prednisone (Prednisone 5 Mg Tab) 20 mg PO DAILY [facility]; Taper Stop: 06/30/21 08:59 Last Admin: 05/25/21 08:56 Dose: 20 mg Documented by: Sertraline HCl (Sertraline Hcl 100 Mg Tablet) 100 mg PO DAILY [facility] Stop: 06/12/21 08:59 Last Admin: 05/25/21 08:57 Dose: 100 mg Documented by: Tamsulosin HCl (Tamsulosin Hcl 0.4 Mg Cap) 0.8 mg PO DAILY [facility] Stop: 06/12/21 08:59 Last Admin: 05/25/21 08:51 Dose: 0.8 mg Documented by: Tramadol HCl (Tramadol Hcl 50 Mg Tablet) 25 - 50 mg PO Q4H PRN PRN Reason: Pain Stop: 06/13/21 06:53 Last Admin: 05/18/21 20:37 Dose: 50 mg Documented by: Umeclidinium/Vilanterol (Umeclidinium/Vilanterol 62.5/25mcg 7 Puffs/Inhaler) 1 puffs INH DAILY [facility] Stop: 06/12/21 08:59 Last Admin: 05/25/21 09:00 Dose: 1 puffs Documented by:
[2021-05-25] MEDS: MONTELUKAST SODIUM 10 MG TABLET PO SCH (21:28)
[2021-05-25] MEDS: ATORVASTATIN 40 MG TAB PO SCH (21:28)
[2021-05-26] MEDS: FERROUS SULFATE 325 MG TAB PO SCH ×2 (07:49→17:47)
[2021-05-26] MEDS: allopurinoL 100 MG TAB PO SCH (07:50)
[2021-05-26] MEDS: GABAPENTIN 100 MG CAP PO SCH ×3 (07:50→20:40)
[2021-05-26] MEDS: TAMSULOSIN HCL 0.4 MG CAP PO SCH (07:51)
[2021-05-26] MEDS: predniSONE 5 MG TAB PO SCH (07:51)
[2021-05-26] MEDS: SERTRALINE HCL 100 MG TABLET PO SCH (07:52)
[2021-05-26] MEDS: amLODIPine BESYLATE 5 MG TAB PO SCH (07:52)
[2021-05-26] MEDS: BUMETANIDE 1 MG TAB PO SCH (07:53)
[2021-05-26] MEDS: PANTOprazole 40 MG TAB PO SCH (07:53)
[2021-05-26] MEDS: DULoxetine HCL 60 MG CAP PO SCH (07:53)
[2021-05-26] MEDS: lisinopril 40 MG TAB PO SCH (07:54)
[2021-05-26] MEDS: DICLOFENAC SOD 1% GEL 100 GM TUBE EXT SCH ×4 (07:56→20:43)
[2021-05-26] MEDS: INSULIN GLARGINE SOLOSTAR 100 UNITS/ML 3 ML PEN SC SCH (08:48)
[2021-05-26] MEDS: INSULIN ASPART 100 UNITS/ML 3 ML PEN SC SCH ×4 (08:48→20:35)
[2021-05-26] MEDS: LIDOCAINE 5% 1 PATCH TD SCH (08:49)
[2021-05-26] MEDS: POTASSIUM CHLORIDE CRTAB 20 MEQ TABCR PO SCH (08:49)
[2021-05-26] MEDS: ENOXAPARIN INJ 40 MG/0.4 ML SYR SQ SCH (08:49)
[2021-05-26] MEDS: UMECLIDINIUM/VILANTEROL 62.5/25MCG 7 PUFFS/INHALER INH SCH (08:50)
--- NOTE | 2021-05-26 09:49 | Hospitalist Progress Note ---
Date of Service May 26, 2021 Assessment & Plan (1) Asymptomatic hypertensive urgency: Plan: Hypertensive Urgency Presented with hypertensive urgency in the setting of noncompliance with antihypertensive medications. Head CT-no acute intracranial findings Home dose amlodipine 10 mg daily continued, lisinopril increased from 30 mg to 40 mg daily, Coreg switched to labetalol 100 mg twice daily, bumex Bp still labile and uncontrolled - will monitor for now Unvaccinated for COVID 19 Patient received J & J vaccine on 05/16 Functional disability Refused Rehab placement last admission PT/OT Case management to help with discharge planning, placement pending R wrist pain hx of osteo, abscess and s/p surg. debridement in December w/ Dr. Stephens seems to be well healed, no WBC elevation, patient afebrile R wrist XR shows significant arthritis Ortho consulted - don't believe any infectious process, also don't recommend steroid at this time d/t hx of significant infection and s/p surgery Chronic joint pain History of arthritis ESR and uric acid elevated Was started on colchicine however was changed to prednisone due to possible int eraction with beta-iglesia On prednisone 40 mg daily, day 3. Was on a very short prednisone taper during previous admission. May need prolonged taper this time. Will decrease to prednisone 20 mg daily starting tomorrow. Case discussed with OP Rheum who recommends tapering prednisone down to 5mg. Will need OP rheum eval. Taper pred 10mg daily x 2 days; 5mg daily x 2 days and then stop. F/U with Rheum. Started on allopurinol 100mg daily x 1 week, 200mg daily x 1 wk and 300mg daily per rheum Chronic diastolic heart failure EF 60 to 65%, TTE 2020 Appears euvolemic Continue home diuretics CAD Appears stable, continue home medications COPD FRANCIS, CPAP intolerance Past tobacco use No signs of acute exacerbation Continue home inhalers DM II on oral medications Last HbA1c 6.18 April 2021 Continue insulin therapy while hospitalized BSG stable Chronic anemia Hb at baseline Continue iron replacement DVT Px: Lovenox SQ CODE STATUS: Full code Disposition: Case management following, placement pending, medically stable Family: Mr. Hamlet Cheung, contact # [phone]. Ms. Bernice Mathias, contact #[phone]. Admission and Anticipated Discharge Date Admission Date: May 14, 2021 Supervising Physician Co-Signing Physician Notes Patient is seen and examined at bedside. Blood pressure labile. Likely steroids contributing. Asymptomatic from elevated BP. Jt pain is controlled. Denies any chest pain, shortness of breath, dizziness. On exam patient is obes e, no apparent distress, normocephalic atraumatic, lungs are clear to auscultation, normal breath sounds, S1-S2, no murmur, abdomen soft, nontender, normal bowel sounds, alert, awake, oriented, grossly no focal deficits. Hypertensive urgency, noncompliance, osteoarthritis, possible gout, Osteoarthritis. Continue current medications for blood pressure. Will monitor BP while tapering down Steroids. Continue Allopurinol. Waiting for Rehab placement. I personally reviewed the record. Patient is interviewed and examined at bedside. Patient's care is coordinated with Sarah Beth Villafana PA-C. Please refer to the documentation above for details of patient's presentation and for discussion of other issues. Subjective Patient seen and examined in room 307. Follow-up hypertensive urgency. Complains of wrist and ankle pain, but is at baseline and not worse. Denies headache, vision change, chest pain, shortness of breath, nausea, vomiting, abdominal pain. He is ambulating to and from the bathroom. Positive BM yesterday. Review of Systems Review of Systems: All systems reviewed & are unremarkable except as noted in HPI & below Physical Exam Physical Exam: Gen: WD/WN, obese male, NAD, A&O x3 HEENT: Normocephalic, atraumatic, conjunctivae moist, sclerae anicteric, mucous membranes moist. Lung: Clear to Auscultation bilaterally, no wheezes/rales/rhonchi Heart: Regular rate, regular rhythm, no murmurs, rubs, or gallops Abdomen: Soft, NT, ND +BS x 4 Extremities: No edema Skin: Warm, no rash, negative turgor. Results & Data Results & Data ([facility]) Vital Signs (Past 12 Hours) Vital Signs Temp Pulse Resp BP BP Pulse Ox 05/26/21 07:24 36.3 C L 50 L 16 152/69 H 91 05/25/21 22:27 36.8 C 63 20 170/71 H 92 Medications Administered Current Inpatient Medications Acetaminophen (Acetaminophen 325 Mg Tab) 650 mg PO Q4H PRN PRN Reason: Pain or Fever Stop: 06/12/21 03:09 Last Admin: 05/16/21 03:23 Dose: 650 mg Documented by: Allopurinol (Allopurinol 100 Mg Tab) 100 mg PO DAILY [facility]; Taper Stop: 07/07/21 08:59 Last Admin: 05/26/21 07:50 Dose: 100 mg Documented by: Amlodipine Besylate (Amlodipine Besylate 5 Mg Tab) 10 mg PO DAILY [facility] Stop: 06/12/21 08:59 Last Admin: 05/26/21 07:52 Dose: 10 mg Documented by: Atorvastatin Calcium (Atorvastatin 40 Mg Tab) 40 mg PO HS [facility] Stop: 06/12/21 20:59 Last Admin: 05/25/21 21:28 Dose: 40 mg Documented by: Bumetanide (Bumetanide 1 Mg Tab) 1 mg PO DAILY [facility] Stop: 06/14/21 08:59 Last Admin: 05/26/21 07:53 Dose: 1 mg Documented by: Dextrose (Dextrose 50% 50 Ml Syringe) 25 - 50 ml IV UD PRN; Protocol PRN Reason: Hypoglycemia Protocol Stop: 06/12/21 03:09 Diclofenac Sodium (Diclofenac Sod 1% Gel 100 Gm Tube) 4 gm EXT BID [facility] Stop: 06/17/21 20:59 Last Admin: 05/26/21 07:56 Dose: 4 gm Documented by: Diclofenac Sodium (Diclofenac Sod 1% Gel 100 Gm Tube) 4 gm EXT BID [facility] Stop: 06/19/21 20:59 Last Admin: 05/26/21 07:56 Dose: 4 gm Documented by: Docusate Sodium (Docusate Sodium 100 Mg Cap) 100 mg PO BID PRN PRN Reason: Constipation Stop: 06/12/21 03:09 Duloxetine HCl (Duloxetine Hcl 60 Mg Cap) 60 mg PO DAILY [facility] Stop: 06/12/21 08:59 Last Admin: 05/26/21 07:53 Dose: 60 mg Documented by: Enoxaparin Sodium (Enoxaparin Inj 40 Mg/0.4 Ml Syr) 40 mg SQ QAM [facility] Stop: 06/12/21 08:59 Last Admin: 05/26/21 08:49 Dose: 40 mg Documented by: Ferrous Sulfate (Ferrous Sulfate 325 Mg Tab) 325 mg PO BIDM [facility] Stop: 06/12/21 07:59 Last Admin: 05/26/21 07:49 Dose: 325 mg Documented by: Gabapentin (Gabapentin 100 Mg Cap) 200 mg PO TID [facility] Stop: 06/13/21 20:59 Last Admin: 05/26/21 07:50 Dose: 200 mg Documented by: Glucagon (Glucagon For Inj 1 Mg Vial) 1 mg SQ UD PRN; Protocol PRN Reason: Hypoglycemia Protocol Stop: 06/12/21 03:09 Glucose (Glucose 10 Tabs/Tube) 4 - 8 tabs PO UD PRN; Protocol PRN Reason: Hypoglycemia Protocol Stop: 06/12/21 03:09 Glucose (Glucose 40% Gel 15 Gm Tube) 15 - 30 gm PO UD PRN; Protocol PRN Reason: Hypoglycemia Protocol Stop: 06/12/21 03:09 Hydralazine HCl (Hydralazine 10 Mg Tab) 10 mg PO BID PRN PRN Reason: Hypertension Stop: 06/15/21 20:59 Last Admin: 05/23/21 00:11 Dose: 10 mg Documented by: Promethazine HCl 12.5 mg/ (Sodium Chloride) 50.5 mls @ 202 mls/hr IV Q6H PRN PRN Reason: Nausea And Vomiting Stop: 06/12/21 03:28 Last Infusion: 05/13/21 04:10 Dose: Infused Documented by: Insulin Aspart (Insulin Aspart 100 Units/Ml 3 Ml Pen) 0 units SC ACHS [facility] Stop: 06/12/21 03:29 Last Admin: 05/26/21 08:48 Dose: 4 units Documented by: Insulin Glargine (Insulin Glargine Solostar 100 Units/Ml 3 Ml Pen) 15 units SC DAILY [facility] Stop: 06/24/21 08:59 Last Admin: 05/26/21 08:48 Dose: 15 units Documented by: Labetalol HCl (Labetalol Hcl 100 Mg Tab) 100 mg PO BID [facility] Stop: 06/16/21 08:59 Last Admin: 05/25/21 21:26 Dose: 100 mg Documented by: Lidocaine (Lidocaine 5% 1 Patch) 1 patch TD QAM [facility] Stop: 06/17/21 09:29 Last Admin: 05/26/21 08:49 Dose: Not Given Documented by: Lisinopril (Lisinopril 40 Mg Tab) 40 mg PO DAILY [facility] Stop: 06/15/21 08:59 Last Admin: 05/26/21 07:54 Dose: 40 mg Documented by: Miscellaneous (Carbohydrates For Hypoglycemia ) 15 - 30 gm PO UD PRN PRN Reason: Hypoglycemia Protocol Stop: 06/12/21 03:09 Miscellaneous (Remove Lidoderm Patch) 1 ea N/A DAILY@2100 [facility] Stop: 06/17/21 20:59 Last Admin: 05/25/21 21:25 Dose: 1 ea Documented by: Montelukast Sodium (Montelukast Sodium 10 Mg Tablet) 10 mg PO HS [facility] Stop: 06/12/21 20:59 Last Admin: 05/25/21 21:28 Dose: 10 mg Documented by: Olanzapine (Olanzapine 10 Mg/2.1 Ml Sdv) 5 mg IM Q6H PRN PRN Reason: Anxiety/Agitation Stop: 06/12/21 02:11 Oxycodone HCl (Oxycodone Hcl Ir 5 Mg Tab (Immediate Release)) 5 mg PO Q6H PRN PRN Reason: Breakthrough Pain Stop: 05/27/21 03:09 Last Admin: 05/21/21 11:15 Dose: 5 mg Documented by: Pantoprazole Sodium (Pantoprazole 40 Mg Tab) 40 mg PO DAILY [facility] Stop: 06/12/21 08:59 Last Admin: 05/26/21 07:53 Dose: 40 mg Documented by: Polyethylene Glycol (Polyethylene (Miralax) 17 Gm Pack) 17 gm PO DAILY PRN PRN Reason: Constipation Stop: 06/12/21 03:09 Potassium Chloride (Potassium Chloride Crtab 20 Meq Tabcr) 20 meq PO DAILY [facility] Stop: 06/14/21 08:59 Last Admin: 05/26/21 08:49 Dose: 20 meq Documented by: Prednisone (he is 5 Mg Tab) 10 mg PO DAILY [facility]; Taper Stop: 05/30/21 08:59 Last Admin: 05/26/21 07:51 Dose: 10 mg Documented by: Sertraline HCl (Sertraline Hcl 100 Mg Tablet) 100 mg PO DAILY [facility] Stop: 06/12/21 08:59 Last Admin: 05/26/21 07:52 Dose: 100 mg Documented by: Tamsulosin HCl (Tamsulosin Hcl 0.4 Mg Cap) 0.8 mg PO DAILY [facility] Stop: 06/12/21 08:59 Last Admin: 05/26/21 07:51 Dose: 0.8 mg Documented by: Tramadol HCl (Tramadol Hcl 50 Mg Tablet) 25 - 50 mg PO Q4H PRN PRN Reason: Pain Stop: 06/13/21 06:53 Last Admin: 05/18/21 20:37 Dose: 50 mg Documented by: Umeclidinium/Vilanterol (Umeclidinium/Vilanterol 62.5/25mcg 7 Puffs/Inhaler) 1 puffs INH DAILY [facility] Stop: 06/12/21 08:59 Last Admin: 05/26/21 08:50 Dose: 1 puffs Documented by:
[2021-05-26] MEDS: LABETALOL HCL 100 MG TAB PO SCH ×2 (12:32→20:41)
[2021-05-26] MEDS: MONTELUKAST SODIUM 10 MG TABLET PO SCH (20:40)
[2021-05-26] MEDS: ATORVASTATIN 40 MG TAB PO SCH (20:40)
[2021-05-27 06:09] LABS: Hematocrit (blood only) 31.6 % (42-52); Hemoglobin 9.9 g/dL (14.0-18.0); Mean Corpuscular Hemoglobin 26.5 pg (25-34); Mean Corpuscular Hgb Conc 31.3 g/dL (32-36); Mean Corpuscular Volume 84.5 fL (80-100); Mean Platelet Volume 9.5 fL (7.4-10.4); Platelet Count 207 K/uL (130-400); RDW Coefficient of Variation 16.4 % (11.5-14.5); RDW Standard Deviation 50.6 fL (36.4-46.3); Red Blood Count 3.74 M/uL (4.7-6.1); White Blood Count 9.51 K/uL (4.8-10.8)
[2021-05-27 06:42] LABS: BUN Creatinine Ratio 25.5 (10-20); Creatinine Clr Calc Pharmacy 93.3 ml/min; Est GFR (African American) 71.5 ml/min; Est GFR (Non-African American) 61.7 ml/min; Potassium 3.6 mmol/L (3.5-5.1)
[2021-05-27] MEDS: LABETALOL HCL 100 MG TAB PO SCH ×2 (09:19→21:37)
[2021-05-27] MEDS: BUMETANIDE 1 MG TAB PO SCH (09:19)
[2021-05-27] MEDS: SERTRALINE HCL 100 MG TABLET PO SCH (09:20)
[2021-05-27] MEDS: predniSONE 5 MG TAB PO SCH (09:20)
[2021-05-27] MEDS: allopurinoL 100 MG TAB PO SCH (09:21)
[2021-05-27] MEDS: DULoxetine HCL 60 MG CAP PO SCH (09:21)
[2021-05-27] MEDS: amLODIPine BESYLATE 5 MG TAB PO SCH (09:21)
[2021-05-27] MEDS: FERROUS SULFATE 325 MG TAB PO SCH ×2 (09:22→17:54)
[2021-05-27] MEDS: TAMSULOSIN HCL 0.4 MG CAP PO SCH (09:22)
[2021-05-27] MEDS: lisinopril 40 MG TAB PO SCH (09:22)
[2021-05-27] MEDS: PANTOprazole 40 MG TAB PO SCH (09:23)
[2021-05-27] MEDS: GABAPENTIN 100 MG CAP PO SCH ×3 (09:23→21:36)
[2021-05-27] MEDS: INSULIN GLARGINE SOLOSTAR 100 UNITS/ML 3 ML PEN SC SCH (09:26)
[2021-05-27] MEDS ORDERED: INSULIN ASPART PER UNIT ONE (09:28)
[2021-05-27] MEDS: INSULIN ASPART 100 UNITS/ML 3 ML PEN SC SCH ×2 (09:30→14:05)
[2021-05-27] MEDS: POTASSIUM CHLORIDE CRTAB 20 MEQ TABCR PO SCH (09:30)
[2021-05-27] MEDS: ENOXAPARIN INJ 40 MG/0.4 ML SYR SQ SCH (09:31)
[2021-05-27] MEDS: UMECLIDINIUM/VILANTEROL 62.5/25MCG 7 PUFFS/INHALER INH SCH (09:32)
[2021-05-27] MEDS: DICLOFENAC SOD 1% GEL 100 GM TUBE EXT SCH ×4 (11:53→21:35)
[2021-05-27] MEDS: LIDOCAINE 5% 1 PATCH TD SCH (11:54)
[2021-05-27] MEDS: INSULIN ASPART PER UNIT SC SCH ×3 (13:07→21:42)
--- NOTE | 2021-05-27 17:36 | Hospitalist Progress Note ---
Date of Service May 27, 2021 Assessment & Plan (1) Asymptomatic hypertensive urgency: Plan: Hypertensive Urgency Presented with hypertensive urgency in the setting of noncompliance with antihypertensive medications. Head CT-no acute intracranial findings Continue amlodipine 10 mg daily, lisinopril 40 mg daily Coreg switched to labetalol 100 mg twice daily Also on bumex BP labile If BP remains persistently elevated, will consider adding scheduled hydralazine Unvaccinated for COVID 19 Patient received J & J vaccine on 05/16 Functional disability Refused Rehab placement last admission PT/OT Case management to help with discharge planning, placement pending Right wrist pain hx of osteo, abscess and s/p surg. debridement in December w/ Dr. Stephens seems to be well healed, no WBC elevation, patient afebrile R wrist XR shows significant arthritis Ortho consulted - don't believe any infectious process, also don't recommend steroid at this time d/t hx of significant infection and s/p surgery Chronic joint pain History of arthritis ESR and uric acid elevated Was started on colchicine however was changed to prednisone due to possible interaction with beta-iglesia On prednisone 40 mg daily, day 3. Was on a very short prednisone taper during previous admission. May need prolonged taper this time. Will decrease to prednisone 20 mg daily starting tomorrow. Case discussed with OP Rheum who recommends tapering prednisone down to 5mg. Will need OP rheum eval. Taper pred 10mg daily x 2 days; 5mg daily x 2 days and then stop. F/U with Rheum. Started on allopurinol 100mg daily x 1 week, 200mg daily x 1 wk and 300mg daily per rheum Check Vitamin D levels Chronic diastolic heart failure EF 60 to 65%, TTE 2020 Appears euvolemic Continue home diuretics CAD Appears stable, continue home medications COPD FRANCIS, CPAP intolerance Past tobacco use No signs of acute exacerbation Continue home inhalers DM II on oral medications Last HbA1c 6.18 April 2021 Continue insulin therapy while hospitalized BSG stable Chronic anemia Hb at baseline Continue iron replacement DVT Px: Lovenox SQ CODE STATUS: Full code Disposition: Case management following, placement pending, medically stable Family: Mr. Hamlet Cheung, contact # [phone]. Ms. Bernice Mathias, contact #[phone]. Admission and Anticipated Discharge Date Admission Date: May 14, 2021 Subjective Patient is seen and examined at bedside States feeling tired BP labile Denies ches pain, dyspnea, dizziness No distress on exam Review of Systems Review of Systems: All systems reviewed & are unremarkable except as noted in Subjective Physical Exam Physical Exam: Physical Exam: Vitals signs as noted above General Appearance: Morbidly obese, no apparent distress Head: normocephalic, Atraumatic Eyes: normal inspection, EOMI Neck: supple, Trachea midline Respiratory/Chest: Normal breath sounds, CTA Cardiovascular: S1, S2, No murmur Abdomen/GI:Soft, Non tender, Bowel sounds present Extremities/Musculoskeletal:normal inspection, 1+ pedal edema Neurologic/Psych:AAOX3, grossly no focal neurological deficits Skin: normal color, warm Results & Data Results & Data ([facility]) Vital Signs (Past 12 Hours) Vital Signs Temp Pulse Resp BP Pulse Ox 05/27/21 15:13 36.4 C L 58 L 17 159/73 H 95 05/27/21 07:49 36.4 C L 57 L 18 139/71 92 Laboratory Results Short CBC 05/27/21 Range/Units 05:31 WBC 9.51 (4.8-10.8) K/uL Hgb 9.9 L (14.0-18.0) g/dL Hct 31.6 L (42-52) % Plt Count 207 (130-400) K/uL BMP 05/27/21 05:31 Sodium 142 Potassium 3.6 Chloride 108 H Carbon Dioxide 29 BUN 31 H Creatinine 1.23 Glucose 103 H Calcium 9.0
[2021-05-27] MEDS: ATORVASTATIN 40 MG TAB PO SCH (21:36)
[2021-05-27] MEDS: MONTELUKAST SODIUM 10 MG TABLET PO SCH (21:36)
[2021-05-28] MEDS: LIDOCAINE 5% 1 PATCH TD SCH (08:48)
[2021-05-28] MEDS: DICLOFENAC SOD 1% GEL 100 GM TUBE EXT SCH ×4 (08:48→20:39)
[2021-05-28] MEDS: amLODIPine BESYLATE 5 MG TAB PO SCH (08:54)
[2021-05-28] MEDS: TAMSULOSIN HCL 0.4 MG CAP PO SCH (08:54)
[2021-05-28] MEDS: LABETALOL HCL 100 MG TAB PO SCH ×2 (08:54→20:40)
[2021-05-28] MEDS: BUMETANIDE 1 MG TAB PO SCH (08:54)
[2021-05-28] MEDS: GABAPENTIN 100 MG CAP PO SCH ×3 (08:54→20:39)
[2021-05-28] MEDS: FERROUS SULFATE 325 MG TAB PO SCH ×2 (08:54→17:58)
[2021-05-28] MEDS: DULoxetine HCL 60 MG CAP PO SCH (08:54)
[2021-05-28] MEDS: predniSONE 5 MG TAB PO SCH (08:55)
[2021-05-28] MEDS: lisinopril 40 MG TAB PO SCH (08:55)
[2021-05-28] MEDS: PANTOprazole 40 MG TAB PO SCH (08:55)
[2021-05-28] MEDS: SERTRALINE HCL 100 MG TABLET PO SCH (08:55)
[2021-05-28] MEDS: allopurinoL 100 MG TAB PO SCH (08:55)
[2021-05-28] MEDS: POTASSIUM CHLORIDE CRTAB 20 MEQ TABCR PO SCH (08:55)
[2021-05-28] MEDS: ENOXAPARIN INJ 40 MG/0.4 ML SYR SQ SCH (08:56)
[2021-05-28] MEDS: INSULIN GLARGINE SOLOSTAR 100 UNITS/ML 3 ML PEN SC SCH (08:59)
[2021-05-28] MEDS: INSULIN ASPART PER UNIT SC SCH ×4 (08:59→20:45)
[2021-05-28] MEDS: UMECLIDINIUM/VILANTEROL 62.5/25MCG 7 PUFFS/INHALER INH SCH (10:35)
[2021-05-28] MEDS: hydrALAZINE 10 MG TAB PO SCH ×2 (10:35→20:39)
--- NOTE | 2021-05-28 17:47 | Hospitalist Progress Note ---
Date of Service May 28, 2021 Assessment & Plan (1) Asymptomatic hypertensive urgency: Plan: Hypertensive Urgency Presented with hypertensive urgency in the setting of noncompliance with antihypertensive medications. Head CT-no acute intracranial findings Continue amlodipine 10 mg daily, lisinopril 40 mg daily Coreg switched to labetalol 100 mg twice daily Also on bumex BP labile Start on hydralazine 5 mg twice daily for better control of blood pressure Unvaccinated for COVID 19 Patient received J & J vaccine on 05/16 Functional disability Refused Rehab placement last admission PT/OT Case management to help with discharge planning, placement pending Right wrist pain hx of osteo, abscess and s/p surg. debridement in December w/ Dr. Stephens seems to be well healed, no WBC elevation, patient afebrile R wrist XR shows significant arthritis Ortho consulted - don't believe any infectious process, also don't recommend steroid at this time d/t hx of significant infection and s/p surgery Chronic joint pain History of arthritis ESR and uric acid elevated Was started on colchicine however was changed to prednisone due to possible interaction with beta-iglesai On prednisone 40 mg daily, day 3. Was on a very short prednisone taper during previous admission. May need prolonged taper this time. Will decrease to prednisone 20 mg daily starting tomorrow. Case discussed with OP Rheum who recommends tapering prednisone down to 5mg. Will need OP rheum eval. Taper pred 10mg daily x 2 days; 5mg daily x 2 days and then stop. F/U with Rheum. Started on allopurinol 100mg daily x 1 week, 200mg daily x 1 wk and 300mg daily per rheum Check Vitamin D levels--pending Chronic diastolic heart failure EF 60 to 65%, TTE 2020 Appears euvolemic Continue home diuretics CAD Appears stable, continue home medications COPD FRANCIS, CPAP intolerance Past tobacco use No signs of acute exacerbation Continue home inhalers DM II on oral medications Last HbA1c 6.18 April 2021 Continue insulin therapy while hospitalized BSG stable Chronic anemia Hb at baseline Continue iron replacement DVT Px: Lovenox SQ CODE STATUS: Full code Disposition: Case management following, placement pending, medically stable Family: Mr. Hamlet Cheung, contact # [phone]. Ms. Bernice Mathias, contact #[phone]. Admission and Anticipated Discharge Date Admission Date: May 14, 2021 Subjective Patient is seen and examined at bedside Reports having generalized muscle soreness today Otherwise feels well Denies ches pain, dyspnea, dizziness Review of Systems Review of Systems: All systems reviewed & are unremarkable except as noted in Subjective Physical Exam Physical Exam: Physical Exam: Vitals signs as noted above General Appearance: Morbidly obese, no apparent distress Head: normocephalic, Atraumatic Eyes: normal inspection, EOMI Neck: supple, Trachea midline Respiratory/Chest: Normal breath sounds, CTA Cardiovascular: S1, S2, No murmur Abdomen/GI:Soft, Non tender, Bowel sounds present Extremities/Musculoskeletal:normal inspection, 1+ pedal edema Neurologic/Psych:AAOX3, grossly no focal neurological deficits Skin: normal color, warm Results & Data Results & Data ([facility]) Vital Signs (Past 12 Hours) Vital Signs Temp Pulse Pulse Pulse Resp BP Pulse Ox 05/28/21 14:26 36.7 C 61 17 125/71 91 05/28/21 08:53 60 05/28/21 08:15 36.5 C 56 L 17 163/73 H 92
[2021-05-28] MEDS: ATORVASTATIN 40 MG TAB PO SCH (20:38)
[2021-05-28] MEDS: MONTELUKAST SODIUM 10 MG TABLET PO SCH (20:39)
[2021-05-29 07:50] LABS: BUN Creatinine Ratio 21.6 (10-20); Calcium 9.4 mg/dl (8.5-10.1); Creatinine Clr Calc Pharmacy 97.2 ml/min; Est GFR (African American) 75.1 ml/min; Est GFR (Non-African American) 64.8 ml/min; Potassium 3.6 mmol/L (3.5-5.1)
[2021-05-29] MEDS: INSULIN ASPART PER UNIT SC SCH ×4 (09:05→21:12)
[2021-05-29] MEDS: INSULIN GLARGINE SOLOSTAR 100 UNITS/ML 3 ML PEN SC SCH (09:06)
[2021-05-29] MEDS: GABAPENTIN 100 MG CAP PO SCH ×3 (09:09→21:06)
[2021-05-29] MEDS: TAMSULOSIN HCL 0.4 MG CAP PO SCH (09:09)
[2021-05-29] MEDS: LABETALOL HCL 100 MG TAB PO SCH ×2 (09:10→21:07)
[2021-05-29] MEDS: FERROUS SULFATE 325 MG TAB PO SCH ×2 (09:11→18:13)
[2021-05-29] MEDS: PANTOprazole 40 MG TAB PO SCH (09:11)
[2021-05-29] MEDS: BUMETANIDE 1 MG TAB PO SCH (09:11)
[2021-05-29] MEDS: amLODIPine BESYLATE 5 MG TAB PO SCH (09:12)
[2021-05-29] MEDS: lisinopril 40 MG TAB PO SCH (09:12)
[2021-05-29] MEDS: SERTRALINE HCL 100 MG TABLET PO SCH (09:13)
[2021-05-29] MEDS: allopurinoL 100 MG TAB PO SCH (09:13)
[2021-05-29] MEDS: predniSONE 5 MG TAB PO SCH (09:14)
[2021-05-29] MEDS: DULoxetine HCL 60 MG CAP PO SCH (09:14)
[2021-05-29] MEDS: UMECLIDINIUM/VILANTEROL 62.5/25MCG 7 PUFFS/INHALER INH SCH (09:15)
[2021-05-29] MEDS: hydrALAZINE 10 MG TAB PO SCH ×2 (09:17→21:06)
[2021-05-29] MEDS: LIDOCAINE 5% 1 PATCH TD SCH (09:18)
[2021-05-29] MEDS: DICLOFENAC SOD 1% GEL 100 GM TUBE EXT SCH ×4 (09:20→21:19)
[2021-05-29] MEDS: ENOXAPARIN INJ 40 MG/0.4 ML SYR SQ SCH (09:21)
[2021-05-29] MEDS: POTASSIUM CHLORIDE CRTAB 20 MEQ TABCR PO SCH (09:24)
--- NOTE | 2021-05-29 18:42 | Hospitalist Progress Note ---
Date of Service May 29, 2021 Assessment & Plan (1) Asymptomatic hypertensive urgency: Plan: Hypertensive Urgency Presented with hypertensive urgency in the setting of noncompliance with antihypertensive medications. Head CT-no acute intracranial findings Continue amlodipine 10 mg daily, lisinopril 40 mg daily Coreg switched to labetalol 100 mg twice daily Also on bumex BP labile Continue Hydralazine 5 mg BID Unvaccinated for COVID 19 Patient received J & J vaccine on 05/16 Functional disability Refused Rehab placement last admission PT/OT Case management to help with discharge planning, placement pending Right wrist pain hx of osteo, abscess and s/p surg. debridement in December w/ Dr. Stephens seems to be well healed, no WBC elevation, patient afebrile R wrist XR shows significant arthritis Ortho consulted - don't believe any infectious process, also don't recommend steroid at this time d/t hx of significant infection and s/p surgery Chronic joint pain History of arthritis ESR and uric acid elevated Was started on colchicine however was changed to prednisone due to possible interaction with beta-iglesia On prednisone 40 mg daily, day 3. Was on a very short prednisone taper during previous admission. May need prolonged taper this time. Will decrease to prednisone 20 mg daily starting tomorrow. Case discussed with OP Rheum who recommends tapering prednisone down to 5mg. Will need OP rheum eval. Taper pred 10mg daily x 2 days; 5mg daily x 2 days and then stop. F/U with Rheum. Started on allopurinol 100mg daily x 1 week, 200mg daily x 1 wk and 300mg daily per rheum Chronic diastolic heart failure EF 60 to 65%, TTE 2020 Appears euvolemic Continue home diuretics CAD Appears stable, continue home medications COPD FRANCIS, CPAP intolerance Past tobacco use No signs of acute exacerbation Continue home inhalers DM II on oral medications Last HbA1c 6.18 April 2021 Continue insulin therapy while hospitalized BSG stable Chronic anemia Hb at baseline Continue iron replacement DVT Px: Lovenox SQ CODE STATUS: Full code Disposition: Case management following, placement pending, medically stable Family: Mr. Hamlet Cheung, contact # [phone]. Ms. Bernice Mathias, contact #[phone]. Admission and Anticipated Discharge Date Admission Date: May 14, 2021 Subjective Patient is seen and examined at bedside States feeling nauseous earlier today but later resolved Continue to have Generalized pain No other complaints Denies ches pain, dyspnea, dizziness, abd pain Review of Systems Review of Systems: All systems reviewed & are unremarkable except as noted in Subjective Physical Exam Physical Exam: Physical Exam: Vitals signs as noted above General Appearance: Morbidly obese, no apparent distress Head: normocephalic, Atraumatic Eyes: normal inspection, EOMI Neck: supple, Trachea midline Respiratory/Chest: Normal breath sounds, CTA Cardiovascular: S1, S2, No murmur Abdomen/GI:Soft, Non tender, Bowel sounds present Extremities/Musculoskeletal:normal inspection, 1+ pedal edema Neurologic/Psych:AAOX3, grossly no focal neurological deficits Skin: normal color, warm Results & Data Results & Data ([place]) Vital Signs (Past 12 Hours) Vital Signs Temp Pulse Resp BP Pulse Ox 05/29/21 14:57 36.3 C L 61 18 157/82 H 93 05/29/21 08:56 56 L 155/69 H 05/29/21 07:52 36.4 C L 55 L 18 170/76 H 93 Laboratory Results [facility] 05/29/21 06:52 Sodium 142 Potassium 3.6 Chloride 108 H Carbon Dioxide 28 BUN 26 H Creatinine 1.18 Glucose 108 H Calcium 9.4
[2021-05-29] MEDS: ATORVASTATIN 40 MG TAB PO SCH (21:06)
[2021-05-29] MEDS: MONTELUKAST SODIUM 10 MG TABLET PO SCH (21:07)
[2021-05-30] MEDS: ACETAMINOPHEN 325 MG TAB PO PRN (00:02)
[2021-05-30] MEDS: GABAPENTIN 100 MG CAP PO SCH ×3 (07:42→21:38)
[2021-05-30] MEDS: hydrALAZINE 10 MG TAB PO SCH ×2 (07:43→20:39)
[2021-05-30] MEDS: allopurinoL 100 MG TAB PO SCH (07:44)
[2021-05-30] MEDS: BUMETANIDE 1 MG TAB PO SCH (07:45)
[2021-05-30] MEDS: SERTRALINE HCL 100 MG TABLET PO SCH (07:45)
[2021-05-30] MEDS: lisinopril 40 MG TAB PO SCH (07:46)
[2021-05-30] MEDS: TAMSULOSIN HCL 0.4 MG CAP PO SCH (07:47)
[2021-05-30] MEDS: FERROUS SULFATE 325 MG TAB PO SCH ×2 (07:49→16:37)
[2021-05-30] MEDS: LABETALOL HCL 100 MG TAB PO SCH ×2 (07:49→20:39)
[2021-05-30] MEDS: DULoxetine HCL 60 MG CAP PO SCH (07:49)
[2021-05-30] MEDS: PANTOprazole 40 MG TAB PO SCH (07:50)
[2021-05-30] MEDS: amLODIPine BESYLATE 5 MG TAB PO SCH (07:50)
[2021-05-30] MEDS: UMECLIDINIUM/VILANTEROL 62.5/25MCG 7 PUFFS/INHALER INH SCH (07:52)
[2021-05-30] MEDS: ENOXAPARIN INJ 40 MG/0.4 ML SYR SQ SCH (07:53)
[2021-05-30] MEDS: POTASSIUM CHLORIDE CRTAB 20 MEQ TABCR PO SCH (08:00)
[2021-05-30] MEDS: INSULIN GLARGINE SOLOSTAR 100 UNITS/ML 3 ML PEN SC SCH (08:31)
[2021-05-30] MEDS: INSULIN ASPART PER UNIT SC SCH ×4 (08:34→21:06)
--- NOTE | 2021-05-30 09:34 | Hospitalist Progress Note ---
Date of Service May 30, 2021 Assessment & Plan (1) Asymptomatic hypertensive urgency: Plan: Hypertensive Urgency Presented with hypertensive urgency in the setting of noncompliance with antihypertensive medications. Head CT-no acute intracranial findings Continue amlodipine 10 mg daily, lisinopril 40 mg daily Coreg switched to labetalol 100 mg twice daily - labetalol occasionally getting held due to bradycardia Also on bumex BP labile Increase Hydralazine to 10mg BID Unvaccinated for COVID 19 Patient received J & J vaccine on 05/16 Functional disability Refused Rehab placement last admission PT/OT Case management to help with discharge planning, placement pending Right wrist pain hx of osteo, abscess and s/p surg. debridement in December w/ Dr. Stephens seems to be well healed, no WBC elevation, patient afebrile R wrist XR shows significant arthritis Ortho consulted - don't believe any infectious process, also don't recommend steroid at this time d/t hx of significant infection and s/p surgery Chronic joint pain History of arthritis ESR and uric acid elevated Was started on colchicine however was changed to prednisone due to possible interaction with beta-iglesia On prednisone 40 mg daily, day 3. Was on a very short prednisone taper during previous admission. May need prolonged taper this time. Will decrease to prednisone 20 mg daily starting tomorrow. Case discussed with OP Rheum who recommends tapering prednisone down to 5mg. Will need OP rheum eval. Prednisone now discontinued. Started on allopurinol 100mg daily x 1 week, 200mg daily x 1 wk and 300mg daily per rheum Chronic diastolic heart failure EF 60 to 65%, TTE 2020 Appears euvolemic Continue home diuretics CAD Appears stable, continue home medications COPD FRANCIS, CPAP intolerance Past tobacco use No signs of acute exacerbation Continue home inhalers DM II on oral medications Last HbA1c 6.18 April 2021 Continue insulin therapy while hospitalized BSG stable Chronic anemia Hb at baseline Continue iron replacement DVT Px: Lovenox SQ CODE STATUS: Full code Disposition: Case management following, placement pending, medically stable Family: Mr. Hamlet Cheung, contact # [phone]. Ms. Bernice Mathias, contact #[phone]. Admission and Anticipated Discharge Date Admission Date: May 14, 2021 Supervising Physician Co-Signing Physician Notes Patient is seen and examined at bedside. No new complaints. Waiting for placement. Blood pressure remains mildly elevated. Denies any chest pain, shortness of breath, dizziness. On exam patient is obese, no apparent distress, normocephalic atraumatic, lungs are clear to auscultation, normal breath sounds, S1-S2, no murmur, abdomen soft, nontender, normal bowel sounds, alert, awake, oriented, grossly no focal deficits. Hypertensive urgency, noncompliance, osteoarthritis, possible gout, Osteoarthritis. Agree with increasing hydralazine to 10 mg twice daily for better blood pressure control. Continue Allopurinol. Waiting for Rehab placement. I personally reviewed the record. Patient is interviewed and examined at bedside. Patient's care is coordinated with Sarah Beth Villafana PA-C. Please refer to the documentation above for details of patient's presentation and for discussion of other issues. Subjective Patient seen and examined in room 307. Follow-up hypertensive urgency. He offers no acute concerns today. He denies chest pain, shortness of breath, nausea, vomiting, abdominal pain. Continues to have bilateral ankle pain and wrist pain. It is currently stable. Review of Systems Review of Systems: All systems reviewed & are unremarkable except as noted in HPI & below Physical Exam Physical Exam: Gen: WD/WN, obese male, NAD, A&O x3 HEENT: Normocephalic, atraumatic, conjunctivae moist, sclerae anicteric, mucous membranes moist. Lung: Clear to Auscultation bilaterally, no wheezes/rales/rhonchi Heart: Regular rate, regular rhythm, no murmurs, rubs, or gallops Abdomen: Soft, NT, ND +BS x 4 Extremities: No edema. chronic venous stasis changes Skin: Warm, no rash, negative turgor. Results & Data Results & Data ([facility]) Vital Signs (Past 12 Hours) Vital Signs Temp Pulse Resp BP Pulse Ox 05/30/21 07:33 36.4 C L 55 L 16 158/83 H 93 05/29/21 21:30 105 H 95 Medications Administered Current Inpatient Medications Acetaminophen (Acetaminophen 325 Mg Tab) 650 mg PO Q4H PRN PRN Reason: Pain or Fever Stop: 06/12/21 03:09 Last Admin: 05/30/21 00:02 Dose: 650 mg Documented by: Allopurinol (Allopurinol 100 Mg Tab) 100 mg PO DAILY ZOHIAB; Taper Stop: 07/07/21 08:59 Last Admin: 05/30/21 07:44 Dose: 100 mg Documented by: Amlodipine Besylate (Amlodipine Besylate 5 Mg Tab) 10 mg PO DAILY ZOHAIB Stop: 06/12/21 08:59 Last Admin: 05/30/21 07:50 Dose: 10 mg Documented by: Atorvastatin Calcium (Atorvastatin 40 Mg Tab) 40 mg PO HS ZOHAIB Stop: 06/12/21 20:59 Last Admin: 05/29/21 21:06 Dose: 40 mg Documented by: Bumetanide (Bumetanide 1 Mg Tab) 1 mg PO DAILY ZOHAIB Stop: 06/14/21 08:59 Last Admin: 05/30/21 07:45 Dose: 1 mg Documented by: Dextrose (Dextrose 50% 50 Ml Syringe) 25 - 50 ml IV UD PRN; Protocol PRN Reason: Hypoglycemia Protocol Stop: 06/12/21 03:09 Docusate Sodium (Docusate Sodium 100 Mg Cap) 100 mg PO BID PRN PRN Reason: Constipation Stop: 06/12/21 03:09 Duloxetine HCl (Duloxetine Hcl 60 Mg Cap) 60 mg PO DAILY ZOHAIB Stop: 06/12/21 08:59 Last Admin: 05/30/21 07:49 Dose: 60 mg Documented by: Enoxaparin Sodium (Enoxaparin Inj 40 Mg/0.4 Ml Syr) 40 mg SQ QAM ZOHAIB Stop: 06/12/21 08:59 Last Admin: 05/30/21 07:53 Dose: 40 mg Documented by: Ferrous Sulfate (Ferrous Sulfate 325 Mg Tab) 325 mg PO BIDM ZOHAIB Stop: 06/12/21 07:59 Last Admin: 05/30/21 07:49 Dose: 325 mg Documented by: Gabapentin (Gabapentin 100 Mg Cap) 200 mg PO TID ZOHAIB Stop: 06/13/21 20:59 Last Admin: 05/30/21 07:42 Dose: 200 mg Documented by: Glucagon (Glucagon For Inj 1 Mg Vial) 1 mg SQ UD PRN; Protocol PRN Reason: Hypoglycemia Protocol Stop: 06/12/21 03:09 Glucose (Glucose 10 Tabs/Tube) 4 - 8 tabs PO UD PRN; Protocol PRN Reason: Hypoglycemia Protocol Stop: 06/12/21 03:09 Glucose (Glucose 40% Gel 15 Gm Tube) 15 - 30 gm PO UD PRN; Protocol PRN Reason: Hypoglycemia Protocol Stop: 06/12/21 03:09 Hydralazine HCl (Hydralazine 10 Mg Tab) 5 mg PO BID [facility] Stop: 06/27/21 09:44 Last Admin: 05/30/21 07:43 Dose: 5 mg Documented by: Promethazine HCl 12.5 mg/ (Sodium Chloride) 50.5 mls @ 202 mls/hr IV Q6H PRN PRN Reason: Nausea And Vomiting Stop: 06/12/21 03:28 Last Infusion: 05/13/21 04:10 Dose: Infused Documented by: Insulin Aspart (Insulin Aspart Per Unit) 0 units SC ACHS [facility] Stop: 06/26/21 11:59 Last Admin: 05/30/21 08:34 Dose: 4 units Documented by: Insulin Glargine (Insulin Glargine Solostar 100 Units/Ml 3 Ml Pen) 15 units SC DAILY [facility] Stop: 06/24/21 08:59 Last Admin: 05/30/21 08:31 Dose: 15 units Documented by: Labetalol HCl (Labetalol Hcl 100 Mg Tab) 100 mg PO BID [facility] Stop: 06/16/21 08:59 Last Admin: 05/30/21 07:49 Dose: Not Given Documented by: Lisinopril (Lisinopril 40 Mg Tab) 40 mg PO DAILY [facility] Stop: 06/15/21 08:59 Last Admin: 05/30/21 07:46 Dose: 40 mg Documented by: Miscellaneous (Carbohydrates For Hypoglycemia ) 15 - 30 gm PO UD PRN PRN Reason: Hypoglycemia Protocol Stop: 06/12/21 03:09 Montelukast Sodium (Montelukast Sodium 10 Mg Tablet) 10 mg PO HS [facility] Stop: 06/12/21 20:59 Last Admin: 05/29/21 21:07 Dose: 10 mg Documented by: Olanzapine (Olanzapine 10 Mg/2.1 Ml Sdv) 5 mg IM Q6H PRN PRN Reason: Anxiety/Agitation Stop: 06/12/21 02:11 Pantoprazole Sodium (Pantoprazole 40 Mg Tab) 40 mg PO DAILY [facility] Stop: 06/12/21 08:59 Last Admin: 05/30/21 07:50 Dose: 40 mg Documented by: Polyethylene Glycol (Polyethylene (Miralax) 17 Gm Pack) 17 gm PO DAILY PRN PRN Reason: Constipation Stop: 06/12/21 03:09 Potassium Chloride (Potassium Chloride Crtab 20 Meq Tabcr) 20 meq PO DAILY ZOHAIB Stop: 06/14/21 08:59 Last Admin: 05/30/21 08:00 Dose: 20 meq Documented by: Sertraline HCl (Sertraline Hcl 100 Mg Tablet) 100 mg PO DAILY ZOHAIB Stop: 06/12/21 08:59 Last Admin: 05/30/21 07:45 Dose: 100 mg Documented by: Tamsulosin HCl (Tamsulosin Hcl 0.4 Mg Cap) 0.8 mg PO DAILY ZOHAIB Stop: 06/12/21 08:59 Last Admin: 05/30/21 07:47 Dose: 0.8 mg Documented by: Tramadol HCl (Tramadol Hcl 50 Mg Tablet) 25 - 50 mg PO Q4H PRN PRN Reason: Pain Stop: 06/13/21 06:53 Last Admin: 05/18/21 20:37 Dose: 50 mg Documented by: Umeclidinium/Vilanterol (Umeclidinium/Vilanterol 62.5/25mcg 7 Puffs/Inhaler) 1 puffs INH DAILY ZOHAIB Stop: 06/12/21 08:59 Last Admin: 05/30/21 07:52 Dose: 1 puffs Documented by:
[2021-05-30] MEDS: ATORVASTATIN 40 MG TAB PO SCH (21:38)
[2021-05-30] MEDS: MONTELUKAST SODIUM 10 MG TABLET PO SCH (21:38)
[2021-05-31 07:14] LABS: BUN Creatinine Ratio 21.6 (10-20); Calcium 9.6 mg/dl (8.5-10.1); Creatinine Clr Calc Pharmacy 107.2 ml/min; Est GFR (African American) 84.6 ml/min; Potassium 3.5 mmol/L (3.5-5.1)
[2021-05-31] MEDS: PANTOprazole 40 MG TAB PO SCH (08:29)
[2021-05-31] MEDS: hydrALAZINE 10 MG TAB PO SCH ×2 (08:29→20:44)
[2021-05-31] MEDS: LABETALOL HCL 100 MG TAB PO SCH ×2 (08:29→20:44)
[2021-05-31] MEDS: GABAPENTIN 100 MG CAP PO SCH ×3 (08:29→20:44)
[2021-05-31] MEDS: TAMSULOSIN HCL 0.4 MG CAP PO SCH (08:29)
[2021-05-31] MEDS: amLODIPine BESYLATE 5 MG TAB PO SCH (08:29)
[2021-05-31] MEDS: FERROUS SULFATE 325 MG TAB PO SCH ×2 (08:29→18:04)
[2021-05-31] MEDS: BUMETANIDE 1 MG TAB PO SCH (08:29)
[2021-05-31] MEDS: DULoxetine HCL 60 MG CAP PO SCH (08:30)
[2021-05-31] MEDS: ENOXAPARIN INJ 40 MG/0.4 ML SYR SQ SCH (08:30)
[2021-05-31] MEDS: SERTRALINE HCL 100 MG TABLET PO SCH (08:30)
[2021-05-31] MEDS: allopurinoL 100 MG TAB PO SCH (08:30)
[2021-05-31] MEDS: lisinopril 40 MG TAB PO SCH (08:30)
[2021-05-31] MEDS: UMECLIDINIUM/VILANTEROL 62.5/25MCG 7 PUFFS/INHALER INH SCH (08:30)
[2021-05-31] MEDS: POTASSIUM CHLORIDE CRTAB 20 MEQ TABCR PO SCH (08:32)
[2021-05-31] MEDS: INSULIN ASPART PER UNIT SC SCH ×4 (09:02→20:47)
[2021-05-31] MEDS: INSULIN GLARGINE SOLOSTAR 100 UNITS/ML 3 ML PEN SC SCH (09:03)
--- NOTE | 2021-05-31 16:59 | Hospitalist Progress Note ---
Date of Service May 31, 2021 Assessment & Plan (1) Asymptomatic hypertensive urgency: Plan: Hypertensive Urgency Presented with hypertensive urgency in the setting of noncompliance with antihypertensive medications. Head CT-no acute intracranial findings Continue amlodipine 10 mg daily, lisinopril 40 mg daily Coreg switched to labetalol 100 mg twice daily - labetalol occasionally getting held due to bradycardia Also on bumex BP labile Increase Hydralazine to 10mg BID -we will increase to 20 mg twice daily from 05/31/2021 Blood pressure remains on the upper side at 173/78 Unvaccinated for COVID 19 Patient received J & J vaccine on 05/16 Functional disability Refused Rehab placement last admission PT/OT Case management to help with discharge planning, placement pending Awaiting placement Right wrist pain hx of osteo, abscess and s/p surg. debridement in December w/ Dr. Stephens seems to be well healed, no WBC elevation, patient afebrile R wrist XR shows significant arthritis Ortho consulted - don't believe any infectious process, also don't recommend steroid at this time d/t hx of significant infection and s/p surgery Chronic joint pain History of arthritis ESR and uric acid elevated Was started on colchicine however was changed to prednisone due to possible interaction with beta-iglesia On prednisone 40 mg daily, day 3. Was on a very short prednisone taper during previous admission. May need prolonged taper this time. Will decrease to prednisone 20 mg daily starting tomorrow. Case discussed with OP Rheum who recommends tapering prednisone down to 5mg. Will need OP rheum eval. Prednisone now discontinued. Started on allopurinol 100mg daily x 1 week, 200mg daily x 1 wk and 300mg daily per rheum Chronic diastolic heart failure EF 60 to 65%, TTE 2020 Appears euvolemic Continue home diuretics CAD Appears stable, continue home medications COPD FRANCIS, CPAP intolerance Past tobacco use No signs of acute exacerbation Continue home inhalers DM II on oral medications Last HbA1c 6.18 April 2021 Continue insulin therapy while hospitalized BSG stable Chronic anemia Hb at baseline Continue iron replacement DVT Px: Lovenox SQ CODE STATUS: Full code Disposition: Case management following, placement pending, medically stable Family: Mr. Hamlet Cheung, contact # [phone]. Ms. Bernice Mathias, contact #[phone]. Medically stable to be discharged Admission and Anticipated Discharge Date Admission Date: May 14, 2021 Subjective 05/31/2021 The patient was seen and examined in medical floor He remained stable and has been waiting to be placed Complaints of weakness and aches and pains in multiple joints Review of Systems Review of Systems: All systems reviewed and are unremarkable except as noted below Musculoskeletal: Aches and pains but no acute arthritis in any joint Neurologic: Generalized weakness Physical Exam Physical Exam: Sitting at the edge of the bed without any acute distress Constitutional: well developed, well nourished and + morbidly obese; not ill appearing Eyes: PERRL, conjunctivae normal, anicteric sclerae ENMT: external ear and nose normal, oropharynx normal Neck: trachea midline, no thyromegaly Respiratory: no respiratory distress Auscultation: lungs clear to auscultation bilaterally and + diminished lung sounds Cardiovascular: Rate/Rhythm: regular rate and regular rhythm; not tachycardic Heart Sounds: normal S1 and normal S2; no murmur Extremities: + edema (Trace to 1+ edema bilaterally) Gastrointestinal (Abdomen): Inspection/Auscultation: normal bowel sounds; abdomen not distended Percussion/Palpation: abdomen soft; abdomen nontender Musculoskeletal: No acute arthritis in any joint Neurologic: Alert, awake and oriented x3. No focal sensory or no motor deficit appreciated Lymphatic: no cervical or axillary lymphadenopathy Results & Data Results & Data ([facility]) Vital Signs (Past 12 Hours) Vital Signs Temp Pulse Resp BP Pulse Ox 05/31/21 16:08 36.5 C 60 18 173/78 H 99 05/31/21 07:26 36.6 C 61 18 161/74 H 91 Laboratory Results [facility] 05/31/21 05:26 Sodium 142 Potassium 3.5 Chloride 109 H Carbon Dioxide 23 BUN 23 H Creatinine 1.07 Glucose 86 Calcium 9.6 Medications Administered Current Inpatient Medications Acetaminophen (Acetaminophen 325 Mg Tab) 650 mg PO Q4H PRN PRN Reason: Pain or Fever Stop: 06/12/21 03:09 Last Admin: 05/30/21 00:02 Dose: 650 mg Documented by: Allopurinol (Allopurinol 100 Mg Tab) 200 mg PO DAILY ZOHAIB; Taper Stop: 07/07/21 08:59 Last Admin: 05/31/21 08:30 Dose: 200 mg Documented by: Amlodipine Besylate (Amlodipine Besylate 5 Mg Tab) 10 mg PO DAILY ZOHAIB Stop: 06/12/21 08:59 Last Admin: 12/22/21 08:29 Dose: 10 mg Documented by: Atorvastatin Calcium (Atorvastatin 40 Mg Tab) 40 mg PO HS [facility] Stop: 06/12/21 20:59 Last Admin: 05/30/21 21:38 Dose: 40 mg Documented by: Bumetanide (Bumetanide 1 Mg Tab) 1 mg PO DAILY ZOHAIB Stop: 06/14/21 08:59 Last Admin: 05/31/21 08:29 Dose: 1 mg Documented by: Dextrose (Dextrose 50% 50 Ml Syringe) 25 - 50 ml IV UD PRN; Protocol PRN Reason: Hypoglycemia Protocol Stop: 06/12/21 03:09 Docusate Sodium (Docusate Sodium 100 Mg Cap) 100 mg PO BID PRN PRN Reason: Constipation Stop: 06/12/21 03:09 Duloxetine HCl (Duloxetine Hcl 60 Mg Cap) 60 mg PO DAILY ZOHAIB Stop: 06/12/21 08:59 Last Admin: 05/31/21 08:30 Dose: 60 mg Documented by: Enoxaparin Sodium (Enoxaparin Inj 40 Mg/0.4 Ml Syr) 40 mg SQ QAM ZOHAIB Stop: 06/12/21 08:59 Last Admin: 05/31/21 08:30 Dose: 40 mg Documented by: Ferrous Sulfate (Ferrous Sulfate 325 Mg Tab) 325 mg PO BIDM ZOHAIB Stop: 06/12/21 07:59 Last Admin: 05/31/21 08:29 Dose: 325 mg Documented by: Gabapentin (Gabapentin 100 Mg Cap) 200 mg PO TID ZOHAIB Stop: 06/13/21 20:59 Last Admin: 05/31/21 13:59 Dose: 200 mg Documented by: Glucagon (Glucagon For Inj 1 Mg Vial) 1 mg SQ UD PRN; Protocol PRN Reason: Hypoglycemia Protocol Stop: 06/12/21 03:09 Glucose (Glucose 10 Tabs/Tube) 4 - 8 tabs PO UD PRN; Protocol PRN Reason: Hypoglycemia Protocol Stop: 06/12/21 03:09 Glucose (Glucose 40% Gel 15 Gm Tube) 15 - 30 gm PO UD PRN; Protocol PRN Reason: Hypoglycemia Protocol Stop: 06/12/21 03:09 Hydralazine HCl (Hydralazine 10 Mg Tab) 10 mg PO BID ZOHAIB Stop: 06/29/21 20:59 Last Admin: 05/31/21 08:29 Dose: 10 mg Documented by: Promethazine HCl 12.5 mg/ (Sodium Chloride) 50.5 mls @ 202 mls/hr IV Q6H PRN PRN Reason: Nausea And Vomiting Stop: 06/12/21 03:28 Last Infusion: 05/13/21 04:10 Dose: Infused Documented by: Insulin Aspart (Insulin Aspart Per Unit) 0 units SC ACHS ZOHAIB Stop: 06/26/21 11:59 Last Admin: 05/31/21 12:42 Dose: 2 units Documented by: Insulin Glargine (Insulin Glargine Solostar 100 Units/Ml 3 Ml Pen) 15 units SC DAILY ZOHAIB Stop: 06/24/21 08:59 Last Admin: 05/31/21 09:03 Dose: 15 units Documented by: Labetalol HCl (Labetalol Hcl 100 Mg Tab) 100 mg PO BID [facility] Stop: 06/16/21 08:59 Last Admin: 05/31/21 08:29 Dose: 100 mg Documented by: Lisinopril (Lisinopril 40 Mg Tab) 40 mg PO DAILY ZOHAIB Stop: 06/15/21 08:59 Last Admin: 05/31/21 08:30 Dose: 40 mg Documented by: Miscellaneous (Carbohydrates For Hypoglycemia ) 15 - 30 gm PO UD PRN PRN Reason: Hypoglycemia Protocol Stop: 06/12/21 03:09 Montelukast Sodium (Montelukast Sodium 10 Mg Tablet) 10 mg PO HS [facility] Stop: 06/12/21 20:59 Last Admin: 05/30/21 21:38 Dose: 10 mg Documented by: Olanzapine (Olanzapine 10 Mg/2.1 Ml Sdv) 5 mg IM Q6H PRN PRN Reason: Anxiety/Agitation Stop: 06/12/21 02:11 Pantoprazole Sodium (Pantoprazole 40 Mg Tab) 40 mg PO DAILY ZOHAIB Stop: 06/12/21 08:59 Last Admin: 05/31/21 08:29 Dose: 40 mg Documented by: Polyethylene Glycol (Polyethylene (Miralax) 17 Gm Pack) 17 gm PO DAILY PRN PRN Reason: Constipation Stop: 06/12/21 03:09 Potassium Chloride (Potassium Chloride Crtab 20 Meq Tabcr) 20 meq PO DAILY ZOHAIB Stop: 06/14/21 08:59 Last Admin: 05/31/21 08:32 Dose: 20 meq Documented by: Sertraline HCl (Sertraline Hcl 100 Mg Tablet) 100 mg PO DAILY [facility] Stop: 06/12/21 08:59 Last Admin: 05/31/21 08:30 Dose: 100 mg Documented by: Tamsulosin HCl (Tamsulosin Hcl 0.4 Mg Cap) 0.8 mg PO DAILY ZOHAIB Stop: 06/12/21 08:59 Last Admin: 05/31/21 08:29 Dose: 0.8 mg Documented by: Tramadol HCl (Tramadol Hcl 50 Mg Tablet) 25 - 50 mg PO Q4H PRN PRN Reason: Pain Stop: 06/13/21 06:53 Last Admin: 05/18/21 20:37 Dose: 50 mg Documented by: Umeclidinium/Vilanterol (Umeclidinium/Vilanterol 62.5/25mcg 7 Puffs/Inhaler) 1 puffs INH DAILY ZOHAIB Stop: 06/12/21 08:59 Last Admin: 05/31/21 08:30 Dose: 1 puffs Documented by:
[2021-05-31] MEDS: ATORVASTATIN 40 MG TAB PO SCH (20:43)
[2021-05-31] MEDS: MONTELUKAST SODIUM 10 MG TABLET PO SCH (20:43)
[2021-06-01] MEDS: hydrALAZINE 10 MG TAB PO SCH ×2 (08:22→21:12)
[2021-06-01] MEDS: amLODIPine BESYLATE 5 MG TAB PO SCH (08:22)
[2021-06-01] MEDS: LABETALOL HCL 100 MG TAB PO SCH ×2 (08:23→21:11)
[2021-06-01] MEDS: TAMSULOSIN HCL 0.4 MG CAP PO SCH (08:23)
[2021-06-01] MEDS: allopurinoL 100 MG TAB PO SCH (08:24)
[2021-06-01] MEDS: DULoxetine HCL 60 MG CAP PO SCH (08:24)
[2021-06-01] MEDS: lisinopril 40 MG TAB PO SCH (08:24)
[2021-06-01] MEDS: BUMETANIDE 1 MG TAB PO SCH (08:24)
[2021-06-01] MEDS: SERTRALINE HCL 100 MG TABLET PO SCH (08:24)
[2021-06-01] MEDS: GABAPENTIN 100 MG CAP PO SCH ×3 (08:25→21:11)
[2021-06-01] MEDS: PANTOprazole 40 MG TAB PO SCH (08:25)
[2021-06-01] MEDS: INSULIN GLARGINE SOLOSTAR 100 UNITS/ML 3 ML PEN SC SCH (08:25)
[2021-06-01] MEDS: FERROUS SULFATE 325 MG TAB PO SCH ×2 (08:26→17:26)
[2021-06-01] MEDS: ENOXAPARIN INJ 40 MG/0.4 ML SYR SQ SCH (08:27)
[2021-06-01] MEDS: UMECLIDINIUM/VILANTEROL 62.5/25MCG 7 PUFFS/INHALER INH SCH (08:27)
[2021-06-01] MEDS: POTASSIUM CHLORIDE CRTAB 20 MEQ TABCR PO SCH (08:29)
[2021-06-01] MEDS: INSULIN ASPART PER UNIT SC SCH ×4 (08:36→20:45)
[2021-06-01 10:07] LABS: Basophils # (auto) 0.02 K/uL (0-0.2); Basophils % (auto) 0.2 %; Eosinophils # (auto) 0.23 K/uL (0-0.5); Eosinophils % (auto) 2.7 %; Hematocrit (blood only) 32.8 % (42-52); Immature Granulocytes # (auto) 0.01 K/uL (0.00-0.02); Immature Granulocytes % (auto) 0.1 %; Lymphocytes # (auto) 1.55 K/uL (1.2-3.4); Lymphocytes % (auto) 18.4 %; Mean Corpuscular Hemoglobin 26.2 pg (25-34); Mean Corpuscular Hgb Conc 30.5 g/dL (32-36); Mean Corpuscular Volume 85.9 fL (80-100); Mean Platelet Volume 9.7 fL (7.4-10.4); Monocytes # (auto) 0.69 K/uL (0.11-0.59); Monocytes % (auto) 8.2 %; Neutrophils # (auto) 5.92 K/uL (1.4-6.5); Neutrophils % (auto) 70.4 %; Platelet Count 190 K/uL (130-400); RDW Coefficient of Variation 17.3 % (11.5-14.5); Red Blood Count 3.82 M/uL (4.7-6.1); White Blood Count 8.42 K/uL (4.8-10.8)
--- NOTE | 2021-06-01 17:28 | Hospitalist Progress Note ---
Date of Service June 01, 2021 Assessment & Plan (1) Asymptomatic hypertensive urgency: Plan: Hypertensive Urgency Presented with hypertensive urgency in the setting of noncompliance with antihypertensive medications. Head CT-no acute intracranial findings Continue amlodipine 10 mg daily, lisinopril 40 mg daily Coreg switched to labetalol 100 mg twice daily - labetalol occasionally getting held due to bradycardia Also on bumex BP labile Increase Hydralazine to 10mg BID -we will increase to 20 mg twice daily from 05/31/2021 Blood pressure remains on the upper side at 173/78 Blood pressure remains stable Rectal bleed Likely secondary to hemorrhoids No more episode Hemoglobin stable Unvaccinated for COVID 19 Patient received J & J vaccine on 05/16 Functional disability Refused Rehab placement last admission PT/OT Case management to help with discharge planning, placement pending Awaiting placement Right wrist pain hx of osteo, abscess and s/p surg. debridement in December w/ Dr. Stephens seems to be well healed, no WBC elevation, patient afebrile R wrist XR shows significant arthritis Ortho consulted - don't believe any infectious process, also don't recommend steroid at this time d/t hx of significant infection and s/p surgery Chronic joint pain History of arthritis ESR and uric acid elevated Was started on colchicine however was changed to prednisone due to possible interaction with beta-iglesia On prednisone 40 mg daily, day 3. Was on a very short prednisone taper during previous admission. May need prolonged taper this time. Will decrease to prednisone 20 mg daily starting tomorrow. Case discussed with OP Rheum who recommends tapering prednisone down to 5mg. Will need OP rheum eval. Prednisone now discontinued. Started on allopurinol 100mg daily x 1 week, 200mg daily x 1 wk and 300mg daily per rheum Chronic diastolic heart failure EF 60 to 65%, TTE 2020 Appears euvolemic Continue home diuretics CAD Appears stable, continue home medications COPD FRANCIS, CPAP intolerance Past tobacco use No signs of acute exacerbation Continue home inhalers DM II on oral medications Last HbA1c 6.18 April 2021 Continue insulin therapy while hospitalized BSG stable Chronic anemia Hb at baseline Continue iron replacement DVT Px: Lovenox SQ CODE STATUS: Full code Disposition: Case management following, placement pending, medically stable Family: Mr. Hamlet Cheung, contact # [phone]. Ms. Queen Jodilouis, contact #[phone]. Medically stable to be discharged Admission and Anticipated Discharge Date Admission Date: May 14, 2021 Subjective 05/31/2021 The patient was seen and examined in medical floor He remained stable and has been waiting to be placed Complaints of weakness and aches and pains in multiple joints 06/01/2021 The patient was seen and examined in medical floor He has rectal bleed yesterday likely secondary to hemorrhoid No more bleeding and the hemoglobin remains stable Review of Systems Review of Systems: All systems reviewed and are unremarkable except as noted below Musculoskeletal: Aches and pains but no acute arthritis in any joint Neurologic: Generalized weakness Physical Exam Physical Exam: Sitting at the edge of the bed without any acute distress Constitutional: well developed, well nourished and + morbidly obese; not ill appearing Eyes: PERRL, conjunctivae normal, anicteric sclerae ENMT: external ear and nose normal, oropharynx normal Neck: trachea midline, no thyromegaly Respiratory: no respiratory distress Auscultation: lungs clear to auscultation bilaterally and + diminished lung sounds Cardiovascular: Rate/Rhythm: regular rate and regular rhythm; not tachycardic Heart Sounds: normal S1 and normal S2; no murmur Extremities: + edema (Trace to 1+ edema bilaterally) Gastrointestinal (Abdomen): Inspection/Auscultation: normal bowel sounds; abdo men not distended Percussion/Palpation: abdomen soft; abdomen nontender Lymphatic: no cervical or axillary lymphadenopathy Results & Data Results & Data ([facility]) Vital Signs (Past 12 Hours) Vital Signs Temp Pulse Resp BP Pulse Ox 06/01/21 15:34 36.4 C L 65 16 134/75 96 06/01/21 07:31 36.5 C 61 16 165/77 H 92 Laboratory Results Short CBC 06/01/21 Range/Units 09:44 WBC 8.42 (4.8-10.8) K/uL Hgb 10.0 L (14.0-18.0) g/dL Hct 32.8 L (42-52) % Plt Count 190 (130-400) K/uL
[2021-06-01] MEDS: ATORVASTATIN 40 MG TAB PO SCH (21:12)
[2021-06-01] MEDS: MONTELUKAST SODIUM 10 MG TABLET PO SCH (21:12)
[2021-06-02] MEDS: TAMSULOSIN HCL 0.4 MG CAP PO SCH (08:26)
[2021-06-02] MEDS: FERROUS SULFATE 325 MG TAB PO SCH ×2 (08:26→18:01)
[2021-06-02] MEDS: GABAPENTIN 100 MG CAP PO SCH ×3 (08:26→21:35)
[2021-06-02] MEDS: amLODIPine BESYLATE 5 MG TAB PO SCH (08:26)
[2021-06-02] MEDS: POTASSIUM CHLORIDE CRTAB 20 MEQ TABCR PO SCH (08:26)
[2021-06-02] MEDS: LABETALOL HCL 100 MG TAB PO SCH ×2 (08:26→21:36)
[2021-06-02] MEDS: SERTRALINE HCL 100 MG TABLET PO SCH (08:26)
[2021-06-02] MEDS: PANTOprazole 40 MG TAB PO SCH (08:26)
[2021-06-02] MEDS: DULoxetine HCL 60 MG CAP PO SCH (08:26)
[2021-06-02] MEDS: hydrALAZINE 10 MG TAB PO SCH ×2 (08:26→21:35)
[2021-06-02] MEDS: lisinopril 40 MG TAB PO SCH (08:27)
[2021-06-02] MEDS: ENOXAPARIN INJ 40 MG/0.4 ML SYR SQ SCH (08:27)
[2021-06-02] MEDS: BUMETANIDE 1 MG TAB PO SCH (08:27)
[2021-06-02] MEDS: allopurinoL 100 MG TAB PO SCH (08:27)
[2021-06-02] MEDS: UMECLIDINIUM/VILANTEROL 62.5/25MCG 7 PUFFS/INHALER INH SCH (08:27)
[2021-06-02] MEDS: INSULIN ASPART PER UNIT SC SCH ×4 (09:01→21:51)
[2021-06-02] MEDS: INSULIN GLARGINE SOLOSTAR 100 UNITS/ML 3 ML PEN SC SCH (09:01)
[2021-06-02] MEDS: traMADol HCL 50 MG TABLET PO PRN ×3 (09:11→21:41)
--- NOTE | 2021-06-02 17:15 | Hospitalist Progress Note ---
Date of Service June 02, 2021 Assessment & Plan (1) Asymptomatic hypertensive urgency: Plan: Hypertensive Urgency Presented with hypertensive urgency in the setting of noncompliance with antihypertensive medications. Head CT-no acute intracranial findings Continue amlodipine 10 mg daily, lisinopril 40 mg daily Coreg switched to labetalol 100 mg twice daily - labetalol occasionally getting held due to bradycardia Also on bumex BP labile Increase Hydralazine to 10mg BID -we will increase to 20 mg twice daily from 05/31/2021 Blood pressure remains on the upper side at 173/78 Blood pressure remains stable Rectal bleed Likely secondary to hemorrhoids No more episode Hemoglobin stable No more bleeding Unvaccinated for COVID 19 Patient received J & J vaccine on 05/16 Functional disability Refused Rehab placement last admission PT/OT Case management to help with discharge planning, placement pending Awaiting placement Right wrist pain hx of osteo, abscess and s/p surg. debridement in December w/ Dr. Stephens seems to be well healed, no WBC elevation, patient afebrile R wrist XR shows significant arthritis Ortho consulted - don't believe any infectious process, also don't recommend steroid at this time d/t hx of significant infection and s/p surgery Chronic joint pain History of arthritis ESR and uric acid elevated Was started on colchicine however was changed to prednisone due to possible interaction with beta-iglesia On prednisone 40 mg daily, day 3. Was on a very short prednisone taper during previous admission. May need prolonged taper this time. Will decrease to prednisone 20 mg daily starting tomorrow. Case discussed with OP Rheum who recommends tapering prednisone down to 5mg. Will need OP rheum eval. Prednisone now discontinued. Started on allopurinol 100mg daily x 1 week, 200mg daily x 1 wk and 300mg daily per rheum Has been getting Ultram 50 mg every 4 hourly as needed for pain Chronic diastolic heart failure EF 60 to 65%, TTE 2020 Appears euvolemic Continue home diuretics CAD Appears stable, continue home medications COPD FRANCIS, CPAP intolerance Past tobacco use No signs of acute exacerbation Continue home inhalers DM II on oral medications Last HbA1c 6.18 April 2021 Continue insulin therapy while hospitalized BSG stable Chronic anemia Hb at baseline Continue iron replacement DVT Px: Lovenox SQ CODE STATUS: Full code Disposition: Case management following, placement pending, medically stable Family: Mr. Hamlet Cheung, contact # [phone]. Ms. Bernice Mathias, contact #[phone]. Medically stable to be discharged Admission and Anticipated Discharge Date Admission Date: May 14, 2021 Subjective 05/31/2021 The patient was seen and examined in medical floor He remained stable and has been waiting to be placed Complaints of weakness and aches and pains in multiple joints 06/01/2021 The patient was seen and examined in medical floor He has rectal bleed yesterday likely secondary to hemorrhoid No more bleeding and the hemoglobin remains stable 06/02/2021 The patient was seen and examined in medical floor He complains to have weakness and pain in multiple joints We will increase his Ultram to 50 mg every 6 hourly as needed Review of Systems Review of Systems: All systems reviewed and are unremarkable except as noted below Musculoskeletal: Aches and pains but no acute arthritis in any joint Neurologic: Generalized weakness Physical Exam Physical Exam: Sitting at the edge of the bed without any acute distress Constitutional: well developed, well nourished and + morbidly obese; not ill appearing Eyes: PERRL, conjunctivae normal, anicteric sclerae ENMT: external ear and nose normal, oropharynx normal Neck: trachea midline, no thyromegaly Respiratory: no respiratory distress Auscultation: lungs clear to auscultation bilaterally and + diminished lung sounds Cardiovascular: Rate/Rhythm: regular rate and regular rhythm; not tachycardic Heart Sounds: normal S1 and normal S2; no murmur Extremities: + edema (Trace to 1+ edema bilaterally) Gastrointestinal (Abdomen): Inspection/Auscultation: normal bowel sounds; abdomen not distended Percussion/Palpation: abdomen soft; abdomen nontender Lymphatic: no cervical or axillary lymphadenopathy Results & Data Results & Data ([facility]) Vital Signs (Past 12 Hours) Vital Signs Temp Pulse Resp BP Pulse Ox 06/02/21 15:35 36.5 C 57 L 18 156/72 H 93 06/02/21 07:35 36.8 C 57 L 18 159/72 H 94
[2021-06-02] MEDS: MONTELUKAST SODIUM 10 MG TABLET PO SCH (21:36)
[2021-06-02] MEDS: ATORVASTATIN 40 MG TAB PO SCH (21:36)
[2021-06-02] MEDS: ACETAMINOPHEN 325 MG TAB PO PRN (21:40)
[2021-06-03] MEDS: BUMETANIDE 1 MG TAB PO SCH (07:43)
[2021-06-03] MEDS: LABETALOL HCL 100 MG TAB PO SCH ×2 (07:44→20:15)
[2021-06-03] MEDS: hydrALAZINE 10 MG TAB PO SCH ×2 (07:45→20:15)
[2021-06-03] MEDS: amLODIPine BESYLATE 5 MG TAB PO SCH (07:46)
[2021-06-03] MEDS: GABAPENTIN 100 MG CAP PO SCH ×3 (07:46→20:15)
[2021-06-03] MEDS: lisinopril 40 MG TAB PO SCH (07:46)
[2021-06-03] MEDS: FERROUS SULFATE 325 MG TAB PO SCH ×2 (07:47→16:50)
[2021-06-03] MEDS: allopurinoL 100 MG TAB PO SCH (07:47)
[2021-06-03] MEDS: PANTOprazole 40 MG TAB PO SCH (07:47)
[2021-06-03] MEDS: TAMSULOSIN HCL 0.4 MG CAP PO SCH (07:47)
[2021-06-03] MEDS: SERTRALINE HCL 100 MG TABLET PO SCH (07:48)
[2021-06-03] MEDS: ENOXAPARIN INJ 40 MG/0.4 ML SYR SQ SCH (07:49)
[2021-06-03] MEDS: POTASSIUM CHLORIDE CRTAB 20 MEQ TABCR PO SCH (07:53)
[2021-06-03] MEDS: INSULIN ASPART PER UNIT SC SCH ×4 (09:14→20:53)
[2021-06-03] MEDS: INSULIN GLARGINE SOLOSTAR 100 UNITS/ML 3 ML PEN SC SCH (09:15)
[2021-06-03] MEDS: DULoxetine HCL 60 MG CAP PO SCH (09:17)
[2021-06-03] MEDS: UMECLIDINIUM/VILANTEROL 62.5/25MCG 7 PUFFS/INHALER INH SCH (09:17)
[2021-06-03] MEDS: ACETAMINOPHEN 325 MG TAB PO PRN (16:50)
--- NOTE | 2021-06-03 18:06 | Hospitalist Progress Note ---
Date of Service June 03, 2021 Assessment & Plan (1) Asymptomatic hypertensive urgency: Plan: Hypertensive Urgency Presented with hypertensive urgency in the setting of noncompliance with antihypertensive medications. Head CT-no acute intracranial findings Continue amlodipine 10 mg daily, lisinopril 40 mg daily Coreg switched to labetalol 100 mg twice daily - labetalol occasionally getting held due to bradycardia Also on bumex BP labile Increase Hydralazine to 10mg BID -we will increase to 20 mg twice daily from 05/31/2021 Blood pressure remains on the upper side at 173/78 Blood pressure remains stable Rectal bleed Likely secondary to hemorrhoids No more episode Hemoglobin stable No more bleeding Unvaccinated for COVID 19 Patient received J & J vaccine on 05/16 Functional disability Refused Rehab placement last admission PT/OT Case management to help with discharge planning, placement pending Awaiting placement Right wrist pain hx of osteo, abscess and s/p surg. debridement in December w/ Dr. Stephens seems to be well healed, no WBC elevation, patient afebrile R wrist XR shows significant arthritis Ortho consulted - don't believe any infectious process, also don't recommend steroid at this time d/t hx of significant infection and s/p surgery Chronic joint pain History of arthritis ESR and uric acid elevated Was started on colchicine however was changed to prednisone due to possible interaction with beta-iglesia On prednisone 40 mg daily, day 3. Was on a very short prednisone taper during previous admission. May need prolonged taper this time. Will decrease to prednisone 20 mg daily starting tomorrow. Case discussed with OP Rheum who recommends tapering prednisone down to 5mg. Will need OP rheum eval. Prednisone now discontinued. Started on allopurinol 100mg daily x 1 week, 200mg daily x 1 wk and 300mg daily per rheum Has been getting Ultram 50 mg every 4 hourly as needed for pain The pain has been controlled Chronic diastolic heart failure EF 60 to 65%, TTE 2020 Appears euvolemic Continue home diuretics CAD Appears stable, continue home medications COPD FRANCIS, CPAP intolerance Past tobacco use No signs of acute exacerbation Continue home inhalers DM II on oral medications Last HbA1c 6.18 April 2021 Continue insulin therapy while hospitalized BSG stable Chronic anemia Hb at baseline Continue iron replacement DVT Px: Lovenox SQ CODE STATUS: Full code Disposition: Case management following, placement pending, medically stable Family: Mr. Hamlet Cheung, contact # [phone]. Ms. Bernice Mathias, contact #[phone]. Medically stable to be discharged Awaiting placement Admission and Anticipated Discharge Date Admission Date: May 14, 2021 Subjective 05/31/2021 The patient was seen and examined in medical floor He remained stable and has been waiting to be placed Complaints of weakness and aches and pains in multiple joints 06/01/2021 The patient was seen and examined in medical floor He has rectal bleed yesterday likely secondary to hemorrhoid No more bleeding and the hemoglobin remains stable 06/02/2021 The patient was seen and examined in medical floor He complains to have weakness and pain in multiple joints We will increase his Ultram to 50 mg every 6 hourly as needed June 03, 2021 The patient was seen and examined in medical floor He has been feeling much better today and the pain seems to be reasonably controlled Review of Systems Review of Systems: All systems reviewed and are unremarkable except as noted below Musculoskeletal: Aches and pains but no acute arthritis in any joint Neurologic: Generalized weakness Physical Exam Physical Exam: Sitting at the edge of the bed without any acute distress Constitutional: well developed, well nourished and + morbidly obese; not ill appearing Eyes: PERRL, conjunctivae normal, anicteric sclerae ENMT: external ear and nose normal, oropharynx normal Neck: trachea midline, no thyromegaly Respiratory: no respiratory distress Auscultation: lungs clear to auscult ation bilaterally and + diminished lung sounds Cardiovascular: Rate/Rhythm: regular rate and regular rhythm; not tachycardic Heart Sounds: normal S1 and normal S2; no murmur Extremities: + edema (Trace to 1+ edema bilaterally) Gastrointestinal (Abdomen): Inspection/Auscultation: normal bowel sounds; abdomen not distended Percussion/Palpation: abdomen soft; abdomen nontender Musculoskeletal: Complains of pain at the back and left ankle but does not have any acute arthritis Neurologic: Alert, awake and oriented x3. No focal sensory and motor deficit appreciated Lymphatic: no cervical or axillary lymphadenopathy Results & Data Results & Data ([facility]) Vital Signs (Past 12 Hours) Vital Signs Temp Pulse Resp BP Pulse Ox 06/03/21 15:02 36.4 C L 62 16 137/72 92 06/03/21 07:19 36.3 C L 54 L 16 134/72 95 Medications Administered Current Inpatient Medications Acetaminophen (Acetaminophen 325 Mg Tab) 650 mg PO Q4H PRN PRN Reason: Pain or Fever Stop: 06/12/21 03:09 Last Admin: 06/03/21 16:50 Dose: 650 mg Documented by: Allopurinol (Allopurinol 100 Mg Tab) 200 mg PO DAILY [facility]; Taper Stop: 07/07/21 08:59 Last Admin: 06/03/21 07:47 Dose: 200 mg Documented by: Amlodipine Besylate (Amlodipine Besylate 5 Mg Tab) 10 mg PO DAILY [facility] Stop: 06/12/21 08:59 Last Admin: 06/03/21 07:46 Dose: 10 mg Documented by: Atorvastatin Calcium (Atorvastatin 40 Mg Tab) 40 mg PO HS [facility] Stop: 06/12/21 20:59 Last Admin: 06/02/21 21:36 Dose: 40 mg Documented by: Bumetanide (Bumetanide 1 Mg Tab) 1 mg PO DAILY [facility] Stop: 06/14/21 08:59 Last Admin: 06/03/21 07:43 Dose: 1 mg Documented by: Dextrose (Dextrose 50% 50 Ml Syringe) 25 - 50 ml IV UD PRN; Protocol PRN Reason: Hypoglycemia Protocol Stop: 06/12/21 03:09 Docusate Sodium (Docusate Sodium 100 Mg Cap) 100 mg PO BID PRN PRN Reason: Constipation Stop: 06/12/21 03:09 Duloxetine HCl (Duloxetine Hcl 60 Mg Cap) 60 mg PO DAILY [facility] Stop: 06/12/21 08:59 Last Admin: 06/03/21 09:17 Dose: 60 mg Documented by: Enoxaparin Sodium (Enoxaparin Inj 40 Mg/0.4 Ml Syr) 40 mg SQ QAM [facility] Stop: 06/12/21 08:59 Last Admin: 06/03/21 07:49 Dose: 40 mg Documented by: Ferrous Sulfate (Ferrous Sulfate 325 Mg Tab) 325 mg PO BIDM [facility] Stop: 06/12/21 07:59 Last Admin: 06/03/21 16:50 Dose: 325 mg Documented by: Gabapentin (Gabapentin 100 Mg Cap) 200 mg PO TID [facility] Stop: 06/13/21 20:59 Last Admin: 06/03/21 12:44 Dose: 200 mg Documented by: Glucagon (Glucagon For Inj 1 Mg Vial) 1 mg SQ UD PRN; Protocol PRN Reason: Hypoglycemia Protocol Stop: 06/12/21 03:09 Glucose (Glucose 10 Tabs/Tube) 4 - 8 tabs PO UD PRN; Protocol PRN Reason: Hypoglycemia Protocol Stop: 06/12/21 03:09 Glucose (Glucose 40% Gel 15 Gm Tube) 15 - 30 gm PO UD PRN; Protocol PRN Reason: Hypoglycemia Protocol Stop: 06/12/21 03:09 Hydralazine HCl (Hydralazine 10 Mg Tab) 20 mg PO BID [facility] Stop: 06/30/21 20:59 Last Admin: 06/03/21 07:45 Dose: 20 mg Documented by: Promethazine HCl 12.5 mg/ (Sodium Chloride) 50.5 mls @ 202 mls/hr IV Q6H PRN PRN Reason: Nausea And Vomiting Stop: 06/12/21 03:28 Last Infusion: 05/13/21 04:10 Dose: Infused Documented by: Insulin Aspart (Insulin Aspart Per Unit) 0 units SC ACHS [facility] Stop: 06/26/21 11:59 Last Admin: 06/03/21 18:01 Dose: 2 units Documented by: Insulin Glargine (Insulin Glargine Solostar 100 Units/Ml 3 Ml Pen) 15 units SC DAILY [facility] Stop: 06/24/21 08:59 Last Admin: 06/03/21 09:15 Dose: 15 units Documented by: Labetalol HCl (Labetalol Hcl 100 Mg Tab) 100 mg PO BID [facility] Stop: 06/16/21 08:59 Last Admin: 06/03/21 07:44 Dose: Not Given Documented by: Lisinopril (Lisinopril 40 Mg Tab) 40 mg PO DAILY [facility] Stop: 06/15/21 08:59 Last Admin: 06/03/21 07:46 Dose: 40 mg Documented by: Miscellaneous (Carbohydrates For Hypoglycemia ) 15 - 30 gm PO UD PRN PRN Reason: Hypoglycemia Protocol Stop: 06/12/21 03:09 Montelukast Sodium (Montelukast Sodium 10 Mg Tablet) 10 mg PO HS [facility] Stop: 06/12/21 20:59 Last Admin: 06/02/21 21:36 Dose: 10 mg Documented by: Olanzapine (Olanzapine 10 Mg/2.1 Ml Sdv) 5 mg IM Q6H PRN PRN Reason: Anxiety/Agitation Stop: 06/12/21 02:11 Pantoprazole Sodium (Pantoprazole 40 Mg Tab) 40 mg PO DAILY [facility] Stop: 06/12/21 08:59 Last Admin: 06/03/21 07:47 Dose: 40 mg Documented by: Polyethylene Glycol (Polyethylene (Miralax) 17 Gm Pack) 17 gm PO DAILY PRN PRN Reason: Constipation Stop: 06/12/21 03:09 Potassium Chloride (Potassium Chloride Crtab 20 Meq Tabcr) 20 meq PO DAILY [facility] Stop: 06/14/21 08:59 Last Admin: 06/03/21 07:53 Dose: 20 meq Documented by: Sertraline HCl (Sertraline Hcl 100 Mg Tablet) 100 mg PO DAILY [facility] Stop: 06/12/21 08:59 Last Admin: 06/03/21 07:48 Dose: 100 mg Documented by: Tamsulosin HCl (Tamsulosin Hcl 0.4 Mg Cap) 0.8 mg PO DAILY [facility] Stop: 06/12/21 08:59 Last Admin: 06/03/21 07:47 Dose: 0.8 mg Documented by: Tramadol HCl (Tramadol Hcl 50 Mg Tablet) 50 mg PO Q4H PRN PRN Reason: Pain Stop: 06/13/21 06:53 Last Admin: 06/02/21 21:41 Dose: 50 mg Documented by: Umeclidinium/Vilanterol (Umeclidinium/Vilanterol 62.5/25mcg 7 Puffs/Inhaler) 1 puffs INH DAILY [facility] Stop: 06/12/21 08:59 Last Admin: 06/03/21 09:17 Dose: 1 puffs Documented by:
[2021-06-03] MEDS: ATORVASTATIN 40 MG TAB PO SCH (20:14)
[2021-06-03] MEDS: MONTELUKAST SODIUM 10 MG TABLET PO SCH (20:15)
[2021-06-04] MEDS: UMECLIDINIUM/VILANTEROL 62.5/25MCG 7 PUFFS/INHALER INH SCH (08:53)
[2021-06-04] MEDS: PANTOprazole 40 MG TAB PO SCH (08:54)
[2021-06-04] MEDS: GABAPENTIN 100 MG CAP PO SCH ×3 (08:54→21:08)
[2021-06-04] MEDS: hydrALAZINE 10 MG TAB PO SCH ×2 (08:54→21:08)
[2021-06-04] MEDS: LABETALOL HCL 100 MG TAB PO SCH ×2 (08:54→21:08)
[2021-06-04] MEDS: amLODIPine BESYLATE 5 MG TAB PO SCH (08:54)
[2021-06-04] MEDS: BUMETANIDE 1 MG TAB PO SCH (08:54)
[2021-06-04] MEDS: SERTRALINE HCL 100 MG TABLET PO SCH (08:54)
[2021-06-04] MEDS: lisinopril 40 MG TAB PO SCH (08:54)
[2021-06-04] MEDS: DULoxetine HCL 60 MG CAP PO SCH (08:55)
[2021-06-04] MEDS: allopurinoL 100 MG TAB PO SCH (08:55)
[2021-06-04] MEDS: FERROUS SULFATE 325 MG TAB PO SCH ×2 (08:55→17:25)
[2021-06-04] MEDS: TAMSULOSIN HCL 0.4 MG CAP PO SCH (08:56)
[2021-06-04] MEDS: INSULIN GLARGINE SOLOSTAR 100 UNITS/ML 3 ML PEN SC SCH (08:56)
[2021-06-04] MEDS: ENOXAPARIN INJ 40 MG/0.4 ML SYR SQ SCH (08:56)
[2021-06-04] MEDS: INSULIN ASPART PER UNIT SC SCH ×4 (09:00→21:10)
[2021-06-04] MEDS: POTASSIUM CHLORIDE CRTAB 20 MEQ TABCR PO SCH (09:03)
--- NOTE | 2021-06-04 16:24 | Hospitalist Progress Note ---
Date of Service June 04, 2021 Assessment & Plan (1) Asymptomatic hypertensive urgency: Plan: Hypertensive Urgency Presented with hypertensive urgency in the setting of noncompliance with antihypertensive medications. Head CT-no acute intracranial findings Continue amlodipine 10 mg daily, lisinopril 40 mg daily Coreg switched to labetalol 100 mg twice daily - labetalol occasionally getting held due to bradycardia Also on bumex BP labile Increase Hydralazine to 10mg BID -we will increase to 20 mg twice daily from 05/31/2021 Blood pressure remains on the upper side at 173/78 Blood pressure remains stable Denies any more symptoms and remains stable to be transferred Rectal bleed Likely secondary to hemorrhoids No more episode Hemoglobin stable No more bleeding Unvaccinated for COVID 19 Patient received J & J vaccine on 05/16 Functional disability Refused Rehab placement last admission PT/OT Case management to help with discharge planning, placement pending Awaiting placement Right wrist pain hx of osteo, abscess and s/p surg. debridement in December w/ Dr. Stephens seems to be well healed, no WBC elevation, patient afebrile R wrist XR shows significant arthritis Ortho consulted - don't believe any infectious process, also don't recommend steroid at this time d/t hx of significant infection and s/p surgery No more pain Chronic joint pain History of arthritis ESR and uric acid elevated Was started on colchicine however was changed to prednisone due to possible interaction with beta-iglesia On prednisone 40 mg daily, day 3. Was on a very short prednisone taper during previous admission. May need prolonged taper this time. Will decrease to prednisone 20 mg daily starting tomorrow. Case discussed with OP Rheum who recommends tapering prednisone down to 5mg. Will need OP rheum eval. Prednisone now discontinued. Started on allopurinol 100mg daily x 1 week, 200mg daily x 1 wk and 300mg daily per rheum Has been getting Ultram 50 mg every 4 hourly as needed for pain The pain has been controlled Chronic diastolic heart failure EF 60 to 65%, TTE 2020 Appears euvolemic Continue home diuretics CAD Appears stable, continue home medications COPD FRANCIS, CPAP intolerance Past tobacco use No signs of acute exacerbation Continue home inhalers DM II on oral medications Last HbA1c 6.18 April 2021 Continue insulin therapy while hospitalized BSG stable Chronic anemia Hb at baseline Continue iron replacement DVT Px: Lovenox SQ CODE STATUS: Full code Disposition: Case management following, placement pending, medically stable Family: Mr. Hamlet Cheung, contact # [phone]. Ms. Bernice Mathias, contact #[phone]. Medically stable to be discharged Awaiting placement Admission and Anticipated Discharge Date Admission Date: May 14, 2021 Subjective 05/31/2021 The patient was seen and examined in medical floor He remained stable and has been waiting to be placed Complaints of weakness and aches and pains in multiple joints 06/01/2021 The patient was seen and examined in medical floor He has rectal bleed yesterday likely secondary to hemorrhoid No more bleeding and the hemoglobin remains stable 06/02/2021 The patient was seen and examined in medical floor He complains to have weakness and pain in multiple joints We will increase his Ultram to 50 mg every 6 hourly as needed June 03, 2021 The patient was seen and examined in medical floor He has been feeling much better today and the pain seems to be reasonably controlled 06/04/2021 The patient was seen and examined in medical floor He has been stable and denies any significant symptoms Review of Systems Review of Systems: All systems reviewed and are unremarkable except as noted below Musculoskeletal: Aches and pains but no acute arthritis in any joint Neurologic: Generalized weakness Physical Exam Physical Exam: Sitting at the edge of the bed without any acute distress Constitutional: well developed, well nourished and + morbidly obese; not ill appearing Eyes: PERRL, conjunctivae normal, anicteric sclerae ENMT: external ear and nose normal, oropharynx normal Neck: trachea midline, no thyromegaly Respiratory: no respiratory distress Auscultation: lungs clear to auscultation bilaterally and + diminished lung sounds Cardiovascular: Rate/Rhythm: regular rate and regular rhythm; not tachycardic Heart Sounds: normal S1 and normal S2; no murmur Extremities: + edema (Trace to 1+ edema bilaterally) Gastrointestinal (Abdomen): Inspection/Auscultation: normal bowel sounds; abdomen not distended Percussion/Palpation: abdomen soft; abdomen nontender Lymphatic: no cervical or axillary lymphadenopathy Results & Data Results & Data ([facility]) Vital Signs (Past 12 Hours) Vital Signs Temp Pulse Resp BP BP Pulse Ox 06/04/21 15:48 36.7 C 60 16 132/65 95 06/04/21 07:26 36.4 C L 60 16 146/82 H 92 Diagnostic Findings Current Inpatient Medications Acetaminophen (Acetaminophen 325 Mg Tab) 650 mg PO Q4H PRN PRN Reason: Pain or Fever Stop: 06/12/21 03:09 Last Admin: 06/03/21 16:50 Dose: 650 mg Documented by: Allopurinol (Allopurinol 100 Mg Tab) 200 mg PO DAILY [facility]OHA[facility]; Taper Stop: 07/07/21 08:59 Last Admin: 06/04/21 08:55 Dose: 200 mg Documented by: Amlodipine Besylate (Amlodipine Besylate 5 Mg Tab) 10 mg PO DAILY [facility] Stop: 06/12/21 08:59 Last Admin: 06/04/21 08:54 Dose: 10 mg Documented by: Atorvastatin Calcium (Atorvastatin 40 Mg Tab) 40 mg PO HS [facility] Stop: 06/12/21 20:59 Last Admin: 06/03/21 20:14 Dose: 40 mg Documented by: Bumetanide (Bumetanide 1 Mg Tab) 1 mg PO DAILY [facility] Stop: 06/14/21 08:59 Last Admin: 06/04/21 08:54 Dose: 1 mg Documented by: Dextrose (Dextrose 50% 50 Ml Syringe) 25 - 50 ml IV UD PRN; Protocol PRN Reason: Hypoglycemia Protocol Stop: 06/12/21 03:09 Docusate Sodium (Docusate Sodium 100 Mg Cap) 100 mg PO BID PRN PRN Reason: Constipation Stop: 06/12/21 03:09 Duloxetine HCl (Duloxetine Hcl 60 Mg Cap) 60 mg PO DAILY [facility] Stop: 06/12/21 08:59 Last Admin: 06/04/21 08:55 Dose: 60 mg Documented by: Enoxaparin Sodium (Enoxaparin Inj 40 Mg/0.4 Ml Syr) 40 mg SQ QAM [facility] Stop: 06/12/21 08:59 Last Admin: 06/04/21 08:56 Dose: 40 mg Documented by: Ferrous Sulfate (Ferrous Sulfate 325 Mg Tab) 325 mg PO BIDM [facility] Stop: 06/12/21 07:59 Last Admin: 06/04/21 08:55 Dose: 325 mg Documented by: Gabapentin (Gabapentin 100 Mg Cap) 200 mg PO TID [facility] Stop: 06/13/21 20:59 Last Admin: 06/04/21 14:11 Dose: 200 mg Documented by: Glucagon (Glucagon For Inj 1 Mg Vial) 1 mg SQ UD PRN; Protocol PRN Reason: Hypoglycemia Protocol Stop: 06/12/21 03:09 Glucose (Glucose 10 Tabs/Tube) 4 - 8 tabs PO UD PRN; Protocol PRN Reason: Hypoglycemia Protocol Stop: 06/12/21 03:09 Glucose (Glucose 40% Gel 15 Gm Tube) 15 - 30 gm PO UD PRN; Protocol PRN Reason: Hypoglycemia Protocol Stop: 06/12/21 03:09 Hydralazine HCl (Hydralazine 10 Mg Tab) 20 mg PO BID [facility] Stop: 06/30/21 20:59 Last Admin: 06/04/21 08:54 Dose: 20 mg Documented by: Promethazine HCl 12.5 mg/ (Sodium Chloride) 50.5 mls @ 202 mls/hr IV Q6H PRN PRN Reason: Nausea And Vomiting Stop: 06/12/21 03:28 Last Infusion: 05/13/21 04:10 Dose: Infused Documented by: Insulin Aspart (Insulin Aspart Per Unit) 0 units SC ACHS [facility] Stop: 06/26/21 11:59 Last Admin: 06/04/21 12:16 Dose: 3 units Documented by: Insulin Glargine (Insulin Glargine Solostar 100 Units/Ml 3 Ml Pen) 15 units SC DAILY [facility] Stop: 06/24/21 08:59 Last Admin: 06/04/21 08:56 Dose: 15 units Documented by: Labetalol HCl (Labetalol Hcl 100 Mg Tab) 100 mg PO BID [facility] Stop: 06/16/21 08:59 Last Admin: 06/04/21 08:54 Dose: 100 mg Documented by: Lisinopril (Lisinopril 40 Mg Tab) 40 mg PO DAILY [facility] Stop: 06/15/21 08:59 Last Admin: 06/04/21 08:54 Dose: 40 mg Documented by: Miscellaneous (Carbohydrates For Hypoglycemia ) 15 - 30 gm PO UD PRN PRN Reason: Hypoglycemia Protocol Stop: 06/12/21 03:09 Montelukast Sodium (Montelukast Sodium 10 Mg Tablet) 10 mg PO HS [facility] Stop: 06/12/21 20:59 Last Admin: 06/03/21 20:15 Dose: 10 mg Documented by: Olanzapine (Olanzapine 10 Mg/2.1 Ml Sdv) 5 mg IM Q6H PRN PRN Reason: Anxiety/Agitation Stop: 06/12/21 02:11 Pantoprazole Sodium (Pantoprazole 40 Mg Tab) 40 mg PO DAILY [facility] Stop: 06/12/21 08:59 Last Admin: 06/04/21 08:54 Dose: 40 mg Documented by: Polyethylene Glycol (Polyethylene (Miralax) 17 Gm Pack) 17 gm PO DAILY PRN PRN Reason: Constipation Stop: 06/12/21 03:09 Potassium Chloride (Potassium Chloride Crtab 20 Meq Tabcr) 20 meq PO DAILY [facility] Stop: 06/14/21 08:59 Last Admin: 06/04/21 09:03 Dose: 20 meq Documented by: Sertraline HCl (Sertraline Hcl 100 Mg Tablet) 100 mg PO DAILY [facility] Stop: 06/12/21 08:59 Last Admin: 06/04/21 08:54 Dose: 100 mg Documented by: Tamsulosin HCl (Tamsulosin Hcl 0.4 Mg Cap) 0.8 mg PO DAILY [facility] Stop: 06/12/21 08:59 Last Admin: 06/04/21 08:56 Dose: 0.8 mg Documented by: Tramadol HCl (Tramadol Hcl 50 Mg Tablet) 50 mg PO Q4H PRN PRN Reason: Pain Stop: 06/13/21 06:53 Last Admin: 06/02/21 21:41 Dose: 50 mg Documented by: Umeclidinium/Vilanterol (Umeclidinium/Vilanterol 62.5/25mcg 7 Puffs/Inhaler) 1 puffs INH DAILY [facility] Stop: 06/12/21 08:59 Last Admin: 06/04/21 08:53 Dose: 1 puffs Documented by:
[2021-06-04] MEDS: PROMETHAZINE HCL 12.5 MG in SODIUM CHLORIDE 0.9% 50 ML IV PRN (21:03)
[2021-06-04] MEDS: ACETAMINOPHEN 325 MG TAB PO PRN (21:07)
[2021-06-04] MEDS: traMADol HCL 50 MG TABLET PO PRN (21:08)
[2021-06-04] MEDS: ATORVASTATIN 40 MG TAB PO SCH (21:09)
[2021-06-04] MEDS: MONTELUKAST SODIUM 10 MG TABLET PO SCH (21:10)
[2021-06-05] MEDS: INSULIN GLARGINE SOLOSTAR 100 UNITS/ML 3 ML PEN SC SCH (09:12)
[2021-06-05] MEDS: ENOXAPARIN INJ 40 MG/0.4 ML SYR SQ SCH (09:12)
[2021-06-05] MEDS: UMECLIDINIUM/VILANTEROL 62.5/25MCG 7 PUFFS/INHALER INH SCH (09:12)
[2021-06-05] MEDS: TAMSULOSIN HCL 0.4 MG CAP PO SCH (09:13)
[2021-06-05] MEDS: SERTRALINE HCL 100 MG TABLET PO SCH (09:13)
[2021-06-05] MEDS: GABAPENTIN 100 MG CAP PO SCH ×3 (09:13→19:52)
[2021-06-05] MEDS: lisinopril 40 MG TAB PO SCH (09:13)
[2021-06-05] MEDS: hydrALAZINE 10 MG TAB PO SCH ×2 (09:13→19:52)
[2021-06-05] MEDS: DULoxetine HCL 60 MG CAP PO SCH (09:13)
[2021-06-05] MEDS: amLODIPine BESYLATE 5 MG TAB PO SCH (09:13)
[2021-06-05] MEDS: LABETALOL HCL 100 MG TAB PO SCH ×2 (09:13→19:52)
[2021-06-05] MEDS: PANTOprazole 40 MG TAB PO SCH (09:13)
[2021-06-05] MEDS: FERROUS SULFATE 325 MG TAB PO SCH ×2 (09:14→17:33)
[2021-06-05] MEDS: allopurinoL 100 MG TAB PO SCH (09:14)
[2021-06-05] MEDS: BUMETANIDE 1 MG TAB PO SCH (09:14)
[2021-06-05] MEDS: INSULIN ASPART PER UNIT SC SCH ×4 (09:17→20:56)
[2021-06-05] MEDS: traMADol HCL 50 MG TABLET PO PRN ×3 (09:21→19:55)
[2021-06-05] MEDS: POTASSIUM CHLORIDE CRTAB 20 MEQ TABCR PO SCH (09:21)
--- NOTE | 2021-06-05 19:08 | Hospitalist Progress Note ---
Date of Service June 05, 2021 Assessment & Plan (1) Asymptomatic hypertensive urgency: Plan: Hypertensive Urgency Presented with hypertensive urgency in the setting of noncompliance with antihypertensive medications. Head CT-no acute intracranial findings Continue amlodipine 10 mg daily, lisinopril 40 mg daily Coreg switched to labetalol 100 mg twice daily - labetalol occasionally getting held due to bradycardia Also on bumex BP labile Increase Hydralazine to 10mg BID -we will increase to 20 mg twice daily from 05/31/2021 Blood pressure remains on the upper side at 173/78 Blood pressure remains stable Denies any more symptoms and remains stable to be transferred Awaiting to be placed Rectal bleed Likely secondary to hemorrhoids No more episode Hemoglobin stable No more bleeding Unvaccinated for COVID 19 Patient received J & J vaccine on 05/16 Functional disability Refused Rehab placement last admission PT/OT Case management to help with discharge planning, placement pending Awaiting placement Right wrist pain hx of osteo, abscess and s/p surg. debridement in December w/ Dr. Stephens seems to be well healed, no WBC elevation, patient afebrile R wrist XR shows significant arthritis Ortho consulted - don't believe any infectious process, also don't recommend steroid at this time d/t hx of significant infection and s/p surgery Minimal pain on both wrists Has been using right wrist brace Chronic joint pain History of arthritis ESR and uric acid elevated Was started on colchicine however was changed to prednisone due to possible interaction with beta-iglesia On prednisone 40 mg daily, day 3. Was on a very short prednisone taper during previous admission. May need prolonged taper this time. Will decrease to prednisone 20 mg daily starting tomorrow. Case discussed with OP Rheum who recommends tapering prednisone down to 5mg. Will need OP rheum eval. Prednisone now discontinued. Started on allopurinol 100mg daily x 1 week, 200mg daily x 1 wk and 300mg daily per rheum Has been getting Ultram 50 mg every 4 hourly as needed for pain Has more back pain-we will give local diclofenac sodium Continue Ultram Chronic diastolic heart failure EF 60 to 65%, TTE 2020 Appears euvolemic Continue home diuretics CAD Appears stable, continue home medications COPD FRANCIS, CPAP intolerance Past tobacco use No signs of acute exacerbation Continue home inhalers DM II on oral medications Last HbA1c 6.18 April 2021 Continue insulin therapy while hospitalized BSG stable Chronic anemia Hb at baseline Continue iron replacement DVT Px: Lovenox SQ CODE STATUS: Full code Disposition: Case management following, placement pending, medically stable Family: Mr. Hamlet Cheung, contact # [phone]. Ms. Bernice Mathias, contact #[phone]. Medically stable to be discharged Awaiting placement Admission and Anticipated Discharge Date Admission Date: May 14, 2021 Subjective 05/31/2021 The patient was seen and examined in medical floor He remained stable and has been waiting to be placed Complaints of weakness and aches and pains in multiple joints 06/01/2021 The patient was seen and examined in medical floor He has rectal bleed yesterday likely secondary to hemorrhoid No more bleeding and the hemoglobin remains stable 06/02/2021 The patient was seen and examined in medical floor He complains to have weakness and pain in multiple joints We will increase his Ultram to 50 mg every 6 hourly as needed June 03, 2021 The patient was seen and examined in medical floor He has been feeling much better today and the pain seems to be reasonably controlled 06/04/2021 The patient was seen and examined in medical floor He has been stable and denies any significant symptoms 06/05/2021 The patient was seen and examined in medical floor He has been complaining of back pain and bilateral wrist pain Review of Systems Review of Systems: All systems reviewed and are unremarkable except as noted below Musculoskeletal: Aches and pains but no acute arthritis in any joint Neurologic: Generalized weakness Physical Exam Physical Exam: Sitting at the edge of the bed without any acute distress Constitutional: well developed, well nourished and + morbidly obese; not ill appearing Eyes: PERRL, conjunctivae normal, anicteric sclerae ENMT: external ear and nose normal, oropharynx normal Neck: trachea midline, no thyromegaly Respiratory: no respiratory distress Auscultation: lungs clear to auscultation bilaterally and + diminished lung sounds Cardiovascular: Rate/Rhythm: regular rate and regular rhythm; not tachycardic Heart Sounds: normal S1 and normal S2; no murmur Extremities: + edema (Trace to 1+ edema bilaterally) Gastrointestinal (Abdomen): Inspection/Auscultation: normal bowel sounds; abdomen not distended Percussion/Palpation: abdomen soft; abdomen nontender Musculoskeletal: Tenderness in the lower back. Neurologic: Alert, awake and oriented x3 Lymphatic: no cervical or axillary lymphadenopathy Results & Data Results & Data ([facility]) Vital Signs (Past 12 Hours) Vital Signs Temp Pulse Resp BP Pulse Ox 06/05/21 16:14 36.3 C L 62 16 145/72 H 97 06/05/21 08:00 36.6 C 64 16 132/82 92 Medications Administered Current Inpatient Medications Acetaminophen (Acetaminophen 325 Mg Tab) 650 mg PO Q4H PRN PRN Reason: Pain or Fever Stop: 06/12/21 03:09 Last Admin: 06/04/21 21:07 Dose: 650 mg Documented by: Allopurinol (Allopurinol 100 Mg Tab) 200 mg PO DAILY [facility]; Taper Stop: 07/07/21 08:59 Last Admin: 06/05/21 09:14 Dose: 200 mg Documented by: Amlodipine Besylate (Amlodipine Besylate 5 Mg Tab) 10 mg PO DAILY [facility] Stop: 06/12/21 08:59 Last Admin: 06/05/21 09:13 Dose: 10 mg Documented by: Atorvastatin Calcium (Atorvastatin 40 Mg Tab) 40 mg PO HS [facility] Stop: 06/12/21 20:59 Last Admin: 06/04/21 21:09 Dose: 40 mg Documented by: Bumetanide (Bumetanide 1 Mg Tab) 1 mg PO DAILY [facility] Stop: 06/14/21 08:59 Last Admin: 06/05/21 09:14 Dose: 1 mg Documented by: Dextrose (Dextrose 50% 50 Ml Syringe) 25 - 50 ml IV UD PRN; Protocol PRN Reason: Hypoglycemia Protocol Stop: 06/12/21 03:09 Docusate Sodium (Docusate Sodium 100 Mg Cap) 100 mg PO BID PRN PRN Reason: Constipation Stop: 06/12/21 03:09 Duloxetine HCl (Duloxetine Hcl 60 Mg Cap) 60 mg PO DAILY [facility] Stop: 06/12/21 08:59 Last Admin: 06/05/21 09:13 Dose: 60 mg Documented by: Enoxaparin Sodium (Enoxaparin Inj 40 Mg/0.4 Ml Syr) 40 mg SQ QAM [facility] Stop: 06/12/21 08:59 Last Admin: 06/05/21 09:12 Dose: 40 mg Documented by: Ferrous Sulfate (Ferrous Sulfate 325 Mg Tab) 325 mg PO BIDM [facility] Stop: 06/12/21 07:59 Last Admin: 06/05/21 17:33 Dose: 325 mg Documented by: Gabapentin (Gabapentin 100 Mg Cap) 200 mg PO TID [facility] Stop: 06/13/21 20:59 Last Admin: 06/05/21 14:04 Dose: 200 mg Documented by: Glucagon (Glucagon For Inj 1 Mg Vial) 1 mg SQ UD PRN; Protocol PRN Reason: Hypoglycemia Protocol Stop: 06/12/21 03:09 Glucose (Glucose 10 Tabs/Tube) 4 - 8 tabs PO UD PRN; Protocol PRN Reason: Hypoglycemia Protocol Stop: 06/12/21 03:09 Glucose (Glucose 40% Gel 15 Gm Tube) 15 - 30 gm PO UD PRN; Protocol PRN Reason: Hypoglycemia Protocol Stop: 06/12/21 03:09 Hydralazine HCl (Hydralazine 10 Mg Tab) 20 mg PO BID [facility] Stop: 06/30/21 20:59 Last Admin: 06/05/21 09:13 Dose: 20 mg Documented by: Promethazine HCl 12.5 mg/ (Sodium Chloride) 50.5 mls @ 202 mls/hr IV Q6H PRN PRN Reason: Nausea And Vomiting Stop: 06/12/21 03:28 Last Infusion: 06/04/21 21:59 Dose: Infused Documented by: Insulin Aspart (Insulin Aspart Per Unit) 0 units SC ACHS [facility] Stop: 06/26/21 11:59 Last Admin: 06/05/21 17:32 Dose: 3 units Documented by: Insulin Glargine (Insulin Glargine Solostar 100 Units/Ml 3 Ml Pen) 15 units SC DAILY [facility] Stop: 06/24/21 08:59 Last Admin: 06/05/21 09:12 Dose: 15 units Documented by: Labetalol HCl (Labetalol Hcl 100 Mg Tab) 100 mg PO BID [facility] Stop: 06/16/21 08:59 Last Admin: 06/05/21 09:13 Dose: 100 mg Documented by: Lisinopril (Lisinopril 40 Mg Tab) 40 mg PO DAILY [facility] Stop: 06/15/21 08:59 Last Admin: 06/05/21 09:13 Dose: 40 mg Documented by: Miscellaneous (Carbohydrates For Hypoglycemia ) 15 - 30 gm PO UD PRN PRN Reason: Hypoglycemia Protocol Stop: 06/12/21 03:09 Montelukast Sodium (Montelukast Sodium 10 Mg Tablet) 10 mg PO HS [facility] Stop: 06/12/21 20:59 Last Admin: 06/04/21 21:10 Dose: 10 mg Documented by: Olanzapine (Olanzapine 10 Mg/2.1 Ml Sdv) 5 mg IM Q6H PRN PRN Reason: Anxiety/Agitation Stop: 06/12/21 02:11 Pantoprazole Sodium (Pantoprazole 40 Mg Tab) 40 mg PO DAILY [facility] Stop: 06/12/21 08:59 Last Admin: 06/05/21 09:13 Dose: 40 mg Documented by: Polyethylene Glycol (Polyethylene (Miralax) 17 Gm Pack) 17 gm PO DAILY PRN PRN Reason: Constipation Stop: 06/12/21 03:09 Potassium Chloride (Potassium Chloride Crtab 20 Meq Tabcr) 20 meq PO DAILY [facility] Stop: 06/14/21 08:59 Last Admin: 06/05/21 09:21 Dose: 20 meq Documented by: Sertraline HCl (Sertraline Hcl 100 Mg Tablet) 100 mg PO DAILY [facility] Stop: 06/12/21 08:59 Last Admin: 06/05/21 09:13 Dose: 100 mg Documented by: Tamsulosin HCl (Tamsulosin Hcl 0.4 Mg Cap) 0.8 mg PO DAILY [facility] Stop: 06/12/21 08:59 Last Admin: 06/05/21 09:13 Dose: 0.8 mg Documented by: Tramadol HCl (Tramadol Hcl 50 Mg Tablet) 50 mg PO Q4H PRN PRN Reason: Pain Stop: 06/13/21 06:53 Last Admin: 06/05/21 14:04 Dose: 50 mg Documented by: Umeclidinium/Vilanterol (Umeclidinium/Vilanterol 62.5/25mcg 7 Puffs/Inhaler) 1 puffs INH DAILY [facility] Stop: 06/12/21 08:59 Last Admin: 06/05/21 09:12 Dose: 1 puffs Documented by:
[2021-06-05] MEDS: ATORVASTATIN 40 MG TAB PO SCH (19:51)
[2021-06-05] MEDS: MONTELUKAST SODIUM 10 MG TABLET PO SCH (19:52)
[2021-06-05] MEDS: DICLOFENAC SOD 1% GEL 100 GM TUBE EXT SCH (19:53)
[2021-06-06] MEDS: INSULIN ASPART PER UNIT SC SCH ×4 (08:58→21:52)
[2021-06-06] MEDS: LABETALOL HCL 100 MG TAB PO SCH ×2 (09:02→21:10)
[2021-06-06] MEDS: DULoxetine HCL 60 MG CAP PO SCH (09:03)
[2021-06-06] MEDS: hydrALAZINE 10 MG TAB PO SCH ×2 (09:04→21:10)
[2021-06-06] MEDS: FERROUS SULFATE 325 MG TAB PO SCH ×2 (09:04→17:33)
[2021-06-06] MEDS: TAMSULOSIN HCL 0.4 MG CAP PO SCH (09:05)
[2021-06-06] MEDS: amLODIPine BESYLATE 5 MG TAB PO SCH (09:07)
[2021-06-06] MEDS: BUMETANIDE 1 MG TAB PO SCH (09:08)
[2021-06-06] MEDS: lisinopril 40 MG TAB PO SCH (09:09)
[2021-06-06] MEDS: GABAPENTIN 100 MG CAP PO SCH ×3 (09:09→21:10)
[2021-06-06] MEDS: allopurinoL 100 MG TAB PO SCH (09:10)
[2021-06-06] MEDS: PANTOprazole 40 MG TAB PO SCH (09:11)
[2021-06-06] MEDS: SERTRALINE HCL 100 MG TABLET PO SCH (09:11)
[2021-06-06] MEDS: ENOXAPARIN INJ 40 MG/0.4 ML SYR SQ SCH (09:13)
[2021-06-06] MEDS: UMECLIDINIUM/VILANTEROL 62.5/25MCG 7 PUFFS/INHALER INH SCH (09:15)
[2021-06-06] MEDS: POTASSIUM CHLORIDE CRTAB 20 MEQ TABCR PO SCH (09:15)
[2021-06-06] MEDS: DICLOFENAC SOD 1% GEL 100 GM TUBE EXT SCH ×2 (09:19→21:17)
[2021-06-06] MEDS: INSULIN GLARGINE SOLOSTAR 100 UNITS/ML 3 ML PEN SC SCH (09:45)
[2021-06-06] MEDS: traMADol HCL 50 MG TABLET PO PRN (11:05)
--- NOTE | 2021-06-06 13:49 | Hospitalist Progress Note ---
Date of Service June 06, 2021 Assessment & Plan (1) Asymptomatic hypertensive urgency: Plan: Hypertensive Urgency Presented with hypertensive urgency in the setting of noncompliance with antihypertensive medications. Head CT-no acute intracranial findings Continue amlodipine 10 mg daily, lisinopril 40 mg daily, Bumex 1 mg daily Coreg switched to labetalol 100 mg twice daily - labetalol occasionally getting held due to bradycardia Started on hydralazine, increased to 20 mg twice daily from 05/31/2021 BP remains labile however mostly under control Rectal bleed Likely secondary to hemorrhoids No further episodes, Hgb stable Unvaccinated for COVID 19 Patient received J & J vaccine on 05/16 Functional disability Refused Rehab placement last admission PT/OT Awaiting placement Right wrist pain hx of osteo, abscess and s/p surg. debridement in December w/ Dr. Stephens seems to be well healed, no WBC elevation, patient afebrile R wrist XR shows significant arthritis Ortho consulted - don't believe any infectious process, also don't recommend steroid at this time d/t hx of significant infection and s/p surgery Has been using right wrist brace Chronic joint pain History of arthritis ESR and uric acid elevated During previous admission, was started on colchicine however was changed to a very short prednisone taper due to possible interaction with beta-iglesia Completed prednisone taper during this admission as well. Case discussed with OP Rheum who recommends tapering prednisone down to 5mg. Will need OP rheum eval. Prednisone now discontinued. Started on allopurinol 100mg daily x 1 week, 200mg daily x 1 wk and 300mg daily per rheum. Today is day 7 of 200 mg dose. On as needed tramadol, diclofenac gel Chronic diastolic heart failure EF 60 to 65%, TTE 2020 Appears euvolemic Continue Bumex CAD Appears stable, continue statin, beta-iglesia COPD FRANCIS CPAP intolerance Past tobacco use No signs of acute exacerbation Continue home inhalers DM II on oral medications Last HbA1c 6.18 April 2021 Continue insulin therapy while hospitalized BSG stable Chronic anemia Hb at baseline Continue iron replacement DVT Px: Lovenox SQ Disposition: Case management following, placement pending, medically stable Family: Mr. Hamlet Cheung, contact # [phone]. Ms. Bernice Mathias, contact #[phone]. Admission and Anticipated Discharge Date Admission Date: May 14, 2021 Supervising Physician Co-Signing Physician Notes Attending addendum The patient was seen and examined in medical floor He remains weak and lethargic He wants to go home On examination Remains hemodynamically stable Chest-occasional wheezing Heart-S1-S2 regular Abdomen-distended, soft Extremities-trace edema bilaterally ATTENDANCE OFFICER-alert, awake and oriented His labs and medications reviewed Agree with assessment and plan as outlined above by Pily Bae Subjective Patient seen and examined. Follow-up for hypertensive urgency. Patient resting in bed, offers no complaints. Reports generalized joint pain is improving. No chest pain or shortness of breath. Denies abdominal pain or nausea Review of Systems Review of Systems: ROS per HPI, all other systems reviewed and negative Physical Exam Constitutional: + obese; no acute distress Respiratory: normal respiratory effort, lungs clear to auscultation Cardiovascular: Rate/Rhythm: regular rate and regular rhythm Vessels: normal peripheral pulses Extremities: + edema (Trace edema BLE) Skin: no rashes, warm and dry Neurologic: no focal motor deficits Psychiatric: A+Ox3, euthymic affect Results & Data Results & Data ([facility]) Vital Signs (Past 12 Hours) Vital Signs Temp Pulse Resp BP Pulse Ox 06/06/21 07:47 36.4 C L 59 L 16 144/73 H 93
[2021-06-06] MEDS: ATORVASTATIN 40 MG TAB PO SCH (21:10)
[2021-06-06] MEDS: MONTELUKAST SODIUM 10 MG TABLET PO SCH (21:10)
[2021-06-07] MEDS: traMADol HCL 50 MG TABLET PO PRN (07:38)
[2021-06-07] MEDS: LABETALOL HCL 100 MG TAB PO SCH ×2 (09:05→20:43)
[2021-06-07] MEDS: PANTOprazole 40 MG TAB PO SCH (09:05)
[2021-06-07] MEDS: amLODIPine BESYLATE 5 MG TAB PO SCH (09:06)
[2021-06-07] MEDS: SERTRALINE HCL 100 MG TABLET PO SCH (09:07)
[2021-06-07] MEDS: FERROUS SULFATE 325 MG TAB PO SCH ×2 (09:07→18:18)
[2021-06-07] MEDS: TAMSULOSIN HCL 0.4 MG CAP PO SCH (09:07)
[2021-06-07] MEDS: GABAPENTIN 100 MG CAP PO SCH ×3 (09:08→20:42)
[2021-06-07] MEDS: allopurinoL 100 MG TAB PO SCH (09:10)
[2021-06-07] MEDS: hydrALAZINE 10 MG TAB PO SCH ×2 (09:11→20:42)
[2021-06-07] MEDS: BUMETANIDE 1 MG TAB PO SCH (09:12)
[2021-06-07] MEDS: lisinopril 40 MG TAB PO SCH (09:12)
[2021-06-07] MEDS: UMECLIDINIUM/VILANTEROL 62.5/25MCG 7 PUFFS/INHALER INH SCH (09:13)
[2021-06-07] MEDS: DICLOFENAC SOD 1% GEL 100 GM TUBE EXT SCH ×2 (09:15→20:47)
[2021-06-07] MEDS: DULoxetine HCL 60 MG CAP PO SCH (09:16)
[2021-06-07] MEDS: ENOXAPARIN INJ 40 MG/0.4 ML SYR SQ SCH (09:17)
[2021-06-07] MEDS: INSULIN ASPART PER UNIT SC SCH ×4 (09:20→20:40)
[2021-06-07] MEDS: INSULIN GLARGINE SOLOSTAR 100 UNITS/ML 3 ML PEN SC SCH (09:22)
[2021-06-07] MEDS: POTASSIUM CHLORIDE CRTAB 20 MEQ TABCR PO SCH (10:43)
--- NOTE | 2021-06-07 19:49 | Hospitalist Progress Note ---
Date of Service June 07, 2021 Assessment & Plan (1) Asymptomatic hypertensive urgency: Plan: Hypertensive Urgency H/O Noncompliance Head CT-no acute intracranial findings Continue amlodipine 10 mg daily, lisinopril 40 mg daily, Bumex 1 mg daily Coreg switched to labetalol 100 mg twice daily Continue hydralazine 20 mg BID Monitor Rectal bleed Likely secondary to hemorrhoids No further episodes, Hgb stable Unvaccinated for COVID 19 Patient received J & J vaccine on 05/16 Functional disability Refused Rehab placement last admission PT/OT Awaiting placement Right wrist pain hx of osteo, abscess and s/p surg. debridement in December w/ Dr. Stephens seems to be well healed, no WBC elevation, patient afebrile R wrist XR shows significant arthritis Ortho consulted - don't believe any infectious process, also don't recommend steroid at this time d/t hx of significant infection and s/p surgery Has been using right wrist brace Chronic joint pain History of arthritis ESR and uric acid elevated Completed prednisone taper course Case discussed with OP Rheumatology Continue allopurinol 300mg daily On as needed tramadol, diclofenac gel Needs follow-up with rheumatology upon discharge Chronic diastolic heart failure EF 60 to 65%, TTE 2020 Appears euvolemic Continue Bumex CAD Continue statin, beta-iglesia COPD FRANCIS CPAP intolerance Past tobacco use No signs of acute exacerbation Continue home inhalers DM II on oral medications Last HbA1c 6.18 April 2021 Continue insulin therapy while hospitalized BSG stable Chronic anemia Hb at baseline Continue iron replacement DVT Px: Lovenox SQ Disposition: Case management following, placement pending, medically stable Family: Mr. Hamlet Cheung, contact # [phone]. Ms. Queen Jodilouis, contact #[phone]. Admission and Anticipated Discharge Date Admission Date: May 14, 2021 Subjective Patient is seen and examined at bedside States feeling better Has chronic joint pain Denies any chest pain, shortness breath, dizziness, nausea, abdominal pain Offers no other complaints Review of Systems Review of Systems: All systems reviewed & are unremarkable except as noted in Subjective Physical Exam Physical Exam: Physical Exam: Vitals signs as noted above General Appearance: Morbidly obese, no apparent distress Head: normocephalic, Atraumatic Eyes: normal inspection, EOMI Neck: supple, Trachea midline Respiratory/Chest: Normal breath sounds, CTA Cardiovascular: S1, S2, No murmur Abdomen/GI:Soft, Non tender, Bowel sounds present Extremities/Musculoskeletal:normal inspection, 1+ pedal edema Neurologic/Psych:AAOX3, grossly no focal neurological deficits Skin: normal color, warm Results & Data Results & Data ([facility]) Vital Signs (Past 12 Hours) Vital Signs Temp Pulse Resp BP Pulse Ox 06/07/21 16:17 36.4 C L 78 16 127/76 93 06/07/21 07:57 36.4 C L 63 16 155/69 H 91
[2021-06-07] MEDS: MONTELUKAST SODIUM 10 MG TABLET PO SCH (20:44)
[2021-06-07] MEDS: ATORVASTATIN 40 MG TAB PO SCH (20:44)
[2021-06-08] MEDS: INSULIN ASPART PER UNIT SC SCH ×4 (08:39→21:17)
[2021-06-08] MEDS: FERROUS SULFATE 325 MG TAB PO SCH ×2 (08:40→17:30)
[2021-06-08] MEDS: allopurinoL 100 MG TAB PO SCH (08:41)
[2021-06-08] MEDS: amLODIPine BESYLATE 5 MG TAB PO SCH (08:42)
[2021-06-08] MEDS: BUMETANIDE 1 MG TAB PO SCH (08:42)
[2021-06-08] MEDS: DULoxetine HCL 60 MG CAP PO SCH (08:43)
[2021-06-08] MEDS: ENOXAPARIN INJ 40 MG/0.4 ML SYR SQ SCH (08:43)
[2021-06-08] MEDS: DICLOFENAC SOD 1% GEL 100 GM TUBE EXT SCH ×2 (08:43→20:05)
[2021-06-08] MEDS: GABAPENTIN 100 MG CAP PO SCH ×3 (08:44→20:06)
[2021-06-08] MEDS: INSULIN GLARGINE SOLOSTAR 100 UNITS/ML 3 ML PEN SC SCH (08:45)
[2021-06-08] MEDS: hydrALAZINE 10 MG TAB PO SCH ×2 (08:45→20:04)
[2021-06-08] MEDS: LABETALOL HCL 100 MG TAB PO SCH ×2 (08:47→20:05)
[2021-06-08] MEDS: lisinopril 40 MG TAB PO SCH (08:47)
[2021-06-08] MEDS: SERTRALINE HCL 100 MG TABLET PO SCH (08:48)
[2021-06-08] MEDS: PANTOprazole 40 MG TAB PO SCH (08:48)
[2021-06-08] MEDS: UMECLIDINIUM/VILANTEROL 62.5/25MCG 7 PUFFS/INHALER INH SCH (08:49)
[2021-06-08] MEDS: TAMSULOSIN HCL 0.4 MG CAP PO SCH (08:49)
[2021-06-08] MEDS: POTASSIUM CHLORIDE CRTAB 20 MEQ TABCR PO SCH (08:51)
--- NOTE | 2021-06-08 09:25 | Hospitalist Progress Note ---
Date of Service June 08, 2021 Assessment & Plan (1) Asymptomatic hypertensive urgency: Plan: Hypertensive Urgency H/O Noncompliance Head CT-no acute intracranial findings Continue amlodipine 10 mg daily, lisinopril 40 mg daily, Bumex 1 mg daily Coreg switched to labetalol 100 mg twice daily Continue hydralazine 20 mg BID Monitor Rectal bleed Likely secondary to hemorrhoids No further episodes, Hgb stable Unvaccinated for COVID 19 Patient received J & J vaccine on 05/16 Functional disability Refused Rehab placement last admission PT/OT Awaiting placement Right wrist pain Hx of osteo, abscess and s/p surg. debridement in December w/ Dr. Stephens seems to be well healed, no WBC elevation, patient afebrile R wrist XR shows significant arthritis Ortho consulted - don't believe any infectious process, also don't recommend steroid at this time d/t hx of significant infection and s/p surgery Has been using right wrist brace Chronic joint pain History of arthritis ESR and uric acid elevated Completed prednisone taper course Case discussed with OP Rheumatology Continue allopurinol 300mg daily On as needed tramadol, diclofenac gel Needs follow-up with rheumatology upon discharge Chronic diastolic heart failure EF 60 to 65%, TTE 2020 Appears euvolemic Continue Bumex CAD Continue statin, beta-iglesia COPD FRANCIS CPAP intolerance Past tobacco use No signs of acute exacerbation Continue home inhalers DM II on oral medications Last HbA1c 6.18 April 2021 Continue insulin therapy while hospitalized BSG stable Chronic anemia Hb at baseline Continue iron replacement DVT Px: SQ Lovenox Disposition: Case management following, placement pending, medically stable Family: Mr. Hamlet Cheung, contact # [phone]. Ms. Bernice Mathias, contact #[phone]. Admission and Anticipated Discharge Date Admission Date: May 14, 2021 Supervising Physician Co-Signing Physician Notes Patient is seen and examined at bedside. States having nausea earlier today which resolved. Offers no new complaint. On exam patient is morbidly obese, no apparent distress, normocephalic atraumatic, EOMI, lungs are clear to auscultation, normal breath sounds, S1-S2, no murmur, trace pedal edema, alert, awake, oriented, grossly no focal deficits. Continue current medications for hypertension management. No recurrence of rectal bleed. Waiting for rehab placement. I personally reviewed the record. Patient is interviewed and examined at bedside. Patient's care is coordinated with Hannah Stephens PA-C. Please refer to the documentation above for details of patient's presentation and for discussion of other issues. Subjective Patient is seen and examined in 307-1. No changes overnight and offers no complaints. Has chronic joint pain. Denies any fever, chills, lightheadedness, chest pain, shortness breath, dizziness, nausea, abdominal pain, dysuria or constipation. Documented bowel movement per nursing. Review of Systems Review of Systems: ROS per HPI, all other systems reviewed and negative Physical Exam Physical Exam: General Appearance: Morbidly obese, no apparent distress, resting comfortably Head: normocephalic, Atraumatic Eyes: normal inspection, EOMI Neck: supple, Trachea midline Respiratory/Chest: Normal breath sounds, CTA Cardiovascular: S1, S2, No murmur Abdomen/GI: Soft, Non tender, Bowel sounds present Extremities/Musculoskeletal: normal inspection, 1+ pedal edema Neurologic/Psych:AAOX3, grossly no focal neurological deficits Skin: normal color, warm Results & Data Results & Data ([facility]) Vital Signs (Past 12 Hours) Vital Signs Temp Pulse Resp BP BP Pulse Ox 06/08/21 08:00 36.5 C 58 L 16 152/69 H 93 06/07/21 22:12 36.6 C 67 18 148/74 H 93
[2021-06-08] MEDS: ATORVASTATIN 40 MG TAB PO SCH (20:06)
[2021-06-08] MEDS: MONTELUKAST SODIUM 10 MG TABLET PO SCH (20:06)
[2021-06-09] MEDS: ENOXAPARIN INJ 40 MG/0.4 ML SYR SQ SCH ×2 (08:32→21:22)
[2021-06-09] MEDS: lisinopril 40 MG TAB PO SCH (08:33)
[2021-06-09] MEDS: DULoxetine HCL 60 MG CAP PO SCH (08:33)
[2021-06-09] MEDS: PANTOprazole 40 MG TAB PO SCH (08:33)
[2021-06-09] MEDS: GABAPENTIN 100 MG CAP PO SCH ×3 (08:33→21:22)
[2021-06-09] MEDS: BUMETANIDE 1 MG TAB PO SCH (08:33)
[2021-06-09] MEDS: POTASSIUM CHLORIDE CRTAB 20 MEQ TABCR PO SCH (08:33)
[2021-06-09] MEDS: LABETALOL HCL 100 MG TAB PO SCH ×2 (08:33→21:22)
[2021-06-09] MEDS: amLODIPine BESYLATE 5 MG TAB PO SCH (08:33)
[2021-06-09] MEDS: allopurinoL 100 MG TAB PO SCH (08:34)
[2021-06-09] MEDS: FERROUS SULFATE 325 MG TAB PO SCH ×2 (08:34→17:56)
[2021-06-09] MEDS: SERTRALINE HCL 100 MG TABLET PO SCH (08:34)
[2021-06-09] MEDS: TAMSULOSIN HCL 0.4 MG CAP PO SCH (08:34)
[2021-06-09] MEDS: hydrALAZINE 10 MG TAB PO SCH ×2 (08:34→21:23)
[2021-06-09] MEDS: UMECLIDINIUM/VILANTEROL 62.5/25MCG 7 PUFFS/INHALER INH SCH (08:35)
[2021-06-09] MEDS: DICLOFENAC SOD 1% GEL 100 GM TUBE EXT SCH ×2 (08:35→21:23)
[2021-06-09] MEDS: INSULIN GLARGINE SOLOSTAR 100 UNITS/ML 3 ML PEN SC SCH (08:40)
[2021-06-09] MEDS: INSULIN ASPART PER UNIT SC SCH ×4 (08:42→21:04)
--- NOTE | 2021-06-09 08:45 | Hospitalist Progress Note ---
Date of Service June 09, 2021 Assessment & Plan (1) Asymptomatic hypertensive urgency: Plan: Hypertensive Urgency H/O Noncompliance Head CT-no acute intracranial findings Continue amlodipine 10 mg daily, lisinopril 40 mg daily, Bumex 1 mg daily Coreg switched to labetalol 100 mg twice daily Continue hydralazine 20 mg BID Monitor Rectal bleed Likely secondary to hemorrhoids No further episodes, Hgb stable Unvaccinated for COVID 19 Patient received J & J vaccine on 05/16 Functional disability Refused Rehab placement last admission PT/OT Awaiting placement Right wrist pain Hx of osteo, abscess and s/p surg. debridement in December w/ Dr. Stephens seems to be well healed, no WBC elevation, patient afebrile R wrist XR shows significant arthritis Ortho consulted - don't believe any infectious process, also don't recommend steroid at this time d/t hx of significant infection and s/p surgery Has been using right wrist brace Chronic joint pain History of arthritis ESR and uric acid elevated Completed prednisone taper course Case discussed with OP Rheumatology Continue allopurinol 300mg daily On as needed tramadol, diclofenac gel Needs follow-up with rheumatology upon discharge Chronic diastolic heart failure EF 60 to 65%, TTE 2020 Appears euvolemic Continue Bumex CAD Continue statin, beta-iglesia COPD FRANCIS CPAP intolerance Past tobacco use No signs of acute exacerbation Continue home inhalers DM II on oral medications Last HbA1c 6.18 April 2021 Continue insulin therapy while hospitalized BSG stable Chronic anemia Hb at baseline Continue iron replacement DVT Px: SQ Lovenox Disposition: Case management following, placement pending, medically stable Family: Mr. Hamlet Cheung, contact # [phone]. Ms. Bernice Mathias, contact #[phone]. Admission and Anticipated Discharge Date Admission Date: May 14, 2021 Supervising Physician Co-Signing Physician Notes Patient is seen and examined at bedside. No significant change from yesterday. Nausea resolved. Denies any chest pain, shortness of breath, abdominal pain. On exam patient is morbidly obese, no apparent distress, normocephalic atraumatic, EOMI, lungs are clear to auscultation, normal breath sounds, S1-S2, no murmur, trace pedal edema, alert, awake, oriented, grossly no focal deficits. Continue current medications for hypertension management. No recurrence of rectal bleed. Waiting for rehab placement. I personally reviewed the record. Patient is interviewed and examined at bedside. Patient's care is coordinated with Hannah Stephens PA-C. Please refer to the documentation above for details of patient's presentation and for discussion of other issues. Subjective Patient is seen and examined in 307-1. No changes overnight and offers no complaints. Has chronic joint pain. Denies any fever, chills, lightheadedness, chest pain, shortness breath, dizziness, nausea, abdominal pain, dysuria or constipation. Bowel movement yesterday, 06/08/21. Review of Systems Review of Systems: ROS per HPI, all other systems reviewed and negative Physical Exam Physical Exam: General Appearance: Morbidly obese, no apparent distress, resting comfortably Head: normocephalic, Atraumatic Eyes: normal inspection, EOMI Neck: supple, Trachea midline Respiratory/Chest: Normal breath sounds, CTA Cardiovascular: S1, S2, No murmur Abdomen/GI: Soft, Non tender, Bowel sounds present Extremities/Musculoskeletal: normal inspection, 1+ pedal edema Neurologic/Psych:AAOX3, grossly no focal neurological deficits Skin: normal color, warm Results & Data Results & Data ([facility]) Vital Signs (Past 12 Hours) Vital Signs Temp Pulse Resp BP Pulse Ox 06/09/21 07:47 36.4 C L 56 L 20 165/75 H 92 06/08/21 23:58 36.6 C 60 18 161/73 H 93
[2021-06-09] MEDS: ATORVASTATIN 40 MG TAB PO SCH (21:22)
[2021-06-09] MEDS: MONTELUKAST SODIUM 10 MG TABLET PO SCH (21:23)
[2021-06-10] MEDS: amLODIPine BESYLATE 5 MG TAB PO SCH (08:49)
[2021-06-10] MEDS: PANTOprazole 40 MG TAB PO SCH (08:49)
[2021-06-10] MEDS: DULoxetine HCL 60 MG CAP PO SCH (08:50)
[2021-06-10] MEDS: FERROUS SULFATE 325 MG TAB PO SCH ×2 (08:50→16:38)
[2021-06-10] MEDS: SERTRALINE HCL 100 MG TABLET PO SCH (08:50)
[2021-06-10] MEDS: LABETALOL HCL 100 MG TAB PO SCH ×2 (08:50→19:39)
[2021-06-10] MEDS: ENOXAPARIN INJ 40 MG/0.4 ML SYR SQ SCH ×2 (08:51→19:40)
[2021-06-10] MEDS: GABAPENTIN 100 MG CAP PO SCH ×3 (08:51→19:39)
[2021-06-10] MEDS: DICLOFENAC SOD 1% GEL 100 GM TUBE EXT SCH ×2 (08:52→19:41)
[2021-06-10] MEDS: allopurinoL 100 MG TAB PO SCH (08:52)
[2021-06-10] MEDS: BUMETANIDE 1 MG TAB PO SCH (08:53)
[2021-06-10] MEDS: hydrALAZINE 10 MG TAB PO SCH ×2 (08:53→19:40)
[2021-06-10] MEDS: UMECLIDINIUM/VILANTEROL 62.5/25MCG 7 PUFFS/INHALER INH SCH (08:54)
[2021-06-10] MEDS: lisinopril 40 MG TAB PO SCH (08:54)
[2021-06-10] MEDS: TAMSULOSIN HCL 0.4 MG CAP PO SCH (08:54)
[2021-06-10] MEDS: POTASSIUM CHLORIDE CRTAB 20 MEQ TABCR PO SCH (08:58)
[2021-06-10] MEDS: INSULIN GLARGINE SOLOSTAR 100 UNITS/ML 3 ML PEN SC SCH (09:04)
[2021-06-10] MEDS: INSULIN ASPART PER UNIT SC SCH ×4 (09:07→21:12)
--- NOTE | 2021-06-10 19:18 | Hospitalist Progress Note ---
Date of Service June 10, 2021 Assessment & Plan (1) Asymptomatic hypertensive urgency: Plan: Hypertensive Urgency H/O Noncompliance Head CT-no acute intracranial findings Continue amlodipine 10 mg daily, lisinopril 40 mg daily, Bumex 1 mg daily Coreg switched to labetalol 100 mg twice daily Continue hydralazine 20 mg BID Blood pressure better today Rectal bleed Likely secondary to hemorrhoids No further episodes, Hgb stable Unvaccinated for COVID 19 Patient received J & J vaccine on 05/16 Functional disability Refused Rehab placement last admission PT/OT Awaiting placement Right wrist pain Hx of osteo, abscess and s/p surg. debridement in December w/ Dr. Stephens seems to be well healed, no WBC elevation, patient afebrile R wrist XR shows significant arthritis Ortho consulted - don't believe any infectious process, also don't recommend steroid at this time d/t hx of significant infection and s/p surgery Continue right wrist brace Chronic joint pain History of arthritis ESR and uric acid elevated Completed prednisone taper course Case discussed with OP Rheumatology Continue allopurinol 300mg daily On as needed tramadol, diclofenac gel Needs follow-up with rheumatology upon discharge Chronic diastolic heart failure EF 60 to 65%, TTE 2020 Appears euvolemic Continue Bumex CAD Continue statin, beta-iglesia COPD FRANCIS CPAP intolerance Past tobacco use No signs of acute exacerbation Continue home inhalers DM II on oral medications Last HbA1c 6.18 April 2021 Continue insulin therapy while hospitalized BSG stable Chronic anemia Hb at baseline Continue iron replacement DVT Px: SQ Lovenox Disposition: Case management following, placement pending, medically stable Family: Mr. Hamlet Cheung, contact # [phone]. Ms. Queen Jodilouis, contact #[phone]. Admission and Anticipated Discharge Date Admission Date: May 14, 2021 Subjective Patient is seen and examined at bedside No new complaints Feels tired today Chronic joint pain Denies any chest pain, shortness, dizziness, nausea, abdominal pain Review of Systems Review of Systems: All systems reviewed & are unremarkable except as noted in Subjective Physical Exam Physical Exam: Physical Exam: Vitals signs as noted above General Appearance: Morbidly obese, no apparent distress Head: normocephalic, Atraumatic Eyes: normal inspection, EOMI Neck: supple, Trachea midline Respiratory/Chest: Normal breath sounds, CTA Cardiovascular: S1, S2, No murmur Abdomen/GI:Soft, Non tender, Bowel sounds present Extremities/Musculoskeletal:normal inspection, 1+ pedal edema Neurologic/Psych:AAOX3, grossly no focal neurological deficits Skin: normal color, warm Results & Data Results & Data ([facility]) Vital Signs (Past 12 Hours) Vital Signs Temp Pulse Resp BP Pulse Ox 06/10/21 15:38 36.4 C L 65 20 119/82 91 06/10/21 08:57 65 134/72 91 06/10/21 07:37 36.7 C 59 L 20 151/74 H 93
[2021-06-10] MEDS: MONTELUKAST SODIUM 10 MG TABLET PO SCH (19:39)
[2021-06-10] MEDS: ATORVASTATIN 40 MG TAB PO SCH (19:40)
[2021-06-11] MEDS: traMADol HCL 50 MG TABLET PO PRN (07:40)
[2021-06-11] MEDS: allopurinoL 100 MG TAB PO SCH (08:44)
[2021-06-11] MEDS: LABETALOL HCL 100 MG TAB PO SCH ×2 (08:44→20:02)
[2021-06-11] MEDS: GABAPENTIN 100 MG CAP PO SCH ×3 (08:44→20:03)
[2021-06-11] MEDS: PANTOprazole 40 MG TAB PO SCH (08:44)
[2021-06-11] MEDS: FERROUS SULFATE 325 MG TAB PO SCH ×2 (08:44→16:24)
[2021-06-11] MEDS: hydrALAZINE 10 MG TAB PO SCH ×2 (08:45→20:02)
[2021-06-11] MEDS: lisinopril 40 MG TAB PO SCH (08:45)
[2021-06-11] MEDS: DULoxetine HCL 60 MG CAP PO SCH (08:46)
[2021-06-11] MEDS: BUMETANIDE 1 MG TAB PO SCH (08:46)
[2021-06-11] MEDS: amLODIPine BESYLATE 5 MG TAB PO SCH (08:46)
[2021-06-11] MEDS: SERTRALINE HCL 100 MG TABLET PO SCH (08:47)
[2021-06-11] MEDS: TAMSULOSIN HCL 0.4 MG CAP PO SCH (08:47)
[2021-06-11] MEDS: UMECLIDINIUM/VILANTEROL 62.5/25MCG 7 PUFFS/INHALER INH SCH (08:47)
[2021-06-11] MEDS: ENOXAPARIN INJ 40 MG/0.4 ML SYR SQ SCH ×2 (08:48→20:01)
[2021-06-11] MEDS: DICLOFENAC SOD 1% GEL 100 GM TUBE EXT SCH ×2 (08:48→20:01)
[2021-06-11] MEDS: INSULIN GLARGINE SOLOSTAR 100 UNITS/ML 3 ML PEN SC SCH (08:53)
[2021-06-11] MEDS: INSULIN ASPART PER UNIT SC SCH ×4 (08:57→21:13)
[2021-06-11] MEDS: POTASSIUM CHLORIDE CRTAB 20 MEQ TABCR PO SCH (08:59)
[2021-06-11] MEDS: ATORVASTATIN 40 MG TAB PO SCH (20:02)
[2021-06-11] MEDS: MONTELUKAST SODIUM 10 MG TABLET PO SCH (20:02)
--- NOTE | 2021-06-11 20:10 | Hospitalist Progress Note ---
Date of Service June 11, 2021 Assessment & Plan (1) Asymptomatic hypertensive urgency: Plan: Hypertensive Urgency H/O Noncompliance Head CT-no acute intracranial findings Continue amlodipine 10 mg daily, lisinopril 40 mg daily, Bumex 1 mg daily Coreg switched to labetalol 100 mg twice daily Continue hydralazine 20 mg BID Continue current medications Rectal bleed Likely secondary to hemorrhoids No further episodes, Hgb stable Unvaccinated for COVID 19 Patient received J & J vaccine on 05/16 Functional disability Refused Rehab placement last admission PT/OT Awaiting placement Right wrist pain Hx of osteo, abscess and s/p surg. debridement in December w/ Dr. Stephens seems to be well healed, no WBC elevation, patient afebrile R wrist XR shows significant arthritis Ortho consulted - don't believe any infectious process, also don't recommend steroid at this time d/t hx of significant infection and s/p surgery Continue right wrist brace Chronic joint pain History of arthritis ESR and uric acid elevated Completed prednisone taper course Case discussed with OP Rheumatology Continue allopurinol 300mg daily On as needed tramadol, diclofenac gel Needs follow-up with rheumatology upon discharge Chronic diastolic heart failure EF 60 to 65%, TTE 2020 Appears euvolemic Continue Bumex CAD Continue statin, beta-iglesia COPD FRANCIS CPAP intolerance Past tobacco use No signs of acute exacerbation Continue home inhalers DM II on oral medications Last HbA1c 6.18 April 2021 Continue insulin therapy while hospitalized BSG stable Chronic anemia Hb at baseline Continue iron replacement DVT Px: SQ Lovenox Disposition: Case management following, placement pending, medically stable Family: Mr. Hamlet Cheung, contact # [phone]. Ms. Queen Jodilouis, contact #[phone]. Admission and Anticipated Discharge Date Admission Date: May 14, 2021 Subjective Patient is seen and examined at bedside States having nausea earlier today No other complaints Chronic joint pain Denies any chest pain, shortness, dizziness, nausea, abdominal pain Review of Systems Review of Systems: All systems reviewed & are unremarkable except as noted in Subjective Physical Exam Physical Exam: Physical Exam: Vitals signs as noted above General Appearance: Morbidly obese, no apparent distress Head: normocephalic, Atraumatic Eyes: normal inspection, EOMI Neck: supple, Trachea midline Respiratory/Chest: Normal breath sounds, CTA Cardiovascular: S1, S2, No murmur Abdomen/GI:Soft, Non tender, Bowel sounds present Extremities/Musculoskeletal:normal inspection, 1+ pedal edema Neurologic/Psych:AAOX3, grossly no focal neurological deficits Skin: normal color, warm Results & Data Results & Data ([facility]) Vital Signs (Past 12 Hours) Vital Signs Temp Pulse Pulse Resp BP Pulse Ox 06/11/21 15:46 36.3 C L 61 134/74 95 06/11/21 08:30 36.5 C 64 20 148/70 H 92
[2021-06-12] MEDS: FERROUS SULFATE 325 MG TAB PO SCH ×2 (08:32→17:43)
[2021-06-12] MEDS: amLODIPine BESYLATE 5 MG TAB PO SCH (08:33)
[2021-06-12] MEDS: allopurinoL 100 MG TAB PO SCH (08:33)
[2021-06-12] MEDS: DULoxetine HCL 60 MG CAP PO SCH (08:34)
[2021-06-12] MEDS: DICLOFENAC SOD 1% GEL 100 GM TUBE EXT SCH ×2 (08:34→21:07)
[2021-06-12] MEDS: ENOXAPARIN INJ 40 MG/0.4 ML SYR SQ SCH ×2 (08:34→21:07)
[2021-06-12] MEDS: BUMETANIDE 1 MG TAB PO SCH (08:34)
[2021-06-12] MEDS: GABAPENTIN 100 MG CAP PO SCH ×3 (08:35→21:08)
[2021-06-12] MEDS: LABETALOL HCL 100 MG TAB PO SCH ×2 (08:36→21:09)
[2021-06-12] MEDS: hydrALAZINE 10 MG TAB PO SCH ×2 (08:36→21:08)
[2021-06-12] MEDS: lisinopril 40 MG TAB PO SCH (08:37)
[2021-06-12] MEDS: PANTOprazole 40 MG TAB PO SCH (08:37)
[2021-06-12] MEDS: TAMSULOSIN HCL 0.4 MG CAP PO SCH (08:38)
[2021-06-12] MEDS: SERTRALINE HCL 100 MG TABLET PO SCH (08:38)
[2021-06-12] MEDS: UMECLIDINIUM/VILANTEROL 62.5/25MCG 7 PUFFS/INHALER INH SCH (08:38)
[2021-06-12] MEDS: INSULIN GLARGINE SOLOSTAR 100 UNITS/ML 3 ML PEN SC SCH (08:46)
[2021-06-12] MEDS: INSULIN ASPART PER UNIT SC SCH ×4 (08:49→21:09)
[2021-06-12] MEDS: POTASSIUM CHLORIDE CRTAB 20 MEQ TABCR PO SCH (08:50)
--- NOTE | 2021-06-12 17:36 | Hospitalist Progress Note ---
Date of Service June 12, 2021 Assessment & Plan (1) Asymptomatic hypertensive urgency: Plan: Hypertensive Urgency H/O Noncompliance Head CT-no acute intracranial findings Continue amlodipine 10 mg daily, lisinopril 40 mg daily, Bumex 1 mg daily Coreg switched to labetalol 100 mg twice daily Continue hydralazine 20 mg BID BP stable Waiting for placement Rectal bleed Likely secondary to hemorrhoids No further episodes, Hgb stable Unvaccinated for COVID 19 Patient received J & J vaccine on 05/16 Functional disability Refused Rehab placement last admission PT/OT Awaiting placement Right wrist pain Hx of osteo, abscess and s/p surg. debridement in December w/ Dr. Stephens seems to be well healed, no WBC elevation, patient afebrile R wrist XR shows significant arthritis Ortho consulted - don't believe any infectious process, also don't recommend florencio roid at this time d/t hx of significant infection and s/p surgery Continue right wrist brace Chronic joint pain History of arthritis ESR and uric acid elevated Completed prednisone taper course Case discussed with OP Rheumatology Continue allopurinol 300mg daily On as needed tramadol, diclofenac gel Needs follow-up with rheumatology upon discharge Chronic diastolic heart failure EF 60 to 65%, TTE 2020 Appears euvolemic Continue Bumex CAD Continue statin, beta-iglesia COPD FRANCIS CPAP intolerance Past tobacco use No signs of acute exacerbation Continue home inhalers DM II on oral medications Last HbA1c 6.18 April 2021 Continue insulin therapy while hospitalized BSG stable Chronic anemia Hb at baseline Continue iron replacement DVT Px: SQ Lovenox Disposition: Case management following, placement pending, medically stable Family: Mr. Hamlet Cheung, contact # [phone]. Ms. Bernice Mathias, contact #[phone]. Admission and Anticipated Discharge Date Admission Date: May 14, 2021 Subjective Patient is seen and examined at bedside Nausea resolved No new complaints BP stable Chronic joint pain Denies any chest pain, shortness, dizziness, nausea, abdominal pain Review of Systems Review of Systems: All systems reviewed & are unremarkable except as noted in Subjective Physical Exam Physical Exam: Physical Exam: Vitals signs as noted above General Appearance: Morbidly obese, no apparent distress Head: normocephalic, Atraumatic Eyes: normal inspection, EOMI Neck: supple, Trachea midline Respiratory/Chest: Normal breath sounds, CTA Cardiovascular: S1, S2, No murmur Abdomen/GI:Soft, Non tender, Bowel sounds present Extremities/Musculoskeletal:normal inspection, 1+ pedal edema Neurologic/Psych:AAOX3, grossly no focal neurological deficits Skin: normal color, warm Results & Data Results & Data ([facility]) Vital Signs (Past 12 Hours) Vital Signs Temp Pulse Resp BP Pulse Ox 06/12/21 16:30 36.5 C 70 16 132/82 92 06/12/21 07:35 36.4 C L 61 16 162/73 H 92
[2021-06-12] MEDS: ATORVASTATIN 40 MG TAB PO SCH (21:07)
[2021-06-12] MEDS: MONTELUKAST SODIUM 10 MG TABLET PO SCH (21:09)
[2021-06-13 06:39] LABS: Est GFR (African American) 72.2 ml/min; Est GFR (Non-African American) 62.3 ml/min
[2021-06-13] MEDS: allopurinoL 100 MG TAB PO SCH (08:28)
[2021-06-13] MEDS: DICLOFENAC SOD 1% GEL 100 GM TUBE EXT SCH ×2 (08:29→20:45)
[2021-06-13] MEDS: FERROUS SULFATE 325 MG TAB PO SCH ×2 (08:29→17:55)
[2021-06-13] MEDS: DULoxetine HCL 60 MG CAP PO SCH (08:29)
[2021-06-13] MEDS: lisinopril 40 MG TAB PO SCH (08:30)
[2021-06-13] MEDS: ENOXAPARIN INJ 40 MG/0.4 ML SYR SQ SCH ×2 (08:30→20:45)
[2021-06-13] MEDS: hydrALAZINE 10 MG TAB PO SCH ×2 (08:30→20:46)
[2021-06-13] MEDS: amLODIPine BESYLATE 5 MG TAB PO SCH (08:31)
[2021-06-13] MEDS: BUMETANIDE 1 MG TAB PO SCH (08:32)
[2021-06-13] MEDS: GABAPENTIN 100 MG CAP PO SCH ×3 (08:32→20:45)
[2021-06-13] MEDS: INSULIN GLARGINE SOLOSTAR 100 UNITS/ML 3 ML PEN SC SCH (08:32)
[2021-06-13] MEDS: LABETALOL HCL 100 MG TAB PO SCH ×2 (08:33→20:45)
[2021-06-13] MEDS: PANTOprazole 40 MG TAB PO SCH (08:34)
[2021-06-13] MEDS: UMECLIDINIUM/VILANTEROL 62.5/25MCG 7 PUFFS/INHALER INH SCH (08:35)
[2021-06-13] MEDS: SERTRALINE HCL 100 MG TABLET PO SCH (08:35)
[2021-06-13] MEDS: POTASSIUM CHLORIDE CRTAB 20 MEQ TABCR PO SCH (08:35)
[2021-06-13] MEDS: TAMSULOSIN HCL 0.4 MG CAP PO SCH (08:36)
[2021-06-13] MEDS: INSULIN ASPART PER UNIT SC SCH ×4 (08:43→20:46)
[2021-06-13] MEDS: traMADol HCL 50 MG TABLET PO PRN (08:47)
--- NOTE | 2021-06-13 14:54 | Hospitalist Progress Note ---
Date of Service June 13, 2021 Assessment & Plan (1) Asymptomatic hypertensive urgency: Plan: Hypertensive Urgency H/O Noncompliance Head CT-no acute intracranial findings Continue amlodipine 10 mg daily, lisinopril 40 mg daily, Bumex 1 mg daily Coreg switched to labetalol 100 mg twice daily Continue hydralazine 20 mg BID BP stable Waiting for placement Rectal bleed Likely secondary to hemorrhoids No further episodes, Hgb stable Unvaccinated for COVID 19 Patient received J & J vaccine on 05/16 Functional disability Refused Rehab placement last admission PT/OT Awaiting placement Right wrist pain Hx of osteo, abscess and s/p surg. debridement in December w/ Dr. Stephens seems to be well healed, no WBC elevation, patient afebrile R wrist XR shows significant arthritis Ortho consulted - don't believe any infectious process, also don't recommend florencio roid at this time d/t hx of significant infection and s/p surgery Continue right wrist brace Chronic joint pain History of arthritis ESR and uric acid elevated Completed prednisone taper course Case discussed with OP Rheumatology Continue allopurinol 300mg daily On as needed tramadol, diclofenac gel Needs follow-up with rheumatology upon discharge Chronic diastolic heart failure EF 60 to 65%, TTE 2020 Appears euvolemic Continue Bumex CAD Continue statin, beta-iglesia COPD FRANCIS CPAP intolerance Past tobacco use No signs of acute exacerbation Continue home inhalers DM II on oral medications Last HbA1c 6.18 April 2021 Continue insulin therapy while hospitalized BSG stable Chronic anemia Hb at baseline Continue iron replacement DVT Px: SQ Lovenox Disposition: Case management following, placement pending, medically stable Family: Mr. Hamlet Cheung, contact # [phone]. Ms. Bernice Mathias, contact #[phone]. Admission and Anticipated Discharge Date Admission Date: May 14, 2021 Subjective Patient is seen and examined at bedside Reports having chronic knee pain today Denies any chest pain, shortness, dizziness, nausea, abdominal pain Waiting for placement Review of Systems Review of Systems: All systems reviewed & are unremarkable except as noted in Subjective Physical Exam Physical Exam: Physical Exam: Vitals signs as noted above General Appearance: Morbidly obese, no apparent distress Head: normocephalic, Atraumatic Eyes: normal inspection, EOMI Neck: supple, Trachea midline Respiratory/Chest: Normal breath sounds, CTA Cardiovascular: S1, S2, No murmur Abdomen/GI:Soft, Non tender, Bowel sounds present Extremities/Musculoskeletal:normal inspection, 1+ pedal edema Neurologic/Psych:AAOX3, grossly no focal neurological deficits Skin: normal color, warm Results & Data Results & Data ([facility]) Vital Signs (Past 12 Hours) Vital Signs Temp Pulse Resp BP Pulse Ox 06/13/21 07:38 36.5 C 59 L 16 130/66 94 Laboratory Results [facility] 06/13/21 05:50 Creatinine 1.22
[2021-06-13] MEDS: ATORVASTATIN 40 MG TAB PO SCH (20:45)
[2021-06-13] MEDS: MONTELUKAST SODIUM 10 MG TABLET PO SCH (20:46)
[2021-06-14 06:18] LABS: Hematocrit (blood only) 31.5 % (42-52); Hemoglobin 9.9 g/dL (14.0-18.0); Mean Corpuscular Hemoglobin 26.9 pg (25-34); Mean Corpuscular Hgb Conc 31.4 g/dL (32-36); Mean Corpuscular Volume 85.6 fL (80-100); Mean Platelet Volume 10.1 fL (7.4-10.4); Platelet Count 180 K/uL (130-400); RDW Coefficient of Variation 17.7 % (11.5-14.5); RDW Standard Deviation 55.1 fL (36.4-46.3); Red Blood Count 3.68 M/uL (4.7-6.1); White Blood Count 7.47 K/uL (4.8-10.8)
[2021-06-14 06:48] LABS: BUN Creatinine Ratio 19.9 (10-20); Calcium 9.7 mg/dl (8.5-10.1); Creatinine Clr Calc Pharmacy 83.1 ml/min; Est GFR (African American) 62.2 ml/min; Est GFR (Non-African American) 53.6 ml/min; Potassium 3.5 mmol/L (3.5-5.1)
[2021-06-14] MEDS: allopurinoL 100 MG TAB PO SCH (09:09)
[2021-06-14] MEDS: amLODIPine BESYLATE 5 MG TAB PO SCH (09:09)
[2021-06-14] MEDS: LABETALOL HCL 100 MG TAB PO SCH ×2 (09:09→20:57)
[2021-06-14] MEDS: GABAPENTIN 100 MG CAP PO SCH ×3 (09:09→20:57)
[2021-06-14] MEDS: FERROUS SULFATE 325 MG TAB PO SCH ×2 (09:10→18:16)
[2021-06-14] MEDS: BUMETANIDE 1 MG TAB PO SCH (09:10)
[2021-06-14] MEDS: INSULIN GLARGINE SOLOSTAR 100 UNITS/ML 3 ML PEN SC SCH (09:10)
[2021-06-14] MEDS: POTASSIUM CHLORIDE CRTAB 20 MEQ TABCR PO SCH (09:10)
[2021-06-14] MEDS: PANTOprazole 40 MG TAB PO SCH (09:10)
[2021-06-14] MEDS: TAMSULOSIN HCL 0.4 MG CAP PO SCH (09:10)
[2021-06-14] MEDS: DULoxetine HCL 60 MG CAP PO SCH (09:10)
[2021-06-14] MEDS: SERTRALINE HCL 100 MG TABLET PO SCH (09:10)
[2021-06-14] MEDS: hydrALAZINE 10 MG TAB PO SCH ×2 (09:10→20:56)
[2021-06-14] MEDS: lisinopril 40 MG TAB PO SCH (09:10)
[2021-06-14] MEDS: INSULIN ASPART PER UNIT SC SCH ×4 (09:11→20:58)
[2021-06-14] MEDS: UMECLIDINIUM/VILANTEROL 62.5/25MCG 7 PUFFS/INHALER INH SCH (09:11)
[2021-06-14] MEDS: DICLOFENAC SOD 1% GEL 100 GM TUBE EXT SCH ×2 (09:11→20:57)
[2021-06-14] MEDS: ENOXAPARIN INJ 40 MG/0.4 ML SYR SQ SCH ×2 (09:11→20:57)
--- NOTE | 2021-06-14 13:39 | Hospitalist Progress Note ---
Date of Service June 14, 2021 Assessment & Plan (1) Asymptomatic hypertensive urgency: Plan: Hypertensive Urgency H/O Noncompliance Head CT-no acute intracranial findings Continue amlodipine 10 mg daily, lisinopril 40 mg daily, Bumex 1 mg daily Coreg switched to labetalol 100 mg twice daily Continue hydralazine 20 mg BID BP now controlled Rectal bleed Likely secondary to hemorrhoids No further episodes, Hgb stable Unvaccinated for COVID 19 Patient received J & J vaccine on 05/16 Functional disability Refused Rehab placement last admission Patient awaiting placement due to not being able to properly care for himself at home based on chart review previous providers and case management conversations with patient and family. However, patient is asking about possible discharge home today. He does understand the risk of going home if not able to fully care for himself. After conversations with patient, he is open to staying for now while the case preparer and liner works out possible discharge home. CM notified. CM discussed with patient's family. They are concerned about patient being discharged home Will continue to encourage patient to go to SNF as previously planned Right wrist pain Hx of osteo, abscess and s/p surg. debridement in December w/ Dr. Stephens seems to be well healed, no WBC elevation, patient afebrile R wrist XR shows significant arthritis Ortho consulted - don't believe any infectious process, also don't recommend steroid at this time d/t hx of significant infection and s/p surgery Continue right wrist brace Chronic joint pain History of arthritis ESR and uric acid elevated Completed prednisone taper course Case discussed by previous Provider with OP Rheumatology Continue allopurinol 300mg daily On as needed tramadol, diclofenac gel Needs follow-up with rheumatology upon discharge Chronic diastolic heart failure EF 60 to 65%, TTE 2020 Appears euvolemic Continue Bumex CAD Continue statin, beta-iglesia COPD FRANCIS CPAP intolerance Past tobacco use No signs of acute exacerbation Continue home inhalers DM II on oral medications Last HbA1c 6.18 April 2021 Continue insulin therapy while hospitalized BSG stable Chronic anemia Hb at baseline Continue iron replacement DVT Px: SQ Lovenox Disposition: SNF pending vs home with HH Family: Mr. Hamlet Cheung, contact # [phone]. Ms. Bernice Mathias, contact #[phone]. Admission and Anticipated Discharge Date Admission Date: May 14, 2021 Subjective Patient seen and examined Per previous providers and CM's discussions with patient and family, patient is not able to care for self at home Also based on PT/OT evaluation, patient needs SNF Patient complained only of chronic knee pain He denied all other complaints Stated he will like to be discharged home. Review of Systems Review of Systems: All systems reviewed and unremarkable except as above Physical Exam Constitutional: + well hydrated and + obese; no acute distress Eyes: PERRL, conjunctivae normal, anicteric sclerae ENMT: external ear and nose normal, oropharynx normal Respiratory: normal respiratory effort, lungs clear to auscultation Cardiovascular: Rate/Rhythm: regular rate and regular rhythm S1`S2 Gastrointestinal (Abdomen): normal bowel sounds, soft, nontender, no hepatosplenomegaly Musculoskeletal: Trace pedal edema Neurologic: PERRL, EOMI, accommodation nl, no face palsy, no dysarthria Psychiatric: A+Ox3, euthymic affect Results & Data Results & Data ([facility]) Vital Signs (Past 12 Hours) Vital Signs Temp Pulse Resp BP Pulse Ox 06/14/21 07:16 36.5 C 63 16 124/73 92 Laboratory Results Abnormal lab results 06/13/21 06/14/21 06/14/21 Range/Units 20:40 05:47 05:47 RBC 3.68 L (4.7-6.1) M/uL Hgb 9.9 L (14.0-18.0) g/dL Hct 31.5 L (42-52) % MCHC 31.4 L (32-36) g/dL RDW Std Deviation 55.1 H (36.4-46.3) fL RDW Coeff of Xin 17.7 H (11.5-14.5) % BUN 27 H (7-18) mg/dl Glucose 132 H (70-99) mg/dl POC Glucose 117 H (70-99) mg/dl 06/14/21 06/14/21 Range/Units 07:51 11:49 RBC (4.7-6.1) M/uL Hgb (14.0-18.0) g/dL Hct (42-52) % MCHC (32-36) g/dL RDW Std Deviation (36.4-46.3) fL RDW Coeff of Xin (11.5-14.5) % BUN (7-18) mg/dl Glucose (70-99) mg/dl POC Glucose 117 H 136 H (70-99) mg/dl
[2021-06-14] MEDS: ATORVASTATIN 40 MG TAB PO SCH (20:57)
[2021-06-14] MEDS: MONTELUKAST SODIUM 10 MG TABLET PO SCH (20:58)
[2021-06-15] MEDS: UMECLIDINIUM/VILANTEROL 62.5/25MCG 7 PUFFS/INHALER INH SCH (08:33)
[2021-06-15] MEDS: INSULIN GLARGINE SOLOSTAR 100 UNITS/ML 3 ML PEN SC SCH (08:33)
[2021-06-15] MEDS: FERROUS SULFATE 325 MG TAB PO SCH (08:34)
[2021-06-15] MEDS: LABETALOL HCL 100 MG TAB PO SCH (08:34)
[2021-06-15] MEDS: BUMETANIDE 1 MG TAB PO SCH (08:34)
[2021-06-15] MEDS: hydrALAZINE 10 MG TAB PO SCH (08:34)
[2021-06-15] MEDS: ENOXAPARIN INJ 40 MG/0.4 ML SYR SQ SCH (08:34)
[2021-06-15] MEDS: PANTOprazole 40 MG TAB PO SCH (08:34)
[2021-06-15] MEDS: TAMSULOSIN HCL 0.4 MG CAP PO SCH (08:34)
[2021-06-15] MEDS: lisinopril 40 MG TAB PO SCH (08:34)
[2021-06-15] MEDS: GABAPENTIN 100 MG CAP PO SCH ×2 (08:34→13:16)
[2021-06-15] MEDS: amLODIPine BESYLATE 5 MG TAB PO SCH (08:34)
[2021-06-15] MEDS: allopurinoL 100 MG TAB PO SCH (08:34)
[2021-06-15] MEDS: DULoxetine HCL 60 MG CAP PO SCH (08:34)
[2021-06-15] MEDS: DICLOFENAC SOD 1% GEL 100 GM TUBE EXT SCH (08:35)
[2021-06-15] MEDS: INSULIN ASPART PER UNIT SC SCH ×2 (08:42→13:15)
[2021-06-15] MEDS: POTASSIUM CHLORIDE CRTAB 20 MEQ TABCR PO SCH (08:42)
[2021-06-15] MEDS: SERTRALINE HCL 100 MG TABLET PO SCH (13:16)
--- NOTE | 2021-06-15 14:10 | Discharge Summary ---
Date of Service June 15, 2021 Admission HPI Per Admitting Provider History obtained from patient, family, and records. Patient is a fair historian. Medical history significant for chronic diastolic heart failure (EF 60 to 65%, TTE 2020), CAD as per records, hypertension, hyperlipidemia, COPD, FRANCIS/CPAP intolerance, DM2 on oral medications, mood disorder, chronic anemia (baseline hemoglobin of 10), medication noncompliance as per family, past tobacco abuse. Recurrent monthly admissions since November 2020. Last confinement May 01 to May 10, 2021 for uncontrolled hypertension attributed to medication compliance. Rehab recommended on discharge but patient adamantly refused as per documentation. Patient did not feel well the last 2 days. Headache, nausea, usual abdominal discomfort with poor appetite. Patient not sure about home medications he needs to take. Patient has not always been compliant with medication regimen/PCP visits even before hospital confinements in the last year starting with COVID-19 illness. As per patient sister, patient likely incapable of knowing what medications to take and why he needs to do it. Patient has not been in touch with family since discharge from the hospital. No PCP visits. Patient brought to the ER for evaluation. Patient to consider rehab placement as per patient conversation with ER provider. Medical History as above Surgical History : Cataract, knee surgery Family History : Heart disease Personal/Social history : Past tobacco abuse, no EtOH intake, lives alone Admission Exam Per Admitting Provider GENERAL: Comfortable, morbidly obese, oriented to month, no respiratory distress SKIN: Pallor , warm HEENT: Pale palpebral conjunctivae, no ptosis, dry buccal mucosa NECK : Supple, short neck, no tenderness CHEST : Decreased breath sounds , no tenderness HEART : RRR, no obvious murmurs ABDOMEN: Some distention, nontender EXTREMITIES : Minimal LE swelling, no LE tenderness, no other conspicuous deformities noted NEUROLOGIC : Coherent, intermittent lethargy during encounter, no facial asymmetry, gait and stance not assessed Principal Diagnosis Hypertensive urgency Functional disability Discharge Exam Constitutional + well hydrated and + obese; no acute distress Eyes PERRL, conjunctivae normal, anicteric sclerae ENMT external ear and nose normal, oropharynx normal Respiratory normal respiratory effort, lungs clear to auscultation Cardiovascular Rate/Rhythm: regular rate and regular rhythm S1 S2 Gastrointestinal (Abdomen) normal bowel sounds, soft, nontender, no hepatosplenomegaly Musculoskeletal Trace pedal edema Neurologic PERRL, EOMI, accommodation nl, no face palsy, no dysarthria Psychiatric A+Ox3, euthymic affect Discharge Data Allergies Allergy/AdvReac Type Severity Reaction Status Date / Time No Known Allergies Allergy Verified 05/12/21 22:22 Consultations 05/12/21 21:53 ED Decision to Admit Stat 05/18/21 09:18 Consult Orthopedic Surgery Routine Ordered Studies 05/12/21 20:04 CT head/brain wo con Stat Hospital Course (1) Hypertensive urgency: Hypertensive Urgency H/O Noncompliance Head CT-no acute intracranial findings Continue amlodipine 10 mg daily and Bumex 1 mg daily Lisinopril was increased to 40mg daily and hydralazine started Coreg switched to labetalol 100 mg twice daily BP better controlled Patient received J & J vaccine for COVID on 05/16 Functional disability Refused Rehab placement last admission Patient is not able to properly care for himself at home based on chart review previous providers and case management conversations with patient and family. He was initially agreeable to placement. However, patient had difficulty getting placed hence his prolonged hospital stay He decided to be discharged home against medical advise CM set up home health All meds sent to pharm per his request Right wrist pain Hx of osteo, abscess and s/p surg. debridement in December w/ Dr. Stephens seems to be well healed, no WBC elevation, patient afebrile R wrist XR shows significant arthritis Ortho ealuated and did not believe any infectious process, Chronic joint pain History of arthritis ESR and uric acid elevated Completed prednisone taper course Case discussed by previous Provider with OP Rheumatology Continue allopurinol 300mg daily Needs follow-up with rheumatology upon discharge Chronic diastolic heart failure EF 60 to 65%, TTE 2020 Continue Bumex CAD Continue statin, beta-iglesia COPD FRANCIS CPAP intolerance Past tobacco use No signs of acute exacerbation Continue home inhalers DM II on oral medications Last HbA1c 6.18 April 2021 Continue home meds Chronic anemia Hb at baseline Continue iron replacement Total Time Total Time Spent Total Time Spent (In Minutes): 50 Total Time Includes: Examination of the Patient, Discharge Planning, Medication Reconciliation and Other Discharge Plan Discharge Items Patient Disposition: Home - Home Health Services Reason For Visit: Feeling unwell Discharge Diagnosis: Hypertensive urgency Functional disability Activity: As commented below Activity Comment: Per physical therapist recommendations Non-emergency contact: Primary Care Provider Call non-emergency contact if: you have any medication questions and your symptoms worsen Follow-up/Referrals: Comfort Almanzar PA-C [Primary Care Provider] - 06/28/21 10:30 am Diet: Carb Consistent or DM2 and Heart Healthy Addtl Attending Provider Instructions: Mr Cheung You came to the hospital for feeling unwell. You were evaluated and noted to have poorly controlled hypertension This was managed with medications. It is very important that you take all medications as prescribed. You have ambulatory dysfunction and longterm rehab was recommended. You had a prolonged hospital stay while waiting for placement. However, you changed your mind and wants to be discharged home. You are still not able to care for yourself but insisted on getting discharged AGAINST MEDICAL ADVICE. Please ensure follow up with your Primary Doctor Pending Studies at Discharge: No Stand-Alone Forms: My [facility] [employer], Smoking Cessation Medications and DC Order Prescriptions: New hydralazine 10 mg Tablet 20 mg PO BID Qty: 60 RF: 0 labetalol 100 mg Tablet 100 mg PO BID Qty: 60 RF: 0 lisinopril [Zestril] 40 mg Tablet 40 mg PO DAILY Qty: 30 RF: 0 diclofenac sodium [Voltaren Arthritis Pain] 1 % Gel 4 g EXT BID Qty: 100 RF: 0 allopurinol 300 mg tablet 300 mg PO DAILY Qty: 30 RF: 0 Continued polyethylene glycol 3350 [Miralax] 17 gram Powder In Packet 17 g PO DAILY PRN (Reason: Constipation) RF: 0 (DME) blood-glucose meter [Gluco Navii Glucose Monitor] Kit See Rx Instructions .Route Qty: 1 RF: 0 (DME) Gluco Navii Test Strip Strip See Rx Instructions .Route Qty: 50 RF: 0 (DME) lancets Misc See Rx Instructions .Route Qty: 100 RF: 0 atorvastatin 40 mg Tablet 40 mg PO HS Qty: 30 RF: 0 metformin 500 mg tablet 500 mg PO BIDWMEAL Qty: 60 RF: 0 acetaminophen [Tylenol] 325 mg Tablet 650 mg PO Q4 PRN (Reason: PAIN , SCALE 1-3) Qty: 30 RF: 0 carvedilol 12.5 mg tablet 12.5 mg PO BID Qty: 60 RF: 0 sertraline [Zoloft] 100 mg Tablet 100 mg PO DAILY Qty: 30 RF: 0 amlodipine [Norvasc] 5 mg Tablet 10 mg PO DAILY Qty: 60 RF: 0 potassium chloride 20 mEq tablet,ER particles/crystals 20 meq PO DAILY Qty: 30 RF: 0 tamsulosin [Flomax] 0.4 mg Capsule 0.8 mg PO DAILY Qty: 30 RF: 0 pantoprazole 40 mg tablet,delayed release (DR/EC) 40 mg PO DAILY Qty: 30 RF: 0 docusate sodium [Stool Softener] 100 mg Capsule 100 mg PO BID PRN (Reason: Constipation) Qty: 60 RF: 0 bumetanide 1 mg tablet 1 mg PO DAILY Qty: 30 RF: 0 montelukast [Singulair] 10 mg Tablet 10 mg PO HS Qty: 30 RF: 0 gabapentin 100 mg capsule 200 mg PO TID Qty: 180 RF: 0 albuterol sulfate [Ventolin HFA] 90 mcg/actuation Hfa Aerosol Inhaler 2 puff INHALATION QID PRN (Reason: Shortness Of Breath) Qty: 8.5 RF: 0 ferrous sulfate 325 mg (65 mg iron) Tablet,Delayed Release (Dr/Ec) 325 mg PO BIDM Qty: 14 RF: 0 duloxetine 60 mg Capsule,Delayed Release(Dr/Ec) 60 mg PO DAILY Qty: 30 RF: 0 Anoro Ellipta 62.5-25 mcg/actuation Blister With Device 1 inh INHALATION DAILY Qty: 14 RF: 0 Discontinued senna 8.6 mg Capsule 8.6 mg PO DAILY PRN (Reason: Constipation) RF: 0 oxycodone [Roxicodone] 5 mg tablet 5 mg PO Q12H PRN (Reason: Breakthrough Pain) 5 Days Qty: 10 RF: 0 lisinopril 30 mg tablet 30 mg PO DAILY Qty: 7 RF: 0 Discharge Orders: Discharge Order (Routine); Ordered 06/15/21 Ordered By: Aaliyah Jang/Other Patient Handouts: Managing Type 2 Diabetes, How to Check Your Blood Sugar Admission Data Admit Date/Time: 05/14/21 11:12 Attending Provider: Aaliyah Gonzalez I. Admit Provider: Olu Melissa Primary Care Provider: Comfort Almanzar Other Providers: [facility] ; [facility] ; [facility] ; Vikram Montalvo ; Olu Melissa ; Jarod Stephens ; Sarah Beth Villafana ; [place] ; [facility] Other Interventions: Discharge Summary Assessment (RN) Last Done: 06/15/21 14:09
== END 2021-06-15 16:31 | disposition home health service (06) | DRG 305 ==
LOC: EDINP 17:06 → ED 17:06 → SUATTDRO 23:50 → EDINP 05-13 02:12 → SUATTDRO 05-14 11:12 → 2N 05-16 16:46 → 3E 05-20 01:18

== ENCOUNTER 2021-07-08 17:34 | Observation (INO) ==
--- NOTE | 2021-07-08 17:47 | Emergency Department Note ---
Impression & Plan Rectal bleeding, Anemia, Leukocytosis, Weakness ED Provider Note NAME: WILVER THAO AGE: 66 SEX: M : 1955 ARRIVES VIA: Ambulance INFORMANT: Patient, ED PROVIDER(S): Montrell Villegas MD Chief Complaint: Weakness, shortness of breath HPI: Patient presents from home and resides in [place] due to concern for patient's respiratory status. The patient does admit to feeling weak. Patient states he was told he may be having some trouble breathing but states that he has chronic shortness of breath which is fairly unchanged. The patient believes that he is taking his medications as prescribed. Patient does have home health. Patient denies any fevers chills or chest pains. Patient denies any abdominal pain nausea vomiting. The patient denies any lower extremity swelling which is changed from prior but does have chronic leg swelling. Patient reportedly was having some bright red blood per rectum. The patient denies taking any blood thinning medications. Patient believes he is vaccinated. The patient will occasionally drink a sixpack and last drank 3 days ago. ROS: See HPI for pertinent positives and negatives. A total of 10 systems were reviewed and otherwise negative. Past medical history: See below Surgical history: See below Social history: See below Physical Exam: GENERAL: Disheveled in appearance, NAD, wearing a mask, non-toxic. EYE EXAM: Normal conjunctiva. PERRL, no anisocoria and EOM's grossly intact w/o pain. NECK: Supple, no nuchal rigidity, no adenopathy, non-tender. No signs of meningismus. LUNGS: Clear to auscultation. Normal chest wall mechanics. HEART: NSR, no MRG. ABDOMEN: Abdomen soft, non-tender, normo-active bowel sounds, no masses, no rebound or guarding. BACK: No CVA TTP. SKIN: No rashes and no bruising. UPPER EXTREMITIES: Upper extremities are grossly normal. LOWER EXTREMITIES: Grossly normal, trace pretibial edema but without asymmetry or calf pain. Chronic venous stasis changes noted, compartments are soft and no temperature difference between the bilateral lower extremities. NEURO EXAM: Awake and alert, follows basic commands, cranial nerves II-XII grossly intact, normal speech, moves all 4 extremities on command w/o issue. Differential diagnoses: Infection, dehydration, metabolic abnormality, hypo/hyperglycemia, electrolyte disturbance, anemia, hypoxia, cardiac sources, intracerebral event, toxicologic, neurologic, as well as other pathologies. Course: Patient was seen and evaluated the bedside. Full history physical exam was performed. EKG interpreted by me Sinus with PACs, right bundle branch block, rate of 87, wide QRS, left axis deviation. Imaging Studies: See Below Cardiac monitoring: An order was placed for continuous cardiac monitoring. The monitor shows a rate of 82 with sinus rhythm. MDM: Patient is a poor historian and seems to have a poor grasp of his overall medical history. Blood work was obtained and the patient was started on a PPI bolus and drip given concern for bright red blood per rectum. Patient is white count of 15 was started on Zosyn. The patient's hemoglobin was 12 was. Normal platelet count. Patient does not take any blood thinner medication. VBG is unremarkable. BP slightly elevated. Troponin is detectable but not elevated. Urinalysis does not show evidence of obvious infection. Covid negative. Chest x-ray with scarring. CT abdomen pelvis was ordered. CT showed asymmetric wall thickening enhancement of the rectum which could represent malignancy. Prostatomegaly was noted but no evidence of bowel obstruction or pneumoperitoneum. Given the patient's living on his own and being a fairly poor historian with new onset rectal bleeding with the possibility of malignancy I did recommend the patient stay for inpatient treatment. I did speak with the on-call hospitalist and the patient was admitted to the medicine service. Past Med/Surg History Medical History Abnormal posture Ambulatory dysfunction Chronic diastolic CHF (congestive heart failure) Chronic respiratory failure with hypoxia Coronary artery disease Depression Diabetes mellitus, type II Gout History of blood transfusion History of COVID-19 Hyperlipidemia Hypertension Mood disorder Morbid obesity FRANCIS (obstructive sleep apnea) Septic arthritis Ventricular tachycardia Wrist arthritis Wrist arthritis Surgical History Cataract extraction status, unspecified eye H/O knee surgery History of incision and drainage Family History Other Throat cancer Social History Smoking Status: Current every day smoker Tobacco Type: Cigarettes Second Hand Exposure: Yes (Pts father); Hx Alcohol Use: No Hx Substance Use: No Preferred Language: Tajik Communication Ability: Effective [employer] Supervisor Required: No Beliefs That Will Affect Care: None marital status: Single Current Living Situation: Alone Current Living Situation Comment: [facility] How many Children do You have: 0 Feels Safe at Home: Yes Assistive Devices: Walker Allergies Allergies Allergy/AdvReac Type Severity Reaction Status Date / Time No Known Allergies Allergy Verified 07/08/21 19:04 Home Meds Home Medications Medication Instructions Recorded Confirmed polyethylene glycol 3350 17 gram 17 g PO DAILY PRN 11/29/20 07/08/21 oral powder packet (Miralax) Previous Rx's Medication Instructions Recorded blood sugar diagnostic (Gluco #50 ea 05/09/21 Navii Test Strip) blood-glucose meter (Gluco Navii #1 ea 05/09/21 Glucose Monitor) lancets #100 ea 05/09/21 acetaminophen 325 mg tablet 650 mg PO Q4 PRN #30 tab 06/15/21 (Tylenol) albuterol sulfate 90 mcg/actuation 2 puff INHALATION QID PRN #8.5 g 06/15/21 aerosol inhaler (Ventolin HFA) allopurinol 300 mg tablet 300 mg PO DAILY #30 tab 06/15/21 amlodipine 5 mg tablet (Norvasc) 10 mg PO DAILY #60 tab 06/15/21 atorvastatin 40 mg tablet 40 mg PO HS #30 tab 06/15/21 bumetanide 1 mg tablet 1 mg PO DAILY #30 tab 06/15/21 carvedilol 12.5 mg tablet 12.5 mg PO BID #60 tab 06/15/21 diclofenac sodium 1 % topical gel 4 g EXT BID #100 g 06/15/21 (Voltaren Arthritis Pain) docusate sodium 100 mg capsule 100 mg PO BID PRN #60 cap 06/15/21 (Stool Softener) duloxetine 60 mg capsule,delayed 60 mg PO DAILY #30 cap 06/15/21 release ferrous sulfate 325 mg (65 mg 325 mg PO BIDM #14 tab 06/15/21 iron) tablet,delayed release gabapentin 100 mg capsule 200 mg PO TID #180 cap 06/15/21 hydralazine 10 mg tablet 20 mg PO BID #60 tab 06/15/21 labetalol 100 mg tablet 100 mg PO BID #60 tab 06/15/21 lisinopril 40 mg tablet (Zestril) 40 mg PO DAILY #30 tab 06/15/21 metformin 500 mg tablet 500 mg PO BIDWMEAL #60 tab 06/15/21 montelukast 10 mg tablet 10 mg PO HS #30 tab 06/15/21 (Singulair) pantoprazole 40 mg tablet,delayed 40 mg PO DAILY #30 tab 06/15/21 release potassium chloride 20 mEq 20 meq PO DAILY #30 tab 06/15/21 tablet,extended release(part/cryst) sertraline 100 mg tablet (Zoloft) 100 mg PO DAILY #30 tab 06/15/21 tamsulosin 0.4 mg capsule (Flomax) 0.8 mg PO DAILY #30 cap 06/15/21 umeclidinium 62.5 mcg-vilanterol 1 inh INHALATION DAILY #14 ea 06/15/21 25 mcg/actuation powdr for inhalation (Anoro Ellipta) Results & Data (ED) Vital Signs Vital Signs - 24 hr 07/08/21 17:45 07/08/21 17:53 Temperature 36.8 C Temperature Source Oral Pulse Rate 96 H Respiratory Rate 20 Blood Pressure 200/97 H Blood Pressure Mean 131 Pulse Oximetry 96 96 Oxygen Delivery Method Room Air Room Air Sepsis Recent Fever Within 48 Hours No Sepsis New/Unexplained Change in Mental Status No Sepsis Action Taken by Nursing No Action Required Home Medications Current Medication List: was personally reviewed by me Laboratory Data Attestation: I reviewed the patient's lab results. Result diagrams: 07/08/21 20:13 07/08/21 18:02 Lab Results 07/08/21 07/08/21 07/08/21 Range/Units 18:00 18:02 18:02 WBC 15.86 H (4.8-10.8) K/uL RBC 4.68 L (4.7-6.1) M/uL Hgb 12.6 L (14.0-18.0) g/dL Hct 38.8 L (42-52) % MCV 82.9 (80-100) fL MCH 26.9 (25-34) pg MCHC 32.5 (32-36) g/dL RDW Std Deviation 51.7 H (36.4-46.3) fL RDW Coeff of Xin 16.9 H (11.5-14.5) % Plt Count 272 (130-400) K/uL MPV 10.0 (7.4-10.4) fL Immature Gran % (Auto) 0.3 % Neut % (Auto) 79.9 % Lymph % (Auto) 10.7 % [place] % (Auto) 7.9 % Eos % (Auto) 0.9 % Baso % (Auto) 0.3 % Neut # (Auto) 12.68 H (1.4-6.5) K/uL Lymph # (Auto) 1.70 (1.2-3.4) K/uL [place] # (Auto) 1.25 H (0.11-0.59) K/uL Eos # (Auto) 0.15 (0-0.5) K/uL Baso # (Auto) 0.04 (0-0.2) K/uL Immature Gran # (Auto) 0.04 H (0.00-0.02) K/uL PT (9.0-12.0) Seconds INR (0.9-1.1) VBG pH (7.36-7.41) VBG pCO2 (38-50) mmHg VBG pO2 mmHg VBG HCO3 mmol/L VBG O2 Saturation % VBG Base Excess mEq/L Barometric Pressure mm/Hg Sodium 139 (136-145) mmol/L Potassium 4.0 (3.5-5.1) mmol/L Chloride 106 (98-107) mmol/L Carbon Dioxide 22 (21-32) mmol/L Anion Gap 11 (3-11) BUN 32 H (6-23) mg/dl Creatinine 1.21 (0.6-1.4) mg/dl Est Cr Clr Drug Dosing 94.3 ml/min Est GFR ( Amer) 72.9 ml/min Est GFR (Non-Af Amer) 62.9 ml/min BUN/Creatinine Ratio 26.4 H (10-20) Glucose 131 H (70-99(Fasting)) mg/dl Calcium 8.8 (8.5-10.1) mg/dl Magnesium 1.9 (1.7-2.4) mg/dl Total Bilirubin 0.3 (0.2-1.0) mg/dl AST 14 (13-39) U/L ALT 18 (7-52) U/L Alkaline Phosphatase 173 H (34-104) U/L Troponin I 0.04 (0-0.04) ng/ml B-Natriuretic Peptide (0-100) pg/ml Total Protein 6.1 (6.0-8.3) gm/dl Albumin 3.5 (3.4-5.0) gm/dl Globulin 2.6 (2.5-4.0) gm/dl Albumin/Globulin Ratio 1.3 (0.9-2) TSH (0.300-4.500) uIu/ml Urine Color Yellow Urine Appearance Clear (Clear) Urine pH 6.0 (4.5-7.5) Ur Specific [place] 1.021 (1.000-1.030) Urine Protein 3+ H (Negative) Urine Glucose (UA) Negative (Negative) Urine Ketones Negative (Negative) Urine Blood Trace H (Negative) Urine Nitrite Negative (Negative) Urine Bilirubin Negative (Negative) Urine Urobilinogen Negative (Negative) Ur Leukocyte Esterase Negative (Negative) Urine WBC (Auto) 1-5 (0-5) /hpf Urine RBC (Auto) 0-4 (0-4) /hpf U Hyaline Cast (Auto) 5-10 H (0-5) /lpf U Epithel Cells (Auto) >30 H (0-5) /lpf Urine Bacteria (Auto) Negative (Negative) Ethyl Alcohol mg/dL (<10.0) mg/dl 07/08/21 07/08/21 07/08/21 Range/Units 18:02 18:02 18:02 WBC (4.8-10.8) K/uL RBC (4.7-6.1) M/uL Hgb (14.0-18.0) g/dL Hct (42-52) % MCV (80-100) fL MCH (25-34) pg MCHC (32-36) g/dL RDW Std Deviation (36.4-46.3) fL RDW Coeff of Xin (11.5-14.5) % Plt Count (130-400) K/uL MPV (7.4-10.4) fL Immature Gran % (Auto) % Neut % (Auto) % Lymph % (Auto) % [place] % (Auto) % Eos % (Auto) % Baso % (Auto) % Neut # (Auto) (1.4-6.5) K/uL Lymph # (Auto) (1.2-3.4) K/uL [place] # (Auto) (0.11-0.59) K/uL Eos # (Auto) (0-0.5) K/uL Baso # (Auto) (0-0.2) K/uL Immature Gran # (Auto) (0.00-0.02) K/uL PT (9.0-12.0) Seconds INR (0.9-1.1) VBG pH 7.39 (7.36-7.41) VBG pCO2 42 (38-50) mmHg VBG pO2 38 mmHg VBG HCO3 25 mmol/L VBG O2 Saturation 69.3 % VBG Base Excess 0 mEq/L Barometric Pressure 729.4 mm/Hg Sodium (136-145) mmol/L Potassium (3.5-5.1) mmol/L Chloride (98-107) mmol/L Carbon Dioxide (21-32) mmol/L Anion Gap (3-11) BUN (6-23) mg/dl Creatinine (0.6-1.4) mg/dl Est Cr Clr Drug Dosing ml/min Est GFR ( Amer) ml/min Est GFR (Non-Af Amer) ml/min BUN/Creatinine Ratio (10-20) Glucose (70-99(Fasting)) mg/dl Calcium (8.5-10.1) mg/dl Magnesium (1.7-2.4) mg/dl Total Bilirubin (0.2-1.0) mg/dl AST (13-39) U/L ALT (7-52) U/L Alkaline Phosphatase (34-104) U/L Troponin I (0-0.04) ng/ml B-Natriuretic Peptide 415 H (0-100) pg/ml Total Protein (6.0-8.3) gm/dl Albumin (3.4-5.0) gm/dl Globulin (2.5-4.0) gm/dl Albumin/Globulin Ratio (0.9-2) TSH 2.866 (0.300-4.500) uIu/ml Urine Color Urine Appearance (Clear) Urine pH (4.5-7.5) Ur Specific [place] (1.000-1.030) Urine Protein (Negative) Urine Glucose (UA) (Negative) Urine Ketones (Negative) Urine Blood (Negative) Urine Nitrite (Negative) Urine Bilirubin (Negative) Urine Urobilinogen (Negative) Ur Leukocyte Esterase (Negative) Urine WBC (Auto) (0-5) /hpf Urine RBC (Auto) (0-4) /hpf U Hyaline Cast (Auto) (0-5) /lpf U Epithel Cells (Auto) (0-5) /lpf Urine Bacteria (Auto) (Negative) Ethyl Alcohol mg/dL (<10.0) mg/dl 07/08/21 07/08/21 Range/Units 18:05 18:42 WBC (4.8-10.8) K/uL RBC (4.7-6.1) M/uL Hgb (14.0-18.0) g/dL Hct (42-52) % MCV (80-100) fL MCH (25-34) pg MCHC (32-36) g/dL RDW Std Deviation (36.4-46.3) fL RDW Coeff of Xin (11.5-14.5) % Plt Count (130-400) K/uL MPV (7.4-10.4) fL Immature Gran % (Auto) % Neut % (Auto) % Lymph % (Auto) % [place] % (Auto) % Eos % (Auto) % Baso % (Auto) % Neut # (Auto) (1.4-6.5) K/uL Lymph # (Auto) (1.2-3.4) K/uL [place] # (Auto) (0.11-0.59) K/uL Eos # (Auto) (0-0.5) K/uL Baso # (Auto) (0-0.2) K/uL Immature Gran # (Auto) (0.00-0.02) K/uL PT 9.8 (9.0-12.0) Seconds INR 1.0 (0.9-1.1) VBG pH (7.36-7.41) VBG pCO2 (38-50) mmHg VBG pO2 mmHg VBG HCO3 mmol/L VBG O2 Saturation % VBG Base Excess mEq/L Barometric Pressure mm/Hg Sodium (136-145) mmol/L Potassium (3.5-5.1) mmol/L Chloride (98-107) mmol/L Carbon Dioxide (21-32) mmol/L Anion Gap (3-11) BUN (6-23) mg/dl Creatinine (0.6-1.4) mg/dl Est Cr Clr Drug Dosing ml/min Est GFR ( Amer) ml/min Est GFR (Non-Af Amer) ml/min BUN/Creatinine Ratio (10-20) Glucose (70-99(Fasting)) mg/dl Calcium (8.5-10.1) mg/dl Magnesium (1.7-2.4) mg/dl Total Bilirubin (0.2-1.0) mg/dl AST (13-39) U/L ALT (7-52) U/L Alkaline Phosphatase (34-104) U/L Troponin I (0-0.04) ng/ml B-Natriuretic Peptide (0-100) pg/ml Total Protein (6.0-8.3) gm/dl Albumin (3.4-5.0) gm/dl Globulin (2.5-4.0) gm/dl Albumin/Globulin Ratio (0.9-2) TSH (0.300-4.500) uIu/ml Urine Color Urine Appearance (Clear) Urine pH (4.5-7.5) Ur Specific [place] (1.000-1.030) Urine Protein (Negative) Urine Glucose (UA) (Negative) Urine Ketones (Negative) Urine Blood (Negative) Urine Nitrite (Negative) Urine Bilirubin (Negative) Urine Urobilinogen (Negative) Ur Leukocyte Esterase (Negative) Urine WBC (Auto) (0-5) /hpf Urine RBC (Auto) (0-4) /hpf U Hyaline Cast (Auto) (0-5) /lpf U Epithel Cells (Auto) (0-5) /lpf Urine Bacteria (Auto) (Negative) Ethyl Alcohol mg/dL < 10.0 (<10.0) mg/dl Administered Medications Hydralazine HCl (Hydralazine 10 Mg Tab) 20 mg PO BID ZOHAIB Stop: 08/07/21 20:59 Last Admin: 07/08/21 21:04 Dose: 20 mg Documented by: [id number] Sodium Chloride (Nss) 500 mls @ 50 mls/hr IV .Q10H ONE Stop: 07/09/21 06:55 Last Admin: 07/08/21 22:42 Dose: 50 mls/hr Documented by: [id number] Labetalol HCl (Labetalol Hcl 100 Mg Tab) 100 mg PO BID [facility] Stop: 08/07/21 20:09 Last Admin: 07/08/21 21:04 Dose: 100 mg Documented by: [id number] Discontinued Medications Carvedilol (Carvedilol 12.5 Mg Tab) 12.5 mg PO NOW ONE Stop: 07/08/21 19:28 Last Admin: 07/08/21 20:52 Dose: Not Given Documented by: [id number] Pantoprazole Sodium (Protonix Bolus/Drip) 0 mls @ 1 mls/hr IV ONE STA Stop: 07/08/21 17:53 Last Admin: 07/08/21 20:51 Dose: Not Given Documented by: [id number] Pantoprazole Sodium 40 mg/ (Dextrose) 100 mls @ 20 mls/hr IV Q5H [facility] Stop: 08/07/21 18:14 Last Admin: 07/08/21 20:52 Dose: Not Given Documented by: [id number] Pantoprazole Sodium 80 mg/ (Dextrose) 120 mls @ 400 mls/hr IV NOW ONE Stop: 07/08/21 18:09 Last Admin: 07/08/21 20:51 Dose: Not Given Documented by: [id number] Piperacillin Sod/Tazobactam Sod (Zosyn) 4.5 gm in 120 mls @ 240 mls/hr IV NOW ONE Stop: 07/08/21 18:26 Last Admin: 07/08/21 20:52 Dose: Not Given Documented by: [id number] Thiamine HCl 100 mg/ Syringe 10 mls @ 2 mls/min IV 2000 ONE Stop: 07/08/21 20:04 Last Admin: 07/08/21 20:43 Dose: 2 mls/min Documented by: [id number] Ioversol (Optiray 320 125ml) 120 ml IV ONCE ONE Stop: 07/08/21 20:01 Last Admin: 07/08/21 20:00 Dose: 120 ml Documented by: [id number] Imaging Data Radiologist's Impression: Chest X-Ray 07/08/21 17:52 XR chest 1V portable HISTORY: 66 years-old Male weakness acute weakness COMPARISON: Chest radiograph 06/19/2021, CTA chest 04/29/2021. TECHNIQUE: Portable AP view of the chest FINDINGS: Cardiac silhouette is enlarged. No pneumothorax, pleural effusion or overt pulmonary edema. There is unchanged right lung volume loss with right greater than left bilateral interstitial reticular opacities. No pneumothorax, large pleural effusion or lobar airspace consolidation. Degenerative changes of the shoulders and spine. IMPRESSION: 1. Cardiomegaly without acute process. 2. Right lung volume loss with right greater than left interstitial opacities redemonstrated suggestive of scarring. ACT 112: Negative or not required by law. The above report was generated using voice recognition software. It may contain grammatical, syntax or spelling errors. Electronically signed by: Jonathon Oswald M.D. 07/08/2021 6:22 PM Abdomen/Pelvis CT 07/08/21 19:[address] WITH IV CONTRAST CT DOSE: 3852.49 mGy.cm HISTORY: Acute generalized abdominal pain with leukocytosis and rectal bleeding ab pain, wbc 15, rectal bleeding TECHNIQUE: Multiaxial CT images of the abdomen and pelvis were performed following the IV administration of 120 cc of Optiray, A dose lowering technique was utilized adhering to the principles of ALARA. COMPARISON STUDY: None. FINDINGS: Moderate cardiomegaly. Mild bibasilar atelectasis. Mildly motion degraded exam. No pneumatosis or pneumoperitoneum. The spleen, pancreas, adrenal glands, contracted gallbladder and liver appear unremarkable. lobulations of the kidneys. There are a few cysts of the left kidney measuring up to 2.7 cm. 10 mm nonobstructing calculus of the inferior pole left kidney. No ureteral calculi or hydronephrosis. Prostamegaly. Partially decompressed urinary bladder. Atherosclerosis of the aorta without aneurysm. No adenopathy. There is no bowel obstruction. There is a focal area of irregular wall thickening and enhancement involving the left lateral and posterior rectum measuring up to 3.2 x 1.3 x 3 cm. The caudal extent is approximately 7.5 cm from the anal verge. No perirectal adenopathy or inflammatory stranding. Mild fecal retention. Normal appendix. Mild colonic diverticulosis. No ascites or mesenteric inflammation. Unremarkable soft tissues. Degenerative changes of the spine, pelvis and hips. IMPRESSION: 1. There is a 3.2 cm focus of asymmetric wall thickening with increased enhancement within the rectum approximately 7.5 cm from the anal verge. This finding should be correlated with colonoscopy to exclude malignancy. 2. No bowel obstruction or pneumoperitoneum. 3. No adenopathy identified. 4. Prostamegaly. 5. 10 mm nonobstructing left renal calculus. ACT 112: Negative or not required by law. The above report was generated using voice recognition software. It may contain grammatical, syntax or spelling errors. Electronically signed by: Jonathon Oswald M.D. 07/08/2021 8:[address] 07/08/21 19:47 CT head/brain wo con CLINICAL HISTORY: 66 years-old Male with ams. Acutely altered mental status TECHNIQUE: Multiple axial CT images of the head were obtained without contrast. A dose lowering technique was utilized adhering to the principles of ALARA. COMPARISON: Head CT 05/12/2021 FINDINGS: No acute intracranial hemorrhage, midline shift, intracranial mass, h ydrocephalus, territorial ischemia or abnormal extra-axial collection. Mild involutional changes. Cerebral vascular calcifications. The calvarium is intact. Unchanged mild mucosal thickening of the left sphenoid sinus. The mastoid air cells are clear. Bilateral jairon bullosa. Prior bilateral lens repair. IMPRESSION: No acute intracranial abnormality. ACT 112: Negative or not required by law. The above report was generated using voice recognition software. It may contain grammatical, syntax or spelling errors. Electronically signed by: Jonathon Oswald M.D. 07/08/2021 8:17 PM Discharge Plan Visit Data Chief Complaint: Weakness ED Provider: Montrell Villegas Discharge Problem: Rectal bleeding, Anemia, Leukocytosis, Weakness Patient Disposition: Admitted As Inpatient Discharge Instructions Interventions: ED Discharge Assessment Last Done: 07/08/21 22:10
[2021-07-08] MEDS ORDERED: PANTOPRAZOLE BOLUS/DRIP 1 EA IV STA (17:52)
[2021-07-08] MEDS ORDERED: PANTOprazole 80 MG in DEXTROSE 5% 100 ML IV ONE (17:52)
[2021-07-08] MEDS ORDERED: PIPERACILLIN/TAZOBACTAM 4.5 GM/120 ML BAG IV ONE (17:57)
[2021-07-08] MEDS ORDERED: PIPERACILL/TAZOBAC CONSULT ACTIVE PRN (17:57)
[2021-07-08 18:12] LABS: Oxygen Saturation VBG 69.3 %; pH VBG 7.39 (7.36-7.41)
[2021-07-08 18:13] LABS: Basophils # (auto) 0.04 K/uL (0-0.2); Basophils % (auto) 0.3 %; Eosinophils # (auto) 0.15 K/uL (0-0.5); Eosinophils % (auto) 0.9 %; Hematocrit (blood only) 38.8 % (42-52); Hemoglobin 12.6 g/dL (14.0-18.0); Immature Granulocytes # (auto) 0.04 K/uL (0.00-0.02); Immature Granulocytes % (auto) 0.3 %; Lymphocytes % (auto) 10.7 %; Mean Corpuscular Hemoglobin 26.9 pg (25-34); Mean Corpuscular Hgb Conc 32.5 g/dL (32-36); Mean Corpuscular Volume 82.9 fL (80-100); Monocytes # (auto) 1.25 K/uL (0.11-0.59); Monocytes % (auto) 7.9 %; Neutrophils # (auto) 12.68 K/uL (1.4-6.5); Neutrophils % (auto) 79.9 %; Platelet Count 272 K/uL (130-400); RDW Coefficient of Variation 16.9 % (11.5-14.5); RDW Standard Deviation 51.7 fL (36.4-46.3); Red Blood Count 4.68 M/uL (4.7-6.1); White Blood Count 15.86 K/uL (4.8-10.8)
[2021-07-08] MEDS ORDERED: PANTOprazole 40 MG in DEXTROSE 5% 100 ML IV SCH (18:15)
--- NOTE | 2021-07-08 18:23 | XRay Report ---
XR chest 1V portable HISTORY: 66 years-old Male weakness acute weakness COMPARISON: Chest radiograph 06/19/2021, CTA chest 04/29/2021. TECHNIQUE: Portable AP view of the chest FINDINGS: Cardiac silhouette is enlarged. No pneumothorax, pleural effusion or overt pulmonary edema. There is unchanged right lung volume loss with right greater than left bilateral interstitial reticular opacit ies. No pneumothorax, large pleural effusion or lobar airspace consolidation. Degenerative changes of the shoulders and spine. IMPRESSION: 1. Cardiomegaly without acute process. 2. Right lung volume loss with right greater than left interstitial opacities redemonstrated suggesti ve of scarring. ACT 112: Negative or not required by law. The above report was generated using voice recognition software. It may contain grammatical, syntax o r spelling errors. Electronically signed by: Jonathon Oswald M.D. 07/08/2021 6:22 PM
[2021-07-08 18:44] LABS: Albumin Globulin Ratio 1.3 (0.9-2); Albumin Level 3.5 gm/dl (3.4-5.0); BUN Creatinine Ratio 26.4 (10-20); Bilirubin,Total 0.3 mg/dl (0.2-1.0); Calcium 8.8 mg/dl (8.5-10.1); Creatinine Clr Calc Pharmacy 94.3 ml/min; Est GFR (African American) 72.9 ml/min; Est GFR (Non-African American) 62.9 ml/min; Globulin 2.6 gm/dl (2.5-4.0); Magnesium 1.9 mg/dl (1.7-2.4); Total Protein 6.1 gm/dl (6.0-8.3)
[2021-07-08 18:46] LABS: Troponin I 0.04 ng/ml (0-0.04)
[2021-07-08] MEDS ORDERED: carvediloL 12.5 MG TAB PO ONE (19:27)
[2021-07-08 19:28] LABS: Appearance Urine Clear (Clear); Bacteria Urine Automated Negative (Negative); Bilirubin Urine Negative (Negative); Blood Urine Trace (Negative); Color Urine Yellow; Epithelial Cell Urine Auto >30 /lpf (0-5); Glucose Urine UA Negative (Negative); Ketones Urine Negative (Negative); Leukocyte Esterase Urine Negative (Negative); Nitrite Urine Negative (Negative); Protein Urine 3+ (Negative); RBC Urine Automated 0-4 /hpf (0-4); Specific Gravity Urine 1.021 (1.000-1.030); Urobilinogen Urine Negative (Negative)
--- NOTE | 2021-07-08 19:49 | History & Physical Report ---
Date of Service July 08, 2021 Assessment & Plan (1) Uncontrolled hypertension: Plan: Hypertensive urgency Secondary to medication noncompliance/functional disability Possible alcohol withdrawal contributory L GIB Secondary to rectal mass rule out malignancy Patient currently hemodynamically stable Encephalopathy Possible alcohol withdrawal underlying cognitive impairment/personality disorder Patient known to have longstanding poor insight about his medical issues and requisite care. Patient currently disoriented. Chronic diastolic heart failure (EF 60 to 65%, TTE 2020), equivocal volume status CAD as per records COPD, not in acute exacerbation FRANCIS, CPAP intolerance DM2, on oral medications, well-controlled as of recent hemoglobin A1c of 6.18 April 2021 Chronic anemia, hemoglobin better than baseline Past tobacco abuse OBS Med telemetry Facilitate home BP meds AWSS, DT precautions Follow H&H, transfuse PRBC if hemoglobin less than 8 and or for symptomatic anemia GI consult Re: L GIB Basal insulin, ISS BG goal 1 10-1 40, carb count coverage PT OT eval Social service RE discharge planning DVT prophylaxis. SCDs Re: GI bleed Full code as per brother, Mr. Hamlet Cheung. He requests updates from providers thru contact # [phone]. (Alternative personnel and payroll technician is patient sister, Miss Bernice Mathias, contact #[phone].) Text document was generated using [employer] voice recognition software. It may contain grammatical or spelling errors. Kindly contact undersigned for clarification of any documentation item in question. History of Present Illness Chief Complaint: They told me to come as per patient Primary Care Provider: Comfort Almanzar PA-C History obtained from patient, family, and records. Patient is an unreliable historian secondary to disorientation. Medical history significant for chronic diastolic heart failure (EF 60 to 65%, TTE 2020), CAD as per records, hypertension, hyperlipidemia, COPD, FRANCIS/CPAP intolerance, DM2 on oral medications, mood disorder, chronic anemia (baseline hemoglobin of 10), medication noncompliance as per family, past tobacco abuse. Recurrent monthly admissions since November 2020. Last confinement May 14, 2021 to June 15, 2021 for hypertensive urgency and functional disability. Patient deemed to be incapable of caring for self at home. Prolonged hospital stay secondary to difficult placement. Patient signed out AGAINST MEDICAL ADVICE. Patient deemed to be competent although making poor decisions as per casework manager note. Home nursing visits to be set up. Recent ER visit 3 weeks ago for uncontrolled hypertension. Patient not sure if he is taking his meds. Patient discharged back home. Patient brought to ER for evaluation tonight because he said his home nurses told him to get checked out. Noted to be congested. Patient denies unusual headache, chest pain, shortness of breath symptoms. Rectal bleeding without abdominal pain complaints. Admits to drinking alcohol heavily from time to time. Medical Historyas above Surgical History : Cataract, knee surgery Family History : Heart disease Personal/Social history : Past tobacco abuse, no EtOH intake, lives alone Allergies Allergy/AdvReac Type Severity Reaction Status Date / Time No Known Allergies Allergy Verified 07/08/21 19:04 Home Medications Medication Instructions Recorded Confirmed Type polyethylene glycol 3350 17 gram 17 g PO DAILY PRN 11/29/20 07/08/21 History oral powder packet (Miralax) blood sugar diagnostic (Gluco #50 ea 05/09/21 05/22/21 Rx Navii Test Strip) blood-glucose meter (Gluco Navii #1 ea 05/09/21 05/22/21 Rx Glucose Monitor) lancets #100 ea 05/09/21 05/22/21 Rx acetaminophen 325 mg tablet 650 mg PO Q4 PRN #30 tab 06/15/21 07/08/21 Rx (Tylenol) albuterol sulfate 90 mcg/actuation 2 puff INHALATION QID PRN #8.5 g 06/15/21 07/08/21 Rx aerosol inhaler (Ventolin HFA) allopurinol 300 mg tablet 300 mg PO DAILY #30 tab 06/15/21 07/08/21 Rx amlodipine 5 mg tablet (Norvasc) 10 mg PO DAILY #60 tab 06/15/21 07/08/21 Rx atorvastatin 40 mg tablet 40 mg PO HS #30 tab 06/15/21 07/08/21 Rx bumetanide 1 mg tablet 1 mg PO DAILY #30 tab 06/15/21 07/08/21 Rx diclofenac sodium 1 % topical gel 4 g EXT BID #100 g 06/15/21 07/08/21 Rx (Voltaren Arthritis Pain) docusate sodium 100 mg capsule 100 mg PO BID PRN #60 cap 06/15/21 07/08/21 Rx (Stool Softener) duloxetine 60 mg capsule,delayed 60 mg PO DAILY #30 cap 06/15/21 07/08/21 Rx release ferrous sulfate 325 mg (65 mg 325 mg PO BIDM #14 tab 06/15/21 07/08/21 Rx iron) tablet,delayed release gabapentin 100 mg capsule 200 mg PO TID #180 cap 06/15/21 07/08/21 Rx hydralazine 10 mg tablet 20 mg PO BID #60 tab 06/15/21 07/08/21 Rx labetalol 100 mg tablet 100 mg PO BID #60 tab 06/15/21 07/08/21 Rx metformin 500 mg tablet 500 mg PO BIDWMEAL #60 tab 06/15/21 07/08/21 Rx montelukast 10 mg tablet 10 mg PO HS #30 tab 06/15/21 07/08/21 Rx (Singulair) pantoprazole 40 mg tablet,delayed 40 mg PO DAILY #30 tab 06/15/21 07/08/21 Rx release potassium chloride 20 mEq 20 meq PO DAILY #30 tab 06/15/21 07/08/21 Rx tablet,extended release(part/cryst) sertraline 100 mg tablet (Zoloft) 100 mg PO DAILY #30 tab 06/15/21 07/08/21 Rx tamsulosin 0.4 mg capsule (Flomax) 0.8 mg PO DAILY #30 cap 06/15/21 07/08/21 Rx umeclidinium 62.5 mcg-vilanterol 1 inh INHALATION DAILY #14 ea 06/15/21 07/08/21 Rx 25 mcg/actuation powdr for inhalation (Anoro Ellipta) lisinopril 30 mg tablet (Zestril) 40 mg PO DAILY 07/09/21 07/09/21 History Past Med/Surg History Medical History Abnormal posture Ambulatory dysfunction Chronic diastolic CHF (congestive heart failure) Chronic respiratory failure with hypoxia Coronary artery disease Depression Diabetes mellitus, type II Gout History of blood transfusion History of COVID-19 Hyperlipidemia Hypertension Mood disorder Morbid obesity FRANCIS (obstructive sleep apnea) Septic arthritis Ventricular tachycardia Wrist arthritis Wrist arthritis Surgical History Cataract extraction status, unspecified eye H/O knee surgery History of incision and drainage Family History Other Throat cancer Social History Smoking Status: Former smoker Tobacco Type: Cigarettes Second Hand Exposure: Yes (Pts father); Hx Alcohol Use: Yes Alcohol type: beer Hx Substance Use: Yes Last Used Substance: Days (ago) Preferred Language: Dutch Communication Ability: Effective Eyelet Operator Required: No Beliefs That Will Affect Care: None marital status: Single Current Living Situation: Alone Current Living Situation Comment: [facility] How many Children do You have: 0 Feels Safe at Home: Yes Safety Concerns: Feels Safe At This Time Assistive Devices: Glasses Review of Systems Review of Systems: Could not be reliably secondary to disorientation Physical Exam Physical Exam: GENERAL: uncomfortable, morbidly obese, disoriented, no respiratory distress SKIN: Pallor, warm HEENT: Pale palpebral conjunctivae, no ptosis, moist buccal mucosa NECK : Supple, short neck, no tenderness CHEST : Decreased breath sounds , no tenderness HEART : RRR, no obvious murmurs ABDOMEN: Some distention, nontender RECTAL : Intact sphincter, gross blood per rectum EXTREMITIES : Minimal LE swelling, no LE tenderness, no other conspicuous deformities noted NEUROLOGIC : Disoriented, no facial asymmetry, gait and stance not assessed Results & Data Results & Data ([facility]) Vital Signs (Past 12 Hours) Vital Signs Temp Pulse Resp BP Pulse Ox 07/08/21 17:53 96 07/08/21 17:45 36.8 C 96 H 20 200/97 H 96 Laboratory Results Laboratory Results WBC 15.86 K/uL (4.8-10.8) H 07/08/21 18:02 RBC 4.68 M/uL (4.7-6.1) L 07/08/21 18:02 Hgb 12.6 g/dL (14.0-18.0) L 07/08/21 18:02 Hct 38.8 % (42-52) L 07/08/21 18:02 MCV 82.9 fL (80-100) 07/08/21 18:02 MCH 26.9 pg (25-34) 07/08/21 18:02 MCHC 32.5 g/dL (32-36) 07/08/21 18:02 RDW Std Deviation 51.7 fL (36.4-46.3) H 07/08/21 18:02 RDW Coeff of Xin 16.9 % (11.5-14.5) H 07/08/21 18:02 Plt Count 272 K/uL (130-400) 07/08/21 18:02 MPV 10.0 fL (7.4-10.4) 07/08/21 18:02 Immature Gran % (Auto) 0.3 % 07/08/21 18:02 Neut % (Auto) 79.9 % 07/08/21 18:02 Lymph % (Auto) 10.7 % 07/08/21 18:02 [place] % (Auto) 7.9 % 07/08/21 18:02 Eos % (Auto) 0.9 % 07/08/21 18:02 Baso % (Auto) 0.3 % 07/08/21 18:02 Neut # (Auto) 12.68 K/uL (1.4-6.5) H 07/08/21 18:02 Lymph # (Auto) 1.70 K/uL (1.2-3.4) 07/08/21 18:02 Ford # (Auto) 1.25 K/uL (0.11-0.59) H 07/08/21 18:02 Eos # (Auto) 0.15 K/uL (0-0.5) 07/08/21 18:02 Baso # (Auto) 0.04 K/uL (0-0.2) 07/08/21 18:02 Immature Gran # (Auto) 0.04 K/uL (0.00-0.02) H 07/08/21 18:02 VBG pH 7.39 (7.36-7.41) 07/08/21 18:02 VBG pCO2 42 mmHg (38-50) 07/08/21 18:02 VBG pO2 38 mmHg 07/08/21 18:02 VBG HCO3 25 mmol/L 07/08/21 18:02 VBG O2 Saturation 69.3 % 07/08/21 18:02 VBG Base Excess 0 mEq/L 07/08/21 18:02 Barometric Pressure 729.4 mm/Hg 07/08/21 18:02 Sodium 139 mmol/L (136-145) 07/08/21 18:02 Potassium 4.0 mmol/L (3.5-5.1) 07/08/21 18:02 Chloride 106 mmol/L (98-107) 07/08/21 18:02 Carbon Dioxide 22 mmol/L (21-32) 07/08/21 18:02 Anion Gap 11 (3-11) 07/08/21 18:02 BUN 32 mg/dl (6-23) H 07/08/21 18:02 Creatinine 1.21 mg/dl (0.6-1.4) 07/08/21 18:02 Est Cr Clr Drug Dosing 94.3 ml/min 07/08/21 18:02 Est GFR ( Amer) 72.9 ml/min 07/08/21 18:02 Est GFR (Non-Af Amer) 62.9 ml/min 07/08/21 18:02 BUN/Creatinine Ratio 26.4 (10-20) H 07/08/21 18:02 Glucose 131 mg/dl (70-99(Fasting)) H 07/08/21 18:02 Calcium 8.8 mg/dl (8.5-10.1) 07/08/21 18:02 Magnesium 1.9 mg/dl (1.7-2.4) 07/08/21 18:02 Total Bilirubin 0.3 mg/dl (0.2-1.0) 07/08/21 18:02 AST 14 U/L (13-39) 07/08/21 18:02 ALT 18 U/L (7-52) 07/08/21 18:02 Alkaline Phosphatase 173 U/L (34-104) H 07/08/21 18:02 Troponin I 0.04 ng/ml (0-0.04) 07/08/21 18:02 B-Natriuretic Peptide 415 pg/ml (0-100) H 07/08/21 18:02 Total Protein 6.1 gm/dl (6.0-8.3) 07/08/21 18:02 Albumin 3.5 gm/dl (3.4-5.0) 07/08/21 18:02 Globulin 2.6 gm/dl (2.5-4.0) 07/08/21 18:02 Albumin/Globulin Ratio 1.3 (0.9-2) 07/08/21 18:02 TSH 2.866 uIu/ml (0.300-4.500) 07/08/21 18:02 Urine Color Yellow 07/08/21 18:00 Urine Appearance Clear (Clear) 07/08/21 18:00 Urine pH 6.0 (4.5-7.5) 07/08/21 18:00 Ur Specific [place] 1.021 (1.000-1.030) 07/08/21 18:00 Urine Protein 3+ (Negative) H 07/08/21 18:00 Urine Glucose (UA) Negative (Negative) 07/08/21 18:00 Urine Ketones Negative (Negative) 07/08/21 18:00 Urine Blood Trace (Negative) H 07/08/21 18:00 Urine Nitrite Negative (Negative) 07/08/21 18:00 Urine Bilirubin Negative (Negative) 07/08/21 18:00 Urine Urobilinogen Negative (Negative) 07/08/21 18:00 Ur Leukocyte Esterase Negative (Negative) 07/08/21 18:00 Urine WBC (Auto) 1-5 /hpf (0-5) 07/08/21 18:00 Urine RBC (Auto) 0-4 /hpf (0-4) 07/08/21 18:00 U Hyaline Cast (Auto) 5-10 /lpf (0-5) H 07/08/21 18:00 U Epithel Cells (Auto) >30 /lpf (0-5) H 07/08/21 18:00 Urine Bacteria (Auto) Negative (Negative) 07/08/21 18:00 Ethyl Alcohol mg/dL < 10.0 mg/dl (<10.0) 07/08/21 18:42 Impressions Chest X-Ray 07/08/21 17:52 XR chest 1V portable HISTORY: 66 years-old Male weakness acute weakness COMPARISON: Chest radiograph 06/19/2021, CTA chest 04/29/2021. TECHNIQUE: Portable AP view of the chest FINDINGS: Cardiac silhouette is enlarged. No pneumothorax, pleural effusion or overt pulmonary edema. There is unchanged right lung volume loss with right greater than left bilateral interstitial reticular opacities. No pneumothorax, large pleural effusion or lobar airspace consolidation. Degenerative changes of the shoulders and spine. IMPRESSION: 1. Cardiomegaly without acute process. 2. Right lung volume loss with right greater than left interstitial opacities redemonstrated suggestive of scarring. ACT 112: Negative or not required by law. The above report was generated using voice recognition software. It may contain grammatical, syntax or spelling errors. Electronically signed by: Jonathon Oswald M.D. 07/08/2021 6:[address] head: No acute intracranial abnormality. CT abdomen pelvis: 1. There is a 3.2 cm focus of asymmetric wall thickening with increased enhancement within the rectum approximately 7.5 cm from the anal verge. This finding should be correlated with colonoscopy to exclude malignancy. 2. No bowel obstruction or pneumoperitoneum. 3. No adenopathy identified. 4. Prostamegaly. 5. 10 mm nonobstructing left renal calculus. EEG as per my interpretation: Rate 85, NSR, LAD, LAFB, RBBB, LVH, diffuse T wave abnormalities
[2021-07-08] MEDS ORDERED: THIAMINE HCL 100 MG in SYRINGE 9 ML IV ONE (20:00)
[2021-07-08] MEDS ORDERED: OPTIRAY 320 125ml IV ONE (20:00)
[2021-07-08] MEDS ORDERED: LABETALOL HCL 100 MG TAB PO SCH (20:10)
[2021-07-08 20:14] LABS: Prothrombin Time 9.8 Seconds (9.0-12.0)
--- NOTE | 2021-07-08 20:19 | CT Scan Report ---
CT head/brain wo con CLINICAL HISTORY: 66 years-old Male with ams. Acutely altered mental status TECHNIQUE: Multiple axial CT images of the head were obtained without contrast. A dose lowering tech nique was utilized adhering to the principles of ALARA. COMPARISON: Head CT 05/12/2021 FINDINGS: No acute intracranial hemorrhage, midline shift, intracranial mass, hydrocephalus, territorial ischem ia or abnormal extra-axial collection. Mild involutional changes. Cerebral vascular calcifications. The calvarium is intact. Unchanged mild mucosal thickening of the left sphenoid sinus. The mastoid a ir cells are clear. Bilateral jairon bullosa. Prior bilateral lens repair. IMPRESSION: No acute intracranial abnormality. ACT 112: Negative or not required by law. The above report was generated using voice recognition software. It may contain grammatical, syntax o r spelling errors. Electronically signed by: Jonathon Oswald M.D. 07/08/2021 8:17 PM
[2021-07-08 20:32] LABS: Hematocrit (blood only) 36.7 % (42-52); Hemoglobin 11.9 g/dL (14.0-18.0)
--- NOTE | 2021-07-08 20:37 | CT Scan Report ---
ABDOMEN AND PELVIS CT WITH IV CONTRAST CT DOSE: 3852.49 mGy.cm HISTORY: Acute generalized abdominal pain with leukocytosis and rectal bleeding ab pain, wbc 15, rec loli bleeding TECHNIQUE: Multiaxial CT images of the abdomen and pelvis were performed following the IV administrat ion of 120 cc of Optiray, A dose lowering technique was utilized adhering to the principles of ALARA . COMPARISON STUDY: None. FINDINGS: Moderate cardiomegaly. Mild bibasilar atelectasis. Mildly motion degraded exam. No pneumato sis or pneumoperitoneum. The spleen, pancreas, adrenal glands, contracted gallbladder and liver appea r unremarkable. lobulations of the kidneys. There are a few cysts of the left kidney measuring up to 2.7 cm. 10 mm nonobstructing calculus of the inferior pole left kidney. No ureteral calculi or hydronephrosis. Prostamegaly. Partially decompressed urinary bladder. Atherosclerosis of the aorta wi thout aneurysm. No adenopathy. There is no bowel obstruction. There is a focal area of irregular wall thickening and enhancement inv olving the left lateral and posterior rectum measuring up to 3.2 x 1.3 x 3 cm. The caudal extent is a pproximately 7.5 cm from the anal verge. No perirectal adenopathy or inflammatory stranding. Mild fec al retention. Normal appendix. Mild colonic diverticulosis. No ascites or mesenteric inflammation. Un remarkable soft tissues. Degenerative changes of the spine, pelvis and hips. IMPRESSION: 1. There is a 3.2 cm focus of asymmetric wall thickening with increased enhancement within the rectum approximately 7.5 cm from the anal verge. This finding should be correlated with colonoscopy to excl ude malignancy. 2. No bowel obstruction or pneumoperitoneum. 3. No adenopathy identified. 4. Prostamegaly. 5. 10 mm nonobstructing left renal calculus. ACT 112: Negative or not required by law. The above report was generated using voice recognition software. It may contain grammatical, syntax o r spelling errors. Electronically signed by: Jonathon Oswald M.D. 07/08/2021 8:36 PM
[2021-07-08] MEDS ORDERED: SODIUM CHLORIDE 0.9% 500 ML IV ONE (20:56)
[2021-07-08] MEDS ORDERED: hydrALAZINE 10 MG TAB PO SCH (21:00)
[2021-07-08] MEDS ORDERED: POTASSIUM CHLORIDE CRTAB 20 MEQ TABCR PO STA (21:54)
[2021-07-08] MEDS ORDERED: GLUCOSE 10 TABS/TUBE PO PRN (22:10)
[2021-07-08] MEDS ORDERED: GLUCAGON FOR INJ 1 MG VIAL SQ PRN (22:10)
[2021-07-08] MEDS ORDERED: LORazepam 2 MG/4 ML VIAL IV PRN (22:10)
[2021-07-08] MEDS ORDERED: POLYETHYLENE (MIRALAX) 17 GM PACK PO PRN (22:10)
[2021-07-08] MEDS ORDERED: PROMETHAZINE HCL 12.5 MG in SODIUM CHLORIDE 0.9% 50 ML IV PRN (22:10)
[2021-07-08] MEDS ORDERED: LORazepam 3 MG/6 ML VIAL IV PRN (22:10)
[2021-07-08] MEDS ORDERED: DEXTROSE 50% 50 ML SYRINGE IV PRN (22:10)
[2021-07-08] MEDS ORDERED: ATIVAN IV ALCOHOL WITHDRAWL IV PRN (22:10)
[2021-07-08] MEDS ORDERED: GLUCOSE 40% GEL 15 GM TUBE PO PRN (22:10)
[2021-07-08] MEDS ORDERED: CARBOHYDRATES FOR HYPOGLYCEMIA PO PRN (22:10)
[2021-07-08] MEDS ORDERED: LORazepam 1 MG/2 ML VIAL IV PRN (22:10)
[2021-07-08] MEDS: ATORVASTATIN 40 MG TAB PO SCH (23:49)
[2021-07-08] MEDS: THIAMINE HCL 100 MG TAB PO SCH (23:50)
[2021-07-08] MEDS: FOLIC ACID 1 MG TAB PO SCH (23:51)
[2021-07-08] MEDS: MONTELUKAST SODIUM 10 MG TABLET PO SCH (23:51)
[2021-07-08] MEDS: GABAPENTIN 100 MG CAP PO SCH (23:52)
[2021-07-08] MEDS: INSULIN ASPART PER UNIT SC SCH (23:59)
[2021-07-09] MEDS ORDERED: POTASSIUM CHLORIDE CRTAB 20 MEQ TABCR PO ONE
[2021-07-09 06:53] LABS: Basophils # (auto) 0.05 K/uL (0-0.2); Basophils % (auto) 0.4 %; Eosinophils # (auto) 0.34 K/uL (0-0.5); Eosinophils % (auto) 2.9 %; Hematocrit (blood only) 36.9 % (42-52); Hemoglobin 11.8 g/dL (14.0-18.0); Immature Granulocytes # (auto) 0.04 K/uL (0.00-0.02); Immature Granulocytes % (auto) 0.3 %; Lymphocytes # (auto) 2.25 K/uL (1.2-3.4); Lymphocytes % (auto) 18.9 %; Mean Corpuscular Hemoglobin 26.4 pg (25-34); Mean Corpuscular Volume 82.6 fL (80-100); Mean Platelet Volume 9.7 fL (7.4-10.4); Monocytes # (auto) 1.02 K/uL (0.11-0.59); Monocytes % (auto) 8.6 %; Neutrophils # (auto) 8.19 K/uL (1.4-6.5); Neutrophils % (auto) 68.9 %; Platelet Count 246 K/uL (130-400); RDW Coefficient of Variation 16.9 % (11.5-14.5); RDW Standard Deviation 50.9 fL (36.4-46.3); Red Blood Count 4.47 M/uL (4.7-6.1); White Blood Count 11.89 K/uL (4.8-10.8)
[2021-07-09 07:14] LABS: BUN Creatinine Ratio 24.5 (10-20); Calcium 8.6 mg/dl (8.5-10.1); Creatinine Clr Calc Pharmacy 103.8 ml/min; Est GFR (African American) 81.8 ml/min; Est GFR (Non-African American) 70.6 ml/min; Potassium 3.9 mmol/L (3.5-5.1)
[2021-07-09] MEDS ORDERED: lisinopril 40 MG TAB PO SCH (09:00)
[2021-07-09] MEDS ORDERED: carvediloL 12.5 MG TAB PO SCH (09:00)
[2021-07-09] MEDS ORDERED: hydrALAZINE HCL 20 MG/ML VIAL IV STA (09:59)
--- NOTE | 2021-07-09 10:10 | Hospitalist Progress Note ---
Date of Service July 09, 2021 Assessment & Plan (1) Hypertensive urgency: Plan: 2/2 noncompliance with medication. Hydralazine PO increased and used PRN with better control today. Doesn't appear to be actively withdrawing but this may also be contributing down the road. Cont current therapy. (2) Anemia: Plan: chronic, mild and improved compared to prior numbers in recent months. Monitor in setting of reported hematochezia. Multifactorial etiology. (3) Diabetes mellitus, type II: Plan: chronic, controlled, cont insulin while hospitalized. (4) FRANCIS (obstructive sleep apnea): Plan: reported noncompliance with CPAP (5) Morbid obesity: (6) Depression: Plan: chronic, stable. Cont duloxetine per home regimen. (7) Alcohol abuse: Plan: Reports upwards of 12 beers daily. No overt withdrawal. Cont AWSS (8) Noncompliance: (9) Hematochezia: Plan: Patient uncertain of this, however, rectal mass is present on abdominal CT. GI for recommendations. (10) Colonic mass: Plan: per plan as above. (11) DVT prophylaxis: Plan: SCDs in setting of hematochezia Full Dispo-cont to monitor. Neha Mittal DO [facility] Hospitalist Admission and Anticipated Discharge Date Admission Date: July 08, 2021 Subjective 66 yo M presents with worsening dizziness for the last few days. Reports shortness of breath but cannot let me know for how long-poor historian. Periods of agitation during interview. BP 230/130 with repeat 180/110. He reports drinking alcohol but not regularly. He reports on heavy days drinking 12 pack. Appears oriented but reports having a sarcastic sense of humor and continues to give joking responses such as "I'm here on vacation." Encouraged to give clear responses so we can help him the best. Takes multiple repeated efforts for questions to actually get an answer. Denies blood per rectum although this was in the ER note. He says he can't remember saying that. Denies SOB or pain at this time. Review of Systems Review of Systems: All systems were reviewed and negative except as indicated above in subjective. Physical Exam Physical Exam: CONSTITUTIONAL: WNWD, vitals as above, generally well- appearing EYES: PERRL, normal conjunctivae, no scleral icterus, no fundoscopic abnormality ENT: external ear and nose normal, MMM NECK: trachea midline, RESPIRATORY: clear to auscultation bilaterally, no crackles, rales or wheezes, normal respiratory effort CARDIOVASCULAR: regular rate and rhythm, S1 and 2 heard without murmurs, gallops or rubs, no JVD, no peripheral edema CHEST: inspection of chest was normal GASTROINTESTINAL: soft, protuberant, nontender, no guarding MUSCULOSKELETAL: strength 5/5 throughout, head is normocephalic and atraumatic, SKIN: warm and dry NEUROLOGIC: CN 2-12 grossly intact, no sensory deficit, normal cognition, normal speech, no tremor PSYCHIATRIC: alert cooperative and oriented to person, place and time. Results & Data Results & Data ([facility]) Vital Signs (Past 12 Hours) Vital Signs Pulse Resp BP Pulse Ox 07/09/21 06:25 79 18 190/92 H 93 07/09/21 00:09 76 18 176/94 H 96 07/08/21 23:44 78 15 202/100 H 94 Laboratory Results Short CBC 07/08/21 07/08/21 07/09/21 Range/Units 18:02 20:13 06:44 WBC 15.86 H 11.89 H (4.8-10.8) K/uL Hgb 12.6 L 11.9 L 11.8 L (14.0-18.0) g/dL Hct 38.8 L 36.7 L 36.9 L (42-52) % Plt Count 272 246 (130-400) K/uL BMP 07/08/21 07/09/21 18:02 06:44 Sodium 139 137 Potassium 4.0 3.9 Chloride 106 105 Carbon Dioxide 22 23 BUN 32 H 27 H Creatinine 1.21 1.10 Glucose 131 H 124 H Calcium 8.8 8.6 Cardiac Enzymes 07/08/21 Range/Units 18:02 Troponin I 0.04 (0-0.04) ng/ml Liver Function 07/08/21 Range/Units 18:02 Total Bilirubin 0.3 (0.2-1.0) mg/dl AST 14 (13-39) U/L ALT 18 (7-52) U/L Alkaline Phosphatase 173 H (34-104) U/L Albumin 3.5 (3.4-5.0) gm/dl Urine 07/08/21 Range/Units 18:00 Urine Color Yellow Urine Appearance Clear (Clear) Urine pH 6.0 (4.5-7.5) Ur Specific Rison 1.021 (1.000-1.030) Urine Protein 3+ H (Negative) Urine Glucose (UA) Negative (Negative) Diagnostic Findings Head CT 07/09/21 12:34 CT OF THE HEAD WITHOUT CONTRAST CLINICAL HISTORY: headache, elevated BP COMPARISON STUDY: Head CT July 08, 2021. CT DOSE: 537.48 mGy.cm TECHNIQUE: Helical axial images of the head were obtained without IV contrast. Automated exposure control was utilized for the study. A dose lowering technique was utilized adhering to the principles of ALARA. FINDINGS: No acute intracranial hemorrhage, midline shift or mass effect is present. The ventricular system is unremarkable. The basal cisterns are patent. No extra-axial collections are present. There are no findings to suggest acute dural sinus thrombosis or acute territorial infarct. No significant calvarial abnormalities are present. There is mucosal thickening of the left sphenoid sinus which is unchanged. IMPRESSION: No acute intracranial findings. ACT 112: Negative or not required by law. Electronically signed by: Norberto Oliver M.D. 07/09/2021 1:01 PM Medications Administered Current Inpatient Medications Acetaminophen (Acetaminophen 325 Mg Tab) 650 mg PO Q4 PRN PRN Reason: PAIN , SCALE 1-3 Stop: 08/07/21 22:09 Last Admin: 07/09/21 12:01 Dose: 650 mg Documented by: Allopurinol (Allopurinol 300 Mg Tab) 300 mg PO DAILY ZOHAIB Stop: 08/08/21 08:59 Last Admin: 07/09/21 10:31 Dose: 300 mg Documented by: Amlodipine Besylate (Amlodipine Besylate 5 Mg Tab) 10 mg PO DAILY ZOHAIB Stop: 08/08/21 08:59 Last Admin: 07/09/21 10:28 Dose: 10 mg Documented by: Atorvastatin Calcium (Atorvastatin 40 Mg Tab) 40 mg PO HS ZOHAIB Stop: 08/07/21 22:09 Last Admin: 07/08/21 23:49 Dose: 40 mg Documented by: Dextrose (Dextrose 50% 50 Ml Syringe) 25 - 50 ml IV UD PRN; Protocol PRN Reason: Hypoglycemia Protocol Stop: 08/07/21 22:09 Duloxetine HCl (Duloxetine Hcl 60 Mg Cap) 60 mg PO DAILY ZOHAIB Stop: 08/08/21 08:59 Last Admin: 07/09/21 10:27 Dose: 60 mg Documented by: Ferrous Sulfate (Ferrous Sulfate 325 Mg Tab) 325 mg PO BIDM [facility] Stop: 08/08/21 07:59 Last Admin: 07/09/21 10:28 Dose: 325 mg Documented by: Folic Acid (Folic Acid 1 Mg Tab) 1 mg PO QAM [facility] Stop: 08/07/21 22:09 Last Admin: 07/09/21 10:49 Dose: 1 mg Documented by: Gabapentin (Gabapentin 100 Mg Cap) 200 mg PO TID [facility] Stop: 08/07/21 22:09 Last Admin: 07/09/21 15:55 Dose: 200 mg Documented by: Glucagon (Glucagon For Inj 1 Mg Vial) 1 mg SQ UD PRN; Protocol PRN Reason: Hypoglycemia Protocol Stop: 08/07/21 22:09 Glucose (Glucose 10 Tabs/Tube) 4 - 8 tabs PO UD PRN; Protocol PRN Reason: Hypoglycemia Protocol Stop: 08/07/21 22:09 Glucose (Glucose 40% Gel 15 Gm Tube) 15 - 30 gm PO UD PRN; Protocol PRN Reason: Hypoglycemia Protocol Stop: 08/07/21 22:09 Hydralazine HCl (Hydralazine Hcl 25 Mg Tab) 25 mg PO TID [facility] Stop: 08/08/21 06:59 Last Admin: 07/09/21 16:01 Dose: 25 mg Documented by: Lorazepam (Ativan) 1 mg in 2 mls @ 2 mls/min IV UD PRN; Protocol PRN Reason: EtOH Withdrawl AWSS Score 6,7 Stop: 08/07/21 22:09 Lorazepam (Ativan) 2 mg in 4 mls @ 4 mls/min IV UD PRN; Protocol PRN Reason: EtOH Withdrawl AWSS Score 8,9 Stop: 08/07/21 22:09 Lorazepam (Ativan) 3 mg in 6 mls @ 4 mls/min IV ONCE PRN; Protocol PRN Reason: EtOH Withdrawl AWSS Score >=10 Promethazine HCl 12.5 mg/ (Sodium Chloride) 50.5 mls @ 202 mls/hr IV Q6H PRN PRN Reason: Nausea And Vomiting Stop: 08/07/21 22:09 Insulin Aspart (Insulin Aspart Per Unit) 0 units SC ACHS [facility] Stop: 08/07/21 22:09 Last Admin: 07/09/21 13:56 Dose: 3 units Documented by: Insulin Glargine (Insulin Glargine Solostar 100 Units/Ml 3 Ml Pen) 5 units SC DAILY [facility] Stop: 08/08/21 08:59 Last Admin: 07/09/21 10:32 Dose: 5 units Documented by: Labetalol HCl (Labetalol Hcl 100 Mg Tab) 100 mg PO BID [facility] Stop: 08/08/21 06:54 Last Admin: 07/09/21 10:25 Dose: 100 mg Documented by: Lisinopril (Lisinopril 40 Mg Tab) 40 mg PO QAM ZOHAIB Stop: 08/08/21 08:59 Last Admin: 07/09/21 10:29 Dose: 40 mg Documented by: Miscellaneous (Carbohydrates For Hypoglycemia ) 15 - 30 gm PO UD PRN PRN Reason: Hypoglycemia Protocol Stop: 08/07/21 22:09 Montelukast Sodium (Montelukast Sodium 10 Mg Tablet) 10 mg PO HS [facility] Stop: 08/07/21 22:09 Last Admin: 07/08/21 23:51 Dose: 10 mg Documented by: Multivitamins (Multivitamin Tab) 1 tab PO QAM [facility] Stop: 08/08/21 08:59 Last Admin: 07/09/21 10:29 Dose: 1 tab Documented by: Oxycodone HCl (Oxycodone Hcl Ir 5 Mg Tab (Immediate Release)) 5 mg PO Q4H PRN PRN Reason: Pain Stop: 07/22/21 22:09 Pantoprazole Sodium (Pantoprazole 40 Mg Tab) 40 mg PO DAILY [facility] Stop: 08/08/21 08:59 Last Admin: 07/09/21 10:29 Dose: 40 mg Documented by: Polyethylene Glycol (Polyethylene (Miralax) 17 Gm Pack) 17 gm PO DAILY PRN PRN Reason: Constipation Stop: 08/07/21 22:09 Sertraline HCl (Sertraline Hcl 100 Mg Tablet) 100 mg PO DAILY [facility] Stop: 08/08/21 08:59 Last Admin: 07/09/21 10:26 Dose: 100 mg Documented by: Tamsulosin HCl (Tamsulosin Hcl 0.4 Mg Cap) 0.8 mg PO QDD [facility] Stop: 08/08/21 16:29 Thiamine HCl (Thiamine Hcl 100 Mg Tab) 100 mg PO QAM [facility] Stop: 08/07/21 22:09 Last Admin: 07/09/21 10:48 Dose: 100 mg Documented by: Umeclidinium/Vilanterol (Umeclidinium/Vilanterol 62.5/25mcg 7 Puffs/Inhaler) 1 puffs INH DAILY [facility] Stop: 08/08/21 08:59 Last Admin: 07/09/21 10:30 Dose: 1 puffs Documented by: (1) Anemia Anemia type: unspecified type Qualified Code(s): D64.9 - Anemia, unspecified
[2021-07-09] MEDS: LABETALOL HCL 100 MG TAB PO SCH ×2 (10:25→21:10)
[2021-07-09] MEDS: hydrALAZINE HCL 25 MG TAB PO SCH ×3 (10:25→21:11)
[2021-07-09] MEDS: SERTRALINE HCL 100 MG TABLET PO SCH (10:26)
[2021-07-09] MEDS: DULoxetine HCL 60 MG CAP PO SCH (10:27)
[2021-07-09] MEDS: FERROUS SULFATE 325 MG TAB PO SCH ×2 (10:28→17:32)
[2021-07-09] MEDS: amLODIPine BESYLATE 5 MG TAB PO SCH (10:28)
[2021-07-09] MEDS: MULTIVITAMIN TAB PO SCH (10:29)
[2021-07-09] MEDS: PANTOprazole 40 MG TAB PO SCH (10:29)
[2021-07-09] MEDS: lisinopril 40 MG TAB PO SCH (10:29)
[2021-07-09] MEDS: UMECLIDINIUM/VILANTEROL 62.5/25MCG 7 PUFFS/INHALER INH SCH (10:30)
[2021-07-09] MEDS: allopurinoL 300 MG TAB PO SCH (10:31)
[2021-07-09] MEDS: INSULIN GLARGINE SOLOSTAR 100 UNITS/ML 3 ML PEN SC SCH (10:32)
[2021-07-09] MEDS: THIAMINE HCL 100 MG TAB PO SCH (10:48)
[2021-07-09] MEDS: FOLIC ACID 1 MG TAB PO SCH (10:49)
[2021-07-09] MEDS: GABAPENTIN 100 MG CAP PO SCH ×3 (10:49→21:09)
[2021-07-09] MEDS: INSULIN ASPART PER UNIT SC SCH ×4 (11:02→21:18)
--- NOTE | 2021-07-09 11:52 | Electrocardiogram Report ---
Test Reason : Blood Pressure : / mmHG Vent. Rate : 087 BPM Atrial Rate : 087 BPM P-R Int : 172 ms QRS Dur : 142 ms QT Int : 424 ms P-R-T Axes : 057 -69 030 degrees QTc Int : 510 ms Sinus rhythm with Premature atrial complexes Right bundle branch block Left anterior fascicular block Bifascicular block Minimal voltage criteria for LVH, may be normal variant Abnormal ECG When compared with ECG of 19-JUN-2021 17:02, T wave inversion less evident in Anterior leads Confirmed by Pastor Haddad ([id number]) on 07/09/2021 11:52:26 AM Referred By: REFERRED SELF Confirmed By:Pastor Haddad
[2021-07-09] MEDS: ACETAMINOPHEN 325 MG TAB PO PRN (12:01)
--- NOTE | 2021-07-09 13:02 | CT Scan Report ---
CT OF THE HEAD WITHOUT CONTRAST CLINICAL HISTORY: headache, elevated BP COMPARISON STUDY: Head CT July 08, 2021. CT DOSE: 537.48 mGy.cm TECHNIQUE: Helical axial images of the head were obtained without IV contrast. Automated exposure con trol was utilized for the study. A dose lowering technique was utilized adhering to the principles o f ALARA. FINDINGS: No acute intracranial hemorrhage, midline shift or mass effect is present. The ventricular system is unremarkable. The basal cisterns are patent. No extra-axial collections are present. There are no findings to suggest acute dural sinus thrombosis or acute territorial infarct. No significant calvarial abnormalities are present. There is mucosal thickening of the left sphenoid sinus which is unchanged. IMPRESSION: No acute intracranial findings. ACT 112: Negative or not required by law. Electronically signed by: Norberto Oliver M.D. 07/09/2021 1:01 PM
[2021-07-09] MEDS: TAMSULOSIN HCL 0.4 MG CAP PO SCH (17:32)
[2021-07-09] MEDS: ATORVASTATIN 40 MG TAB PO SCH (21:10)
[2021-07-09] MEDS: MONTELUKAST SODIUM 10 MG TABLET PO SCH (21:11)
[2021-07-10] MEDS: PANTOprazole 40 MG TAB PO SCH (09:33)
[2021-07-10] MEDS: LABETALOL HCL 100 MG TAB PO SCH ×2 (09:34→20:52)
[2021-07-10] MEDS: allopurinoL 300 MG TAB PO SCH (09:35)
[2021-07-10] MEDS: FERROUS SULFATE 325 MG TAB PO SCH ×2 (09:35→16:33)
[2021-07-10] MEDS: hydrALAZINE HCL 25 MG TAB PO SCH ×3 (09:38→20:52)
[2021-07-10] MEDS: DULoxetine HCL 60 MG CAP PO SCH (09:38)
[2021-07-10] MEDS: MULTIVITAMIN TAB PO SCH (09:38)
[2021-07-10] MEDS: FOLIC ACID 1 MG TAB PO SCH (09:38)
[2021-07-10] MEDS: GABAPENTIN 100 MG CAP PO SCH ×3 (09:38→20:52)
[2021-07-10] MEDS: amLODIPine BESYLATE 5 MG TAB PO SCH (09:38)
[2021-07-10] MEDS: SERTRALINE HCL 100 MG TABLET PO SCH (09:39)
[2021-07-10] MEDS: THIAMINE HCL 100 MG TAB PO SCH (09:39)
[2021-07-10] MEDS: UMECLIDINIUM/VILANTEROL 62.5/25MCG 7 PUFFS/INHALER INH SCH (09:39)
[2021-07-10] MEDS: lisinopril 40 MG TAB PO SCH (09:39)
[2021-07-10] MEDS: INSULIN ASPART PER UNIT SC SCH ×4 (09:45→21:51)
[2021-07-10] MEDS: INSULIN GLARGINE SOLOSTAR 100 UNITS/ML 3 ML PEN SC SCH (09:46)
--- NOTE | 2021-07-10 11:15 | Gastrointestinal Consultation ---
Date of Consultation July 10, 2021 Assessment & Plan (1) Colonic mass: Plan for Colonoscopy tomorrow by Dr. Rojo. Further recommendations to follow colonoscopy. Hold iron. Prep today. NPO after midnight. Supervising Physician Co-Signing Physician Notes I saw and evaluated the patient patient. We are consulted for evalaution of a rectal mass seen on a recent CT. The patient is a difficult historian and den ies having any symptoms. In addition he does not recall any prior surgeries or colonoscopy. PE: NAD Obese / abd soft Impression: patient admitted with hypertensive urgency thought related to medica l noncompliance. CT with a possible rectal mass. Recomendations: Colonolscopy to be scheduled If found to have a rectal mass would then need to refer patient to a colorectal surgeon, medical oncolgoy and arrange for TRUS. History of Present Illness Reason for Consultation: ? rectal mass Requesting Physician: Dr. Melissa Attending Physician: Neha Mittal, DO History of Present Illness Mr. Haim Cheung is a 66yr old male pt with a hx of DM-2, CKD, obesity, FRANCIS, depression, CHF. He is known to our group because he was seen in consult at [facility] in November during an admission with COVID, at that time with rectal bleeding. OP colonoscopy was arranged but we were unable to reach to the pt to arrange. Now admitted with rectal pain and pt tells me unsure if he has had any blood in his BMs. Denies abd pain. CT on arrival with rectal asymmetry, thus need to r/o rectal CA. Allergies Allergy/AdvReac Type Severity Reaction Status Date / Time No Known Allergies Allergy Verified 07/08/21 19:04 Home Medications Medication Instructions Recorded Confirmed Type polyethylene glycol 3350 17 gram 17 g PO DAILY PRN 11/29/20 07/08/21 History oral powder packet (Miralax) blood sugar diagnostic (Gluco #50 ea 05/09/21 05/22/21 Rx Navii Test Strip) blood-glucose meter (Gluco Navii #1 ea 05/09/21 05/22/21 Rx Glucose Monitor) lancets #100 ea 05/09/21 05/22/21 Rx acetaminophen 325 mg tablet 650 mg PO Q4 PRN #30 tab 06/15/21 07/08/21 Rx (Tylenol) albuterol sulfate 90 mcg/actuation 2 puff INHALATION QID PRN #8.5 g 06/15/21 07/08/21 Rx aerosol inhaler (Ventolin HFA) allopurinol 300 mg tablet 300 mg PO DAILY #30 tab 06/15/21 07/08/21 Rx amlodipine 5 mg tablet (Norvasc) 10 mg PO DAILY #60 tab 06/15/21 07/08/21 Rx atorvastatin 40 mg tablet 40 mg PO HS #30 tab 06/15/21 07/08/21 Rx bumetanide 1 mg tablet 1 mg PO DAILY #30 tab 06/15/21 07/08/21 Rx diclofenac sodium 1 % topical gel 4 g EXT BID #100 g 06/15/21 07/08/21 Rx (Voltaren Arthritis Pain) docusate sodium 100 mg capsule 100 mg PO BID PRN #60 cap 06/15/21 07/08/21 Rx (Stool Softener) duloxetine 60 mg capsule,delayed 60 mg PO DAILY #30 cap 06/15/21 07/08/21 Rx release ferrous sulfate 325 mg (65 mg 325 mg PO BIDM #14 tab 06/15/21 07/08/21 Rx iron) tablet,delayed release gabapentin 100 mg capsule 200 mg PO TID #180 cap 06/15/21 07/08/21 Rx hydralazine 10 mg tablet 20 mg PO BID #60 tab 06/15/21 07/08/21 Rx labetalol 100 mg tablet 100 mg PO BID #60 tab 06/15/21 07/08/21 Rx metformin 500 mg tablet 500 mg PO BIDWMEAL #60 tab 06/15/21 07/08/21 Rx montelukast 10 mg tablet 10 mg PO HS #30 tab 06/15/21 07/08/21 Rx (Singulair) pantoprazole 40 mg tablet,delayed 40 mg PO DAILY #30 tab 06/15/21 07/08/21 Rx release potassium chloride 20 mEq 20 meq PO DAILY #30 tab 06/15/21 07/08/21 Rx tablet,extended release(part/cryst) sertraline 100 mg tablet (Zoloft) 100 mg PO DAILY #30 tab 06/15/21 07/08/21 Rx tamsulosin 0.4 mg capsule (Flomax) 0.8 mg PO DAILY #30 cap 01/06/22 01/29/22 Rx umeclidinium 62.5 mcg-vilanterol 1 inh INHALATION DAILY #14 ea 06/15/21 07/08/21 Rx 25 mcg/actuation powdr for inhalation (Anoro Ellipta) lisinopril 30 mg tablet (Zestril) 40 mg PO DAILY 07/09/21 07/09/21 History Patient History Medical History Abnormal posture Ambulatory dysfunction Chronic diastolic CHF (congestive heart failure) Chronic respiratory failure with hypoxia Coronary artery disease Depression Diabetes mellitus, type II Gout History of blood transfusion History of COVID-19 Hyperlipidemia Hypertension Mood disorder Morbid obesity FRANCIS (obstructive sleep apnea) Septic arthritis Ventricular tachycardia Wrist arthritis Wrist arthritis Surgical History Cataract extraction status, unspecified eye H/O knee surgery History of incision and drainage Family History Other Throat cancer Social History Smoking Status: Former smoker Tobacco Type: Cigarettes Second Hand Exposure: Yes (Pts father); Hx Alcohol Use: Yes Alcohol type: beer Hx Substance Use: Yes Last Used Substance: Days (ago) Preferred Language: Greek Communication Ability: Effective Help Desk Support Required: No Beliefs That Will Affect Care: None marital status: Single Current Living Situation: Alone Current Living Situation Comment: [facility] How many Children do You have: 0 Feels Safe at Home: Yes Safety Concerns: Feels Safe At This Time Assistive Devices: Walker Review of Systems Review of Systems: ROS: Gen: + weakness, denies fevers, unsure if weight loss Eyes: No eye redness, or pain, no recent vision changes Resp: No SOB, no cough Cardio: No palpitations/irregular beats, no chest pain GI: No abdominal pain, no nausea/vomiting : Denies pain on urination Skin: No jaundice, itching or new rashes Physical Exam Constitutional: well developed, + obese and cooperative Eyes: PERRL, conjunctivae normal, anicteric sclerae ENMT: external ear and nose normal, oropharynx normal Neck: trachea midline, no thyromegaly Respiratory: normal respiratory effort, lungs clear to auscultation Cardiovascular: Heart Sounds: normal S1 and normal S2; no murmur Gastrointestinal (Abdomen): normal bowel sounds, soft, nontender, no hepatosplenomegaly rectal exam deferred. Skin: no rashes, warm and dry normal turgor Neurologic: PERRL, EOMI, accommodation nl, no face palsy, no dysarthria awake; not confused Psychiatric: Orientation: alert, oriented x 3 and cooperative Lymphatic: no cervical or axillary lymphadenopathy Results & Data ([facility]) Vital Signs (Past 12 Hours) Vital Signs Temp Pulse Resp BP Pulse Ox 07/10/21 08:00 36.8 C 92 H 16 132/84 93 07/10/21 03:30 79 19 132/73 97 07/10/21 00:06 36.9 C 74 20 128/64 94 Laboratory Results WBC 11, Hb 11.8, Hct 36, Plts 246, Na 137, K 3.9, Cl 105, CO2 23, BUN 27, Cr 1.1, Plts 124 Diagnostic Findings CTAP w IV contrast 07/08/20: 1. There is a 3.2 cm focus of asymmetric wall thickening with increased enhancement within the rectum approximately 7.5 cm from the anal verge. This finding should be correlated with colonoscopy to exclude malignancy. 2. No bowel obstruction or pneumoperitoneum. 3. No adenopathy identified. 4. Prostamegaly. 5. 10 mm nonobstructing left renal calculus.
[2021-07-10] MEDS ORDERED: bisacodyL 5 MG TABEC PO ONE ×2 (11:25→20:00)
[2021-07-10] MEDS ORDERED: LAVAGE SOLUTION 4000ML PO SCH (12:00)
[2021-07-10] MEDS: TAMSULOSIN HCL 0.4 MG CAP PO SCH (16:24)
--- NOTE | 2021-07-10 17:41 | Hospitalist Progress Note ---
Date of Service July 10, 2021 Assessment & Plan (1) Hypertensive urgency: Plan: 66 year old male with medical history significant for chronic diastolic heart failure (EF 60 to 65%, TTE 2020), CAD as per records, hypertension, hyperlipidemia, COPD, FRANCIS/CPAP intolerance, DM2 on oral medications, mood disorder, chronic anemia (baseline hemoglobin of 10), medication noncompliance as per family, past tobacco abuse who presented to the ED by referral of home health nurse. Presenting BP 200/97 2/2 noncompliance with medication Home hydralazine increased to 25 mg 3 times daily with improvement in BP Continue amlodipine, labetalol, lisinopril (2) Anemia: Plan: chronic, mild and improved compared to prior numbers in recent months Continue to monitor CBC (3) Hematochezia: (4) Colonic mass: Plan: Patient unsure of rectal bleeding CT ABD/pelvis showing There is a 3.2 cm focus of asymmetric wall thickening with increased enhancement within the rectum approximately 7.5 cm from the anal verge. GI consulted, planning on colonoscopy tomorrow (5) Diabetes mellitus, type II: Plan: Hgb A1c 6.9 04/2021 Lantus and NovoLog per protocol hospitalized (6) FRANCIS (obstructive sleep apnea): Plan: reported noncompliance with CPAP (7) Morbid obesity: Plan: BMI 43.8 (8) Depression: Plan: Stable, continue home meds (9) Alcohol abuse: Plan: Reports upwards of 12 beers daily. No overt withdrawal. Cont AWSS (10) DVT prophylaxis: Plan: SCDs in setting of possible hematochezia Dispo- Pending. Patient advised for rehab last admission however signed out AMA. Admission and Anticipated Discharge Date Admission Date: July 09, 2021 Supervising Physician Co-Signing Physician Notes I have seen and examined the patient and have discussed the case with the provider above. I agree with the assessment and plan as stated. ROS is unremarkable in this patient today whose blood pressure is now improved on therapy. My physical exam reflects that above. Agree with plan as outlined. [place], DO Subjective Patient seen and examined. Follow-up for hypertensive urgency, anemia, possible rectal mass noted on CT scan. Patient is a difficult historian due to ongoing sarcasm. Seems to be doing well, does not really offer any complaints. Unsure if he is having bloody bowel movements. Denies abdominal pain or nausea. No chest pain or shortness of breath. Review of Systems Review of Systems: ROS per HPI, all other systems reviewed and negative Physical Exam Constitutional: WD/WN, vitals as above no acute distress Respiratory: normal respiratory effort, lungs clear to auscultation Cardiovascular: Rate/Rhythm: regular rate and regular rhythm Vessels: normal peripheral pulses Extremities: no edema Gastrointestinal (Abdomen): Percussion/Palpation: abdomen soft; abdomen nontender Skin: no rashes, warm and dry Neurologic: no focal motor deficits Psychiatric: Orientation: alert and oriented x 3 Affect: + irritable affect Results & Data Results & Data ([facility]) Vital Signs (Past 12 Hours) Vital Signs Temp Pulse Resp BP Pulse Ox 07/10/21 08:00 36.8 C 92 H 16 132/84 93 (1) Anemia Anemia type: unspecified type Qualified Code(s): D64.9 - Anemia, unspecified
[2021-07-10] MEDS: ATORVASTATIN 40 MG TAB PO SCH (20:51)
[2021-07-10] MEDS: MONTELUKAST SODIUM 10 MG TABLET PO SCH (20:53)
[2021-07-11] MEDS ORDERED: POTASSIUM CHLORIDE CRTAB 20 MEQ TABCR PO STA ×2 (04:11→05:26)
[2021-07-11] MEDS ORDERED: MAGNESIUM SULFATE / D5W 1 GM/100 ML BAG IV ONE (04:30)
[2021-07-11 04:43] LABS: Basophils # (auto) 0.04 K/uL (0-0.2); Basophils % (auto) 0.5 %; Eosinophils % (auto) 4.6 %; Hematocrit (blood only) 31.7 % (42-52); Immature Granulocytes # (auto) 0.02 K/uL (0.00-0.02); Immature Granulocytes % (auto) 0.2 %; Lymphocytes # (auto) 1.45 K/uL (1.2-3.4); Lymphocytes % (auto) 16.8 %; Mean Corpuscular Hemoglobin 26.5 pg (25-34); Mean Corpuscular Hgb Conc 31.5 g/dL (32-36); Mean Corpuscular Volume 84.1 fL (80-100); Mean Platelet Volume 9.2 fL (7.4-10.4); Monocytes # (auto) 0.65 K/uL (0.11-0.59); Monocytes % (auto) 7.5 %; Neutrophils # (auto) 6.08 K/uL (1.4-6.5); Neutrophils % (auto) 70.4 %; Platelet Count 217 K/uL (130-400); RDW Coefficient of Variation 17.5 % (11.5-14.5); RDW Standard Deviation 54.3 fL (36.4-46.3); Red Blood Count 3.77 M/uL (4.7-6.1); White Blood Count 8.64 K/uL (4.8-10.8)
[2021-07-11] MEDS: LABETALOL HCL 100 MG TAB PO SCH ×2 (04:50→21:41)
[2021-07-11 04:59] LABS: BUN Creatinine Ratio 19.7 (10-20); Calcium 8.6 mg/dl (8.5-10.1); Creatinine Clr Calc Pharmacy 80.4 ml/min; Est GFR (African American) 60.1 ml/min; Est GFR (Non-African American) 51.8 ml/min; Magnesium 2.1 mg/dl (1.7-2.4); Potassium 3.7 mmol/L (3.5-5.1)
[2021-07-11] MEDS ORDERED: SODIUM CHLORIDE 0.9% 1000ML 1,000 ML IV ONE (05:27)
[2021-07-11] MEDS ORDERED: XOPENEX/ATROVENT 1.25mg/0.5MG NEB COMBO NEB STA (05:59)
[2021-07-11] MEDS ORDERED: IPRATROPIUM BROMIDE NEB SOLN 0.02% 2.5 ML VIAL INH STA (06:00)
[2021-07-11] MEDS ORDERED: LEVALBUTEROL 1.25MG/0.5ML NEB INH STA (06:01)
[2021-07-11] MEDS: ACETAMINOPHEN 325 MG TAB PO PRN (06:05)
[2021-07-11] MEDS ORDERED: ALBUMIN 25% 100 mL 25 GM/100 ML VIAL IV ONE (06:31)
[2021-07-11] MEDS ORDERED: FUROSEMIDE INJ 20 MG/2 ML VIAL IV ONE (06:31)
[2021-07-11] MEDS: FOLIC ACID 1 MG TAB PO SCH (08:02)
[2021-07-11] MEDS: SERTRALINE HCL 100 MG TABLET PO SCH (08:02)
[2021-07-11] MEDS: GABAPENTIN 100 MG CAP PO SCH ×3 (08:02→21:40)
[2021-07-11] MEDS: allopurinoL 300 MG TAB PO SCH (08:03)
[2021-07-11] MEDS: DULoxetine HCL 60 MG CAP PO SCH (08:03)
[2021-07-11] MEDS: PANTOprazole 40 MG TAB PO SCH (08:03)
[2021-07-11] MEDS: amLODIPine BESYLATE 5 MG TAB PO SCH (08:03)
[2021-07-11] MEDS: MULTIVITAMIN TAB PO SCH (08:03)
[2021-07-11] MEDS: FERROUS SULFATE 325 MG TAB PO SCH ×2 (08:04→17:58)
[2021-07-11] MEDS: THIAMINE HCL 100 MG TAB PO SCH (08:04)
[2021-07-11] MEDS: UMECLIDINIUM/VILANTEROL 62.5/25MCG 7 PUFFS/INHALER INH SCH (08:05)
--- NOTE | 2021-07-11 08:08 | XRay Report ---
XR chest 1V portable CLINICAL HISTORY: low o2. Difficulty breathing COMPARISON STUDY: 07/08/2021 TECHNIQUE: 1 view of the chest FINDINGS: Single frontal view of the chest demonstrates the heart size to again be enlarged. Compared to the pr evious examination, there has been significant worsening of diffuse interstitial and alveolar opaciti es bilaterally. The findings are most characteristic of a viral type pneumonitis and probable Covid p neumonia. There is no evidence for pleural effusion. There is no evidence for vascular congestion. Th ere is no acute osseous pathology. IMPRESSION: Significant interval worsening of interstitial and alveolar opacities bilaterally most ch aracteristic of a viral type pneumonitis and Covid pneumonia. ACT 112: Negative or not required by law. Electronically signed by: Mateo Ovalle M.D. 07/11/2021 8:07 AM
--- NOTE | 2021-07-11 09:37 | Gastroenterology Progress Note ---
Date of Service July 11, 2021 Assessment & Plan (1) Colonic mass: Plan: Appreciate primary hospitalists efforts to optimize cardiorespiratory status. Continue colonoscopy prep this afternoon/evening. Plan for colonoscopy tomorrow morning. Clear liquid diet today and NPO after midnight. Admission and Anticipated Discharge Date Admission Date: July 09, 2021 Supervising Physician Co-Signing Physician Notes I saw and evaluated the patient on July 11. We were initially planning to do a colonoscopy today however due to evidence of congestive heart failure the examination was canceled. We will have the patient continue drink a bowel preparation this afternoon with hopes that his respiratory and cardiac status will be improved when examination tomorrow. Subjective 66 yr old male admitted 07/[address] with a possible rectal mass. He had a fair response to colonoscopy prep. Liquid brown BMs, no blood noted. Hb from 12->10 but possible partially due to IV fluids. After anesthesia reviewed records this morning, they recommend holding off from sedating for colonoscopy due to concern regarding CHF. Pt sitting up on the side of the bed. No CP or SOB. Has had O2 at 2L/min by RI but at time of exam, not using O2. He is awake, alert, oriented, pleasant. Agrees to additional colon prep this evening and colonoscopy tomorrow. Review of Systems Review of Systems: ROS: Gen: Denies weakness, fevers, weight loss Eyes: No eye redness, or pain, no recent vision changes Resp: No SOB, no cough Cardio: No palpitations/irregular beats, no chest pain GI: As per HPI, otherwise (-) : Denies pain on urination Skin: No jaundice, itching or new rashes Physical Exam Constitutional: well developed, + obese and cooperative Eyes: PERRL, conjunctivae normal, anicteric sclerae ENMT: external ear and nose normal, oropharynx normal Neck: trachea midline, no thyromegaly Respiratory: normal respiratory effort and able to speak in complete s entences; no respiratory distress, no labored breathing, does not use accessory muscles and no cough Cardiovascular: Rate/Rhythm: regular rate and regular rhythm Heart Sounds: + murmur (2-3/6 systolic) Extremities: + edema (lower leg - compression stockings) Gastrointestinal (Abdomen): normal bowel sounds, soft, nontender, no hepatosplenomegaly Neurologic: PERRL, EOMI, accommodation nl, no face palsy, no dysarthria awake; not confused Psychiatric: A+Ox3, euthymic affect Results & Data ([facility]) Vital Signs (Past 12 Hours) Vital Signs Temp Pulse Pulse Resp BP Pulse Ox 07/11/21 07:00 36.6 C 59 L 20 148/73 H 94 07/11/21 06:10 60 18 98 07/11/21 06:00 60 119/71 94 07/11/21 04:49 83 152/79 H 07/11/21 03:08 36.6 C 62 18 136/74 95 07/11/21 00:21 64 129/63 94 07/10/21 23:19 36.4 C L 61 18 127/77 92 07/10/21 22:19 69 Laboratory Results WBC8.6, Hb 10, Hct 31, Plts 217, Na 139, K 3.7, Cl 107, CO2 24, BUN 13, Cr 0.9, glucose 113. Diagnostic Findings CTAP w IV 07/08/21 1. There is a 3.2 cm focus of asymmetric wall thickening with increased enhancement within the rectum approximately 7.5 cm from the anal verge. This finding should be correlated with colonoscopy to exclude malignancy. 2. No bowel obstruction or pneumoperitoneum. 3. No adenopathy identified. 4. Prostamegaly. 5. 10 mm nonobstructing left renal calculus.
[2021-07-11] MEDS: hydrALAZINE HCL 25 MG TAB PO SCH ×3 (09:49→21:41)
[2021-07-11] MEDS ORDERED: INSULIN ASPART PER UNIT SC SCH (12:00)
[2021-07-11] MEDS: INSULIN ASPART PER UNIT SC SCH ×3 (12:56→21:38)
--- NOTE | 2021-07-11 13:43 | Hospitalist Progress Note ---
Date of Service July 11, 2021 Assessment & Plan (1) Hypoxia: Plan: 66 year old male with medical history significant for chronic diastolic heart failure (EF 60 to 65%, TTE 2020), CAD as per records, hypertension, hyperlipidemia, COPD, FRANCIS/CPAP intolerance, DM2 on oral medications, mood disorder, chronic anemia (baseline hemoglobin of 10), medication noncompliance as per family, past tobacco abuse who presented to the ED by referral of home health nurse. Overnight, patient was noted to have a 10 beat run of nonsustained V. tach. Patient asymptomatic. Per RN, patient was 88% on room air and improved to 2 L of oxygen via nasal cannula. Labs and CXR ordered by civil engineering design draftsperson. Labs showing mild JARROD with creatinine 1.4, CXR showing worsening of interstitial and alveolar opacities bilaterally. Lisinopril placed on hold, patient given potassium and magnesium replacement, Lasix 20 mg IV, albumin. Patient currently sitting on the edge of the bed, saturating well on room air. Denies chest pain, cough, or shortness of breath. Repeat COVID 19 testing negative As above, patient received Lasix. Continue to monitor response throughout the day. Repeat CXR in the morning. Given lack of pulmonary complaint, hold on further treatment at this time. (2) NSVT (nonsustained ventricular tachycardia): Plan: 10 beat run of nonsustained V. tach noted overnight Patient asymptomatic Continue to monitor on telemetry Optimize electrolytes Continue beta-iglesia (3) JARROD (acute kidney injury): Plan: Mild, creatinine 1.4, possibly due to colonoscopy prep from overnight Received Lasix and albumin as above Lisinopril on hold Follow-up BMP tomorrow (4) Hematochezia: (5) Colonic mass: Plan: Patient unsure of rectal bleeding CT ABD/pelvis showing There is a 3.2 cm focus of asymmetric wall thickening with increased enhancement within the rectum approximately 7.5 cm from the anal verge. Initially scheduled for colonoscopy today however due to above events, anesthesia canceled procedure. Likely to be rescheduled tomorrow (6) Hypertensive urgency: Plan: Presenting BP 200/97 2/2 noncompliance with medication Home hydralazine increased to 25 mg 3 times daily with improvement in BP Continue amlodipine, labetalol Hold lisinopril as above (7) Anemia: Plan: chronic, mild and improved compared to prior numbers in recent months Continue to monitor CBC (8) Diabetes mellitus, type II: Plan: Hgb A1c 6.9 04/2021 Lantus and NovoLog per protocol hospitalized (9) FRANCIS (obstructive sleep apnea): Plan: reported noncompliance with CPAP (10) Morbid obesity: Plan: BMI 43.8 (11) Depression: Plan: Stable, continue home meds (12) Alcohol abuse: Plan: Reports upwards of 12 beers daily. No overt withdrawal. Cont AWSS (13) DVT prophylaxis: Plan: SCDs in setting of possible hematochezia Dispo- Pending. Patient advised for rehab last admission however signed out AMA. Admission and Anticipated Discharge Date Admission Date: July 09, 2021 Supervising Physician Co-Signing Physician Notes I have seen and examined the patient and have discussed the case with the provider above. I agree with the assessment and plan as stated. Patient replies "I don't know" when asked questions today. Cannot get a reliable ROS from him. Per records he prepped for colonoscopy overnight and then became short of breath, which he reports not remembering. Therefore, he also cannot tell me if he is better after the Lasix. He doesn't know if he is still having rectal bleeding. Normal heart and lung auscultation today, morbidly obese man who is very deconditioned, protuberant abdomen that is soft, NT, ND. Ther are no new respiratory symptoms or fever. He underwent a CXR last night in response to a 10 beat run of vtach. CXR revealed possible worsening opacities consistent with a viral pneumonitis, however, patient is not exhibiting symptoms of viral pneumonia at this time and repeat COVID screening test is negative. Plan for colonoscopy per GI tomorrow. Kyrie, DO Subjective Patient seen and examined. Follow-up for hypertensive urgency, anemia, possible rectal mass noted on CT scan. Overnight, patient was noted to have a 10 beat run of nonsustained V. tach. Patient asymptomatic. Labs and CXR ordered by civil engineering design draftsperson. Labs showing mild JARROD with creatinine 1.4, CXR showing worsening of interstitial and alveolar opacities bilaterally. Lisinopril placed on hold, patient given potassium and magnesium replacement, Lasix 20 mg IV, albumin. Initially planned for colonoscopy today however canceled by anesthesia due to above. Patient seen earlier this morning, sitting at the edge of the bed. Currently on room air. No acute distress. Offers no complaints. Denies chest pain and shortness of breath. No abdominal pain or nausea. Tolerated colonoscopy overnight. Review of Systems Review of Systems: ROS per HPI, all other systems reviewed and negative Physical Exam Constitutional: WD/WN, vitals as above no acute distress Respiratory: normal respiratory effort; no respiratory distress Auscultation: + diminished lung sounds (Left-sided) Cardiovascular: Rate/Rhythm: regular rate and regular rhythm Vessels: normal peripheral pulses Extremities: no edema Gastrointestinal (Abdomen): Percussion/Palpation: abdomen soft; abdomen nontender Skin: no rashes, warm and dry Neurologic: no focal motor deficits Psychiatric: A+Ox3, euthymic affect Results & Data Results & Data ([facility]) Vital Signs (Past 12 Hours) Vital Signs Temp Pulse Resp BP Pulse Ox 07/11/21 12:00 36.6 C 65 22 168/80 H 91 07/11/21 07:00 36.6 C 59 L 20 148/73 H 94 07/11/21 06:10 60 18 98 07/11/21 06:00 60 119/71 94 07/11/21 04:49 83 152/79 H 07/11/21 03:08 36.6 C 62 18 136/74 95 Laboratory Results Short CBC 07/08/21 07/09/21 07/11/21 Range/Units 18:02 06:44 04:32 WBC 8.64 (4.8-10.8) K/uL Hgb 10.0 L (14.0-18.0) g/dL Hct 31.7 L (42-52) % Plt Count 217 (130-400) K/uL Creatinine 1.21 1.10 (0.6-1.4) mg/dl 07/11/21 Range/Units 04:32 WBC (4.8-10.8) K/uL Hgb (14.0-18.0) g/dL Hct (42-52) % Plt Count (130-400) K/uL Creatinine 1.42 H D (0.6-1.4) mg/dl BMP 07/11/21 04:32 Sodium 139 Potassium 3.7 Chloride 107 Carbon Dioxide 24 BUN 28 H Creatinine 1.42 H D Glucose 96 Calcium 8.6 Diagnostic Findings Chest X-Ray 07/11/21 05:57 XR chest 1V portable CLINICAL HISTORY: low o2. Difficulty breathing COMPARISON STUDY: 07/08/2021 TECHNIQUE: 1 view of the chest FINDINGS: Single frontal view of the chest demonstrates the heart size to again be enlarged. Compared to the previous examination, there has been significant worsening of diffuse interstitial and alveolar opacities bilaterally. The fi ndings are most characteristic of a viral type pneumonitis and probable Covid pneumonia. There is no evidence for pleural effusion. There is no evidence for vascular congestion. There is no acute osseous pathology. IMPRESSION: Significant interval worsening of interstitial and alveolar opacities bilaterally most characteristic of a viral type pneumonitis and Covid pneumonia. ACT 112: Negative or not required by law. Electronically signed by: Mateo Ovalle M.D. 07/11/2021 8:07 AM (1) Anemia Anemia type: unspecified type Qualified Code(s): D64.9 - Anemia, unspecified
[2021-07-11] MEDS ORDERED: POLYETHYLENE (MIRALAX) 17 GM PACK PO SCH (16:00)
[2021-07-11] MEDS: TAMSULOSIN HCL 0.4 MG CAP PO SCH (17:59)
[2021-07-11] MEDS: ATORVASTATIN 40 MG TAB PO SCH (21:40)
[2021-07-11] MEDS: MONTELUKAST SODIUM 10 MG TABLET PO SCH (21:41)
[2021-07-12] MEDS ORDERED: Nursing to Pharmacy Communication SCH (00:30)
[2021-07-12] MEDS: INSULIN ASPART PER UNIT SC SCH ×4 (05:32→20:36)
[2021-07-12 06:39] LABS: Hematocrit (blood only) 33.3 % (42-52); Hemoglobin 10.4 g/dL (14.0-18.0); Mean Corpuscular Hemoglobin 26.3 pg (25-34); Mean Corpuscular Hgb Conc 31.2 g/dL (32-36); Mean Corpuscular Volume 84.3 fL (80-100); Mean Platelet Volume 10.1 fL (7.4-10.4); Platelet Count 250 K/uL (130-400); RDW Coefficient of Variation 17.4 % (11.5-14.5); RDW Standard Deviation 54.7 fL (36.4-46.3); Red Blood Count 3.95 M/uL (4.7-6.1)
[2021-07-12 07:21] LABS: BUN Creatinine Ratio 16.4 (10-20); Calcium 9.1 mg/dl (8.5-10.1); Creatinine Clr Calc Pharmacy 95.1 ml/min; Est GFR (African American) 72.2 ml/min; Est GFR (Non-African American) 62.3 ml/min; Potassium 3.8 mmol/L (3.5-5.1)
[2021-07-12] MEDS: INSULIN GLARGINE SOLOSTAR 100 UNITS/ML 3 ML PEN SC SCH (07:48)
[2021-07-12] MEDS: FERROUS SULFATE 325 MG TAB PO SCH ×2 (07:59→16:08)
[2021-07-12] MEDS: MULTIVITAMIN TAB PO SCH (08:00)
[2021-07-12] MEDS: FOLIC ACID 1 MG TAB PO SCH (08:00)
[2021-07-12] MEDS: THIAMINE HCL 100 MG TAB PO SCH (08:00)
[2021-07-12] MEDS: LABETALOL HCL 100 MG TAB PO SCH ×2 (08:01→21:07)
[2021-07-12] MEDS: UMECLIDINIUM/VILANTEROL 62.5/25MCG 7 PUFFS/INHALER INH SCH (08:01)
[2021-07-12] MEDS: hydrALAZINE HCL 25 MG TAB PO SCH ×3 (08:01→21:08)
[2021-07-12] MEDS: GABAPENTIN 100 MG CAP PO SCH ×3 (08:02→21:08)
[2021-07-12] MEDS: allopurinoL 300 MG TAB PO SCH (08:03)
[2021-07-12] MEDS: SERTRALINE HCL 100 MG TABLET PO SCH (08:04)
[2021-07-12] MEDS: DULoxetine HCL 60 MG CAP PO SCH (08:04)
[2021-07-12] MEDS: amLODIPine BESYLATE 5 MG TAB PO SCH (08:05)
[2021-07-12] MEDS: PANTOprazole 40 MG TAB PO SCH (08:06)
--- NOTE | 2021-07-12 08:21 | XRay Report ---
XR chest 1V portable HISTORY: Congestive heart failure. Follow-up. Shortness of breath. COMPARISON: Chest 07/11/2021. FINDINGS: No pneumothorax. No pleural effusions. The heart remains mildly enlarged. Hazy and coarse i nterstitial opacities seen within the lungs, right greater than left are again noted. This is improve d in the interval. IMPRESSION: Interval improvement in the hazy and coarse interstitial markings within the lungs suggesting resolvi ng pneumonitis/edema on the background of chronic interstitial change. ACT 112: Negative or not required by law. Electronically signed by: David Dillon M.D. 07/12/2021 8:19 AM
--- NOTE | 2021-07-12 10:09 | Gastroenterology Progress Note ---
Date of Service July 12, 2021 Assessment & Plan (1) Colonic mass: Plan: Appreciate primary hospitalists efforts to optimize cardiorespiratory status. Continue colonoscopy prep this afternoon/evening. Plan for colonoscopy this morning morning. Please keep NPO. Further recommendations to follow colonsocopy and review of path/cytology. Admission and Anticipated Discharge Date Admission Date: July 09, 2021 Supervising Physician Co-Signing Physician Notes I saw and evaluated the patient. We are planning to do a colonoscopy this morning for evaluation of his suspected rectal mass. We have discussed the risks and benefits to include bleeding, infection, perforation and need for follow-up studies. Subjective 66 yr old male Presented for hypertensive urgency on 07/08/21. CT with rectal asymmetry, r/o mass. Prepped for colonoscopy today. Pt tells me several liquid BMs. Review of Systems Review of Systems: ROS: Gen: Denies weakness, fevers, weight loss Eyes: No eye redness, or pain, no recent vision changes Resp: No SOB, no cough Cardio: No palpitations/irregular beats, no chest pain GI: As per HPI, otherwise (-) : Denies pain on urination Skin: No jaundice, itching or new rashes Physical Exam Constitutional: well developed, + obese and cooperative Eyes: PERRL, conjunctivae normal, anicteric sclerae ENMT: external ear and nose normal, oropharynx normal Neck: trachea midline, no thyromegaly Respiratory: normal respiratory effort, lungs clear to auscultation normal respiratory effort and able to speak in complete sentences; no respiratory distress, no labored breathing, does not use accessory muscles and no cough Cardiovascular: Rate/Rhythm: regular rate and regular rhythm Heart Sounds: normal S1, normal S2 and + murmur (2-3/6 systolic) Extremities: + edema (lower leg - compression stockings) Gastrointestinal (Abdomen): normal bowel sounds, soft, nontender, no hepatosplenomegaly Skin: no rashes, warm and dry normal turgor Neurologic: PERRL, EOMI, accommodation nl, no face palsy, no dysarthria awake; not confused Psychiatric: A+Ox3, euthymic affect Orientation: alert, oriented x 3 and cooperative Lymphatic: no cervical or axillary lymphadenopathy Results & Data ([facility]) Vital Signs (Past 12 Hours) Vital Signs Temp Pulse Pulse Resp BP Pulse Ox 07/12/21 07:53 36.4 C L 63 22 161/78 H 96 07/12/21 03:43 36.8 C 56 L 16 158/69 H 93 07/11/21 22:30 36.8 C 70 18 140/70 90 07/11/21 22:18 61 Laboratory Results WBC 8, Hb 10.4, Hct 33.4, Plts 50, Na 137, K 3.8, Cl 108, CO2 21, BUN 20, Cr 1.22, glucose 118. Diagnostic Findings CTAP w IV contrast on 07/08/21: 1. There is a 3.2 cm focus of asymmetric wall thickening with increased enhancement within the rectum approximately 7.5 cm from the anal verge. This finding should be correlated with colonoscopy to exclude malignancy. 2. No bowel obstruction or pneumoperitoneum. 3. No adenopathy identified. 4. Prostamegaly. 5. 10 mm nonobstructing left renal calculus.
--- NOTE | 2021-07-12 10:38 | Anesthesiology Consultation ---
Date of Service July 12, 2021 Assessment & Plan (1) Encounter for pre-operative examination: Chart Review Chart Review: Acceptable Risk for Surgery, Patient NOT seen in Pre Admission Testing and data entry specialist initiated Consults Requested none ASA ASA3 Proposed Anesthesia Anesthesia Type: MAC Risk / Benefits Reviewed With: PT / POA / Parent / Guardian, Accepts Plan and Informed Consent Obtained History Surgery Operation Date: 07/11/21 08:10 Proposed Procedures p Endoscopic Ultrasonography Sahil Rojo DO s Colonoscopy Jennie Rojo DO Operation Date: 07/11/21 16:00 Proposed Procedures p Colonoscopy Dr Darrel Rojo DO Operation Date: 07/12/21 16:00 Proposed Procedures p Colonoscopy Dr Darrel Rojo DO Height/Weight Height: 6 ft 1 in Weight: 154.8 kg Allergies Allergy/AdvReac Type Severity Reaction Status Date / Time No Known Allergies Allergy Verified 07/08/21 19:04 Medications Home Medications Medication Instructions Recorded Confirmed Last Taken polyethylene glycol 3350 17 gram 17 g PO DAILY PRN 11/29/20 07/08/21 Unknown oral powder packet (Miralax) blood sugar diagnostic (Gluco #50 ea 05/09/21 05/22/21 Unknown Navii Test Strip) blood-glucose meter (Gluco Navii #1 ea 05/09/21 05/22/21 Unknown Glucose Monitor) lancets #100 ea 05/09/21 05/22/21 Unknown acetaminophen 325 mg tablet 650 mg PO Q4 PRN #30 tab 06/15/21 07/08/21 Unknown (Tylenol) albuterol sulfate 90 mcg/actuation 2 puff INHALATION QID PRN #8.5 g 06/15/21 07/08/21 Unknown aerosol inhaler (Ventolin HFA) allopurinol 300 mg tablet 300 mg PO DAILY #30 tab 06/15/21 07/08/21 Unknown amlodipine 5 mg tablet (Norvasc) 10 mg PO DAILY #60 tab 06/15/21 07/08/21 07/08/21 atorvastatin 40 mg tablet 40 mg PO HS #30 tab 06/15/21 07/08/21 07/07/21 bumetanide 1 mg tablet 1 mg PO DAILY #30 tab 06/15/21 07/08/21 07/08/21 diclofenac sodium 1 % topical gel 4 g EXT BID #100 g 06/15/21 07/08/21 Unknown (Voltaren Arthritis Pain) docusate sodium 100 mg capsule 100 mg PO BID PRN #60 cap 06/15/21 07/08/21 Unknown (Stool Softener) duloxetine 60 mg capsule,delayed 60 mg PO DAILY #30 cap 06/15/21 07/08/2107/08 release ferrous sulfate 325 mg (65 mg 325 mg PO BIDM #14 tab 06/15/21 07/08/21 Unknown iron) tablet,delayed release gabapentin 100 mg capsule 200 mg PO TID #180 cap 06/15/21 07/08/21 07/08/21 hydralazine 10 mg tablet 20 mg PO BID #60 tab 06/15/21 07/08/21 Unknown labetalol 100 mg tablet 100 mg PO BID #60 tab 06/15/21 07/08/21 Unknown metformin 500 mg tablet 500 mg PO BIDWMEAL #60 tab 06/15/21 07/08/21 Unknown montelukast 10 mg tablet 10 mg PO HS #30 tab 06/15/21 07/08/21 07/07/21 (Singulair) pantoprazole 40 mg tablet,delayed 40 mg PO DAILY #30 tab 06/15/21 07/08/21 07/08/21 release potassium chloride 20 mEq 20 meq PO DAILY #30 tab 06/15/21 07/08/21 07/08/21 tablet,extended release(part/cryst) sertraline 100 mg tablet (Zoloft) 100 mg PO DAILY #30 tab 06/15/21 07/08/21 07/08/21 tamsulosin 0.4 mg capsule (Flomax) 0.8 mg PO DAILY #30 cap 06/15/21 07/08/21 07/08/21 umeclidinium 62.5 mcg-vilanterol 1 inh INHALATION DAILY #14 ea 06/15/21 07/08/21 Unknown 25 mcg/actuation powdr for inhalation (Anoro Ellipta) lisinopril 30 mg tablet (Zestril) 40 mg PO DAILY 07/09/21 07/09/21 Unknown Active Medications Generic Name Dose Route Start Last Admin Trade Name Freq PRN Reason Stop Dose Admin Acetaminophen 650 mg 07/08/21 22:10 07/11/21 06:05 Acetaminophen 325 Mg Tab PO 08/07/21 22:09 650 mg Q4 PRN Administration PAIN , SCALE 1-3 Allopurinol 300 mg 07/09/21 09:00 07/12/21 08:03 Allopurinol 300 Mg Tab PO 08/08/21 08:59 300 mg DAILY ZOHAIB Administration Amlodipine Besylate 10 mg 07/09/21 09:00 07/12/21 08:05 Amlodipine Besylate 5 Mg Tab PO 08/08/21 08:59 10 mg DAILY ZOHAIB Administration Atorvastatin Calcium 40 mg 07/08/21 22:10 07/11/21 21:40 Atorvastatin 40 Mg Tab PO 08/07/21 22:09 40 mg HS ZOHAIB Administration Duloxetine HCl 60 mg 07/09/21 09:00 07/12/21 08:04 Duloxetine Hcl 60 Mg Cap PO 08/08/21 08:59 60 mg DAILY ZOHAIB Administration Ferrous Sulfate 325 mg 07/09/21 08:00 07/12/21 07:59 Ferrous Sulfate 325 Mg Tab PO 08/08/21 07:59 Not Given BIDM ZOHAIB Folic Acid 1 mg 07/08/21 22:10 07/12/21 08:00 Folic Acid 1 Mg Tab PO 08/07/21 22:09 Not Given QAM [facility] Gabapentin 200 mg 07/08/21 22:10 07/12/21 08:02 Gabapentin 100 Mg Cap PO 08/07/21 22:09 200 mg TID [facility] Administration Hydralazine HCl 25 mg 07/09/21 07:00 07/12/21 08:01 Hydralazine Hcl 25 Mg Tab PO 08/08/21 06:59 25 mg TID ZOHAIB Administration Insulin Aspart 0 units 07/12/21 06:00 07/12/21 05:32 Insulin Aspart Per Unit SC 08/11/21 05:59 Not Given Q6 [facility] Insulin Glargine 5 units 07/12/21 09:00 07/12/21 07:48 Insulin Glargine Solostar 100 Units/Ml 3 Ml Pen SC 08/11/21 08:59 Not Given DAILY [facility] Labetalol HCl 100 mg 07/11/21 04:15 07/12/21 08:01 Labetalol Hcl 100 Mg Tab PO 08/10/21 04:14 100 mg BID ZOHAIB Administration Lisinopril 40 mg 07/09/21 09:00 07/10/21 09:39 Lisinopril 40 Mg Tab PO 08/08/21 08:59 40 mg QAM ZOHAIB Administration Montelukast Sodium 10 mg 07/08/21 22:10 07/11/21 21:41 Montelukast Sodium 10 Mg Tablet PO 08/07/21 22:09 10 mg HS ZOHAIB Administration Multivitamins 1 tab 07/09/21 09:00 07/12/21 08:00 Multivitamin Tab PO 08/08/21 08:59 Not Given QAM ZOHAIB Pantoprazole Sodium 40 mg 07/09/21 09:00 07/12/21 08:06 Pantoprazole 40 Mg Tab PO 08/08/21 08:59 Not Given DAILY ZOHAIB Sertraline HCl 100 mg 07/09/21 09:00 07/12/21 08:04 Sertraline Hcl 100 Mg Tablet PO 08/08/21 08:59 100 mg DAILY ZOHAIB Administration Tamsulosin HCl 0.8 mg 07/09/21 16:30 07/11/21 17:59 Tamsulosin Hcl 0.4 Mg Cap PO 08/08/21 16:29 0.8 mg QDD ZOHAIB Administration Thiamine HCl 100 mg 07/08/21 22:10 07/12/21 08:00 Thiamine Hcl 100 Mg Tab PO 08/07/21 22:09 Not Given QAM ZOHAIB Umeclidinium/Vilanterol 1 puffs 07/09/21 09:00 07/12/21 08:01 Umeclidinium/Vilanterol 62.5/25mcg 7 Puffs/Inhaler INH 08/08/21 08:59 1 puffs DAILY ZOHAIB Administration NPO Date Last Intake of Fluids: 07/11/21 Time Last Intake of Fluids: 19:00 Date Last Intake of Solids: 07/10/21 Past Medical History Medical History Abnormal posture Ambulatory dysfunction Anemia Chronic diastolic CHF (congestive heart failure) Chronic respiratory failure with hypoxia Coronary artery disease Depression Diabetes mellitus, type II Gout History of blood transfusion History of COVID-19 Hyperlipidemia Hypertension Mood disorder Morbid obesity FRANCIS (obstructive sleep apnea) Septic arthritis Ventricular tachycardia Wrist arthritis Wrist arthritis Exercise / Class Metabolic Activity IV < 2 Limit ADL/Bedbound Past Family History Family History Other Throat cancer Past Surgical History Surgical History Cataract extraction status, unspecified eye H/O knee surgery History of incision and drainage Past Anesthesia History No Hx of Anesthesia Complications and No Family Hx of Anesthesia Complications History of PONV No Hx of PONV and No Hx of Motion Sickness Social History tobacco type: smokeless tobacco (Quit) Hx Alcohol Use: Yes Alcohol type: beer alcohol intake frequency: a few times a week Hx Substance Use: Yes substance use type: marijuana Last Used Substance: Days (ago) Physical Exam Vital Signs Last Vital Signs Temp 36.7 C 07/12/21 10:22 Pulse 63 07/12/21 10:22 Resp 16 07/12/21 10:22 BP 164/73 H 07/12/21 10:22 Pulse Ox 98 07/12/21 10:22 ENMT Mouth: + dentition abnormality (Missing) and + chipped teeth; no loose teeth Thyromental Distance: > or= 3.5 Finger Breadths Mallampati Class: II Neck normal visual inspection, trachea midline, + thick neck and + facial hair; neck extension not limited Respiratory normal respiratory effort; no respiratory distress Auscultation: lungs clear to auscultation bilaterally; no crackles, no rhonchi and no wheezes Cardiovascular Rate/Rhythm: regular rate and regular rhythm Heart Sounds: no gallop, no murmur and no cardiac rub Neurologic moves all extremities and awake Psychiatric Orientation: alert Testing Laboratory Results 07/12/21 05:23 07/12/21 05:23 PT 9.8 Seconds (9.0-12.0) 07/08/21 18:05 INR 1.0 (0.9-1.1) 07/08/21 18:05 Urine Color Yellow 07/08/21 18:00 Urine Appearance Clear (Clear) 07/08/21 18:00 Urine pH 6.0 (4.5-7.5) 07/08/21 18:00 Ur Specific Benoit 1.021 (1.000-1.030) 07/08/21 18:00 Urine Protein 3+ (Negative) H 07/08/21 18:00 Urine Glucose (UA) Negative (Negative) 07/08/21 18:00 Urine Ketones Negative (Negative) 07/08/21 18:00 Urine Nitrite Negative (Negative) 07/08/21 18:00 Ur Leukocyte Esterase Negative (Negative) 07/08/21 18:00 Urine WBC (Auto) 1-5 /hpf (0-5) 07/08/21 18:00 Urine RBC (Auto) 0-4 /hpf (0-4) 07/08/21 18:00 U Hyaline Cast (Auto) 5-10 /lpf (0-5) H 07/08/21 18:00 U Epithel Cells (Auto) >30 /lpf (0-5) H 07/08/21 18:00 Urine Bacteria (Auto) Negative (Negative) 07/08/21 18:00 Blood Type A Positive 07/08/21 20:13 Antibody Screen NEGATIVE 07/08/21 20:13 07/12/21 05:30 POC Glucose 118 H Electrocardiogram Date: 07/08/21 Findings: + NSR @ and + RBBB LAFB PVCs Chest X-Ray Date: 07/12/21 Findings: + infiltrate and + pulmonary vascular congestion Resolving pneumonitis/edema
[2021-07-12] MEDS ORDERED: PROPOFOL IV EMULSION 10 MG/ML 20 ML VIAL IV ONE ×2 (11:09→12:00)
[2021-07-12] MEDS ORDERED: LIDOCAINE 2% 2 ML VIAL/AMP(20MG/ML) INFIL ONE (11:09)
[2021-07-12] MEDS ORDERED: KETAMINE 50 MG/5 ML SYRINGE ONE (11:44)
--- NOTE | 2021-07-12 12:05 | GI REPORT ---
Patient Name: Haim Chueng Procedure Date: 07/12/2021 11:13 AM Date of : 1955 Admit Type: Inpatient Age: 66 Gender: Male Attending MD: Maria Esther Rojo DO Procedure: Colonoscopy Providers: Maria Esther Rojo DO Referring MD: Bren Rice Md, Pily Bishop Indications: Hematochezia, Abnormal CT of the GI tract Medicines: Monitored Anesthesia Care Complications: No immediate complications. Estimated blood loss: Minimal. Estimated Blood Loss: Estimated blood loss was minimal. Procedure: Pre-Anesthesia Assessment: - Prior to the procedure, a History and Physical was performed, and patient medications, allergies and sensitivities were reviewed. The patient's tolerance of previous anesthesia was reviewed. - The risks and benefits of the procedure and the sedation options and risks were discussed with the patient. All questions were answered and informed consent was obtained. - Patient identification and proposed procedure were verified prior to the procedure by the physician, the nurse and the school office manager. The procedure was verified in the procedure room. - Pre-procedure physical examination revealed no contraindications to sedation. - ASA Grade Assessment: III - A patient with severe systemic disease. - After reviewing the risks and benefits, the patient was deemed in satisfactory condition to undergo the procedure. - The anesthesia plan was to use monitored anesthesia care (MAC). - Immediately prior to administration of medications, the patient was re-assessed for adequacy to receive sedatives. - The heart rate, respiratory rate, oxygen saturations, blood pressure, adequacy of pulmonary ventilation, and response to care were monitored throughout the procedure. - The physical status of the patient was re-assessed after the procedure. After I obtained informed consent, the scope was passed under direct vision. Throughout the procedure, the patient's blood pressure, pulse, and oxygen saturations were monitored continuously. The scope was introduced through the anus and advanced to the cecum, identified by appendiceal orifice and ileocecal valve. The colonoscopy was performed without difficulty. The patient tolerated the procedure well. The quality of the bowel preparation was fair. Findings: The perianal and digital rectal examinations were normal. Pertinent negatives include normal sphincter tone. Three semi-sessile polyps were found in the hepatic flexure. The polyps were 5 to 8 mm in size. These polyps were removed with a hot snare. Resection and retrieval were complete. The pathology specimen was placed into Bottle A. Estimated blood loss was minimal. Two sessile polyps were found in the transverse colon. The polyps were 4 to 5 mm in size. These polyps were removed with a cold snare. Resection and retrieval were complete. The pathology specimen was placed into Bottle B. Estimated blood loss was minimal. An ulcerated non-obstructing medium-sized mass was found in the rectum at 7 cm from the dentate. The mass was non-circumferential and 3 cm in its largest dimension. No bleeding was present. Initially the lesion appeared to amenable to EMR. The area was unsuccessfully injected with 16 mL saline for a lift polypectomy and notable for a large area of nonlifting consistent with penetration of the deeper mucosal layers. This was biopsied with a hot snare for histology. The pathology specimen was placed into Bottle C. Coagulation for hemostasis of bleeding caused by the procedure using argon plasma at 1 liter/minute and 20 rodriguez was successful. Estimated blood loss was minimal. Internal hemorrhoids were found during retroflexion. The hemorrhoids were mild. Impression: - Preparation of the colon was fair. - Three 5 to 8 mm polyps at the hepatic flexure, removed with a hot snare. Resected and retrieved. - Two 4 to 5 mm polyps in the transverse colon, removed with a cold snare. Resected and retrieved. - Rule out malignancy, tumor in the rectum. Biopsied with snare resection of the edge. - Internal hemorrhoids. Recommendation: - [facility]. - Advance diet as tolerated today. - Await pathology results. - Perform a lower endoscopic ultrasound (LEUS) at appointment to be scheduled. - Refer to a colo-rectal surgeon at appointment to be scheduled. Maria Esther Rojo D.O. Maria Esther Rojo, 07/12/2021 12:04:34 PM This report has been signed electronically. Note Initiated On: 07/12/2021 11:13 AM Number of Addenda: 0 I attest to the content of the Intraoperative Record and orders documented therein, exceptions below {[id number]}
--- NOTE | 2021-07-12 12:06 | Communication Note ---
Date of Service: July 12, 2021 The patient underwent colonoscopy today. This was notable for a fair bowel preparation. The patient was found to have several polyps in the region of the hepatic flexure which were removed with snare polypectomy. He was also found to have 2 polyps in the region of the transverse colon which were removed with snare polypectomy as well. The patient was finally found to have a 3 cm ulcerated polyp in the rectum. Attempt at mucosal resection was made however upon injection of the base nonlifting was noted. Therefore a portion of the mass was removed for histology. Recommendations Avoid anticoagulation for 5 days possible Await pathology results Outpatient transrectal ultrasound to be scheduled Outpatient referral to colorectal surgery to be scheduled If pathology shows malignancy would then refer to a medical oncologist as well Please call with any questions or concerns during the remainder of the hospital admission
--- NOTE | 2021-07-12 15:18 | Anesthesiology Progress Note ---
Date of Service July 12, 2021 Anesthesia Post Procedure Vital Signs Vital Signs: Temp Pulse Pulse Resp BP BP Pulse Ox 07/12/21 15:14 60 07/12/21 12:35 59 L 20 158/72 H 95 07/12/21 12:21 63 20 139/61 99 07/12/21 12:06 61 20 129/57 L 95 07/12/21 10:22 36.7 C 63 16 164/73 H 98 07/12/21 08:00 66 07/12/21 07:53 36.4 C L 63 22 161/78 H 96 07/12/21 03:43 36.8 C 56 L 16 158/69 H 93 07/11/21 22:30 36.8 C 70 18 140/70 90 07/11/21 22:18 61 07/11/21 21:34 172/89 H 07/11/21 20:00 36.4 C L 84 18 154/81 H 92 07/11/21 17:00 76 07/11/21 16:00 36.6 C 84 22 142/70 H 92 Pain Intensity Head: Pain Intensity: 8 Transfer of Care Handoff Completed per policy Notes Mental Status: alert / awake / arousable and participated in evaluation Patient Amnestic to Procedure: Yes Nausea / Vomiting: adequately controlled Pain: adequately controlled Airway Patency, RR, SpO2: stable & adequate BP & HR: stable & adequate Hydration State: stable & adequate Anesthetic Complications: no major complications apparent and Pt Satisfied with anesthetic care
--- NOTE | 2021-07-12 15:19 | Hospitalist Progress Note ---
Date of Service July 12, 2021 Assessment & Plan (1) Hypoxia: Plan: 66 year old male with medical history significant for chronic diastolic heart failure (EF 60 to 65%, TTE 2020), CAD as per records, hypertension, hyperlipidemia, COPD, FRANCIS/CPAP intolerance, DM2 on oral medications, mood disorder, chronic anemia (baseline hemoglobin of 10), medication noncompliance as per family, past tobacco abuse who presented to the ED by referral of home health nurse. 07/11 - Overnight, patient was noted to have a 10 beat run of nonsustained V. tach. Patient asymptomatic. Per RN, patient was 88% on room air and improved to 2 L of oxygen via nasal cannula. Labs and CXR ordered by jeramy. Labs showing mild JARROD with creatinine 1.4, CXR showing worsening of interstitial and alveolar opacities bilaterally. Lisinopril placed on hold, patient given potassium and magnesium replacement, Lasix 20 mg IV, albumin. Repeat COVID-19 testing negative. Currently on 2 L post procedure CXR improved this morning Wean O2 as able (2) NSVT (nonsustained ventricular tachycardia): Plan: 10 beat run of nonsustained V. tach 07/11 Patient asymptomatic Continue to monitor on telemetry Optimize electrolytes Continue beta-iglesia (3) JARROD (acute kidney injury): Plan: Resolved Mild, creatinine peaked at 1.4 on 07/12, possibly due to colonoscopy prep from overnight Received Lasix and albumin as above Creatinine 1.2 today Lisinopril was held, will resume today Follow-up BMP tomorrow (4) Hematochezia: (5) Colonic mass: Plan: Patient unsure of rectal bleeding CT ABD/pelvis showing There is a 3.2 cm focus of asymmetric wall thickening with increased enhancement within the rectum approximately 7.5 cm from the anal verge. S/p colonoscopy today. Report reviewed. Impression: - Preparation of the colon was fair. - Three 5 to 8 mm polyps at the hepatic flexure, removed with a hot snare. Resected and retrieved. - Two 4 to 5 mm polyps in the transverse colon, removed with a cold snare. Resected and retrieved. - Rule out malignancy, tumor in the rectum. Biopsied with snare resection of the edge. - Internal hemorrhoids. Recommendation: - [facility] to [facility] care. - Advance diet as tolerated today. - Await pathology results. - Perform a lower endoscopic ultrasound (LEUS) at appointment to be scheduled. - Refer to a colo-rectal surgeon at appointment to be scheduled. (6) Chronic diastolic CHF (congestive heart failure): Plan: Currently appears euvolemic Received Lasix for mild acute on chronic diastolic CHF exacerbation as above Resume home Bumex today (7) Hypertensive urgency: Plan: Presenting BP 200/97 2/2 noncompliance with medication Home hydralazine increased to 25 mg 3 times daily with improvement in BP Continue amlodipine, labetalol Resuming lisinopril as above (8) Anemia: Plan: chronic, mild and improved compared to prior numbers in recent months Hgb 10.4 Continue to monitor CBC (9) Diabetes mellitus, type II: Plan: Hgb A1c 6.9 04/2021 Lantus and NovoLog per protocol hospitalized (10) FRANCIS (obstructive sleep apnea): Plan: reported noncompliance with CPAP (11) Morbid obesity: Plan: BMI 43.8 (12) Depression: Plan: Stable, continue home meds (13) Alcohol abuse: Plan: Reports upwards of 12 beers daily. No overt withdrawal. Cont AWSS (14) DVT prophylaxis: Plan: SCDs in setting of possible hematochezia Dispo- Patient advised for rehab last admission however signed out AMA. Patient continues to decline rehab. [facility] can no longer provide services due to noncompliance. [facility] of aging is aware of the patient however he has refused their services in the past as well. Likely plan for discharge home tomorrow with safety check to be arranged by office of aging. Admission and Anticipated Discharge Date Admission Date: July 09, 2021 Supervising Physician Co-Signing Physician Notes Patient was seen and evaluated independently. Chart was reviewed. Case was discussed with DAVONTE. I agree with assessment and plan as outlined above Subjective Patient seen and examined. Follow-up for hypertensive urgency, anemia, possible rectal mass noted on CT scan. Patient seen post colonoscopy. Offers no complaints, requesting food. Denies chest pain or shortness of breath. No abdominal pain or nausea. Review of Systems Review of Systems: ROS per HPI, all other systems reviewed and negative Physical Exam Constitutional: WD/WN, vitals as above + obese Respiratory: normal respiratory effort; no respiratory distress Auscultation: + diminished lung sounds Cardiovascular: Rate/Rhythm: regular rate and regular rhythm Vessels: normal peripheral pulses Extremities: + edema (Trace edema BLE) Gastrointestinal (Abdomen): Percussion/Palpation: abdomen soft; abdomen nontender Skin: no rashes, warm and dry Neurologic: no focal motor deficits Psychiatric: A+Ox3, euthymic affect Results & Data Results & Data ([facility]) Vital Signs (Past 12 Hours) Vital Signs Temp Pulse Resp BP BP Pulse Ox 07/12/21 12:35 59 L 20 158/72 H 95 07/12/21 12:21 63 20 139/61 99 07/12/21 12:06 61 20 129/57 L 95 07/12/21 10:22 36.7 C 63 16 164/73 H 98 07/12/21 07:53 36.4 C L 63 22 161/78 H 96 07/12/21 03:43 36.8 C 56 L 16 158/69 H 93 Laboratory Results Short CBC 07/12/21 Range/Units 05:23 WBC 8.10 (4.8-10.8) K/uL Hgb 10.4 L (14.0-18.0) g/dL Hct 33.3 L (42-52) % Plt Count 250 (130-400) K/uL BMP 07/12/21 05:23 Sodium 137 Potassium 3.8 Chloride 108 H Carbon Dioxide 21 BUN 20 Creatinine 1.22 Glucose 88 Calcium 9.1 (1) Anemia Anemia type: unspecified type Qualified Code(s): D64.9 - Anemia, unspecified
[2021-07-12] MEDS: TAMSULOSIN HCL 0.4 MG CAP PO SCH (16:08)
[2021-07-12] MEDS: BUMETANIDE 1 MG TAB PO SCH (16:08)
[2021-07-12] MEDS ORDERED: MICONAZOLE NITRATE POWDER 43 GM EXT PRN (20:04)
[2021-07-12] MEDS: MONTELUKAST SODIUM 10 MG TABLET PO SCH (21:06)
[2021-07-12] MEDS: ATORVASTATIN 40 MG TAB PO SCH (21:09)
[2021-07-13] MEDS: LABETALOL HCL 100 MG TAB PO SCH ×2 (07:34→20:47)
[2021-07-13] MEDS: UMECLIDINIUM/VILANTEROL 62.5/25MCG 7 PUFFS/INHALER INH SCH (07:34)
[2021-07-13] MEDS: hydrALAZINE HCL 25 MG TAB PO SCH ×3 (07:35→20:47)
[2021-07-13] MEDS: amLODIPine BESYLATE 5 MG TAB PO SCH (07:35)
[2021-07-13] MEDS: DULoxetine HCL 60 MG CAP PO SCH (07:35)
[2021-07-13] MEDS: GABAPENTIN 100 MG CAP PO SCH ×3 (07:35→20:46)
[2021-07-13] MEDS: FOLIC ACID 1 MG TAB PO SCH (07:35)
[2021-07-13] MEDS: PANTOprazole 40 MG TAB PO SCH (07:36)
[2021-07-13] MEDS: FERROUS SULFATE 325 MG TAB PO SCH ×2 (07:36→17:23)
[2021-07-13] MEDS: allopurinoL 300 MG TAB PO SCH (07:36)
[2021-07-13] MEDS: BUMETANIDE 1 MG TAB PO SCH (07:36)
[2021-07-13] MEDS: THIAMINE HCL 100 MG TAB PO SCH (07:36)
[2021-07-13] MEDS: MULTIVITAMIN TAB PO SCH (07:36)
[2021-07-13] MEDS: SERTRALINE HCL 100 MG TABLET PO SCH (07:36)
[2021-07-13] MEDS: lisinopril 40 MG TAB PO SCH (07:37)
[2021-07-13 08:17] LABS: BUN Creatinine Ratio 12.9 (10-20); Calcium 8.8 mg/dl (8.5-10.1); Creatinine Clr Calc Pharmacy 98.6 ml/min; Est GFR (African American) 76.7 ml/min; Est GFR (Non-African American) 66.2 ml/min; Potassium 3.5 mmol/L (3.5-5.1)
[2021-07-13] MEDS: INSULIN GLARGINE SOLOSTAR 100 UNITS/ML 3 ML PEN SC SCH (08:18)
[2021-07-13] MEDS: INSULIN ASPART PER UNIT SC SCH ×4 (08:20→20:40)
--- NOTE | 2021-07-13 12:39 | Hospitalist Progress Note ---
Date of Service July 13, 2021 Assessment & Plan (1) Hypoxia: Plan: Desaturated to 88% on room air with ambulation Feels dyspnea with exertion, likely component of obesity hyoventilation syndrome. (2) NSVT (nonsustained ventricular tachycardia): Plan: 10 beat run of nonsustained V. tach 07/11 Patient asymptomatic Continue to monitor on telemetry Optimize electrolytes Continue beta-iglesia (3) JARROD (acute kidney injury): Plan: Mild, creatinine peaked at 1.4 on 07/12, possibly due to colonoscopy prep from overnight Cr now back to baseline, Lisinopril resumed (4) Hematochezia: (5) Colonic mass: Plan: Patient unsure of rectal bleeding CT ABD/pelvis showing There is a 3.2 cm focus of asymmetric wall thickening with increased enhancement within the rectum approximately 7.5 cm from the anal verge. S/p colonoscopy 07/12 Report reviewed. Impression: - Preparation of the colon was fair. - Three 5 to 8 mm polyps at the hepatic flexure, removed with a hot snare. Resected and retrieved. - Two 4 to 5 mm polyps in the transverse colon, removed with a cold snare. Resected and retrieved. - Rule out malignancy, tumor in the rectum. Biopsied with snare resection of the edge. - Internal hemorrhoids. Recommendation: - [facility] to [facility] care. - Advance diet as tolerated today. - Await pathology results. - Perform a lower endoscopic ultrasound (LEUS) at appointment to be scheduled. - Refer to a colo-rectal surgeon at appointment to be scheduled. (6) Chronic diastolic CHF (congestive heart failure): Plan: Currently appears euvolemic home Bumex resumed 07/12 (7) Hypertensive urgency: Plan: Presenting BP 200/97 07/12 noncompliance with medication BP elevated this morning but much improved after morning medications (8) Anemia: Plan: likely due to chronic blood loss from rectal mass H/H has remained stable (9) Diabetes mellitus, type II: Plan: Hgb A1c 6.9 04/2021 Lantus and NovoLog per protocol hospitalized (10) FRANCIS (obstructive sleep apnea): Plan: reported noncompliance with CPAP (11) Morbid obesity: Plan: BMI 43.8 counseled weight loss (12) Depression: Plan: Stable, continue home meds (13) Alcohol abuse: Plan: Reports upwards of 12 beers daily. No overt withdrawal. Cont AWSS (14) DVT prophylaxis: Plan: SCDs in setting of possible hematochezia Dispo- Patient advised for rehab last admission however signed out AMA. Patient continues to decline rehab. [facility] can no longer provide services due to noncompliance. [facility] of aging is aware of the patient however he has refused their services in the past as well. Likely plan for discharge home tomorrow with safety check to be arranged by office of aging. Admission and Anticipated Discharge Date Admission Date: July 09, 2021 Subjective Reports feeling winded chronically with exertion. Doesn't feel too interested about rehab but also doesn't want to go home. Had his colonoscopy yesterday Worked with PT today BP elevated this morning but much better by afternoon. No symptoms associated with elevated blood pressure Physical Exam Physical Exam: morbidly obese, disheveled, unkempt, non toxic Respiratory: no wheezing/rhonchi/rales Cardiovascular: regular rate and rhythm, no murmurs/rubs/gallops Gastrointestinal (Abdomen): soft, non tender, non distended Musculoskeletal: no edema Neurologic: awake, alert, spontaneously moving extremities Results & Data Results & Data ([facility]) Vital Signs (Past 12 Hours) Vital Signs Temp Pulse Pulse Resp BP Pulse Ox 07/13/21 09:00 68 126/76 07/13/21 07:20 61 07/13/21 07:00 36.6 C 73 20 191/90 H 92 07/13/21 03:10 36.9 C 70 18 173/91 H 92 (1) Anemia Anemia type: unspecified type Qualified Code(s): D64.9 - Anemia, unspecified
[2021-07-13] MEDS: oxyCODONE HCL IR 5 MG TAB (IMMEDIATE RELEASE) PO PRN (13:49)
[2021-07-13] MEDS: TAMSULOSIN HCL 0.4 MG CAP PO SCH (17:23)
[2021-07-13] MEDS: ATORVASTATIN 40 MG TAB PO SCH (20:45)
[2021-07-13] MEDS: MONTELUKAST SODIUM 10 MG TABLET PO SCH (20:48)
[2021-07-14] MEDS: oxyCODONE HCL IR 5 MG TAB (IMMEDIATE RELEASE) PO PRN ×5 (01:05→20:00)
[2021-07-14] MEDS: UMECLIDINIUM/VILANTEROL 62.5/25MCG 7 PUFFS/INHALER INH SCH (08:41)
[2021-07-14] MEDS: INSULIN GLARGINE SOLOSTAR 100 UNITS/ML 3 ML PEN SC SCH (08:41)
[2021-07-14] MEDS: INSULIN ASPART PER UNIT SC SCH ×4 (08:42→22:01)
[2021-07-14] MEDS: amLODIPine BESYLATE 5 MG TAB PO SCH (08:45)
[2021-07-14] MEDS: allopurinoL 300 MG TAB PO SCH (08:45)
[2021-07-14] MEDS: THIAMINE HCL 100 MG TAB PO SCH (08:45)
[2021-07-14] MEDS: FOLIC ACID 1 MG TAB PO SCH (08:45)
[2021-07-14] MEDS: LABETALOL HCL 100 MG TAB PO SCH ×2 (08:45→21:52)
[2021-07-14] MEDS: SERTRALINE HCL 100 MG TABLET PO SCH (08:45)
[2021-07-14] MEDS: DULoxetine HCL 60 MG CAP PO SCH (08:46)
[2021-07-14] MEDS: FERROUS SULFATE 325 MG TAB PO SCH ×2 (08:46→17:20)
[2021-07-14] MEDS: lisinopril 40 MG TAB PO SCH (08:46)
[2021-07-14] MEDS: PANTOprazole 40 MG TAB PO SCH (08:47)
[2021-07-14] MEDS: BUMETANIDE 1 MG TAB PO SCH (08:47)
[2021-07-14] MEDS: hydrALAZINE HCL 25 MG TAB PO SCH ×3 (08:47→21:52)
[2021-07-14] MEDS: MULTIVITAMIN TAB PO SCH (08:47)
[2021-07-14] MEDS: GABAPENTIN 100 MG CAP PO SCH ×2 (08:48→14:06)
[2021-07-14] MEDS: LIDOCAINE 5% 1 PATCH TD SCH (15:27)
--- NOTE | 2021-07-14 15:29 | Hospitalist Progress Note ---
Date of Service July 14, 2021 Assessment & Plan (1) Hypoxia: Plan: Desaturated to 88% on room air with ambulation Feels dyspnea with exertion, likely component of obesity hyoventilation syndrome. home oxygen arranged will check D dimer--> if elevated, would get CTA chest to evaluate further (2) NSVT (nonsustained ventricular tachycardia): Plan: 10 beat run of nonsustained V. tach 07/11 Patient asymptomatic Continue to monitor on telemetry Optimize electrolytes Continue beta-iglesia (3) JARROD (acute kidney injury): Plan: Mild, creatinine peaked at 1.4 on 07/12, possibly due to colonoscopy prep from overnight Cr now back to baseline, Lisinopril resumed (4) Hematochezia: (5) Colonic mass: Plan: Patient unsure of rectal bleeding CT ABD/pelvis showing There is a 3.2 cm focus of asymmetric wall thickening with increased enhancement within the rectum approximately 7.5 cm from the anal verge. S/p colonoscopy 07/12 Report reviewed. Impression: - Preparation of the colon was fair. - Three 5 to 8 mm polyps at the hepatic flexure, removed with a hot snare. Resected and retrieved. - Two 4 to 5 mm polyps in the transverse colon, removed with a cold snare. Resected and retrieved. - Rule out malignancy, tumor in the rectum. Biopsied with snare resection of the edge. - Internal hemorrhoids. Recommendation: - [facility] patient to [facility]. - Advance diet as tolerated today. - Await pathology results. - Perform a lower endoscopic ultrasound (LEUS) at appointment to be scheduled. - Refer to a colo-rectal surgeon at appointment to be scheduled. (6) Chronic diastolic CHF (congestive heart failure): Plan: Currently appears euvolemic home Bumex resumed 07/12 (7) Hypertensive urgency: Plan: Presenting BP 200/97 07/12 noncompliance with medication BP now much better controlled (8) Anemia: Plan: likely due to chronic blood loss from rectal mass H/H has remained stable (9) Diabetes mellitus, type II: Plan: Hgb A1c 6.9 04/2021 Lantus and NovoLog per protocol hospitalized (10) FRANCIS (obstructive sleep apnea): Plan: reported noncompliance with CPAP (11) Morbid obesity: Plan: BMI 43.8 counseled weight loss (12) Depression: Plan: Stable, continue home meds (13) Alcohol abuse: Plan: Reports upwards of 12 beers daily. No overt withdrawal. Cont AWSS (14) DVT prophylaxis: Plan: SCDs in setting of possible hematochezia Dispo- Patient advised for rehab last admission however signed out AMA. Patient continues to decline rehab. [facility] can no longer provide services due to noncompliance. [facility] of aging is aware of the patient however he has refused their services in the past as well. Likely plan for discharge home tomorrow with safety check to be arranged by office of aging. Plan: Left foot shooting pain -Likely neuropathic pain. Increase gabapentin, start lidoderm patch -Check lytes -check D dimer Admission and Anticipated Discharge Date Admission Date: July 09, 2021 Anticipated date of discharge: 07/15/21 Subjective Reports sharp stabbing pain in his left foot which began overnight. Denies history of similar Denies chest pain, shortness of breath at rest but feels dyspneic with ambulation which is chronic Physical Exam Physical Exam: obese, disheveled, no acute distress Neck: thick Respiratory: no wheezing/rhonchi/rales, clear bilaterally Cardiovascular: regular rate and rhythm, no murmurs/rubs/gallops Gastrointestinal (Abdomen): soft, non tender, non distended Musculoskeletal: left foot with no erythema, no swelling, no ulcers. (Patient reports shooting intermittent pain dorsum of left foot to ankle) Neurologic: awake, alert, spontaneously moving extremities Psychiatric: anxious Results & Data Results & Data ([facility]) Vital Signs (Past 12 Hours) Vital Signs Temp Pulse Pulse Pulse Pulse Pulse Pulse 07/14/21 11:20 36.7 C 60 07/14/21 09:31 111 H 103 H 86 81 07/14/21 08:06 59 L 07/14/21 07:39 36.7 C 76 07/14/21 03:55 36.4 C L 68 Resp Resp Resp Resp Resp BP BP 07/14/21 11:20 20 152/69 H 07/14/21 09:31 26 H 22 22 20 07/14/21 08:06 07/14/21 07:39 20 152/75 H 07/14/21 03:55 20 131/71 Pulse Ox Pulse Ox Pulse Ox Pulse Ox Pulse Ox 07/14/21 11:20 97 07/14/21 09:31 93 87 L 91 92 07/14/21 08:06 07/14/21 07:39 92 07/14/21 03:55 92 (1) Anemia Anemia type: unspecified type Qualified Code(s): D64.9 - Anemia, unspecified
[2021-07-14 15:57] LABS: Basophils # (auto) 0.04 K/uL (0-0.2); Basophils % (auto) 0.4 %; Eosinophils # (auto) 0.58 K/uL (0-0.5); Eosinophils % (auto) 5.8 %; Hemoglobin 10.7 g/dL (14.0-18.0); Immature Granulocytes # (auto) 0.03 K/uL (0.00-0.02); Immature Granulocytes % (auto) 0.3 %; Lymphocytes # (auto) 1.78 K/uL (1.2-3.4); Lymphocytes % (auto) 17.7 %; Mean Corpuscular Hemoglobin 26.5 pg (25-34); Mean Corpuscular Hgb Conc 31.5 g/dL (32-36); Mean Corpuscular Volume 84.2 fL (80-100); Mean Platelet Volume 9.7 fL (7.4-10.4); Monocytes # (auto) 0.66 K/uL (0.11-0.59); Monocytes % (auto) 6.6 %; Neutrophils # (auto) 6.96 K/uL (1.4-6.5); Neutrophils % (auto) 69.2 %; Platelet Count 294 K/uL (130-400); RDW Standard Deviation 52.8 fL (36.4-46.3); Red Blood Count 4.04 M/uL (4.7-6.1); White Blood Count 10.05 K/uL (4.8-10.8)
[2021-07-14 16:18] LABS: BUN Creatinine Ratio 19.8 (10-20); Creatinine Clr Calc Pharmacy 87.3 ml/min; Est GFR (African American) 66.2 ml/min; Est GFR (Non-African American) 57.1 ml/min; Magnesium 1.8 mg/dl (1.7-2.4); Potassium 3.8 mmol/L (3.5-5.1); Uric Acid 8.5 mg/dl (2.6-7.2)
[2021-07-14 16:20] LABS: D Dimer 920 ug/L FEU (0-500)
[2021-07-14] MEDS: TAMSULOSIN HCL 0.4 MG CAP PO SCH (17:20)
[2021-07-14] MEDS ORDERED: OPTIRAY 320 125ml IV ONE (21:08)
--- NOTE | 2021-07-14 21:22 | CT Scan Report ---
CT angio chest PE protocol CLINICAL HISTORY: Shortness of breath. Evaluate for pulmonary embolus. COMPARISON STUDY: Portable chest from 07/12/2021 CT DOSE: 815.79 mGy.cm TECHNIQUE: CT Angio of the chest was performed.followed by image post processing with coronal, and s agittal MIP reformats. Contrast Volume: Optiray 320, 121 ml FINDINGS: Vasculature: There is homogeneous perfusion of the pulmonary vasculature bilaterally. No intraluminal filling defects or evidence for pulmonary embolus is seen. Airway: The airway is clear. No endobronchial lesion is identified. Lungs: Diffuse interstitial and alveolar opacities are present bilaterally most characteristic of a v iral type pneumonitis. Covid 19 pneumonia should be excluded. The lungs are clear of confluent alveol ar opacities, air bronchograms or pulmonary nodules. Pleura: There is evidence for small right pleural effusion versus pleural thickening. There is no ev idence for pneumothorax. Mediastinum: There is no evidence for pathologic adenopathy. Heart size is mildly enlarged. There is mild coronary artery calcification. The thoracic aorta is within normal limits. There is no evidence for pericardial effusion. Upper abdomen:The adrenal glands are normal bilaterally. Osseous structures: There is no acute osseous pathology. Degenerative changes are seen within the sp ine. Impression: 1. No CTA evidence for pulmonary embolus. 2. Mild diffuse interstitial and alveolar opacities are present bilaterally most characteristic of vi ral type pneumonitis. Covid 19 pneumonia should be excluded. 3. Mild coronary artery calcification. ACT 112: Negative or not required by law. Electronically signed by: Mateo Ovalle M.D. 07/14/2021 9:21 PM
[2021-07-14] MEDS: MONTELUKAST SODIUM 10 MG TABLET PO SCH (21:51)
[2021-07-14] MEDS: GABAPENTIN 400 MG CAP PO SCH (21:52)
[2021-07-14] MEDS: ATORVASTATIN 40 MG TAB PO SCH (21:53)
[2021-07-15] MEDS: oxyCODONE HCL IR 5 MG TAB (IMMEDIATE RELEASE) PO PRN (04:52)
--- NOTE | 2021-07-15 06:00 | Ultrasound Report ---
ULTRASOUND LEFT LOWER EXTREMITY VENOUS CLINICAL HISTORY: Left leg pain. COMPARISON STUDY: Bilateral lower extremity venous ultrasound dated 12/27/2018 TECHNIQUE: Real-time, grayscale, and color Doppler sonography of the deep veins of the left lower ext remity was performed from the inguinal crease to the calf. Compression and augmentation were utilized . FINDINGS: There is no sonographic evidence of deep venous thrombosis identified in the left lower ext remity. The common femoral, superficial femoral, and popliteal veins are patent and normally compress ible. The greater saphenous vein and the profunda femoris vein at the junction with the common femora l vein are clear. The visualized calf veins are patent. IMPRESSION: There is no sonographic evidence of deep venous thrombosis identified in the left lower e xtremity. ACT 112: Negative or not required by law. Electronically signed by: Theron Veronica M.D. 07/15/2021 5:59 AM
[2021-07-15 06:14] LABS: Hematocrit (blood only) 30.9 % (42-52); Hemoglobin 9.7 g/dL (14.0-18.0); Mean Corpuscular Hemoglobin 26.4 pg (25-34); Mean Corpuscular Hgb Conc 31.4 g/dL (32-36); Mean Corpuscular Volume 84.2 fL (80-100); Mean Platelet Volume 9.6 fL (7.4-10.4); Platelet Count 233 K/uL (130-400); RDW Coefficient of Variation 17.3 % (11.5-14.5); RDW Standard Deviation 53.7 fL (36.4-46.3); Red Blood Count 3.67 M/uL (4.7-6.1); White Blood Count 8.43 K/uL (4.8-10.8)
[2021-07-15 06:21] LABS: BUN Creatinine Ratio 19.1 (10-20); Calcium 8.6 mg/dl (8.5-10.1); Creatinine Clr Calc Pharmacy 81.1 ml/min; Est GFR (African American) 60.6 ml/min; Est GFR (Non-African American) 52.3 ml/min; Magnesium 1.8 mg/dl (1.7-2.4); Potassium 3.7 mmol/L (3.5-5.1)
[2021-07-15] MEDS: GABAPENTIN 400 MG CAP PO SCH (08:16)
[2021-07-15] MEDS: FOLIC ACID 1 MG TAB PO SCH (08:16)
[2021-07-15] MEDS: hydrALAZINE HCL 25 MG TAB PO SCH (08:16)
[2021-07-15] MEDS: SERTRALINE HCL 100 MG TABLET PO SCH (08:16)
[2021-07-15] MEDS: UMECLIDINIUM/VILANTEROL 62.5/25MCG 7 PUFFS/INHALER INH SCH (08:17)
[2021-07-15] MEDS: FERROUS SULFATE 325 MG TAB PO SCH (08:17)
[2021-07-15] MEDS: LIDOCAINE 5% 1 PATCH TD SCH (08:17)
[2021-07-15] MEDS: LABETALOL HCL 100 MG TAB PO SCH (08:17)
[2021-07-15] MEDS: THIAMINE HCL 100 MG TAB PO SCH (08:18)
[2021-07-15] MEDS: DULoxetine HCL 60 MG CAP PO SCH (08:18)
[2021-07-15] MEDS: BUMETANIDE 1 MG TAB PO SCH (08:18)
[2021-07-15] MEDS: allopurinoL 300 MG TAB PO SCH (08:18)
[2021-07-15] MEDS: amLODIPine BESYLATE 5 MG TAB PO SCH (08:18)
[2021-07-15] MEDS: PANTOprazole 40 MG TAB PO SCH (08:18)
[2021-07-15] MEDS: lisinopril 40 MG TAB PO SCH (08:19)
[2021-07-15] MEDS: MULTIVITAMIN TAB PO SCH (08:19)
[2021-07-15] MEDS: INSULIN ASPART PER UNIT SC SCH (08:24)
[2021-07-15] MEDS: INSULIN GLARGINE SOLOSTAR 100 UNITS/ML 3 ML PEN SC SCH (08:25)
--- NOTE | 2021-07-15 10:39 | Discharge Summary ---
Date of Service July 15, 2021 Admission HPI Per Admitting Provider History obtained from patient, family, and records. Patient is an unreliable historian secondary to disorientation. Medical history significant for chronic diastolic heart failure (EF 60 to 65%, TTE 2020), CAD as per records, hypertension, hyperlipidemia, COPD, FRANCIS/CPAP intolerance, DM2 on oral medications, mood disorder, chronic anemia (baseline hemoglobin of 10), medication noncompliance as per family, past tobacco abuse. Recurrent monthly admissions since November 2020. Last confinement May 14, 2021 to June 15, 2021 for hypertensive urgency and functional disability. Patient deemed to be incapable of caring for self at home. Prolonged hospital stay secondary to difficult placement. Patient signed out AGAINST MEDICAL ADVICE. Patient deemed to be competent although making poor decisions as per pillowcase maker note. Home nursing visits to be set up. Recent ER visit 3 weeks ago for uncontrolled hypertension. Patient not sure if he is taking his meds. Patient discharged back home. Patient brought to ER for evaluation tonight because he said his home nurses told him to get checked out. Noted to be congested. Patient denies unusual headache, chest pain, shortness of breath symptoms. Rectal bleeding without abdominal pain complaints. Admits to drinking alcohol heavily from time to time. Medical Historyas above Surgical History : Cataract, knee surgery Family History : Heart disease Personal/Social history : Past tobacco abuse, no EtOH intake, lives alone Principal Diagnosis Invasive Adenocarcinoma of Rectum Poorly controlled Hypertension JARROD Acute on chronic diastolic CHF, resolved Discharge Exam Patient appears disheveled but no acute distress. He appeared comfortable, reports that "I feel much better today than I did yesterday". No longer having left foot pain. Breathing comfortably on room air. We discussed his pathology report from his colonoscopy 07/12 and afterwards he asked "how long do I got to live?" I explained that he will need to follow up with his PCP and GI. He will need a referral to see Oncology and Colorectal surgery Patient has a follow up appointment with his PCP on 07/19 Discharge Data Allergies Allergy/AdvReac Type Severity Reaction Status Date / Time No Known Allergies Allergy Verified 07/08/21 19:04 Consultations 07/08/21 19:24 ED Decision to Admit Stat 07/08/21 20:54 Consult Gastroenterology Routine Procedures Performed Operation Date: 07/11/21 08:10 <No data on this case meets the specified criteria> Operation Date: 07/11/21 16:00 <No data on this case meets the specified criteria> Operation Date: 07/12/21 16:00 Actual Procedures p Colonoscopy Polypectomy - Maria Esther Rojo DO Ordered Studies 07/08/21 19:00 CT abd pelvis IV con only Stat 07/08/21 19:47 CT head/brain wo con Urgent 07/09/21 12:34 CT head/brain wo con Stat 07/10/21 11:27 US lower EUS PACS images Routine 07/14/21 16:46 CT angio chest PE protocol Routine 07/14/21 16:47 US venous doppler LE LT Routine Hospital Course (1) Hypoxia: Desaturated to 88% on room air with ambulation Chronically feels dyspnea with exertion, likely component of obesity hyoventilation syndrome. home oxygen arranged D dimer was elevated, CTA chest negative for PE but suggests viral pneumonitis. Patient with covid and viral panel from 07/11 which was negative. No evidence of fever/leukocytosis to suggest occult infection. (2) NSVT (nonsustained ventricular tachycardia): 10 beat run of nonsustained V. tach 07/11 Patient asymptomatic Continue beta-iglesia (3) JARROD (acute kidney injury): Patient with baseline CKD stage 3. Cr appears to fluctuate between 1-1.4 Mild bump in Cr to 1.4 after colonoscopy prep with improvement Mild bump of Cr again to 1.4 on day of discharge but still remains within his baseline Would continue his home medications as ordered, bumex changed to PRN for leg swelling to avoid dehydration. Patient has a follow up appointment with his PCP in 4 days, will need a repeat BMP then (4) Hematochezia: resolved (5) Colonic mass: Patient unsure of rectal bleeding CT ABD/pelvis showing There is a 3.2 cm focus of asymmetric wall thickening with increased enhancement within the rectum approximately 7.5 cm from the anal verge. S/p colonoscopy 07/12 Report reviewed. Impression: - Preparation of the colon was fair. - Three 5 to 8 mm polyps at the hepatic flexure, removed with a hot snare. Resected and retrieved. - Two 4 to 5 mm polyps in the transverse colon, removed with a cold snare. Resected and retrieved. - Rule out malignancy, tumor in the rectum. Biopsied with snare resection of the edge. - Internal hemorrhoids. Recommendation: - [facility] to [facility] care. - Advance diet as tolerated today. - Await pathology results. - Perform a lower endoscopic ultrasound (LEUS) at appointment to be scheduled. - Refer to a colo-rectal surgeon at appointment to be scheduled. Pathology positive for invasive adenocarcinoma. Patient notified of the result and instructed he will need close follow up with GI for referral to see colorectal surgeon. Has follow up appointment with PCP in 4 days. (6) Chronic diastolic CHF (congestive heart failure): Appears mildly dehydrated after bumex reinitiated Will discharge on bumex 1mg daily PRN for leg swelling or weight gain > 5lb (7) Hypertensive urgency: Presenting BP 200/97 due to non compliance BP now much better controlled. Medications optimized here, patient discharged on: Lisinopril 40mg daily (home med) Hydralazine 25mg TID (increased) Labetalol 100mg BID (home med) Amlodipine 10mg daily (home med) (8) Anemia: likely due to chronic blood loss from rectal mass/colon cancer H/H has remained stable (9) Diabetes mellitus, type II: Hgb A1c 6.9 04/2021 Lantus and NovoLog per protocol hospitalized Resume metformin at discharge (10) FRANCIS (obstructive sleep apnea): reported noncompliance with CPAP (11) Morbid obesity: BMI 43.8 counseled weight loss (12) Depression: Stable, continue home meds (13) Alcohol abuse: Reports upwards of 12 beers daily. No overt withdrawal while here (14) DVT prophylaxis: SCDs in setting of possible hematochezia Dispo- Patient advised for rehab last admission however signed out AMA. Patient continues to decline rehab. [facility] can no longer provide services due to noncompliance. [facility] is aware of the patient however he has refused their services in the past as well. Discharged home with [facility] follow up (15) Foot pain, left: Left foot shooting pain Likely neuropathic pain. Increase gabapentin, start lidoderm patch. Improved with increased gabapentin and lidoderm patch Uric acid 8.5 but this is improved compared to prior. Exam NOT consistent with gout flare LE ultrasound negative for DVT Total Time Total Time Spent Total Time Spent (In Minutes): 45 Discharge Plan Discharge Items Patient Disposition: Home - Self-Care Reason For Visit: RECTAL PAIN Discharge Diagnosis: Invasive Adenocarcinoma Rectum JARROD, resolved Uncontrolled HTN, improved Medication Non compliance Condition on Discharge: Good Health Concerns: Medication Non compliance Follow up with GI for colorectal surgery referral Follow up with your Primary Care Physician for management of blood pressure, repeat BMP in 3 days, referral to see GI, Oncology and Colorectal surgery Activity: Resume your previous activity Weightbearing: Full weightbearing Non-emergency contact: Primary Care Provider and Reservation Agent Call non-emergency contact if: you have any medication questions and your symptoms worsen Follow-up/Referrals: Comfort Almanzar PA-C [Primary Care Provider] - 07/19/21 1:15 pm Diet: Carb Consistent or DM2 and Heart Healthy Fluids: 2000ml (8 cups) Addtl Attending Provider Instructions: You were admitted for rectal pain and on CT found to have thickened rectum. You had a colonoscopy here which showed a rectal mass which was biopsied and confirmed to be invasive adenocarcinoma (colon cancer). You will need to follow up with Gastroenterology for referral to see a Colorectal surgeon. You should take your medications as prescribed You need to follow up with your Primary Care Physician on Saturday to schedule a follow up visit for blood pressure and diabetes management and after discharge care. You should have a repeat BMP in 3 days to monitor your kidney function Your Bumex ("water pill") was changed to as needed for leg swelling and weight gain (> 5lb weight gain) to avoid dehydration and kidney injury Pending Studies at Discharge: No Stand-Alone Forms: [facility] [place] [employer], Smoking Cessation Medications and DC Order Prescriptions: New gabapentin 400 mg Capsule 400 mg PO TID 60 Days Qty: 90 RF: 0 hydralazine 25 mg Tablet 25 mg PO TID Qty: 90 RF: 1 lidocaine 5 % Adhesive Patch,Medicated 1 patch transdermal QAM 14 Days Qty: 14 RF: 0 Continued polyethylene glycol 3350 [Miralax] 17 gram Powder In Packet 17 g PO DAILY PRN (Reason: Constipation) RF: 0 lisinopril [Zestril] 30 mg tablet 40 mg PO DAILY RF: 0 (DME) blood-glucose meter [Gluco Navii Glucose Monitor] Kit See Rx Instructions .Route Qty: 1 RF: 0 (DME) Gluco Navii Test Strip Strip See Rx Instructions .Route Qty: 50 RF: 0 (DME) lancets Misc See Rx Instructions .Route Qty: 100 RF: 0 labetalol 100 mg Tablet 100 mg PO BID Qty: 60 RF: 0 diclofenac sodium [Voltaren Arthritis Pain] 1 % Gel 4 g EXT BID Qty: 100 RF: 0 atorvastatin 40 mg Tablet 40 mg PO HS Qty: 30 RF: 0 metformin 500 mg tablet 500 mg PO BIDWMEAL Qty: 60 RF: 0 acetaminophen [Tylenol] 325 mg Tablet 650 mg PO Q4 PRN (Reason: PAIN , SCALE 1-3) Qty: 30 RF: 0 sertraline [Zoloft] 100 mg Tablet 100 mg PO DAILY Qty: 30 RF: 0 amlodipine [Norvasc] 5 mg Tablet 10 mg PO DAILY Qty: 60 RF: 0 tamsulosin [Flomax] 0.4 mg Capsule 0.8 mg PO DAILY Qty: 30 RF: 0 pantoprazole 40 mg tablet,delayed release (DR/EC) 40 mg PO DAILY Qty: 30 RF: 0 docusate sodium [Stool Softener] 100 mg Capsule 100 mg PO BID PRN (Reason: Constipation) Qty: 60 RF: 0 montelukast [Singulair] 10 mg Tablet 10 mg PO HS Qty: 30 RF: 0 albuterol sulfate [Ventolin HFA] 90 mcg/actuation Hfa Aerosol Inhaler 2 puff INHALATION QID PRN (Reason: Shortness Of Breath) Qty: 8.5 RF: 0 ferrous sulfate 325 mg (65 mg iron) Tablet,Delayed Release (Dr/Ec) 325 mg PO BIDM Qty: 14 RF: 0 duloxetine 60 mg Capsule,Delayed Release(Dr/Ec) 60 mg PO DAILY Qty: 30 RF: 0 Anoro Ellipta 62.5-25 mcg/actuation Blister With Device 1 inh INHALATION DAILY Qty: 14 RF: 0 allopurinol 300 mg tablet 300 mg PO DAILY Qty: 30 RF: 0 Changed bumetanide 1 mg tablet 1 mg PO DAILY PRN (Reason: Edema) Qty: 30 RF: 0 Discontinued hydralazine 10 mg Tablet 20 mg PO BID Qty: 60 RF: 0 potassium chloride 20 mEq tablet,ER particles/crystals 20 meq PO DAILY Qty: 30 RF: 0 gabapentin 100 mg capsule 200 mg PO TID Qty: 180 RF: 0 Discharge Orders: Discharge Order (Routine); Ordered 07/15/21 Ordered By: Clarissa Jang/Other Patient Handouts: Controlling High Blood Pressure, Low-Salt Choices, Heart Failure: Tracking Your Weight, High Blood Sugar (Hyperglycemia), Hypoglycemia (Low Blood Sugar), Managing Type 2 Diabetes, Hypertension Dc, Special Foot Care for Diabetes Admission Data Admit Date/Time: 07/09/21 16:58 Attending Provider: Clarissa Rice Admit Provider: Olu Melissa Primary Care Provider: Comfort Almanzar Other Providers: Olu Melissa ; Phyllis Bal ; Luiza Multani ; Rosanna Velasquez ; Krys Sabillon ; Maximus Kincaid ; Maria Esther Rojo ; Marissa Milian ; Lew Crawford ; Karishma Trujillo ; Haily Hernandez ; Vivienne Londono ; Snaam Merino ; Susan Sherwood ; [facility] ; Neha Mittal
== END 2021-07-15 13:34 | disposition home or self-care (01) ==
LOC: EDINP 17:34 → ED 17:34 → SUATTDRO 20:09 → EDINP 22:10 → SUATTDRO 07-09 16:58 → 2N 07-10 20:04

== ENCOUNTER 2021-07-27 19:04 | Observation (INO) ==
[2021-07-27 19:55] LABS: Basophils # (auto) 0.06 K/uL (0-0.2); Basophils % (auto) 0.5 %; Eosinophils # (auto) 0.39 K/uL (0-0.5); Eosinophils % (auto) 3.4 %; Hematocrit (blood only) 40.2 % (42-52); Hemoglobin 13.1 g/dL (14.0-18.0); Immature Granulocytes # (auto) 0.03 K/uL (0.00-0.02); Immature Granulocytes % (auto) 0.3 %; Lymphocytes % (auto) 17.2 %; Mean Corpuscular Hemoglobin 26.6 pg (25-34); Mean Corpuscular Hgb Conc 32.6 g/dL (32-36); Mean Corpuscular Volume 81.5 fL (80-100); Mean Platelet Volume 9.4 fL (7.4-10.4); Monocytes # (auto) 0.71 K/uL (0.11-0.59); Monocytes % (auto) 6.1 %; Neutrophils # (auto) 8.44 K/uL (1.4-6.5); Neutrophils % (auto) 72.5 %; Platelet Count 264 K/uL (130-400); RDW Coefficient of Variation 16.6 % (11.5-14.5); RDW Standard Deviation 49.8 fL (36.4-46.3); Red Blood Count 4.93 M/uL (4.7-6.1); White Blood Count 11.63 K/uL (4.8-10.8)
--- NOTE | 2021-07-27 19:59 | Emergency Department Note ---
Impression & Plan Weakness, Chronic dyspnea, Dehydration [facility] NAME: WILVER THAO AGE: 66 SEX: M ARRIVES VIA: Ambulance INFORMANT: Patient ED PROVIDER(S): Celina Banegas DO CHIEF COMPLAINT: Weakness PLAN: Disposition: [facility] Condition: Fair MEDICAL DECISION MAKING: This is a 66-year-old male patient presents emergency department by EMS with multiple complaints. The patient has had multiple visits to the emergency department in the past couple of months with similar presentations. He complains of a headache, abdominal pain, nausea/vomiting, decreased oral intake. Patient appears dehydrated on physical exam. He is confused about place and time. He is quite emotional on exam and having difficulty answering questions. I am unsure how he is caring for himself at home with regards to taking his medications. Triage Nursing notes reviewed and agree with them. Prior medical records reviewed Vital Signs: reviewed and remarkable for pretension Differential diagnosis: Hyperglycemia, dehydration, electrolyte abnormality, renal failure ER treatment provided: Diagnostics interpreted by me: Cardiac Monitoring: Sinus bradycardia at 58 Laboratory studies: See below Imaging studies: As per my interpretation Portable chest x-ray: Cardiomegaly with no other acute pulmonary infiltrates HPI: 66/M arrives for evaluation of weakness. Patient states that he had become significantly weak tonight and called for EMS. He states that his "throat feels all gummed up." He is tearful on exam and states that he is having difficulty answering my questions because he feels confused. ROS: See above HPI for pertinent positives & negatives. A total of 10 systems reviewed and were otherwise negative. PAST MEDICAL HISTORY:See Below PAST SURGICAL HISTORY:See Below FAMILY HISTORY:See Below SOCIAL HISTORY:See Below HOME MEDICATIONS:See list ALLERGIES:None VITALS:See Below PHYSICAL EXAMINATION: HEENT: Head - normocephalic and atraumatic. Pupils are equal, round, and reactive to light. Extraocular eye muscles are intact, and sclera are anicteric. Nose - moist nasal mucosa without discharge. Mouth - moist buccal mucosa. Oropharynx is nonerythematous and there is no tonsillar exudate or edema noted. Neck: Supple; no JVD or cervical lymphadenopathy Heart: Bradycardic rate and regular rhythm. There is a normal S1 and S2 with no murmurs, clicks, or gallops appreciated. Lungs: Clear to auscultation bilaterally although breath sounds are extremely distant secondary to body habitus Abdomen: Soft, completely nontender, nondistended, with good bowel sounds. There are no palpable pulsatile masses or hepatosplenomegaly. There is no guarding, rigidity, or rebound noted. Extremities: No evidence of cyanosis, clubbing, or edema. There are easily palpable peripheral pulses. Skin: warm and dry with poor turgor and no rashes. ED COURSE: Times/Reassessments: 1919: The patient was evaluated in room C 11. A complete history and physical was performed. Previous electronic medical records were reviewed. An order was placed for continuous cardiac monitoring. The patient was in a normal sinus rhythm at a rate of 78. A twelve-lead EKG was obtained. The patient asked for Coke to drink. Was quite tearful on exam and becoming frustrated with my questioning but seemed quite confused on physical exam. I discussed the case with case management as I do not feel patient is safe for discharge and is unable to care for himself at home. I am not sure that he is taking his medications correctly after some discussion with him. Celina Banegas, DO Past Med/Surg History Medical History Abnormal posture Ambulatory dysfunction Anemia Chronic diastolic CHF (congestive heart failure) Chronic respiratory failure with hypoxia Coronary artery disease Depression Diabetes mellitus, type II Gout History of blood transfusion History of COVID-19 Hyperlipidemia Hypertension Mood disorder Morbid obesity FRANCIS (obstructive sleep apnea) Septic arthritis Ventricular tachycardia Wrist arthritis Wrist arthritis Surgical History Cataract extraction status, unspecified eye H/O knee surgery History of incision and drainage Family History Other Throat cancer Social History Smoking Status: Former smoker Tobacco Type: Cigarettes Second Hand Exposure: No; Do You Dip or Chew Tobacco: No; Tobacco Cessation Education Requested by Patient: No Hx Alcohol Use: Yes Alcohol type: beer Hx Substance Use: Yes Last Used Substance: Unknown Preferred Language: Turkish Communication Ability: Effective Facialist Required: No Beliefs That Will Affect Care: None marital status: Single Current Living Situation: Alone Current Living Situation Comment: [facility] How many Children do You have: 0 Other Information That Helps Us Care for You: No Feels Safe at Home: Yes Assistive Devices: None Allergies Allergies Allergy/AdvReac Type Severity Reaction Status Date / Time No Known Allergies Allergy Verified 07/21/21 19:47 Home Meds Home Medications Medication Instructions Recorded Confirmed polyethylene glycol 3350 17 gram 17 g PO DAILY PRN 11/29/20 07/27/21 oral powder packet (Miralax) lisinopril 30 mg tablet (Zestril) 40 mg PO DAILY 07/09/21 07/27/21 Previous Rx's Medication Instructions Recorded blood sugar diagnostic (Gluco #50 ea 05/09/21 Navii Test Strip) blood-glucose meter (Gluco Navii #1 ea 05/09/21 Glucose Monitor) lancets #100 ea 05/09/21 acetaminophen 325 mg tablet 650 mg PO Q4 PRN #30 tab 06/15/21 (Tylenol) albuterol sulfate 90 mcg/actuation 2 puff INHALATION QID PRN #8.5 g 06/15/21 aerosol inhaler (Ventolin HFA) allopurinol 300 mg tablet 300 mg PO DAILY #30 tab 06/15/21 amlodipine 5 mg tablet (Norvasc) 10 mg PO DAILY #60 tab 06/15/21 atorvastatin 40 mg tablet 40 mg PO HS #30 tab 06/15/21 diclofenac sodium 1 % topical gel 4 g EXT BID #100 g 06/15/21 (Voltaren Arthritis Pain) docusate sodium 100 mg capsule 100 mg PO BID PRN #60 cap 06/15/21 (Stool Softener) duloxetine 60 mg capsule,delayed 60 mg PO DAILY #30 cap 06/15/21 release ferrous sulfate 325 mg (65 mg 325 mg PO BIDM #14 tab 06/15/21 iron) tablet,delayed release labetalol 100 mg tablet 100 mg PO BID #60 tab 06/15/21 metformin 500 mg tablet 500 mg PO BIDWMEAL #60 tab 06/15/21 montelukast 10 mg tablet 10 mg PO HS #30 tab 06/15/21 (Singulair) pantoprazole 40 mg tablet,delayed 40 mg PO DAILY #30 tab 06/15/21 release sertraline 100 mg tablet (Zoloft) 100 mg PO DAILY #30 tab 06/15/21 tamsulosin 0.4 mg capsule (Flomax) 0.8 mg PO DAILY #30 cap 06/15/21 umeclidinium 62.5 mcg-vilanterol 1 inh INHALATION DAILY #14 ea 06/15/21 25 mcg/actuation powdr for inhalation (Anoro Ellipta) bumetanide 1 mg tablet 1 mg PO DAILY PRN #30 tab 07/15/21 gabapentin 400 mg capsule 400 mg PO TID 60 Days #90 cap 07/15/21 hydralazine 25 mg tablet 25 mg PO TID #90 tab 07/15/21 lidocaine 5 % topical patch 1 patch TRANSDERMAL QAM 14 Days 07/15/21 #14 ea Results & Data (ED) Vital Signs Vital Signs - 24 hr 07/27/21 19:11 07/27/21 19:47 07/27/21 20:00 Temperature 36.6 C Temperature Source Oral Pulse Rate 78 87 81 Pulse Rate from SpO2 Sensor 86 77 Respiratory Rate 22 17 24 Respiratory Effort / Characteristics Non-Labored Spontaneous Respiratory Depth Normal Blood Pressure 190/105 H Blood Pressure [Left Arm] Blood Pressure Mean 133 Blood Pressure Mean [Left Arm] Pulse Oximetry 94 96 95 Oxygen Delivery Method Room Air Room Air Room Air Sepsis Recent Fever Within 48 Hours No Sepsis New/Unexplained Change in Mental Status No Sepsis Action Taken by Nursing No Action Required 07/27/21 20:01 07/27/21 20:30 07/27/21 21:00 Temperature Temperature Source Pulse Rate 87 77 Pulse Rate from SpO2 Sensor 67 62 Respiratory Rate 18 Respiratory Effort / Characteristics Respiratory Depth Blood Pressure 180/104 H Blood Pressure [Left Arm] Blood Pressure Mean 129 Blood Pressure Mean [Left Arm] Pulse Oximetry 96 94 93 Oxygen Delivery Method Room Air Room Air Room Air Sepsis Recent Fever Within 48 Hours Sepsis New/Unexplained Change in Mental Status Sepsis Action Taken by Nursing 07/27/21 21:31 07/27/21 21:55 07/27/21 22:28 Temperature Temperature Source Pulse Rate Pulse Rate from SpO2 Sensor 75 74 Respiratory Rate Respiratory Effort / Characteristics Respiratory Depth Blood Pressure 185/121 H 193/95 H Blood Pressure [Left Arm] 165/97 H Blood Pressure Mean 142 127 Blood Pressure Mean [Left Arm] 119 Pulse Oximetry 94 92 Oxygen Delivery Method Room Air Room Air Sepsis Recent Fever Within 48 Hours Sepsis New/Unexplained Change in Mental Status Sepsis Action Taken by Nursing Laboratory Data Result diagrams: 07/28/21 05:33 07/28/21 05:33 Lab Results 07/27/21 07/27/21 07/27/21 Range/Units 19:25 19:25 19:25 WBC 11.63 H (4.8-10.8) K/uL RBC 4.93 (4.7-6.1) M/uL Hgb 13.1 L (14.0-18.0) g/dL Hct 40.2 L (42-52) % MCV 81.5 (80-100) fL MCH 26.6 (25-34) pg MCHC 32.6 (32-36) g/dL RDW Std Deviation 49.8 H (36.4-46.3) fL RDW Coeff of Xin 16.6 H (11.5-14.5) % Plt Count 264 (130-400) K/uL MPV 9.4 (7.4-10.4) fL Immature Gran % (Auto) 0.3 % Neut % (Auto) 72.5 % Lymph % (Auto) 17.2 % Rabun % (Auto) 6.1 % Eos % (Auto) 3.4 % Baso % (Auto) 0.5 % Neut # (Auto) 8.44 H (1.4-6.5) K/uL Lymph # (Auto) 2.00 (1.2-3.4) K/uL Rabun # (Auto) 0.71 H (0.11-0.59) K/uL Eos # (Auto) 0.39 (0-0.5) K/uL Baso # (Auto) 0.06 (0-0.2) K/uL Immature Gran # (Auto) 0.03 H (0.00-0.02) K/uL Sodium 139 (136-145) mmol/L Potassium 3.9 (3.5-5.1) mmol/L Chloride 107 (98-107) mmol/L Carbon Dioxide 24 (21-32) mmol/L Anion Gap 8 (3-11) BUN 25 H (6-23) mg/dl Creatinine 0.99 (0.6-1.4) mg/dl Est Cr Clr Drug Dosing 111.3 ml/min Est GFR ( Amer) 92.9 ml/min Est GFR (Non-Af Amer) 80.2 ml/min BUN/Creatinine Ratio 25.3 H (10-20) Glucose 132 H (70-99(Fasting)) mg/dl Calcium 9.5 (8.5-10.1) mg/dl Total Bilirubin 0.4 (0.2-1.0) mg/dl AST 10 L (13-39) U/L ALT 10 (7-52) U/L Alkaline Phosphatase 202 H (34-104) U/L Total Protein 7.0 (6.0-8.3) gm/dl Albumin 3.8 (3.4-5.0) gm/dl Globulin 3.2 (2.5-4.0) gm/dl Albumin/Globulin Ratio 1.2 (0.9-2) TSH 2.953 (0.300-4.500) uIu/ml Urine Color Urine Appearance (Clear) Urine pH (4.5-7.5) Ur Specific [place] (1.000-1.030) Urine Protein (Negative) Urine Glucose (UA) (Negative) Urine Ketones (Negative) Urine Blood (Negative) Urine Nitrite (Negative) Urine Bilirubin (Negative) Urine Urobilinogen (Negative) Ur Leukocyte Esterase (Negative) Urine WBC (Auto) (0-5) /hpf Urine RBC (Auto) (0-4) /hpf U Hyaline Cast (Auto) (0-5) /lpf U Epithel Cells (Auto) (0-5) /lpf Urine Bacteria (Auto) (Negative) SARS-CoV-2, RNA, NAAT (NEGATIVE) 07/27/21 07/27/21 Range/Units 20:05 22:25 WBC (4.8-10.8) K/uL RBC (4.7-6.1) M/uL Hgb (14.0-18.0) g/dL Hct (42-52) % MCV (80-100) fL MCH (25-34) pg MCHC (32-36) g/dL RDW Std Deviation (36.4-46.3) fL RDW Coeff of Xin (11.5-14.5) % Plt Count (130-400) K/uL MPV (7.4-10.4) fL Immature Gran % (Auto) % Neut % (Auto) % Lymph % (Auto) % Rabun % (Auto) % Eos % (Auto) % Baso % (Auto) % Neut # (Auto) (1.4-6.5) K/uL Lymph # (Auto) (1.2-3.4) K/uL Rabun # (Auto) (0.11-0.59) K/uL Eos # (Auto) (0-0.5) K/uL Baso # (Auto) (0-0.2) K/uL Immature Gran # (Auto) (0.00-0.02) K/uL Sodium (136-145) mmol/L Potassium (3.5-5.1) mmol/L Chloride (98-107) mmol/L Carbon Dioxide (21-32) mmol/L Anion Gap (3-11) BUN (6-23) mg/dl Creatinine (0.6-1.4) mg/dl Est Cr Clr Drug Dosing ml/min Est GFR ( Amer) ml/min Est GFR (Non-Af Amer) ml/min BUN/Creatinine Ratio (10-20) Glucose (70-99(Fasting)) mg/dl Calcium (8.5-10.1) mg/dl Total Bilirubin (0.2-1.0) mg/dl AST (13-39) U/L ALT (7-52) U/L Alkaline Phosphatase (34-104) U/L Total Protein (6.0-8.3) gm/dl Albumin (3.4-5.0) gm/dl Globulin (2.5-4.0) gm/dl Albumin/Globulin Ratio (0.9-2) TSH (0.300-4.500) uIu/ml Urine Color Yellow Urine Appearance Clear (Clear) Urine pH 7.0 (4.5-7.5) Ur Specific [place] 1.022 (1.000-1.030) Urine Protein 4+ H (Negative) Urine Glucose (UA) Negative (Negative) Urine Ketones Negative (Negative) Urine Blood Trace H (Negative) Urine Nitrite Negative (Negative) Urine Bilirubin Negative (Negative) Urine Urobilinogen Negative (Negative) Ur Leukocyte Esterase Negative (Negative) Urine WBC (Auto) 1-5 (0-5) /hpf Urine RBC (Auto) 5-10 H (0-4) /hpf U Hyaline Cast (Auto) 1-5 (0-5) /lpf U Epithel Cells (Auto) 10-20 H (0-5) /lpf Urine Bacteria (Auto) Negative (Negative) SARS-CoV-2, RNA, NAAT NEGATIVE (NEGATIVE) Administered Medications Allopurinol (Allopurinol 300 Mg Tab) 300 mg PO DAILY ZOHAIB Stop: 08/27/21 08:59 Last Admin: 07/28/21 08:00 Dose: 300 mg Documented by: [id number] Amlodipine Besylate (Amlodipine Besylate 5 Mg Tab) 10 mg PO DAILY ZOHAIB Stop: 08/27/21 08:59 Last Admin: 07/28/21 08:00 Dose: 10 mg Documented by: [id number] Diclofenac Sodium (Diclofenac Sod 1% Gel 100 Gm Tube) 4 gm EXT BID ZOHAIB Stop: 08/27/21 08:59 Last Admin: 07/28/21 08:01 Dose: 4 gm Documented by: [id number] Duloxetine HCl (Duloxetine Hcl 60 Mg Cap) 60 mg PO DAILY ZOHAIB Stop: 08/27/21 08:59 Last Admin: 07/28/21 08:00 Dose: 60 mg Documented by: [id number] Ferrous Sulfate (Ferrous Sulfate 325 Mg Tab) 325 mg PO BIDM ZOHAIB Stop: 08/27/21 07:59 Last Admin: 07/28/21 08:00 Dose: 325 mg Documented by: [id number] Gabapentin (Gabapentin 400 Mg Cap) 400 mg PO TID ZOHAIB Stop: 08/27/21 08:59 Last Admin: 07/28/21 08:00 Dose: 400 mg Documented by: [id number] Heparin Sodium (Porcine) (Heparin Sod 5,000 Unit/0.5 Ml Vial) 7,500 units SQ Q8 ZOHAIB Stop: 08/27/21 05:59 Last Admin: 07/28/21 05:08 Dose: 7,500 units Documented by: [id number] Hydralazine HCl (Hydralazine Hcl 25 Mg Tab) 25 mg PO TID ZOHAIB Stop: 08/27/21 08:59 Last Admin: 07/28/21 07:59 Dose: 25 mg Documented by: [id number] Sodium Chloride (Nss 1000ml) 1,000 mls @ 50 mls/hr IV .Q20H ZOHAIB Stop: 07/29/21 00:59 Last Infusion: 07/28/21 09:10 Dose: 0 mls/hr Documented by: [id number] Admin: 07/28/21 04:53 Dose: 50 mls/hr Documented by: [id number] Insulin Aspart (Insulin Aspart Per Unit) 0 units SC ACHS ZOHAIB Stop: 08/27/21 07:29 Last Admin: 07/28/21 11:55 Dose: Not Given Documented by: [id number] Admin: 07/28/21 08:08 Dose: 2 units Documented by: [id number] Cosigned by: [id number] Labetalol HCl (Labetalol Hcl 100 Mg Tab) 100 mg PO BID ZOHAIB Stop: 08/27/21 08:59 Last Admin: 07/28/21 08:00 Dose: 100 mg Documented by: [id number] Lidocaine (Lidocaine 5% 1 Patch) 1 patch TD QAM ZOHAIB Stop: 08/27/21 08:59 Last Admin: 07/28/21 08:04 Dose: 1 patch Documented by: [id number] Lisinopril (Lisinopril 40 Mg Tab) 40 mg PO DAILY ZOHAIB Stop: 08/27/21 08:59 Last Admin: 07/28/21 08:00 Dose: 40 mg Documented by: [id number] Pantoprazole Sodium (Pantoprazole 40 Mg Tab) 40 mg PO DAILY ZOHAIB Stop: 08/27/21 08:59 Last Admin: 07/28/21 08:00 Dose: 40 mg Documented by: [id number] Sertraline HCl (Sertraline Hcl 100 Mg Tablet) 100 mg PO DAILY ZOHAIB Stop: 08/27/21 08:59 Last Admin: 07/28/21 08:00 Dose: 100 mg Documented by: [id number] Tamsulosin HCl (Tamsulosin Hcl 0.4 Mg Cap) 0.8 mg PO DAILY ZOHAIB Stop: 08/27/21 08:59 Last Admin: 07/28/21 08:00 Dose: 0.8 mg Documented by: [id number] Umeclidinium/Vilanterol (Umeclidinium/Vilanterol 62.5/25mcg 7 Puffs/Inhaler) 1 puffs INH DAILY ZOHAIB Stop: 08/27/21 08:59 Last Admin: 07/28/21 07:59 Dose: 1 puffs Documented by: [id number] Discharge Plan Visit Data Chief Complaint: Illness Stated Complaint: WEAKNESS, HEADACHE, BODY ACHES, FATIGUE Discharge Problem: Weakness, Chronic dyspnea, Dehydration Patient Disposition: Admitted As Inpatient Discharge Instructions Interventions: ED Discharge Assessment Last Done: 07/28/21 02:14
[2021-07-27 20:04] LABS: Albumin Globulin Ratio 1.2 (0.9-2); Albumin Level 3.8 gm/dl (3.4-5.0); BUN Creatinine Ratio 25.3 (10-20); Bilirubin,Total 0.4 mg/dl (0.2-1.0); Calcium 9.5 mg/dl (8.5-10.1); Creatinine Clr Calc Pharmacy 111.3 ml/min; Est GFR (African American) 92.9 ml/min; Est GFR (Non-African American) 80.2 ml/min; Globulin 3.2 gm/dl (2.5-4.0); Potassium 3.9 mmol/L (3.5-5.1)
[2021-07-27 20:19] LABS: Appearance Urine Clear (Clear); Bacteria Urine Automated Negative (Negative); Bilirubin Urine Negative (Negative); Blood Urine Trace (Negative); Color Urine Yellow; Glucose Urine UA Negative (Negative); Ketones Urine Negative (Negative); Leukocyte Esterase Urine Negative (Negative); Nitrite Urine Negative (Negative); Protein Urine 4+ (Negative); Specific Gravity Urine 1.022 (1.000-1.030); Urobilinogen Urine Negative (Negative)
--- NOTE | 2021-07-27 20:45 | XRay Report ---
SINGLE VIEW CHEST CLINICAL HISTORY: Generalized weakness. FINDINGS: 2 AP, portable, upright chest radiographs are compared to study dated 07/21/2021. Correlatio n is made with chest CT dated 07/14/2021. The examination is degraded by portable technique and apical lordotic positioning. The heart is enlarged noting atherosclerotic calcification of the thoracic aort a. The pulmonary vasculature is noncongested. Volume loss is again noted in the right lung. Chronic i nterstitial thickening is similar to previous and may represent post infectious/post inflammatory pernell nge. There is no evidence of acute airspace consolidation or large pleural effusion. No pneumothorax is seen. The skeletal structures are osteopenic. The bony thorax is grossly intact. IMPRESSION: Cardiomegaly and chronic parenchymal changes as above with no acute cardiopulmonary abnor mality identified. ACT 112: Negative or not required by law. Electronically signed by: Theron Veronica M.D. 07/27/2021 8:44 PM
[2021-07-28] MEDS ORDERED: ALBUTEROL HFA 8 GM INHALER INH PRN (02:26)
[2021-07-28] MEDS ORDERED: DOCUSATE SODIUM 100 MG CAP PO PRN (02:26)
[2021-07-28] MEDS ORDERED: BUMETANIDE 1 MG TAB PO PRN (02:26)
[2021-07-28] MEDS ORDERED: SODIUM CHLORIDE 0.9% 1000ML 1,000 ML IV SCH (02:26)
[2021-07-28] MEDS ORDERED: ONDANSETRON INJ 2 MG/ML 2 ML VIAL IV PRN (02:26)
[2021-07-28] MEDS ORDERED: POLYETHYLENE (MIRALAX) 17 GM PACK PO PRN ×2 (02:26)
[2021-07-28] MEDS ORDERED: NITROGLYCERIN SL 0.4 MG/TAB TAB SL PRN (02:26)
--- NOTE | 2021-07-28 02:28 | History and Physical Report ---
DATE OF ADMISSION: 07/27/2021. CHIEF COMPLAINT: Nausea, abdominal pain. HISTORY OF PRESENT ILLNESS: This is a 66-year-old male with past medical history significant for chronic diastolic heart failure, EF of 60% to 65%, history of CAD as per records, hypertension, hyperlipidemia, COPD, obstructive sleep apnea, CPAP intolerance, diabetes, on oral medication, mood disorder, chronic anemia, baseline hemoglobin around 10, medication noncompliance, history of past tobacco abuse, multiple admissions, was recently in the hospital for hypoxia and discharged, home oxygen was arranged. Last admission, he also had JARROD. His diuretics were changed to p.r.n. He was also found to have colonic mass and pathology was positive for invasive adenocarcinoma, supposed to follow up outpatient, did not follow up. The patient is somewhat Tearful because he was positive for adenocarcinoma. Says he does not want any more bad news. He says he does not know that he has a cancer. The patient lives alone. Says his brother and sister live close by and friends help him. He is walking okay at home and his family and neighbors get him food. He presents because of abdominal pain, nausea, not feeling well. He does not know when he moved his last bowel movement. He does not know if he has blood in the stools. Bladder movements are okay. Appetite is down. Denies any chest pain. He gets short of breath once in a while, cough once in a while. Has some headache now. No blurred visions. Hard of hearing. Has some runny nose. No sore throat. Hemodynamics are stable. ALLERGIES: No known drug allergies. PAST MEDICAL HISTORY: As mentioned above. PAST SURGICAL HISTORY: Colonoscopy, cataract surgery, knee surgery, incision and drainage. MEDICATIONS: The patient is on Tylenol 650 mg p.o. q. 4 hours p.r.n., albuterol 2 puffs inhalation q.i.d. p.r.n., allopurinol 300 mg p.o. daily, Norvasc 10 mg p.o. daily, Anoro Ellipta one inhalation daily, atorvastatin 40 mg p.o. at bedtime, Bumex 1 mg p.o. daily p.r.n., diclofenac sodium 4 g external b.i.d., Colace 100 mg p.o. b.i.d. p.r.n., duloxetine 60 mg p.o. daily, ferrous sulfate 325 mg p.o. b.i.d., gabapentin 400 mg p.o. t.i.d., hydralazine 25 mg p.o. daily, labetalol 100 mg p.o. b.i.d., lidocaine patch transdermal, lisinopril 40 mg p.o. daily, metformin 500 mg p.o. b.i.d. with meals, Singulair 10 mg p.o. at bedtime, Protonix 40 mg p.o. daily, MiraLax 17 g p.o. daily p.r.n., Zoloft 100 mg p.o. daily, Flomax 0.8 mg p.o. daily. FAMILY HISTORY: Significant for throat cancer. SOCIAL HISTORY: Former smoker. Seems to drink beer. REVIEW OF SYSTEMS: As per HPI. Rest of review of systems is negative. PHYSICAL EXAMINATION: GENERAL: The patient is morbidly obese, not in acute distress. VITAL SIGNS: Temperature 36.6, pulse 77, respiratory rate 18, blood pressure 165/97, oxygen 92% on room air. HEENT: Pupils equal, round and reactive to light. Oral mucosa moist. NECK: No JVD, no neck masses. CARDIOVASCULAR: S1 and S2 heard. Regular rate and rhythm. No murmur, no gallop. RESPIRATORY SYSTEM: Normal AP diameter. No accessory muscle use. No wheezing or crackles. ABDOMEN: Soft, bowel sounds present. Mild diffuse tenderness. No guarding, no rigidity. CENTRAL NERVOUS SYSTEM: Cranial nerves II-XII grossly intact, nonfocal. EXTREMITIES: Mild edema, no erythema seen. LABORATORY DATA: WBC 11.6, hemoglobin 13.1, hematocrit 40.2, platelets 264. Sodium 139, potassium 3.9, chloride 107, bicarbonate 24, BUN 25, creatinine 0.9, serum glucose 132, calcium 9.5, total bilirubin 0.4, AST 10, ALT 10, alkaline phosphatase 202. TSH 2.9. Urinalysis negative. SARS-CoV-2 negative. IMAGING DATA: Chest x-ray, cardiomegaly and chronic parenchymal changes. No acute cardiopulmonary abnormalities identified. EKG: With marked sinus rhythm at a rate of 74, bifascicular block. QTc of 508. ASSESSMENT AND PLAN: This 66-year-old male presents with nausea, abdominal pain. 1. Nausea, abdominal pain: Recent diagnosis of invasive adenocarcinoma of the colon. The patient states he does not know about the diagnosis. Supposed to see a colorectal surgeon. While the patient is here, will consult GI. Will place on clear liquid diet, antiemetics. Closely monitor. 2. History of hypertension: Continue his home medication of lisinopril, hydralazine, labetalol, and amlodipine. Iv hydralazine prn Monitor the blood pressure. 3. Diabetes: Hold metformin. Placed on sliding scale. Follow the blood sugars. 4. Sleep apnea: Noncompliant with CPAP. Oxygen as needed. 5. Morbid obesity: Needs counseling. 6. Depression: Continue his home medication. 7. History of alcohol abuse: Will monitor for any withdrawals. Last admission, there were no withdrawal symptoms. 8. Chronic diastolic congestive heart failure: On Bumex p.r.n. Will monitor for any volume overload. 9. Chronic kidney disease stage III: Baseline creatinine around 1.4, currently with a creatinine of 0.9. Will follow the labs. 10. Anemia: His hemoglobin is stable at 13.9. 11. Deep venous thrombosis prophylaxis: Placed on heparin subQ. Will hold if any signs of bleeding. DISPOSITION: Closely monitor in the [employer] tele. PT/OT prior to discharge. Social service to help with discharge planning. The patient having multiple admissions. As he lives alone, may need 24-hour care at home or any long-term placement. FULL CODE. Job ID: [id number]
[2021-07-28] MEDS ORDERED: MoRPHine SULFATE 4 MG/ML 1 ML CARP\\VIAL IV PRN (02:39)
[2021-07-28] MEDS ORDERED: GLUCOSE 40% GEL 15 GM TUBE PO PRN (02:45)
[2021-07-28] MEDS ORDERED: DEXTROSE 50% 50 ML SYRINGE IV PRN (02:45)
[2021-07-28] MEDS ORDERED: GLUCAGON FOR INJ 1 MG VIAL IM PRN (02:45)
[2021-07-28] MEDS ORDERED: CARBOHYDRATES FOR HYPOGLYCEMIA PO PRN (02:45)
[2021-07-28] MEDS ORDERED: GLUCOSE 10 TABS/TUBE PO PRN (02:45)
[2021-07-28] MEDS ORDERED: Nursing to Pharmacy Communication SCH (05:00)
[2021-07-28] MEDS: HEPARIN SOD 5,000 UNIT/0.5 ML VIAL SQ SCH ×3 (05:08→21:45)
[2021-07-28 05:56] LABS: Basophils # (auto) 0.06 K/uL (0-0.2); Basophils % (auto) 0.6 %; Eosinophils # (auto) 0.44 K/uL (0-0.5); Eosinophils % (auto) 4.1 %; Hematocrit (blood only) 38.1 % (42-52); Hemoglobin 12.3 g/dL (14.0-18.0); Immature Granulocytes # (auto) 0.03 K/uL (0.00-0.02); Immature Granulocytes % (auto) 0.3 %; Lymphocytes # (auto) 1.97 K/uL (1.2-3.4); Lymphocytes % (auto) 18.4 %; Mean Corpuscular Hemoglobin 26.7 pg (25-34); Mean Corpuscular Hgb Conc 32.3 g/dL (32-36); Mean Corpuscular Volume 82.8 fL (80-100); Mean Platelet Volume 9.3 fL (7.4-10.4); Monocytes # (auto) 0.83 K/uL (0.11-0.59); Monocytes % (auto) 7.8 %; Neutrophils # (auto) 7.35 K/uL (1.4-6.5); Neutrophils % (auto) 68.8 %; Platelet Count 234 K/uL (130-400); RDW Coefficient of Variation 16.8 % (11.5-14.5); White Blood Count 10.68 K/uL (4.8-10.8)
[2021-07-28 06:23] LABS: BUN Creatinine Ratio 25.3 (10-20); Calcium 9.2 mg/dl (8.5-10.1); Est GFR (African American) 92.9 ml/min; Est GFR (Non-African American) 80.2 ml/min; Magnesium 1.9 mg/dl (1.7-2.4); Potassium 3.7 mmol/L (3.5-5.1)
[2021-07-28] MEDS ORDERED: hydrALAZINE HCL 20 MG/ML VIAL IV PRN (06:35)
[2021-07-28 07:26] LABS: Estimated Average Glucose 143 mg/dl; Hemoglobin A1C 6.6 % (4.5-5.6)
[2021-07-28 07:48] LABS: Base Excess ABG 0.4 mEq/L (-9-1.8); HCO3 ABG 24 mmol/L (19-24); Oxygen Saturation ABG 91.9 % (90-95); PCO2 ABG 35 mmHg (35-46); PO2 ABG 62 mmHg (80-95); pH ABG 7.45 (7.35-7.45)
[2021-07-28 07:49] LABS: Allen Test Pos (Pos)
[2021-07-28] MEDS: hydrALAZINE HCL 25 MG TAB PO SCH ×3 (07:59→21:45)
[2021-07-28] MEDS: UMECLIDINIUM/VILANTEROL 62.5/25MCG 7 PUFFS/INHALER INH SCH (07:59)
[2021-07-28] MEDS: SERTRALINE HCL 100 MG TABLET PO SCH (08:00)
[2021-07-28] MEDS: lisinopril 40 MG TAB PO SCH (08:00)
[2021-07-28] MEDS: DULoxetine HCL 60 MG CAP PO SCH (08:00)
[2021-07-28] MEDS: FERROUS SULFATE 325 MG TAB PO SCH ×2 (08:00→16:12)
[2021-07-28] MEDS: amLODIPine BESYLATE 5 MG TAB PO SCH (08:00)
[2021-07-28] MEDS: allopurinoL 300 MG TAB PO SCH (08:00)
[2021-07-28] MEDS: GABAPENTIN 400 MG CAP PO SCH ×3 (08:00→21:44)
[2021-07-28] MEDS: PANTOprazole 40 MG TAB PO SCH (08:00)
[2021-07-28] MEDS: TAMSULOSIN HCL 0.4 MG CAP PO SCH (08:00)
[2021-07-28] MEDS: LABETALOL HCL 100 MG TAB PO SCH ×2 (08:00→21:44)
[2021-07-28] MEDS: DICLOFENAC SOD 1% GEL 100 GM TUBE EXT SCH ×2 (08:01→21:45)
[2021-07-28] MEDS: LIDOCAINE 5% 1 PATCH TD SCH (08:04)
[2021-07-28] MEDS: INSULIN ASPART PER UNIT SC SCH ×4 (08:08→21:45)
--- NOTE | 2021-07-28 09:03 | Gastrointestinal Consultation ---
Date of Consultation July 28, 2021 Assessment & Plan (1) Colonic mass: 66 year old male admitted w/ generalized weakness, decreased PO intake and report of generalized abdominal pain, colonoscopy in July with rectal adenocarcinoma Given his discomfort, consider CTAP today Continue with outpatient lower US Continue with outpatient colorectal appointment Continue conservative management Thank you for allowing us to participate in the care of this patient. Please call with any acute changes, questions or concerns. Please see addendum below with additional recommendation from my supervising physician. Supervising Physician Co-Signing Physician Notes I saw and evaluated the patient. The patient is a very poor historian and unable to give much historical information. It appears that he does have a history of sleep apnea and is on CPAP as an outpatient. He was admitted with worsening abdominal discomfort and has an abdominal x-ray which seems to show air within the small intestine. There is no evidence of significant constipation or outlet obstruction. The patient was recently diagnosed with rectal cancer and is to have an outpatient transrectal ultrasound and consu ltation with colorectal surgery. This was previously discussed with the patient and his caregiver at home he is even been sent letters with his diagnosis and treatment plan. Physical examination Disheveled appearing, obese No epigastric tenderness to palpation Impression: Patient with a recent diagnosis of rectal cancer admitted with abdominal discomfort. I wonder if the abdominal discomfort is related to use of CPAP at home. With regard to the rectal cancer the patient is scheduled to have a transrectal ultrasound for staging in addition to evaluation by colorectal surgery. Please call with any questions or concerns during the remainder the hospital admission GI to sign off History of Present Illness Reason for Consultation: colon mass, abd pain Requesting Physician: Dr. Rice Attending Physician: Clarissa Rice MD History of Present Illness 66 year old male with history of DM-2, CKD, obesity, FRANCIS, depression, CHF, recently diagnosed colonic mass admitted w/ weakness, decreased PO intake - GI asked to evaluate for abdominal pain. Pt was seen and evaluated, chart reviewed. He is a poor historian. He suggests vague, generalized abd pain. Worse with BM. Unable to tell me when his last BM was but per documentation this was reported as normal yesterday. He denies black/bloody stools but has had this intermittently over the last year which lead to the diagnosis of his colonic mass. He has plan for outpatient lower US and colorectal examinations. Colonoscopy 2022: Preparation of the colon was fair. - Three 5 to 8 mm polyps at the hepatic flexure, removed with a hot snare. Resected and retrieved. - Two 4 to 5 mm polyps in the transverse colon, removed with a cold snare. Resected and retrieved. - Rule out malignancy, tumor in the rectum. Biopsied with snare resection of the edge. - Internal hemorrhoids. Allergies Allergy/AdvReac Type Severity Reaction Status Date / Time No Known Allergies Allergy Verified 07/21/21 19:47 Home Medications Medication Instructions Recorded Confirmed Type polyethylene glycol 3350 17 gram 17 g PO DAILY PRN 11/29/20 07/27/21 History oral powder packet (Miralax) blood sugar diagnostic (Gluco #50 ea 05/09/21 07/27/21 Rx Navii Test Strip) blood-glucose meter (Gluco Navii #1 ea 05/09/21 07/27/21 Rx Glucose Monitor) lancets #100 ea 05/09/21 07/27/21 Rx acetaminophen 325 mg tablet 650 mg PO Q4 PRN #30 tab 06/15/21 07/27/21 Rx (Tylenol) albuterol sulfate 90 mcg/actuation 2 puff INHALATION QID PRN #8.5 g 06/15/21 07/27/21 Rx aerosol inhaler (Ventolin HFA) allopurinol 300 mg tablet 300 mg PO DAILY #30 tab 06/15/21 07/27/21 Rx amlodipine 5 mg tablet (Norvasc) 10 mg PO DAILY #60 tab 06/15/21 07/27/21 Rx atorvastatin 40 mg tablet 40 mg PO HS #30 tab 06/15/21 07/27/21 Rx diclofenac sodium 1 % topical gel 4 g EXT BID #100 g 06/15/21 07/27/21 Rx (Voltaren Arthritis Pain) docusate sodium 100 mg capsule 100 mg PO BID PRN #60 cap 06/15/21 07/27/21 Rx (Stool Softener) duloxetine 60 mg capsule,delayed 60 mg PO DAILY #30 cap 06/15/21 07/27/21 Rx release ferrous sulfate 325 mg (65 mg 325 mg PO BIDM #14 tab 06/15/21 07/27/21 Rx iron) tablet,delayed release labetalol 100 mg tablet 100 mg PO BID #60 tab 06/15/21 07/27/21 Rx metformin 500 mg tablet 500 mg PO BIDWMEAL #60 tab 06/15/21 07/27/21 Rx montelukast 10 mg tablet 10 mg PO HS #30 tab 06/15/21 07/27/21 Rx (Singulair) pantoprazole 40 mg tablet,delayed 40 mg PO DAILY #30 tab 06/15/21 07/27/21 Rx release sertraline 100 mg tablet (Zoloft) 100 mg PO DAILY #30 tab 06/15/21 07/27/21 Rx tamsulosin 0.4 mg capsule (Flomax) 0.8 mg PO DAILY #30 cap 06/15/21 07/27/21 Rx umeclidinium 62.5 mcg-vilanterol 1 inh INHALATION DAILY #14 ea 06/15/21 07/27/21 Rx 25 mcg/actuation powdr for inhalation (Anoro Ellipta) lisinopril 30 mg tablet (Zestril) 40 mg PO DAILY 07/09/21 07/27/21 History bumetanide 1 mg tablet 1 mg PO DAILY PRN #30 tab 07/15/21 07/27/21 Rx gabapentin 400 mg capsule 400 mg PO TID 60 Days #90 cap 07/15/21 07/27/21 Rx hydralazine 25 mg tablet 25 mg PO TID #90 tab 07/15/21 07/27/21 Rx lidocaine 5 % topical patch 1 patch TRANSDERMAL QAM 14 Days 07/15/21 07/27/21 Rx #14 ea Patient History Medical History Abnormal posture Ambulatory dysfunction Anemia Chronic diastolic CHF (congestive heart failure) Chronic respiratory failure with hypoxia Coronary artery disease Depression Diabetes mellitus, type II Gout History of blood transfusion History of COVID-19 Hyperlipidemia Hypertension Mood disorder Morbid obesity FRANCIS (obstructive sleep apnea) Septic arthritis Ventricular tachycardia Wrist arthritis Wrist arthritis Surgical History Cataract extraction status, unspecified eye H/O knee surgery History of incision and drainage Family History Other Throat cancer Social History Smoking Status: Former smoker Tobacco Type: Cigarettes Second Hand Exposure: No; Do You Dip or Chew Tobacco: No; Tobacco Cessation Education Requested by Patient: No Hx Alcohol Use: Yes Alcohol type: beer Hx Substance Use: Yes Last Used Substance: Unknown Preferred Language: Grenadian Communication Ability: Effective Seat Maker Required: No Beliefs That Will Affect Care: None marital status: Single Current Living Situation: Alone Current Living Situation Comment: [facility] How many Children do You have: 0 Other Information That Helps Us Care for You: No Feels Safe at Home: Yes Assistive Devices: None Review of Systems Review of Systems: All systems reviewed & are unremarkable except as noted in HPI & below Physical Exam Constitutional: WD/WN, vitals as above Respiratory: normal respiratory effort, lungs clear to auscultation Cardiovascular: Rate/Rhythm: regular rate Gastrointestinal (Abdomen): normal bowel sounds, soft, nontender, no hepatosplenomegaly Skin: no rashes, warm and dry Results & Data ([facility]) Vital Signs (Past 12 Hours) Vital Signs Temp Pulse Pulse Pulse Resp BP BP 07/28/21 07:37 36.4 C L 70 18 193/82 H 07/28/21 07:20 75 07/28/21 02:34 36.6 C 89 20 145/92 H 07/28/21 02:25 76 07/28/21 02:04 36.6 C 89 20 145/92 H 07/28/21 00:56 79 22 169/97 H 07/27/21 22:28 165/97 H 07/27/21 21:55 193/95 H 07/27/21 21:31 185/121 H 07/27/21 21:00 180/104 H BP Pulse Ox 07/28/21 07:37 91 07/28/21 07:20 07/28/21 02:34 202/99 H 93 07/28/21 02:25 07/28/21 02:04 202/99 H 93 07/28/21 00:56 96 07/27/21 22:28 07/27/21 21:55 92 07/27/21 21:31 94 07/27/21 21:00 93 Laboratory Results 07/28/21 07/28/21 07/28/21 Range/Units 07:37 07:36 05:33 WBC (4.8-10.8) K/uL RBC (4.7-6.1) M/uL Hgb (14.0-18.0) g/dL Hct (42-52) % MCV (80-100) fL MCH (25-34) pg MCHC (32-36) g/dL RDW Std Deviation (36.4-46.3) fL RDW Coeff of Xin (11.5-14.5) % Plt Count (130-400) K/uL MPV (7.4-10.4) fL Immature Gran % (Auto) % Neut % (Auto) % Lymph % (Auto) % [place] % (Auto) % Eos % (Auto) % Baso % (Auto) % Neut # (Auto) (1.4-6.5) K/uL Lymph # (Auto) (1.2-3.4) K/uL [place] # (Auto) (0.11-0.59) K/uL Eos # (Auto) (0-0.5) K/uL Baso # (Auto) (0-0.2) K/uL Immature Gran # (Auto) (0.00-0.02) K/uL ABG pH 7.45 (7.35-7.45) ABG pCO2 35 (35-46) mmHg ABG pO2 62 L (80-95) mmHg ABG HCO3 24 (19-24) mmol/L ABG O2 Saturation 91.9 (90-95) % ABG Base Excess 0.4 (-9-1.8) mEq/L Mg Test Pos (Pos) Barometric Pressure 727.9 mm/Hg Oxygen Given RA Sodium (136-145) mmol/L Potassium (3.5-5.1) mmol/L Chloride (98-107) mmol/L Carbon Dioxide (21-32) mmol/L Anion Gap (3-11) BUN (6-23) mg/dl Creatinine (0.6-1.4) mg/dl Est Cr Clr Drug Dosing ml/min Est GFR ( Amer) ml/min Est GFR (Non-Af Amer) ml/min BUN/Creatinine Ratio (10-20) Glucose (70-99(Fasting)) mg/dl POC Glucose 136 H (70-99) mg/dl Estimat Average Glucose 143 mg/dl Hemoglobin A1c 6.6 H (4.5-5.6) % Calcium (8.5-10.1) mg/dl Magnesium (1.7-2.4) mg/dl Total Bilirubin (0.2-1.0) mg/dl AST (13-39) U/L ALT (7-52) U/L Alkaline Phosphatase (34-104) U/L Total Protein (6.0-8.3) gm/dl Albumin (3.4-5.0) gm/dl Globulin (2.5-4.0) gm/dl Albumin/Globulin Ratio (0.9-2) TSH (0.300-4.500) uIu/ml Urine Color Urine Appearance (Clear) Urine pH (4.5-7.5) Ur Specific [place] (1.000-1.030) Urine Protein (Negative) Urine Glucose (UA) (Negative) Urine Ketones (Negative) Urine Blood (Negative) Urine Nitrite (Negative) Urine Bilirubin (Negative) Urine Urobilinogen (Negative) Ur Leukocyte Esterase (Negative) Urine WBC (Auto) (0-5) /hpf Urine RBC (Auto) (0-4) /hpf U Hyaline Cast (Auto) (0-5) /lpf U Epithel Cells (Auto) (0-5) /lpf Urine Bacteria (Auto) (Negative) SARS-CoV-2, RNA, NAAT (NEGATIVE) 07/28/21 07/28/21 07/27/21 Range/Units 05:33 05:33 22:25 WBC 10.68 (4.8-10.8) K/uL RBC 4.60 L (4.7-6.1) M/uL Hgb 12.3 L (14.0-18.0) g/dL Hct 38.1 L (42-52) % MCV 82.8 (80-100) fL MCH 26.7 (25-34) pg MCHC 32.3 (32-36) g/dL RDW Std Deviation 51.0 H (36.4-46.3) fL RDW Coeff of Xin 16.8 H (11.5-14.5) % Plt Count 234 (130-400) K/uL MPV 9.3 (7.4-10.4) fL Immature Gran % (Auto) 0.3 % Neut % (Auto) 68.8 % Lymph % (Auto) 18.4 % [place] % (Auto) 7.8 % Eos % (Auto) 4.1 % Baso % (Auto) 0.6 % Neut # (Auto) 7.35 H (1.4-6.5) K/uL Lymph # (Auto) 1.97 (1.2-3.4) K/uL [place] # (Auto) 0.83 H (0.11-0.59) K/uL Eos # (Auto) 0.44 (0-0.5) K/uL Baso # (Auto) 0.06 (0-0.2) K/uL Immature Gran # (Auto) 0.03 H (0.00-0.02) K/uL ABG pH (7.35-7.45) ABG pCO2 (35-46) mmHg ABG pO2 (80-95) mmHg ABG HCO3 (19-24) mmol/L ABG O2 Saturation (90-95) % ABG Base Excess (-9-1.8) mEq/L Mg Test (Pos) Barometric Pressure mm/Hg Oxygen Given Sodium 139 (136-145) mmol/L Potassium 3.7 (3.5-5.1) mmol/L Chloride 106 (98-107) mmol/L Carbon Dioxide 25 (21-32) mmol/L Anion Gap 8 (3-11) BUN 25 H (6-23) mg/dl Creatinine 0.99 (0.6-1.4) mg/dl Est Cr Clr Drug Dosing 112.0 ml/min Est GFR ( Amer) 92.9 ml/min Est GFR (Non-Af Amer) 80.2 ml/min BUN/Creatinine Ratio 25.3 H (10-20) Glucose 128 H (70-99(Fasting)) mg/dl POC Glucose (70-99) mg/dl Estimat Average Glucose mg/dl Hemoglobin A1c (4.5-5.6) % Calcium 9.2 (8.5-10.1) mg/dl Magnesium 1.9 (1.7-2.4) mg/dl Total Bilirubin (0.2-1.0) mg/dl AST (13-39) U/L ALT (7-52) U/L Alkaline Phosphatase (34-104) U/L Total Protein (6.0-8.3) gm/dl Albumin (3.4-5.0) gm/dl Globulin (2.5-4.0) gm/dl Albumin/Globulin Ratio (0.9-2) TSH (0.300-4.500) uIu/ml Urine Color Urine Appearance (Clear) Urine pH (4.5-7.5) Ur Specific [place] (1.000-1.030) Urine Protein (Negative) Urine Glucose (UA) (Negative) Urine Ketones (Negative) Urine Blood (Negative) Urine Nitrite (Negative) Urine Bilirubin (Negative) Urine Urobilinogen (Negative) Ur Leukocyte Esterase (Negative) Urine WBC (Auto) (0-5) /hpf Urine RBC (Auto) (0-4) /hpf U Hyaline Cast (Auto) (0-5) /lpf U Epithel Cells (Auto) (0-5) /lpf Urine Bacteria (Auto) (Negative) SARS-CoV-2, RNA, NAAT NEGATIVE (NEGATIVE) 07/27/21 07/27/21 07/27/21 Range/Units 20:05 19:25 19:25 WBC (4.8-10.8) K/uL RBC (4.7-6.1) M/uL Hgb (14.0-18.0) g/dL Hct (42-52) % MCV (80-100) fL MCH (25-34) pg MCHC (32-36) g/dL RDW Std Deviation (36.4-46.3) fL RDW Coeff of Xin (11.5-14.5) % Plt Count (130-400) K/uL MPV (7.4-10.4) fL Immature Gran % (Auto) % Neut % (Auto) % Lymph % (Auto) % [place] % (Auto) % Eos % (Auto) % Baso % (Auto) % Neut # (Auto) (1.4-6.5) K/uL Lymph # (Auto) (1.2-3.4) K/uL [place] # (Auto) (0.11-0.59) K/uL Eos # (Auto) (0-0.5) K/uL Baso # (Auto) (0-0.2) K/uL Immature Gran # (Auto) (0.00-0.02) K/uL ABG pH (7.35-7.45) ABG pCO2 (35-46) mmHg ABG pO2 (80-95) mmHg ABG HCO3 (19-24) mmol/L ABG O2 Saturation (90-95) % ABG Base Excess (-9-1.8) mEq/L Mg Test (Pos) Barometric Pressure mm/Hg Oxygen Given Sodium 139 (136-145) mmol/L Potassium 3.9 (3.5-5.1) mmol/L Chloride 107 (98-107) mmol/L Carbon Dioxide 24 (21-32) mmol/L Anion Gap 8 (3-11) BUN 25 H (6-23) mg/dl Creatinine 0.99 (0.6-1.4) mg/dl Est Cr Clr Drug Dosing 111.3 ml/min Est GFR ( Amer) 92.9 ml/min Est GFR (Non-Af Amer) 80.2 ml/min BUN/Creatinine Ratio 25.3 H (10-20) Glucose 132 H (70-99(Fasting)) mg/dl POC Glucose (70-99) mg/dl Estimat Average Glucose mg/dl Hemoglobin A1c (4.5-5.6) % Calcium 9.5 (8.5-10.1) mg/dl Magnesium (1.7-2.4) mg/dl Total Bilirubin 0.4 (0.2-1.0) mg/dl AST 10 L (13-39) U/L ALT 10 (7-52) U/L Alkaline Phosphatase 202 H (34-104) U/L Total Protein 7.0 (6.0-8.3) gm/dl Albumin 3.8 (3.4-5.0) gm/dl Globulin 3.2 (2.5-4.0) gm/dl Albumin/Globulin Ratio 1.2 (0.9-2) TSH 2.953 (0.300-4.500) uIu/ml Urine Color Yellow Urine Appearance Clear (Clear) Urine pH 7.0 (4.5-7.5) Ur Specific [place] 1.022 (1.000-1.030) Urine Protein 4+ H (Negative) Urine Glucose (UA) Negative (Negative) Urine Ketones Negative (Negative) Urine Blood Trace H (Negative) Urine Nitrite Negative (Negative) Urine Bilirubin Negative (Negative) Urine Urobilinogen Negative (Negative) Ur Leukocyte Esterase Negative (Negative) Urine WBC (Auto) 1-5 (0-5) /hpf Urine RBC (Auto) 5-10 H (0-4) /hpf U Hyaline Cast (Auto) 1-5 (0-5) /lpf U Epithel Cells (Auto) 10-20 H (0-5) /lpf Urine Bacteria (Auto) Negative (Negative) SARS-CoV-2, RNA, NAAT (NEGATIVE) 07/27/21 Range/Units 19:25 WBC 11.63 H (4.8-10.8) K/uL RBC 4.93 (4.7-6.1) M/uL Hgb 13.1 L (14.0-18.0) g/dL Hct 40.2 L (42-52) % MCV 81.5 (80-100) fL MCH 26.6 (25-34) pg MCHC 32.6 (32-36) g/dL RDW Std Deviation 49.8 H (36.4-46.3) fL RDW Coeff of Xin 16.6 H (11.5-14.5) % Plt Count 264 (130-400) K/uL MPV 9.4 (7.4-10.4) fL Immature Gran % (Auto) 0.3 % Neut % (Auto) 72.5 % Lymph % (Auto) 17.2 % [place] % (Auto) 6.1 % Eos % (Auto) 3.4 % Baso % (Auto) 0.5 % Neut # (Auto) 8.44 H (1.4-6.5) K/uL Lymph # (Auto) 2.00 (1.2-3.4) K/uL [place] # (Auto) 0.71 H (0.11-0.59) K/uL Eos # (Auto) 0.39 (0-0.5) K/uL Baso # (Auto) 0.06 (0-0.2) K/uL Immature Gran # (Auto) 0.03 H (0.00-0.02) K/uL ABG pH (7.35-7.45) ABG pCO2 (35-46) mmHg ABG pO2 (80-95) mmHg ABG HCO3 (19-24) mmol/L ABG O2 Saturation (90-95) % ABG Base Excess (-9-1.8) mEq/L Mg Test (Pos) Barometric Pressure mm/Hg Oxygen Given Sodium (136-145) mmol/L Potassium (3.5-5.1) mmol/L Chloride (98-107) mmol/L Carbon Dioxide (21-32) mmol/L Anion Gap (3-11) BUN (6-23) mg/dl Creatinine (0.6-1.4) mg/dl Est Cr Clr Drug Dosing ml/min Est GFR ( Amer) ml/min Est GFR (Non-Af Amer) ml/min BUN/Creatinine Ratio (10-20) Glucose (70-99(Fasting)) mg/dl POC Glucose (70-99) mg/dl Estimat Average Glucose mg/dl Hemoglobin A1c (4.5-5.6) % Calcium (8.5-10.1) mg/dl Magnesium (1.7-2.4) mg/dl Total Bilirubin (0.2-1.0) mg/dl AST (13-39) U/L ALT (7-52) U/L Alkaline Phosphatase (34-104) U/L Total Protein (6.0-8.3) gm/dl Albumin (3.4-5.0) gm/dl Globulin (2.5-4.0) gm/dl Albumin/Globulin Ratio (0.9-2) TSH (0.300-4.500) uIu/ml Urine Color Urine Appearance (Clear) Urine pH (4.5-7.5) Ur Specific [place] (1.000-1.030) Urine Protein (Negative) Urine Glucose (UA) (Negative) Urine Ketones (Negative) Urine Blood (Negative) Urine Nitrite (Negative) Urine Bilirubin (Negative) Urine Urobilinogen (Negative) Ur Leukocyte Esterase (Negative) Urine WBC (Auto) (0-5) /hpf Urine RBC (Auto) (0-4) /hpf U Hyaline Cast (Auto) (0-5) /lpf U Epithel Cells (Auto) (0-5) /lpf Urine Bacteria (Auto) (Negative) SARS-CoV-2, RNA, NAAT (NEGATIVE)
--- NOTE | 2021-07-28 11:45 | XRay Report ---
XR KUB/Abdomen 1 view CLINICAL HISTORY: abd discomfort, known colon mass TECHNIQUE: 1 view of the abdomen was obtained. Comparison: None available at the time of this dictation. FINDINGS: Lung bases are unremarkable. The osseous structures are grossly unremarkable. Gas distended loops of small bowel are seen without paige dilation. Small stool burden is seen. IMPRESSION: Gas-distended loops of small bowel without paige dilation to suggest obstruction. ACT 112: Negative or not required by law. Electronically signed by: Kavon Mcdaniel M.D. 07/28/2021 11:44 AM
--- NOTE | 2021-07-28 15:20 | Hospitalist Progress Note ---
Date of Service July 28, 2021 Assessment & Plan Plan: Nausea -will obtain CT A/P with PO and IV contrast -Does not appear to have bowel obstruction, he is tolerating clears, self reported to have a BM this morning -AXR non obstructive pattern Recent diagnosis of rectal cancer -patient claims to not have knowledge of this diagnosis but was in fact counseled on this diagnosis and educated on need for follow up with colorectal surgery -wiill await CT A/P HTN -continue home medications with hold parameters COPD Likely Obesity hypoventilation syndrome FRANCIS -arranged for home Oxygen at last visit. He is on 2L NC PRN with exertion -CPAP Disposition -At high risk for readmission due to non compliance, refusal for rehab. He again refuses SNF placement and reports he was forced back to the hospital by his neighbor/EMS. DVT ppx SQ lovenox Admission and Anticipated Discharge Date Admission Date: July 27, 2021 Subjective Reports nausea, feeling weak, occasional light headedness Declines rehab placement "I don't want to go anywhere on earth! Where will you send me?" Reports he didn't want to come to the hospital but his neighbor called his doctor and then EMS Patient reports having no family support Patient with multiple questions about his colon cancer. He repeatedly asks the same questions. "What's the point?" "I don't know anyone who survived cancer, do you?" Reports having had a BM this morning. He does not know if it was bloody "I don't look at it!" Physical Exam Physical Exam: Obese, dishevelled, poor historian Respiratory: breathing comfortably on room air, no wheezing/rhonchi/rales Cardiovascular: regular rate and rhythm, no murmurs/rubs/gallops Gastrointestinal (Abdomen): obese, non tender Musculoskeletal: trace edema Neurologic: awake, alert, spontaneously moving extremities Psychiatric: anxious, poor historian, circumferential in his speech, exhibits poor insight into disease process Results & Data Results & Data ([facility]) Vital Signs (Past 12 Hours) Vital Signs Temp Pulse Pulse Resp BP BP Pulse Ox 07/28/21 14:19 37.2 C 69 19 157/85 H 90 07/28/21 11:00 36.6 C 58 L 18 146/62 H 90 07/28/21 07:37 36.4 C L 70 18 193/82 H 91 07/28/21 07:20 75 Laboratory Results Short CBC 07/27/21 07/28/21 Range/Units 19:25 05:33 WBC 11.63 H 10.68 (4.8-10.8) K/uL Hgb 13.1 L 12.3 L (14.0-18.0) g/dL Hct 40.2 L 38.1 L (42-52) % Plt Count 264 234 (130-400) K/uL BMP 07/27/21 07/28/21 19:25 05:33 Sodium 139 139 Potassium 3.9 3.7 Chloride 107 106 Carbon Dioxide 24 25 BUN 25 H 25 H Creatinine 0.99 0.99 Glucose 132 H 128 H Calcium 9.5 9.2 Liver Function 07/27/21 Range/Units 19:25 Total Bilirubin 0.4 (0.2-1.0) mg/dl AST 10 L (13-39) U/L ALT 10 (7-52) U/L Alkaline Phosphatase 202 H (34-104) U/L Albumin 3.8 (3.4-5.0) gm/dl Urine 07/27/21 Range/Units 20:05 Urine Color Yellow Urine Appearance Clear (Clear) Urine pH 7.0 (4.5-7.5) Ur Specific [place] 1.022 (1.000-1.030) Urine Protein 4+ H (Negative) Urine Glucose (UA) Negative (Negative) Medications Administered Current Inpatient Medications Acetaminophen (Acetaminophen 325 Mg Tab) 650 mg PO Q4H PRN PRN Reason: Pain or Fever Stop: 08/27/21 02:25 Albuterol (Albuterol Hfa 8 Gm Inhaler) 2 puffs INH QID PRN PRN Reason: Shortness Of Breath Stop: 08/27/21 02:25 Allopurinol (Allopurinol 300 Mg Tab) 300 mg PO DAILY [facility] Stop: 08/27/21 08:59 Last Admin: 07/28/21 08:00 Dose: 300 mg Documented by: Amlodipine Besylate (Amlodipine Besylate 5 Mg Tab) 10 mg PO DAILY [facility] Stop: 08/27/21 08:59 Last Admin: 07/28/21 08:00 Dose: 10 mg Documented by: Atorvastatin Calcium (Atorvastatin 40 Mg Tab) 40 mg PO HS [facility] Stop: 08/27/21 20:59 Bumetanide (Bumetanide 1 Mg Tab) 1 mg PO DAILY PRN PRN Reason: Edema Stop: 08/27/21 02:25 Dextrose (Dextrose 50% 50 Ml Syringe) 25 - 50 ml IV UD PRN; Protocol PRN Reason: Hypoglycemia Protocol Stop: 08/27/21 02:44 Diclofenac Sodium (Diclofenac Sod 1% Gel 100 Gm Tube) 4 gm EXT BID [facility] Stop: 08/27/21 08:59 Last Admin: 07/28/21 08:01 Dose: 4 gm Documented by: Docusate Sodium (Docusate Sodium 100 Mg Cap) 100 mg PO BID PRN PRN Reason: Constipation Stop: 08/27/21 02:25 Duloxetine HCl (Duloxetine Hcl 60 Mg Cap) 60 mg PO DAILY [facility] Stop: 08/27/21 08:59 Last Admin: 07/28/21 08:00 Dose: 60 mg Documented by: Ferrous Sulfate (Ferrous Sulfate 325 Mg Tab) 325 mg PO BIDM [facility] Stop: 08/27/21 07:59 Last Admin: 07/28/21 08:00 Dose: 325 mg Documented by: Gabapentin (Gabapentin 400 Mg Cap) 400 mg PO TID [facility] Stop: 08/27/21 08:59 Last Admin: 07/28/21 15:06 Dose: 400 mg Documented by: Glucagon (Glucagon For Inj 1 Mg Vial) 1 mg IM UD PRN; Protocol PRN Reason: Hypoglycemia Protocol Stop: 08/27/21 02:44 Glucose (Glucose 40% Gel 15 Gm Tube) 15 - 30 gm PO UD PRN; Protocol PRN Reason: Hypoglycemia Protocol Stop: 08/27/21 02:44 Glucose (Glucose 10 Tabs/Tube) 4 - 8 tabs PO UD PRN; Protocol PRN Reason: Hypoglycemia Protocol Stop: 08/27/21 02:44 Heparin Sodium (Porcine) (Heparin Sod 5,000 Unit/0.5 Ml Vial) 7,500 units SQ Q8 [facility] Stop: 08/27/21 05:59 Last Admin: 07/28/21 14:28 Dose: 7,500 units Documented by: Hydralazine HCl (Hydralazine Hcl 25 Mg Tab) 25 mg PO TID [facility] Stop: 08/27/21 08:59 Last Admin: 07/28/21 14:28 Dose: 25 mg Documented by: Hydralazine HCl (Hydralazine Hcl 20 Mg/Ml Vial) 7.5 mg IV Q6H PRN PRN Reason: Hypertension Stop: 08/27/21 06:34 Sodium Chloride (Nss 1000ml) 1,000 mls @ 50 mls/hr IV .Q20H [facility] Stop: 07/29/21 00:59 Last Infusion: 07/28/21 09:10 Dose: 0 mls/hr Documented by: Insulin Aspart (Insulin Aspart Per Unit) 0 units SC ACHS [facility] Stop: 08/27/21 07:29 Last Admin: 07/28/21 11:55 Dose: Not Given Documented by: Labetalol HCl (Labetalol Hcl 100 Mg Tab) 100 mg PO BID [facility] Stop: 08/27/21 08:59 Last Admin: 07/28/21 08:00 Dose: 100 mg Documented by: Lidocaine (Lidocaine 5% 1 Patch) 1 patch TD QAM [facility] Stop: 08/27/21 08:59 Last Admin: 07/28/21 08:04 Dose: 1 patch Documented by: Lisinopril (Lisinopril 40 Mg Tab) 40 mg PO DAILY [facility] Stop: 08/27/21 08:59 Last Admin: 07/28/21 08:00 Dose: 40 mg Documented by: Miscellaneous (Remove Lidoderm Patch) 1 ea N/A DAILY@2100 [facility] Stop: 08/27/21 20:59 Miscellaneous (Carbohydrates For Hypoglycemia ) 15 - 30 gm PO UD PRN PRN Reason: Hypoglycemia Treatment Stop: 08/27/21 02:44 Montelukast Sodium (Montelukast Sodium 10 Mg Tablet) 10 mg PO HS [facility] Stop: 08/27/21 20:59 Morphine Sulfate (Morphine Sulfate 4 Mg/Ml 1 Ml Carp\\Vial) 3 mg IV Q4H PRN PRN Reason: Pain Stop: 08/11/21 02:38 Nitroglycerin (Nitroglycerin Sl 0.4 Mg/Tab Tab) 0.4 mg SL UD PRN PRN Reason: Chest Pain Stop: 08/27/21 02:25 Ondansetron HCl (Ondansetron Inj 2 Mg/Ml 2 Ml Vial) 4 mg IV Q6H PRN PRN Reason: Nausea Stop: 08/27/21 02:25 Pantoprazole Sodium (Pantoprazole 40 Mg Tab) 40 mg PO DAILY [facility] Stop: 08/27/21 08:59 Last Admin: 07/28/21 08:00 Dose: 40 mg Documented by: Polyethylene Glycol (Polyethylene (Miralax) 17 Gm Pack) 17 gm PO DAILY PRN PRN Reason: Constipation Stop: 08/27/21 02:25 Sertraline HCl (Sertraline Hcl 100 Mg Tablet) 100 mg PO DAILY [facility] Stop: 08/27/21 08:59 Last Admin: 07/28/21 08:00 Dose: 100 mg Documented by: Tamsulosin HCl (Tamsulosin Hcl 0.4 Mg Cap) 0.8 mg PO DAILY [facility] Stop: 08/27/21 08:59 Last Admin: 07/28/21 08:00 Dose: 0.8 mg Documented by: Umeclidinium/Vilanterol (Umeclidinium/Vilanterol 62.5/25mcg 7 Puffs/Inhaler) 1 puffs INH DAILY [facility] Stop: 08/27/21 08:59 Last Admin: 07/28/21 07:59 Dose: 1 puffs Documented by:
--- NOTE | 2021-07-28 15:25 | Electrocardiogram Report ---
Test Reason : Blood Pressure : / mmHG Vent. Rate : 074 BPM Atrial Rate : 074 BPM P-R Int : 190 ms QRS Dur : 146 ms QT Int : 458 ms P-R-T Axes : 043 -58 -17 degrees QTc Int : 508 ms Poor data quality, interpretation may be adversely affected Sinus rhythm with frequent Premature atrial complexes Right bundle branch block Left anterior fascicular block Bifascicular block Minimal voltage criteria for LVH, may be normal variant Septal infarct (cited on or before 21-JUL-2021) Abnormal ECG When compared with ECG of 21-JUL-2021 19:02, No significant change Confirmed by Tio Chua ([id number]) on 07/28/2021 3:25:28 PM Referred By: REFERRED SELF Confirmed By:Tio Chua
[2021-07-28] MEDS ORDERED: OPTIRAY 320 125ml IV ONE (19:19)
--- NOTE | 2021-07-28 20:21 | CT Scan Report ---
ABDOMEN AND PELVIS CT WITH IV AND ORAL CONTRAST CT DOSE: 1955.96 mGy.cm HISTORY: Acute nausea with generalized abdominal pain. History of rectal carcinoma nausea, abdominal pain, known rectal cancer TECHNIQUE: Multiaxial CT images of the abdomen and pelvis were performed following the IV administrat ion of 120 cc of Optiray and oral contrast. A dose lowering technique was utilized adhering to the p rinciples of PAULA. COMPARISON STUDY: CT abdomen and pelvis 07/08/2021 FINDINGS: Moderate cardiomegaly. Mild bibasilar atelectasis. Mildly motion degraded exam. No pneumato sis or pneumoperitoneum. The spleen measures within the upper limits of normal in size. Scattered linda cifications are seen throughout the pancreas suggestive of chronic pancreatitis. The adrenal glands, gallbladder and liver appear unremarkable. lobulations of the kidneys. There are a few cysts of the left kidney measuring up to 2.7 cm. 10 mm nonobstructing calculus of the inferior pole left kidn ey. No ureteral calculi or hydronephrosis. 4 mm calculus of the superior pole left kidney. Prostamega ly. Partially decompressed urinary bladder. Atherosclerosis of the aorta without aneurysm. No adenopa thy. There is no bowel obstruction. Again noted is a focal area of irregular wall thickening and enhanceme nt involving the left lateral and posterior rectum measuring up to approximately 3 cm per the caudal extent is approximately 7.5 cm from the anal verge. This was better seen on the comparison study. No perirectal adenopathy or inflammatory stranding. Mild fecal retention. Normal appendix. Mild colonic diverticulosis. No ascites or mesenteric inflammation. Unremarkable soft tissues. Degenerative change s of the spine, pelvis and hips. Unchanged sclerotic focus of the right pubic bone, favored to be herbie ign. Unchanged 4.5 cm fatty attenuating focus of the left gluteal tissues on image 357. IMPRESSION: 1. Asymmetric wall thickening within the rectum suspicious for a mucosal lesion measuring up to appro ximately 3 cm is redemonstrated. 2. No bowel obstruction or pneumoperitoneum. 3. No lymphadenopathy. 4. Nonobstructing left nephrolithiasis. 5. Prostamegaly. 6. Additional findings as above. ACT 112: Negative or not required by law. The above report was generated using voice recognition software. It may contain grammatical, syntax o r spelling errors. Electronically signed by: Jonathon Oswald M.D. 07/28/2021 8:20 PM
[2021-07-28] MEDS: ATORVASTATIN 40 MG TAB PO SCH (21:44)
[2021-07-28] MEDS: MONTELUKAST SODIUM 10 MG TABLET PO SCH (21:45)
[2021-07-29] MEDS: HEPARIN SOD 5,000 UNIT/0.5 ML VIAL SQ SCH (06:07)
[2021-07-29] MEDS: INSULIN ASPART PER UNIT SC SCH ×4 (09:05→21:06)
[2021-07-29] MEDS: UMECLIDINIUM/VILANTEROL 62.5/25MCG 7 PUFFS/INHALER INH SCH (09:09)
[2021-07-29] MEDS: LIDOCAINE 5% 1 PATCH TD SCH (09:10)
[2021-07-29] MEDS: LABETALOL HCL 100 MG TAB PO SCH ×2 (09:11→21:08)
[2021-07-29] MEDS: DULoxetine HCL 60 MG CAP PO SCH (09:11)
[2021-07-29] MEDS: GABAPENTIN 400 MG CAP PO SCH ×3 (09:11→21:08)
[2021-07-29] MEDS: FERROUS SULFATE 325 MG TAB PO SCH ×2 (09:12→17:38)
[2021-07-29] MEDS: TAMSULOSIN HCL 0.4 MG CAP PO SCH (09:12)
[2021-07-29] MEDS: SERTRALINE HCL 100 MG TABLET PO SCH (09:12)
[2021-07-29] MEDS: PANTOprazole 40 MG TAB PO SCH (09:12)
[2021-07-29] MEDS: hydrALAZINE HCL 25 MG TAB PO SCH ×3 (09:12→21:07)
[2021-07-29] MEDS: allopurinoL 300 MG TAB PO SCH (09:12)
[2021-07-29] MEDS: lisinopril 40 MG TAB PO SCH (09:13)
[2021-07-29] MEDS: DICLOFENAC SOD 1% GEL 100 GM TUBE EXT SCH ×2 (09:13→22:16)
[2021-07-29] MEDS: amLODIPine BESYLATE 5 MG TAB PO SCH (09:13)
--- NOTE | 2021-07-29 12:05 | Hospitalist Progress Note ---
Date of Service July 29, 2021 Assessment & Plan Plan: Nausea -CT A/P with contrast shows thickening rectum, no bowel obstruction -PRN zofran Recent diagnosis of rectal cancer -Patient exhibits poor understanding of disease process -ongoing counseling to encourage compliance with follow up appointments HTN -continue home medications with hold parameters COPD Likely Obesity hypoventilation syndrome FRANCIS -arranged for home Oxygen at last visit. He is on 2L NC PRN with exertion -CPAP Disposition -From home. Will ask for PT evaluation. Patient now agreeable for rehab or SNF. Patient is currently medically stable for discharge DVT ppx dc SQ Heparin, start SQ lovenox Admission and Anticipated Discharge Date Admission Date: July 27, 2021 Subjective No specific complaints today Now agreeable for inpatient rehab Continues to ask about his rectal cancer "Is it bad?" "What's going to happen?" "How long do I have?" Again, I have instructed patient that he needs follow up with colorectal surgery to discuss these questions and that we do not have colorectal surgery here. I reviewed the results of his CT A/P with him today Physical Exam Physical Exam: Laying in bed comfortably but upon my walking into the room, he began to exhibit "jerking movements" of his limbs Disheveled, poor historian, no acute distress Neck: thick Respiratory: breathing comfortably on room air, no wheezing/rhonchi/rales Cardiovascular: regular rate and rhythm, no murmurs/rubs/gallops Gastrointestinal (Abdomen): soft, non tender, non distended Musculoskeletal: no edema Neurologic: awake, alert, spontaneously moving extremities Psychiatric: exhibits poor insight, speech is circumferential, non pressured Results & Data Results & Data ([facility]) Vital Signs (Past 12 Hours) Vital Signs Temp Pulse Pulse Resp BP BP Pulse Ox 07/29/21 11:04 36.5 C 58 L 20 119/72 94 07/29/21 08:06 36.5 C 50 L 20 136/62 93 07/29/21 07:14 48 L 07/29/21 03:50 36.7 C 53 L 20 134/75 93 Medications Administered Current Inpatient Medications Acetaminophen (Acetaminophen 325 Mg Tab) 650 mg PO Q4H PRN PRN Reason: Pain or Fever Stop: 08/27/21 02:25 Albuterol (Albuterol Hfa 8 Gm Inhaler) 2 puffs INH QID PRN PRN Reason: Shortness Of Breath Stop: 08/27/21 02:25 Allopurinol (Allopurinol 300 Mg Tab) 300 mg PO DAILY [facility] Stop: 08/27/21 08:59 Last Admin: 07/29/21 09:12 Dose: 300 mg Documented by: Amlodipine Besylate (Amlodipine Besylate 5 Mg Tab) 10 mg PO DAILY [facility] Stop: 08/27/21 08:59 Last Admin: 07/29/21 09:13 Dose: 10 mg Documented by: Atorvastatin Calcium (Atorvastatin 40 Mg Tab) 40 mg PO HS [facility] Stop: 08/27/21 20:59 Last Admin: 07/28/21 21:44 Dose: 40 mg Documented by: Bumetanide (Bumetanide 1 Mg Tab) 1 mg PO DAILY PRN PRN Reason: Edema Stop: 08/27/21 02:25 Dextrose (Dextrose 50% 50 Ml Syringe) 25 - 50 ml IV UD PRN; Protocol PRN Reason: Hypoglycemia Protocol Stop: 08/27/21 02:44 Diclofenac Sodium (Diclofenac Sod 1% Gel 100 Gm Tube) 4 gm EXT BID [facility] Stop: 08/27/21 08:59 Last Admin: 07/29/21 09:13 Dose: 4 gm Documented by: Docusate Sodium (Docusate Sodium 100 Mg Cap) 100 mg PO BID PRN PRN Reason: Constipation Stop: 08/27/21 02:25 Duloxetine HCl (Duloxetine Hcl 60 Mg Cap) 60 mg PO DAILY [facility] Stop: 08/27/21 08:59 Last Admin: 07/29/21 09:11 Dose: 60 mg Documented by: Ferrous Sulfate (Ferrous Sulfate 325 Mg Tab) 325 mg PO BIDM [facility] Stop: 08/27/21 07:59 Last Admin: 07/29/21 09:12 Dose: 325 mg Documented by: Gabapentin (Gabapentin 400 Mg Cap) 400 mg PO TID [facility] Stop: 08/27/21 08:59 Last Admin: 07/29/21 09:11 Dose: 400 mg Documented by: Glucagon (Glucagon For Inj 1 Mg Vial) 1 mg IM UD PRN; Protocol PRN Reason: Hypoglycemia Protocol Stop: 08/27/21 02:44 Glucose (Glucose 40% Gel 15 Gm Tube) 15 - 30 gm PO UD PRN; Protocol PRN Reason: Hypoglycemia Protocol Stop: 08/27/21 02:44 Glucose (Glucose 10 Tabs/Tube) 4 - 8 tabs PO UD PRN; Protocol PRN Reason: Hypoglycemia Protocol Stop: 08/27/21 02:44 Heparin Sodium (Porcine) (Heparin Sod 5,000 Unit/0.5 Ml Vial) 7,500 units SQ Q8 [facility] Stop: 08/27/21 05:59 Last Admin: 07/29/21 06:07 Dose: 7,500 units Documented by: Hydralazine HCl (Hydralazine Hcl 25 Mg Tab) 25 mg PO TID [facility] Stop: 08/27/21 08:59 Last Admin: 07/29/21 09:12 Dose: 25 mg Documented by: Hydralazine HCl (Hydralazine Hcl 20 Mg/Ml Vial) 7.5 mg IV Q6H PRN PRN Reason: Hypertension Stop: 08/27/21 06:34 Insulin Aspart (Insulin Aspart Per Unit) 0 units SC ACHS [facility] Stop: 08/27/21 07:29 Last Admin: 07/29/21 09:05 Dose: Not Given Documented by: Labetalol HCl (Labetalol Hcl 100 Mg Tab) 100 mg PO BID [facility] Stop: 08/27/21 08:59 Last Admin: 07/29/21 09:11 Dose: 100 mg Documented by: Lidocaine (Lidocaine 5% 1 Patch) 1 patch TD QAM [facility] Stop: 08/27/21 08:59 Last Admin: 07/29/21 09:10 Dose: 1 patch Documented by: Lisinopril (Lisinopril 40 Mg Tab) 40 mg PO DAILY [facility] Stop: 08/27/21 08:59 Last Admin: 07/29/21 09:13 Dose: 40 mg Documented by: Miscellaneous (Remove Lidoderm Patch) 1 ea N/A DAILY@2100 [facility] Stop: 08/27/21 20:59 Last Admin: 07/28/21 21:45 Dose: 1 ea Documented by: Miscellaneous (Carbohydrates For Hypoglycemia ) 15 - 30 gm PO UD PRN PRN Reason: Hypoglycemia Treatment Stop: 08/27/21 02:44 Montelukast Sodium (Montelukast Sodium 10 Mg Tablet) 10 mg PO HS [facility] Stop: 08/27/21 20:59 Last Admin: 07/28/21 21:45 Dose: 10 mg Documented by: Morphine Sulfate (Morphine Sulfate 4 Mg/Ml 1 Ml Carp\\Vial) 3 mg IV Q4H PRN PRN Reason: Pain Stop: 08/11/21 02:38 Nitroglycerin (Nitroglycerin Sl 0.4 Mg/Tab Tab) 0.4 mg SL UD PRN PRN Reason: Chest Pain Stop: 08/27/21 02:25 Ondansetron HCl (Ondansetron Inj 2 Mg/Ml 2 Ml Vial) 4 mg IV Q6H PRN PRN Reason: Nausea Stop: 08/27/21 02:25 Pantoprazole Sodium (Pantoprazole 40 Mg Tab) 40 mg PO DAILY [facility] Stop: 08/27/21 08:59 Last Admin: 07/29/21 09:12 Dose: 40 mg Documented by: Polyethylene Glycol (Polyethylene (Miralax) 17 Gm Pack) 17 gm PO DAILY PRN PRN Reason: Constipation Stop: 08/27/21 02:25 Sertraline HCl (Sertraline Hcl 100 Mg Tablet) 100 mg PO DAILY [facility] Stop: 08/27/21 08:59 Last Admin: 07/29/21 09:12 Dose: 100 mg Documented by: Tamsulosin HCl (Tamsulosin Hcl 0.4 Mg Cap) 0.8 mg PO DAILY [facility] Stop: 08/27/21 08:59 Last Admin: 07/29/21 09:12 Dose: 0.8 mg Documented by: Umeclidinium/Vilanterol (Umeclidinium/Vilanterol 62.5/25mcg 7 Puffs/Inhaler) 1 puffs INH DAILY [facility] Stop: 08/27/21 08:59 Last Admin: 07/29/21 09:09 Dose: 1 puffs Documented by:
[2021-07-29] MEDS: MONTELUKAST SODIUM 10 MG TABLET PO SCH (21:09)
[2021-07-29] MEDS: ATORVASTATIN 40 MG TAB PO SCH (21:12)
[2021-07-30] MEDS ORDERED: ENOXAPARIN INJ 40 MG/0.4 ML SYR SQ SCH (09:00)
[2021-07-30] MEDS: amLODIPine BESYLATE 5 MG TAB PO SCH (09:11)
[2021-07-30] MEDS: GABAPENTIN 400 MG CAP PO SCH ×3 (09:12→20:21)
[2021-07-30] MEDS: DULoxetine HCL 60 MG CAP PO SCH (09:12)
[2021-07-30] MEDS: PANTOprazole 40 MG TAB PO SCH (09:12)
[2021-07-30] MEDS: LABETALOL HCL 100 MG TAB PO SCH ×2 (09:12→20:21)
[2021-07-30] MEDS: allopurinoL 300 MG TAB PO SCH (09:12)
[2021-07-30] MEDS: SERTRALINE HCL 100 MG TABLET PO SCH (09:12)
[2021-07-30] MEDS: UMECLIDINIUM/VILANTEROL 62.5/25MCG 7 PUFFS/INHALER INH SCH (09:13)
[2021-07-30] MEDS: TAMSULOSIN HCL 0.4 MG CAP PO SCH (09:13)
[2021-07-30] MEDS: FERROUS SULFATE 325 MG TAB PO SCH ×2 (09:13→17:27)
[2021-07-30] MEDS: lisinopril 40 MG TAB PO SCH (09:14)
[2021-07-30] MEDS: hydrALAZINE HCL 25 MG TAB PO SCH ×3 (09:14→20:21)
[2021-07-30] MEDS: LIDOCAINE 5% 1 PATCH TD SCH (09:15)
[2021-07-30] MEDS: DICLOFENAC SOD 1% GEL 100 GM TUBE EXT SCH ×2 (09:15→20:06)
[2021-07-30] MEDS: INSULIN ASPART PER UNIT SC SCH ×4 (09:18→20:28)
--- NOTE | 2021-07-30 10:58 | Electrocardiogram Report ---
Test Reason : Blood Pressure : / mmHG Vent. Rate : 067 BPM Atrial Rate : 067 BPM P-R Int : 168 ms QRS Dur : 150 ms QT Int : 480 ms P-R-T Axes : 047 -62 004 degrees QTc Int : 507 ms Sinus rhythm with a PAC Right bundle branch block Left anterior fascicular block Bifascicular block Abnormal ECG When compared with ECG of 27-JUL-2021 19:54, Criteria for Septal infarct are no longer Present Confirmed by Dhruv Chowdary ([id number]) on 07/30/2021 10:58:13 AM Referred By: REFERRED SELF Confirmed By:Dhruv Chowdary
--- NOTE | 2021-07-30 16:35 | Hospitalist Progress Note ---
Date of Service July 30, 2021 Assessment & Plan Plan: Nausea -CT A/P with contrast shows thickening rectum, no bowel obstruction -PRN zofran Recent diagnosis of rectal cancer -Patient exhibits poor understanding of disease process -ongoing counseling to encourage compliance with follow up appointments. Needs outpatient follow up with colorectal surgery -appreciate GI input HTN -continue home medications with hold parameters COPD Likely Obesity hypoventilation syndrome FRANCIS -arranged for home Oxygen at last visit. He is on 2L NC PRN with exertion -CPAP Disposition -From home. Will ask for PT evaluation. Patient now agreeable for rehab or SNF. Patient is currently medically stable for discharge DVT ppx SQ lovenox Admission and Anticipated Discharge Date Admission Date: July 27, 2021 Subjective Reports "aches and pains all over, I've been hard on my body" Reports "my stomach feels off today" Tolerated diet BM yesterday Physical Exam Physical Exam: disheveled, obese, no acute distress Respiratory: breathing comfortably on room air, no wheezing/rhonchi Cardiovascular: regular rate and rhythm, no murmurs/rubs/gallops Gastrointestinal (Abdomen): soft, non tender Musculoskeletal: no edema Results & Data Results & Data ([facility]) Vital Signs (Past 12 Hours) Vital Signs Temp Pulse Pulse Resp BP Pulse Ox 07/30/21 15:52 62 07/30/21 13:01 84 104/61 07/30/21 12:02 36.4 C L 56 L 18 147/74 H 94 07/30/21 07:56 36.3 C L 78 18 144/78 H 93 07/30/21 07:34 73 Medications Administered Current Inpatient Medications Acetaminophen (Acetaminophen 325 Mg Tab) 650 mg PO Q4H PRN PRN Reason: Pain or Fever Stop: 08/27/21 02:25 Albuterol (Albuterol Hfa 8 Gm Inhaler) 2 puffs INH QID PRN PRN Reason: Shortness Of Breath Stop: 08/27/21 02:25 Allopurinol (Allopurinol 300 Mg Tab) 300 mg PO DAILY [facility] Stop: 08/27/21 08:59 Last Admin: 07/30/21 09:12 Dose: 300 mg Documented by: Amlodipine Besylate (Amlodipine Besylate 5 Mg Tab) 10 mg PO DAILY [facility] Stop: 08/27/21 08:59 Last Admin: 07/30/21 09:11 Dose: 10 mg Documented by: Atorvastatin Calcium (Atorvastatin 40 Mg Tab) 40 mg PO HS [facility] Stop: 08/27/21 20:59 Last Admin: 07/29/21 21:12 Dose: 40 mg Documented by: Bumetanide (Bumetanide 1 Mg Tab) 1 mg PO DAILY PRN PRN Reason: Edema Stop: 08/27/21 02:25 Dextrose (Dextrose 50% 50 Ml Syringe) 25 - 50 ml IV UD PRN; Protocol PRN Reason: Hypoglycemia Protocol Stop: 08/27/21 02:44 Diclofenac Sodium (Diclofenac Sod 1% Gel 100 Gm Tube) 4 gm EXT BID [facility] Stop: 08/27/21 08:59 Last Admin: 07/30/21 09:15 Dose: 4 gm Documented by: Docusate Sodium (Docusate Sodium 100 Mg Cap) 100 mg PO BID PRN PRN Reason: Constipation Stop: 08/27/21 02:25 Duloxetine HCl (Duloxetine Hcl 60 Mg Cap) 60 mg PO DAILY [facility] Stop: 08/27/21 08:59 Last Admin: 07/30/21 09:12 Dose: 60 mg Documented by: Enoxaparin Sodium (Enoxaparin Inj 40 Mg/0.4 Ml Syr) 40 mg SQ QAM [facility] Stop: 08/29/21 08:59 Last Admin: 07/30/21 09:14 Dose: 40 mg Documented by: Ferrous Sulfate (Ferrous Sulfate 325 Mg Tab) 325 mg PO BIDM [facility] Stop: 08/27/21 07:59 Last Admin: 07/30/21 09:13 Dose: 325 mg Documented by: Gabapentin (Gabapentin 400 Mg Cap) 400 mg PO TID [facility] Stop: 08/27/21 08:59 Last Admin: 07/30/21 12:58 Dose: 400 mg Documented by: Glucagon (Glucagon For Inj 1 Mg Vial) 1 mg IM UD PRN; Protocol PRN Reason: Hypoglycemia Protocol Stop: 08/27/21 02:44 Glucose (Glucose 40% Gel 15 Gm Tube) 15 - 30 gm PO UD PRN; Protocol PRN Reason: Hypoglycemia Protocol Stop: 08/27/21 02:44 Glucose (Glucose 10 Tabs/Tube) 4 - 8 tabs PO UD PRN; Protocol PRN Reason: Hypoglycemia Protocol Stop: 08/27/21 02:44 Hydralazine HCl (Hydralazine Hcl 25 Mg Tab) 25 mg PO TID [facility] Stop: 08/27/21 08:59 Last Admin: 07/30/21 12:58 Dose: 25 mg Documented by: Insulin Aspart (Insulin Aspart Per Unit) 0 units SC ACHS [facility] Stop: 08/27/21 07:29 Last Admin: 07/30/21 12:51 Dose: 9 units Documented by: Labetalol HCl (Labetalol Hcl 100 Mg Tab) 100 mg PO BID [facility] Stop: 08/27/21 08:59 Last Admin: 07/30/21 09:12 Dose: 100 mg Documented by: Lidocaine (Lidocaine 5% 1 Patch) 1 patch TD QAM [facility] Stop: 08/27/21 08:59 Last Admin: 07/30/21 09:15 Dose: 1 patch Documented by: Lisinopril (Lisinopril 40 Mg Tab) 40 mg PO DAILY [facility] Stop: 08/27/21 08:59 Last Admin: 07/30/21 09:14 Dose: 40 mg Documented by: Miscellaneous (Remove Lidoderm Patch) 1 ea N/A DAILY@2100 [facility] Stop: 08/27/21 20:59 Last Admin: 07/29/21 21:07 Dose: 1 ea Documented by: Miscellaneous (Carbohydrates For Hypoglycemia ) 15 - 30 gm PO UD PRN PRN Reason: Hypoglycemia Treatment Stop: 08/27/21 02:44 Montelukast Sodium (Montelukast Sodium 10 Mg Tablet) 10 mg PO HS [facility] Stop: 08/27/21 20:59 Last Admin: 07/29/21 21:09 Dose: 10 mg Documented by: Nitroglycerin (Nitroglycerin Sl 0.4 Mg/Tab Tab) 0.4 mg SL UD PRN PRN Reason: Chest Pain Stop: 08/27/21 02:25 Ondansetron HCl (Ondansetron Inj 2 Mg/Ml 2 Ml Vial) 4 mg IV Q6H PRN PRN Reason: Nausea Stop: 08/27/21 02:25 Pantoprazole Sodium (Pantoprazole 40 Mg Tab) 40 mg PO DAILY [facility] Stop: 08/27/21 08:59 Last Admin: 07/30/21 09:12 Dose: 40 mg Documented by: Polyethylene Glycol (Polyethylene (Miralax) 17 Gm Pack) 17 gm PO DAILY PRN PRN Reason: Constipation Stop: 08/27/21 02:25 Sertraline HCl (Sertraline Hcl 100 Mg Tablet) 100 mg PO DAILY [facility] Stop: 08/27/21 08:59 Last Admin: 07/30/21 09:12 Dose: 100 mg Documented by: Tamsulosin HCl (Tamsulosin Hcl 0.4 Mg Cap) 0.8 mg PO DAILY [facility] Stop: 08/27/21 08:59 Last Admin: 07/30/21 09:13 Dose: 0.8 mg Documented by: Umeclidinium/Vilanterol (Umeclidinium/Vilanterol 62.5/25mcg 7 Puffs/Inhaler) 1 puffs INH DAILY [facility] Stop: 08/27/21 08:59 Last Admin: 07/30/21 09:13 Dose: 1 puffs Documented by:
[2021-07-30] MEDS: ATORVASTATIN 40 MG TAB PO SCH (20:21)
[2021-07-30] MEDS: MONTELUKAST SODIUM 10 MG TABLET PO SCH (20:22)
[2021-07-30] MEDS: ACETAMINOPHEN 325 MG TAB PO PRN (21:45)
[2021-07-31 06:59] LABS: Hematocrit (blood only) 31.5 % (42-52); Hemoglobin 9.8 g/dL (14.0-18.0); Mean Corpuscular Hgb Conc 31.1 g/dL (32-36); Mean Corpuscular Volume 83.6 fL (80-100); Mean Platelet Volume 9.6 fL (7.4-10.4); Platelet Count 206 K/uL (130-400); RDW Coefficient of Variation 16.7 % (11.5-14.5); RDW Standard Deviation 51.4 fL (36.4-46.3); Red Blood Count 3.77 M/uL (4.7-6.1); White Blood Count 6.79 K/uL (4.8-10.8)
[2021-07-31 07:24] LABS: BUN Creatinine Ratio 21.5 (10-20); Calcium 8.6 mg/dl (8.5-10.1); Creatinine Clr Calc Pharmacy 70.2 ml/min; Est GFR (African American) 50.8 ml/min; Est GFR (Non-African American) 43.9 ml/min; Potassium 3.9 mmol/L (3.5-5.1)
[2021-07-31] MEDS: allopurinoL 300 MG TAB PO SCH (09:57)
[2021-07-31] MEDS: LABETALOL HCL 100 MG TAB PO SCH ×2 (09:57→21:49)
[2021-07-31] MEDS: DULoxetine HCL 60 MG CAP PO SCH (09:57)
[2021-07-31] MEDS: TAMSULOSIN HCL 0.4 MG CAP PO SCH (09:57)
[2021-07-31] MEDS: PANTOprazole 40 MG TAB PO SCH (09:57)
[2021-07-31] MEDS: GABAPENTIN 400 MG CAP PO SCH ×3 (09:57→21:48)
[2021-07-31] MEDS: amLODIPine BESYLATE 5 MG TAB PO SCH (09:57)
[2021-07-31] MEDS: lisinopril 40 MG TAB PO SCH (09:57)
[2021-07-31] MEDS: SERTRALINE HCL 100 MG TABLET PO SCH (09:57)
[2021-07-31] MEDS: hydrALAZINE HCL 25 MG TAB PO SCH ×3 (09:58→21:48)
[2021-07-31] MEDS: HEPARIN SOD 5,000 UNIT/0.5 ML VIAL SQ SCH ×2 (09:58→21:48)
[2021-07-31] MEDS: LIDOCAINE 5% 1 PATCH TD SCH (09:59)
[2021-07-31] MEDS: DICLOFENAC SOD 1% GEL 100 GM TUBE EXT SCH ×2 (10:00→21:49)
[2021-07-31] MEDS: UMECLIDINIUM/VILANTEROL 62.5/25MCG 7 PUFFS/INHALER INH SCH (10:00)
[2021-07-31] MEDS: FERROUS SULFATE 325 MG TAB PO SCH ×2 (10:01→17:15)
[2021-07-31] MEDS: INSULIN ASPART PER UNIT SC SCH ×4 (10:12→20:57)
[2021-07-31] MEDS: ACETAMINOPHEN 325 MG TAB PO PRN ×2 (10:13→17:23)
--- NOTE | 2021-07-31 20:13 | Hospitalist Progress Note ---
Date of Service July 31, 2021 Assessment & Plan (1) JARROD (acute kidney injury): Plan: Nausea -CT A/P with contrast shows thickening rectum, no bowel obstruction -PRN zofran JARROD Likely prerenal, patient not drinking enough fluids per RN Creatinine elevated to 1.63, baseline around 1 Follow-up BMP, continue to monitor. Recent diagnosis of rectal cancer -Patient exhibits poor understanding of disease process, educated patient again today. -ongoing counseling to encourage compliance with follow up appointments. Needs outpatient follow up with colorectal surgery -appreciate GI input HTN -continue home medications with hold parameters COPD Likely Obesity hypoventilation syndrome FRANCIS -arranged for home Oxygen at last visit. He is on 2L NC PRN with exertion -CPAP Disposition -From home. PT/OT. Patient now agreeable for rehab or SNF. Pending improvement in JARROD. DVT ppx SQ Heparin Admission and Anticipated Discharge Date Admission Date: July 27, 2021 Subjective Patient seen and examined at the bedside. Patient on room air, NAD, no new acute events overnight. Patient reports having loose bowel movement in the morning. Per RN patient is not drinking enough fluids but is drinking Coke. Patient reports eating okay. Patient denies any fever/chills/chest pain/palpitations/belly pain/other review of symptoms. Physical Exam Physical Exam: GENERAL: Alert and oriented x3. NAD, on RA. HEENT: No pallor, no icterus. Pupils equal, round and reactive to light. Oral mucosa moist. NECK: No JVD, no neck masses. HEART: S1 and S2 heard. Regular rate and rhythm. No murmur, no gallop. RESPIRATORY SYSTEM: Normal AP diameter. No accessory muscle use. No wheezing, no crackles. ABDOMEN: Soft, bowel sounds present, nontender, no distention. CENTRAL NERVOUS SYSTEM: No facial droop. Speech is clear. Obeys simple commands. Moves extremities. EXTREMITIES: Trace BLE edema, no erythema seen. Results & Data Results & Data ([facility]) Vital Signs (Past 12 Hours) Vital Signs Temp Pulse Pulse Resp BP Pulse Ox 07/31/21 16:00 61 07/31/21 14:39 36.5 C 68 20 158/73 H 94 07/31/21 11:00 36.4 C L 72 20 194/74 H 90 07/31/21 10:13 71
[2021-07-31] MEDS: MONTELUKAST SODIUM 10 MG TABLET PO SCH (21:48)
[2021-07-31] MEDS: ATORVASTATIN 40 MG TAB PO SCH (21:49)
[2021-08-01 08:13] LABS: Hematocrit (blood only) 32.2 % (42-52); Hemoglobin 10.2 g/dL (14.0-18.0); Mean Corpuscular Hemoglobin 26.4 pg (25-34); Mean Corpuscular Hgb Conc 31.7 g/dL (32-36); Mean Corpuscular Volume 83.4 fL (80-100); Mean Platelet Volume 9.8 fL (7.4-10.4); Platelet Count 191 K/uL (130-400); RDW Standard Deviation 51.2 fL (36.4-46.3); Red Blood Count 3.86 M/uL (4.7-6.1); White Blood Count 6.59 K/uL (4.8-10.8)
[2021-08-01 08:36] LABS: BUN Creatinine Ratio 22.7 (10-20); Creatinine Clr Calc Pharmacy 80.7 ml/min; Est GFR (African American) 60.6 ml/min; Est GFR (Non-African American) 52.3 ml/min; Magnesium 1.9 mg/dl (1.7-2.4); Phosphorus 3.4 mg/dl (2.5-4.9)
[2021-08-01] MEDS: INSULIN ASPART PER UNIT SC SCH ×4 (09:25→21:00)
[2021-08-01] MEDS: HEPARIN SOD 5,000 UNIT/0.5 ML VIAL SQ SCH ×2 (09:26→20:57)
[2021-08-01] MEDS: TAMSULOSIN HCL 0.4 MG CAP PO SCH (09:27)
[2021-08-01] MEDS: DULoxetine HCL 60 MG CAP PO SCH (09:27)
[2021-08-01] MEDS: GABAPENTIN 400 MG CAP PO SCH ×3 (09:27→20:57)
[2021-08-01] MEDS: lisinopril 40 MG TAB PO SCH (09:27)
[2021-08-01] MEDS: PANTOprazole 40 MG TAB PO SCH (09:27)
[2021-08-01] MEDS: amLODIPine BESYLATE 5 MG TAB PO SCH (09:27)
[2021-08-01] MEDS: SERTRALINE HCL 100 MG TABLET PO SCH (09:28)
[2021-08-01] MEDS: DICLOFENAC SOD 1% GEL 100 GM TUBE EXT SCH ×2 (09:28→20:57)
[2021-08-01] MEDS: UMECLIDINIUM/VILANTEROL 62.5/25MCG 7 PUFFS/INHALER INH SCH (09:28)
[2021-08-01] MEDS: hydrALAZINE HCL 25 MG TAB PO SCH ×3 (09:29→20:57)
[2021-08-01] MEDS: allopurinoL 300 MG TAB PO SCH (09:29)
[2021-08-01] MEDS: FERROUS SULFATE 325 MG TAB PO SCH ×2 (09:30→17:36)
[2021-08-01] MEDS: LIDOCAINE 5% 1 PATCH TD SCH ×2 (09:39→15:11)
[2021-08-01] MEDS: LABETALOL HCL 100 MG TAB PO SCH ×2 (09:52→20:57)
[2021-08-01] MEDS: NYSTATIN POWDER 15GM BTL EXT SCH ×2 (12:46→20:58)
--- NOTE | 2021-08-01 17:47 | Hospitalist Progress Note ---
Date of Service August 01, 2021 Assessment & Plan (1) JARROD (acute kidney injury): Plan: Nausea -CT A/P with contrast shows thickening rectum, no bowel obstruction -PRN zofran JARROD Likely prerenal, patient not drinking enough fluids per RN Creatinine elevated to 1.63, baseline around 1 --> improving Follow-up BMP, continue to monitor. Recent diagnosis of rectal cancer -Patient exhibits poor understanding of disease process, educated patient multiple times -ongoing counseling to encourage compliance with follow up appointments. Needs outpatient follow up with colorectal surgery -appreciate GI input HTN -continue home medications with hold parameters COPD Likely Obesity hypoventilation syndrome FRANCIS -arranged for home Oxygen at last visit. He is on 2L NC PRN with exertion -CPAP Disposition -From home. PT/OT. Patient now agreeable for rehab or SNF. DVT ppx SQ Heparin Admission and Anticipated Discharge Date Admission Date: July 27, 2021 Subjective Patient seen and examined at the bedside as f/u of JARROD and generalized weakness. Patient on room air, NAD, no new acute events overnight. Patient reports having loose bowel movement yesterday, none today. Patient reports eating okay. Patient denies any fever/chills/chest pain/palpitations/belly pain/other review of symptoms. Physical Exam Physical Exam: GENERAL: Alert and oriented x3. NAD, on RA. HEENT: No pallor, no icterus. Pupils equal, round and reactive to light. Oral mucosa moist. NECK: No JVD, no neck masses. HEART: S1 and S2 heard. Regular rate and rhythm. No murmur, no gallop. RESPIRATORY SYSTEM: Normal AP diameter. No accessory muscle use. No wheezing, no crackles. ABDOMEN: Soft, bowel sounds present, nontender, no distention. CENTRAL NERVOUS SYSTEM: No facial droop. Speech is clear. Obeys simple commands. Moves extremities. EXTREMITIES: Trace BLE edema, chronic BLE skin changes, no erythema seen. Results & Data Results & Data ([facility]) Vital Signs (Past 12 Hours) Vital Signs Temp Pulse Pulse Resp BP Pulse Ox 08/01/21 15:51 36.5 C 66 18 167/68 H 91 08/01/21 07:59 36.3 C L 60 18 166/77 H 90 08/01/21 07:02 63
[2021-08-01] MEDS: MONTELUKAST SODIUM 10 MG TABLET PO SCH (20:57)
[2021-08-01] MEDS: ATORVASTATIN 40 MG TAB PO SCH (20:57)
[2021-08-02 08:00] LABS: BUN Creatinine Ratio 24.1 (10-20); Calcium 9.6 mg/dl (8.5-10.1); Est GFR (African American) 76.7 ml/min; Est GFR (Non-African American) 66.2 ml/min; Potassium 4.3 mmol/L (3.5-5.1)
[2021-08-02] MEDS: INSULIN ASPART PER UNIT SC SCH ×2 (08:20→12:19)
[2021-08-02] MEDS: UMECLIDINIUM/VILANTEROL 62.5/25MCG 7 PUFFS/INHALER INH SCH (08:22)
[2021-08-02] MEDS: FERROUS SULFATE 325 MG TAB PO SCH (08:23)
[2021-08-02] MEDS: DULoxetine HCL 60 MG CAP PO SCH (08:23)
[2021-08-02] MEDS: allopurinoL 300 MG TAB PO SCH (08:23)
[2021-08-02] MEDS: amLODIPine BESYLATE 5 MG TAB PO SCH (08:23)
[2021-08-02] MEDS: GABAPENTIN 400 MG CAP PO SCH ×2 (08:25→13:58)
[2021-08-02] MEDS: hydrALAZINE HCL 25 MG TAB PO SCH ×2 (08:25→13:58)
[2021-08-02] MEDS: HEPARIN SOD 5,000 UNIT/0.5 ML VIAL SQ SCH (08:25)
[2021-08-02] MEDS: LIDOCAINE 5% 1 PATCH TD SCH (08:26)
[2021-08-02] MEDS: LABETALOL HCL 100 MG TAB PO SCH (08:26)
[2021-08-02] MEDS: PANTOprazole 40 MG TAB PO SCH (08:26)
[2021-08-02] MEDS: lisinopril 40 MG TAB PO SCH (08:26)
[2021-08-02] MEDS: SERTRALINE HCL 100 MG TABLET PO SCH (08:27)
[2021-08-02] MEDS: TAMSULOSIN HCL 0.4 MG CAP PO SCH (08:27)
[2021-08-02] MEDS: DICLOFENAC SOD 1% GEL 100 GM TUBE EXT SCH (08:31)
[2021-08-02] MEDS: NYSTATIN POWDER 15GM BTL EXT SCH (08:31)
--- NOTE | 2021-08-02 12:58 | Discharge Summary ---
Date of Service August 02, 2021 Admission HPI Per Admitting Provider CHIEF COMPLAINT: Nausea, abdominal pain. HISTORY OF PRESENT ILLNESS: This is a 66-year-old male with past medical history significant for chronic diastolic heart failure, EF of 60% to 65%, history of CAD as per records, hypertension, hyperlipidemia, COPD, obstructive sleep apnea, CPAP intolerance, diabetes, on oral medication, mood disorder, chronic anemia, baseline hemoglobin around 10, medication noncompliance, history of past tobacco abuse, multiple admissions, was recently in the hospital for hypoxia and discharged, home oxygen was arranged. Last admission, he also had JARROD. His diuretics were changed to p.r.n. He was also found to have colonic mass and pathology was positive for invasive adenocarcinoma, supposed to follow up outpatient, did not follow up. The patient is somewhat Tearful because he was positive for adenocarcinoma. Says he does not want any more bad news. He says he does not know that he has a cancer. The patient lives alone. Says his brother and sister live close by and friends help him. He is walking okay at home and his family and neighbors get him food. He presents because of abdominal pain, nausea, not feeling well. He does not know when he moved his last bowel movement. He does not know if he has blood in the stools. Bladder movements are okay. Appetite is down. Denies any chest pain. He gets short of breath once in a while, cough once in a while. Has some headache now. No blurred visions. Hard of hearing. Has some runny nose. No sore throat. Hemodynamics are stable. ALLERGIES: No known drug allergies. PAST MEDICAL HISTORY: As mentioned above. PAST SURGICAL HISTORY: Colonoscopy, cataract surgery, knee surgery, incision and drainage. MEDICATIONS: The patient is on Tylenol 650 mg p.o. q. 4 hours p.r.n., albuterol 2 puffs inhalation q.i.d. p.r.n., allopurinol 300 mg p.o. daily, Norvasc 10 mg p.o. daily, Anoro Ellipta one inhalation daily, atorvastatin 40 mg p.o. at bedtime, Bumex 1 mg p.o. daily p.r.n., diclofenac sodium 4 g external b.i.d., Colace 100 mg p.o. b.i.d. p.r.n., duloxetine 60 mg p.o. daily, ferrous sulfate 325 mg p.o. b.i.d., gabapentin 400 mg p.o. t.i.d., hydralazine 25 mg p.o. daily, labetalol 100 mg p.o. b.i.d., lidocaine patch transdermal, lisinopril 40 mg p.o. daily, metformin 500 mg p.o. b.i.d. with meals, Singulair 10 mg p.o. at bedtime, Protonix 40 mg p.o. daily, MiraLax 17 g p.o. daily p.r.n., Zoloft 100 mg p.o. daily, Flomax 0.8 mg p.o. daily. FAMILY HISTORY: Significant for throat cancer. SOCIAL HISTORY: Former smoker. Seems to drink beer. REVIEW OF SYSTEMS: As per HPI. Rest of review of systems is negative. Admission Exam Per Admitting Provider GENERAL: The patient is morbidly obese, not in acute distress. VITAL SIGNS: Temperature 36.6, pulse 77, respiratory rate 18, blood pressure 165/97, oxygen 92% on room air. HEENT: Pupils equal, round and reactive to light. Oral mucosa moist. NECK: No JVD, no neck masses. CARDIOVASCULAR: S1 and S2 heard. Regular rate and rhythm. No murmur, no gallop. RESPIRATORY SYSTEM: Normal AP diameter. No accessory muscle use. No wheezing or crackles. ABDOMEN: Soft, bowel sounds present. Mild diffuse tenderness. No guarding, no rigidity. CENTRAL NERVOUS SYSTEM: Cranial nerves II-XII grossly intact, nonfocal. EXTREMITIES: Mild edema, no erythema seen. Principal Diagnosis Likely indigestion JARROD Recent diagnosis of rectal cancer Discharge Exam GENERAL: Alert and oriented x3. NAD, on RA. HEENT: No pallor, no icterus. Pupils equal, round and reactive to light. Oral mucosa moist. NECK: No JVD, no neck masses. HEART: S1 and S2 heard. Regular rate and rhythm. No murmur, no gallop. RESPIRATORY SYSTEM: Normal AP diameter. No accessory muscle use. No wheezing, no crackles. ABDOMEN: Soft, bowel sounds present, nontender, no distention. CENTRAL NERVOUS SYSTEM: No facial droop. Speech is clear. Obeys simple commands. Moves extremities. EXTREMITIES: Trace BLE edema, chronic BLE skin changes, no erythema seen. Discharge Data Allergies Allergy/AdvReac Type Severity Reaction Status Date / Time No Known Allergies Allergy Verified 07/21/21 19:47 Consultations 07/27/21 22:21 ED Decision to Admit Stat 07/28/21 08:00 Consult Gastroenterology Routine Ordered Studies 07/28/21 15:13 CT abd pelvis oral and IV con Routine Hospital Course (1) JARROD (acute kidney injury): Nausea Likely indigestion -CT A/P with contrast shows thickening rectum, no bowel obstruction -famotidine added -Patient reports no further belly discomfort, reports eating and moving bowels okay. -Patient has been educated about his recent diagnosis of rectal cancer multiple times, he needs to follow-up with colorectal surgeon as an outpatient for this diagnosis to be taken care of. JARROD Likely prerenal, patient not drinking enough fluids per RN Creatinine elevated to 1.63, baseline around 1 --> Resolved Recent diagnosis of rectal cancer -Patient exhibits poor understanding of disease process, educated patient multiple times -ongoing counseling to encourage compliance with follow up appointments. Needs outpatient follow up with colorectal surgery -Patient advised to follow-up with outpatient transrectal ultrasound. -appreciate GI input HTN -continue home medications with hold parameters - take your Bumex for your leg swelling as needed on daily basis. COPD Likely Obesity hypoventilation syndrome FRANCIS -arranged for home Oxygen at last visit. He is on 2L NC PRN with exertion -CPAP Disposition -From home. PT/OT. Patient again refusing rehab, HIGH LIKELIHOOD of READMISSION as Patient doesn't seem to understand the complexity of his situation and is not compliant with medications and medical advice. -Patient's primary contact Bernice Mathias was attempted to contact by telephone call prior to patient's discharge, could not even leave voicemail. Patient being discharged to home with following instruction at the point of discharge: Follow-up with your primary care physician within a week time. You have recently diagnosed rectal cancer which needs to be worked up as an outpatient. Follow-up with your scheduled transrectal ultrasound as an outpatient. Establish and follow-up with colorectal surgery as an outpatient as discussed at the bedside. Take your Bumex as needed on daily basis for your leg edema/swelling. Take medications as prescribed. Total Time Total Time Spent Total Time Spent (In Minutes): 40 Discharge Plan Discharge Items Patient Disposition: Home - Self-Care Reason For Visit: ILLNESS Discharge Diagnosis: Likely indigestion JARROD Recent diagnosis of rectal cancer Activity: Resume your previous activity Non-emergency contact: Primary Care Provider Call non-emergency contact if: you have any medication questions, your symptoms worsen and your temperature is above 101 Follow-up/Referrals: Maria Esther Rojo DO [Physician] - 08/04/21 (08/04/2021. Rectal EUS for rectal mass, to be performed at [facility]) Comfort Almanzar PA-C [Primary Care Provider] - 08/08/21 8:30 am (with Torsten Bond ) Diet: Carb Consistent or DM2 Addtl Attending Provider Instructions: Follow-up with your primary care physician within a week time. You have recently diagnosed rectal cancer which needs to be worked up as an outpatient. Follow-up with your scheduled transrectal ultrasound as an outpatient. Establish and follow-up with colorectal surgery as an outpatient as discussed at the bedside. Take your Bumex as needed on daily basis for your leg edema/swelling. Take medications as prescribed. Pending Studies at Discharge: No Stand-Alone Forms: My [facility] App[employer], Smoking Cessation Medications and DC Order Prescriptions: New famotidine 20 mg tablet 20 mg PO HS Qty: 30 RF: 0 Continued polyethylene glycol 3350 [Miralax] 17 gram Powder In Packet 17 g PO DAILY PRN (Reason: Constipation) RF: 0 lisinopril [Zestril] 30 mg tablet 40 mg PO DAILY RF: 0 gabapentin 400 mg Capsule 400 mg PO TID 60 Days Qty: 90 RF: 0 hydralazine 25 mg Tablet 25 mg PO TID Qty: 90 RF: 1 lidocaine 5 % Adhesive Patch,Medicated 1 patch transdermal QAM 14 Days Qty: 14 RF: 0 bumetanide 1 mg tablet 1 mg PO DAILY PRN (Reason: Edema) Qty: 30 RF: 0 (DME) blood-glucose meter [Gluco Navii Glucose Monitor] Kit See Rx Instructions .Route Qty: 1 RF: 0 (DME) Gluco Navii Test Strip Strip See Rx Instructions .Route Qty: 50 RF: 0 (DME) lancets Misc See Rx Instructions .Route Qty: 100 RF: 0 labetalol 100 mg Tablet 100 mg PO BID Qty: 60 RF: 0 diclofenac sodium [Voltaren Arthritis Pain] 1 % Gel 4 g EXT BID Qty: 100 RF: 0 atorvastatin 40 mg Tablet 40 mg PO HS Qty: 30 RF: 0 metformin 500 mg tablet 500 mg PO BIDWMEAL Qty: 60 RF: 0 acetaminophen [Tylenol] 325 mg Tablet 650 mg PO Q4 PRN (Reason: PAIN , SCALE 1-3) Qty: 30 RF: 0 sertraline [Zoloft] 100 mg Tablet 100 mg PO DAILY Qty: 30 RF: 0 amlodipine [Norvasc] 5 mg Tablet 10 mg PO DAILY Qty: 60 RF: 0 tamsulosin [Flomax] 0.4 mg Capsule 0.8 mg PO DAILY Qty: 30 RF: 0 pantoprazole 40 mg tablet,delayed release (DR/EC) 40 mg PO DAILY Qty: 30 RF: 0 docusate sodium [Stool Softener] 100 mg Capsule 100 mg PO BID PRN (Reason: Constipation) Qty: 60 RF: 0 montelukast [Singulair] 10 mg Tablet 10 mg PO HS Qty: 30 RF: 0 albuterol sulfate [Ventolin HFA] 90 mcg/actuation Hfa Aerosol Inhaler 2 puff INHALATION QID PRN (Reason: Shortness Of Breath) Qty: 8.5 RF: 0 ferrous sulfate 325 mg (65 mg iron) Tablet,Delayed Release (Dr/Ec) 325 mg PO BIDM Qty: 14 RF: 0 duloxetine 60 mg Capsule,Delayed Release(Dr/Ec) 60 mg PO DAILY Qty: 30 RF: 0 Anoro Ellipta 62.5-25 mcg/actuation Blister With Device 1 inh INHALATION DAILY Qty: 14 RF: 0 allopurinol 300 mg tablet 300 mg PO DAILY Qty: 30 RF: 0 Discharge Orders: Discharge Order (Routine); Ordered 08/02/21 Ordered By: Zo Jang/Other Patient Handouts: Managing Type 2 Diabetes Admission Data Admit Date/Time: 07/27/21 23:22 Attending Provider: Zo Trevino Admit Provider: Marcos Chavez Primary Care Provider: Comfort Almanzar Other Providers: Geno Jackson ; Marcos Chavez ; Phyllis Bal ; Luiza Multani ; Rosanna Velasquez ; Krys Sabillon ; Maximus Kincaid ; Maria Esther Rojo ; Marissa Milian ; Lew Crawford ; Karishma Trujillo ; Haily Hernandez ; Vivienne Londono ; Sanam Merino ; Susan Sherwood
== END 2021-08-02 15:13 | disposition home or self-care (01) ==
LOC: ED 19:04 → INTOOBSV 23:22 → SUATTDRO 23:22 → 2N 07-28 00:45